=== PATIENT | male | born 1940 | race Caucasian/White ===

== ENCOUNTER 2022-11-05 07:51 | Outpatient (OUT) | payer MEDICARE, SELFPAY ==
[2022-11-05 08:14] LABS: Basophils Absolute Auto 0.1 10^3/uL (0.0-0.1); Basophils Percent Auto 0.8 % (0.2-2.0); Eosinophils Absolute Auto 0.4 10^3/uL (0.0-0.7); Eosinophils Percent Auto 5.4 % (0.9-7.0); Hemoglobin 12.1 g/dL (14.0-18.0); Immature Granulocytes Abs Auto 0.03 10^3/uL (0.00-0.03); Immature Granulocytes Pct Auto 0.4 % (0.0-0.5); Lymphocytes Percent Auto 26.7 % (20.5-60.0); Mean Corpuscular HGB Conc 33.6 g/dL (29.9-35.2); Mean Corpuscular Hemoglobin 31.4 pg (25.9-34.0); Mean Corpuscular Volume 93.5 fL (80.0-94.0); Monocytes Absolute Auto 0.6 10^3/uL (0.3-0.8); Monocytes Percent Auto 7.5 % (1.7-12.0); Neutrophils Absolute Auto 4.5 10^3/uL (1.4-6.5); Neutrophils Percent Auto 59.2 % (43.0-75.0); Platelet Count 178 10^3/uL (150-450); Red Blood Count 3.85 10^6/uL (4.70-6.10); Red Cell Distribution Width 13.2 % (11.0-15.0); White Blood Count 7.7 10^3/uL (4.0-11.0)
[2022-11-05 08:53] LABS: Creatinine Urine Random 271.12 mg/dL (20.00-300.00); Microalbum Creatinine Ratio Ur 33.9 mg/g (0.0-29.9); Microalbumin Urine Random 9.2 mg/dL (<=30.0)
[2022-11-05 09:01] LABS: Estimated Average Glucose 160 mg/dL; Glycohemoglobin A1C 7.2 % (4.5-6.2)
[2022-11-05 10:29] LABS: Alanine Aminotransferase 19 U/L (16-63); Albumin Level 3.6 g/dL (3.4-5.0); Alkaline Phosphatase 70 U/L (46-116); Aspartate Amino Transferase 19 U/L (15-37); BUN Creatinine Ratio 19.6; Bilirubin Total 0.5 mg/dL (0.2-1.0); Calcium 9.4 mg/dL (8.5-10.1); Carbon Dioxide 25.1 mmol/L (21.0-32.0); Chloride 105 mmol/L (98-107); Chol HDL Ratio 2.3; Cholesterol 154 mg/dL (<=200); Estimated GFR (African America 60 (>=60); Estimated GFR (Non-African Ame 49 (>=60); Globulin 3.7 g/dL; Glucose 183 mg/dL (74-106); HDL Cholesterol 66 mg/dL (40-60); Potassium 4.1 mmol/L (3.5-5.1); Sodium 140 mmol/L (136-145); Total Protein 7.3 g/dL (6.4-8.2); Triglycerides 126 mg/dL (<=150); VLDL CHOLESTEROL 25.2 mg/dL
== END 2022-11-05 07:52 ==
LOC: LAB 07:56
PROVIDERS: PCP Internal Medicine; Visit Provider Internal Medicine
DX: E11.69 Type 2 diabetes mellitus with other specified complication (principal); E78.5 Hyperlipidemia, unspecified; I10 Essential (primary) hypertension
CPT/HCPCS: 36415; 80053; 80061; 82043; 82570; 83036; 85025

== ENCOUNTER 2022-11-19 07:58 | Outpatient (OUT) | payer MEDICARE, SELFPAY ==
[2022-11-19 08:56] LABS: Erythrocyte Sedimentation Rate 15 mm/hr (<=20)
[2022-11-19 09:25] LABS: Thyroid Stimulating Hormone 1.196 uIU/mL (0.358-3.740)
[2022-11-19 09:27] LABS: C Reactive Protein <0.2 mg/dL (<=1.0)
[2022-11-20 05:07] LABS: HIV Ab/p24 Ag Screen Non Reactive (Non Reactive)
[2022-11-22 20:07] LABS: Calprotectin, Fecal 9 ug/g (0-120)
[2022-11-27 15:08] LABS: Ova + Parasite Exam Final report (.)
== END 2022-11-19 07:59 | disposition home or self-care (01) ==
LOC: LAB 07:59
PROVIDERS: PCP Internal Medicine
DX: R19.4 Change in bowel habit (principal)
CPT/HCPCS: 36415; 83993; 84443; 85652; 86140; 87045; 87046; 87177; 87209; 87389; 87427; 87493

== ENCOUNTER 2023-05-06 08:28 | Outpatient (OUT) | payer MEDICARE, SELFPAY ==
[2023-05-06 08:56] LABS: Basophils Absolute Auto 0.1 10^3/uL (0.0-0.1); Basophils Percent Auto 1.2 % (0.2-2.0); Eosinophils Absolute Auto 0.4 10^3/uL (0.0-0.7); Eosinophils Percent Auto 4.6 % (0.9-7.0); Hematocrit 37.3 % (42.0-54.0); Immature Granulocytes Abs Auto 0.04 10^3/uL (0.00-0.03); Immature Granulocytes Pct Auto 0.5 % (0.0-0.5); Lymphocytes Absolute Auto 2.3 10^3/uL (1.2-3.8); Mean Corpuscular HGB Conc 32.2 g/dL (29.9-35.2); Mean Corpuscular Hemoglobin 30.5 pg (25.9-34.0); Mean Corpuscular Volume 94.7 fL (80.0-94.0); Mean Platelet Volume 10.3 fL (9.5-13.5); Monocytes Absolute Auto 0.6 10^3/uL (0.3-0.8); Monocytes Percent Auto 7.3 % (1.7-12.0); Neutrophils Absolute Auto 4.5 10^3/uL (1.4-6.5); Neutrophils Percent Auto 57.4 % (43.0-75.0); Platelet Count 208 10^3/uL (150-450); Red Blood Count 3.94 10^6/uL (4.70-6.10); Red Cell Distribution Width 13.1 % (11.0-15.0); White Blood Count 7.8 10^3/uL (4.0-11.0)
[2023-05-06 09:13] LABS: Estimated Average Glucose 166 mg/dL; Glycohemoglobin A1C 7.4 % (4.5-6.2)
[2023-05-06 09:29] LABS: Alanine Aminotransferase 19 U/L (16-63); Albumin Globulin Ratio 1.1; Albumin Level 3.5 g/dL (3.4-5.0); Alkaline Phosphatase 73 U/L (46-116); Anion Gap 13.3; Aspartate Amino Transferase 16 U/L (15-37); Bilirubin Total 0.5 mg/dL (0.2-1.0); Calcium 8.5 mg/dL (8.5-10.1); Carbon Dioxide 27.9 mmol/L (21.0-32.0); Chloride 108 mmol/L (98-107); Chol HDL Ratio 2.4; Cholesterol 154 mg/dL (<=200); Estimated GFR (African America >60 (>=60); Estimated GFR (Non-African Ame 52 (>=60); Globulin 3.1 g/dL; Glucose 174 mg/dL (74-106); HDL Cholesterol 63 mg/dL (40-60); Potassium 4.2 mmol/L (3.5-5.1); Sodium 145 mmol/L (136-145); Thyroid Stimulating Hormone 1.148 uIU/mL (0.358-3.740); Total Protein 6.6 g/dL (6.4-8.2); Triglycerides 115 mg/dL (<=150)
== END 2023-05-06 08:29 | disposition home or self-care (01) ==
LOC: LAB 08:30
PROVIDERS: PCP Internal Medicine; Visit Provider Nurse Practitioner Adult Health
DX: C61 Malignant neoplasm of prostate (principal); N18.31 Chronic kidney disease, stage 3a; D50.9 Iron deficiency anemia, unspecified; I12.9 Hypertensive chronic kidney disease with stage 1 through stage 4 chronic kidney disease, or unspecified chronic kidney disease; E11.69 Type 2 diabetes mellitus with other specified complication
CPT/HCPCS: 36415; 80053; 80061; 83036; 84443; 85025; G0103

== ENCOUNTER 2023-05-06 08:31 | Outpatient (OUT) | payer MEDICARE, SELFPAY ==
[2023-05-06 10:02] LABS: Prostate Specific Antigen Scrn 0.57 ng/mL (<=4.00)
== END 2023-05-06 08:32 | disposition home or self-care (01) ==
PROVIDERS: PCP Internal Medicine
DX: C61 Malignant neoplasm of prostate (principal)
CPT/HCPCS: 36415; G0103

== ENCOUNTER 2023-06-14 14:06 | Outpatient (OUT) | payer MEDICARE, SELFPAY ==
[2023-06-14 15:06] LABS: Prostate Specific Antigen Dx 0.81 ng/mL (<=4.00)
== END 2023-06-14 14:07 | disposition home or self-care (01) ==
LOC: LAB 14:10
PROVIDERS: PCP Internal Medicine
DX: C61 Malignant neoplasm of prostate (principal)
CPT/HCPCS: 36415; 84153

== ENCOUNTER 2023-09-29 16:34 | Emergency (ER) | payer MEDICARE, SELFPAY ==
[2023-09-29] VITALS (16 sets, daily range): BP systolic 179; BP diastolic 99; PULSE 55–92; TEMP 36.7; O2SAT 92–98; BMI 23.7
--- OUTSIDE RECORDS SUMMARY | 2023-09-29 16:49 | XMS_ITS | CCD ---
Author Organization [facility] Care Team Providers Care Slasher Name Role Phone Gabriel Bello Primary Care Provider Ryan Negron Attending Provider Gabriel Bello Unavailable Unavailable Unavailable DO Gabriel Bello Primary Care Provider DO Juan Ventura Attending Provider Dr. Gabriel Bello [facility] Primary Care Unabambii ramani Camp II, Dr. Dev Black Attending Unavailable [facility], Dr. Dev Balck Referring Unavailable MISC, DR SHERIFF Attending Unavailable MISC, DR SHERIFF Consulting Unavailable MISC, DR SHERIFF Admitting Unavailable DR GABRIEL BELLO Primary Care Unavailable DR GABRIEL BELLO Primary Care Unavailable DR GABRIEL BELLO Admitting Unavailable DR GABRIEL BELLO Attending Unavailable DR GABRIEL BELLO Consulting Unavailable DR GABRIEL BELLO Primary Care Unavailable MISC, DR SHERIFF Admitting Unavailable MISC, DR SHERIFF Attending Unavailable MISC, DR SHERIFF Consulting Unavailable DR GABRIEL BELLO Primary Care Unavailable DR GABRIEL BELLO Admitting Unavailable DR GABRIEL BELLO Attending Unavailable DR GABRIEL BELLO Consulting Unavailable DR GABRIEL BELLO Admitting Unavailable DR GABRIEL BELLO Attending Unavailable DR GABRIEL BELLO Consulting Unavailable DR GABRIEL BELLO Primary Care Unavailable Jj Garcia Unavailable DO Gabriel Bello Primary Care Provider MD Jj Garcia Attending Provider CHRIS PATEL Attending Unavailable LAURA BARROW Attending Unavailable GABRIEL BELLO Attending Unavailable Gabriel Bello DO Primary Care Provider DEV CAMP Attending Unavailable GABRIEL BELLO Primary Care Unavailable DO Gabriel Bello Primary Care Provider NON STAFF Attending Provider Unavailable Asaad, Imad Attending Unavailable Gabriel Bello Primary Care Unavailable Asaad, Imad Admitting Unavailable Miller Donald Admitting Unavailable Miller Donald Attending Unavailable Gabriel Bello Primary Care Unavailable Asaad, Imad Admitting Unavailable Asaad, Imad Attending Unavailable Gabriel Bello Primary Care Unavailable Unavailable Unavailable Unavailable Allergies Allergy Classification Reported Allergen(s) Allergy Type Date of Onset Reaction(s) Facility (4 sources) Sulfonamides (Antibiotic); Translations: [Sulfa Drugs] Allergy to drug (finding) [facility] 250 DO Work Phone: (5 sources) Sulfonamides (Antibiotic); Translations: [SULFA (SULFONAMIDE ANTIBIOTICS)] Allergy to substance 2 [facility] (1 source) Sulfonamides (Antibiotic) Drug allergy (disorder) [facility] (2 sources) Substance with sulfonamide structure and antibacterial mechanism of action (substance) Drug allergy Unknown [facility] [employer] Other Medications Current Medications Medication Drug Class(es) Dates Sig (Normalized) Sig (Original) amylase 160675 unt / lipase 97003 unt / protease 95211 unt delayed release oral capsule (3 sources) Start: 11-17-2022 take 1 capsule by mouth three times daily at mealtime uuyavi-krtvqixc-vk ylase (Creon) 24,000-76,000 -120,000 unit capsule Take 1 capsule by mouth 3 times a day with meals. 0 11/17/2022 Active Start: 11-17-2022 Creon 90761-19 000 UNIT 1 with each meal Orally daily for 30 days Oct, Active ascorbic acid 500 mg oral capsule (4 sources) Vitamin C take 1 capsule by mouth once daily ascorbic acid, vitamin C, 500 mg capsule Take 1 capsule by mouth once daily. 0 Active atorvastatin 10 mg oral tablet (9 sources) HMG-CoA Reductase Inhibitor Start: 2 take 10 mg by mouth once daily at bedtime Atorvastatin Active 10 MG PO Daily at bedtime December 05, 2021 12:00am Start: 07-03-2020 take 0.5 tablet by m outh once daily atorvastatin (Lipitor) 20 mg tablet Take 0.5 tablets (10 mg) by mouth once daily. 0 07/03/2020 Active Atorvastatin Andrea cium 20 MG Oral for 90 Days Active Bacillus coagulans / Inulin (1 source) End: 07-13-2023 take 1 capsule by mouth once daily BACILLUS COAGULANS-INULIN ORAL Take 1 capsule by mouth once daily. 0 07/13/2023 Discontinued (Therapy completed) cholecalciferol 0.05 mg oral tablet (7 sources) Vitamin D Start: 12-05-2021 take 1 tablet by mouth three times weekly Cholecalciferol (Vitamin D3) (Vitamin D3) 50 mcg (2,000 unit) Tablet Active 50 MCG PO 3 Times a week December 05, 2021 12:00am take 1 capsule by mouth once aristides ly cholecalciferol (Vitamin D-3) 25 MCG (1000 UT) capsule Take 1 capsule (25 mcg) by mouth once daily. 0 Active dicyclomine hydrochloride 10 mg oral capsule (6 sources) Anticholinergic Start: 11-13-2020 take 1 capsule by mouth once daily dicyclomine (Bentyl) 10 mg capsule Take 1 capsule (10 mg) by mouth once daily. 0 11/13/2020 Active fluorouracil 50 mg/ml topical cream (2 sources) Nucleoside Metabolic Inhibitor Efudex 5 % 1 application Externally Twice a day Active lisinopril 20 mg oral tablet (9 sources) Angiotensin Converting Enzyme Inhibitor Start: 02-11-2021 take 20 mg by mouth once daily at bedtime Lisinopril Active 20 MG PO Daily at bedtime December 05, 2021 12:00am metFORMIN hydrochloride 500 mg oral tablet (6 sources) Biguanide Start: 07-05-2020 take 1 tablet by mouth once daily metFORMIN (Glucophage) 500 mg tablet Take 1 tablet (500 mg) by mouth once daily. 0 07/05/2020 Active 24 hr metoprolol succinate 50 mg extended release oral tablet (10 sources) beta-Adrenergic Allyn Start: 07-13-2023 End: 07-12-2024 take 1 tablet by mouth once daily metoprolol succinate XL (Toprol-XL) 50 mg 24 hr tablet Indications: Paroxysmal atrial fibrillation (CMS/HCC) Take 1 tablet (50 mg) by mouth once daily. Do not crush or chew. 90 tablet 3 07/13/2023 07/12/2024 Active Start: 02-24-2021 End: 07-13-2023 take 100 mg by mouth once daily in the morning Metoprolol Succinate Active 100 MG PO Every morning December 05, 2021 12:00am mirtazapine 15 mg oral tablet (9 sources) Start: 05-14-2021 take 15 mg by mouth once daily at bedtime Mirtazapine Active 15 MG PO Daily at bedtime December 05, 2021 12:00am polyethylene glycol 3350 981342 mg / potassium chloride 2970 mg / sodium bicarbonate 6740 mg / sodium chloride 5860 mg / sodium sulfate 91046 mg powder for oral solution (2 sources) Osmotic Laxative Start: 11-17-2022 take 236 g by mouth once Golytely 236 GM as directed Orally once for 1 days Oct, Active rivaroxaban 20 mg oral tablet (10 sources) Factor Xa Inhibitor Start: 03-05-2021 End: 05-27-2024 take 1 tablet by mouth once daily rivaroxaban (Xarelto) 20 mg tablet Indications: Paroxysmal atrial fibrillation (CMS/HCC) Take 1 tablet (20 mg) by mouth once daily. 90 tablet 3 05/28/2023 05/27/2024 Active vit A/vit C/vit E/zinc/copper (ICAPS AREDS ORAL) (1 source) vit A/vit C/vit E/zinc/copper (ICAPS AREDS ORAL) Take 1 tablet by mouth see administration instructions. 0 Active Vit C,Z-Td-Dlapz-Lutein -Zeaxan (Preservision Areds-2) 250-90-40-1 mg Capsule (3 sources) Start: 12-05-2021 Vit C,E-Gw-Fhclr-Lutein- Zeaxan (Preservision Areds-2) 250-90-40-1 mg Capsule Active 1 TAB PO Every morning December 05, 2021 12:47pm Start: 12-05-2021 Vit C,E-Zn-Harpoon Engagement Planning Operator am-Iwdcwb-Dlowqv (Preservision Areds-2) 250-90-40-1 mg Capsule Active 1 TAB PO Every morning December 05, 2021 12:00am vitamin b12 1 mg oral tablet (3 sources) Vitamin B12 take 1 tablet by mouth once daily cyanocobalamin (Vitamin B-12) 1,000 mcg tablet Take 1 tablet (1,000 mcg) by mouth once daily. 0 Active Completed/Discontinued Medications Medication Drug Class(es) Dates Sig (Normalized) Sig (Original) acetaminophen 325 mg / HYDROcodone bitartrate 5 mg oral tablet (2 sources) Opioid Agonist Start: 12-08-2021 End: 12-24-2022 take 1 tablet by mouth every eight hours Hydrocodone-Acetam inophen Discontinued 1 TAB PO Q8H 14 December 08, 2021 December 24, 2022 11:27am ascorbic acid 226 mg / beta carotene 86715 unt / cuprous oxide 0.8 mg / dl-alpha tocopheryl acetate 200 unt / zinc oxide 34.8 mg oral capsule (3 sources) Vitamin C PreserVision ARE DS Oral Capsule TAKE DIRECTED. Quantity: 0 Refills: 0 Ordered: 03-Jul-2021 DO Active cephalexin 500 mg oral capsule (5 sources) Cephalosporin Antibacterial Start: 12-08-2021 End: 12-24-2022 take 500 mg by mouth every eight hours Cephalexin Discontinued 500 MG PO Q8H 21 December 08, 2021 12:00am December 24, 2022 11:26am Start: 12-05-2021 End: 12-24-2022 take 500 mg by mouth twice daily Cephalexin Discontinued 500 MG PO Twice daily December 05, 2021 12:00am December 24, 2022 11:26am Probiotic CAPS (2 sources) Probiotic CAPS T DONYA 1 CAPSULE Daily Quantity: 0 Refills: 0 Ordered: 03-Jul-2021 DO Active Problems Active Problems Problem Classification Problem Date Documented Da te Episodic/Chronic Abdominal pain (1 source) Left lower quadrant abdominal tenderness; Translations: [LLQ ABDOMINAL TENDERNESS] Onset: 09-09-2022 Episodic Cancer of prostate (5 sources) Malignant neoplasm of prostate; Translations: [MALIGNANT NEOPLASM OF PROSTATE] Onset: 05-25-2022 Chronic Cardiac dysrhythmias (16 sources) Paroxysmal atrial fibrillation; Translations: [Atrial fibrillation] Onset: 05-06-2022 Chronic Chronic kidney disease (2 sources) Chronic kidney disease stage 3A ; Translations: [Stage 3a chronic kidney disease] Chronic Deficiency and other anemia (1 source) Anemia, unspecified; Translations: [ANEMIA UNSPECIFIED] Onset: 09-09-2022 Episodic Deficiency and other anemia (2 sources) Anemia; Translations: [Anemia, unspecified] Episodic Diabetes mellitus with complications (5 sources) Type 2 diabetes mellitus with other specified complication; Translations: [TYPE 2 DM W/OTHER SPEC COMPLICATION] Onset: 05-10-2022 Chronic Diabetes mellitus without complication (4 sources) Diabetes mellitus; Translations: [Diabetes mellitus without mention of complication, type II or unspecified type, not stated as uncontrolled] Onset: 05-28-2023 05-28-2023 Chronic Disorders of lipid metabolism (10 sources) Hyperlipidemia; Translations: [Other and unspecified hyperlipidemia] Onset: 05-10-2022 07-13-2023 Chronic Diverticulosis and diverticulitis (4 sources) Diverticulosis of intestine, part unspecified, without perforation or abscess without bleeding; Translations: [Diverticular disease of colon] Onset: 09-09-2022 Chronic Essential hypertension (8 sources) Benign essential hypertension; Translations: [Benign essential hypertension] Onset: 05-10-2022 07-13-2023 Chronic Miscellaneous mental health disorders (2 sources) Acute insomnia; Translations: [Adjustment insomnia] Episodic Mood disorders (2 sources) Major depressive disorder, single episode, unspecified; Translations: [Depression] Chronic Other aftercare (6 sources) Drug therapy finding; Translations: [Long-term (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 of anticoagulants] Episodic Other gastrointestinal disorders (2 sources) Irritable bowel syndrome; Translations: [Irritable bowel syndrome without diarrhea] Chronic Other gastrointestinal disorders (1 source) Irritable bowel syndrome without diarrhea Chronic Other gastrointestinal disorders (1 source) Other fecal abnormalities; Translations: [OTHER FECAL ABNORMALITIES] Onset: 09-09-2022 Episodic Other gastrointestinal disorders (2 sources) Altered bowel function; Translations: [Change in bowel habit] Episodic Other nervous system disorders (2 sources) Postoperative pain ; Translations: [Other acute postprocedural pain] 12-08-2021 Episodic Other non-epithelial cancer of skin (6 sources) 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; Translations: [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] Episodic Other nutritional; endocrine; and metabolic disorders (2 sources) Fat pad syndrome; 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 Other nutritional; endocrine; and metabolic disorders (3 sources) Overweight; Translations: [Overweight] Episodic Residual codes; unclassified (3 sources) Body mass index 20-24 - normal; Translations: [Body Mass Index between 19-24, adult] Episodic Screening and history of mental health and substance abuse codes (4 sources) Ex-smoker; Translations: [Personal history of nicotine dependence] Onset: 07-13-2023 07-13-2023 Episodic Unclassified (1 source) Diarrhea, unspecified; Translations: [Diarrhea, unspecified] Onset: 12-24-2022 Past or Other Problems Problem Classification Problem Date Documented Da te Episodic/Chronic Other aftercare (1 source) Other correction (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; Translations: [OTH CARD ROOM MANAGER CURRENT DRUG THERAPY] Onset: 11-06-2021 Episodic Other gastrointestinal disorders (3 sources) Change in bowel habit; Translations: [CHANGE IN BOWEL HABIT] Onset: 09-09-2022 Episodic Pancreatic disorders (not diabetes) (2 sources) Other specified diseases of pancreas; Translations: [Other specified diseases of pancreas] Onset: 11-26-2022 Episodic Unclassified (3 sources) Never smoked tobacco; Translations: [Never a smoker] Unclassified (1 source) Onset: 07-13-2023 07-13-2023 Results Test Name Value Interpretation Reference Range Facility PET psma initial tx sb-mton 09-13-2023 PET psma initial tx sb-mt [facility] [place] [place] [address] Nuclear Medicine Report Signed Patient: Dev Walsh MR#: [id number] 906 : 1940 Acct:[id number] Age/Sex: 83 / M ADM Date: 09/13/23 Loc: Room: Type: [facility] Attending Dr: SYLWIA STAFF Copies to: NON STAFF Jordan Story II, MD Ordering Provider: NON STAFF Date of Service: 09/13/23 PET/PET psma initial tx sb-mt: PROSTATE CA PET psma initial tx sb-mt 09/13/2023 1:11 PM SIGNS AND SYMPTOMS: PROSTATE CA PROTOCOL: PET images were obtained from skull base to mid thigh after intravenous radiotracer administration. Low-dose CT images were obtained from skull base to mid thigh. After attenuation correction of PET images, fused PET CT images were generated and reconstructed in axial, sagittal, and coronal planes. COMPARISON: None. RADIOPHARMACEUTICAL: 10.32 mCi of intravenous fluorine 18 PSMA Pylarify FINDINGS: There is a focus of increased radiotracer accumulation within the posterior aspect of the left eighth rib. There is increased radiotracer accumulation focally within the posterior elements of the L3 vertebral body on the right probably affecting the facets. There is focal increased radiotracer accumulation within the L5 vertebral body laterally on the right. There is subtle abnormal radiotracer accumulation in the posterior right iliac spine. These lesions predominantly correspond to sclerotic foci seen on the low-dose CT. There is physiologic radiotracer accumulation in the salivary glands, liver, spleen, kidneys, bladder, and bowel. 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 These correspond to sclerotic foci seen on the low-dose CT. There is subtle abnormal radiotracer accumulation in the posterior right iliac spine. This may represent subtle metastatic disease. No accompanying sclerotic focus is identified. Impression dictated by: Jordan Story M.D.09/13/2023 3:20 PM Dictation Location: [place] [address] Transcribed By: [facility] 09/13/23 1520 Dictated By: Jordan Story II, MD 09/13/23 1515 Signed By: 09/13/23 1520 Normal [facility] ECG 12 [place] 07-13-2023 Sinus rhythm with frequent PVCs Otherwise normal EKG QTc 444 ms [facility] Work Phone: Joni 12-24-2022 L Specimen: [id number] Received: 12/24/22 Status: DEONDRE Lewis Num: [id number] Spec Type: Surgical Subm Dr: Jj Garcia MD Tissues: A Colon Biopsy (RANDOM COLON) B Colon Biopsy (ASCENDING POLYP) Procedures: HE/4, Gross/Micro L4/2 Age/ Patient Sex Location Account Attending Physician Dev Walsh /[facility] [id number] Jj Garcia MD SPEC NUM: [id number] RECD: 12/24/22 STATUS: DEONDRE MAC NUM: [id number] JARRET: 12/24/22- SUBM DR: Jj Garcia MD ENTERED: 12/24/22 [facility] DR: SPEC TYPE: Surgical DEPT: S ORDERED: HE/4, Gross/Micro L4/2 ORDERED: HE4, Gross/Micro L4/2 Pathological Diagnosis A. Colon, random biopsy: - Colonic mucosa within normal limits - No evidence of microscopic colitis identified B. Colon, ascending, polyp, biopsy: - Inflamed hyperplastic polyp (inflammatory polyp) Clinical Information Change in bowel habits, rule out microscopic colitis Gross Description A. Received in formalin labeled with the patient's name, date of and random colon are two leonardo tissues averaging 0.4 x 0.2 x 0.2 cm. Entirely submitted in one cassette labeled A1. B. Received in formalin labeled with the patient's name, date of and ascending polyp is one leonardo tissue measuring 0.3 x 0.3 x 0.1 cm. Entirely submitted in one cassette labeled B1. Specimen: [id number] Received: 12/24/22 Status: DEONDRE Lewis Num: [id number] Spec Type: Surgical Subm Dr: Jj Garcia MD Tissues: A Colon Biopsy (RANDOM COLON) B Colon Biopsy (ASCENDING POLYP) Procedures: HE/4, Gross/Micro L4/2 Patient: Dev Walsh [id number] (Continued) Specimen: [id number] Received: 12/24/22 (Continued) Signed (signature on file) Natan Davidson MD 12/29/22 1658 Specimen: [id number] Received: 12/24/22 Status: DEONDRE Lewis Num: [id number] Spec Type: Surgical Subm Dr: Jj Garcia MD Tissues: A Colon Biopsy (RANDOM COLON) B Colon Biopsy (ASCENDING POLYP) Procedures: HE/Catherine, Gross/Micro L4/2 Patient: Dev Walsh [id number] (Continued) Specimen: [id number] Received: 12/24/22 (Continued) Microscopic Description A. Two H E slides reviewed. The microscopic examination confirms the diagnosis. B. Two H E slides reviewed. The microscopic examination confirms the diagnosis. CPT Codes 36732s5 Specimen: [id number] Received: 12/24/22 Status: DEONDRE Lewis Num: [id number] Spec Type: Surgical Subm Dr: Jj Garcia MD Tissues: A Colon Biopsy (RANDOM COLON) B Colon Biopsy (ASCENDING POLYP) Procedures: HEATHER/Catherine, Gross/Micro L4/2 Patient: Dev Walsh [id number] (Continued) Signed (signature on file) Natan Davidson MD 12/29/22 4046 Normal [facility] Blood Urea Nitrogenon 2022 Urea nitrogen [Mass/Vol] 31 mg/dL High 7-25 [facility] Comment on above: Order Comment: Reaso n for Exam Change in bowel habits Performed By: #### T MICHAEL CORREIA CREAT #### [facility] [address] [place], [place] [id number] [facility] C reactive protein [Mass/vol ume] in Serum or PlasmaOrdered By: Jj Garcia on 11-26-2022 CRP [Mass/Vol] < 0.5 mg/dL 0.0-0.5 [facility] C-Reactive Proteinon 023 CRP [Mass/Vol] mg/L Normal 0.0-0.5 [facility] Comment on above: Order Comment: Reaso n for Exam Change in bowel habits Result Comment: PERF ORMED BY: [place] [address] PATHOLOGIST CAT WAGON OPERATOR WILMA MANTILLA M.D. Performed By: #### C RP, ESR #### [address] #### HIV SCREEN #### [facility] , CT abdomen pelvis w conon CT abdomen pelvis w con [facility] Main [place] [address] [place] [address] CT Scan Report Signed Patient: Dev Walsh MR#: [id number] 906 : 1940 Acct:[id number] Age/Sex: 82 / M ADM Date: 11/26/22 Loc: [place] Room: Type: [facility] Attending Dr: Jj Garcia MD Copies to: Jj Garcia MD Ordering Provider: Jj Garcia MD Date of Service: 11/26/22 CT/CT abdomen pelvis w con: Pancreatic insufficiency CT ABDOMEN AND PELVIS WITH INTRAVENOUS CONTRAST: CLINICAL HISTORY: Pancreatic insufficiency. COMPARISON: None TECHNIQUE: Spiral images were obtained through the abdomen and pelvis following the administration of intravenous contrast. This CT exam was performed using one or more following dose reduction techniques: Automated exposure control, adjustment of the mA and/or kV according to patient size, or use of iterative reconstruction technique. FINDINGS: Lung Bases: [Bibasilar scarring.] Organs:Liver and splenic granulomas. Gallbladder portal vein adrenal glands appear unremarkable. Pancreas appears atrophic without focal abnormality or evidence of acute pancreatitis. Cystic changes right kidney. Left kidney appears grossly unremarkable. Abdominal aorta is normal in caliber. GI: Stomach is grossly unremarkable. Small bowel appears nondilated. Sigmoid diverticulosis.[ Pelvis:[Prostatectom y changes. Urinary bladder is grossly unremarkable.] Streak artifact from a penile appliance is seen. Peritoneum/Retroperi toneum:No free air, free fluid or lymphadenopathy.[ Abd wall/Bones:Abdominal wall[demonstrates no acute findings. Osseous structures demonstrate degenerative change. CT/CT abdomen pelvis w con IMPRESSION: No acute findings. No suspicious pancreatic lesion is seen. Impression dictated by: Jered Mandujano Jr., DCassidyOCassidy11/26/2022 7:19 PM Dictation Location: [place] [address] Transcribed By: [facility] 11/26/221918 Dictated By: Jered Mandujano Jr, DO 11/26/221906 Signed By: 11/26/221918 Normal [facility] Creatinineon 11-26-2022 Creatinine [Mass/Vol] 1.55 mg/dL High 0.70-1.30 [facility] Comment on above: Order Comment: Reaso n for Exam Change in bowel habits Performed By: #### T SH3, BUN, CREAT #### [facility] [address] GFR/1.73 sq M.predicted MDRD (S/P/Bld) [Vol rate/Area] 43.863 mL/min/{1.73_m2} Normal [facility] Comment on above: Order Comment: Reaso n for Exam Change in bowel habits Performed By: #### T SH3, BUN, CREAT #### [facility] [address] [place] [address] Creatinine [Mass/volume] in Serum or PlasmaOrdered By: Gabriel Bello on 11-26-2022 Creatinine [Mass/Vol] 1.55 mg/dL 0.70-1.30 [facility] Erythrocyte Sedimentation Ra juli 11-26-2022 ESR (Bld) [Velocity] 18 mm/h Normal 0-19 [facility] Comment on above: Order Comment: Reaso n for Exam Change in bowel habits Result Comment: PERF ORMED BY: [place] [address] PATHOLOGIST CAT WAGON OPERATOR WILMA MANTILLA M.D. Performed By: #### C RP, ESR #### [address] #### HIV SCREEN #### [facility] , Erythrocyte sedimentation ra te by Photometric methodOrdered By: Jj Garcia on 11-26-2022 ESR Photometric method (Bld) [Velocity] 18 mm/hr 0-19 [facility] HIV 1/O/2 Antigen/Antibodyon 11-26-2022 HIV Screen 4th Generation Non-Reactive Normal Non Reactive [facility] Comment on above: Order Comment: Reaso n for Exam Change in bowel habits Result Comment: HIV Negative HIV-1/HIV-2 antibodies and HIV-1 p24 antigen were NOT detected. There is no laboratory evidence of HIV infection. Performed at: [facility] [id number] Brand Director: Miguel Cullen PhD, Phone: [phone] PERFORMED BY: [place] [address] PATHOLOGIST CAT WAGON OPERATOR WILMA MANTILLA M.D. Performed By: #### C RP, ESR #### [address] #### HIV SCREEN #### [facility] , No Panel InformationOrdered By: Gabriel Bello on 11-26-2022 Estimated GFR (CKD-EPI) 43.863 mL/Min [facility] Creatinine Clearance (Chem N/A [facility] Thyroid Stimulating Hormoneo n 11-26-2022 TSH Qn 1.23 m[IU]/L Normal 0.45-5.33 [facility] Comment on above: Order Comment: Reaso n for Exam Change in bowel habits Result Comment: PERF ORMED BY: [place] [address] PATHOLOGIST CAT WAGON OPERATOR WILMA MANTILLA M.D. Performed By: #### T SH3, BUN, CREAT #### [address] Thyrotropin [Units/volume] i n Serum or PlasmaOrdered By: Jj Garcia on 11-26-2022 TSH Qn 1.23 m[IU]/L 0.45-5.33 [facility] Urea nitrogen [Mass/volume] in Serum or PlasmaOrdered By: Gabriel Bello on 11-26-2022 Urea nitrogen [Mass/Vol] 31 mg/dL 7-25 [facility] PANCREATIC ELASTASE FECALon 09-08-2022 Pancreatic Elastase, Fecal 86 ug Elast./g Critically low >200 [facility] Comment on above: Result Comment: Re sults verified by repeat testing Severe Pancreatic Insufficiency: <100 Moderate Pancreatic Insufficiency: 100 - 200 Normal: >200 Performed By: #### L IPID, TSH, CMP #### [facility] [address] [place] [address] Dr. Leesa Urbina CELIAC ANTIBODIES PROFILEon 09-04-2022 Deamidated Gliadin Abs, IgA 8 units Normal 0-19 [facility] Comment on above: Result Comment: Nega tive 0 - 19 Weak Positive 20 - 30 Moderate to Strong Positive >30 Performed By: #### C ELIACP #### [facility] [address] [address] [address] Leesa Urbina Deamidated Gliadin Abs, IgG 4 units Normal 0-19 [facility] Comment on above: Result Comment: Nega tive 0 - 19 Weak Positive 20 - 30 Moderate to Strong Positive >30 Performed By: #### C ELIACP #### [facility] [address] [address] [address] Leesa Urbina Endomysial Antibody IgA Negative Normal Negative [facility] Comment on above: Performed By: #### C ELIACP #### [facility] [address] [address] [address] Leesa Urbina Immunoglobulin A, Qn, Serum 143 mg/dL Normal 61-437 [facility] Comment on above: Performed By: #### C ELIACP #### [facility] [address] [address] [address] Leesa Urbina t-Transglutaminase (tTG) IgA <2 Normal 0-3 [facility] Comment on above: Result Comment: Nega tive 0 - 3 Weak Positive 4 - 10 Positive >10 . Tissue Transglutaminase (tTG) has been identified as the endomysial antigen. Studies have demonstr- ated that endomysial IgA antibodies have over 99% specificity for gluten sensitive enteropathy. Performed By: #### C ELIACP #### [facility] [address] [place] [address] Dr. Leesa Urbina t-Transglutaminase (tTG) IgG 6 U/mL Critically high 0-5 [facility] Comment on above: Result Comment: Nega tive 0 - 5 Weak Positive 6 - 9 Positive >9 Performed By: #### C ELIACP #### [facility] [address] [place] [address] Dr. Leesa Urbina CBC AUTO DIFFon 09-03-2022 BASO # 0.1 103/ul Normal 0.0-0.1 [facility] Comment on above: Performed By: #### L IPID, TSH, CMP #### [facility] [address] [place] [address] Dr. Leesa Urbina Basophils/100 WBC (Bld) 1.1 % Normal 0.2-2.0 [facility] Comment on above: Performed By: #### L IPID, TSH, CMP #### [facility] [address] [place] [address] Dr. Leesa Urbina EO # 0.6 103/ul Normal 0.0-0.7 [facility] Comment on above: Performed By: #### L IPID, TSH, CMP #### [facility] [address] [place] [address] Dr. Leesa Urbina Eosinophils/100 WBC (Bld) 7.9 % Critically high 0.9-7.0 [facility] Comment on above: Performed By: #### L IPID, TSH, CMP #### [facility] [address] [place] [address] Dr. Leesa Urbina Erythrocyte distribution width (RBC) [Ratio] 13.6 % Normal 11.0-15.0 [facility] Comment on above: Performed By: #### L IPID, TSH, CMP #### [facility] [address] [address] [address] Leesa Urbina Hematocrit (Bld) [Volume fraction] 34.4 % Critically low 42.0-54.0 [facility] Comment on above: Performed By: #### L IPID, TSH, CMP #### [facility] [address] [place] [address] Dr. Leesa Urbina Hemoglobin (Bld) [Mass/Vol] 11.4 g/dL Critically low 14.0-18.0 [facility] Comment on above: Performed By: #### L IPID, TSH, CMP #### [facility] [address] [place] [address] Dr. Leesa Urbina IG # 0.02 10e3/ul Normal 0.00-0.03 [facility] Comment on above: Performed By: #### L IPID, TSH, CMP #### [facility] [address] [place] [address] Dr. Leesa Urbina IG % 0.3 % Normal 0.0-0.5 [facility] Comment on above: Performed By: #### L IPID, TSH, CMP #### [facility] [address] [place] [address] Dr. Leesa Urbina LYMPH # 2.1 103/ul Normal 1.2-3.8 [facility] Comment on above: Performed By: #### L IPID, TSH, CMP #### [facility] [address] [place] [address] Dr. Leesa Urbina Lymphocytes/100 WBC (Bld) 28.1 % Normal 20.5-60.0 [facility] Comment on above: Performed By: #### L IPID, TSH, CMP #### [facility] [address] [place] [address] Dr. Leesa Urbina MANUAL DIFF REQ NO Normal [facility] Comment on above: Performed By: #### L IPID, TSH, CMP #### [facility] [address] [place] [address] Dr. Leesa Urbina MCH (RBC) [Entitic mass] 31.1 pg Normal 25.9-34.0 [facility] Comment on above: Performed By: #### L IPID, TSH, CMP #### [facility] [address] [place] [address] Dr. Leesa Urbina MCHC (RBC) [Mass/Vol] 33.1 g/dL Normal 29.9-35.2 [facility] Comment on above: Performed By: #### L IPID, TSH, CMP #### [facility] [address] [place] [address] Dr. Leesa Urbina MCV (RBC) [Entitic vol] 93.7 fL Normal 80.0-94.0 [facility] Comment on above: Performed By: #### L IPID, TSH, CMP #### [facility] [address] [place] [address] Dr. Leesa Urbina MONO # 0.4 103/ul Normal 0.3-0.8 [facility] Comment on above: Performed By: #### L IPID, TSH, CMP #### [facility] [address] [place] [address] Dr. Leesa Urbina Monocytes/100 WBC (Bld) 6.0 % Normal 1.7-12.0 [facility] Comment on above: Performed By: #### L IPID, TSH, CMP #### [facility] [address] [place] [address] Dr. Leesa Urbina NEUT # 4.2 103/ul Normal 1.4-6.5 [facility] Comment on above: Performed By: #### L IPID, TSH, CMP #### [facility] [address] [place] [address] Dr. Leesa Urbina Neutrophils/100 WBC (Bld) 56.6 % Normal 43.0-75.0 [facility] Comment on above: Performed By: #### L IPID, TSH, CMP #### [facility] [address] [place] [address] Dr. Leesa Urbina Platelet mean volume (Bld) [Entitic vol] 10.1 fL Normal 9.5-13.5 [facility] Comment on above: Performed By: #### L IPID, TSH, CMP #### [facility] [address] [address] [address] Leesa Urbina PLT 195 103/ul Normal 150-450 [facility] Comment on above: Performed By: #### L IPID, TSH, CMP #### [facility] [address] [address] [address] Leesa Urbina RBC 3.67 106/ul Critically low 4.70-6.10 [facility] Comment on above: Performed By: #### L IPID, TSH, CMP #### [facility] [address] [address] [address] Leesa Urbina WBC 7.3 103/ul Normal 4.0-11.0 [facility] Comment on above: Performed By: #### L IPID, TSH, CMP #### [facility] [address] [place] [address] Dr. Leesa Urbina FERRITINon 09-03-2022 Ferritin [Mass/Vol] 44.0 ng/mL Normal 26.0-388.0 [facility] Comment on above: Performed By: #### F ERR, FETIBC #### [facility] [address] [address] [address] Leesa Urbina IRON AND TIBCon 09-03-2022 % SATURATION 23.5 % Normal [facility] Comment on above: Performed By: #### F ERR, FETIBC #### [facility] [address] [address] [address] Leesa Urbina Iron [Mass/Vol] 69.0 ug/dL Normal 65.0-175.0 [facility] Comment on above: Performed By: #### F ERR, FETIBC #### [facility] [address] [address] [address] Leesa Urbina TIBC DIRECT 294.0 ug/dL Normal 250.0-450.0 [facility] Comment on above: Performed By: #### F ERR, FETIBC #### [facility] [address] [address] [address] Leesa Urbina Office Visit (Cardiology)on 07-14-2022 Follow-up visit Diagnoses/Problems Assessed Anticoagulated (V58.61) (Z79.01) Benign essential hypertension (401.1) (I10) Hyperlipidemia (272.4) (E78.5) Paroxysmal atrial fibrillation (427.31) (I48.0) Diabetes mellitus (250.00) (E11.9) Body mass index (BMI) of 24.0 to 24.9 in adult (V85.1) (Z68.24) Never a smoker Orders SocHx: Never a smoker Tobacco Use Screening; Status:Complete; Done: [id number] Patient Instructions Please bring all medicines, vitamins, and herbal supplements with you when you come to the office. Prescriptions will not be filled unless you are compliant with your follow up appointments or have a follow up appointment scheduled as per instruction of your physician. Refills should be requested at the time of your visit. Follow up in 1 year. Chief Complaint DEV WALSH is being seen for an annual follow-up of. History of Present Illness walks 2 to 3 miles a day Patient returns in follow-up of problems as noted. He is doing well. He tolerates his paroxysmal atrial fibrillation very well and has no complaints related to his chronic 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. Blood pressure lipids and cholesterol appear to be adequately managed. Merits of maintaining ideal body weight and is favorable impact on his diabetes as well as hypertension were discussed and reviewed with him and he understands the recommendations and will continue his diet and exercise routine which appears to be excellent. In light of all the above we believe no adjustments in therapy are necessary and we suggest follow-up next year Surgical History Problems History of Appendectomy History of Cataract surgery History of Colonoscopy [id number] Dr Jovanny Yu History of Lip surgery History of Prostatectomy Past Medical History Problems History of Overweight (278.02) (E66.3) Current Meds Medication NameInstruction Atorvastatin Calcium 20 MG Oral TabletTAKE 1/2 TABLET DAILY. Dicyclomine HCl - 10 MG Oral CapsuleTAKE 1 CAPSULE Daily prn Lisinopril 20 MG Oral TabletTAKE 1 TABLET DAILY FOR BLOOD PRESSURE. metFORMIN HCl - 500 MG Oral TabletTAKE 1 TABLET DAILY. Metoprolol Succinate ER 100 MG Oral Tablet Extended Release 24 HourTAKE 1 TABLET DAILY. Mirtazapine 15 MG Oral TabletTAKE 1 TABLET AT BEDTIME. PreserVision AREDS Oral CapsuleTAKE DIRECTED. Vitamin C 500 MG Oral CapsuleTAKE 1 CAPSULE Daily Vitamin D3 25 MCG (1000 UT) Oral CapsuleTAKE DIRECTED. Xarelto 20 MG Oral TabletTake 1 tablet daily Allergies Medication Sulfa Drugs Adverse Reaction; Hives;; Updated By: Conchita Cazares; 05/23/2021 11:25:15 PM Social History Problems Consumes alcohol occasionally (V49.89) (Z78.9) 2-3 drinks a month Daily caffeine consumption, 1 serving a day Never a smoker No illicit drug use Review of Systems Constitutional: not feeling tired. Eyes: no eyesight problems. ENT: no hearing loss and no nosebleeds. Cardiovascular: no intermittent leg claudication and as noted in HPI. Respiratory: no chronic cough and no shortness of breath. Gastrointestinal: no change in bowel habits and no blood in stools. Genitourinary: no urinary frequency and no hematuria. Skin: no skin rashes. Neurological: no seizures and no frequent falls. Psychiatric: no depression and not suicidal. All other systems have been reviewed and are negative for complaint. Vitals Vital Signs Recorded: [id number] 09:08AM Heart Rate68, L Radial Hasflhkx310, LUE, Sitting Pfaxfqtps18, LUE, Sitting Height5 ft 11 in Gyeqlo416 lb BMI Kntoqzqsix13.13 kg/m2 BSA Calculated1.98 Tobacco Useb) No PHQ-2 #1. Over the last 2 weeks have you felt down, depressed or hopeless? (If yes, answer PHQ-9 below)No PHQ-2 #2. Over the last 2 weeks have you felt little interest or pleasure in doing things? (If yes, answer PHQ-9 below)No Falls Screening (Age 18+)a) No falls within the last year Physical Exam Constitutional: alert and in no acute distress. Eyes: no erythema, swelling or discharge from the eye . Neck: neck is supple, symmetric, trachea midline, no masses and no thyromegaly . Pulmonary: no increased work of breathing or signs of respiratory distress and lungs clear to auscultation. Cardiovascular: carotid pulses 2+ bilaterally with no bruit , JVP was normal, no thrills , regular rhythm, normal S1 and S2, no murmurs , pedal pulses 2+ bilaterally and no edema . Abdomen: abdomen non-tender, no masses and no hepatomegaly . Skin: skin warm and dry, normal skin turgor . Psychiatric judgment and insight is normal and oriented to person, place and time . Signatures Electronically signed by : Dev Camp MD; Jul 14 2022 10:20AM EST (Author) Normal [employer] Tobacco Screening.on 023 Adult depression screening assessment No [facility] 250 DO Work Phone: Fall risk assessment a) No falls within the last year [facility] 250 DO Work Phone: Tobacco use status [facility] b) No [facility] 250 DO Work Phone: CBC AUTO DIFFon 05-06-2022 BASO # 0.1 103/ul Normal 0.0-0.1 [facility] Comment on above: Performed By: #### C BC #### [facility] [address] [place] [address] Dr. Leesa Urbina Basophils/100 WBC (Bld) 1.4 % Normal 0.2-2.0 [facility] Comment on above: Performed By: #### C BC #### [facility] [address] [place] [address] Dr. Leesa Urbina EO # 0.4 103/ul Normal 0.0-0.7 [facility] Comment on above: Performed By: #### C BC #### [facility] [address] [place] [address] Dr. Leesa Urbina Eosinophils/100 WBC (Bld) 5.4 % Normal 0.9-7.0 [facility] Comment on above: Performed By: #### C BC #### [facility] [address] [place] [address] Dr. Leesa Urbina Erythrocyte distribution width (RBC) [Ratio] 13.3 % Normal 11.0-15.0 [facility] Comment on above: Performed By: #### C BC #### [facility] [address] [place] [address] Dr. Leesa Urbina Hematocrit (Bld) [Volume fraction] 35.8 % Critically low 42.0-54.0 [facility] Comment on above: Performed By: #### C BC #### [facility] [address] [place] [address] Dr. Leesa Urbina Hemoglobin (Bld) [Mass/Vol] 12.0 g/dL Critically low 14.0-18.0 [facility] Comment on above: Performed By: #### C BC #### [facility] [address] [place] [address] Dr. Leesa Urbina IG # 0.01 10e3/ul Normal 0.00-0.03 [facility] Comment on above: Performed By: #### C BC #### [facility] [address] [place] [address] Dr. Leesa Urbina IG % 0.2 % Normal 0.0-0.5 [facility] Comment on above: Performed By: #### C BC #### [facility] [address] [place] [address] Dr. Leesa Urbina LYMPH # 1.7 103/ul Normal 1.2-3.8 [facility] Comment on above: Performed By: #### C BC #### [facility] [address] [place] [address] Dr. Leesa Urbina Lymphocytes/100 WBC (Bld) 26.1 % Normal 20.5-60.0 [facility] Comment on above: Performed By: #### C BC #### [facility] [address] [place] [address] Dr. Leesa Urbina MANUAL DIFF REQ NO Normal [facility] Comment on above: Performed By: #### C BC #### [facility] [address] [place] [address] Dr. Leesa Urbina MCH (RBC) [Entitic mass] 31.0 pg Normal 25.9-34.0 [facility] Comment on above: Performed By: #### C BC #### [facility] [address] [place] [address] Dr. Leesa Urbina MCHC (RBC) [Mass/Vol] 33.5 g/dL Normal 29.9-35.2 [facility] Comment on above: Performed By: #### C BC #### [facility] [address] [address] [address] Leesa Urbina MCV (RBC) [Entitic vol] 92.5 fL Normal 80.0-94.0 [facility] Comment on above: Performed By: #### C BC #### [facility] [address] [place] [address] Dr. Leesa Urbina MONO # 0.4 103/ul Normal 0.3-0.8 [facility] Comment on above: Performed By: #### C BC #### [facility] [address] [place] [address] Dr. Leesa Urbina Monocytes/100 WBC (Bld) 6.5 % Normal 1.7-12.0 [facility] Comment on above: Performed By: #### C BC #### [facility] [address] [place] [address] Dr. Leesa Urbina NEUT # 4.0 103/ul Normal 1.4-6.5 [facility] Comment on above: Performed By: #### C BC #### [facility] [address] [place] [address] Dr. Leesa Urbina Neutrophils/100 WBC (Bld) 60.4 % Normal 43.0-75.0 [facility] Comment on above: Performed By: #### C BC #### [facility] [address] [place] [address] Dr. Leesa Urbina Platelet mean volume (Bld) [Entitic vol] 10.6 fL Normal 9.5-13.5 [facility] Comment on above: Performed By: #### C BC #### [facility] [address] [place] [address] Dr. Leesa Urbina PLT 185 103/ul Normal 150-450 [facility] Comment on above: Performed By: #### C BC #### [facility] [address] [place] [address] Dr. Leesa Urbina RBC 3.87 106/ul Critically low 4.70-6.10 [facility] Comment on above: Performed By: #### C BC #### [facility] [address] [place] [address] Dr. Leesa Urbina WBC 6.6 103/ul Normal 4.0-11.0 [facility] Comment on above: Performed By: #### C BC #### [facility] [address] [address] [address] Leesa Urbina GLYCOHEMOGLOBIN A1Con 2021 ADA RECOMMENDATION SEE BELOW Normal [facility] Comment on above: Result Comment: ADA RECOMMENDED LIMIT 4.0 - 6.0 ADA THERAPEUTIC TARGET < 7.0 ACTION SUGGESTED > 7.0 Performed By: #### A 1C #### [facility] [address] [address] [address] Leesa Urbina Glucose [Mass/Vol] 151 mg/dL Normal [facility] Comment on above: Performed By: #### A 1C #### [facility] [address] [place] [address] Dr. Leesa Urbina HbA1c (Bld) [Mass fraction] 6.9 % Critically high 4.5-6.2 [facility] Comment on above: Performed By: #### A 1C #### [facility] [address] [place] [address] Dr. Leesa Urbina LIPID PROFILEon 05-06-2022 CHOL-HDL RATIO NORM SEE BELOW Normal [facility] Comment on above: Result Comment: 3.3 - 4.4 LOW RISK 4.4 - 7.1 AVERAGE RISK 7.1 - 11.0 MODERATE RISK >11.0 HIGH RISK Performed By: #### L IPID, TSH, CMP #### [facility] [address] [place] [address] Dr. Leesa Urbina Cholesterol [Mass/Vol] 136 mg/dL Normal <=200 [facility] Comment on above: Performed By: #### L IPID, TSH, CMP #### [facility] [address] [place] [address] Dr. Leesa Urbina Cholesterol in HDL [Mass/Vol] 62 mg/dL Critically high 40-60 [facility] Comment on above: Performed By: #### L IPID, TSH, CMP #### [facility] [address] [address] [address] Leesa Urbina Cholesterol in LDL [Mass/Vol] 53.0 mg/dL Normal [facility] Comment on above: Performed By: #### L IPID, TSH, CMP #### [facility] [address] [address] [address] Leesa Urbina Cholesterol.total/Chol esterol in HDL [Mass ratio] 2.2 {ratio} Normal [facility] Comment on above: Performed By: #### L IPID, TSH, CMP #### [facility] [address] [address] [address] Leesa Urbina HDL NORMAL > or = 60 mg/dl - LOW CARDIOVASCULAR RISK <40 mg/dl - HIGH CARDIOVASCULAR RISK Normal [facility] Comment on above: Performed By: #### L IPID, TSH, CMP #### [facility] [address] [place] [address] Dr. Leesa Urbina LDL CALC NORMAL SEE BELOW Normal [facility] Comment on above: Result Comment: <100 mg/dl OPTIMAL 100 - 129 mg/dl NEAR OR ABOVE OPTIMAL 130 - 159 mg/dl BORDERLINE HIGH 160 - 189 mg/dl HIGH >190 mg/dl VERY HIGH Performed By: #### L IPID, TSH, CMP #### [facility] [address] [address] [address] Leesa Urbina Triglyceride [Mass/Vol] 105 mg/dL Normal <=150 [facility] Comment on above: Performed By: #### L IPID, TSH, CMP #### [facility] [address] [address] [address] Leesa Urbina VLDL CALC 21.0 mg/dL Normal [facility] Comment on above: Performed By: #### L IPID, TSH, CMP #### [facility] [address] [address] [address] Leesa Urbina PROF 14(COMP METB)on 022 Albumin [Mass/Vol] 3.4 g/dL Normal 3.4-5.0 [facility] Comment on above: Performed By: #### L IPID, TSH, CMP #### [facility] [address] [address] [address] Leesa Urbina Albumin/Globulin [Mass ratio] 1.1 {ratio} Normal [facility] Comment on above: Performed By: #### L IPID, TSH, CMP #### [facility] [address] [place] [address] Dr. Leesa Urbina ALP [Catalytic activity/Vol] 77 U/L Normal 46-116 [facility] Comment on above: Performed By: #### L IPID, TSH, CMP #### [facility] [address] [place] [address] Dr. Leesa Urbina ALT [Catalytic activity/Vol] 12 U/L Critically low 16-63 [facility] Comment on above: Performed By: #### L IPID, TSH, CMP #### [facility] [address] [place] [address] Dr. Leesa Urbina Anion gap [Moles/Vol] 12.7 mmol/L Normal [facility] Comment on above: Performed By: #### L IPID, TSH, CMP #### [facility] [address] [place] [address] Dr. Leesa Urbina AST [Catalytic activity/Vol] 19 U/L Normal 15-37 [facility] Comment on above: Performed By: #### L IPID, TSH, CMP #### [facility] [address] [place] [address] Dr. Leesa Urbina Bilirubin [Mass/Vol] 0.4 mg/dL Normal 0.2-1.0 [facility] Comment on above: Performed By: #### L IPID, TSH, CMP #### [facility] [address] [place] [address] Dr. Leesa Urbina Calcium [Mass/Vol] 8.5 mg/dL Normal 8.5-10.1 [facility] Comment on above: Performed By: #### L IPID, TSH, CMP #### [facility] [address] [place] [address] Dr. Leesa Urbina Chloride [Moles/Vol] 107 mmol/L Normal 98-107 [facility] Comment on above: Performed By: #### L IPID, TSH, CMP #### [facility] [address] [place] [address] Dr. Leesa Urbina CO2 [Moles/Vol] 27.4 mmol/L Normal 21.0-32.0 [facility] Comment on above: Performed By: #### L IPID, TSH, CMP #### [facility] [address] [address] [address] Leesa Urbina Creatinine [Mass/Vol] 1.06 mg/dL Normal 0.70-1.30 [facility] Comment on above: Performed By: #### L IPID, TSH, CMP #### [facility] [address] [address] [address] Leesa Urbina EGFR-AF [place]ER >60 Normal >=60 [facility] Comment on above: Performed By: #### L IPID, TSH, CMP #### [facility] [address] [address] [address] Leesa Urbina EGFR-NON AF [place]ER >60 Normal >=60 [facility] Comment on above: Performed By: #### L IPID, TSH, CMP #### [facility] [address] [address] [address] Leesa Urbina Globulin (S) [Mass/Vol] 3.1 g/dL Normal [facility] Comment on above: Performed By: #### L IPID, TSH, CMP #### [facility] [address] [address] [address] Leesa Urbina Glucose [Mass/Vol] 171 mg/dL Critically high 74-106 [facility] Comment on above: Performed By: #### L IPID, TSH, CMP #### [facility] [address] [address] [address] Leesa Urbina Potassium [Moles/Vol] 4.1 mmol/L Normal 3.5-5.1 [facility] Comment on above: Performed By: #### L IPID, TSH, CMP #### [facility] [address] [address] [address] Leesa Urbina Protein [Mass/Vol] 6.5 g/dL Normal 6.4-8.2 [facility] Comment on above: Performed By: #### L IPID, TSH, CMP #### [facility] [address] [place], [place] [address] Dr. Leesa Urbina Sodium [Moles/Vol] 143 mmol/L Normal 136-145 [facility] Comment on above: Performed By: #### L IPID, TSH, CMP #### [facility] [address] [address] [address] Leesa Urbina Urea nitrogen [Mass/Vol] 24.0 mg/dL Critically high 7.0-18.0 [facility] Comment on above: Performed By: #### L IPID, TSH, CMP #### [facility] [address] [address] [address] Leesa Urbina Urea nitrogen/Creatinine [Mass ratio] 22.6 mg/mg Normal [facility] Comment on above: Performed By: #### L IPID, TSH, CMP #### [facility] [address] [address] [address] Leesa Urbina Basophils Auto (Bld) [#/Vol] Ordered By: Juan Ventura on 12-05-2021 Basophils (Bld) [#/Vol] 0.1 10*3/uL 0.0-0.2 [facility] Basophils/100 WBC Auto (Bld) Ordered By: Juan Ventura on 12-05-2021 Basophils/100 WBC (Bld) 0.9 % [facility] Blood hemoglobin measurement (mass/volume)Ordered By: Juan Ventura on 12-05-2021 Hemoglobin (Bld) [Mass/Vol] 12.4 g/dL 13.0-17.0 [facility] Blood leukocytes automated c ount (number/volume)Ordered By: Juna Ventura on 12-05-2021 WBC (Bld) [#/Vol] 7.0 10*3/uL 4.5-11.0 [facility] COVID-19 Positive/NegativeOr dered By: Juan Ventura on 12-05-2021 SARS-CoV-2 (COVID-19) N gene RENETTA+probe Ql (Resp) Negative Negative [facility] Comment on above: Testing for SARS-CoV -2 by RT-PCR This test was developed and its performance characteristics determined by [employer] ([employer]) and validated at the [facility]. This test has not been FDA cleared or approved. This test has been authorized by FDA under an Emergency Use Authorization (EUA). This test has been validated in accordance with the FDA's Guidance Document (Policy for Diagnostics Testing in Laboratories Certified to Perform High Complexity Testing under CLIA prior to Emergency Use Authorization for Coronavirus Disease-2019 during the Public Health Emergency) issued on August 24, 2019. This test is only authorized for the duration of time the declaration that circumstances exist justifying the authorization of the emergency use of in vitro diagnostic tests for detection of SARS-CoV-2 virus and/or diagnosis of COVID-19 infection under section 564(b)(1) of the Act, 21 U.S.C. 360bbb-3(b)(1), unless the authorization is terminated or revoked sooner. Creatinine and Glomerular fi ltration rate.predicted panel (S/P/Bld)Ordered By: Juan Ventura on 12-05-2021 Creatinine [Mass/Vol] 1.28 mg/dL 0.64-1.27 [facility] Eosinophils Auto (Bld) [#/Vo l]Ordered By: Juan Ventura on 12-05-2021 Eosinophils (Bld) [#/Vol] 0.1 10*3/uL 0.0-0.45 [facility] Eosinophils/100 WBC Auto (Bl d)Ordered By: Juan Ventura on 12-05-2021 Eosinophils/100 WBC (Bld) 2.1 % [facility] Erythrocyte distribution wid th Auto (RBC) [Ratio]Ordered By: Juan Ventura on 12-05-2021 Erythrocyte distribution width (RBC) [Ratio] 14.6 % 12.0-14.8 [facility] Estimated glomerular filtrat ion rate (GFR) non- AmericanOrdered By: Juan Ventura on 12-05-2021 GFR/1.73 sq M.predicted among non-blacks MDRD (S/P/Bld) [Vol rate/Area] 54 mL/Min [facility] Hematocrit Auto (Bld) [Volum e fraction]Ordered By: Juan Ventura on 12-05-2021 Hematocrit (Bld) [Volume fraction] 37.3 % 38.8-50.0 [facility] - Hematology and Cell countsOrdered By: Juan Ventura on 12-05-2021 Nucleated RBC/100 WBC (Bld) [Ratio] 0.0 % 0-0.5 [facility] Lymphocytes Auto (Bld) [#/Vo l]Ordered By: Juan Ventura on 12-05-2021 Lymphocytes (Bld) [#/Vol] 1.4 10*3/uL 1.00-4.8 [facility] Lymphocytes/100 WBC Auto (Bl d)Ordered By: Juan Ventura on 12-05-2021 Lymphocytes/100 WBC (Bld) 19.8 % [facility] MCH Auto (RBC) [Entitic mass ]Ordered By: Juan Ventura on 12-05-2021 MCH (RBC) [Entitic mass] 30.8 pg 27.5-35.2 [facility] MCHC Auto (RBC) [Mass/Vol]Or dered By: Juan Ventura on 12-05-2021 MCHC (RBC) [Mass/Vol] 33.1 g/dL 32.5-35.6 [facility] MCV Auto (RBC) [Entitic vol] Ordered By: Juan Ventura on 12-05-2021 MCV (RBC) [Entitic vol] 93.1 fL 83.5-101 [facility] Monocytes Auto (Bld) [#/Vol] Ordered By: Juan Ventura on 12-05-2021 Monocytes (Bld) [#/Vol] 0.5 10*3/uL 0.0-0.8 [facility] Monocytes/100 WBC Auto (Bld) Ordered By: Juan Ventura on 12-05-2021 Monocytes/100 WBC (Bld) 7.3 % [facility] Neutrophils Auto (Bld) [#/Vo l]Ordered By: Juan Ventura on 12-05-2021 Neutrophils (Bld) [#/Vol] 4.9 10*3/uL 1.8-7.7 [facility] Neutrophils/100 WBC Auto (Bl d)Ordered By: Juan Ventura on 12-05-2021 Neutrophils/100 WBC (Bld) 69.9 % [facility] No Panel InformationOrdered By: Juan Ventura on 12-05-2021 Estimated GFR () > 60 mL/Min [facility] Comment on above: GFR estimated refere nce range: According to KDOQI guidelines, <60 ml/min/1.73m2 is sufficient to diagnose a patient with chronic kidney disease. Pharmacy Creatinine Clearance (Chem N/A [facility] Platelet mean volume Auto (B ld) [Entitic vol]Ordered By: Juan Ventura on 12-05-2021 Platelet mean volume (Bld) [Entitic vol] 8.9 fL 6.6-10.1 [facility] Platelets Auto (Bld) [#/Vol] Ordered By: Juan Ventura on 12-05-2021 Platelets (Bld) [#/Vol] 194 10*3/uL 150-450 [facility] RBC Auto (Bld) [#/Vol]Ordere d By: Juan Ventura on 12-05-2021 RBC (Bld) [#/Vol] 4.00 10*6/uL 3.90-5.60 [facility] Serum or plasma calcium fco urement (mass/volume)Ordered By: Juan Ventura on 12-05-2021 Calcium [Mass/Vol] 9.2 mg/dL 8.2-10.2 [facility] Serum or plasma chloride daniel surement (moles/volume)Ordered By: Juan Ventura on 12-05-2021 Chloride [Moles/Vol] 107 mmol/L 95-114 [facility] Serum or plasma glucose fco urement (mass/volume)Ordered By: Juan Ventura on 12-05-2021 Glucose [Mass/Vol] 117 mg/dL 70-100 [facility] Comment on above: ADA recommended refe rence range Random Glucose Reference Range is dependent on time and content of last meal. Glucose of more than 200 mg/dL in a nonstressed, ambulatory subject supports the diagnosis of Diabetes Mellitus. Serum or plasma potassium me asurement (moles/volume)Ordered By: Juan Ventura on 12-05-2021 Potassium [Moles/Vol] 4.6 mmol/L 3.5-5.1 [facility] Serum or plasma sodium measu rement (moles/volume)Ordered By: Juan Ventura on 12-05-2021 Sodium [Moles/Vol] 141 mmol/L 136-146 [facility] Serum or plasma total carbon dioxide measurement (moles/volume)Ordered By: Juan Ventura on 12-05-2021 CO2 [Moles/Vol] 26.2 mmol/L 22.0-30.0 [facility] Serum or plasma urea nitroge n measurement (mass/volume)Ordered By: Juan Ventura on 12-05-2021 Urea nitrogen [Mass/Vol] 23 mg/dL 9- [facility] CBC AUTO DIFFon 11-05-2021 BASO # 0.1 103/ul Normal 0.0-0.1 [facility] Comment on above: Performed By: #### C BC #### [facility] [address] [place] [address] Dr. Leesa Urbina Basophils/100 WBC (Bld) 0.8 % Normal 0.2-2.0 [facility] Comment on above: Performed By: #### C BC #### [facility] [address] [place] [address] Dr. Leesa Urbina EO # 0.4 103/ul Normal 0.0-0.7 [facility] Comment on above: Performed By: #### C BC #### [facility] [address] [place] [address] Dr. Leesa Urbina Eosinophils/100 WBC (Bld) 5.6 % Normal 0.9-7.0 [facility] Comment on above: Performed By: #### C BC #### [facility] [address] [place] [address] Dr. Leesa Urbina Erythrocyte distribution width (RBC) [Ratio] 13.4 % Normal 11.0-15.0 [facility] Comment on above: Performed By: #### C BC #### [facility] [address] [place] [address] Dr. Leesa Urbina Hematocrit (Bld) [Volume fraction] 36.1 % Critically low 42.0-54.0 [facility] Comment on above: Performed By: #### C BC #### [facility] [address] [place] [address] Dr. Leesa Urbina Hemoglobin (Bld) [Mass/Vol] 11.8 g/dL Critically low 14.0-18.0 [facility] Comment on above: Performed By: #### C BC #### [facility] [address] [place] [address] Dr. Leesa Urbina IG # 0.02 10e3/ul Normal 0.00-0.03 [facility] Comment on above: Performed By: #### C BC #### [facility] [address] [place] [address] Dr. Leesa Urbina IG % 0.3 % Normal 0.0-0.5 [facility] Comment on above: Performed By: #### C BC #### [facility] [address] [place] [address] Dr. Leesa Urbina LYMPH # 1.8 103/ul Normal 1.2-3.8 [facility] Comment on above: Performed By: #### C BC #### [facility] [address] [place] [address] Dr. Leesa Urbina Lymphocytes/100 WBC (Bld) 28.4 % Normal 20.5-60.0 [facility] Comment on above: Performed By: #### C BC #### [facility] [address] [place] [address] Dr. Leesa Urbina MANUAL DIFF REQ NO Normal [facility] Comment on above: Performed By: #### C BC #### [facility] [address] [place] [address] Dr. Leesa Urbina MCH (RBC) [Entitic mass] 30.7 pg Normal 25.9-34.0 [facility] Comment on above: Performed By: #### C BC #### [facility] [address] [place] [address] Dr. Leesa Urbina MCHC (RBC) [Mass/Vol] 32.7 g/dL Normal 29.9-35.2 [facility] Comment on above: Performed By: #### C BC #### [facility] [address] [place] [address] Dr. Leesa Urbina MCV (RBC) [Entitic vol] 94.0 fL Normal 80.0-94.0 [facility] Comment on above: Performed By: #### C BC #### [facility] [address] [place] [address] Dr. Leesa Urbina MONO # 0.5 103/ul Normal 0.3-0.8 [facility] Comment on above: Performed By: #### C BC #### [facility] [address] [place] [address] Dr. Leeas Urbina Monocytes/100 WBC (Bld) 8.1 % Normal 1.7-12.0 [facility] Comment on above: Performed By: #### C BC #### [facility] [address] [place] [address] Dr. Leesa Urbina NEUT # 3.5 103/ul Normal 1.4-6.5 [facility] Comment on above: Performed By: #### C BC #### [facility] [address] [place] [address] Dr. Leesa Urbina Neutrophils/100 WBC (Bld) 56.8 % Normal 43.0-75.0 [facility] Comment on above: Performed By: #### C BC #### [facility] [address] [place] [address] Dr. Leesa Urbina Platelet mean volume (Bld) [Entitic vol] 10.3 fL Normal 9.5-13.5 [facility] Comment on above: Performed By: #### C BC #### [facility] [address] [place] [address] Dr. Leesa Urbina PLT 179 103/ul Normal 150-450 [facility] Comment on above: Performed By: #### C BC #### [facility] [address] [place] [address] Dr. Leesa Urbina RBC 3.84 106/ul Critically low 4.70-6.10 [facility] Comment on above: Performed By: #### C BC #### [facility] [address] [address] [address] Leesa Urbina WBC 6.2 103/ul Normal 4.0-11.0 [facility] Comment on above: Performed By: #### C BC #### [facility] [address] [address] [address] Leesa Urbina GLYCOHEMOGLOBIN A1Con 2021 ADA RECOMMENDATION SEE BELOW Normal [facility] Comment on above: Result Comment: ADA RECOMMENDED LIMIT 4.0 - 6.0 ADA THERAPEUTIC TARGET < 7.0 ACTION SUGGESTED > 7.0 Performed By: #### L IPID, TSH, CMP #### [facility] [address] [address] [address] Leesa Urbina Glucose [Mass/Vol] 151 mg/dL Normal [facility] Comment on above: Performed By: #### L IPID, TSH, CMP #### [facility] [address] [address] [address] Leesa Urbina HbA1c (Bld) [Mass fraction] 6.9 % Critically high 4.5-6.2 [facility] Comment on above: Performed By: #### L IPID, TSH, CMP #### [facility] [address] [address] [address] Leesa Urbina LIPID PROFILEon 11-05-2021 CHOL-HDL RATIO NORM SEE BELOW Normal [facility] Comment on above: Result Comment: 3.3 - 4.4 LOW RISK 4.4 - 7.1 AVERAGE RISK 7.1 - 11.0 MODERATE RISK >11.0 HIGH RISK Performed By: #### L IPID, TSH, CMP #### [facility] [address] [address] [address] Leesa Urbina Cholesterol [Mass/Vol] 150 mg/dL Normal <=200 [facility] Comment on above: Performed By: #### L IPID, TSH, CMP #### [facility] [address] [address] [address] Leesa Urbina Cholesterol in HDL [Mass/Vol] 60 mg/dL Normal 40-60 [facility] Comment on above: Performed By: #### L IPID, TSH, CMP #### [facility] [address] [address] [address] Leesa Urbina Cholesterol in LDL [Mass/Vol] 70.8 mg/dL Normal [facility] Comment on above: Performed By: #### L IPID, TSH, CMP #### [facility] [address] [address] [address] Leesa Urbina Cholesterol.total/Chol esterol in HDL [Mass ratio] 2.5 {ratio} Normal [facility] Comment on above: Performed By: #### L IPID, TSH, CMP #### [facility] [address] [address] [address] Leesa Urbina HDL NORMAL > or = 60 mg/dl - LOW CARDIOVASCULAR RISK <40 mg/dl - HIGH CARDIOVASCULAR RISK Normal [facility] Comment on above: Performed By: #### L IPID, TSH, CMP #### [facility] [address] [address] [address] Leesa Urbina LDL CALC NORMAL SEE BELOW Normal [facility] Comment on above: Result Comment: <100 mg/dl OPTIMAL 100 - 129 mg/dl NEAR OR ABOVE OPTIMAL 130 - 159 mg/dl BORDERLINE HIGH 160 - 189 mg/dl HIGH >190 mg/dl VERY HIGH Performed By: #### L IPID, TSH, CMP #### [facility] [address] [address] [address] Leesa Urbina Triglyceride [Mass/Vol] 96 mg/dL Normal <=150 [facility] Comment on above: Performed By: #### L IPID, TSH, CMP #### [facility] [address] [address] [address] Leesa Urbina VLDL CALC 19.2 mg/dL Normal [facility] Comment on above: Performed By: #### L IPID, TSH, CMP #### [facility] [address] [address] [address] Leesa Urbina MICROALB CREAT RATIO RANDOMo n 11-05-2021 mALB <1.3 Normal <=30.0 [facility] Comment on above: Performed By: #### L IPID, TSH, CMP #### [facility] [address] [address] [address] Leesa JOHNS CR RATIO 11.4 mg/g Normal 0.0-29.9 [facility] Comment on above: Performed By: #### L IPID, TSH, CMP #### [facility] [address] [address] [address] Leesa Urbina MALB CR RATIO RANGE SEE BELOW Normal [facility] Comment on above: Result Comment: NO M ICROALBUMINURIA 0-29 MG/G CLINICAL MICROALBUMINURIA 30-300 MG/G MACROALBUMINURIA >300 MG/G Performed By: #### L IPID, TSH, CMP #### [facility] [address] [place] [address] Dr. Leesa Urbina URINE CREAT 114.03 mg/dL Normal 20.00-300.00 [facility] Comment on above: Performed By: #### L IPID, TSH, CMP #### [facility] [address] [place] [address] Dr. Leesa Urbina PROF 14(COMP METB)on 022 Albumin [Mass/Vol] 2.3 g/dL Critically low 3.4-5.0 [facility] Comment on above: Performed By: #### L IPID, TSH, CMP #### [facility] [address] [place] [address] Dr. Leesa Urbina Albumin/Globulin [Mass ratio] 0.5 {ratio} Normal [facility] Comment on above: Performed By: #### L IPID, TSH, CMP #### [facility] [address] [place] [address] Dr. Leesa Urbina ALP [Catalytic activity/Vol] 77 U/L Normal 46-116 [facility] Comment on above: Performed By: #### L IPID, TSH, CMP #### [facility] [address] [address] [address] Leesa Urbina ALT [Catalytic activity/Vol] 16 U/L Normal 16-63 [facility] Comment on above: Performed By: #### L IPID, TSH, CMP #### [facility] [address] [address] [address] Leesa Urbina Anion gap [Moles/Vol] 13.8 mmol/L Normal [facility] Comment on above: Performed By: #### L IPID, TSH, CMP #### [facility] [address] [address] [address] Leesa Urbina AST [Catalytic activity/Vol] 15 U/L Normal 15-37 [facility] Comment on above: Performed By: #### L IPID, TSH, CMP #### [facility] [address] [address] [address] Leesa Urbina Bilirubin [Mass/Vol] 0.5 mg/dL Normal 0.2-1.0 [facility] Comment on above: Performed By: #### L IPID, TSH, CMP #### [facility] [address] [place] [address] Dr. Leesa Urbina Calcium [Mass/Vol] 8.7 mg/dL Normal 8.5-10.1 [facility] Comment on above: Performed By: #### L IPID, TSH, CMP #### [facility] [address] [place] [address] Dr. Leesa Urbina Chloride [Moles/Vol] 107 mmol/L Normal 98-107 [facility] Comment on above: Performed By: #### L IPID, TSH, CMP #### [facility] [address] [place] [address] Dr. Leesa Urbina CO2 [Moles/Vol] 26.2 mmol/L Normal 21.0-32.0 [facility] Comment on above: Performed By: #### L IPID, TSH, CMP #### [facility] [address] [place] [address] Dr. Leesa Urbina Creatinine [Mass/Vol] 1.25 mg/dL Normal 0.70-1.30 [facility] Comment on above: Performed By: #### L IPID, TSH, CMP #### [facility] [address] [place] [address] Dr. Leesa Urbina EGFR-AF [place] >60 Normal >=60 [facility] Comment on above: Performed By: #### L IPID, TSH, CMP #### [facility] [address] [place] [address] Dr. Leesa Urbina EGFR-NON AF [place] 55 mL/min/1.73m2 Critically low >=60 [facility] Comment on above: Performed By: #### L IPID, TSH, CMP #### [facility] [address] [place] [address] Dr. Leesa Urbina Globulin (S) [Mass/Vol] 4.3 g/dL Normal [facility] Comment on above: Performed By: #### L IPID, TSH, CMP #### [facility] [address] [place] [address] Dr. Leesa Urbina Glucose [Mass/Vol] 137 mg/dL Critically high 74-106 [facility] Comment on above: Performed By: #### L IPID, TSH, CMP #### [facility] [address] [place] [address] Dr. Leesa Urbina Potassium [Moles/Vol] 4.0 mmol/L Normal 3.5-5.1 [facility] Comment on above: Performed By: #### L IPID, TSH, CMP #### [facility] [address] [place] [address] Dr. Leesa Urbina Protein [Mass/Vol] 6.6 g/dL Normal 6.4-8.2 [facility] Comment on above: Performed By: #### L IPID, TSH, CMP #### [facility] [address] [place] [address] Dr. Leesa Urbina Sodium [Moles/Vol] 143 mmol/L Normal 136-145 [facility] Comment on above: Performed By: #### L IPID, TSH, CMP #### [facility] [address] [place] [address] Dr. Leesa Urbina Urea nitrogen [Mass/Vol] 24.0 mg/dL Critically high 7.0-18.0 [facility] Comment on above: Performed By: #### L IPID, TSH, CMP #### [facility] [address] [place], [place] [address] Dr. Leesa Urbina Urea nitrogen/Creatinine [Mass ratio] 19.2 mg/mg Normal [facility] Comment on above: Performed By: #### L IPID, TSH, CMP #### [facility] [address] [place], [place] [address] Dr. Leesa Urbina TSHon 11-05-2021 TSH 0.996 uIU/mL Normal 0.358-3.740 [facility] Comment on above: Performed By: #### L IPID, TSH, CMP #### [facility] [address] [place], [place] [address] Dr. Leesa Urbina Tobacco Screening.on 022 Adult depression screening assessment No [facility] 250 DO Work Phone: Fall risk assessment a) No falls within the last year [facility] 250 DO Work Phone: Tobacco use status [facility] b) No [facility] 250 DO Work Phone: Vital Signs Date Time Vital Sign Value Performing Clinician Facility 07-13-2023 08:34-0500 Body height 180.3 cm Dev Camp MD Work Phone: [facility] 07-13-2023 08:34-0500 Body mass index (BMI) [Ratio] 23.99 kg/m2 Dev Camp MD Work Phone: [facility] 07-13-2023 08:34-0500 Body weight 78.02 kg Dev Camp MD Work Phone: [facility] 07-13-2023 08:34-0500 Diastolic blood pressure 64 mm[Hg] Dev Camp MD Work Phone: [facility] 07-13-2023 08:34-0500 Heart rate 60 /min Dev Camp MD Work Phone: [facility] 07-13-2023 08:34-0500 Systolic blood pressure 108 mm[Hg] Dev Camp MD Work Phone: [facility] 11-17-2022 14:15-0400 Body height 180.34 cm Imad Asaad Other [place] Other 11-17-2022 14:15-0400 Body mass index (BMI) [Ratio] 23.71 kg/m2 Imad Asaad Other Status Overload Other 11-17-2022 14:15-0400 Body weight 77.11 kg Imad Asaad Other Status Overload Other 11-17-2022 14:15-0400 Diastolic blood pressure 78 mm[Hg] Imad Asaad Other Status Overload Other 11-17-2022 14:15-0400 Systolic blood pressure 127 mm[Hg] Imad Asaad Other Status Overload Other 07-14-2022 09:08-0500 Body height 180.34 cm Gabriel Bello Work Phone: [facility] [place] 250 DO Work Phone: 07-14-2022 09:08-0500 Body mass index (BMI) [Ratio] 24.13 kg/m2 Gabriel Bello Work Phone: [facility] [place] 250 DO Work Phone: 07-14-2022 09:08-0500 Body surface area Derived from formula 1.98 m2 Gabriel Bello Work Phone: [employer] 250 DO Work Phone: 07-14-2022 09:08-0500 Body weight 78.47 kg Gabriel Bello Work Phone: [facility] 250 DO Work Phone: 07-14-2022 09:08-0500 Diastolic blood pressure 78 mm[Hg] Gabriel Bello Work Phone: [facility] 250 DO Work Phone: 07-14-2022 09:08-0500 Heart rate 68 /min Gabriel Bello Work Phone: [facility] 250 DO Work Phone: 07-14-2022 09:08-0500 Systolic blood pressure 124 mm[Hg] Gabriel Bello Work Phone: [facility] 250 DO Work Phone: 07-03-2021 15:20-0500 Diastolic blood pressure 78 mm[Hg] Gabriel Bello Work Phone: [facility] 250 DO Work Phone: 07-03-2021 15:20-0500 Heart rate 65 /min Gabriel Bello Work Phone: [facility] 250 DO Work Phone: 07-03-2021 15:20-0500 Systolic blood pressure 136 mm[Hg] Gabriel Bello Work Phone: [facility] 250 DO Work Phone: 07-03-2021 15:17-0500 Body height 180.34 cm Gabriel Bello Work Phone: [facility] 250 DO Work Phone: 07-03-2021 15:17-0500 Body mass index (BMI) [Ratio] 24.97 kg/m2 Gabriel Bello Work Phone: [facility] 250 DO Work Phone: 07-03-2021 15:17-0500 Body surface area Derived from formula 2.01 m2 Gabriel Bello Work Phone: [facility] 250 DO Work Phone: 07-03-2021 15:17-0500 Body weight 81.19 kg Gabriel Bello Work Phone: [facility] 250 DO Work Phone: 07-03-2021 15:17-0500 Diastolic blood pressure 80 mm[Hg] Gabriel Bello Work Phone: [facility] 250 DO Work Phone: 07-03-2021 15:17-0500 Systolic blood pressure 151 mm[Hg] Gabriel Bello Work Phone: [facility] 250 DO Work Phone: Encounters Encounter Date Encounter Type Care Provider Facility Start: 09-13-2023 End: 09-13-2023 ambulatory Miller Donald Facility:[facility] Start: 09-13-2023 End: 09-13-2023 ambulatory DO Gabriel Bello Work Phone: [facility] Work Phone: Start: 09-13-2023 End: 09-13-2023 Patient encounter procedure DO Gabriel Bello Work Phone: [facility]-Pet Scan Work Phone: Start: 07-13-2023 End: 07-13-2023 ambulatory DEV CAMP [facility] Ambulatory Start: 07-13-2023 End: 07-13-2023 Office outpatient visit 25 minutes Dev Camp MD Work Phone: [facility] Comment on above: Benign essential hyp ertension (Primary Dx); Mixed hyperlipidemia; Paroxysmal atrial fibrillation (CMS/HCC); Former smoker Start: 05-26-2023 End: 05-26-2023 ambulatory CHRIS PATEL Not Available Start: 05-12-2023 End: 05-12-2023 ambulatory GABRIEL BELLO Not Available Start: 04-26-2023 End: 04-26-2023 ambulatory LAURA BARROW Not Available Start: 12-24-2022 End: 12-24-2022 ambulatory Imad Asaad Facility:[facility] Start: 11-26-2022 End: 11-26-2022 ambulatory Imad Asaad Facility:[facility] Start: 11-26-2022 End: 11-26-2022 ambulatory DO Gabriel Bello Work Phone: [facility] Work Phone: Start: 11-26-2022 End: 11-26-2022 Patient encounter procedure DO Gabriel Bello Work Phone: [facility]-CT Scan [facility] [place] Work Phone: Start: 11-17-2022 End: 11-17-2022 ambulatory Imad Asaad Other [facility] [employer] Other Start: 11-17-2022 Office outpatient ne w 45 minutes Imad Asaad [facility] Start: 11-17-2022 Telephone encounter Imad Asaad [facility] Start: 09-03-2022 End: 09-04-[address] GABRIEL BELLO Facility:[facility] Start: 07-14-2022 Office outpatient visit 25 minutes Gabriel Bello Work Phone: [facility] 250 DO Work Phone: Start: 07-14-[address] Gabriel Kulkarni Facility: Start: 05-25-2022 End: 05-26-[address] GABRIEL BELLO Facility:[facility] Start: 05-06-2022 End: 05-07-[address] GABRIEL BELLO Facility:[facility] Start: 03-27-2022 Rx Renewal Gabriel mae Work Phone: [facility] 250 DO Work Phone: Start: 12-05-2021 End: 12-05-2021 Patient encounter procedure DO Gabriel Bello Work Phone: [facility] Start: 11-20-2021 End: 11-21-[address] DOCTOR BISHOP Facility:[facility] Start: 11-05-2021 End: 11-06-[address] GABRIEL BELLO Facility:[facility] Start: 07-03-2021 Office outpatient visit 25 minutes Gabriel Blelo Work Phone: [facility] 250 DO Work Phone: Start: 03-05-2021 Rx Renewal Marina lozada MD Work Phone: [facility] 250 DO Work Phone: Start: 07-12-2020 End: 07-12-2020 Discharged Recurring Gabriel Bello [facility]-Covid Vaccine Procedures Date Procedure Procedure Detail Performing Clinician Start: 09-13-2023 Positron emission tomography DO Gabriel Bello Work Phone: Start: 07-13-2023 ECG 12-LEAD DEV JAMISON Start: 07-13-2023 Ecg routine ecg w/le ast 12 lds w/i&r Dev Camp MD Work Phone: Start: 11-26-2022 Computed tomography of abdomen and pelvis with contrast DO Gabriel Bello Work Phone: Start: 05-25-[address] DOCTOR BISHOP Comment on above: Performed By: #### L IPID, TSH, CMP #### [facility] [address] [place] [address] Dr. Leesa Urbina Start: 11-20-[address] DOCTOR BISHOP Comment on above: Performed By: #### P SAD #### [facility] [address] [place] [address] Dr. Leesa Urbina Appendectomy Gabriel daniel Work Phone: Cataract surgery Gabriel morris Work Phone: Colonoscopy Gabriel daniel Work Phone: Comment on above: [id number] Jovanny Yu; Operation on lip Gabriel Alicia morris Work Phone: Jarret mae Work Phone: Plan of Treatment Date Care Activity Detail Author Start: 07-18-2024 End: 07-18-2024 Patient encounter procedure 07/18/2024 8:50 AM EST Office Visit [facility] [address] [place] [address] Dev Camp MD [address] [place] [address] [facility] Start: 07-13-2023 FUV, Provider: Dev Camp, Status: Pen, Time: 8:50 AM FUV, Provider: Dev Camp, Status: Pen, Time: 8:50 AM [facility] 250 DO Work Phone: Start: 07-14-2022 FUV, Provider: Dev Camp, Status: Pen, Time: 9:10 AM FUV, Provider: Dev Camp, Status: Pen, Time: 9:10 AM -[facility] 250 DO Work Phone: Start: 06-24-2021 FUV, Provider: Dev Camp, Status: Pen, Time: 10:15 AM FUV, Provider: Dev Camp, Status: Pen, Time: 10:15 AM [facility] 250 DO Work Phone: Start: 1960 DTaP/Tdap/Td Vaccine s (1 - Tdap) DTaP/Tdap/Td Vaccines (1 - Tdap) [facility] Start: 1957 Urine screening for protein Diabetes: Urine Protein Screening [facility] Start: 1948 Diabetic foot examination Diabetes: Foot Exam [facility] Start: 1948 Glaucoma screening Diabetes: R etinopathy Screening [facility] Start: 1938 Hemoglobin A1c measurement Diabetes: Hemoglobin A1C [facility] Start: 1938 Lipid panel Lipid Panel [facility] Start: 1938 Medicare Annual Wellness Visit Medicare Annual Wellness Visit (AWV) [facility] HIV 1+2 Ab+HIV1 p24 Ag [Presence] in Serum or Plasma by Immunoassay [facility] Immunizations Immunization Date Immunization Notes Care Provider Fa cility 04-03-2022 Moderna COVID-19 Biv al Booster 50 MCG/0.5ML Intramuscular Suspension Gabriel Bello Work Phone: [facility] 250 DO Work Phone: 03-10-2022 Fluad Quadrivalent 0 .5 ML Intramuscular Prefilled Syringe Gabriel Bello Work Phone: [facility] 250 DO Work Phone: 12-19-2021 Moderna COVID-19 Vac cine 100 MCG/0.5ML Intramuscular Suspension Gabriel Bello Work Phone: [facility] 250 DO Work Phone: 03-20-2021 Moderna COVID-19 Vac cine 100 MCG/0.5ML Intramuscular Suspension Gabriel Bello Work Phone: [facility] 03-12-2021 influenza, high dose seasonal, preservative-free Gabriel Bello Work Phone: [facility] 250 DO Work Phone: 02-26-2021 Fluzone High-Dose Quadrivalent 0.7 ML Intramuscular Suspension Prefilled Syringe Gabriel Bello Work Phone: [facility] 250 DO Work Phone: 07-12-2020 COVID-19 mRNA-1273 (Moderna) [facility] 06-15-2020 COVID-19 mRNA-1273 (Moderna) [facility] 03-15-2020 Fluad Quadrivalent 0 .5 ML Intramuscular Prefilled Syringe Gabriel Downingman Work Phone: [facility] [employer] 250 DO Work Phone: 02-24-2020 influenza, high dose seasonal, preservative-free Gabriel Bello Work Phone: [facility] [employer] DO Work Phone: 03-11-2019 zoster vaccine recombinant [facility] [employer] [facility] Work Phone: 03-01-2019 influenza, high dose seasonal, preservative-free Gabriel Bello Work Phone: [facility] [employer] DO Work Phone: 02-21-2019 influenza, high dose seasonal, preservative-free Gabrielata Bello Work Phone: [facility] [employer] DO Work Phone: 12-22-2018 zoster vaccine recombinant Gabriel Bello Work Phone: [facility] [employer] DO Work Phone: 02-25-2018 influenza, high dose seasonal, preservative-free Gabriel Bello Work Phone: [facility] [employer] DO Work Phone: 03-16-2017 influenza, high dose seasonal, preservative-free Gabriel Bello Work Phone: [facility] [employer] 250 DO Work Phone: 05-24-2016 pneumococcal conjuga te vaccine, 13 valent Gabriel Alicia Henrique Work Phone: [facility] 03-22-2015 influenza, high dose seasonal, preservative-free Gabrielata [facility] Work Phone: 05-24-2012 pneumococcal polysaccharide vaccine, 23 valent Gabriel Vargas Henrique Work Phone: [facility] 05-31-2009 novel influenza-H1N1 -09, preservative-free, injectable Gabriel Bello Work Phone: -[facility] 250 DO Work Phone: Payers Date Payer Category Payer Medicare [id number] 2022 Self-pay [id number] 1959 Private Health Insurance Formerly [facility] [id number] 1938 Unknown [id number] 2.16. [id number] 1938 Unknown [id number] 2.16.84 [id number] 1938 Unknown [id number] 2.16.84 [id number] 1938 Unknown [id number] 2.16.84 [id number] 1938 Unknown [id number] 2.16.84 [id number] 1938 Unknown [id number] 2.16.84 [id number] 1938 Unknown [id number] 2.16.840 .[id number] 1938 Unknown [id number] 2.16.840 .[id number] 1938 Unknown [id number] 2.16.840 .[id number] 1938 Unknown [id number] 2.16.8 [id number] Medicare Medicare [id number] Private Health Insurance Self Pay [facility] [id number] Unknown [employer] Unknown [id number] 2.16.8 [id number] Unknown [id number] 2.16.8 [id number] Unknown [id number] 2.16.8 [id number] Social History Date Type Detail Facility Tobacco smoking status [facility] Unknown if ever smoked [facility] Start: 1940 Sex Assigned At Male F [facility] Start: 07-13-2023 Never a smoker Never a smoker -[facility] 250 DO Work Phone: Comment on above: 2-3 drinks a month; Start: 12-05-2021 End: 12-24-2022 Tobacco smoking status NHIS Ex-smoker (finding) [facility] Start: 07-13-2023 Sex Assigned At N [facility] [employer] Other End: 05-24-1989 History of tobacco use Current smoker [facility] Work Phone: End: 05-24-1989 History of tobacco use Cigarette Smoker [facility] Work Phone: Start: 07-13-2023 Tobacco use and exposure Smokeless tobacco non-user [facility] Work Phone: Start: 07-13-2023 Alcohol intake Lifetime non-d joe (finding) [facility] Work Phone: Start: 1940 Sex Assigned At Not on file [facility] Work Phone: Start: 07-03-2023 End: 07-13-2023 Exposure to SARS-CoV-2 (event) Not sure [facility] Goals Date Patient Goal Desired Activity /State History of Present illness Narrative 07-13-2023 Dev Camp MD - 07/13/2023 8:50 AM EST Note Date & Type Note Facility 07-13-2023 History of Present illness Narrative Subjective Dev Walsh is a 83 y.o. male Chief Complaint Annual Exam HPI Patient returns in follow-up of problems as noted. He states he is done well. He believes he has had no breakthroughs of atrial fibrillation and he feels firmly he can tell the difference between A-fib and PVCs. He states today that he is having PVCs and auscultation demonstrates an irregular pulse. An EKG is performed and it demonstrates sinus bradycardia with PVCs. Hence the patient is correct. Advised him that a lower dose of Toprol would allow a higher resting heart rate and may extinguish the PVCs and because of this metoprolol dosage will be reduced by 50%. Other cardiac signs and symptoms were discussed. He has none. He believes he can tell he has atrial fibrillation when it occurs. He is protected, though, from stroke because of rivaroxaban therapy. In light of all the above we feel an adjustment in beta-allyn therapy is appropriate but otherwise no intervention is needed Review of Systems Cardiovascular: Positive for irregular heartbeat and palpitations. All other systems reviewed and are negative. Vitals: 07/13/23 0834 BP: 108/64 BP Location: Left arm Patient Position: Sitting Pulse: 60 Weight: 78 kg (172 lb) Height: 1.803 m (5' 11 ) EKG done in office today Objective Physical Exam Constitutional: Appearance: Normal appearance. He is normal weight. HENT: Nose: Nose normal. Neck: Vascular: No carotid bruit. Cardiovascular: Rate and Rhythm: Normal rate. Pulses: Normal pulses. Heart sounds: Normal heart sounds. Pulmonary: Effort: Pulmonary effort is normal. Abdominal: General: Bowel sounds are normal. Palpations: Abdomen is soft. Genitourinary: Rectum: Normal. Musculoskeletal: General: Normal range of motion. Cervical back: Normal range of motion. Right lower leg: No edema. Left lower leg: No edema. Skin: General: Skin is warm and dry. Neurological: General: No focal deficit present. Mental Status: He is alert. Psychiatric: Mood and Affect: Mood normal. Behavior: Behavior normal. Thought Content: Thought content normal. Judgment: Judgment normal. Allergies Sulfa (sulfonamide antibiotics) Current Medications Current Outpatient Medications: ascorbic acid, vitamin C, 500 mg capsule, Take 1 capsule by mouth once daily., Disp: , Rfl: atorvastatin (Lipitor) 20 mg tablet, Take 0.5 tablets (10 mg) by mouth once daily., Disp: , Rfl: cholecalciferol (Vitamin D-3) 25 MCG (1000 UT) capsule, Take 1 capsule (25 mcg) by mouth once daily., Disp: , Rfl: cyanocobalamin (Vitamin B-12) 1,000 mcg tablet, Take 1 tablet (1,000 mcg) by mouth once daily., Disp: , Rfl: dicyclomine (Bentyl) 10 mg capsule, Take 1 capsule (10 mg) by mouth once daily., Disp: , Rfl: vncieb-dvndpndl-ruxdtnh (Creon) 24,000-76,000 -120,000 unit capsule, Take 1 capsule by mouth 3 times a day with meals., Disp: , Rfl: lisinopril 20 mg tablet, Take 1 tablet (20 mg) by mouth once daily., Disp: , Rfl: metFORMIN (Glucophage) 500 mg tablet, Take 1 tablet (500 mg) by mouth once daily., Disp: , Rfl: mirtazapine (Remeron) 15 mg tablet, Take 1 tablet (15 mg) by mouth once daily at bedtime., Disp: , Rfl: rivaroxaban (Xarelto) 20 mg tablet, Take 1 tablet (20 mg) by mouth once daily., Disp: 90 tablet, Rfl: 3 vit A/vit C/vit E/zinc/copper (ICAPS AREDS ORAL), Take 1 tablet by mouth see administration instructions., Disp: , Rfl: Assessment/Plan 1. Benign essential hypertension Good control on current therapy, no need for adjustment 2. Mixed hyperlipidemia Review of treatment strategy reveals no need for adjustment 3. Paroxysmal atrial fibrillation (CMS/HCC) No paroxysms based upon the patient's historical recount. He appears to be an accurate historian 4. Former smoker Congratulated on lifestyle modifications Scribe Attestation By signing my name below, Marisa Edwards LPN , Scribe attest that this documentation has been prepared under the direction and in the presence of Dev Camp MD. Provider Attestation - Scribe documentation All medical record entries made by the Scribe were at my direction and personally dictated by me. I have reviewed the chart and agree that the record accurately reflects my personal performance of the history, physical exam, discussion and plan. documented in this encounter [facility] Work Phone: Instructions 07-13-2023 Patient Instructions Note Date & Type Note Facility 07-13-2023 Instructions Dominick Suazo MA - 07/13/2023 8:50 AM EST Please bring all medicines, vitamins, and herbal supplements with you when you come to the office. Prescriptions will not be filled unless you are compliant with your follow up appointments or have a follow up appointment scheduled as per instruction of your physician. Refills should be requested at the time of your visit. documented in this encounter [facility] Work Phone: Evaluation note 11-17-2022 Note Date & Type Note Facility 11-17-2022 Evaluation note Encounter Date Diagnosis Assessment Notes Oct, Change in bowel habits (ICD-10 - R19.4) Oct, Diverticulosis (ICD-10 - K57.90) Oct, IBS (irritable bowel syndrome) (ICD-10 - K58.9) Oct, Pancreatic insufficiency (ICD-10 - K86.89) Status Overload Other History of Present illness Narrative 07-14-2022 Note Date & Type Note Facility 07-14-2022 History of Present illness Narrative walks 2 to 3 miles a dayPatient returns in follow-up of problems as noted. He is doing well. He tolerates his paroxysmal atrial fibrillation very well and has no complaints related to his chronic 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. Blood pressure lipids and cholesterol appear to be adequately managed. Merits of maintaining ideal body weight and is favorable impact on his diabetes as well as hypertension were discussed and reviewed with him and he understands the recommendations and will continue his diet and exercise routine which appears to be excellent. In light of all the above we believe no adjustments in therapy are necessary and we suggest follow-up next year -[facility] 250 DO Work Phone: Evaluation note Note Date & Type Note Facility Evaluation note No assessment information [facility] Work Phone: Evaluation note Note Date & Type Note Facility Evaluation note No Information [facility] [employer] Other Evaluation note Note Date & Type Note Facility Evaluation note Diagnosis Benign essential hypertension- Primary Essential hypertension, benign Mixed hyperlipidemia Paroxysmal atrial fibrillation (CMS/HCC) Atrial fibrillation Former smoker Personal history of tobacco use, presenting hazards to health documented in this encounter [facility] Work Phone: History general Narrative - Reported Note Date & Type Note Facility History general Narrative - Reported Type Medical History diabetes mallitus Medical History high blood pressure Medical History appendectomy Medical History Palpitations Medical History Malignant neoplasm of prostate Medical History Irritable bowel syndrome Medical History Diabetes mellitus [facility] mention of complication, type II or unspecified type, not stated as uncontrolled Medical History Benign essential hypertension Medical History Pre-diabetes Medical History Hyperlipidemia Medical History Essential hypertension, benign Medical History cancer, squamous cell Medical History basal cell carcinoma Medical History H/O prostatectomy Medical History Depression Medical History BCC removed from lef t upper lip, Mohs 12/04/2021 Surgical History appendectomy Surgical History prostatectomy Surgical History Procedure:prostatectomy Surgical History Procedure:Appendectomy 1952 Surgical History Procedure:Back surgery Surgical History Procedure:Knee replacement Surgical History Procedure:35 Radiati on Treatments,-;Disease:Reoccurance Prostrate Cancer 2008 Surgical History Procedure:colonoscopy 2010 Surgical History Colonoscopy per Dr. Yu. 11-28-15 Surgical History Left Cataract surgery 10-01-17 Surgical History Right cataract surge ry per in [place], [place]. 10-28-17 Surgical History Mohs repair / left upper lip Hospitalization History see above [facility] [employer] Other History of Present illness Narrative Note Date & Type Note Facility History of Present illness Narrative Returns in follow-up of problems as noted. He is doing well. He is tolerating the strategy of rate control with 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 for history of paroxysmal atrial fibrillation he denies frequent breakthroughs. Control of other risk factors including blood pressure cholesterol and diabetes is reviewed and felt to be adequate and appropriate. Because of all the above we suggest continued therapy as before without change. [facility] 250 DO Work Phone: Advance Directives No Advanced Directives Records Found Advance Directive Response Recorded Date/ Time Advance Directives No June 15, 2020 11:06am Advance Directive Response Recorded Date/ Time Advance Directives No June 15, 2020 12:06pm Chief Complaint and Reason for Visit Chief Complaint VACCINE INS Chief Complaint Lip Wound Chief Complaint K86.89 Chief Complaint c61 Assessments No Assessments Information Available Chief Complaint DEV WALSH is being seen for a 9 month follow-up of.DEV WALSH is being seen for an annual follow-up of. Family History No Family History Records FoundUnknown Family Member Name Dates Details Bradycardia: Father Status:Active Family history of cardiac pa cemaker: Father(V17.49, Z82.49) Status:Active Relationship Condition Age at Onset Recorded Date/T deidre father Coronary artery disease Unknown Unknown Family Member Name Dates Details Family history of cardiac pa cemaker: Father(V17.49, Z82.49) Status:Active Bradycardia: Father Status:Active Unknown Family Member Name Dates Details Family history of cardiac pa cemaker: Father(V17.49, Z82.49) Status:Active Bradycardia: Father Status:Active Relationship Condition Age at Onset Recorded Date/T deidre father Coronary artery disease Unknown father Unknown Not Specified Unknown Summary Purpose Reason for Referral Specialty Diagnoses / Procedures Referred By Katie bhat Referred To Contact Diagnoses Paroxysmal atrial fibrillation (CMS/HCC) Procedures ECG 12 Lead Dev Camp MD [address] [address] Referral ID Status Reason Start Date Expiration Date V isits Requested Visits Authorized [id number] Authorized 07/13/2023 07/12/2024 1 1 Specialty Diagnoses / Procedures Referred By Katie bhat Referred To Contact Cardiology Diagnoses Paroxysmal atrial fibrillation (CMS/HCC) Procedures Follow Up In Cardiology Dev Camp MD [address] [address] Dev Camp MD [address] [facility] [address], [facility] [address] [place] [address] Referral ID Status Reason Start Date Expiration Date V isits Requested Visits Authorized [id number] Authorized 07/13/2023 07/12/2024 1 1 Additional Source Comments Care Teams (unrecognized sec tion and content) Team Status: Inactive Member Role Status Dates Gabriel Bello , Primary Care Provider Active Shonna Sim , DO Family Provider Active Juan Ventura , Attending Provider Active Team Status: Active Member Role Status Dates Shonna Sim , Family Provider Active Gabriel Bello , Primary Care Provider Active Team Status: Inactive Member Role Status Dates Gabriel Bello DO Primary Care Provider Active Shonna Sim , Family Provider Active Jj Garcia MD Attending Provider Active Slasher Relationship Specialty Start Date End Date Gabriel Bello DO [address] [facility] [address] [place] [id number] PCP - General 05/24/99 Team Status: Inactive Member Role Status Dates Gabriel Bello DO Primary Care Provider Active Start: September 13, 2023 End: September 13, 2023 NON STAFF Attending Provider Active Start: 2023 End: September 13, 2023 Goals (unrecognized section and content) Goals may be documented in a n alternate sectionNo InformationNo InformationGoals may be documented in an alternate sectionGoals may be documented in an alternate section (unrecognized sect ion and content) No Status Records FoundNo Status Records FoundNo Status Records FoundNo Status Records FoundNo Status Records FoundNo Status Records Found INFORMATION SOURCE (unrecogn ized section and content) DATE CREATED AUTHOR 07/15/2022 [facility] DATE CREATED AUTHOR AUTHOR'S ORGANIZ ATION 07/15/2022 [employer] DATE CREATED AUTHOR AUTHOR'S ORGANIZ ATION 09/10/2022 [facility] DATE CREATED AUTHOR AUTHOR'S ORGANIZ ATION 05/27/2023 [facility] EPIC DATE CREATED AUTHOR AUTHOR'S ORGANIZ ATION 07/14/2023 [facility] DATE CREATED AUTHOR AUTHOR'S ORGANIZ ATION 09/18/2023 [facility] REASON FOR VISIT (unrecogniz ed section and content) Reason Comments Annual Exam Specialty Diagnoses / Procedures Referred By Contac t Referred To Contact Diagnoses Paroxysmal atrial fibrillation (CMS/HCC) Procedures ECG 12 Lead Dev Camp MD [address] [facility] 2, [facility] [address] [place] [address] Referral ID Status Reason Start Date Expiration Date V isits Requested Visits Authorized [id number] Authorized 07/13/2023 07/12/2024 1 1 FOR RECORDS PERTAINING TO PATIENTS WHO ARE OR HAVE BEEN ENROLLED IN A CHEMICAL DEPENDENCY/SUBSTANCEABUSE PROGRAM, SOME INFORMATION MAY BE OMITTED. This clinical summary was aggregated from multiple sources. Caution should be exercised in using it in the provision of clinical care. This summary normalizes information from multiple sources, and as a consequence, information in this document may materially change the coding, format and clinical context of patient data. In addition, data may be omitted in some cases. CLINICAL DECISIONS SHOULD BE BASED ON THE PRIMARY CLINICAL RECORDS. [employer] provides no warranty or guarantee of the accuracy or completeness of information in this document.
--- NOTE | 2023-09-29 16:54 | CT_ITS ---
[address] [address] Patient Name: DEV ALVAREZ MRN: [id number] date: 1940 Sex: M Assigned Patient Location: ER Current Patient Location: [facility] Accession/Order Number: [id number] Exam Date: 09/29/2023 17:12 Report Date: 09/29/2023 17:42 At the request of: MONIQUE DANIELS Procedure: CT head/brain wo con EXAM: CT head/brain wo con CLINICAL INDICATION: syncope,head trauma COMPARISON: None TECHNIQUE: Axial CT images of the brain were obtained without contrast. Coronal and sagittal reformats were obtained. Dose reduction techniques were achieved by using automated exposure control and/or adjustment of mA and/or kV according to patient size and/or use of iterative reconstruction technique. FINDINGS: No intracranial hemorrhage, extra-axial fluid collection, hydrocephalus, midline shift, or acute large vessel territory infarction. No other mass effect. Trace periventricular hypoattenuation is likely on the basis of chronic microvascular angiopathic changes. Mild symmetric global volume loss without lobar predominance. Commensurate prominence of the ventricular system. Basal cisterns are patent. No calvarial fracture. Normal soft tissues. Paranasal sinuses and mastoid air cells are well-aerated. CT/CT head/brain wo con IMPRESSION: No acute intracranial process. Electronically authenticated by: MARIEL AGUILA Date: 09/29/2023 17:42
--- NOTE | 2023-09-29 16:54 | ECG_ITS ---
[facility] Test Date: 2023-09-29 Pat Name: DEV ALVAREZ Department: Room: - Gender: Male Program Director Group Work: : 1940 Requested By: Order Number: [id number] Reading MD: JANUSZ FORD Measurements Intervals Pillager Rate: 81 P: 51 NV: 172 QRS: 4 QRSD: 80 T: 46 QT: 384 QTc: 421 Interpretive Statements 1100 Sinus rhythm 1574 with frequent ventricular premature complexes 9140 abnormal rhythm ECG Compared to ECG 10/22/2017 19:10:32 Ventricular premature complex(es) now present Electronically Signed On 09-29-2023 23:09:22 EDT by JANUSZ FORD
[2023-09-29 16:58] LABS: Glucometer 136 mg/dL (74-106)
--- NOTE | 2023-09-29 17:02 | ED_ITS ---
Documented by User: Janel FultonDO 09/29/23 17:07 HPI HPI - General Adult General Chief complaint: Head Injury Stated complaint: Head injury from Fall Time Seen by Provider: 09/29/23 16:48 Source: patient Mode of arrival: walk-in Limitations: no limitations History of Present Illness HPI narrative: Patient presents to ED after syncope with head injury. He states he did not eat since breakfast and was playing golf all day. He then left golf and went to [employer] and when he was at [employer] he got lightheaded and passed out. He hit the back of his head. He is on Xarelto so he was concerned and he came in for further evaluation. He said he is prediabetic. He denies any chest pain or shortness of breath. He did feel this coming on he was feeling shaky when he was at [employer]. He thinks is because he did not really eat and drink very much. Currently he is alert and oriented in no acute distress. He drove himself and from [employer]. 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 They said they thought it was A-fib and he wore a Holter monitor 3 years ago he had 1 small episode of A-fib but no other episodes and now he is only been having PVCs. He said that they wanted him to stay on the Xarelto however. Related Data Home Medications ?Medication ?Instructions ?Recorded ?Confirmed rivaroxaban 20 mg tablet (Xarelto) 20 mg PO DAILY 09/29/23 09/29/23 Allergies Allergy/AdvReac Type Severity Reaction Status Date / Time Sulfa (Sulfonamide Allergy Severe Hives Verified 09/29/23 16:38 Antibiotics) Opioid HPI Opioid Management Most Recent Opioid Data: No Data to Display Review of Systems ROS Status of ROS 10 or more systems reviewed and unremark able except as noted in history and below Exam Narrative Exam Narrative: Time Seen: [] Vital Signs: [Per nurse's notes.] General: [Alert] Skin: [Warm, dry, no rash.] Head: [Normocephalic,Small abrasion and hematoma in the right occipital area Neck: [Supple, trachea midline.]No C-spine tenderness Eye: [Pupils are equal, round and reactive to light, extraocular movements are intact, normal conjunctiva.] Ears, nose, mouth and throat: oral mucosa moist. Cardiovascular: [Regular rate and rhythm, no murmur.] Respiratory: [Lungs are clear to auscultation, respirations are non-labored, breath sounds are equal.] Chest wall: [No tenderness, no deformity.] Gastrointestinal: [Soft, nontender, non distended, normal bowel sounds.] MSK: 5 out of 5 muscle strength x 4 extremities no calf pain or edema Lymphatics: [No lymphadenopathy.] Psychiatric: [Cooperative, appropriate mood & affect.] Neurological: [Alert and oriented to person, place, time, and situation, no focal neurological deficit observed.] Constitutional Vital Signs, click to edit/add: Last Vital Signs Temp 98.1 F 09/29/23 16:39 Pulse 79 09/29/23 16:56 Resp 17 09/29/23 16:56 BP 179/99 H 09/29/23 16:39 Pulse Ox 96 09/29/23 16:39 O2 Del Method Room Air 09/29/23 16:39 Course Vital Signs Vital signs: Vital Signs Temperature 98.1 F 09/29/23 16:39 Pulse Rate 55 L 09/29/23 16:39 Respiratory Rate 20 09/29/23 16:39 Blood Pressure 179/99 H 09/29/23 16:39 Pulse Oximetry 96 09/29/23 16:39 Oxygen Delivery Method Room Air 09/29/23 16:39 Temperature 98.1 F 09/29/23 16:39 Pulse Rate 79 09/29/23 16:56 Respiratory Rate 17 09/29/23 16:56 Blood Pressure 179/99 H 09/29/23 16:39 Pulse Oximetry 96 09/29/23 16:39 Oxygen Delivery Method Room Air 09/29/23 16:39 Medical Decision Making Lab Data Labs: Lab Results 09/29/23 09/29/23 09/29/23 Range/Units 16:52 17:10 19:11 WBC 8.6 (4.0-11.0) 10^3/uL RBC 3.83 L (4.70-6.10) 10^6/uL Hgb 11.7 L (14.0-18.0) g/dL Hct 35.9 L (42.0-54.0) % MCV 93.7 (80.0-94.0) fL MCH 30.5 (25.9-34.0) pg MCHC 32.6 (29.9-35.2) g/dL RDW 13.3 (11.0-15.0) % Plt Count 175 (150-450) 10^3/uL MPV 10.8 (9.5-13.5) fL Neut % (Auto) 66.3 (43.0-75.0) % Lymph % (Auto) 23.4 (20.5-60.0) % Collier % (Auto) 6.5 (1.7-12.0) % Eos % (Auto) 2.1 (0.9-7.0) % Baso % (Auto) 0.7 (0.2-2.0) % Neut # (Auto) 5.7 (1.4-6.5) 10^3/uL Lymph # (Auto) 2.0 (1.2-3.8) 10^3/uL Collier # (Auto) 0.6 (0.3-0.8) 10^3/uL Eos # (Auto) 0.2 (0.0-0.7) 10^3/uL Baso # (Auto) 0.1 (0.0-0.1) 10^3/uL Abs Immat Gran (auto) 0.09 H (0.00-0.03) 10^3/uL Imm/Tot Granulo (auto) 1.0 H (0.0-0.5) % Sodium 137 (136-145) mmol/L Potassium 4.1 (3.5-5.1) mmol/L Chloride 103 (98-107) mmol/L Carbon Dioxide 21.9 (21.0-32.0) mmol/L Anion Gap 16.2 BUN 24.0 H (7.0-18.0) mg/dL Creatinine 1.66 H (0.70-1.30) mg/dL Est GFR ( Amer) 48 L (>=60) Est GFR (Non-Af Amer) 40 L (>=60) BUN/Creatinine Ratio 14.5 Glucose 156 H (74-106) mg/dL Calcium 9.0 (8.5-10.1) mg/dL Total Bilirubin 0.5 (0.2-1.0) mg/dL AST 22 (15-37) U/L ALT 20 (16-63) U/L Alkaline Phosphatase 83 (46-116) U/L Troponin I High Sens 15.7 19.7 (4.0-76.1) pg/mL Total Protein 6.8 (6.4-8.2) g/dL Albumin 3.6 (3.4-5.0) g/dL Globulin 3.2 g/dL Albumin/Globulin Ratio 1.1 POC Glucose 136 H (74-106) mg/dL ECG Data Attestation: I personally reviewed and interpreted this ECG as follows: Interpretation: EKG INTERPRETATION Time: []1654 Rate: []81 Rhythm: _ []Sinus rhythm with frequent PVCs ST segments: _ [] T waves: _ [] Ectopy: _ [] P wave/CT interval: _ [] QRS interval: _ [] QT interval: _ [] Comparison: _ [] Comparison EKG date: [] Performed by: [self]No acute ST elevation or depression Discharge Plan Discharge Stand Alone Forms: Portal Instructions Chief Complaint: Head Injury Clinical Impression: Closed head injury, Syncope Patient Disposition: Home, Self-Care Time of Disposition Decision: 20:16 Condition: Good Prescriptions / Home Meds: No Action Xarelto 20 mg tablet 20 mg PO DAILY Print Language: Chadian Instructions: Syncope (ED), Head Injury (ED) Referrals: GABRIEL BELLO [Primary Care Provider] - 1 week Documented by User: Conchita Agarwal MD 09/29/23 20:16 HPI HPI - General Adult General Chief complaint: Head Injury Stated complaint: Head injury from Fall Time Seen by Provider: 09/29/23 16:48 Related Data Home Medications ?Medication ?Instructions ?Recorded ?Confirmed rivaroxaban 20 mg tablet (Xarelto) 20 mg PO DAILY 09/29/23 09/29/23 Allergies Allergy/AdvReac Type Severity Reaction Status Date / Time Sulfa (Sulfonamide Allergy Severe Hives Verified 09/29/23 16:38 Antibiotics) Opioid HPI Opioid Management Most Recent Opioid Data: No Data to Display Exam Constitutional Vital Signs, click to edit/add: Last Vital Signs Temp 98.1 F 09/29/23 16:39 Pulse 79 09/29/23 16:56 Resp 17 09/29/23 16:56 BP 179/99 H 09/29/23 16:39 Pulse Ox 96 09/29/23 16:39 O2 Del Method Room Air 09/29/23 16:39 Course Vital Signs Vital signs: Vital Signs Temperature 98.1 F 09/29/23 16:39 Pulse Rate 55 L 09/29/23 16:39 Respiratory Rate 20 09/29/23 16:39 Blood Pressure 179/99 H 09/29/23 16:39 Pulse Oximetry 96 09/29/23 16:39 Oxygen Delivery Method Room Air 09/29/23 16:39 Temperature 98.1 F 09/29/23 16:39 Pulse Rate 79 09/29/23 16:56 Respiratory Rate 17 09/29/23 16:56 Blood Pressure 179/99 H 09/29/23 16:39 Pulse Oximetry 96 09/29/23 16:39 Oxygen Delivery Method Room Air 09/29/23 16:39 Medical Decision Making MDM Narrative Medical decision making narrative: This 83-year-old male was signed out to me at shift change pending repeat troponin. He drove himself to the emergency department after passing out at [employer]. The patient was golfing all day. It was approximately 85 degrees outside today. He drank too diet Cokes throughout the day but did not have anything to eat. Patient had a normal CT scan and normal labs. Creatinine is mildly elevated at 1.66. I ordered him a liter of normal saline. He is eating his [employer] sandwich and drinking water. He denies any complaints. His friends are with him. They did not notice anything strange or unusual about his behavior. He has not had any confusion or focal weakness numbness or tingling. Repeat troponin is 19.7. He remains hemodynamically and neurologically stable. He will be discharged home at this time. His friends are with him and will look after him this evening. Lab Data Labs: Lab Results 09/29/23 09/29/23 09/29/23 Range/Units 16:52 17:10 19:11 WBC 8.6 (4.0-11.0) 10^3/uL RBC 3.83 L (4.70-6.10) 10^6/uL Hgb 11.7 L (14.0-18.0) g/dL Hct 35.9 L (42.0-54.0) % MCV 93.7 (80.0-94.0) fL MCH 30.5 (25.9-34.0) pg MCHC 32.6 (29.9-35.2) g/dL RDW 13.3 (11.0-15.0) % Plt Count 175 (150-450) 10^3/uL MPV 10.8 (9.5-13.5) fL Neut % (Auto) 66.3 (43.0-75.0) % Lymph % (Auto) 23.4 (20.5-60.0) % Collier % (Auto) 6.5 (1.7-12.0) % Eos % (Auto) 2.1 (0.9-7.0) % Baso % (Auto) 0.7 (0.2-2.0) % Neut # (Auto) 5.7 (1.4-6.5) 10^3/uL Lymph # (Auto) 2.0 (1.2-3.8) 10^3/uL Collier # (Auto) 0.6 (0.3-0.8) 10^3/uL Eos # (Auto) 0.2 (0.0-0.7) 10^3/uL Baso # (Auto) 0.1 (0.0-0.1) 10^3/uL Abs Immat Gran (auto) 0.09 H (0.00-0.03) 10^3/uL Imm/Tot Granulo (auto) 1.0 H (0.0-0.5) % Sodium 137 (136-145) mmol/L Potassium 4.1 (3.5-5.1) mmol/L Chloride 103 (98-107) mmol/L Carbon Dioxide 21.9 (21.0-32.0) mmol/L Anion Gap 16.2 BUN 24.0 H (7.0-18.0) mg/dL Creatinine 1.66 H (0.70-1.30) mg/dL Est GFR ( Amer) 48 L (>=60) Est GFR (Non-Af Amer) 40 L (>=60) BUN/Creatinine Ratio 14.5 Glucose 156 H (74-106) mg/dL Calcium 9.0 (8.5-10.1) mg/dL Total Bilirubin 0.5 (0.2-1.0) mg/dL AST 22 (15-37) U/L ALT 20 (16-63) U/L Alkaline Phosphatase 83 (46-116) U/L Troponin I High Sens 15.7 19.7 (4.0-76.1) pg/mL Total Protein 6.8 (6.4-8.2) g/dL Albumin 3.6 (3.4-5.0) g/dL Globulin 3.2 g/dL Albumin/Globulin Ratio 1.1 POC Glucose 136 H (74-106) mg/dL Discharge Plan Discharge Stand Alone Forms: Portal Instructions Chief Complaint: Head Injury Clinical Impression: Closed head injury, Syncope Patient Disposition: Home, Self-Care Time of Disposition Decision: 20:16 Condition: Good Prescriptions / Home Meds: No Action Xarelto 20 mg tablet 20 mg PO DAILY Print Language: Chadian Instructions: Syncope (ED), Head Injury (ED) Referrals: GABRIEL BELLO [Primary Care Provider] - 1 week
[2023-09-29 17:17] LABS: Basophils Absolute Auto 0.1 10^3/uL (0.0-0.1); Basophils Percent Auto 0.7 % (0.2-2.0); Eosinophils Absolute Auto 0.2 10^3/uL (0.0-0.7); Eosinophils Percent Auto 2.1 % (0.9-7.0); Hematocrit 35.9 % (42.0-54.0); Hemoglobin 11.7 g/dL (14.0-18.0); Immature Granulocytes Abs Auto 0.09 10^3/uL (0.00-0.03); Lymphocytes Percent Auto 23.4 % (20.5-60.0); Mean Corpuscular HGB Conc 32.6 g/dL (29.9-35.2); Mean Corpuscular Hemoglobin 30.5 pg (25.9-34.0); Mean Corpuscular Volume 93.7 fL (80.0-94.0); Mean Platelet Volume 10.8 fL (9.5-13.5); Monocytes Absolute Auto 0.6 10^3/uL (0.3-0.8); Monocytes Percent Auto 6.5 % (1.7-12.0); Neutrophils Absolute Auto 5.7 10^3/uL (1.4-6.5); Neutrophils Percent Auto 66.3 % (43.0-75.0); Platelet Count 175 10^3/uL (150-450); Red Blood Count 3.83 10^6/uL (4.70-6.10); Red Cell Distribution Width 13.3 % (11.0-15.0); White Blood Count 8.6 10^3/uL (4.0-11.0)
[2023-09-29 17:35] LABS: Alanine Aminotransferase 20 U/L (16-63); Albumin Globulin Ratio 1.1; Albumin Level 3.6 g/dL (3.4-5.0); Alkaline Phosphatase 83 U/L (46-116); Anion Gap 16.2; Aspartate Amino Transferase 22 U/L (15-37); BUN Creatinine Ratio 14.5; Bilirubin Total 0.5 mg/dL (0.2-1.0); Carbon Dioxide 21.9 mmol/L (21.0-32.0); Chloride 103 mmol/L (98-107); Estimated GFR (African America 48 (>=60); Estimated GFR (Non-African Ame 40 (>=60); Globulin 3.2 g/dL; Glucose 156 mg/dL (74-106); Potassium 4.1 mmol/L (3.5-5.1); Sodium 137 mmol/L (136-145); Total Protein 6.8 g/dL (6.4-8.2); Troponin I High Sensitivity 15.7 pg/mL (4.0-76.1)
[2023-09-29] MEDS: 0.9 % SODIUM CHLORIDE 1,000 ML 1000 ML IV (19:20)
[2023-09-29 19:43] LABS: Troponin I High Sensitivity 19.7 pg/mL (4.0-76.1)
== END 2023-09-29 20:30 | disposition home or self-care (01) ==
PROVIDERS: Emergency Medicine; Emergency Provider Emergency Medicine; PCP Internal Medicine
DX: S09.8XXA Other specified injuries of head, initial encounter (principal); R55 Syncope and collapse; Z79.01 Long term (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 of anticoagulants
CPT/HCPCS: 36415; 70450; 80053; 84484; 85025; 93005; 96360; 99285

== ENCOUNTER 2023-11-01 07:48 | Outpatient (OUT) | payer MEDICARE, SELFPAY ==
--- OUTSIDE RECORDS SUMMARY | 2023-11-01 08:08 | XMS_ITS | CCD ---
Author Organization [facility] Care Team Providers Care Plush Dresser Name Role Phone Gabriel Bello Primary Care Provider [phone] Ryan Negron Attending Provider Gabriel Bello Unavailable Unavailable Unavailable DO Gabriel Bello Primary Care Provider [phone] DO Juan Ventura Attending Provider [phone] Dr. Gabriel Bello Abhilash Primary Care Unavai armani Camp II, Dr. Dev Black Attending Unavailable Ryan GARCIA, Dr. Dev Black Referring Unavailable MISC, DR SHERIFF Attending Unavailable MISC, DR SHREIFF Consulting Unavailable MISC, DR SHERIFF Admitting Unavailable DR GABRIEL BELLO Primary Care Unavailable DR GABRIEL BELLO Primary Care Unavailable ACE, DR RIOS Admitting Unavailable DR GABRIEL BELLO Attending Unavailable DR GABRIEL BELLO Consulting Unavailable DR GABRIEL BELLO Primary Care Unavailable MISC, DR SHERIFF Admitting Unavailable MISC, DR SHERIFF Attending Unavailable MISC, DR SHERIFF Consulting Unavailable DR GABRIEL BELLO Primary Care Unavailable DR GABRIEL BELLO Admitting Unavailable DR GABRIEL BELLO Attending Unavailable DR GABRIEL BELLO Consulting Unavailable ACE, DR RIOS Admitting Unavailable DR GABRIEL BELLO Attending Unavailable DR GABRIEL BELLO Consulting Unavailable DR GABRIEL BELLO Primary Care Unavailable Jj Garcia Unavailable DO Gabriel Bello Primary Care Provider MD Jj Garcia Attending Provider [phone] Gabriel Bello DO Primary Care Provider DEV [...] Attending Unavailable Gabriel Bello Primary Care Unavailable CHRIS PATEL Attending Unavailable GABRIEL BELLO Attending Unavailable GABRIEL BELLO Referring Unavailable LAURA BARROW Attending Unavailable GABRIEL BELLO Referring Unavailable GABRIEL BELLO Attending Unavailable LAURA BARROW Attending Unavailable GABRIEL BELLO Attending Unavailable Unavailable Unavailable Unavailable Allergies Allergy Classification Reported Allergen(s) Allergy Type Date of Onset Reaction(s) Facility (4 sources) Sulfonamides (Antibiotic); Translations: [Sulfa Drugs] Allergy to drug (finding) [place] [address] DO Work Phone: (5 sources) Sulfonamides (Antibiotic); Translations: [SULFA (SULFONAMIDE ANTIBIOTICS)] Allergy to substance [address] [facility] (1 source) Sulfonamides (Antibiotic) Drug allergy (disorder) [facility] (2 sources) Substance with sulfonamide structure and antibacterial mechanism of action (substance) Drug allergy Unknown [facility] Other Medications Current Medications Medication Drug Class(es) Dates Sig (Normalized) Sig (Original) amylase 600821 unt / lipase 55051 unt / protease 96129 unt delayed release oral capsule (3 sources) Start: 11-17-2022 take 1 capsule by mouth three times daily at mealtime fohvhx-ioxlvxji-ee ylase (Creon) 24,000-76,000 -120,000 unit capsule Take 1 capsule by mouth 3 times a day with meals. 0 11/17/2022 Active Start: 11-17-2022 Creon 12360-98 000 UNIT 1 with each meal Orally daily for 30 days Oct, Active ascorbic acid 500 mg oral capsule (4 sources) Vitamin C take 1 capsule by mouth once daily ascorbic acid, vitamin C, 500 mg capsule Take 1 capsule by mouth once daily. 0 Active atorvastatin 10 mg oral tablet (9 sources) HMG-CoA Reductase Inhibitor Start: take 10 mg by mouth once daily [...] December 05, 2021 12:00am polyethylene glycol 3350 287022 mg / potassium chloride 2970 mg / sodium bicarbonate 6740 mg / sodium chloride 5860 mg / sodium sulfate 94596 mg powder for oral solution (2 sources) [...] mouth see administration instructions. 0 Active Vit C,H-Oj-Shlje-Lutein -Zeaxan (Preservision Areds-2) 250-90-40-1 mg Capsule (3 sources) Start: 12-05-2021 Vit C,J-Lx-Isyni-Lutein- Zeaxan (Preservision Areds-2) 250-90-40-1 mg Capsule Active 1 TAB PO Every morning December 05, 2021 12:47pm Start: 12-05-2021 Vit C,E-Zn-Director Of Nurses Registry uv-Zbfraa-Zhdswv (Preservision Areds-2) 250-90-40-1 mg Capsule Active 1 [...] inophen Discontinued 1 TAB PO Q8H 14 7 December 08, 2021 December 24, 2022 11:27am ascorbic acid 226 mg / beta carotene 31570 unt / cuprous oxide 0.8 mg / [...] Cephalexin Discontinued 500 MG PO Q8H 21 7 December 08, 2021 12:00am December 24, 2022 [...] te Episodic/Chronic Other aftercare (1 source) Other terminologist (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; Translations: [OTH HALF-WAY CURRENT DRUG THERAPY] Onset: 11-06-2021 Episodic Other [...] sb-mton 09-13-2023 PET psma initial tx sb-mt [facility] [place] [address] Nuclear Medicine Report Signed Patient: Dev Walsh MR#: [id number] : 1940 Acct:[id number] Age/Sex: 83 / M ADM Date: 09/13/23 Loc: Room: Type: [facility] Attending Dr: NON STAFF Copies to: NON STAFF Jordan Story [...] Jordan Story M.D.09/13/2023 3:20 PM Dictation Location: [place] [address] Transcribed By: [facility] 09/13/23 1520 Dictated By: Jordan Story II, MD 09/13/23 1515 Signed By: 09/13/23 1520 Normal [facility] ECG 12 [place] 07-13-2023 Sinus rhythm with frequent PVCs Otherwise normal EKG QTc 444 ms [facility] Work Phone: [facility] 12-24-2022 L Specimen: [id number] Received: 12/24/22 Status: DEONDRE Garnerdia Num: [id number] Spec Type: Surgical Subm Dr: Jj Garcia MD Tissues: A Colon Biopsy (RANDOM COLON) B Colon Biopsy (ASCENDING POLYP) Procedures: HE/Catherine, Gross/Micro L4/2 Age/ Patient Sex Location Account Attending Physician Dev Walsh/Jed [id number] Jj Garcia MD SPEC NUM: [id number] RECD: 12/24/22 STATUS: DEONDRE GARNERDia NUM: [id number] JARRET: 12/24/22- [facility] DR: Jj Garcia MD ENTERED: 12/24/[address]: SPEC TYPE: Surgical DEPT: S ORDERED: HE/4, Gross/Micro L4/2 ORDERED: HE/4, Gross/Micro L4/2 Pathological Diagnosis A. Colon, random [...] submitted in one cassette labeled B1. Specimen: [id number] Received: 12/24/22 Status: DEONDRE Lewis Num: [id number] Spec Type: Surgical Subm Dr: Jj Garcia MD Tissues: A Colon Biopsy (RANDOM COLON) B Colon Biopsy (ASCENDING POLYP) Procedures: Liztet VASQUEZ/Micro L4/2 Patient: Dev Walsh [id number] (Continued) Specimen: [id number] Received: 12/24/22 (Continued) Signed (signature on file) Natan Davidson MD 12/29/22 1658 Specimen: [id number] Received: 12/24/22 Status: DEONDRE Lewis Num: [id number] Spec Type: Surgical Subm Dr: Jj Garcia MD Tissues: A Colon Biopsy (RANDOM COLON) B Colon Biopsy (ASCENDING POLYP) Procedures: HE/Catherine, Gross/Micro L4/2 Patient: Dev Walsh [id number] (Continued) Specimen: [id number] Received: 12/24/22 (Continued) Microscopic Description A. Two H E slides reviewed. The microscopic examination confirms the diagnosis. B. Two H E slides reviewed. The microscopic examination confirms the diagnosis. CPT Codes 40646f2 Specimen: [id number] Received: 12/24/22 Status: DEONDRE [place] Num: [id number] Spec Type: Surgical Subm Dr: Jj Garcia MD Tissues: A Colon Biopsy (RANDOM COLON) B Colon Biopsy (ASCENDING POLYP) Procedures: Lizett VASQUEZ/Saurabh L4/2 Patient: Dev Walsh [id number] (Continued) Signed (signature on file) Natan Davidson MD 12/29/22 1384 Normal [facility] Blood Urea Nitrogenon 2022 Urea nitrogen [Mass/Vol] 31 mg/dL High 7-25 [facility] Comment on above: Order Comment: Reaso n for Exam Change in bowel habits Performed By: #### T SH3, BUN, CREAT #### [address] C reactive protein [Mass/vol ume] in Serum or PlasmaOrdered By: Jj Garcia on 11-26-2022 CRP [Mass/Vol] < 0.5 mg/dL 0.0-0.5 [facility] C-Reactive Proteinon 023 CRP [Mass/Vol] mg/L Normal 0.0-0.5 [facility] Comment on above: Order Comment: Reaso n for Exam Change in bowel habits Result Comment: PERF ORMED BY: [place] [address] PATHOLOGIST RADIOLOGY SPECIALIST WILMA MANTILLA M.D. Performed By: #### C RP, ESR #### [facility] [address] [place] [address] #### HIV SCREEN #### [facility] , CT abdomen pelvis w conon CT abdomen pelvis w con [facility] Main [place] [address] [place] [address] CT Scan Report Signed Patient: Dev Walsh MR#: [id number] : 1940 Acct:[id number] Age/Sex: 82 / M ADM Date: 11/26/22 Loc: CT Room: Type: [facility] Attending Dr: Jj Garcia MD Copies to: [...] seen. Impression dictated by: Jered Mandujano Jr., Elizabeth11/26/2022 7:19 PM Dictation Location: [place] [address] Transcribed By: [facility] 11/26/221918 Dictated By: Jered Mandujano Jr, DO 11/26/221906 Signed By: 11/26/221918 Normal [facility] Creatinineon 11-26-2022 Creatinine [Mass/Vol] 1.55 mg/dL High 0.70-1.30 [facility] Comment on above: Order Comment: Reaso n for Exam Change in bowel habits Performed By: #### T SH3, BUN, CREAT #### [facility] [address] GFR/1.73 sq M.predicted MDRD (S/P/Bld) [Vol rate/Area] 43.863 mL/min/{1.73_m2} Normal [facility] Comment on above: Order Comment: Reaso n for Exam Change in bowel habits Performed By: #### T SH3, BUN, CREAT #### [facility] [address] [place] [id number] [facility] Creatinine [Mass/volume] in Serum or PlasmaOrdered By: Gabriel Bello on 11-26-2022 Creatinine [Mass/Vol] 1.55 mg/dL 0.70-1.30 [facility] Erythrocyte Sedimentation Ra juli 11-26-2022 ESR (Bld) [Velocity] 18 mm/h Normal 0-19 [facility] Comment on above: Order Comment: Reaso n for Exam Change in bowel habits Result Comment: PERF ORMED BY: [place] [address] PATHOLOGIST RADIOLOGY SPECIALIST WILMA MANTILLA M.D. Performed By: #### C RP, ESR #### [address] #### HIV SCREEN #### [facility] , Erythrocyte sedimentation ra te by Photometric methodOrdered By: Jj Garcia on 11-26-2022 ESR Photometric method (Bld) [Velocity] 18 mm/hr 0-19 [facility] HIV 1/O/2 Antigen/Antibodyon 11-26-2022 HIV Screen 4th Generation Non-Reactive Normal Non Reactive [facility] Comment on above: Order Comment: Reaso n for Exam Change in bowel habits Result Comment: HIV Negative HIV-1/HIV-2 antibodies and HIV-1 p24 antigen were NOT detected. There is no laboratory evidence of HIV infection. Performed at: [facility] [id number] [employer] C[employer]: Miguel Cullen PhD, Phone: [phone] PERFORMED BY: [place] [address] PATHOLOGIST RADIOLOGY SPECIALIST WILMA MANTILLA M.D. Performed By: #### C RP, ESR #### [address] #### HIV SCREEN #### [facility] , No Panel InformationOrdered By: Gabriel Bello on 11-26-2022 Estimated GFR (CKD-EPI) 43.863 mL/Min [facility] Creatinine Clearance (Chem N/A [facility] Thyroid Stimulating Hormoneo n 11-26-2022 TSH Qn 1.23 m[IU]/L Normal 0.45-5.33 [facility] Comment on above: Order Comment: Reaso n for Exam Change in bowel habits Result Comment: PERF ORMED BY: [place] [address] PATHOLOGIST RADIOLOGY SPECIALIST WILMA MANTILLA M.D. Performed By: #### T SH3, BUN, CREAT #### [facility] [address] Thyrotropin [Units/volume] i n Serum or PlasmaOrdered By: Jj Garcia on 11-26-2022 TSH Qn 1.23 m[IU]/L 0.45-5.33 [facility] Urea nitrogen [Mass/volume] in Serum or PlasmaOrdered By: Gabriel Bello on 11-26-2022 Urea nitrogen [Mass/Vol] 31 mg/dL 7 [facility] PANCREATIC ELASTASE FECALon 09-08-2022 Pancreatic Elastase, Fecal 86 ug Elast./g Critically low >200 [facility] Comment on above: Result Comment: Re sults verified by repeat testing Severe Pancreatic Insufficiency: <100 Moderate Pancreatic Insufficiency: 100 - 200 Normal: >200 Performed By: #### L IPID, TSH, CMP #### [facility] [address] [place] [address] Dr. Leesa Urbina CELIAC ANTIBODIES PROFILEon 09-04-2022 Deamidated Gliadin Abs, IgA 8 units Normal 0-19 [facility] Comment on above: Result Comment: Nega tive 0 - 19 Weak Positive 20 - 30 Moderate to Strong Positive >30 Performed By: #### C ELIACP #### [facility] [address] [place] [address] Dr. Leesa Urbina Deamidated Gliadin Abs, IgG 4 units Normal 0-19 [facility] Comment on above: Result Comment: Nega tive 0 - 19 Weak Positive 20 - 30 Moderate to Strong Positive >30 Performed By: #### C ELIACP #### [facility] [address] [place] [address] [address] Leesa Urbina Endomysial Antibody IgA Negative Normal Negative [facility] Comment on above: Performed By: #### C ELIACP #### [facility] [address] [place] [address] Dr. Leesa Urbina Immunoglobulin A, Qn, Serum 143 mg/dL Normal 61-437 [facility] Comment on above: Performed By: #### C ELIACP #### [facility] [address] [place] [address] Dr. Leesa Urbina t-Transglutaminase (tTG) IgA <2 Normal 0-3 [facility] Comment on above: Result Comment: Nega tive 0 - 3 Weak Positive 4 - 10 Positive >10 . Tissue Transglutaminase (tTG) has been identified as the endomysial antigen. Studies have demonstr- ated that endomysial IgA antibodies have over 99% specificity for gluten sensitive enteropathy. Performed By: #### C ELIACP #### [facility] [address] [place] [address] Dr. Leesa Urbina t-Transglutaminase (tTG) IgG 6 U/mL Critically high 0-5 [facility] Comment on above: Result Comment: Nega tive 0 - 5 Weak Positive 6 - 9 Positive >9 Performed By: #### C ELIACP #### [facility] [address] [place] [address] Dr. Leesa Urbina CBC AUTO DIFFon 09-03-2022 BASO # 0.1 103/ul Normal 0.0-0.1 [facility] Comment on above: Performed By: #### L IPID, TSH, CMP #### [facility] [address] [place] [address] Dr. Leesa Urbina Basophils/100 WBC (Bld) 1.1 % Normal 0.2-2.0 [facility] Comment on above: Performed By: #### L IPID, TSH, CMP #### [facility] [address] [place] [address] Dr. Leesa Urbina EO # 0.6 103/ul Normal 0.0-0.7 [facility] Comment on above: Performed By: #### L IPID, TSH, CMP #### [facility] [address] [place] [address] Dr. Leesa Urbina Eosinophils/100 WBC (Bld) 7.9 % Critically high 0.9-7.0 [facility] Comment on above: Performed By: #### L IPID, TSH, CMP #### [facility] [address] [place] [address] Dr. Leesa Urbina Erythrocyte distribution width (RBC) [Ratio] 13.6 % Normal 11.0-15.0 [facility] Comment on above: Performed By: #### L IPID, TSH, CMP #### [facility] [address] [place] [address] Dr. Leesa Urbina Hematocrit (Bld) [Volume fraction] 34.4 % Critically low 42.0-54.0 [facility] Comment on above: Performed By: #### L IPID, TSH, CMP #### [facility] [address] [place] [address] Dr. Leesa Urbina Hemoglobin (Bld) [Mass/Vol] 11.4 g/dL Critically low 14.0-18.0 [facility] Comment on above: Performed By: #### L IPID, TSH, CMP #### [facility] [address] [place] [address] Dr. Leesa Urbina IG # 0.02 10e3/ul Normal 0.00-0.03 [facility] Comment on above: Performed By: #### L IPID, TSH, CMP #### [facility] [address] [place] [address] Dr. Leesa Urbina IG % 0.3 % Normal 0.0-0.5 [facility] Comment on above: Performed By: #### L IPID, TSH, CMP #### [facility] [address] [place] [address] Dr. Leesa Urbina LYMPH # 2.1 103/ul Normal 1.2-3.8 [facility] Comment on above: Performed By: #### L IPID, TSH, CMP #### [facility] [address] [place] [address] Dr. Leesa Urbina Lymphocytes/100 WBC (Bld) 28.1 % Normal 20.5-60.0 [facility] Comment on above: Performed By: #### L IPID, TSH, CMP #### [facility] [address] [place] [address] Dr. Leesa Urbina MANUAL DIFF REQ NO Normal [facility] Comment on above: Performed By: #### L IPID, TSH, CMP #### [facility] [address] [place] [address] Dr. Leesa Urbina MCH (RBC) [Entitic mass] 31.1 pg Normal 25.9-34.0 [facility] Comment on above: Performed By: #### L IPID, TSH, CMP #### [facility] [address] [place] [address] Dr. Leesa Urbina MCHC (RBC) [Mass/Vol] 33.1 g/dL Normal 29.9-35.2 [facility] Comment on above: Performed By: #### L IPID, TSH, CMP #### [facility] [address] [place] [address] Dr. Leesa Urbina MCV (RBC) [Entitic vol] 93.7 fL Normal 80.0-94.0 [facility] Comment on above: Performed By: #### L IPID, TSH, CMP #### [facility] [address] [place] [address] Dr. Leesa Urbina MONO # 0.4 103/ul Normal 0.3-0.8 [facility] Comment on above: Performed By: #### L IPID, TSH, CMP #### [facility] [address] [place] [address] Dr. eLesa Urbina Monocytes/100 WBC (Bld) 6.0 % Normal 1.7-12.0 [facility] Comment on above: Performed By: #### L IPID, TSH, CMP #### [facility] [address] [place] [address] Dr. Leesa Urbina NEUT # 4.2 103/ul Normal 1.4-6.5 [facility] Comment on above: Performed By: #### L IPID, TSH, CMP #### [facility] [address] [place] [address] Dr. Leesa Urbina Neutrophils/100 WBC (Bld) 56.6 % Normal 43.0-75.0 [facility] Comment on above: Performed By: #### L IPID, TSH, CMP #### [facility] [address] [place] [address] Dr. Leesa Urbina Platelet mean volume (Bld) [Entitic vol] 10.1 fL Normal 9.5-13.5 [facility] Comment on above: Performed By: #### L IPID, TSH, CMP #### [facility] [address] [place] [address] [address] Leesa Urbina PLT 195 103/ul Normal 150-450 [facility] Comment on above: Performed By: #### L IPID, TSH, CMP #### [facility] [address] [place] [address] [address] Leesa Urbina RBC 3.67 106/ul Critically low 4.70-6.10 [facility] Comment on above: Performed By: #### L IPID, TSH, CMP #### [facility] [address] [place] [address] Dr. Leesa Urbina WBC 7.3 103/ul Normal 4.0-11.0 [facility] Comment on above: Performed By: #### L IPID, TSH, CMP #### [facility] [address] [place] [address] Dr. Leesa Urbina FERRITINon 09-03-2022 Ferritin [Mass/Vol] 44.0 ng/mL Normal 26.0-388.0 [facility] Comment on above: Performed By: #### F ERR, FETIBC #### [facility] [address] [place] [address] Dr. Leesa Urbina IRON AND TIBCon 09-03-2022 % SATURATION 23.5 % Normal [facility] Comment on above: Performed By: #### F ERR, FETIBC #### [facility] [address] [place] [address] Dr. Leesa Urbina Iron [Mass/Vol] 69.0 ug/dL Normal 65.0-175.0 [facility] Comment on above: Performed By: #### F ERR, FETIBC #### [facility] [address] [place] [address] Dr. Leesa Urbina TIBC DIRECT 294.0 ug/dL Normal 250.0-450.0 [facility] Comment on above: Performed By: #### F ERR, FETIBC #### [facility] [address] [place] [address] [address] Leesa Urbina Office Visit (Cardiology)on 07-14-2022 Follow-up visit Diagnoses/Problems Assessed Anticoagulated (V58.61) (Z79.01) Benign essential hypertension (401.1) (I10) Hyperlipidemia (272.4) (E78.5) Paroxysmal atrial fibrillation (427.31) (I48.0) Diabetes mellitus (250.00) (E11.9) Body mass index (BMI) of 24.0 to 24.9 in adult (V85.1) (Z68.24) Never a smoker Orders SocHx: Never a smoker Tobacco Use Screening; Status:Complete; Done: [id number] Patient Instructions Please bring all medicines, vitamins, [...] negative for complaint. Vitals Vital Signs Recorded: [id number] 09:08AM Heart Rate68, L Radial Qyjvbqjz621, LUE, Sitting Ymzuxqpay77, LUE, Sitting Height5 ft 11 in Bmvoli893 lb BMI Cltiehhshk12.13 kg/m2 BSA Calculated1.98 Tobacco Useb) No PHQ-2 [...] Screening.on 023 Adult depression screening assessment No [facility] 250 DO Work Phone: Fall risk assessment a) No falls within the last year [facility] 250 DO Work Phone: Tobacco use status [facility] b) No [facility] 250 DO Work Phone: CBC AUTO DIFFon 05-06-2022 BASO # 0.1 103/ul Normal 0.0-0.1 [facility] Comment on above: Performed By: #### C BC #### [facility] [address] [place] [address] Dr. Leesa Urbina Basophils/100 WBC (Bld) 1.4 % Normal 0.2-2.0 [facility] Comment on above: Performed By: #### C BC #### [facility] [address] [place] [address] Dr. Leesa Urbina EO # 0.4 103/ul Normal 0.0-0.7 [facility] Comment on above: Performed By: #### C BC #### [facility] [address] [place] [address] Dr. Leesa Urbina Eosinophils/100 WBC (Bld) 5.4 % Normal 0.9-7.0 [facility] Comment on above: Performed By: #### C BC #### [facility] [address] [place] [address] Dr. Leesa Urbina Erythrocyte distribution width (RBC) [Ratio] 13.3 % Normal 11.0-15.0 [facility] Comment on above: Performed By: #### C BC #### [facility] [address] [place] [address] Dr. Leesa Urbina Hematocrit (Bld) [Volume fraction] 35.8 % Critically low 42.0-54.0 [facility] Comment on above: Performed By: #### C BC #### [facility] [address] [place] [address] Dr. Leesa Urbina Hemoglobin (Bld) [Mass/Vol] 12.0 g/dL Critically low 14.0-18.0 [facility] Comment on above: Performed By: #### C BC #### [facility] [address] [place] [address] Dr. Leesa Urbina IG # 0.01 10e3/ul Normal 0.00-0.03 [facility] Comment on above: Performed By: #### C BC #### [facility] [address] [place] [address] Dr. Leesa Urbina IG % 0.2 % Normal 0.0-0.5 [facility] Comment on above: Performed By: #### C BC #### [facility] [address] [place] [address] Dr. Leesa Urbina LYMPH # 1.7 103/ul Normal 1.2-3.8 [facility] Comment on above: Performed By: #### C BC #### [facility] [address] [place] [address] Dr. Leesa Urbina Lymphocytes/100 WBC (Bld) 26.1 % Normal 20.5-60.0 [facility] Comment on above: Performed By: #### C BC #### [facility] [address] [place] [address] Dr. Leesa Urbina MANUAL DIFF REQ NO Normal [facility] Comment on above: Performed By: #### C BC #### [facility] [address] [place] [address] Dr. Leesa Urbina MCH (RBC) [Entitic mass] 31.0 pg Normal 25.9-34.0 [facility] Comment on above: Performed By: #### C BC #### [facility] [address] [place] [address] Dr. Leesa Urbina MCHC (RBC) [Mass/Vol] 33.5 g/dL Normal 29.9-35.2 [facility] Comment on above: Performed By: #### C BC #### [facility] [address] [place] [address] Dr. Leesa Urbina MCV (RBC) [Entitic vol] 92.5 fL Normal 80.0-94.0 [facility] Comment on above: Performed By: #### C BC #### [facility] [address] [place] [address] Dr. Leesa Urbina MONO # 0.4 103/ul Normal 0.3-0.8 [facility] Comment on above: Performed By: #### C BC #### [facility] [address] [place], [place] [address] Dr. Leesa Urbina Monocytes/100 WBC (Bld) 6.5 % Normal 1.7-12.0 [facility] Comment on above: Performed By: #### C BC #### [facility] [address] [place] [address] Dr. Leesa Urbina NEUT # 4.0 103/ul Normal 1.4-6.5 [facility] Comment on above: Performed By: #### C BC #### [facility] [address] [place] [address] Dr. Leesa Urbina Neutrophils/100 WBC (Bld) 60.4 % Normal 43.0-75.0 [facility] Comment on above: Performed By: #### C BC #### [facility] [address] [place] [address] Dr. Leesa Urbina Platelet mean volume (Bld) [Entitic vol] 10.6 fL Normal 9.5-13.5 [facility] Comment on above: Performed By: #### C BC #### [facility] [address] [place] [address] Dr. Leesa Urbina PLT 185 103/ul Normal 150-450 [facility] Comment on above: Performed By: #### C BC #### [facility] [address] [place] [address] Dr. Leesa Urbina RBC 3.87 106/ul Critically low 4.70-6.10 [facility] Comment on above: Performed By: #### C BC #### [facility] [address] [address] [address] Leesa Urbina WBC 6.6 103/ul Normal 4.0-11.0 [facility] Comment on above: Performed By: #### C BC #### [facility] [address] [address] [address] Leesa Urbina GLYCOHEMOGLOBIN A1Con 2021 ADA RECOMMENDATION SEE BELOW Normal [facility] Comment on above: Result Comment: ADA RECOMMENDED LIMIT 4.0 - 6.0 ADA THERAPEUTIC TARGET < 7.0 ACTION SUGGESTED > 7.0 Performed By: #### A 1C #### [facility] [address] [address] [address] Leesa Urbina Glucose [Mass/Vol] 151 mg/dL Normal [facility] Comment on above: Performed By: #### A 1C #### [facility] [address] [address] [address] Leesa Urbina HbA1c (Bld) [Mass fraction] 6.9 % Critically high 4.5-6.2 [facility] Comment on above: Performed By: #### A 1C #### [facility] [address] [address] [address] Leesa Urbina LIPID PROFILEon 05-06-2022 CHOL-HDL RATIO NORM SEE BELOW Normal [facility] Comment on above: Result Comment: 3.3 - 4.4 LOW RISK 4.4 - 7.1 AVERAGE RISK 7.1 - 11.0 MODERATE RISK >11.0 HIGH RISK Performed By: #### L IPID, TSH, CMP #### [facility] [address] [address] [address] Leesa Urbina Cholesterol [Mass/Vol] 136 mg/dL Normal <=200 [facility] Comment on above: Performed By: #### L IPID, TSH, CMP #### [facility] [address] [address] [address] Leesa Urbina Cholesterol in HDL [Mass/Vol] 62 mg/dL Critically high 40-60 [facility] Comment on above: Performed By: #### L IPID, TSH, CMP #### [facility] [address] [address] [address] Leesa Urbina Cholesterol in LDL [Mass/Vol] 53.0 mg/dL Normal [facility] Comment on above: Performed By: #### L IPID, TSH, CMP #### [facility] [address] [address] [address] Leesa Urbina Cholesterol.total/Chol esterol in HDL [Mass ratio] 2.2 {ratio} Normal [facility] Comment on above: Performed By: #### L IPID, TSH, CMP #### [facility] [address] [address] [address] Leesa Urbina HDL NORMAL > or = 60 mg/dl - LOW CARDIOVASCULAR RISK <40 mg/dl - HIGH CARDIOVASCULAR RISK Normal [facility] Comment on above: Performed By: #### L IPID, TSH, CMP #### [facility] [address] [address] [address] Leesa Urbina LDL CALC NORMAL SEE BELOW Normal [facility] Comment on above: Result Comment: <100 mg/dl OPTIMAL 100 - 129 mg/dl NEAR OR ABOVE OPTIMAL 130 - 159 mg/dl BORDERLINE HIGH 160 - 189 mg/dl HIGH >190 mg/dl VERY HIGH Performed By: #### L IPID, TSH, CMP #### [facility] [address] [address] [address] Leesa Urbina Triglyceride [Mass/Vol] 105 mg/dL Normal <=150 [facility] Comment on above: Performed By: #### L IPID, TSH, CMP #### [facility] [address] [address] [address] Leesa Urbina VLDL CALC 21.0 mg/dL Normal [facility] Comment on above: Performed By: #### L IPID, TSH, CMP #### [facility] [address] [address] [address] Leesa Urbina PROF 14(COMP METB)on 022 Albumin [Mass/Vol] 3.4 g/dL Normal 3.4-5.0 [facility] Comment on above: Performed By: #### L IPID, TSH, CMP #### [facility] [address] [address] [address] Leesa Urbina Albumin/Globulin [Mass ratio] 1.1 {ratio} Normal [facility] Comment on above: Performed By: #### L IPID, TSH, CMP #### [facility] [address] [address] [address] Leesa Urbina ALP [Catalytic activity/Vol] 77 U/L Normal 46-116 [facility] Comment on above: Performed By: #### L IPID, TSH, CMP #### [facility] [address] [address] [address] Leesa Urbina ALT [Catalytic activity/Vol] 12 U/L Critically low 16-63 [facility] Comment on above: Performed By: #### L IPID, TSH, CMP #### [facility] [address] [address] [address] Leesa Urbina Anion gap [Moles/Vol] 12.7 mmol/L Normal [facility] Comment on above: Performed By: #### L IPID, TSH, CMP #### [facility] [address] [address] [address] Leesa Urbina AST [Catalytic activity/Vol] 19 U/L Normal 15-37 [facility] Comment on above: Performed By: #### L IPID, TSH, CMP #### [facility] [address] [address] [address] Leesa Urbina Bilirubin [Mass/Vol] 0.4 mg/dL Normal 0.2-1.0 [facility] Comment on above: Performed By: #### L IPID, TSH, CMP #### [facility] [address] [address] [address] Leesa Urbina Calcium [Mass/Vol] 8.5 mg/dL Normal 8.5-10.1 [facility] Comment on above: Performed By: #### L IPID, TSH, CMP #### [facility] [address] [address] [address] Leesa Urbina Chloride [Moles/Vol] 107 mmol/L Normal 98-107 [facility] Comment on above: Performed By: #### L IPID, TSH, CMP #### [facility] [address] [address] [address] Leesa Urbina CO2 [Moles/Vol] 27.4 mmol/L Normal 21.0-32.0 [facility] Comment on above: Performed By: #### L IPID, TSH, CMP #### [facility] [address] [address] [address] Leesa Urbina Creatinine [Mass/Vol] 1.06 mg/dL Normal 0.70-1.30 [facility] Comment on above: Performed By: #### L IPID, TSH, CMP #### [facility] [address] [place] [address] Dr. Leesa Urbina EGFR-AF BURKINAN >60 Normal >=60 [facility] Comment on above: Performed By: #### L IPID, TSH, CMP #### [facility] [address] [place] [address] Dr. Leesa Urbina EGFR-NON AF BURKINAN >60 Normal >=60 [facility] Comment on above: Performed By: #### L IPID, TSH, CMP #### [facility] [address] [place] [address] Dr. Leesa Urbina Globulin (S) [Mass/Vol] 3.1 g/dL Normal [facility] Comment on above: Performed By: #### L IPID, TSH, CMP #### [facility] [address] [place] [address] Dr. Leesa Urbina Glucose [Mass/Vol] 171 mg/dL Critically high 74-106 [facility] Comment on above: Performed By: #### L IPID, TSH, CMP #### [facility] [address] [place] [address] Dr. Leesa Ubrina Potassium [Moles/Vol] 4.1 mmol/L Normal 3.5-5.1 [facility] Comment on above: Performed By: #### L IPID, TSH, CMP #### [facility] [address] [place] [address] Dr. Leesa Urbina Protein [Mass/Vol] 6.5 g/dL Normal 6.4-8.2 [facility] Comment on above: Performed By: #### L IPID, TSH, CMP #### [facility] [address] [address] [address] Leesa Urbina Sodium [Moles/Vol] 143 mmol/L Normal 136-145 [facility] Comment on above: Performed By: #### L IPID, TSH, CMP #### [facility] [address] [address] [address] Leesa Urbina Urea nitrogen [Mass/Vol] 24.0 mg/dL Critically high 7.0-18.0 [facility] Comment on above: Performed By: #### L IPID, TSH, CMP #### [facility] [address] [address] [address] Leesa Urbina Urea nitrogen/Creatinine [Mass ratio] 22.6 mg/mg Normal [facility] Comment on above: Performed By: #### L IPID, TSH, CMP #### [facility] [address] [address] [address] Leesa Urbina Basophils Auto (Bld) [#/Vol] Ordered By: Juan Ventura on 12-05-2021 Basophils (Bld) [#/Vol] 0.1 10*3/uL 0.0-0.2 [facility] Basophils/100 WBC Auto (Bld) Ordered By: Juan Ventura on 12-05-2021 Basophils/100 WBC (Bld) 0.9 % [facility] Blood hemoglobin measurement (mass/volume)Ordered By: Juan Ventura on 12-05-2021 Hemoglobin (Bld) [Mass/Vol] 12.4 g/dL 13.0-17.0 [facility] Blood leukocytes automated c ount (number/volume)Ordered By: Juan Ventura on 12-05-2021 WBC (Bld) [#/Vol] 7.0 10*3/uL 4.5-11.0 [facility] COVID-19 Positive/NegativeOr dered By: Juan Ventura on 12-05-2021 SARS-CoV-2 (COVID-19) N gene RENETTA+probe Ql (Resp) Negative Negative [facility] Comment on above: Testing for SARS-CoV -2 by RT-PCR This test was developed and its performance characteristics determined by [employer] ([employer] and validated at the [facility]. This test has not been FDA [...] on 12-05-2021 Creatinine [Mass/Vol] 1.28 mg/dL 0.64-1.27 [facility] Eosinophils Auto (Bld) [#/Vo l]Ordered By: Juan Ventura on 12-05-2021 Eosinophils (Bld) [#/Vol] 0.1 10*3/uL 0.0-0.45 [facility] Eosinophils/100 WBC Auto (Bl d)Ordered By: Juan Ventura on 12-05-2021 Eosinophils/100 WBC (Bld) 2.1 % [facility] Erythrocyte distribution wid th Auto (RBC) [Ratio]Ordered By: Juan Ventura on 12-05-2021 Erythrocyte distribution width (RBC) [Ratio] 14.6 % 12.0-14.8 [facility] Estimated glomerular filtrat ion rate (GFR) non- AmericanOrdered By: Juan Ventura on 12-05-2021 GFR/1.73 sq M.predicted among non-blacks MDRD (S/P/Bld) [Vol rate/Area] 54 mL/Min [facility] Hematocrit Auto (Bld) [Volum e fraction]Ordered By: Juan Ventura on 12-05-2021 Hematocrit (Bld) [Volume fraction] 37.3 % 38.8-50.0 [facility] - Hematology and Cell countsOrdered By: Juan Ventura on 12-05-2021 Nucleated RBC/100 WBC (Bld) [Ratio] 0.0 % 0-0.5 [facility] Lymphocytes Auto (Bld) [#/Vo l]Ordered By: Jaun Ventura on 12-05-2021 Lymphocytes (Bld) [#/Vol] 1.4 10*3/uL 1.00-4.8 [facility] Lymphocytes/100 WBC Auto (Bl d)Ordered By: Juan Ventura on 12-05-2021 Lymphocytes/100 WBC (Bld) 19.8 % [facility] MCH Auto (RBC) [Entitic mass ]Ordered By: Juan Ventura on 12-05-2021 MCH (RBC) [Entitic mass] 30.8 pg 27.5-35.2 [facility] MCHC Auto (RBC) [Mass/Vol]Or dered By: Juan Ventura on 12-05-2021 MCHC (RBC) [Mass/Vol] 33.1 g/dL 32.5-35.6 [facility] MCV Auto (RBC) [Entitic vol] Ordered By: Juan Ventura on 12-05-2021 MCV (RBC) [Entitic vol] 93.1 fL 83.5-101 [facility] Monocytes Auto (Bld) [#/Vol] Ordered By: Juan Ventura on 12-05-2021 Monocytes (Bld) [#/Vol] 0.5 10*3/uL 0.0-0.8 [facility] Monocytes/100 WBC Auto (Bld) Ordered By: Juan Ventura on 12-05-2021 Monocytes/100 WBC (Bld) 7.3 % [facility] Neutrophils Auto (Bld) [#/Vo l]Ordered By: Juan Ventura on 12-05-2021 Neutrophils (Bld) [#/Vol] 4.9 10*3/uL 1.8-7.7 [facility] Neutrophils/100 WBC Auto (Bl d)Ordered By: Juan Ventura on 12-05-2021 Neutrophils/100 WBC (Bld) 69.9 % [facility] No Panel InformationOrdered By: Juan Ventura on 12-05-2021 Estimated GFR () > 60 mL/Min [facility] Comment on above: GFR estimated refere nce range: According to KDOQI guidelines, <60 ml/min/1.73m2 is sufficient to diagnose a patient with chronic kidney disease. Pharmacy Creatinine Clearance (Chem N/A [facility] Platelet mean volume Auto (B ld) [Entitic vol]Ordered By: Juan Ventura on 12-05-2021 Platelet mean volume (Bld) [Entitic vol] 8.9 fL 6.6-10.1 [facility] Platelets Auto (Bld) [#/Vol] Ordered By: Juan Ventura on 12-05-2021 Platelets (Bld) [#/Vol] 194 10*3/uL 150-450 [facility] RBC Auto (Bld) [#/Vol]Ordere d By: Juan Ventura on 12-05-2021 RBC (Bld) [#/Vol] 4.00 10*6/uL 3.90-5.60 [facility] Serum or plasma calcium fco urement (mass/volume)Ordered By: Juan Venutra on 12-05-2021 Calcium [Mass/Vol] 9.2 mg/dL 8.2-10.2 [facility] Serum or plasma chloride daniel surement (moles/volume)Ordered By: Juan Ventura on 12-05-2021 Chloride [Moles/Vol] 107 mmol/L 95-114 [facility] Serum or plasma glucose fco urement (mass/volume)Ordered By: Juan Ventura on 12-05-2021 Glucose [Mass/Vol] 117 mg/dL 70-100 [facility] Comment on above: ADA recommended refe rence range Random Glucose Reference Range is dependent on time and content of last meal. Glucose of more than 200 mg/dL in a nonstressed, ambulatory subject supports the diagnosis of Diabetes Mellitus. Serum or plasma potassium me asurement (moles/volume)Ordered By: Juan Ventura on 12-05-2021 Potassium [Moles/Vol] 4.6 mmol/L 3.5-5.1 [facility] Serum or plasma sodium measu rement (moles/volume)Ordered By: Juan Ventura on 12-05-2021 Sodium [Moles/Vol] 141 mmol/L 136-146 [facility] Serum or plasma total carbon dioxide measurement (moles/volume)Ordered By: Juan Ventura on 12-05-2021 CO2 [Moles/Vol] 26.2 mmol/L 22.0-30.0 [facility] Serum or plasma urea nitroge n measurement (mass/volume)Ordered By: Juan Ventura on 12-05-2021 Urea nitrogen [Mass/Vol] 23 mg/dL 9-23 [facility] CBC AUTO DIFFon 11-05-2021 BASO # 0.1 103/ul Normal 0.0-0.1 [facility] Comment on above: Performed By: #### C BC #### [facility] [address] [address] [address] Leesa Urbina Basophils/100 WBC (Bld) 0.8 % Normal 0.2-2.0 [facility] Comment on above: Performed By: #### C BC #### [facility] [address] [address] [address] Leesa Urbina EO # 0.4 103/ul Normal 0.0-0.7 [facility] Comment on above: Performed By: #### C BC #### [facility] [address] [address] [address] Leesa Urbina Eosinophils/100 WBC (Bld) 5.6 % Normal 0.9-7.0 [facility] Comment on above: Performed By: #### C BC #### [facility] [address] [address] [address] Leesa Urbina Erythrocyte distribution width (RBC) [Ratio] 13.4 % Normal 11.0-15.0 [facility] Comment on above: Performed By: #### C BC #### [facility] [address] [place] [address] Dr. Leesa Urbina Hematocrit (Bld) [Volume fraction] 36.1 % Critically low 42.0-54.0 [facility] Comment on above: Performed By: #### C BC #### [facility] [address] [place] [address] Dr. Leesa Urbina Hemoglobin (Bld) [Mass/Vol] 11.8 g/dL Critically low 14.0-18.0 [facility] Comment on above: Performed By: #### C BC #### [facility] [address] [place] [address] Dr. Leesa Urbina IG # 0.02 10e3/ul Normal 0.00-0.03 [facility] Comment on above: Performed By: #### C BC #### [facility] [address] [place] [address] Dr. Leesa Urbina IG % 0.3 % Normal 0.0-0.5 [facility] Comment on above: Performed By: #### C BC #### [facility] [address] [place] [address] Dr. Leesa Urbina LYMPH # 1.8 103/ul Normal 1.2-3.8 [facility] Comment on above: Performed By: #### C BC #### [facility] [address] [place] [address] Dr. Leesa Urbina Lymphocytes/100 WBC (Bld) 28.4 % Normal 20.5-60.0 [facility] Comment on above: Performed By: #### C BC #### [facility] [address] [place] [address] Dr. Leesa Urbina MANUAL DIFF REQ NO Normal [facility] Comment on above: Performed By: #### C BC #### [facility] [address] [place] [address] Dr. Leesa Urbina MCH (RBC) [Entitic mass] 30.7 pg Normal 25.9-34.0 [facility] Comment on above: Performed By: #### C BC #### [facility] [address] [address] [address] Leesa Urbina MCHC (RBC) [Mass/Vol] 32.7 g/dL Normal 29.9-35.2 [facility] Comment on above: Performed By: #### C BC #### [facility] [address] [place] [address] Dr. Leesa Urbina MCV (RBC) [Entitic vol] 94.0 fL Normal 80.0-94.0 [facility] Comment on above: Performed By: #### C BC #### [facility] [address] [place] [address] Dr. Leesa Urbina MONO # 0.5 103/ul Normal 0.3-0.8 [facility] Comment on above: Performed By: #### C BC #### [facility] [address] [place] [address] Dr. Leesa Urbina Monocytes/100 WBC (Bld) 8.1 % Normal 1.7-12.0 [facility] Comment on above: Performed By: #### C BC #### [facility] [address] [place] [address] Dr. Leesa Urbina NEUT # 3.5 103/ul Normal 1.4-6.5 [facility] Comment on above: Performed By: #### C BC #### [facility] [address] [place] [address] Dr. Leesa Urbina Neutrophils/100 WBC (Bld) 56.8 % Normal 43.0-75.0 [facility] Comment on above: Performed By: #### C BC #### [facility] [address] [place] [address] Dr. Leesa Urbina Platelet mean volume (Bld) [Entitic vol] 10.3 fL Normal 9.5-13.5 [facility] Comment on above: Performed By: #### C BC #### [facility] [address] [place] [address] Dr. Leesa Urbina PLT 179 103/ul Normal 150-450 [facility] Comment on above: Performed By: #### C BC #### [facility] [address] [address] [address] Leesa Urbina RBC 3.84 106/ul Critically low 4.70-6.10 [facility] Comment on above: Performed By: #### C BC #### [facility] [address] [address] [address] Leesa Urbina WBC 6.2 103/ul Normal 4.0-11.0 [facility] Comment on above: Performed By: #### C BC #### [facility] [address] [address] [address] Leesa Urbina GLYCOHEMOGLOBIN A1Con 2021 ADA RECOMMENDATION SEE BELOW Normal [facility] Comment on above: Result Comment: ADA RECOMMENDED LIMIT 4.0 - 6.0 ADA THERAPEUTIC TARGET < 7.0 ACTION SUGGESTED > 7.0 Performed By: #### L IPID, TSH, CMP #### [facility] [address] [place] [address] Dr. Leesa Urbina Glucose [Mass/Vol] 151 mg/dL Normal [facility] Comment on above: Performed By: #### L IPID, TSH, CMP #### [facility] [address] [place] [address] Dr. Leesa Urbina HbA1c (Bld) [Mass fraction] 6.9 % Critically high 4.5-6.2 [facility] Comment on above: Performed By: #### L IPID, TSH, CMP #### [facility] [address] [place] [address] Dr. Leesa Urbina LIPID PROFILEon 11-05-2021 CHOL-HDL RATIO NORM SEE BELOW Normal [facility] Comment on above: Result Comment: 3.3 - 4.4 LOW RISK 4.4 - 7.1 AVERAGE RISK 7.1 - 11.0 MODERATE RISK >11.0 HIGH RISK Performed By: #### L IPID, TSH, CMP #### [facility] [address] [place] [address] Dr. Leesa Urbina Cholesterol [Mass/Vol] 150 mg/dL Normal <=200 [facility] Comment on above: Performed By: #### L IPID, TSH, CMP #### [facility] [address] [address] [address] Leesa Urbina Cholesterol in HDL [Mass/Vol] 60 mg/dL Normal 40-60 [facility] Comment on above: Performed By: #### L IPID, TSH, CMP #### [facility] [address] [address] [address] Leesa Urbina Cholesterol in LDL [Mass/Vol] 70.8 mg/dL Normal [facility] Comment on above: Performed By: #### L IPID, TSH, CMP #### [facility] [address] [address] [address] Leesa Urbina Cholesterol.total/Chol esterol in HDL [Mass ratio] 2.5 {ratio} Normal [facility] Comment on above: Performed By: #### L IPID, TSH, CMP #### [facility] [address] [address] [address] Leesa Urbina HDL NORMAL > or = 60 mg/dl - LOW CARDIOVASCULAR RISK <40 mg/dl - HIGH CARDIOVASCULAR RISK Normal [facility] Comment on above: Performed By: #### L IPID, TSH, CMP #### [facility] [address] [place] [address] Dr. Leesa Urbina LDL CALC NORMAL SEE BELOW Normal [facility] Comment on above: Result Comment: <100 mg/dl OPTIMAL 100 - 129 mg/dl NEAR OR ABOVE OPTIMAL 130 - 159 mg/dl BORDERLINE HIGH 160 - 189 mg/dl HIGH >190 mg/dl VERY HIGH Performed By: #### L IPID, TSH, CMP #### [facility] [address] [address] [address] Leesa Urbina Triglyceride [Mass/Vol] 96 mg/dL Normal <=150 [facility] Comment on above: Performed By: #### L IPID, TSH, CMP #### [facility] [address] [place] [address] Dr. Leesa Urbina VLDL CALC 19.2 mg/dL Normal [facility] Comment on above: Performed By: #### L IPID, TSH, CMP #### [facility] [address] [address] [address] Leesa Urbina MICROALB CREAT RATIO RANDOMo n 11-05-2021 mALB <1.3 Normal <=30.0 [facility] Comment on above: Performed By: #### L IPID, TSH, CMP #### [facility] [address] [address] [address] Leesa Urbina MALB CR RATIO 11.4 mg/g Normal 0.0-29.9 [facility] Comment on above: Performed By: #### L IPID, TSH, CMP #### [facility] [address] [place] [address] Dr. Leesa Urbina MALB CR RATIO RANGE SEE BELOW Normal [facility] Comment on above: Result Comment: NO M ICROALBUMINURIA 0-29 MG/G CLINICAL MICROALBUMINURIA 30-300 MG/G MACROALBUMINURIA >300 MG/G Performed By: #### L IPID, TSH, CMP #### [facility] [address] [place] [address] Dr. Leesa Urbina URINE CREAT 114.03 mg/dL Normal 20.00-300.00 [facility] Comment on above: Performed By: #### L IPID, TSH, CMP #### [facility] [address] [place] [address] Dr. Leesa Urbina PROF 14(COMP METB)on 022 Albumin [Mass/Vol] 2.3 g/dL Critically low 3.4-5.0 [facility] Comment on above: Performed By: #### L IPID, TSH, CMP #### [facility] [address] [place] [address] Dr. Leesa Urbina Albumin/Globulin [Mass ratio] 0.5 {ratio} Normal [facility] Comment on above: Performed By: #### L IPID, TSH, CMP #### [facility] [address] [place] [address] Dr. Leesa Urbina ALP [Catalytic activity/Vol] 77 U/L Normal 46-116 [facility] Comment on above: Performed By: #### L IPID, TSH, CMP #### [facility] [address] [address] [address] Leesa Urbina ALT [Catalytic activity/Vol] 16 U/L Normal 16-63 [facility] Comment on above: Performed By: #### L IPID, TSH, CMP #### [facility] [address] [address] [address] Leesa Urbina Anion gap [Moles/Vol] 13.8 mmol/L Normal [facility] Comment on above: Performed By: #### L IPID, TSH, CMP #### [facility] [address] [address] [address] Leesa Urbina AST [Catalytic activity/Vol] 15 U/L Normal 15-37 [facility] Comment on above: Performed By: #### L IPID, TSH, CMP #### [facility] [address] [place] [address] Dr. Leesa Urbina Bilirubin [Mass/Vol] 0.5 mg/dL Normal 0.2-1.0 [facility] Comment on above: Performed By: #### L IPID, TSH, CMP #### [facility] [address] [place] [address] Dr. Leesa Urbina Calcium [Mass/Vol] 8.7 mg/dL Normal 8.5-10.1 [facility] Comment on above: Performed By: #### L IPID, TSH, CMP #### [facility] [address] [place] [address] Dr. Leesa Urbina Chloride [Moles/Vol] 107 mmol/L Normal 98-107 [facility] Comment on above: Performed By: #### L IPID, TSH, CMP #### [facility] [address] [place] [address] Dr. Leesa Urbina CO2 [Moles/Vol] 26.2 mmol/L Normal 21.0-32.0 [facility] Comment on above: Performed By: #### L IPID, TSH, CMP #### [facility] [address] [place] [address] Dr. Leesa Urbina Creatinine [Mass/Vol] 1.25 mg/dL Normal 0.70-1.30 [facility] Comment on above: Performed By: #### L IPID, TSH, CMP #### [facility] [address] [address] [address] Leesa Urbina EGFR-AF BURKINAN >60 Normal >=60 [facility] Comment on above: Performed By: #### L IPID, TSH, CMP #### [facility] [address] [place] [address] Dr. Leesa Urbina EGFR-NON AF BURKINAN 55 mL/min/1.73m2 Critically low >=60 [facility] Comment on above: Performed By: #### L IPID, TSH, CMP #### [facility] [address] [place] [address] Dr. Leesa Urbina Globulin (S) [Mass/Vol] 4.3 g/dL Normal [facility] Comment on above: Performed By: #### L IPID, TSH, CMP #### [facility] [address] [place] [address] Dr. Leesa Urbina Glucose [Mass/Vol] 137 mg/dL Critically high 74-106 [facility] Comment on above: Performed By: #### L IPID, TSH, CMP #### [facility] [address] [place] [address] Dr. Leesa Urbina Potassium [Moles/Vol] 4.0 mmol/L Normal 3.5-5.1 [facility] Comment on above: Performed By: #### L IPID, TSH, CMP #### [facility] [address] [place] [address] Dr. Leesa Urbina Protein [Mass/Vol] 6.6 g/dL Normal 6.4-8.2 [facility] Comment on above: Performed By: #### L IPID, TSH, CMP #### [facility] [address] [place] [address] Dr. Leesa Urbina Sodium [Moles/Vol] 143 mmol/L Normal 136-145 [facility] Comment on above: Performed By: #### L IPID, TSH, CMP #### [facility] [address] [place] [address] Dr. Leesa Urbina Urea nitrogen [Mass/Vol] 24.0 mg/dL Critically high 7.0-18.0 [facility] Comment on above: Performed By: #### L IPID, TSH, CMP #### [facility] [address] [address] [address] Leesa Urbina Urea nitrogen/Creatinine [Mass ratio] 19.2 mg/mg Normal [facility] Comment on above: Performed By: #### L IPID, TSH, CMP #### [facility] [address] [address] [address] Leesa Urbina TSHon 11-05-2021 TSH 0.996 uIU/mL Normal 0.358-3.740 [facility] Comment on above: Performed By: #### L IPID, TSH, CMP #### [facility] [address] [address] [address] Leesa Urbina Tobacco Screening.on 022 Adult depression screening assessment No [facility] 250 DO Work Phone: Fall risk assessment a) No falls within the last year [facility] 250 DO Work Phone: Tobacco use status [facility] b) No [facility] 250 DO Work Phone: Vital Signs Date Time Vital Sign Value Performing Clinician Facility 07-13-2023 08:34-0500 Body height 180.3 cm Dev Camp MD Work Phone: [facility] 07-13-2023 08:34-0500 Body mass index (BMI) [Ratio] 23.99 kg/m2 Dev Camp MD Work Phone: [facility] 07-13-2023 08:34-0500 Body weight 78.02 kg Dev Camp MD Work Phone: [facility] 07-13-2023 08:34-0500 Diastolic blood pressure 64 mm[Hg] Dev Camp MD Work Phone: [facility] 07-13-2023 08:34-0500 Heart rate 60 /min Dev Camp MD Work Phone: [facility] 07-13-2023 08:34-0500 Systolic blood pressure 108 mm[Hg] Dev Camp MD Work Phone: [facility] 11-17-2022 14:15-0400 Body height 180.34 cm Imad Asaad Other RECESS. [facility] [employer] Other 11-17-2022 14:15-0400 Body mass index (BMI) [Ratio] 23.71 kg/m2 Imad Asaad Other [employer] Other 11-17-2022 14:15-0400 Body weight 77.11 kg Imad Asaad Other [employer] Other 11-17-2022 14:15-0400 Diastolic blood pressure 78 mm[Hg] Imad Asaad Other [employer] Other 11-17-2022 14:15-0400 Systolic blood pressure 127 mm[Hg] Imad Asaad Other [employer] Other 07-14-2022 09:08-0500 Body height 180.34 cm Gabriel Bello Work Phone: [facility] [employer] 250 DO Work Phone: 07-14-2022 09:08-0500 Body mass index (BMI) [Ratio] 24.13 kg/m2 Gabriel Bello Work Phone: [facility] [employer] 250 DO Work Phone: 07-14-2022 09:08-0500 Body surface area Derived from formula 1.98 m2 Gabriel Bello Work Phone: [facility] [employer] 250 DO Work Phone: 07-14-2022 09:08-0500 Body weight 78.47 kg Gabriel Bello Work Phone: [facility] 250 DO Work Phone: 07-14-2022 09:08-0500 Diastolic blood pressure 78 mm[Hg] Gabriel Bello Work Phone: [facility] 250 DO Work Phone: 07-14-2022 09:08-0500 Heart rate 68 /min Gabriel Bello Work Phone: [facility] 250 DO Work Phone: 07-14-2022 09:08-0500 Systolic blood pressure 124 mm[Hg] Gabriel Bello Work Phone: [facility] 250 DO Work Phone: 07-03-2021 15:20-0500 Diastolic blood pressure 78 mm[Hg] Gabriel Bello Work Phone: [facility] 250 DO Work Phone: 07-03-2021 15:20-0500 Heart rate 65 /min Gabriel Bello Work Phone: [facility] 250 DO Work Phone: 07-03-2021 15:20-0500 Systolic blood pressure 136 mm[Hg] Gabriel Bello Work Phone: [facility] 250 DO Work Phone: 07-03-2021 15:17-0500 Body height 180.34 cm Gabriel Bello Work Phone: [facility] 250 DO Work Phone: 07-03-2021 15:17-0500 Body mass index (BMI) [Ratio] 24.97 kg/m2 Gabriel Bello Work Phone: [facility] 250 DO Work Phone: 07-03-2021 15:17-0500 Body surface area Derived from formula 2.01 m2 Gabriel Bello Work Phone: [facility] 250 DO Work Phone: 07-03-2021 15:17-0500 Body weight 81.19 kg Gabriel Bello Work Phone: [facility] 250 DO Work Phone: 07-03-2021 15:17-0500 Diastolic blood pressure 80 mm[Hg] Gabriel Bello Work Phone: [facility] 250 DO Work Phone: 07-03-2021 15:17-0500 Systolic blood pressure 151 mm[Hg] Gabriel Bello Work Phone: [facility] 250 DO Work Phone: Encounters Encounter Date Encounter Type Care Provider Facility Start: 10-26-2023 End: 10-26-2023 ambulatory LAURA Alicia BARROW Not Available Start: 10-08-2023 End: 10-08-2023 ambulatory GABRIEL BELLO Not Available Start: 10-07-2023 End: 10-07-2023 ambulatory GABRIEL BELLO Not Available Start: 10-07-2023 End: 10-07-2023 ambulatory GABRIEL BELLO Not Available Start: 09-13-2023 End: 09-13-2023 ambulatory Miller Donald Facility:[facility] Start: 09-13-2023 End: 09-13-2023 ambulatory DO Garbiel Bello Work Phone: [facility] Work Phone: Start: 09-13-2023 End: 09-13-2023 Patient encounter procedure DO Gabriel Bello Work Phone: [facility]Pet [facility] Work Phone: Start: 07-13-2023 End: 07-13-2023 ambulatory DEV CAMP [facility] Start: 07-13-2023 End: 07-13-2023 Office outpatient visit 25 minutes Dev Camp MD Work Phone: [facility] Comment on above: Benign essential hyp ertension (Primary Dx); Mixed hyperlipidemia; Paroxysmal atrial fibrillation (CMS/HCC); Former smoker Start: 05-26-2023 End: 05-26-2023 ambulatory CHRIS PATEL Not Available Start: 05-12-2023 End: 05-12-2023 ambulatory GABRIEL BELLO Not Available Start: 04-26-2023 End: 04-26-2023 ambulatory LAURA BARROW Not Available Start: 12-24-2022 End: 12-24-2022 ambulatory Imad Asaad Facility:[facility] Start: 11-26-2022 End: 11-26-2022 ambulatory Imad Asaad Facility:[facility] Start: 11-26-2022 End: 11-26-2022 ambulatory DO Gabriel Bello Work Phone: [facility] Work Phone: Start: 11-26-2022 End: 11-26-2022 Patient encounter procedure DO Gabriel Bello Work Phone: [facility]CT [facility] [place] Work Phone: Start: 11-17-2022 End: 11-17-2022 ambulatory Imad Asaad Other [facility] [employer] Other Start: 11-17-2022 Office outpatient ne w 45 minutes Imad Asaad [facility] Start: 11-17-2022 Telephone encounter Imad Asaad [facility] Start: 09-03-2022 End: 09-04-[address] GABRIEL BELLO Facility: Start: 07-14-2022 Office outpatient visit 25 minutes Gabriel Bello Work Phone: [address] [place] [address] DO Work Phone: Start: 07-14-[address] Gabriel Kulkarni Facility:[id number] Start: 05-25-2022 End: 05-26-[address] GABRIEL BELLO Facility:[facility] Start: 05-06-2022 End: 05-07-[address] GABRIEL BELLO Facility:[facility] Start: 03-27-2022 Rx Renewal Gabriel mae Work Phone: [facility] 250 DO Work Phone: Start: 12-05-2021 End: 12-05-2021 Patient encounter procedure DO Gabriel Bello Work Phone: [facility] Start: 11-20-2021 End: 11-21-[address] DOCTOR BISHOP Facility:[facility] Start: 11-05-2021 End: 11-06-[address] GABRIEL BELLO Facility:[facility] Start: 07-03-2021 Office outpatient visit 25 minutes Gabriel Bello Work Phone: [facility] 250 DO Work Phone: Start: 03-05-2021 Rx Renewal Marina lozada MD Work Phone: [facility] 250 DO Work Phone: Start: 07-12-2020 End: 07-12-2020 Discharged Recurring Gabriel Bello [facility]Covid Vaccine Procedures Date Procedure Procedure Detail [...] By: #### L IPID, TSH, CMP #### [facility] [address] [address] [address] Leesa Urbina Start: 11-20-[address] DOCTOR BISHOP Comment on above: Performed By: #### P SAD #### [facility] [address] [address] [address] Leesa Urbina Appendectomy Gabriel daniel Work Phone: Cataract surgery Gabriel morris Work Phone: Colonoscopy Gabriel daniel Work Phone: Comment on above: [id number] Jovanny Yu; Operation on lip Gabrielata morris Work Phone: Prostatectomy Gabriel mae Work Phone: Plan of Treatment Date Care Activity Detail Author Start: 07-18-2024 End: 07-18-2024 Patient encounter procedure 07/18/2024 8:50 AM EST Office Visit [facility] [address] [place] [id number] Dev Camp MD [address] [place] [address] 2, [address] [address] [facility] Start: 07-13-2023 FUV, Provider: Dev Camp, Status: Alon, Time: 8:50 AM FUV, Provider: Dev Camp, Status: Pen, Time: 8:50 AM [facility] 250 DO Work Phone: Start: 07-14-2022 FUV, Provider: Dev Camp, Status: Alon, Time: 9:10 AM FUV, Provider: Dev Camp, Status: Alon, Time: 9:10 AM [facility] 250 DO Work Phone: Start: 06-24-2021 FUV, Provider: Dev Camp, Status: Alon, Time: 10:15 AM FUV, Provider: Dev Camp, Status: Pen, Time: 10:15 AM [facility] Work Phone: Start: 1960 DTaP/Tdap/Td Vaccine s (1 - Tdap) DTaP/Tdap/Td Vaccines (1 - Tdap) [facility] Start: 1957 Urine screening for protein Diabetes: Urine Protein Screening [facility] Start: 1948 Diabetic foot examination Diabetes: Foot Exam [facility] Start: 1948 Glaucoma screening Diabetes: R etinopathy Screening [facility] Start: 1938 Hemoglobin A1c measurement Diabetes: Hemoglobin A1C [facility] Start: 1938 Lipid panel Lipid Panel [facility] Start: 1938 Medicare Annual Wellness Visit Medicare Annual Wellness Visit (AWV) [facility] HIV 1+2 Ab+HIV1 p24 Ag [Presence] in Serum or Plasma by Immunoassay [facility] Immunizations Immunization Date Immunization Notes Care Provider Fa francisco 04-03-2022 Moderna COVID-19 Biv al Booster 50 MCG/0.5ML Intramuscular Suspension Gabriel Downingman Work Phone[facility] Work Phone: 03-10-2022 Fluad Quadrivalent 0 .5 ML Intramuscular Prefilled Syringe Gabriel Downingman Work Phone: [facility] 250 DO Work Phone: 12-19-2021 Moderna COVID-19 Vac cine 100 MCG/0.5ML Intramuscular Suspension Gabriel Downingman Work Phone: [facility] 250 DO Work Phone: 03-20-2021 Moderna COVID-19 Vac cine 100 MCG/0.5ML Intramuscular Suspension Gabriel Downingman Work Phone: [facility] 03-12-2021 influenza, high dose seasonal, preservative-free Gabriel Blelo Work Phone: [facility] 250 DO Work Phone: 02-26-2021 Fluzone High-Dose Quadrivalent 0.7 ML Intramuscular Suspension Prefilled Syringe Gabriel Bello Work Phone: [facility] 250 DO Work Phone: 07-12-2020 COVID-19 mRNA-1273 (Moderna) [facility] 06-15-2020 COVID-19 mRNA-1273 (Moderna) [facility] 03-15-2020 Fluad Quadrivalent 0 .5 ML Intramuscular Prefilled Syringe Gabriel Bello Work Phone: [facility] 250 DO Work Phone: 02-24-2020 influenza, high dose seasonal, preservative-free Gabriel Bello Work Phone: [facility] 250 DO Work Phone: 03-11-2019 zoster vaccine recombinant Gabriel Bello Work Phone: [facility] 250 DO Work Phone: 03-01-2019 influenza, high dose seasonal, preservative-free Gabriel Bello Work Phone: [facility] 250 DO Work Phone: 02-21-2019 influenza, high dose seasonal, preservative-free Gabriel Bello Work Phone: [facility] 250 DO Work Phone: 12-22-2018 zoster vaccine recombinant Gabriel Bello Work Phone: [facility] 250 DO Work Phone: 02-25-2018 influenza, high dose seasonal, preservative-free Gabriel A Ace Work Phone: [facility] 250 DO Work Phone: 03-16-2017 influenza, high dose seasonal, preservative-free Gabriel Bello Work Phone: [facility] 250 DO Work Phone: 05-24-2016 pneumococcal conjuga te vaccine, 13 valent Gabriel Bello Work Phone: [facility] 03-22-2015 influenza, high dose seasonal, preservative-free Gabriel Bello Work Phone: [facility] 250 DO Work Phone: 05-24-2012 pneumococcal polysaccharide vaccine, 23 valent Gabriel Bello Work Phone: [facility] 05-31-2009 novel influenza-H1N1 -09, preservative-free, injectable Gabriel Bello Work Phone: [place] [address] DO Work Phone: Payers Date Payer Category Payer Medicare [id number] 2022 Self-pay [id number] 1959 Private Health Insurance 101 [id number] 1938 Unknown [id number] 2.16. [id number] 1938 Unknown [id number] 2.16.84 0.1.930892.3.579.2.593 1938 Unknown [id number] 2.16.84 0.1.485968.3.579.2.593 1938 Unknown [id number] 2.16.84 0.1.829223.3.579.2.593 1938 Unknown [id number] 2.16.84 0.1.452310.3.579.2.593 1938 Unknown [id number] 2.16.84 0.1.047444.3.579.2.593 1938 Unknown [id number] 2.16.8 40.1.516099.3.579.2.1244 1938 Unknown [id number] 2.16.84 0.1.535389.3.579.2.1259 1938 Unknown [id number] 2.16.84 0.1.442131.3.579.2.1259 1938 Unknown [id number] 2.16.84 0.1.307532.3.579.2.1259 1938 Unknown [id number] 2.16.84 0.1.040632.3.579.2.1259 1938 Unknown [id number] 2.16.840 .1.545090.3.579.2.1259 1938 Unknown [id number] 2.16.840 .1.890245.3.579.2.1259 1938 Unknown [id number] 2.16.840 .1.890024.3.579.2.1259 Medicare Medicare [id number] Private Health Insurance Self Pay [facility] [id number] Unknown [employer] Unknown [id number] 2.16.8 [id number] Unknown [id number] 2.16.8 40.1.097656.3.579.2.531 Unknown [id number] 2.16.8 40.1.772453.3.579.2.531 Social History Date Type Detail Facility Tobacco smoking status MIIS Unknown if ever smoked [facility] Start: 1940 Sex Assigned At Male F [facility] Start: 07-13-2023 [facility] a [facility]oker [facility] Work Phone: Comment on above: 2-3 drinks a month; Start: 12-05-2021 End: 12-24-2022 Tobacco smoking status NHIS Ex-smoker (finding) [facility] Start: 07-13-2023 Sex Assigned At N [facility] [employer] Other End: 05-24-1989 History of tobacco use Current smoker [facility] Work Phone: End: 05-24-1989 History of tobacco use Cigarette Smoker [facility] Work Phone: Start: 07-13-2023 Tobacco use and exposure Smokeless tobacco non-user [facility] Work Phone: Start: 07-13-2023 Alcohol intake Lifetime non-d joe (finding) [facility] Work Phone: Start: 1940 Sex Assigned At Not on file [facility] Work Phone: Start: 07-03-2023 End: 07-13-2023 Exposure to SARS-CoV-2 (event) Not sure [facility] Goals Date Patient Goal Desired Activity /State [...] by mouth once daily., Disp: , Rfl: sbtsfw-hsmkuzdt-dzijbja (Creon) 24,000-76,000 -120,000 unit capsule, Take 1 [...] Scribe Attestation By signing my name below, I, Marisa Horner LPN , Scribe attest that this documentation [...] discussion and plan. documented in this encounter [facility] Work Phone: Instructions 07-13-2023 Patient Instructions Note [...] of your visit. documented in this encounter [facility] Work Phone: Evaluation note 11-17-2022 Note Date & Type Note Facility 11-17-2022 Evaluation note Encounter Date Diagnosis Assessment Notes Oct, Change in bowel habits (ICD-10 - R19.4) Oct, Diverticulosis (ICD-10 - K57.90) Oct, IBS (irritable bowel syndrome) (ICD-10 - K58.9) Oct, Pancreatic insufficiency (ICD-10 - K86.89) [employer] Other History of Present illness Narrative 07-14-2022 [...] necessary and we suggest follow-up next year [facility] 250 DO Work Phone: Evaluation note Note Date & Type Note Facility Evaluation note No assessment information [facility] Work Phone: Evaluation note Note Date & Type Note Facility Evaluation note No Information [facility] [employer] Other Evaluation note Note Date & Type Note Facility Evaluation note Diagnosis Benign essential hypertension- Primary Essential hypertension, benign Mixed hyperlipidemia Paroxysmal atrial fibrillation (CMS/HCC) Atrial fibrillation Former smoker Personal history of tobacco use, presenting hazards to health documented in this encounter [facility] Work Phone: History general Narrative - Reported Note Date & Type Note Facility History general Narrative - Reported Type Medical History diabetes mallitus Medical History high blood pressure Medical History appendectomy Medical History Palpitations Medical History Malignant neoplasm of prostate Medical History Irritable bowel syndrome Medical History Diabetes mellitus wi thout mention of complication, type II or unspecified [...] Procedure:Knee replacement Surgical History Procedure:35 Radiati on Treatments,6-7;Disease:Reoccurance Prostrate Cancer 2008 Surgical History Procedure:colonoscopy 2010 Surgical History Colonoscopy per Dr. Yu. 11-28-15 Surgical History Left Cataract surgery 10-01-17 Surgical History Right cataract surge ry per in [place], [place]. 10-28-17 Surgical History Mohs repair / left upper lip Hospitalization History see above [employer] Other History of Present illness Narrative Note [...] suggest continued therapy as before without change. -[facility] 250 DO Work Phone: Advance Directives No [...] Referral Specialty Diagnoses / Procedures Referred By Contac t Referred To Contact Diagnoses Paroxysmal atrial fibrillation ([facility]/HCC) Procedures ECG 12 Lead Dev Camp MD [address] [place] [address] 2, [address] [address] Referral ID Status Reason Start Date Expiration Date V isits Requested Visits Authorized [id number] Authorized 07/13/2023 07/12/2024 1 1 Specialty Diagnoses / Procedures Referred By Contac t Referred To Contact Cardiology Diagnoses Paroxysmal atrial fibrillation (CMS/HCC) Procedures Follow Up In Cardiology Dev Camp MD [address] [place] [address] 2, [address] [address] Dev Camp MD [address] [place] [address] 2, [address] [address] Referral ID Status Reason Start Date Expiration Date V isits Requested Visits Authorized [id number] Authorized 07/13/2023 07/12/2024 1 1 Additional Source Comments Care Teams (unrecognized sec tion and content) Team Status: Inactive Member Role Status Dates Gabriel Bello , Primary Care Provider Active Shonna Sim , Family Provider Active Juan Ventura DO Attending Provider Active Team Status: Active Member Role Status Dates Shonna Sim , DO Family Provider Active Gabriel Bello , Primary Care Provider Active Team Status: Inactive Member Role Status Dates Gabriel Bello , Primary Care Provider Active Shonna Sim , Family Provider Active Jj Garcia MD Attending Provider Active Plush Dresser Relationship Specialty Start Date End Date Gabriel Bello DO [address] [place] [address] PCP - General 05/24/99 Team Status: Inactive Member Role Status Dates Gabriel Bello DO Primary Care Provider Active Start: September 13, 2023 End: September 13, 2023 NON STAFF Attending Provider Active Start: Ap 2023 End: September 13, 2023 Goals (unrecognized [...] section and content) DATE CREATED AUTHOR 07/15/2022 [facility] DATE CREATED AUTHOR AUTHOR'S ORGANIZ ATION 07/15/2022 [employer] DATE CREATED AUTHOR AUTHOR'S ORGANIZ ATION 09/10/2022 [facility] DATE CREATED AUTHOR AUTHOR'S ORGANIZ ATION 07/14/2023 [facility] DATE CREATED AUTHOR AUTHOR'S ORGANIZ ATION 09/18/[address] [facility] DATE CREATED AUTHOR AUTHOR'S ORGANIZ ATION 10/27/2023 [facility] EPIC REASON FOR VISIT (unrecogniz ed section and content) Reason Comments Annual Exam Specialty Diagnoses / Procedures Referred By Contac t Referred To Contact Diagnoses Paroxysmal atrial fibrillation (CMS/HCC) Procedures ECG 12 Lead Dev Camp MD [address] [facility] [address] [place] [address] Referral ID Status Reason Start Date Expiration Date V isits Requested Visits Authorized [id number] Authorized 07/13/2023 07/12/2024 1 1 FOR RECORDS [...] BE BASED ON THE PRIMARY CLINICAL RECORDS. [facility]. provides no warranty or guarantee of the accuracy or completeness of information in this document.
[2023-11-01 08:38] LABS: Basophils Absolute Auto 0.1 10^3/uL (0.0-0.1); Basophils Percent Auto 1.1 % (0.2-2.0); Eosinophils Absolute Auto 0.4 10^3/uL (0.0-0.7); Eosinophils Percent Auto 4.7 % (0.9-7.0); Hemoglobin 12.4 g/dL (14.0-18.0); Immature Granulocytes Abs Auto 0.04 10^3/uL (0.00-0.03); Immature Granulocytes Pct Auto 0.5 % (0.0-0.5); Lymphocytes Percent Auto 23.9 % (20.5-60.0); Mean Corpuscular HGB Conc 31.8 g/dL (29.9-35.2); Mean Corpuscular Hemoglobin 30.3 pg (25.9-34.0); Mean Corpuscular Volume 95.4 fL (80.0-94.0); Mean Platelet Volume 10.6 fL (9.5-13.5); Monocytes Absolute Auto 0.6 10^3/uL (0.3-0.8); Monocytes Percent Auto 6.5 % (1.7-12.0); Neutrophils Absolute Auto 5.4 10^3/uL (1.4-6.5); Neutrophils Percent Auto 63.3 % (43.0-75.0); Platelet Count 192 10^3/uL (150-450); Red Blood Count 4.09 10^6/uL (4.70-6.10); Red Cell Distribution Width 13.3 % (11.0-15.0); White Blood Count 8.5 10^3/uL (4.0-11.0)
[2023-11-01 10:20] LABS: Alanine Aminotransferase 20 U/L (16-63); Albumin Globulin Ratio 0.9; Albumin Level 3.3 g/dL (3.4-5.0); Alkaline Phosphatase 98 U/L (46-116); Anion Gap 13.4; Aspartate Amino Transferase 18 U/L (15-37); BUN Creatinine Ratio 14.8; Bilirubin Total 0.6 mg/dL (0.2-1.0); Calcium 8.6 mg/dL (8.5-10.1); Carbon Dioxide 26.6 mmol/L (21.0-32.0); Chloride 107 mmol/L (98-107); Estimated GFR (African America >60 (>=60); Estimated GFR (Non-African Ame 56 (>=60); Globulin 3.5 g/dL; Glucose 148 mg/dL (74-106); Sodium 143 mmol/L (136-145); Total Protein 6.8 g/dL (6.4-8.2)
[2023-11-01 10:55] LABS: Prostate Specific Antigen Dx 0.77 ng/mL (<=4.00)
[2023-11-02 04:08] LABS: Testosterone <3 ng/dL (264-916)
== END 2023-11-01 07:49 | disposition home or self-care (01) ==
LOC: LAB 07:51
PROVIDERS: PCP Internal Medicine
DX: C61 Malignant neoplasm of prostate (principal)
CPT/HCPCS: 36415; 80053; 84153; 84403; 85025

== ENCOUNTER 2023-11-01 07:52 | Outpatient (OUT) | payer MEDICARE, SELFPAY ==
--- OUTSIDE RECORDS SUMMARY | 2023-11-01 08:14 | XMS_ITS ---
Patient Summarization (C-CDA 2.1 CCD) Created on: November 01, 2023 DEV WALSH : 1940 Sex: Male Author Organization Sample organization Care Team Providers Care Bell Spinner Name Role Phone Gabriel Bello Primary Care Provider Ryan Negron Attending Provider Gabriel Bello Unavailable Unavailable Unavailable DO Gabriel Bello Primary Care Provider [phone] DO Juan Ventura Attending Provider Dr. Gabriel Bello [facility] Unabambii armani [facility], Dr. Dev Black Attending Unavailable [facility], Dr. Dev Black Referring Unavailable MISC, DR SHERIFF Attending Unavailable MISC, DR SHERIFF Consulting Unavailable MISC, DR SHERIFF Admitting Unavailable ACE, DR RIOS Primary Care Unavailable ACE, DR RIOS Primary Care Unavailable ACE, DR RIOS Admitting Unavailable ACE, DR RIOS Attending Unavailable DR GABRIEL BELLO Consulting Unavailable DR GABRIEL BELLO Primary Care Unavailable MISC, DR SHERIFF Admitting Unavailable MISC, DR SHERIFF Attending Unavailable MISC, DR SHERIFF Consulting Unavailable DR GABRIEL BELLO Primary Care Unavailable DR GABRIEL BELLO Admitting Unavailable DR GABRIEL BELLO Attending Unavailable ACE, DR RIOS Consulting Unavailable ACE, DR RIOS Admitting Unavailable DR GABRIEL BELLO Attending Unavailable DR GABRIEL BELLO Consulting Unavailable DR GABRIEL BELLO Primary Care Unavailable Jj Garcia Unavailable DO Gabriel Bello Primary Care Provider MD Jj Garcia Attending Provider [phone] Gabriel Bello DO Primary Care Provider EDV CAMP Attending Unavailable GABRIEL BELLO Primary Care [...] BELLO Referring Unavailable GABRIEL BELLO Attending Unavailable PETWINSTON, LAURA Vargas Attending Unavailable GABRIEL BLELO Attending Unavailable Unavailable Unavailable Unavailable Allergies Allergy Classification Reported Allergen(s) Allergy Type Date of Onset Reaction(s) Facility (4 sources) Sulfonamides (Antibiotic); Translations: [Sulfa Drugs] Allergy to drug (finding) [place] [address] DO Work Phone: (5 sources) Sulfonamides (Antibiotic); Translations: [SULFA (SULFONAMIDE ANTIBIOTICS)] Allergy to substance 2 [facility] (1 source) Sulfonamides (Antibiotic) Drug allergy (disorder) [facility] (2 sources) Substance with sulfonamide structure and antibacterial mechanism of action (substance) Drug allergy Unknown [facility] Other Encounters Encounter Date Encounter Type Care Provider Facility Start: 10-26-2023 End: 10-26-2023 ambulatory LAURA A PETANDREZI Not Available Start: 10-08-2023 End: 10-08-2023 ambulatory GABRIEL BELLO Not Available Start: 10-07-2023 End: 10-07-2023 ambulatory GABRIEL BELLO Not Available Start: 10-07-2023 End: 10-07-2023 ambulatory GABRIEL BELLO Not Available Start: 09-13-2023 End: 09-13-2023 ambulatory Miller Donald Facility:[facility] Start: 09-13-2023 End: 09-13-2023 ambulatory DO Gabriel Bello Work Phone: [facility] Work Phone: Start: 09-13-2023 End: 09-13-2023 Patient encounter procedure DO Gabriel Bello Work Phone: [facility]Pet [facility] Work Phone: Start: 07-13-2023 End: 07-13-2023 ambulatory DEV CAMP [facility] Ambulatory Start: 07-13-2023 End: 07-13-2023 Office outpatient visit 25 minutes Dev Camp MD Work Phone: [facility] Comment on above: Benign essential hyp ertension (Primary Dx); Mixed hyperlipidemia; Paroxysmal atrial fibrillation (CMS/HCC); Former smoker Start: 05-26-2023 End: 05-26-2023 ambulatory CHRIS PATEL Not Available Start: 05-12-2023 End: 05-12-2023 ambulatory GABRIEL BELLO Not Available Start: 04-26-2023 End: 04-26-2023 ambulatory LAURA Alicia BARROW Not Available Start: 12-24-2022 End: 12-24-2022 ambulatory Imad Asaad Facility:[facility] Start: 11-26-2022 End: 11-26-2022 ambulatory Imad Asaad Facility:[facility] Start: 11-26-2022 End: 11-26-2022 ambulatory DO Gabrielata Bello Work Phone: [facility] Work Phone: Start: 11-26-2022 End: 11-26-2022 Patient encounter procedure DO Gabriel Bello Work Phone: [facility] [place] Work Phone: Start: 11-17-2022 End: 11-17-2022 ambulatory Imad Asaad Other [employer] Other Start: 11-17-2022 Office outpatient ne w 45 minutes Imad Asaad [facility] Start: 11-17-2022 Telephone encounter Imad Asaad [facility] Start: 09-03-2022 End: 09-04-[address] GABRIEL BELLO Facility:[facility] Start: 07-14-2022 Office outpatient visit 25 minutes Gabriel Bello Work Phone: [facility] 250 DO Work Phone: Start: 07-14-[address] Gabriel Kulkarni Facility:[id number] Start: 05-25-2022 End: 05-26-[address] GABRIEL BELLO Facility:[facility] Start: 05-06-2022 End: 05-07-[address] GABRIEL BELLO Facility:[facility] Start: 03-27-2022 Rx Renewal Gabriel mae Work Phone: [facility] 250 DO Work Phone: Start: 12-05-2021 End: 12-05-2021 Patient encounter procedure DO Gabriel Bello Work Phone: [facility] Start: 11-20-2021 End: 11-21-[address] DOCTOR BISHOP Facility:[facility] Start: 11-05-2021 End: 11-06-[address] GABRIEL BELLO Facility:[facility] Start: 07-03-2021 Office outpatient visit 25 minutes Gabriel Bello Work Phone: [facility] 250 DO Work Phone: Start: 03-05-2021 Rx Renewal Marina lozada MD Work Phone: [facility] 250 DO Work Phone: Start: 07-12-2020 End: 07-12-2020 Discharged Recurring Gabriel Bello [facility] Vaccine Goals Date Patient Goal Desired Activity /State Immunizations Immunization Date Immunization Notes Care Provider Estefanía singh 04-03-2022 Moderna COVID-19 Biv al Booster 50 MCG/0.5ML Intramuscular Suspension Gabriel Bello Work Phone: [facility] 250 DO Work Phone: 03-10-2022 Fluad Quadrivalent 0 .5 ML Intramuscular Prefilled Syringe Gabriel Bello Work Phone: [facility] 250 DO Work Phone: 12-19-2021 Moderna COVID-19 Vac cine 100 MCG/0.5ML Intramuscular Suspension Gabriel Bello Work Phone: [facility] 250 DO Work Phone: 03-20-2021 Moderna COVID-19 Vac cine 100 MCG/0.5ML Intramuscular Suspension Gabriel Bello Work Phone: [facility] 03-12-2021 influenza, high dose seasonal, preservative-free Gabriel Downingman Work Phone: [facility] 250 DO Work Phone: 02-26-2021 Fluzone High-Dose Quadrivalent 0.7 ML Intramuscular Suspension Prefilled Syringe Gabriel Alicia Ace Work Phone: [facility] 250 DO Work Phone: 07-12-2020 COVID-19 mRNA-1273 (Moderna) [facility] 06-15-2020 COVID-19 mRNA-1273 (Moderna) [facility] 03-15-2020 Fluad Quadrivalent 0 .5 ML Intramuscular Prefilled Syringe Gabriel Alicia DowningAce Work Phone: [facility] 250 DO Work Phone: 02-24-2020 influenza, high dose seasonal, preservative-free Gabriel Downingman Work Phone: [facility] 250 DO Work Phone: 03-11-2019 zoster vaccine recombinant Gabriel Alicia Ace Work Phone: [facility] 250 DO Work Phone: 03-01-2019 influenza, high dose seasonal, preservative-free Gabriel Bello Work Phone: [facility] [employer] DO Work Phone: 02-21-2019 influenza, high dose seasonal, preservative-free [facility]: 12-22-2018 zoster vaccine recombinant [facility] Work Phone: 02-25-2018 influenza, high dose seasonal, preservative-free [facility] Work Phone: 03-16-2017 influenza, high dose seasonal, preservative-free [facility] Work Phone: 05-24-2016 pneumococcal conjuga te vaccine, 13 valent Gabriel Bello Work Phone: [facility] 03-22-2015 influenza, high dose seasonal, preservative-free Gabriel [facility] Work Phone: 05-24-2012 pneumococcal polysaccharide vaccine, 23 valent Gabriel Bello Work Phone: [facility] 05-31-2009 novel influenza-H1N1 -09, preservative-free, injectable Gabriel [facility] Work [facility]: Medications Current Medications Medication Drug Class(es) Dates Sig (Normalized) Sig (Original) amylase 055953 unt / lipase 21537 unt / protease 41056 unt delayed release oral capsule (3 sources) Start: 11-17-2022 take 1 capsule by mouth three times daily at mealtime lnpobs-kxxzkfxx-vf ylase (Creon) 24,000-76,000 -120,000 unit capsule Take 1 capsule by mouth 3 times a day with meals. 0 11/17/2022 Active Start: 11-17-2022 Creon 66875-58 000 UNIT 1 with each meal Orally [...] December 05, 2021 12:00am polyethylene glycol 3350 092093 mg / potassium chloride 2970 mg / sodium bicarbonate 6740 mg / sodium chloride 5860 mg / sodium sulfate 46073 mg powder for oral solution (2 sources) [...] mouth see administration instructions. 0 Active Vit C,H-Rr-Gavum-Lutein -Zeaxan (Preservision Areds-2) 250-90-40-1 mg Capsule (3 sources) Start: 12-05-2021 Vit C,Q-Mw-Josku-Lutein- Zeaxan (Preservision Areds-2) 250-90-40-1 mg Capsule Active 1 TAB PO Every morning December 05, 2021 12:47pm Start: 12-05-2021 Vit C,E-Zn-Sales Support Coordinator bf-Csdjwj-Kdneon (Preservision Areds-2) 250-90-40-1 mg Capsule Active 1 [...] ascorbic acid 226 mg / beta carotene 18058 unt / cuprous oxide 0.8 mg / [...] 0 Refills: 0 Ordered: 03-Jul-2021 DO Active Payers Date Payer Category Payer Medicare [id number] 2022 Self-pay [id number] 1959 Private Health Insurance 101 [id number] 1940 Unknown [id number] 2.16. [id number] 1940 Unknown [id number] 2.16.84 0.1.076266.3.579.2.593 1940 Unknown [id number] 2.16.84 0.1.075025.3.579.2.593 1940 Unknown [id number] 2.16.84 0.1.298616.3.579.2.593 1940 Unknown [id number] 2.16.84 0.1.507569.3.579.2.593 1940 Unknown [id number] 2.16.84 0.1.310894.3.579.2.593 1938 Unknown [id number] 2.16.8 40.1.037147.3.579.2.1244 1938 Unknown [id number] 2.16.84 0.1.440894.3.579.2.1259 1938 Unknown [id number] 2.16.84 0.1.025547.3.579.2.1259 1938 Unknown [id number] 2.16.84 0.1.930923.3.579.2.1259 1938 Unknown [id number] 2.16.84 0.1.874945.3.579.2.1259 1938 Unknown [id number] 2.16.840 .1.786695.3.579.2.1259 1938 Unknown [id number] 2.16.840 .1.005852.3.579.2.1259 1938 Unknown [id number] 2.16.840 .1.632628.3.579.2.1259 Medicare Medicare [id number] Private Health Insurance Self Pay [facility] [id number] Unknown [employer] Unknown [id number] 2.16.8 40.1.409947.3.579.2.531 Unknown [id number] 2.16.8 40.1.318152.3.579.2.531 Unknown [id number] 2.16.8 40.1.118608.3.579.2.531 Plan of Treatment Date Care Activity Detail Author Start: 07-18-2024 End: 07-18-2024 Patient encounter procedure 07/18/2024 8:50 AM EST Office Visit [facility] [address] [phone] Dev Camp MD 703 [facility] [address] [address] [facility] Start: 07-13-2023 FUV, Provider: Dev Camp, Status: Alon, Time: 8:50 AM FUV, Provider: Dev Camp, Status: Pen, Time: 8:50 AM [facility] 250 DO Work Phone: Start: 07-14-2022 FUV, Provider: Dev Camp, Status: Alon, Time: 9:10 AM FUV, Provider: Dev Camp, Status: Pen, Time: 9:10 AM [facility] 250 DO Work Phone: Start: 06-24-2021 FUV, Provider: Dev Camp, Status: Pen, Time: 10:15 AM FUV, Provider: Dev Camp, Status: Pen, [facility]: 10:15 [facility] Start: 1960 DTaP/Tdap/Td Vaccine s (1 - Tdap) DTaP/Tdap/Td Vaccines (1 - Tdap) [facility] Start: 1957 Urine screening for protein Diabetes: Urine Protein Screening [facility] Start: 1948 Diabetic foot examination Diabetes: Foot Exam [facility] Start: 1948 Glaucoma screening Diabetes: R etinopathy Screening [facility] Start: 1940 Hemoglobin A1c measurement Diabetes: Hemoglobin A1C [facility] Start: 1940 Lipid panel Lipid Panel [facility] Start: 1940 Medicare Annual Wellness Visit Medicare Annual Wellness Visit (AWV) [facility] HIV 1+2 Ab+HIV1 p24 Ag [Presence] in Serum or Plasma by Immunoassay [facility] Problems Active Problems Problem Classification Problem Date [...] te Episodic/Chronic Other aftercare (1 source) Other 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 accountant (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; Translations: [OTH RF MICROWAVE ENGINEER CURRENT DRUG THERAPY] Onset: 11-06-2021 Episodic Other gastrointestinal disorders (3 sources) Change in bowel habit; Translations: [CHANGE IN BOWEL HABIT] Onset: 09-09-2022 Episodic Pancreatic disorders (not diabetes) (2 sources) Other specified diseases of pancreas; Translations: [Other specified diseases of pancreas] Onset: 11-26-2022 Episodic Unclassified (3 sources) Never smoked tobacco; Translations: [Never a smoker] Unclassified (1 source) Onset: 07-13-2023 07-13-2023 Procedures Date Procedure Procedure Detail Performing Clinician [...] By: #### L IPID, TSH, CMP #### [facility] [address] [place] [address] Dr. Leesa Urbina Start: 11-20-[address] DOCTOR BISHOP Comment on above: Performed By: #### P SAD #### [facility] [address] [place] [address] Dr. Leesa Urbina Appendectomy Gabriel daniel Work Phone: Cataract surgery Gabriel morris Work Phone: Colonoscopy Gabriel daniel Work Phone: Comment on above: [id number] Jovanny Yu; Operation on lip Gabriel morris Work Phone: Prostatectomy Gabriel mae Work Phone: Results Test Name Value Interpretation Reference Range Facility PET psma initial tx sb-mton 09-13-2023 PET psma initial tx sb-mt [facility] [place] [address] Nuclear Medicine Report Signed Patient: Dev Walsh MR#: [id number] : 1940 Acct:[id number] Age/Sex: 83 / M ADM Date: 09/13/23 Loc: Room: Type: [facility] Attending Dr: SYLWIA STAFF Copies to: NON STAFF Jordan Story II, MD Ordering Provider: SYLWIA STAFF Date of Service: 09/13/23 PET/PET psma [...] Jordan Story M.D.09/13/2023 3:20 PM Dictation Location: [facility]- Transcribed By: PWS 09/13/23 152 Dictated By: Jordan Story II, MD 09/13/23 151 Signed By: 09/13/231519 Normal [facility] ECG 12 Leadon 07-13-2023 Sinus rhythm with frequent PVCs Otherwise normal EKG QTc 444 ms [facility] Work Phone: Joni 12-24-2022 L Specimen: [id number] Received: 12/24/22 Status: ALEXABrendon Joshua Num: [id number] Spec Type: Surgical Subm Dr: Jj Garcia MD Tissues: A Colon Biopsy (RANDOM COLON) B Colon Biopsy (ASCENDING POLYP) Procedures: HEATHER/Lizett Alexander/Saurabh L4/2 Age/ Patient Sex Location Account Attending Physician Dev Walsh 82/M [id number] Jj Garcia MD SPEC NUM: [id number] RECD: 12/24/22 STATUS: ALEXABrendon LEWIS NUM: [id number] JARRET: 12/24/22- SUBM DR: Jj Garcia MD ENTERED: 12/24/22 [facility] DR: SPEC TYPE: Surgical DEPT: S ORDERED: [...] submitted in one cassette labeled B1. Specimen: [id number] Received: 12/24/22 Status: DEONDRE Lewis Num: [id number] Spec Type: Surgical Subm Dr: Jj Garcia MD Tissues: A Colon Biopsy (RANDOM COLON) B Colon Biopsy (ASCENDING POLYP) Procedures: HE/4, Gross/Micro L4/2 Patient: Dev Walsh [id number] (Continued) Specimen: [id number] Received: 12/24/22 (Continued) Signed (signature on file) Natan Davidson MD 12/29/221657 Specimen: [id number] Received: 12/24/22 Status: DEONDRE Lewis Num: [id number] Spec Type: Surgical Subm Dr: Jj Garcia MD Tissues: A Colon Biopsy (RANDOM COLON) B Colon Biopsy (ASCENDING POLYP) Procedures: HEATHER/Catherine, Gross/Saurabh L4/2 Patient: Dev Walsh [id number] (Continued) Specimen: [id number] Received: 12/24/22 (Continued) Microscopic Description A. Two H E slides reviewed. The microscopic examination confirms the diagnosis. B. Two H E slides reviewed. The microscopic examination confirms the diagnosis. CPT Codes 99206r4 Specimen: [id number] Received: 12/24/22 Status: DEONDRE Lewis Num: [id number] Spec Type: Surgical Subm Dr: Jj Garcia MD Tissues: A Colon Biopsy (RANDOM COLON) B Colon Biopsy (ASCENDING POLYP) Procedures: HE/4, Gross/Micro L4/2 Patient: Dev Walsh [id number] (Continued) Signed (signature on file) Natan Davidson MD 12/29/22 1658 Normal [facility] Blood Urea Nitrogenon 2022 Urea nitrogen [Mass/Vol] 31 mg/dL High 7-25 [facility] Comment on above: Order Comment: Reaso n for Exam Change in bowel habits Performed By: #### T SH3, BUN, CREAT #### [facility] [address] [place] [address] C reactive protein [Mass/vol ume] in Serum or PlasmaOrdered By: Jj Garcia on 11-26-2022 CRP [Mass/Vol] < 0.5 mg/dL 0.0-0.5 [facility] C-Reactive Proteinon 023 CRP [Mass/Vol] mg/L Normal 0.0-0.5 [facility] Comment on above: Order Comment: Reaso n for Exam Change in bowel habits Result Comment: PERF ORMED BY: [place] [address] PATHOLOGIST GARAGE WORKER WILMA MANTILLA M.D. Performed By: #### C RP, ESR #### [facility] [address] [place] [address] [place] #### HIV SCREEN #### [facility] , CT abdomen pelvis w conon CT abdomen pelvis w [facility] [place] [address] CT Scan Report Signed Patient: Dev Walsh MR#: [id number] : 1940 Acct:[id number] Age/Sex: 82 / M ADM Date: 11/26/22 Loc: CT Room: Type: [facility] Attending Dr: Jj Garcia MD Copies [...] seen. Impression dictated by: Jered Mandujano Jr., D.O.11/26/2022 7:19 PM Dictation Location: [place] [address] Transcribed By: [facility] 11/26/221918 Dictated By: Jered Mandujano Jr, DO 11/26/221906 Signed By: 11/26/221918 Normal [facility] Creatinineon 11-26-2022 Creatinine [Mass/Vol] 1.55 mg/dL High 0.70-1.30 [facility] Comment on above: Order Comment: Reaso n for Exam Change in bowel habits Performed By: #### T SH3, BUN, CREAT #### [facility] [address] [place] [address] GFR/1.73 sq M.predicted MDRD (S/P/Bld) [Vol rate/Area] 43.863 mL/min/{1.73_m2} Normal [facility] Comment on above: Order Comment: Reaso n for Exam Change in bowel habits Performed By: #### T SH3, BUN, CREAT #### [address] Creatinine [Mass/volume] in Serum or PlasmaOrdered By: Gabriel Bello on 11-26-2022 Creatinine [Mass/Vol] 1.55 mg/dL 0.70-1.30 [facility] Erythrocyte Sedimentation Ra juli 11-26-2022 ESR (Bld) [Velocity] 18 mm/h Normal 0-19 [facility] Comment on above: Order Comment: Reaso n for Exam Change in bowel habits Result Comment: PERF ORMED BY: [place] [address] PATHOLOGIST GARAGE WORKER WILMA MANTILLA M.D. Performed By: #### C RP, ESR #### [address] #### HIV SCREEN #### [facility] , Erythrocyte sedimentation ra te by Photometric methodOrdered By: Jj Garcia on 11-26-2022 ESR Photometric method (Bld) [Velocity] 18 mm/hr 0-19 [facility] HIV 1/O/2 Antigen/Antibodyon 11-26-2022 HIV Screen 4th Generation Non-Reactive Normal Non Reactive [facility] Comment on above: Order Comment: Reaso n for Exam Change in bowel habits Result Comment: HIV Negative HIV-1/HIV-2 antibodies and HIV-1 p24 antigen were NOT detected. There is no laboratory evidence of HIV infection. Performed at: [facility] [address] [id number] Transit Bus Operator: Miguel Cullen PhD, Phone: [phone] PERFORMED BY: [place] [address] PATHOLOGIST GARAGE WORKER WILMA MANTILLA M.D. Performed By: #### C RP, ESR #### [facility] [address] [place] [address] [place] #### HIV SCREEN #### [facility] , No Panel InformationOrdered By: Gabriel Bello on 11-26-2022 Estimated GFR (CKD-EPI) 43.863 mL/Min [facility] Creatinine Clearance (Chem N/A [facility] Thyroid Stimulating Hormoneo n 11-26-2022 TSH Qn 1.23 m[IU]/L Normal 0.45-5.33 [facility] Comment on above: Order Comment: Reaso n for Exam Change in bowel habits Result Comment: PERF ORMED BY: [place] [address] PATHOLOGIST GARAGE WORKER WILMA MANTILLA M.D. Performed By: #### T SH3, BUN, CREAT #### [facility] [address] [place] [address] Thyrotropin [Units/volume] i n Serum or PlasmaOrdered By: Imad Asaad on 11-26-2022 TSH Qn 1.23 m[IU]/L 0.45-5.33 [facility] Urea nitrogen [Mass/volume] in Serum or PlasmaOrdered By: Gabriel Bello on 11-26-2022 Urea nitrogen [Mass/Vol] 31 mg/dL 7- [facility] PANCREATIC ELASTASE FECALon 09-08-2022 Pancreatic Elastase, Fecal 86 ug Elast./g Critically low >200 [facility] Comment on above: Result Comment: Re sults verified by repeat testing Severe Pancreatic Insufficiency: <100 Moderate Pancreatic Insufficiency: 100 - 200 Normal: >200 Performed By: #### L IPID, TSH, CMP #### [facility] [address] [place] [address] [address] Leesa Urbina CELIAC ANTIBODIES PROFILEon 09-04-2022 Deamidated Gliadin Abs, IgA 8 units Normal 0-19 [facility] Comment on above: Result Comment: Nega tive 0 - 19 Weak Positive 20 - 30 Moderate to Strong Positive >30 Performed By: #### C ELIACP #### [facility] [address] [place] [address] [address] Leesa Urbina Deamidated Gliadin Abs, IgG 4 units Normal 0-19 [facility] Comment on above: Result Comment: Nega tive 0 - 19 Weak Positive 20 - 30 Moderate to Strong Positive >30 Performed By: #### C ELIACP #### [facility] [address] [place] [address] Dr. Leesa Urbina Endomysial Antibody IgA Negative Normal Negative [facility] Comment on above: Performed By: #### C ELIACP #### [facility] [address] [place] [address] [address] Leesa Urbina Immunoglobulin A, Qn, Serum 143 mg/dL Normal 61-437 [facility] Comment on above: Performed By: #### C ELIACP #### [facility] [address] [place] [address] Dr. Leesa Urbina t-Transglutaminase (tTG) IgA <2 Normal 0-3 [facility] Comment on above: Result Comment: Nega tive 0 - 3 Weak Positive 4 - 10 Positive >10 . Tissue Transglutaminase (tTG) has been identified as the endomysial antigen. Studies have demonstr- ated that endomysial IgA antibodies have over 99% specificity for gluten sensitive enteropathy. Performed By: #### C ELIACP #### [facility] [address] [place] [address] Dr. Leesa Urbina t-Transglutaminase (tTG) IgG 6 U/mL Critically high 0-5 [facility] Comment on above: Result Comment: Nega tive 0 - 5 Weak Positive 6 - 9 Positive >9 Performed By: #### C ELIACP #### [facility] [address] [place] [address] Dr. Leesa Urbina CBC AUTO DIFFon 09-03-2022 BASO # 0.1 103/ul Normal 0.0-0.1 [facility] Comment on above: Performed By: #### L IPID, TSH, CMP #### [facility] [address] [place] [address] [address] Leesa Urbina Basophils/100 WBC (Bld) 1.1 % Normal 0.2-2.0 [facility] Comment on above: Performed By: #### L IPID, TSH, CMP #### [facility] [address] [place] [address] Dr. Leesa Urbina EO # 0.6 103/ul Normal 0.0-0.7 [facility] Comment on above: Performed By: #### L IPID, TSH, CMP #### [facility] [address] [place] [address] Dr. Leesa Urbina Eosinophils/100 WBC (Bld) 7.9 % Critically high 0.9-7.0 [facility] Comment on above: Performed By: #### L IPID, TSH, CMP #### [facility] [address] [place] [address] Dr. Leesa Urbina Erythrocyte distribution width (RBC) [Ratio] 13.6 % Normal 11.0-15.0 [facility] Comment on above: Performed By: #### L IPID, TSH, CMP #### [facility] [address] [place] [address] Dr. Leesa Urbina Hematocrit (Bld) [Volume fraction] 34.4 % Critically low 42.0-54.0 [facility] Comment on above: Performed By: #### L IPID, TSH, CMP #### [facility] [address] [place] [address] Dr. Leesa Urbina Hemoglobin (Bld) [Mass/Vol] 11.4 g/dL Critically low 14.0-18.0 [facility] Comment on above: Performed By: #### L IPID, TSH, CMP #### [facility] [address] [place] [address] Dr. Leesa Urbina IG # 0.02 10e3/ul Normal 0.00-0.03 [facility] Comment on above: Performed By: #### L IPID, TSH, CMP #### [facility] [address] [place] [address] Dr. Leesa Urbina IG % 0.3 % Normal 0.0-0.5 [facility] Comment on above: Performed By: #### L IPID, TSH, CMP #### [facility] [address] [address] [address] Leesa Urbina LYMPH # 2.1 103/ul Normal 1.2-3.8 [facility] Comment on above: Performed By: #### L IPID, TSH, CMP #### [facility] [address] [address] [address] Leesa Urbina Lymphocytes/100 WBC (Bld) 28.1 % Normal 20.5-60.0 [facility] Comment on above: Performed By: #### L IPID, TSH, CMP #### [facility] [address] [place] [address] Dr. Leesa Uribna MANUAL DIFF REQ NO Normal [facility] Comment on above: Performed By: #### L IPID, TSH, CMP #### [facility] [address] [place] [address] Dr. Leesa Urbina MCH (RBC) [Entitic mass] 31.1 pg Normal 25.9-34.0 [facility] Comment on above: Performed By: #### L IPID, TSH, CMP #### [facility] [address] [place] [address] Dr. Leesa Urbina MCHC (RBC) [Mass/Vol] 33.1 g/dL Normal 29.9-35.2 [facility] Comment on above: Performed By: #### L IPID, TSH, CMP #### [facility] [address] [place] [address] Dr. Leesa Urbina MCV (RBC) [Entitic vol] 93.7 fL Normal 80.0-94.0 [facility] Comment on above: Performed By: #### L IPID, TSH, CMP #### [facility] [address] [place] [address] Dr. Leesa Urbina MONO # 0.4 103/ul Normal 0.3-0.8 [facility] Comment on above: Performed By: #### L IPID, TSH, CMP #### [facility] [address] [place] [address] Dr. Leesa Urbina Monocytes/100 WBC (Bld) 6.0 % Normal 1.7-12.0 [facility] Comment on above: Performed By: #### L IPID, TSH, CMP #### [facility] [address] [place] [address] Dr. Leesa Urbina NEUT # 4.2 103/ul Normal 1.4-6.5 [facility] Comment on above: Performed By: #### L IPID, TSH, CMP #### [facility] [address] [place] [address] Dr. Leesa Urbina Neutrophils/100 WBC (Bld) 56.6 % Normal 43.0-75.0 [facility] Comment on above: Performed By: #### L IPID, TSH, CMP #### [facility] [address] [place] [address] Dr. Leesa Urbina Platelet mean volume (Bld) [Entitic vol] 10.1 fL Normal 9.5-13.5 [facility] Comment on above: Performed By: #### L IPID, TSH, CMP #### [facility] [address] [place] [address] Dr. Leesa Urbina PLT 195 103/ul Normal 150-450 [facility] Comment on above: Performed By: #### L IPID, TSH, CMP #### [facility] [address] [place] [address] Dr. Leesa Urbina RBC 3.67 106/ul Critically low 4.70-6.10 [facility] Comment on above: Performed By: #### L IPID, TSH, CMP #### [facility] [address] [place] [address] Dr. Leesa Urbina WBC 7.3 103/ul Normal 4.0-11.0 [facility] Comment on above: Performed By: #### L IPID, TSH, CMP #### [facility] [address] [place] [address] Dr. Leesa Urbina FERRITINon 09-03-2022 Ferritin [Mass/Vol] 44.0 ng/mL Normal 26.0-388.0 [facility] Comment on above: Performed By: #### F ERR, FETIBC #### [facility] [address] [place], [place] [address] Dr. Leesa Urbina IRON AND TIBCon 09-03-2022 % SATURATION 23.5 % Normal [facility] Comment on above: Performed By: #### F ERR, FETIBC #### [facility] [address] [place], [place] [address] Dr. Leesa Urbina Iron [Mass/Vol] 69.0 ug/dL Normal 65.0-175.0 [facility] Comment on above: Performed By: #### F ERR, FETIBC #### [facility] [address] [place], [place] [address] Dr. Leesa Urbina TIBC DIRECT 294.0 ug/dL Normal 250.0-450.0 [facility] Comment on above: Performed By: #### F ERR, FETIBC #### [facility] [address] [place], [place] [address] Dr. Leesa Urbina Office Visit (Cardiology)on 07-14-2022 Follow-up visit Diagnoses/Problems Assessed Anticoagulated (V58.61) (Z79.01) Benign essential hypertension (401.1) (I10) Hyperlipidemia (272.4) (E78.5) Paroxysmal atrial fibrillation (427.31) (I48.0) Diabetes mellitus (250.00) (E11.9) Body mass index (BMI) of 24.0 to 24.9 in adult (V85.1) (Z68.24) Never a smoker Orders SocHx: Never a smoker Tobacco Use Screening; Status:Complete; Done: [id number] Patient Instructions Please bring all medicines, vitamins, [...] negative for complaint. Vitals Vital Signs Recorded: [id number] 09:08AM Heart Rate68, L Radial Hizkthlf593, LUE, Sitting Livtauhig56, LUE, Sitting Height5 ft 11 in Hrrpfy996 lb BMI Fitppevsmu14.13 kg/m2 BSA Calculated1.98 Tobacco Useb) No PHQ-2 [...] Jul 14 2022 10:20AM EST (Author) Normal [facility] Tobacco Screening.on 023 Adult depression screening assessment No [facility] 250 DO Work Phone: Fall risk assessment a) No falls within the last year [facility] 250 DO Work Phone: Tobacco use status CPHS b) No [facility] 250 DO Work Phone: CBC AUTO DIFFon 05-06-2022 BASO # 0.1 103/ul Normal 0.0-0.1 [facility] Comment on above: Performed By: #### C BC #### [facility] [address] [place] [address] Dr. Leesa Urbina Basophils/100 WBC (Bld) 1.4 % Normal 0.2-2.0 [facility] Comment on above: Performed By: #### C BC #### [facility] [address] [place] [address] [address] [address] Leesa Urbina EO # 0.4 103/ul Normal 0.0-0.7 [facility] Comment on above: Performed By: #### C BC #### [facility] [address] [place] [address] Dr. Leesa Urbina Eosinophils/100 WBC (Bld) 5.4 % Normal 0.9-7.0 [facility] Comment on above: Performed By: #### C BC #### [facility] [address] [place] [address] Dr. Leesa Urbina Erythrocyte distribution width (RBC) [Ratio] 13.3 % Normal 11.0-15.0 [facility] Comment on above: Performed By: #### C BC #### [facility] [address] [place] [address] Dr. Leesa Urbina Hematocrit (Bld) [Volume fraction] 35.8 % Critically low 42.0-54.0 [facility] Comment on above: Performed By: #### C BC #### [facility] [address] [place] [address] Dr. Leesa Urbina Hemoglobin (Bld) [Mass/Vol] 12.0 g/dL Critically low 14.0-18.0 [facility] Comment on above: Performed By: #### C BC #### [facility] [address] [place] [address] Dr. Leesa Urbina IG # 0.01 10e3/ul Normal 0.00-0.03 [facility] Comment on above: Performed By: #### C BC #### [facility] [address] [place] [address] Dr. Leesa Urbina IG % 0.2 % Normal 0.0-0.5 [facility] Comment on above: Performed By: #### C BC #### [facility] [address] [place] [address] Dr. Leesa Urbina LYMPH # 1.7 103/ul Normal 1.2-3.8 [facility] Comment on above: Performed By: #### C BC #### [facility] [address] [place] [address] Dr. Leesa Urbina Lymphocytes/100 WBC (Bld) 26.1 % Normal 20.5-60.0 [facility] Comment on above: Performed By: #### C BC #### [facility] [address] [place] [address] Dr. Leesa Urbina MANUAL DIFF REQ NO Normal [facility] Comment on above: Performed By: #### C BC #### [facility] [address] [place] [address] Dr. Leesa Urbina MCH (RBC) [Entitic mass] 31.0 pg Normal 25.9-34.0 [facility] Comment on above: Performed By: #### C BC #### [facility] [address] [place] [address] Dr. Leesa Urbina MCHC (RBC) [Mass/Vol] 33.5 g/dL Normal 29.9-35.2 [facility] Comment on above: Performed By: #### C BC #### [facility] [address] [place] [address] Dr. Leesa Urbina MCV (RBC) [Entitic vol] 92.5 fL Normal 80.0-94.0 [facility] Comment on above: Performed By: #### C BC #### [facility] [address] [place] [address] Dr. Leesa Urbina MONO # 0.4 103/ul Normal 0.3-0.8 [facility] Comment on above: Performed By: #### C BC #### [facility] [address] [place] [address] Dr. Leesa Urbina Monocytes/100 WBC (Bld) 6.5 % Normal 1.7-12.0 [facility] Comment on above: Performed By: #### C BC #### [facility] [address] [place] [address] Dr. Leesa Urbina NEUT # 4.0 103/ul Normal 1.4-6.5 [facility] Comment on above: Performed By: #### C BC #### [facility] [address] [place] [address] Dr. Leesa Urbina Neutrophils/100 WBC (Bld) 60.4 % Normal 43.0-75.0 [facility] Comment on above: Performed By: #### C BC #### [facility] [address] [address] [address] Leesa Urbina Platelet mean volume (Bld) [Entitic vol] 10.6 fL Normal 9.5-13.5 [facility] Comment on above: Performed By: #### C BC #### [facility] [address] [address] [address] Leesa Urbina PLT 185 103/ul Normal 150-450 [facility] Comment on above: Performed By: #### C BC #### [facility] [address] [address] [address] Leesa Urbina RBC 3.87 106/ul Critically low 4.70-6.10 [facility] Comment on above: Performed By: #### C BC #### [facility] [address] [address] [address] Leesa Urbina WBC 6.6 103/ul Normal 4.0-11.0 [facility] Comment on above: Performed By: #### C BC #### [facility] [address] [address] [address] Leesa Urbina GLYCOHEMOGLOBIN A1Con 2021 ADA RECOMMENDATION SEE BELOW Normal [facility] Comment on above: Result Comment: ADA RECOMMENDED LIMIT 4.0 - 6.0 ADA THERAPEUTIC TARGET < 7.0 ACTION SUGGESTED > 7.0 Performed By: #### A 1C #### [facility] [address] [address] [address] Leesa Urbina Glucose [Mass/Vol] 151 mg/dL Normal [facility] Comment on above: Performed By: #### A 1C #### [facility] [address] [address] [address] Leesa Urbina HbA1c (Bld) [Mass fraction] 6.9 % Critically high 4.5-6.2 [facility] Comment on above: Performed By: #### A 1C #### [facility] [address] [address] [address] Leesa Urbina LIPID PROFILEon 05-06-2022 CHOL-HDL RATIO NORM SEE BELOW Normal [facility] Comment on above: Result Comment: 3.3 - 4.4 LOW RISK 4.4 - 7.1 AVERAGE RISK 7.1 - 11.0 MODERATE RISK >11.0 HIGH RISK Performed By: #### L IPID, TSH, CMP #### [facility] [address] [address] [address] Leesa Urbina Cholesterol [Mass/Vol] 136 mg/dL Normal <=200 [facility] Comment on above: Performed By: #### L IPID, TSH, CMP #### [facility] [address] [address] [address] Leesa Urbina Cholesterol in HDL [Mass/Vol] 62 mg/dL Critically high 40-60 [facility] Comment on above: Performed By: #### L IPID, TSH, CMP #### [facility] [address] [address] [address] Leesa Urbina Cholesterol in LDL [Mass/Vol] 53.0 mg/dL Normal [facility] Comment on above: Performed By: #### L IPID, TSH, CMP #### [facility] [address] [address] [address] Leesa Urbina Cholesterol.total/Chol esterol in HDL [Mass ratio] 2.2 {ratio} Normal [facility] Comment on above: Performed By: #### L IPID, TSH, CMP #### [facility] [address] [address] [address] Leesa Urbina HDL NORMAL > or = 60 mg/dl - LOW CARDIOVASCULAR RISK <40 mg/dl - HIGH CARDIOVASCULAR RISK Normal [facility] Comment on above: Performed By: #### L IPID, TSH, CMP #### [facility] [address] [address] [address] Leesa Urbina LDL CALC NORMAL SEE BELOW Normal [facility] Comment on above: Result Comment: <100 mg/dl OPTIMAL 100 - 129 mg/dl NEAR OR ABOVE OPTIMAL 130 - 159 mg/dl BORDERLINE HIGH 160 - 189 mg/dl HIGH >190 mg/dl VERY HIGH Performed By: #### L IPID, TSH, CMP #### [facility] [address] [address] [address] Leesa Urbina Triglyceride [Mass/Vol] 105 mg/dL Normal <=150 [facility] Comment on above: Performed By: #### L IPID, TSH, CMP #### [facility] [address] [address] [address] Leesa Urbina VLDL CALC 21.0 mg/dL Normal [facility] Comment on above: Performed By: #### L IPID, TSH, CMP #### [facility] [address] [address] [address] Leesa Urbina PROF 14(COMP METB)on 022 Albumin [Mass/Vol] 3.4 g/dL Normal 3.4-5.0 [facility] Comment on above: Performed By: #### L IPID, TSH, CMP #### [facility] [address] [address] [address] Leesa Urbina Albumin/Globulin [Mass ratio] 1.1 {ratio} Normal [facility] Comment on above: Performed By: #### L IPID, TSH, CMP #### [facility] [address] [address] [address] Leesa Urbina ALP [Catalytic activity/Vol] 77 U/L Normal 46-116 [facility] Comment on above: Performed By: #### L IPID, TSH, CMP #### [facility] [address] [address] [address] Leesa Urbina ALT [Catalytic activity/Vol] 12 U/L Critically low 16-63 [facility] Comment on above: Performed By: #### L IPID, TSH, CMP #### [facility] [address] [address] [address] Leesa Urbina Anion gap [Moles/Vol] 12.7 mmol/L Normal [facility] Comment on above: Performed By: #### L IPID, TSH, CMP #### [facility] [address] [address] [address] Leesa Urbina AST [Catalytic activity/Vol] 19 U/L Normal 15-37 [facility] Comment on above: Performed By: #### L IPID, TSH, CMP #### [facility] [address] [place] [address] Dr. Leesa Urbina Bilirubin [Mass/Vol] 0.4 mg/dL Normal 0.2-1.0 [facility] Comment on above: Performed By: #### L IPID, TSH, CMP #### [facility] [address] [place] [address] Dr. Leesa Urbina Calcium [Mass/Vol] 8.5 mg/dL Normal 8.5-10.1 [facility] Comment on above: Performed By: #### L IPID, TSH, CMP #### [facility] [address] [place] [address] Dr. Leesa Urbina Chloride [Moles/Vol] 107 mmol/L Normal 98-107 [facility] Comment on above: Performed By: #### L IPID, TSH, CMP #### [facility] [address] [place] [address] Dr. Leesa Urbina CO2 [Moles/Vol] 27.4 mmol/L Normal 21.0-32.0 [facility] Comment on above: Performed By: #### L IPID, TSH, CMP #### [facility] [address] [place] [address] Dr. Leesa Urbina Creatinine [Mass/Vol] 1.06 mg/dL Normal 0.70-1.30 [facility] Comment on above: Performed By: #### L IPID, TSH, CMP #### [facility] [address] [place] [address] Dr. Leesa Urbina EGFR-AF CA[place] ISLANDER >60 Normal >=60 [facility] Comment on above: Performed By: #### L IPID, TSH, CMP #### [facility] [address] [place] [address] Dr. Leesa Urbina EGFR-NON AF [place] ISLANDER >60 Normal >=60 [facility] Comment on above: Performed By: #### L IPID, TSH, CMP #### [facility] [address] [place] [address] Dr. Leesa Urbina Globulin (S) [Mass/Vol] 3.1 g/dL Normal [facility] Comment on above: Performed By: #### L IPID, TSH, CMP #### [facility] [address] [place] [address] Dr. Leesa Urbina Glucose [Mass/Vol] 171 mg/dL Critically high 74-106 [facility] Comment on above: Performed By: #### L IPID, TSH, CMP #### [facility] [address] [place] [address] Dr. Leesa Urbina Potassium [Moles/Vol] 4.1 mmol/L Normal 3.5-5.1 [facility] Comment on above: Performed By: #### L IPID, TSH, CMP #### [facility] [address] [place] [address] Dr. Leesa Urbina Protein [Mass/Vol] 6.5 g/dL Normal 6.4-8.2 [facility] Comment on above: Performed By: #### L IPID, TSH, CMP #### [facility] [address] [place] [address] Dr. Leesa Urbina Sodium [Moles/Vol] 143 mmol/L Normal 136-145 [facility] Comment on above: Performed By: #### L IPID, TSH, CMP #### [facility] [address] [place] [address] Dr. Leesa Urbina Urea nitrogen [Mass/Vol] 24.0 mg/dL Critically high 7.0-18.0 [facility] Comment on above: Performed By: #### L IPID, TSH, CMP #### [facility] [address] [place] [address] Dr. Leesa Urbina Urea nitrogen/Creatinine [Mass ratio] 22.6 mg/mg Normal [facility] Comment on above: Performed By: #### L IPID, TSH, CMP #### [facility] [address] [place] [address] Dr. Leesa Urbina Basophils Auto (Bld) [#/Vol] Ordered By: Juan Ventura on 12-05-2021 Basophils (Bld) [#/Vol] 0.1 10*3/uL 0.0-0.2 [facility] Basophils/100 WBC Auto (Bld) Ordered By: Juna Ventura on 12-05-2021 Basophils/100 WBC (Bld) 0.9 % [facility] Blood hemoglobin measurement (mass/volume)Ordered By: Juan Ventura on 12-05-2021 Hemoglobin (Bld) [Mass/Vol] 12.4 g/dL 13.0-17.0 [facility] Blood leukocytes automated c ount (number/volume)Ordered By: Juan Ventura on 12-05-2021 WBC (Bld) [#/Vol] 7.0 10*3/uL 4.5-11.0 [facility] COVID-19 Positive/NegativeOr dered By: Juan Ventura on 12-05-2021 SARS-CoV-2 (COVID-19) N gene RENETTA+probe Ql (Resp) Negative Negative [facility] Comment on above: Testing for SARS-CoV -2 by RT-PCR This test was developed and its performance characteristics determined by [employer] and validated at the [facility]. This test has not been FDA cleared [...] on 12-05-2021 Creatinine [Mass/Vol] 1.28 mg/dL 0.64-1.27 [facility] Eosinophils Auto (Bld) [#/Vo l]Ordered By: Juan Ventura on 12-05-2021 Eosinophils (Bld) [#/Vol] 0.1 10*3/uL 0.0-0.45 [facility] Eosinophils/100 WBC Auto (Bl d)Ordered By: Juan Ventura on 12-05-2021 Eosinophils/100 WBC (Bld) 2.1 % [facility] Erythrocyte distribution wid th Auto (RBC) [Ratio]Ordered By: Juan Ventura on 12-05-2021 Erythrocyte distribution width (RBC) [Ratio] 14.6 % 12.0-14.8 [facility] Estimated glomerular filtrat ion rate (GFR) non- AmericanOrdered By: Juan Ventura on 12-05-2021 GFR/1.73 sq M.predicted among non-blacks MDRD (S/P/Bld) [Vol rate/Area] 54 mL/Min [facility] Hematocrit Auto (Bld) [Volum e fraction]Ordered By: Juan Ventura on 12-05-2021 Hematocrit (Bld) [Volume fraction] 37.3 % 38.8-50.0 [facility] - Hematology and Cell countsOrdered By: Juan Ventura on 12-05-2021 Nucleated RBC/100 WBC (Bld) [Ratio] 0.0 % 0-0.5 [facility] Lymphocytes Auto (Bld) [#/Vo l]Ordered By: Juan Ventura on 12-05-2021 Lymphocytes (Bld) [#/Vol] 1.4 10*3/uL 1.00-4.8 [facility] Lymphocytes/100 WBC Auto (Bl d)Ordered By: Juan Ventura on 12-05-2021 Lymphocytes/100 WBC (Bld) 19.8 % [facility] MCH Auto (RBC) [Entitic mass ]Ordered By: Juan Ventura on 12-05-2021 MCH (RBC) [Entitic mass] 30.8 pg 27.5-35.2 [facility] MCHC Auto (RBC) [Mass/Vol]Or dered By: Juan Ventura on 12-05-2021 MCHC (RBC) [Mass/Vol] 33.1 g/dL 32.5-35.6 [facility] MCV Auto (RBC) [Entitic vol] Ordered By: Juan Ventura on 12-05-2021 MCV (RBC) [Entitic vol] 93.1 fL 83.5-101 [facility] Monocytes Auto (Bld) [#/Vol] Ordered By: Juan Ventura on 12-05-2021 Monocytes (Bld) [#/Vol] 0.5 10*3/uL 0.0-0.8 [facility] Monocytes/100 WBC Auto (Bld) Ordered By: Juan Ventura on 12-05-2021 Monocytes/100 WBC (Bld) 7.3 % [facility] Neutrophils Auto (Bld) [#/Vo l]Ordered By: Juan Ventura on 12-05-2021 Neutrophils (Bld) [#/Vol] 4.9 10*3/uL 1.8-7.7 [facility] Neutrophils/100 WBC Auto (Bl d)Ordered By: Juan Ventura on 12-05-2021 Neutrophils/100 WBC (Bld) 69.9 % [facility] No Panel InformationOrdered By: Juan Ventura on 12-05-2021 Estimated GFR () > 60 mL/Min [facility] Comment on above: GFR estimated refere nce range: According to KDOQI guidelines, <60 ml/min/1.73m2 is sufficient to diagnose a patient with chronic kidney disease. Pharmacy Creatinine Clearance (Chem N/A [facility] Platelet mean volume Auto (B ld) [Entitic vol]Ordered By: Juan Ventura on 12-05-2021 Platelet mean volume (Bld) [Entitic vol] 8.9 fL 6.6-10.1 [facility] Platelets Auto (Bld) [#/Vol] Ordered By: Juan Ventura on 12-05-2021 Platelets (Bld) [#/Vol] 194 10*3/uL 150-450 [facility] RBC Auto (Bld) [#/Vol]Ordere d By: Juan Ventura on 12-05-2021 RBC (Bld) [#/Vol] 4.00 10*6/uL 3.90-5.60 [facility] Serum or plasma calcium fco urement (mass/volume)Ordered By: Juan Ventura on 12-05-2021 Calcium [Mass/Vol] 9.2 mg/dL 8.2-10.2 [facility] Serum or plasma chloride daniel surement (moles/volume)Ordered By: Juan Ventura on 12-05-2021 Chloride [Moles/Vol] 107 mmol/L 95-114 [facility] [facility] Serum or plasma glucose fco urement (mass/volume)Ordered By: Juan Ventura on 12-05-2021 Glucose [Mass/Vol] 117 mg/dL 70-100 [facility] Comment on above: ADA recommended refe rence range Random Glucose Reference Range is dependent on time and content of last meal. Glucose of more than 200 mg/dL in a nonstressed, ambulatory subject supports the diagnosis of Diabetes Mellitus. Serum or plasma potassium me asurement (moles/volume)Ordered By: Juan Ventura on 12-05-2021 Potassium [Moles/Vol] 4.6 mmol/L 3.5-5.1 [facility] Serum or plasma sodium measu rement (moles/volume)Ordered By: Juan Ventura on 12-05-2021 Sodium [Moles/Vol] 141 mmol/L 136-146 [facility] Serum or plasma total carbon dioxide measurement (moles/volume)Ordered By: Juan Ventura on 12-05-2021 CO2 [Moles/Vol] 26.2 mmol/L 22.0-30.0 [facility] Serum or plasma urea nitroge n measurement (mass/volume)Ordered By: Juan Ventura on 12-05-2021 Urea nitrogen [Mass/Vol] 23 mg/dL 9-23 [facility] CBC AUTO DIFFon 11-05-2021 BASO # 0.1 103/ul Normal 0.0-0.1 [facility] Comment on above: Performed By: #### C BC #### [facility] [address] [address] [address] Leesa Urbina Basophils/100 WBC (Bld) 0.8 % Normal 0.2-2.0 [facility] Comment on above: Performed By: #### C BC #### [facility] [address] [address] [address] Leesa Urbina EO # 0.4 103/ul Normal 0.0-0.7 [facility] Comment on above: Performed By: #### C BC #### [facility] [address] [place] [address] Dr. Leesa Urbina Eosinophils/100 WBC (Bld) 5.6 % Normal 0.9-7.0 [facility] Comment on above: Performed By: #### C BC #### [facility] [address] [place] [address] Dr. Leesa Urbina Erythrocyte distribution width (RBC) [Ratio] 13.4 % Normal 11.0-15.0 [facility] Comment on above: Performed By: #### C BC #### [facility] [address] [place] [address] Dr. Leesa Urbina Hematocrit (Bld) [Volume fraction] 36.1 % Critically low 42.0-54.0 [facility] Comment on above: Performed By: #### C BC #### [facility] [address] [place] [address] Dr. Leesa Urbina Hemoglobin (Bld) [Mass/Vol] 11.8 g/dL Critically low 14.0-18.0 [facility] Comment on above: Performed By: #### C BC #### [facility] [address] [place] [address] Dr. Leesa Urbina IG # 0.02 10e3/ul Normal 0.00-0.03 [facility] Comment on above: Performed By: #### C BC #### [facility] [address] [place] [address] Dr. Leesa Urbina IG % 0.3 % Normal 0.0-0.5 [facility] Comment on above: Performed By: #### C BC #### [facility] [address] [place] [address] Dr. Leesa Urbina LYMPH # 1.8 103/ul Normal 1.2-3.8 [facility] Comment on above: Performed By: #### C BC #### [facility] [address] [place] [address] Dr. Leesa Urbina Lymphocytes/100 WBC (Bld) 28.4 % Normal 20.5-60.0 [facility] Comment on above: Performed By: #### C BC #### [facility] [address] [place] [address] Dr. Leesa Urbina MANUAL DIFF REQ NO Normal [facility] Comment on above: Performed By: #### C BC #### [facility] [address] [place] [address] Dr. Leesa Urbina MCH (RBC) [Entitic mass] 30.7 pg Normal 25.9-34.0 [facility] Comment on above: Performed By: #### C BC #### [facility] [address] [place] [address] Dr. Leesa Urbina MCHC (RBC) [Mass/Vol] 32.7 g/dL Normal 29.9-35.2 [facility] Comment on above: Performed By: #### C BC #### [facility] [address] [place] [address] Dr. Leesa Urbina MCV (RBC) [Entitic vol] 94.0 fL Normal 80.0-94.0 [facility] Comment on above: Performed By: #### C BC #### [facility] [address] [place] [address] Dr. Leesa Urbina MONO # 0.5 103/ul Normal 0.3-0.8 [facility] Comment on above: Performed By: #### C BC #### [facility] [address] [place] [address] Dr. Leesa Urbina Monocytes/100 WBC (Bld) 8.1 % Normal 1.7-12.0 [facility] Comment on above: Performed By: #### C BC #### [facility] [address] [place] [address] Dr. Leesa Urbina NEUT # 3.5 103/ul Normal 1.4-6.5 [facility] Comment on above: Performed By: #### C BC #### [facility] [address] [address] [address] Leesa Urbina Neutrophils/100 WBC (Bld) 56.8 % Normal 43.0-75.0 [facility] Comment on above: Performed By: #### C BC #### [facility] [address] [address] [address] Leesa Urbina Platelet mean volume (Bld) [Entitic vol] 10.3 fL Normal 9.5-13.5 [facility] Comment on above: Performed By: #### C BC #### [facility] [address] [address] [address] Leesa Urbina PLT 179 103/ul Normal 150-450 [facility] Comment on above: Performed By: #### C BC #### [facility] [address] [address] [address] Leesa Urbina RBC 3.84 106/ul Critically low 4.70-6.10 [facility] Comment on above: Performed By: #### C BC #### [facility] [address] [address] [address] Leesa Urbina WBC 6.2 103/ul Normal 4.0-11.0 [facility] Comment on above: Performed By: #### C BC #### [facility] [address] [address] [address] Leesa Urbina GLYCOHEMOGLOBIN A1Con 2021 ADA RECOMMENDATION SEE BELOW Normal [facility] Comment on above: Result Comment: ADA RECOMMENDED LIMIT 4.0 - 6.0 ADA THERAPEUTIC TARGET < 7.0 ACTION SUGGESTED > 7.0 Performed By: #### L IPID, TSH, CMP #### [facility] [address] [address] [address] Leesa Urbina Glucose [Mass/Vol] 151 mg/dL Normal [facility] Comment on above: Performed By: #### L IPID, TSH, CMP #### [facility] [address] [address] [address] Leesa Urbina HbA1c (Bld) [Mass fraction] 6.9 % Critically high 4.5-6.2 [facility] Comment on above: Performed By: #### L IPID, TSH, CMP #### [facility] [address] [address] [address] Leesa Urbina LIPID PROFILEon 11-05-2021 CHOL-HDL RATIO NORM SEE BELOW Normal [facility] Comment on above: Result Comment: 3.3 - 4.4 LOW RISK 4.4 - 7.1 AVERAGE RISK 7.1 - 11.0 MODERATE RISK >11.0 HIGH RISK Performed By: #### L IPID, TSH, CMP #### [facility] [address] [address] [address] Leesa Urbina Cholesterol [Mass/Vol] 150 mg/dL Normal <=200 [facility] Comment on above: Performed By: #### L IPID, TSH, CMP #### [facility] [address] [address] [address] Leesa Urbina Cholesterol in HDL [Mass/Vol] 60 mg/dL Normal 40-60 [facility] Comment on above: Performed By: #### L IPID, TSH, CMP #### [facility] [address] [address] [address] Leesa Urbina Cholesterol in LDL [Mass/Vol] 70.8 mg/dL Normal [facility] Comment on above: Performed By: #### L IPID, TSH, CMP #### [facility] [address] [address] [address] Leesa Urbina Cholesterol.total/Chol esterol in HDL [Mass ratio] 2.5 {ratio} Normal [facility] Comment on above: Performed By: #### L IPID, TSH, CMP #### [facility] [address] [address] [address] Leesa Urbina HDL NORMAL > or = 60 mg/dl - LOW CARDIOVASCULAR RISK <40 mg/dl - HIGH CARDIOVASCULAR RISK Normal [facility] Comment on above: Performed By: #### L IPID, TSH, CMP #### [facility] [address] [address] [address] Leesa Urbina LDL CALC NORMAL SEE BELOW Normal [facility] Comment on above: Result Comment: <100 mg/dl OPTIMAL 100 - 129 mg/dl NEAR OR ABOVE OPTIMAL 130 - 159 mg/dl BORDERLINE HIGH 160 - 189 mg/dl HIGH >190 mg/dl VERY HIGH Performed By: #### L IPID, TSH, CMP #### [facility] [address] [address] [address] Leesa Urbina Triglyceride [Mass/Vol] 96 mg/dL Normal <=150 [facility] Comment on above: Performed By: #### L IPID, TSH, CMP #### [facility] [address] [address] [address] Leesa Urbina VLDL CALC 19.2 mg/dL Normal [facility] Comment on above: Performed By: #### L IPID, TSH, CMP #### [facility] [address] [address] [address] Leesa Urbina MICROALB CREAT RATIO RANDOMo n 11-05-2021 mALB <1.3 Normal <=30.0 [facility] Comment on above: Performed By: #### L IPID, TSH, CMP #### [facility] [address] [address] [address] Leesa Urbina MALB CR RATIO 11.4 mg/g Normal 0.0-29.9 [facility] Comment on above: Performed By: #### L IPID, TSH, CMP #### [facility] [address] [address] [address] Leesa Urbina MALB CR RATIO RANGE SEE BELOW Normal [facility] Comment on above: Result Comment: NO M ICROALBUMINURIA 0-29 MG/G CLINICAL MICROALBUMINURIA 30-300 MG/G MACROALBUMINURIA >300 MG/G Performed By: #### L IPID, TSH, CMP #### [facility] [address] [address] [address] Leesa Urbina URINE CREAT 114.03 mg/dL Normal 20.00-300.00 [facility] Comment on above: Performed By: #### L IPID, TSH, CMP #### [facility] [address] [address] [address] Leesa Urbina PROF 14(COMP METB)on 022 Albumin [Mass/Vol] 2.3 g/dL Critically low 3.4-5.0 [facility] Comment on above: Performed By: #### L IPID, TSH, CMP #### [facility] [address] [address] [address] Leesa Urbina Albumin/Globulin [Mass ratio] 0.5 {ratio} Normal [facility] Comment on above: Performed By: #### L IPID, TSH, CMP #### [facility] [address] [address] [address] Leesa Urbina ALP [Catalytic activity/Vol] 77 U/L Normal 46-116 [facility] Comment on above: Performed By: #### L IPID, TSH, CMP #### [facility] [address] [place] [address] Dr. Leesa Urbina ALT [Catalytic activity/Vol] 16 U/L Normal 16-63 [facility] Comment on above: Performed By: #### L IPID, TSH, CMP #### [facility] [address] [address] [address] Leesa Urbina Anion gap [Moles/Vol] 13.8 mmol/L Normal [facility] Comment on above: Performed By: #### L IPID, TSH, CMP #### [facility] [address] [place] [address] Dr. Leesa Urbina AST [Catalytic activity/Vol] 15 U/L Normal 15-37 [facility] Comment on above: Performed By: #### L IPID, TSH, CMP #### [facility] [address] [place] [address] Dr. Leesa Urbina Bilirubin [Mass/Vol] 0.5 mg/dL Normal 0.2-1.0 [facility] Comment on above: Performed By: #### L IPID, TSH, CMP #### [facility] [address] [address] [address] Leesa Urbina Calcium [Mass/Vol] 8.7 mg/dL Normal 8.5-10.1 [facility] Comment on above: Performed By: #### L IPID, TSH, CMP #### [facility] [address] [address] [address] Leesa Urbina Chloride [Moles/Vol] 107 mmol/L Normal 98-107 [facility] Comment on above: Performed By: #### L IPID, TSH, CMP #### [facility] [address] [address] [address] Leesa Urbina CO2 [Moles/Vol] 26.2 mmol/L Normal 21.0-32.0 [facility] Comment on above: Performed By: #### L IPID, TSH, CMP #### [facility] [address] [address] [address] Leesa Urbina Creatinine [Mass/Vol] 1.25 mg/dL Normal 0.70-1.30 [facility] Comment on above: Performed By: #### L IPID, TSH, CMP #### [facility] [address] [address] [address] Leesa Urbina EGFR-AF [place] ISLANDER >60 Normal >=60 [facility] Comment on above: Performed By: #### L IPID, TSH, CMP #### [facility] [address] [address] [address] Leesa Urbina EGFR-NON AF [place]LANDER 55 mL/min/1.73m2 Critically low >=60 [facility] Comment on above: Performed By: #### L IPID, TSH, CMP #### [facility] [address] [address] [address] Leesa Urbina Globulin (S) [Mass/Vol] 4.3 g/dL Normal [facility] Comment on above: Performed By: #### L IPID, TSH, CMP #### [facility] [address] [address] [address] Leesa Urbina Glucose [Mass/Vol] 137 mg/dL Critically high 74-106 [facility] Comment on above: Performed By: #### L IPID, TSH, CMP #### [facility] [address] [address] [address] Leesa Urbina Potassium [Moles/Vol] 4.0 mmol/L Normal 3.5-5.1 [facility] Comment on above: Performed By: #### L IPID, TSH, CMP #### [facility] [address] [address] [address] Leesa Urbina Protein [Mass/Vol] 6.6 g/dL Normal 6.4-8.2 [facility] Comment on above: Performed By: #### L IPID, TSH, CMP #### [facility] [address] [place] [address] Dr. Leesa Urbina Sodium [Moles/Vol] 143 mmol/L Normal 136-145 [facility] Comment on above: Performed By: #### L IPID, TSH, CMP #### [facility] [address] [place] [address] Dr. Leesa Urbina Urea nitrogen [Mass/Vol] 24.0 mg/dL Critically high 7.0-18.0 [facility] Comment on above: Performed By: #### L IPID, TSH, CMP #### [facility] [address] [place] [address] Dr. Leesa Urbina Urea nitrogen/Creatinine [Mass ratio] 19.2 mg/mg Normal [facility] Comment on above: Performed By: #### L IPID, TSH, CMP #### [facility] [address] [place] [address] Dr. Leesa Urbina TSHon 11-05-2021 TSH 0.996 uIU/mL Normal 0.358-3.740 [facility] Comment on above: Performed By: #### L IPID, TSH, CMP #### [facility] [address] [place] [address] Dr. Leesa Ubrina Tobacco Screening.on 022 Adult depression screening assessment No [facility] [address] DO Work Phone: Fall risk assessment a) No falls within the last year [facility] DO Work Phone: Tobacco use status CP b) No [facility] DO Work Phone: Social History Date Type Detail Facility Start: 07-13-2023 Never a smoker Never a smoker [facility] DO Work Phone: Comment on above: 2-3 drinks a month; Start: 07-13-2023 Sex Assigned At [facility] [employer] Other Start: 07-13-2023 Tobacco use and exposure Smokeless tobacco non-user [facility] Work Phone: Start: 07-13-2023 Alcohol intake Lifetime non-d joe (finding) [facility] Work Phone: Start: 07-03-2023 End: 07-13-2023 Exposure to SARS-CoV-2 (event) Not sure [facility] Start: 12-05-2021 End: 12-24-2022 Tobacco smoking status NHIS Ex-smoker (finding) [facility] Start: 1940 [facility] At [facility] Start: 1940 Sex Assigned At Not on file [facility] Work Phone: Tobacco smoking status NHIS Unknown if ever smoked [facility] [place] End: 05-24-1989 History of tobacco use Current smoker [facility] Work Phone: End: 05-24-1989 History of tobacco use Cigarette Smoker [facility] Work Phone: Vital Signs Date Time Vital Sign Value Performing Clinician Facility 07-13-2023 08:34-0500 Body height 180.3 cm Dev Camp MD Work Phone: [facility] 07-13-2023 08:34-0500 Body mass index (BMI) [Ratio] 23.99 kg/m2 Dev Camp MD Work Phone: [facility] 07-13-2023 08:34-0500 Body weight 78.02 kg Dev Camp MD Work Phone: [facility] 07-13-2023 08:34-0500 Diastolic blood pressure 64 mm[Hg] Dev Camp MD Work Phone: [facility] 07-13-2023 08:34-0500 Heart rate 60 /min Dev Camp MD Work Phone: [facility] 07-13-2023 08:34-0500 Systolic blood pressure 108 mm[Hg] Dev Camp MD Work Phone: [facility] 11-17-2022 14:15-0400 Body height 180.34 cm Imad Asaad Other [employer] [facility] [employer] Other 11-17-2022 14:15-0400 Body mass index (BMI) [Ratio] 23.71 kg/m2 Imad Asaad Other [employer] Other 11-17-2022 14:15-0400 Body weight 77.11 kg Imad Asaad Other [employer] Other 11-17-2022 14:15-0400 Diastolic blood pressure 78 mm[Hg] Imad Asaad Other [employer] Other 11-17-2022 14:15-0400 Systolic blood pressure 127 mm[Hg] Imad Asaad Other [employer] Other 07-14-2022 09:08-0500 Body height 180.34 cm Gabriel Bello Work Phone: [facility] [employer] 250 DO Work Phone: 07-14-2022 09:08-0500 Body mass index (BMI) [Ratio] 24.13 kg/m2 Gabriel Bello Work Phone: [facility] [employer] [facility] DO Work Phone: 07-14-2022 09:08-0500 Body surface area Derived from formula 1.98 m2 Gabriel Bello Work Phone: [facility] DO Work Phone: 07-14-2022 09:08-0500 Body weight 78.47 kg Gabriel Bello Work Phone: [facility] DO Work Phone: 07-14-2022 09:08-0500 Diastolic blood pressure 78 mm[Hg] Gabriel Bello Work Phone: [facility] DO Work Phone: 07-14-2022 09:08-0500 Heart rate 68 /min Gabriel Bello Work Phone: [facility] DO Work Phone: 07-14-2022 09:08-0500 Systolic blood pressure 124 mm[Hg] Gabriel Bello Work Phone: [facility] DO Work Phone: 07-03-2021 15:20-0500 Diastolic blood pressure 78 mm[Hg] Gabriel Bello Work Phone: [facility] DO Work Phone: 07-03-2021 15:20-0500 Heart rate 65 /min Gabriel Bello Work Phone: [facility] DO Work Phone: 07-03-2021 15:20-0500 Systolic blood pressure 136 mm[Hg] Gabriel Bello Work Phone: [facility] DO Work Phone: 07-03-2021 15:17-0500 Body height 180.34 cm Gabriel Bello Work Phone: [facility] DO Work Phone: 07-03-2021 15:17-0500 Body mass index (BMI) [Ratio] 24.97 kg/m2 Gabriel Bello Work Phone: [facility] [employer] DO Work Phone: 07-03-2021 15:17-0500 Body surface area Derived from formula 2.01 m2 Gabriel Bello Work Phone: [facility] [employer] 250 DO Work Phone: 07-03-2021 15:17-0500 Body weight 81.19 kg Gabriel Bello Work Phone: [facility] [employer] 250 DO Work Phone: 07-03-2021 15:17-0500 Diastolic blood pressure 80 mm[Hg] Gabriel Bello Work Phone: [facility] [employer] DO Work Phone: 07-03-2021 15:17-0500 Systolic blood pressure 151 mm[Hg] Gabriel Bello Work Phone: [facility] [employer] DO Work Phone: History of Present illness Narrative 07-13-2023 Dev [...] by mouth once daily., Disp: , Rfl: [id number] (Creon) 24,000-76,000 -120,000 unit capsule, Take 1 [...] Scribe Attestation By signing my name below, IMarisa LPN , Scribe attest that this documentation [...] discussion and plan. documented in this encounter [facility] Work Phone: Instructions 07-13-2023 Patient Instructions [...] of your visit. documented in this encounter [facility] Work Phone: Evaluation note 11-17-2022 Note Date & Type Note Facility 11-17-2022 Evaluation note Encounter Date Diagnosis Assessment Notes Oct, Change in bowel habits (ICD-10 - R19.4) Oct, Diverticulosis (ICD-10 - K57.90) Oct, IBS (irritable bowel syndrome) (ICD-10 - K58.9) Oct, Pancreatic insufficiency (ICD-10 - K86.89) [facility] Other History of Present illness Narrative 07-14-2022 [...] necessary and we suggest follow-up next year [facility] DO Work Phone: Evaluation note Note Date & Type Note Facility Evaluation note No assessment information [facility] Work Phone: Evaluation note Note Date & Type Note Facility Evaluation note No Information [facility] [employer] Other Evaluation note Note Date & Type Note Facility Evaluation note Diagnosis Benign essential hypertension- Primary Essential hypertension, benign Mixed hyperlipidemia Paroxysmal atrial fibrillation (CMS/HCC) Atrial fibrillation Former smoker Personal history of tobacco use, presenting hazards to health documented in this encounter [facility] Work Phone: History general Narrative - [...] Procedure:Knee replacement Surgical History Procedure:35 Radiati on Treatments,6-;Disease:Reoccurance Prostrate Cancer 2008 Surgical History Procedure:colonoscopy 2010 Surgical History Colonoscopy per Dr. Yu. 11-28-15 Surgical History Left Cataract surgery 10-01-17 Surgical History Right cataract surge ry per in [place], [place]. 10-28-17 Surgical History Mohs repair / left upper lip Hospitalization History see above [employer] Other History of Present illness Narrative Note [...] suggest continued therapy as before without change. -[facility] DO Work Phone: Advance Directives No [...] Referred To Contact Diagnoses Paroxysmal atrial fibrillation ([facility]/HCC) Procedures ECG 12 Lead Dev Camp MD [address] [place] [address] 2, [address] [address] Referral ID Status Reason Start Date Expiration Date V isits Requested Visits Authorized [id number] Authorized 07/13/2023 07/12/2024 1 1 Specialty Diagnoses / Procedures Referred By Contac t Referred To Contact Cardiology Diagnoses Paroxysmal atrial fibrillation ([facility]/HCC) Procedures Follow Up In Cardiology Dev Camp MD [address] [place] [address] [address], [address] [address] Dev Camp MD [address] [place] [address] 2, [address] [address] Referral ID Status Reason Start Date Expiration Date V isits Requested Visits Authorized [id number] Authorized 07/13/2023 07/12/2024 1 1 Additional Source Comments Care Teams (unrecognized sec tion and content) Team Status: Inactive Member Role Status Dates Gabriel Bello DO Primary Care Provider Active Shonna Sim DO Family Provider Active Juan Ventura DO Attending Provider Active Team Status: Active Member Role Status Dates Shonna Sim DO Family Provider Active Gabriel Bello DO Primary Care Provider Active Team Status: Inactive Member Role Status Dates Gabriel Bello DO Primary Care Provider Active Shonna Sim DO Family Provider Active Jj Garcia MD Attending Provider Active Bell Spinner Relationship Specialty Start Date End Date Gabriel Bello DO [address] [place] [address] PCP - General 05/24/99 Team Status: Inactive [...] section and content) DATE CREATED AUTHOR 07/15/2022 [facility] DATE CREATED AUTHOR AUTHOR'S ORGANIZ ATION 07/15/2022 [facility] DATE CREATED AUTHOR AUTHOR'S ORGANIZ ATION 09/10/2022 [facility] DATE CREATED AUTHOR AUTHOR'S ORGANIZ ATION 07/14/2023 [facility] DATE CREATED AUTHOR AUTHOR'S ORGANIZ ATION 09/18/2023 [facility] DATE CREATED AUTHOR AUTHOR'S ORGANIZ ATION 10/27/2023 [facility] EPIC REASON FOR VISIT (unrecogniz ed section and content) Reason Comments Annual Exam Specialty Diagnoses / Procedures Referred By Contac t Referred To Contact Diagnoses Paroxysmal atrial fibrillation (CMS/HCC) Procedures ECG 12 Lead Dev Camp MD [address] [facility] [address] [place] [address] Referral ID Status Reason Start Date Expiration Date V isits Requested Visits Authorized [id number] Authorized 07/13/2023 07/12/2024 1 1 FOR RECORDS [...] BE BASED ON THE PRIMARY CLINICAL RECORDS. [employer] [facility]. provides no warranty or guarantee of the accuracy or completeness of information in this document.
[2023-11-01 08:44] LABS: Creatinine Urine Random 278.88 mg/dL (20.00-300.00); Microalbum Creatinine Ratio Ur 23.6 mg/g (0.0-29.9); Microalbumin Urine Random 6.6 mg/dL (<=30.0)
[2023-11-01 10:22] LABS: Bilirubin Urine NEGATIVE (NEGATIVE); Blood Urine NEGATIVE (NEGATIVE); Clarity Urine CLEAR (CLEAR); Color Urine BROWN (YELLOW); Glucose Urine UA NEGATIVE (NEGATIVE); Ketones Urine NEGATIVE (NEGATIVE); Leukocyte Esterase Urine NEGATIVE (NEGATIVE); Nitrite Urine NEGATIVE (NEGATIVE); Protein Urine TRACE mg/dL (NEG/TRACE); Specific Gravity Urine >=1.030 (1.005-1.025); Urobilinogen Urine 0.2 EU/dL (0.2-1.0)
[2023-11-01 10:31] LABS: Bacteria Urine NONE SEEN #/HPF (NONE SEEN); Calcium Oxalate Crystals Urine FEW; Cast Seen? SEEN #/LPF (NONE SEEN); Crystals Seen? Seen #/HPF (None Seen); Hyaline Casts Urine FEW; Mucus Urine SMALL (NONE SEEN); RBC Urine 0-2 #/HPF (0-2); Squamous Epithelial Cell Urine FEW #/LPF (NONE/RARE); WBC Urine 0-2 #/HPF (NONE SEEN)
[2023-11-01 10:36] LABS: Chol HDL Ratio 2.2; Cholesterol 152 mg/dL (<=200); HDL Cholesterol 70 mg/dL (40-60); Triglycerides 107 mg/dL (<=150); VLDL CHOLESTEROL 21.4 mg/dL
[2023-11-01 10:49] LABS: Free T4 0.96 ng/dL (0.76-1.46)
[2023-11-01 10:59] LABS: Estimated Average Glucose 154 mg/dL
== END 2023-11-01 07:53 | disposition home or self-care (01) ==
LOC: LAB 07:53
PROVIDERS: PCP Internal Medicine; Visit Provider Internal Medicine
DX: C61 Malignant neoplasm of prostate (principal); E11.69 Type 2 diabetes mellitus with other specified complication
CPT/HCPCS: 36415; 80053; 80061; 81001; 82043; 82570; 83036; 84153; 84403; 84439; 84443; 85025

== ENCOUNTER 2023-11-09 14:45 | Outpatient (OUT) | payer MEDICARE, SELFPAY ==
--- NOTE | 2023-11-09 14:50 | XR_ITS ---
[address] [address] Patient Name: DEV ALVAREZ MRN: [id number] date: 1940 Sex: M Assigned Patient Location: [facility] Current Patient Location: Accession/Order Number: [id number] Exam Date: 11/09/2023 15:05 Report Date: 11/11/2023 13:42 At the request of: NON-STAFF PHYSICIAN Procedure: XR DEXA axial skeleton EXAMINATION: XR DEXA axial skeleton HISTORY: Osteoporosis COMPARISON: No relevant comparison available. TECHNIQUE: Dual-energy X-ray absorptiometry (DXA) was performed. FINDINGS: SPINE ANALYSIS: Average bone mineral density is 1.065 g/cm2. T-score (standard deviation relative to young adult mean): -1.3 . HIP ANALYSIS: Lowest bone mineral density is within the left femoral neck, 0.663 g/cm2. T-score (standard deviation relative to young adult mean): -3.1 . XR/XR DEXA axial skeleton IMPRESSION: World Ti Organization Classification: Osteoporosis - High Fracture Risk FRAX: Cannot be calculated Pharmacologic treatment recommendations * No uniform recommendation applies to all patients. Management plans must be individualized. * Consider initiating pharmacologic treatment in postmenopausal women and men >= 50 years of age who have the following: Primary fracture prevention: * T-score <= - 2.5 at the femoral neck, total hip, lumbar spine, 33% radius (some uncertainty with existing data) by DXA. * Low bone mass (osteopenia: T-score between - 1.0 and - 2.5) at the femoral neck or total hip by DXA with a 10-year hip fracture risk >= 3% or a 10-year major osteoporosis-related fracture risk >= 20% (i.e., clinical vertebral, hip, forearm, or proximal humerus) based on the [place]-adapted FRAXregistered model. Secondary fracture prevention: * Fracture of the hip or vertebra regardless of BMD [4, 5]. * Fracture of proximal humerus, pelvis, or distal forearm in persons with low bone mass (osteopenia: T-score between - 1.0 and - 2.5). The decision to treat should be individualized in persons with a fracture of the proximal humerus, pelvis, or distal forearm who do not have osteopenia or low BMD [12, 13]. Adriana MS, Alyssa SL, Opal KL, Andres EM, Danette KG, Meredith AJ, Jaquelin ES. The clinician's guide to prevention and treatment of osteoporosis. Osteoporos Int. 2021;33(10):3781-2313. doi: 10.1007/a87629-951-41110-c. Epub 2021Sep 18. Erratum in: Osteoporos Int. 2021Dec 18;: PMID: [id number]; PMCID: [id number]. Electronically authenticated by: NEVA MARSH Date: 11/11/2023 13:42
== END 2023-11-09 14:46 | disposition home or self-care (01) ==
LOC: RAD 14:46
PROVIDERS: PCP Internal Medicine
DX: M81.8 Other osteoporosis without current pathological fracture (principal)
CPT/HCPCS: 77080

== ENCOUNTER 2023-11-29 07:48 | Outpatient (OUT) | payer MEDICARE, SELFPAY ==
--- OUTSIDE RECORDS SUMMARY | 2023-11-29 07:52 | XMS_ITS | CCD ---
Author Organization [facility] Inform ion Partnership [facility] Care Team Providers Care Band Edger Name Role Phone Gabriel Bello Primary Care Provider Ryan Negron Attending Provider Gabriel Bello Unavailable Unavailable Unavailable DO Gabriel Bello Primary Care Provider DO Juan Ventura Attending Provider [phone] Dr. Gabriel Bello Abhilash Primary Care Unavai armani Camp II, Dr. Dev Black Attending Unavailable Ryan GARCIA, Dr. Dev Black Referring Unavailable MISC, DR SHERIFF Attending Unavailable MISC, DR SHERIFF Consulting Unavailable DARIO, DR SHERIFF Admitting Unavailable ACE, DR RIOS Primary Care Unavailable ACE, DR RIOS Primary Care Unavailable ACE, DR RIOS Admitting Unavailable ACE, DR RIOS Attending Unavailable DR GABRIEL BELLO Consulting Unavailable DR GABRIEL BELLO Primary Care Unavailable MISC, DR SHERIFF Admitting Unavailable MISJeff, DR SHERIFF Attending Unavailable MISJeff, DR SHERIFF Consulting Unavailable ACE, DR RIOS Primary Care Unavailable ACE, DR RIOS Admitting Unavailable ACE, DR RIOS Attending Unavailable DR GABRIEL BELLO Consulting Unavailable ACE, DR RIOS Admitting Unavailable DR GABRIEL BELLO Attending Unavailable ACE, DR RIOS Consulting Unavailable DR GABRIEL BELLO Primary Care Unavailable Jj Garcia Unavailable DO Gabriel eBllo Primary Care Provider MD Jj Garcia Attending Provider [phone] Gabriel Bello DO Primary Care Provider [phone] DEV CAMP Attending Unavailable GABRIEL BELLO Primary Care Unavailable DO Gabriel Bello Primary Care Provider [phone] NON STAFF Attending Provider Unavailable Asaad, Imad [...] BARROW Attending Unavailable GABRIEL BELLO Attending Unavailable GABRIEL BELLO Attending Unavailable Unavailable Unavailable Unavailable Allergies Allergy Classification Reported Allergen(s) Allergy Type Date of Onset Reaction(s) Facility (4 sources) Sulfonamides (Antibiotic); Translations: [Sulfa Drugs] Allergy to drug (finding) [place] [address] DO Work Phone: (5 sources) Sulfonamides (Antibiotic); Translations: [SULFA (SULFONAMIDE ANTIBIOTICS)] Allergy to substance [address] [facility] (1 source) Sulfonamides (Antibiotic) Drug allergy (disorder) [facility] (2 sources) Substance with sulfonamide structure and antibacterial mechanism of action (substance) Drug allergy Unknown [facility] [employer] Other Medications Current Medications Medication Drug Class(es) Dates Sig (Normalized) Sig (Original) amylase 773323 unt / lipase 24465 unt / protease 07183 unt delayed release oral capsule (3 sources) Start: 11-17-2022 take 1 capsule by mouth three times daily at mealtime nhtkkp-ukewikba-fc ylase (Creon) 24,000-76,000 -120,000 unit capsule Take 1 capsule by mouth 3 times a day with meals. 0 11/17/2022 Active Start: 11-17-2022 Creon 18133-86 000 UNIT 1 with each meal Orally [...] December 05, 2021 12:00am polyethylene glycol 3350 196686 mg / potassium chloride 2970 mg / sodium bicarbonate 6740 mg / sodium chloride 5860 mg / sodium sulfate 47968 mg powder for oral solution (2 sources) [...] mouth see administration instructions. 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] Onset: 11-06-2021 Episodic Other [...] sb-mton 09-13-2023 PET psma initial tx sb-mt [facility] [place] [address] Nuclear Medicine Report Signed Patient: Dev Walsh MR#: [id number] 906 : 1940 Acct:[id number] Age/Sex: 83 / M ADM Date: 09/13/23 Loc: Room: Type: [facility] Attending Dr: NON STAFF Copies to: NON [...] Jordan Story M.D.09/13/2023 3:20 PM Dictation Location: [place] [address] Transcribed By: [facility] 09/13/23 1520 Dictated By: Jordan Story II, MD 09/13/23 1515 Signed By: 09/13/23 1520 Normal [facility] ECG 12 [place] 07-13-2023 Sinus rhythm with frequent PVCs Otherwise normal EKG QTc 444 ms [facility] Work Phone: Joni 12-24-2022 L Specimen: [id number] Received: 12/24/22 Status: DEONDRE Lewis Num: [id number] Spec Type: Surgical Subm Dr: Jj Garcia MD Tissues: A Colon Biopsy (RANDOM COLON) B Colon Biopsy (ASCENDING POLYP) Procedures: HE/4, Gross/Micro L4/2 Age/ Patient Sex Location Account Attending Physician Dev Walsh/Jed [id number] Jj Garcia MD SPEC NUM: [id number] RECD: 12/24/22 STATUS: DEONDRE LEWIS NUM: [id number] JARRET: 12/24/22- [facility] DR: Jj Garcia MD ENTERED: 12/24/22 ANSELMO [...] submitted in one cassette labeled B1. Specimen: [id number] Received: 12/24/22 Status: DEONDRE Joshua Num: [id number] Spec Type: Surgical Subm Dr: Jj Garcia MD Tissues: A Colon Biopsy (RANDOM COLON) B Colon Biopsy (ASCENDING POLYP) Procedures: Lizett VASQUEZ/Saurabh L4/2 Patient: Dev Walsh [id number] (Continued) Specimen: [id number] Received: 12/24/22 (Continued) Signed (signature on file) Natan Davidson MD 12/29/22 1658 Specimen: [id number] Received: 12/24/22 Status: DEONDRE Lewis Num: [id number] Spec Type: Surgical Subm Dr: Jj Garcia MD Tissues: A Colon Biopsy (RANDOM COLON) B Colon Biopsy (ASCENDING POLYP) Procedures: Lizett VASQUEZ/Saurabh L4/2 Patient: NicoDev Brendon [id number] (Continued) Specimen: [id number] Received: 12/24/22 (Continued) Microscopic Description A. Two H E slides reviewed. The microscopic examination confirms the diagnosis. B. Two H E slides reviewed. The microscopic examination confirms the diagnosis. CPT Codes 22636v9 Specimen: [id number] Received: 12/24/22 Status: DEONDRE Lewis Num: [id number] Spec Type: Surgical Subm Dr: Jj Garcia MD Tissues: A Colon Biopsy (RANDOM COLON) B Colon Biopsy (ASCENDING POLYP) Procedures: Lizett VASQUEZ/Saurabh L4/2 Patient: Dev Walsh [id number] (Continued) Signed (signature on file) Natan Davidson MD 12/29/22 6646 Normal [facility] Blood Urea Nitrogenon 2022 Urea nitrogen [Mass/Vol] 31 mg/dL High 7-25 [facility] Comment on above: Order Comment: Reaso n for Exam Change in bowel habits Performed By: #### T SH3, BUN, CREAT #### [address] C reactive protein [Mass/vol ume] in Serum or PlasmaOrdered By: Jj Garcia on 11-26-2022 CRP [Mass/Vol] < 0.5 mg/dL 0.0-0.5 [facility] C-Reactive Proteinon 023 CRP [Mass/Vol] mg/L Normal 0.0-0.5 [facility] Comment on above: Order Comment: Reaso n for Exam Change in bowel habits Result Comment: PERF ORMED BY: [place] [address] PATHOLOGIST RE[employer]RA[employer] PRODUCTS SUPERVISOR WILMA MANTILLA M.D. Performed By: #### C RP, ESR #### [address] #### HIV SCREEN #### [facility] , CT abdomen pelvis w conon CT abdomen pelvis w con [facility] [place] [address] [place] [address] CT Scan Report Signed Patient: Dev Walsh MR#: [id number] 906 : 1940 Acct:[id number] Age/Sex: 82 / M ADM Date: 11/26/22 Loc: CT Room: Type: [facility] Attending Dr: Jj Garcia MD Copies [...] seen. Impression dictated by: Jered Mandujano Jr., D.OCassidy11/26/2022 7:19 PM Dictation Location: [place] [address] Transcribed By: [facility] 11/26/221918 Dictated By: Jered Mandujano Jr, DO 11/26/221906 Signed By: 11/26/221918 Normal [facility] Creatinineon 11-26-2022 Creatinine [Mass/Vol] 1.55 mg/dL High 0.70-1.30 [facility] Comment on above: Order Comment: Reaso n for Exam Change in bowel habits Performed By: #### T SH3, BUN, CREAT #### [facility] [address] GFR/1.73 sq M.predicted MDRD (S/P/Bld) [Vol rate/Area] 43.863 mL/min/{1.73_m2} Normal [facility] Comment on above: Order Comment: Reaso n for Exam Change in bowel habits Performed By: #### T SH3, BUN, CREAT #### [facility] [address] [place] [id number] [facility] Creatinine [Mass/volume] in Serum or PlasmaOrdered By: Gabriel Bello on 11-26-2022 Creatinine [Mass/Vol] 1.55 mg/dL 0.70-1.30 [facility] Erythrocyte Sedimentation Ra juli 11-26-2022 ESR (Bld) [Velocity] 18 mm/h Normal 0-19 [facility] Comment on above: Order Comment: Reaso n for Exam Change in bowel habits Result Comment: PERF ORMED BY: [place] [address] PATHOLOGIST REF[employer] SUPERVISOR WILMA MANTILAL M.D. Performed By: #### C RP, ESR #### [address] #### HIV SCREEN #### [facility] , Erythrocyte sedimentation ra te by Photometric methodOrdered By: Jj Garcia on 11-26-2022 ESR Photometric method (Bld) [Velocity] 18 mm/hr 0-19 [facility] HIV 1/O/2 Antigen/Antibodyon 11-26-2022 HIV Screen 4th Generation Non-Reactive Normal Non Reactive [facility] Comment on above: Order Comment: Reaso n for Exam Change in bowel habits Result Comment: HIV Negative HIV-1/HIV-2 antibodies and HIV-1 p24 antigen were NOT detected. There is no laboratory evidence of HIV infection. Performed at: [employer] [id number] Bilingual Medical Assistant: Miguel Cullen PhD, Phone: [phone] PERFORMED BY: [place] [address] PATHOLOGIST REFRA[employer]ORY PRODUCTS SUPERVISOR WILMA MANTILLA M.D. Performed By: #### C RP, ESR #### [address] #### HIV SCREEN #### [facility] , No Panel InformationOrdered By: Gabriel Bello on 11-26-2022 Estimated GFR (CKD-EPI) 43.863 mL/Min [facility] Creatinine Clearance (Chem N/A [facility] Thyroid Stimulating Hormoneo n 11-26-2022 TSH Qn 1.23 m[IU]/L Normal 0.45-5.33 [facility] Comment on above: Order Comment: Reaso n for Exam Change in bowel habits Result Comment: PERF ORMED BY: [place] [address] PATHOLOGIST RE[employer] SUPERVISOR WILMA MANTILLA M.D. Performed By: #### T SH3, BUN, CREAT #### [facility] [address] Thyrotropin [Units/volume] i n Serum or PlasmaOrdered By: Jj Garcia on 11-26-2022 TSH Qn 1.23 m[IU]/L 0.45-5.33 [facility] Urea nitrogen [Mass/volume] in Serum or PlasmaOrdered By: Gabriel Bello on 11-26-2022 Urea nitrogen [Mass/Vol] 31 mg/dL 7 [facility] PANCREATIC ELASTASE FECALon 09-08-2022 Pancreatic Elastase, Fecal 86 ug Elast./g Critically low >200 [facility] Comment on above: Result Comment: Re sults verified by repeat testing Severe Pancreatic Insufficiency: <100 Moderate Pancreatic Insufficiency: 100 - 200 Normal: >200 Performed By: #### L IPID, TSH, CMP #### [facility] [address] [place] [address] Dr. Leesa Urbina CELIAC ANTIBODIES PROFILEon 09-04-2022 Deamidated Gliadin Abs, IgA 8 units Normal 0-19 [facility] Comment on above: Result Comment: Nega tive 0 - 19 Weak Positive 20 - 30 Moderate to Strong Positive >30 Performed By: #### C ELIACP #### [facility] [address] [place] [address] Dr. Leesa Urbina Deamidated Gliadin Abs, IgG 4 units Normal 0-19 [facility] Comment on above: Result Comment: Nega tive 0 - 19 Weak Positive 20 - 30 Moderate to Strong Positive >30 Performed By: #### C ELIACP #### [facility] [address] [place] [address] [address] Leesa Urbina Endomysial Antibody IgA Negative Normal Negative [facility] Comment on above: Performed By: #### C ELIACP #### [facility] [address] [place] [address] [address] Leesa Urbina Immunoglobulin A, Qn, Serum 143 mg/dL Normal 61-437 [facility] Comment on above: Performed By: #### C ELIACP #### [facility] [address] [place] [address] Dr. Leesa Urbina t-Transglutaminase (tTG) IgA <2 Normal 0-3 [facility] Comment on above: Result Comment: Nega tive 0 - 3 Weak Positive 4 - 10 Positive >10 . Tissue Transglutaminase (tTG) has been identified as the endomysial antigen. Studies have demonstr- ated that endomysial IgA antibodies have over 99% specificity for gluten sensitive enteropathy. Performed By: #### C ELIACP #### [facility] [address] [place] [address] Dr. Leesa Urbina t-Transglutaminase (tTG) IgG 6 U/mL Critically high 0-5 [facility] Comment on above: Result Comment: Nega tive 0 - 5 Weak Positive 6 - 9 Positive >9 Performed By: #### C ELIACP #### [facility] [address] [place] [address] Dr. Leesa Urbina CBC AUTO DIFFon 09-03-2022 BASO # 0.1 103/ul Normal 0.0-0.1 [facility] Comment on above: Performed By: #### L IPID, TSH, CMP #### [facility] [address] [place] [address] Dr. Leesa Urbina Basophils/100 WBC (Bld) 1.1 % Normal 0.2-2.0 [facility] Comment on above: Performed By: #### L IPID, TSH, CMP #### [facility] [address] [place] [address] Dr. Leesa Urbina EO # 0.6 103/ul Normal 0.0-0.7 [facility] Comment on above: Performed By: #### L IPID, TSH, CMP #### [facility] [address] [place] [address] Dr. Leesa Urbina Eosinophils/100 WBC (Bld) 7.9 % Critically high 0.9-7.0 [facility] Comment on above: Performed By: #### L IPID, TSH, CMP #### [facility] [address] [place] [address] Dr. Leesa Urbina Erythrocyte distribution width (RBC) [Ratio] 13.6 % Normal 11.0-15.0 [facility] Comment on above: Performed By: #### L IPID, TSH, CMP #### [facility] [address] [place] [address] Dr. Leesa Urbina Hematocrit (Bld) [Volume fraction] 34.4 % Critically low 42.0-54.0 [facility] Comment on above: Performed By: #### L IPID, TSH, CMP #### [facility] [address] [place] [address] Dr. Leesa Urbina Hemoglobin (Bld) [Mass/Vol] 11.4 g/dL Critically low 14.0-18.0 [facility] Comment on above: Performed By: #### L IPID, TSH, CMP #### [facility] [address] [place] [address] Dr. Leesa Urbina IG # 0.02 10e3/ul Normal 0.00-0.03 [facility] Comment on above: Performed By: #### L IPID, TSH, CMP #### [facility] [address] [place] [address] Dr. Leesa Urbina IG % 0.3 % Normal 0.0-0.5 [facility] Comment on above: Performed By: #### L IPID, TSH, CMP #### [facility] [address] [place] [address] Dr. Leesa Urbina LYMPH # 2.1 103/ul Normal 1.2-3.8 [facility] Comment on above: Performed By: #### L IPID, TSH, CMP #### [facility] [address] [place] [address] Dr. Leesa Urbina Lymphocytes/100 WBC (Bld) 28.1 % Normal 20.5-60.0 [facility] Comment on above: Performed By: #### L IPID, TSH, CMP #### [facility] [address] [place] [address] Dr. Leesa Uribna MANUAL DIFF REQ NO Normal [facility] Comment on above: Performed By: #### L IPID, TSH, CMP #### [facility] [address] [place] [address] Dr. Leesa Urbina MCH (RBC) [Entitic mass] 31.1 pg Normal 25.9-34.0 [facility] Comment on above: Performed By: #### L IPID, TSH, CMP #### [facility] [address] [place] [address] Dr. Leesa Urbina MCHC (RBC) [Mass/Vol] 33.1 g/dL Normal 29.9-35.2 [facility] Comment on above: Performed By: #### L IPID, TSH, CMP #### [facility] [address] [place] [address] Dr. Leesa Urbina MCV (RBC) [Entitic vol] 93.7 fL Normal 80.0-94.0 [facility] Comment on above: Performed By: #### L IPID, TSH, CMP #### [facility] [address] [place] [address] Dr. Leesa Urbina MONO # 0.4 103/ul Normal 0.3-0.8 [facility] Comment on above: Performed By: #### L IPID, TSH, CMP #### [facility] [address] [place] [address] Dr. Leesa Urbina Monocytes/100 WBC (Bld) 6.0 % Normal 1.7-12.0 [facility] Comment on above: Performed By: #### L IPID, TSH, CMP #### [facility] [address] [place] [address] Dr. Leesa Urbina NEUT # 4.2 103/ul Normal 1.4-6.5 [facility] Comment on above: Performed By: #### L IPID, TSH, CMP #### [facility] [address] [place] [address] Dr. Leesa Urbina Neutrophils/100 WBC (Bld) 56.6 % Normal 43.0-75.0 [facility] Comment on above: Performed By: #### L IPID, TSH, CMP #### [facility] [address] [place] [address] Dr. Leesa Urbina Platelet mean volume (Bld) [Entitic vol] 10.1 fL Normal 9.5-13.5 [facility] Comment on above: Performed By: #### L IPID, TSH, CMP #### [facility] [address] [place] [address] [address] Leesa Urbina PLT 195 103/ul Normal 150-450 [facility] Comment on above: Performed By: #### L IPID, TSH, CMP #### [facility] [address] [place] [address] [address] Leesa Urbina RBC 3.67 106/ul Critically low 4.70-6.10 [facility] Comment on above: Performed By: #### L IPID, TSH, CMP #### [facility] [address] [place] [address] Dr. Leesa Urbina WBC 7.3 103/ul Normal 4.0-11.0 [facility] Comment on above: Performed By: #### L IPID, TSH, CMP #### [facility] [address] [place] [address] Dr. Leesa Urbina FERRITINon 09-03-2022 Ferritin [Mass/Vol] 44.0 ng/mL Normal 26.0-388.0 [facility] Comment on above: Performed By: #### F ERR, FETIBC #### [facility] [address] [place] [address] Dr. Leesa Urbina IRON AND TIBCon 09-03-2022 % SATURATION 23.5 % Normal [facility] Comment on above: Performed By: #### F ERR, FETIBC #### [facility] [address] [place] [address] Dr. Leesa Urbina Iron [Mass/Vol] 69.0 ug/dL Normal 65.0-175.0 [facility] Comment on above: Performed By: #### F ERR, FETIBC #### [facility] [address] [place] [address] Dr. Leesa Urbina TIBC DIRECT 294.0 ug/dL Normal 250.0-450.0 [facility] Comment on above: Performed By: #### F ERR, FETIBC #### [facility] [address] [place] [address] [address] Leesa Urbina Office Visit (Cardiology)on 07-14-2022 Follow-up visit Diagnoses/Problems Assessed Anticoagulated (V58.61) (Z79.01) Benign essential hypertension (401.1) (I10) Hyperlipidemia (272.4) (E78.5) Paroxysmal atrial fibrillation (427.31) (I48.0) Diabetes mellitus (250.00) (E11.9) Body mass index (BMI) of 24.0 to 24.9 in adult (V85.1) (Z68.24) Never a smoker Orders SocHx: Never a smoker Tobacco Use Screening; Status:Complete; Done: [id number] Patient Instructions Please bring all medicines, vitamins, [...] negative for complaint. Vitals Vital Signs Recorded: [id number] 09:08AM Heart Rate68, L Radial Omkbwphk828, LUE, Sitting Kworinqnd75, LUE, Sitting Height5 ft 11 in Pgxrfa804 lb BMI Yaisbtidfe18.13 kg/m2 BSA Calculated1.98 Tobacco Useb) No PHQ-2 [...] Screening.on 023 Adult depression screening assessment No [facility] [employer] [facility] 250 DO Work Phone: Fall risk assessment a) No falls within the last year [facility] 250 DO Work Phone: Tobacco use status CPHS b) No [facility] 250 DO Work Phone: CBC AUTO DIFFon 05-06-2022 BASO # 0.1 103/ul Normal 0.0-0.1 [facility] Comment on above: Performed By: #### C BC #### [facility] [address] [place] [address] Dr. Leesa Urbina Basophils/100 WBC (Bld) 1.4 % Normal 0.2-2.0 [facility] Comment on above: Performed By: #### C BC #### [facility] [address] [place] [address] Dr. Leesa Urbina EO # 0.4 103/ul Normal 0.0-0.7 [facility] Comment on above: Performed By: #### C BC #### [facility] [address] [place] [address] Dr. Leesa Urbina Eosinophils/100 WBC (Bld) 5.4 % Normal 0.9-7.0 [facility] Comment on above: Performed By: #### C BC #### [facility] [address] [place] [address] Dr. Leesa Urbina Erythrocyte distribution width (RBC) [Ratio] 13.3 % Normal 11.0-15.0 [facility] Comment on above: Performed By: #### C BC #### [facility] [address] [place] [address] Dr. Leesa Urbina Hematocrit (Bld) [Volume fraction] 35.8 % Critically low 42.0-54.0 [facility] Comment on above: Performed By: #### C BC #### [facility] [address] [place] [address] Dr. Leesa Urbina Hemoglobin (Bld) [Mass/Vol] 12.0 g/dL Critically low 14.0-18.0 [facility] Comment on above: Performed By: #### C BC #### [facility] [address] [place] [address] Dr. Leesa Urbina IG # 0.01 10e3/ul Normal 0.00-0.03 [facility] Comment on above: Performed By: #### C BC #### [facility] [address] [place] [address] Dr. Leesa Urbina IG % 0.2 % Normal 0.0-0.5 [facility] Comment on above: Performed By: #### C BC #### [facility] [address] [place] [address] Dr. Leesa Urbina LYMPH # 1.7 103/ul Normal 1.2-3.8 [facility] Comment on above: Performed By: #### C BC #### [facility] [address] [place] [address] Dr. Leesa Urbina Lymphocytes/100 WBC (Bld) 26.1 % Normal 20.5-60.0 [facility] Comment on above: Performed By: #### C BC #### [facility] [address] [place] [address] Dr. Leesa Urbina MANUAL DIFF REQ NO Normal [facility] [facility] Comment on above: Performed By: #### C BC #### [facility] [address] [place] [address] Dr. Leesa Urbina MCH (RBC) [Entitic mass] 31.0 pg Normal 25.9-34.0 [facility] Comment on above: Performed By: #### C BC #### [facility] [address] [place] [address] Dr. Leesa Urbina MCHC (RBC) [Mass/Vol] 33.5 g/dL Normal 29.9-35.2 [facility] Comment on above: Performed By: #### C BC #### [facility] [address] [address] [address] Leesa Urbina MCV (RBC) [Entitic vol] 92.5 fL Normal 80.0-94.0 [facility] Comment on above: Performed By: #### C BC #### [facility] [address] [address] [address] Leesa Urbina MONO # 0.4 103/ul Normal 0.3-0.8 [facility] Comment on above: Performed By: #### C BC #### [facility] [address] [place] [address] Dr. Leesa Urbina Monocytes/100 WBC (Bld) 6.5 % Normal 1.7-12.0 [facility] Comment on above: Performed By: #### C BC #### [facility] [address] [place] [address] Dr. Leesa Urbina NEUT # 4.0 103/ul Normal 1.4-6.5 [facility] Comment on above: Performed By: #### C BC #### [facility] [address] [place] [address] Dr. Leesa Urbina Neutrophils/100 WBC (Bld) 60.4 % Normal 43.0-75.0 [facility] Comment on above: Performed By: #### C BC #### [facility] [address] [place] [address] Dr. Leesa Urbina Platelet mean volume (Bld) [Entitic vol] 10.6 fL Normal 9.5-13.5 [facility] Comment on above: Performed By: #### C BC #### [facility] [address] [place] [address] Dr. Leesa Urbina PLT 185 103/ul Normal 150-450 [facility] Comment on above: Performed By: #### C BC #### [facility] [address] [place] [address] Dr. Leesa Urbina RBC 3.87 106/ul Critically low 4.70-6.10 [facility] Comment on above: Performed By: #### C BC #### [facility] [address] [address] [address] Leesa Urbina WBC 6.6 103/ul Normal 4.0-11.0 [facility] Comment on above: Performed By: #### C BC #### [facility] [address] [address] [address] Leesa Urbina GLYCOHEMOGLOBIN A1Con 2021 ADA RECOMMENDATION SEE BELOW Normal [facility] Comment on above: Result Comment: ADA RECOMMENDED LIMIT 4.0 - 6.0 ADA THERAPEUTIC TARGET < 7.0 ACTION SUGGESTED > 7.0 Performed By: #### A 1C #### [facility] [address] [place] [address] Dr. Leesa Urbina Glucose [Mass/Vol] 151 mg/dL Normal [facility] Comment on above: Performed By: #### A 1C #### [facility] [address] [place] [address] Dr. Leesa Urbina HbA1c (Bld) [Mass fraction] 6.9 % Critically high 4.5-6.2 [facility] Comment on above: Performed By: #### A 1C #### [facility] [address] [place] [address] Dr. Leesa Urbina LIPID PROFILEon 05-06-2022 CHOL-HDL RATIO NORM SEE BELOW Normal [facility] Comment on above: Result Comment: 3.3 - 4.4 LOW RISK 4.4 - 7.1 AVERAGE RISK 7.1 - 11.0 MODERATE RISK >11.0 HIGH RISK Performed By: #### L IPID, TSH, CMP #### [facility] [address] [place] [address] Dr. Leesa Urbina Cholesterol [Mass/Vol] 136 mg/dL Normal <=200 [facility] Comment on above: Performed By: #### L IPID, TSH, CMP #### [facility] [address] [place] [address] Dr. Leesa Urbina Cholesterol in HDL [Mass/Vol] 62 mg/dL Critically high 40-60 [facility] Comment on above: Performed By: #### L IPID, TSH, CMP #### [facility] [address] [address] [address] Leesa Urbina Cholesterol in LDL [Mass/Vol] 53.0 mg/dL Normal [facility] Comment on above: Performed By: #### L IPID, TSH, CMP #### [facility] [address] [address] [address] Leesa Urbina Cholesterol.total/Chol esterol in HDL [Mass ratio] 2.2 {ratio} Normal [facility] Comment on above: Performed By: #### L IPID, TSH, CMP #### [facility] [address] [address] [address] Leesa Urbina HDL NORMAL > or = 60 mg/dl - LOW CARDIOVASCULAR RISK <40 mg/dl - HIGH CARDIOVASCULAR RISK Normal [facility] Comment on above: Performed By: #### L IPID, TSH, CMP #### [facility] [address] [place] [address] Dr. Leesa Urbina LDL CALC NORMAL SEE BELOW Normal [facility] Comment on above: Result Comment: <100 mg/dl OPTIMAL 100 - 129 mg/dl NEAR OR ABOVE OPTIMAL 130 - 159 mg/dl BORDERLINE HIGH 160 - 189 mg/dl HIGH >190 mg/dl VERY HIGH Performed By: #### L IPID, TSH, CMP #### [facility] [address] [address] [address] Leesa Urbina Triglyceride [Mass/Vol] 105 mg/dL Normal <=150 [facility] Comment on above: Performed By: #### L IPID, TSH, CMP #### [facility] [address] [place] [address] Dr. Leesa Urbina VLDL CALC 21.0 mg/dL Normal [facility] Comment on above: Performed By: #### L IPID, TSH, CMP #### [facility] [address] [address] [address] Leesa Urbina PROF 14(COMP METB)on 022 Albumin [Mass/Vol] 3.4 g/dL Normal 3.4-5.0 [facility] Comment on above: Performed By: #### L IPID, TSH, CMP #### [facility] [address] [address] [address] Leesa Urbina Albumin/Globulin [Mass ratio] 1.1 {ratio} Normal [facility] Comment on above: Performed By: #### L IPID, TSH, CMP #### [facility] [address] [address] [address] Leesa Urbina ALP [Catalytic activity/Vol] 77 U/L Normal 46-116 [facility] Comment on above: Performed By: #### L IPID, TSH, CMP #### [facility] [address] [address] [address] Leesa Urbina ALT [Catalytic activity/Vol] 12 U/L Critically low 16-63 [facility] Comment on above: Performed By: #### L IPID, TSH, CMP #### [facility] [address] [address] [address] Leesa Urbina Anion gap [Moles/Vol] 12.7 mmol/L Normal [facility] Comment on above: Performed By: #### L IPID, TSH, CMP #### [facility] [address] [address] [address] Leesa Urbina AST [Catalytic activity/Vol] 19 U/L Normal 15-37 [facility] Comment on above: Performed By: #### L IPID, TSH, CMP #### [facility] [address] [address] [address] Leesa Urbina Bilirubin [Mass/Vol] 0.4 mg/dL Normal 0.2-1.0 [facility] Comment on above: Performed By: #### L IPID, TSH, CMP #### [facility] [address] [address] [address] Leesa Urbina Calcium [Mass/Vol] 8.5 mg/dL Normal 8.5-10.1 [facility] Comment on above: Performed By: #### L IPID, TSH, CMP #### [facility] [address] [address] [address] Leesa Urbina Chloride [Moles/Vol] 107 mmol/L Normal 98-107 [facility] Comment on above: Performed By: #### L IPID, TSH, CMP #### [facility] [address] [address] [address] Leesa Urbina CO2 [Moles/Vol] 27.4 mmol/L Normal 21.0-32.0 [facility] Comment on above: Performed By: #### L IPID, TSH, CMP #### [facility] [address] [place] [address] Dr. Leesa Urbina Creatinine [Mass/Vol] 1.06 mg/dL Normal 0.70-1.30 [facility] Comment on above: Performed By: #### L IPID, TSH, CMP #### [facility] [address] [place] [address] Dr. Lesea Urbina EGFR-AF BURKINAN >60 Normal >=60 [facility] Comment on above: Performed By: #### L IPID, TSH, CMP #### [facility] [address] [place] [address] Dr. Leesa Urbina EGFR-NON AF BURKINAN >60 Normal >=60 [facility] Comment on above: Performed By: #### L IPID, TSH, CMP #### [facility] [address] [place] [address] Dr. Leesa Urbina Globulin (S) [Mass/Vol] 3.1 g/dL Normal [facility] Comment on above: Performed By: #### L IPID, TSH, CMP #### [facility] [address] [place] [address] Dr. Leesa Urbina Glucose [Mass/Vol] 171 mg/dL Critically high 74-106 [facility] Comment on above: Performed By: #### L IPID, TSH, CMP #### [facility] [address] [place] [address] Dr. Leesa Urbina Potassium [Moles/Vol] 4.1 mmol/L Normal 3.5-5.1 [facility] Comment on above: Performed By: #### L IPID, TSH, CMP #### [facility] [address] [place] [address] Dr. eLesa Urbina Protein [Mass/Vol] 6.5 g/dL Normal 6.4-8.2 [facility] Comment on above: Performed By: #### L IPID, TSH, CMP #### [facility] [address] [address] [address] Leesa Urbina Sodium [Moles/Vol] 143 mmol/L Normal 136-145 [facility] Comment on above: Performed By: #### L IPID, TSH, CMP #### [facility] [address] [address] [address] Leesa Urbina Urea nitrogen [Mass/Vol] 24.0 mg/dL Critically high 7.0-18.0 [facility] Comment on above: Performed By: #### L IPID, TSH, CMP #### [facility] [address] [address] [address] Leesa Urbina Urea nitrogen/Creatinine [Mass ratio] 22.6 mg/mg Normal [facility] Comment on above: Performed By: #### L IPID, TSH, CMP #### [facility] [address] [address] [address] Leesa Urbina Basophils Auto (Bld) [#/Vol] Ordered By: Juan Ventura on 12-05-2021 Basophils (Bld) [#/Vol] 0.1 10*3/uL 0.0-0.2 [facility] Basophils/100 WBC Auto (Bld) Ordered By: Juan Ventura on 12-05-2021 Basophils/100 WBC (Bld) 0.9 % [facility] Blood hemoglobin measurement (mass/volume)Ordered By: Juan Ventura on 12-05-2021 Hemoglobin (Bld) [Mass/Vol] 12.4 g/dL 13.0-17.0 [facility] Blood leukocytes automated c ount (number/volume)Ordered By: Juan Ventura on 12-05-2021 WBC (Bld) [#/Vol] 7.0 10*3/uL 4.5-11.0 [facility] COVID-19 Positive/NegativeOr dered By: Juan Ventura on 07-15-2022 SARS-CoV-2 (COVID-19) N gene RENETTA+probe Ql (Resp) Negative Negative [facility] Comment on above: Testing for SARS-CoV -2 by RT-PCR This test was developed and its performance characteristics determined by [employer] and validated at the [facility]. This test has not been FDA [...] on 12-05-2021 Creatinine [Mass/Vol] 1.28 mg/dL 0.64-1.27 [facility] Eosinophils Auto (Bld) [#/Vo l]Ordered By: Juan Ventura on 12-05-2021 Eosinophils (Bld) [#/Vol] 0.1 10*3/uL 0.0-0.45 [facility] Eosinophils/100 WBC Auto (Bl d)Ordered By: Juan Ventura on 12-05-2021 Eosinophils/100 WBC (Bld) 2.1 % [facility] Erythrocyte distribution wid th Auto (RBC) [Ratio]Ordered By: Juan Ventura on 12-05-2021 Erythrocyte distribution width (RBC) [Ratio] 14.6 % 12.0-14.8 [facility] Estimated glomerular filtrat ion rate (GFR) non- AmericanOrdered By: Juan Ventura on 12-05-2021 GFR/1.73 sq M.predicted among non-blacks MDRD (S/P/Bld) [Vol rate/Area] 54 mL/Min [facility] Hematocrit Auto (Bld) [Volum e fraction]Ordered By: Juan Ventura on 12-05-2021 Hematocrit (Bld) [Volume fraction] 37.3 % 38.8-50.0 [facility] - Hematology and Cell countsOrdered By: Juan Ventura on 12-05-2021 Nucleated RBC/100 WBC (Bld) [Ratio] 0.0 % 0-0.5 [facility] Lymphocytes Auto (Bld) [#/Vo l]Ordered By: Juan Ventura on 12-05-2021 Lymphocytes (Bld) [#/Vol] 1.4 10*3/uL 1.00-4.8 [facility] Lymphocytes/100 WBC Auto (Bl d)Ordered By: Juan Ventura on 12-05-2021 Lymphocytes/100 WBC (Bld) 19.8 % [facility] MCH Auto (RBC) [Entitic mass ]Ordered By: Juan Ventura on 12-05-2021 MCH (RBC) [Entitic mass] 30.8 pg 27.5-35.2 [facility] MCHC Auto (RBC) [Mass/Vol]Or dered By: Juan Ventura on 12-05-2021 MCHC (RBC) [Mass/Vol] 33.1 g/dL 32.5-35.6 [facility] MCV Auto (RBC) [Entitic vol] Ordered By: Juan Ventura on 12-05-2021 MCV (RBC) [Entitic vol] 93.1 fL 83.5-101 [facility] Monocytes Auto (Bld) [#/Vol] Ordered By: Juan Ventura on 12-05-2021 Monocytes (Bld) [#/Vol] 0.5 10*3/uL 0.0-0.8 [facility] Monocytes/100 WBC Auto (Bld) Ordered By: Juan Ventura on 12-05-2021 Monocytes/100 WBC (Bld) 7.3 % [facility] Neutrophils Auto (Bld) [#/Vo l]Ordered By: Juan Ventura on 12-05-2021 Neutrophils (Bld) [#/Vol] 4.9 10*3/uL 1.8-7.7 [facility] Neutrophils/100 WBC Auto (Bl d)Ordered By: Juan Ventura on 12-05-2021 Neutrophils/100 WBC (Bld) 69.9 % [facility] No Panel InformationOrdered By: Juan Ventura on 12-05-2021 Estimated GFR () > 60 mL/Min [facility] Comment on above: GFR estimated refere nce range: According to KDOQI guidelines, <60 ml/min/1.73m2 is sufficient to diagnose a patient with chronic kidney disease. Pharmacy Creatinine Clearance (Chem N/A [facility] Platelet mean volume Auto (B ld) [Entitic vol]Ordered By: Juan Ventura on 12-05-2021 Platelet mean volume (Bld) [Entitic vol] 8.9 fL 6.6-10.1 [facility] Platelets Auto (Bld) [#/Vol] Ordered By: Juan Ventura on 12-05-2021 Platelets (Bld) [#/Vol] 194 10*3/uL 150-450 [facility] RBC Auto (Bld) [#/Vol]Ordere d By: Juan Ventura on 12-05-2021 RBC (Bld) [#/Vol] 4.00 10*6/uL 3.90-5.[address] [facility] Serum or plasma calcium fco urement (mass/volume)Ordered By: Juan Ventura on 12-05-2021 Calcium [Mass/Vol] 9.2 mg/dL 8.2-10.2 [facility] Serum or plasma chloride daniel surement (moles/volume)Ordered By: Juan Ventura on 12-05-2021 Chloride [Moles/Vol] 107 mmol/L 95-114 [facility] Serum or plasma glucose fco urement (mass/volume)Ordered By: Juan Ventura on 12-05-2021 Glucose [Mass/Vol] 117 mg/dL 70-100 [facility] Comment on above: ADA recommended refe rence range Random Glucose Reference Range is dependent on time and content of last meal. Glucose of more than 200 mg/dL in a nonstressed, ambulatory subject supports the diagnosis of Diabetes Mellitus. Serum or plasma potassium me asurement (moles/volume)Ordered By: Juan Ventura on 12-05-2021 Potassium [Moles/Vol] 4.6 mmol/L 3.5-5.1 [facility] Serum or plasma sodium measu rement (moles/volume)Ordered By: Juan Ventura on 12-05-2021 Sodium [Moles/Vol] 141 mmol/L 136-146 [facility] Serum or plasma total carbon dioxide measurement (moles/volume)Ordered By: Juan Ventura on 12-05-2021 CO2 [Moles/Vol] 26.2 mmol/L 22.0-30.0 [facility] Serum or plasma urea nitroge n measurement (mass/volume)Ordered By: Juan Ventura on 12-05-2021 Urea nitrogen [Mass/Vol] 23 mg/dL 9-23 [facility] CBC AUTO DIFFon 11-05-2021 BASO # 0.1 103/ul Normal 0.0-0.1 [facility] Comment on above: Performed By: #### C BC #### [facility] [address] [address] [address] Leesa Urbina Basophils/100 WBC (Bld) 0.8 % Normal 0.2-2.0 [facility] Comment on above: Performed By: #### C BC #### [facility] [address] [address] [address] Leesa Urbina EO # 0.4 103/ul Normal 0.0-0.7 [facility] Comment on above: Performed By: #### C BC #### [facility] [address] [address] [address] Leesa Urbina Eosinophils/100 WBC (Bld) 5.6 % Normal 0.9-7.0 [facility] Comment on above: Performed By: #### C BC #### [facility] [address] [address] [address] Leesa Urbina Erythrocyte distribution width (RBC) [Ratio] 13.4 % Normal 11.0-15.0 [facility] Comment on above: Performed By: #### C BC #### [facility] [address] [address] [address] Leesa Urbina Hematocrit (Bld) [Volume fraction] 36.1 % Critically low 42.0-54.0 [facility] Comment on above: Performed By: #### C BC #### [facility] [address] [place] [address] Dr. Leesa Urbina Hemoglobin (Bld) [Mass/Vol] 11.8 g/dL Critically low 14.0-18.0 [facility] Comment on above: Performed By: #### C BC #### [facility] [address] [place] [address] Dr. Leesa Urbina IG # 0.02 10e3/ul Normal 0.00-0.03 [facility] Comment on above: Performed By: #### C BC #### [facility] [address] [place] [address] Dr. Leesa Urbina IG % 0.3 % Normal 0.0-0.5 [facility] Comment on above: Performed By: #### C BC #### [facility] [address] [place] [address] Dr. Leesa Urbina LYMPH # 1.8 103/ul Normal 1.2-3.8 [facility] Comment on above: Performed By: #### C BC #### [facility] [address] [place] [address] Dr. Leesa Urbina Lymphocytes/100 WBC (Bld) 28.4 % Normal 20.5-60.0 [facility] Comment on above: Performed By: #### C BC #### [facility] [address] [place] [address] Dr. Leesa Urbina MANUAL DIFF REQ NO Normal [facility] Comment on above: Performed By: #### C BC #### [facility] [address] [place] [address] Dr. Leesa Urbina MCH (RBC) [Entitic mass] 30.7 pg Normal 25.9-34.0 [facility] Comment on above: Performed By: #### C BC #### [facility] [address] [address] [address] Leesa Urbina MCHC (RBC) [Mass/Vol] 32.7 g/dL Normal 29.9-35.2 [facility] Comment on above: Performed By: #### C BC #### [facility] [address] [address] [address] Leesa Urbina MCV (RBC) [Entitic vol] 94.0 fL Normal 80.0-94.0 [facility] Comment on above: Performed By: #### C BC #### [facility] [address] [place] [address] Dr. Leesa Urbina MONO # 0.5 103/ul Normal 0.3-0.8 [facility] Comment on above: Performed By: #### C BC #### [facility] [address] [place] [address] Dr. Leesa Urbina Monocytes/100 WBC (Bld) 8.1 % Normal 1.7-12.0 [facility] Comment on above: Performed By: #### C BC #### [facility] [address] [place] [address] Dr. Leesa Urbina NEUT # 3.5 103/ul Normal 1.4-6.5 [facility] Comment on above: Performed By: #### C BC #### [facility] [address] [place] [address] Dr. Leesa Urbina Neutrophils/100 WBC (Bld) 56.8 % Normal 43.0-75.0 [facility] Comment on above: Performed By: #### C BC #### [facility] [address] [place] [address] Dr. Leesa Urbina Platelet mean volume (Bld) [Entitic vol] 10.3 fL Normal 9.5-13.5 [facility] Comment on above: Performed By: #### C BC #### [facility] [address] [place] [address] Dr. Leesa Urbina PLT 179 103/ul Normal 150-450 [facility] Comment on above: Performed By: #### C BC #### [facility] [address] [address] [address] Leesa Urbina RBC 3.84 106/ul Critically low 4.70-6.10 [facility] Comment on above: Performed By: #### C BC #### [facility] [address] [address] [address] Leesa Urbina WBC 6.2 103/ul Normal 4.0-11.0 [facility] Comment on above: Performed By: #### C BC #### [facility] [address] [address] [address] Leesa Urbina GLYCOHEMOGLOBIN A1Con 2021 ADA RECOMMENDATION SEE BELOW Normal [facility] Comment on above: Result Comment: ADA RECOMMENDED LIMIT 4.0 - 6.0 ADA THERAPEUTIC TARGET < 7.0 ACTION SUGGESTED > 7.0 Performed By: #### L IPID, TSH, CMP #### [facility] [address] [address] [address] Leesa Urbina Glucose [Mass/Vol] 151 mg/dL Normal [facility] Comment on above: Performed By: #### L IPID, TSH, CMP #### [facility] [address] [address] [address] Leesa Urbina HbA1c (Bld) [Mass fraction] 6.9 % Critically high 4.5-6.2 [facility] Comment on above: Performed By: #### L IPID, TSH, CMP #### [facility] [address] [address] [address] Leesa Urbina LIPID PROFILEon 11-05-2021 CHOL-HDL RATIO NORM SEE BELOW Normal [facility] Comment on above: Result Comment: 3.3 - 4.4 LOW RISK 4.4 - 7.1 AVERAGE RISK 7.1 - 11.0 MODERATE RISK >11.0 HIGH RISK Performed By: #### L IPID, TSH, CMP #### [facility] [address] [address] [address] Leesa Urbina Cholesterol [Mass/Vol] 150 mg/dL Normal <=200 [facility] Comment on above: Performed By: #### L IPID, TSH, CMP #### [facility] [address] [address] [address] Leesa Urbina Cholesterol in HDL [Mass/Vol] 60 mg/dL Normal 40-60 [facility] Comment on above: Performed By: #### L IPID, TSH, CMP #### [facility] [address] [address] [address] Leesa Urbina Cholesterol in LDL [Mass/Vol] 70.8 mg/dL Normal [facility] Comment on above: Performed By: #### L IPID, TSH, CMP #### [facility] [address] [address] [address] Leesa Urbina Cholesterol.total/Chol esterol in HDL [Mass ratio] 2.5 {ratio} Normal [facility] Comment on above: Performed By: #### L IPID, TSH, CMP #### [facility] [facility] [address] [address] [address] Leesa Urbina HDL NORMAL > or = 60 mg/dl - LOW CARDIOVASCULAR RISK <40 mg/dl - HIGH CARDIOVASCULAR RISK Normal [facility] Comment on above: Performed By: #### L IPID, TSH, CMP #### [facility] [address] [address] [address] Leesa Urbina LDL CALC NORMAL SEE BELOW Normal [facility] Comment on above: Result Comment: <100 mg/dl OPTIMAL 100 - 129 mg/dl NEAR OR ABOVE OPTIMAL 130 - 159 mg/dl BORDERLINE HIGH 160 - 189 mg/dl HIGH >190 mg/dl VERY HIGH Performed By: #### L IPID, TSH, CMP #### [facility] [address] [address] [address] Leesa Urbina Triglyceride [Mass/Vol] 96 mg/dL Normal <=150 [facility] Comment on above: Performed By: #### L IPID, TSH, CMP #### [facility] [address] [address] [address] Leesa Urbina VLDL CALC 19.2 mg/dL Normal [facility] Comment on above: Performed By: #### L IPID, TSH, CMP #### [facility] [address] [address] [address] Leesa Urbina MICROALB CREAT RATIO RANDOMo n 11-05-2021 mALB <1.3 Normal <=30.0 [facility] Comment on above: Performed By: #### L IPID, TSH, CMP #### [facility] [address] [address] [address] Leesa Urbina MALB CR RATIO 11.4 mg/g Normal 0.0-29.9 [facility] Comment on above: Performed By: #### L IPID, TSH, CMP #### [facility] [address] [address] [address] Leesa Urbina MALB CR RATIO RANGE SEE BELOW Normal [facility] Comment on above: Result Comment: NO M ICROALBUMINURIA 0-29 MG/G CLINICAL MICROALBUMINURIA 30-300 MG/G MACROALBUMINURIA >300 MG/G Performed By: #### L IPID, TSH, CMP #### [facility] [address] [address] [address] Leesa Urbina URINE CREAT 114.03 mg/dL Normal 20.00-300.00 [facility] Comment on above: Performed By: #### L IPID, TSH, CMP #### [facility] [address] [address] [address] Leesa Urbina PROF 14(COMP METB)on 022 Albumin [Mass/Vol] 2.3 g/dL Critically low 3.4-5.0 [facility] Comment on above: Performed By: #### L IPID, TSH, CMP #### [facility] [address] [address] [address] Leesa Urbina Albumin/Globulin [Mass ratio] 0.5 {ratio} Normal [facility] Comment on above: Performed By: #### L IPID, TSH, CMP #### [facility] [address] [address] [address] Leesa Urbina ALP [Catalytic activity/Vol] 77 U/L Normal 46-116 [facility] Comment on above: Performed By: #### L IPID, TSH, CMP #### [facility] [address] [address] [address] Leesa Urbina ALT [Catalytic activity/Vol] 16 U/L Normal 16-63 [facility] Comment on above: Performed By: #### L IPID, TSH, CMP #### [facility] [address] [address] [address] Leesa Urbina Anion gap [Moles/Vol] 13.8 mmol/L Normal Th e [facility] Comment on above: Performed By: #### L IPID, TSH, CMP #### [facility] [address] [place] [address] Dr. Leesa Urbina AST [Catalytic activity/Vol] 15 U/L Normal 15-37 [facility] Comment on above: Performed By: #### L IPID, TSH, CMP #### [facility] [address] [place] [address] Dr. Leesa Urbina Bilirubin [Mass/Vol] 0.5 mg/dL Normal 0.2-1.0 [facility] Comment on above: Performed By: #### L IPID, TSH, CMP #### [facility] [address] [place] [address] Dr. Leesa Urbina Calcium [Mass/Vol] 8.7 mg/dL Normal 8.5-10.1 [facility] Comment on above: Performed By: #### L IPID, TSH, CMP #### [facility] [address] [place] [address] Dr. Leesa Urbina Chloride [Moles/Vol] 107 mmol/L Normal 98-107 [facility] Comment on above: Performed By: #### L IPID, TSH, CMP #### [facility] [address] [place] [address] Dr. Leesa Urbina CO2 [Moles/Vol] 26.2 mmol/L Normal 21.0-32.0 [facility] Comment on above: Performed By: #### L IPID, TSH, CMP #### [facility] [address] [place] [address] Dr. Lesea Urbina Creatinine [Mass/Vol] 1.25 mg/dL Normal 0.70-1.30 [facility] Comment on above: Performed By: #### L IPID, TSH, CMP #### [facility] [address] [address] [address] Leesa Urbina EGFR-AF BURKINAN >60 Normal >=60 [facility] Comment on above: Performed By: #### L IPID, TSH, CMP #### [facility] [address] [address] [address] Leesa Urbina EGFR-NON AF BURKINAN 55 mL/min/1.73m2 Critically low >=60 [facility] Comment on above: Performed By: #### L IPID, TSH, CMP #### [facility] [address] [address] [address] Leesa Urbina Globulin (S) [Mass/Vol] 4.3 g/dL Normal [facility] Comment on above: Performed By: #### L IPID, TSH, CMP #### [facility] [address] [place] [address] Dr. Leesa Urbina Glucose [Mass/Vol] 137 mg/dL Critically high 74-106 [facility] Comment on above: Performed By: #### L IPID, TSH, CMP #### [facility] [address] [address] [address] Leesa Urbina Potassium [Moles/Vol] 4.0 mmol/L Normal 3.5-5.1 [facility] Comment on above: Performed By: #### L IPID, TSH, CMP #### [facility] [address] [address] [address] Leesa Urbina Protein [Mass/Vol] 6.6 g/dL Normal 6.4-8.2 [facility] Comment on above: Performed By: #### L IPID, TSH, CMP #### [facility] [address] [place] [address] Dr. Leesa Urbina Sodium [Moles/Vol] 143 mmol/L Normal 136-145 [facility] Comment on above: Performed By: #### L IPID, TSH, CMP #### [facility] [address] [address] [address] Leesa Urbina Urea nitrogen [Mass/Vol] 24.0 mg/dL Critically high 7.0-18.0 [facility] Comment on above: Performed By: #### L IPID, TSH, CMP #### [facility] [address] [address] [address] Leesa Urbina Urea nitrogen/Creatinine [Mass ratio] 19.2 mg/mg Normal [facility] Comment on above: Performed By: #### L IPID, TSH, CMP #### [facility] [address] [address] [address] Leesa Urbina TSHon 11-05-2021 TSH 0.996 uIU/mL Normal 0.358-3.740 [facility] Comment on above: Performed By: #### L IPID, TSH, CMP #### [facility] [address] [address] [address] Leesa Urbina Tobacco Screening.on 022 Adult depression screening assessment No [facility] 250 DO Work Phone: Fall risk assessment a) No falls within the last year [facility] 250 DO Work Phone: Tobacco use status CPHS b) No [facility] 250 DO Work Phone: Vital Signs Date Time Vital Sign Value Performing Clinician Facility 07-13-2023 08:34-0500 Body height 180.3 cm Dev Camp MD Work Phone: [facility] 07-13-2023 08:34-0500 Body mass index (BMI) [Ratio] 23.99 kg/m2 Dev Camp MD Work Phone: [facility] 07-13-2023 08:34-0500 Body weight 78.02 kg Dev Camp MD Work Phone: [facility] 07-13-2023 08:34-0500 Diastolic blood pressure 64 mm[Hg] Dev Camp MD Work Phone: [facility] 07-13-2023 08:34-0500 Heart rate 60 /min Dev Camp MD Work Phone: [facility] 07-13-2023 08:34-0500 Systolic blood pressure 108 mm[Hg] Dev Camp MD Work Phone: [facility] 11-17-2022 14:15-0400 Body height 180.34 cm Imad Asaad Other [employer] Other 11-17-2022 14:15-0400 Body mass index (BMI) [Ratio] 23.71 kg/m2 Imad Asaad Other [employer] Other 11-17-2022 14:15-0400 Body weight 77.11 kg Imad Asaad Other [employer] Other 11-17-2022 14:15-0400 Diastolic blood pressure 78 mm[Hg] Imad Asaad Other [employer] Other 11-17-2022 14:15-0400 Systolic blood pressure 127 mm[Hg] Imad Asaad Other [employer] Other 07-14-2022 09:08-0500 Body height 180.34 cm Gabriel Bello Work Phone: [facility] [employer] 250 DO Work Phone: 07-14-2022 09:08-0500 Body mass index (BMI) [Ratio] 24.13 kg/m2 Gabriel Bello Work Phone: [facility] [employer] 250 DO Work Phone: 07-14-2022 09:08-0500 Body surface area Derived from formula 1.98 m2 Gabriel Bello Work Phone: [facility] [employer] 250 DO Work Phone: 07-14-2022 09:08-0500 Body weight 78.47 kg Gabriel Bello Work Phone: [facility] 250 DO Work Phone: 07-14-2022 09:08-0500 Diastolic blood pressure 78 mm[Hg] Gabriel Bello Work Phone: [facility] 250 DO Work Phone: 07-14-2022 09:08-0500 Heart rate 68 /min Gabriel Bello Work Phone: [facility] 250 DO Work Phone: 07-14-2022 09:08-0500 Systolic blood pressure 124 mm[Hg] Gabriel Bello Work Phone: [facility] 250 DO Work Phone: 07-03-2021 15:20-0500 Diastolic blood pressure 78 mm[Hg] Gabriel Bello Work Phone: [facility] 250 DO Work Phone: 07-03-2021 15:20-0500 Heart rate 65 /min Gabriel Bello Work Phone: [facility] 250 DO Work Phone: 07-03-2021 15:20-0500 Systolic blood pressure 136 mm[Hg] Gabriel Bello Work Phone: [facility] 250 DO Work Phone: 07-03-2021 15:17-0500 Body height 180.34 cm Gabriel Bello Work Phone: [facility] 250 DO Work Phone: 07-03-2021 15:17-0500 Body mass index (BMI) [Ratio] 24.97 kg/m2 Gabriel Bello Work Phone: [facility] 250 DO Work Phone: 07-03-2021 15:17-0500 Body surface area Derived from formula 2.01 m2 Gabriel Bello Work Phone: [facility] 250 DO Work Phone: 07-03-2021 15:17-0500 Body weight 81.19 kg Gabriel Bello Work Phone: [facility] 250 DO Work Phone: 07-03-2021 15:17-0500 Diastolic blood pressure 80 mm[Hg] Gabriel Bello Work Phone: [facility] 250 DO Work Phone: 07-03-2021 15:17-0500 Systolic blood pressure 151 mm[Hg] Gabriel Bello Work Phone: [facility] 250 DO Work Phone: Encounters Encounter Date Encounter Type Care Provider Facility Start: 11-15-2023 End: 11-15-2023 ambulatory GABRIEL BELLO Not Available Start: 10-26-2023 End: 10-26-2023 ambulatory LAURA Alicia BARROW Not Available Start: 10-08-2023 End: 10-08-2023 ambulatory GABRIEL BELLO Not Available Start: 10-07-2023 End: 10-07-2023 ambulatory GABRIEL BELLO Not Available Start: 10-07-2023 End: 10-07-2023 ambulatory GABRIEL BELLO Not Available Start: 09-13-2023 End: 09-13-2023 ambulatory Miller Donald Facility:[facility] Start: 09-13-2023 End: 09-13-2023 ambulatory DO Gabriel Bello Work Phone: [facility] Work Phone: Start: 09-13-2023 End: 09-13-2023 Patient encounter procedure DO Gabriel Bello Work Phone: [facility] Work Phone: Start: 07-13-2023 End: 07-13-2023 ambulatory DEV CAMP [facility] Ambulatory Start: 07-13-2023 End: 07-13-2023 Office outpatient visit 25 minutes Dev Camp MD Work Phone: [facility] Comment on above: Benign essential hyp ertension (Primary Dx); Mixed hyperlipidemia; Paroxysmal atrial fibrillation (CMS/HCC); Former smoker Start: 05-26-2023 End: 05-26-2023 ambulatory CHRIS PATEL Not Available Start: 05-12-2023 End: 05-12-2023 ambulatory GABRIEL BELLO Not Available Start: 04-26-2023 End: 04-26-2023 ambulatory LAURA BARROW Not Available Start: 12-24-2022 End: 12-24-2022 ambulatory Imad Asaad Facility:[facility] Start: 11-26-2022 End: 11-26-2022 ambulatory Imad Asaad Facility:[facility] Start: 11-26-2022 End: 11-26-2022 ambulatory DO Gabriel Bello Work Phone: [facility] Work Phone: Start: 11-26-2022 End: 11-26-2022 Patient encounter procedure DO Gabriel Bello Work Phone: [facility] [place] Work Phone: Start: 11-17-2022 End: 11-17-2022 ambulatory Imad Asaad Other [facility] [employer] Other Start: 11-17-2022 Office outpatient ne w 45 minutes Imad Asaad [facility] Start: 11-17-2022 Telephone encounter Imad Asaad [facility] Start: 09-03-2022 End: 09-04-[address] GABRIEL BELLO Facility: Start: 07-14-2022 Office outpatient visit 25 minutes Gbariel Bello Work Phone: [address] [address] DO Work Phone: Start: 07-14-[address] Gabriel Kulkarni Facility:[id number] Start: 05-25-2022 End: 05-26-[address] GABRIEL BELLO Facility:[facility] Start: 05-06-2022 End: 05-07-[address] GABRIEL BELLO Facility:[facility] Start: 03-27-2022 Rx Renewal Gabriel mae Work Phone: [facility] 250 DO Work Phone: Start: 12-05-2021 End: 12-05-2021 Patient encounter procedure DO Gabriel Bello Work Phone: [facility]or[facility] Testing Start: 11-20-2021 End: 11-21-[address] DOCTOR BISHOP Facility:[facility] Start: 11-05-2021 End: 11-06-[address] GABRIEL BELLO Facility:[facility] Start: 07-03-2021 Office outpatient visit 25 minutes Gabriel Bello Work Phone: [facility] 250 DO Work Phone: Start: 03-05-2021 Rx Renewal Marina lozada MD Work Phone: [facility] 250 DO Work Phone: Start: 07-12-2020 End: 07-12-2020 Discharged Recurring Gabriel Bello [facility] Vaccine Procedures Date Procedure Procedure Detail Performing Clinician Start: 09-13-2023 Positron emission tomography DO Gabriel Bello Work Phone: Start: 07-13-2023 ECG 12-LEAD DEV JAMISON Start: 07-13-2023 Ecg routine ecg w/le ast 12 lds w/i&r Dev Camp MD Work Phone: Start: 11-26-2022 Computed tomography of abdomen and pelvis with contrast DO Gabriel Bello Work Phone: Start: 05-25-[address] DOCTOR BSIHOP Comment on above: Performed By: #### L IPID, TSH, CMP #### [facility] [address] [place] [address] Dr. Leesa Urbina Start: 11-20-[address] DOCTOR BISHOP Comment on above: Performed By: #### P SAD #### [facility] [address] [address] [address] Leesa Urbina Appendectomy Gabriel daniel Work Phone: Cataract surgery Gabriel Alicia morris Work Phone: Colonoscopy Gabriel A Changma n Work Phone: Comment on above: [id number] Jovanny Yu; Operation on lip Gabriel Alicia morris Work Phone: Prostatectomy Gabriel mae Work Phone: Plan of Treatment Date Care Activity Detail Author Start: 07-18-2024 End: 07-18-2024 Patient encounter procedure 07/18/2024 8:50 AM EST Office Visit [facility] [address] [address] Dev Camp MD 703 [facility] [address] [address] [facility] Start: 07-13-2023 FUV, Provider: Dev Camp, Status: Pen, Time: 8:50 AM FUV, Provider: Dev Camp, Status: Pen, Time: 8:50 AM [facility] Work Phone: Start: 07-14-2022 FUV, Provider: Dev Camp, Status: Pen, Time: 9:10 AM FUV, Provider: Dev Camp, Status: Pen, Time: 9:10 AM [facility] DO Work Phone: Start: 06-24-2021 FUV, Provider: Dev Camp, Status: Pen, Time: 10:15 AM FUV, Provider: Dev Camp, Status: Alon, Time: 10:15 AM [facility] 250 DO Work Phone: Start: 1960 DTaP/Tdap/Td Vaccine s (1 - Tdap) DTaP/Tdap/Td Vaccines (1 - Tdap) [facility] Start: 1957 Urine screening for protein Diabetes: Urine Protein Screening [facility] Start: 1948 Diabetic foot examination Diabetes: Foot Exam [facility] Start: 1948 Glaucoma screening Diabetes: R etinopathy Screening [facility] Start: 1938 Hemoglobin A1c measurement Diabetes: Hemoglobin A1C [facility] Start: 1938 Lipid panel Lipid Panel [facility] Start: 1938 Medicare Annual Wellness Visit Medicare Annual Wellness Visit (AWV) [facility] HIV 1+2 Ab+HIV1 p24 Ag [Presence] in Serum or Plasma by Immunoassay [facility] Immunizations Immunization Date Immunization Notes Care Provider Fa cili 04-03-2022 Moderna COVID-19 Biv al Booster 50 MCG/0.5ML Intramuscular Suspension Gabriel Bello Work Phone: [facility] 250 DO Work Phone: 03-10-2022 Fluad Quadrivalent 0 .5 ML Intramuscular Prefilled Syringe Gabriel Bello Work Phone: [facility] 250 DO Work Phone: 12-19-2021 Moderna COVID-19 Vac cine 100 MCG/0.5ML Intramuscular Suspension Gabriel Bello Work Phone: [facility] 250 DO Work Phone: 03-20-2021 Moderna COVID-19 Vac cine 100 MCG/0.5ML Intramuscular Suspension Gabriel Bello Work Phone: [facility] 03-12-2021 influenza, high dose seasonal, preservative-free Gabriel Bello Work Phone: [facility] DO Work Phone: 02-26-2021 Fluzone High-Dose Quadrivalent 0.7 ML Intramuscular Suspension Prefilled Syringe Gabriel Bello Work Phone: [facility] DO Work Phone: 07-12-2020 COVID-19 mRNA-1273 (Moderna) [facility] 06-15-2020 COVID-19 mRNA-1273 (Moderna) [facility] 03-15-2020 Fluad Quadrivalent 0 .5 ML Intramuscular Prefilled Syringe [facility]l Bello [facility] DO Work Phone: 02-24-2020 influenza, high dose seasonal, preservative-free Gabriel Bello Work Phone: [facility] DO Work Phone: 03-11-2019 zoster vaccine recombinant Gabriel Bello Work Phone: [facility] 250 DO Work Phone: 03-01-2019 influenza, high dose seasonal, preservative-free Gabriel A Ace Work Phone: [facility] DO Work Phone: 02-21-2019 influenza, high dose seasonal, preservative-free Gabriel A Ace Work Phone: [facility] DO Work Phone: 12-22-2018 zoster vaccine recombinant Gabriel Bello Work Phone: [facility] DO Work Phone: 02-25-2018 influenza, high dose seasonal, preservative-free Gabriel A Ace Work Phone: [address] [address] DO Work Phone: 03-16-2017 influenza, high dose seasonal, preservative-free Gabriel Bello Work Phone: [address] [address] DO Work Phone: 05-24-2016 pneumococcal conjuga te vaccine, 13 valent Gabriel Bello Work Phone: [facility] 03-22-2015 influenza, high dose seasonal, preservative-free Gabriel Bello Work Phone: [address] [place] [address] DO Work Phone: 05-24-2012 pneumococcal polysaccharide vaccine, 23 valent Gabriel Bello Work Phone: [facility] 05-31-2009 novel influenza-H1N1 -09, preservative-free, injectable Gabriel Bello Work Phone: [address] [address] DO Work Phone: Payers Date Payer Category Payer Medicare [id number] 2022 Self-pay [id number] 1959 Private Health Insurance 101 [id number] 1938 Unknown [id number] 2.16. [id number] 1938 Unknown [id number] 2.16.84 0.1.637746.3.579.2.593 1938 Unknown [id number] 2.16.84 0.1.396051.3.579.2.593 1938 Unknown [id number] 2.16.84 0.1.018264.3.579.2.593 1938 Unknown [id number] 2.16.84 0.1.810333.3.579.2.593 1938 Unknown [id number] 2.16.84 0.1.427319.3.579.2.593 1938 Unknown [id number] 2.16.8 40.1.144082.3.579.2.1244 1938 Unknown [id number] 2.16.84 0.1.251084.3.579.2.1259 1938 Unknown [id number] 2.16.84 0.1.806896.3.579.2.1259 1938 Unknown [id number] 2.16.84 0.1.868632.3.579.2.1259 1938 Unknown [id number] 2.16.84 0.1.910992.3.579.2.1259 1938 Unknown [id number] 2.16.84 0.1.321561.3.579.2.1259 1938 Unknown [id number] 2.16.840 .1.376937.3.579.2.1259 1938 Unknown [id number] 2.16.840 .1.771509.3.579.2.1259 1938 Unknown [id number] 2.16.840 .1.175046.3.579.2.1259 Medicare Medicare [id number] Private Health Insurance Self Pay [facility] [id number] Unknown [employer] Unknown [id number] 2.16.8 40.1.014985.3.579.2.531 Unknown [id number] 2.16.8 40.1.636269.3.579.2.531 Unknown [id number] 2.16.8 40.1.115989.3.579.2.531 Social History Date Type Detail Facility Tobacco smoking status TNIS Unknown if ever smoked [facility] Start: 1940 Sex Assigned At Male F [facility] Start: 07-13-2023 Never a smoker Never a smoker -[facility] 250 DO Work Phone: Comment on above: 2-3 drinks a month; Start: 12-05-2021 End: 12-24-2022 Tobacco smoking status NHIS Ex-smoker (finding) [facility] Start: 07-13-2023 Sex Assigned At N [facility] [employer] Other End: 05-24-1989 History of tobacco use Current smoker [facility] Work Phone: End: 05-24-1989 History of tobacco use Cigarette Smoker [facility] Work Phone: Start: 07-13-2023 Tobacco use and exposure Smokeless tobacco non-user [facility] Work Phone: Start: 07-13-2023 Alcohol intake Lifetime non-d joe (finding) [facility] Work Phone: Start: 1940 Sex Assigned At Not on file U [facility] Work Phone: Start: 07-03-2023 End: 07-13-2023 Exposure to SARS-CoV-2 (event) Not sure [facility] Goals Date Patient Goal Desired Activity [...] by mouth once daily., Disp: , Rfl: [id number] (Creon) 24,000-76,000 -120,000 unit capsule, Take 1 [...] Attestation By signing my name below, I, Rk Nascimento LPN attest that this documentation has been prepared [...] discussion and plan. documented in this encounter [facility] Work Phone: Instructions 07-13-2023 Patient Instructions [...] of your visit. documented in this encounter [facility] Work Phone: Evaluation note 11-17-2022 Note Date & Type Note Facility 11-17-2022 Evaluation note Encounter Date Diagnosis Assessment Notes Oct, Change in bowel habits (ICD-10 - R19.4) Oct, Diverticulosis (ICD-10 - K57.90) Oct, IBS (irritable bowel syndrome) (ICD-10 - K58.9) Oct, Pancreatic insufficiency (ICD-10 - K86.89) [facility] [employer] Other History of Present illness Narrative 07-14-2022 [...] necessary and we suggest follow-up next year -[facility] 250 DO Work Phone: Evaluation note Note Date & Type Note Facility Evaluation note No assessment information [facility] Work Phone: Evaluation note Note Date & Type Note Facility Evaluation note No Information [facility] [employer] Other Evaluation note Note Date & Type Note Facility Evaluation note Diagnosis Benign essential hypertension- Primary Essential hypertension, benign Mixed hyperlipidemia Paroxysmal atrial fibrillation (CMS/HCC) Atrial fibrillation Former smoker Personal history of tobacco use, presenting hazards to health documented in this encounter [facility] Work Phone: History general Narrative - [...] History Right cataract surge ry per in [place], [place]. 10-28-17 Surgical History Mohs repair / left upper lip Hospitalization History see above [employer] Other History of Present illness Narrative Note [...] suggest continued therapy as before without change. -[facility] [facility] DO Work Phone: Advance Directives No [...] Procedures ECG 12 Lead Dev Camp MD [address] [place] [address], [place] [phone] Referral ID Status Reason Start Date Expiration Date V isits Requested Visits Authorized [id number] Authorized 07/13/2023 07/12/2024 1 1 Specialty Diagnoses / Procedures Referred By Contac t Referred To Contact Cardiology Diagnoses Paroxysmal atrial fibrillation (CMS/HCC) Procedures Follow Up In Cardiology Dev Camp MD [address] [place] [address], [place] [phone] Dev Camp MD [address] [place] [address], [place] [phone] Referral ID Status Reason Start Date Expiration Date V isits Requested Visits Authorized [id number] Authorized 07/13/2023 07/12/2024 1 1 Additional Source Comments Care Teams (unrecognized sec tion and content) Team Status: Inactive Member Role Status Dates Gabriel Bello , DO Primary Care Provider Active Shonna Sim , DO Family Provider Active Juan Ventura , DO Attending Provider Active Team Status: Active Member Role Status Dates Shonna Sim , DO Family Provider Active Gabriel Bello , DO Primary Care Provider Active Team Status: Inactive Member Role Status Dates Gabriel Bello DO Primary Care Provider Active Shonna Sim DO Family Provider Active Jj Garcia MD Attending Provider Active Band Edger Relationship Specialty Start Date End Date Gabriel Bello DO [address] [place] [address] PCP - General 05/24/99 Team Status: Inactive [...] section and content) DATE CREATED AUTHOR 07/15/2022 [facility] DATE CREATED AUTHOR AUTHOR'S ORGANIZ ATION 07/15/2022 [employer] DATE CREATED AUTHOR AUTHOR'S ORGANIZ ATION 09/10/2022 [facility] DATE CREATED AUTHOR AUTHOR'S ORGANIZ ATION 07/14/2023 [facility] DATE CREATED AUTHOR AUTHOR'S ORGANIZ ATION 09/18/2023 [facility] DATE CREATED AUTHOR AUTHOR'S ORGANIZ ATION 11/15/2023 [facility] EPIC REASON FOR VISIT (unrecogniz ed section and content) Reason Comments Annual Exam Specialty Diagnoses / Procedures Referred By Contac t Referred To Contact Diagnoses Paroxysmal atrial fibrillation (CMS/HCC) Procedures ECG 12 Lead Dev Camp MD [address] [facility] [address] [place] [address] Referral ID Status Reason Start Date Expiration Date V isits Requested Visits Authorized [id number] Authorized 07/13/2023 07/12/2024 1 1 FOR RECORDS [...] BE BASED ON THE PRIMARY CLINICAL RECORDS. [facility], [facility]. provides no warranty or guarantee of the accuracy or completeness of information in this document.
[2023-11-29 08:29] LABS: Basophils Absolute Auto 0.1 10^3/uL (0.0-0.1); Basophils Percent Auto 0.8 % (0.2-2.0); Eosinophils Absolute Auto 0.3 10^3/uL (0.0-0.7); Eosinophils Percent Auto 2.9 % (0.9-7.0); Hematocrit 36.8 % (42.0-54.0); Hemoglobin 11.8 g/dL (14.0-18.0); Immature Granulocytes Abs Auto 0.05 10^3/uL (0.00-0.03); Immature Granulocytes Pct Auto 0.6 % (0.0-0.5); Lymphocytes Absolute Auto 2.4 10^3/uL (1.2-3.8); Lymphocytes Percent Auto 26.2 % (20.5-60.0); Mean Corpuscular HGB Conc 32.1 g/dL (29.9-35.2); Mean Corpuscular Hemoglobin 30.2 pg (25.9-34.0); Mean Corpuscular Volume 94.1 fL (80.0-94.0); Mean Platelet Volume 10.5 fL (9.5-13.5); Monocytes Absolute Auto 0.6 10^3/uL (0.3-0.8); Monocytes Percent Auto 6.3 % (1.7-12.0); Neutrophils Absolute Auto 5.7 10^3/uL (1.4-6.5); Neutrophils Percent Auto 63.2 % (43.0-75.0); Platelet Count 175 10^3/uL (150-450); Red Blood Count 3.91 10^6/uL (4.70-6.10); Red Cell Distribution Width 13.4 % (11.0-15.0)
[2023-11-29 09:22] LABS: Alanine Aminotransferase 31 U/L (16-63); Albumin Globulin Ratio 1.1; Albumin Level 3.3 g/dL (3.4-5.0); Alkaline Phosphatase 91 U/L (46-116); Anion Gap 13.5; Aspartate Amino Transferase 25 U/L (15-37); BUN Creatinine Ratio 17.7; Bilirubin Total 0.7 mg/dL (0.2-1.0); Calcium 8.4 mg/dL (8.5-10.1); Carbon Dioxide 26.4 mmol/L (21.0-32.0); Chloride 108 mmol/L (98-107); Estimated GFR (African America >60 (>=60); Estimated GFR (Non-African Ame 55 (>=60); Glucose 143 mg/dL (74-106); Potassium 3.9 mmol/L (3.5-5.1); Sodium 144 mmol/L (136-145); Total Protein 6.3 g/dL (6.4-8.2)
[2023-11-29 10:04] LABS: Prostate Specific Antigen Dx 0.32 ng/mL (<=4.00)
[2023-11-30 04:07] LABS: Testosterone <3 ng/dL (264-916)
== END 2023-11-29 07:49 | disposition home or self-care (01) ==
LOC: LAB 07:49
PROVIDERS: PCP Internal Medicine
DX: C61 Malignant neoplasm of prostate (principal); M81.8 Other osteoporosis without current pathological fracture
CPT/HCPCS: 36415; 80053; 82306; 84153; 84403; 85025

== ENCOUNTER 2023-12-13 07:24 | Outpatient (OUT) | payer MEDICARE, SELFPAY ==
--- OUTSIDE RECORDS SUMMARY | 2023-12-13 07:27 | XMS_ITS | CCD ---
Author Organization [facility] Inform ion Partnership [facility] Care Team Providers Care 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 Name Role Phone Gabriel Bello Primary Care Provider Ryan Negron Attending Provider Gabriel Bello Unavailable Unavailable Unavailable DO Gabriel Bello Primary Care Provider DO Juan Ventura Attending Provider [phone] Dr. Gabriel Bello Abhilash Primary Care Unavai [...] Consulting Unavailable ACE, DR RIOS Admitting Unavailable ACE, DR RIOS Attending Unavailable ACE, DR RIOS Consulting Unavailable DR GABRIEL BELLO Primary Care Unavailable Jj Garcia Unavailable DO Gabriel Bello Primary Care Provider MD Jj Garcia Attending Provider [phone] Gabriel Bello DO Primary Care Provider DEV [...] Translations: [Sulfa Drugs] Allergy to drug (finding) [place] [address] DO Work Phone: (5 sources) Sulfonamides (Antibiotic); Translations: [SULFA (SULFONAMIDE ANTIBIOTICS)] Allergy to substance 2 [facility] (1 source) Sulfonamides (Antibiotic) Drug allergy (disorder) [facility] (2 sources) Substance with sulfonamide structure and antibacterial mechanism of action (substance) Drug allergy Unknown [facility] xTurion Other Medications Current Medications Medication Drug Class(es) Dates Sig (Normalized) Sig (Original) amylase 674712 unt / lipase 10201 unt / protease 97264 unt delayed release oral capsule (3 sources) Start: 11-17-2022 take 1 capsule by mouth three times daily at mealtime wdgtlv-ztzpdmyh-xm ylase (Creon) 24,000-76,000 -120,000 unit capsule Take 1 capsule by mouth 3 times a day with meals. 0 11/17/2022 Active Start: 11-17-2022 Creon 65257-97 000 UNIT 1 with each meal Orally [...] December 05, 2021 12:00am polyethylene glycol 3350 409581 mg / potassium chloride 2970 mg / sodium bicarbonate 6740 mg / sodium chloride 5860 mg / sodium sulfate 50599 mg powder for oral solution (2 sources) [...] mouth see administration instructions. 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; Translations: [OTH CORRECTION CURRENT DRUG THERAPY] Onset: 11-06-2021 Episodic Other [...] sb-mton 09-13-2023 PET psma initial tx sb-mt [place] [address] Nuclear Medicine Report Signed Patient: Dev Walsh MR#: [id number] 906 : 1940 Acct:[id number] Age/Sex: 83 / M ADM Date: 09/13/23 Loc: Room: Type: [facility] Attending Dr: NON STAFF Copies to: [...] Jordan Story M.D.09/13/2023 3:20 PM Dictation Location: [place] [address] Transcribed By: [facility] 09/13/23 1520 Dictated By: Jordan Story II, MD 09/13/23 1515 Signed By: 09/13/23 1520 Normal [facility] ECG 12 Leadon 07-13-2023 Sinus rhythm with frequent PVCs Otherwise normal EKG QTc 444 ms [facility] Work Phone: Joni 12-24-2022 L Specimen: [id number] Received: 12/24/22 Status: DEONDRE Lewis Num: [id number] Spec Type: Surgical Subm Dr: Jj Garcia MD Tissues: A Colon Biopsy (RANDOM COLON) B Colon Biopsy (ASCENDING POLYP) Procedures: HE/4, Gross/Micro L4/2 Age/ Patient Sex Location Account Attending Physician Dev Walsh/Jed [id number] Jj Garcia MD SPEC NUM: [id number] RECD: 12/24/22 STATUS: DEONDRE LEWIS NUM: [id number] JARRET: 12/24/22- [facility] DR: Jj Garcia MD ENTERED: 12/24/22 [...] submitted in one cassette labeled B1. Specimen: [id number] Received: 12/24/22 Status: DEONDRE Joshua Num: [id number] Spec Type: Surgical Subm Dr: Jj Garcia MD Tissues: A Colon Biopsy (RANDOM COLON) B Colon Biopsy (ASCENDING POLYP) Procedures: Lizett VASQUEZ/Saurabh L4/2 Patient: Dev Walsh [id number] (Continued) Specimen: [id number] Received: 12/24/22 (Continued) Signed (signature on file) Natan Davidson MD 12/29/22 1658 Specimen: [id number] Received: 12/24/22 Status: DEONDRE Lewis Num: [id number] Spec Type: Surgical Subm Dr: Jj Garcia MD Tissues: A Colon Biopsy (RANDOM COLON) B Colon Biopsy (ASCENDING POLYP) Procedures: Lizett VASQUEZ/Saurabh L4/2 Patient: NicoDev Brendon [id number] (Continued) Specimen: [id number] Received: 12/24/22 (Continued) Microscopic Description A. Two H E slides reviewed. The microscopic examination confirms the diagnosis. B. Two H E slides reviewed. The microscopic examination confirms the diagnosis. CPT Codes 27705g5 Specimen: [id number] Received: 12/24/22 Status: DEONDRE Lewis Num: [id number] Spec Type: Surgical Subm Dr: Jj Garcia MD Tissues: A Colon Biopsy (RANDOM COLON) B Colon Biopsy (ASCENDING POLYP) Procedures: Lizett VASQUEZ/Saurabh L4/2 Patient: Dev Walsh [id number] (Continued) Signed (signature on file) Natan Davidson MD 12/29/22 5370 Normal [facility] Blood Urea Nitrogenon 2022 Urea nitrogen [Mass/Vol] 31 mg/dL High 7-25 [facility] Comment on above: Order Comment: Reaso n for Exam Change in bowel habits Performed By: #### T SH3, BUN, CREAT #### [address] C reactive protein [Mass/vol ume] in Serum or PlasmaOrdered By: Jj Garcia on 11-26-2022 CRP [Mass/Vol] < 0.5 mg/dL 0.0-0.5 [facility] C-Reactive Proteinon 023 CRP [Mass/Vol] mg/L Normal 0.0-0.5 [facility] Comment on above: Order Comment: Reaso n for Exam Change in bowel habits Result Comment: PERF ORMED BY: [place] [address] PATHOLOGIST FIRST AID TEACHER WILMA MANTILLA M.D. Performed By: #### C RP, ESR #### [address] #### HIV SCREEN #### [facility] , CT abdomen pelvis w conon CT abdomen pelvis w con [facility] [place] [address] [place] [address] CT Scan Report Signed Patient: Dev Walsh MR#: [id number] 906 : 1940 Acct:[id number] Age/Sex: 82 / M ADM Date: 11/26/22 Loc: CT Room: Type: [facility] Attending Dr: Jj Garcia MD Copies [...] Mandujano Jr., D.OCassidy11/26/2022 7:19 PM Dictation Location: [place] [address] Transcribed By: [facility] 11/26/221918 Dictated By: Jered Mandujano Jr, DO 11/26/221906 Signed By: 11/26/221918 Normal [facility] Creatinineon 11-26-2022 Creatinine [Mass/Vol] 1.55 mg/dL High 0.70-1.30 [facility] Comment on above: Order Comment: Reaso n for Exam Change in bowel habits Performed By: #### T SH3, BUN, CREAT #### [facility] [address] GFR/1.73 sq M.predicted MDRD (S/P/Bld) [Vol rate/Area] 43.863 mL/min/{1.73_m2} Normal [facility] Comment on above: Order Comment: Reaso n for Exam Change in bowel habits Performed By: #### T SH3, BUN, CREAT #### [facility] [address] [place] [id number] [facility] Creatinine [Mass/volume] in Serum or PlasmaOrdered By: Gabriel Bello on 11-26-2022 Creatinine [Mass/Vol] 1.55 mg/dL 0.70-1.30 [facility] Erythrocyte Sedimentation Ra juli 11-26-2022 ESR (Bld) [Velocity] 18 mm/h Normal 0-19 [facility] Comment on above: Order Comment: Reaso n for Exam Change in bowel habits Result Comment: PERF ORMED BY: [place] [address] PATHOLOGIST [employer] TEACHER WILMA MANTILLA M.D. Performed By: #### C RP, ESR #### [address] #### HIV SCREEN #### [facility] , Erythrocyte sedimentation ra te by Photometric methodOrdered By: Jj Garcia on 11-26-2022 ESR Photometric method (Bld) [Velocity] 18 mm/hr 0-19 [facility] HIV 1/O/2 Antigen/Antibodyon 11-26-2022 HIV Screen 4th Generation Non-Reactive Normal Non Reactive [facility] Comment on above: Order Comment: Reaso n for Exam Change in bowel habits Result Comment: HIV Negative HIV-1/HIV-2 antibodies and HIV-1 p24 antigen were NOT detected. There is no laboratory evidence of HIV infection. Performed at: [facility] [id number] After School Program Assistant: Miguel Cullen PhD, Phone: [phone] PERFORMED BY: [place] [address] PATHOLOGIST [employer] A[employer] TEACHER WILMA MANTILLA M.D. Performed By: #### C RP, ESR #### [address] #### HIV SCREEN #### [facility] , No Panel InformationOrdered By: Gabriel Bello on 11-26-2022 Estimated GFR (CKD-EPI) 43.863 mL/Min [facility] Creatinine Clearance (Chem N/A [facility] Thyroid Stimulating Hormoneo n 11-26-2022 TSH Qn 1.23 m[IU]/L Normal 0.45-5.[address] [facility] Comment on above: Order Comment: Reaso n for Exam Change in bowel habits Result Comment: PERF ORMED BY: [place] [address] PATHOLOGIST [employer] A[employer] TEACHER WILMA MANTILLA M.D. Performed By: #### T SH3, BUN, CREAT #### [facility] [address] Thyrotropin [Units/volume] i n Serum or PlasmaOrdered By: Jj Garcia on 11-26-2022 TSH Qn 1.23 m[IU]/L 0.45-5.33 [facility] Urea nitrogen [Mass/volume] in Serum or PlasmaOrdered By: Gabriel Bello on 11-26-2022 Urea nitrogen [Mass/Vol] 31 mg/dL 7 [facility] PANCREATIC ELASTASE FECALon 09-08-2022 Pancreatic Elastase, Fecal 86 ug Elast./g Critically low >200 [facility] Comment on above: Result Comment: Re sults verified by repeat testing Severe Pancreatic Insufficiency: <100 Moderate Pancreatic Insufficiency: 100 - 200 Normal: >200 Performed By: #### L IPID, TSH, CMP #### [facility] [address] [place] [address] Dr. Leesa Urbina CELIAC ANTIBODIES PROFILEon 09-04-2022 Deamidated Gliadin Abs, IgA 8 units Normal 0-19 [facility] Comment on above: Result Comment: Nega tive 0 - 19 Weak Positive 20 - 30 Moderate to Strong Positive >30 Performed By: #### C ELIACP #### [facility] [address] [place] [address] Dr. Leesa Urbina Deamidated Gliadin Abs, IgG 4 units Normal 0-19 [facility] Comment on above: Result Comment: Nega tive 0 - 19 Weak Positive 20 - 30 Moderate to Strong Positive >30 Performed By: #### C ELIACP #### [facility] [address] [place] [address] [address] Leesa Urbina Endomysial Antibody IgA Negative Normal Negative [facility] Comment on above: Performed By: #### C ELIACP #### [facility] [address] [place] [address] [address] Leesa Urbina Immunoglobulin A, Qn, Serum 143 mg/dL Normal 61-437 [facility] Comment on above: Performed By: #### C ELIACP #### [facility] [address] [place] [address] Dr. Leesa Urbina t-Transglutaminase (tTG) IgA <2 Normal 0-3 [facility] Comment on above: Result Comment: Nega tive 0 - 3 Weak Positive 4 - 10 Positive >10 . Tissue Transglutaminase (tTG) has been identified as the endomysial antigen. Studies have demonstr- ated that endomysial IgA antibodies have over 99% specificity for gluten sensitive enteropathy. Performed By: #### C ELIACP #### [facility] [address] [place] [address] Dr. Leesa Urbina t-Transglutaminase (tTG) IgG 6 U/mL Critically high 0-5 [facility] Comment on above: Result Comment: Nega tive 0 - 5 Weak Positive 6 - 9 Positive >9 Performed By: #### C ELIACP #### [facility] [address] [place] [address] Dr. Leesa Urbina CBC AUTO DIFFon 09-03-2022 BASO # 0.1 103/ul Normal 0.0-0.1 [facility] Comment on above: Performed By: #### L IPID, TSH, CMP #### [facility] [address] [place] [address] Dr. Leesa Urbina Basophils/100 WBC (Bld) 1.1 % Normal 0.2-2.0 [facility] Comment on above: Performed By: #### L IPID, TSH, CMP #### [facility] [address] [place] [address] Dr. Leesa Urbina EO # 0.6 103/ul Normal 0.0-0.7 [facility] Comment on above: Performed By: #### L IPID, TSH, CMP #### [facility] [address] [place] [address] Dr. Leesa Urbina Eosinophils/100 WBC (Bld) 7.9 % Critically high 0.9-7.0 [facility] Comment on above: Performed By: #### L IPID, TSH, CMP #### [facility] [address] [place] [address] Dr. Leesa Urbina Erythrocyte distribution width (RBC) [Ratio] 13.6 % Normal 11.0-15.0 [facility] Comment on above: Performed By: #### L IPID, TSH, CMP #### [facility] [address] [place] [address] Dr. Leesa Urbina Hematocrit (Bld) [Volume fraction] 34.4 % Critically low 42.0-54.0 [facility] Comment on above: Performed By: #### L IPID, TSH, CMP #### [facility] [address] [place] [address] Dr. Leesa Urbina Hemoglobin (Bld) [Mass/Vol] 11.4 g/dL Critically low 14.0-18.0 [facility] Comment on above: Performed By: #### L IPID, TSH, CMP #### [facility] [address] [place] [address] Dr. Leesa Urbina IG # 0.02 10e3/ul Normal 0.00-0.03 [facility] Comment on above: Performed By: #### L IPID, TSH, CMP #### [facility] [address] [place] [address] Dr. Leesa Urbina IG % 0.3 % Normal 0.0-0.5 [facility] Comment on above: Performed By: #### L IPID, TSH, CMP #### [facility] [address] [place] [address] Dr. Leesa Urbina LYMPH # 2.1 103/ul Normal 1.2-3.8 [facility] Comment on above: Performed By: #### L IPID, TSH, CMP #### [facility] [address] [place] [address] Dr. Leesa Urbina Lymphocytes/100 WBC (Bld) 28.1 % Normal 20.5-60.0 [facility] Comment on above: Performed By: #### L IPID, TSH, CMP #### [facility] [address] [place] [address] Dr. Leesa Urbina MANUAL DIFF REQ NO Normal [facility] Comment on above: Performed By: #### L IPID, TSH, CMP #### [facility] [address] [place] [address] Dr. Leesa Urbina MCH (RBC) [Entitic mass] 31.1 pg Normal 25.9-34.0 [facility] Comment on above: Performed By: #### L IPID, TSH, CMP #### [facility] [address] [place] [address] Dr. Leesa Urbina MCHC (RBC) [Mass/Vol] 33.1 g/dL Normal 29.9-35.2 [facility] Comment on above: Performed By: #### L IPID, TSH, CMP #### [facility] [address] [place] [address] Dr. Leesa Urbina MCV (RBC) [Entitic vol] 93.7 fL Normal 80.0-94.0 [facility] Comment on above: Performed By: #### L IPID, TSH, CMP #### [facility] [address] [place] [address] Dr. Leesa Urbina MONO # 0.4 103/ul Normal 0.3-0.8 [facility] Comment on above: Performed By: #### L IPID, TSH, CMP #### [facility] [address] [place] [address] Dr. Leesa Urbina Monocytes/100 WBC (Bld) 6.0 % Normal 1.7-12.0 [facility] Comment on above: Performed By: #### L IPID, TSH, CMP #### [facility] [address] [place] [address] Dr. Leesa Urbina NEUT # 4.2 103/ul Normal 1.4-6.5 [facility] Comment on above: Performed By: #### L IPID, TSH, CMP #### [facility] [address] [place] [address] Dr. Leesa Urbina Neutrophils/100 WBC (Bld) 56.6 % Normal 43.0-75.0 [facility] Comment on above: Performed By: #### L IPID, TSH, CMP #### [facility] [address] [place] [address] Dr. Leesa Urbina Platelet mean volume (Bld) [Entitic vol] 10.1 fL Normal 9.5-13.5 [facility] Comment on above: Performed By: #### L IPID, TSH, CMP #### [facility] [address] [place] [address] [address] Leesa Urbina PLT 195 103/ul Normal 150-450 [facility] Comment on above: Performed By: #### L IPID, TSH, CMP #### [facility] [address] [place] [address] [address] Leesa Urbina RBC 3.67 106/ul Critically low 4.70-6.10 [facility] Comment on above: Performed By: #### L IPID, TSH, CMP #### [facility] [address] [place] [address] Dr. Leesa Urbina WBC 7.3 103/ul Normal 4.0-11.0 [facility] Comment on above: Performed By: #### L IPID, TSH, CMP #### [facility] [address] [place] [address] Dr. Leesa Urbina FERRITINon 09-03-2022 Ferritin [Mass/Vol] 44.0 ng/mL Normal 26.0-388.0 [facility] Comment on above: Performed By: #### F ERR, FETIBC #### [facility] [address] [place] [address] Dr. Leesa Urbina IRON AND TIBCon 09-03-2022 % SATURATION 23.5 % Normal [facility] Comment on above: Performed By: #### F ERR, FETIBC #### [facility] [address] [place] [address] Dr. Leesa Urbina Iron [Mass/Vol] 69.0 ug/dL Normal 65.0-175.0 [facility] Comment on above: Performed By: #### F ERR, FETIBC #### [facility] [address] [place] [address] Dr. Leesa Urbina TIBC DIRECT 294.0 ug/dL Normal 250.0-450.0 [facility] Comment on above: Performed By: #### F ERR, FETIBC #### [facility] [address] [place] [address] [address] Leesa Urbina Office Visit (Cardiology)on 07-14-2022 Follow-up visit Diagnoses/Problems Assessed Anticoagulated (V58.61) (Z79.01) Benign essential hypertension (401.1) (I10) Hyperlipidemia (272.4) (E78.5) Paroxysmal atrial fibrillation (427.31) (I48.0) Diabetes mellitus (250.00) (E11.9) Body mass index (BMI) of 24.0 to 24.9 in adult (V85.1) (Z68.24) Never a smoker Orders SocHx: Never a smoker Tobacco Use Screening; Status:Complete; Done: [id number] Patient Instructions Please bring all medicines, vitamins, [...] negative for complaint. Vitals Vital Signs Recorded: [id number] 09:08AM Heart Rate68, L Radial Sruygjin357, LUE, Sitting Jupobipny74, LUE, Sitting Height5 ft 11 in Yjzgdr725 lb BMI Zisyuswzkh88.13 kg/m2 BSA Calculated1.98 Tobacco Useb) No PHQ-2 [...] Screening.on 023 Adult depression screening assessment No [facility] 250 DO Work Phone: Fall risk assessment a) No falls within the last year [facility]ya 250 DO Work Phone: Tobacco use status [facility]PH[facility] b) No [facility] 250 DO Work Phone: CBC AUTO DIFFon 05-06-2022 BASO # 0.1 103/ul Normal 0.0-0.1 [facility] Comment on above: Performed By: #### C BC #### [facility] [address] [place] [address] Dr. Leesa Urbina Basophils/100 WBC (Bld) 1.4 % Normal 0.2-2.0 [facility] Comment on above: Performed By: #### C BC #### [facility] [address] [place] [address] Dr. Leesa Urbina EO # 0.4 103/ul Normal 0.0-0.7 [facility] Comment on above: Performed By: #### C BC #### [facility] [address] [place] [address] Dr. Leesa Urbina Eosinophils/100 WBC (Bld) 5.4 % Normal 0.9-7.0 [facility] Comment on above: Performed By: #### C BC #### [facility] [address] [place] [address] Dr. Leesa Urbina Erythrocyte distribution width (RBC) [Ratio] 13.3 % Normal 11.0-15.0 [facility] Comment on above: Performed By: #### C BC #### [facility] [address] [place] [address] Dr. Leesa Urbina Hematocrit (Bld) [Volume fraction] 35.8 % Critically low 42.0-54.0 [facility] Comment on above: Performed By: #### C BC #### [facility] [address] [place] [address] Dr. Leesa Urbina Hemoglobin (Bld) [Mass/Vol] 12.0 g/dL Critically low 14.0-18.0 [facility] Comment on above: Performed By: #### C BC #### [facility] [address] [place] [address] Dr. Leesa Urbina IG # 0.01 10e3/ul Normal 0.00-0.03 [facility] Comment on above: Performed By: #### C BC #### [facility] [address] [place] [address] Dr. Leesa Urbina IG % 0.2 % Normal 0.0-0.5 [facility] Comment on above: Performed By: #### C BC #### [facility] [address] [place] [address] Dr. Leesa Urbina LYMPH # 1.7 103/ul Normal 1.2-3.8 [facility] Comment on above: Performed By: #### C BC #### [facility] [address] [place] [address] Dr. Leesa Urbina Lymphocytes/100 WBC (Bld) 26.1 % Normal 20.5-60.0 [facility] Comment on above: Performed By: #### C BC #### [facility] [address] [place] [address] Dr. Leesa Urbina MANUAL DIFF REQ NO Normal [facility] Comment on above: Performed By: #### C BC #### [facility] [address] [place] [address] Dr. Leesa Urbina MCH (RBC) [Entitic mass] 31.0 pg Normal 25.9-34.0 [facility] Comment on above: Performed By: #### C BC #### [facility] [address] [place] [address] Dr. Leesa Urbina MCHC (RBC) [Mass/Vol] 33.5 g/dL Normal 29.9-35.2 [facility] Comment on above: Performed By: #### C BC #### [facility] [address] [place] [address] [address] Leesa Urbina MCV (RBC) [Entitic vol] 92.5 fL Normal 80.0-94.0 [facility] Comment on above: Performed By: #### C BC #### [facility] [address] [place] [address] [address] Leesa Urbina MONO # 0.4 103/ul Normal 0.3-0.8 [facility] Comment on above: Performed By: #### C BC #### [facility] [address] [place] [address] Dr. Leesa Urbina Monocytes/100 WBC (Bld) 6.5 % Normal 1.7-12.0 [facility] Comment on above: Performed By: #### C BC #### [facility] [address] [place] [address] Dr. Leesa Urbina NEUT # 4.0 103/ul Normal 1.4-6.5 [facility] Comment on above: Performed By: #### C BC #### [facility] [address] [place] [address] Dr. Leesa Urbina Neutrophils/100 WBC (Bld) 60.4 % Normal 43.0-75.0 [facility] Comment on above: Performed By: #### C BC #### [facility] [address] [place] [address] Dr. Leesa Urbina Platelet mean volume (Bld) [Entitic vol] 10.6 fL Normal 9.5-13.5 [facility] Comment on above: Performed By: #### C BC #### [facility] [address] [place] [address] Dr. Leesa Urbina PLT 185 103/ul Normal 150-450 [facility] Comment on above: Performed By: #### C BC #### [facility] [address] [place] [address] Dr. Leesa Urbina RBC 3.87 106/ul Critically low 4.70-6.10 [facility] Comment on above: Performed By: #### C BC #### [facility] [address] [place] [address] [address] Leesa Urbina WBC 6.6 103/ul Normal 4.0-11.0 [facility] Comment on above: Performed By: #### C BC #### [facility] [address] [address] [address] Leesa rUbina GLYCOHEMOGLOBIN A1Con 2021 ADA RECOMMENDATION SEE BELOW Normal [facility] Comment on above: Result Comment: ADA RECOMMENDED LIMIT 4.0 - 6.0 ADA THERAPEUTIC TARGET < 7.0 ACTION SUGGESTED > 7.0 Performed By: #### A 1C #### [facility] [address] [place] [address] Dr. Leesa Urbina Glucose [Mass/Vol] 151 mg/dL Normal [facility] Comment on above: Performed By: #### A 1C #### [facility] [address] [place] [address] Dr. Leesa Urbina HbA1c (Bld) [Mass fraction] 6.9 % Critically high 4.5-6.2 [facility] Comment on above: Performed By: #### A 1C #### [facility] [address] [place] [address] Dr. Leesa Urbina LIPID PROFILEon 05-06-2022 CHOL-HDL RATIO NORM SEE BELOW Normal [facility] Comment on above: Result Comment: 3.3 - 4.4 LOW RISK 4.4 - 7.1 AVERAGE RISK 7.1 - 11.0 MODERATE RISK >11.0 HIGH RISK Performed By: #### L IPID, TSH, CMP #### [facility] [address] [place] [address] Dr. Leesa Urbina Cholesterol [Mass/Vol] 136 mg/dL Normal <=200 [facility] Comment on above: Performed By: #### L IPID, TSH, CMP #### [facility] [address] [place] [address] Dr. Leesa Urbina Cholesterol in HDL [Mass/Vol] 62 mg/dL Critically high 40-60 [facility] Comment on above: Performed By: #### L IPID, TSH, CMP #### [facility] [address] [address] [address] Leesa Urbina Cholesterol in LDL [Mass/Vol] 53.0 mg/dL Normal [facility] Comment on above: Performed By: #### L IPID, TSH, CMP #### [facility] [address] [address] [address] Leesa Urbina Cholesterol.total/Chol esterol in HDL [Mass ratio] 2.2 {ratio} Normal [facility] Comment on above: Performed By: #### L IPID, TSH, CMP #### [facility] [address] [address] [address] Leesa Urbina HDL NORMAL > or = 60 mg/dl - LOW CARDIOVASCULAR RISK <40 mg/dl - HIGH CARDIOVASCULAR RISK Normal [facility] Comment on above: Performed By: #### L IPID, TSH, CMP #### [facility] [address] [place] [address] Dr. Leesa Urbina LDL CALC NORMAL SEE BELOW Normal [facility] Comment on above: Result Comment: <100 mg/dl OPTIMAL 100 - 129 mg/dl NEAR OR ABOVE OPTIMAL 130 - 159 mg/dl BORDERLINE HIGH 160 - 189 mg/dl HIGH >190 mg/dl VERY HIGH Performed By: #### L IPID, TSH, CMP #### [facility] [address] [address] [address] Leesa Urbina Triglyceride [Mass/Vol] 105 mg/dL Normal <=150 [facility] Comment on above: Performed By: #### L IPID, TSH, CMP #### [facility] [address] [place] [address] Dr. Leesa Ubrina VLDL CALC 21.0 mg/dL Normal [facility] Comment on above: Performed By: #### L IPID, TSH, CMP #### [facility] [address] [address] [address] Leesa Urbina PROF 14(COMP METB)on 022 Albumin [Mass/Vol] 3.4 g/dL Normal 3.4-5.0 [facility] Comment on above: Performed By: #### L IPID, TSH, CMP #### [facility] [address] [address] [address] Leesa Urbina Albumin/Globulin [Mass ratio] 1.1 {ratio} Normal [facility] Comment on above: Performed By: #### L IPID, TSH, CMP #### [facility] [address] [address] [address] Leesa Urbina ALP [Catalytic activity/Vol] 77 U/L Normal 46-116 [facility] Comment on above: Performed By: #### L IPID, TSH, CMP #### [facility] [address] [address] [address] Leesa Urbina ALT [Catalytic activity/Vol] 12 U/L Critically low 16-63 [facility] Comment on above: Performed By: #### L IPID, TSH, CMP #### [facility] [address] [address] [address] Leesa Urbina Anion gap [Moles/Vol] 12.7 mmol/L Normal [facility] Comment on above: Performed By: #### L IPID, TSH, CMP #### [facility] [address] [address] [address] Leesa Urbina AST [Catalytic activity/Vol] 19 U/L Normal 15-37 [facility] Comment on above: Performed By: #### L IPID, TSH, CMP #### [facility] [address] [address] [address] Leesa Urbina Bilirubin [Mass/Vol] 0.4 mg/dL Normal 0.2-1.0 [facility] Comment on above: Performed By: #### L IPID, TSH, CMP #### [facility] [address] [address] [address] Leesa Urbina Calcium [Mass/Vol] 8.5 mg/dL Normal 8.5-10.1 [facility] Comment on above: Performed By: #### L IPID, TSH, CMP #### [facility] [address] [address] [address] Leesa Urbina Chloride [Moles/Vol] 107 mmol/L Normal 98-107 [facility] Comment on above: Performed By: #### L IPID, TSH, CMP #### [facility] [address] [address] [address] Leesa Urbina CO2 [Moles/Vol] 27.4 mmol/L Normal 21.0-32.0 [facility] Comment on above: Performed By: #### L IPID, TSH, CMP #### [facility] [address] [place] [address] Dr. Leesa Urbina Creatinine [Mass/Vol] 1.06 mg/dL Normal 0.70-1.30 [facility] Comment on above: Performed By: #### L IPID, TSH, CMP #### [facility] [address] [place] [address] Dr. Leesa Urbina EGFR-AF [facility] LUCIAN >60 Normal >=60 [facility] Comment on above: Performed By: #### L IPID, TSH, CMP #### [facility] [address] [place] [address] Dr. Leesa Urbina EGFR-NON AF [facility] LUCI[facility] >60 Normal >=60 [facility] Comment on above: Performed By: #### L IPID, TSH, CMP #### [facility] [address] [place] [address] Dr. Leesa Urbina Globulin (S) [Mass/Vol] 3.1 g/dL Normal [facility] Comment on above: Performed By: #### L IPID, TSH, CMP #### [facility] [address] [place] [address] Dr. Leesa Urbina Glucose [Mass/Vol] 171 mg/dL Critically high 74-[address] [facility] Comment on above: Performed By: #### L IPID, TSH, CMP #### [facility] [address] [place] [address] Dr. Leesa Urbina Potassium [Moles/Vol] 4.1 mmol/L Normal 3.5-5.1 [facility] Comment on above: Performed By: #### L IPID, TSH, CMP #### [facility] [address] [place] [address] Dr. Leesa Urbina Protein [Mass/Vol] 6.5 g/dL Normal 6.4-8.2 [facility] Comment on above: Performed By: #### L IPID, TSH, CMP #### [facility] [address] [address] [address] Leesa Urbina Sodium [Moles/Vol] 143 mmol/L Normal 136-145 [facility] Comment on above: Performed By: #### L IPID, TSH, CMP #### [facility] [address] [address] [address] Leesa Urbina Urea nitrogen [Mass/Vol] 24.0 mg/dL Critically high 7.0-18.0 [facility] Comment on above: Performed By: #### L IPID, TSH, CMP #### [facility] [address] [address] [address] Leesa Urbina Urea nitrogen/Creatinine [Mass ratio] 22.6 mg/mg Normal [facility] Comment on above: Performed By: #### L IPID, TSH, CMP #### [facility] [address] [address] [address] Leesa Urbina Basophils Auto (Bld) [#/Vol] Ordered By: Juan Ventura on 12-05-2021 Basophils (Bld) [#/Vol] 0.1 10*3/uL 0.0-0.2 [facility] Basophils/100 WBC Auto (Bld) Ordered By: Juan Ventura on 12-05-2021 Basophils/100 WBC (Bld) 0.9 % [facility] Blood hemoglobin measurement (mass/volume)Ordered By: Juan Ventura on 12-05-2021 Hemoglobin (Bld) [Mass/Vol] 12.4 g/dL 13.0-17.0 [facility] Blood leukocytes automated c ount (number/volume)Ordered By: Juan Ventura on 12-05-2021 WBC (Bld) [#/Vol] 7.0 10*3/uL 4.5-11.0 [facility] COVID-19 Positive/NegativeOr dered By: Juan Ventura on 07-15-2022 SARS-CoV-2 (COVID-19) N gene RENETTA+probe Ql (Resp) Negative Negative [facility] Comment on above: Testing for SARS-CoV -2 by RT-PCR This test was developed and its performance characteristics determined by [employer] and validated at the [facility]. This test has not been FDA cleared [...] on 12-05-2021 Creatinine [Mass/Vol] 1.28 mg/dL 0.64-1.27 [facility] Eosinophils Auto (Bld) [#/Vo l]Ordered By: Juan Ventura on 12-05-2021 Eosinophils (Bld) [#/Vol] 0.1 10*3/uL 0.0-0.45 [facility] Eosinophils/100 WBC Auto (Bl d)Ordered By: Juan Ventura on 12-05-2021 Eosinophils/100 WBC (Bld) 2.1 % [facility] Erythrocyte distribution wid th Auto (RBC) [Ratio]Ordered By: Juan Ventura on 12-05-2021 Erythrocyte distribution width (RBC) [Ratio] 14.6 % 12.0-14.8 [facility] Estimated glomerular filtrat ion rate (GFR) non- AmericanOrdered By: Juan Ventura on 12-05-2021 GFR/1.73 sq M.predicted among non-blacks MDRD (S/P/Bld) [Vol rate/Area] 54 mL/Min [facility] Hematocrit Auto (Bld) [Volum e fraction]Ordered By: Juan Ventura on 12-05-2021 Hematocrit (Bld) [Volume fraction] 37.3 % 38.8-50.0 [facility] Laboratory - Hematology and Cell countsOrdered By: Juan Ventura on 12-05-2021 Nucleated RBC/100 WBC (Bld) [Ratio] 0.0 % 0-0.5 [facility] Lymphocytes Auto (Bld) [#/Vo l]Ordered By: Juan Ventura on 12-05-2021 Lymphocytes (Bld) [#/Vol] 1.4 10*3/uL 1.00-4.8 [facility] Lymphocytes/100 WBC Auto (Bl d)Ordered By: Juan Ventura on 12-05-2021 Lymphocytes/100 WBC (Bld) 19.8 % [facility] MCH Auto (RBC) [Entitic mass ]Ordered By: Juan Ventura on 12-05-2021 MCH (RBC) [Entitic mass] 30.8 pg 27.5-35.2 [facility] MCHC Auto (RBC) [Mass/Vol]Or dered By: Juan Ventura on 12-05-2021 MCHC (RBC) [Mass/Vol] 33.1 g/dL 32.5-35.6 [facility] MCV Auto (RBC) [Entitic vol] Ordered By: Juan Ventura on 12-05-2021 MCV (RBC) [Entitic vol] 93.1 fL 83.5-101 [facility] Monocytes Auto (Bld) [#/Vol] Ordered By: Juan Ventura on 12-05-2021 Monocytes (Bld) [#/Vol] 0.5 10*3/uL 0.0-0.8 [facility] Monocytes/100 WBC Auto (Bld) Ordered By: Juan Ventura on 12-05-2021 Monocytes/100 WBC (Bld) 7.3 % [facility] Neutrophils Auto (Bld) [#/Vo l]Ordered By: Juan Ventura on 12-05-2021 Neutrophils (Bld) [#/Vol] 4.9 10*3/uL 1.8-7.7 [facility] Neutrophils/100 WBC Auto (Bl d)Ordered By: Juan Ventura on 12-05-2021 Neutrophils/100 WBC (Bld) 69.9 % [facility] No Panel InformationOrdered By: Juan Ventura on 12-05-2021 Estimated GFR () > 60 mL/Min [facility] Comment on above: GFR estimated refere nce range: According to KDOQI guidelines, <60 ml/min/1.73m2 is sufficient to diagnose a patient with chronic kidney disease. Pharmacy Creatinine Clearance (Chem N/A [facility] Platelet mean volume Auto (B ld) [Entitic vol]Ordered By: Juan Ventura on 12-05-2021 Platelet mean volume (Bld) [Entitic vol] 8.9 fL 6.6-10.1 [facility] Platelets Auto (Bld) [#/Vol] Ordered By: Juan Ventura on 12-05-2021 Platelets (Bld) [#/Vol] 194 10*3/uL 150-450 [facility] RBC Auto (Bld) [#/Vol]Ordere d By: Juan Ventura on 12-05-2021 RBC (Bld) [#/Vol] 4.00 10*6/uL 3.90-5.60 [facility] Serum or plasma calcium fco urement (mass/volume)Ordered By: Juan Ventura on 12-05-2021 Calcium [Mass/Vol] 9.2 mg/dL 8.2-10.2 [facility] Serum or plasma chloride daniel surement (moles/volume)Ordered By: Juan Ventura on 12-05-2021 Chloride [Moles/Vol] 107 mmol/L 95-114 [facility] Serum or plasma glucose fco urement (mass/volume)Ordered By: Juan Ventura on 12-05-2021 Glucose [Mass/Vol] 117 mg/dL 70-100 [facility] Comment on above: ADA recommended refe rence range Random Glucose Reference Range is dependent on time and content of last meal. Glucose of more than 200 mg/dL in a nonstressed, ambulatory subject supports the diagnosis of Diabetes Mellitus. Serum or plasma potassium me asurement (moles/volume)Ordered By: Juan Ventura on 12-05-2021 Potassium [Moles/Vol] 4.6 mmol/L 3.5-5.1 [facility] Serum or plasma sodium measu rement (moles/volume)Ordered By: Juan Ventura on 12-05-2021 Sodium [Moles/Vol] 141 mmol/L 136-146 [facility] Serum or plasma total carbon dioxide measurement (moles/volume)Ordered By: Juan Ventura on 12-05-2021 CO2 [Moles/Vol] 26.2 mmol/L 22.0-30.0 [facility] Serum or plasma urea nitroge n measurement (mass/volume)Ordered By: Juan Ventura on 12-05-2021 Urea nitrogen [Mass/Vol] 23 mg/dL 9-23 [facility] CBC AUTO DIFFon 11-05-2021 BASO # 0.1 103/ul Normal 0.0-0.1 [facility] Comment on above: Performed By: #### C BC #### [facility] [address] [address] [address] Leesa Urbina Basophils/100 WBC (Bld) 0.8 % Normal 0.2-2.0 [facility] Comment on above: Performed By: #### C BC #### [facility] [address] [address] [address] Leesa Urbina EO # 0.4 103/ul Normal 0.0-0.7 [facility] Comment on above: Performed By: #### C BC #### [facility] [address] [address] [address] Leesa Urbina Eosinophils/100 WBC (Bld) 5.6 % Normal 0.9-7.0 [facility] Comment on above: Performed By: #### C BC #### [facility] [address] [address] [address] Leesa Urbina Erythrocyte distribution width (RBC) [Ratio] 13.4 % Normal 11.0-15.0 [facility] Comment on above: Performed By: #### C BC #### [facility] [address] [address] [address] Leesa Urbina Hematocrit (Bld) [Volume fraction] 36.1 % Critically low 42.0-54.0 [facility] Comment on above: Performed By: #### C BC #### [facility] [address] [place] [address] Dr. Leesa Urbina Hemoglobin (Bld) [Mass/Vol] 11.8 g/dL Critically low 14.0-18.0 [facility] Comment on above: Performed By: #### C BC #### [facility] [address] [place] [address] Dr. Leesa Urbina IG # 0.02 10e3/ul Normal 0.00-0.03 [facility] Comment on above: Performed By: #### C BC #### [facility] [address] [place] [address] Dr. Leesa Urbina IG % 0.3 % Normal 0.0-0.5 [facility] Comment on above: Performed By: #### C BC #### [facility] [address] [place] [address] Dr. Leesa Urbina LYMPH # 1.8 103/ul Normal 1.2-3.8 [facility] Comment on above: Performed By: #### C BC #### [facility] [address] [place] [address] Dr. Leesa Urbina Lymphocytes/100 WBC (Bld) 28.4 % Normal 20.5-60.0 [facility] Comment on above: Performed By: #### C BC #### [facility] [address] [place] [address] Dr. Leesa Urbina MANUAL DIFF REQ NO Normal [facility] Comment on above: Performed By: #### C BC #### [facility] [address] [place] [address] Dr. Leesa Urbina MCH (RBC) [Entitic mass] 30.7 pg Normal 25.9-34.0 [facility] Comment on above: Performed By: #### C BC #### [facility] [address] [address] [address] Leesa Urbina MCHC (RBC) [Mass/Vol] 32.7 g/dL Normal 29.9-35.2 [facility] Comment on above: Performed By: #### C BC #### [facility] [address] [address] [address] Leesa Urbina MCV (RBC) [Entitic vol] 94.0 fL Normal 80.0-94.0 [facility] Comment on above: Performed By: #### C BC #### [facility] [address] [place] [address] Dr. Leesa Urbina MONO # 0.5 103/ul Normal 0.3-0.8 [facility] Comment on above: Performed By: #### C BC #### [facility] [address] [place] [address] Dr. Leesa Urbina Monocytes/100 WBC (Bld) 8.1 % Normal 1.7-12.0 [facility] Comment on above: Performed By: #### C BC #### [facility] [address] [place] [address] Dr. Leesa Urbina NEUT # 3.5 103/ul Normal 1.4-6.5 [facility] Comment on above: Performed By: #### C BC #### [facility] [address] [place] [address] Dr. Leesa Urbina Neutrophils/100 WBC (Bld) 56.8 % Normal 43.0-75.0 [facility] Comment on above: Performed By: #### C BC #### [facility] [address] [place] [address] Dr. Leesa Urbina Platelet mean volume (Bld) [Entitic vol] 10.3 fL Normal 9.5-13.5 [facility] Comment on above: Performed By: #### C BC #### [facility] [address] [place] [address] Dr. Leesa Urbina PLT 179 103/ul Normal 150-450 [facility] Comment on above: Performed By: #### C BC #### [facility] [address] [address] [address] Leesa Urbina RBC 3.84 106/ul Critically low 4.70-6.10 [facility] Comment on above: Performed By: #### C BC #### [facility] [address] [address] [address] Leesa Urbina WBC 6.2 103/ul Normal 4.0-11.0 [facility] Comment on above: Performed By: #### C BC #### [facility] [address] [address] [address] Leesa Urbina GLYCOHEMOGLOBIN A1Con 2021 ADA RECOMMENDATION SEE BELOW Normal [facility] Comment on above: Result Comment: ADA RECOMMENDED LIMIT 4.0 - 6.0 ADA THERAPEUTIC TARGET < 7.0 ACTION SUGGESTED > 7.0 Performed By: #### L IPID, TSH, CMP #### [facility] [address] [address] [address] Leesa Urbina Glucose [Mass/Vol] 151 mg/dL Normal [facility] Comment on above: Performed By: #### L IPID, TSH, CMP #### [facility] [address] [address] [address] Leesa Urbina HbA1c (Bld) [Mass fraction] 6.9 % Critically high 4.5-6.2 [facility] Comment on above: Performed By: #### L IPID, TSH, CMP #### [facility] [address] [address] [address] Leesa Urbina LIPID PROFILEon 11-05-2021 CHOL-HDL RATIO NORM SEE BELOW Normal [facility] Comment on above: Result Comment: 3.3 - 4.4 LOW RISK 4.4 - 7.1 AVERAGE RISK 7.1 - 11.0 MODERATE RISK >11.0 HIGH RISK Performed By: #### L IPID, TSH, CMP #### [facility] [address] [address] [address] Leesa Urbina Cholesterol [Mass/Vol] 150 mg/dL Normal <=200 [facility] Comment on above: Performed By: #### L IPID, TSH, CMP #### [facility] [address] [address] [address] Leesa Urbina Cholesterol in HDL [Mass/Vol] 60 mg/dL Normal 40-60 [facility] Comment on above: Performed By: #### L IPID, TSH, CMP #### [facility] [address] [address] [address] Leesa Urbina Cholesterol in LDL [Mass/Vol] 70.8 mg/dL Normal [facility] Comment on above: Performed By: #### L IPID, TSH, CMP #### [facility] [address] [address] [address] Leesa Urbina Cholesterol.total/Chol esterol in HDL [Mass ratio] 2.5 {ratio} Normal [facility] Comment on above: Performed By: #### L IPID, TSH, CMP #### [facility] [address] [address] [address] Leesa Urbina HDL NORMAL > or = 60 mg/dl - LOW CARDIOVASCULAR RISK <40 mg/dl - HIGH CARDIOVASCULAR RISK Normal [facility] Comment on above: Performed By: #### L IPID, TSH, CMP #### [facility] [address] [address] [address] Leesa Urbina LDL CALC NORMAL SEE BELOW Normal [facility] Comment on above: Result Comment: <100 mg/dl OPTIMAL 100 - 129 mg/dl NEAR OR ABOVE OPTIMAL 130 - 159 mg/dl BORDERLINE HIGH 160 - 189 mg/dl HIGH >190 mg/dl VERY HIGH Performed By: #### L IPID, TSH, CMP #### [facility] [address] [address] [address] Leesa Urbina Triglyceride [Mass/Vol] 96 mg/dL Normal <=150 [facility] Comment on above: Performed By: #### L IPID, TSH, CMP #### [facility] [address] [address] [address] Leesa Urbina VLDL CALC 19.2 mg/dL Normal [facility] Comment on above: Performed By: #### L IPID, TSH, CMP #### [facility] [address] [address] [address] Leesa Urbina MICROALB CREAT RATIO RANDOMo n 11-05-2021 mALB <1.3 Normal <=30.0 [facility] Comment on above: Performed By: #### L IPID, TSH, CMP #### [facility] [address] [address] [address] Leesa Urbina MALB CR RATIO 11.4 mg/g Normal 0.0-29.9 [facility] Comment on above: Performed By: #### L IPID, TSH, CMP #### [facility] [address] [address] [address] Leesa Urbina MALB CR RATIO RANGE SEE BELOW Normal [facility] Comment on above: Result Comment: NO M ICROALBUMINURIA 0-29 MG/G CLINICAL MICROALBUMINURIA 30-300 MG/G MACROALBUMINURIA >300 MG/G Performed By: #### L IPID, TSH, CMP #### [facility] [address] [address] [address] Leesa Urbina URINE CREAT 114.03 mg/dL Normal 20.00-300.00 [facility] Comment on above: Performed By: #### L IPID, TSH, CMP #### [facility] [address] [address] [address] Leesa Urbina PROF 14(COMP METB)on 022 Albumin [Mass/Vol] 2.3 g/dL Critically low 3.4-5.0 [facility] Comment on above: Performed By: #### L IPID, TSH, CMP #### [facility] [address] [address] [address] Leesa Urbina Albumin/Globulin [Mass ratio] 0.5 {ratio} Normal [facility] Comment on above: Performed By: #### L IPID, TSH, CMP #### [facility] [address] [address] [address] Leesa Urbina ALP [Catalytic activity/Vol] 77 U/L Normal 46-116 [facility] Comment on above: Performed By: #### L IPID, TSH, CMP #### [facility] [address] [address] [address] Leesa Urbina ALT [Catalytic activity/Vol] 16 U/L Normal 16-63 [facility] Comment on above: Performed By: #### L IPID, TSH, CMP #### [facility] [address] [address] [address] Leesa Urbina Anion gap [Moles/Vol] 13.8 mmol/L Normal [facility] Comment on above: Performed By: #### L IPID, TSH, CMP #### [facility] [address] [place] [address] Dr. Leesa Urbina AST [Catalytic activity/Vol] 15 U/L Normal 15-37 [facility] Comment on above: Performed By: #### L IPID, TSH, CMP #### [facility] [address] [place] [address] Dr. Leesa Urbina Bilirubin [Mass/Vol] 0.5 mg/dL Normal 0.2-1.0 [facility] Comment on above: Performed By: #### L IPID, TSH, CMP #### [facility] [address] [place] [address] Dr. Leesa Urbina Calcium [Mass/Vol] 8.7 mg/dL Normal 8.5-10.1 [facility] Comment on above: Performed By: #### L IPID, TSH, CMP #### [facility] [address] [place] [address] Dr. Leesa Urbina Chloride [Moles/Vol] 107 mmol/L Normal 98-107 [facility] Comment on above: Performed By: #### L IPID, TSH, CMP #### [facility] [address] [place] [address] Dr. Leesa Urbina CO2 [Moles/Vol] 26.2 mmol/L Normal 21.0-32.0 [facility] Comment on above: Performed By: #### L IPID, TSH, CMP #### [facility] [address] [place] [address] Dr. Leesa Urbina Creatinine [Mass/Vol] 1.25 mg/dL Normal 0.70-1.30 [facility] [facility] Comment on above: Performed By: #### L IPID, TSH, CMP #### [facility] [address] [address] [address] Leesa Urbina EGFR-AF ST LUCIAN >60 Normal >=60 [facility] Comment on above: Performed By: #### L IPID, TSH, CMP #### [facility] [address] [address] [address] Leesa Urbina EGFR-NON AF [facility] LUCIAN 55 mL/min/1.73m2 Critically low >=60 [facility] Comment on above: Performed By: #### L IPID, TSH, CMP #### [facility] [address] [address] [address] Leesa Urbina Globulin (S) [Mass/Vol] 4.3 g/dL Normal [facility] Comment on above: Performed By: #### L IPID, TSH, CMP #### [facility] [address] [place] [address] Dr. Leesa Urbina Glucose [Mass/Vol] 137 mg/dL Critically high 74-[address] [facility] Comment on above: Performed By: #### L IPID, TSH, CMP #### [facility] [address] [address] [address] Leesa Urbina Potassium [Moles/Vol] 4.0 mmol/L Normal 3.5-5.1 [facility] Comment on above: Performed By: #### L IPID, TSH, CMP #### [facility] [address] [address] [address] Leesa Urbina Protein [Mass/Vol] 6.6 g/dL Normal 6.4-8.2 [facility] Comment on above: Performed By: #### L IPID, TSH, CMP #### [facility] [address] [place] [address] Dr. Leesa Urbina Sodium [Moles/Vol] 143 mmol/L Normal 136-145 [facility] Comment on above: Performed By: #### L IPID, TSH, CMP #### [facility] [address] [address] [address] Leesa Urbina Urea nitrogen [Mass/Vol] 24.0 mg/dL Critically high 7.0-18.0 [facility] Comment on above: Performed By: #### L IPID, TSH, CMP #### [facility] [address] [address] [address] Leesa Urbina Urea nitrogen/Creatinine [Mass ratio] 19.2 mg/mg Normal [facility] Comment on above: Performed By: #### L IPID, TSH, CMP #### [facility] [address] [address] [address] Leesa Urbina TSHon 11-05-2021 TSH 0.996 uIU/mL Normal 0.358-3.740 [facility] Comment on above: Performed By: #### L IPID, TSH, CMP #### [facility] [address] [address] [address] Leesa Urbina Tobacco Screening.on 022 Adult depression screening assessment No [facility] 250 DO Work Phone: Fall risk assessment a) No falls within the last year [facility] 250 DO Work Phone: Tobacco use status [facility]PH[facility] b) No [facility] 250 DO Work Phone: Vital Signs Date Time Vital Sign Value Performing Clinician Facility 07-13-2023 08:34-0500 Body height 180.3 cm Dev Camp MD Work Phone: [facility] 07-13-2023 08:34-0500 Body mass index (BMI) [Ratio] 23.99 kg/m2 Dev Camp MD Work Phone: [facility] 07-13-2023 08:34-0500 Body weight 78.02 kg Dev Camp MD Work Phone: [facility] 07-13-2023 08:34-0500 Diastolic blood pressure 64 mm[Hg] Dev Camp MD Work Phone: [facility] 07-13-2023 08:34-0500 Heart rate 60 /min Dev Camp MD Work Phone: [facility] 07-13-2023 08:34-0500 Systolic blood pressure 108 mm[Hg] Dev Camp MD Work Phone: [facility] 11-17-2022 14:15-0400 Body height 180.34 cm Imad Asaad Other [employer] Other 11-17-2022 14:15-0400 Body mass index (BMI) [Ratio] 23.71 kg/m2 Imad Asaad Other [employer] Other 11-17-2022 14:15-0400 Body weight 77.11 kg Imad Asaad Other [employer] Other 11-17-2022 14:15-0400 Diastolic blood pressure 78 mm[Hg] Imad Asaad Other [employer] Other 11-17-2022 14:15-0400 Systolic blood pressure 127 mm[Hg] Imad Asaad Other [place] [employer] Other 07-14-2022 09:08-0500 Body height 180.34 cm Gabriel Bello Work Phone: [facility] [employer] 250 DO Work Phone: 07-14-2022 09:08-0500 Body mass index (BMI) [Ratio] 24.13 kg/m2 Gabriel Bello Work Phone: [facility] [employer] 250 DO Work Phone: 07-14-2022 09:08-0500 Body surface area Derived from formula 1.98 m2 Gabriel Bello Work Phone: [facility] [employer] 250 DO Work Phone: 07-14-2022 09:08-0500 Body weight 78.47 kg Gabriel Bello Work Phone: [facility] 250 DO Work Phone: 07-14-2022 09:08-0500 Diastolic blood pressure 78 mm[Hg] Gabriel Bello Work Phone: [facility] 250 DO Work Phone: 07-14-2022 09:08-0500 Heart rate 68 /min Gabriel Bello Work Phone: [facility] 250 DO Work Phone: 07-14-2022 09:08-0500 Systolic blood pressure 124 mm[Hg] Gabriel Bello Work Phone: [facility] 250 DO Work Phone: 07-03-2021 15:20-0500 Diastolic blood pressure 78 mm[Hg] Gabriel Bello Work Phone: [facility] 250 DO Work Phone: 07-03-2021 15:20-0500 Heart rate 65 /min Gabriel Bello Work Phone: [facility] 250 DO Work Phone: 07-03-2021 15:20-0500 Systolic blood pressure 136 mm[Hg] Gabriel Bello Work Phone: [facility] 250 DO Work Phone: 07-03-2021 15:17-0500 Body height 180.34 cm Gabriel Bello Work Phone: [facility] 250 DO Work Phone: 07-03-2021 15:17-0500 Body mass index (BMI) [Ratio] 24.97 kg/m2 Gabriel Bello Work Phone: [facility] 250 DO Work Phone: 07-03-2021 15:17-0500 Body surface area Derived from formula 2.01 m2 Gabriel Bello Work Phone: [facility] 250 DO Work Phone: 07-03-2021 15:17-0500 Body weight 81.19 kg Gabriel Bello Work Phone: [facility] 250 DO Work Phone: 07-03-2021 15:17-0500 Diastolic blood pressure 80 mm[Hg] Gabriel Bello Work Phone: [facility] 250 DO Work Phone: 07-03-2021 15:17-0500 Systolic blood pressure 151 mm[Hg] Gabriel Bello Work Phone: [facility] 250 DO Work Phone: Encounters Encounter [...] Start: 09-13-2023 End: 09-13-2023 ambulatory Miller Donald Facility:[facility] Start: 09-13-2023 End: 09-13-2023 ambulatory DO Gabriel Bello Work Phone: [facility] Work Phone: Start: 09-13-2023 End: 09-13-2023 Patient encounter procedure DO Gabriel Bello Work Phone: [facility] Work Phone: Start: 07-13-2023 End: 07-13-[address] [facility] Start: 07-13-2023 End: 07-13-2023 Office outpatient visit 25 minutes Dev Camp MD Work Phone: [facility] Comment on above: Benign essential hyp ertension (Primary Dx); Mixed hyperlipidemia; Paroxysmal atrial fibrillation (CMS/HCC); Former smoker Start: 05-26-2023 End: 05-26-2023 ambulatory CHRIS PATEL Not Available Start: 05-12-2023 End: 05-12-2023 ambulatory GABRIEL BELLO Not Available Start: 04-26-2023 End: 04-26-2023 ambulatory LAURA BARROW Not Available Start: 12-24-2022 End: 12-24-2022 ambulatory Imad Asaad Facility:[facility] Start: 11-26-2022 End: 11-26-2022 ambulatory Imad Asaad Facility:[facility] Start: 11-26-2022 End: 11-26-2022 ambulatory DO Gabriel Bello Work Phone: [facility] Work Phone: Start: 11-26-2022 End: 11-26-2022 Patient encounter procedure DO Gabriel Bello Work Phone: [facility] [place] Work Phone: Start: 11-17-2022 End: 11-17-2022 ambulatory Imad Asaad Other [facility] [employer] Other Start: 11-17-2022 Office outpatient ne w 45 minutes Imad Asaad [facility] Start: 11-17-2022 Telephone encounter Imad Asaad [facility] Start: 09-03-2022 End: 09-04-[address] GABRIEL BELLO Facility: Start: 07-14-2022 Office outpatient visit 25 minutes Gabriel Bello Work Phone: [address] [place] [address] DO Work Phone: Start: 07-14-[address] Gabriel Kulkarni Facility:[id number] Start: 05-25-2022 End: 05-26-[address] GABRIEL BELLO Facility:[facility] Start: 05-06-2022 End: 05-07-[address] GABRIEL BELLO Facility:[facility] Start: 03-27-2022 Rx Renewal Gabriel mae Work Phone: [facility] 250 DO Work Phone: Start: 12-05-2021 End: 12-05-2021 Patient encounter procedure DO Gabriel Bello Work Phone: [facility] Start: 11-20-2021 End: 11-21-[address] DOCTOR BISHOP Facility:[facility] Start: 11-05-2021 End: 11-06-[address] GABRIEL BELLO Facility:[facility] Start: 07-03-2021 Office outpatient visit 25 minutes Gabriel Bello Work Phone: [facility] 250 DO Work Phone: Start: 03-05-2021 Rx Renewal Marina lozada MD Work Phone: [facility] 250 DO Work Phone: Start: 07-12-2020 End: 07-12-2020 Discharged Recurring Gabriel Bello [facility]Covid Vaccine Procedures Date Procedure Procedure Detail [...] By: #### L IPID, TSH, CMP #### [facility] [address] [place] [address] Dr. Leesa Urbina Start: 11-20-[address] DOCTOR BISHOP Comment on above: Performed By: #### P SAD #### [facility] [address] [address] [address] Leesa Urbina Appendectomy Gabriel daniel Work Phone: Cataract surgery Gabriel Alicia morris Work Phone: Colonoscopy Gabriel A Changma n Work Phone: Comment on above: [id number] Jovanny Yu; Operation on lip Gabriel Alicia morris Work Phone: Prostatectomy Gabriel mae Work Phone: Plan of Treatment Date Care Activity Detail Author Start: 07-18-2024 End: 07-18-2024 Patient encounter procedure 07/18/2024 8:50 AM EST Office Visit [facility] [address] [address] Dev Camp MD 703 [facility] [address] [address] [facility] Start: 07-13-2023 FUV, Provider: Dev Camp, Status: Pen, Time: 8:50 AM FUV, Provider: Dev Camp, Status: Pen, Time: 8:50 [facility]: Start: 07-14-2022 FUV, Provider: Dev Camp, Status: Pen, Time: 9:10 AM FUV, Provider: Dev Camp, Status: Pen, Time: 9:10 AM [facility] Work Phone: Start: 06-24-2021 FUV, Provider: Dev Camp, Status: Pen, Time: 10:15 AM FUV, Provider: Dev Camp, Status: Alon, Time: 10:15 AM [facility] 250 DO Work Phone: Start: 1960 DTaP/Tdap/Td Vaccine s (1 - Tdap) DTaP/Tdap/Td Vaccines (1 - Tdap) [facility] Start: 1957 Urine screening for protein Diabetes: Urine Protein Screening [facility] Start: 1948 Diabetic foot examination Diabetes: Foot Exam [facility] Start: 1948 Glaucoma screening Diabetes: R etinopathy Screening [facility] Start: 1940 Hemoglobin A1c measurement Diabetes: Hemoglobin A1C [facility] Start: 1940 Lipid panel Lipid Panel [facility] Start: 1940 Medicare Annual Wellness Visit Medicare Annual Wellness Visit (AWV) [facility] HIV 1+2 Ab+HIV1 p24 Ag [Presence] in Serum or Plasma by Immunoassay [facility] Immunizations Immunization Date Immunization Notes Care Provider Fa cili 04-03-2022 Moderna COVID-19 Biv al Booster 50 MCG/0.5ML Intramuscular Suspension Gabriel Bello Work Phone: [facility] 250 DO Work Phone: 03-10-2022 Fluad Quadrivalent 0 .5 ML Intramuscular Prefilled Syringe Gabriel Bello Work Phone: [facility] 250 DO Work Phone: 12-19-2021 Moderna COVID-19 Vac cine 100 MCG/0.5ML Intramuscular Suspension Gabriel Bello Work Phone: [facility] 250 DO Work Phone: 03-20-2021 Moderna COVID-19 Vac cine 100 MCG/0.5ML Intramuscular Suspension Gabriel Bello Work Phone: [facility] 03-12-2021 influenza, high dose seasonal, preservative-free [facility] Work Phone: 02-26-2021 Fluzone High-Dose Quadrivalent 0.7 ML Intramuscular Suspension Prefilled Syringe Gabriel Bello Work Phone: [facility] DO Work Phone: 07-12-2020 COVID-19 mRNA-1273 (Moderna) [facility] 06-15-2020 COVID-19 mRNA-1273 (Moderna) [facility] 03-15-2020 Fluad Quadrivalent 0 .5 ML Intramuscular Prefilled Syringe Gabriel Bello Work Phone: [facility] DO Work Phone: 02-24-2020 influenza, high dose seasonal, preservative-free Gabriel Bello Work Phone: [facility] DO Work Phone: 03-11-2019 zoster vaccine recombinant Gabriel Bello Work Phone: [facility] 250 DO Work Phone: 03-01-2019 influenza, high dose seasonal, preservative-free Gabriel A Ace Work Phone: [facility] 250 DO Work Phone: 02-21-2019 influenza, high dose seasonal, preservative-free Gabriel A Ace Work Phone: [facility] DO Work Phone: 12-22-2018 zoster vaccine recombinant Gabriel Bello Work Phone: [facility] 250 DO Work Phone: 02-25-2018 influenza, high dose seasonal, preservative-free Gabriel A Ace Work Phone: [place] [address] DO Work Phone: 03-16-2017 influenza, high dose seasonal, preservative-free Gabriel Bello Work Phone: [address] [place] [address] DO Work Phone: 05-24-2016 pneumococcal conjuga te vaccine, 13 valent Gabriel Bello Work Phone: [facility] 03-22-2015 influenza, high dose seasonal, preservative-free Gabriel Bello Work Phone: [address] [place] [address] DO Work Phone: 05-24-2012 pneumococcal polysaccharide vaccine, 23 valent Gabriel Bello Work Phone: [facility] 05-31-2009 novel influenza-H1N1 -09, preservative-free, injectable Gabriel Bello Work Phone: [address] [place] [address] DO Work Phone: Payers Date Payer Category Payer Medicare [id number] 2022 Self-pay [id number] 1959 Private Health Insurance 101 [id number] 1938 Unknown [id number] 2.16. [id number] 1938 Unknown [id number] 2.16.84 0.1.844804.3.579.2.593 1938 Unknown [id number] 2.16.84 0.1.219485.3.579.2.593 1938 Unknown [id number] 2.16.84 0.1.204154.3.579.2.593 1938 Unknown [id number] 2.16.84 0.1.704476.3.579.2.593 1938 Unknown [id number] 2.16.84 0.1.712258.3.579.2.593 1938 Unknown [id number] 2.16.8 40.1.157983.3.579.2.1244 1938 Unknown [id number] 2.16.84 0.1.271434.3.579.2.1259 1938 Unknown [id number] 2.16.84 0.1.026067.3.579.2.1259 1938 Unknown [id number] 2.16.84 0.1.328506.3.579.2.1259 1938 Unknown [id number] 2.16.84 0.1.841748.3.579.2.1259 1938 Unknown [id number] 2.16.84 0.1.463505.3.579.2.1259 1938 Unknown [id number] 2.16.840 .1.817586.3.579.2.1259 1938 Unknown [id number] 2.16.840 .1.867742.3.579.2.1259 1938 Unknown [id number] 2.16.840 .1.864835.3.579.2.1259 Medicare Medicare [id number] Private Health Insurance Self Pay [facility] [id number] Unknown [employer] Unknown [id number] 2.16.8 40.1.516068.3.579.2.531 Unknown [id number] 2.16.8 40.1.901325.3.579.2.531 Unknown [id number] 2.16.8 40.1.078066.3.579.2.531 Social History Date Type Detail Facility Tobacco smoking status NMIS Unknown if ever smoked [facility] Start: 1940 Sex Assigned At Male [facility] Start: 07-13-2023 Never a smoker Never a smoker -[facility] 250 DO Work Phone: Comment on above: 2-3 drinks a month; Start: 12-05-2021 End: 12-24-2022 Tobacco smoking status NHIS Ex-smoker (finding) [facility] Start: 07-13-2023 Sex Assigned At N [facility] [employer] Other End: 05-24-1989 History of tobacco use Current smoker [facility] Work Phone: End: 05-24-1989 History of tobacco use Cigarette Smoker [facility] Work Phone: Start: 07-13-2023 Tobacco use and exposure Smokeless tobacco non-user [facility] Work Phone: Start: 07-13-2023 Alcohol intake Lifetime non-d joe (finding) [facility] Work Phone: Start: 1940 Sex Assigned At Not on file [facility] Work Phone: Start: 07-03-2023 End: 07-13-2023 Exposure to SARS-CoV-2 (event) Not sure [facility] Goals Date Patient Goal Desired Activity [...] by mouth once daily., Disp: , Rfl: [id number] (Creon) 24,000-76,000 -120,000 unit capsule, Take 1 [...] and plan. documented in this encounter [facility] Work Phone: Instructions 07-13-2023 Patient Instructions [...] your visit. documented in this encounter [facility] Work Phone: Evaluation note 11-17-2022 Note Date & Type Note Facility 11-17-2022 Evaluation note Encounter Date Diagnosis Assessment Notes Oct, Change in bowel habits (ICD-10 - R19.4) Oct, Diverticulosis (ICD-10 - K57.90) Oct, IBS (irritable bowel syndrome) (ICD-10 - K58.9) Oct, Pancreatic insufficiency (ICD-10 - K86.89) [facility] [employer] Other History of Present illness Narrative 07-14-2022 [...] necessary and we suggest follow-up next year -[facility] 250 DO Work Phone: Evaluation note Note Date & Type Note Facility Evaluation note No assessment information [facility] Work Phone: Evaluation note Note Date & Type Note Facility Evaluation note No Information [facility] [employer] Other Evaluation note Note Date & Type Note Facility Evaluation note Diagnosis Benign essential hypertension- Primary Essential hypertension, benign Mixed hyperlipidemia Paroxysmal atrial fibrillation (CMS/HCC) Atrial fibrillation Former smoker Personal history of tobacco use, presenting hazards to health documented in this encounter [facility] Work Phone: History general Narrative - [...] History Right cataract surge ry per in [place], [place]. 10-28-17 Surgical History Mohs repair / left upper lip Hospitalization History see above [employer] Other History of Present illness Narrative Note [...] suggest continued therapy as before without change. -[facility] 250 DO Work Phone: Advance Directives No [...] Procedures ECG 12 Lead Dev Camp MD [address] [place] [address], [place] [phone] Referral ID Status Reason Start Date Expiration Date V isits Requested Visits Authorized [id number] Authorized 07/13/2023 07/12/2024 1 1 Specialty Diagnoses / Procedures Referred By Contac t Referred To Contact Cardiology Diagnoses Paroxysmal atrial fibrillation (CMS/HCC) Procedures Follow Up In Cardiology Dev Camp MD [address] [place] [address], [place] [phone] Dev Camp MD [address] [place] [address], [place] [phone] Referral ID Status Reason Start Date Expiration Date V isits Requested Visits Authorized [id number] Authorized 07/13/2023 07/12/2024 1 1 Additional Source [...] Bello DO Primary Care Provider Active Shonna iSm DO Family Provider Active Jj Garcia MD Attending Provider Active 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 Relationship Specialty Start Date End Date Gabriel Bello DO [address] [place] [address] PCP - General 05/24/99 Team Status: Inactive [...] section and content) DATE CREATED AUTHOR 07/15/2022 [facility] DATE CREATED AUTHOR AUTHOR'S ORGANIZ ATION 07/15/2022 [employer] DATE CREATED AUTHOR AUTHOR'S ORGANIZ ATION 09/10/2022 [facility] DATE CREATED AUTHOR AUTHOR'S ORGANIZ ATION 07/14/2023 [facility] DATE CREATED AUTHOR AUTHOR'S ORGANIZ ATION 09/18/2023 [facility] DATE CREATED AUTHOR AUTHOR'S ORGANIZ ATION 11/15/2023 [facility] Specialists EPIC REASON FOR VISIT (unrecogniz ed section and content) Reason Comments Annual Exam Specialty Diagnoses / Procedures Referred By Contac t Referred To Contact Diagnoses Paroxysmal atrial fibrillation (CMS/HCC) Procedures ECG 12 Lead Dev Camp MD 703 [facility] [address] [place] [address] Referral ID Status Reason Start Date Expiration Date V isits Requested Visits Authorized [id number] Authorized 07/13/2023 07/12/2024 1 1 FOR RECORDS [...] BE BASED ON THE PRIMARY CLINICAL RECORDS. [facility], [facility]. provides no warranty or guarantee of the accuracy or completeness of information in this document.
[2023-12-13 07:46] LABS: Basophils Absolute Auto 0.1 10^3/uL (0.0-0.1); Basophils Percent Auto 1.1 % (0.2-2.0); Eosinophils Absolute Auto 0.5 10^3/uL (0.0-0.7); Eosinophils Percent Auto 5.6 % (0.9-7.0); Hematocrit 38.3 % (42.0-54.0); Hemoglobin 12.3 g/dL (14.0-18.0); Immature Granulocytes Abs Auto 0.05 10^3/uL (0.00-0.03); Immature Granulocytes Pct Auto 0.6 % (0.0-0.5); Lymphocytes Absolute Auto 2.9 10^3/uL (1.2-3.8); Lymphocytes Percent Auto 33.6 % (20.5-60.0); Mean Corpuscular HGB Conc 32.1 g/dL (29.9-35.2); Mean Corpuscular Hemoglobin 30.8 pg (25.9-34.0); Mean Platelet Volume 10.7 fL (9.5-13.5); Monocytes Absolute Auto 0.6 10^3/uL (0.3-0.8); Monocytes Percent Auto 6.8 % (1.7-12.0); Neutrophils Absolute Auto 4.5 10^3/uL (1.4-6.5); Neutrophils Percent Auto 52.3 % (43.0-75.0); Platelet Count 168 10^3/uL (150-450); Red Blood Count 3.99 10^6/uL (4.70-6.10); Red Cell Distribution Width 13.8 % (11.0-15.0); White Blood Count 8.6 10^3/uL (4.0-11.0)
[2023-12-13 08:51] LABS: Alanine Aminotransferase 18 U/L (16-63); Albumin Globulin Ratio 1.1; Albumin Level 3.3 g/dL (3.4-5.0); Alkaline Phosphatase 83 U/L (46-116); Anion Gap 13.5; Aspartate Amino Transferase 16 U/L (15-37); BUN Creatinine Ratio 16.5; Bilirubin Total 0.7 mg/dL (0.2-1.0); Calcium 8.5 mg/dL (8.5-10.1); Chloride 109 mmol/L (98-107); Estimated GFR (African America >60 (>=60); Estimated GFR (Non-African Ame 57 (>=60); Globulin 3.1 g/dL; Glucose 147 mg/dL (74-106); Lactate Dehydrogenase 163 U/L (85-227); Potassium 3.5 mmol/L (3.5-5.1); Sodium 145 mmol/L (136-145); Total Protein 6.4 g/dL (6.4-8.2)
[2023-12-13 08:59] LABS: Prostate Specific Antigen Scrn 0.17 ng/mL (<=4.00)
== END 2023-12-13 07:25 | disposition home or self-care (01) ==
LOC: LAB 07:25
PROVIDERS: PCP Internal Medicine; Visit Provider Urology
DX: Z79.899 Other long term (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 (principal); C61 Malignant neoplasm of prostate
CPT/HCPCS: 36415; 80053; 83615; 85025; G0103

== ENCOUNTER 2023-12-26 18:05 | Emergency (ER) | payer MEDICARE, SELFPAY ==
[2023-12-26] VITALS (29 sets, daily range): BP systolic 134–187; BP diastolic 78–110; PULSE 68–150; TEMP 36.6; O2SAT 92–98; BMI 23.7
--- NOTE | 2023-12-26 18:16 | XR_ITS ---
The [address] [address] Patient Name: DEV ALVAREZ MRN: [id number] date: 1940 Sex: M Assigned Patient Location: ED.MAIN Current Patient Location: ED.MAIN Accession/Order Number: [id number] Exam Date: 12/26/2023 18:30 Report Date: 12/26/2023 20:29 At the request of: MONIQUE DANIELS Procedure: XR chest 1V EXAM: XR chest 1V COMPARISON: None available. CLINICAL INDICATION: Palpitations. FINDINGS: The cardiomediastinal silhouette is within normal limits. No focal consolidation. No pleural effusion. No pneumothorax. XR/XR chest 1V IMPRESSION: No evidence of acute cardiopulmonary abnormality. Electronically authenticated by: JULIANNE COREAS Date: 12/26/2023 20:29
--- NOTE | 2023-12-26 18:16 | ECG_ITS ---
The [facility] Test Date: 2023-12-26 Pat Name: DEV ALVAREZ Department: Room: - Gender: Male Mental Health Assistant: : 1940 Requested By: Order Number: [id number] Reading MD: JANUSZ FORD Measurements Intervals [place] Rate: 150 P: 4 ID: 140 QRS: 12 QRSD: 84 T: 190 QT: 332 QTc: 417 Interpretive Statements SVT, can't exclude atrial fib-flutter [address] depression 4564 Twave abnormality, possible lateral ischemia 9150 abnormal ECG Electronically Signed On 12-27-2023 6:50:43 EDT by JANUSZ FORD
--- OUTSIDE RECORDS SUMMARY | 2023-12-26 18:23 | XMS_ITS ---
Patient Summarization (C-CDA 2.1 CCD) Created on: December 26, 2023 DEV WALSH : 1940 Sex: Male Author Organization Sample organization Care Team Providers Care Contract Attorney Name Role Phone Gabriel Bello Primary Care Provider [phone] Ryan Negron Attending Provider Gabriel Bello Unavailable Unavailable Unavailable DO Gabriel Bello Primary Care Provider [phone] DO Juan Ventura Attending Provider Dr. Gabriel Bello Abhilash Primary Care Unavai armani Camp II, Dr. Dev Black Attending Unavailable Ryan GARCIA, Dr. Dev Black Referring Unavailable MISC, DR SHERIFF Attending Unavailable MISC, DR SHERIFF Consulting Unavailable MISJeff, DR SHERIFF Admitting Unavailable ACE, DR RIOS Primary Care Unavailable ACE, DR RIOS Primary Care Unavailable ACE, DR RIOS Admitting Unavailable ACE, DR RIOS Attending Unavailable DR GABRIEL BELLO Consulting Unavailable DR GABRIEL BELLO Primary Care Unavailable MISC, DR SHERIFF Admitting Unavailable MISC, DR SHERIFF Attending Unavailable MISC, DR SHERIFF Consulting Unavailable ACE, DR RIOS Primary Care Unavailable ACE, DR RIOS Admitting Unavailable ACE, DR RIOS Attending Unavailable ACE, DR RIOS Consulting Unavailable ACE, DR RIOS Admitting Unavailable ACE, DR RIOS Attending Unavailable DR GABRIEL BELLO Consulting Unavailable DR GABRIEL BELLO Primary Care Unavailable Jj Garcia Unavailable DO Gabriel Bello Primary Care Provider MD Jj Garcia Attending Provider Gabriel Bello DO Primary Care Provider DEV [...] BELLO Attending Unavailable GABRIEL BELLO Referring Unavailable PETLAURA MONTERO Attending Unavailable GABRIEL BELLO Referring Unavailable GABRIEL BELLO Attending Unavailable PETWINSTON, LAURA A Attending Unavailable GABRIEL BELLO Attending Unavailable GABRIEL BELLO Attending Unavailable Unavailable Unavailable Unavailable Allergies Allergy Classification Reported Allergen(s) Allergy Type Date of Onset Reaction(s) Facility (4 sources) Sulfonamides (Antibiotic); Translations: [Sulfa Drugs] Allergy to drug (finding) [place] [address] DO Work Phone: (5 sources) Sulfonamides (Antibiotic); Translations: [SULFA (SULFONAMIDE ANTIBIOTICS)] Allergy to substance 2 [facility] (1 source) Sulfonamides (Antibiotic) Drug allergy (disorder) [facility] (2 sources) Substance with sulfonamide structure and antibacterial mechanism of action (substance) Drug allergy Unknown [facility] [employer] Other Encounters Encounter Date Encounter Type Care Provider Facility Start: 11-15-2023 End: 11-15-2023 ambulatory GABRIEL BELLO Not Available Start: 10-26-2023 End: 10-26-2023 ambulatory LAURA A PETITTI Not Available Start: 10-08-2023 End: 10-08-2023 ambulatory GABRIEL BELLO Not Available Start: 10-07-2023 End: 10-07-2023 ambulatory GABRIEL BELLO Not Available Start: 10-07-2023 End: 10-07-2023 ambulatory GABRIEL BELLO Not Available Start: 09-13-2023 End: 09-13-2023 ambulatory Miller Donald Facility:[facility] Start: 09-13-2023 End: 09-13-2023 ambulatory DO Gabriel Bello Work Phone: [facility] Work Phone: Start: 09-13-2023 End: 09-13-2023 Patient encounter procedure DO Gabriel Bello Work Phone: [facility]Pet [facility] Work Phone: Start: 07-13-2023 End: 07-13-2023 ambulatory DEV CAMP [facility] Ambulatory Start: 07-13-2023 End: 07-13-2023 Office outpatient visit 25 minutes Dev Camp MD Work Phone: [facility] Comment on above: Benign essential hyp ertension (Primary Dx); Mixed hyperlipidemia; Paroxysmal atrial fibrillation (CMS/HCC); Former smoker Start: 05-26-2023 End: 05-26-2023 ambulatory CHRIS PATEL Not Available Start: 05-12-2023 End: 05-12-2023 ambulatory GABRIEL Alicia ACE Not Available Start: 04-26-2023 End: 04-26-2023 ambulatory LAURA Alicia BARROW Not Available Start: 12-24-2022 End: 12-24-2022 ambulatory Imad Asaad Facility:[facility] Start: 11-26-2022 End: 11-26-2022 ambulatory Imad Asaad Facility:[facility] Start: 11-26-2022 End: 11-26-2022 ambulatory DO Gabriel Bello Work Phone: [facility] Work Phone: Start: 11-26-2022 End: 11-26-2022 Patient encounter procedure DO Gabrielata Bello Work Phone: [facility] [place] Work Phone: Start: 11-17-2022 End: 11-17-2022 ambulatory Imad Asaad Other [employer] Other Start: 11-17-2022 Office outpatient ne w 45 minutes Imad Asaad [facility] Start: 11-17-2022 Telephone encounter Imad Asaaryan [facility] Start: 09-03-2022 End: 09-04-[address] GABRIEL BELLO Facility:[facility] Start: 07-14-2022 Office outpatient visit 25 minutes Gabriel Bello Work Phone: [facility] 250 DO Work Phone: Start: 07-14-[address] Gabriel Kulkarni Facility:[id number] Start: 05-25-2022 End: 05-26-[address] GABRIEL BELLO Facility:[facility] Start: 05-06-2022 End: 05-07-[address] GABRIEL BELLO Facility:[facility] Start: 03-27-2022 Rx Renewal Gabriel mae Work Phone: [facility] 250 DO Work Phone: Start: 12-05-2021 End: 12-05-2021 Patient encounter procedure DO Gabriel Bello Work Phone: [facility] Start: 11-20-2021 End: 11-21-[address] DOCTOR BISHOP Facility:[facility] Start: 11-05-2021 End: 11-06-[address] GABRIEL BELLO Facility:[facility] Start: 07-03-2021 Office outpatient visit 25 minutes Gabriel Bello Work Phone: [facility] 250 DO Work Phone: Start: 03-05-2021 Rx Renewal Marina lozada MD [facility] Phone: [facility] DO Work Phone: Start: 07-12-2020 End: 07-12-2020 Discharged Recurring Gabriel Bello [facility] Vaccine Goals Date Patient Goal Desired Activity /State Immunizations Immunization Date Immunization Notes Care Provider Fa cili 04-03-2022 Moderna COVID-19 Biv al Booster 50 MCG/0.5ML Intramuscular Suspension Gabriel Bello Work Phone: [facility] 250 DO Work Phone: 03-10-2022 Fluad Quadrivalent 0 .5 ML Intramuscular Prefilled Syringe Gabriel Alicia DowningAce Work Phone: [facility] 250 DO Work Phone: 12-19-2021 Moderna COVID-19 Vac cine 100 MCG/0.5ML Intramuscular Suspension Gabriel Downingman Work Phone: [facility] 250 DO Work Phone: 03-20-2021 Moderna COVID-19 Vac cine 100 MCG/0.5ML Intramuscular Suspension Gabriel Downingman Work Phone: [facility] 03-12-2021 influenza, high dose seasonal, preservative-free Gabriel Downingman Work Phone: [place] [address] DO Work Phone: 02-26-2021 Fluzone High-Dose Quadrivalent 0.7 ML Intramuscular Suspension Prefilled Syringe Gabriel Downingman Work Phone: [place] [address] DO Work Phone: 07-12-2020 COVID-19 mRNA-1273 (Moderna) [facility] 06-15-2020 COVID-19 mRNA-1273 (Moderna) [facility] 03-15-2020 Fluad Quadrivalent 0 .5 ML Intramuscular Prefilled Syringe Gabriel Bello Work Phone: [facility] 250 DO Work Phone: 02-24-2020 influenza, high dose seasonal, preservative-free Gabriel Bello Work Phone: [facility] 250 DO Work Phone: 03-11-2019 zoster vaccine recombinant Gabriel Bello Work Phone: [facility] DO Work Phone: 03-01-2019 influenza, high dose seasonal, preservative-free Gabriel Bello Work Phone: [facility] Work Phone: 02-21-2019 influenza, high dose seasonal, preservative-free Gabriel Bello Work Phone: [facility] [employer] DO Work Phone: 12-22-2018 zoster vaccine recombinant Gabriel Bello Work Phone: [facility] [employer] DO Work Phone: 02-25-2018 influenza, high dose seasonal, preservative-free Gabriel Bello Work Phone: [facility] [employer] DO Work Phone: 03-16-2017 influenza, high dose seasonal, preservative-free Gabriel Bello Work Phone: [facility] [employer] DO Work Phone: 05-24-2016 pneumococcal conjuga te vaccine, 13 valent Gabriel Bello Work Phone: [facility] 03-22-2015 influenza, high dose seasonal, preservative-free Gabriel Bello Work Phone: [facility] [employer] DO Work Phone: 05-24-2012 pneumococcal polysaccharide vaccine, 23 valent Gabriel Bello Work Phone: [facility] 05-31-2009 novel influenza-H1N1 -09, preservative-free, injectable Gabriel Bello Work Phone: [facility] [employer] DO Work Phone: Medications Current Medications Medication Drug Class(es) Dates Sig (Normalized) Sig (Original) amylase 375842 unt / lipase 94484 unt / protease 82004 unt delayed release oral capsule (3 sources) Start: 11-17-2022 take 1 capsule by mouth three times daily at mealtime wpdcbd-yxdfpipm-zb ylase (Creon) 24,000-76,000 -120,000 unit capsule Take 1 capsule by mouth 3 times a day with meals. 0 11/17/2022 Active Start: 11-17-2022 Creon 69951-73 000 UNIT 1 with each meal Orally [...] December 05, 2021 12:00am polyethylene glycol 3350 818990 mg / potassium chloride 2970 mg / sodium bicarbonate 6740 mg / sodium chloride 5860 mg / sodium sulfate 71238 mg powder for oral solution (2 sources) [...] mouth see administration instructions. 0 Active Vit C,W-Fd-Tglys-Lutein -Zeaxan (Preservision Areds-2) 250-90-40-1 mg Capsule (3 sources) Start: 12-05-2021 Vit C,M-Xo-Irgeh-Lutein- Zeaxan (Preservision Areds-2) 250-90-40-1 mg Capsule Active 1 TAB PO Every morning December 05, 2021 12:47pm Start: 12-05-2021 Vit C,E-Zn-Chimney Builder Helper nw-Sgktsx-Wzvrin (Preservision Areds-2) 250-90-40-1 mg Capsule Active 1 [...] ascorbic acid 226 mg / beta carotene 77346 unt / cuprous oxide 0.8 mg / [...] Active Payers Date Payer Category Payer Medicare [id number] 2022 Self-pay [id number] 1959 Private Health Insurance [id number] 1940 Unknown [id number] 2.16. 840.1.134697.3.579.2.356 1940 Unknown [id number] 2.16.84 0.1.921862.3.579.2.593 1940 Unknown [id number] 2.16.84 0.1.602177.3.579.2.593 1938 Unknown [id number] 2.16.84 0.1.863835.3.579.2.593 1938 Unknown [id number] 2.16.84 0.1.811212.3.579.2.593 1938 Unknown [id number] 2.16.84 0.1.547222.3.579.2.593 1940 Unknown [id number] 2.16.8 40.1.773469.3.579.2.1244 1938 Unknown [id number] 2.16.84 0.1.212164.3.579.2.1259 1938 Unknown [id number] 2.16.84 0.1.903479.3.579.2.1259 1938 Unknown [id number] 2.16.84 0.1.022260.3.579.2.1259 1938 Unknown [id number] 2.16.84 0.1.889027.3.579.2.1259 1938 Unknown [id number] 2.16.84 0.1.906625.3.579.2.1259 1938 Unknown [id number] 2.16.840 .1.171346.3.579.2.1259 1938 Unknown [id number] 2.16.840 .1.223694.3.579.2.1259 1938 Unknown [id number] 2.16.840 .1.275119.3.579.2.1259 Medicare Medicare [id number] Private Health Insurance Self Pay [facility] [id number] Unknown [employer] Unknown [id number] 2.16.8 40.1.625971.3.579.2.531 Unknown [id number] 2.16.8 40.1.971687.3.579.2.531 Unknown [id number] 2.16.8 40.1.935123.3.579.2.531 Plan of Treatment Date Care Activity Detail Author Start: 07-18-2024 End: 07-18-2024 Patient encounter procedure 07/18/2024 8:50 AM EST Office Visit [facility] [address] [place] [phone] Dev Camp MD [address] [place] [address] [facility] Start: 07-13-2023 FUV, Provider: Dev Camp, Status: Alon, Time: 8:50 AM FUV, Provider: Dev Camp, Status: Pen, Time: 8:50 AM [place] [address] DO Work Phone: Start: 07-14-2022 FUV, Provider: Dev Camp, Status: Alon, Time: 9:10 AM FUV, Provider: Dev Camp, Status: Pen, Time: 9:10 AM [facility] 250 DO Work Phone: Start: 06-24-2021 FUV, Provider: Dev Camp, Status: Pen, Time: 10:15 AM FUV, Provider: Dev Camp, Status: Pen, Time: 10:15 AM [facility] 250 DO Work Phone: Start: 1960 DTaP/Tdap/Td Vaccine s (1 - Tdap) DTaP/Tdap/Td Vaccines (1 - Tdap) [facility] Start: 1957 Urine screening for protein Diabetes: Urine Protein Screening [facility] Start: 1948 Diabetic foot examination Diabetes: Foot Exam [facility] Start: 1948 Glaucoma screening Diabetes: R etinopathy Screening [facility] Start: 1940 Hemoglobin A1c measurement Diabetes: Hemoglobin A1C [facility] Start: 1938 Lipid panel Lipid Panel [facility] Start: 1938 Medicare Annual Wellness Visit Medicare Annual Wellness Visit (AWV) [facility] HIV 1+2 Ab+HIV1 p24 Ag [Presence] in Serum or Plasma by Immunoassay [facility] Problems Active Problems Problem Classification [...] te Episodic/Chronic Other aftercare (1 source) Other 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 Leesa Urbina Start: 11-20-[address] DOCTOR BISHOP Comment on above: Performed By: #### P SAD #### [facility] [address] [place] [address] Dr. Leesa Urbina Appendectomy Gabriel daniel Work Phone: Cataract surgery Gabriel morris Work Phone: Colonoscopy Gabriel daniel Work Phone: Comment on above: [id number] Jovanny Yu; Operation on lip Gabriel morris Work Phone: Prostatectomy Gabriel mae Work Phone: Results Test Name Value Interpretation Reference Range Facility PET psma initial tx sb-mton 09-13-2023 PET psma initial tx sb-mt [facility] [place] [address] Nuclear Medicine Report Signed Patient: Dev Walsh MR#: [id number] 906 : 1940 Acct:[id number] Age/Sex: 83 / M ADM Date: 09/13/23 Loc: Room: Type: [facility] Attending Dr: SYLWIA STAFF Copies to: NON [...] Jordan Story M.D.09/13/2023 3:20 PM Dictation Location: [place] [address] Transcribed By: [facility] 09/13/23 1520 Dictated By: Jordan Story II, MD 09/13/23 1515 Signed By: 09/13/23 152 Normal [facility] Physician [facility] ECG 12 Leadon 07-13-2023 Sinus rhythm with frequent PVCs Otherwise normal EKG QTc 444 ms [facility] Work Phone: Joni 12-24-2022 L Specimen: [id number] Received: 12/24/22 Status: DEONDRE Lewis Num: [id number] Spec Type: Surgical Subm Dr: Jj Garcia MD Tissues: A Colon Biopsy (RANDOM COLON) B Colon Biopsy (ASCENDING POLYP) Procedures: HE/4, Gross/Micro L4/2 Age/ Patient Sex Location Account Attending Physician Dev Walsh 82/M [id number] Jj Garcia MD SPEC NUM: [id number] RECD: 12/24/22 STATUS: DEONDRE LEWIS NUM: [id number] JARRET: 12/24/22 DR: Jj Garcia MD ENTERED: 12/24/[address] [facility] [address]: SPEC TYPE: Surgical DEPT: S ORDERED: [...] submitted in one cassette labeled B1. Specimen: [id number] Received: 12/24/22 Status: DEONDRE Lewis Num: [id number] Spec Type: Surgical Subm Dr: Jj Garcia MD Tissues: A Colon Biopsy (RANDOM COLON) B Colon Biopsy (ASCENDING POLYP) Procedures: Lizett VASQUEZ/Saurabh L4/2 Patient: Dev Walsh [id number] (Continued) Specimen: [id number] Received: 12/24/22 (Continued) Signed (signature on file) Natan Davidson MD 12/29/22 1658 Specimen: [id number] Received: 12/24/22 Status: DEONDRE Lewis Num: [id number] Spec Type: Surgical Subm Dr: Jj Garcia MD Tissues: A Colon Biopsy (RANDOM COLON) B Colon Biopsy (ASCENDING POLYP) Procedures: Lizett VASQUEZ/Micro L4/2 Patient: Dev Walsh [id number] (Continued) Specimen: [id number] Received: 12/24/22 (Continued) Microscopic Description A. Two H E slides reviewed. The microscopic examination confirms the diagnosis. B. Two H E slides reviewed. The microscopic examination confirms the diagnosis. CPT Codes 31924l1 Specimen: [id number] Received: 12/24/22 Status: DEONDRE Lewis Num: [id number] Spec Type: Surgical Subm Dr: Jj Garcia MD Tissues: A Colon Biopsy (RANDOM COLON) B Colon Biopsy (ASCENDING POLYP) Procedures: HE/4, Gross/Micro L4/2 Patient: Dev Walsh [id number] (Continued) Signed (signature on file) Natan Davidson MD 12/29/22 1658 Normal [facility] Blood Urea Nitrogenon 2022 Urea nitrogen [Mass/Vol] 31 mg/dL High 7-25 [facility] Comment on above: Order Comment: Reaso n for Exam Change in bowel habits Performed By: #### T SH3, BUN, CREAT #### [facility] [address] [place] [address] C reactive protein [Mass/vol ume] in Serum or PlasmaOrdered By: Jj Garcia on 11-26-2022 CRP [Mass/Vol] < 0.5 mg/dL 0.0-0.5 [facility] C-Reactive Proteinon 023 CRP [Mass/Vol] mg/L Normal 0.0-0.5 [facility] Comment on above: Order Comment: Reaso n for Exam Change in bowel habits Result Comment: PERF ORMED BY: [facility] [address] [facility] [place] [address] PATHOLOGIST WELDER SETTER ELECTRON BEAM MACHINE WILMA MANTILLA M.D. Performed By: #### C RP, ESR #### [facility] [address] [place] [address] [place] #### HIV SCREEN #### [facility] , CT abdomen pelvis w conon CT abdomen pelvis w con [facility] [place] [address] [place] [address] CT Scan Report Signed Patient: Dev Walsh MR#: [id number] 906 : 1940 Acct:[id number] Age/Sex: 82 / M ADM Date: 11/26/22 Loc: CT Room: Type: [facility] Attending Dr: Jj Garcia MD Copies to: [...] Mandujano Jr., DCassidyOCassidy11/26/2022 7:19 PM Dictation Location: [place] [address] Transcribed By: [facility] 11/26/221918 Dictated By: Jered Mandujano Jr, DO 11/26/221906 Signed By: 11/26/221918 Normal [facility] Creatinineon 11-26-2022 Creatinine [Mass/Vol] 1.55 mg/dL High 0.70-1.30 [facility] Comment on above: Order Comment: Reaso n for Exam Change in bowel habits Performed By: #### T SH3, BUN, CREAT #### [address] GFR/1.73 sq M.predicted MDRD (S/P/Bld) [Vol rate/Area] 43.863 mL/min/{1.73_m2} Normal [facility] Comment on above: Order Comment: Reaso n for Exam Change in bowel habits Performed By: #### T SH3, BUN, CREAT #### [facility] [address] [place] [address] Creatinine [Mass/volume] in Serum or PlasmaOrdered By: Gabriel Bello on 11-26-2022 Creatinine [Mass/Vol] 1.55 mg/dL 0.70-1.30 [facility] Erythrocyte Sedimentation Ra juli 11-26-2022 ESR (Bld) [Velocity] 18 mm/h Normal 0-19 [facility] Comment on above: Order Comment: Reaso n for Exam Change in bowel habits Result Comment: PERF ORMED BY: [place] [address] PATHOLOGIST WELDER SETTER ELECTRON BEAM MACHINE WILMA MANTILLA M.D. Performed By: #### C RP, ESR #### [address] #### HIV SCREEN #### [facility] , Erythrocyte sedimentation ra te by Photometric methodOrdered By: Imad Asaad on 11-26-2022 ESR Photometric method (Bld) [Velocity] 18 mm/hr 0-19 [facility] HIV 1/O/2 Antigen/Antibodyon 11-26-2022 HIV Screen 4th Generation Non-Reactive Normal Non Reactive [facility] Comment on above: Order Comment: Reaso n for Exam Change in bowel habits Result Comment: HIV Negative HIV-1/HIV-2 antibodies and HIV-1 p24 antigen were NOT detected. There is no laboratory evidence of HIV infection. Performed at: [facility] [id number] Risk Assessment Analyst: Miguel Cullen PhD, Phone: [phone] PERFORMED BY: [place] [address] PATHOLOGIST WELDER SETTER ELECTRON BEAM MACHINE WILMA MANTILLA M.D. Performed By: #### C RP, ESR #### [facility] [address] [place] [address] #### HIV SCREEN #### [facility] , No Panel InformationOrdered By: Gabriel Bello on 11-26-2022 Estimated GFR (CKD-EPI) 43.863 mL/Min [facility] Creatinine Clearance (Chem N/A [facility] Thyroid Stimulating Hormoneo n 11-26-2022 TSH Qn 1.23 m[IU]/L Normal 0.45-5.33 [facility] Comment on above: Order Comment: Reaso n for Exam Change in bowel habits Result Comment: PERF ORMED BY: [place] [address] PATHOLOGIST WELDER SETTER ELECTRON BEAM MACHINE WILMA MANTILLA M.D. Performed By: #### T SH3, BUN, CREAT #### [facility] [address] [place] [address] Thyrotropin [Units/volume] i n Serum or PlasmaOrdered By: Jj Garcia on 11-26-2022 TSH Qn 1.23 m[IU]/L 0.45-5.33 [facility] Urea nitrogen [Mass/volume] in Serum or PlasmaOrdered By: Gabriel Bello on 11-26-2022 Urea nitrogen [Mass/Vol] 31 mg/dL 7- [facility] PANCREATIC ELASTASE FECALon 09-08-2022 Pancreatic Elastase, Fecal 86 ug Elast./g Critically low >200 [facility] Comment on above: Result Comment: Re sults verified by repeat testing Severe Pancreatic Insufficiency: <100 Moderate Pancreatic Insufficiency: 100 - 200 Normal: >200 Performed By: #### L IPID, TSH, CMP #### [facility] [address] [place] [address] [address] Leesa Urbina CELIAC ANTIBODIES PROFILEon 09-04-2022 Deamidated Gliadin Abs, IgA 8 units Normal 0-19 [facility] Comment on above: Result Comment: Nega tive 0 - 19 Weak Positive 20 - 30 Moderate to Strong Positive >30 Performed By: #### C ELIACP #### [facility] [address] [place] [address] Dr. Leesa Urbina Deamidated Gliadin Abs, IgG 4 units Normal 0-19 [facility] Comment on above: Result Comment: Nega tive 0 - 19 Weak Positive 20 - 30 Moderate to Strong Positive >30 Performed By: #### C ELIACP #### [facility] [address] [place] [address] Dr. Leesa Urbina Endomysial Antibody IgA Negative Normal Negative [facility] Comment on above: Performed By: #### C ELIACP #### [facility] [address] [place] [address] Dr. Leesa Urbina Immunoglobulin A, Qn, Serum 143 mg/dL Normal 61-437 [facility] Comment on above: Performed By: #### C ELIACP #### [facility] [address] [place] [address] Dr. Leesa Urbina t-Transglutaminase (tTG) IgA <2 Normal 0-3 [facility] Comment on above: Result Comment: Nega tive 0 - 3 Weak Positive 4 - 10 Positive >10 . Tissue Transglutaminase (tTG) has been identified as the endomysial antigen. Studies have demonstr- ated that endomysial IgA antibodies have over 99% specificity for gluten sensitive enteropathy. Performed By: #### C ELIACP #### [facility] [address] [place] [address] Dr. Leesa Urbina t-Transglutaminase (tTG) IgG 6 U/mL Critically high 0-5 [facility] Comment on above: Result Comment: Nega tive 0 - 5 Weak Positive 6 - 9 Positive >9 Performed By: #### C ELIACP #### [facility] [address] [place] [address] Dr. Leesa Urbina CBC AUTO DIFFon 09-03-2022 BASO # 0.1 103/ul Normal 0.0-0.1 [facility] Comment on above: Performed By: #### L IPID, TSH, CMP #### [facility] [address] [place] [address] Dr. Leesa Urbina Basophils/100 WBC (Bld) 1.1 % Normal 0.2-2.0 [facility] Comment on above: Performed By: #### L IPID, TSH, CMP #### [facility] [address] [place] [address] Dr. Leesa Urbina EO # 0.6 103/ul Normal 0.0-0.7 [facility] Comment on above: Performed By: #### L IPID, TSH, CMP #### [facility] [address] [place] [address] Dr. Leesa Urbina Eosinophils/100 WBC (Bld) 7.9 % Critically high 0.9-7.0 [facility] Comment on above: Performed By: #### L IPID, TSH, CMP #### [facility] [address] [place] [address] Dr. Leesa Urbina Erythrocyte distribution width (RBC) [Ratio] 13.6 % Normal 11.0-15.0 [facility] Comment on above: Performed By: #### L IPID, TSH, CMP #### [facility] [address] [place] [address] Dr. Leesa Urbina Hematocrit (Bld) [Volume fraction] 34.4 % Critically low 42.0-54.0 [facility] Comment on above: Performed By: #### L IPID, TSH, CMP #### [facility] [address] [place] [address] Dr. Leesa Urbina Hemoglobin (Bld) [Mass/Vol] 11.4 g/dL Critically low 14.0-18.0 [facility] Comment on above: Performed By: #### L IPID, TSH, CMP #### [facility] [address] [place] [address] Dr. Leesa Urbina IG # 0.02 10e3/ul Normal 0.00-0.03 [facility] Comment on above: Performed By: #### L IPID, TSH, CMP #### [facility] [address] [place], [place] [id number] Dr. Leesa Urbina IG % 0.3 % Normal 0.0-0.5 [facility] Comment on above: Performed By: #### L IPID, TSH, CMP #### [facility] [address] [place] [address] Dr. Leesa Urbina LYMPH # 2.1 103/ul Normal 1.2-3.8 [facility] Comment on above: Performed By: #### L IPID, TSH, CMP #### [facility] [address] [place] [address] Dr. Leesa Urbina Lymphocytes/100 WBC (Bld) 28.1 % Normal 20.5-60.0 [facility] Comment on above: Performed By: #### L IPID, TSH, CMP #### [facility] [address] [place] [address] Dr. Leesa Urbina MANUAL DIFF REQ NO Normal [facility] Comment on above: Performed By: #### L IPID, TSH, CMP #### [facility] [address] [place] [address] Dr. Leesa Urbina MCH (RBC) [Entitic mass] 31.1 pg Normal 25.9-34.0 [facility] Comment on above: Performed By: #### L IPID, TSH, CMP #### [facility] [address] [place] [address] Dr. Leesa Urbina MCHC (RBC) [Mass/Vol] 33.1 g/dL Normal 29.9-35.2 [facility] Comment on above: Performed By: #### L IPID, TSH, CMP #### [facility] [address] [place] [address] Dr. Leesa Urbina MCV (RBC) [Entitic vol] 93.7 fL Normal 80.0-94.0 [facility] Comment on above: Performed By: #### L IPID, TSH, CMP #### [facility] [address] [place] [address] Dr. Leesa Urbina MONO # 0.4 103/ul Normal 0.3-0.8 [facility] Comment on above: Performed By: #### L IPID, TSH, CMP #### [facility] [address] [place] [address] Dr. Leesa Urbina Monocytes/100 WBC (Bld) 6.0 % Normal 1.7-12.0 [facility] Comment on above: Performed By: #### L IPID, TSH, CMP #### [facility] [address] [place] [address] Dr. Leesa Urbina NEUT # 4.2 103/ul Normal 1.4-6.5 [facility] Comment on above: Performed By: #### L IPID, TSH, CMP #### [facility] [address] [place] [address] Dr. Leesa Urbina Neutrophils/100 WBC (Bld) 56.6 % Normal 43.0-75.0 [facility] Comment on above: Performed By: #### L IPID, TSH, CMP #### [facility] [address] [place] [address] Dr. Leesa Urbina Platelet mean volume (Bld) [Entitic vol] 10.1 fL Normal 9.5-13.5 [facility] Comment on above: Performed By: #### L IPID, TSH, CMP #### [facility] [address] [place] [address] Dr. Leesa Urbina PLT 195 103/ul Normal 150-450 [facility] Comment on above: Performed By: #### L IPID, TSH, CMP #### [facility] [address] [place] [address] Dr. Leesa Urbina RBC 3.67 106/ul Critically low 4.70-6.10 [facility] Comment on above: Performed By: #### L IPID, TSH, CMP #### [facility] [address] [place] [address] Dr. Leesa Urbina WBC 7.3 103/ul Normal 4.0-11.0 [facility] Comment on above: Performed By: #### L IPID, TSH, CMP #### [facility] [address] [place] [address] Dr. Leesa Urbina FERRITINon 09-03-2022 Ferritin [Mass/Vol] 44.0 ng/mL Normal 26.0-388.0 [facility] Comment on above: Performed By: #### F ERR, FETIBC #### [facility] [address] [address] [address] Leesa Urbina IRON AND TIBCon 09-03-2022 % SATURATION 23.5 % Normal [facility] Comment on above: Performed By: #### F ERR, FETIBC #### [facility] [address] [address] [address] Leesa Urbina Iron [Mass/Vol] 69.0 ug/dL Normal 65.0-175.0 [facility] Comment on above: Performed By: #### F ERR, FETIBC #### [facility] [address] [address] [address] Leesa Urbina TIBC DIRECT 294.0 ug/dL Normal 250.0-450.0 [facility] Comment on above: Performed By: #### F ERR, FETIBC #### [facility] [address] [address] [address] Leesa Urbina Office Visit (Cardiology)on 07-14-2022 Follow-up visit Diagnoses/Problems Assessed Anticoagulated (V58.61) (Z79.01) Benign essential hypertension (401.1) (I10) Hyperlipidemia (272.4) (E78.5) Paroxysmal atrial fibrillation (427.31) (I48.0) Diabetes mellitus (250.00) (E11.9) Body mass index (BMI) of 24.0 to 24.9 in adult (V85.1) (Z68.24) Never a smoker Orders SocHx: Never a smoker Tobacco Use Screening; Status:Complete; Done: [id number] Patient Instructions Please bring all medicines, vitamins, [...] negative for complaint. Vitals Vital Signs Recorded: [id number] 09:08AM Heart Rate68, L Radial Qnpupcez138, LUE, Sitting Ugfixyykf75, LUE, Sitting Height5 ft 11 in Vcfyyk112 lb BMI Pyhhdzvgyn28.13 kg/m2 BSA Calculated1.98 Tobacco Useb) No PHQ-2 [...] Jul 14 2022 10:20AM EST (Author) Normal [facility] Tobacco Screening.on 023 Adult depression screening assessment No [facility] 250 DO Work Phone: Fall risk assessment a) No falls within the last year [facility] 250 DO Work Phone: Tobacco use status CPHS b) No [facility] 250 DO Work Phone: CBC AUTO DIFFon 05-06-2022 BASO # 0.1 103/ul Normal 0.0-0.1 [facility] Comment on above: Performed By: #### C BC #### [facility] [address] [address] [address] Leesa Urbina Basophils/100 WBC (Bld) 1.4 % Normal 0.2-2.0 [facility] Comment on above: Performed By: #### C BC #### [facility] [address] [place] [address] Dr. Leesa Urbina EO # 0.4 103/ul Normal 0.0-0.7 [facility] Comment on above: Performed By: #### C BC #### [facility] [address] [place] [address] Dr. Leesa Urbina Eosinophils/100 WBC (Bld) 5.4 % Normal 0.9-7.0 [facility] Comment on above: Performed By: #### C BC #### [facility] [address] [place] [address] Dr. Leesa Urbina Erythrocyte distribution width (RBC) [Ratio] 13.3 % Normal 11.0-15.0 [facility] Comment on above: Performed By: #### C BC #### [facility] [address] [place] [address] Dr. Leesa Urbina Hematocrit (Bld) [Volume fraction] 35.8 % Critically low 42.0-54.0 [facility] Comment on above: Performed By: #### C BC #### [facility] [address] [place] [address] Dr. Leesa Urbina Hemoglobin (Bld) [Mass/Vol] 12.0 g/dL Critically low 14.0-18.0 [facility] Comment on above: Performed By: #### C BC #### [facility] [address] [place] [address] Dr. Leesa Urbina IG # 0.01 10e3/ul Normal 0.00-0.03 [facility] Comment on above: Performed By: #### C BC #### [facility] [address] [place] [address] Dr. Leesa Urbina IG % 0.2 % Normal 0.0-0.5 [facility] Comment on above: Performed By: #### C BC #### [facility] [address] [place] [address] Dr. Leesa Urbina LYMPH # 1.7 103/ul Normal 1.2-3.8 [facility] Comment on above: Performed By: #### C BC #### [facility] [address] [place] [address] Dr. Leesa Urbina Lymphocytes/100 WBC (Bld) 26.1 % Normal 20.5-60.0 [facility] Comment on above: Performed By: #### C BC #### [facility] [address] [place] [address] Dr. Leesa Urbina MANUAL DIFF REQ NO Normal [facility] Comment on above: Performed By: #### C BC #### [facility] [address] [place] [address] Dr. Leesa Urbina MCH (RBC) [Entitic mass] 31.0 pg Normal 25.9-34.0 [facility] Comment on above: Performed By: #### C BC #### [facility] [address] [place] [address] Dr. Leesa Urbina MCHC (RBC) [Mass/Vol] 33.5 g/dL Normal 29.9-35.2 [facility] Comment on above: Performed By: #### C BC #### [facility] [address] [place] [address] Dr. Leesa Urbina MCV (RBC) [Entitic vol] 92.5 fL Normal 80.0-94.0 [facility] Comment on above: Performed By: #### C BC #### [facility] [address] [place] [address] Dr. Leesa Urbina MONO # 0.4 103/ul Normal 0.3-0.8 [facility] Comment on above: Performed By: #### C BC #### [facility] [address] [place] [address] Dr. Leesa Urbina Monocytes/100 WBC (Bld) 6.5 % Normal 1.7-12.0 [facility] Comment on above: Performed By: #### C BC #### [facility] [address] [place] [address] Dr. Leesa Urbina NEUT # 4.0 103/ul Normal 1.4-6.5 [facility] Comment on above: Performed By: #### C BC #### [facility] [address] [address] [address] Leesa Urbina Neutrophils/100 WBC (Bld) 60.4 % Normal 43.0-75.0 [facility] Comment on above: Performed By: #### C BC #### [facility] [address] [address] [address] Leesa Urbina Platelet mean volume (Bld) [Entitic vol] 10.6 fL Normal 9.5-13.5 [facility] Comment on above: Performed By: #### C BC #### [facility] [address] [address] [address] Leesa Urbnia PLT 185 103/ul Normal 150-450 [facility] Comment on above: Performed By: #### C BC #### [facility] [address] [address] [address] Leesa Urbina RBC 3.87 106/ul Critically low 4.70-6.10 [facility] Comment on above: Performed By: #### C BC #### [facility] [address] [address] [address] Leesa Urbina WBC 6.6 103/ul Normal 4.0-11.0 [facility] Comment on above: Performed By: #### C BC #### [facility] [address] [address] [address] Leesa Urbina GLYCOHEMOGLOBIN A1Con 2021 ADA RECOMMENDATION SEE BELOW Normal [facility] Comment on above: Result Comment: ADA RECOMMENDED LIMIT 4.0 - 6.0 ADA THERAPEUTIC TARGET < 7.0 ACTION SUGGESTED > 7.0 Performed By: #### A 1C #### [facility] [address] [address] [address] Leesa Urbina Glucose [Mass/Vol] 151 mg/dL Normal [facility] Comment on above: Performed By: #### A 1C #### [facility] [address] [address] [address] Leesa Urbina HbA1c (Bld) [Mass fraction] 6.9 % Critically high 4.5-6.2 [facility] Comment on above: Performed By: #### A 1C #### [facility] [address] [address] [address] Leesa Urbina LIPID PROFILEon 05-06-2022 CHOL-HDL RATIO NORM SEE BELOW Normal [facility] Comment on above: Result Comment: 3.3 - 4.4 LOW RISK 4.4 - 7.1 AVERAGE RISK 7.1 - 11.0 MODERATE RISK >11.0 HIGH RISK Performed By: #### L IPID, TSH, CMP #### [facility] [address] [address] [address] Leesa Urbina Cholesterol [Mass/Vol] 136 mg/dL Normal <=200 [facility] Comment on above: Performed By: #### L IPID, TSH, CMP #### [facility] [address] [address] [address] Leesa Urbina Cholesterol in HDL [Mass/Vol] 62 mg/dL Critically high 40-60 [facility] Comment on above: Performed By: #### L IPID, TSH, CMP #### [facility] [address] [address] [address] Leesa Urbina Cholesterol in LDL [Mass/Vol] 53.0 mg/dL Normal [facility] Comment on above: Performed By: #### L IPID, TSH, CMP #### [facility] [address] [address] [address] Leesa Urbina Cholesterol.total/Chol esterol in HDL [Mass ratio] 2.2 {ratio} Normal [facility] Comment on above: Performed By: #### L IPID, TSH, CMP #### [facility] [address] [address] [address] Leesa Urbina HDL NORMAL > or = 60 mg/dl - LOW CARDIOVASCULAR RISK <40 mg/dl - HIGH CARDIOVASCULAR RISK Normal [facility] Comment on above: Performed By: #### L IPID, TSH, CMP #### [facility] [address] [address] [address] Leesa Urbina LDL CALC NORMAL SEE BELOW Normal [facility] Comment on above: Result Comment: <100 mg/dl OPTIMAL 100 - 129 mg/dl NEAR OR ABOVE OPTIMAL 130 - 159 mg/dl BORDERLINE HIGH 160 - 189 mg/dl HIGH >190 mg/dl VERY HIGH Performed By: #### L IPID, TSH, CMP #### [facility] [address] [address] [address] Leesa Urbina Triglyceride [Mass/Vol] 105 mg/dL Normal <=150 [facility] Comment on above: Performed By: #### L IPID, TSH, CMP #### [facility] [address] [address] [address] Leesa Urbina VLDL CALC 21.0 mg/dL Normal [facility] Comment on above: Performed By: #### L IPID, TSH, CMP #### [facility] [address] [place] [address] Dr. Leesa Urbina PROF 14(COMP METB)on 022 Albumin [Mass/Vol] 3.4 g/dL Normal 3.4-5.0 [facility] Comment on above: Performed By: #### L IPID, TSH, CMP #### [facility] [address] [place] [address] Dr. Leesa Urbina Albumin/Globulin [Mass ratio] 1.1 {ratio} Normal [facility] Comment on above: Performed By: #### L IPID, TSH, CMP #### [facility] [address] [place] [address] Dr. Leesa Urbina ALP [Catalytic activity/Vol] 77 U/L Normal 46-116 [facility] Comment on above: Performed By: #### L IPID, TSH, CMP #### [facility] [address] [place] [address] Dr. Leesa Urbina ALT [Catalytic activity/Vol] 12 U/L Critically low 16-63 [facility] Comment on above: Performed By: #### L IPID, TSH, CMP #### [facility] [address] [place] [address] Dr. Leesa Urbina Anion gap [Moles/Vol] 12.7 mmol/L Normal [facility] Comment on above: Performed By: #### L IPID, TSH, CMP #### [facility] [address] [address] [address] Leesa Urbina AST [Catalytic activity/Vol] 19 U/L Normal 15-37 [facility] Comment on above: Performed By: #### L IPID, TSH, CMP #### [facility] [address] [address] [address] Leesa Urbina Bilirubin [Mass/Vol] 0.4 mg/dL Normal 0.2-1.0 [facility] Comment on above: Performed By: #### L IPID, TSH, CMP #### [facility] [address] [address] [address] Leesa Urbina Calcium [Mass/Vol] 8.5 mg/dL Normal 8.5-10.1 [facility] Comment on above: Performed By: #### L IPID, TSH, CMP #### [facility] [address] [place] [address] Dr. Leesa Urbina Chloride [Moles/Vol] 107 mmol/L Normal 98-107 [facility] Comment on above: Performed By: #### L IPID, TSH, CMP #### [facility] [address] [address] [address] Leesa Urbina CO2 [Moles/Vol] 27.4 mmol/L Normal 21.0-32.0 [facility] Comment on above: Performed By: #### L IPID, TSH, CMP #### [facility] [address] [address] [address] Leesa Urbina Creatinine [Mass/Vol] 1.06 mg/dL Normal 0.70-1.30 [facility] Comment on above: Performed By: #### L IPID, TSH, CMP #### [facility] [address] [address] [address] Leesa Urbina EGFR-AF IRAQI >60 Normal >=60 [facility] Comment on above: Performed By: #### L IPID, TSH, CMP #### [facility] [address] [address] [address] Leesa Urbina EGFR-NON AF IRAQI >60 Normal >=60 [facility] Comment on above: Performed By: #### L IPID, TSH, CMP #### [facility] [address] [address] [address] Leesa Urbina Globulin (S) [Mass/Vol] 3.1 g/dL Normal [facility] Comment on above: Performed By: #### L IPID, TSH, CMP #### [facility] [address] [address] [address] Leesa Urbina Glucose [Mass/Vol] 171 mg/dL Critically high 74-106 [facility] Comment on above: Performed By: #### L IPID, TSH, CMP #### [facility] [address] [address] [address] Leesa Urbina Potassium [Moles/Vol] 4.1 mmol/L Normal 3.5-5.1 [facility] Comment on above: Performed By: #### L IPID, TSH, CMP #### [facility] [address] [place] [address] Dr. Leesa Urbina Protein [Mass/Vol] 6.5 g/dL Normal 6.4-8.2 [facility] Comment on above: Performed By: #### L IPID, TSH, CMP #### [facility] [address] [place] [address] Dr. Leesa Urbina Sodium [Moles/Vol] 143 mmol/L Normal 136-145 [facility] Comment on above: Performed By: #### L IPID, TSH, CMP #### [facility] [address] [address] [address] Leesa Urbina Urea nitrogen [Mass/Vol] 24.0 mg/dL Critically high 7.0-18.0 [facility] Comment on above: Performed By: #### L IPID, TSH, CMP #### [facility] [address] [place] [address] Dr. Leesa Urbina Urea nitrogen/Creatinine [Mass ratio] 22.6 mg/mg Normal [facility] Comment on above: Performed By: #### L IPID, TSH, CMP #### [facility] [address] [place] [address] Dr. Leesa Urbina Basophils Auto (Bld) [#/Vol] Ordered By: Juan Ventura on 12-05-2021 Basophils (Bld) [#/Vol] 0.1 10*3/uL 0.0-0.2 [facility] Basophils/100 WBC Auto (Bld) Ordered By: Juan Ventura on 12-05-2021 Basophils/100 WBC (Bld) 0.9 % [facility] Blood hemoglobin measurement (mass/volume)Ordered By: Juan Ventura on 12-05-2021 Hemoglobin (Bld) [Mass/Vol] 12.4 g/dL 13.0-17.0 [facility] Blood leukocytes automated c ount (number/volume)Ordered By: Juan Ventura on 12-05-2021 WBC (Bld) [#/Vol] 7.0 10*3/uL 4.5-11.0 [facility] COVID-19 Positive/NegativeOr dered By: Juan Ventura on 12-05-2021 SARS-CoV-2 (COVID-19) N gene RENETTA+probe Ql (Resp) Negative Negative [facility] Comment on above: Testing for SARS-CoV -2 by RT-PCR This test was developed and its performance characteristics determined by [employer] ([employer]) and validated at the [facility]. This test has not been [...] 12-05-2021 Eosinophils (Bld) [#/Vol] 0.1 10*3/uL 0.0-0.45 [facility] Eosinophils/100 WBC Auto (Bl d)Ordered By: Juan Ventura on 12-05-2021 Eosinophils/100 WBC (Bld) 2.1 % [facility] Erythrocyte distribution wid th Auto (RBC) [Ratio]Ordered By: Juan Ventura on 12-05-2021 Erythrocyte distribution width (RBC) [Ratio] 14.6 % 12.0-14.8 [facility] Estimated glomerular filtrat ion rate (GFR) non- AmericanOrdered By: Juan Ventura on 12-05-2021 GFR/1.73 sq M.predicted among non-blacks MDRD (S/P/Bld) [Vol rate/Area] 54 mL/Min [facility] Hematocrit Auto (Bld) [Volum e fraction]Ordered By: Juan Ventura on 12-05-2021 Hematocrit (Bld) [Volume fraction] 37.3 % 38.8-50.0 [facility] Laboratory - Hematology and Cell countsOrdered By: Juan Ventura on 12-05-2021 Nucleated RBC/100 WBC (Bld) [Ratio] 0.0 % 0-0.5 [facility] Lymphocytes Auto (Bld) [#/Vo l]Ordered By: Juan Ventura on 12-05-2021 Lymphocytes (Bld) [#/Vol] 1.4 10*3/uL 1.00-4.8 [facility] Lymphocytes/100 WBC Auto (Bl d)Ordered By: Juan Ventura on 12-05-2021 Lymphocytes/100 WBC (Bld) 19.8 % [facility] MCH Auto (RBC) [Entitic mass ]Ordered By: Juan Ventura on 12-05-2021 MCH (RBC) [Entitic mass] 30.8 pg 27.5-35.2 [facility] MCHC Auto (RBC) [Mass/Vol]Or dered By: Juan Ventura on 12-05-2021 MCHC (RBC) [Mass/Vol] 33.1 g/dL 32.5-35.6 [facility] MCV Auto (RBC) [Entitic vol] Ordered By: Juan Ventura on 12-05-2021 MCV (RBC) [Entitic vol] 93.1 fL 83.5-101 [facility] Monocytes Auto (Bld) [#/Vol] Ordered By: Juan Ventura on 12-05-2021 Monocytes (Bld) [#/Vol] 0.5 10*3/uL 0.0-0.8 [facility] Monocytes/100 WBC Auto (Bld) Ordered By: Juan Ventura on 12-05-2021 Monocytes/100 WBC (Bld) 7.3 % [facility] Neutrophils Auto (Bld) [#/Vo l]Ordered By: Juan Ventura on 12-05-2021 Neutrophils (Bld) [#/Vol] 4.9 10*3/uL 1.8-7.7 [facility] Neutrophils/100 WBC Auto (Bl d)Ordered By: Juan Ventura on 12-05-2021 Neutrophils/100 WBC (Bld) 69.9 % [facility] No Panel InformationOrdered By: Juan Ventura on 12-05-2021 Estimated GFR () > 60 mL/Min [facility] Comment on above: GFR estimated refere nce range: According to KDOQI guidelines, <60 ml/min/1.73m2 is sufficient to diagnose a patient with chronic kidney disease. Pharmacy Creatinine Clearance (Chem N/A [facility] Platelet mean volume Auto (B ld) [Entitic vol]Ordered By: Juan Ventura on 12-05-2021 Platelet mean volume (Bld) [Entitic vol] 8.9 fL 6.6-10.1 [facility] Platelets Auto (Bld) [#/Vol] Ordered By: Juan Ventura on 12-05-2021 Platelets (Bld) [#/Vol] 194 10*3/uL 150-450 [facility] RBC Auto (Bld) [#/Vol]Ordere d By: Juan Ventura on 12-05-2021 RBC (Bld) [#/Vol] 4.00 10*6/uL 3.90-5.60 [facility] Serum or plasma calcium fco urement (mass/volume)Ordered By: Juan Ventura on 12-05-2021 Calcium [Mass/Vol] 9.2 mg/dL 8.2-10.2 [facility] Serum or plasma chloride daniel surement (moles/volume)Ordered By: Juan Ventura on 12-05-2021 Chloride [Moles/Vol] 107 mmol/L 95-114 [facility] Serum or plasma glucose fco urement (mass/volume)Ordered By: Juan Ventura on 12-05-2021 Glucose [Mass/Vol] 117 mg/dL 70-100 [facility] Comment on above: ADA recommended refe rence [...] on 12-05-2021 Sodium [Moles/Vol] 141 mmol/L 136-146 [facility] Serum or plasma total carbon dioxide measurement (moles/volume)Ordered By: Juan Ventura on 12-05-2021 CO2 [Moles/Vol] 26.2 mmol/L 22.0-30.0 [facility] Serum or plasma urea nitroge n measurement (mass/volume)Ordered By: Juan Ventura on 12-05-2021 Urea nitrogen [Mass/Vol] 23 mg/dL 9-23 [facility] CBC AUTO DIFFon 11-05-2021 BASO # 0.1 103/ul Normal 0.0-0.1 [facility] Comment on above: Performed By: #### C BC #### [facility] [address] [place] [address] Dr. Leesa Urbina Basophils/100 WBC (Bld) 0.8 % Normal 0.2-2.0 [facility] Comment on above: Performed By: #### C BC #### [facility] [address] [place] [address] Dr. Leesa Urbina EO # 0.4 103/ul Normal 0.0-0.7 [facility] Comment on above: Performed By: #### C BC #### [facility] [address] [place] [address] Dr. Leesa Urbina Eosinophils/100 WBC (Bld) 5.6 % Normal 0.9-7.0 [facility] Comment on above: Performed By: #### C BC #### [facility] [address] [place] [address] Dr. Leesa Urbina Erythrocyte distribution width (RBC) [Ratio] 13.4 % Normal 11.0-15.0 [facility] Comment on above: Performed By: #### C BC #### [facility] [address] [place] [address] Dr. Leesa Urbina Hematocrit (Bld) [Volume fraction] 36.1 % Critically low 42.0-54.0 [facility] Comment on above: Performed By: #### C BC #### [facility] [address] [place] [address] Dr. Leesa Urbina Hemoglobin (Bld) [Mass/Vol] 11.8 g/dL Critically low 14.0-18.0 [facility] Comment on above: Performed By: #### C BC #### [facility] [address] [place] [address] Dr. Leesa Urbina IG # 0.02 10e3/ul Normal 0.00-0.03 [facility] Comment on above: Performed By: #### C BC #### [facility] [address] [place] [address] Dr. Leesa Urbina IG % 0.3 % Normal 0.0-0.5 [facility] Comment on above: Performed By: #### C BC #### [facility] [address] [place] [address] Dr. Leesa Urbina LYMPH # 1.8 103/ul Normal 1.2-3.8 [facility] Comment on above: Performed By: #### C BC #### [facility] [address] [place] [address] Dr. Leesa Urbina Lymphocytes/100 WBC (Bld) 28.4 % Normal 20.5-60.0 [facility] Comment on above: Performed By: #### C BC #### [facility] [address] [place] [address] Dr. Leesa Urbina MANUAL DIFF REQ NO Normal [facility] Comment on above: Performed By: #### C BC #### [facility] [address] [place] [address] Dr. Leesa Urbina MCH (RBC) [Entitic mass] 30.7 pg Normal 25.9-34.0 [facility] Comment on above: Performed By: #### C BC #### [facility] [address] [place] [address] Dr. Leesa Urbina MCHC (RBC) [Mass/Vol] 32.7 g/dL Normal 29.9-35.2 [facility] Comment on above: Performed By: #### C BC #### [facility] [address] [place] [address] Dr. Leesa Urbina MCV (RBC) [Entitic vol] 94.0 fL Normal 80.0-94.0 [facility] Comment on above: Performed By: #### C BC #### [facility] [address] [place] [address] Dr. Leesa Urbina MONO # 0.5 103/ul Normal 0.3-0.8 [facility] Comment on above: Performed By: #### C BC #### [facility] [address] [place] [address] Dr. Leesa Urbina Monocytes/100 WBC (Bld) 8.1 % Normal 1.7-12.0 [facility] Comment on above: Performed By: #### C BC #### [facility] [address] [address] [address] Leesa Urbina NEUT # 3.5 103/ul Normal 1.4-6.5 [facility] Comment on above: Performed By: #### C BC #### [facility] [address] [address] [address] Leesa Urbina Neutrophils/100 WBC (Bld) 56.8 % Normal 43.0-75.0 [facility] Comment on above: Performed By: #### C BC #### [facility] [address] [address] [address] Leesa Urbina Platelet mean volume (Bld) [Entitic vol] 10.3 fL Normal 9.5-13.5 [facility] Comment on above: Performed By: #### C BC #### [facility] [address] [place] [address] Dr. Leesa Urbina PLT 179 103/ul Normal 150-450 [facility] Comment on above: Performed By: #### C BC #### [facility] [address] [address] [address] Leesa Urbina RBC 3.84 106/ul Critically low 4.70-6.10 [facility] Comment on above: Performed By: #### C BC #### [facility] [address] [address] [address] Leesa Urbina WBC 6.2 103/ul Normal 4.0-11.0 [facility] Comment on above: Performed By: #### C BC #### [facility] [address] [address] [address] Leesa Urbina GLYCOHEMOGLOBIN A1Con 2021 ADA RECOMMENDATION SEE BELOW Normal [facility] Comment on above: Result Comment: ADA RECOMMENDED LIMIT 4.0 - 6.0 ADA THERAPEUTIC TARGET < 7.0 ACTION SUGGESTED > 7.0 Performed By: #### L IPID TSH, CMP #### [facility] [address] [address] [address] Leesa Urbina Glucose [Mass/Vol] 151 mg/dL Normal [facility] Comment on above: Performed By: #### L IPID TSH, CMP #### [facility] [address] [address] [address] Leesa Urbina HbA1c (Bld) [Mass fraction] 6.9 % Critically high 4.5-6.2 [facility] Comment on above: Performed By: #### L IPID, TSH, CMP #### [facility] [address] [address] [address] Leesa Urbina LIPID PROFILEon 11-05-2021 CHOL-HDL RATIO NORM SEE BELOW Normal [facility] Comment on above: Result Comment: 3.3 - 4.4 LOW RISK 4.4 - 7.1 AVERAGE RISK 7.1 - 11.0 MODERATE RISK >11.0 HIGH RISK Performed By: #### L IPID, TSH, CMP #### [facility] [address] [place] [address] Dr. Leesa Urbina Cholesterol [Mass/Vol] 150 mg/dL Normal <=[address] [facility] Comment on above: Performed By: #### L IPID, TSH, CMP #### [facility] [address] [address] [address] Leesa Urbina Cholesterol in HDL [Mass/Vol] 60 mg/dL Normal 40-60 [facility] Comment on above: Performed By: #### L IPID, TSH, CMP #### [facility] [address] [place] [address] Dr. Leesa Urbina Cholesterol in LDL [Mass/Vol] 70.8 mg/dL Normal [facility] Comment on above: Performed By: #### L IPID, TSH, CMP #### [facility] [address] [address] [address] Leesa Urbina Cholesterol.total/Chol esterol in HDL [Mass ratio] 2.5 {ratio} Normal [facility] Comment on above: Performed By: #### L IPID, TSH, CMP #### [facility] [address] [place] [address] Dr. Leesa Urbina HDL NORMAL > or = 60 mg/dl - LOW CARDIOVASCULAR RISK <40 mg/dl - HIGH CARDIOVASCULAR RISK Normal [facility] Comment on above: Performed By: #### L IPID, TSH, CMP #### [facility] [address] [address] [address] Leesa Urbina LDL CALC NORMAL SEE BELOW Normal [facility] Comment on above: Result Comment: <100 mg/dl OPTIMAL 100 - 129 mg/dl NEAR OR ABOVE OPTIMAL 130 - 159 mg/dl BORDERLINE HIGH 160 - 189 mg/dl HIGH >190 mg/dl VERY HIGH Performed By: #### L IPID, TSH, CMP #### [facility] [address] [address] [address] Leesa Urbina Triglyceride [Mass/Vol] 96 mg/dL Normal <=150 [facility] Comment on above: Performed By: #### L IPID, TSH, CMP #### [facility] [address] [place] [address] Dr. Leesa Urbina VLDL CALC 19.2 mg/dL Normal [facility] Comment on above: Performed By: #### L IPID, TSH, CMP #### [facility] [address] [place] [address] Dr. Leesa Urbina MICROALB CREAT RATIO RANDOMo n 11-05-2021 mALB <1.3 Normal <=30.0 [facility] Comment on above: Performed By: #### L IPID, TSH, CMP #### [facility] [address] [place] [address] Dr. Leesa Urbina MALB CR RATIO 11.4 mg/g Normal 0.0-29.9 [facility] Comment on above: Performed By: #### L IPID, TSH, CMP #### [facility] [address] [place] [address] Dr. Leesa Urbina MALB CR RATIO RANGE SEE BELOW Normal [facility] Comment on above: Result Comment: NO M ICROALBUMINURIA 0-29 MG/G CLINICAL MICROALBUMINURIA 30-300 MG/G MACROALBUMINURIA >300 MG/G Performed By: #### L IPID, TSH, CMP #### [facility] [address] [place] [address] Dr. Leesa Urbina URINE CREAT 114.03 mg/dL Normal 20.00-300.00 [facility] Comment on above: Performed By: #### L IPID, TSH, CMP #### [facility] [address] [place] [address] Dr. Leesa Urbina PROF 14(COMP METB)on 022 Albumin [Mass/Vol] 2.3 g/dL Critically low 3.4-5.[address] [facility] Comment on above: Performed By: #### L IPID, TSH, CMP #### [facility] [address] [place] [address] Dr. Leesa Urbina Albumin/Globulin [Mass ratio] 0.5 {ratio} Normal [facility] Comment on above: Performed By: #### L IPID, TSH, CMP #### [facility] [address] [place] [address] Dr. Leesa Urbina ALP [Catalytic activity/Vol] 77 U/L Normal 46-116 [facility] Comment on above: Performed By: #### L IPID, TSH, CMP #### [facility] [address] [place] [address] Dr. Leesa Urbina ALT [Catalytic activity/Vol] 16 U/L Normal 16-63 [facility] Comment on above: Performed By: #### L IPID, TSH, CMP #### [facility] [address] [place] [address] Dr. Leesa Urbina Anion gap [Moles/Vol] 13.8 mmol/L Normal [facility] Comment on above: Performed By: #### L IPID, TSH, CMP #### [facility] [address] [place] [address] Dr. Leesa Urbina AST [Catalytic activity/Vol] 15 U/L Normal 15-37 [facility] Comment on above: Performed By: #### L IPID, TSH, CMP #### [facility] [address] [place] [address] Dr. Leesa Urbina Bilirubin [Mass/Vol] 0.5 mg/dL Normal 0.2-1.0 [facility] Comment on above: Performed By: #### L IPID, TSH, CMP #### [facility] [address] [place] [address] Dr. Leesa Urbina Calcium [Mass/Vol] 8.7 mg/dL Normal 8.5-10.1 [facility] Comment on above: Performed By: #### L IPID, TSH, CMP #### [facility] [address] [address] [address] Leesa Urbina Chloride [Moles/Vol] 107 mmol/L Normal 98-107 [facility] Comment on above: Performed By: #### L IPID, TSH, CMP #### [facility] [address] [address] [address] Leesa Urbina CO2 [Moles/Vol] 26.2 mmol/L Normal 21.0-32.0 [facility] Comment on above: Performed By: #### L IPID, TSH, CMP #### [facility] [address] [place] [address] Dr. Leesa Urbina Creatinine [Mass/Vol] 1.25 mg/dL Normal 0.70-1.30 [facility] Comment on above: Performed By: #### L IPID, TSH, CMP #### [facility] [address] [place] [address] Dr. Leesa Urbina EGFR-AF IRAQI >60 Normal >=60 [facility] Comment on above: Performed By: #### L IPID, TSH, CMP #### [facility] [address] [place] [address] Dr. Leesa Urbina EGFR-NON AF IRAQI 55 mL/min/1.73m2 Critically low >=60 [facility] Comment on above: Performed By: #### L IPID, TSH, CMP #### [facility] [address] [place] [address] Dr. Leesa Urbina Globulin (S) [Mass/Vol] 4.3 g/dL Normal [facility] Comment on above: Performed By: #### L IPID, TSH, CMP #### [facility] [address] [place] [address] Dr. Leesa Urbina Glucose [Mass/Vol] 137 mg/dL Critically high 74-106 [facility] Comment on above: Performed By: #### L IPID, TSH, CMP #### [facility] [address] [address] [address] Leesa Urbina Potassium [Moles/Vol] 4.0 mmol/L Normal 3.5-5.1 [facility] Comment on above: Performed By: #### L IPID, TSH, CMP #### [facility] [address] [place] [address] Dr. Leesa Urbina Protein [Mass/Vol] 6.6 g/dL Normal 6.4-8.2 [facility] Comment on above: Performed By: #### L IPID, TSH, CMP #### [facility] [address] [place] [address] Dr. Leesa Urbina Sodium [Moles/Vol] 143 mmol/L Normal 136-145 [facility] Comment on above: Performed By: #### L IPID, TSH, CMP #### [facility] [address] [place] [address] Dr. Leesa Urbina Urea nitrogen [Mass/Vol] 24.0 mg/dL Critically high 7.0-18.0 [facility] Comment on above: Performed By: #### L IPID, TSH, CMP #### [facility] [address] [place] [address] Dr. Leesa Urbina Urea nitrogen/Creatinine [Mass ratio] 19.2 mg/mg Normal [facility] Comment on above: Performed By: #### L IPID, TSH, CMP #### [facility] [address] [place] [address] Dr. Leesa Urbina TSHon 11-05-2021 TSH 0.996 uIU/mL Normal 0.358-3.740 [facility] Comment on above: Performed By: #### L IPID, TSH, CMP #### [facility] [address] [place] [address] Dr. Leesa Urbina Tobacco Screening.on 022 Adult depression screening assessment No [facility] 250 DO Work Phone: Fall risk assessment a) No falls within the last year [facility] 250 DO Work Phone: Tobacco use status [facility] b) No [facility] 250 DO Work Phone: Social History Date Type Detail Facility Start: 07-13-2023 Never a smoker Never a smoker [facility] 250 DO Work Phone: Comment on above: 2-3 drinks a month; Start: 07-13-2023 Sex Assigned At [facility] [employer] Other Start: 07-13-2023 Tobacco use and exposure Smokeless tobacco non-user [facility] Work Phone: Start: 07-13-2023 Alcohol intake Lifetime non-d joe (finding) [facility] Work Phone: Start: 07-03-2023 End: 07-13-2023 Exposure to SARS-CoV-2 (event) Not sure [facility] Start: 12-05-2021 End: 12-24-2022 Tobacco smoking status NHIS Ex-smoker (finding) [facility] Start: 1940 Sex Assigned At Male [facility] Start: 1940 Sex Assigned At Not on file U [facility] Work Phone: Tobacco smoking status [facility] Unknown if ever smoked [facility] End: 05-24-1989 History of tobacco use Current smoker [facility] Work Phone: End: 05-24-1989 History of tobacco use Cigarette Smoker [facility] Work Phone: Vital Signs Date Time Vital Sign Value Performing Clinician Facility 07-13-2023 08:34-0500 Body height 180.3 cm Dev Camp MD Work Phone: [facility] 07-13-2023 08:34-0500 Body mass index (BMI) [Ratio] 23.99 kg/m2 Dev Camp MD Work Phone: [facility] 07-13-2023 08:34-0500 Body weight 78.02 kg Dev Camp MD Work Phone: [facility] 07-13-2023 08:34-0500 Diastolic blood pressure 64 mm[Hg] Dev Camp MD Work Phone: [facility] 07-13-2023 08:34-0500 Heart rate 60 /min Dev Camp MD Work Phone: [facility] 07-13-2023 08:34-0500 Systolic blood pressure 108 mm[Hg] Dev Camp MD Work Phone: [facility] 11-17-2022 14:15-0400 Body height 180.34 cm Imad Asaad Other [employer] Other 11-17-2022 14:15-0400 Body mass index (BMI) [Ratio] 23.71 kg/m2 Imad Asaad Other [employer] Other 11-17-2022 14:15-0400 Body weight 77.11 kg Imad Asaad Other [employer] Other 11-17-2022 14:15-0400 Diastolic blood pressure 78 mm[Hg] Imad Asaad Other [employer] Other 11-17-2022 14:15-0400 Systolic blood pressure 127 mm[Hg] Imad Asaad Other [employer] Other 07-14-2022 09:08-0500 Body height 180.34 cm Gabriel Bello Work Phone: [employer] 250 DO Work Phone: 07-14-2022 09:08-0500 Body mass index (BMI) [Ratio] 24.13 kg/m2 Gabriel Bello Work Phone: [facility] DO Work Phone: 07-14-2022 09:08-0500 Body surface area Derived from formula 1.98 m2 Gabriel Bello Work Phone: [facility] 250 DO Work Phone: 07-14-2022 09:08-0500 Body weight 78.47 kg Gabriel Bello Work Phone: [facility] 250 DO Work Phone: 07-14-2022 09:08-0500 Diastolic blood pressure 78 mm[Hg] Gabriel Bello Work Phone: [facility] 250 DO Work Phone: 07-14-2022 09:08-0500 Heart rate 68 /min Gabriel Bello Work Phone: [facility] 250 DO Work Phone: 07-14-2022 09:08-0500 Systolic blood pressure 124 mm[Hg] Gabriel Bello Work Phone: [facility] 250 DO Work Phone: 07-03-2021 15:20-0500 Diastolic blood pressure 78 mm[Hg] Gabriel Bello Work Phone: [facility] 250 DO Work Phone: 07-03-2021 15:20-0500 Heart rate 65 /min Gabriel Bello Work Phone: [facility] 250 DO Work Phone: 07-03-2021 15:20-0500 Systolic blood pressure 136 mm[Hg] Gabriel Bello Work Phone: [facility] 250 DO Work Phone: 07-03-2021 15:17-0500 Body height 180.34 cm Gabriel Bello Work Phone: [facility] 250 DO Work Phone: 07-03-2021 15:17-0500 Body mass index (BMI) [Ratio] 24.97 kg/m2 Gabriel Bello Work Phone: [facility] [employer] 250 DO Work Phone: 07-03-2021 15:17-0500 Body surface area Derived from formula 2.01 m2 Gabriel Bello Work Phone: [facility] [employer] 250 DO Work Phone: 07-03-2021 15:17-0500 Body weight 81.19 kg Gabriel Bello Work Phone: [facility] [employer] 250 DO Work Phone: 07-03-2021 15:17-0500 Diastolic blood pressure 80 mm[Hg] Gabriel Bello Work Phone: [facility] [employer] 250 DO Work Phone: 07-03-2021 15:17-0500 Systolic blood pressure 151 mm[Hg] Gabriel Bello Work Phone: [facility] [employer] 250 DO Work Phone: History of Present illness Narrative 07-13-2023 Dev Camp MD - 07/13/2023 8:50 AM EST Note Date & Type Note Facility 07-13-2023 History of Present illness Narrative Subjective Dev Nico is a 83 y.o. male Chief Complaint [...] by mouth once daily., Disp: , Rfl: [id number] (Creon) 24,000-76,000 -120,000 unit capsule, Take 1 [...] By signing my name below, Marisa Edwards LPN, Scribe attest that this documentation has been [...] discussion and plan. documented in this encounter [facility] Work Phone: Instructions 07-13-2023 Patient Instructions Note [...] of your visit. documented in this encounter [facility] Work Phone: Evaluation note 11-17-2022 Note Date & Type Note Facility 11-17-2022 Evaluation note Encounter Date Diagnosis Assessment Notes Oct, Change in bowel habits (ICD-10 - R19.4) Oct, Diverticulosis (ICD-10 - K57.90) Oct, IBS (irritable bowel syndrome) (ICD-10 - K58.9) Oct, Pancreatic insufficiency (ICD-10 - K86.89) [employer] Other History of Present illness Narrative 07-14-2022 [...] necessary and we suggest follow-up next year -[facility] 250 DO Work Phone: Evaluation note Note Date & Type Note Facility Evaluation note No assessment information [facility] Work Phone: Evaluation note Note Date & Type Note Facility Evaluation note No Information [facility] [employer] Other Evaluation note Note Date & Type Note Facility Evaluation note Diagnosis Benign essential hypertension- Primary Essential hypertension, benign Mixed hyperlipidemia Paroxysmal atrial fibrillation (CMS/HCC) Atrial fibrillation Former smoker Personal history of tobacco use, presenting hazards to health documented in this encounter [facility] Work Phone: History general Narrative - Reported [...] History Right cataract surge ry per in [place], [place]. 10-28-17 Surgical History Mohs repair / left upper lip Hospitalization History see above [employer] Other History of Present illness Narrative Note [...] suggest continued therapy as before without change. -[facility] 250 DO Work Phone: Advance Directives No [...] ECG 12 Lead Dev Camp MD [address] [place] [address], [address] [address] Referral ID Status Reason Start Date Expiration Date V isits Requested Visits Authorized [id number] Authorized 07/13/2023 07/12/2024 1 1 Specialty Diagnoses / Procedures Referred By Contac t Referred To Contact Cardiology Diagnoses Paroxysmal atrial fibrillation (CMS/HCC) Procedures Follow Up In Cardiology Dev Camp MD [address] [place] [address], [place] [phone] Dev Camp MD [address] [place] [address], [place] [phone] Referral ID Status Reason Start Date Expiration Date V isits Requested Visits Authorized [id number] Authorized 07/13/2023 07/12/2024 1 1 Additional Source [...] Active Jj Garcia MD Attending Provider Active Contract Attorney Relationship Specialty Start Date End Date Gabriel Bello DO [address] [place] [address] PCP - General 05/24/99 Team Status: Inactive [...] section and content) DATE CREATED AUTHOR 07/15/2022 [facility] DATE CREATED AUTHOR AUTHOR'S ORGANIZ ATION 07/15/2022 [employer] DATE CREATED AUTHOR AUTHOR'S ORGANIZ ATION 09/10/2022 [facility] DATE CREATED AUTHOR AUTHOR'S ORGANIZ ATION 07/14/2023 [facility] DATE CREATED AUTHOR AUTHOR'S ORGANIZ ATION 09/18/2023 [facility] DATE CREATED AUTHOR AUTHOR'S ORGANIZ ATION 11/15/2023 [facility] dical Specialists EPIC REASON FOR VISIT (unrecogniz ed section and content) Reason Comments Annual Exam Specialty Diagnoses / Procedures Referred By Contac t Referred To Contact Diagnoses Paroxysmal atrial fibrillation (CMS/HCC) Procedures ECG 12 Lead Dev Camp MD [address] [facility] [address], [facility] [address] [place] [address] Referral ID Status Reason Start Date Expiration Date V isits Requested Visits Authorized [id number] Authorized 07/13/2023 07/12/2024 1 1 FOR RECORDS [...] BE BASED ON THE PRIMARY CLINICAL RECORDS. [facility] [employer] [facility]. provides no warranty or guarantee of the accuracy or completeness of information in this document.
--- NOTE | 2023-12-26 18:31 | ED.ARRPALP1 ---
HPI - Arrhythmia/Palpitations General Chief Complaint: Arrhythmia/Palpitations Stated Complaint: Palpitations, Shortness of Breath Time Seen by Provider: 12/26/23 18:10 Source: patient Mode of arrival: walk-in History of Present Illness HPI narrative: Patient presents to ED complaining of Heart palpitations. He was here about a month or so ago after a syncopal episode. He has been doing fine ever since and his workup at that time was normal. He did follow-up with his family doctor who said everything was looking fine. He has a history of A-fib but he only had 1 episode about 5 years ago. Does have prostate cancer and he started on a new medication for that about 2 months ago which can potentiate A-fib. Patient states he did not have a syncopal episode today but did get lightheaded and he could feel that his heart was having palpitations. He said every once in a while he will have some skipped beats but this felt more consistent and frequent than normal. No chest pain no shortness of breath. He came into ED for further evaluation. Related Data Home Medications ?Medication ?Instructions ?Recorded ?Confirmed rivaroxaban 20 mg tablet (Xarelto) 20 mg PO DAILY 09/29/23 09/29/23 Allergies Allergy/AdvReac Type Severity Reaction Status Date / Time Sulfa (Sulfonamide Allergy Severe Hives Verified 09/29/23 16:38 Antibiotics) Review of Systems ROS Status of ROS 10 or more systems reviewed and unremarkable except as noted in history and below Exam Narrative Exam Narrative: Time Seen: [] Vital Signs: [Per nurse's notes.] General: [Alert] Skin: [Warm, dry, no rash.] Head: [Normocephalic, atraumatic.] Neck: [Supple, trachea midline.] Eye: [Pupils are equal, round and reactive to light, extraocular movements are intact, normal conjunctiva.] Ears, nose, mouth and throat: oral mucosa moist. Cardiovascular: Irregularly irregular, tachycardia no murmur.] Respiratory: [Lungs are clear to auscultation, respirations are non-labored, breath sounds are equal.] Chest wall: [No tenderness, no deformity.] Gastrointestinal: [Soft, nontender, non distended, normal bowel sounds.] MSK: 5 out of 5 muscle strength x 4 extremities no calf pain or edema Lymphatics: [No lymphadenopathy.] Psychiatric: [Cooperative, appropriate mood & affect.] Neurological: [Alert and oriented to person, place, time, and situation, no focal neurological deficit observed.] Constitutional Vital Signs, click to edit/add: Last Vital Signs Temp 97.9 F 12/26/23 18:09 Pulse 68 12/26/23 21:00 Resp 24 H 12/26/23 19:15 BP 158/93 H 12/26/23 21:00 Pulse Ox 96 12/26/23 20:50 O2 Del Method Room Air 12/26/23 18:26 Course Vital Signs Vital signs: Vital Signs Temperature 97.9 F 12/26/23 18:09 Pulse Rate 146 H 12/26/23 18:09 Respiratory Rate 20 12/26/23 18:09 Blood Pressure 168/96 H 12/26/23 18:09 Pulse Oximetry 96 12/26/23 18:09 Oxygen Delivery Method Room Air 12/26/23 18:09 Temperature 97.9 F 12/26/23 18:09 Pulse Rate 68 12/26/23 21:00 Respiratory Rate 24 H 12/26/23 19:15 Blood Pressure 158/93 H 12/26/23 21:00 Pulse Oximetry 96 12/26/23 20:50 Oxygen Delivery Method Room Air 12/26/23 18:26 MDM - Arrhythmia/Palpitations MDM Narrative Medical decision making narrative: care transferred at change of shift. Past history of A. fib and is on Xarelto. Treated by Dr Fulton with on dose of 5mg betablocker and he converted to NSR and remained there. 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 Lab Data Attestation: I reviewed the patient's lab results. Labs: Lab Results 12/26/23 12/26/23 Range/Units 18:19 20:10 WBC 9.7 (4.0-11.0) 10^3/uL RBC 4.29 L (4.70-6.10) 10^6/uL Hgb 13.3 L (14.0-18.0) g/dL Hct 39.8 L (42.0-54.0) % MCV 92.8 (80.0-94.0) fL MCH 31.0 (25.9-34.0) pg MCHC 33.4 (29.9-35.2) g/dL RDW 13.6 (11.0-15.0) % Plt Count 158 (150-450) 10^3/uL MPV 11.5 (9.5-13.5) fL Neut % (Auto) 68.6 (43.0-75.0) % Lymph % (Auto) 22.7 (20.5-60.0) % [place] % (Auto) 6.1 (1.7-12.0) % Eos % (Auto) 1.4 (0.9-7.0) % Baso % (Auto) 0.9 (0.2-2.0) % Neut # (Auto) 6.7 H (1.4-6.5) 10^3/uL Lymph # (Auto) 2.2 (1.2-3.8) 10^3/uL [place] # (Auto) 0.6 (0.3-0.8) 10^3/uL Eos # (Auto) 0.1 (0.0-0.7) 10^3/uL Baso # (Auto) 0.1 (0.0-0.1) 10^3/uL Abs Immat Gran (auto) 0.03 (0.00-0.03) 10^3/uL Imm/Tot Granulo (auto) 0.3 (0.0-0.5) % Sodium 137 (136-145) mmol/L Potassium 3.6 (3.5-5.1) mmol/L Chloride 102 (98-107) mmol/L Carbon Dioxide 23.0 (21.0-32.0) mmol/L Anion Gap 15.6 BUN 28.0 H (7.0-18.0) mg/dL Creatinine 1.25 (0.70-1.30) mg/dL Est GFR ( Amer) >60 (>=60) Est GFR (Non-Af Amer) 55 L (>=60) BUN/Creatinine Ratio 22.4 Glucose 239 H (74-106) mg/dL Calcium 8.9 (8.5-10.1) mg/dL Total Bilirubin 0.5 (0.2-1.0) mg/dL AST 48 H (15-37) U/L ALT 87 H (16-63) U/L Alkaline Phosphatase 112 (46-116) U/L Troponin I High Sens 23.3 26.8 (4.0-76.1) pg/mL Total Protein 7.0 (6.4-8.2) g/dL Albumin 3.6 (3.4-5.0) g/dL Globulin 3.4 g/dL Albumin/Globulin Ratio 1.1 ECG Data Attestation: I personally reviewed and interpreted this ECG as follows: Interpretation: EKG INTERPRETATION Time: []1812 Rate: []150 Rhythm: _ []A-fib RVR ST segments: _ []No acute ST elevation or depression T waves: _ [] Ectopy: _ [] P wave/[place] interval: _ [] QRS interval: _ [] QT interval: _ [] Comparison: _ [] Comparison EKG date: [] Performed by: [self] Discharge Plan Discharge Stand Alone Forms: Portal Instructions Chief Complaint: Arrhythmia/Palpitations Clinical Impression: Atrial fibrillation Patient Disposition: Home, Self-Care Prescriptions / Home Meds: No Action Xarelto 20 mg tablet 20 mg PO DAILY Print Language: Estonian Instructions: A-fib (Atrial Fibrillation) (ED) Additional Instructions: follow up with your floriculture professor next week Referrals: GABRIEL BELLO [Primary Care Provider] - 1 week
[2023-12-26] MEDS: METOPROLOL TARTRATE 5 MG/5 ML VIAL IVP (18:34)
[2023-12-26] MEDS: 0.9 % SODIUM CHLORIDE 1,000 ML 1000 ML IV (18:35)
[2023-12-26 18:41] LABS: Basophils Absolute Auto 0.1 10^3/uL (0.0-0.1); Basophils Percent Auto 0.9 % (0.2-2.0); Eosinophils Absolute Auto 0.1 10^3/uL (0.0-0.7); Eosinophils Percent Auto 1.4 % (0.9-7.0); Hematocrit 39.8 % (42.0-54.0); Hemoglobin 13.3 g/dL (14.0-18.0); Immature Granulocytes Abs Auto 0.03 10^3/uL (0.00-0.03); Immature Granulocytes Pct Auto 0.3 % (0.0-0.5); Lymphocytes Absolute Auto 2.2 10^3/uL (1.2-3.8); Lymphocytes Percent Auto 22.7 % (20.5-60.0); Mean Corpuscular HGB Conc 33.4 g/dL (29.9-35.2); Mean Corpuscular Volume 92.8 fL (80.0-94.0); Mean Platelet Volume 11.5 fL (9.5-13.5); Monocytes Absolute Auto 0.6 10^3/uL (0.3-0.8); Monocytes Percent Auto 6.1 % (1.7-12.0); Neutrophils Absolute Auto 6.7 10^3/uL (1.4-6.5); Neutrophils Percent Auto 68.6 % (43.0-75.0); Platelet Count 158 10^3/uL (150-450); Red Blood Count 4.29 10^6/uL (4.70-6.10); Red Cell Distribution Width 13.6 % (11.0-15.0); White Blood Count 9.7 10^3/uL (4.0-11.0)
[2023-12-26 19:07] LABS: Alanine Aminotransferase 87 U/L (16-63); Albumin Globulin Ratio 1.1; Albumin Level 3.6 g/dL (3.4-5.0); Alkaline Phosphatase 112 U/L (46-116); Anion Gap 15.6; Aspartate Amino Transferase 48 U/L (15-37); BUN Creatinine Ratio 22.4; Bilirubin Total 0.5 mg/dL (0.2-1.0); Calcium 8.9 mg/dL (8.5-10.1); Chloride 102 mmol/L (98-107); Estimated GFR (African America >60 (>=60); Estimated GFR (Non-African Ame 55 (>=60); Globulin 3.4 g/dL; Glucose 239 mg/dL (74-106); Potassium 3.6 mmol/L (3.5-5.1); Sodium 137 mmol/L (136-145); Troponin I High Sensitivity 23.3 pg/mL (4.0-76.1)
[2023-12-26 20:32] LABS: Troponin I High Sensitivity 26.8 pg/mL (4.0-76.1)
== END 2023-12-26 21:14 | disposition home or self-care (01) ==
PROVIDERS: Emergency Medicine; Emergency Provider Internal Medicine; PCP Internal Medicine
DX: I48.91 Unspecified atrial fibrillation (principal); C61 Malignant neoplasm of prostate; Z79.01 Long term (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 of anticoagulants
CPT/HCPCS: 36415; 71045; 80053; 84484; 85025; 93005; 96374; 99285

== ENCOUNTER 2024-01-03 07:15 | Outpatient (OUT) | payer MEDICARE, SELFPAY ==
--- OUTSIDE RECORDS SUMMARY | 2024-01-03 07:18 | XMS_ITS | CCD ---
Author Organization [facility] Inform ion Partnership [facility] Care Team Providers Care Nurse Rn Bsn Name Role Phone Gabriel Bello Primary Care Provider Ryan Negron Attending Provider Gabriel Bello Unavailable Unavailable Unavailable DO Gabriel Bello Primary Care Provider DO Juan Ventura Attending Provider Dr. Gabriel Bello Primary Care Unavai armani [place], Dr. [...] Provider Gabriel Bello DO Primary Care Provider DO Gabriel Bello Primary Care Provider NON [...] BELLO Attending Unavailable GABRIEL BELLO Attending Unavailable DEV CAMP Attending Unavailable GABRIEL BELLO Primary Care Unavailable Unavailable Unavailable Unavailable Allergies Allergy Classification Reported Allergen(s) Allergy Type Date of Onset Reaction(s) Facility (4 sources) Sulfonamides (Antibiotic); Translations: [Sulfa Drugs] Allergy to drug (finding) [place] [address] DO Work Phone: (5 sources) Sulfonamides (Antibiotic); Translations: [Sulfa (Sulfonamide Antibiotics)] Allergy to substance 2 [facility] (1 source) Sulfonamides (Antibiotic) Drug allergy (disorder) [facility] (2 sources) Substance with sulfonamide structure and antibacterial mechanism of action (substance) Drug allergy Unknown [facility] [employer] Other Medications Current Medications Medication Drug Class(es) Dates Sig (Normalized) Sig (Original) amylase 707379 unt / lipase 32033 unt / protease 42998 unt delayed release oral capsule (3 sources) Start: 11-17-2022 take 1 capsule by mouth three times daily at mealtime dcmebh-mhteacqx-lu ylase (Creon) 24,000-76,000 -120,000 unit capsule Take 1 capsule by mouth 3 times a day with meals. 0 11/17/2022 Active Start: 11-17-2022 Creon 41686-48 000 UNIT 1 with each meal Orally [...] December 05, 2021 12:00am polyethylene glycol 3350 880511 mg / potassium chloride 2970 mg / sodium bicarbonate 6740 mg / sodium chloride 5860 mg / sodium sulfate 23277 mg powder for oral solution (2 sources) [...] mouth see administration instructions. 0 Active Vit C,R-Kt-Fzrte-Lutein -Zeaxan (Preservision Areds-2) 250-90-40-1 mg Capsule (3 sources) Start: 12-05-2021 Vit C,R-Yw-Fqour-Lutein- Zeaxan (Preservision Areds-2) 250-90-40-1 mg Capsule Active 1 TAB PO Every morning December 05, 2021 12:47pm Start: 12-05-2021 Vit C,E-Zn-Underwriting Assistant iy-Oigsem-Pzynrn (Preservision Areds-2) 250-90-40-1 mg Capsule Active 1 [...] ascorbic acid 226 mg / beta carotene 63280 unt / cuprous oxide 0.8 mg / [...] [Body Mass Index between 19-24, adult] Episodic Unclassified (1 source) Diarrhea, unspecified; Translations: [Diarrhea, unspecified] Onset: 12-24-2022 Past or Other Problems Problem Classification Problem Date Documented Da te Episodic/Chronic Other aftercare (1 source) Other chcf (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; Translations: [[facility] CURRENT DRUG THERAPY] Onset: 11-06-2021 Episodic Other gastrointestinal disorders (3 sources) Change in bowel habit; Translations: [CHANGE IN BOWEL HABIT] Onset: 09-09-2022 Episodic Pancreatic disorders (not diabetes) (2 sources) Other specified diseases of pancreas; Translations: [Other specified diseases of pancreas] Onset: 11-26-2022 Episodic Screening and history of mental health and substance abuse codes (4 sources) Ex-smoker; Translations: [Personal history of nicotine dependence] Onset: 07-13-2023 07-13-2023 Episodic Unclassified (3 sources) Never smoked tobacco; Translations: [Never a smoker] Unclassified (1 source) Onset: 07-13-2023 07-13-2023 Results Test Name Value Interpretation Reference Range Facility PET psma initial tx sb-mton 09-13-2023 PET psma initial tx sb-mt [facility] [place] [address] Nuclear Medicine Report Signed Patient: Dev Walsh MR#: [id number] : 1940 Acct:[id number] Age/Sex: 83 / M ADM Date: 09/13/23 Loc: Room: Type: [facility] Attending Dr: NON STAFF Copies to: NON [...] Jordan Story M.D.09/13/2023 3:20 PM Dictation Location: [place] [address] Transcribed By: [facility] 09/13/23 1520 Dictated By: Jordan Story II, MD 09/13/23 1515 Signed By: 09/13/23 1520 Normal The Counts Include [address] [facility] At [facility] ECG 12 Leadon 07-13-2023 Sinus rhythm with frequent PVCs Otherwise normal EKG QTc 444 ms [facility] Work Phone: Joni 12-24-2022 L Specimen: [id number] Received: 12/24/22 Status: DEONDRE Lewis Num: [id number] Spec Type: Surgical Subm Dr: Jj Garcia MD Tissues: A Colon Biopsy (RANDOM COLON) B Colon Biopsy (ASCENDING POLYP) Procedures: HE/4, Gross/Micro L4/2 Age/ Patient Sex Location Account Attending Physician Dev Walsh/Jed [id number] Jj Garcia MD SPEC NUM: [id number] RECD: 12/24/22 STATUS: DEONDRE LEWIS NUM: [id number] JARRET: 12/24/22- [facility] DR: Jj Garcia MD ENTERED: 12/24/22 [...] submitted in one cassette labeled B1. Specimen: [id number] Received: 12/24/22 Status: DEONDRE Joshua Num: [id number] Spec Type: Surgical Subm Dr: Jj Garcia MD Tissues: A Colon Biopsy (RANDOM COLON) B Colon Biopsy (ASCENDING POLYP) Procedures: Lizett VASQUEZ/Saurabh L4/2 Patient: Dev Walsh [id number] (Continued) Specimen: [id number] Received: 12/24/22 (Continued) Signed (signature on file) Natan Davidson MD 12/29/22 1658 Specimen: [id number] Received: 12/24/22 Status: DEONDRE Lewis Num: [id number] Spec Type: Surgical Subm Dr: Jj Garcia MD Tissues: A Colon Biopsy (RANDOM COLON) B Colon Biopsy (ASCENDING POLYP) Procedures: Lizett VASQUEZ/Saurabh L4/2 Patient: NicoDev Brendon [id number] (Continued) Specimen: [id number] Received: 12/24/22 (Continued) Microscopic Description A. Two H E slides reviewed. The microscopic examination confirms the diagnosis. B. Two H E slides reviewed. The microscopic examination confirms the diagnosis. CPT Codes 66727u8 Specimen: [id number] Received: 12/24/22 Status: DEONDRE Lewis Num: [id number] Spec Type: Surgical Subm Dr: Jj Garcia MD Tissues: A Colon Biopsy (RANDOM COLON) B Colon Biopsy (ASCENDING POLYP) Procedures: Lizett VASQUEZ/Saurabh L4/2 Patient: Dev Walsh [id number] (Continued) Signed (signature on file) Natan Davidson MD 12/29/22 9278 Normal The Counts Include [address] [facility] At [facility] Blood Urea Nitrogenon 2022 Urea nitrogen [Mass/Vol] 31 mg/dL High 7-25 The Counts Include [address] [facility] At [facility] Comment on above: Order Comment: Reaso n for Exam Change in bowel habits Performed By: #### T SH3, BUN, CREAT #### [address] C reactive protein [Mass/vol ume] in Serum or PlasmaOrdered By: Jj Garcia on 11-26-2022 CRP [Mass/Vol] < 0.5 mg/dL 0.0-0.5 [facility] C-Reactive Proteinon 023 CRP [Mass/Vol] mg/L Normal 0.0-0.5 [facility] Comment on above: Order Comment: Reaso n for Exam Change in bowel habits Result Comment: PERF ORMED BY: [place] [address] PATHOLOGIST [employer]ADER WILMA MANTILLA M.D. Performed By: #### C RP, ESR #### [address] #### HIV SCREEN #### [facility] , CT abdomen pelvis w conon CT abdomen pelvis w con [facility] [place] [address] [place] [address] CT Scan Report Signed Patient: Dev Walsh MR#: [id number] 906 : 1940 Acct:[id number] Age/Sex: 82 / M ADM Date: 11/26/22 Loc: CT Room: Type: [facility] Attending Dr: Jj Garcia MD Copies to: [...] Mandujano Jr., D.OCassidy11/26/2022 7:19 PM Dictation Location: [place] [address] Transcribed By: [facility] 11/26/221918 Dictated By: Jered Mandujano Jr, DO 11/26/221906 Signed By: 11/26/221918 Normal The Counts Include [address] [facility] At [facility] Creatinineon 11-26-2022 Creatinine [Mass/Vol] 1.55 mg/dL High 0.70-1.30 The Counts Include [address] [facility] Comment on above: Order Comment: Reaso n for Exam Change in bowel habits Performed By: #### T SH3, BUN, CREAT #### [facility] [address] GFR/1.73 sq M.predicted MDRD (S/P/Bld) [Vol rate/Area] 43.863 mL/min/{1.73_m2} Normal The Counts Include [address] [facility] Comment on above: Order Comment: Reaso n for Exam Change in bowel habits Performed By: #### T SH3, BUN, CREAT #### [facility] [address] [place] [id number] [facility] Creatinine [Mass/volume] in Serum or PlasmaOrdered By: Gabriel Bello on 11-26-2022 Creatinine [Mass/Vol] 1.55 mg/dL 0.70-1.30 [facility] Erythrocyte Sedimentation Ra juli 11-26-2022 ESR (Bld) [Velocity] 18 mm/h Normal 0-19 The Counts Include [address] [facility] At [facility] Comment on above: Order Comment: Reaso n for Exam Change in bowel habits Result Comment: PERF ORMED BY: [place] [address] PATHOLOGIST [employer]ADER WILMA MANTILLA M.D. Performed By: #### C RP, ESR #### [address] #### HIV SCREEN #### [facility] , Erythrocyte sedimentation ra te by Photometric methodOrdered By: Jj Garcia on 11-26-2022 ESR Photometric method (Bld) [Velocity] 18 mm/hr 0-19 [facility] HIV 1/O/2 Antigen/Antibodyon 11-26-2022 HIV Screen 4th Generation Non-Reactive Normal Non Reactive The Counts Include [address] [facility] Comment on above: Order Comment: Reaso n for Exam Change in bowel habits Result Comment: HIV Negative HIV-1/HIV-2 antibodies and HIV-1 p24 antigen were NOT detected. There is no laboratory evidence of HIV infection. Performed at: [employer] [id number] Platform Inspector: Miguel Cullen PhD, Phone: [phone] PERFORMED BY: [place] [address] PATHOLOGIST [employer]ADER WILMA MANTILLA M.D. Performed By: #### C RP, ESR #### [address] #### HIV SCREEN #### [facility] , No Panel InformationOrdered By: Gabriel Bello on 11-26-2022 Estimated GFR (CKD-EPI) 43.863 mL/Min [facility] Creatinine Clearance (Chem N/A [facility] Thyroid Stimulating Hormoneo n 11-26-2022 TSH Qn 1.23 m[IU]/L Normal 0.45-5.33 [facility] Comment on above: Order Comment: Reaso n for Exam Change in bowel habits Result Comment: PERF ORMED BY: [place] [address] PATHOLOGIST [employer]ADER WILMA MANTILLA M.D. Performed By: #### T SH3, BUN, CREAT #### [facility] [address] Thyrotropin [Units/volume] i n Serum or PlasmaOrdered By: Jj Garcia on 11-26-2022 TSH Qn 1.23 m[IU]/L 0.45-5.33 [facility] Urea nitrogen [Mass/volume] in Serum or PlasmaOrdered By: Gabriel Bello on 11-26-2022 Urea nitrogen [Mass/Vol] 31 mg/dL 7 [facility] PANCREATIC ELASTASE FECALon 09-08-2022 Pancreatic Elastase, Fecal 86 ug Elast./g Critically low >200 [facility] Comment on above: Result Comment: Re sults verified by repeat testing Severe Pancreatic Insufficiency: <100 Moderate Pancreatic Insufficiency: 100 - 200 Normal: >200 Performed By: #### L IPID, TSH, CMP #### [facility] [address] [place] [address] Dr. Leesa Urbina CELIAC ANTIBODIES PROFILEon 09-04-2022 Deamidated Gliadin Abs, IgA 8 units Normal 0-19 [facility] Comment on above: Result Comment: Nega tive 0 - 19 Weak Positive 20 - 30 Moderate to Strong Positive >30 Performed By: #### C ELIACP #### [facility] [address] [place] [address] Dr. Leesa Urbina Deamidated Gliadin Abs, IgG 4 units Normal 0-19 [facility] Comment on above: Result Comment: Nega tive 0 - 19 Weak Positive 20 - 30 Moderate to Strong Positive >30 Performed By: #### C ELIACP #### [facility] [address] [place] [address] [address] Leesa Urbina Endomysial Antibody IgA Negative Normal Negative [facility] Comment on above: Performed By: #### C ELIACP #### [facility] [address] [place] [address] [address] Leesa Urbina Immunoglobulin A, Qn, Serum 143 mg/dL Normal 61-437 [facility] Comment on above: Performed By: #### C ELIACP #### [facility] [address] [place] [address] Dr. Leesa Urbina t-Transglutaminase (tTG) IgA <2 Normal 0-3 [facility] Comment on above: Result Comment: Nega tive 0 - 3 Weak Positive 4 - 10 Positive >10 . Tissue Transglutaminase (tTG) has been identified as the endomysial antigen. Studies have demonstr- ated that endomysial IgA antibodies have over 99% specificity for gluten sensitive enteropathy. Performed By: #### C ELIACP #### [facility] [address] [place] [address] Dr. Leesa Urbina t-Transglutaminase (tTG) IgG 6 U/mL Critically high 0-5 [facility] Comment on above: Result Comment: Nega tive 0 - 5 Weak Positive 6 - 9 Positive >9 Performed By: #### C ELIACP #### [facility] [address] [place] [address] Dr. Leesa Urbina CBC AUTO DIFFon 09-03-2022 BASO # 0.1 103/ul Normal 0.0-0.1 [facility] Comment on above: Performed By: #### L IPID, TSH, CMP #### [facility] [address] [place] [address] Dr. Leesa Urbina Basophils/100 WBC (Bld) 1.1 % Normal 0.2-2.0 [facility] Comment on above: Performed By: #### L IPID, TSH, CMP #### [facility] [address] [place] [address] Dr. Leesa Urbina EO # 0.6 103/ul Normal 0.0-0.7 [facility] Comment on above: Performed By: #### L IPID, TSH, CMP #### [facility] [address] [place] [address] Dr. Leesa Urbina Eosinophils/100 WBC (Bld) 7.9 % Critically high 0.9-7.0 [facility] Comment on above: Performed By: #### L IPID, TSH, CMP #### [facility] [address] [place] [address] Dr. Leesa Urbina Erythrocyte distribution width (RBC) [Ratio] 13.6 % Normal 11.0-15.0 [facility] Comment on above: Performed By: #### L IPID, TSH, CMP #### [facility] [address] [place] [address] Dr. Leesa Urbina Hematocrit (Bld) [Volume fraction] 34.4 % Critically low 42.0-54.0 [facility] Comment on above: Performed By: #### L IPID, TSH, CMP #### [facility] [address] [place] [address] Dr. Leesa Urbina Hemoglobin (Bld) [Mass/Vol] 11.4 g/dL Critically low 14.0-18.0 [facility] Comment on above: Performed By: #### L IPID, TSH, CMP #### [facility] [address] [place] [address] Dr. Leesa Urbina IG # 0.02 10e3/ul Normal 0.00-0.03 [facility] Comment on above: Performed By: #### L IPID, TSH, CMP #### [facility] [address] [place] [address] Dr. Leesa Urbina IG % 0.3 % Normal 0.0-0.5 [facility] Comment on above: Performed By: #### L IPID, TSH, CMP #### [facility] [address] [place] [address] Dr. Leesa Urbina LYMPH # 2.1 103/ul Normal 1.2-3.8 [facility] Comment on above: Performed By: #### L IPID, TSH, CMP #### [facility] [address] [place] [address] Dr. Leesa Urbina Lymphocytes/100 WBC (Bld) 28.1 % Normal 20.5-60.0 [facility] Comment on above: Performed By: #### L IPID, TSH, CMP #### [facility] [address] [place] [address] Dr. Leesa Urbina MANUAL DIFF REQ NO Normal [facility] Comment on above: Performed By: #### L IPID, TSH, CMP #### [facility] [address] [place] [address] Dr. Leesa Urbina MCH (RBC) [Entitic mass] 31.1 pg Normal 25.9-34.0 [facility] Comment on above: Performed By: #### L IPID, TSH, CMP #### [facility] [address] [place] [address] Dr. Leesa Urbina MCHC (RBC) [Mass/Vol] 33.1 g/dL Normal 29.9-35.2 [facility] Comment on above: Performed By: #### L IPID, TSH, CMP #### [facility] [address] [place] [address] Dr. Leesa Urbina MCV (RBC) [Entitic vol] 93.7 fL Normal 80.0-94.0 [facility] Comment on above: Performed By: #### L IPID, TSH, CMP #### [facility] [address] [place] [address] Dr. Leesa Urbina MONO # 0.4 103/ul Normal 0.3-0.8 [facility] Comment on above: Performed By: #### L IPID, TSH, CMP #### [facility] [address] [place] [address] Dr. Leesa Urbina Monocytes/100 WBC (Bld) 6.0 % Normal 1.7-12.0 [facility] Comment on above: Performed By: #### L IPID, TSH, CMP #### [facility] [address] [place] [address] Dr. Leesa Urbina NEUT # 4.2 103/ul Normal 1.4-6.5 [facility] Comment on above: Performed By: #### L IPID, TSH, CMP #### [facility] [address] [place] [address] Dr. Leesa Urbina Neutrophils/100 WBC (Bld) 56.6 % Normal 43.0-75.0 [facility] Comment on above: Performed By: #### L IPID, TSH, CMP #### [facility] [address] [place] [address] Dr. Leesa Urbina Platelet mean volume (Bld) [Entitic vol] 10.1 fL Normal 9.5-13.5 [facility] Comment on above: Performed By: #### L IPID, TSH, CMP #### [facility] [address] [address] [address] Leesa Urbina PLT 195 103/ul Normal 150-450 [facility] Comment on above: Performed By: #### L IPID, TSH, CMP #### [facility] [address] [place] [address] [address] Leesa Urbina RBC 3.67 106/ul Critically low 4.70-6.10 [facility] Comment on above: Performed By: #### L IPID, TSH, CMP #### [facility] [address] [place] [address] Dr. Leesa Urbina WBC 7.3 103/ul Normal 4.0-11.0 [facility] Comment on above: Performed By: #### L IPID, TSH, CMP #### [facility] [address] [place] [address] Dr. Leesa Urbina FERRITINon 09-03-2022 Ferritin [Mass/Vol] 44.0 ng/mL Normal 26.0-388.0 [facility] Comment on above: Performed By: #### F ERR, FETIBC #### [facility] [address] [place] [address] Dr. Leesa Urbina IRON AND TIBCon 09-03-2022 % SATURATION 23.5 % Normal [facility] Comment on above: Performed By: #### F ERR, FETIBC #### [facility] [address] [place] [address] Dr. Leesa Urbina Iron [Mass/Vol] 69.0 ug/dL Normal 65.0-175.0 [facility] Comment on above: Performed By: #### F ERR, FETIBC #### [facility] [address] [place] [address] Dr. Leesa Urbina TIBC DIRECT 294.0 ug/dL Normal 250.0-450.0 [facility] Comment on above: Performed By: #### F ERR, FETIBC #### [facility] [address] [place] [address] [address] Leesa Urbina Office Visit (Cardiology)on 07-14-2022 Follow-up visit Diagnoses/Problems Assessed Anticoagulated (V58.61) (Z79.01) Benign essential hypertension (401.1) (I10) Hyperlipidemia (272.4) (E78.5) Paroxysmal atrial fibrillation (427.31) (I48.0) Diabetes mellitus (250.00) (E11.9) Body mass index (BMI) of 24.0 to 24.9 in adult (V85.1) (Z68.24) Never a smoker Orders SocHx: Never a smoker Tobacco Use Screening; Status:Complete; Done: [id number] Patient Instructions Please bring all medicines, vitamins, [...] negative for complaint. Vitals Vital Signs Recorded: [id number] 09:08AM Heart Rate68, L Radial Uwuvnrfs278, LUE, Sitting Facieypwn65, LUE, Sitting Height5 ft 11 in Nztcky729 lb BMI Tkbptewcvv60.13 kg/m2 BSA Calculated1.98 Tobacco Useb) No PHQ-2 [...] Screening.on 023 Adult depression screening assessment No [facility] [employer] [facility] 250 DO Work Phone: Fall risk assessment a) No falls within the last year [facility] 250 DO Work Phone: Tobacco use status [facility]PH[facility] b) No [facility] 250 DO Work Phone: CBC AUTO DIFFon 05-06-2022 BASO # 0.1 103/ul Normal 0.0-0.1 [facility] Comment on above: Performed By: #### C BC #### [facility] [address] [place] [address] Dr. Leesa Urbina Basophils/100 WBC (Bld) 1.4 % Normal 0.2-2.0 [facility] Comment on above: Performed By: #### C BC #### [facility] [address] [place] [address] Dr. Leesa Urbina EO # 0.4 103/ul Normal 0.0-0.7 [facility] Comment on above: Performed By: #### C BC #### [facility] [address] [place] [address] Dr. Leesa Urbina Eosinophils/100 WBC (Bld) 5.4 % Normal 0.9-7.0 [facility] Comment on above: Performed By: #### C BC #### [facility] [address] [place] [address] Dr. Leesa Urbina Erythrocyte distribution width (RBC) [Ratio] 13.3 % Normal 11.0-15.0 [facility] Comment on above: Performed By: #### C BC #### [facility] [address] [place] [address] Dr. Leesa Urbina Hematocrit (Bld) [Volume fraction] 35.8 % Critically low 42.0-54.0 [facility] Comment on above: Performed By: #### C BC #### [facility] [address] [place] [address] Dr. Leesa Urbina Hemoglobin (Bld) [Mass/Vol] 12.0 g/dL Critically low 14.0-18.0 [facility] Comment on above: Performed By: #### C BC #### [facility] [address] [place] [address] Dr. Leesa Urbina IG # 0.01 10e3/ul Normal 0.00-0.03 [facility] Comment on above: Performed By: #### C BC #### [facility] [address] [place] [address] Dr. Leesa Urbina IG % 0.2 % Normal 0.0-0.5 [facility] Comment on above: Performed By: #### C BC #### [facility] [address] [place] [address] Dr. Leesa Urbina LYMPH # 1.7 103/ul Normal 1.2-3.8 [facility] Comment on above: Performed By: #### C BC #### [facility] [address] [place] [address] Dr. Leesa Urbina Lymphocytes/100 WBC (Bld) 26.1 % Normal 20.5-60.0 [facility] Comment on above: Performed By: #### C BC #### [facility] [address] [place] [address] Dr. Leesa Urbina MANUAL DIFF REQ NO Normal [facility] Comment on above: Performed By: #### C BC #### [facility] [address] [place] [address] Dr. Leesa Urbina MCH (RBC) [Entitic mass] 31.0 pg Normal 25.9-34.0 [facility] Comment on above: Performed By: #### C BC #### [facility] [address] [place] [address] Dr. Leesa Urbina MCHC (RBC) [Mass/Vol] 33.5 g/dL Normal 29.9-35.2 [facility] Comment on above: Performed By: #### C BC #### [facility] [address] [place] [address] [address] Leesa Urbina MCV (RBC) [Entitic vol] 92.5 fL Normal 80.0-94.0 [facility] Comment on above: Performed By: #### C BC #### [facility] [address] [place] [address] [address] Leesa Urbina MONO # 0.4 103/ul Normal 0.3-0.8 [facility] Comment on above: Performed By: #### C BC #### [facility] [address] [place] [address] Dr. Leesa Urbina Monocytes/100 WBC (Bld) 6.5 % Normal 1.7-12.0 [facility] Comment on above: Performed By: #### C BC #### [facility] [address] [place] [address] Dr. Leesa Urbina NEUT # 4.0 103/ul Normal 1.4-6.5 [facility] Comment on above: Performed By: #### C BC #### [facility] [address] [place] [address] Dr. Leesa Urbina Neutrophils/100 WBC (Bld) 60.4 % Normal 43.0-75.0 [facility] Comment on above: Performed By: #### C BC #### [facility] [address] [place] [address] Dr. Leesa Urbina Platelet mean volume (Bld) [Entitic vol] 10.6 fL Normal 9.5-13.5 [facility] Comment on above: Performed By: #### C BC #### [facility] [address] [place] [address] Dr. Leesa Urbina PLT 185 103/ul Normal 150-450 [facility] Comment on above: Performed By: #### C BC #### [facility] [address] [place] [address] Dr. Leesa Urbina RBC 3.87 106/ul Critically low 4.70-6.10 [facility] Comment on above: Performed By: #### C BC #### [facility] [address] [address] [address] Leesa Urbina WBC 6.6 103/ul Normal 4.0-11.0 [facility] Comment on above: Performed By: #### C BC #### [facility] [address] [address] [address] Leesa Urbina GLYCOHEMOGLOBIN A1Con 2021 ADA RECOMMENDATION SEE BELOW Normal [facility] Comment on above: Result Comment: ADA RECOMMENDED LIMIT 4.0 - 6.0 ADA THERAPEUTIC TARGET < 7.0 ACTION SUGGESTED > 7.0 Performed By: #### A 1C #### [facility] [address] [place] [address] Dr. Leesa Urbina Glucose [Mass/Vol] 151 mg/dL Normal [facility] Comment on above: Performed By: #### A 1C #### [facility] [address] [place] [address] Dr. Leesa Urbina HbA1c (Bld) [Mass fraction] 6.9 % Critically high 4.5-6.2 [facility] Comment on above: Performed By: #### A 1C #### [facility] [address] [place] [address] Dr. Leesa Urbina LIPID PROFILEon 05-06-2022 CHOL-HDL RATIO NORM SEE BELOW Normal [facility] Comment on above: Result Comment: 3.3 - 4.4 LOW RISK 4.4 - 7.1 AVERAGE RISK 7.1 - 11.0 MODERATE RISK >11.0 HIGH RISK Performed By: #### L IPID, TSH, CMP #### [facility] [address] [place] [address] Dr. Leesa Urbina Cholesterol [Mass/Vol] 136 mg/dL Normal <=200 [facility] [place] Comment on above: Performed By: #### L IPID, TSH, CMP #### [facility] [address] [place] [address] Dr. Leesa Urbina Cholesterol in HDL [Mass/Vol] 62 mg/dL Critically high 40-60 [facility] Comment on above: Performed By: #### L IPID, TSH, CMP #### [facility] [address] [address] [address] Leesa Urbina Cholesterol in LDL [Mass/Vol] 53.0 mg/dL Normal [facility] Comment on above: Performed By: #### L IPID, TSH, CMP #### [facility] [address] [address] [address] Leesa Urbina Cholesterol.total/Chol esterol in HDL [Mass ratio] 2.2 {ratio} Normal [facility] Comment on above: Performed By: #### L IPID, TSH, CMP #### [facility] [address] [address] [address] Leesa Urbina HDL NORMAL > or = 60 mg/dl - LOW CARDIOVASCULAR RISK <40 mg/dl - HIGH CARDIOVASCULAR RISK Normal [facility] Comment on above: Performed By: #### L IPID, TSH, CMP #### [facility] [address] [place] [address] Dr. Leesa Urbina LDL CALC NORMAL SEE BELOW Normal [facility] Comment on above: Result Comment: <100 mg/dl OPTIMAL 100 - 129 mg/dl NEAR OR ABOVE OPTIMAL 130 - 159 mg/dl BORDERLINE HIGH 160 - 189 mg/dl HIGH >190 mg/dl VERY HIGH Performed By: #### L IPID, TSH, CMP #### [facility] [address] [address] [address] Leesa Urbina Triglyceride [Mass/Vol] 105 mg/dL Normal <=150 [facility] Comment on above: Performed By: #### L IPID, TSH, CMP #### [facility] [address] [place] [address] Dr. Leesa Urbina VLDL CALC 21.0 mg/dL Normal [facility] Comment on above: Performed By: #### L IPID, TSH, CMP #### [facility] [address] [address] [address] Leesa Urbina PROF 14(COMP METB)on 022 Albumin [Mass/Vol] 3.4 g/dL Normal 3.4-5.0 [facility] Comment on above: Performed By: #### L IPID, TSH, CMP #### [facility] [address] [address] [address] Leesa Urbina Albumin/Globulin [Mass ratio] 1.1 {ratio} Normal [facility] Comment on above: Performed By: #### L IPID, TSH, CMP #### [facility] [address] [address] [address] Leesa Urbina ALP [Catalytic activity/Vol] 77 U/L Normal 46-116 [facility] Comment on above: Performed By: #### L IPID, TSH, CMP #### [facility] [address] [address] [address] Leesa Urbina ALT [Catalytic activity/Vol] 12 U/L Critically low 16-63 [facility] Comment on above: Performed By: #### L IPID, TSH, CMP #### [facility] [address] [address] [address] Leesa Urbina Anion gap [Moles/Vol] 12.7 mmol/L Normal [facility] Comment on above: Performed By: #### L IPID, TSH, CMP #### [facility] [address] [address] [address] Leesa Urbina AST [Catalytic activity/Vol] 19 U/L Normal 15-37 [facility] Comment on above: Performed By: #### L IPID, TSH, CMP #### [facility] [address] [address] [address] Leesa Urbina Bilirubin [Mass/Vol] 0.4 mg/dL Normal 0.2-1.0 [facility] Comment on above: Performed By: #### L IPID, TSH, CMP #### [facility] [address] [address] [address] Leesa Urbina Calcium [Mass/Vol] 8.5 mg/dL Normal 8.5-10.1 [facility] Comment on above: Performed By: #### L IPID, TSH, CMP #### [facility] [address] [address] [address] Leesa Urbina Chloride [Moles/Vol] 107 mmol/L Normal 98-107 [facility] Comment on above: Performed By: #### L IPID, TSH, CMP #### [facility] [address] [address] [address] Leesa Urbina CO2 [Moles/Vol] 27.4 mmol/L Normal 21.0-32.0 [facility] Comment on above: Performed By: #### L IPID, TSH, CMP #### [facility] [address] [place] [address] Dr. Leesa Urbina Creatinine [Mass/Vol] 1.06 mg/dL Normal 0.70-1.30 [facility] Comment on above: Performed By: #### L IPID, TSH, CMP #### [facility] [address] [place] [address] Dr. Leesa Urbina EGFR-AF SAMOAN >60 Normal >=60 [facility] Comment on above: Performed By: #### L IPID, TSH, CMP #### [facility] [address] [place] [address] Dr. Leesa Urbina EGFR-NON AF SAMOAN >60 Normal >=60 [facility] Comment on above: Performed By: #### L IPID, TSH, CMP #### [facility] [address] [place] [address] Dr. Leesa Urbina Globulin (S) [Mass/Vol] 3.1 g/dL Normal [facility] Comment on above: Performed By: #### L IPID, TSH, CMP #### [facility] [address] [place] [address] Dr. Leesa Urbina Glucose [Mass/Vol] 171 mg/dL Critically high 74-106 [facility] Comment on above: Performed By: #### L IPID, TSH, CMP #### [facility] [address] [place] [address] Dr. Leesa Urbina Potassium [Moles/Vol] 4.1 mmol/L Normal 3.5-5.1 [facility] Comment on above: Performed By: #### L IPID, TSH, CMP #### [facility] [address] [place] [address] Dr. Leesa Urbina Protein [Mass/Vol] 6.5 g/dL Normal 6.4-8.2 [facility] Comment on above: Performed By: #### L IPID, TSH, CMP #### [facility] [address] [address] [address] Leesa Urbina Sodium [Moles/Vol] 143 mmol/L Normal 136-145 [facility] Comment on above: Performed By: #### L IPID, TSH, CMP #### [facility] [address] [address] [address] Leesa Urbina Urea nitrogen [Mass/Vol] 24.0 mg/dL Critically high 7.0-18.0 [facility] Comment on above: Performed By: #### L IPID, TSH, CMP #### [facility] [address] [address] [address] Leesa Urbina Urea nitrogen/Creatinine [Mass ratio] 22.6 mg/mg Normal [facility] Comment on above: Performed By: #### L IPID, TSH, CMP #### [facility] [address] [address] [address] Leesa Urbina Basophils Auto (Bld) [#/Vol] Ordered By: Juan Ventura on 12-05-2021 Basophils (Bld) [#/Vol] 0.1 10*3/uL 0.0-0.2 [facility] Basophils/100 WBC Auto (Bld) Ordered By: Juan Ventura on 12-05-2021 Basophils/100 WBC (Bld) 0.9 % [facility] Blood hemoglobin measurement (mass/volume)Ordered By: Juan Ventura on 12-05-2021 Hemoglobin (Bld) [Mass/Vol] 12.4 g/dL 13.0-17.0 [facility] Blood leukocytes automated c ount (number/volume)Ordered By: Juan Ventura on 12-05-2021 WBC (Bld) [#/Vol] 7.0 10*3/uL 4.5-11.0 [facility] COVID-19 Positive/NegativeOr dered By: Juan Ventura on 07-15-2022 SARS-CoV-2 (COVID-19) N gene RENETTA+probe Ql (Resp) Negative Negative [facility] Comment on above: Testing for SARS-CoV -2 by RT-PCR This test was developed and its performance characteristics determined by [employer] ([employer]) and validated at the [facility]. This test has not been [...] on 12-05-2021 Creatinine [Mass/Vol] 1.28 mg/dL 0.64-1.27 [facility] Eosinophils Auto (Bld) [#/Vo l]Ordered By: Juan Ventura on 12-05-2021 Eosinophils (Bld) [#/Vol] 0.1 10*3/uL 0.0-0.45 [facility] Eosinophils/100 WBC Auto (Bl d)Ordered By: Juan Ventura on 12-05-2021 Eosinophils/100 WBC (Bld) 2.1 % [facility] Erythrocyte distribution wid th Auto (RBC) [Ratio]Ordered By: Juan Ventura on 12-05-2021 Erythrocyte distribution width (RBC) [Ratio] 14.6 % 12.0-14.8 [facility] Estimated glomerular filtrat ion rate (GFR) non- AmericanOrdered By: Juan Ventura on 12-05-2021 GFR/1.73 sq M.predicted among non-blacks MDRD (S/P/Bld) [Vol rate/Area] 54 mL/Min [facility] Hematocrit Auto (Bld) [Volum e fraction]Ordered By: Juan Ventura on 12-05-2021 Hematocrit (Bld) [Volume fraction] 37.3 % 38.8-50.0 [facility] Laboratory - Hematology and Cell countsOrdered By: Juan Ventura on 12-05-2021 Nucleated RBC/100 WBC (Bld) [Ratio] 0.0 % 0-0.5 [facility] Lymphocytes Auto (Bld) [#/Vo l]Ordered By: Juan Ventura on 12-05-2021 Lymphocytes (Bld) [#/Vol] 1.4 10*3/uL 1.00-4.8 [facility] Lymphocytes/100 WBC Auto (Bl d)Ordered By: Juan Ventura on 12-05-2021 Lymphocytes/100 WBC (Bld) 19.8 % [facility] MCH Auto (RBC) [Entitic mass ]Ordered By: Juan Ventura on 12-05-2021 MCH (RBC) [Entitic mass] 30.8 pg 27.5-35.2 [facility] MCHC Auto (RBC) [Mass/Vol]Or dered By: Juan Ventura on 12-05-2021 MCHC (RBC) [Mass/Vol] 33.1 g/dL 32.5-35.6 [facility] MCV Auto (RBC) [Entitic vol] Ordered By: Juan Ventura on 12-05-2021 MCV (RBC) [Entitic vol] 93.1 fL 83.5-101 [facility] Monocytes Auto (Bld) [#/Vol] Ordered By: Juan Ventura on 12-05-2021 Monocytes (Bld) [#/Vol] 0.5 10*3/uL 0.0-0.8 [facility] Monocytes/100 WBC Auto (Bld) Ordered By: Juan Ventura on 12-05-2021 Monocytes/100 WBC (Bld) 7.3 % [facility] Neutrophils Auto (Bld) [#/Vo l]Ordered By: Juan Ventura on 12-05-2021 Neutrophils (Bld) [#/Vol] 4.9 10*3/uL 1.8-7.7 [facility] Neutrophils/100 WBC Auto (Bl d)Ordered By: Juan Ventura on 12-05-2021 Neutrophils/100 WBC (Bld) 69.9 % [facility] No Panel InformationOrdered By: Juan Ventura on 12-05-2021 Estimated GFR () > 60 mL/Min [facility] Comment on above: GFR estimated refere nce range: According to KDOQI guidelines, <60 ml/min/1.73m2 is sufficient to diagnose a patient with chronic kidney disease. Pharmacy Creatinine Clearance (Chem N/A [facility] Platelet mean volume Auto (B ld) [Entitic vol]Ordered By: Juan Ventura on 12-05-2021 Platelet mean volume (Bld) [Entitic vol] 8.9 fL 6.6-10.1 [facility] Platelets Auto (Bld) [#/Vol] Ordered By: Juan Ventura on 12-05-2021 Platelets (Bld) [#/Vol] 194 10*3/uL 150-450 [facility] RBC Auto (Bld) [#/Vol]Ordere d By: Juan Ventura on 12-05-2021 RBC (Bld) [#/Vol] 4.00 10*6/uL 3.90-5.60 [facility] Serum or plasma calcium fco urement (mass/volume)Ordered By: Juan Ventura on 12-05-2021 Calcium [Mass/Vol] 9.2 mg/dL 8.2-10.2 [facility] Serum or plasma chloride daniel surement (moles/volume)Ordered By: Juan Ventura on 12-05-2021 Chloride [Moles/Vol] 107 mmol/L 95-114 [facility] Serum or plasma glucose fco urement (mass/volume)Ordered By: Juan Ventura on 12-05-2021 Glucose [Mass/Vol] 117 mg/dL 70-100 [facility] Comment on above: ADA recommended refe rence range Random Glucose Reference Range is dependent on time and content of last meal. Glucose of more than 200 mg/dL in a nonstressed, ambulatory subject supports the diagnosis of Diabetes Mellitus. Serum or plasma potassium me asurement (moles/volume)Ordered By: Juan Ventura on 12-05-2021 Potassium [Moles/Vol] 4.6 mmol/L 3.5-5.1 [facility] Serum or plasma sodium measu rement (moles/volume)Ordered By: Juan Ventura on 12-05-2021 Sodium [Moles/Vol] 141 mmol/L 136-146 [facility] Serum or plasma total carbon dioxide measurement (moles/volume)Ordered By: Juan Ventura on 12-05-2021 CO2 [Moles/Vol] 26.2 mmol/L 22.0-30.0 [facility] Serum or plasma urea nitroge n measurement (mass/volume)Ordered By: Juan Ventura on 12-05-2021 Urea nitrogen [Mass/Vol] 23 mg/dL 9-23 [facility] CBC AUTO DIFFon 11-05-2021 BASO # 0.1 103/ul Normal 0.0-0.1 [facility] Comment on above: Performed By: #### C BC #### [facility] [address] [address] [address] Leesa Urbina Basophils/100 WBC (Bld) 0.8 % Normal 0.2-2.0 [facility] Comment on above: Performed By: #### C BC #### [facility] [address] [address] [address] Leesa Urbina EO # 0.4 103/ul Normal 0.0-0.7 [facility] Comment on above: Performed By: #### C BC #### [facility] [address] [address] [address] Leesa Urbina Eosinophils/100 WBC (Bld) 5.6 % Normal 0.9-7.0 [facility] Comment on above: Performed By: #### C BC #### [facility] [address] [address] [address] Leesa Urbina Erythrocyte distribution width (RBC) [Ratio] 13.4 % Normal 11.0-15.0 [facility] Comment on above: Performed By: #### C BC #### [facility] [address] [address] [address] Leesa Urbina Hematocrit (Bld) [Volume fraction] 36.1 % Critically low 42.0-54.0 [facility] Comment on above: Performed By: #### C BC #### [facility] [address] [place] [address] Dr. Leesa Urbina Hemoglobin (Bld) [Mass/Vol] 11.8 g/dL Critically low 14.0-18.0 [facility] Comment on above: Performed By: #### C BC #### [facility] [address] [place] [address] Dr. Leesa Urbina IG # 0.02 10e3/ul Normal 0.00-0.03 [facility] Comment on above: Performed By: #### C BC #### [facility] [address] [place] [address] Dr. Leesa Urbina IG % 0.3 % Normal 0.0-0.5 [facility] Comment on above: Performed By: #### C BC #### [facility] [address] [place] [address] Dr. Leesa Urbina LYMPH # 1.8 103/ul Normal 1.2-3.8 [facility] Comment on above: Performed By: #### C BC #### [facility] [address] [place] [address] Dr. Leesa Urbina Lymphocytes/100 WBC (Bld) 28.4 % Normal 20.5-60.0 [facility] Comment on above: Performed By: #### C BC #### [facility] [address] [place] [address] Dr. Leesa Urbina MANUAL DIFF REQ NO Normal [facility] Comment on above: Performed By: #### C BC #### [facility] [address] [place] [address] Dr. Leesa Urbina MCH (RBC) [Entitic mass] 30.7 pg Normal 25.9-34.0 [facility] Comment on above: Performed By: #### C BC #### [facility] [address] [address] [address] Leesa Urbina MCHC (RBC) [Mass/Vol] 32.7 g/dL Normal 29.9-35.2 [facility] Comment on above: Performed By: #### C BC #### [facility] [address] [address] [address] Leesa Urbina MCV (RBC) [Entitic vol] 94.0 fL Normal 80.0-94.0 [facility] Comment on above: Performed By: #### C BC #### [facility] [address] [place] [address] Dr. Leesa Urbina MONO # 0.5 103/ul Normal 0.3-0.8 [facility] Comment on above: Performed By: #### C BC #### [facility] [address] [place] [address] Dr. Leesa Urbina Monocytes/100 WBC (Bld) 8.1 % Normal 1.7-12.0 [facility] Comment on above: Performed By: #### C BC #### [facility] [address] [place] [address] Dr. Leesa Urbina NEUT # 3.5 103/ul Normal 1.4-6.5 [facility] Comment on above: Performed By: #### C BC #### [facility] [address] [place] [address] Dr. Leesa Urbina Neutrophils/100 WBC (Bld) 56.8 % Normal 43.0-75.0 [facility] Comment on above: Performed By: #### C BC #### [facility] [address] [place] [address] Dr. Leesa Urbina Platelet mean volume (Bld) [Entitic vol] 10.3 fL Normal 9.5-13.5 [facility] Comment on above: Performed By: #### C BC #### [facility] [address] [place] [address] Dr. Leesa Urbina PLT 179 103/ul Normal 150-450 [facility] Comment on above: Performed By: #### C BC #### [facility] [address] [address] [address] Leesa Urbina RBC 3.84 106/ul Critically low 4.70-6.10 [facility] Comment on above: Performed By: #### C BC #### [facility] [address] [address] [address] Leesa Urbina WBC 6.2 103/ul Normal 4.0-11.0 [facility] Comment on above: Performed By: #### C BC #### [facility] [address] [address] [address] Leesa Urbina GLYCOHEMOGLOBIN A1Con 2021 ADA RECOMMENDATION SEE BELOW Normal [facility] Comment on above: Result Comment: ADA RECOMMENDED LIMIT 4.0 - 6.0 ADA THERAPEUTIC TARGET < 7.0 ACTION SUGGESTED > 7.0 Performed By: #### L IPID, TSH, CMP #### [facility] [address] [address] [address] Leesa Urbina Glucose [Mass/Vol] 151 mg/dL Normal [facility] Comment on above: Performed By: #### L IPID, TSH, CMP #### [facility] [address] [address] [address] Leesa Urbina HbA1c (Bld) [Mass fraction] 6.9 % Critically high 4.5-6.2 [facility] Comment on above: Performed By: #### L IPID, TSH, CMP #### [facility] [address] [address] [address] Leesa Urbina LIPID PROFILEon 11-05-2021 CHOL-HDL RATIO NORM SEE BELOW Normal [facility] Comment on above: Result Comment: 3.3 - 4.4 LOW RISK 4.4 - 7.1 AVERAGE RISK 7.1 - 11.0 MODERATE RISK >11.0 HIGH RISK Performed By: #### L IPID, TSH, CMP #### [facility] [address] [address] [address] Leesa Urbina Cholesterol [Mass/Vol] 150 mg/dL Normal <=200 [facility] Comment on above: Performed By: #### L IPID, TSH, CMP #### [facility] [address] [address] [address] Leesa Urbina Cholesterol in HDL [Mass/Vol] 60 mg/dL Normal 40-60 [facility] Comment on above: Performed By: #### L IPID, TSH, CMP #### [facility] [address] [address] [address] Leesa Urbina Cholesterol in LDL [Mass/Vol] 70.8 mg/dL Normal [facility] Comment on above: Performed By: #### L IPID, TSH, CMP #### [facility] [address] [address] [address] Leesa Urbina Cholesterol.total/Chol esterol in HDL [Mass ratio] 2.5 {ratio} Normal [facility] Comment on above: Performed By: #### L IPID, TSH, CMP #### [facility] [address] [address] [address] Leesa Urbina HDL NORMAL > or = 60 mg/dl - LOW CARDIOVASCULAR RISK <40 mg/dl - HIGH CARDIOVASCULAR RISK Normal [facility] Comment on above: Performed By: #### L IPID, TSH, CMP #### [facility] [address] [address] [address] Leesa Urbina LDL CALC NORMAL SEE BELOW Normal [facility] Comment on above: Result Comment: <100 mg/dl OPTIMAL 100 - 129 mg/dl NEAR OR ABOVE OPTIMAL 130 - 159 mg/dl BORDERLINE HIGH 160 - 189 mg/dl HIGH >190 mg/dl VERY HIGH Performed By: #### L IPID, TSH, CMP #### [facility] [address] [address] [address] Leesa Urbina Triglyceride [Mass/Vol] 96 mg/dL Normal <=150 [facility] Comment on above: Performed By: #### L IPID, TSH, CMP #### [facility] [address] [address] [address] Leesa Urbina VLDL CALC 19.2 mg/dL Normal [facility] Comment on above: Performed By: #### L IPID, TSH, CMP #### [facility] [address] [address] [address] Leesa Urbina MICROALB CREAT RATIO RANDOMo n 11-05-2021 mALB <1.3 Normal <=30.0 [facility] Comment on above: Performed By: #### L IPID, TSH, CMP #### [facility] [address] [address] [address] Leesa Urbina MALB CR RATIO 11.4 mg/g Normal 0.0-29.9 [facility] Comment on above: Performed By: #### L IPID, TSH, CMP #### [facility] [address] [address] [address] Leesa Urbina MALB CR RATIO RANGE SEE BELOW Normal [facility] Comment on above: Result Comment: NO M ICROALBUMINURIA 0-29 MG/G CLINICAL MICROALBUMINURIA 30-300 MG/G MACROALBUMINURIA >300 MG/G Performed By: #### L IPID, TSH, CMP #### [facility] [address] [address] [address] Leesa Urbina URINE CREAT 114.03 mg/dL Normal 20.00-300.00 [facility] Comment on above: Performed By: #### L IPID, TSH, CMP #### [facility] [address] [address] [address] Leesa Urbina PROF 14(COMP METB)on 022 Albumin [Mass/Vol] 2.3 g/dL Critically low 3.4-5.0 [facility] Comment on above: Performed By: #### L IPID, TSH, CMP #### [facility] [address] [address] [address] Leesa Urbina Albumin/Globulin [Mass ratio] 0.5 {ratio} Normal [facility] Comment on above: Performed By: #### L IPID, TSH, CMP #### [facility] [address] [address] [address] Leesa Urbina ALP [Catalytic activity/Vol] 77 U/L Normal 46-116 [facility] Comment on above: Performed By: #### L IPID, TSH, CMP #### [facility] [address] [address] [address] Leesa Urbina ALT [Catalytic activity/Vol] 16 U/L Normal 16-63 [facility] Comment on above: Performed By: #### L IPID, TSH, CMP #### [facility] [address] [address] [address] Leesa Urbina Anion gap [Moles/Vol] 13.8 mmol/L Normal Th e [facility] Comment on above: Performed By: #### L IPID, TSH, CMP #### [facility] [address] [place] [address] Dr. Leesa Urbina AST [Catalytic activity/Vol] 15 U/L Normal 15-37 [facility] Comment on above: Performed By: #### L IPID, TSH, CMP #### [facility] [address] [place] [address] Dr. Leesa Urbina Bilirubin [Mass/Vol] 0.5 mg/dL Normal 0.2-1.0 [facility] Comment on above: Performed By: #### L IPID, TSH, CMP #### [facility] [address] [place] [address] Dr. Leesa Urbina Calcium [Mass/Vol] 8.7 mg/dL Normal 8.5-10.1 [facility] Comment on above: Performed By: #### L IPID, TSH, CMP #### [facility] [address] [place] [address] Dr. Leesa Urbina Chloride [Moles/Vol] 107 mmol/L Normal 98-107 [facility] Comment on above: Performed By: #### L IPID, TSH, CMP #### [facility] [address] [place] [address] Dr. Leesa Urbina CO2 [Moles/Vol] 26.2 mmol/L Normal 21.0-32.0 [facility] Comment on above: Performed By: #### L IPID, TSH, CMP #### [facility] [address] [place] [address] Dr. Leesa Urbina Creatinine [Mass/Vol] 1.25 mg/dL Normal 0.70-1.30 [facility] Comment on above: Performed By: #### L IPID, TSH, CMP #### [facility] [address] [address] [address] Leesa Urbina EGFR-AF SAMOAN >60 Normal >=60 [facility] Comment on above: Performed By: #### L IPID, TSH, CMP #### [facility] [address] [address] [address] Leesa Urbina EGFR-NON AF SAMOAN 55 mL/min/1.73m2 Critically low >=60 [facility] Comment on above: Performed By: #### L IPID, TSH, CMP #### [facility] [address] [address] [address] Leesa Urbina Globulin (S) [Mass/Vol] 4.3 g/dL Normal [facility] Comment on above: Performed By: #### L IPID, TSH, CMP #### [facility] [address] [place] [address] Dr. Leesa Urbina Glucose [Mass/Vol] 137 mg/dL Critically high 74-106 [facility] Comment on above: Performed By: #### L IPID, TSH, CMP #### [facility] [address] [address] [address] Leesa Urbina Potassium [Moles/Vol] 4.0 mmol/L Normal 3.5-5.1 [facility] Comment on above: Performed By: #### L IPID, TSH, CMP #### [facility] [address] [address] [address] Leesa Urbina Protein [Mass/Vol] 6.6 g/dL Normal 6.4-8.2 [facility] Comment on above: Performed By: #### L IPID, TSH, CMP #### [facility] [address] [place] [address] Dr. Leesa Urbina Sodium [Moles/Vol] 143 mmol/L Normal 136-145 [facility] Comment on above: Performed By: #### L IPID, TSH, CMP #### [facility] [address] [address] [address] Leesa Urbina Urea nitrogen [Mass/Vol] 24.0 mg/dL Critically high 7.0-18.0 [facility] Comment on above: Performed By: #### L IPID, TSH, CMP #### [facility] [address] [address] [address] Leesa Urbina Urea nitrogen/Creatinine [Mass ratio] 19.2 mg/mg Normal [facility] Comment on above: Performed By: #### L IPID, TSH, CMP #### [facility] [address] [address] [address] Leesa Urbina TSHon 11-05-2021 TSH 0.996 uIU/mL Normal 0.358-3.740 [facility] Comment on above: Performed By: #### L IPID, TSH, CMP #### [facility] [address] [address] [address] Leesa Urbina Tobacco Screening.on 022 Adult depression screening assessment No [facility] 250 DO Work Phone: Fall risk assessment a) No falls within the last year [facility] 250 DO Work Phone: Tobacco use status CPHS b) No [facility] 250 DO Work Phone: Vital Signs Date Time Vital Sign Value Performing Clinician Facility 07-13-2023 08:34-0500 Body height 180.3 cm Dev Camp MD Work Phone: [facility] 07-13-2023 08:34-0500 Body mass index (BMI) [Ratio] 23.99 kg/m2 Dev Camp MD Work Phone: [facility] 07-13-2023 08:34-0500 Body weight 78.02 kg Dev Camp MD Work Phone: [facility] 07-13-2023 08:34-0500 Diastolic blood pressure 64 mm[Hg] Dev Camp MD Work Phone: [facility] 07-13-2023 08:34-0500 Heart rate 60 /min Dev Camp MD Work Phone: [facility] 07-13-2023 08:34-0500 Systolic blood pressure 108 mm[Hg] Dev Camp MD Work Phone: [facility] 11-17-2022 14:15-0400 Body height 180.34 cm Imad Asaad Other [employer] Other 11-17-2022 14:15-0400 Body mass index (BMI) [Ratio] 23.71 kg/m2 Imad Asaad Other [employer] Other 11-17-2022 14:15-0400 Body weight 77.11 kg Imad Asaad Other [employer] Other 11-17-2022 14:15-0400 Diastolic blood pressure 78 mm[Hg] Imad Asaad Other [employer] Other 11-17-2022 14:15-0400 Systolic blood pressure 127 mm[Hg] Imad Asaad Other [employer] [place] [employer] Other 07-14-2022 09:08-0500 Body height 180.34 cm Gabriel Bello Work Phone: [facility] [employer] 250 DO Work Phone: 07-14-2022 09:08-0500 Body mass index (BMI) [Ratio] 24.13 kg/m2 Gabrile Bello Work Phone: [facility] [employer] 250 DO Work Phone: 07-14-2022 09:08-0500 Body surface area Derived from formula 1.98 m2 Gabriel Bello Work Phone: [facility] [employer] 250 DO Work Phone: 07-14-2022 09:08-0500 Body weight 78.47 kg Gabriel Bello Work Phone: [facility] 250 DO Work Phone: 07-14-2022 09:08-0500 Diastolic blood pressure 78 mm[Hg] Gabriel Bello Work Phone: [facility] 250 DO Work Phone: 07-14-2022 09:08-0500 Heart rate 68 /min Gabriel Bello Work Phone: [facility] 250 DO Work Phone: 07-14-2022 09:08-0500 Systolic blood pressure 124 mm[Hg] Gabriel Bello Work Phone: [facility] 250 DO Work Phone: 07-03-2021 15:20-0500 Diastolic blood pressure 78 mm[Hg] Gabriel Bello Work Phone: [facility] 250 DO Work Phone: 07-03-2021 15:20-0500 Heart rate 65 /min Gabriel Bello Work Phone: [facility] 250 DO Work Phone: 07-03-2021 15:20-0500 Systolic blood pressure 136 mm[Hg] Gabriel Bello Work Phone: [facility] 250 DO Work Phone: 07-03-2021 15:17-0500 Body height 180.34 cm Gabriel Bello Work Phone: [facility] 250 DO Work Phone: 07-03-2021 15:17-0500 Body mass index (BMI) [Ratio] 24.97 kg/m2 Gabriel Bello Work Phone: [facility] 250 DO Work Phone: 07-03-2021 15:17-0500 Body surface area Derived from formula 2.01 m2 Gabriel Bello Work Phone: [facility] 250 DO Work Phone: 07-03-2021 15:17-0500 Body weight 81.19 kg Gabriel Bello Work Phone: [facility] 250 DO Work Phone: 07-03-2021 15:17-0500 Diastolic blood pressure 80 mm[Hg] Gabriel Bello Work Phone: [facility] 250 DO Work Phone: 07-03-2021 15:17-0500 Systolic blood pressure 151 mm[Hg] Gabriel Bello Work Phone: [facility] 250 DO Work Phone: Encounters Encounter Date Encounter Type Care Provider Facility Start: 11-15-2023 End: 11-15-2023 ambulatory GABRIEL BELLO Not Available Start: 10-26-2023 End: 10-26-2023 ambulatory LAURA Alicia BARROW Not Available Start: 10-08-2023 End: 10-08-2023 ambulatory AGBRIEL BELLO Not Available Start: 10-07-2023 End: 10-07-2023 ambulatory GABRIEL BELLO Not Available Start: 10-07-2023 End: 10-07-2023 ambulatory GABRIEL BELLO Not Available Start: 09-13-2023 End: 09-13-2023 ambulatory Miller Donald Facility:[facility] Start: 09-13-2023 End: 09-13-2023 ambulatory DO Gabriel Bello Work Phone: [facility] Work Phone: Start: 09-13-2023 End: 09-13-2023 Patient encounter procedure DO Gabriel Bello Work Phone: [facility] Work Phone: Start: 07-13-2023 End: 07-13-2023 Office outpatient visit 25 minutes Dev Camp MD Work Phone: [facility] Comment on above: Benign essential hyp ertension (Primary Dx); Mixed hyperlipidemia; Paroxysmal atrial fibrillation (CMS/HCC); Former smoker Start: 07-13-2023 End: 07-13-2023 ambulatory DEV CAMP [facility] Start: 05-26-2023 End: 05-26-2023 ambulatory CHRIS PATEL Not Available Start: 05-12-2023 End: 05-12-2023 ambulatory GABRIEL BELLO Not Available Start: 04-26-2023 End: 04-26-2023 ambulatory LAURA BARROW Not Available Start: 12-24-2022 End: 12-24-2022 ambulatory Imad Asaad Facility:[facility] Start: 11-26-2022 End: 11-26-2022 ambulatory Imad Asaad Facility:[facility] Start: 11-26-2022 End: 11-26-2022 ambulatory DO Gabriel Bello Work Phone: [facility] Work Phone: Start: 11-26-2022 End: 11-26-2022 Patient encounter procedure DO Gabriel Bello Work Phone: [facility] Work Phone: Start: 11-17-2022 End: 11-17-2022 ambulatory Imad Asaad Other [facility] [employer] Other Start: 11-17-2022 Office outpatient ne w 45 minutes Imad Asaad [facility] Start: 11-17-2022 Telephone encounter Imad Asaad [facility] Start: 09-03-2022 End: 09-04-[address] GABRIEL BELLO Facility: Start: 07-14-2022 Office outpatient visit 25 minutes Gabriel Bello Work Phone: [place] [address] DO Work Phone: Start: 07-14-[address] Gabriel Kulkarni Facility:[id number] Start: 05-25-2022 End: 05-26-[address] GABRIEL BELLO Facility:[facility] Start: 05-06-2022 End: 05-07-[address] GABRIEL BELLO Facility:[facility] Start: 03-27-2022 Rx Renewal Gabriel mae Work Phone: [facility] 250 DO Work Phone: Start: 12-05-2021 End: 12-05-2021 Patient encounter procedure DO Gabriel Bello Work Phone: [facility] Start: 11-20-2021 End: 11-21-[address] DOCTOR BISHOP Facility:[facility] Start: 11-05-2021 End: 11-06-[address] GABRIEL BELLO Facility:[facility] Start: 07-03-2021 Office outpatient visit 25 minutes Gabriel Bello Work Phone: [facility] 250 DO Work Phone: Start: 03-05-2021 Rx Renewal Marina lozada MD Work Phone: [facility] 250 DO Work Phone: Start: 07-12-2020 End: 07-12-2020 Discharged Recurring Gabriel Bello [facility]Covid Vaccine Procedures Date Procedure Procedure [...] By: #### L IPID, TSH, CMP #### [facility] [address] [place] [address] Dr. Leesa Urbina Start: 11-20-[address] DOCTOR BISHOP Comment on above: Performed By: #### P SAD #### [facility] [address] [address] [address] Leesa Urbina Appendectomy Gabriel daniel Work Phone: Cataract surgery Gabriel Alicia morris Work Phone: Colonoscopy Gabriel A Changma n Work Phone: Comment on above: [id number] Jovanny Yu; Operation on lip Gabriel Alicia morris Work Phone: Prostatectomy Gabriel mae Work Phone: Plan of Treatment Date Care Activity Detail Author Start: 07-18-2024 End: 07-18-2024 Patient encounter procedure 07/18/2024 8:50 AM EST Office Visit [facility] [address] [address] Dev Camp MD 703 [facility] [address] [address] [facility] Start: 07-13-2023 FUV, Provider: Dev Camp, Status: Pen, Time: 8:50 AM FUV, Provider: Dev Camp, Status: Pen, Time: 8:50 AM [facility] Work Phone: Start: 07-14-2022 FUV, Provider: Dev Camp, Status: Pen, Time: 9:10 AM FUV, Provider: Dev Camp, Status: Pen, Time: 9:10 AM [facility] Work Phone: Start: 06-24-2021 FUV, Provider: Dev Camp, Status: Pen, Time: 10:15 AM FUV, Provider: Dev Camp, Status: Alon, Time: 10:15 AM [facility] 250 DO Work Phone: Start: 1960 DTaP/Tdap/Td Vaccine s (1 - Tdap) DTaP/Tdap/Td Vaccines (1 - Tdap) [facility] Start: 1957 Urine screening for protein Diabetes: Urine Protein Screening [facility] Start: 1948 Diabetic foot examination Diabetes: Foot Exam [facility] Start: 1948 Glaucoma screening Diabetes: R etinopathy Screening [facility] Start: 1938 Hemoglobin A1c measurement Diabetes: Hemoglobin A1C [facility] Start: 1938 Lipid panel Lipid Panel [facility] Start: 1938 Medicare Annual Wellness Visit Medicare Annual Wellness Visit (AWV) [facility] HIV 1+2 Ab+HIV1 p24 Ag [Presence] in Serum or Plasma by Immunoassay [facility] Immunizations Immunization Date Immunization Notes Care Provider Fa cili 04-03-2022 Moderna COVID-19 Biv al Booster 50 MCG/0.5ML Intramuscular Suspension Gabriel Bello Work Phone: [facility] 250 DO Work Phone: 03-10-2022 Fluad Quadrivalent 0 .5 ML Intramuscular Prefilled Syringe Gabriel Bello Work Phone: [facility] 250 DO Work Phone: 12-19-2021 Moderna COVID-19 Vac cine 100 MCG/0.5ML Intramuscular Suspension Gabriel Bello Work Phone: [facility] 250 DO Work Phone: 03-20-2021 Moderna COVID-19 Vac cine 100 MCG/0.5ML Intramuscular Suspension Gabriel Bello Work Phone: [facility] 03-12-2021 influenza, high dose seasonal, preservative-free Gabriel Bello Work Phone: [facility] 250 DO Work Phone: 02-26-2021 Fluzone High-Dose Quadrivalent 0.7 ML Intramuscular Suspension Prefilled Syringe Gabriel Bello Work Phone: [facility] 250 DO Work Phone: 07-12-2020 COVID-19 mRNA-1273 (Moderna) [facility] 06-15-2020 COVID-19 mRNA-1273 (Moderna) [facility] 03-15-2020 Fluad Quadrivalent 0 .5 ML Intramuscular Prefilled Syringe Gabriel Bello Work Phone: [facility] DO Work Phone: 02-24-2020 influenza, high dose seasonal, preservative-free Gabriel Bello Work Phone: [facility] DO Work Phone: 03-11-2019 zoster vaccine recombinant Gabriel Bello Work Phone: [facility] 250 DO Work Phone: 03-01-2019 influenza, high dose seasonal, preservative-free Gabriel A Ace Work Phone: [facility] 250 DO Work Phone: 02-21-2019 influenza, high dose seasonal, preservative-free Gabriel A Ace Work Phone: [facility] 250 DO Work Phone: 12-22-2018 zoster vaccine recombinant Gabriel Bello Work Phone: [facility] DO Work Phone: 02-25-2018 influenza, high dose seasonal, preservative-free Gabriel A Ace Work Phone: [place] [address] DO Work Phone: 03-16-2017 influenza, high dose seasonal, preservative-free Gabriel Bello Work Phone: [place] [address] DO Work Phone: 05-24-2016 pneumococcal conjuga te vaccine, 13 valent Gabriel Bello Work Phone: [facility] 03-22-2015 influenza, high dose seasonal, preservative-free Gabriel Bello Work Phone: [place] [address] DO Work Phone: 05-24-2012 pneumococcal polysaccharide vaccine, 23 valent Gabriel Bello Work Phone: [facility] 05-31-2009 novel influenza-H1N1 -09, preservative-free, injectable Gabriel Bello Work Phone: [place] [address] DO Work Phone: Payers Date Payer Category Payer Medicare [id number] 2022 Self-pay [id number] 1959 Private Health Insurance 101 [id number] 1938 Unknown [id number] 2.16. [id number] 1938 Unknown [id number] 2.16.84 0.1.389951.3.579.2.593 1938 Unknown [id number] 2.16.84 0.1.442422.3.579.2.593 1938 Unknown [id number] 2.16.84 0.1.223527.3.579.2.593 1938 Unknown [id number] 2.16.84 0.1.119281.3.579.2.593 1938 Unknown [id number] 2.16.84 0.1.563626.3.579.2.593 1938 Unknown [id number] 2.16.84 0.1.322139.3.579.2.1259 1938 Unknown [id number] 2.16.84 0.1.825254.3.579.2.1259 1938 Unknown [id number] 2.16.84 0.1.243383.3.579.2.1259 1938 Unknown [id number] 2.16.84 0.1.712755.3.579.2.1259 1938 Unknown [id number] 2.16.84 0.1.234200.3.579.2.1259 1938 Unknown [id number] 2.16.840 .1.621975.3.579.2.1259 1938 Unknown [id number] 2.16.840 .1.211988.3.579.2.1259 1938 Unknown [id number] 2.16.840 .1.948125.3.579.2.1259 1938 Unknown [id number] 2.16.8 40.1.886504.3.579.2.1244 Medicare Medicare [id number] Private Health Insurance Self Pay [facility] [id number] Unknown [employer] Unknown [id number] 2.16.8 40.1.775775.3.579.2.531 Unknown [id number] 2.16.8 40.1.124194.3.579.2.531 Unknown [id number] 2.16.8 40.1.300690.3.579.2.531 Social History Date Type Detail Facility Tobacco smoking status KSIS Unknown if ever smoked [facility] Start: 1940 Sex Assigned At Male F [facility] Start: 07-13-2023 Never a smoker Never a smoker -[facility] 250 DO Work Phone: Comment on above: 2-3 drinks a month; Start: 12-05-2021 End: 12-24-2022 Tobacco smoking status NHIS Ex-smoker (finding) [facility] Start: 07-13-2023 Sex Assigned At N [facility] [employer] Other End: 05-24-1989 History of tobacco use Current smoker [facility] Work Phone: End: 05-24-1989 History of tobacco use Cigarette Smoker [facility] Work Phone: Start: 07-13-2023 Tobacco use and exposure Smokeless tobacco non-user [facility] Work Phone: Start: 07-13-2023 Alcohol intake Lifetime non-d joe (finding) [facility] Work Phone: Start: 1940 Sex Assigned At Not on file [facility] Work Phone: Start: 07-03-2023 End: 07-13-2023 Exposure to SARS-CoV-2 (event) Not sure [facility] Goals Date Patient Goal Desired Activity [...] by mouth once daily., Disp: , Rfl: xutvsu-fylyzhba-mnppeno (Creon) 24,000-76,000 -120,000 unit capsule, Take 1 [...] discussion and plan. documented in this encounter [facility] Work Phone: Instructions 07-13-2023 Patient Instructions [...] of your visit. documented in this encounter [facility] Work Phone: Evaluation note 11-17-2022 Note Date & Type Note Facility 11-17-2022 Evaluation note Encounter Date Diagnosis Assessment Notes Oct, Change in bowel habits (ICD-10 - R19.4) Oct, Diverticulosis (ICD-10 - K57.90) Oct, IBS (irritable bowel syndrome) (ICD-10 - K58.9) Oct, Pancreatic insufficiency (ICD-10 - K86.89) [facility] [employer] Other History of Present illness Narrative 07-14-2022 [...] necessary and we suggest follow-up next year -[facility] 250 DO Work Phone: Evaluation note Note Date & Type Note Facility Evaluation note No assessment information [facility] Work Phone: Evaluation note Note Date & Type Note Facility Evaluation note No Information [facility] [employer] Other Evaluation note Note Date & Type Note Facility Evaluation note Diagnosis Benign essential hypertension- Primary Essential hypertension, benign Mixed hyperlipidemia Paroxysmal atrial fibrillation (CMS/HCC) Atrial fibrillation Former smoker Personal history of tobacco use, presenting hazards to health documented in this encounter [facility] Work Phone: History general Narrative - [...] History Right cataract surge ry per in [place], [place]. 10-28-17 Surgical History Mohs repair / left upper lip Hospitalization History see above [employer] Other History of Present illness Narrative Note [...] suggest continued therapy as before without change. -[facility] 250 DO Work Phone: Advance Directives No [...] Procedures ECG 12 Lead Dev Camp MD [address] [place] [address], [place] [phone] Referral ID Status Reason Start Date Expiration Date V isits Requested Visits Authorized [id number] Authorized 07/13/2023 07/12/2024 1 1 Specialty Diagnoses / Procedures Referred By Contac t Referred To Contact Cardiology Diagnoses Paroxysmal atrial fibrillation (CMS/HCC) Procedures Follow Up In Cardiology Dev Camp MD [address] [place] [address], [place] [phone] Dev Camp MD [address] [place] [address], [place] [phone] Referral ID Status Reason Start Date Expiration Date V isits Requested Visits Authorized [id number] Authorized 07/13/2023 07/12/2024 1 1 Additional Source [...] Active Jj Garcia MD Attending Provider Active Nurse Rn Bsn Relationship Specialty Start Date End Date Gabriel Bello DO [address] [place] [address] PCP - General 05/24/99 Team Status: Inactive [...] section and content) DATE CREATED AUTHOR 07/15/2022 [facility] DATE CREATED AUTHOR AUTHOR'S ORGANIZ ATION 07/15/2022 [employer] DATE CREATED AUTHOR AUTHOR'S ORGANIZ ATION 09/10/2022 [facility] DATE CREATED AUTHOR AUTHOR'S ORGANIZ ATION 09/18/2023 [facility] DATE CREATED AUTHOR AUTHOR'S ORGANIZ ATION 11/15/2023 [facility] EPIC DATE CREATED AUTHOR AUTHOR'S ORGANIZ ATION 12/29/[address] [facility] REASON FOR VISIT (unrecogniz ed section and content) Reason Comments Annual Exam Specialty Diagnoses / Procedures Referred By Contac t Referred To Contact Diagnoses Paroxysmal atrial fibrillation (CMS/HCC) Procedures ECG 12 Lead Dev Camp MD 703 [facility] [place] [address] Referral ID Status Reason Start Date Expiration Date V isits Requested Visits Authorized [id number] Authorized 07/13/2023 07/12/2024 1 1 FOR RECORDS [...] BE BASED ON THE PRIMARY CLINICAL RECORDS. [facility]. provides no warranty or guarantee of the accuracy or completeness of information in this document.
[2024-01-03 07:29] LABS: Basophils Absolute Auto 0.1 10^3/uL (0.0-0.1); Eosinophils Absolute Auto 0.4 10^3/uL (0.0-0.7); Eosinophils Percent Auto 4.7 % (0.9-7.0); Hematocrit 37.9 % (42.0-54.0); Hemoglobin 12.4 g/dL (14.0-18.0); Immature Granulocytes Abs Auto 0.09 10^3/uL (0.00-0.03); Lymphocytes Absolute Auto 3.1 10^3/uL (1.2-3.8); Lymphocytes Percent Auto 33.5 % (20.5-60.0); Mean Corpuscular HGB Conc 32.7 g/dL (29.9-35.2); Mean Corpuscular Hemoglobin 31.1 pg (25.9-34.0); Mean Platelet Volume 10.1 fL (9.5-13.5); Monocytes Absolute Auto 0.6 10^3/uL (0.3-0.8); Neutrophils Percent Auto 53.8 % (43.0-75.0); Platelet Count 183 10^3/uL (150-450); Red Blood Count 3.99 10^6/uL (4.70-6.10); Red Cell Distribution Width 13.4 % (11.0-15.0); White Blood Count 9.3 10^3/uL (4.0-11.0)
[2024-01-03 08:10] LABS: Alanine Aminotransferase 43 U/L (16-63); Albumin Globulin Ratio 1.1; Albumin Level 3.3 g/dL (3.4-5.0); Alkaline Phosphatase 88 U/L (46-116); Anion Gap 13.2; Aspartate Amino Transferase 24 U/L (15-37); BUN Creatinine Ratio 15.6; Bilirubin Total 0.7 mg/dL (0.2-1.0); Calcium 8.8 mg/dL (8.5-10.1); Carbon Dioxide 26.3 mmol/L (21.0-32.0); Chloride 107 mmol/L (98-107); Estimated GFR (African America >60 (>=60); Estimated GFR (Non-African Ame 53 (>=60); Glucose 146 mg/dL (74-106); Lactate Dehydrogenase 181 U/L (85-227); Potassium 3.5 mmol/L (3.5-5.1); Sodium 143 mmol/L (136-145); Total Protein 6.3 g/dL (6.4-8.2)
[2024-01-03 09:59] LABS: Prostate Specific Antigen Dx 0.17 ng/mL (<=4.00)
[2024-01-04 04:07] LABS: Testosterone <3 ng/dL (264-916)
== END 2024-01-03 07:16 | disposition home or self-care (01) ==
LOC: LAB 07:16
PROVIDERS: PCP Internal Medicine; Visit Provider Urology
DX: C61 Malignant neoplasm of prostate (principal); M81.0 Age-related osteoporosis without current pathological fracture
CPT/HCPCS: 36415; 80053; 82306; 83615; 84153; 84403; 85025

== ENCOUNTER 2024-01-03 07:53 | Outpatient (RCR) | payer MEDICARE, SELFPAY ==
[2024-01-03] MEDS: DENOSUMAB 120 MG/1.7 ML VIAL SQ (13:57)
[2024-01-03 14:15] VITALS: BP 148/73; PULSE 76; TEMP 36.4; O2SAT 97
== END 2024-01-22 23:59 | disposition home or self-care (01) ==
LOC: INF 07:53
PROVIDERS: PCP Internal Medicine
DX: C61 Malignant neoplasm of prostate (principal); M81.0 Age-related osteoporosis without current pathological fracture
CPT/HCPCS: 36415; 80053; 82306; 83615; 84153; 84403; 85025; 96372; J0897

== ENCOUNTER 2024-01-10 22:34 | Emergency (ER) | payer MEDICARE, SELFPAY ==
[2024-01-10 22:39] VITALS: BP 228/120; PULSE 74; TEMP 36.4; O2SAT 98; BMI 23.7
--- OUTSIDE RECORDS SUMMARY | 2024-01-10 22:39 | XMS_ITS | CCD ---
Author Organization [facility] Inform ion Partnership [facility] Care Team Providers Care Ad Taker Name Role Phone Gabriel Bello Primary Care Provider [phone] Ryan Negron Attending Provider Gabriel Bello Unavailable Unavailable Unavailable DO Gabriel Bello Primary Care Provider DO Juan Ventura Attending Provider [phone] Dr. Gabriel Bello Primary Care Unavai armani [...] Unavailable DO Gabriel Bello Primary Care Provider [phone] MD Jj Garcia Attending Provider [phone] Gabriel Bello DO Primary Care Provider DO Gabriel Bello Primary Care Provider [phone] NON STAFF Attending Provider Unavailable Asaad, Imad [...] Drugs] Allergy to drug (finding) [place] [address] DO Work Phone: (5 sources) Sulfonamides (Antibiotic); Translations: [Sulfa (Sulfonamide Antibiotics)] Allergy to substance 2 [facility] (1 source) Sulfonamides (Antibiotic) Drug allergy (disorder) [facility] Repository (2 sources) Substance with sulfonamide structure and antibacterial mechanism of action (substance) Drug allergy Unknown [facility] Other Medications Current Medications Medication Drug Class(es) Dates Sig (Normalized) Sig (Original) amylase 334269 unt / lipase 41176 unt / protease 33737 unt delayed release oral capsule (3 sources) Start: 11-17-2022 take 1 capsule by mouth three times daily at mealtime wkvfql-zwzicuje-en ylase (Creon) 24,000-76,000 -120,000 unit capsule Take 1 capsule by mouth 3 times a day with meals. 0 11/17/2022 Active Start: 11-17-2022 Creon 83826-30 000 UNIT 1 with each meal Orally [...] December 05, 2021 12:00am polyethylene glycol 3350 760739 mg / potassium chloride 2970 mg / sodium bicarbonate 6740 mg / sodium chloride 5860 mg / sodium sulfate 00560 mg powder for oral solution (2 sources) [...] mouth see administration instructions. 0 Active Vit C,Q-Cq-Zbmue-Lutein -Zeaxan (Preservision Areds-2) 250-90-40-1 mg Capsule (3 sources) Start: 12-05-2021 Vit C,A-Ms-Wvrtv-Lutein- Zeaxan (Preservision Areds-2) 250-90-40-1 mg Capsule Active 1 TAB PO Every morning December 05, 2021 12:47pm Start: 12-05-2021 Vit C,E-Zn-Mushroom Picker kz-Svgqel-Bgquoo (Preservision Areds-2) 250-90-40-1 mg Capsule Active 1 [...] ascorbic acid 226 mg / beta carotene 40367 unt / cuprous oxide 0.8 mg / [...] te Episodic/Chronic Other aftercare (1 source) Other assisted (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; Translations: [OTH USP CURRENT DRUG THERAPY] Onset: 11-06-2021 Episodic Other [...] sb-mton 09-13-2023 PET psma initial tx sb-mt [facility] [place] [place] [address] Nuclear Medicine Report Signed Patient: Dev Walsh MR#: [id number] : 1940 Acct:[id number] Age/Sex: 83 / M ADM Date: 09/13/23 Loc: Room: Type: [facility] Attending Dr: NON STAFF Copies to: NON [...] Jordan Story M.D.09/13/2023 3:20 PM Dictation Location: [place] [address] Transcribed By: [facility] 09/13/23 1520 Dictated By: Jordan Story II, MD 09/13/23 1515 Signed By: 09/13/23 1520 Normal [facility] ECG 12 Leadon 07-13-2023 Sinus rhythm with frequent PVCs Otherwise normal EKG QTc 444 ms [facility] Work Phone: Joni 12-24-2022 L Specimen: [id number] Received: 12/24/22 Status: DEONDRE Lewis Num: [id number] Spec Type: Surgical Subm Dr: Jj Garcia MD Tissues: A Colon Biopsy (RANDOM COLON) B Colon Biopsy (ASCENDING POLYP) Procedures: HE/4, Gross/Micro L4/2 Age/ Patient Sex Location Account Attending Physician Dev Walsh/Jed [id number] Jj Garcia MD SPEC NUM: [id number] RECD: 12/24/22 STATUS: DEONDRE LEWIS NUM: [id number] JARRET: 12/24/22- [facility] DR: Jj Garcia MD ENTERED: 12/24/22 ANSELMO [...] submitted in one cassette labeled B1. Specimen: [id number] Received: 12/24/22 Status: DEONDRE Joshua Num: [id number] Spec Type: Surgical Subm Dr: Jj Garcia MD Tissues: A Colon Biopsy (RANDOM COLON) B Colon Biopsy (ASCENDING POLYP) Procedures: Lizett VASQUEZ/Saurabh L4/2 Patient: Dev Walsh [id number] (Continued) Specimen: [id number] Received: 12/24/22 (Continued) Signed (signature on file) Natan Davidson MD 12/29/22 1658 Specimen: [id number] Received: 12/24/22 Status: DEONDRE Lewis Num: [id number] Spec Type: Surgical Subm Dr: Jj Garcia MD Tissues: A Colon Biopsy (RANDOM COLON) B Colon Biopsy (ASCENDING POLYP) Procedures: Lizett VASQUEZ/Saurabh L4/2 Patient: NicoDev Brendon [id number] (Continued) Specimen: [id number] Received: 12/24/22 (Continued) Microscopic Description A. Two H E slides reviewed. The microscopic examination confirms the diagnosis. B. Two H E slides reviewed. The microscopic examination confirms the diagnosis. CPT Codes 16327w7 Specimen: [id number] Received: 12/24/22 Status: DEONDRE Lewis Num: [id number] Spec Type: Surgical Subm Dr: Jj Garcia MD Tissues: A Colon Biopsy (RANDOM COLON) B Colon Biopsy (ASCENDING POLYP) Procedures: Lizett VASQUEZ/Saurabh L4/2 Patient: Dev Walsh [id number] (Continued) Signed (signature on file) Natan Davidson MD 12/29/22 0165 Normal [facility] Blood Urea Nitrogenon 2022 Urea nitrogen [Mass/Vol] 31 mg/dL High 7-25 [facility] Comment on above: Order Comment: Reaso n for Exam Change in bowel habits Performed By: #### T SH3, BUN, CREAT #### [address] C reactive protein [Mass/vol ume] in Serum or PlasmaOrdered By: Jj Garcia on 11-26-2022 CRP [Mass/Vol] < 0.5 mg/dL 0.0-0.5 [facility] C-Reactive Proteinon 023 CRP [Mass/Vol] mg/L Normal 0.0-0.5 [facility] Comment on above: Order Comment: Reaso n for Exam Change in bowel habits Result Comment: PERF ORMED BY: [place] [address] PATHOLOGIST [employer] OPERATOR WILMA MANTILLA M.D. Performed By: #### C RP, ESR #### [address] #### HIV SCREEN #### [facility] , CT abdomen pelvis w conon CT abdomen pelvis w con [facility] [place] [address] [place] [address] CT Scan Report Signed Patient: Dev Walsh MR#: [id number] : 1940 Acct:[id number] Age/Sex: 82 / M ADM Date: 11/26/22 Loc: CT Room: Type: [facility] Attending Dr: Jj Garcia MD Copies to: [...] Mandujano Jr., D.OCassidy11/26/2022 7:19 PM Dictation Location: [place] [address] Transcribed By: [facility] 11/26/221918 Dictated By: Jered Mandujano Jr, DO 11/26/221906 Signed By: 11/26/221918 Normal [facility] Creatinineon 11-26-2022 Creatinine [Mass/Vol] 1.55 mg/dL High 0.70-1.30 [facility] Comment on above: Order Comment: Reaso n for Exam Change in bowel habits Performed By: #### T SH3, BUN, CREAT #### [facility] [address] GFR/1.73 sq M.predicted MDRD (S/P/Bld) [Vol rate/Area] 43.863 mL/min/{1.73_m2} Normal [facility] Comment on above: Order Comment: Reaso n for Exam Change in bowel habits Performed By: #### T SH3, BUN, CREAT #### [facility] [address] [place] [id number] [facility] Creatinine [Mass/volume] in Serum or PlasmaOrdered By: Gabriel Bello on 11-26-2022 Creatinine [Mass/Vol] 1.55 mg/dL 0.70-1.30 [facility] Erythrocyte Sedimentation Ra juli 11-26-2022 ESR (Bld) [Velocity] 18 mm/h Normal 0-19 [facility] Comment on above: Order Comment: Reaso n for Exam Change in bowel habits Result Comment: PERF ORMED BY: [place] [address] PATHOLOGIST [employer] OPER[employer] WILMA MANTILLA M.D. Performed By: #### C RP, ESR #### [address] #### HIV SCREEN #### [facility] , Erythrocyte sedimentation ra te by Photometric methodOrdered By: Jj Garcia on 11-26-2022 ESR Photometric method (Bld) [Velocity] 18 mm/hr 0-19 [facility] HIV 1/O/2 Antigen/Antibodyon 11-26-2022 HIV Screen 4th Generation Non-Reactive Normal Non Reactive [facility] Comment on above: Order Comment: Reaso n for Exam Change in bowel habits Result Comment: HIV Negative HIV-1/HIV-2 antibodies and HIV-1 p24 antigen were NOT detected. There is no laboratory evidence of HIV infection. Performed at: [facility] [id number] Wholesale Manager: Miguel Cullen PhD, Phone: [phone] PERFORMED BY: [place] [address] PATHOLOGIST [employer] OPERATOR WILMA MANTILLA M.D. Performed By: #### C RP, ESR #### [address] #### HIV SCREEN #### [facility] , No Panel InformationOrdered By: Gabriel Bello on 11-26-2022 Estimated GFR (CKD-EPI) 43.863 mL/Min [facility] Creatinine Clearance (Chem N/A [facility] Thyroid Stimulating Hormoneo n 11-26-2022 TSH Qn 1.23 m[IU]/L Normal 0.45-5.33 [facility] Comment on above: Order Comment: Reaso n for Exam Change in bowel habits Result Comment: PERF ORMED BY: [place] [address] PATHOLOGIST [employer] OPERATOR WILMA MANTILLA M.D. Performed By: #### T SH3, BUN, CREAT #### [facility] [address] Thyrotropin [Units/volume] i n Serum or PlasmaOrdered By: Jj Garcia on 11-26-2022 TSH Qn 1.23 m[IU]/L 0.45-5.33 [facility] Urea nitrogen [Mass/volume] in Serum or PlasmaOrdered By: Gabriel Bello on 11-26-2022 Urea nitrogen [Mass/Vol] 31 mg/dL 7 [facility] PANCREATIC ELASTASE FECALon 09-08-2022 Pancreatic Elastase, Fecal 86 ug Elast./g Critically low >200 [facility] Comment on above: Result Comment: Re sults verified by repeat testing Severe Pancreatic Insufficiency: <100 Moderate Pancreatic Insufficiency: 100 - 200 Normal: >200 Performed By: #### L IPID, TSH, CMP #### [facility] [address] [place] [address] Dr. Leesa Urbina CELIAC ANTIBODIES PROFILEon 09-04-2022 Deamidated Gliadin Abs, IgA 8 units Normal 0-19 [facility] Comment on above: Result Comment: Nega tive 0 - 19 Weak Positive 20 - 30 Moderate to Strong Positive >30 Performed By: #### C ELIACP #### [facility] [address] [place] [address] Dr. Leesa Urbina Deamidated Gliadin Abs, IgG 4 units Normal 0-19 [facility] Comment on above: Result Comment: Nega tive 0 - 19 Weak Positive 20 - 30 Moderate to Strong Positive >30 Performed By: #### C ELIACP #### [facility] [address] [place] [address] [address] Leesa Urbina Endomysial Antibody IgA Negative Normal Negative [facility] Comment on above: Performed By: #### C ELIACP #### [facility] [address] [place] [address] [address] Leesa Urbina Immunoglobulin A, Qn, Serum 143 mg/dL Normal 61-437 [facility] Comment on above: Performed By: #### C ELIACP #### [facility] [address] [place] [address] Dr. Leesa Urbina t-Transglutaminase (tTG) IgA <2 [...] ELIACP #### [facility] [address] [place] [address] Dr. Leesa Urbina t-Transglutaminase (tTG) IgG 6 U/mL Critically high 0-5 [facility] Comment on above: Result Comment: Nega tive 0 - 5 Weak Positive 6 - 9 Positive >9 Performed By: #### C ELIACP #### [facility] [address] [place] [address] Dr. Leesa Urbina CBC AUTO DIFFon 09-03-2022 BASO # 0.1 103/ul Normal 0.0-0.1 [facility] Comment on above: Performed By: #### L IPID, TSH, CMP #### [facility] [address] [place] [address] Dr. Leesa Urbina Basophils/100 WBC (Bld) 1.1 % Normal 0.2-2.0 [facility] Comment on above: Performed By: #### L IPID, TSH, CMP #### [facility] [address] [place] [address] Dr. Leesa Urbina EO # 0.6 103/ul Normal 0.0-0.7 [facility] Comment on above: Performed By: #### L IPID, TSH, CMP #### [facility] [address] [place] [address] Dr. Leesa Urbina Eosinophils/100 WBC (Bld) 7.9 % Critically high 0.9-7.0 [facility] Comment on above: Performed By: #### L IPID, TSH, CMP #### [facility] [address] [place] [address] Dr. Leesa Urbina Erythrocyte distribution width (RBC) [Ratio] 13.6 % Normal 11.0-15.0 [facility] Comment on above: Performed By: #### L IPID, TSH, CMP #### [facility] [address] [place] [address] Dr. Leesa Urbina Hematocrit (Bld) [Volume fraction] 34.4 % Critically low 42.0-54.0 [facility] Comment on above: Performed By: #### L IPID, TSH, CMP #### [facility] [address] [place] [address] Dr. Leesa Urbina Hemoglobin (Bld) [Mass/Vol] 11.4 g/dL Critically low 14.0-18.0 [facility] Comment on above: Performed By: #### L IPID, TSH, CMP #### [facility] [address] [place] [address] Dr. Leesa Urbina IG # 0.02 10e3/ul Normal 0.00-0.03 [facility] Comment on above: Performed By: #### L IPID, TSH, CMP #### [facility] [address] [place] [address] Dr. Leesa Urbina IG % 0.3 % Normal 0.0-0.5 [facility] Comment on above: Performed By: #### L IPID, TSH, CMP #### [facility] [address] [place] [address] Dr. Leesa Urbina LYMPH # 2.1 103/ul Normal 1.2-3.8 [facility] Comment on above: Performed By: #### L IPID, TSH, CMP #### [facility] [address] [place] [address] Dr. Leesa Urbina Lymphocytes/100 WBC (Bld) 28.1 % Normal 20.5-60.0 [facility] Comment on above: Performed By: #### L IPID, TSH, CMP #### [facility] [address] [place] [address] Dr. Leesa Urbina MANUAL DIFF REQ NO Normal [facility] Comment on above: Performed By: #### L IPID, TSH, CMP #### [facility] [address] [place] [address] Dr. Leesa Urbina MCH (RBC) [Entitic mass] 31.1 pg Normal 25.9-34.0 [facility] Comment on above: Performed By: #### L IPID, TSH, CMP #### [facility] [address] [place] [address] Dr. Leesa Urbina MCHC (RBC) [Mass/Vol] 33.1 g/dL Normal 29.9-35.2 [facility] Comment on above: Performed By: #### L IPID, TSH, CMP #### [facility] [address] [place] [address] Dr. Leesa Urbina MCV (RBC) [Entitic vol] 93.7 fL Normal 80.0-94.0 [facility] Comment on above: Performed By: #### L IPID, TSH, CMP #### [facility] [address] [place] [address] Dr. Leesa Urbina MONO # 0.4 103/ul Normal 0.3-0.8 [facility] Comment on above: Performed By: #### L IPID, TSH, CMP #### [facility] [address] [place] [address] Dr. Leesa Urbina Monocytes/100 WBC (Bld) 6.0 % Normal 1.7-12.0 [facility] Comment on above: Performed By: #### L IPID, TSH, CMP #### [facility] [address] [place] [address] Dr. Leesa Urbina NEUT # 4.2 103/ul Normal 1.4-6.5 [facility] Comment on above: Performed By: #### L IPID, TSH, CMP #### [facility] [address] [place] [address] Dr. Leesa Urbina Neutrophils/100 WBC (Bld) 56.6 % Normal 43.0-75.0 [facility] Comment on above: Performed By: #### L IPID, TSH, CMP #### [facility] [address] [place] [address] Dr. Leesa Urbina Platelet mean volume (Bld) [Entitic vol] 10.1 fL Normal 9.5-13.5 [facility] Comment on above: Performed By: #### L IPID, TSH, CMP #### [facility] [address] [place] [address] [address] Leesa Urbina PLT 195 103/ul Normal 150-450 [facility] Comment on above: Performed By: #### L IPID, TSH, CMP #### [facility] [address] [place] [address] [address] Leesa Urbina RBC 3.67 106/ul Critically low 4.70-6.10 [facility] Comment on above: Performed By: #### L IPID, TSH, CMP #### [facility] [address] [place] [address] Dr. Leesa Urbina WBC 7.3 103/ul Normal 4.0-11.0 [facility] Comment on above: Performed By: #### L IPID, TSH, CMP #### [facility] [address] [place] [address] Dr. Leesa Urbina FERRITINon 09-03-2022 Ferritin [Mass/Vol] 44.0 ng/mL Normal 26.0-388.0 [facility] Comment on above: Performed By: #### F ERR, FETIBC #### [facility] [address] [place] [address] Dr. Leesa Urbina IRON AND TIBCon 09-03-2022 % SATURATION 23.5 % Normal [facility] Comment on above: Performed By: #### F ERR, FETIBC #### [facility] [address] [place] [address] Dr. Leesa Urbina Iron [Mass/Vol] 69.0 ug/dL Normal 65.0-175.0 [facility] Comment on above: Performed By: #### F ERR, FETIBC #### [facility] [address] [place] [address] Dr. Leesa Urbina TIBC DIRECT 294.0 ug/dL Normal 250.0-450.0 [facility] Comment on above: Performed By: #### F ERR, FETIBC #### [facility] [address] [place] [address] [address] Leesa Urbina Office Visit (Cardiology)on 07-14-2022 Follow-up visit Diagnoses/Problems Assessed Anticoagulated (V58.61) (Z79.01) Benign essential hypertension (401.1) (I10) Hyperlipidemia (272.4) (E78.5) Paroxysmal atrial fibrillation (427.31) (I48.0) Diabetes mellitus (250.00) (E11.9) Body mass index (BMI) of 24.0 to 24.9 in adult (V85.1) (Z68.24) Never a smoker Orders SocHx: Never a smoker Tobacco Use Screening; Status:Complete; Done: [id number] Patient Instructions Please bring all medicines, vitamins, [...] negative for complaint. Vitals Vital Signs Recorded: [id number] 09:08AM Heart Rate68, L Radial Hyxzexdi857, LUE, Sitting Wdxbkixxx49, LUE, Sitting Height5 ft 11 in Vbfzzs286 lb BMI Phmiaahvqv76.13 kg/m2 BSA Calculated1.98 Tobacco Useb) No PHQ-2 [...] Screening.on 023 Adult depression screening assessment No [facility] [email or web address] Heart-[facility]ya 250 DO Work Phone: Fall risk assessment a) No falls within the last year [facility] 250 DO Work Phone: Tobacco use status CPHS b) No [facility] 250 DO Work Phone: CBC AUTO DIFFon 05-06-2022 BASO # 0.1 103/ul Normal 0.0-0.1 [facility] Comment on above: Performed By: #### C BC #### [facility] [address] [place] [address] Dr. Leesa Urbina Basophils/100 WBC (Bld) 1.4 % Normal 0.2-2.0 [facility] Comment on above: Performed By: #### C BC #### [facility] [address] [place] [address] Dr. Leesa Urbina EO # 0.4 103/ul Normal 0.0-0.7 [facility] Comment on above: Performed By: #### C BC #### [facility] [address] [place] [address] Dr. Leesa Urbina Eosinophils/100 WBC (Bld) 5.4 % Normal 0.9-7.0 [facility] Comment on above: Performed By: #### C BC #### [facility] [address] [place] [address] Dr. Leesa Urbina Erythrocyte distribution width (RBC) [Ratio] 13.3 % Normal 11.0-15.0 [facility] Comment on above: Performed By: #### C BC #### [facility] [address] [place] [address] Dr. Leesa Urbina Hematocrit (Bld) [Volume fraction] 35.8 % Critically low 42.0-54.0 [facility] Comment on above: Performed By: #### C BC #### [facility] [address] [place] [address] Dr. Leesa Urbina Hemoglobin (Bld) [Mass/Vol] 12.0 g/dL Critically low 14.0-18.0 [facility] Comment on above: Performed By: #### C BC #### [facility] [address] [place] [address] Dr. Leesa Urbina IG # 0.01 10e3/ul Normal 0.00-0.03 [facility] Comment on above: Performed By: #### C BC #### [facility] [address] [place] [address] Dr. Leesa Urbina IG % 0.2 % Normal 0.0-0.5 [facility] Comment on above: Performed By: #### C BC #### [facility] [address] [place] [address] Dr. Leesa Urbina LYMPH # 1.7 103/ul Normal 1.2-3.8 [facility] Comment on above: Performed By: #### C BC #### [facility] [address] [place] [address] Dr. Leesa Urbina Lymphocytes/100 WBC (Bld) 26.1 % Normal 20.5-60.0 [facility] Comment on above: Performed By: #### C BC #### [facility] [address] [place] [address] Dr. Leesa Urbina MANUAL DIFF REQ NO Normal [facility] Comment on above: Performed By: #### C BC #### [facility] [address] [place] [address] Dr. Leesa Urbina MCH (RBC) [Entitic mass] 31.0 pg Normal 25.9-34.0 [facility] Comment on above: Performed By: #### C BC #### [facility] [address] [place] [address] Dr. Leesa Urbina MCHC (RBC) [Mass/Vol] 33.5 g/dL Normal 29.9-35.2 [facility] Comment on above: Performed By: #### C BC #### [facility] [address] [place] [address] [address] Leesa Urbina MCV (RBC) [Entitic vol] 92.5 fL Normal 80.0-94.0 [facility] Comment on above: Performed By: #### C BC #### [facility] [address] [place] [address] [address] Leesa Urbina MONO # 0.4 103/ul Normal 0.3-0.8 [facility] Comment on above: Performed By: #### C BC #### [facility] [address] [place] [address] Dr. Leesa Urbina Monocytes/100 WBC (Bld) 6.5 % Normal 1.7-12.0 [facility] Comment on above: Performed By: #### C BC #### [facility] [address] [place] [address] Dr. Leesa Urbina NEUT # 4.0 103/ul Normal 1.4-6.5 [facility] Comment on above: Performed By: #### C BC #### [facility] [address] [place] [address] Dr. Leesa Urbina Neutrophils/100 WBC (Bld) 60.4 % Normal 43.0-75.0 [facility] Comment on above: Performed By: #### C BC #### [facility] [address] [place] [address] Dr. Leesa Urbina Platelet mean volume (Bld) [Entitic vol] 10.6 fL Normal 9.5-13.5 [facility] Comment on above: Performed By: #### C BC #### [facility] [address] [place] [address] Dr. Leesa Urbina PLT 185 103/ul Normal 150-450 [facility] Comment on above: Performed By: #### C BC #### [facility] [address] [place] [address] Dr. Leesa Urbina RBC 3.87 106/ul Critically low 4.70-6.10 [facility] Comment on above: Performed By: #### C BC #### [facility] [address] [place] [address] [address] Leesa Urbina WBC 6.6 103/ul Normal 4.0-11.0 [facility] Comment on above: Performed By: #### C BC #### [facility] [address] [address] [address] Leesa Urbina GLYCOHEMOGLOBIN A1Con 2021 ADA RECOMMENDATION SEE BELOW Normal [facility] Comment on above: Result Comment: ADA RECOMMENDED LIMIT 4.0 - 6.0 ADA THERAPEUTIC TARGET < 7.0 ACTION SUGGESTED > 7.0 Performed By: #### A 1C #### [facility] [address] [place] [address] Dr. Leesa Urbina Glucose [Mass/Vol] 151 mg/dL Normal [facility] Comment on above: Performed By: #### A 1C #### [facility] [address] [place] [address] Dr. Leesa Urbina HbA1c (Bld) [Mass fraction] 6.9 % Critically high 4.5-6.2 [facility] Comment on above: Performed By: #### A 1C #### [facility] [address] [place] [address] Dr. Leesa Urbina LIPID PROFILEon 05-06-2022 CHOL-HDL RATIO NORM SEE BELOW Normal [facility] Comment on above: Result Comment: 3.3 - 4.4 LOW RISK 4.4 - 7.1 AVERAGE RISK 7.1 - 11.0 MODERATE RISK >11.0 HIGH RISK Performed By: #### L IPID, TSH, CMP #### [facility] [address] [place] [address] Dr. Leesa Urbina Cholesterol [Mass/Vol] 136 mg/dL Normal <=200 [facility] Comment on above: Performed By: #### L IPID, TSH, CMP #### [facility] [address] [place] [address] Dr. Leesa Urbina Cholesterol in HDL [Mass/Vol] 62 mg/dL Critically high 40-60 [facility] Comment on above: Performed By: #### L IPID, TSH, CMP #### [facility] [address] [address] [address] Leesa Urbina Cholesterol in LDL [Mass/Vol] 53.0 mg/dL Normal [facility] Comment on above: Performed By: #### L IPID, TSH, CMP #### [facility] [address] [address] [address] Leesa Urbina Cholesterol.total/Chol esterol in HDL [Mass ratio] 2.2 {ratio} Normal [facility] Comment on above: Performed By: #### L IPID, TSH, CMP #### [facility] [address] [address] [address] Leesa Urbina HDL NORMAL > or = 60 mg/dl - LOW CARDIOVASCULAR RISK <40 mg/dl - HIGH CARDIOVASCULAR RISK Normal [facility] Comment on above: Performed By: #### L IPID, TSH, CMP #### [facility] [address] [place] [address] Dr. Leesa Urbina LDL CALC NORMAL SEE BELOW Normal [facility] Comment on above: Result Comment: <100 mg/dl OPTIMAL 100 - 129 mg/dl NEAR OR ABOVE OPTIMAL 130 - 159 mg/dl BORDERLINE HIGH 160 - 189 mg/dl HIGH >190 mg/dl VERY HIGH Performed By: #### L IPID, TSH, CMP #### [facility] [address] [address] [address] Leesa Urbina Triglyceride [Mass/Vol] 105 mg/dL Normal <=150 [facility] Comment on above: Performed By: #### L IPID, TSH, CMP #### [facility] [address] [place] [address] Dr. Leesa Urbina VLDL CALC 21.0 mg/dL Normal [facility] Comment on above: Performed By: #### L IPID, TSH, CMP #### [facility] [address] [address] [address] Leesa Urbina PROF 14(COMP METB)on 022 Albumin [Mass/Vol] 3.4 g/dL Normal 3.4-5.0 [facility] Comment on above: Performed By: #### L IPID, TSH, CMP #### [facility] [address] [address] [address] Leesa Urbina Albumin/Globulin [Mass ratio] 1.1 {ratio} Normal [facility] Comment on above: Performed By: #### L IPID, TSH, CMP #### [facility] [address] [address] [address] Leesa Urbina ALP [Catalytic activity/Vol] 77 U/L Normal 46-116 [facility] Comment on above: Performed By: #### L IPID, TSH, CMP #### [facility] [address] [address] [address] Leesa Urbina ALT [Catalytic activity/Vol] 12 U/L Critically low 16-63 [facility] Comment on above: Performed By: #### L IPID, TSH, CMP #### [facility] [address] [address] [address] Leesa Urbina Anion gap [Moles/Vol] 12.7 mmol/L Normal [facility] Comment on above: Performed By: #### L IPID, TSH, CMP #### [facility] [address] [address] [address] Leesa Urbina AST [Catalytic activity/Vol] 19 U/L Normal 15-37 [facility] Comment on above: Performed By: #### L IPID, TSH, CMP #### [facility] [address] [address] [address] Leesa Urbina Bilirubin [Mass/Vol] 0.4 mg/dL Normal 0.2-1.0 [facility] Comment on above: Performed By: #### L IPID, TSH, CMP #### [facility] [address] [address] [address] Leesa Urbina Calcium [Mass/Vol] 8.5 mg/dL Normal 8.5-10.1 [facility] Comment on above: Performed By: #### L IPID, TSH, CMP #### [facility] [address] [address] [address] Leesa Urbina Chloride [Moles/Vol] 107 mmol/L Normal 98-107 [facility] Comment on above: Performed By: #### L IPID, TSH, CMP #### [facility] [address] [address] [address] Leesa Urbina CO2 [Moles/Vol] 27.4 mmol/L Normal 21.0-32.0 [facility] Comment on above: Performed By: #### L IPID, TSH, CMP #### [facility] [address] [place] [address] Dr. Leesa Urbina Creatinine [Mass/Vol] 1.06 mg/dL Normal 0.70-1.30 [facility] Comment on above: Performed By: #### L IPID, TSH, CMP #### [facility] [address] [place] [address] Dr. Leesa Urbina EGFR-AF HUNGARIAN >60 Normal >=60 [facility] Comment on above: Performed By: #### L IPID, TSH, CMP #### [facility] [address] [place] [address] Dr. Leesa Urbina EGFR-NON AF HUNGARIAN >60 Normal >=60 [facility] Comment on above: Performed By: #### L IPID, TSH, CMP #### [facility] [address] [place] [address] Dr. Leesa Urbina Globulin (S) [Mass/Vol] 3.1 g/dL Normal [facility] Comment on above: Performed By: #### L IPID, TSH, CMP #### [facility] [address] [place] [address] Dr. Leesa Urbina Glucose [Mass/Vol] 171 mg/dL Critically high 74-106 [facility] Comment on above: Performed By: #### L IPID, TSH, CMP #### [facility] [address] [place] [address] Dr. Leesa Urbina Potassium [Moles/Vol] 4.1 mmol/L Normal 3.5-5.1 [facility] Comment on above: Performed By: #### L IPID, TSH, CMP #### [facility] [address] [place] [address] Dr. eLesa Urbina Protein [Mass/Vol] 6.5 g/dL Normal 6.4-8.2 [facility] Comment on above: Performed By: #### L IPID, TSH, CMP #### [facility] [address] [address] [address] Leesa Urbina Sodium [Moles/Vol] 143 mmol/L Normal 136-145 [facility] Comment on above: Performed By: #### L IPID, TSH, CMP #### [facility] [address] [address] [address] Leesa Urbina Urea nitrogen [Mass/Vol] 24.0 mg/dL Critically high 7.0-18.0 [facility] Comment on above: Performed By: #### L IPID, TSH, CMP #### [facility] [address] [address] [address] Leesa Urbina Urea nitrogen/Creatinine [Mass ratio] 22.6 mg/mg Normal [facility] Comment on above: Performed By: #### L IPID, TSH, CMP #### [facility] [address] [address] [address] Leesa Urbina Basophils Auto (Bld) [#/Vol] Ordered By: Juan Ventura on 12-05-2021 Basophils (Bld) [#/Vol] 0.1 10*3/uL 0.0-0.2 [facility] Basophils/100 WBC Auto (Bld) Ordered By: Juan Ventura on 12-05-2021 Basophils/100 WBC (Bld) 0.9 % [facility] Blood hemoglobin measurement (mass/volume)Ordered By: Juan Ventura on 12-05-2021 Hemoglobin (Bld) [Mass/Vol] 12.4 g/dL 13.0-17.0 [facility] Blood leukocytes automated c ount (number/volume)Ordered By: Juan Ventura on 12-05-2021 WBC (Bld) [#/Vol] 7.0 10*3/uL 4.5-11.0 [facility] COVID-19 Positive/NegativeOr dered By: Juan Ventura on 07-15-2022 SARS-CoV-2 (COVID-19) N gene RENETTA+probe Ql (Resp) Negative Negative [facility] Comment on above: Testing for SARS-CoV -2 by RT-PCR This test was developed and its performance characteristics determined by [employer] ([place] and validated at the [facility]. This test has not been FDA [...] on 12-05-2021 Creatinine [Mass/Vol] 1.28 mg/dL 0.64-1.27 [facility] Eosinophils Auto (Bld) [#/Vo l]Ordered By: Juan Ventura on 12-05-2021 Eosinophils (Bld) [#/Vol] 0.1 10*3/uL 0.0-0.45 [facility] Eosinophils/100 WBC Auto (Bl d)Ordered By: Juan Ventura on 12-05-2021 Eosinophils/100 WBC (Bld) 2.1 % [facility] Erythrocyte distribution wid th Auto (RBC) [Ratio]Ordered By: Juan Ventura on 12-05-2021 Erythrocyte distribution width (RBC) [Ratio] 14.6 % 12.0-14.8 [facility] Estimated glomerular filtrat ion rate (GFR) non- AmericanOrdered By: Juan Ventura on 12-05-2021 GFR/1.73 sq M.predicted among non-blacks MDRD (S/P/Bld) [Vol rate/Area] 54 mL/Min [facility] Hematocrit Auto (Bld) [Volum e fraction]Ordered By: Juan Ventura on 12-05-2021 Hematocrit (Bld) [Volume fraction] 37.3 % 38.8-50.0 [facility] - Hematology and Cell countsOrdered By: Juan Ventura on 12-05-2021 Nucleated RBC/100 WBC (Bld) [Ratio] 0.0 % 0-0.5 [facility] Lymphocytes Auto (Bld) [#/Vo l]Ordered By: Juan Ventura on 12-05-2021 Lymphocytes (Bld) [#/Vol] 1.4 10*3/uL 1.00-4.8 [facility] Lymphocytes/100 WBC Auto (Bl d)Ordered By: Juan Ventura on 12-05-2021 Lymphocytes/100 WBC (Bld) 19.8 % [facility] MCH Auto (RBC) [Entitic mass ]Ordered By: Juan Ventura on 12-05-2021 MCH (RBC) [Entitic mass] 30.8 pg 27.5-35.2 [facility] MCHC Auto (RBC) [Mass/Vol]Or dered By: Juan Ventura on 12-05-2021 MCHC (RBC) [Mass/Vol] 33.1 g/dL 32.5-35.6 [facility] MCV Auto (RBC) [Entitic vol] Ordered By: Juan Ventura on 12-05-2021 MCV (RBC) [Entitic vol] 93.1 fL 83.5-101 [facility] Monocytes Auto (Bld) [#/Vol] Ordered By: Juan Ventura on 12-05-2021 Monocytes (Bld) [#/Vol] 0.5 10*3/uL 0.0-0.8 [facility] Monocytes/100 WBC Auto (Bld) Ordered By: Juan Ventura on 12-05-2021 Monocytes/100 WBC (Bld) 7.3 % [facility] Neutrophils Auto (Bld) [#/Vo l]Ordered By: Juan Ventura on 12-05-2021 Neutrophils (Bld) [#/Vol] 4.9 10*3/uL 1.8-7.7 [facility] Neutrophils/100 WBC Auto (Bl d)Ordered By: Juan Ventura on 12-05-2021 Neutrophils/100 WBC (Bld) 69.9 % [facility] No Panel InformationOrdered By: Juan Ventura on 12-05-2021 Estimated GFR () > 60 mL/Min [facility] Comment on above: GFR estimated refere nce range: According to KDOQI guidelines, <60 ml/min/1.73m2 is sufficient to diagnose a patient with chronic kidney disease. Pharmacy Creatinine Clearance (Chem N/A [facility] Platelet mean volume Auto (B ld) [Entitic vol]Ordered By: Juan Ventura on 12-05-2021 Platelet mean volume (Bld) [Entitic vol] 8.9 fL 6.6-10.1 [facility] Platelets Auto (Bld) [#/Vol] Ordered By: Juan Ventura on 12-05-2021 Platelets (Bld) [#/Vol] 194 10*3/uL 150-450 [facility] RBC Auto (Bld) [#/Vol]Ordere d By: Juan Ventura on 12-05-2021 RBC (Bld) [#/Vol] 4.00 10*6/uL 3.90-5.60 [facility] Serum or plasma calcium fco urement (mass/volume)Ordered By: Juan Ventura on 12-05-2021 Calcium [Mass/Vol] 9.2 mg/dL 8.2-10.2 [facility] Serum or plasma chloride daniel surement (moles/volume)Ordered By: Juan Ventura on 12-05-2021 Chloride [Moles/Vol] 107 mmol/L 95-114 [facility] Serum or plasma glucose fco urement (mass/volume)Ordered By: Juan Ventura on 12-05-2021 Glucose [Mass/Vol] 117 mg/dL 70-100 [facility] Comment on above: ADA recommended refe rence range Random Glucose Reference Range is dependent on time and content of last meal. Glucose of more than 200 mg/dL in a nonstressed, ambulatory subject supports the diagnosis of Diabetes Mellitus. Serum or plasma potassium me asurement (moles/volume)Ordered By: Juan Ventura on 12-05-2021 Potassium [Moles/Vol] 4.6 mmol/L 3.5-5.1 [facility] Serum or plasma sodium measu rement (moles/volume)Ordered By: Juan Ventura on 12-05-2021 Sodium [Moles/Vol] 141 mmol/L 136-146 [facility] Serum or plasma total carbon dioxide measurement (moles/volume)Ordered By: Juan Ventura on 12-05-2021 CO2 [Moles/Vol] 26.2 mmol/L 22.0-30.0 [facility] Serum or plasma urea nitroge n measurement (mass/volume)Ordered By: Juan Ventura on 12-05-2021 Urea nitrogen [Mass/Vol] 23 mg/dL 9-23 [facility] CBC AUTO DIFFon 11-05-2021 BASO # 0.1 103/ul Normal 0.0-0.1 [facility] Comment on above: Performed By: #### C BC #### [facility] [address] [address] [address] Leesa Urbina Basophils/100 WBC (Bld) 0.8 % Normal 0.2-2.0 [facility] Comment on above: Performed By: #### C BC #### [facility] [address] [address] [address] Leesa Urbina EO # 0.4 103/ul Normal 0.0-0.7 [facility] Comment on above: Performed By: #### C BC #### [facility] [address] [address] [address] Leesa Urbina Eosinophils/100 WBC (Bld) 5.6 % Normal 0.9-7.0 [facility] Comment on above: Performed By: #### C BC #### [facility] [address] [address] [address] Leesa Urbina Erythrocyte distribution width (RBC) [Ratio] 13.4 % Normal 11.0-15.0 [facility] Comment on above: Performed By: #### C BC #### [facility] [address] [address] [address] Leesa Urbina Hematocrit (Bld) [Volume fraction] 36.1 % Critically low 42.0-54.0 [facility] Comment on above: Performed By: #### C BC #### [facility] [address] [place] [address] Dr. Leesa Urbina Hemoglobin (Bld) [Mass/Vol] 11.8 g/dL Critically low 14.0-18.0 [facility] Comment on above: Performed By: #### C BC #### [facility] [address] [place] [address] Dr. Leesa Urbina IG # 0.02 10e3/ul Normal 0.00-0.03 [facility] Comment on above: Performed By: #### C BC #### [facility] [address] [place] [address] Dr. Leesa Urbina IG % 0.3 % Normal 0.0-0.5 [facility] Comment on above: Performed By: #### C BC #### [facility] [address] [place] [address] Dr. Leesa Urbina LYMPH # 1.8 103/ul Normal 1.2-3.8 [facility] Comment on above: Performed By: #### C BC #### [facility] [address] [place] [address] Dr. Leesa Urbina Lymphocytes/100 WBC (Bld) 28.4 % Normal 20.5-60.0 [facility] Comment on above: Performed By: #### C BC #### [facility] [address] [place] [address] Dr. Leesa Urbina MANUAL DIFF REQ NO Normal [facility] Comment on above: Performed By: #### C BC #### [facility] [address] [place] [address] Dr. Leesa Urbina MCH (RBC) [Entitic mass] 30.7 pg Normal 25.9-34.0 [facility] Comment on above: Performed By: #### C BC #### [facility] [address] [address] [address] Leesa Urbina MCHC (RBC) [Mass/Vol] 32.7 g/dL Normal 29.9-35.2 [facility] Comment on above: Performed By: #### C BC #### [facility] [address] [address] [address] Leesa Urbina MCV (RBC) [Entitic vol] 94.0 fL Normal 80.0-94.0 [facility] Comment on above: Performed By: #### C BC #### [facility] [address] [place] [address] Dr. Leesa Urbina MONO # 0.5 103/ul Normal 0.3-0.8 [facility] Comment on above: Performed By: #### C BC #### [facility] [address] [place] [address] Dr. Leesa Urbina Monocytes/100 WBC (Bld) 8.1 % Normal 1.7-12.0 [facility] Comment on above: Performed By: #### C BC #### [facility] [address] [place] [address] Dr. Leesa Urbina NEUT # 3.5 103/ul Normal 1.4-6.5 [facility] Comment on above: Performed By: #### C BC #### [facility] [address] [place] [address] Dr. Leesa Urbina Neutrophils/100 WBC (Bld) 56.8 % Normal 43.0-75.0 [facility] Comment on above: Performed By: #### C BC #### [facility] [address] [place] [address] Dr. Leesa Urbina Platelet mean volume (Bld) [Entitic vol] 10.3 fL Normal 9.5-13.5 [facility] Comment on above: Performed By: #### C BC #### [facility] [address] [place] [address] Dr. Leesa Urbina PLT 179 103/ul Normal 150-450 [facility] Comment on above: Performed By: #### C BC #### [facility] [address] [address] [address] Leesa Urbina RBC 3.84 106/ul Critically low 4.70-6.10 [facility] Comment on above: Performed By: #### C BC #### [facility] [address] [address] [address] Leesa Urbina WBC 6.2 103/ul Normal 4.0-11.0 [facility] Comment on above: Performed By: #### C BC #### [facility] [address] [address] [address] Leesa Urbina GLYCOHEMOGLOBIN A1Con 2021 ADA RECOMMENDATION SEE BELOW Normal [facility] Comment on above: Result Comment: ADA RECOMMENDED LIMIT 4.0 - 6.0 ADA THERAPEUTIC TARGET < 7.0 ACTION SUGGESTED > 7.0 Performed By: #### L IPID, TSH, CMP #### [facility] [address] [address] [address] Leesa Urbina Glucose [Mass/Vol] 151 mg/dL Normal [facility] Comment on above: Performed By: #### L IPID, TSH, CMP #### [facility] [address] [address] [address] Leesa Urbina HbA1c (Bld) [Mass fraction] 6.9 % Critically high 4.5-6.2 [facility] Comment on above: Performed By: #### L IPID, TSH, CMP #### [facility] [address] [address] [address] Leesa Urbina LIPID PROFILEon 11-05-2021 CHOL-HDL RATIO NORM SEE BELOW Normal [facility] Comment on above: Result Comment: 3.3 - 4.4 LOW RISK 4.4 - 7.1 AVERAGE RISK 7.1 - 11.0 MODERATE RISK >11.0 HIGH RISK Performed By: #### L IPID, TSH, CMP #### [facility] [address] [address] [address] Leesa Urbina Cholesterol [Mass/Vol] 150 mg/dL Normal <=200 [facility] Comment on above: Performed By: #### L IPID, TSH, CMP #### [facility] [address] [address] [address] Leesa Urbina Cholesterol in HDL [Mass/Vol] 60 mg/dL Normal 40-60 [facility] Comment on above: Performed By: #### L IPID, TSH, CMP #### [facility] [address] [address] [address] Leesa Urbina Cholesterol in LDL [Mass/Vol] 70.8 mg/dL Normal [facility] Comment on above: Performed By: #### L IPID, TSH, CMP #### [facility] [address] [address] [address] Leesa Urbina Cholesterol.total/Chol esterol in HDL [Mass ratio] 2.5 {ratio} Normal [facility] Comment on above: Performed By: #### L IPID, TSH, CMP #### [facility] [address] [address] [address] Leesa Urbina HDL NORMAL > or = 60 mg/dl - LOW CARDIOVASCULAR RISK <40 mg/dl - HIGH CARDIOVASCULAR RISK Normal [facility] Comment on above: Performed By: #### L IPID, TSH, CMP #### [facility] [address] [address] [address] Leesa Urbina LDL CALC NORMAL SEE BELOW Normal [facility] Comment on above: Result Comment: <100 mg/dl OPTIMAL 100 - 129 mg/dl NEAR OR ABOVE OPTIMAL 130 - 159 mg/dl BORDERLINE HIGH 160 - 189 mg/dl HIGH >190 mg/dl VERY HIGH Performed By: #### L IPID, TSH, CMP #### [facility] [address] [address] [address] Leesa Urbina Triglyceride [Mass/Vol] 96 mg/dL Normal <=150 [facility] Comment on above: Performed By: #### L IPID, TSH, CMP #### [facility] [address] [address] [address] Leesa Urbina VLDL CALC 19.2 mg/dL Normal [facility] Comment on above: Performed By: #### L IPID, TSH, CMP #### [facility] [address] [address] [address] Leesa Urbina MICROALB CREAT RATIO RANDOMo n 11-05-2021 mALB <1.3 Normal <=30.0 [facility] Comment on above: Performed By: #### L IPID, TSH, CMP #### [facility] [address] [address] [address] Leesa Urbina MALB CR RATIO 11.4 mg/g Normal 0.0-29.9 [facility] Comment on above: Performed By: #### L IPID, TSH, CMP #### [facility] [address] [address] [address] Leesa Urbina MALB CR RATIO RANGE SEE BELOW Normal [facility] Comment on above: Result Comment: NO M ICROALBUMINURIA 0-29 MG/G CLINICAL MICROALBUMINURIA 30-300 MG/G MACROALBUMINURIA >300 MG/G Performed By: #### L IPID, TSH, CMP #### [facility] [address] [address] [address] Leesa Urbina URINE CREAT 114.03 mg/dL Normal 20.00-300.00 [facility] Comment on above: Performed By: #### L IPID, TSH, CMP #### [facility] [address] [address] [address] Leesa Urbina PROF 14(COMP METB)on 022 Albumin [Mass/Vol] 2.3 g/dL Critically low 3.4-5.0 [facility] Comment on above: Performed By: #### L IPID, TSH, CMP #### [facility] [address] [address] [address] Leesa Urbina Albumin/Globulin [Mass ratio] 0.5 {ratio} Normal [facility] Comment on above: Performed By: #### L IPID, TSH, CMP #### [facility] [address] [address] [address] Leesa Urbina ALP [Catalytic activity/Vol] 77 U/L Normal 46-116 [facility] Comment on above: Performed By: #### L IPID, TSH, CMP #### [facility] [address] [address] [address] Leesa Urbina ALT [Catalytic activity/Vol] 16 U/L Normal 16-63 [facility] Comment on above: Performed By: #### L IPID, TSH, CMP #### [facility] [address] [address] [address] Leesa Urbina Anion gap [Moles/Vol] 13.8 mmol/L Normal [facility] Comment on above: Performed By: #### L IPID, TSH, CMP #### [facility] [address] [place] [address] Dr. Leesa Urbina AST [Catalytic activity/Vol] 15 U/L Normal 15-37 [facility] Comment on above: Performed By: #### L IPID, TSH, CMP #### [facility] [address] [place] [address] Dr. Leesa Urbina Bilirubin [Mass/Vol] 0.5 mg/dL Normal 0.2-1.0 [facility] Comment on above: Performed By: #### L IPID, TSH, CMP #### [facility] [address] [place] [address] Dr. Leesa Urbina Calcium [Mass/Vol] 8.7 mg/dL Normal 8.5-10.1 [facility] Comment on above: Performed By: #### L IPID, TSH, CMP #### [facility] [address] [place] [address] Dr. Leesa Urbina Chloride [Moles/Vol] 107 mmol/L Normal 98-107 [facility] Comment on above: Performed By: #### L IPID, TSH, CMP #### [facility] [address] [place] [address] Dr. Leesa Urbina CO2 [Moles/Vol] 26.2 mmol/L Normal 21.0-32.0 [facility] Comment on above: Performed By: #### L IPID, TSH, CMP #### [facility] [address] [place] [address] Dr. Leesa Urbina Creatinine [Mass/Vol] 1.25 mg/dL Normal 0.70-1.30 [facility] Comment on above: Performed By: #### L IPID, TSH, CMP #### [facility] [address] [address] [address] Leesa Urbina EGFR-AF HUNGARIAN >60 Normal >=60 [facility] Comment on above: Performed By: #### L IPID, TSH, CMP #### [facility] [address] [address] [address] Leesa Urbina EGFR-NON AF HUNGARIAN 55 mL/min/1.73m2 Critically low >=60 [facility] Comment on above: Performed By: #### L IPID, TSH, CMP #### [facility] [address] [address] [address] Leesa Urbina Globulin (S) [Mass/Vol] 4.3 g/dL Normal [facility] Comment on above: Performed By: #### L IPID, TSH, CMP #### [facility] [address] [place] [address] Dr. Leesa Urbina Glucose [Mass/Vol] 137 mg/dL Critically high 74-106 [facility] Comment on above: Performed By: #### L IPID, TSH, CMP #### [facility] [address] [address] [address] Leesa Urbina Potassium [Moles/Vol] 4.0 mmol/L Normal 3.5-5.1 [facility] Comment on above: Performed By: #### L IPID, TSH, CMP #### [facility] [address] [address] [address] Leesa Urbina Protein [Mass/Vol] 6.6 g/dL Normal 6.4-8.2 [facility] Comment on above: Performed By: #### L IPID, TSH, CMP #### [facility] [address] [place] [address] Dr. Leesa Urbina Sodium [Moles/Vol] 143 mmol/L Normal 136-145 [facility] Comment on above: Performed By: #### L IPID, TSH, CMP #### [facility] [address] [address] [address] Leesa Urbina Urea nitrogen [Mass/Vol] 24.0 mg/dL Critically high 7.0-18.0 [facility] Comment on above: Performed By: #### L IPID, TSH, CMP #### [facility] [address] [address] [address] Leesa Urbina Urea nitrogen/Creatinine [Mass ratio] 19.2 mg/mg Normal [facility] Comment on above: Performed By: #### L IPID, TSH, CMP #### [facility] [address] [address] [address] Leesa Urbina TSHon 11-05-2021 TSH 0.996 uIU/mL Normal 0.358-3.740 [facility] Comment on above: Performed By: #### L IPID, TSH, CMP #### [facility] [address] [address] [address] Leesa Urbina Tobacco Screening.on 022 Adult depression screening assessment No [facility] 250 DO Work Phone: Fall risk assessment a) No falls within the last year [facility] 250 DO Work Phone: Tobacco use status [facility] b) No [facility] 250 DO Work Phone: Vital Signs Date Time Vital Sign Value Performing Clinician Facility 07-13-2023 08:34-0500 Body height 180.3 cm Dev Camp MD Work Phone: [facility] 07-13-2023 08:34-0500 Body mass index (BMI) [Ratio] 23.99 kg/m2 Dev Camp MD Work Phone: [facility] 07-13-2023 08:34-0500 Body weight 78.02 kg Dev Camp MD Work Phone: [facility] 07-13-2023 08:34-0500 Diastolic blood pressure 64 mm[Hg] Dev Camp MD Work Phone: [facility] 07-13-2023 08:34-0500 Heart rate 60 /min Dev Camp MD Work Phone: [facility] 07-13-2023 08:34-0500 Systolic blood pressure 108 mm[Hg] Dev Camp MD Work Phone: [facility] 11-17-2022 14:15-0400 Body height 180.34 cm Imad Asaad Other [employer] Other 11-17-2022 14:15-0400 Body mass index (BMI) [Ratio] 23.71 kg/m2 Imad Asaad Other [employer] Other 11-17-2022 14:15-0400 Body weight 77.11 kg Imad Asaad Other [employer] Other 11-17-2022 14:15-0400 Diastolic blood pressure 78 mm[Hg] Imad Asaad Other [employer] Other 11-17-2022 14:15-0400 Systolic blood pressure 127 mm[Hg] Imad Asaad Other [place] [employer] Other 07-14-2022 09:08-0500 Body height 180.34 cm Gabriel Bello Work Phone: [facility] [employer] 250 DO Work Phone: 07-14-2022 09:08-0500 Body mass index (BMI) [Ratio] 24.13 kg/m2 Gabriel Bello Work Phone: [facility] [employer] 250 DO Work Phone: 07-14-2022 09:08-0500 Body surface area Derived from formula 1.98 m2 Gabriel Bello Work Phone: [facility] [employer] 250 DO Work Phone: 07-14-2022 09:08-0500 Body weight 78.47 kg Gabriel Bello Work Phone: [facility] 250 DO Work Phone: 07-14-2022 09:08-0500 Diastolic blood pressure 78 mm[Hg] Gabriel Bello Work Phone: [facility] 250 DO Work Phone: 07-14-2022 09:08-0500 Heart rate 68 /min Gabriel Bello Work Phone: [facility] 250 DO Work Phone: 07-14-2022 09:08-0500 Systolic blood pressure 124 mm[Hg] Gabriel Bello Work Phone: [facility] 250 DO Work Phone: 07-03-2021 15:20-0500 Diastolic blood pressure 78 mm[Hg] Gabriel Bello Work Phone: [facility] 250 DO Work Phone: 07-03-2021 15:20-0500 Heart rate 65 /min Gabriel Bello Work Phone: [facility] 250 DO Work Phone: 07-03-2021 15:20-0500 Systolic blood pressure 136 mm[Hg] Gabriel Bello Work Phone: [facility] 250 DO Work Phone: 07-03-2021 15:17-0500 Body height 180.34 cm Gabriel Bello Work Phone: [facility] 250 DO Work Phone: 07-03-2021 15:17-0500 Body mass index (BMI) [Ratio] 24.97 kg/m2 Gabriel Bello Work Phone: [facility] 250 DO Work Phone: 07-03-2021 15:17-0500 Body surface area Derived from formula 2.01 m2 Gabriel Bello Work Phone: [facility] 250 DO Work Phone: 07-03-2021 15:17-0500 Body weight 81.19 kg Gabriel Bello Work Phone: [facility] 250 DO Work Phone: 07-03-2021 15:17-0500 Diastolic blood pressure 80 mm[Hg] Gabriel Bello Work Phone: [facility] 250 DO Work Phone: 07-03-2021 15:17-0500 Systolic blood pressure 151 mm[Hg] Gabriel Bello Work Phone: [facility] 250 DO Work Phone: Encounters Encounter Date [...] Start: 09-13-2023 End: 09-13-2023 ambulatory Miller Donald Facility:[facility] Start: 09-13-2023 End: 09-13-2023 ambulatory DO Gabriel Bello Work Phone: [facility] Work Phone: Start: 09-13-2023 End: 09-13-2023 Patient encounter procedure DO Gabriel Bello Work Phone: [facility] Work Phone: Start: 07-13-2023 End: 07-13-2023 Office outpatient visit 25 minutes Dev Camp MD Work Phone: [facility] Comment on above: Benign essential hyp ertension (Primary Dx); Mixed hyperlipidemia; Paroxysmal atrial fibrillation (CMS/HCC); Former smoker Start: 07-13-2023 End: 07-13-2023 ambulatory DEV CAMP [facility] Ambulatory Start: 05-26-2023 End: 05-26-2023 ambulatory CHRIS PATEL Not Available Start: 05-12-2023 End: 05-12-2023 ambulatory GABRIEL BELLO Not Available Start: 04-26-2023 End: 04-26-2023 ambulatory LAURA BARROW Not Available Start: 12-24-2022 End: 12-24-2022 ambulatory Imad Asaad Facility:[facility] Start: 11-26-2022 End: 11-26-2022 ambulatory Imad Asaad Facility:[facility] Start: 11-26-2022 End: 11-26-2022 ambulatory DO Gabriel Bello Work Phone: [facility] Work Phone: Start: 11-26-2022 End: 11-26-2022 Patient encounter procedure DO Gabriel Bello Work Phone: [facility] [place] Work Phone: Start: 11-17-2022 End: 11-17-2022 ambulatory Imad Asaad Other [facility] Other Start: 11-17-2022 Office outpatient ne w 45 minutes Imad Asaad [facility] Start: 11-17-2022 Telephone encounter Imad Asaad [facility] Start: 09-03-2022 End: 09-04-[address] GABRIEL BELLO Facility: Start: 07-14-2022 Office outpatient visit 25 minutes Gabriel Bello Work Phone: [place] [address] DO Work Phone: Start: 07-14-[address] Gabriel Kulkarni Facility:[id number] Start: 05-25-2022 End: 05-26-[address] GABRIEL BELLO Facility:[facility] Start: 05-06-2022 End: 05-07-[address] GABRIEL BELLO Facility:[facility] Start: 03-27-2022 Rx Renewal Gabriel mae Work Phone: [facility] 250 DO Work Phone: Start: 12-05-2021 End: 12-05-2021 Patient encounter procedure DO Gabriel Bello Work Phone: [facility] Start: 11-20-2021 End: 11-21-[address] DOCTOR BISHOP Facility:[facility] Start: 11-05-2021 End: 11-06-[address] GABRIEL BELLO Facility:[facility] Start: 07-03-2021 Office outpatient visit 25 minutes Gabriel Bello Work Phone: [facility] 250 DO Work Phone: Start: 03-05-2021 Rx Renewal Marina lozada MD Work Phone: [facility] 250 DO Work Phone: Start: 07-12-2020 End: 07-12-2020 Discharged Recurring Gabriel Bello [facility] Vaccine Procedures Date Procedure Procedure [...] CMP #### [facility] [address] [place] [address] Dr. Leesa Urbina Start: 11-20-[address] DOCTOR BISHOP Comment on above: Performed By: #### P SAD #### [facility] [address] [address] [address] Leesa Urbina Appendectomy Gabriel daniel Work Phone: Cataract surgery Gabriel Alicia morris Work Phone: Colonoscopy Gabriel A Changma n Work Phone: Comment on above: [id number] Jovanny Yu; Operation on lip Gabriel Alicia morris Work Phone: Prostatectomy Gabriel mae Work Phone: Plan of Treatment Date Care Activity Detail Author Start: 07-18-2024 End: 07-18-2024 Patient encounter procedure 07/18/2024 8:50 AM EST Office Visit [facility] [address] [id number] Dev Camp MD 703 [facility] [address] [address] [facility] Start: 07-13-2023 FUV, Provider: Dev Camp, Status: Pen, Time: 8:50 AM FUV, Provider: Dev Camp, Status: Pen, [facility]: 8:50 [facility] Start: 07-14-2022 FUV, Provider: Dev Camp, Status: Pen, Time: 9:10 AM FUV, Provider: Dev Camp, Status: Pen, Time: 9:10 AM [facility]: Start: 06-24-2021 FUV, Provider: Dev Camp, Status: Pen, Time: 10:15 AM FUV, Provider: Dev Camp, Status: Alon, Time: 10:15 AM [facility] 250 DO Work Phone: Start: 1960 DTaP/Tdap/Td Vaccine s (1 - Tdap) DTaP/Tdap/Td Vaccines (1 - Tdap) [facility] Start: 1957 Urine screening for protein Diabetes: Urine Protein Screening [facility] Start: 1948 Diabetic foot examination Diabetes: Foot Exam [facility] Start: 1948 Glaucoma screening Diabetes: R etinopathy Screening [facility] Start: 1940 Hemoglobin A1c measurement Diabetes: Hemoglobin A1C [facility] Start: 1940 Lipid panel Lipid Panel [facility] Start: 1940 Medicare Annual Wellness Visit Medicare Annual Wellness Visit (AWV) [facility] HIV 1+2 Ab+HIV1 p24 Ag [Presence] in Serum or Plasma by Immunoassay [facility] Immunizations Immunization Date Immunization Notes Care Provider Fa cili 04-03-2022 Moderna COVID-19 Biv al Booster 50 MCG/0.5ML Intramuscular Suspension Gabriel Bello Work Phone: [facility] 250 DO Work Phone: 03-10-2022 Fluad Quadrivalent 0 .5 ML Intramuscular Prefilled Syringe Gabriel Bello Work Phone: [facility] 250 DO Work Phone: 12-19-2021 Moderna COVID-19 Vac cine 100 MCG/0.5ML Intramuscular Suspension Gabriel Bello Work Phone: [facility] 250 DO Work Phone: 03-20-2021 Moderna COVID-19 Vac cine 100 MCG/0.5ML Intramuscular Suspension Gabriel Bello Work Phone: [facility] 03-12-2021 influenza, high dose seasonal, preservative-free Gabriel Bello Work Phone: [facility] DO Work Phone: 02-26-2021 Fluzone High-Dose Quadrivalent 0.7 ML Intramuscular Suspension Prefilled Syringe Gabriel Bello Work Phone: [facility] DO Work Phone: 07-12-2020 COVID-19 mRNA-1273 (Moderna) [facility] 06-15-2020 COVID-19 mRNA-1273 (Moderna) [facility] 03-15-2020 Fluad Quadrivalent 0 .5 ML Intramuscular Prefilled Syringe Garbiel Bello [facility] DO Work Phone: 02-24-2020 influenza, high dose seasonal, preservative-free Gabriel Bello [facility] Phone: [facility] DO Work Phone: 03-11-2019 zoster vaccine recombinant [facility] DO Work Phone: 03-01-2019 influenza, high dose seasonal, preservative-free Gabriel A Ace Work Phone: [facility] DO Work Phone: 02-21-2019 influenza, high dose seasonal, preservative-free Gabriel A Ace Work Phone: [facility] DO Work Phone: 12-22-2018 zoster vaccine recombinant [facility] DO Work Phone: 02-25-2018 influenza, high dose seasonal, preservative-free Gabriel A Ace Work Phone: [place] [address] DO Work Phone: 03-16-2017 influenza, high dose seasonal, preservative-free Gabriel Bello Work Phone: [place] [address] DO Work Phone: 05-24-2016 pneumococcal conjuga te vaccine, 13 valent Gabriel Bello Work Phone: [facility] 03-22-2015 influenza, high dose seasonal, preservative-free Gabriel Bello Work Phone: [place] [address] DO Work Phone: 05-24-2012 pneumococcal polysaccharide vaccine, 23 valent Gabriel Bello Work Phone: [facility] 05-31-2009 novel influenza-H1N1 -09, preservative-free, injectable Gabriel Bello Work Phone: [place] [address] DO Work Phone: Payers Date Payer Category Payer Medicare [id number] 2022 Self-pay [id number] 1959 Private Health Insurance 101 [id number] 1940 Unknown [id number] 2.16. [id number] 1938 Unknown [id number] 2.16.84 0.1.729038.3.579.2.593 1938 Unknown [id number] 2.16.84 0.1.862703.3.579.2.593 1938 Unknown [id number] 2.16.84 0.1.923704.3.579.2.593 1938 Unknown [id number] 2.16.84 0.1.162296.3.579.2.593 1938 Unknown [id number] 2.16.84 0.1.690552.3.579.2.593 1938 Unknown [id number] 2.16.84 0.1.816934.3.579.2.1259 1938 Unknown [id number] 2.16.84 0.1.496956.3.579.2.1259 1938 Unknown [id number] 2.16.84 0.1.470869.3.579.2.1259 1938 Unknown [id number] 2.16.84 0.1.659236.3.579.2.1259 1938 Unknown [id number] 2.16.84 0.1.097027.3.579.2.1259 1938 Unknown [id number] 2.16.840 .1.917825.3.579.2.1259 1938 Unknown [id number] 2.16.840 .1.691761.3.579.2.1259 1938 Unknown [id number] 2.16.840 .1.994858.3.579.2.1259 1938 Unknown [id number] 2.16.8 40.1.021417.3.579.2.1244 Medicare Medicare [id number] Private Health Insurance Self Pay [facility] [id number] Unknown [employer] Unknown [id number] 2.16.8 40.1.885632.3.579.2.531 Unknown [id number] 2.16.8 40.1.333731.3.579.2.531 Unknown [id number] 2.16.8 40.1.917836.3.579.2.531 Social History Date Type Detail Facility Tobacco smoking status NMIS Unknown if ever smoked [facility] Start: 1940 Sex Assigned At Male F [facility] Start: 07-13-2023 Never a smoker Never a smoker -Nor [facility] 250 DO Work Phone: Comment on above: 2-3 drinks a month; Start: 12-05-2021 End: 12-24-2022 Tobacco smoking status NHIS Ex-smoker (finding) [facility] Start: 07-13-2023 Sex Assigned At N [facility] [employer] Other End: 05-24-1989 History of tobacco use Current smoker [facility] Work Phone: End: 05-24-1989 History of tobacco use Cigarette Smoker [facility] Work Phone: Start: 07-13-2023 Tobacco use and exposure Smokeless tobacco non-user [facility] Work Phone: Start: 07-13-2023 Alcohol intake Lifetime non-d joe (finding) [facility] Work Phone: Start: 1940 Sex Assigned At Not on file U [facility] Work Phone: Start: 07-03-2023 End: 07-13-2023 Exposure to SARS-CoV-2 (event) Not sure [facility] Goals Date Patient Goal Desired [...] by mouth once daily., Disp: , Rfl: [id number] (Creon) 24,000-76,000 -120,000 unit capsule, Take 1 [...] discussion and plan. documented in this encounter [facility] Work Phone: Instructions 07-13-2023 Patient [...] of your visit. documented in this encounter [facility] Work Phone: Evaluation note 11-17-2022 Note Date & Type Note Facility 11-17-2022 Evaluation note Encounter Date Diagnosis Assessment Notes Oct, Change in bowel habits (ICD-10 - R19.4) Oct, Diverticulosis (ICD-10 - K57.90) Oct, IBS (irritable bowel syndrome) (ICD-10 - K58.9) Oct, Pancreatic insufficiency (ICD-10 - K86.89) [facility] Other History of Present illness Narrative 07-14-2022 [...] necessary and we suggest follow-up next year -[facility] 250 DO Work Phone: Evaluation note Note Date & Type Note Facility Evaluation note No assessment information [facility] Work Phone: Evaluation note Note Date & Type Note Facility Evaluation note No Information [facility] [employer] Other Evaluation note Note Date & Type Note Facility Evaluation note Diagnosis Benign essential hypertension- Primary Essential hypertension, benign Mixed hyperlipidemia Paroxysmal atrial fibrillation (CMS/HCC) Atrial fibrillation Former smoker Personal history of tobacco use, presenting hazards to health documented in this encounter [facility] Work Phone: History general Narrative [...] History Right cataract surge ry per in [place], [place]. 10-28-17 Surgical History Mohs repair / left upper lip Hospitalization History see above [employer] Other History of Present illness Narrative Note [...] suggest continued therapy as before without change. -[facility] 250 DO Work Phone: Advance Directives [...] Procedures ECG 12 Lead Dev Camp MD [address] [place] [address], [place] [phone] Referral ID Status Reason Start Date Expiration Date V isits Requested Visits Authorized [id number] Authorized 07/13/2023 07/12/2024 1 1 Specialty Diagnoses / Procedures Referred By Contac t Referred To Contact Cardiology Diagnoses Paroxysmal atrial fibrillation (CMS/HCC) Procedures Follow Up In Cardiology Dev Camp MD [address] [place] [address], [place] [phone] Dev Camp MD [address] [place] [address], [place] [phone] Referral ID Status Reason Start Date Expiration Date V isits Requested Visits Authorized [id number] Authorized 07/13/2023 07/12/2024 1 1 Additional Source [...] Active Jj Garcia MD Attending Provider Active Ad Taker Relationship Specialty Start Date End Date Gabriel Bello DO [address] [place] [address] PCP - General 05/24/99 Team Status: Inactive [...] section and content) DATE CREATED AUTHOR 07/15/2022 [facility] DATE CREATED AUTHOR AUTHOR'S ORGANIZ ATION 07/15/2022 [employer] DATE CREATED AUTHOR AUTHOR'S ORGANIZ ATION 09/10/2022 [facility] DATE CREATED AUTHOR AUTHOR'S ORGANIZ ATION 09/18/2023 [facility] DATE CREATED AUTHOR AUTHOR'S ORGANIZ ATION 11/15/2023 [facility] EPIC DATE CREATED AUTHOR AUTHOR'S ORGANIZ ATION 12/29/2023 [facility] Ambulatory REASON FOR VISIT (unrecogniz ed section and content) Reason Comments Annual Exam Specialty Diagnoses / Procedures Referred By Contac t Referred To Contact Diagnoses Paroxysmal atrial fibrillation (CMS/HCC) Procedures ECG 12 Lead Dev Camp MD 703 [facility] [address] [place] [address] Referral ID Status Reason Start Date Expiration Date V isits Requested Visits Authorized [id number] Authorized 07/13/2023 07/12/2024 1 1 FOR RECORDS [...] BE BASED ON THE PRIMARY CLINICAL RECORDS. [facility], [facility]. provides no warranty or guarantee of the accuracy or completeness of information in this document.
[2024-01-10 22:46] VITALS: PULSE 63
--- NOTE | 2024-01-10 22:56 | ECG_ITS ---
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
--- NOTE | 2024-01-10 22:57 | ED_ITS ---
HPI HPI - General Adult General Chief complaint: Headache Stated complaint: Hypertension Time Seen by Provider: 01/10/24 22:38 Source: patient Mode of arrival: walk-in Limitations: no limitations History of Present Illness HPI narrative: 83-year-old male presents to the emergency department for elevated blood pressure. He has a headache in the posterior portion of his head, no trauma but he is on Xarelto. He has history of prostate cancer and is on a medicine for that issue that causes his blood pressure to go up. His blood pressure was running a bit high and the dose was cut in half but his blood pressure continued to go up so he came in here tonight. He did not miss any doses of his lisinopril. Related Data Home Medications ?Medication ?Instructions ?Recorded ?Confirmed rivaroxaban 20 mg tablet (Xarelto) 20 mg PO DAILY 09/29/23 01/10/24 abiraterone 250 mg tablet 500 mg PO DAILY 01/10/24 01/10/24 atorvastatin 20 mg tablet 20 mg PO .once nightly 01/10/24 01/10/24 lisinopril 20 mg tablet 20 mg PO .once nightly 01/10/24 01/10/24 metformin 500 mg tablet 500 mg PO .once nightly 01/10/24 01/10/24 metoprolol succinate 50 mg 50 mg PO DAILY 01/10/24 01/10/24 tablet,extended release 24 hr mirtazapine 15 mg tablet mg 01/10/24 prednisone 5 mg tablet 5 mg PO DAILY 01/10/24 01/10/24 Allergies Allergy/AdvReac Type Severity Reaction Status Date / Time Sulfa (Sulfonamide Allergy Severe Hives Verified 01/10/24 22:44 Antibiotics) Opioid HPI Opioid Management Most Recent Opioid Data: Last Pain Scale 0 01/10/24 23:55 Last ED Pain Assessment 01/10/24 23:55 Review of Systems ROS Narrative A ten point review of systems is negative except as noted above. Exam Narrative Exam Narrative: Nurses note and vital signs reviewed and patient is not hypoxic. General: The patient appears well and in no apparent distress. Patient is resting comfortably on cart. Skin: Warm, dry, no pallor noted. There is no rash noted. Head: Normocephalic, atraumatic Eye: Normal conjunctiva, no drainage, EOMI. PERRL Ears, Nose, Mouth, and Throat: oral mucosa is moist. Nares patent. Cardiovascular: Regular Rate and Rhythm Respiratory: Patient is in no distress, no accessory muscle use, lungs are clear to auscultation, no wheezing, rales or rhonchi Back: non-tender GI: Soft and nontender Musculoskeletal: The patient has no evidence of calf tenderness, no pitting edema, symmetrical pulses noted bilaterally Neurological: A&O, normal speech Psychiatric: Cooperative Constitutional Vital Signs, click to edit/add: Last Vital Signs Temp 97.6 F 01/10/24 22:39 Pulse 68 01/11/24 00:15 Resp 16 01/11/24 00:15 BP 166/76 H 01/11/24 00:15 Pulse Ox 97 01/11/24 00:15 O2 Del Method Room Air 01/11/24 00:15 Course Vital Signs Vital signs: Vital Signs Temperature 97.6 F 01/10/24 22:39 Pulse Rate 74 01/10/24 22:39 Respiratory Rate 16 01/10/24 22:39 Blood Pressure 228/120 H 01/10/24 22:39 Pulse Oximetry 98 01/10/24 22:39 Oxygen Delivery Method Room Air 01/10/24 22:39 Temperature 97.6 F 01/10/24 22:39 Pulse Rate 68 01/11/24 00:15 Respiratory Rate 16 01/11/24 00:15 Blood Pressure 166/76 H 01/11/24 00:15 Pulse Oximetry 97 01/11/24 00:15 Oxygen Delivery Method Room Air 01/11/24 00:15 Medical Decision Making MDM Narrative Medical decision making narrative: Workup including CT brain was found to be negative. He was given IV hydralazine and his blood pressure has improved. He will be discharged home but will call his physicians in the morning to discuss his medications. It is likely that his prostate cancer treatment medications are causing his hypertension. Treatment diagnosis and follow-up were discussed thoroughly. Differential Diagnosis Differential Diagnosis: Hypertension, drug-induced hypertension, intracranial hemorrhage Lab Data Lab results reviewed: Yes I reviewed the patient's lab results Labs: Lab Results 01/10/24 Range/Units 22:45 WBC 12.3 H (4.0-11.0) 10^3/uL RBC 4.21 L (4.70-6.10) 10^6/uL Hgb 12.9 L (14.0-18.0) g/dL Hct 39.7 L (42.0-54.0) % MCV 94.3 H (80.0-94.0) fL MCH 30.6 (25.9-34.0) pg MCHC 32.5 (29.9-35.2) g/dL RDW 13.5 (11.0-15.0) % Plt Count 205 (150-450) 10^3/uL MPV 10.1 (9.5-13.5) fL Neut % (Auto) 57.6 (43.0-75.0) % Lymph % (Auto) 32.1 (20.5-60.0) % Independence % (Auto) 6.4 (1.7-12.0) % Eos % (Auto) 2.3 (0.9-7.0) % Baso % (Auto) 1.1 (0.2-2.0) % Neut # (Auto) 7.1 H (1.4-6.5) 10^3/uL Lymph # (Auto) 4.0 H (1.2-3.8) 10^3/uL Independence # (Auto) 0.8 (0.3-0.8) 10^3/uL Eos # (Auto) 0.3 (0.0-0.7) 10^3/uL Baso # (Auto) 0.1 (0.0-0.1) 10^3/uL Abs Immat Gran (auto) 0.06 H (0.00-0.03) 10^3/uL Imm/Tot Granulo (auto) 0.5 (0.0-0.5) % Sodium 141 (136-145) mmol/L Potassium 3.6 (3.5-5.1) mmol/L Chloride 106 (98-107) mmol/L Carbon Dioxide 27.1 (21.0-32.0) mmol/L Anion Gap 11.5 BUN 14.0 (7.0-18.0) mg/dL Creatinine 1.15 (0.70-1.30) mg/dL Est GFR ( Amer) >60 (>=60) Est GFR (Non-Af Amer) >60 (>=60) BUN/Creatinine Ratio 12.2 Glucose 126 H (74-106) mg/dL Calcium 8.5 (8.5-10.1) mg/dL Imaging Data CT scan - head: Radiologist's impression: ITS Impressions Head CT 01/10/24 22:57 IMPRESSION: No acute or significant intracranial pathology. Electronically authenticated by: DIEGO GONZALES Date: 01/10/2024 23:48 ECG Data Attestation: I personally reviewed and interpreted this ECG as follows: (EKG on my interpretation shows normal sinus rhythm with a rate of 63 and no acute c hange.) Critical Care Time Critical Care Time Critical Care Time: Yes Total Critical Care Time: 35 Attestation: Due to the high probability of sudden and clinically significant deterioration in the patient's condition he/she required the highest level of my preparedness to intervene urgently I provided critical care time including documentation time, medication orders and management, reevaluation, vital sign assessment, ordering and reviewing of lab tests, ordering and reviewing of x-ray studies, and admission orders. Aggregate critical care time is 35 minutes including only time during which I was engaged in work directly related to his/her care and did not include time spent treating other patients simultaneously. Discharge Plan Discharge Stand Alone Forms: Portal Instructions Chief Complaint: Headache Clinical Impression: Hypertension Patient Disposition: Home, Self-Care Time of Disposition Decision: 00:17 Condition: Good Mode of Transportation: Private Vehicle Prescriptions / Home Meds: No Action Xarelto 20 mg tablet 20 mg PO DAILY metformin 500 mg tablet 500 mg PO .once nightly atorvastatin 20 mg tablet 20 mg PO .once nightly metoprolol succinate 50 mg tablet extended release 24 hr 50 mg PO DAILY lisinopril 20 mg tablet 20 mg PO .once nightly prednisone 5 mg tablet 5 mg PO DAILY mirtazapine 15 mg tablet abiraterone 250 mg tablet 500 mg PO DAILY Rx Instructions: must be taken on empty stomach, at least 1 hr before or 2 hrs after a meal/food Print Language: Iranian Instructions: Hypertension (ED) Additional Instructions: Call your physicians in the morning for follow-up and to discuss your medications. Referrals: GABRIEL BELLO [Primary Care Provider] - 1 week
--- NOTE | 2024-01-10 22:57 | CT_ITS ---
The [address] [address] Patient Name: DEV ALVAREZ MRN: [id number] date: 1940 Sex: M Assigned Patient Location: ER Current Patient Location: ER Accession/Order Number: [id number] Exam Date: 01/10/2024 23:15 Report Date: 01/10/2024 23:48 At the request of: OSIEL PALACIOS Procedure: CT head/brain wo con CT OF THE BRAIN WITHOUT CONTRAST: 01/10/2024 11:15 PM EDT HISTORY: Headache. Hypertension. On blood thinning medication. TECHNIQUE: Contiguous axially collimated images were obtained through the intracranial compartment, from the vertex through the foramen magnum. Coronal and Sagittal reformatted images were prepared on a separate workstation and reviewed on the PACS for anatomic correlation. No contrast was administered. This CT exam was performed using one or more of the following dose reduction techniques: Automated exposure control, adjustment of the mA and/or kV according to patient size, or use of iterative reconstruction technique. Thin section coronal and sagittal images were reconstructed from the axial data set. All images were reviewed and interpreted. COMPARISON: CT brain without 09/29/2023. FINDINGS: There is no intracranial hemorrhage or abnormal extra-axial fluid collection. To the extent of evaluated with noncontrast technique, there is no mass lesion appreciated. There is no mass-effect or shift of midline structures. The ventricles and CSF spaces are age appropriate. There is no evidence of hydrocephalus. There is no effacement of the basal cisterns. Mild to moderate bilateral simple cortical atrophy, mostly age-related. Stevenson white matter differentiation is well preserved throughout, without evidence of acute ischemia. No significant periventricular leukomalacia for age. The basal ganglia and thalami are unremarkable. The posterior fossa, brain stem, and fourth ventricle are normal. There is no tonsillar ectopy. The calvarium is intact, without destructive lesion or depressed fracture. The mastoid air cells are well-aerated. The paranasal sinuses are normally aerated. CT/CT head/brain wo con IMPRESSION: No acute or significant intracranial pathology. Electronically authenticated by: DIEGO GONZALES Date: 01/10/2024 23:48
[2024-01-10 23:00] LABS: Basophils Absolute Auto 0.1 10^3/uL (0.0-0.1); Basophils Percent Auto 1.1 % (0.2-2.0); Eosinophils Absolute Auto 0.3 10^3/uL (0.0-0.7); Eosinophils Percent Auto 2.3 % (0.9-7.0); Hematocrit 39.7 % (42.0-54.0); Hemoglobin 12.9 g/dL (14.0-18.0); Immature Granulocytes Abs Auto 0.06 10^3/uL (0.00-0.03); Immature Granulocytes Pct Auto 0.5 % (0.0-0.5); Lymphocytes Percent Auto 32.1 % (20.5-60.0); Mean Corpuscular HGB Conc 32.5 g/dL (29.9-35.2); Mean Corpuscular Hemoglobin 30.6 pg (25.9-34.0); Mean Corpuscular Volume 94.3 fL (80.0-94.0); Mean Platelet Volume 10.1 fL (9.5-13.5); Monocytes Absolute Auto 0.8 10^3/uL (0.3-0.8); Monocytes Percent Auto 6.4 % (1.7-12.0); Neutrophils Absolute Auto 7.1 10^3/uL (1.4-6.5); Neutrophils Percent Auto 57.6 % (43.0-75.0); Platelet Count 205 10^3/uL (150-450); Red Blood Count 4.21 10^6/uL (4.70-6.10); Red Cell Distribution Width 13.5 % (11.0-15.0); White Blood Count 12.3 10^3/uL (4.0-11.0)
[2024-01-10 23:08] VITALS: BP 180/64; BP 192/90; PULSE 68; O2SAT 96
[2024-01-10 23:09] LABS: Anion Gap 11.5; BUN Creatinine Ratio 12.2; Calcium 8.5 mg/dL (8.5-10.1); Carbon Dioxide 27.1 mmol/L (21.0-32.0); Chloride 106 mmol/L (98-107); Estimated GFR (African America >60 (>=60); Estimated GFR (Non-African Ame >60 (>=60); Glucose 126 mg/dL (74-106); Potassium 3.6 mmol/L (3.5-5.1); Sodium 141 mmol/L (136-145)
[2024-01-10 23:25] VITALS: BP 158/133
[2024-01-10] MEDS: HYDRALAZINE HCL 20 MG/ML VIAL 10 MG IVP (23:25)
[2024-01-10 23:55] VITALS: BP 174/72
[2024-01-11 00:15] VITALS: BP 166/76; PULSE 68; O2SAT 97
== END 2024-01-11 00:25 | disposition home or self-care (01) ==
PROVIDERS: Emergency Provider Emergency Medicine; PCP Internal Medicine
DX: I10 Essential (primary) hypertension (principal); Z79.01 Long term (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 of anticoagulants; Z85.46 Personal history of malignant neoplasm of prostate; Z79.899 Other long term (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
CPT/HCPCS: 36415; 70450; 80048; 85025; 93005; 96374; 99285; J0360

== ENCOUNTER 2024-01-31 07:41 | Outpatient (RCR) | payer MEDICARE, SELFPAY ==
[2024-01-31] MEDS: DENOSUMAB 120 MG/1.7 ML VIAL SQ (14:56)
[2024-01-31 14:57] VITALS: BP 182/81; PULSE 69; TEMP 36.4; O2SAT 96
--- NOTE | 2024-01-31 14:58 | PC.NURSE ---
1445: Pt. to [facility] amb. for scheduled injection. Seated in recliner. VSS. Denies adverse reaction from past Xgeva administrations. Declines snack or beverage. 1456: Medicated as directed, see documentation. Pt. tolerated with no c/o. No bleeding at injection site. 1457: D/c'd amb. to home.
== END 2024-02-21 23:59 | disposition home or self-care (01) ==
LOC: INF 07:41
PROVIDERS: PCP Internal Medicine
DX: C61 Malignant neoplasm of prostate (principal)
CPT/HCPCS: 96372; J0897

== ENCOUNTER 2024-02-03 07:22 | Outpatient (OUT) | payer MEDICARE, SELFPAY ==
--- OUTSIDE RECORDS SUMMARY | 2024-02-03 07:26 | XMS_ITS | CCD ---
Author Organization [facility] CliniSyri Care Team Providers Care Refurbish Technician Name Role Phone Gabriel Bello Primary Care Provider Ryan Negron Attending Provider Gabriel Bello Unavailable Unavailable Unavailable DO Gabriel Bello Primary Care Provider [phone] DO Juan Ventura Attending Provider Dr. Gabriel Bello Primary Care Unavai armani Camp II, Dr. Dev Black Attending Unavailable Ryan GARCIA, Dr. Dev Black Referring Unavailable MISC, DR SHERIFF Attending Unavailable MISC, DR SHERIFF Consulting Unavailable MISC, DR SHERIFF Admitting Unavailable ACE, DR RIOS Primary Care Unavailable ACE, DR RIOS Primary Care Unavailable ACE, DR RIOS Admitting Unavailable ACE, DR RIOS Attending Unavailable CAE, DR RIOS Consulting Unavailable DR GABRIEL BELLO [...] Unavailable DO Gabriel Bello Primary Care Provider [phone] MD Jj Garcia Attending Provider [phone] Gabriel Bello DO Primary Care Provider [...] BELLO Attending Unavailable GABRIEL BELLO Referring Unavailable GABRIEL BELLO Referring Unavailable GABRIEL BELLO Attending Unavailable LAURA BARROW Attending Unavailable LAURA BARROW Attending Unavailable GABRIEL BELLO Attending Unavailable GABRIEL BELLO Attending Unavailable GABRIEL BELLO Referring Unavailable GABRIEL BELLO Attending Unavailable DEV CAMP Attending Unavailable GABRIEL BELLO Primary Care Unavailable ASHLEY CARVALHO Attending Unavailable GABRIEL BELLO Primary Care Unavailable Unavailable Unavailable Unavailable Allergies Allergy Classification Reported Allergen(s) Allergy Type Date of Onset Reaction(s) Facility (4 sources) Sulfonamides (Antibiotic); Translations: [Sulfa Drugs] Allergy to drug (finding) [place] [address] DO Work Phone: (5 sources) Sulfonamides (Antibiotic); Translations: [Sulfa (Sulfonamide Antibiotics)] Allergy to substance 2 [facility] (1 source) Sulfonamides (Antibiotic) Drug allergy (disorder) [facility] Repository (2 sources) Substance with sulfonamide structure and antibacterial mechanism of action (substance) Drug allergy Unknown [facility] [employer] Other (1 source) abiraterone; Translations: [ABIRATERONE] Drug Allergy 4 [facility] 3 Repository Medications Current Medications Medication Drug Class(es) Dates Sig (Normalized) Sig (Original) amylase 549728 unt / lipase 71031 unt / protease 28540 unt delayed release oral capsule (3 sources) Start: 11-17-2022 take 1 capsule by mouth three times daily at mealtime cffbfu-lqubxyht-oh ylase (Creon) 24,000-76,000 -120,000 unit capsule Take 1 capsule by mouth 3 times a day with meals. 0 11/17/2022 Active Start: 11-17-2022 Creon 96240-01 000 UNIT 1 with each meal Orally [...] December 05, 2021 12:00am polyethylene glycol 3350 891091 mg / potassium chloride 2970 mg / sodium bicarbonate 6740 mg / sodium chloride 5860 mg / sodium sulfate 81449 mg powder for oral solution (2 sources) [...] mouth see administration instructions. 0 Active Vit C,Q-Cd-Zasmi-Lutein -Zeaxan (Preservision Areds-2) 250-90-40-1 mg Capsule (3 sources) Start: 12-05-2021 Vit C,P-Qw-Gkugy-Lutein- Zeaxan (Preservision Areds-2) 250-90-40-1 mg Capsule Active 1 TAB PO Every morning December 05, 2021 12:47pm Start: 12-05-2021 Vit C,E-Zn-Injection Maintenance Technician ta-Wpjyeh-Gpryar (Preservision Areds-2) 250-90-40-1 mg Capsule Active 1 [...] ascorbic acid 226 mg / beta carotene 25862 unt / cuprous oxide 0.8 mg / [...] abdominal tenderness; Translations: [LLQ ABDOMINAL TENDERNESS] Onset: 3 Episodic Cancer of prostate (7 sources) Malignant neoplasm of prostate; Translations: [MALIGNANT NEOPLASM OF PROSTATE] Onset: 3 Chronic Cardiac dysrhythmias (20 sources) Paroxysmal atrial fibrillation; Translations: [Atrial fibrillation] Onset: 2 Chronic Chronic kidney disease (2 sources) Chronic kidney disease stage 3A ; Translations: [Stage 3a chronic kidney disease] Chronic Chronic kidney disease (2 sources) Chronic kidney disease; Translations: [Chronic kidney disease, stage 3a (Multi)] Onset: 4 Deficiency and other anemia (1 source) Anemia, unspecified; Translations: [ANEMIA UNSPECIFIED] Onset: 3 Episodic Deficiency and other anemia (2 sources) Anemia; Translations: [Anemia, unspecified] Episodic Diabetes mellitus with complications (5 sources) Type 2 diabetes mellitus with other specified complication; Translations: [TYPE 2 DM W/OTHER SPEC COMPLICATION] Onset: 2 Chronic Diabetes mellitus without complication (6 sources) Diabetes mellitus; Translations: [Diabetes mellitus without mention of complication, type II or unspecified type, not stated as uncontrolled] Onset: 4 05-28-2023 Chronic Disorders of lipid metabolism (10 sources) Hyperlipidemia; Translations: [Other and unspecified hyperlipidemia] Onset: 2 07-13-2023 Chronic Diverticulosis and diverticulitis (4 sources) Diverticulosis of intestine, part unspecified, without perforation or abscess without bleeding; Translations: [Diverticular disease of colon] Onset: 3 Chronic Essential hypertension (8 sources) Benign essential hypertension; Translations: [Benign essential hypertension] Onset: 2 07-13-2023 Chronic Heart valve disorders (2 sources) Nonrheumatic mitral (valve) insufficiency; Translations: [Nonrheumatic mitral (valve) insufficiency] Onset: 4 Chronic Miscellaneous mental health disorders (2 sources) Acute insomnia; Translations: [Adjustment insomnia] Episodic Mood disorders (2 sources) Major depressive disorder, single episode, unspecified; Translations: [Depression] Chronic Other aftercare (6 sources) Drug therapy finding; Translations: [Long-term (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 of anticoagulants] Episodic Other aftercare (3 sources) Other jail (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; Translations: [OTH HEALTH CARE LAW SPECIALIST CURRENT DRUG THERAPY] Onset: 2 Episodic Other aftercare (2 sources) [facility] (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 of anticoagulants; Translations: [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 of anticoagulants] Onset: 4 Episodic Other gastrointestinal disorders (2 sources) Irritable bowel syndrome; Translations: [Irritable bowel syndrome without diarrhea] Chronic Other gastrointestinal disorders (1 source) Irritable bowel syndrome without diarrhea Chronic Other gastrointestinal disorders (1 source) Other fecal abnormalities; Translations: [OTHER FECAL ABNORMALITIES] Onset: 3 Episodic Other gastrointestinal disorders (2 sources) Altered [...] disorders (3 sources) Overweight; Translations: [Overweight] Episodic Other screening for suspected conditions (not mental disorders or infectious disease) (2 sources) Abnormal electrocardiogram [ECG] [EKG]; Translations: [Abnormal electrocardiogram (ECG) (EKG)] Onset: 4 Episodic Residual codes; unclassified (3 sources) Body mass index 20-24 - normal; Translations: [Body Mass Index between 19-24, adult] Episodic Unclassified (1 source) Diarrhea, unspecified; Translations: [Diarrhea, unspecified] Onset: 3 Past or Other Problems Problem Classification Problem Date Documented Da te Episodic/Chronic Other gastrointestinal disorders (3 sources) Change in [...] sb-mton 09-13-2023 PET psma initial tx sb-mt [facility] [place] [address] [place], [place] [id number] Nuclear Medicine Report Signed Patient: Dev Walsh MR#: [id number] 906 : 1940 Acct:[id number] Age/Sex: 83 / M ADM Date: 09/13/23 Loc: PE Room: Type: [facility] Attending Dr: SYLWIA STAFF Copies to: NON [...] Jordan Story M.D.09/13/2023 3:20 PM Dictation Location: [facility]--07 Transcribed By: PWS 09/13/23 152 Dictated By: Jordan Story II, MD 09/13/23 151 Signed By: 09/13/231519 Normal [facility] ECG 12 [place] 07-13-2023 Sinus rhythm with frequent PVCs Otherwise normal EKG QTc 444 ms [facility] Work Phone: Joni 12-24-2022 L Specimen: [id number] Received: 12/24/22 Status: DEONDRE Joshua Num: [id number] Spec Type: Surgical Subm Dr: Jj Garcia MD Tissues: A Colon Biopsy (RANDOM COLON) B Colon Biopsy (ASCENDING POLYP) Procedures: Lizett VASQUEZ/Saurabh L4/2 Age/ Patient Sex Location Account Attending Physician Dev Walsh 82/M [id number] Jj Garcia MD SPEC NUM: [id number] RECD: 12/24/22 STATUS: DEONDRE LEWIS NUM: [id number] JARRET: 12/24/22- DR: Jj Garcia MD ENTERED: 12/24/[address] [facility] [address]: SPEC TYPE: Surgical DEPT: S ORDERED: [...] submitted in one cassette labeled B1. Specimen: [id number] Received: 12/24/22 Status: DEONDRE Lewis Num: [id number] Spec Type: Surgical Subm Dr: Jj Garcia MD Tissues: A Colon Biopsy (RANDOM COLON) B Colon Biopsy (ASCENDING POLYP) Procedures: HE/4, Gross/Micro L4/2 Patient: Dev Walsh [id number] (Continued) Specimen: [id number] Received: 12/24/22 (Continued) Signed (signature on file) Natan Davidson MD 12/29/22 1658 Specimen: [id number] Received: 12/24/22 Status: DEONDRE Lewis Num: [id number] Spec Type: Surgical Subm Dr: Jj Garcia MD Tissues: A Colon Biopsy (RANDOM COLON) B Colon Biopsy (ASCENDING POLYP) Procedures: Lizett VASQUEZ/Saurabh L4/2 Patient: Dev Walsh [id number] (Continued) Specimen: [id number] Received: 12/24/22 (Continued) Microscopic Description A. Two H E slides reviewed. The microscopic examination confirms the diagnosis. B. Two H E slides reviewed. The microscopic examination confirms the diagnosis. CPT Codes 78148f2 Specimen: [id number] Received: 12/24/22 Status: DEONDRE Lewis Num: [id number] Spec Type: Surgical Subm Dr: Jj Garcia MD Tissues: A Colon Biopsy (RANDOM COLON) B Colon Biopsy (ASCENDING POLYP) Procedures: HE/Catherine, Gross/Micro L4/2 Patient: Dev Walsh [id number] (Continued) Signed (signature on file) Natan Davidson MD 12/29/22 1658 Normal [facility] Blood Urea Nitrogenon 2022 Urea nitrogen [Mass/Vol] 31 mg/dL High 7-25 [facility] Comment on above: Order Comment: Reaso n for Exam Change in bowel habits Performed By: #### T SH3, BUN, CREAT #### [facility] [address] [place] [address] C reactive protein [Mass/vol ume] in Serum or PlasmaOrdered By: Jj Garcia on 11-26-2022 CRP [Mass/Vol] < 0.5 mg/dL 0.0-0.5 [facility] C-Reactive Proteinon 023 CRP [Mass/Vol] mg/L Normal 0.0-0.5 [facility] Comment on above: Order Comment: Reaso n for Exam Change in bowel habits Result Comment: PERF ORMED BY: [place] [address] PATHOLOGIST PSYCHIATRIC SECURITY NURSE WILMA MANTILLA M.D. Performed By: #### C RP, ESR #### [facility] [address] [place] [address] [place] #### HIV SCREEN #### [facility] , CT abdomen pelvis w conon CT abdomen pelvis w [facility] [place] [address] [place] [address] CT Scan Report Signed Patient: Dev Walsh MR#: [id number] 906 : 1940 Acct:[id number] Age/Sex: 82 / M ADM Date: 11/26/22 Loc: CT Room: Type: [facility] Attending Dr: Jj Garcia MD Copies to: [...] Mandujano Jr., D.O.11/26/2022 7:19 PM Dictation Location: [place] [address] Transcribed By: [facility] 11/26/221918 Dictated By: Jered Mandujano Jr, DO 11/26/221906 Signed By: 11/26/221918 Normal [facility] Creatinineon 11-26-2022 Creatinine [Mass/Vol] 1.55 mg/dL High 0.70-1.30 [facility] Comment on above: Order Comment: Reaso n for Exam Change in bowel habits Performed By: #### T SH3, BUN, CREAT #### [facility] [address] [place] [address] GFR/1.73 sq M.predicted MDRD (S/P/Bld) [Vol rate/Area] 43.863 mL/min/{1.73_m2} Normal [facility] Comment on above: Order Comment: Reaso n for Exam Change in bowel habits Performed By: #### T SH3, BUN, CREAT #### [facility] [address] [place] [address] Creatinine [Mass/volume] in Serum or PlasmaOrdered By: Gabriel Bello on 11-26-2022 Creatinine [Mass/Vol] 1.55 mg/dL 0.70-1.30 [facility] Erythrocyte Sedimentation Ra juli 11-26-2022 ESR (Bld) [Velocity] 18 mm/h Normal 0-19 [facility] Comment on above: Order Comment: Reaso n for Exam Change in bowel habits Result Comment: PERF ORMED BY: [place] [address] PATHOLOGIST PSYCHIATRIC SECURITY NURSE WILMA MANTILLA M.D. Performed By: #### C RP, ESR #### [address] #### HIV SCREEN #### [facility] , Erythrocyte sedimentation ra te by Photometric methodOrdered By: Jj Garcia on 11-26-2022 ESR Photometric method (Bld) [Velocity] 18 mm/hr 0-19 [facility] HIV 1/O/2 Antigen/Antibodyon 11-26-2022 HIV Screen 4th Generation Non-Reactive Normal Non Reactive [facility] Comment on above: Order Comment: Reaso n for Exam Change in bowel habits Result Comment: HIV Negative HIV-1/HIV-2 antibodies and HIV-1 p24 antigen were NOT detected. There is no laboratory evidence of HIV infection. Performed at: [facility] [address] [id number] Drift Miner: Miguel Cullen PhD, Phone: [phone] PERFORMED BY: [place] [address] PATHOLOGIST PSYCHIATRIC SECURITY NURSE WILMA MANTILLA M.D. Performed By: #### C RP, ESR #### [facility] [address] [place] [address] [place] #### HIV SCREEN #### [facility] , No Panel InformationOrdered By: Gabriel Bello on 11-26-2022 Estimated GFR (CKD-EPI) 43.863 mL/Min [facility] Creatinine Clearance (Chem N/A [facility] Thyroid Stimulating Hormoneo n 11-26-2022 TSH Qn 1.23 m[IU]/L Normal 0.45-5.33 [facility] Comment on above: Order Comment: Reaso n for Exam Change in bowel habits Result Comment: PERF ORMED BY: [place] [address] PATHOLOGIST PSYCHIATRIC SECURITY NURSE WILMA MANTILLA M.D. Performed By: #### T SH3, BUN, CREAT #### [facility] [address] [place] [address] Thyrotropin [Units/volume] i n Serum or PlasmaOrdered By: Imaryan Asaad on 11-26-2022 TSH Qn 1.23 m[IU]/L 0.45-5.33 [facility] Urea nitrogen [Mass/volume] in Serum or PlasmaOrdered By: Gabriel Bello on 11-26-2022 Urea nitrogen [Mass/Vol] 31 mg/dL 7-25 [facility] PANCREATIC ELASTASE FECALon 09-08-2022 Pancreatic Elastase, Fecal 86 ug Elast./g Critically low >[address] [facility] Comment on above: Result Comment: Re sults verified by repeat testing Severe Pancreatic Insufficiency: <100 Moderate Pancreatic Insufficiency: 100 - 200 Normal: >200 Performed By: #### L IPID, TSH, CMP #### [facility] [address] [place] [address] [address] Leesa Urbina CELIAC ANTIBODIES PROFILEon 09-04-2022 Deamidated Gliadin Abs, IgA 8 units Normal 0-19 [facility] Comment on above: Result Comment: Nega tive 0 - 19 Weak Positive 20 - 30 Moderate to Strong Positive >30 Performed By: #### C ELIACP #### [facility] [address] [place] [address] [address] Leesa Urbina Deamidated Gliadin Abs, IgG 4 units Normal 0-[address] [facility] Comment on above: Result Comment: Nega tive 0 - 19 Weak Positive 20 - 30 Moderate to Strong Positive >30 Performed By: #### C ELIACP #### [facility] [address] [place] [address] [address] Leesa Urbina Endomysial Antibody IgA Negative Normal Negative [facility] Comment on above: Performed By: #### C ELIACP #### [facility] [address] [place] [address] [address] Leesa Urbina Immunoglobulin A, Qn, Serum 143 mg/dL Normal 61-[address] [facility] Comment on above: Performed By: #### C ELIACP #### [facility] [address] [place] [address] Dr. Leesa Urbina t-Transglutaminase (tTG) IgA <2 [...] #### [facility] [address] [place] [address] Dr. Leesa Urbina t-Transglutaminase (tTG) IgG 6 U/mL Critically high 0-5 [facility] Comment on above: Result Comment: Nega tive 0 - 5 Weak Positive 6 - 9 Positive >9 Performed By: #### C ELIACP #### [facility] [address] [place] [address] Dr. Leesa Urbina CBC AUTO DIFFon 09-03-2022 BASO # 0.1 103/ul Normal 0.0-0.[address] [facility] Comment on above: Performed By: #### L IPID, TSH, CMP #### [facility] [address] [place] [address] Dr. Leesa Urbina Basophils/100 WBC (Bld) 1.1 % Normal 0.2-2.0 [facility] Comment on above: Performed By: #### L IPID, TSH, CMP #### [facility] [address] [place] [address] Dr. Leesa Urbina EO # 0.6 103/ul Normal 0.0-0.7 [facility] Comment on above: Performed By: #### L IPID, TSH, CMP #### [facility] [address] [place] [address] Dr. Leesa Urbina Eosinophils/100 WBC (Bld) 7.9 % Critically high 0.9-7.0 [facility] Comment on above: Performed By: #### L IPID, TSH, CMP #### [facility] [address] [place] [address] Dr. Leesa Urbina Erythrocyte distribution width (RBC) [Ratio] 13.6 % Normal 11.0-15.[address] [facility] Comment on above: Performed By: #### L IPID, TSH, CMP #### [facility] [address] [place] [address] Dr. Leesa Urbina Hematocrit (Bld) [Volume fraction] 34.4 % Critically low 42.0-54.[address] [facility] Comment on above: Performed By: #### L IPID, TSH, CMP #### [facility] [address] [place] [address] Dr. Leesa Urbina Hemoglobin (Bld) [Mass/Vol] 11.4 g/dL Critically low 14.0-18.0 [facility] Comment on above: Performed By: #### L IPID, TSH, CMP #### [facility] [address] [place] [address] Dr. Leesa Urbina IG # 0.02 10e3/ul Normal 0.00-0.03 [facility] Comment on above: Performed By: #### L IPID, TSH, CMP #### [facility] [address] [place] [address] Dr. Leesa Urbina IG % 0.3 % Normal 0.0-0.5 [facility] Comment on above: Performed By: #### L IPID, TSH, CMP #### [facility] [address] [place] [address] [address] Leesa Urbina LYMPH # 2.1 103/ul Normal 1.2-3.8 [facility] Comment on above: Performed By: #### L IPID, TSH, CMP #### [facility] [address] [place] [address] Dr. Leesa Urbina Lymphocytes/100 WBC (Bld) 28.1 % Normal 20.5-60.[address] [facility] Comment on above: Performed By: #### L IPID, TSH, CMP #### [facility] [address] [place] [address] Dr. Leesa Urbina MANUAL DIFF REQ NO Normal [facility] Comment on above: Performed By: #### L IPID, TSH, CMP #### [facility] [address] [place] [address] Dr. Leesa Urbina MCH (RBC) [Entitic mass] 31.1 pg Normal 25.9-34.[address] [facility] Comment on above: Performed By: #### L IPID, TSH, CMP #### [facility] [address] [place] [address] Dr. Leesa Urbina MCHC (RBC) [Mass/Vol] 33.1 g/dL Normal 29.9-35.[address] [facility] Comment on above: Performed By: #### L IPID, TSH, CMP #### [facility] [address] [place] [address] Dr. Leesa Urbina MCV (RBC) [Entitic vol] 93.7 fL Normal 80.0-94.[address] [facility] Comment on above: Performed By: #### L IPID, TSH, CMP #### [facility] [address] [place] [address] Dr. Leesa Urbina MONO # 0.4 103/ul Normal 0.3-0.[address] [facility] Comment on above: Performed By: #### L IPID, TSH, CMP #### [facility] [address] [place] [address] Dr. Leesa Urbina Monocytes/100 WBC (Bld) 6.0 % Normal 1.7-12.[address] [facility] Comment on above: Performed By: #### L IPID, TSH, CMP #### [facility] [address] [place] [address] [address] Leesa Urbina NEUT # 4.2 103/ul Normal 1.4-6.[address] [facility] Comment on above: Performed By: #### L IPID, TSH, CMP #### [facility] [address] [place] [address] Dr. Leesa Urbina Neutrophils/100 WBC (Bld) 56.6 % Normal 43.0-75.[address] [facility] Comment on above: Performed By: #### L IPID, TSH, CMP #### [facility] [address] [place] [address] Dr. Leesa Urbina Platelet mean volume (Bld) [Entitic vol] 10.1 fL Normal 9.5-13.5 [facility] Comment on above: Performed By: #### L IPID, TSH, CMP #### [facility] [address] [place] [address] Dr. Leesa Urbina PLT 195 103/ul Normal 150-[address] [facility] Comment on above: Performed By: #### L IPID, TSH, CMP #### [facility] [address] [place] [address] Dr. Leesa Urbina RBC 3.67 106/ul Critically low 4.70-6.10 [facility] Comment on above: Performed By: #### L IPID, TSH, CMP #### [facility] [address] [place] [address] Dr. Leesa Urbina WBC 7.3 103/ul Normal 4.0-11.0 [facility] Comment on above: Performed By: #### L IPID, TSH, CMP #### [facility] [address] [place] [address] Dr. Leesa Urbina FERRITINon 09-03-2022 Ferritin [Mass/Vol] 44.0 ng/mL Normal 26.0-388.0 [facility] Comment on above: Performed By: #### F ERR, FETIBC #### [facility] [address] [place], [place] [address] Dr. Leesa Urbina IRON AND TIBCon 09-03-2022 % SATURATION 23.5 % Normal [facility] Comment on above: Performed By: #### F ERR, FETIBC #### [facility] [address] [place], [place] [address] Dr. Leesa Urbina Iron [Mass/Vol] 69.0 ug/dL Normal 65.0-175.0 [facility] Comment on above: Performed By: #### F ERR, FETIBC #### [facility] [address] [place], [place] [address] Dr. Leesa Urbina TIBC DIRECT 294.0 ug/dL Normal 250.0-450.0 [facility] Comment on above: Performed By: #### F ERR, FETIBC #### [facility] [address] [place], [place] [address] Dr. Leesa Urbina Office Visit (Cardiology)on 07-14-2022 Follow-up visit Diagnoses/Problems Assessed Anticoagulated (V58.61) (Z79.01) Benign essential hypertension (401.1) (I10) Hyperlipidemia (272.4) (E78.5) Paroxysmal atrial fibrillation (427.31) (I48.0) Diabetes mellitus (250.00) (E11.9) Body mass index (BMI) of 24.0 to 24.9 in adult (V85.1) (Z68.24) Never a smoker Orders SocHx: Never a smoker Tobacco Use Screening; Status:Complete; Done: [id number] Patient Instructions Please bring all medicines, vitamins, [...] negative for complaint. Vitals Vital Signs Recorded: [id number] 09:08AM Heart Rate68, L Radial Xtzhtgpz513, LUE, Sitting Faxispwcy30, LUE, Sitting Height5 ft 11 in Lcxnvl196 lb BMI Ersyxrxsbk65.13 kg/m2 BSA Calculated1.98 Tobacco Useb) No PHQ-2 [...] Jul 14 2022 10:20AM EST (Author) Normal [employer] Tobacco Screening.on 023 Adult depression screening assessment No [facility] 250 DO Work Phone: Fall risk assessment a) No falls within the last year [facility] 250 DO Work Phone: Tobacco use status [facility] b) No [facility] 250 DO Work Phone: CBC AUTO DIFFon 05-06-2022 BASO # 0.1 103/ul Normal 0.0-0.1 [facility] Comment on above: Performed By: #### C BC #### [facility] [facility] [address] [place], [place] [address] Dr. Leesa Urbina Basophils/100 WBC (Bld) 1.4 % Normal 0.2-2.0 [facility] Comment on above: Performed By: #### C BC #### [facility] [address] [place] [address] Dr. Leesa Urbina EO # 0.4 103/ul Normal 0.0-0.7 [facility] Comment on above: Performed By: #### C BC #### [facility] [address] [place] [address] Dr. Leesa Urbina Eosinophils/100 WBC (Bld) 5.4 % Normal 0.9-7.0 [facility] Comment on above: Performed By: #### C BC #### [facility] [address] [place] [address] Dr. Leesa Urbina Erythrocyte distribution width (RBC) [Ratio] 13.3 % Normal 11.0-15.0 [facility] Comment on above: Performed By: #### C BC #### [facility] [address] [place] [address] Dr. Leesa Urbina Hematocrit (Bld) [Volume fraction] 35.8 % Critically low 42.0-54.[address] [facility] Comment on above: Performed By: #### C BC #### [facility] [address] [place] [address] Dr. Leesa Urbina Hemoglobin (Bld) [Mass/Vol] 12.0 g/dL Critically low 14.0-18.0 [facility] Comment on above: Performed By: #### C BC #### [facility] [address] [place] [address] Dr. Leesa Urbina IG # 0.01 10e3/ul Normal 0.00-0.03 [facility] Comment on above: Performed By: #### C BC #### [facility] [address] [place] [address] Dr. Leesa Urbina IG % 0.2 % Normal 0.0-0.5 [facility] Comment on above: Performed By: #### C BC #### [facility] [address] [place] [address] Dr. Leesa Urbina LYMPH # 1.7 103/ul Normal 1.2-3.8 [facility] Comment on above: Performed By: #### C BC #### [facility] [address] [place] [address] Dr. Leesa Urbina Lymphocytes/100 WBC (Bld) 26.1 % Normal 20.5-60.0 [facility] Comment on above: Performed By: #### C BC #### [facility] [address] [place] [address] Dr. Leesa Urbina MANUAL DIFF REQ NO Normal [facility] Comment on above: Performed By: #### C BC #### [facility] [address] [place] [address] Dr. Leesa Urbina MCH (RBC) [Entitic mass] 31.0 pg Normal 25.9-34.0 [facility] Comment on above: Performed By: #### C BC #### [facility] [address] [place] [address] Dr. Leesa Urbina MCHC (RBC) [Mass/Vol] 33.5 g/dL Normal 29.9-35.2 [facility] Comment on above: Performed By: #### C BC #### [facility] [address] [place] [address] Dr. Leesa Urbina MCV (RBC) [Entitic vol] 92.5 fL Normal 80.0-94.0 [facility] Comment on above: Performed By: #### C BC #### [facility] [address] [place] [address] Dr. Leesa Urbina MONO # 0.4 103/ul Normal 0.3-0.8 [facility] Comment on above: Performed By: #### C BC #### [facility] [address] [place] [address] Dr. Leesa Urbina Monocytes/100 WBC (Bld) 6.5 % Normal 1.7-12.0 [facility] Comment on above: Performed By: #### C BC #### [facility] [address] [place] [address] Dr. Leesa Urbina NEUT # 4.0 103/ul Normal 1.4-6.5 [facility] Comment on above: Performed By: #### C BC #### [facility] [address] [place] [address] Dr. Leesa Urbina Neutrophils/100 WBC (Bld) 60.4 % Normal 43.0-75.[address] [facility] Comment on above: Performed By: #### C BC #### [facility] [address] [place] [address] [address] Leesa Urbina Platelet mean volume (Bld) [Entitic vol] 10.6 fL Normal 9.5-13.[address] [facility] Comment on above: Performed By: #### C BC #### [facility] [address] [address] [address] Leesa Urbina PLT 185 103/ul Normal 150-450 [facility] Comment on above: Performed By: #### C BC #### [facility] [address] [place] [address] Dr. Leesa Urbina RBC 3.87 106/ul Critically low 4.70-6.10 [facility] Comment on above: Performed By: #### C BC #### [facility] [address] [place] [address] Dr. Leesa Urbina WBC 6.6 103/ul Normal 4.0-11.[address] [facility] Comment on above: Performed By: #### C BC #### [facility] [address] [place] [address] Dr. Leesa Urbina GLYCOHEMOGLOBIN A1Con 2021 ADA RECOMMENDATION SEE BELOW Normal [facility] Comment on above: Result Comment: ADA RECOMMENDED LIMIT 4.0 - 6.0 ADA THERAPEUTIC TARGET < 7.0 ACTION SUGGESTED > 7.0 Performed By: #### A 1C #### [facility] [address] [place] [address] Dr. Leesa Urbina Glucose [Mass/Vol] 151 mg/dL Normal [facility] Comment on above: Performed By: #### A 1C #### [facility] [address] [place] [address] Dr. Leesa Urbina HbA1c (Bld) [Mass fraction] 6.9 % Critically high 4.5-6.[address] [facility] Comment on above: Performed By: #### A 1C #### [facility] [address] [place] [address] Dr. Leesa Urbina LIPID PROFILEon 05-06-2022 CHOL-HDL RATIO NORM SEE BELOW Normal [facility] Comment on above: Result Comment: 3.3 - 4.4 LOW RISK 4.4 - 7.1 AVERAGE RISK 7.1 - 11.0 MODERATE RISK >11.0 HIGH RISK Performed By: #### L IPID, TSH, CMP #### [facility] [address] [address] [address] Leesa Urbina Cholesterol [Mass/Vol] 136 mg/dL Normal <=[address] [facility] Comment on above: Performed By: #### L IPID, TSH, CMP #### [facility] [address] [address] [address] Leesa Urbina Cholesterol in HDL [Mass/Vol] 62 mg/dL Critically high 40-[address] [facility] Comment on above: Performed By: #### L IPID, TSH, CMP #### [facility] [address] [place] [address] Dr. Leesa Urbina Cholesterol in LDL [Mass/Vol] 53.0 mg/dL Normal [facility] Comment on above: Performed By: #### L IPID, TSH, CMP #### [facility] [address] [place] [address] Dr. Leesa Urbina Cholesterol.total/Chol esterol in HDL [Mass ratio] 2.2 {ratio} Normal [facility] Comment on above: Performed By: #### L IPID, TSH, CMP #### [facility] [address] [place] [address] Dr. Leesa Urbina HDL NORMAL > or = 60 mg/dl - LOW CARDIOVASCULAR RISK <40 mg/dl - HIGH CARDIOVASCULAR RISK Normal [facility] Comment on above: Performed By: #### L IPID, TSH, CMP #### [facility] [address] [place] [address] Dr. Leesa Urbina LDL CALC NORMAL SEE BELOW Normal [facility] Comment on above: Result Comment: <100 mg/dl OPTIMAL 100 - 129 mg/dl NEAR OR ABOVE OPTIMAL 130 - 159 mg/dl BORDERLINE HIGH 160 - 189 mg/dl HIGH >190 mg/dl VERY HIGH Performed By: #### L IPID, TSH, CMP #### [facility] [address] [address] [address] Leesa Urbina Triglyceride [Mass/Vol] 105 mg/dL Normal <=[address] [facility] Comment on above: Performed By: #### L IPID, TSH, CMP #### [facility] [address] [place] [address] Dr. Leesa Urbina VLDL CALC 21.0 mg/dL Normal [facility] Comment on above: Performed By: #### L IPID, TSH, CMP #### [facility] [address] [place] [address] [address] Leesa Urbina PROF 14(COMP METB)on 022 Albumin [Mass/Vol] 3.4 g/dL Normal 3.4-5.0 [facility] Comment on above: Performed By: #### L IPID, TSH, CMP #### [facility] [address] [place] [address] Dr. Leesa Urbina Albumin/Globulin [Mass ratio] 1.1 {ratio} Normal [facility] Comment on above: Performed By: #### L IPID, TSH, CMP #### [facility] [address] [place] [address] Dr. Leesa Urbina ALP [Catalytic activity/Vol] 77 U/L Normal 46-[address] [facility] Comment on above: Performed By: #### L IPID, TSH, CMP #### [facility] [address] [place] [address] Dr. Leesa Urbina ALT [Catalytic activity/Vol] 12 U/L Critically low 16-[address] [facility] Comment on above: Performed By: #### L IPID, TSH, CMP #### [facility] [address] [place] [address] Dr. Leesa Urbina Anion gap [Moles/Vol] 12.7 mmol/L Normal [facility] Comment on above: Performed By: #### L IPID, TSH, CMP #### [facility] [address] [place] [address] Dr. Leesa Urbina AST [Catalytic activity/Vol] 19 U/L Normal 15-[address] [facility] Comment on above: Performed By: #### L IPID, TSH, CMP #### [facility] [address] [place] [address] Dr. Leesa Urbina Bilirubin [Mass/Vol] 0.4 mg/dL Normal 0.2-1.[address] [facility] Comment on above: Performed By: #### L IPID, TSH, CMP #### [facility] [address] [place] [address] Dr. Leesa Urbina Calcium [Mass/Vol] 8.5 mg/dL Normal 8.5-10.1 [facility] Comment on above: Performed By: #### L IPID, TSH, CMP #### [facility] [address] [place] [address] Dr. Leesa Urbina Chloride [Moles/Vol] 107 mmol/L Normal 98-[address] [facility] Comment on above: Performed By: #### L IPID, TSH, CMP #### [facility] [address] [place] [address] Dr. Leesa Urbina CO2 [Moles/Vol] 27.4 mmol/L Normal 21.0-32.0 [facility] Comment on above: Performed By: #### L IPID, TSH, CMP #### [facility] [address] [place] [address] Dr. Leesa Urbina Creatinine [Mass/Vol] 1.06 mg/dL Normal 0.70-1.[address] [facility] Comment on above: Performed By: #### L IPID, TSH, CMP #### [facility] [address] [place] [address] Dr. Leesa Urbina EGFR-AF DJIBOUTIAN >60 Normal >=60 [facility] Comment on above: Performed By: #### L IPID, TSH, CMP #### [facility] [address] [place] [address] Dr. Leesa Urbina EGFR-NON AF DJIBOUTIAN >60 Normal >=[address] [facility] Comment on above: Performed By: #### L IPID, TSH, CMP #### [facility] [address] [place] [address] Dr. Leesa Urbina Globulin (S) [Mass/Vol] 3.1 g/dL Normal [facility] Comment on above: Performed By: #### L IPID, TSH, CMP #### [facility] [address] [address] [address] Leesa Urbina Glucose [Mass/Vol] 171 mg/dL Critically high 74-106 [facility] Comment on above: Performed By: #### L IPID, TSH, CMP #### [facility] [address] [address] [address] Leesa Urbina Potassium [Moles/Vol] 4.1 mmol/L Normal 3.5-5.[address] [facility] Comment on above: Performed By: #### L IPID, TSH, CMP #### [facility] [address] [place] [address] Dr. Leesa Urbina Protein [Mass/Vol] 6.5 g/dL Normal 6.4-8.2 [facility] Comment on above: Performed By: #### L IPID, TSH, CMP #### [facility] [address] [place] [address] Dr. Leesa Urbina Sodium [Moles/Vol] 143 mmol/L Normal 136-145 [facility] Comment on above: Performed By: #### L IPID, TSH, CMP #### [facility] [address] [place] [address] Dr. Leesa Urbina Urea nitrogen [Mass/Vol] 24.0 mg/dL Critically high 7.0-18.[address] [facility] Comment on above: Performed By: #### L IPID, TSH, CMP #### [facility] [address] [place] [address] Dr. Leesa Urbina Urea nitrogen/Creatinine [Mass ratio] 22.6 mg/mg Normal [facility] Comment on above: Performed By: #### L IPID, TSH, CMP #### [facility] [address] [place] [address] Dr. Leesa Urbina Basophils Auto (Bld) [#/Vol] Ordered By: Juan Ventura on 12-05-2021 Basophils (Bld) [#/Vol] 0.1 10*3/uL 0.0-0.2 [facility] Basophils/100 WBC Auto (Bld) Ordered By: Juan Ventura on 12-05-2021 Basophils/100 WBC (Bld) 0.9 % [facility] Blood hemoglobin measurement (mass/volume)Ordered By: Juan Ventura on 12-05-2021 Hemoglobin (Bld) [Mass/Vol] 12.4 g/dL 13.0-17.0 [facility] Blood leukocytes automated c ount (number/volume)Ordered By: Juan Ventura on 12-05-2021 WBC (Bld) [#/Vol] 7.0 10*3/uL 4.5-11.0 [facility] COVID-19 Positive/NegativeOr dered By: Juan Ventura on 12-05-2021 SARS-CoV-2 (COVID-19) N gene RENETTA+probe Ql (Resp) Negative Negative [facility] Comment on above: Testing for SARS-CoV -2 by RT-PCR This test was developed and its performance characteristics determined by [employer] and validated at the [facility]. This test has not been FDA [...] on 12-05-2021 Creatinine [Mass/Vol] 1.28 mg/dL 0.64-1.27 [facility] Eosinophils Auto (Bld) [#/Vo l]Ordered By: Juan Ventura on 12-05-2021 Eosinophils (Bld) [#/Vol] 0.1 10*3/uL 0.0-0.45 [facility] Eosinophils/100 WBC Auto (Bl d)Ordered By: Juan Ventura on 12-05-2021 Eosinophils/100 WBC (Bld) 2.1 % [facility] Erythrocyte distribution wid th Auto (RBC) [Ratio]Ordered By: Juan Ventura on 12-05-2021 Erythrocyte distribution width (RBC) [Ratio] 14.6 % 12.0-14.8 [facility] Estimated glomerular filtrat ion rate (GFR) non- AmericanOrdered By: Juan Ventura on 12-05-2021 GFR/1.73 sq M.predicted among non-blacks MDRD (S/P/Bld) [Vol rate/Area] 54 mL/Min [facility] Hematocrit Auto (Bld) [Volum e fraction]Ordered By: Juan Ventura on 12-05-2021 Hematocrit (Bld) [Volume fraction] 37.3 % 38.8-50.0 [facility] - Hematology and Cell countsOrdered By: Juan Ventura on 12-05-2021 Nucleated RBC/100 WBC (Bld) [Ratio] 0.0 % 0-0.5 [facility] Lymphocytes Auto (Bld) [#/Vo l]Ordered By: Juan Ventura on 12-05-2021 Lymphocytes (Bld) [#/Vol] 1.4 10*3/uL 1.00-4.8 [facility] Lymphocytes/100 WBC Auto (Bl d)Ordered By: Juan Ventura on 12-05-2021 Lymphocytes/100 WBC (Bld) 19.8 % [facility] MCH Auto (RBC) [Entitic mass ]Ordered By: Juan Ventura on 12-05-2021 MCH (RBC) [Entitic mass] 30.8 pg 27.5-35.2 [facility] MCHC Auto (RBC) [Mass/Vol]Or dered By: Juan Ventura on 12-05-2021 MCHC (RBC) [Mass/Vol] 33.1 g/dL 32.5-35.6 [facility] MCV Auto (RBC) [Entitic vol] Ordered By: Juan Ventura on 12-05-2021 MCV (RBC) [Entitic vol] 93.1 fL 83.5-101 [facility] Monocytes Auto (Bld) [#/Vol] Ordered By: Juan Ventura on 12-05-2021 Monocytes (Bld) [#/Vol] 0.5 10*3/uL 0.0-0.8 [facility] Monocytes/100 WBC Auto (Bld) Ordered By: Juna Ventura on 12-05-2021 Monocytes/100 WBC (Bld) 7.3 % [facility] Neutrophils Auto (Bld) [#/Vo l]Ordered By: Juan Ventura on 12-05-2021 Neutrophils (Bld) [#/Vol] 4.9 10*3/uL 1.8-7.7 [facility] Neutrophils/100 WBC Auto (Bl d)Ordered By: Juan Ventura on 12-05-2021 Neutrophils/100 WBC (Bld) 69.9 % [facility] No Panel InformationOrdered By: Juan Ventura on 12-05-2021 Estimated GFR () > 60 mL/Min [facility] Comment on above: GFR estimated refere nce range: According to KDOQI guidelines, <60 ml/min/1.73m2 is sufficient to diagnose a patient with chronic kidney disease. Pharmacy Creatinine Clearance (Chem N/A [facility] Platelet mean volume Auto (B ld) [Entitic vol]Ordered By: Juan Ventura on 12-05-2021 Platelet mean volume (Bld) [Entitic vol] 8.9 fL 6.6-10.1 [facility] Platelets Auto (Bld) [#/Vol] Ordered By: Juan Ventura on 12-05-2021 Platelets (Bld) [#/Vol] 194 10*3/uL 150-450 [facility] RBC Auto (Bld) [#/Vol]Ordere d By: Juan Ventura on 12-05-2021 RBC (Bld) [#/Vol] 4.00 10*6/uL 3.90-5.60 [facility] Serum or plasma calcium fco urement (mass/volume)Ordered By: Juan Ventura on 12-05-2021 Calcium [Mass/Vol] 9.2 mg/dL 8.2-10.2 [facility] Serum or plasma chloride daniel surement (moles/volume)Ordered By: Juan Ventura on 12-05-2021 Chloride [Moles/Vol] 107 mmol/L 95-114 [facility] Serum or plasma glucose fco urement (mass/volume)Ordered By: Juan Ventura on 12-05-2021 Glucose [Mass/Vol] 117 mg/dL 70-100 [facility] Comment on above: ADA recommended refe rence range Random Glucose Reference Range is dependent on time and content of last meal. Glucose of more than 200 mg/dL in a nonstressed, ambulatory subject supports the diagnosis of Diabetes Mellitus. Serum or plasma potassium me asurement (moles/volume)Ordered By: Juan Ventura on 12-05-2021 Potassium [Moles/Vol] 4.6 mmol/L 3.5-5.1 [facility] Serum or plasma sodium measu rement (moles/volume)Ordered By: Juan Ventura on 12-05-2021 Sodium [Moles/Vol] 141 mmol/L 136-146 [facility] Serum or plasma total carbon dioxide measurement (moles/volume)Ordered By: Juan Ventura on 12-05-2021 CO2 [Moles/Vol] 26.2 mmol/L 22.0-30.0 [facility] Serum or plasma urea nitroge n measurement (mass/volume)Ordered By: Juan Ventura on 12-05-2021 Urea nitrogen [Mass/Vol] 23 mg/dL 9-23 [facility] CBC AUTO DIFFon 11-05-2021 BASO # 0.1 103/ul Normal 0.0-0.[address] [facility] Comment on above: Performed By: #### C BC #### [facility] [address] [address] [address] Leesa Urbina Basophils/100 WBC (Bld) 0.8 % Normal 0.2-2.[address] [facility] Comment on above: Performed By: #### C BC #### [facility] [address] [place] [address] Dr. Leesa Urbina EO # 0.4 103/ul Normal 0.0-0.[address] [facility] Comment on above: Performed By: #### C BC #### [facility] [address] [place] [address] Dr. Leesa Urbina Eosinophils/100 WBC (Bld) 5.6 % Normal 0.9-7.[address] [facility] Comment on above: Performed By: #### C BC #### [facility] [address] [place] [address] Dr. Leesa Urbina Erythrocyte distribution width (RBC) [Ratio] 13.4 % Normal 11.0-15.[address] [facility] Comment on above: Performed By: #### C BC #### [facility] [address] [place] [address] Dr. Leesa Urbina Hematocrit (Bld) [Volume fraction] 36.1 % Critically low 42.0-54.[address] [facility] Comment on above: Performed By: #### C BC #### [facility] [address] [place] [address] Dr. Leesa Urbina Hemoglobin (Bld) [Mass/Vol] 11.8 g/dL Critically low 14.0-18.[address] [facility] Comment on above: Performed By: #### C BC #### [facility] [address] [place] [address] Dr. Leesa Urbina IG # 0.02 10e3/ul Normal 0.00-0.[address] [facility] Comment on above: Performed By: #### C BC #### [facility] [address] [place] [address] Dr. Leesa Urbina IG % 0.3 % Normal 0.0-0.[address] [facility] Comment on above: Performed By: #### C BC #### [facility] [address] [place] [address] Dr. Leesa Urbina LYMPH # 1.8 103/ul Normal 1.2-3.[address] [facility] Comment on above: Performed By: #### C BC #### [facility] [address] [place] [address] Dr. Leesa Urbina Lymphocytes/100 WBC (Bld) 28.4 % Normal 20.5-60.[address] [facility] Comment on above: Performed By: #### C BC #### [facility] [address] [place] [address] Dr. Leesa Urbina MANUAL DIFF REQ NO Normal [facility] Comment on above: Performed By: #### C BC #### [facility] [address] [place] [address] Dr. Leesa Urbina MCH (RBC) [Entitic mass] 30.7 pg Normal 25.9-34.[address] [facility] Comment on above: Performed By: #### C BC #### [facility] [address] [place] [address] Dr. Leesa Urbina MCHC (RBC) [Mass/Vol] 32.7 g/dL Normal 29.9-35.[address] [facility] Comment on above: Performed By: #### C BC #### [facility] [address] [place] [address] Dr. Leesa Urbina MCV (RBC) [Entitic vol] 94.0 fL Normal 80.0-94.[address] [facility] Comment on above: Performed By: #### C BC #### [facility] [address] [place] [address] Dr. Leesa Urbina MONO # 0.5 103/ul Normal 0.3-0.[address] [facility] Comment on above: Performed By: #### C BC #### [facility] [address] [place] [address] Dr. Leesa Urbina Monocytes/100 WBC (Bld) 8.1 % Normal 1.7-12.[address] [facility] Comment on above: Performed By: #### C BC #### [facility] [address] [place] [address] Dr. Leesa Urbina NEUT # 3.5 103/ul Normal 1.4-6.5 [facility] Comment on above: Performed By: #### C BC #### [facility] [address] [address] [address] Leesa Urbina Neutrophils/100 WBC (Bld) 56.8 % Normal 43.0-75.[address] [facility] Comment on above: Performed By: #### C BC #### [facility] [address] [address] [address] Leesa Urbina Platelet mean volume (Bld) [Entitic vol] 10.3 fL Normal 9.5-13.[address] [facility] Comment on above: Performed By: #### C BC #### [facility] [address] [address] [address] Leesa Urbina PLT 179 103/ul Normal 150-[address] [facility] Comment on above: Performed By: #### C BC #### [facility] [address] [place] [address] Dr. Leesa Urbina RBC 3.84 106/ul Critically low 4.70-6.10 [facility] Comment on above: Performed By: #### C BC #### [facility] [address] [address] [address] Leesa Urbina WBC 6.2 103/ul Normal 4.0-11.[address] [facility] Comment on above: Performed By: #### C BC #### [facility] [address] [place] [address] Dr. Leesa Urbina GLYCOHEMOGLOBIN A1Con 2021 ADA RECOMMENDATION SEE BELOW Normal [place] [facility] Comment on above: Result Comment: ADA RECOMMENDED LIMIT 4.0 - 6.0 ADA THERAPEUTIC TARGET < 7.0 ACTION SUGGESTED > 7.0 Performed By: #### L IPID, TSH, CMP #### [facility] [address] [place] [address] Dr. Leesa Urbina Glucose [Mass/Vol] 151 mg/dL Normal [facility] Comment on above: Performed By: #### L IPID, TSH, CMP #### [facility] [address] [address] [address] Leesa Urbina HbA1c (Bld) [Mass fraction] 6.9 % Critically high 4.5-6.[address] [facility] Comment on above: Performed By: #### L IPID, TSH, CMP #### [facility] [address] [address] [address] Leesa Urbina LIPID PROFILEon 11-05-2021 CHOL-HDL RATIO NORM SEE BELOW Normal [facility] Comment on above: Result Comment: 3.3 - 4.4 LOW RISK 4.4 - 7.1 AVERAGE RISK 7.1 - 11.0 MODERATE RISK >11.0 HIGH RISK Performed By: #### L IPID, TSH, CMP #### [facility] [address] [address] [address] Leesa Urbina Cholesterol [Mass/Vol] 150 mg/dL Normal <=200 [facility] Comment on above: Performed By: #### L IPID, TSH, CMP #### [facility] [address] [address] [address] Leesa Urbina Cholesterol in HDL [Mass/Vol] 60 mg/dL Normal 40-[address] [facility] Comment on above: Performed By: #### L IPID, TSH, CMP #### [facility] [address] [address] [address] Leesa Urbina Cholesterol in LDL [Mass/Vol] 70.8 mg/dL Normal [facility] Comment on above: Performed By: #### L IPID, TSH, CMP #### [facility] [address] [address] [address] Leesa Urbina Cholesterol.total/Chol esterol in HDL [Mass ratio] 2.5 {ratio} Normal [facility] Comment on above: Performed By: #### L IPID, TSH, CMP #### [facility] [address] [address] [address] Leesa Urbina HDL NORMAL > or = 60 mg/dl - LOW CARDIOVASCULAR RISK <40 mg/dl - HIGH CARDIOVASCULAR RISK Normal [facility] Comment on above: Performed By: #### L IPID, TSH, CMP #### [facility] [address] [address] [address] Leesa Urbina LDL CALC NORMAL SEE BELOW Normal [facility] Comment on above: Result Comment: <100 mg/dl OPTIMAL 100 - 129 mg/dl NEAR OR ABOVE OPTIMAL 130 - 159 mg/dl BORDERLINE HIGH 160 - 189 mg/dl HIGH >190 mg/dl VERY HIGH Performed By: #### L IPID, TSH, CMP #### [facility] [address] [address] [address] Leesa Urbina Triglyceride [Mass/Vol] 96 mg/dL Normal <=[address] [facility] Comment on above: Performed By: #### L IPID, TSH, CMP #### [facility] [address] [address] [address] Leesa Urbina VLDL CALC 19.2 mg/dL Normal [facility] Comment on above: Performed By: #### L IPID, TSH, CMP #### [facility] [address] [address] [address] Leesa Urbina MICROALB CREAT RATIO RANDOMo n 11-05-2021 mALB <1.3 Normal <=30.[address] [facility] Comment on above: Performed By: #### L IPID, TSH, CMP #### [facility] [address] [address] [address] Leesa Urbina MALB CR RATIO 11.4 mg/g Normal 0.0-29.9 [facility] Comment on above: Performed By: #### L IPID, TSH, CMP #### [facility] [address] [address] [address] Leesa Urbina MALB CR RATIO RANGE SEE BELOW Normal [facility] Comment on above: Result Comment: NO M ICROALBUMINURIA 0-29 MG/G CLINICAL MICROALBUMINURIA 30-300 MG/G MACROALBUMINURIA >300 MG/G Performed By: #### L IPID, TSH, CMP #### [facility] [address] [address] [address] Leesa Urbina URINE CREAT 114.03 mg/dL Normal 20.00-300.00 [facility] Comment on above: Performed By: #### L IPID, TSH, CMP #### [facility] [address] [address] [address] Leesa Urbina PROF 14(COMP METB)on 022 Albumin [Mass/Vol] 2.3 g/dL Critically low 3.4-5.0 [facility] Comment on above: Performed By: #### L IPID, TSH, CMP #### [facility] [address] [address] [address] Leesa Urbina Albumin/Globulin [Mass ratio] 0.5 {ratio} Normal [facility] Comment on above: Performed By: #### L IPID, TSH, CMP #### [facility] [address] [address] [address] Leesa Urbina ALP [Catalytic activity/Vol] 77 U/L Normal 46-[address] [facility] Comment on above: Performed By: #### L IPID, TSH, CMP #### [facility] [address] [address] [address] Leesa Urbina ALT [Catalytic activity/Vol] 16 U/L Normal 16-[address] [facility] Comment on above: Performed By: #### L IPID, TSH, CMP #### [facility] [address] [address] [address] Leesa Urbina Anion gap [Moles/Vol] 13.8 mmol/L Normal [facility] Comment on above: Performed By: #### L IPID, TSH, CMP #### [facility] [address] [address] [address] Leesa Urbina AST [Catalytic activity/Vol] 15 U/L Normal 15-[address] [facility] Comment on above: Performed By: #### L IPID, TSH, CMP #### [facility] [address] [address] [address] Leesa Urbina Bilirubin [Mass/Vol] 0.5 mg/dL Normal 0.2-1.[address] [facility] Comment on above: Performed By: #### L IPID, TSH, CMP #### [facility] [address] [address] [address] Leesa Urbina Calcium [Mass/Vol] 8.7 mg/dL Normal 8.5-10.1 [facility] Comment on above: Performed By: #### L IPID, TSH, CMP #### [facility] [address] [address] [address] Leesa Urbina Chloride [Moles/Vol] 107 mmol/L Normal 98-[address] [facility] Comment on above: Performed By: #### L IPID, TSH, CMP #### [facility] [address] [address] [address] Leesa Urbina CO2 [Moles/Vol] 26.2 mmol/L Normal 21.0-32.0 [facility] Comment on above: Performed By: #### L IPID, TSH, CMP #### [facility] [address] [place] [address] Dr. Leesa Urbina Creatinine [Mass/Vol] 1.25 mg/dL Normal 0.70-1.[address] [facility] Comment on above: Performed By: #### L IPID, TSH, CMP #### [facility] [address] [place] [address] Dr. Leesa Urbina EGFR-AF DJIBOUTIAN >60 Normal >=60 [facility] Comment on above: Performed By: #### L IPID, TSH, CMP #### [facility] [address] [place] [address] Dr. Leesa Urbina EGFR-NON AF DJIBOUTIAN 55 mL/min/1.73m2 Critically low >=[address] [facility] Comment on above: Performed By: #### L IPID, TSH, CMP #### [facility] [address] [place] [address] Dr. Leesa Urbina Globulin (S) [Mass/Vol] 4.3 g/dL Normal [facility] Comment on above: Performed By: #### L IPID, TSH, CMP #### [facility] [address] [place] [address] Dr. Leesa Urbina Glucose [Mass/Vol] 137 mg/dL Critically high 74-106 [facility] Comment on above: Performed By: #### L IPID, TSH, CMP #### [facility] [address] [place] [address] Dr. Leesa Urbina Potassium [Moles/Vol] 4.0 mmol/L Normal 3.5-5.[address] [facility] Comment on above: Performed By: #### L IPID, TSH, CMP #### [facility] [address] [address] [address] Leesa Urbina Protein [Mass/Vol] 6.6 g/dL Normal 6.4-8.2 [facility] Comment on above: Performed By: #### L IPID, TSH, CMP #### [facility] [address] [address] [address] Leesa Urbina Sodium [Moles/Vol] 143 mmol/L Normal 136-145 [facility] Comment on above: Performed By: #### L IPID, TSH, CMP #### [facility] [address] [place] [address] Dr. Leesa Urbina Urea nitrogen [Mass/Vol] 24.0 mg/dL Critically high 7.0-18.[address] [facility] Comment on above: Performed By: #### L IPID, TSH, CMP #### [facility] [address] [place] [address] Dr. Leesa Urbina Urea nitrogen/Creatinine [Mass ratio] 19.2 mg/mg Normal [facility] Comment on above: Performed By: #### L IPID, TSH, CMP #### [facility] [address] [place] [address] Dr. Leesa Urbina TSHon 11-05-2021 TSH 0.996 uIU/mL Normal 0.358-3.740 [facility] Comment on above: Performed By: #### L IPID, TSH, CMP #### [facility] [address] [place] [address] Dr. Leesa Urbina Tobacco Screening.on 022 Adult depression screening assessment No [facility] [facility] DO Work Phone: Fall risk assessment a) No falls within the last year [facility] DO Work Phone: Tobacco use status CP b) No [facility] 250 DO Work Phone: Vital Signs Date Time Vital Sign Value Performing Clinician Facility 07-13-2023 08:34-0500 Body height 180.3 cm Dev Camp MD Work Phone: [facility] 07-13-2023 08:34-0500 Body mass index (BMI) [Ratio] 23.99 kg/m2 Dev Camp MD Work Phone: [facility] 07-13-2023 08:34-0500 Body weight 78.02 kg Dev Camp MD Work Phone: [facility] 07-13-2023 08:34-0500 Diastolic blood pressure 64 mm[Hg] Dev Camp MD Work Phone: [facility] 07-13-2023 08:34-0500 Heart rate 60 /min Dev Camp MD Work Phone: [facility] 07-13-2023 08:34-0500 Systolic blood pressure 108 mm[Hg] Dev Camp MD Work Phone: [facility] 11-17-2022 14:15-0400 Body height 180.34 cm Imad Asaad Other [employer] Other 11-17-2022 14:15-0400 Body mass index (BMI) [Ratio] 23.71 kg/m2 Imad Asaad Other [employer] Other 11-17-2022 14:15-0400 Body weight 77.11 kg Imad Asaad Other [employer] Other 11-17-2022 14:15-0400 Diastolic blood pressure 78 mm[Hg] Imad Asaad Other [employer] Other 11-17-2022 14:15-0400 Systolic blood pressure 127 mm[Hg] Imad Asaad Other [employer] Other 07-14-2022 09:08-0500 Body height 180.34 cm Gabriel Bello Work Phone: [facility] 250 DO Work Phone: 07-14-2022 09:08-0500 Body mass index (BMI) [Ratio] 24.13 kg/m2 Gabriel Bello Work Phone: [facility] 250 DO Work Phone: 07-14-2022 09:08-0500 Body surface area Derived from formula 1.98 m2 Gabriel Bello Work Phone: [facility] 250 DO Work Phone: 07-14-2022 09:08-0500 Body weight 78.47 kg Gabriel Bello Work Phone: [facility] 250 DO Work Phone: 07-14-2022 09:08-0500 Diastolic blood pressure 78 mm[Hg] Gabriel Bello Work Phone: [facility] DO Work Phone: 07-14-2022 09:08-0500 Heart rate 68 /min Gabriel Bello Work Phone: [facility] 250 DO Work Phone: 07-14-2022 09:08-0500 Systolic blood pressure 124 mm[Hg] Gabriel Bello Work Phone: [facility] 250 DO Work Phone: 07-03-2021 15:20-0500 Diastolic blood pressure 78 mm[Hg] Gabriel Bello Work Phone: [facility] 250 DO Work Phone: 07-03-2021 15:20-0500 Heart rate 65 /min Gabriel Downingman Work Phone: [facility] 250 DO Work Phone: 07-03-2021 15:20-0500 Systolic blood pressure 136 mm[Hg] Gabriel Bello Work Phone: [facility] DO Work Phone: 07-03-2021 15:17-0500 Body height 180.34 cm Gabriel Downingman Work Phone: [facility] 250 DO Work Phone: 07-03-2021 15:17-0500 Body mass index (BMI) [Ratio] 24.97 kg/m2 Gabriel Bello Work Phone: [facility] 250 DO Work Phone: 07-03-2021 15:17-0500 Body surface area Derived from formula 2.01 m2 Gabriel Bello Work Phone: [facility] 250 DO Work Phone: 07-03-2021 15:17-0500 Body weight 81.19 kg Gabriel Downingman Work Phone: [facility] 250 DO Work Phone: 07-03-2021 15:17-0500 Diastolic blood pressure 80 mm[Hg] Gabriel Downingman Work Phone: [facility] 250 DO Work Phone: 07-03-2021 15:17-0500 Systolic blood pressure 151 mm[Hg] Gabriel Bello Work Phone: [facility] DO Work Phone: Encounters Encounter Date Encounter Type Care Provider Facility Start: 01-13-2024 End: 01-13-2024 ambulatory [facility] Start: 01-11-2024 End: 01-11-2024 ambulatory GABRIEL Vargas ACE Not Available Start: 11-15-2023 End: 11-15-2023 ambulatory GABRIEL Vargas ACE Not Available Start: 10-26-2023 End: 10-26-2023 ambulatory LAURA A PUSHPA Not Available Start: 10-08-2023 End: 10-08-2023 ambulatory GABRIEL A ACE Not Available Start: 10-07-2023 End: 10-07-2023 ambulatory GABRIEL Vargas ACE Not Available Start: 10-07-2023 End: 10-07-2023 ambulatory GABRIEL Vargas ACE Not Available Start: 09-13-2023 End: 09-13-2023 ambulatory Miller Donald Facility:[facility] Start: 09-13-2023 End: 09-13-2023 ambulatory DO Gabrielclaire Bello Work Phone: [facility] Work Phone: Start: 09-13-2023 End: 09-13-2023 Patient encounter procedure DO Gabriel Bello Work Phone: [facility]-Pet Scan Work Phone: Start: 07-13-2023 End: 07-13-2023 Office outpatient visit 25 minutes Dev Camp MD Work Phone: [facility] Comment on above: Benign essential hyp ertension (Primary Dx); Mixed hyperlipidemia; Paroxysmal atrial fibrillation (CMS/HCC); Former smoker Start: 07-13-2023 End: 07-13-2023 ambulatory DEV CAMP [facility] Start: 05-26-2023 End: 05-26-2023 ambulatory CHRIS PATEL Not Available Start: 05-12-2023 End: 05-12-2023 ambulatory GABRIEL A ACE Not Available Start: 04-26-2023 End: 04-26-2023 ambulatory LAURA Vargas PUSHPA Not Available Start: 12-24-2022 End: 12-24-2022 ambulatory Imad Asaad Facility:[facility] Start: 11-26-2022 End: 11-26-2022 ambulatory Imad Asaad Facility:[facility] Start: 11-26-2022 End: 11-26-2022 ambulatory DO Gabriel Bello Work Phone: [facility] Work Phone: Start: 11-26-2022 End: 11-26-2022 Patient encounter procedure DO Gabriel Bello Work Phone: [facility]-CT [facility] [place] Work Phone: Start: 11-17-2022 End: 11-17-2022 ambulatory Imad Asaad Other [facility] [employer] Other Start: 11-17-2022 Office outpatient ne w 45 minutes Imad Asaad [facility] Start: 11-17-2022 Telephone encounter Imad Asaad [facility] Start: 09-03-2022 End: 09-04-[address] GABRIEL BELLO Facility:[facility] Start: 07-14-2022 Office outpatient visit 25 minutes Gabriel Bello Work Phone: [facility] 250 DO Work Phone: Start: 07-14-[address] Gabriel Kulkarni Facility:[id number] Start: 05-25-2022 End: 05-26-[address] GABRIEL BELLO Facility:[facility] Start: 05-06-2022 End: 05-07-[address] GABRIEL BELLO Facility:[facility] Start: 03-27-2022 Rx Renewal Gabriel mae Work Phone: [facility] 250 DO Work Phone: Start: 12-05-2021 End: 12-05-2021 Patient encounter procedure DO Gabriel Bello Work Phone: [facility]-Pre-Surgical Testing Start: 11-20-2021 End: 11-21-[address] DOCTOR BISHOP Facility:[facility] Start: 11-05-2021 End: 11-06-[address] GABRIEL BELLO Facility:[facility] Start: 02-10-2022 Office outpatient visit 25 minutes Gabriel Bello Work Phone: [facility] 250 DO Work Phone: Start: 03-05-2021 Rx Renewal Marina lozada MD Work Phone: [facility] 250 DO Work Phone: Start: 07-12-2020 End: 07-12-2020 Discharged Recurring Gabriel Ace [facility]-Covid Vaccine Procedures Date Procedure Procedure Detail Performing [...] #### [facility] [address] [place] [address] Dr. Leesa Urbina Start: 11-20-[address] DOCTOR BIHSOP Comment on above: Performed By: #### P SAD #### [facility] [address] [address] [address] Leesa Urbina Appendectomy Gabriel daniel Work Phone: Cataract surgery Gabriel morris Work Phone: Colonoscopy Gabriel Huynh n Work Phone: Comment on above: [id number] Jovanny Yu; Operation on lip Gabriel morris Work Phone: Prostatectomy Gabriel mae Work Phone: Plan of Treatment Date Care Activity Detail Author Start: 07-18-2024 End: 07-18-2024 Patient encounter procedure 07/18/2024 8:50 AM EST Office Visit [facility] [address] [place] [address] Dev aCmp MD [address] [place] [address] [facility] Start: 07-13-2023 FUV, Provider: Dev Camp, Status: Pen, Time: 8:50 AM FUV, Provider: Dev Camp, Status: Pen, Time: 8:50 AM [facility] 250 DO Work Phone: Start: 07-14-2022 FUV, Provider: Dev Camp, Status: Pen, Time: 9:10 AM FUV, Provider: Dev Camp, Status: Pen, Time: 9:10 AM [facility] 250 DO Work Phone: Start: 06-24-2021 FUV, Provider: Dev Camp, Status: Pen, Time: 10:15 AM FUV, Provider: Dev Camp, Status: Pen, Time: 10:15 AM [facility] DO Work Phone: Start: 1960 DTaP/Tdap/Td Vaccine s (1 - Tdap) DTaP/Tdap/Td Vaccines (1 - Tdap) [facility] Start: 1957 Urine screening for protein Diabetes: Urine Protein Screening [facility] Start: 1948 Diabetic foot examination Diabetes: Foot Exam [facility] Start: 1948 Glaucoma screening Diabetes: R etinopathy Screening [facility] Start: 1938 Hemoglobin A1c measurement Diabetes: Hemoglobin A1C [facility] Start: 1938 Lipid panel Lipid Panel [facility] Start: 1938 Medicare Annual Wellness Visit Medicare Annual Wellness Visit (AWV) [facility] HIV 1+2 Ab+HIV1 p24 Ag [Presence] in Serum or Plasma by Immunoassay [facility] Immunizations Immunization Date Immunization Notes Care Provider Fa cility 04-03-2022 Moderna COVID-19 Biv al Booster 50 MCG/0.5ML Intramuscular Suspension Gabriel Alicia Ace Work Phone: [facility] 250 DO Work Phone: 03-10-2022 Fluad Quadrivalent 0 .5 ML Intramuscular Prefilled Syringe Gabriel Alicia Ace Work Phone: [facility] 250 DO Work Phone: 12-19-2021 Moderna COVID-19 Vac cine 100 MCG/0.5ML Intramuscular Suspension Gabriel Alicia Ace Work Phone: [facility] 250 DO Work Phone: 03-20-2021 Moderna COVID-19 Vac cine 100 MCG/0.5ML Intramuscular Suspension Gabriel Alicia Ace Work Phone: [facility] 03-12-2021 influenza, high dose seasonal, preservative-free Gabriel A Ace Work Phone: [facility] 250 DO Work Phone: 02-26-2021 Fluzone High-Dose Quadrivalent 0.7 ML Intramuscular Suspension Prefilled Syringe Gabriel Alicia Ace Work Phone: [place] [address] DO Work Phone: 07-12-2020 COVID-19 mRNA-1273 (Moderna) [facility] 06-15-2020 COVID-19 mRNA-1273 (Moderna) [facility] 03-15-2020 Fluad Quadrivalent 0 .5 ML Intramuscular Prefilled Syringe Gabriel Alicia Ace Work Phone: [facility] 250 DO Work Phone: 02-24-2020 influenza, high dose seasonal, preservative-free Gabriel Downingman Work Phone: [place] [address] DO Work Phone: 03-11-2019 zoster vaccine recombinant Gabriel Bello Work Phone: [facility] DO Work Phone: 03-01-2019 influenza, high dose seasonal, preservative-free Gabriel A Ace Work Phone: [facility] DO Work Phone: 02-21-2019 influenza, high dose seasonal, preservative-free Gabriel A Ace Work Phone: [facility] 250 DO Work Phone: 12-22-2018 zoster vaccine recombinant Gabriel A Ace Work Phone: [facility] [employer] DO Work Phone: 02-25-2018 influenza, high dose seasonal, preservative-free Gabriel A Ace Work Phone: [facility] DO Work Phone: 03-16-2017 influenza, high dose seasonal, preservative-free Gabriel A Ace Work Phone: [facility] [employer] DO Work Phone: 05-24-2016 pneumococcal conjuga te vaccine, 13 valent Gabriel Bello Work Phone: [facility] 03-22-2015 influenza, high dose seasonal, preservative-free Gabriel A Ace Work Phone: [facility] 250 DO Work Phone: 05-24-2012 pneumococcal polysaccharide vaccine, 23 valent Gabriel Alicia Ace Work Phone: [facility] 05-31-2009 novel influenza-H1N1 -09, preservative-free, injectable Gabriel A Ace Work Phone: [facility] 250 DO Work Phone: Payers Date Payer Category Payer Medicare [id number] 2022 Self-pay [id number] 1959 Private Health Insurance [facility] [id number] 1938 Unknown [id number] 2.16. [id number] 1938 Unknown [id number] 2.16.84 0.1.080819.3.579.2.593 1938 Unknown [id number] 2.16.84 0.1.347403.3.579.2.593 1938 Unknown [id number] 2.16.84 0.1.043638.3.579.2.593 1938 Unknown [id number] 2.16.84 0.1.774216.3.579.2.593 1938 Unknown [id number] 2.16.84 0.1.474741.3.579.2.593 1938 Unknown [id number] 2.16.84 0.1.472172.3.579.2.1259 1938 Unknown [id number] 2.16.84 0.1.376180.3.579.2.1259 1938 Unknown [id number] 2.16.84 0.1.408686.3.579.2.1259 1938 Unknown [id number] 2.16.84 0.1.427658.3.579.2.1259 1938 Unknown [id number] 2.16.84 0.1.092333.3.579.2.1259 1938 Unknown [id number] 2.16.84 0.1.815383.3.579.2.1259 1938 Unknown [id number] 2.16.840 .1.089906.3.579.2.1259 1938 Unknown [id number] 2.16.840 .1.121669.3.579.2.1259 1938 Unknown [id number] 2.16.840 .1.838522.3.579.2.1259 1938 Unknown [id number] 2.16.8 40.1.920021.3.579.2.1244 1938 Unknown [id number] 2.16.8 40.1.089643.3.579.2.1244 Medicare Medicare [id number] Private Health Insurance Self Pay [facility] [id number] Unknown [employer] Unknown [id number] 2.16.8 40.1.744011.3.579.2.531 Unknown [id number] 2.16.8 40.1.403895.3.579.2.531 Unknown [id number] 2.16.8 40.1.819683.3.579.2.531 Social History Date Type Detail Facility Tobacco smoking status [facility] Unknown if ever smoked [facility] Start: 1940 Sex Assigned At Male F [facility] Start: 07-13-2023 Never a smoker Never a smoker -Nor [facility] DO Work Phone: Comment on above: 2-3 drinks a month; Start: 12-05-2021 End: 12-24-2022 Tobacco smoking status WVIS Ex-smoker (finding) [facility] Start: 07-13-2023 Sex Assigned At N [facility] [employer] Other End: 05-24-1989 History of tobacco use Current smoker [facility] Work Phone: End: 05-24-1989 History of tobacco use Cigarette Smoker [facility] Work Phone: Start: 07-13-2023 Tobacco use and exposure Smokeless tobacco non-user [facility] Work Phone: Start: 07-13-2023 Alcohol intake Lifetime non-d joe (finding) [facility] Work Phone: Start: 1940 [facility] Start: 07-03-2023 End: 07-13-2023 Exposure to SARS-CoV-2 (event) Not sure [facility] Goals Date Patient Goal Desired [...] by mouth once daily., Disp: , Rfl: [id number] ([employer]) 24,000-76,000 -120,000 unit capsule, Take 1 [...] discussion and plan. documented in this encounter [facility] Work Phone: Instructions 07-13-2023 Patient Instructions Note Date & Type Note Facility 07-13-2023 Instructions Domiinck Suazo MA - 07/13/2023 8:50 AM EST [...] of your visit. documented in this encounter [facility] Work Phone: Evaluation note 11-17-2022 Note Date & Type Note Facility 11-17-2022 Evaluation note Encounter Date Diagnosis Assessment Notes Oct, Change in bowel habits (ICD-10 - R19.4) Oct, Diverticulosis (ICD-10 - K57.90) Oct, IBS (irritable bowel syndrome) (ICD-10 - K58.9) Oct, Pancreatic insufficiency (ICD-10 - K86.89) [facility] [employer] Other History of Present illness Narrative 07-14-2022 [...] and we suggest follow-up next year -[facility] DO Work Phone: Evaluation note Note Date & Type Note Facility Evaluation note No assessment information [facility] Work Phone: Evaluation note Note Date & Type Note Facility Evaluation note No Information [facility] [employer] Other Evaluation note Note Date & Type Note Facility Evaluation note Diagnosis Benign essential hypertension- Primary Essential hypertension, benign Mixed hyperlipidemia Paroxysmal atrial fibrillation (CMS/HCC) Atrial fibrillation Former smoker Personal history of tobacco use, presenting hazards to health documented in this encounter [facility] Work Phone: History general Narrative - Reported Note Date & Type Note Facility History general Narrative - Reported Type Medical History diabetes mallitus Medical History high blood pressure Medical History appendectomy Medical History Palpitations Medical History Malignant neoplasm of prostate Medical History Irritable bowel syndrome Medical History Diabetes mellitus [facility] mention of complication, type II or unspecified [...] History Right cataract surge ry per in [place], [place]. 10-28-17 Surgical History Mohs repair / left upper lip Hospitalization History see above [facility] Other History of Present illness Narrative Note [...] continued therapy as before without change. -[facility] DO Work Phone: Advance Directives No Advanced [...] Specialty Diagnoses / Procedures Referred By Katie t Referred To Contact Diagnoses Paroxysmal atrial fibrillation (CMS/HCC) Procedures ECG 12 Lead Dev Camp MD [address] [place] [address] [address] [place] [address] Referral ID Status Reason Start Date Expiration Date V isits Requested Visits Authorized [id number] Authorized 07/13/2023 07/12/2024 1 1 Specialty Diagnoses / Procedures Referred By Contac t Referred To Contact Cardiology Diagnoses Paroxysmal atrial fibrillation (CMS/HCC) Procedures Follow Up In Cardiology Dev Camp MD [address] [place] [address] [address] [place] [address] Dev Camp MD [address] [place] [address] [address], [address] [place] [address] Referral ID Status Reason Start Date Expiration Date V isits Requested Visits Authorized [id number] Authorized 07/13/2023 07/12/2024 1 1 Additional Source [...] Active Jj Garcia MD Attending Provider Active Refurbish Technician Relationship Specialty Start Date End Date Gabriel Bello DO [address] [place] [address] PCP - General 05/24/99 Team Status: Inactive [...] section and content) DATE CREATED AUTHOR 07/15/2022 [facility] DATE CREATED AUTHOR AUTHOR'S ORGANIZ ATION 07/15/2022 [employer] DATE CREATED AUTHOR AUTHOR'S ORGANIZ ATION 09/10/2022 [facility] DATE CREATED AUTHOR AUTHOR'S ORGANIZ ATION 09/18/2023 [facility] DATE CREATED AUTHOR AUTHOR'S ORGANIZ ATION 01/12/2024 [facility] EPIC DATE CREATED AUTHOR AUTHOR'S ORGANIZ ATION 01/15/2024 [facility] REASON FOR VISIT (unrecogniz ed section and content) Reason Comments Annual Exam Specialty Diagnoses / Procedures Referred By Contac t Referred To Contact Diagnoses Paroxysmal atrial fibrillation ([facility] Procedures ECG 12 Lead Dev Camp MD [address] [facility] [address], [place] [address] Referral ID Status Reason Start Date Expiration Date V isits Requested Visits Authorized [id number] Authorized 07/13/2023 07/12/2024 1 1 FOR RECORDS [...] BE BASED ON THE PRIMARY CLINICAL RECORDS. [employer] provides no warranty or guarantee of the accuracy or completeness of information in this document.
[2024-02-03 08:15] LABS: BUN Creatinine Ratio 14.4; Calcium 8.3 mg/dL (8.5-10.1); Chloride 107 mmol/L (98-107); Estimated GFR (African America >60 (>=60); Estimated GFR (Non-African Ame >60 (>=60); Glucose 164 mg/dL (74-106); Sodium 143 mmol/L (136-145)
[2024-02-03 08:28] LABS: Anion Gap 11.7; Carbon Dioxide 28.3 mmol/L (21.0-32.0)
== END 2024-02-03 07:23 | disposition home or self-care (01) ==
LOC: LAB 07:23
PROVIDERS: PCP Internal Medicine; Visit Provider Internal Medicine Interventional Cardiology
DX: I10 Essential (primary) hypertension (principal)
CPT/HCPCS: 36415; 80048

== ENCOUNTER 2024-02-28 07:43 | Outpatient (RCR) | payer MEDICARE, SELFPAY ==
[2024-02-28 13:58] VITALS: BP 174/80; PULSE 90; TEMP 36.4; O2SAT 98
[2024-02-28] MEDS: DENOSUMAB 120 MG/1.7 ML VIAL SQ (14:15)
== END 2024-03-23 23:59 | disposition home or self-care (01) ==
LOC: INF 07:43
PROVIDERS: PCP Internal Medicine
DX: C61 Malignant neoplasm of prostate (principal); C79.51 Secondary malignant neoplasm of bone
CPT/HCPCS: 96372; J0897

== ENCOUNTER 2024-03-08 22:52 | Emergency (ER) | payer MEDICARE, SELFPAY ==
--- OUTSIDE RECORDS SUMMARY | 2024-03-08 22:58 | XMS_ITS | CCD ---
Author Organization [facility]ini[facility] Care Team Providers Care Car Unloader Name Role Phone Gabriel Bello Primary Care Provider [phone] Ryan Negron Attending Provider Gabriel Bello Unavailable [...] Attending Unavailable ACE, DR RIOS Consulting Unavailable AEC, DR RIOS Admitting Unavailable ACE, DR RIOS Attending Unavailable ACE, DR RIOS Consulting Unavailable DR GABRIEL BELLO Primary Care Unavailable Jj Garcia Unavailable DO Gabriel Bello Primary Care Provider [phone] MD Jj Garcia Attending Provider Gabriel Bello [...] Unavailable GABRIEL BELLO Primary Care Unavailable ASHLEY KHOURY Attending Unavailable GABRIEL BELLO Primary Care Unavailable KHOURYAALIYAH JENNINGSTHA Referring Unavailable GABRIEL BELLO A Primary Care Unavailable RADHA KHOURYA Referring Unavailable GABRIEL BELLO A Primary Care Unavailable KHOURYAALIYAH JENNINGSTHA Referring Unavailable GABRIEL BELLO A Primary Care Unavailable Unavailable Unavailable Unavailable Allergies Allergy Classification Reported Allergen(s) Allergy Type Date of Onset Reaction(s) Facility (4 sources) Sulfonamides (Antibiotic); Translations: [Sulfa Drugs] Allergy to drug (finding) [place] [address] DO Work Phone: (6 sources) Sulfonamides (Antibiotic); Translations: [Sulfa (Sulfonamide Antibiotics)] Allergy to substance 2 [facility] [place] (1 source) Sulfonamides (Antibiotic) Drug allergy (disorder) [facility] Repository (2 sources) Substance with sulfonamide structure and antibacterial mechanism of action (substance) Drug allergy Unknown [facility] Fiber Options Other (2 sources) abiraterone; Translations: [ABIRATERONE] Drug Allergy 4 [facility] 3 Repository Medications Current Medications Medication Drug Class(es) Dates Sig (Normalized) Sig (Original) amylase 783836 unt / lipase 54353 unt / protease 94369 unt delayed release oral capsule (3 sources) Start: 11-17-2022 take 1 capsule by mouth three times daily at mealtime ewcpzk-abhpuvzh-ga ylase (Creon) 24,000-76,000 -120,000 unit capsule Take 1 capsule by mouth 3 times a day with meals. 0 11/17/2022 Active Start: 11-17-2022 Creon 12917-47 000 UNIT 1 with each meal Orally [...] December 05, 2021 12:00am polyethylene glycol 3350 377319 mg / potassium chloride 2970 mg / sodium bicarbonate 6740 mg / sodium chloride 5860 mg / sodium sulfate 60382 mg powder for oral solution (2 sources) [...] mouth see administration instructions. 0 Active Vit C,D-Kl-Sxngv-Lutein -Zeaxan (Preservision Areds-2) 250-90-40-1 mg Capsule (3 sources) Start: 12-05-2021 Vit C,N-Ze-Pkwoi-Lutein- Zeaxan (Preservision Areds-2) 250-90-40-1 mg Capsule Active 1 TAB PO Every morning December 05, 2021 12:47pm Start: 12-05-2021 Vit C,E-Zn-Bridge Instructor vy-Kbdgmr-Ntwbel (Preservision Areds-2) 250-90-40-1 mg Capsule Active 1 [...] ascorbic acid 226 mg / beta carotene 60950 unt / cuprous oxide 0.8 mg / [...] Onset: 2 07-13-2023 Chronic Heart valve disorders (4 sources) Nonrheumatic mitral (valve) insufficiency; Translations: [Nonrheumatic mitral (valve) insufficiency] Onset: 4 Chronic Miscellaneous mental health disorders (2 sources) Acute insomnia; Translations: [Adjustment insomnia] Episodic Mood disorders (2 sources) Major depressive disorder, single episode, unspecified; Translations: [Depression] Chronic Other aftercare (6 sources) Drug therapy finding; Translations: [Long-term (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 of anticoagulants] Episodic Other aftercare (3 sources) Other 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; Translations: [OTH DROP WIRE ALINER CURRENT DRUG THERAPY] Onset: 2 Episodic Other aftercare (2 sources) 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 continuous churn (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 of anticoagulants; Translations: [shelter (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 of anticoagulants] Onset: 4 Episodic [...] conditions (not mental disorders or infectious disease) (4 sources) Abnormal electrocardiogram [ECG] [EKG]; Translations: [Abnormal [...] Test Name Value Interpretation Reference Range Facility TRANSTHORACIC ECHO (TTE) COM PLETEon 02-21-2024 TRANSTHORACIC ECHO (TTE) COMPLETE [address], [address] [address] TRANSTHORACIC ECHOCARDIOGRAM REPORT Patient Name: DEV Kim Physician: [id number] Marina Goldsmith MD Study Date: 02/21/2024 Ordering Provider: [id number] ASHLEY KHOURY MRN/PID: [id number] Fellow: Nurse: Date of /Age: 1 1940 / 83 years Vp Clinical: Jyoti Gutiérrez RD, T Gender: M Additional Staff: Height: 180.34 cm Admit Date: Weight: 77.11 kg Admission Status: BSA / BMI: 1.97 m2 / 23.71 kg/m2 Department Location: [facility] Blood Pressure: 142 /84 mmHg Study Type: TRANSTHORACIC ECHO (TTE) COMPLETE Diagnosis/ICD: 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; Paroxysmal atrial fibrillation-I48.0 Indication: Diabetes, HTN, Hyperlipidemia, Murmur, Former Smoker, Prostate Cancer with Metastases, CKD-Stage III CPT Codes: Echo Complete w Full Doppler-[id number] Study Detail: The following Echo studies were performed: 2D, M-Mode, Doppler and color flow. PHYSICIAN INTERPRETATION: Left Ventricle: The left ventricular systolic function is normal, with a visually estimated ejection fraction of 60%. There are no regional wall motion abnormalities. The left ventricular cavity size is normal. Spectral Doppler shows an impaired relaxation pattern of left ventricular diastolic filling. Left Atrium: The left atrium is normal in size. Right Ventricle: The right ventricle is normal in size. There is normal right ventricular global systolic function. Right Atrium: The right atrium is normal in size. Aortic Valve: The aortic valve is trileaflet. There is mild aortic valve cusp calcification. The aortic valve dimensionless index is 0.68. There is mild aortic valve regurgitation. The peak instantaneous gradient of the aortic valve is 4.8 mmHg. The mean gradient of the aortic valve is 2.0 mmHg. Mitral Valve: The mitral valve is normal in structure. There is mild to moderate mitral annular calcification. There is mild to moderate mitral valve regurgitation. Tricuspid Valve: The tricuspid valve is structurally normal. There is trace tricuspid regurgitation. The Doppler estimated RVSP is within normal limits at 29.4 mmHg. Pulmonic Valve: The pulmonic valve is structurally normal. There is no indication of pulmonic valve regurgitation. Pericardium: No pericardial effusion noted. Aorta: The aortic root is normal. Pulmonary Artery: The Doppler estimated pulmonary artery diastolic pressure is 20.3 mmHg. CONCLUSIONS: 1. The left ventricular systolic function is normal, with a visually estimated ejection fraction of 60%. 2. Spectral Doppler shows an impaired relaxation pattern of left ventricular diastolic filling. 3. There is normal right ventricular global systolic function. 4. Mild to moderate mitral valve regurgitation. 5. Right ventricular within normal limits. 6. Mild aortic valve regurgitation. 7. No previous study available for comparison. QUANTITATIVE DATA SUMMARY: 2D MEASUREMENTS: Normal Ranges: Ao Root d: 3.10 cm (2.0-3.7cm) LAs: 3.70 cm (2.7-4.0cm) RVIDd: 2.97 cm (0.9-3.6cm) IVSd: 1.14 cm (0.6-1.1cm) LVPWd: 0.93 cm (0.6-1.1cm) LVIDd: 4.95 cm (3.9-5.9cm) LVIDs: 3.63 cm LV Mass Index: 95.2 g/m2 LV % FS 26.7 % LV SYSTOLIC FUNCTION BY 2D PLANIMETRY (MOD): Normal Ranges: EF-A4C View: 68 % (>=55%) EF-Visual: 60 % LV EF Reported: 60 % LV DIASTOLIC FUNCTION: Normal Ranges: MV Peak E: 0.53 m/s (0.7-1.2 m/s) MV Peak A: 0.91 m/s (0.42-0.7 m/s) E/A Ratio: 0.58 (1.0-2.2) MV e' 0.067 m/s (>8.0) MV lateral e' 0.08 m/s MV medial e' 0.06 m/s E/e' Ratio: 7.91 (<8.0) MITRAL VALVE: Normal Ranges: MV Vmax: 0.96 m/s (<=1.3m/s) MV peak P.7 mmHg (<5mmHg) MV mean P.0 mmHg (<48mmHg) MITRAL INSUFFICIENCY: Normal Ranges: MR Vmax: 573.00 cm/s AORTIC VALVE: Normal Ranges: AoV Vmax: 1.10 m/s (<=1.7m/s) AoV Peak P.8 mmHg (<20mmHg) AoV Mean P.0 mmHg (1.7-11.5mmHg) LVOT Max Patricio: 0.90 m/s (<=1.1m/s) AoV VTI: 25.00 cm (18-25cm) LVOT VTI: 17.00 cm LVOT Diameter: 2.60 cm (1.8-2.4cm) AoV Area, VTI: 3.61 cm2 (2.5-5.5cm2) AoV Area,Vmax: 4.33 cm2 (2.5-4.5cm2) AoV Dimensionless Index: 0.68 AORTIC INSUFFICIENCY: AI Vmax: 2.10 m/s AI Half-time: 349 msec AI Decel Rate: 177.00 cm/s2 TRICUSPID VALVE/RVSP: Normal Ranges: Peak TR Velocity: 2.57 m/s RV Syst Pressure: 29 mmHg (< 30mmHg) PULMONIC VALVE: Normal Ranges: PV Max Patricio: 0.6 m/s (0.6-0.9m/s) PV Max P.5 mmHg PIEDV: 2.08 m/s PADP: 20.3 mmHg [id number] Marina Goldsmith MD Electronically signed on 02/21/2024 at 2:06:09 PM Final [facility] NUCLEAR STRESS TESTon 2023 NUCLEAR STRESS TEST Interpreted By: Clarissa Sanchez and Giannuzzi Michael STUDY: MYOCARDIAL PERFUSION STRESS TEST WITH EXERCISE Performing facility: [facility], [address] [place] [address], [address], [place] [address] [facility] Provider: Ashley Khoury MD, FACC PCP: Dr. Trang Bello Supervising provider: Marina Goldsmith MD INDICATION: Abnormal EKG; PVC Murmur HISTORY: Gender: M; Age: 83 y/o ; Height: HT 180.3 cm cm; Weight: WT 77.111 kg kg. Abnormal EKG; High Cholesterol; Diabetes; HTN; Arrhythmias; A-fib Quit smoking 34 years ago. COMPARISON: Previous nuclear testing completed [id number] [facility]. ACCESSION NUMBER(S): [id number] ORDERING CLINICIAN: ASHLEY KHOURY TECHNIQUE: ONE DAY protocol. Stress injection: Date:02-07-24, 33.5 mCi of Myoview IV at peak exercise. Rest injection: Date: 02-07-24, 11.2 mCi of Myoview IV at rest. Imaging was performed by gated tomographic technique. STRESS TEST DATA: Resting heart rate was 66 BPM. Resting blood pressure was 138/86 mmHg. The patient exercised using a Caden exercise protocol. 5:32 minutes exercised. 100 % of MPHR achieved for age. 7.00 METS achieved. Maximum heart rate was 136 BPM. Maximum blood pressure was 166/78 mmHg. DTS N/A. TEST TERMINATED DUE TO: Protocol completed. FINDINGS: STRESS TEST RESULTS: Resting electrocardiogram revealed normal sinus rhythm. The patient had no significant ECG changes with maximal stress. The patient did not have chest pains/symptoms during the procedure. There was a normal recovery phase. There were frequent PVCs and ventricular couplets during exercise IMAGING RESULTS: Image quality was good. Rest and stress tomographic images were reviewed and revealed normal perfusion without evidence of ischemia, myocardial infarction, or left ventricular dilatation with stress. Overall left ventricular systolic function appeared to be normal without regional wall motion abnormalities. LV ejection fraction was 67 %. TID is 0.88 and is normal. There was no evidence of attenuation artifact. IMPRESSION: Normal exercise Myoview cardiac perfusion stress test. No evidence of ischemia or myocardial infarction by perfusion imaging. Normal left ventricular systolic function, ejection fraction 67%. No exercise provoked significant ischemic ECG changes or chest pain symptoms. When compared to a study from 2009, no significant interval changes are seen. Signed by: Clarissa Sanchez 02/07/2024 4:47 PM Dictation workstation: [id number] [facility] Comment on above: Order Comment: Start with exercise, may switch to alfonso PET psma initial tx sb-mton 09-13-2023 PET psma initial tx sb-mt [facility] Main [place] [address] [place] [address] Nuclear Medicine Report Signed Patient: Dev Walsh MR#: [id number] 906 : 1940 Acct:[id number] Age/Sex: 83 / M ADM Date: 09/13/23 Loc: Room: Type: [facility] Attending Dr: SYLWIA STAFF Copies to: NON STAFF Jordan Stoyr II, MD Ordering Provider: SYLWIA STAFF Date [...] Jordan Story M.D.09/13/2023 3:20 PM Dictation Location: RADIO-PC- Transcribed By: PWS 09/13/23 152 Dictated By: Jordan Story II, MD 09/13/23 1515 Signed By: 09/13/23 152 Normal [facility] ECG 12 Leadon 07-13-2023 Sinus rhythm with frequent PVCs Otherwise normal EKG QTc 444 ms [facility] Work Phone: Joni 12-24-2022 L - -------- Specimen: [id number] Received: 12/24/22 Status: DEONDRE Cunninghamdia Num: [id number] Spec Type: Surgical Subm Dr: Jj Garcia MD Tissues: A Colon Biopsy (RANDOM COLON) B Colon Biopsy (ASCENDING POLYP) Procedures: HEATHER/Lizett Alexander/Saurabh L4/2 -------- Age/ Patient Sex Location Account Attending Physician -------- Dev Walsh 82/M [id number] Jj Garcia MD -------- SPEC NUM: [id number] RECD: 12/24/22 STATUS: DEONDRE MAC NUM: [id number] JARRET: 12/24/22- [facility] DR: Jj Garcia MD ENTERED: 12/24/[address] [facility] [address]: SPEC TYPE: Surgical DEPT: S ORDERED: [...] Entirely submitted in one cassette labeled B1. -------- Specimen: [id number] Received: 12/24/22 Status: ALEXABrendon Lewis Num: [id number] Spec Type: Surgical Subm Dr: Jj Garcia MD Tissues: A Colon Biopsy (RANDOM COLON) B Colon Biopsy (ASCENDING POLYP) Procedures: HE/4, Gross/Micro L4/2 -------- Patient: Dev Walsh [id number] (Continued) -------- Specimen: [id number] Received: 12/24/22 (Continued) Signed (signature on file) Natan Davidson MD 12/29/22 1658 -------- Specimen: [id number] Received: 12/24/22 Status: DEONDRE Lewis Num: [id number] Spec Type: Surgical Subm Dr: Jj Garcia MD Tissues: A Colon Biopsy (RANDOM COLON) B Colon Biopsy (ASCENDING POLYP) Procedures: HEATHER/Catherine, Lizett/Saurabh L4/2 -------- Patient: Dev Walsh [id number] (Continued) -------- Specimen: [id number] Received: 12/24/22 (Continued) Microscopic Description A. Two H E slides reviewed. The microscopic examination confirms the diagnosis. B. Two H E slides reviewed. The microscopic examination confirms the diagnosis. CPT Codes 38344n4 -------- -------- Specimen: [id number] Received: 12/24/22 Status: DEONDRE Lewis Num: [id number] Spec Type: Surgical Subm Dr: Jj Garcia MD Tissues: A Colon Biopsy (RANDOM COLON) B Colon Biopsy (ASCENDING POLYP) Procedures: HE/4, Gross/Micro L4/2 -------- Patient: Dev Walsh [id number] (Continued) -------- Signed (signature on file) Natan Davidson MD 12/29/22 1658 Normal [facility] Blood Urea Nitrogenon 2022 Urea nitrogen [Mass/Vol] 31 mg/dL High 7-25 [facility] Comment on above: Order Comment: Reaso n for Exam Change in bowel habits Performed By: #### T SH3, BUN, CREAT #### [address] C reactive protein [Mass/vol ume] in Serum or PlasmaOrdered By: Jj Garcia on 11-26-2022 CRP [Mass/Vol] < 0.5 mg/dL 0.0-0.5 [facility] C-Reactive Proteinon 023 CRP [Mass/Vol] mg/L Normal 0.0-0.5 [facility] Comment on above: Order Comment: Reaso n for Exam Change in bowel habits Result Comment: PERF ORMED BY: [place] [address] PATHOLOGIST [employer]BER WILMA MANTILLA M.D. Performed By: #### C RP, ESR #### [facility] [address] [place] [address] [place] #### HIV SCREEN #### [facility] , CT abdomen pelvis w conon CT abdomen pelvis w con [facility] Main [place] [address] [place] [address] CT Scan Report Signed Patient: Dev Walsh MR#: [id number] 906 : 1940 Acct:[id number] Age/Sex: 82 / M ADM Date: 11/26/22 Loc: CT Room: Type: [facility] Attending Dr: Jj Garcia MD Copies [...] unremarkable. Small bowel appears nondilated. Sigmoid diverticulosis.[ Pelvis:[Prostatectomy changes. Urinary bladder is grossly unremarkable.] Streak artifact from a penile appliance is seen. Peritoneum/Retroperit oneum:No free air, free fluid or lymphadenopathy.[ Abd wall/Bones:Abdominal wall[demonstrates no acute findings. Osseous structures demonstrate degenerative change. CT/CT abdomen pelvis w con IMPRESSION: No acute findings. No suspicious pancreatic lesion is seen. Impression dictated by: Jered Mandujano Jr., D.O.11/26/2022 7:19 PM Dictation Location: [place] [address] Transcribed By: [facility] 11/26/221918 Dictated By: Jered Mandujano Jr, DO 11/26/221906 Signed By: 11/26/221918 Normal [facility] Creatinineon 11-26-2022 Creatinine [Mass/Vol] 1.55 mg/dL High 0.70-1.30 [facility] Comment on above: Order Comment: Reaso n for Exam Change in bowel habits Performed By: #### T SH3, BUN, CREAT #### [facility] [address] [place] [address] GFR/1.73 sq M.predicted MDRD (S/P/Bld) [Vol rate/Area] 43.863 mL/min/{1.73_m2} Normal [facility] Comment on above: Order Comment: Reaso n for Exam Change in bowel habits Performed By: #### T SH3, BUN, CREAT #### [address] Creatinine [Mass/volume] in Serum or PlasmaOrdered By: Gabriel Bello on 11-26-2022 Creatinine [Mass/Vol] 1.55 mg/dL 0.70-1.30 [facility] Erythrocyte Sedimentation Ra juli 11-26-2022 ESR (Bld) [Velocity] 18 mm/h Normal 0-19 [facility] Comment on above: Order Comment: Reaso n for Exam Change in bowel habits Result Comment: PERF ORMED BY: [place] [address] PATHOLOGIST [employer]BER WILMA MANTILLA M.D. Performed By: #### C RP, ESR #### [address] #### HIV SCREEN #### [facility] , Erythrocyte sedimentation ra te by Photometric methodOrdered By: Jj Garcia on 11-26-2022 ESR Photometric method (Bld) [Velocity] 18 mm/hr 0-19 [facility] HIV 1/O/2 Antigen/Antibodyon 11-26-2022 HIV Screen 4th Generation Non-Reactive Normal Non Reactive [facility] Comment on above: Order Comment: Reaso n for Exam Change in bowel habits Result Comment: HIV Negative HIV-1/HIV-2 antibodies and HIV-1 p24 antigen were NOT detected. There is no laboratory evidence of HIV infection. Performed at: - [facility] [id number] [facility] Chemist: Miguel Cullen PhD, Phone: [phone] PERFORMED BY: [place] [address] PATHOLOGIST [employer] MEMBER WILMA MANTILLA M.D. Performed By: #### C RP, ESR #### [address] [place] [address] [place] #### HIV SCREEN #### [facility] , No Panel InformationOrdered By: Gabriel Bello on 11-26-2022 Estimated GFR (CKD-EPI) 43.863 mL/Min [facility] Creatinine Clearance (Chem N/A [facility] Thyroid Stimulating Hormoneo n 11-26-2022 TSH Qn 1.23 m[IU]/L Normal 0.45-5.33 [facility] Comment on above: Order Comment: Reaso n for Exam Change in bowel habits Result Comment: PERF ORMED BY: [place] [address] PATHOLOGIST [employer]BER WILMA MANTILLA M.D. Performed By: #### T SH3, BUN, CREAT #### [facility] [address] [place] [address] Thyrotropin [Units/volume] i n Serum or PlasmaOrdered By: Jj Garcia on 11-26-2022 TSH Qn 1.23 m[IU]/L 0.45-5.33 [facility] Urea nitrogen [Mass/volume] in Serum or PlasmaOrdered By: Gabriel Bello on 11-26-2022 Urea nitrogen [Mass/Vol] 31 mg/dL 12-15 [facility] PANCREATIC ELASTASE FECALon 09-08-2022 Pancreatic Elastase, Fecal 86 ug Elast./g Critically low >200 [facility] Comment on above: Result Comment: Re sults verified by repeat testing Severe Pancreatic Insufficiency: <100 Moderate Pancreatic Insufficiency: 100 - 200 Normal: >200 Performed By: #### L IPID, TSH, CMP #### [facility] [address] [place] [address] [address] Leesa Urbina CELIAC ANTIBODIES PROFILEon 09-04-2022 Deamidated Gliadin Abs, IgA 8 units Normal 0-19 [facility] Comment on above: Result Comment: Nega tive 0 - 19 Weak Positive 20 - 30 Moderate to Strong Positive >30 Performed By: #### C ELIACP #### [facility] [address] [place] [address] [address] Leesa Urbina Deamidated Gliadin Abs, IgG 4 units Normal 0-19 [facility] Comment on above: Result Comment: Nega tive 0 - 19 Weak Positive 20 - 30 Moderate to Strong Positive >30 Performed By: #### C ELIACP #### [facility] [address] [place] [address] Dr. Leesa Urbina Endomysial Antibody IgA Negative Normal Negative [facility] Comment on above: Performed By: #### C ELIACP #### [facility] [address] [place] [address] [address] Leesa Urbina Immunoglobulin A, Qn, Serum 143 mg/dL Normal 61-437 [facility] Comment on above: Performed By: #### C ELIACP #### [facility] [address] [place] [address] Dr. Leesa Urbina t-Transglutaminase (tTG) IgA <2 Normal 0-3 [facility] Comment on above: Result Comment: Nega tive 0 - 3 Weak Positive 4 - 10 Positive >10 . Tissue Transglutaminase (tTG) has been identified as the endomysial antigen. Studies have demonstr- ated that endomysial IgA antibodies have over 99% specificity for gluten sensitive enteropathy. Performed By: #### C ELIACP #### [facility] [address] [place] [address] Dr. Leesa Urbina t-Transglutaminase (tTG) IgG 6 U/mL Critically high 0-5 [facility] Comment on above: Result Comment: Nega tive 0 - 5 Weak Positive 6 - 9 Positive >9 Performed By: #### C ELIACP #### [facility] [address] [place] [address] Dr. Lesea Urbina CBC AUTO DIFFon 09-03-2022 BASO # 0.1 103/ul Normal 0.0-0.1 [facility] Comment on above: Performed By: #### L IPID, TSH, CMP #### [facility] [address] [place] [address] [address] Leesa Urbina Basophils/100 WBC (Bld) 1.1 % Normal 0.2-2.0 [facility] Comment on above: Performed By: #### L IPID, TSH, CMP #### [facility] [address] [place] [address] Dr. Leesa Urbina EO # 0.6 103/ul Normal 0.0-0.7 [facility] Comment on above: Performed By: #### L IPID, TSH, CMP #### [facility] [address] [place] [address] Dr. Leesa Urbina Eosinophils/100 WBC (Bld) 7.9 % Critically high 0.9-7.0 [facility] Comment on above: Performed By: #### L IPID, TSH, CMP #### [facility] [address] [place] [address] Dr. Leesa Urbina Erythrocyte distribution width (RBC) [Ratio] 13.6 % Normal 11.0-15.0 [facility] Comment on above: Performed By: #### L IPID, TSH, CMP #### [facility] [address] [place] [address] Dr. Leesa Urbina Hematocrit (Bld) [Volume fraction] 34.4 % Critically low 42.0-54.0 [facility] Comment on above: Performed By: #### L IPID, TSH, CMP #### [facility] [address] [place] [address] Dr. Leesa Urbina Hemoglobin (Bld) [Mass/Vol] 11.4 g/dL Critically low 14.0-18.0 [facility] Comment on above: Performed By: #### L IPID, TSH, CMP #### [facility] [address] [place] [address] Dr. Leesa Urbina IG # 0.02 10e3/ul Normal 0.00-0.03 [facility] Comment on above: Performed By: #### L IPID, TSH, CMP #### [facility] [address] [place] [address] Dr. Leesa Urbina IG % 0.3 % Normal 0.0-0.5 [facility] Comment on above: Performed By: #### L IPID, TSH, CMP #### [facility] [address] [place] [address] [address] Leesa Urbina LYMPH # 2.1 103/ul Normal 1.2-3.8 [facility] Comment on above: Performed By: #### L IPID, TSH, CMP #### [facility] [address] [place] [place] [address] [address] Leesa Urbina Lymphocytes/100 WBC (Bld) 28.1 % Normal 20.5-60.0 [facility] Comment on above: Performed By: #### L IPID, TSH, CMP #### [facility] [address] [place] [address] [address] Leesa Urbina MANUAL DIFF REQ NO Normal [facility] Comment on above: Performed By: #### L IPID, TSH, CMP #### [facility] [address] [place] [address] Dr. Leesa Urbina MCH (RBC) [Entitic mass] 31.1 pg Normal 25.9-34.0 [facility] [facility] Comment on above: Performed By: #### L IPID, TSH, CMP #### [facility] [address] [place] [address] Dr. Leesa Urbina MCHC (RBC) [Mass/Vol] 33.1 g/dL Normal 29.9-35.2 [facility] Comment on above: Performed By: #### L IPID, TSH, CMP #### [facility] [address] [place] [address] Dr. Leesa Urbina MCV (RBC) [Entitic vol] 93.7 fL Normal 80.0-94.0 [facility] Comment on above: Performed By: #### L IPID, TSH, CMP #### [facility] [address] [place] [address] Dr. Leesa Urbina MONO # 0.4 103/ul Normal 0.3-0.8 [facility] Comment on above: Performed By: #### L IPID, TSH, CMP #### [facility] [address] [place] [address] Dr. Leesa Urbina Monocytes/100 WBC (Bld) 6.0 % Normal 1.7-12.0 [facility] Comment on above: Performed By: #### L IPID, TSH, CMP #### [facility] [address] [address] [address] Leesa Urbina NEUT # 4.2 103/ul Normal 1.4-6.5 [facility] Comment on above: Performed By: #### L IPID, TSH, CMP #### [facility] [address] [place] [address] Dr. Leesa Urbina Neutrophils/100 WBC (Bld) 56.6 % Normal 43.0-75.0 [facility] Comment on above: Performed By: #### L IPID, TSH, CMP #### [facility] [address] [place] [address] Dr. Leesa Urbina Platelet mean volume (Bld) [Entitic vol] 10.1 fL Normal 9.5-13.5 [facility] Comment on above: Performed By: #### L IPID, TSH, CMP #### [facility] [address] [place] [address] Dr. Leesa Urbina PLT 195 103/ul Normal 150-450 [facility] Comment on above: Performed By: #### L IPID, TSH, CMP #### [facility] [address] [place] [address] Dr. Leesa Urbina RBC 3.67 106/ul Critically low 4.70-6.10 [facility] Comment on above: Performed By: #### L IPID, TSH, CMP #### [facility] [address] [place] [address] Dr. Leesa Urbina WBC 7.3 103/ul Normal 4.0-11.0 [facility] Comment on above: Performed By: #### L IPID, TSH, CMP #### [facility] [address] [place] [address] Dr. Leesa Urbina FERRITINon 09-03-2022 Ferritin [Mass/Vol] 44.0 ng/mL Normal 26.0-388.0 [facility] Comment on above: Performed By: #### F ERR, FETIBC #### [facility] [address] [place], [place] [id number] Dr. Leesa Urbina IRON AND TIBCon 09-03-2022 % SATURATION 23.5 % Normal [facility] Comment on above: Performed By: #### F ERR, FETIBC #### [facility] [address] [address] [address] Leesa Urbina Iron [Mass/Vol] 69.0 ug/dL Normal 65.0-175.0 [facility] Comment on above: Performed By: #### F ERR, FETIBC #### [facility] [address] [address] [address] Leesa Urbina TIBC DIRECT 294.0 ug/dL Normal 250.0-450.0 [facility] Comment on above: Performed By: #### F ERR, FETIBC #### [facility] [address] [address] [address] Leesa Urbina Office Visit (Cardiology)on 07-14-2022 Follow-up visit Diagnoses/Problems Assessed Anticoagulated (V58.61) (Z79.01) Benign essential hypertension (401.1) (I10) Hyperlipidemia (272.4) (E78.5) Paroxysmal atrial fibrillation (427.31) (I48.0) Diabetes mellitus (250.00) (E11.9) Body mass index (BMI) of 24.0 to 24.9 in adult (V85.1) (Z68.24) Never a smoker Orders SocHx: Never a smoker Tobacco Use Screening; Status:Complete; Done: [id number] Patient Instructions Please bring all medicines, vitamins, [...] negative for complaint. Vitals Vital Signs Recorded: [id number] 09:08AM Heart Rate68, L Radial Rfnhdptk610, LUE, Sitting Zbvjgcxds48, LUE, Sitting Height5 ft 11 in Olepsi226 lb BMI Bxdpyluxih76.13 kg/m2 BSA Calculated1.98 Tobacco Useb) No PHQ-2 [...] Jul 14 2022 10:20AM EST (Author) Normal [facility] Tobacco Screening.on 023 Adult depression screening assessment No [facility] y 250 DO Work Phone: Fall risk assessment a) No falls within the last year [facility] y 250 DO Work Phone: Tobacco use status CP b) No [facility] 250 DO Work Phone: CBC AUTO DIFFon 05-06-2022 BASO # 0.1 103/ul Normal 0.0-0.1 [facility] Comment on above: Performed By: #### C BC #### [facility] [address] [place] [address] Dr. Leesa Urbina Basophils/100 WBC (Bld) 1.4 % Normal 0.2-2.0 [facility] Comment on above: Performed By: #### C BC #### [facility] [address] [place] [address] [address] [address] Leesa Urbina EO # 0.4 103/ul Normal 0.0-0.7 [facility] Comment on above: Performed By: #### C BC #### [facility] [address] [place] [address] Dr. Leesa Urbina Eosinophils/100 WBC (Bld) 5.4 % Normal 0.9-7.0 [facility] Comment on above: Performed By: #### C BC #### [facility] [address] [place] [address] Dr. Leesa Urbina Erythrocyte distribution width (RBC) [Ratio] 13.3 % Normal 11.0-15.0 [facility] Comment on above: Performed By: #### C BC #### [facility] [address] [place] [address] Dr. Leesa Urbina Hematocrit (Bld) [Volume fraction] 35.8 % Critically low 42.0-54.0 [facility] Comment on above: Performed By: #### C BC #### [facility] [address] [place] [address] Dr. Leesa Urbina Hemoglobin (Bld) [Mass/Vol] 12.0 g/dL Critically low 14.0-18.0 [facility] Comment on above: Performed By: #### C BC #### [facility] [address] [place] [address] Dr. Leesa Urbina IG # 0.01 10e3/ul Normal 0.00-0.03 [facility] Comment on above: Performed By: #### C BC #### [facility] [address] [place] [address] Dr. Leesa Urbina IG % 0.2 % Normal 0.0-0.5 [facility] Comment on above: Performed By: #### C BC #### [facility] [address] [place] [address] Dr. Leesa Urbina LYMPH # 1.7 103/ul Normal 1.2-3.8 [facility] Comment on above: Performed By: #### C BC #### [facility] [address] [place] [address] Dr. Leesa Urbina Lymphocytes/100 WBC (Bld) 26.1 % Normal 20.5-60.0 [facility] Comment on above: Performed By: #### C BC #### [facility] [address] [place] [address] Dr. Leesa Urbina MANUAL DIFF REQ NO Normal [facility] Comment on above: Performed By: #### C BC #### [facility] [address] [place] [address] Dr. Leesa Urbina MCH (RBC) [Entitic mass] 31.0 pg Normal 25.9-34.0 [facility] Comment on above: Performed By: #### C BC #### [facility] [address] [place] [address] Dr. Leesa Urbina MCHC (RBC) [Mass/Vol] 33.5 g/dL Normal 29.9-35.2 [facility] Comment on above: Performed By: #### C BC #### [facility] [address] [place] [address] Dr. Leesa Urbina MCV (RBC) [Entitic vol] 92.5 fL Normal 80.0-94.0 [facility] Comment on above: Performed By: #### C BC #### [facility] [address] [place] [address] Dr. Leesa Urbina MONO # 0.4 103/ul Normal 0.3-0.8 [facility] Comment on above: Performed By: #### C BC #### [facility] [address] [place] [address] Dr. Leesa Urbina Monocytes/100 WBC (Bld) 6.5 % Normal 1.7-12.0 [facility] Comment on above: Performed By: #### C BC #### [facility] [address] [place] [address] Dr. Leesa Urbina NEUT # 4.0 103/ul Normal 1.4-6.5 [facility] Comment on above: Performed By: #### C BC #### [facility] [address] [place] [address] Dr. Leesa Urbina Neutrophils/100 WBC (Bld) 60.4 % Normal 43.0-75.0 [facility] Comment on above: Performed By: #### C BC #### [facility] [address] [address] [address] Leesa Urbina Platelet mean volume (Bld) [Entitic vol] 10.6 fL Normal 9.5-13.5 [facility] Comment on above: Performed By: #### C BC #### [facility] [address] [address] [address] Leesa Urbina PLT 185 103/ul Normal 150-450 [facility] Comment on above: Performed By: #### C BC #### [facility] [address] [address] [address] Leesa Urbina RBC 3.87 106/ul Critically low 4.70-6.10 [facility] Comment on above: Performed By: #### C BC #### [facility] [address] [address] [address] Leesa Urbina WBC 6.6 103/ul Normal 4.0-11.0 [facility] Comment on above: Performed By: #### C BC #### [facility] [address] [address] [address] Leesa Urbina GLYCOHEMOGLOBIN A1Con 2021 ADA RECOMMENDATION SEE BELOW Normal [facility] Comment on above: Result Comment: ADA RECOMMENDED LIMIT 4.0 - 6.0 ADA THERAPEUTIC TARGET < 7.0 ACTION SUGGESTED > 7.0 Performed By: #### A 1C #### [facility] [address] [address] [address] Leesa Urbina Glucose [Mass/Vol] 151 mg/dL Normal [facility] Comment on above: Performed By: #### A 1C #### [facility] [address] [address] [address] Leesa Urbina HbA1c (Bld) [Mass fraction] 6.9 % Critically high 4.5-6.2 [facility] Comment on above: Performed By: #### A 1C #### [facility] [address] [address] [address] Leesa Urbina LIPID PROFILEon 12-14-2022 CHOL-HDL RATIO NORM SEE BELOW Normal [facility] Comment on above: Result Comment: 3.3 - 4.4 LOW RISK 4.4 - 7.1 AVERAGE RISK 7.1 - 11.0 MODERATE RISK >11.0 HIGH RISK Performed By: #### L IPID, TSH, CMP #### [facility] [address] [address] [address] Leesa Urbina Cholesterol [Mass/Vol] 136 mg/dL Normal <=200 [facility] Comment on above: Performed By: #### L IPID, TSH, CMP #### [facility] [address] [address] [address] Leesa Urbina Cholesterol in HDL [Mass/Vol] 62 mg/dL Critically high 40-60 [facility] Comment on above: Performed By: #### L IPID, TSH, CMP #### [facility] [address] [address] [address] Leesa Urbina Cholesterol in LDL [Mass/Vol] 53.0 mg/dL Normal [facility] Comment on above: Performed By: #### L IPID, TSH, CMP #### [facility] [address] [address] [address] Leesa Urbina Cholesterol.total/Chol esterol in HDL [Mass ratio] 2.2 {ratio} Normal [facility] Comment on above: Performed By: #### L IPID, TSH, CMP #### [facility] [address] [address] [address] Leesa Urbina HDL NORMAL > or = 60 mg/dl - LO W CARDIOVASCULAR RISK <40 mg/dl - HIGH CARDIOVASCULAR RISK Normal [facility] Comment on above: Performed By: #### L IPID, TSH, CMP #### [facility] [address] [address] [address] Leesa Urbina LDL CALC NORMAL SEE BELOW Normal [facility] Comment on above: Result Comment: <100 mg/dl OPTIMAL 100 - 129 mg/dl NEAR OR ABOVE OPTIMAL 130 - 159 mg/dl BORDERLINE HIGH 160 - 189 mg/dl HIGH >190 mg/dl VERY HIGH Performed By: #### L IPID, TSH, CMP #### [facility] [address] [address] [address] Leesa Urbina Triglyceride [Mass/Vol] 105 mg/dL Normal <=150 [facility] Comment on above: Performed By: #### L IPID, TSH, CMP #### [facility] [address] [address] [address] Leesa Urbina VLDL CALC 21.0 mg/dL Normal [facility] Comment on above: Performed By: #### L IPID, TSH, CMP #### [facility] [address] [address] [address] Leesa Urbina PROF 14(COMP METB)on 022 Albumin [Mass/Vol] 3.4 g/dL Normal 3.4-5.0 [facility] Comment on above: Performed By: #### L IPID, TSH, CMP #### [facility] [address] [place] [address] Dr. Leesa Urbina Albumin/Globulin [Mass ratio] 1.1 {ratio} Normal [facility] Comment on above: Performed By: #### L IPID, TSH, CMP #### [facility] [address] [place] [address] Dr. Leesa Urbina ALP [Catalytic activity/Vol] 77 U/L Normal 46-116 [facility] Comment on above: Performed By: #### L IPID, TSH, CMP #### [facility] [address] [place] [address] Dr. Leesa Urbina ALT [Catalytic activity/Vol] 12 U/L Critically low 16-63 [facility] Comment on above: Performed By: #### L IPID, TSH, CMP #### [facility] [address] [address] [address] Leesa Urbina Anion gap [Moles/Vol] 12.7 mmol/L Normal [facility] Comment on above: Performed By: #### L IPID, TSH, CMP #### [facility] [address] [address] [address] Leesa Urbina AST [Catalytic activity/Vol] 19 U/L Normal 15-37 [facility] Comment on above: Performed By: #### L IPID, TSH, CMP #### [facility] [address] [place] [address] Dr. Leesa Urbina Bilirubin [Mass/Vol] 0.4 mg/dL Normal 0.2-1.0 [facility] Comment on above: Performed By: #### L IPID, TSH, CMP #### [facility] [address] [place] [address] Dr. Leesa Urbina Calcium [Mass/Vol] 8.5 mg/dL Normal 8.5-10.1 [facility] Comment on above: Performed By: #### L IPID, TSH, CMP #### [facility] [address] [place] [address] Dr. Leesa Urbina Chloride [Moles/Vol] 107 mmol/L Normal 98-107 [facility] Comment on above: Performed By: #### L IPID, TSH, CMP #### [facility] [address] [place] [address] Dr. Leesa Urbina CO2 [Moles/Vol] 27.4 mmol/L Normal 21.0-32.0 [facility] Comment on above: Performed By: #### L IPID, TSH, CMP #### [facility] [address] [place] [address] Dr. Leesa Urbina Creatinine [Mass/Vol] 1.06 mg/dL Normal 0.70-1.30 [facility] Comment on above: Performed By: #### L IPID, TSH, CMP #### [facility] [address] [place] [address] Dr. Leesa Urbina EGFR-AF CHINESE >60 Normal >=60 [facility] Comment on above: Performed By: #### L IPID, TSH, CMP #### [facility] [address] [place] [address] Dr. Leesa Urbina EGFR-NON AF CHINESE >60 Normal >=60 [facility] Comment on above: Performed By: #### L IPID, TSH, CMP #### [facility] [address] [place] [address] Dr. Leesa Urbina Globulin (S) [Mass/Vol] 3.1 g/dL Normal [facility] Comment on above: Performed By: #### L IPID, TSH, CMP #### [facility] [address] [address] [address] Leesa Urbina Glucose [Mass/Vol] 171 mg/dL Critically high 74-106 [facility] Comment on above: Performed By: #### L IPID, TSH, CMP #### [facility] [address] [place] [address] Dr. Leesa Urbina Potassium [Moles/Vol] 4.1 mmol/L Normal 3.5-5.1 [facility] Comment on above: Performed By: #### L IPID, TSH, CMP #### [facility] [address] [place] [address] Dr. Leesa Urbina Protein [Mass/Vol] 6.5 g/dL Normal 6.4-8.2 [facility] Comment on above: Performed By: #### L IPID, TSH, CMP #### [facility] [address] [place] [address] Dr. Leesa Urbina Sodium [Moles/Vol] 143 mmol/L Normal 136-145 [facility] Comment on above: Performed By: #### L IPID, TSH, CMP #### [facility] [address] [place] [address] Dr. Leesa Urbina Urea nitrogen [Mass/Vol] 24.0 mg/dL Critically high 7.0-18.0 [facility] Comment on above: Performed By: #### L IPID, TSH, CMP #### [facility] [address] [place] [address] Dr. Leesa Urbina Urea nitrogen/Creatinine [Mass ratio] 22.6 mg/mg Normal [facility] Comment on above: Performed By: #### L IPID, TSH, CMP #### [facility] [address] [place] [address] Dr. Leesa Urbina Basophils Auto (Bld) [#/Vol] Ordered By: Juan Ventura on 12-05-2021 Basophils (Bld) [#/Vol] 0.1 10*3/uL 0.0-0.2 [facility] Basophils/100 WBC Auto (Bld) Ordered By: Juan Ventura on 12-05-2021 Basophils/100 WBC (Bld) 0.9 % [facility] Blood hemoglobin measurement (mass/volume)Ordered By: Juan Ventura on 12-05-2021 Hemoglobin (Bld) [Mass/Vol] 12.4 g/dL 13.0-17.0 [facility] Blood leukocytes automated c ount (number/volume)Ordered By: Juan Ventura on 12-05-2021 WBC (Bld) [#/Vol] 7.0 10*3/uL 4.5-11.0 [facility] COVID-19 Positive/NegativeOr dered By: Juan Ventura on 12-05-2021 SARS-CoV-2 (COVID-19) N gene RENETTA+probe Ql (Resp) Negative Negative [facility] Comment on above: Testing for SARS-CoV -2 by RT-PCR This test was developed and its performance characteristics determined by [employer] and validated at the [facility]. This test has not been FDA cleared [...] on 12-05-2021 Creatinine [Mass/Vol] 1.28 mg/dL 0.64-1.27 [facility] Eosinophils Auto (Bld) [#/Vo l]Ordered By: Juan Ventura on 12-05-2021 Eosinophils (Bld) [#/Vol] 0.1 10*3/uL 0.0-0.45 [facility] Eosinophils/100 WBC Auto (Bl d)Ordered By: Juan Ventura on 12-05-2021 Eosinophils/100 WBC (Bld) 2.1 % [facility] Erythrocyte distribution wid th Auto (RBC) [Ratio]Ordered By: Juan Ventura on 12-05-2021 Erythrocyte distribution width (RBC) [Ratio] 14.6 % 12.0-14.8 [facility] Estimated glomerular filtrat ion rate (GFR) non- AmericanOrdered By: Juan Ventuar on 12-05-2021 GFR/1.73 sq M.predicted among non-blacks MDRD (S/P/Bld) [Vol rate/Area] 54 mL/Min [facility] Hematocrit Auto (Bld) [Volum e fraction]Ordered By: Juan Ventura on 12-05-2021 Hematocrit (Bld) [Volume fraction] 37.3 % 38.8-50.0 [facility] Laboratory - Hematology and Cell countsOrdered By: Juan Ventura on 12-05-2021 Nucleated RBC/100 WBC (Bld) [Ratio] 0.0 % 0-0.5 [facility] Lymphocytes Auto (Bld) [#/Vo l]Ordered By: Juan Ventura on 12-05-2021 Lymphocytes (Bld) [#/Vol] 1.4 10*3/uL 1.00-4.8 [facility] Lymphocytes/100 WBC Auto (Bl d)Ordered By: Juan Ventura on 12-05-2021 Lymphocytes/100 WBC (Bld) 19.8 % [facility] MCH Auto (RBC) [Entitic mass ]Ordered By: Juan Ventura on 12-05-2021 MCH (RBC) [Entitic mass] 30.8 pg 27.5-35.2 [facility] MCHC Auto (RBC) [Mass/Vol]Or dered By: Juan Ventura on 12-05-2021 MCHC (RBC) [Mass/Vol] 33.1 g/dL 32.5-35.6 [facility] MCV Auto (RBC) [Entitic vol] Ordered By: Juan Ventura on 12-05-2021 MCV (RBC) [Entitic vol] 93.1 fL 83.5-101 [facility] Monocytes Auto (Bld) [#/Vol] Ordered By: Juan Ventura on 12-05-2021 Monocytes (Bld) [#/Vol] 0.5 10*3/uL 0.0-0.8 [facility] Monocytes/100 WBC Auto (Bld) Ordered By: Juan Ventura on 12-05-2021 Monocytes/100 WBC (Bld) 7.3 % [facility] Neutrophils Auto (Bld) [#/Vo l]Ordered By: Juan Ventura on 12-05-2021 Neutrophils (Bld) [#/Vol] 4.9 10*3/uL 1.8-7.7 [facility] Neutrophils/100 WBC Auto (Bl d)Ordered By: Juan Ventura on 12-05-2021 Neutrophils/100 WBC (Bld) 69.9 % [facility] No Panel InformationOrdered By: Juan Ventura on 12-05-2021 Estimated GFR () > 60 mL/Min [facility] Comment on above: GFR estimated refere nce range: According to KDOQI guidelines, <60 ml/min/1.73m2 is sufficient to diagnose a patient with chronic kidney disease. Pharmacy Creatinine Clearance (Chem N/A [facility] Platelet mean volume Auto (B ld) [Entitic vol]Ordered By: Juan Ventura on 12-05-2021 Platelet mean volume (Bld) [Entitic vol] 8.9 fL 6.6-10.1 [facility] Platelets Auto (Bld) [#/Vol] Ordered By: Juan Ventura on 12-05-2021 Platelets (Bld) [#/Vol] 194 10*3/uL 150-450 [facility] RBC Auto (Bld) [#/Vol]Ordere d By: Juan Ventura on 12-05-2021 RBC (Bld) [#/Vol] 4.00 10*6/uL 3.90-5.60 [facility] Serum or plasma calcium fco urement (mass/volume)Ordered By: Juan Ventura on 12-05-2021 Calcium [Mass/Vol] 9.2 mg/dL 8.2-10.2 [facility] Serum or plasma chloride daniel surement (moles/volume)Ordered By: Juan Ventura on 12-05-2021 Chloride [Moles/Vol] 107 mmol/L 95-114 [facility] Serum or plasma glucose fco urement (mass/volume)Ordered By: Juan Ventura on 12-05-2021 Glucose [Mass/Vol] 117 mg/dL 70-100 [facility] Comment on above: ADA recommended refe rence range Random Glucose Reference Range is dependent on time and content of last meal. Glucose of more than 200 mg/dL in a nonstressed, ambulatory subject supports the diagnosis of Diabetes Mellitus. Serum or plasma potassium me asurement (moles/volume)Ordered By: Juan Ventura on 12-05-2021 Potassium [Moles/Vol] 4.6 mmol/L 3.5-5.1 [facility] Serum or plasma sodium measu rement (moles/volume)Ordered By: Juan Ventura on 12-05-2021 Sodium [Moles/Vol] 141 mmol/L 136-146 [facility] Serum or plasma total carbon dioxide measurement (moles/volume)Ordered By: Juan Ventura on 12-05-2021 CO2 [Moles/Vol] 26.2 mmol/L 22.0-30.0 [facility] Serum or plasma urea nitroge n measurement (mass/volume)Ordered By: Juan Ventura on 12-05-2021 Urea nitrogen [Mass/Vol] 23 mg/dL 9-23 [facility] CBC AUTO DIFFon 11-05-2021 BASO # 0.1 103/ul Normal 0.0-0.1 [facility] Comment on above: Performed By: #### C BC #### [facility] [address] [address] [address] Leesa Urbina Basophils/100 WBC (Bld) 0.8 % Normal 0.2-2.0 [facility] Comment on above: Performed By: #### C BC #### [facility] [address] [place] [address] Dr. Leesa Urbina EO # 0.4 103/ul Normal 0.0-0.7 [facility] Comment on above: Performed By: #### C BC #### [facility] [address] [place] [address] Dr. Leesa Urbina Eosinophils/100 WBC (Bld) 5.6 % Normal 0.9-7.0 [facility] Comment on above: Performed By: #### C BC #### [facility] [address] [place] [address] Dr. Leesa Urbina Erythrocyte distribution width (RBC) [Ratio] 13.4 % Normal 11.0-15.0 [facility] Comment on above: Performed By: #### C BC #### [facility] [address] [place] [address] Dr. Leesa Urbina Hematocrit (Bld) [Volume fraction] 36.1 % Critically low 42.0-54.0 [facility] Comment on above: Performed By: #### C BC #### [facility] [address] [place] [address] Dr. Leesa Urbina Hemoglobin (Bld) [Mass/Vol] 11.8 g/dL Critically low 14.0-18.0 [facility] [facility] Comment on above: Performed By: #### C BC #### [facility] [address] [place] [address] Dr. Leesa Urbina IG # 0.02 10e3/ul Normal 0.00-0.03 [facility] Comment on above: Performed By: #### C BC #### [facility] [address] [place] [address] Dr. Leesa Urbina IG % 0.3 % Normal 0.0-0.5 [facility] Comment on above: Performed By: #### C BC #### [facility] [address] [place] [address] Dr. Leesa Urbina LYMPH # 1.8 103/ul Normal 1.2-3.8 [facility] Comment on above: Performed By: #### C BC #### [facility] [address] [place] [address] Dr. Leesa Urbina Lymphocytes/100 WBC (Bld) 28.4 % Normal 20.5-60.0 [facility] Comment on above: Performed By: #### C BC #### [facility] [address] [place] [address] Dr. Leesa Urbina MANUAL DIFF REQ NO Normal [facility] Comment on above: Performed By: #### C BC #### [facility] [address] [place] [address] Dr. Leesa Urbina MCH (RBC) [Entitic mass] 30.7 pg Normal 25.9-34.0 [facility] Comment on above: Performed By: #### C BC #### [facility] [address] [place] [address] Dr. Leesa Urbina MCHC (RBC) [Mass/Vol] 32.7 g/dL Normal 29.9-35.2 [facility] Comment on above: Performed By: #### C BC #### [facility] [address] [place] [address] Dr. Leesa Urbina MCV (RBC) [Entitic vol] 94.0 fL Normal 80.0-94.0 [facility] Comment on above: Performed By: #### C BC #### [facility] [address] [place] [address] Dr. Leesa Urbina MONO # 0.5 103/ul Normal 0.3-0.8 [facility] Comment on above: Performed By: #### C BC #### [facility] [address] [place] [address] Dr. Leesa Urbina Monocytes/100 WBC (Bld) 8.1 % Normal 1.7-12.0 [facility] Comment on above: Performed By: #### C BC #### [facility] [address] [place] [address] Dr. Leesa Urbina NEUT # 3.5 103/ul Normal 1.4-6.5 [facility] Comment on above: Performed By: #### C BC #### [facility] [address] [address] [address] Leesa Urbina Neutrophils/100 WBC (Bld) 56.8 % Normal 43.0-75.0 [facility] Comment on above: Performed By: #### C BC #### [facility] [address] [address] [address] Leesa Urbina Platelet mean volume (Bld) [Entitic vol] 10.3 fL Normal 9.5-13.5 [facility] Comment on above: Performed By: #### C BC #### [facility] [address] [address] [address] Leesa Urbina PLT 179 103/ul Normal 150-450 [facility] Comment on above: Performed By: #### C BC #### [facility] [address] [address] [address] Leesa Urbina RBC 3.84 106/ul Critically low 4.70-6.10 [facility] Comment on above: Performed By: #### C BC #### [facility] [address] [address] [address] Leesa Urbina WBC 6.2 103/ul Normal 4.0-11.0 [facility] Comment on above: Performed By: #### C BC #### [facility] [address] [address] [address] Leesa Urbina GLYCOHEMOGLOBIN A1Con 2021 ADA RECOMMENDATION SEE BELOW Normal [facility] Comment on above: Result Comment: ADA RECOMMENDED LIMIT 4.0 - 6.0 ADA THERAPEUTIC TARGET < 7.0 ACTION SUGGESTED > 7.0 Performed By: #### L IPID, TSH, CMP #### [facility] [address] [address] [address] Leesa Urbina Glucose [Mass/Vol] 151 mg/dL Normal [facility] Comment on above: Performed By: #### L IPID, TSH, CMP #### [facility] [address] [address] [address] Leesa Urbina HbA1c (Bld) [Mass fraction] 6.9 % Critically high 4.5-6.2 [facility] Comment on above: Performed By: #### L IPID, TSH, CMP #### [facility] [address] [address] [address] Leesa Urbina LIPID PROFILEon 11-05-2021 CHOL-HDL RATIO NORM SEE BELOW Normal [facility] Comment on above: Result Comment: 3.3 - 4.4 LOW RISK 4.4 - 7.1 AVERAGE RISK 7.1 - 11.0 MODERATE RISK >11.0 HIGH RISK Performed By: #### L IPID, TSH, CMP #### [facility] [address] [address] [address] Leesa Urbina Cholesterol [Mass/Vol] 150 mg/dL Normal <=200 [facility] Comment on above: Performed By: #### L IPID, TSH, CMP #### [facility] [address] [address] [address] Leesa Urbina Cholesterol in HDL [Mass/Vol] 60 mg/dL Normal 40-60 [facility] Comment on above: Performed By: #### L IPID, TSH, CMP #### [facility] [address] [address] [address] Leesa Urbina Cholesterol in LDL [Mass/Vol] 70.8 mg/dL Normal [facility] Comment on above: Performed By: #### L IPID, TSH, CMP #### [facility] [address] [address] [address] Leesa Urbina Cholesterol.total/Chol esterol in HDL [Mass ratio] 2.5 {ratio} Normal [facility] Comment on above: Performed By: #### L IPID, TSH, CMP #### [facility] [address] [address] [address] Leesa Urbina HDL NORMAL > or = 60 mg/dl - LO W CARDIOVASCULAR RISK <40 mg/dl - HIGH CARDIOVASCULAR RISK Normal [facility] Comment on above: Performed By: #### L IPID, TSH, CMP #### [facility] [address] [address] [address] Leesa Urbina LDL CALC NORMAL SEE BELOW Normal [facility] Comment on above: Result Comment: <100 mg/dl OPTIMAL 100 - 129 mg/dl NEAR OR ABOVE OPTIMAL 130 - 159 mg/dl BORDERLINE HIGH 160 - 189 mg/dl HIGH >190 mg/dl VERY HIGH Performed By: #### L IPID, TSH, CMP #### [facility] [address] [address] [address] Leesa Urbina Triglyceride [Mass/Vol] 96 mg/dL Normal <=150 [facility] Comment on above: Performed By: #### L IPID, TSH, CMP #### [facility] [address] [address] [address] Leesa Urbina VLDL CALC 19.2 mg/dL Normal [facility] Comment on above: Performed By: #### L IPID, TSH, CMP #### [facility] [address] [address] [address] Leesa Urbina MICROALB CREAT RATIO RANDOMo n 11-05-2021 mALB <1.3 Normal <=30.0 [facility] Comment on above: Performed By: #### L IPID, TSH, CMP #### [facility] [address] [address] [address] Leesa Urbina MALB CR RATIO 11.4 mg/g Normal 0.0-29.9 [facility] Comment on above: Performed By: #### L IPID, TSH, CMP #### [facility] [address] [address] [address] Leesa Urbina MALB CR RATIO RANGE SEE BELOW Normal [facility] Comment on above: Result Comment: NO M ICROALBUMINURIA 0-29 MG/G CLINICAL MICROALBUMINURIA 30-300 MG/G MACROALBUMINURIA >300 MG/G Performed By: #### L IPID, TSH, CMP #### [facility] [address] [address] [address] Leesa Urbina URINE CREAT 114.03 mg/dL Normal 20.00-300.00 [facility] Comment on above: Performed By: #### L IPID, TSH, CMP #### [facility] [address] [address] [address] Leesa Urbina PROF 14(COMP METB)on 06-15-2 022 Albumin [Mass/Vol] 2.3 g/dL Critically low 3.4-5.0 [facility] Comment on above: Performed By: #### L IPID, TSH, CMP #### [facility] [address] [address] [address] Leesa Urbina Albumin/Globulin [Mass ratio] 0.5 {ratio} Normal [facility] Comment on above: Performed By: #### L IPID, TSH, CMP #### [facility] [address] [address] [address] Leesa Urbina ALP [Catalytic activity/Vol] 77 U/L Normal 46-116 [facility] Comment on above: Performed By: #### L IPID, TSH, CMP #### [facility] [address] [place] [address] Dr. Leesa Urbina ALT [Catalytic activity/Vol] 16 U/L Normal 16-63 [facility] Comment on above: Performed By: #### L IPID, TSH, CMP #### [facility] [address] [place] [address] Dr. Leesa Urbina Anion gap [Moles/Vol] 13.8 mmol/L Normal [facility] Comment on above: Performed By: #### L IPID, TSH, CMP #### [facility] [address] [place] [address] Dr. Leesa Urbina AST [Catalytic activity/Vol] 15 U/L Normal 15-37 [facility] Comment on above: Performed By: #### L IPID, TSH, CMP #### [facility] [address] [place] [address] Dr. Leesa Urbina Bilirubin [Mass/Vol] 0.5 mg/dL Normal 0.2-1.0 [facility] Comment on above: Performed By: #### L IPID, TSH, CMP #### [facility] [address] [place] [address] Dr. Leesa Urbina Calcium [Mass/Vol] 8.7 mg/dL Normal 8.5-10.1 [facility] Comment on above: Performed By: #### L IPID, TSH, CMP #### [facility] [address] [address] [address] Leesa Urbina Chloride [Moles/Vol] 107 mmol/L Normal 98-107 [facility] Comment on above: Performed By: #### L IPID, TSH, CMP #### [facility] [address] [address] [address] Leesa Urbina CO2 [Moles/Vol] 26.2 mmol/L Normal 21.0-32.0 [facility] Comment on above: Performed By: #### L IPID, TSH, CMP #### [facility] [address] [address] [address] Leesa Urbina Creatinine [Mass/Vol] 1.25 mg/dL Normal 0.70-1.30 [facility] Comment on above: Performed By: #### L IPID, TSH, CMP #### [facility] [address] [place] [address] Dr. Leesa Urbina EGFR-AF CHINESE >60 Normal >=60 [facility] Comment on above: Performed By: #### L IPID, TSH, CMP #### [facility] [address] [place] [address] Dr. Leesa Urbina EGFR-NON AF CHINESE 55 mL/min/1.73m2 Critically low >=60 [facility] Comment on above: Performed By: #### L IPID, TSH, CMP #### [facility] [address] [place] [address] Dr. Leesa Urbina Globulin (S) [Mass/Vol] 4.3 g/dL Normal [facility] Comment on above: Performed By: #### L IPID, TSH, CMP #### [facility] [address] [place] [address] Dr. Leesa Urbina Glucose [Mass/Vol] 137 mg/dL Critically high 74-106 [facility] Comment on above: Performed By: #### L IPID, TSH, CMP #### [facility] [address] [place] [address] Dr. Leesa Urbina Potassium [Moles/Vol] 4.0 mmol/L Normal 3.5-5.1 [facility] Comment on above: Performed By: #### L IPID, TSH, CMP #### [facility] [address] [address] [address] Leesa Urbina Protein [Mass/Vol] 6.6 g/dL Normal 6.4-8.2 [facility] Comment on above: Performed By: #### L IPID, TSH, CMP #### [facility] [address] [address] [address] Leesa Urbina Sodium [Moles/Vol] 143 mmol/L Normal 136-145 [facility] Comment on above: Performed By: #### L IPID, TSH, CMP #### [facility] [address] [place] [address] Dr. Leesa Urbina Urea nitrogen [Mass/Vol] 24.0 mg/dL Critically high 7.0-18.0 [facility] Comment on above: Performed By: #### L IPID, TSH, CMP #### [facility] [address] [place] [address] Dr. Leesa Urbina Urea nitrogen/Creatinine [Mass ratio] 19.2 mg/mg Normal [facility] Comment on above: Performed By: #### L IPID, TSH, CMP #### [facility] [address] [place] [address] Dr. Leesa Urbina TSHon 11-05-2021 TSH 0.996 uIU/mL Normal 0.358-3.740 [facility] Comment on above: Performed By: #### L IPID, TSH, CMP #### [facility] [address] [place] [address] Dr. Leesa Urbina Tobacco Screening.on 022 Adult depression screening assessment No [facility] [facility] DO Work Phone: Fall risk assessment a) No falls within the last year [facility] [facility] 250 DO Work Phone: Tobacco use status CPHS b) No [facility] [facility] 250 DO Work Phone: Vital Signs Date Time Vital Sign Value Performing Clinician Facility 07-13-2023 08:34-0500 Body height 180.3 cm Dev Camp MD Work Phone: [facility] 07-13-2023 08:34-0500 Body mass index (BMI) [Ratio] 23.99 kg/m2 Dev Camp MD Work Phone: [facility] 07-13-2023 08:34-0500 Body weight 78.02 kg Dev Camp MD Work Phone: [facility] 07-13-2023 08:34-0500 Diastolic blood pressure 64 mm[Hg] Dev Camp MD Work Phone: [facility] 07-13-2023 08:34-0500 Heart rate 60 /min Dev Camp MD Work Phone: [facility] 07-13-2023 08:34-0500 Systolic blood pressure 108 mm[Hg] Dev Camp MD Work Phone: [facility] 11-17-2022 14:15-0400 Body height 180.34 cm Imad Asaad Other [employer] [facility] [employer] Other 11-17-2022 14:15-0400 Body mass index (BMI) [Ratio] 23.71 kg/m2 Imad Asaad Other [employer] Other 11-17-2022 14:15-0400 Body weight 77.11 kg Imad Asaad Other [employer] Other 11-17-2022 14:15-0400 Diastolic blood pressure 78 mm[Hg] Imad Asaad Other [employer] Other 11-17-2022 14:15-0400 Systolic blood pressure 127 mm[Hg] Imad Asaad Other [employer] Other 07-14-2022 09:08-0500 Body height 180.34 cm Gabriel Bello Work Phone: [facility] 250 DO Work Phone: 07-14-2022 09:08-0500 Body mass index (BMI) [Ratio] 24.13 kg/m2 Gabriel Bello Work Phone: [facility] 250 DO Work Phone: 07-14-2022 09:08-0500 Body surface area Derived from formula 1.98 m2 Gabriel Bello Work Phone: [facility] 250 DO Work Phone: 07-14-2022 09:08-0500 Body weight 78.47 kg Gabriel Bello Work Phone: [facility] 250 DO Work Phone: 07-14-2022 09:08-0500 Diastolic blood pressure 78 mm[Hg] Gabriel Bello Work Phone: [facility] 250 DO Work Phone: 07-14-2022 09:08-0500 Heart rate 68 /min Gabriel Bello Work Phone: [facility] 250 DO Work Phone: 07-14-2022 09:08-0500 Systolic blood pressure 124 mm[Hg] Gabriel Bello Work Phone: [facility] 250 DO Work Phone: 07-03-2021 15:20-0500 Diastolic blood pressure 78 mm[Hg] Gabriel Bello Work Phone: [facility] 250 DO Work Phone: 07-03-2021 15:20-0500 Heart rate 65 /min Gabriel Bello Work Phone: [facility] 250 DO Work Phone: 07-03-2021 15:20-0500 Systolic blood pressure 136 mm[Hg] Gabriel Bello Work Phone: [facility] 250 DO Work Phone: 07-03-2021 15:17-0500 Body height 180.34 cm Gabriel Belol Work Phone: [facility] 250 DO Work Phone: 07-03-2021 15:17-0500 Body mass index (BMI) [Ratio] 24.97 kg/m2 Gabriel Bello Work Phone: [facility] 250 DO Work Phone: 07-03-2021 15:17-0500 Body surface area Derived from formula 2.01 m2 Gabriel Bello Work Phone: [facility] 250 DO Work Phone: 07-03-2021 15:17-0500 Body weight 81.19 kg Gabriel Bello Work Phone: [facility] 250 DO Work Phone: 07-03-2021 15:17-0500 Diastolic blood pressure 80 mm[Hg] Gabriel Bello Work Phone: [facility] 250 DO Work Phone: 07-03-2021 15:17-0500 Systolic blood pressure 151 mm[Hg] Gabriel Bello Work Phone: [facility] 250 DO Work Phone: Encounters Encounter Date Encounter Type Care Provider Facility Start: 02-21-2024 End: 02-21-2024 ambulatory [facility] Start: 02-07-2024 End: 02-07-2024 ambulatory [facility] Start: 01-13-2024 End: 01-13-2024 ambulatory [facility] Start: 01-11-2024 End: 01-11-2024 ambulatory GABRIEL BELLO Not Available Start: 11-15-2023 End: 11-15-2023 ambulatory GABRIEL Alicia ACE Not Available Start: 10-26-2023 End: 10-26-2023 ambulatory LAURA A PETITTI Not Available Start: 10-08-2023 End: 10-08-2023 ambulatory GABRIEL BELLO Not Available Start: 10-07-2023 End: 10-07-2023 ambulatory GABRIEL BELLO Not Available Start: 10-07-2023 End: 10-07-2023 ambulatory GABRIEL BELLO Not Available Start: 09-13-2023 End: 09-13-2023 ambulatory Miller Donald Facility:[facility] Start: 09-13-2023 End: 09-13-2023 ambulatory DO Gabriel Bello Work Phone: [facility] Work Phone: Start: 09-13-2023 End: 09-13-2023 Patient encounter procedure DO Gabriel Bello Work Phone: [facility] Work Phone: Start: 07-13-2023 End: 07-13-2023 Office outpatient visit 25 minutes Dev Camp MD Work Phone: [facility] Comment on above: Benign essential hyp ertension (Primary Dx); Mixed hyperlipidemia; Paroxysmal atrial fibrillation (CMS/HCC); Former smoker Start: 07-13-2023 End: 07-13-[address] [facility] Start: 05-26-2023 End: 05-26-2023 ambulatory CHRIS PATEL Not Available Start: 05-12-2023 End: 05-12-2023 ambulatory GABRIEL BELLO Not Available Start: 04-26-2023 End: 04-26-2023 ambulatory LAURA A PETITTI Not Available Start: 12-24-2022 End: 12-24-2022 ambulatory Imad Asaad Facility:[facility] Start: 11-26-2022 End: 11-26-2022 ambulatory Imad Asaad Facility:[facility] Start: 11-26-2022 End: 11-26-2022 ambulatory DO Gabriel Bello Work Phone: [facility] Work Phone: Start: 11-26-2022 End: 11-26-2022 Patient encounter procedure DO Gabriel Bello Work Phone: [facility] [place] Work Phone: Start: 11-17-2022 End: 11-17-2022 ambulatory Imad Asaad Other [facility] [employer] Other Start: 11-17-2022 Office outpatient ne w 45 minutes Imad Asaad [facility] Start: 11-17-2022 Telephone encounter Imad Asaad [facility] Start: 09-03-2022 End: 09-04-[address] GABRIEL BELLO Facility:[facility] Start: 07-14-2022 Office outpatient visit 25 minutes Gabriel Bello Work Phone: [facility] 250 DO Work Phone: Start: 07-14-[address] Gabriel Kulkarni Facility: Start: 05-25-2022 End: 05-26-[address] GABRIEL BELLO Facility:[facility] Start: 05-06-2022 End: 05-07-[address] GABRIEL BELLO Facility:[facility] Start: 03-27-2022 Rx Renewal Gabriel jennings Work Phone: [facility] 250 DO Work Phone: Start: 12-05-2021 End: 12-05-2021 Patient encounter procedure DO Gabriel Bello Work Phone: [facility] Start: 11-20-2021 End: 11-21-[address] DOCTOR BISHOP Facility:[facility] Start: 11-05-2021 End: 11-06-[address] GABRIEL BELLO Facility:[facility] Start: 07-03-2021 Office outpatient visit 25 minutes Gabriel Bello Work Phone: [facility] 250 DO Work Phone: Start: 03-05-2021 Rx Renewal Marina lozada MD Work Phone: [facility] 250 DO Work Phone: Start: 07-12-2020 End: 07-12-[address] [facility]-Covid Vaccine Procedures Date Procedure Procedure [...] By: #### L IPID, TSH, CMP #### [facility] [address] [place] [address] Dr. Leesa Urbina Start: 11-20-[address] DOCTOR BISHOP Comment on above: Performed By: #### P SAD #### [facility] [address] [place] [address] Dr. Leesa Urbina Appendectomy Gabriel daniel Work Phone: Cataract surgery Gabriel morris Work Phone: Colonoscopy Gabriel Huynh n Work Phone: Comment on above: [id number] Jovanny Yu; Operation on lip Gabriel morris Work Phone: Prostatectomy Gabriel jennings Work Phone: Plan of Treatment Date Care Activity Detail Author Start: 07-18-2024 End: 07-18-2024 Patient encounter procedure 07/18/2024 8:50 AM EST Office Visit [facility] [address] [facility] [address] [place] [id number] Dev Camp MD [address] [facility] [address] [place], [place] [id number] [facility] Start: 07-13-2023 FUV, Provider: Dev Camp, Status: Pen, Time: 8:50 AM FUV, Provider: Dev Camp, Status: Pen, Time: 8:50 AM -[facility] 250 DO Work Phone: Start: 07-14-2022 FUV, Provider: Dev Camp, Status: Pen, Time: 9:10 AM FUV, Provider: Dev Camp, Status: Pen, Time: 9:10 AM -[facility] 250 DO Work Phone: Start: 06-24-2021 FUV, Provider: Dev Camp, Status: Pen, Time: 10:15 AM FUV, Provider: Dev Camp, Status: Pen, Time: 10:15 AM -[facility] 250 DO Work Phone: Start: 1960 DTaP/Tdap/Td Vaccine s (1 - Tdap) DTaP/Tdap/Td Vaccines (1 - Tdap) [facility] Start: 1957 Urine screening for protein Diabetes: Urine Protein Screening [facility] Start: 1948 Diabetic foot examination Diabetes: Foot Exam [facility] Start: 1948 Glaucoma screening Diabetes: R etinopathy Screening [facility] Start: 1938 Hemoglobin A1c measurement Diabetes: Hemoglobin A1C [facility] Start: 1938 Lipid panel Lipid Panel [facility] Start: 1938 Medicare Annual Wellness Visit Medicare Annual Wellness Visit (AWV) [facility] HIV 1+2 Ab+HIV1 p24 Ag [Presence] in Serum or Plasma by Immunoassay [facility] Immunizations Immunization Date Immunization Notes Care Provider Estefanía singh 04-03-2022 Moderna COVID-19 Biv al Booster 50 MCG/0.5ML Intramuscular Suspension Gabriel Bello Work Phone: [facility] 250 DO Work Phone: 03-10-2022 Fluad Quadrivalent 0 .5 ML Intramuscular Prefilled Syringe Gabriel Downingman Work Phone: [facility] 250 DO Work Phone: 12-19-2021 Moderna COVID-19 Vac cine 100 MCG/0.5ML Intramuscular Suspension Gabriel Downingman Work Phone: [facility] 250 DO Work Phone: 03-20-2021 Moderna COVID-19 Vac cine 100 MCG/0.5ML Intramuscular Suspension Gabriel Vargas Ace Work Phone: [facility] 03-12-2021 influenza, high dose seasonal, preservative-free Gabriel Downingman Work Phone: [facility] 250 DO Work Phone: 02-26-2021 Fluzone High-Dose Quadrivalent 0.7 ML Intramuscular Suspension Prefilled Syringe Gabriel Bello Work Phone: [facility] 250 DO Work Phone: 07-12-2020 COVID-19 mRNA-1273 (Moderna) [facility] 06-15-2020 COVID-19 mRNA-1273 (Moderna) [facility] 03-15-2020 Fluad Quadrivalent 0 .5 ML Intramuscular Prefilled Syringe Gabriel Bello Work Phone: [facility] 250 DO Work Phone: 02-24-2020 influenza, high dose seasonal, preservative-free Gabriel A [facility] Work Phone: 03-11-2019 zoster vaccine recombinant Gabriel A Ace Work Phone: [facility] 250 DO Work Phone: 03-01-2019 influenza, high dose seasonal, preservative-free Gabriel A [facility] Work Phone: 02-21-2019 influenza, high dose seasonal, preservative-free Gabriel A Ace Work Phone: [facility] DO Work Phone: 12-22-2018 zoster vaccine recombinant Gabriel Bello Work Phone: [facility] DO Work Phone: 02-25-2018 influenza, high dose seasonal, preservative-free Gabriel A Ace Work Phone: [facility] DO Work Phone: 03-16-2017 influenza, high dose seasonal, preservative-free Gabriel A Ace Work Phone: [facility] DO Work Phone: 05-24-2016 pneumococcal conjuga te vaccine, 13 valent Gabriel Bello Work Phone: [facility] 03-22-2015 influenza, high dose seasonal, preservative-free Gabriel A Ace Work Phone: [facility] 250 DO Work Phone: 05-24-2012 pneumococcal polysaccharide vaccine, 23 valent Gabriel A Ace Work Phone: [facility] 05-31-2009 novel influenza-H1N1 -09, preservative-free, injectable Gabriel Bello Work Phone: -[facility] Mcd[facility] DO Work Phone: Payers Date Payer Category Payer Medicare [id number] 2022 Self-pay [id number] 1959 Private Health Insurance [id number] 1938 Unknown [id number] 2.16. 840.1.917213.3.579.2.356 1938 Unknown [id number] 2.16.84 0.1.326641.3.579.2.593 1938 Unknown [id number] 2.16.84 0.1.691767.3.579.2.593 1938 Unknown [id number] 2.16.84 0.1.900247.3.579.2.593 1938 Unknown [id number] 2.16.84 0.1.535461.3.579.2.593 1938 Unknown [id number] 2.16.84 0.1.381302.3.579.2.593 1938 Unknown [id number] 2.16.84 0.1.816165.3.579.2.1259 1938 Unknown [id number] 2.16.84 0.1.575285.3.579.2.1259 1938 Unknown [id number] 2.16.84 0.1.362094.3.579.2.1259 1938 Unknown [id number] 2.16.84 0.1.898814.3.579.2.1259 1938 Unknown [id number] 2.16.84 0.1.414170.3.579.2.1259 1938 Unknown [id number] 2.16.84 0.1.977230.3.579.2.1259 1938 Unknown [id number] 2.16.840 .1.672079.3.579.2.1259 1938 Unknown [id number] 2.16.840 .1.700549.3.579.2.1259 1938 Unknown [id number] 2.16.840 .1.042628.3.579.2.1259 1938 Unknown [id number] 2.16.8 40.1.040364.3.579.2.1244 1938 Unknown [id number] 2.16.8 40.1.320427.3.579.2.1244 1938 Unknown [id number] 2.16.8 40.1.755114.3.579.2.1244 1938 Unknown [id number] 2.16.8 40.1.522398.3.579.2.1246 1938 Unknown [id number] 2.16.8 40.1.972879.3.579.2.1246 1938 Unknown [id number] 2.16.8 40.1.668147.3.579.2.1246 1938 Unknown [id number] 2.16.8 40.1.824930.3.579.2.1246 1938 Unknown [id number] 2.16.8 40.1.488045.3.579.2.1246 1938 Unknown [id number] 2.16.8 40.1.540095.3.579.2.1246 Medicare Medicare [id number] Private Health Insurance Self Pay [facility] [id number] [employer] Unknown [id number] 2.16.8 40.1.816094.3.579.2.531 Unknown [id number] 2.16.8 40.1.555567.3.579.2.531 Unknown [id number] 2.16.8 40.1.256993.3.579.2.531 Social History Date Type Detail Facility Tobacco smoking status MIIS Unknown if ever smoked [facility] Start: 1940 Sex Assigned At Male F [facility] Start: 07-13-2023 Never a smoker Never a smoker [facility] 250 DO Work Phone: Comment on above: 2-3 drinks a month; Start: 12-05-2021 End: 12-24-2022 Tobacco smoking status NHIS Ex-smoker (finding) [facility] Start: 07-13-2023 Sex Assigned At N [facility] [employer] [facility] Other End: 05-24-1989 History of tobacco use Current smoker [facility] Work Phone: End: 05-24-1989 History of tobacco use Cigarette Smoker [facility] Work Phone: Start: 07-13-2023 Tobacco use and exposure Smokeless tobacco non-user [facility] Work Phone: Start: 07-13-2023 Alcohol intake Lifetime non-d joe (finding) [facility] Work Phone: Start: 1940 [facility] Start: 07-03-2023 End: 07-13-2023 Exposure to SARS-CoV-2 (event) Not sure [facility] Goals Date Patient Goal Desired Activity [...] by mouth once daily., Disp: , Rfl: [id number]-[id number]-drgmceb (Creon) 24,000-76,000 -120,000 unit capsule, Take 1 [...] discussion and plan. documented in this encounter [facility] Work Phone: Instructions 07-13-2023 Patient Instructions [...] of your visit. documented in this encounter [facility] Work Phone: Evaluation note 11-17-2022 Note Date & Type Note Facility 11-17-2022 Evaluation note Encounter Date Diagnosis Assessment Notes Oct, Change in bowel habits (ICD-10 - R19.4) Oct, Diverticulosis (ICD-10 - K57.90) Oct, IBS (irritable bowel syndrome) (ICD-10 - K58.9) Oct, Pancreatic insufficiency (ICD-10 - K86.89) [facility] Other History of Present illness Narrative 07-14-2022 [...] necessary and we suggest follow-up next year [facility] 250 DO Work Phone: Evaluation note Note Date & Type Note Facility Evaluation note [facility]: Evaluation note Note Date & Type Note Facility Evaluation note No Information [facility] [employer] Other Evaluation note Note Date & Type Note Facility Evaluation note Diagnosis Benign essential hypertension- Primary Essential hypertension, benign Mixed hyperlipidemia Paroxysmal atrial fibrillation (CMS/HCC) Atrial fibrillation Former smoker Personal history of tobacco use, presenting hazards to health documented in this encounter [facility] Work Phone: History general Narrative - [...] History Right cataract surge ry per in [place], [place]. 10-28-17 Surgical History Mohs repair / left upper lip Hospitalization History see above [place] [facility] Other History of Present illness Narrative Note [...] suggest continued therapy as before without change. -[facility] 250 DO Work Phone: Advance Directives No [...] Procedures ECG 12 Lead Dev Camp MD [address] [place] [id number] Referral ID Status Reason Start Date Expiration Date V isits Requested Visits Authorized [id number] Authorized 07/13/2023 07/12/2024 1 1 Specialty Diagnoses / Procedures Referred By Contac t Referred To Contact Cardiology Diagnoses Paroxysmal atrial fibrillation (CMS/HCC) Procedures Follow Up In Cardiology Dev Camp MD [address] [place] [id number] Dev Camp MD [address] [place] [id number] Referral ID Status Reason Start Date Expiration Date V isits Requested Visits Authorized [id number] Authorized 07/13/2023 07/12/2024 1 1 Additional Source [...] Active Jj Garcia MD Attending Provider Active Car Unloader Relationship Specialty Start Date End Date Gabriel Bello DO [address] [place] [address] PCP - General 05/24/99 Team Status: Inactive [...] section and content) DATE CREATED AUTHOR 07/15/2022 [facility] DATE CREATED AUTHOR AUTHOR'S ORGANIZ ATION 07/15/2022 [facility] DATE CREATED AUTHOR AUTHOR'S ORGANIZ ATION 09/10/2022 [facility] DATE CREATED AUTHOR AUTHOR'S ORGANIZ ATION 09/18/2023 [facility] DATE CREATED AUTHOR AUTHOR'S ORGANIZ ATION 01/12/2024 [facility] EPIC DATE CREATED AUTHOR AUTHOR'S ORGANIZ ATION 02/08/2024 [facility] DATE CREATED AUTHOR AUTHOR'S ORGANIZ ATION 02/25/2024 [facility] REASON FOR VISIT (unrecogniz ed section and content) Reason Comments Annual Exam Specialty Diagnoses / Procedures Referred By Contac t Referred To Contact Diagnoses Paroxysmal atrial fibrillation ([facility]) Procedures ECG 12 Lead Dev Camp MD [address] [facility] 2, [address] [address] Referral ID Status Reason Start Date Expiration Date V isits Requested Visits Authorized [id number] Authorized 07/13/2023 07/12/2024 1 1 FOR RECORDS [...] BE BASED ON THE PRIMARY CLINICAL RECORDS. [facility] [employer] provides no warranty or guarantee of the accuracy or completeness of information in this document.
[2024-03-08 23:03] VITALS: BP 221/90; PULSE 69; TEMP 36.6; O2SAT 96; BMI 23.7
--- NOTE | 2024-03-08 23:19 | ED_ITS ---
HPI HPI - General Adult General Chief complaint: Dizziness Stated complaint: Blood Pressure 220 over 109 High Time Seen by Provider: 03/08/24 23:16 Source: patient Mode of arrival: walk-in Limitations: no limitations History of Present Illness HPI narrative: patient presents complaining of HTN. States he can tell when his BP because of a sensation at the back of his neck. No chest pain, abdominal pain or dyspnea. No headache. Came in because of the BP Related Data Home Medications ?Medication ?Instructions ?Recorded ?Confirmed rivaroxaban 20 mg tablet (Xarelto) 20 mg PO DAILY 09/29/23 01/10/24 abiraterone 250 mg tablet 500 mg PO DAILY 01/10/24 01/10/24 atorvastatin 20 mg tablet 20 mg PO .once nightly 01/10/24 01/10/24 lisinopril 20 mg tablet 20 mg PO .once nightly 01/10/24 01/10/24 metformin 500 mg tablet 500 mg PO .once nightly 01/10/24 01/10/24 metoprolol succinate 50 mg 50 mg PO DAILY 01/10/24 01/10/24 tablet,extended release 24 hr mirtazapine 15 mg tablet mg 01/10/24 prednisone 5 mg tablet 5 mg PO DAILY 01/10/24 01/10/24 Allergies Allergy/AdvReac Type Severity Reaction Status Date / Time Sulfa (Sulfonamide Allergy Severe Hives Verified 03/08/24 23:09 Antibiotics) Opioid HPI Opioid Management Most Recent Opioid Data: Last Pain Scale 0 01/10/24 23:55 01/10/24 Review of Systems ROS Status of ROS 10 or more systems reviewed and unremark able except as noted in history and below PFSH PFSH Social History Little interest or pleasure in doing things: not at all Feeling down, depressed, or hopeless: not at all Exam Constitutional Vital Signs, click to edit/add: Last Vital Signs Temp 97.9 F 03/08/24 23:03 Pulse 69 03/08/24 23:03 Resp 16 03/08/24 23:03 BP 173/83 H 03/09/24 01:37 Pulse Ox 96 03/08/24 23:03 O2 Del Method Room Air 03/08/24 23:03 Common normals: no apparent distress, average body habitus, oriented x3, no limitations, healthy appearing, alert and well nourished [facility] Common normals: normocephalic and head/scalp atraumatic Respiratory Common normals: normal respiratory effort, no retractions, no use of accessory muscles and clear to auscultation bilaterally Cardio Common normals: regular rate, regular rhythm, S1 normal heart sound and S2 normal heart sound GI Common normals: Normal to inspection, nondistended, normoactive bowel sounds present, soft to palpation and non-tender Extremity Common normals: normal to inspection and full ROM Neuro Common normals: oriented x3, CN's II-XII intact bilaterally, moves all extremities and no focal motor deficits Psych Appearance: grossly normal Course Vital Signs Vital signs: Vital Signs Temperature 97.9 F 03/08/24 23:03 Pulse Rate 69 03/08/24 23:03 Respiratory Rate 16 03/08/24 23:03 Blood Pressure 221/90 H 03/08/24 23:03 Pulse Oximetry 96 03/08/24 23:03 Oxygen Delivery Method Room Air 03/08/24 23:03 Temperature 97.9 F 03/08/24 23:03 Pulse Rate 69 03/08/24 23:03 Respiratory Rate 16 03/08/24 23:03 Blood Pressure 173/83 H 03/09/24 01:37 Pulse Oximetry 96 03/08/24 23:03 Oxygen Delivery Method Room Air 03/08/24 23:03 Medical Decision Making MDM Narrative Medical decision making narrative: patient presents with Hypertension. states at home BP220 systolic. No chest pain, headache, dizziness or visual changes. Treated in the department and BP now 173/83. Patient is feeling better about his BP and is comfortable going home to follow up with his doctor. EKG without acute changes and troponin neg Lab Data Labs: Lab Results 03/08/24 Range/Units 23:15 WBC 8.8 (4.0-11.0) 10^3/uL RBC 4.19 L (4.70-6.10) 10^6/uL Hgb 12.7 L (14.0-18.0) g/dL Hct 38.9 L (42.0-54.0) % MCV 92.8 (80.0-94.0) fL MCH 30.3 (25.9-34.0) pg MCHC 32.6 (29.9-35.2) g/dL RDW 13.2 (11.0-15.0) % Plt Count 188 (150-450) 10^3/uL MPV 10.5 (9.5-13.5) fL Neut % (Auto) 53.7 (43.0-75.0) % Lymph % (Auto) 30.3 (20.5-60.0) % [place] % (Auto) 8.1 (1.7-12.0) % Eos % (Auto) 6.1 (0.9-7.0) % Baso % (Auto) 1.3 (0.2-2.0) % Neut # (Auto) 4.7 (1.4-6.5) 10^3/uL Lymph # (Auto) 2.7 (1.2-3.8) 10^3/uL [place] # (Auto) 0.7 (0.3-0.8) 10^3/uL Eos # (Auto) 0.5 (0.0-0.7) 10^3/uL Baso # (Auto) 0.1 (0.0-0.1) 10^3/uL Abs Immat Gran (auto) 0.04 H (0.00-0.03) 10^3/uL Imm/Tot Granulo (auto) 0.5 (0.0-0.5) % Sodium 141 (136-145) mmol/L Potassium 3.7 (3.5-5.1) mmol/L Chloride 107 (98-107) mmol/L Carbon Dioxide 26.0 (21.0-32.0) mmol/L Anion Gap 11.7 BUN 14.0 (7.0-18.0) mg/dL Creatinine 1.31 H (0.70-1.30) mg/dL Est GFR ( Amer) >60 (>=60 mL/min/1.73m^2) Est GFR (Non-Af Amer) 52 L (>=60 mL/min/1.73m^2) BUN/Creatinine Ratio 10.7 Glucose 191 H (74-106) mg/dL Calcium 9.0 (8.5-10.1) mg/dL Troponin I High Sens 36.4 (4.0-76.1) pg/mL Discharge Plan Discharge Chief Complaint: Dizziness Clinical Impression: Hypertension Patient Disposition: Home, Self-Care Prescriptions / Home Meds: No Action Xarelto 20 mg tablet 20 mg PO DAILY metformin 500 mg tablet 500 mg PO .once nightly atorvastatin 20 mg tablet 20 mg PO .once nightly metoprolol succinate 50 mg tablet extended release 24 hr 50 mg PO DAILY lisinopril 20 mg tablet 20 mg PO .once nightly prednisone 5 mg tablet 5 mg PO DAILY mirtazapine 15 mg tablet abiraterone 250 mg tablet 500 mg PO DAILY Rx Instructions: must be taken on empty stomach, at least 1 hr before or 2 hrs after a meal/food Print Language: Citizen Of [place] Instructions: Hypertension (ED) Referrals: GABRIEL BELLO [Primary Care Provider] - 1 week
--- NOTE | 2024-03-08 23:26 | PC.NURSE ---
Pt c/o lightheadedness with episodes of hypertension. He has been having increasingly frequent episodes of htn after being started on a new medication for prostate cancer. He states that this happened before with a medication for prostate cancer and the medication was switched to the one he is taking now. His BP was evened out for a short time, but it is starting to increase again. Tonight is the first time it has gone over 200 systolically on this second new medication, and the first time he was symptomatic. He denies any other complaints or symptoms.
[2024-03-08 23:29] LABS: Basophils Absolute Auto 0.1 10^3/uL (0.0-0.1); Basophils Percent Auto 1.3 % (0.2-2.0); Eosinophils Absolute Auto 0.5 10^3/uL (0.0-0.7); Eosinophils Percent Auto 6.1 % (0.9-7.0); Hematocrit 38.9 % (42.0-54.0); Hemoglobin 12.7 g/dL (14.0-18.0); Immature Granulocytes Abs Auto 0.04 10^3/uL (0.00-0.03); Immature Granulocytes Pct Auto 0.5 % (0.0-0.5); Lymphocytes Absolute Auto 2.7 10^3/uL (1.2-3.8); Lymphocytes Percent Auto 30.3 % (20.5-60.0); Mean Corpuscular HGB Conc 32.6 g/dL (29.9-35.2); Mean Corpuscular Hemoglobin 30.3 pg (25.9-34.0); Mean Corpuscular Volume 92.8 fL (80.0-94.0); Mean Platelet Volume 10.5 fL (9.5-13.5); Monocytes Absolute Auto 0.7 10^3/uL (0.3-0.8); Monocytes Percent Auto 8.1 % (1.7-12.0); Neutrophils Absolute Auto 4.7 10^3/uL (1.4-6.5); Neutrophils Percent Auto 53.7 % (43.0-75.0); Platelet Count 188 10^3/uL (150-450); Red Blood Count 4.19 10^6/uL (4.70-6.10); Red Cell Distribution Width 13.2 % (11.0-15.0); White Blood Count 8.8 10^3/uL (4.0-11.0)
[2024-03-08] MEDS: LABETALOL HCL 20 MG/4 ML SYRINGE IVP (23:30)
[2024-03-08 23:45] LABS: Anion Gap 11.7; BUN Creatinine Ratio 10.7; Chloride 107 mmol/L (98-107); Estimated GFR (African America >60 (>=60 mL/min/1.73m^2); Estimated GFR (Non-African Ame 52 (>=60 mL/min/1.73m^2); Glucose 191 mg/dL (74-106); Potassium 3.7 mmol/L (3.5-5.1); Sodium 141 mmol/L (136-145); Troponin I High Sensitivity 36.4 pg/mL (4.0-76.1)
[2024-03-09 00:03] VITALS: BP 178/82
[2024-03-09 00:32] VITALS: BP 184/85
[2024-03-09 00:45] VITALS: BP 168/85
[2024-03-09] MEDS: LABETALOL HCL 20 MG/4 ML SYRINGE 10 MG IVP (01:08)
[2024-03-09 01:37] VITALS: BP 173/83
== END 2024-03-09 01:45 | disposition home or self-care (01) ==
PROVIDERS: Emergency Provider Internal Medicine; PCP Internal Medicine
DX: I10 Essential (primary) hypertension (principal)
CPT/HCPCS: 36415; 80048; 84484; 85025; 93005; 96374; 96376; 99284; J1920

== ENCOUNTER 2024-03-13 07:16 | Outpatient (OUT) | payer MEDICARE, SELFPAY ==
--- OUTSIDE RECORDS SUMMARY | 2024-03-13 07:20 | XMS_ITS | CCD ---
Author Organization [facility] [employer]ini[employer]ne Care Team Providers Care 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 Name Role Phone Gabriel Bello Primary Care [...] Care Provider MD Jj Garcia Attending Provider [phone] Gabriel Bello DO Primary Care Provider [phone] DO Gabriel Bello Primary Care Provider NON [...] Translations: [Sulfa Drugs] Allergy to drug (finding) [place] [address] DO Work Phone: (6 sources) Sulfonamides (Antibiotic); Translations: [Sulfa (Sulfonamide Antibiotics)] Allergy to substance 2 [facility] (1 source) Sulfonamides (Antibiotic) Drug allergy (disorder) [facility] Repository (2 sources) Substance with sulfonamide structure and antibacterial mechanism of action (substance) Drug allergy Unknown [employer] [facility] [employer] Other (2 sources) abiraterone; Translations: [ABIRATERONE] Drug Allergy 4 [facility] 3 Repository Medications Current Medications Medication Drug Class(es) Dates Sig (Normalized) Sig (Original) amylase 452649 unt / lipase 42108 unt / protease 33453 unt delayed release oral capsule (3 sources) Start: 11-17-2022 take 1 capsule by mouth three times daily at mealtime noktny-snxluyls-lr ylase (Creon) 24,000-76,000 -120,000 unit capsule Take 1 capsule by mouth 3 times a day with meals. 0 11/17/2022 Active Start: 11-17-2022 Creon 67511-30 000 UNIT 1 with each meal Orally [...] December 05, 2021 12:00am polyethylene glycol 3350 563969 mg / potassium chloride 2970 mg / sodium bicarbonate 6740 mg / sodium chloride 5860 mg / sodium sulfate 15066 mg powder for oral solution (2 sources) [...] mouth see administration instructions. 0 Active Vit C,Z-Ft-Wnrbp-Lutein -Zeaxan (Preservision Areds-2) 250-90-40-1 mg Capsule (3 sources) Start: 12-05-2021 Vit C,I-Nv-Jpmqd-Lutein- Zeaxan (Preservision Areds-2) 250-90-40-1 mg Capsule Active 1 TAB PO Every morning December 05, 2021 12:47pm Start: 12-05-2021 Vit C,E-Zn-Comparison Shopper uh-Tgboff-Vcnhys (Preservision Areds-2) 250-90-40-1 mg Capsule Active 1 [...] ascorbic acid 226 mg / beta carotene 45689 unt / cuprous oxide 0.8 mg / [...] anticoagulants] Episodic Other aftercare (3 sources) Other rn long term care (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; Translations: [OTH RN LABOR DELIVERY CURRENT DRUG THERAPY] Onset: 2 Episodic Other aftercare (2 sources) medical terminologist (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 of anticoagulants; Translations: [correction (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 of anticoagulants] Onset: 4 Episodic [...] COM PLETEon 02-21-2024 TRANSTHORACIC ECHO (TTE) COMPLETE [address], [address] [address] TRANSTHORACIC ECHOCARDIOGRAM REPORT Patient Name: DEV Kim Physician: [id number] Marina Goldsmith MD Study Date: 02/21/2024 Ordering Provider: [id number] ASHLEY KHOURY MRN/PID: [id number] Fellow: Nurse: Date of /Age: 1 1940 / 83 years Mason Tender: Jyoti Gutiérrez RD, T Gender: M Additional Staff: Height: 180.34 cm Admit Date: Weight: 77.11 kg Admission Status: BSA / BMI: 1.97 m2 / 23.71 kg/m2 Department Location: [facility] Blood Pressure: 142 /84 mmHg Study Type: TRANSTHORACIC ECHO (TTE) COMPLETE Diagnosis/ICD: 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; Paroxysmal atrial fibrillation-I48.0 Indication: Diabetes, HTN, Hyperlipidemia, Murmur, Former Smoker, Prostate Cancer with Metastases, CKD-Stage III CPT Codes: Echo Complete w Full Doppler-73706 Study Detail: The following Echo studies were [...] mmHg PIEDV: 2.08 m/s PADP: 20.3 mmHg [id number] Marina Goldsmith MD Electronically signed on 02/21/2024 at 2:06:09 PM Final [facility] NUCLEAR STRESS TESTon 2023 NUCLEAR STRESS TEST Interpreted By: Clarissa Sanchez and Giannuzzi Michael STUDY: MYOCARDIAL PERFUSION STRESS TEST WITH EXERCISE Performing facility: [facility], [address] [place] [address], [address], [place] [address] [facility] Provider: Ashley Khoury MD, FACC PCP: Dr. Trang Bello Supervising provider: Marina Goldsmith MD INDICATION: Abnormal EKG; PVC Murmur HISTORY: Gender: M; Age: 83 y/o ; Height: HT 180.3 cm cm; Weight: WT 77.111 kg kg. Abnormal EKG; High Cholesterol; Diabetes; HTN; Arrhythmias; A-fib Quit smoking 34 years ago. COMPARISON: Previous nuclear testing completed [id number] at [facility]. ACCESSION NUMBER(S): [id number] ORDERING CLINICIAN: ASHLEY KHOURY TECHNIQUE: ONE DAY [...] Clarissa Sanchez 02/07/2024 4:47 PM Dictation workstation: [id number] [facility] Comment on above: Order Comment: Start with exercise, may switch to alfonso PET psma initial tx sb-mton 09-13-2023 PET psma initial tx sb-mt [facility] [place] [address] [place] [address] Nuclear Medicine Report Signed Patient: Dev Walsh MR#: [id number] 906 : 1940 Acct:[id number] Age/Sex: 83 / M ADM Date: 09/13/23 Loc: Room: Type: [facility] Attending Dr: SYLWIA STAFF Copies to: [...] 1515 Signed By: 09/13/23 152 Normal [facility] ECG 12 Leadon 07-13-2023 Sinus rhythm with frequent PVCs Otherwise normal EKG QTc 444 ms [facility] Work Phone: Joni 12-24-2022 L - -------- Specimen: [id number] Received: 12/24/22 Status: DEONDRE Cunninghamdia Num: [id number] Spec Type: Surgical Subm Dr: Jj Garcia MD Tissues: A Colon Biopsy (RANDOM COLON) B Colon Biopsy (ASCENDING POLYP) Procedures: HEATHER/Lizett Alexander/Saurabh L4/2 -------- Age/ Patient Sex Location Account Attending Physician -------- Dev Walsh 82/M [id number] Jj Garcia MD -------- SPEC NUM: [id number] RECD: 12/24/22 STATUS: DEONDRE MAC NUM: [id number] JARRET: 12/24/22- [facility] DR: Jj Garcia MD ENTERED: 12/24/[address] [facility] DR: SPEC TYPE: Surgical DEPT: S [...] in one cassette labeled B1. -------- Specimen: [id number] Received: 12/24/22 Status: ALEXABrendon Lewis Num: [id number] Spec Type: Surgical Subm Dr: Jj Garcia MD Tissues: A Colon Biopsy (RANDOM COLON) B Colon Biopsy (ASCENDING POLYP) Procedures: HE/4, Gross/Micro L4/2 -------- Patient: Dev Walsh [id number] (Continued) -------- Specimen: [id number] Received: 12/24/22 (Continued) Signed (signature on file) Natan Davidson MD 12/29/22 1658 -------- Specimen: [id number] Received: 12/24/22 Status: DEONDRE Lewis Num: [id number] Spec Type: Surgical Subm Dr: Jj Garcia MD Tissues: A Colon Biopsy (RANDOM COLON) B Colon Biopsy (ASCENDING POLYP) Procedures: HEATHER/Catherine, Lizett/Saurabh L4/2 -------- Patient: Dev Walsh [id number] (Continued) -------- Specimen: [id number] Received: 12/24/22 (Continued) Microscopic Description A. Two H E slides reviewed. The microscopic examination confirms the diagnosis. B. Two H E slides reviewed. The microscopic examination confirms the diagnosis. CPT Codes 39484g8 -------- -------- Specimen: [id number] Received: 12/24/22 Status: DEONDRE Lewis Num: [id number] Spec Type: Surgical Subm Dr: Jj Garcia MD Tissues: A Colon Biopsy (RANDOM COLON) B Colon Biopsy (ASCENDING POLYP) Procedures: HE/4, Gross/Micro L4/2 -------- Patient: Dev Walsh [id number] (Continued) -------- Signed (signature on file) Natan Davidson MD 12/29/22 1658 Normal [facility] Blood Urea Nitrogenon 2022 Urea nitrogen [Mass/Vol] 31 mg/dL High 7-25 [facility] Comment on above: Order Comment: Reaso n for Exam Change in bowel habits Performed By: #### T SH3, BUN, CREAT #### [address] C reactive protein [Mass/vol ume] in Serum or PlasmaOrdered By: Jj Garcia on 11-26-2022 CRP [Mass/Vol] < 0.5 mg/dL 0.0-0.5 [facility] C-Reactive Proteinon 023 CRP [Mass/Vol] mg/L Normal 0.0-0.5 [facility] Comment on above: Order Comment: Reaso n for Exam Change in bowel habits Result Comment: PERF ORMED BY: [place] [address] PATHOLOGIST TIMBER MANAGEMENT SPECIALIST WILMA MANTILLA M.D. Performed By: #### C RP, ESR #### [facility] [address] [place] [address] [place] #### HIV SCREEN #### [facility] , CT abdomen pelvis w conon CT abdomen pelvis w con [facility] [place] [address] [place] [address] CT Scan Report Signed Patient: Dev Walsh MR#: [id number] 906 : 1940 Acct:[id number] Age/Sex: 82 / M ADM Date: 11/26/22 Loc: CT Room: Type: [facility] Attending Dr: Jj Garcia MD Copies [...] Mandujano Jr., D.O.11/26/2022 7:19 PM Dictation Location: [place] [address] Transcribed By: [facility] 11/26/221918 Dictated By: Jered Mandujano Jr, DO 11/26/221906 Signed By: 11/26/221918 Normal [facility] Creatinineon 11-26-2022 Creatinine [Mass/Vol] 1.55 mg/dL High 0.70-1.30 [facility] Comment on above: Order Comment: Reaso n for Exam Change in bowel habits Performed By: #### T SH3, BUN, CREAT #### [facility] [address] [place] [address] GFR/1.73 sq M.predicted MDRD (S/P/Bld) [Vol rate/Area] 43.863 mL/min/{1.73_m2} Normal [facility] Comment on above: Order Comment: Reaso n for Exam Change in bowel habits Performed By: #### T SH3, BUN, CREAT #### [address] Creatinine [Mass/volume] in Serum or PlasmaOrdered By: Gabriel Bello on 11-26-2022 Creatinine [Mass/Vol] 1.55 mg/dL 0.70-1.30 [facility] Erythrocyte Sedimentation Ra juli 11-26-2022 ESR (Bld) [Velocity] 18 mm/h Normal 0-19 [facility] Comment on above: Order Comment: Reaso n for Exam Change in bowel habits Result Comment: PERF ORMED BY: [place] [address] PATHOLOGIST TIMBER MANAGEMENT SPECIALIST WILMA MANTILLA M.D. Performed By: #### C RP, ESR #### [address] #### HIV SCREEN #### [facility] , Erythrocyte sedimentation ra te by Photometric methodOrdered By: Jj Garcia on 11-26-2022 ESR Photometric method (Bld) [Velocity] 18 mm/hr 0-19 [facility] HIV 1/O/2 Antigen/Antibodyon 11-26-2022 HIV Screen 4th Generation Non-Reactive Normal Non Reactive [facility] Comment on above: Order Comment: Reaso n for Exam Change in bowel habits Result Comment: HIV Negative HIV-1/HIV-2 antibodies and HIV-1 p24 antigen were NOT detected. There is no laboratory evidence of HIV infection. Performed at: - [facility] [id number] Tracer Clerk: Miguel Cullen PhD, Phone: [phone] PERFORMED BY: [place] [address] PATHOLOGIST TIMBER MANAGEMENT SPECIALIST WILMA MANTILLA M.D. Performed By: #### C RP, ESR #### [address] [place] [address] [place] #### HIV SCREEN #### [facility] , No Panel InformationOrdered By: Gabriel Bello on 11-26-2022 Estimated GFR (CKD-EPI) 43.863 mL/Min [facility] Creatinine Clearance (Chem N/A [facility] Thyroid Stimulating Hormoneo n 11-26-2022 TSH Qn 1.23 m[IU]/L Normal 0.45-5.33 [facility] Comment on above: Order Comment: Reaso n for Exam Change in bowel habits Result Comment: PERF ORMED BY: [place] [address] PATHOLOGIST TIMBER MANAGEMENT SPECIALIST WILMA MANTILLA M.D. Performed By: #### T SH3, BUN, CREAT #### [facility] [address] [place] [address] Thyrotropin [Units/volume] i n Serum or PlasmaOrdered By: Jj Garcia on 11-26-2022 TSH Qn 1.23 m[IU]/L 0.45-5.33 [facility] Urea nitrogen [Mass/volume] in Serum or PlasmaOrdered By: Gabriel Bello on 11-26-2022 Urea nitrogen [Mass/Vol] 31 mg/dL 12-15 [facility] PANCREATIC ELASTASE FECALon 09-08-2022 Pancreatic Elastase, Fecal 86 ug Elast./g Critically low >200 [facility] Comment on above: Result Comment: Re sults verified by repeat testing Severe Pancreatic Insufficiency: <100 Moderate Pancreatic Insufficiency: 100 - 200 Normal: >200 Performed By: #### L IPID, TSH, CMP #### [facility] [address] [place] [address] [address] Leesa Urbina CELIAC ANTIBODIES PROFILEon 09-04-2022 Deamidated Gliadin Abs, IgA 8 units Normal 0-19 [facility] Comment on above: Result Comment: Nega tive 0 - 19 Weak Positive 20 - 30 Moderate to Strong Positive >30 Performed By: #### C ELIACP #### [facility] [address] [place] [address] [address] Leesa Urbina Deamidated Gliadin Abs, IgG 4 units Normal 0-19 [facility] Comment on above: Result Comment: Nega tive 0 - 19 Weak Positive 20 - 30 Moderate to Strong Positive >30 Performed By: #### C ELIACP #### [facility] [address] [place] [address] Dr. Leesa Urbina Endomysial Antibody IgA Negative Normal Negative [facility] Comment on above: Performed By: #### C ELIACP #### [facility] [address] [place] [address] [address] Leesa Urbina Immunoglobulin A, Qn, Serum 143 mg/dL Normal 61-437 [facility] Comment on above: Performed By: #### C ELIACP #### [facility] [address] [place] [address] Dr. Leesa Urbina t-Transglutaminase (tTG) IgA <2 Normal 0-3 [facility] Comment on above: Result Comment: Nega tive 0 - 3 Weak Positive 4 - 10 Positive >10 . Tissue Transglutaminase (tTG) has been identified as the endomysial antigen. Studies have demonstr- ated that endomysial IgA antibodies have over 99% specificity for gluten sensitive enteropathy. Performed By: #### C ELIACP #### [facility] [address] [place] [address] Dr. Leesa Urbina t-Transglutaminase (tTG) IgG 6 U/mL Critically high 0-5 [facility] Comment on above: Result Comment: Nega tive 0 - 5 Weak Positive 6 - 9 Positive >9 Performed By: #### C ELIACP #### [facility] [address] [place] [address] Dr. Leesa Urbina CBC AUTO DIFFon 09-03-2022 BASO # 0.1 103/ul Normal 0.0-0.1 [facility] Comment on above: Performed By: #### L IPID, TSH, CMP #### [facility] [address] [address] [address] Leesa Urbina Basophils/100 WBC (Bld) 1.1 % Normal 0.2-2.0 [facility] Comment on above: Performed By: #### L IPID, TSH, CMP #### [facility] [address] [place] [address] Dr. Leesa Urbina EO # 0.6 103/ul Normal 0.0-0.7 [facility] Comment on above: Performed By: #### L IPID, TSH, CMP #### [facility] [address] [place] [address] Dr. Leesa Urbina Eosinophils/100 WBC (Bld) 7.9 % Critically high 0.9-7.0 [facility] Comment on above: Performed By: #### L IPID, TSH, CMP #### [facility] [address] [place] [address] Dr. Leesa Urbina Erythrocyte distribution width (RBC) [Ratio] 13.6 % Normal 11.0-15.0 [facility] Comment on above: Performed By: #### L IPID, TSH, CMP #### [facility] [address] [place] [address] Dr. Leesa Urbina Hematocrit (Bld) [Volume fraction] 34.4 % Critically low 42.0-54.0 [facility] Comment on above: Performed By: #### L IPID, TSH, CMP #### [facility] [address] [place] [address] Dr. Leesa Urbina Hemoglobin (Bld) [Mass/Vol] 11.4 g/dL Critically low 14.0-18.0 [facility] Comment on above: Performed By: #### L IPID, TSH, CMP #### [facility] [address] [place] [address] Dr. Leesa Urbina IG # 0.02 10e3/ul Normal 0.00-0.03 [facility] Comment on above: Performed By: #### L IPID, TSH, CMP #### [facility] [address] [place] [address] Dr. Leesa Urbina IG % 0.3 % Normal 0.0-0.5 [facility] Comment on above: Performed By: #### L IPID, TSH, CMP #### [facility] [address] [place] [address] [address] Leesa Urbina LYMPH # 2.1 103/ul Normal 1.2-3.8 [facility] Comment on above: Performed By: #### L IPID, TSH, CMP #### [facility] [address] [address] [address] Leesa Urbina Lymphocytes/100 WBC (Bld) 28.1 % Normal 20.5-60.0 [facility] Comment on above: Performed By: #### L IPID, TSH, CMP #### [facility] [address] [place] [address] [address] Leesa Urbina MANUAL DIFF REQ NO Normal [facility] Comment on above: Performed By: #### L IPID, TSH, CMP #### [facility] [address] [place] [address] Dr. Leesa Urbina MCH (RBC) [Entitic mass] 31.1 pg Normal 25.9-34.0 [facility] Comment on above: Performed By: #### L IPID, TSH, CMP #### [facility] [address] [place] [address] Dr. Leesa Urbina MCHC (RBC) [Mass/Vol] 33.1 g/dL Normal 29.9-35.2 [facility] Comment on above: Performed By: #### L IPID, TSH, CMP #### [facility] [address] [place] [address] Dr. Leesa Urbina MCV (RBC) [Entitic vol] 93.7 fL Normal 80.0-94.0 [facility] Comment on above: Performed By: #### L IPID, TSH, CMP #### [facility] [address] [place] [address] Dr. Leesa Urbina MONO # 0.4 103/ul Normal 0.3-0.8 [facility] Comment on above: Performed By: #### L IPID, TSH, CMP #### [facility] [address] [place] [address] Dr. Leesa Urbina Monocytes/100 WBC (Bld) 6.0 % Normal 1.7-12.0 [facility] Comment on above: Performed By: #### L IPID, TSH, CMP #### [facility] [address] [place] [address] [address] Leesa Urbina NEUT # 4.2 103/ul Normal 1.4-6.5 [facility] Comment on above: Performed By: #### L IPID, TSH, CMP #### [facility] [address] [place] [address] Dr. Leesa Urbina Neutrophils/100 WBC (Bld) 56.6 % Normal 43.0-75.0 [facility] Comment on above: Performed By: #### L IPID, TSH, CMP #### [facility] [address] [place] [address] Dr. Leesa Urbina Platelet mean volume (Bld) [Entitic vol] 10.1 fL Normal 9.5-13.5 [facility] Comment on above: Performed By: #### L IPID, TSH, CMP #### [facility] [address] [place] [address] Dr. Leesa Urbina PLT 195 103/ul Normal 150-450 [facility] Comment on above: Performed By: #### L IPID, TSH, CMP #### [facility] [address] [place] [address] Dr. Leesa Urbina RBC 3.67 106/ul Critically low 4.70-6.10 [facility] Comment on above: Performed By: #### L IPID, TSH, CMP #### [facility] [address] [place] [address] Dr. Leesa Urbina WBC 7.3 103/ul Normal 4.0-11.0 [facility] Comment on above: Performed By: #### L IPID, TSH, CMP #### [facility] [address] [place] [address] Dr. Leesa Urbina FERRITINon 09-03-2022 Ferritin [Mass/Vol] 44.0 ng/mL Normal 26.0-388.0 [facility] Comment on above: Performed By: #### F ERR, FETIBC #### [facility] [address] [place], [place] [address] Dr. Leesa Urbina IRON AND TIBCon 09-03-2022 % SATURATION 23.5 % Normal [facility] Comment on above: Performed By: #### F ERR, FETIBC #### [facility] [address] [address] [address] Leesa Urbina Iron [Mass/Vol] 69.0 ug/dL Normal 65.0-175.0 [facility] Comment on above: Performed By: #### F ERR, FETIBC #### [facility] [address] [place] [address] [address] Leesa Urbina TIBC DIRECT 294.0 ug/dL Normal 250.0-450.0 [facility] Comment on above: Performed By: #### F ERR, FETIBC #### [facility] [address] [place] [address] [address] Leesa Urbina Office Visit (Cardiology)on 07-14-2022 Follow-up visit Diagnoses/Problems Assessed Anticoagulated (V58.61) (Z79.01) Benign essential hypertension (401.1) (I10) Hyperlipidemia (272.4) (E78.5) Paroxysmal atrial fibrillation (427.31) (I48.0) Diabetes mellitus (250.00) (E11.9) Body mass index (BMI) of 24.0 to 24.9 in adult (V85.1) (Z68.24) Never a smoker Orders SocHx: Never a smoker Tobacco Use Screening; Status:Complete; Done: [id number] Patient Instructions Please bring all medicines, vitamins, [...] negative for complaint. Vitals Vital Signs Recorded: [id number] 09:08AM Heart Rate68, L Radial Jfwvibrr466, LUE, Sitting Pxkzhgdhh51, LUE, Sitting Height5 ft 11 in Uhfpip550 lb BMI Mfbgcnojbz82.13 kg/m2 BSA Calculated1.98 Tobacco Useb) No PHQ-2 [...] Jul 14 2022 10:20AM EST (Author) Normal [employer] Tobacco Screening.on 023 Adult depression screening assessment No [facility] y 250 DO Work Phone: Fall risk assessment a) No falls within the last year [facility] [facility] 250 DO Work Phone: Tobacco use status CP b) No [facility] [address] 250 DO Work Phone: CBC AUTO DIFFon 05-06-2022 BASO # 0.1 103/ul Normal 0.0-0.1 [facility] Comment on above: Performed By: #### C BC #### [facility] [address] [place] [address] Dr. Leesa Urbina Basophils/100 WBC (Bld) 1.4 % Normal 0.2-2.0 [facility] Comment on above: Performed By: #### C BC #### [facility] [address] [place] [address] [address] [address] Leesa Urbina EO # 0.4 103/ul Normal 0.0-0.7 [facility] Comment on above: Performed By: #### C BC #### [facility] [address] [place] [address] Dr. Leesa Urbina Eosinophils/100 WBC (Bld) 5.4 % Normal 0.9-7.0 [facility] Comment on above: Performed By: #### C BC #### [facility] [address] [place] [address] Dr. Leesa Urbina Erythrocyte distribution width (RBC) [Ratio] 13.3 % Normal 11.0-15.0 [facility] Comment on above: Performed By: #### C BC #### [facility] [address] [place] [address] Dr. Leesa Urbina Hematocrit (Bld) [Volume fraction] 35.8 % Critically low 42.0-54.0 [facility] Comment on above: Performed By: #### C BC #### [facility] [address] [place] [address] Dr. Leesa Urbina Hemoglobin (Bld) [Mass/Vol] 12.0 g/dL Critically low 14.0-18.0 [facility] Comment on above: Performed By: #### C BC #### [facility] [address] [place] [address] Dr. Leesa Urbina IG # 0.01 10e3/ul Normal 0.00-0.03 [facility] Comment on above: Performed By: #### C BC #### [facility] [address] [place] [address] Dr. Leesa Urbina IG % 0.2 % Normal 0.0-0.5 [facility] Comment on above: Performed By: #### C BC #### [facility] [address] [place] [address] Dr. Leesa Urbina LYMPH # 1.7 103/ul Normal 1.2-3.8 [facility] Comment on above: Performed By: #### C BC #### [facility] [address] [place] [address] Dr. Leesa Urbina Lymphocytes/100 WBC (Bld) 26.1 % Normal 20.5-60.0 [facility] Comment on above: Performed By: #### C BC #### [facility] [address] [place] [address] Dr. Leesa Urbina MANUAL DIFF REQ NO Normal [facility] Comment on above: Performed By: #### C BC #### [facility] [address] [place] [address] Dr. Leesa Urbina MCH (RBC) [Entitic mass] 31.0 pg Normal 25.9-34.0 [facility] Comment on above: Performed By: #### C BC #### [facility] [address] [place] [address] Dr. Leesa Urbina MCHC (RBC) [Mass/Vol] 33.5 g/dL Normal 29.9-35.2 [facility] Comment on above: Performed By: #### C BC #### [facility] [address] [place] [address] Dr. Leesa Urbina MCV (RBC) [Entitic vol] 92.5 fL Normal 80.0-94.0 [facility] Comment on above: Performed By: #### C BC #### [facility] [address] [place] [address] Dr. Leesa Urbina MONO # 0.4 103/ul Normal 0.3-0.8 [facility] Comment on above: Performed By: #### C BC #### [facility] [address] [place] [address] Dr. Leesa Urbina Monocytes/100 WBC (Bld) 6.5 % Normal 1.7-12.0 [facility] Comment on above: Performed By: #### C BC #### [facility] [address] [place] [address] Dr. Leesa Urbina NEUT # 4.0 103/ul Normal 1.4-6.5 [facility] Comment on above: Performed By: #### C BC #### [facility] [address] [place] [address] Dr. Leesa Urbina Neutrophils/100 WBC (Bld) 60.4 % Normal 43.0-75.0 [facility] Comment on above: Performed By: #### C BC #### [facility] [address] [address] [address] Leesa Urbina Platelet mean volume (Bld) [Entitic vol] 10.6 fL Normal 9.5-13.5 [facility] Comment on above: Performed By: #### C BC #### [facility] [address] [address] [address] Leesa Urbina PLT 185 103/ul Normal 150-450 [facility] Comment on above: Performed By: #### C BC #### [facility] [address] [address] [address] Leesa Urbina RBC 3.87 106/ul Critically low 4.70-6.10 [facility] Comment on above: Performed By: #### C BC #### [facility] [address] [address] [address] Leesa Urbina WBC 6.6 103/ul Normal 4.0-11.0 [facility] Comment on above: Performed By: #### C BC #### [facility] [address] [address] [address] Leesa Urbina GLYCOHEMOGLOBIN A1Con 2021 ADA RECOMMENDATION SEE BELOW Normal [facility] Comment on above: Result Comment: ADA RECOMMENDED LIMIT 4.0 - 6.0 ADA THERAPEUTIC TARGET < 7.0 ACTION SUGGESTED > 7.0 Performed By: #### A 1C #### [facility] [address] [address] [address] Leesa Urbina Glucose [Mass/Vol] 151 mg/dL Normal [facility] Comment on above: Performed By: #### A 1C #### [facility] [address] [address] [address] Leesa Urbina HbA1c (Bld) [Mass fraction] 6.9 % Critically high 4.5-6.2 [facility] Comment on above: Performed By: #### A 1C #### [facility] [address] [address] [address] Leesa Urbina LIPID PROFILEon 12-14-2022 CHOL-HDL RATIO NORM SEE BELOW Normal [facility] Comment on above: Result Comment: 3.3 - 4.4 LOW RISK 4.4 - 7.1 AVERAGE RISK 7.1 - 11.0 MODERATE RISK >11.0 HIGH RISK Performed By: #### L IPID, TSH, CMP #### [facility] [address] [address] [address] Leesa Urbina Cholesterol [Mass/Vol] 136 mg/dL Normal <=200 [facility] Comment on above: Performed By: #### L IPID, TSH, CMP #### [facility] [address] [address] [address] Leesa Urbina Cholesterol in HDL [Mass/Vol] 62 mg/dL Critically high 40-60 [facility] Comment on above: Performed By: #### L IPID, TSH, CMP #### [facility] [address] [address] [address] Leesa Urbina Cholesterol in LDL [Mass/Vol] 53.0 mg/dL Normal [facility] Comment on above: Performed By: #### L IPID, TSH, CMP #### [facility] [address] [address] [address] Leesa Urbina Cholesterol.total/Chol esterol in HDL [Mass ratio] 2.2 {ratio} Normal [facility] Comment on above: Performed By: #### L IPID, TSH, CMP #### [facility] [address] [address] [address] Leesa Urbina HDL NORMAL > or = 60 mg/dl - LO W CARDIOVASCULAR RISK <40 mg/dl - HIGH CARDIOVASCULAR RISK Normal [facility] Comment on above: Performed By: #### L IPID, TSH, CMP #### [facility] [address] [address] [address] Leesa Urbina LDL CALC NORMAL SEE BELOW Normal [facility] Comment on above: Result Comment: <100 mg/dl OPTIMAL 100 - 129 mg/dl NEAR OR ABOVE OPTIMAL 130 - 159 mg/dl BORDERLINE HIGH 160 - 189 mg/dl HIGH >190 mg/dl VERY HIGH Performed By: #### L IPID, TSH, CMP #### [facility] [address] [address] [address] Leesa Urbina Triglyceride [Mass/Vol] 105 mg/dL Normal <=150 [facility] Comment on above: Performed By: #### L IPID, TSH, CMP #### [facility] [address] [address] [address] Leesa Urbina VLDL CALC 21.0 mg/dL Normal [facility] Comment on above: Performed By: #### L IPID, TSH, CMP #### [facility] [address] [address] [address] Leesa Urbina PROF 14(COMP METB)on 022 Albumin [Mass/Vol] 3.4 g/dL Normal 3.4-5.0 [facility] Comment on above: Performed By: #### L IPID, TSH, CMP #### [facility] [address] [place] [address] Dr. Leesa Urbina Albumin/Globulin [Mass ratio] 1.1 {ratio} Normal [facility] Comment on above: Performed By: #### L IPID, TSH, CMP #### [facility] [address] [place] [address] Dr. Leesa Urbina ALP [Catalytic activity/Vol] 77 U/L Normal 46-116 [facility] Comment on above: Performed By: #### L IPID, TSH, CMP #### [facility] [address] [place] [address] Dr. Leesa Urbina ALT [Catalytic activity/Vol] 12 U/L Critically low 16-63 [facility] Comment on above: Performed By: #### L IPID, TSH, CMP #### [facility] [address] [address] [address] Leesa Urbina Anion gap [Moles/Vol] 12.7 mmol/L Normal [facility] Comment on above: Performed By: #### L IPID, TSH, CMP #### [facility] [address] [address] [address] Leesa Urbina AST [Catalytic activity/Vol] 19 U/L Normal 15-37 [facility] Comment on above: Performed By: #### L IPID, TSH, CMP #### [facility] [address] [place] [address] Dr. Leesa Urbina Bilirubin [Mass/Vol] 0.4 mg/dL Normal 0.2-1.0 [facility] Comment on above: Performed By: #### L IPID, TSH, CMP #### [facility] [address] [place] [address] Dr. Leesa Urbina Calcium [Mass/Vol] 8.5 mg/dL Normal 8.5-10.1 [facility] Comment on above: Performed By: #### L IPID, TSH, CMP #### [facility] [address] [place] [address] Dr. Leesa Urbina Chloride [Moles/Vol] 107 mmol/L Normal 98-107 [facility] Comment on above: Performed By: #### L IPID, TSH, CMP #### [facility] [address] [place] [address] Dr. Leesa Urbina CO2 [Moles/Vol] 27.4 mmol/L Normal 21.0-32.0 [facility] Comment on above: Performed By: #### L IPID, TSH, CMP #### [facility] [address] [place] [address] Dr. Leesa Urbina Creatinine [Mass/Vol] 1.06 mg/dL Normal 0.70-1.30 [facility] Comment on above: Performed By: #### L IPID, TSH, CMP #### [facility] [address] [place] [address] Dr. Leesa Urbina EGFR-AF BURUNDIAN >60 Normal >=60 [facility] Comment on above: Performed By: #### L IPID, TSH, CMP #### [facility] [address] [place] [address] Dr. Leesa Urbina EGFR-NON AF BURUNDIAN >60 Normal >=60 [facility] Comment on above: Performed By: #### L IPID, TSH, CMP #### [facility] [address] [place] [address] Dr. Leesa Urbina Globulin (S) [Mass/Vol] 3.1 g/dL Normal [facility] Comment on above: Performed By: #### L IPID, TSH, CMP #### [facility] [address] [address] [address] Leesa Urbina Glucose [Mass/Vol] 171 mg/dL Critically high 74-106 T [facility] Comment on above: Performed By: #### L IPID, TSH, CMP #### [facility] [address] [place] [address] Dr. Leesa Urbina Potassium [Moles/Vol] 4.1 mmol/L Normal 3.5-5.1 [facility] Comment on above: Performed By: #### L IPID, TSH, CMP #### [facility] [address] [place] [address] Dr. Leesa Ubrina Protein [Mass/Vol] 6.5 g/dL Normal 6.4-8.2 [facility] Comment on above: Performed By: #### L IPID, TSH, CMP #### [facility] [address] [place] [address] Dr. Leesa Urbina Sodium [Moles/Vol] 143 mmol/L Normal 136-145 [facility] Comment on above: Performed By: #### L IPID, TSH, CMP #### [facility] [address] [place] [address] Dr. Leesa Urbina Urea nitrogen [Mass/Vol] 24.0 mg/dL Critically high 7.0-18.0 [facility] Comment on above: Performed By: #### L IPID, TSH, CMP #### [facility] [address] [place] [address] Dr. Leesa Urbina Urea nitrogen/Creatinine [Mass ratio] 22.6 mg/mg Normal [facility] Comment on above: Performed By: #### L IPID, TSH, CMP #### [facility] [address] [place] [address] Dr. Leesa Urbina Basophils Auto (Bld) [#/Vol] Ordered By: Juan Ventura on 12-05-2021 Basophils (Bld) [#/Vol] 0.1 10*3/uL 0.0-0.2 [facility] Basophils/100 WBC Auto (Bld) Ordered By: Juan Ventura on 12-05-2021 Basophils/100 WBC (Bld) 0.9 % [facility] Blood hemoglobin measurement (mass/volume)Ordered By: Juan Ventura on 12-05-2021 Hemoglobin (Bld) [Mass/Vol] 12.4 g/dL 13.0-17.0 [facility] Blood leukocytes automated c ount (number/volume)Ordered By: Juan Ventura on 12-05-2021 WBC (Bld) [#/Vol] 7.0 10*3/uL 4.5-11.0 [facility] COVID-19 Positive/NegativeOr dered By: Juan Ventura on 12-05-2021 SARS-CoV-2 (COVID-19) N gene RENETTA+probe Ql (Resp) Negative Negative [facility] Comment on above: Testing for SARS-CoV -2 by RT-PCR This test was developed and its performance characteristics determined by [employer] [facility]) and validated at the [facility]. This test has not been FDA [...] on 12-05-2021 Creatinine [Mass/Vol] 1.28 mg/dL 0.64-1.27 [facility] Eosinophils Auto (Bld) [#/Vo l]Ordered By: Juan Ventura on 12-05-2021 Eosinophils (Bld) [#/Vol] 0.1 10*3/uL 0.0-0.45 [facility] Eosinophils/100 WBC Auto (Bl d)Ordered By: Juan Ventura on 12-05-2021 Eosinophils/100 WBC (Bld) 2.1 % [facility] Erythrocyte distribution wid th Auto (RBC) [Ratio]Ordered By: Juan Ventura on 12-05-2021 Erythrocyte distribution width (RBC) [Ratio] 14.6 % 12.0-14.8 [facility] Estimated glomerular filtrat ion rate (GFR) non- AmericanOrdered By: Juan Ventura on 12-05-2021 GFR/1.73 sq M.predicted among non-blacks MDRD (S/P/Bld) [Vol rate/Area] 54 mL/Min [facility] Hematocrit Auto (Bld) [Volum e fraction]Ordered By: Juan Ventura on 12-05-2021 Hematocrit (Bld) [Volume fraction] 37.3 % 38.8-50.0 [facility] Laboratory - Hematology and Cell countsOrdered By: Juan Ventura on 12-05-2021 Nucleated RBC/100 WBC (Bld) [Ratio] 0.0 % 0-0.5 [facility] Lymphocytes Auto (Bld) [#/Vo l]Ordered By: Juan Ventura on 12-05-2021 Lymphocytes (Bld) [#/Vol] 1.4 10*3/uL 1.00-4.8 [facility] Lymphocytes/100 WBC Auto (Bl d)Ordered By: Juan Ventura on 12-05-2021 Lymphocytes/100 WBC (Bld) 19.8 % [facility] MCH Auto (RBC) [Entitic mass ]Ordered By: Juan Ventura on 12-05-2021 MCH (RBC) [Entitic mass] 30.8 pg 27.5-35.2 [facility] MCHC Auto (RBC) [Mass/Vol]Or dered By: Juan Ventura on 12-05-2021 MCHC (RBC) [Mass/Vol] 33.1 g/dL 32.5-35.6 [facility] MCV Auto (RBC) [Entitic vol] Ordered By: Juan Ventura on 12-05-2021 MCV (RBC) [Entitic vol] 93.1 fL 83.5-101 [facility] Monocytes Auto (Bld) [#/Vol] Ordered By: Juan Ventura on 12-05-2021 Monocytes (Bld) [#/Vol] 0.5 10*3/uL 0.0-0.8 [facility] Monocytes/100 WBC Auto (Bld) Ordered By: Juan Ventura on 12-05-2021 Monocytes/100 WBC (Bld) 7.3 % [facility] Neutrophils Auto (Bld) [#/Vo l]Ordered By: Juan Ventura on 12-05-2021 Neutrophils (Bld) [#/Vol] 4.9 10*3/uL 1.8-7.7 [facility] Neutrophils/100 WBC Auto (Bl d)Ordered By: Juan Ventura on 12-05-2021 Neutrophils/100 WBC (Bld) 69.9 % [facility] No Panel InformationOrdered By: Juan Ventura on 12-05-2021 Estimated GFR () > 60 mL/Min [facility] Comment on above: GFR estimated refere nce range: According to KDOQI guidelines, <60 ml/min/1.73m2 is sufficient to diagnose a patient with chronic kidney disease. Pharmacy Creatinine Clearance (Chem N/A [facility] Platelet mean volume Auto (B ld) [Entitic vol]Ordered By: Juan Ventura on 12-05-2021 Platelet mean volume (Bld) [Entitic vol] 8.9 fL 6.6-10.1 [facility] Platelets Auto (Bld) [#/Vol] Ordered By: Juan Ventura on 12-05-2021 Platelets (Bld) [#/Vol] 194 10*3/uL 150-450 [facility] RBC Auto (Bld) [#/Vol]Ordere d By: Juan Ventura on 12-05-2021 RBC (Bld) [#/Vol] 4.00 10*6/uL 3.90-5.60 [facility] Serum or plasma calcium fco urement (mass/volume)Ordered By: Juan Ventura on 12-05-2021 Calcium [Mass/Vol] 9.2 mg/dL 8.2-10.2 [facility] Serum or plasma chloride daniel surement (moles/volume)Ordered By: Juan Ventura on 12-05-2021 Chloride [Moles/Vol] 107 mmol/L 95-114 [facility] Serum or plasma glucose fco urement (mass/volume)Ordered By: Juan Ventura on 12-05-2021 Glucose [Mass/Vol] 117 mg/dL 70-100 [facility] Comment on above: ADA recommended refe rence range Random Glucose Reference Range is dependent on time and content of last meal. Glucose of more than 200 mg/dL in a nonstressed, ambulatory subject supports the diagnosis of Diabetes Mellitus. Serum or plasma potassium me asurement (moles/volume)Ordered By: Juan Ventura on 12-05-2021 Potassium [Moles/Vol] 4.6 mmol/L 3.5-5.1 [facility] Serum or plasma sodium measu rement (moles/volume)Ordered By: Juan Ventura on 12-05-2021 Sodium [Moles/Vol] 141 mmol/L 136-146 [facility] Serum or plasma total carbon dioxide measurement (moles/volume)Ordered By: Juan Ventura on 12-05-2021 CO2 [Moles/Vol] 26.2 mmol/L 22.0-30.0 [facility] Serum or plasma urea nitroge n measurement (mass/volume)Ordered By: Juan Ventura on 12-05-2021 Urea nitrogen [Mass/Vol] 23 mg/dL 9-23 [facility] CBC AUTO DIFFon 11-05-2021 BASO # 0.1 103/ul Normal 0.0-0.1 [facility] Comment on above: Performed By: #### C BC #### [facility] [address] [address] [address] Leesa Urbina Basophils/100 WBC (Bld) 0.8 % Normal 0.2-2.0 [facility] Comment on above: Performed By: #### C BC #### [facility] [address] [place] [address] Dr. Leesa Urbina EO # 0.4 103/ul Normal 0.0-0.7 [facility] Comment on above: Performed By: #### C BC #### [facility] [address] [place] [address] Dr. Leesa Urbina Eosinophils/100 WBC (Bld) 5.6 % Normal 0.9-7.0 [facility] Comment on above: Performed By: #### C BC #### [facility] [address] [place] [address] Dr. Leesa Urbina Erythrocyte distribution width (RBC) [Ratio] 13.4 % Normal 11.0-15.0 [facility] Comment on above: Performed By: #### C BC #### [facility] [address] [place] [address] Dr. Leesa Urbina Hematocrit (Bld) [Volume fraction] 36.1 % Critically low 42.0-54.0 [facility] Comment on above: Performed By: #### C BC #### [facility] [address] [place] [address] Dr. Leesa Urbina Hemoglobin (Bld) [Mass/Vol] 11.8 g/dL Critically low 14.0-18.0 [facility] Comment on above: Performed By: #### C BC #### [facility] [address] [place] [address] Dr. Leesa Urbina IG # 0.02 10e3/ul Normal 0.00-0.03 [facility] Comment on above: Performed By: #### C BC #### [facility] [address] [place] [address] Dr. Leesa Urbina IG % 0.3 % Normal 0.0-0.5 [facility] Comment on above: Performed By: #### C BC #### [facility] [address] [place] [address] Dr. Leesa Urbina LYMPH # 1.8 103/ul Normal 1.2-3.8 [facility] Comment on above: Performed By: #### C BC #### [facility] [address] [place] [address] Dr. Leesa Urbina Lymphocytes/100 WBC (Bld) 28.4 % Normal 20.5-60.0 [facility] Comment on above: Performed By: #### C BC #### [facility] [address] [place] [address] Dr. Leesa Urbina MANUAL DIFF REQ NO Normal [facility] Comment on above: Performed By: #### C BC #### [facility] [address] [place] [address] Dr. Leesa Urbina MCH (RBC) [Entitic mass] 30.7 pg Normal 25.9-34.0 [facility] Comment on above: Performed By: #### C BC #### [facility] [address] [place] [address] Dr. Leesa Urbina MCHC (RBC) [Mass/Vol] 32.7 g/dL Normal 29.9-35.2 [facility] Comment on above: Performed By: #### C BC #### [facility] [address] [place] [address] Dr. Leesa Urbina MCV (RBC) [Entitic vol] 94.0 fL Normal 80.0-94.0 [facility] Comment on above: Performed By: #### C BC #### [facility] [address] [place] [address] Dr. Leesa Urbina MONO # 0.5 103/ul Normal 0.3-0.8 [facility] Comment on above: Performed By: #### C BC #### [facility] [address] [place] [address] Dr. Leesa Urbina Monocytes/100 WBC (Bld) 8.1 % Normal 1.7-12.0 [facility] Comment on above: Performed By: #### C BC #### [facility] [address] [place] [address] Dr. Leesa Urbina NEUT # 3.5 103/ul Normal 1.4-6.5 [facility] Comment on above: Performed By: #### C BC #### [facility] [address] [address] [address] Leesa Urbina Neutrophils/100 WBC (Bld) 56.8 % Normal 43.0-75.0 [facility] Comment on above: Performed By: #### C BC #### [facility] [address] [address] [address] Leesa Urbina Platelet mean volume (Bld) [Entitic vol] 10.3 fL Normal 9.5-13.5 [facility] Comment on above: Performed By: #### C BC #### [facility] [address] [address] [address] Leesa Urbina PLT 179 103/ul Normal 150-450 [facility] Comment on above: Performed By: #### C BC #### [facility] [address] [address] [address] Leesa Urbina RBC 3.84 106/ul Critically low 4.70-6.10 [facility] Comment on above: Performed By: #### C BC #### [facility] [address] [address] [address] Leesa Urbina WBC 6.2 103/ul Normal 4.0-11.0 [facility] Comment on above: Performed By: #### C BC #### [facility] [address] [address] [address] Leesa Urbina GLYCOHEMOGLOBIN A1Con 2021 ADA RECOMMENDATION SEE BELOW Normal [facility] Comment on above: Result Comment: ADA RECOMMENDED LIMIT 4.0 - 6.0 ADA THERAPEUTIC TARGET < 7.0 ACTION SUGGESTED > 7.0 Performed By: #### L IPID, TSH, CMP #### [facility] [address] [address] [address] Leesa Uribna Glucose [Mass/Vol] 151 mg/dL Normal [facility] Comment on above: Performed By: #### L IPID, TSH, CMP #### [facility] [address] [address] [address] Leesa Urbina HbA1c (Bld) [Mass fraction] 6.9 % Critically high 4.5-6.2 [facility] Comment on above: Performed By: #### L IPID, TSH, CMP #### [facility] [address] [address] [address] Leesa Urbina LIPID PROFILEon 11-05-2021 CHOL-HDL RATIO NORM SEE BELOW Normal [facility] Comment on above: Result Comment: 3.3 - 4.4 LOW RISK 4.4 - 7.1 AVERAGE RISK 7.1 - 11.0 MODERATE RISK >11.0 HIGH RISK Performed By: #### L IPID, TSH, CMP #### [facility] [address] [address] [address] Leesa Urbina Cholesterol [Mass/Vol] 150 mg/dL Normal <=200 [facility] Comment on above: Performed By: #### L IPID, TSH, CMP #### [facility] [address] [address] [address] Leesa Urbina Cholesterol in HDL [Mass/Vol] 60 mg/dL Normal 40-60 [facility] Comment on above: Performed By: #### L IPID, TSH, CMP #### [facility] [address] [address] [address] Leesa Urbina Cholesterol in LDL [Mass/Vol] 70.8 mg/dL Normal [facility] Comment on above: Performed By: #### L IPID, TSH, CMP #### [facility] [address] [address] [address] Leesa Urbina Cholesterol.total/Chol esterol in HDL [Mass ratio] 2.5 {ratio} Normal [facility] Comment on above: Performed By: #### L IPID, TSH, CMP #### [facility] [address] [address] [address] Leesa Urbina HDL NORMAL > or = 60 mg/dl - LO W CARDIOVASCULAR RISK <40 mg/dl - HIGH CARDIOVASCULAR RISK Normal [facility] Comment on above: Performed By: #### L IPID, TSH, CMP #### [facility] [address] [address] [address] Leesa Urbina LDL CALC NORMAL SEE BELOW Normal [facility] Comment on above: Result Comment: <100 mg/dl OPTIMAL 100 - 129 mg/dl NEAR OR ABOVE OPTIMAL 130 - 159 mg/dl BORDERLINE HIGH 160 - 189 mg/dl HIGH >190 mg/dl VERY HIGH Performed By: #### L IPID, TSH, CMP #### [facility] [address] [address] [address] Leesa Urbina Triglyceride [Mass/Vol] 96 mg/dL Normal <=150 [facility] Comment on above: Performed By: #### L IPID, TSH, CMP #### [facility] [address] [address] [address] Leesa Urbina VLDL CALC 19.2 mg/dL Normal [facility] Comment on above: Performed By: #### L IPID, TSH, CMP #### [facility] [address] [address] [address] Leesa Urbina MICROALB CREAT RATIO RANDOMo n 11-05-2021 mALB <1.3 Normal <=30.0 [facility] Comment on above: Performed By: #### L IPID, TSH, CMP #### [facility] [address] [address] [address] Leesa Urbina MALB CR RATIO 11.4 mg/g Normal 0.0-29.9 [facility] Comment on above: Performed By: #### L IPID, TSH, CMP #### [facility] [address] [address] [address] Leesa Urbina MALB CR RATIO RANGE SEE BELOW Normal [facility] Comment on above: Result Comment: NO M ICROALBUMINURIA 0-29 MG/G CLINICAL MICROALBUMINURIA 30-300 MG/G MACROALBUMINURIA >300 MG/G Performed By: #### L IPID, TSH, CMP #### [facility] [address] [address] [address] Leesa Urbina URINE CREAT 114.03 mg/dL Normal 20.00-300.00 [facility] Comment on above: Performed By: #### L IPID, TSH, CMP #### [facility] [address] [address] [address] Leesa Urbina PROF 14(COMP METB)on 06-15-2 022 Albumin [Mass/Vol] 2.3 g/dL Critically low 3.4-5.0 [facility] Comment on above: Performed By: #### L IPID, TSH, CMP #### [facility] [address] [address] [address] Leesa Urbina Albumin/Globulin [Mass ratio] 0.5 {ratio} Normal [facility] Comment on above: Performed By: #### L IPID, TSH, CMP #### [facility] [address] [address] [address] Leesa Urbina ALP [Catalytic activity/Vol] 77 U/L Normal 46-116 [facility] Comment on above: Performed By: #### L IPID, TSH, CMP #### [facility] [address] [place] [address] Dr. Leesa Urbina ALT [Catalytic activity/Vol] 16 U/L Normal 16-63 [facility] Comment on above: Performed By: #### L IPID, TSH, CMP #### [facility] [address] [place] [address] Dr. Leesa Urbina Anion gap [Moles/Vol] 13.8 mmol/L Normal [facility] Comment on above: Performed By: #### L IPID, TSH, CMP #### [facility] [address] [place] [address] Dr. Leesa Urbina AST [Catalytic activity/Vol] 15 U/L Normal 15-37 [facility] Comment on above: Performed By: #### L IPID, TSH, CMP #### [facility] [address] [place] [address] Dr. Leesa Urbina Bilirubin [Mass/Vol] 0.5 mg/dL Normal 0.2-1.0 [facility] Comment on above: Performed By: #### L IPID, TSH, CMP #### [facility] [address] [place] [address] Dr. Leesa Urbina Calcium [Mass/Vol] 8.7 mg/dL Normal 8.5-10.1 [facility] Comment on above: Performed By: #### L IPID, TSH, CMP #### [facility] [address] [address] [address] Leesa Urbina Chloride [Moles/Vol] 107 mmol/L Normal 98-107 [facility] Comment on above: Performed By: #### L IPID, TSH, CMP #### [facility] [address] [address] [address] Leesa Urbina CO2 [Moles/Vol] 26.2 mmol/L Normal 21.0-32.0 [facility] Comment on above: Performed By: #### L IPID, TSH, CMP #### [facility] [address] [address] [address] Leesa Urbina Creatinine [Mass/Vol] 1.25 mg/dL Normal 0.70-1.30 [facility] Comment on above: Performed By: #### L IPID, TSH, CMP #### [facility] [address] [place] [address] Dr. Leesa Urbina EGFR-AF BURUNDIAN >60 Normal >=60 [facility] Comment on above: Performed By: #### L IPID, TSH, CMP #### [facility] [address] [place] [address] Dr. Leesa Urbina EGFR-NON AF BURUNDIAN 55 mL/min/1.73m2 Critically low >=60 [facility] Comment on above: Performed By: #### L IPID, TSH, CMP #### [facility] [address] [place] [address] Dr. Leesa Urbina Globulin (S) [Mass/Vol] 4.3 g/dL Normal [facility] Comment on above: Performed By: #### L IPID, TSH, CMP #### [facility] [address] [place] [address] Dr. Leesa Urbina Glucose [Mass/Vol] 137 mg/dL Critically high 74-106 T [facility] Comment on above: Performed By: #### L IPID, TSH, CMP #### [facility] [address] [place] [address] Dr. Leesa Urbina Potassium [Moles/Vol] 4.0 mmol/L Normal 3.5-5.1 [facility] Comment on above: Performed By: #### L IPID, TSH, CMP #### [facility] [address] [address] [address] Leesa Urbina Protein [Mass/Vol] 6.6 g/dL Normal 6.4-8.2 [facility] Comment on above: Performed By: #### L IPID, TSH, CMP #### [facility] [address] [address] [address] Leesa Urbina Sodium [Moles/Vol] 143 mmol/L Normal 136-145 [facility] Comment on above: Performed By: #### L IPID, TSH, CMP #### [facility] [address] [place] [address] Dr. Leesa Urbina Urea nitrogen [Mass/Vol] 24.0 mg/dL Critically high 7.0-18.0 [facility] Comment on above: Performed By: #### L IPID, TSH, CMP #### [facility] [address] [place] [address] Dr. Leesa Urbina Urea nitrogen/Creatinine [Mass ratio] 19.2 mg/mg Normal [facility] Comment on above: Performed By: #### L IPID, TSH, CMP #### [facility] [address] [place] [address] Dr. Leesa Urbina TSHon 11-05-2021 TSH 0.996 uIU/mL Normal 0.358-3.740 [facility] Comment on above: Performed By: #### L IPID, TSH, CMP #### [facility] [address] [place] [address] Dr. Leesa Urbina Tobacco Screening.on 022 Adult depression screening assessment No [facility] 250 DO Work Phone: Fall risk assessment a) No falls within the last year [facility] 250 DO Work Phone: Tobacco use status CPHS b) No [facility] 250 DO Work Phone: Vital Signs Date Time Vital Sign Value Performing Clinician Facility 07-13-2023 08:34-0500 Body height 180.3 cm Dev Camp MD Work Phone: [facility] 07-13-2023 08:34-0500 Body mass index (BMI) [Ratio] 23.99 kg/m2 Dev Camp MD Work Phone: [facility] 07-13-2023 08:34-0500 Body weight 78.02 kg Dev Camp MD Work Phone: [facility] 07-13-2023 08:34-0500 Diastolic blood pressure 64 mm[Hg] Dev Camp MD Work Phone: [facility] 07-13-2023 08:34-0500 Heart rate 60 /min Dev Camp MD Work Phone: [facility] 07-13-2023 08:34-0500 Systolic blood pressure 108 mm[Hg] Dev Camp MD Work Phone: [facility] 11-17-2022 14:15-0400 Body height 180.34 cm Imad Asaad Other [employer] [facility] [employer] Other 11-17-2022 14:15-0400 Body mass index (BMI) [Ratio] 23.71 kg/m2 Imad Asaad Other [employer] Other 11-17-2022 14:15-0400 Body weight 77.11 kg Imad Asaad Other [employer] Other 11-17-2022 14:15-0400 Diastolic blood pressure 78 mm[Hg] Imad Asaad Other [employer] Other 11-17-2022 14:15-0400 Systolic blood pressure 127 mm[Hg] Imad Asaad Other [employer] Other 07-14-2022 09:08-0500 Body height 180.34 cm Gabriel Bello Work Phone: [facility] 250 DO Work Phone: 07-14-2022 09:08-0500 Body mass index (BMI) [Ratio] 24.13 kg/m2 Gabriel Bello Work Phone: [facility] 250 DO Work Phone: 07-14-2022 09:08-0500 Body surface area Derived from formula 1.98 m2 Gabriel Bello Work Phone: [facility] 250 DO Work Phone: 07-14-2022 09:08-0500 Body weight 78.47 kg Gabriel Bello Work Phone: [facility] 250 DO Work Phone: 07-14-2022 09:08-0500 Diastolic blood pressure 78 mm[Hg] Gabriel Bello Work Phone: [facility] 250 DO Work Phone: 07-14-2022 09:08-0500 Heart rate 68 /min Gabriel Bello Work Phone: [facility] 250 DO Work Phone: 07-14-2022 09:08-0500 Systolic blood pressure 124 mm[Hg] Gabriel Bello Work Phone: [facility] 250 DO Work Phone: 07-03-2021 15:20-0500 Diastolic blood pressure 78 mm[Hg] Gabriel Bello Work Phone: [facility] 250 DO Work Phone: 07-03-2021 15:20-0500 Heart rate 65 /min Gabriel Bello Work Phone: [facility] 250 DO Work Phone: 07-03-2021 15:20-0500 Systolic blood pressure 136 mm[Hg] Gabriel Bello Work Phone: [facility] 250 DO Work Phone: 07-03-2021 15:17-0500 Body height 180.34 cm Gabriel Bello Work Phone: [facility] 250 DO Work Phone: 07-03-2021 15:17-0500 Body mass index (BMI) [Ratio] 24.97 kg/m2 Gabriel Belol Work Phone: [facility] 250 DO Work Phone: 07-03-2021 15:17-0500 Body surface area Derived from formula 2.01 m2 Gabriel Bello Work Phone: [facility] 250 DO Work Phone: 07-03-2021 15:17-0500 Body weight 81.19 kg Gabriel Bello Work Phone: [facility] 250 DO Work Phone: 07-03-2021 15:17-0500 Diastolic blood pressure 80 mm[Hg] Gabriel Bello Work Phone: [facility] 250 DO Work Phone: 07-03-2021 15:17-0500 Systolic blood pressure 151 mm[Hg] Gabriel Bello Work Phone: [facility] 250 DO Work Phone: Encounters Encounter Date Encounter Type Care Provider Facility Start: 02-21-2024 End: 02-21-2024 ambulatory [facility] Start: 02-07-2024 End: 02-07-2024 ambulatory [facility] Start: 01-13-2024 End: 01-13-2024 ambulatory [facility] Start: 01-11-2024 End: 01-11-2024 ambulatory [...] Start: 09-13-2023 End: 09-13-2023 ambulatory Miller Donald Facility:[facility] Start: 09-13-2023 End: 09-13-2023 ambulatory DO Gabriel Bello Work Phone: [facility] Work Phone: Start: 09-13-2023 End: 09-13-2023 Patient encounter procedure DO Gabriel Bello Work Phone: [facility]Pet [facility] Work Phone: Start: 07-13-2023 End: 07-13-2023 Office outpatient visit 25 minutes Dev Camp MD Work Phone: [facility] Comment on above: Benign essential hyp ertension (Primary Dx); Mixed hyperlipidemia; Paroxysmal atrial fibrillation (CMS/HCC); Former smoker Start: 07-13-2023 End: 07-13-2023 ambulatory DEV CAMP [facility] Ambulatory Start: 05-26-2023 End: 05-26-2023 ambulatory CHRIS PATEL Not Available Start: 05-12-2023 End: 05-12-2023 ambulatory GABRIEL BELLO Not Available Start: 04-26-2023 End: 04-26-2023 ambulatory LAURA A PETITTI Not Available Start: 12-24-2022 End: 12-24-2022 ambulatory Imad Asaad Facility:[facility] Start: 11-26-2022 End: 11-26-2022 ambulatory Imad Asaad Facility:[facility] Start: 11-26-2022 End: 11-26-2022 ambulatory DO Gabriel Bello Work Phone: [facility] Work Phone: Start: 11-26-2022 End: 11-26-2022 Patient encounter procedure DO Gabriel Bello Work Phone: [facility]CT [facility] [place] Work Phone: Start: 11-17-2022 End: 11-17-2022 ambulatory Imad Asaad Other [facility] [employer] Other Start: 11-17-2022 Office outpatient ne w 45 minutes Imad Asaad [facility] Start: 11-17-2022 Telephone encounter Imad Asaad [facility] Start: 09-03-2022 End: 09-04-[address] GABRIEL BELLO Facility:[facility] Start: 07-14-2022 Office outpatient visit 25 minutes Gabriel Bello Work Phone: [facility] 250 DO Work Phone: Start: 07-14-[address] Gabriel Kulkarni Facility: Start: 05-25-2022 End: 05-26-[address] GABRIEL BELLO Facility:[facility] Start: 05-06-2022 End: 05-07-[address] GABRIEL BELLO Facility:[facility] Start: 03-27-2022 Rx Renewal Gabriel jennings Work Phone: [facility] 250 DO Work Phone: Start: 12-05-2021 End: 12-05-2021 Patient encounter procedure DO Gabriel Bello Work Phone: [facility] Start: 11-20-2021 End: 11-21-[address] DOCTOR BISHOP Facility:[facility] Start: 11-05-2021 End: 11-06-[address] GABRIEL BELLO Facility:[facility] Start: 07-03-2021 Office outpatient visit 25 minutes Gabriel Bello Work Phone: [facility] 250 DO Work Phone: Start: 03-05-2021 Rx Renewal Marina lozada MD Work Phone: [facility] 250 DO Work Phone: Start: 07-12-2020 End: 07-12-2020 Discharged Recurring Gabriel Bello [facility]-Covid Vaccine Procedures Date Procedure Procedure [...] By: #### L IPID, TSH, CMP #### [facility] [address] [place] [address] Dr. Leesa Urbina Start: 11-20-[address] DOCTOR BISHOP Comment on above: Performed By: #### P SAD #### [facility] [address] [place] [address] Dr. Leesa Urbina Appendectomy Gabriel daniel Work Phone: Cataract surgery Gabriel morris Work Phone: Colonoscopy Gabriel Huynh n Work Phone: Comment on above: [id number] Jovanny Yu; Operation on lip Gabriel morris Work Phone: Prostatectomy Gabriel jennings Work Phone: Plan of Treatment Date Care Activity Detail Author Start: 07-18-2024 End: 07-18-2024 Patient encounter procedure 07/18/2024 8:50 AM EST Office Visit [facility] [address] [place] [id number] Dev Camp MD [address] [place], [place] [id number] [facility] Start: 07-13-2023 FUV, Provider: Dev Camp, Status: Pen, Time: 8:50 AM FUV, Provider: Dev Camp, Status: Pen, Time: 8:50 AM -[facility] 250 DO Work Phone: Start: 07-14-2022 FUV, Provider: Dev Camp, Status: Pen, Time: 9:10 AM FUV, Provider: Dev Camp, Status: Pen, Time: 9:10 AM -[facility] 250 DO Work Phone: Start: 06-24-2021 FUV, Provider: Dev Camp, Status: Pen, Time: 10:15 AM FUV, Provider: Dev Camp, Status: Pen, Time: 10:15 AM -[facility] 250 DO Work Phone: Start: 1960 DTaP/Tdap/Td Vaccine s (1 - Tdap) DTaP/Tdap/Td Vaccines (1 - Tdap) [facility] Start: 1957 Urine screening for protein Diabetes: Urine Protein Screening [facility] Start: 1948 Diabetic foot examination Diabetes: Foot Exam [facility] Start: 1948 Glaucoma screening Diabetes: R etinopathy Screening [facility] Start: 1938 Hemoglobin A1c measurement Diabetes: Hemoglobin A1C [facility] Start: 1938 Lipid panel Lipid Panel [facility] Start: 1938 Medicare Annual Wellness Visit Medicare Annual Wellness Visit (AWV) [facility] HIV 1+2 Ab+HIV1 p24 Ag [Presence] in Serum or Plasma by Immunoassay [facility] Immunizations Immunization Date Immunization Notes Care Provider Estefanía singh 04-03-2022 Moderna COVID-19 Biv al Booster 50 MCG/0.5ML Intramuscular Suspension Gabriel Bello Work Phone: [facility] 250 DO Work Phone: 03-10-2022 Fluad Quadrivalent 0 .5 ML Intramuscular Prefilled Syringe Gabriel Downingman Work Phone: [facility] 250 DO Work Phone: 12-19-2021 Moderna COVID-19 Vac cine 100 MCG/0.5ML Intramuscular Suspension Gabriel Downingman Work Phone: [facility] 250 DO Work Phone: 03-20-2021 Moderna COVID-19 Vac cine 100 MCG/0.5ML Intramuscular Suspension Gabriel Vargas Ace Work Phone: [facility] 03-12-2021 influenza, high dose seasonal, preservative-free Gabriel Downingman Work Phone: [facility] 250 DO Work Phone: 02-26-2021 Fluzone High-Dose Quadrivalent 0.7 ML Intramuscular Suspension Prefilled Syringe Gabriel Bello Work Phone: [facility] 250 DO Work Phone: 07-12-2020 COVID-19 mRNA-1273 (Moderna) [facility] 06-15-2020 COVID-19 mRNA-1273 (Moderna) [facility] 03-15-2020 Fluad Quadrivalent 0 .5 ML Intramuscular Prefilled Syringe Gabriel Bello Work Phone: [facility] 250 DO Work Phone: 02-24-2020 influenza, high dose seasonal, preservative-free Gabriel A [facility] Work Phone: 03-11-2019 zoster vaccine recombinant Gabriel A Ace Work Phone: [facility] 250 DO Work Phone: 03-01-2019 influenza, high dose seasonal, preservative-free [facility] Phone: 02-21-2019 influenza, high dose seasonal, preservative-free Gabriel A Ace Work Phone: [facility] [employer] DO Work Phone: 12-22-2018 zoster vaccine recombinant Gabriel Bello Work Phone: [facility] [employer] DO Work Phone: 02-25-2018 influenza, high dose seasonal, preservative-free Gabriel A Ace Work Phone: [facility] [employer] DO Work Phone: 03-16-2017 influenza, high dose seasonal, preservative-free Gabriel A Ace Work Phone: [facility] [employer] DO Work Phone: 05-24-2016 pneumococcal conjuga te vaccine, 13 valent Gabriel Bello Work Phone: [facility] 03-22-2015 influenza, high dose seasonal, preservative-free Gabriel A Ace Work Phone: [facility] 250 DO Work Phone: 05-24-2012 pneumococcal polysaccharide vaccine, 23 valent Gabriel A Ace Work Phone: [facility] 05-31-2009 novel influenza-H1N1 -09, preservative-free, injectable Gabriel Bello Work Phone: -[facility] Mcdonald DO Work Phone: Payers Date Payer Category Payer Medicare [id number] 2022 Self-pay [id number] 1959 Private Health Insurance 101 [id number] 1938 Unknown [id number] 2.16. 840.1.807313.3.579.2.356 1938 Unknown [id number] 2.16.84 0.1.332582.3.579.2.593 1938 Unknown [id number] 2.16.84 0.1.581753.3.579.2.593 1938 Unknown [id number] 2.16.84 0.1.624801.3.579.2.593 1938 Unknown [id number] 2.16.84 0.1.941592.3.579.2.593 1938 Unknown [id number] 2.16.84 0.1.342048.3.579.2.593 1938 Unknown [id number] 2.16.84 0.1.406209.3.579.2.1259 1938 Unknown [id number] 2.16.84 0.1.992438.3.579.2.1259 1938 Unknown [id number] 2.16.84 0.1.091608.3.579.2.1259 1938 Unknown [id number] 2.16.84 0.1.671292.3.579.2.1259 1938 Unknown [id number] 2.16.84 0.1.995156.3.579.2.1259 1938 Unknown [id number] 2.16.84 0.1.455477.3.579.2.1259 1938 Unknown [id number] 2.16.840 .1.980148.3.579.2.1259 1938 Unknown [id number] 2.16.840 .1.983131.3.579.2.1259 1938 Unknown [id number] 2.16.840 .1.159675.3.579.2.1259 1938 Unknown [id number] 2.16.8 40.1.680934.3.579.2.1244 1938 Unknown [id number] 2.16.8 40.1.829648.3.579.2.1244 1938 Unknown [id number] 2.16.8 40.1.497080.3.579.2.1244 1938 Unknown [id number] 2.16.8 40.1.687022.3.579.2.1246 1938 Unknown [id number] 2.16.8 40.1.538281.3.579.2.1246 1938 Unknown [id number] 2.16.8 40.1.338451.3.579.2.1246 1938 Unknown [id number] 2.16.8 40.1.924596.3.579.2.1246 1938 Unknown [id number] 2.16.8 40.1.669896.3.579.2.1246 1938 Unknown [id number] 2.16.8 40.1.456022.3.579.2.1246 Medicare Medicare [id number] Private Health Insurance Self Pay [facility] [id number] Unknown [employer] Unknown [id number] 2.16.8 40.1.033441.3.579.2.531 Unknown [id number] 2.16.8 40.1.834491.3.579.2.531 Unknown [id number] 2.16.8 40.1.164584.3.579.2.531 Social History Date Type Detail Facility Tobacco smoking status ORIS Unknown if ever smoked [facility] Start: 1940 Sex Assigned At Male F [facility] Start: 07-13-2023 Never a smoker Never a smoker [facility] 250 DO Work Phone: Comment on above: 2-3 drinks a month; Start: 12-05-2021 End: 12-24-2022 Tobacco smoking status NHIS Ex-smoker (finding) [facility] Start: 07-13-2023 Sex Assigned At N [facility] [employer] Other End: 05-24-1989 History of tobacco use Current smoker [facility] Work Phone: End: 05-24-1989 History of tobacco use Cigarette Smoker [facility] Work Phone: Start: 07-13-2023 Tobacco use and exposure Smokeless tobacco non-user [facility] Work Phone: Start: 07-13-2023 Alcohol intake Lifetime non-d joe (finding) [facility] Work Phone: Start: 1940 [facility] Start: 07-03-2023 End: 07-13-2023 Exposure to SARS-CoV-2 (event) Not sure [facility] Goals Date Patient Goal Desired Activity [...] by mouth once daily., Disp: , Rfl: [id number] (Creon) 24,000-76,000 -120,000 unit capsule, Take 1 [...] discussion and plan. documented in this encounter [facility] Work Phone: Instructions 07-13-2023 Patient Instructions [...] of your visit. documented in this encounter [facility] Work Phone: Evaluation note 11-17-2022 Note Date & Type Note Facility 11-17-2022 Evaluation note Encounter Date Diagnosis Assessment Notes Oct, Change in bowel habits (ICD-10 - R19.4) Oct, Diverticulosis (ICD-10 - K57.90) Oct, IBS (irritable bowel syndrome) (ICD-10 - K58.9) Oct, Pancreatic insufficiency (ICD-10 - K86.89) [employer] Other History of Present illness Narrative 07-14-2022 [...] necessary and we suggest follow-up next year [facility] 250 DO Work Phone: Evaluation note Note Date & Type Note Facility Evaluation note [facility] Work Phone: Evaluation note Note Date & Type Note Facility Evaluation note No Information [facility] [employer] Other Evaluation note Note Date & Type Note Facility Evaluation note Diagnosis Benign essential hypertension- Primary Essential hypertension, benign Mixed hyperlipidemia Paroxysmal atrial fibrillation (CMS/HCC) Atrial fibrillation Former smoker Personal history of tobacco use, presenting hazards to health documented in this encounter [facility] Work Phone: History general Narrative - [...] History Right cataract surge ry per in [place], [place]. 10-28-17 Surgical History Mohs repair / left upper lip Hospitalization History see above [place] [employer] Other History of Present illness Narrative Note [...] suggest continued therapy as before without change. -[facility] 250 DO Work Phone: Advance Directives No [...] Procedures ECG 12 Lead Dev Camp MD [address] [place] [address] Referral ID Status Reason Start Date Expiration Date V isits Requested Visits Authorized [id number] Authorized 07/13/2023 07/12/2024 1 1 Specialty Diagnoses / Procedures Referred By Contac t Referred To Contact Cardiology Diagnoses Paroxysmal atrial fibrillation (CMS/HCC) Procedures Follow Up In Cardiology Dev Camp MD [address] [place] [address] Dev Camp MD [address] [place] [phone] Referral ID Status Reason Start Date Expiration Date V isits Requested Visits Authorized [id number] Authorized 07/13/2023 07/12/2024 1 1 Additional Source [...] Jj Garcia MD Attending Provider Active 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 Relationship Specialty Start Date End Date Gabriel Bello DO [address] [place] [address] PCP - General 05/24/99 Team Status: Inactive [...] section and content) DATE CREATED AUTHOR 07/15/2022 [facility] DATE CREATED AUTHOR AUTHOR'S ORGANIZ ATION 07/15/2022 [employer] DATE CREATED AUTHOR AUTHOR'S ORGANIZ ATION 09/10/2022 [facility] DATE CREATED AUTHOR AUTHOR'S ORGANIZ ATION 09/18/2023 [facility] DATE CREATED AUTHOR AUTHOR'S ORGANIZ ATION 01/12/2024 [facility] EPIC DATE CREATED AUTHOR AUTHOR'S ORGANIZ ATION 02/08/2024 [facility] DATE CREATED AUTHOR AUTHOR'S ORGANIZ ATION 02/25/2024 [facility] REASON FOR VISIT (unrecogniz ed section and content) Reason Comments Annual Exam Specialty Diagnoses / Procedures Referred By Contac t Referred To Contact Diagnoses Paroxysmal atrial fibrillation ([facility]) Procedures ECG 12 Lead Dev Camp MD [address] [facility] [address], [address] [address] Referral ID Status Reason Start Date Expiration Date V isits Requested Visits Authorized [id number] Authorized 07/13/2023 07/12/2024 1 1 FOR RECORDS [...] BE BASED ON THE PRIMARY CLINICAL RECORDS. [facility] [employer] provides no warranty or guarantee of the accuracy or completeness of information in this document.
[2024-03-13 07:51] LABS: Basophils Absolute Auto 0.1 10^3/uL (0.0-0.1); Basophils Percent Auto 1.2 % (0.2-2.0); Eosinophils Absolute Auto 0.4 10^3/uL (0.0-0.7); Eosinophils Percent Auto 5.3 % (0.9-7.0); Hematocrit 38.3 % (42.0-54.0); Hemoglobin 12.6 g/dL (14.0-18.0); Immature Granulocytes Abs Auto 0.04 10^3/uL (0.00-0.03); Immature Granulocytes Pct Auto 0.5 % (0.0-0.5); Lymphocytes Absolute Auto 2.2 10^3/uL (1.2-3.8); Lymphocytes Percent Auto 27.3 % (20.5-60.0); Mean Corpuscular HGB Conc 32.9 g/dL (29.9-35.2); Mean Corpuscular Hemoglobin 30.7 pg (25.9-34.0); Mean Corpuscular Volume 93.2 fL (80.0-94.0); Mean Platelet Volume 10.6 fL (9.5-13.5); Monocytes Absolute Auto 0.6 10^3/uL (0.3-0.8); Monocytes Percent Auto 7.3 % (1.7-12.0); Neutrophils Absolute Auto 4.8 10^3/uL (1.4-6.5); Neutrophils Percent Auto 58.4 % (43.0-75.0); Platelet Count 193 10^3/uL (150-450); Red Blood Count 4.11 10^6/uL (4.70-6.10); Red Cell Distribution Width 13.1 % (11.0-15.0); White Blood Count 8.1 10^3/uL (4.0-11.0)
[2024-03-13 08:55] LABS: Alanine Aminotransferase 16 U/L (16-63); Albumin Level 3.3 g/dL (3.4-5.0); Alkaline Phosphatase 55 U/L (46-116); Aspartate Amino Transferase 25 U/L (15-37); BUN Creatinine Ratio 13.4; Bilirubin Total 0.5 mg/dL (0.2-1.0); Calcium 8.5 mg/dL (8.5-10.1); Chloride 107 mmol/L (98-107); Estimated GFR (African America >60 (>=60 mL/min/1.73m^2); Estimated GFR (Non-African Ame 54 (>=60 mL/min/1.73m^2); Globulin 3.2 g/dL; Glucose 196 mg/dL (74-106); Sodium 144 mmol/L (136-145); Total Protein 6.5 g/dL (6.4-8.2)
[2024-03-13 09:13] LABS: Prostate Specific Antigen Scrn <0.13 ng/mL (<=4.00)
[2024-03-14 04:08] LABS: Testosterone <3 ng/dL (264-916)
== END 2024-03-13 07:17 | disposition home or self-care (01) ==
LOC: LAB 07:18
PROVIDERS: PCP Internal Medicine; Visit Provider Urology
DX: C61 Malignant neoplasm of prostate (principal); Z12.5 Encounter for screening for malignant neoplasm of prostate
CPT/HCPCS: 36415; 80053; 84403; 85025; G0103

== ENCOUNTER 2024-03-27 07:34 | Outpatient (RCR) | payer MEDICARE, SELFPAY ==
[2024-03-27 13:40] VITALS: BP 154/71; PULSE 82; TEMP 36.8; O2SAT 94
--- NOTE | 2024-03-27 13:49 | PC.NURSE ---
1340: Pt. to [facility] amb. for scheduled injection. Seated in recliner. VSS. Denies c/o. Declines snack or beverage.
[2024-03-27] MEDS: DENOSUMAB 120 MG/1.7 ML VIAL SQ (13:56)
--- NOTE | 2024-03-27 13:57 | PC.NURSE ---
1356: Medicated with Xgeva 120mg SQ to left arm. No bleeding to site. Tolerated without c/o. D/c'd amb. to home.
== END 2024-04-13 08:41 | disposition home or self-care (01) ==
LOC: INF 07:34
PROVIDERS: PCP Internal Medicine
DX: C61 Malignant neoplasm of prostate (principal)
CPT/HCPCS: 96372; J0897

== ENCOUNTER 2024-04-03 07:20 | Outpatient (OUT) | payer MEDICARE, SELFPAY ==
--- OUTSIDE RECORDS SUMMARY | 2024-04-03 07:25 | XMS_ITS | CCD ---
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 Name Role Phone Gabriel Bello Primary Care Provider Ryan Negron Attending Provider [phone] Gabriel Bello Unavailable Unavailable Unavailable DO Gabriel [...] DR RIOS Consulting Unavailable ACE, DR RIOS Primary Care Unavailable MISC, DR SHERIFF Admitting [...] Care Provider NON STAFF Attending Provider Unavailable CHRIS PATEL Attending Unavailable GABRIEL BELLO Attending Unavailable GABRIEL BELLO Referring Unavailable GABRIEL BELLO Referring Unavailable GABRIEL BELLO Attending Unavailable CHARLEEN BARROW Attending Unavailable PETCHARLEEN MONTERO Attending Unavailable GABRIEL BELLO A Attending Unavailable GABRIEL BELLO A Attending Unavailable GABRIEL BELLO A Referring Unavailable GABRIEL BELLO Attending Unavailable DEV CAMP Attending Unavailable GABRIEL BELLO Primary Care Unavailable ASHLEY KHOURY Attending Unavailable GABRIEL BELLO A Primary Care Unavailable KHOURYRADHAA Referring Unavailable KELTON BELLOREY A Primary Care Unavailable KHOURY, ASHLEY Referring Unavailable GABRIEL BELLO A Primary Care Unavailable RADHA KHOURYA Referring Unavailable GABRIEL BELLO A Primary Care Unavailable Gabriel Bello DO A Unavailable [phone] Gabriel Bello DO Primary Care Provider Marianne Camp MD Unavailable [phone] Gabriel Bello Primary Care Unavailable Miller Donald Attending Unavailable Miller Donald Admitting Unavailable Unavailable Unavailable Unavailable Allergies Allergy Classification Reported Allergen(s) Allergy Type Date of Onset Reaction(s) Facility (4 sources) Sulfonamides (Antibiotic); Translations: [Sulfa Drugs] Allergy to drug (finding) [facility] 250 DO Work Phone: (6 sources) Sulfonamides (Antibiotic); Translations: [SULFA (SULFONAMIDE ANTIBIOTICS)] Allergy to substance 2 [facility] (1 source) Sulfonamides (Antibiotic) Drug allergy (disorder) [facility] Repository (3 sources) Substance with sulfonamide structure and antibacterial mechanism of action (substance) Drug allergy 4 [facility] (2 sources) abiraterone; Translations: [ABIRATERONE] Drug Allergy 4 [facility] 3 Repository (1 source) Sulfanilamide Allergy to substance 3 Unknown [facility] Healthcare Medications Current Medications Medication Drug Class(es) Dates Sig (Normalized) Sig (Original) amylase 022213 unt / lipase 00461 unt / protease 12380 unt delayed release oral capsule (4 sources) Start: 01-17-2024 Creon 22212-48630 units capsule Indications: Malignant neoplasm of prostate (CMS/HCC) , Exocrine pancreatic insufficiency (CMS/HCC) TAKE 1 CAPSULE IN THE MORNING, 1 CAPSULE AT NOON AND 1 CAPSULE IN THE EVENING WITH MEALS 300 capsule 1 01/17/2024 Active Start: 11-17-2022 take 1 capsule by mo uth three times daily at mealtime uqrzus-fooayqos-arrxhkt (Creon) 24,000-76,000 -120,000 unit capsule Take 1 capsule by mouth 3 times a day with meals. 0 11/17/2022 Active Start: 11-17-2022 Creon 23770-03 000 UNIT 1 with each meal Orally daily for 30 days Oct, Active ascorbic acid 500 mg oral capsule (4 sources) Vitamin C take 1 capsule by mouth once daily ascorbic acid, vitamin C, 500 mg capsule Take 1 capsule by mouth once daily. 0 Active atorvastatin 20 mg oral tablet (10 sources) HMG-CoA Reductase Inhibitor Start: atorvastatin (Lipitor) 20 MG tablet Indications: Mixed hyperlipidemia (CMS/HCC) TAKE 1 TABLET AT NIGHT 90 tablet 3 01/06/2024 Active Start: 12-05-2021 take 10 mg by mouth once daily [...] once daily. 0 07/13/2023 Discontinued (Therapy completed) calcitriol 0.0005 mg oral capsule (1 source) Vitamin D3 Analog take 1 capsule by mouth in the morning calcitriol (Rocaltrol) 0.5 MCG capsule Take 0.5 mcg by mouth in the morning. Active cholecalciferol 0.05 mg oral tablet (7 sources) [...] 11/13/2020 Active fluorouracil 50 mg/ml topical cream (3 sources) Nucleoside Metabolic Inhibitor Start: 04-26-2023 fluorouracil (Efudex) 5 % cream Indications: Actinic keratosis Apply to affected areas bid x 14 days 40 g 1 04/26/2023 Active Efudex 5 % 1 vlad lication Externally Twice a day Active lisinopril 20 mg oral tablet (10 sources) Angiotensin Converting Enzyme Inhibitor Start: 02-11-2021 lisinopril 20 MG tablet Indications: Primary hypertension (CMS/HCC) TAKE 1 TABLET DAILY 90 tablet 3 09/03/2023 Active metFORMIN hydrochloride 500 mg oral tablet (7 sources) Biguanide Start: 09-01-2023 metFORMIN (Glucophage) 500 MG tablet Indications: Type 2 diabetes mellitus with other specified complication, without long-term current use of insulin (CMS/HCC) TAKE 1 TABLET IN THE EVENING WITH A MEAL 90 tablet 3 09/01/2023 Active Start: 07-05-2020 take 1 tablet by yifna once daily metFORMIN (Glucophage) 500 mg tablet Take 1 tablet (500 mg) by mouth once daily. 0 07/05/2020 Active 24 hr metoprolol succinate 50 mg extended release oral tablet (11 sources) beta-Adrenergic Allyn Start: 07-13-2023 End: 07-12-2024 take 1 tablet by mouth once daily metoprolol succinate XL (Toprol-XL) 50 MG 24 hr tablet Take 50 mg by mouth Daily 07/13/2023 Active Start: 02-24-2021 End: 07-13-2023 take 100 mg by mouth once daily in the morning Metoprolol Succinate Active 100 MG PO Every morning December 05, 2021 12:00am mirtazapine 15 mg oral table t (10 sources) Start: 02-15-2024 mirtazapine (R emeron) 15 MG tablet Indications: Current mild episode of major depressive disorder without prior episode (HCC) (CMS/HCC) TAKE 1 TABLET AT BEDTIME 90 tablet 3 02/15/2024 Active Start: 05-14-2021 take 15 mg by mouth once daily at bedtime Mirtazapine Active 15 MG PO Daily at bedtime December 05, 2021 12:00am polyethylene glycol 3350 087970 mg / potassium chloride 2970 mg / sodium bicarbonate 6740 mg / sodium chloride 5860 mg / sodium sulfate 12895 mg powder for oral solution (2 sources) Osmotic Laxative Start: 11-17-2022 take 236 g by mouth once Golytely 236 GM as directed Orally once for 1 days Oct, Active predniSONE 5 mg oral tablet (1 source) Start: 11-05-2023 take 1 tablet by mouth once daily predniSONE (Deltasone) 5 MG tablet Take 5 mg by mouth Daily 11/05/2023 Active rivaroxaban 20 mg oral tablet (11 sources) Factor Xa Inhibitor Start: 03-05-2021 End: [...] mouth see administration instructions. 0 Active Vit C,E-Ql-Cgawt-Lutein -Zeaxan (Preservision Areds-2) 250-90-40-1 mg Capsule (3 sources) Start: 12-05-2021 Vit C,L-Rz-Jssso-Lutein- Zeaxan (Preservision Areds-2) 250-90-40-1 mg Capsule Active 1 TAB PO Every morning December 05, 2021 12:47pm Start: 12-05-2021 Vit C,E-Zn-Packing House Laborer yh-Lzyczr-Ovymur (Preservision Areds-2) 250-90-40-1 mg Capsule Active 1 [...] ascorbic acid 226 mg / beta carotene 23102 unt / cuprous oxide 0.8 mg / [...] TENDERNESS] Onset: 3 Episodic Cancer of prostate (8 sources) Malignant neoplasm of prostate; Translations: [Secondary malignant neoplasm of bone] Onset: 5 Chronic Cardiac dysrhythmias (20 sources) Paroxysmal atrial fibrillation; Translations: [Atrial fibrillation] Onset: 0 Chronic Chronic kidney disease (3 sources) Chronic kidney disease stage 3A ; Translations: [Stage 3a chronic kidney disease] Onset: 1 11-03-2022 Chronic Chronic kidney disease (2 sources) Chronic kidney disease; Translations: [Chronic kidney disease, stage 3a (Multi)] Onset: 4 Deficiency and other anemia (1 source) Anemia, unspecified; Translations: [ANEMIA UNSPECIFIED] Onset: 3 Episodic Diabetes mellitus with complications (6 sources) Type 2 diabetes mellitus with other specified complication; Translations: [Type 2 diabetes mellitus] Onset: 2 Chronic Diabetes mellitus without complication (6 sources) Diabetes mellitus; Translations: [Diabetes mellitus without mention of complication, type II or unspecified type, not stated as uncontrolled] Onset: 4 05-28-2023 Chronic Disorders of lipid metabolism (11 sources) Hyperlipidemia; Translations: [Other and unspecified hyperlipidemia] Onset: 8 07-13-2023 Chronic Diverticulosis and diverticulitis (5 sources) Diverticulosis of intestine, part unspecified, without perforation or abscess without bleeding; Translations: [Diverticular disease of colon] Onset: 3 Chronic Essential hypertension (9 sources) Benign essential hypertension; Translations: [Benign essential hypertension] Onset: 5 07-13-2023 Chronic Heart valve disorders (4 sources) Nonrheumatic mitral (valve) insufficiency; Translations: [Nonrheumatic mitral (valve) insufficiency] Onset: 4 Chronic Miscellaneous mental health disorders (2 sources) Acute insomnia; Translations: [Adjustment insomnia] Episodic Mood disorders (3 sources) Major depressive disorder, single episode, unspecified; Translations: [Depression] Onset: 6 11-03-2022 Chronic Other aftercare (6 sources) Drug therapy finding; Translations: [Long-term (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 of anticoagulants] Episodic Other aftercare (3 sources) Other skilled nursing (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; Translations: [OTH GROUP HOME CURRENT DRUG THERAPY] Onset: 2 Episodic Other aftercare (2 sources) detention (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 of anticoagulants; Translations: [superintendent container terminal (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 of anticoagulants] Onset: 4 Episodic Other gastrointestinal disorders (3 sources) Irritable bowel syndrome; Translations: [Irritable bowel syndrome without diarrhea] Onset: 5 11-03-2022 Chronic Other gastrointestinal disorders (1 source) Irritable bowel syndrome without diarrhea Chronic Other gastrointestinal disorders (2 sources) Change in bowel habit; Translations: [CHANGE IN BOWEL HABIT] Onset: 3 Episodic Other gastrointestinal disorders (1 source) Other fecal abnormalities; Translations: [OTHER FECAL ABNORMALITIES] Onset: 3 Episodic Other gastrointestinal disorders (2 sources) Altered bowel function; Translations: [Change in bowel habit] Episodic Other nervous system disorders (2 sources) Postoperative pain ; Translations: [Other acute postprocedural pain] 12-08-2021 Episodic Other nutritional; endocrine; and metabolic disorders [...] [Body Mass Index between 19-24, adult] Episodic Past or Other Problems Problem Classification Problem Date Documented Da te Episodic/Chronic Deficiency and other anemia (3 sources) Anemia; Translations: [Anemia, unspecified] Onset: 11-04-2016 11-03-2022 Episodic Other non-epithelial cancer of skin (12 sources) 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; Translations: [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] Onset: 10-11-2022 10-11-2022 Episodic Pancreatic disorders (not diabetes) (2 sources) Other specified diseases of pancreas; Translations: [Exocrine pancreatic insufficiency] Onset: 05-12-2023 Episodic Screening and history of mental health and substance abuse codes (4 sources) Ex-smoker; Translations: [Personal history of nicotine dependence] Onset: 07-13-2023 07-13-2023 Episodic Unclassified (3 sources) Never smoked tobacco; Translations: [Never a smoker] Unclassified (1 source) Onset: 07-13-2023 07-13-2023 Results Test Name Value Interpretation Reference Range Facility ALL CBC WITH AUTO DIFFon BASOPHILS ABSOLUTE AUTO 0.1 [facility] Basophils/100 WBC (Bld) 1.2 % 0.2 - 2.0 % [facility] Eosinophils/100 WBC (Bld) 5.3 % 0.9 - 7.0 % [facility] Erythrocyte distribution width (RBC) [Ratio] 13.1 % 11.0 - 15.0 % [facility] Hematocrit (Bld) [Volume fraction] 38.3 % Low 42.0 - 54.0 % [facility] Hemoglobin (Bld) [Mass/Vol] 12.6 g/dL Low 14.0 - 18.0 g/dL [facility] IMMATURE GRANULOCYTES ABS AUTO 0.04 High [facility] Immature granulocytes/100 WBC (Bld) 0.5 % 0.0 - 0.5 % [facility] Interpretation and review of laboratory results Abnormal [facility] LYMPHOCYTES ABSOLUTE AUTO 2.2 [facility] Lymphocytes/100 WBC (Bld) 27.3 % 20.5 - 60.0 % [facility] MCH (RBC) [Entitic mass] 30.7 pg 25.9 - 34.0 pg [facility] MCHC (RBC) [Mass/Vol] 32.9 g/dL 29.9 - 35.2 g/dL [facility] MCV (RBC) [Entitic vol] 93.2 fL 80.0 - 94.0 fL [facility] MONOCYTES ABSOLUTE AUTO 0.6 [facility] Monocytes/100 WBC (Bld) 7.3 % 1.7 - 12.0 % [facility] NEUTROPHILS ABSOLUTE AUTO 4.8 [facility] Neutrophils/100 WBC (Bld) 58.4 % 43.0 - 75.0 % [facility] Platelet mean volume (Bld) [Entitic vol] 10.6 fL 9.5 - 13.5 fL [facility] TBH EO # 0.4 [facility]H PLT [address] [facility] RBC 4.11 Low [facility] TB WBC 8.1 [facility] TRANSTHORACIC ECHO (TTE) COM PLETEon 02-21-2024 TRANSTHORACIC ECHO (TTE) COMPLETE [address], [address], [place] [address] TRANSTHORACIC ECHOCARDIOGRAM REPORT Patient Name: DEV Kim Physician: [id number] Marina Goldsmith MD Study Date: 02/21/2024 Ordering Provider: [id number] ASHLEY KHOURY MRN/PID: [id number] Fellow: Nurse: Date of /Age: 1 1940 / 83 years Anatomical Embalmer: Jyoti Gutiérrez RDCS, RVT Gender: M Additional Staff: Height: 180.34 cm Admit Date: Weight: 77.11 kg Admission Status: BSA / BMI: 1.97 m2 / 23.71 kg/m2 Department Location: [facility] Blood Pressure: 142 /84 mmHg Study Type: TRANSTHORACIC ECHO (TTE) COMPLETE Diagnosis/ICD: 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; Paroxysmal atrial fibrillation-I48.0 Indication: Diabetes, HTN, Hyperlipidemia, Murmur, Former Smoker, Prostate Cancer with Metastases, CKD-Stage III CPT Codes: Echo Complete w Full Doppler-[id number] Study Detail: The following Echo studies were [...] mmHg PIEDV: 2.08 m/s PADP: 20.3 mmHg [id number] Marina Goldsmith MD Electronically signed on 02/21/2024 at 2:06:09 PM Final [facility] NUCLEAR STRESS TESTon 2023 NUCLEAR STRESS TEST Interpreted By: Clarissa Sanchez and Giannuzzi Michael STUDY: MYOCARDIAL PERFUSION STRESS TEST WITH EXERCISE Performing facility: [facility], [address] [place] [address], [address] Provider: Ashley Khoury MD, [facility] PCP: Dr. Trang Bello Supervising provider: Marina Goldsmith MD INDICATION: Abnormal EKG; PVC Murmur HISTORY: Gender: M; Age: 83 y/o ; Height: HT 180.3 cm cm; Weight: WT 77.111 kg kg. Abnormal EKG; High Cholesterol; Diabetes; HTN; Arrhythmias; A-fib Quit smoking 34 years ago. COMPARISON: Previous nuclear testing completed [id number] at [facility]. ACCESSION NUMBER(S): [id number] ORDERING CLINICIAN: ASHLEY KHOURY TECHNIQUE: ONE DAY [...] Clarissa Sanchez 02/07/2024 4:47 PM Dictation workstation: [id number] [facility] Comment on above: Order Comment: Start with exercise, may switch to alfonso PET psma initial tx sb-mton 09-13-2023 PET psma initial tx sb-mt [facility] [place] [address] Nuclear Medicine Report Signed Patient: Dev Walsh MR#: [id number] : 1940 Acct:[id number] Age/Sex: 83 / M ADM Date: 09/13/23 Loc: Room: Type: [facility] Attending Dr: NON STAFF Copies to: [...] Jordan Story M.D.09/13/2023 3:20 PM Dictation Location: [place] [address] Transcribed By: [facility] 09/13/23 1520 Dictated By: Jordan Story II, MD 09/13/23 1515 Signed By: 09/13/23 1520 Normal [facility] ECG 12 Leadon 07-13-2023 Sinus rhythm with frequent PVCs Otherwise normal EKG QTc 444 ms [facility] Work Phone: C reactive protein [Mass/vol ume] in Serum or PlasmaOrdered By: Jj Garcia on 11-26-2022 CRP [Mass/Vol] < 0.5 mg/dL 0.0-0.5 [facility] Creatinine [Mass/volume] in Serum or PlasmaOrdered By: Gabriel Bello on 11-26-2022 Creatinine [Mass/Vol] 1.55 mg/dL 0.70-1.30 [facility] Erythrocyte sedimentation ra te by Photometric methodOrdered By: Jj Garcia on 11-26-2022 ESR Photometric method (Bld) [Velocity] 18 mm/hr 0- [facility] No Panel InformationOrdered By: Gabriel Bello on 11-26-2022 Estimated GFR (CKD-EPI) 43.863 mL/Min [facility] Creatinine Clearance (Chem N/A [facility] Thyrotropin [Units/volume] i n Serum or PlasmaOrdered By: Jj Garcia on 11-26-2022 TSH Qn 1.23 m[IU]/L 0.45-5.33 [facility] Urea nitrogen [Mass/volume] in Serum or PlasmaOrdered By: Gabriel Bello on 11-26-2022 Urea nitrogen [Mass/Vol] 31 mg/dL 7 [facility] PANCREATIC ELASTASE FECALon 09-08-2022 Pancreatic Elastase, Fecal 86 ug Elast./g Critically low >200 [facility] Comment on above: Result Comment: Re sults verified by repeat testing Severe Pancreatic Insufficiency: <100 Moderate Pancreatic Insufficiency: 100 - 200 Normal: >200 Performed By: #### L IPID, TSH, CMP #### [facility] [address] [place] [address] [address] Leesa Urbina CELIAC ANTIBODIES PROFILEon 09-04-2022 Deamidated Gliadin Abs, IgA 8 units Normal 0- [facility] Comment on above: Result Comment: Nega tive 0 - 19 Weak Positive 20 - 30 Moderate to Strong Positive >30 Performed By: #### C ELIACP #### [facility] [address] [place] [address] [address] Leesa Urbina Deamidated Gliadin Abs, IgG 4 units Normal 0-19 [facility] Comment on above: Result Comment: Nega tive 0 - 19 Weak Positive 20 - 30 Moderate to Strong Positive >30 Performed By: #### C ELIACP #### [facility] [address] [place] [address] [address] Leesa Urbina Endomysial Antibody IgA Negative Normal Negative [facility] Comment on above: Performed By: #### C ELIACP #### [facility] [address] [place] [address] Dr. Leesa Urbina Immunoglobulin A, Qn, Serum 143 mg/dL Normal 61-437 [facility] Comment on above: Performed By: #### C ELIACP #### [facility] [address] [place] [address] [address] Leesa Urbina t-Transglutaminase (tTG) IgA <2 Normal 0-3 [facility] Comment on above: Result Comment: Nega tive 0 - 3 Weak Positive 4 - 10 Positive >10 . Tissue Transglutaminase (tTG) has been identified as the endomysial antigen. Studies have demonstr- ated that endomysial IgA antibodies have over 99% specificity for gluten sensitive enteropathy. Performed By: #### C ELIACP #### [facility] [address] [place] [address] Dr. Leesa Urbina t-Transglutaminase (tTG) IgG 6 U/mL Critically high 0-5 [facility] Comment on above: Result Comment: Nega tive 0 - 5 Weak Positive 6 - 9 Positive >9 Performed By: #### C ELIACP #### [facility] [address] [place] [address] Dr. Leesa Urbina CBC AUTO DIFFon 09-03-2022 BASO # 0.1 103/ul Normal 0.0-0.1 [facility] Comment on above: Performed By: #### L IPID, TSH, CMP #### [facility] [address] [place] [address] Dr. Leesa Urbina Basophils/100 WBC (Bld) 1.1 % Normal 0.2-2.0 [facility] Comment on above: Performed By: #### L IPID, TSH, CMP #### [facility] [address] [place] [address] Dr. Leesa Urbina EO # 0.6 103/ul Normal 0.0-0.7 [facility] Comment on above: Performed By: #### L IPID, TSH, CMP #### [facility] [address] [place] [address] Dr. Leesa Urbina Eosinophils/100 WBC (Bld) 7.9 % Critically high 0.9-7.0 [facility] Comment on above: Performed By: #### L IPID, TSH, CMP #### [facility] [address] [place] [address] Dr. Leesa Urbina Erythrocyte distribution width (RBC) [Ratio] 13.6 % Normal 11.0-15.0 [facility] Comment on above: Performed By: #### L IPID, TSH, CMP #### [facility] [address] [place] [address] Dr. Leesa Urbina Hematocrit (Bld) [Volume fraction] 34.4 % Critically low 42.0-54.0 [facility] Comment on above: Performed By: #### L IPID, TSH, CMP #### [facility] [address] [place] [address] Dr. Leesa Urbina Hemoglobin (Bld) [Mass/Vol] 11.4 g/dL Critically low 14.0-18.0 [facility] Comment on above: Performed By: #### L IPID, TSH, CMP #### [facility] [address] [place] [address] Dr. Leesa Urbina IG # 0.02 10e3/ul Normal 0.00-0.03 [facility] Comment on above: Performed By: #### L IPID, TSH, CMP #### [facility] [address] [place] [address] Dr. Leesa Urbina IG % 0.3 % Normal 0.0-0.5 [facility] Comment on above: Performed By: #### L IPID, TSH, CMP #### [facility] [address] [place] [address] Dr. Lesea Urbina LYMPH # 2.1 103/ul Normal 1.2-3.8 [facility] Comment on above: Performed By: #### L IPID, TSH, CMP #### [facility] [address] [place] [address] Dr. Leesa Urbina Lymphocytes/100 WBC (Bld) 28.1 % Normal 20.5-60.0 [facility] Comment on above: Performed By: #### L IPID, TSH, CMP #### [facility] [address] [place] [address] Dr. Leesa Urbina MANUAL DIFF REQ NO Normal [facility] Comment on above: Performed By: #### L IPID, TSH, CMP #### [facility] [address] [place] [address] Dr. Leesa Urbina MCH (RBC) [Entitic mass] 31.1 pg Normal 25.9-34.0 [facility] Comment on above: Performed By: #### L IPID, TSH, CMP #### [facility] [address] [place] [address] Dr. Leesa Urbina MCHC (RBC) [Mass/Vol] 33.1 g/dL Normal 29.9-35.2 [facility] Comment on above: Performed By: #### L IPID, TSH, CMP #### [facility] [address] [place] [address] Dr. Leesa Urbina MCV (RBC) [Entitic vol] 93.7 fL Normal 80.0-94.0 [facility] Comment on above: Performed By: #### L IPID, TSH, CMP #### [facility] [address] [place] [address] Dr. Leesa Urbina MONO # 0.4 103/ul Normal 0.3-0.8 [facility] Comment on above: Performed By: #### L IPID, TSH, CMP #### [facility] [address] [place] [address] Dr. Leesa Urbina Monocytes/100 WBC (Bld) 6.0 % Normal 1.7-12.0 [facility] Comment on above: Performed By: #### L IPID, TSH, CMP #### [facility] [address] [place] [address] Dr. Leesa Urbina NEUT # 4.2 103/ul Normal 1.4-6.5 [facility] Comment on above: Performed By: #### L IPID, TSH, CMP #### [facility] [address] [place] [address] [address] Leesa Urbina Neutrophils/100 WBC (Bld) 56.6 % Normal 43.0-75.0 [facility] Comment on above: Performed By: #### L IPID, TSH, CMP #### [facility] [address] [place] [address] [address] Leesa Urbina Platelet mean volume (Bld) [Entitic vol] 10.1 fL Normal 9.5-13.5 [facility] Comment on above: Performed By: #### L IPID, TSH, CMP #### [facility] [address] [place] [address] [address] Leesa Urbina PLT 195 103/ul Normal 150-450 [facility] Comment on above: Performed By: #### L IPID, TSH, CMP #### [facility] [address] [place] [address] Dr. Leesa Urbina RBC 3.67 106/ul Critically low 4.70-6.10 [facility] Comment on above: Performed By: #### L IPID, TSH, CMP #### [facility] [address] [place] [address] Dr. Leesa Urbina WBC 7.3 103/ul Normal 4.0-11.0 [facility] Comment on above: Performed By: #### L IPID, TSH, CMP #### [facility] [address] [place] [address] Dr. Leesa Urbina FERRITINon 09-03-2022 Ferritin [Mass/Vol] 44.0 ng/mL Normal 26.0-388.[address] [facility] Comment on above: Performed By: #### F ERR, FETIBC #### [facility] [address] [place] [address] Dr. Leesa Urbina IRON AND TIBCon 09-03-2022 % SATURATION 23.5 % Normal [facility] Comment on above: Performed By: #### F ERR, FETIBC #### [facility] [address] [address] [address] Leesa Urbina Iron [Mass/Vol] 69.0 ug/dL Normal 65.0-175.0 [facility] Comment on above: Performed By: #### F ERR, FETIBC #### [facility] [address] [place], [place] [address] Dr. Leesa Urbina TIBC DIRECT 294.0 ug/dL Normal 250.0-450.0 [facility] [place] Comment on above: Performed By: #### F ERR, FETIBC #### [facility] [address] [place], [place] [address] Dr. Leesa Urbina Office Visit (Cardiology)on 07-14-2022 Follow-up visit Diagnoses/Problems Assessed Anticoagulated (V58.61) (Z79.01) Benign essential hypertension (401.1) (I10) Hyperlipidemia (272.4) (E78.5) Paroxysmal atrial fibrillation (427.31) (I48.0) Diabetes mellitus (250.00) (E11.9) Body mass index (BMI) of 24.0 to 24.9 in adult (V85.1) (Z68.24) Never a smoker Orders SocHx: Never a smoker Tobacco Use Screening; Status:Complete; Done: [id number] Patient Instructions Please bring all medicines, vitamins, [...] negative for complaint. Vitals Vital Signs Recorded: [id number] 09:08AM Heart Rate68, L Radial Hmywkwif764, LUE, Sitting Kkycyackq83, LUE, Sitting Height5 ft 11 in Rnomvd203 lb BMI Woatduuvau94.13 kg/m2 BSA Calculated1.98 Tobacco Useb) No PHQ-2 [...] Jul 14 2022 10:20AM EST (Author) Normal [facility] Tobacco Screening.on 023 Adult depression screening assessment No [facility] 250 DO Work Phone: Fall risk assessment a) No falls within the last year [facility] 250 DO Work Phone: Tobacco use status [facility]PH[facility] b) No [facility] 250 DO Work Phone: CBC AUTO DIFFon 05-06-2022 BASO # 0.1 103/ul Normal 0.0-0.1 [facility] Comment on above: Performed By: #### C BC #### [facility] [address] [place] [address] Dr. Leesa Urbina Basophils/100 WBC (Bld) 1.4 % Normal 0.2-2.0 [facility] Comment on above: Performed By: #### C BC #### [facility] [address] [place] [address] Dr. Leesa Urbina EO # 0.4 103/ul Normal 0.0-0.7 [facility] Comment on above: Performed By: #### C BC #### [facility] [address] [place] [address] Dr. Leesa Urbina Eosinophils/100 WBC (Bld) 5.4 % Normal 0.9-7.0 [facility] Comment on above: Performed By: #### C BC #### [facility] [address] [place] [address] Dr. Leesa Urbina Erythrocyte distribution width (RBC) [Ratio] 13.3 % Normal 11.0-15.0 [facility] Comment on above: Performed By: #### C BC #### [facility] [address] [place] [address] Dr. Leesa Urbina Hematocrit (Bld) [Volume fraction] 35.8 % Critically low 42.0-54.0 [facility] Comment on above: Performed By: #### C BC #### [facility] [address] [place] [address] Dr. Leesa Urbina Hemoglobin (Bld) [Mass/Vol] 12.0 g/dL Critically low 14.0-18.0 [facility] Comment on above: Performed By: #### C BC #### [facility] [address] [place] [address] Dr. Leesa Urbina IG # 0.01 10e3/ul Normal 0.00-0.03 [facility] Comment on above: Performed By: #### C BC #### [facility] [address] [place] [address] Dr. Leesa Urbina IG % 0.2 % Normal 0.0-0.5 [facility] Comment on above: Performed By: #### C BC #### [facility] [address] [place] [address] Dr. Leesa Urbina LYMPH # 1.7 103/ul Normal 1.2-3.8 [facility] Comment on above: Performed By: #### C BC #### [facility] [address] [place] [address] Dr. Leesa Urbina Lymphocytes/100 WBC (Bld) 26.1 % Normal 20.5-60.0 [facility] Comment on above: Performed By: #### C BC #### [facility] [address] [place] [address] Dr. Leesa Urbina MANUAL DIFF REQ NO Normal [facility] Comment on above: Performed By: #### C BC #### [facility] [address] [place] [address] Dr. Leesa Urbina MCH (RBC) [Entitic mass] 31.0 pg Normal 25.9-34.0 [facility] Comment on above: Performed By: #### C BC #### [facility] [address] [place] [address] Dr. Leesa Urbina MCHC (RBC) [Mass/Vol] 33.5 g/dL Normal 29.9-35.2 [facility] Comment on above: Performed By: #### C BC #### [facility] [address] [place] [address] Dr. Leesa Urbina MCV (RBC) [Entitic vol] 92.5 fL Normal 80.0-94.0 [facility] Comment on above: Performed By: #### C BC #### [facility] [address] [place] [address] Dr. Leesa Urbina MONO # 0.4 103/ul Normal 0.3-0.8 [facility] Comment on above: Performed By: #### C BC #### [facility] [address] [place] [address] Dr. Leesa Urbina Monocytes/100 WBC (Bld) 6.5 % Normal 1.7-12.0 [facility] Comment on above: Performed By: #### C BC #### [facility] [address] [place] [address] Dr. Leesa Urbina NEUT # 4.0 103/ul Normal 1.4-6.5 [facility] Comment on above: Performed By: #### C BC #### [facility] [address] [place] [address] Dr. Leesa Urbina Neutrophils/100 WBC (Bld) 60.4 % Normal 43.0-75.0 [facility] Comment on above: Performed By: #### C BC #### [facility] [address] [place] [address] Dr. Leesa Urbina Platelet mean volume (Bld) [Entitic vol] 10.6 fL Normal 9.5-13.5 [facility] Comment on above: Performed By: #### C BC #### [facility] [address] [address] [address] Leesa Urbina PLT 185 103/ul Normal 150-450 [facility] Comment on above: Performed By: #### C BC #### [facility] [address] [address] [address] Leesa Urbina RBC 3.87 106/ul Critically low 4.70-6.10 [facility] Comment on above: Performed By: #### C BC #### [facility] [address] [address] [address] Leesa Urbina WBC 6.6 103/ul Normal 4.0-11.0 [facility] Comment on above: Performed By: #### C BC #### [facility] [address] [place] [address] Dr. Leesa Urbina GLYCOHEMOGLOBIN A1Con 2021 ADA RECOMMENDATION SEE BELOW Normal [facility] Comment on above: Result Comment: ADA RECOMMENDED LIMIT 4.0 - 6.0 ADA THERAPEUTIC TARGET < 7.0 ACTION SUGGESTED > 7.0 Performed By: #### A 1C #### [facility] [address] [place] [address] Dr. Leesa Urbina Glucose [Mass/Vol] 151 mg/dL Normal [facility] Comment on above: Performed By: #### A 1C #### [facility] [address] [place] [address] Dr. Leesa Urbina HbA1c (Bld) [Mass fraction] 6.9 % Critically high 4.5-6.2 [facility] Comment on above: Performed By: #### A 1C #### [facility] [address] [place] [address] Dr. Leesa Urbina LIPID PROFILEon 05-06-2022 CHOL-HDL RATIO NORM SEE BELOW Normal [facility] Comment on above: Result Comment: 3.3 - 4.4 LOW RISK 4.4 - 7.1 AVERAGE RISK 7.1 - 11.0 MODERATE RISK >11.0 HIGH RISK Performed By: #### L IPID, TSH, CMP #### [facility] [address] [place] [address] Dr. Leesa Urbina Cholesterol [Mass/Vol] 136 mg/dL Normal <=200 [facility] Comment on above: Performed By: #### L IPID, TSH, CMP #### [facility] [address] [address] [address] Leesa Urbina Cholesterol in HDL [Mass/Vol] 62 mg/dL Critically high 40-60 [facility] Comment on above: Performed By: #### L IPID, TSH, CMP #### [facility] [address] [address] [address] Leesa Urbina Cholesterol in LDL [Mass/Vol] 53.0 mg/dL Normal [facility] Comment on above: Performed By: #### L IPID, TSH, CMP #### [facility] [address] [address] [address] Leesa Urbina Cholesterol.total/Chol esterol in HDL [Mass ratio] 2.2 {ratio} Normal [facility] Comment on above: Performed By: #### L IPID, TSH, CMP #### [facility] [address] [address] [address] Leesa Urbina HDL NORMAL > or = 60 mg/dl - LO W CARDIOVASCULAR RISK <40 mg/dl - HIGH CARDIOVASCULAR RISK Normal [facility] Comment on above: Performed By: #### L IPID, TSH, CMP #### [facility] [address] [address] [address] Leesa Urbina LDL CALC NORMAL SEE BELOW Normal [facility] Comment on above: Result Comment: <100 mg/dl OPTIMAL 100 - 129 mg/dl NEAR OR ABOVE OPTIMAL 130 - 159 mg/dl BORDERLINE HIGH 160 - 189 mg/dl HIGH >190 mg/dl VERY HIGH Performed By: #### L IPID, TSH, CMP #### [facility] [address] [address] [address] Leesa Urbina Triglyceride [Mass/Vol] 105 mg/dL Normal <=150 [facility] Comment on above: Performed By: #### L IPID, TSH, CMP #### [facility] [address] [address] [address] Leesa Urbina VLDL CALC 21.0 mg/dL Normal [facility] Comment on above: Performed By: #### L IPID, TSH, CMP #### [facility] [address] [address] [address] Leesa Urbina PROF 14(COMP METB)on 022 Albumin [Mass/Vol] 3.4 g/dL Normal 3.4-5.0 [facility] Comment on above: Performed By: #### L IPID, TSH, CMP #### [facility] [address] [address] [address] Leesa Urbina Albumin/Globulin [Mass ratio] 1.1 {ratio} Normal [facility] Comment on above: Performed By: #### L IPID, TSH, CMP #### [facility] [address] [place] [address] Dr. Leesa Urbina ALP [Catalytic activity/Vol] 77 U/L Normal 46-116 [facility] Comment on above: Performed By: #### L IPID, TSH, CMP #### [facility] [address] [address] [address] Leesa Urbina ALT [Catalytic activity/Vol] 12 U/L Critically low 16-63 [facility] Comment on above: Performed By: #### L IPID, TSH, CMP #### [facility] [address] [place] [address] Dr. Leesa Urbina Anion gap [Moles/Vol] 12.7 mmol/L Normal [facility] Comment on above: Performed By: #### L IPID, TSH, CMP #### [facility] [address] [place] [address] Dr. Leesa Urbina AST [Catalytic activity/Vol] 19 U/L Normal 15-37 [facility] Comment on above: Performed By: #### L IPID, TSH, CMP #### [facility] [address] [place] [address] Dr. Leesa Urbina Bilirubin [Mass/Vol] 0.4 mg/dL Normal 0.2-1.0 [facility] Comment on above: Performed By: #### L IPID, TSH, CMP #### [facility] [address] [address] [address] Leesa Urbina Calcium [Mass/Vol] 8.5 mg/dL Normal 8.5-10.1 [facility] Comment on above: Performed By: #### L IPID, TSH, CMP #### [facility] [address] [place] [address] Dr. Leesa Urbina Chloride [Moles/Vol] 107 mmol/L Normal 98-107 [facility] Comment on above: Performed By: #### L IPID, TSH, CMP #### [facility] [address] [place] [address] Dr. Leesa Urbina CO2 [Moles/Vol] 27.4 mmol/L Normal 21.0-32.0 [facility] Comment on above: Performed By: #### L IPID, TSH, CMP #### [facility] [address] [place] [address] Dr. Leesa Urbina Creatinine [Mass/Vol] 1.06 mg/dL Normal 0.70-1.30 [facility] Comment on above: Performed By: #### L IPID, TSH, CMP #### [facility] [address] [place] [address] Dr. Leesa Urbina EGFR-AF PANAMANIAN >60 Normal >=60 [facility] Comment on above: Performed By: #### L IPID, TSH, CMP #### [facility] [address] [place] [address] Dr. Leesa Urbina EGFR-NON AF PANAMANIAN >60 Normal >=60 [facility] Comment on above: Performed By: #### L IPID, TSH, CMP #### [facility] [address] [place] [address] Dr. Leesa Urbina Globulin (S) [Mass/Vol] 3.1 g/dL Normal [facility] Comment on above: Performed By: #### L IPID, TSH, CMP #### [facility] [address] [place] [address] Dr. Leesa Urbina Glucose [Mass/Vol] 171 mg/dL Critically high 74-106 T [facility] Comment on above: Performed By: #### L IPID, TSH, CMP #### [facility] [address] [address] [address] Leesa Urbina Potassium [Moles/Vol] 4.1 mmol/L Normal 3.5-5.1 [facility] Comment on above: Performed By: #### L IPID, TSH, CMP #### [facility] [address] [place] [address] Dr. Leesa Urbina Protein [Mass/Vol] 6.5 g/dL Normal 6.4-8.2 [facility] Comment on above: Performed By: #### L IPID, TSH, CMP #### [facility] [address] [place] [address] Dr. Leesa Urbina Sodium [Moles/Vol] 143 mmol/L Normal 136-145 [facility] Comment on above: Performed By: #### L IPID, TSH, CMP #### [facility] [address] [place] [address] Dr. Leesa Urbina Urea nitrogen [Mass/Vol] 24.0 mg/dL Critically high 7.0-18.0 [facility] Comment on above: Performed By: #### L IPID, TSH, CMP #### [facility] [address] [place] [address] Dr. Leesa Urbina Urea nitrogen/Creatinine [Mass ratio] 22.6 mg/mg Normal [facility] Comment on above: Performed By: #### L IPID, TSH, CMP #### [facility] [address] [place] [address] Dr. Leesa Urbina Basophils Auto (Bld) [#/Vol] Ordered By: Juan Ventura on 12-05-2021 Basophils (Bld) [#/Vol] 0.1 10*3/uL 0.0-0.2 [facility] Basophils/100 WBC Auto (Bld) Ordered By: Juan Ventura on 12-05-2021 Basophils/100 WBC (Bld) 0.9 % [facility] Blood hemoglobin measurement (mass/volume)Ordered By: Juan Ventura on 12-05-2021 Hemoglobin (Bld) [Mass/Vol] 12.4 g/dL 13.0-17.0 [facility] Blood leukocytes automated c ount (number/volume)Ordered By: Juan Ventura on 12-05-2021 WBC (Bld) [#/Vol] 7.0 10*3/uL 4.5-11.0 [facility] COVID-19 Positive/NegativeOr dered By: Juan Ventura on 12-05-2021 SARS-CoV-2 (COVID-19) N gene RENETTA+probe Ql (Resp) Negative Negative [facility] Comment on above: Testing for SARS-CoV -2 by RT-PCR This test was developed and its performance characteristics determined by [employer] ([facility]) and validated at the [facility]. This test has not been FDA [...] on 12-05-2021 Creatinine [Mass/Vol] 1.28 mg/dL 0.64-1.27 [facility] Eosinophils Auto (Bld) [#/Vo l]Ordered By: Juan Ventura on 12-05-2021 Eosinophils (Bld) [#/Vol] 0.1 10*3/uL 0.0-0.45 [facility] Eosinophils/100 WBC Auto (Bl d)Ordered By: Juan Ventura on 12-05-2021 Eosinophils/100 WBC (Bld) 2.1 % [facility] Erythrocyte distribution wid th Auto (RBC) [Ratio]Ordered By: Juan Ventura on 12-05-2021 Erythrocyte distribution width (RBC) [Ratio] 14.6 % 12.0-14.8 [facility] Estimated glomerular filtrat ion rate (GFR) non- AmericanOrdered By: Juan Ventura on 12-05-2021 GFR/1.73 sq M.predicted among non-blacks MDRD (S/P/Bld) [Vol rate/Area] 54 mL/Min [facility] Hematocrit Auto (Bld) [Volum e fraction]Ordered By: Juan Ventura on 12-05-2021 Hematocrit (Bld) [Volume fraction] 37.3 % 38.8-50.0 [facility] - Hematology and Cell countsOrdered By: Juan Ventura on 12-05-2021 Nucleated RBC/100 WBC (Bld) [Ratio] 0.0 % 0-0.5 [facility] Lymphocytes Auto (Bld) [#/Vo l]Ordered By: Juan Ventura on 12-05-2021 Lymphocytes (Bld) [#/Vol] 1.4 10*3/uL 1.00-4.8 [facility] Lymphocytes/100 WBC Auto (Bl d)Ordered By: Juan Ventura on 12-05-2021 Lymphocytes/100 WBC (Bld) 19.8 % [facility] MCH Auto (RBC) [Entitic mass ]Ordered By: Juan Ventura on 12-05-2021 MCH (RBC) [Entitic mass] 30.8 pg 27.5-35.2 [facility] MCHC Auto (RBC) [Mass/Vol]Or dered By: Juan Ventura on 12-05-2021 MCHC (RBC) [Mass/Vol] 33.1 g/dL 32.5-35.6 [facility] MCV Auto (RBC) [Entitic vol] Ordered By: Juan Ventura on 12-05-2021 MCV (RBC) [Entitic vol] 93.1 fL 83.5-101 [facility] Monocytes Auto (Bld) [#/Vol] Ordered By: Juan Ventura on 12-05-2021 Monocytes (Bld) [#/Vol] 0.5 10*3/uL 0.0-0.8 [facility] Monocytes/100 WBC Auto (Bld) Ordered By: Juan Ventura on 12-05-2021 Monocytes/100 WBC (Bld) 7.3 % [facility] Neutrophils Auto (Bld) [#/Vo l]Ordered By: Juan Ventura on 12-05-2021 Neutrophils (Bld) [#/Vol] 4.9 10*3/uL 1.8-7.7 [facility] Neutrophils/100 WBC Auto (Bl d)Ordered By: Juan Ventura on 12-05-2021 Neutrophils/100 WBC (Bld) 69.9 % [facility] No Panel InformationOrdered By: Juan Ventura on 12-05-2021 Estimated GFR () > 60 mL/Min [facility] Comment on above: GFR estimated refere nce range: According to KDOQI guidelines, <60 ml/min/1.73m2 is sufficient to diagnose a patient with chronic kidney disease. Pharmacy Creatinine Clearance (Chem N/A [facility] Platelet mean volume Auto (B ld) [Entitic vol]Ordered By: Juan Ventura on 12-05-2021 Platelet mean volume (Bld) [Entitic vol] 8.9 fL 6.6-10.1 [facility] Platelets Auto (Bld) [#/Vol] Ordered By: Juan Ventura on 12-05-2021 Platelets (Bld) [#/Vol] 194 10*3/uL 150-450 [facility] RBC Auto (Bld) [#/Vol]Ordere d By: Juan Ventura on 12-05-2021 RBC (Bld) [#/Vol] 4.00 10*6/uL 3.90-5.60 [facility] Serum or plasma calcium fco urement (mass/volume)Ordered By: Juan Ventura on 12-05-2021 Calcium [Mass/Vol] 9.2 mg/dL 8.2-10.2 [facility] Serum or plasma chloride daniel surement (moles/volume)Ordered By: Juan Ventura on 07-15-2022 Chloride [Moles/Vol] 107 mmol/L 95-114 [facility] Serum or plasma glucose fco urement (mass/volume)Ordered By: Juan Ventura on 12-05-2021 Glucose [Mass/Vol] 117 mg/dL 70-100 [facility] Comment on above: ADA recommended refe rence range Random Glucose Reference Range is dependent on time and content of last meal. Glucose of more than 200 mg/dL in a nonstressed, ambulatory subject supports the diagnosis of Diabetes Mellitus. Serum or plasma potassium me asurement (moles/volume)Ordered By: Juan Ventura on 12-05-2021 Potassium [Moles/Vol] 4.6 mmol/L 3.5-5.1 [facility] Serum or plasma sodium measu rement (moles/volume)Ordered By: Juan Ventura on 12-05-2021 Sodium [Moles/Vol] 141 mmol/L 136-146 [facility] Serum or plasma total carbon dioxide measurement (moles/volume)Ordered By: Juan Ventura on 12-05-2021 CO2 [Moles/Vol] 26.2 mmol/L 22.0-30.0 [facility] Serum or plasma urea nitroge n measurement (mass/volume)Ordered By: Juan Ventura on 12-05-2021 Urea nitrogen [Mass/Vol] 23 mg/dL 9-23 [facility] CBC AUTO DIFFon 11-05-2021 BASO # 0.1 103/ul Normal 0.0-0.1 [facility] Comment on above: Performed By: #### C BC #### [facility] [address] [address] [address] Leesa Urbina Basophils/100 WBC (Bld) 0.8 % Normal 0.2-2.0 [facility] Comment on above: Performed By: #### C BC #### [facility] [address] [address] [address] Leesa Urbina EO # 0.4 103/ul Normal 0.0-0.7 [facility] Comment on above: Performed By: #### C BC #### [facility] [address] [address] [address] Leesa Urbina Eosinophils/100 WBC (Bld) 5.6 % Normal 0.9-7.0 [facility] Comment on above: Performed By: #### C BC #### [facility] [address] [place] [address] Dr. Leesa Urbina Erythrocyte distribution width (RBC) [Ratio] 13.4 % Normal 11.0-15.0 [facility] Comment on above: Performed By: #### C BC #### [facility] [address] [place] [address] Dr. Leesa Urbina Hematocrit (Bld) [Volume fraction] 36.1 % Critically low 42.0-54.0 [facility] Comment on above: Performed By: #### C BC #### [facility] [address] [place] [address] Dr. Leesa Urbina Hemoglobin (Bld) [Mass/Vol] 11.8 g/dL Critically low 14.0-18.0 [facility] Comment on above: Performed By: #### C BC #### [facility] [address] [place] [address] Dr. Leesa Urbina IG # 0.02 10e3/ul Normal 0.00-0.03 [facility] Comment on above: Performed By: #### C BC #### [facility] [address] [place] [address] Dr. Leesa Urbina IG % 0.3 % Normal 0.0-0.5 [facility] Comment on above: Performed By: #### C BC #### [facility] [address] [place] [address] Dr. Leesa Urbina LYMPH # 1.8 103/ul Normal 1.2-3.8 [facility] Comment on above: Performed By: #### C BC #### [facility] [address] [place] [address] Dr. Leesa Urbina Lymphocytes/100 WBC (Bld) 28.4 % Normal 20.5-60.0 [facility] Comment on above: Performed By: #### C BC #### [facility] [address] [place] [address] Dr. Leesa Urbina MANUAL DIFF REQ NO Normal [facility] Comment on above: Performed By: #### C BC #### [facility] [address] [place] [address] Dr. Leesa Urbina MCH (RBC) [Entitic mass] 30.7 pg Normal 25.9-34.0 [facility] Comment on above: Performed By: #### C BC #### [facility] [address] [place] [address] Dr. Leesa Urbina MCHC (RBC) [Mass/Vol] 32.7 g/dL Normal 29.9-35.2 [facility] Comment on above: Performed By: #### C BC #### [facility] [address] [place] [address] Dr. Leesa Urbina MCV (RBC) [Entitic vol] 94.0 fL Normal 80.0-94.0 [facility] Comment on above: Performed By: #### C BC #### [facility] [address] [place] [address] Dr. Leesa Urbina MONO # 0.5 103/ul Normal 0.3-0.8 [facility] Comment on above: Performed By: #### C BC #### [facility] [address] [place] [address] Dr. Leesa Urbina Monocytes/100 WBC (Bld) 8.1 % Normal 1.7-12.0 [facility] Comment on above: Performed By: #### C BC #### [facility] [address] [place] [address] Dr. Leesa Urbina NEUT # 3.5 103/ul Normal 1.4-6.5 [facility] Comment on above: Performed By: #### C BC #### [facility] [address] [place] [address] Dr. Leesa Urbina Neutrophils/100 WBC (Bld) 56.8 % Normal 43.0-75.0 [facility] Comment on above: Performed By: #### C BC #### [facility] [address] [place] [address] Dr. Leesa Urbina Platelet mean volume (Bld) [Entitic vol] 10.3 fL Normal 9.5-13.5 [facility] Comment on above: Performed By: #### C BC #### [facility] [address] [address] [address] Leesa Urbina PLT 179 103/ul Normal 150-450 [facility] Comment on above: Performed By: #### C BC #### [facility] [address] [address] [address] Leesa Urbina RBC 3.84 106/ul Critically low 4.70-6.10 [facility] Comment on above: Performed By: #### C BC #### [facility] [address] [address] [address] Leesa Urbina WBC 6.2 103/ul Normal 4.0-11.0 [facility] Comment on above: Performed By: #### C BC #### [facility] [address] [place] [address] Dr. Leesa Urbina GLYCOHEMOGLOBIN A1Con 2021 ADA RECOMMENDATION SEE BELOW Normal [facility] Comment on above: Result Comment: ADA RECOMMENDED LIMIT 4.0 - 6.0 ADA THERAPEUTIC TARGET < 7.0 ACTION SUGGESTED > 7.0 Performed By: #### L IPID, TSH, CMP #### [facility] [address] [place] [address] Dr. Leesa Urbina Glucose [Mass/Vol] 151 mg/dL Normal [facility] Comment on above: Performed By: #### L IPID, TSH, CMP #### [facility] [address] [place] [address] Dr. Leesa Urbina HbA1c (Bld) [Mass fraction] 6.9 % Critically high 4.5-6.2 [facility] Comment on above: Performed By: #### L IPID, TSH, CMP #### [facility] [address] [place] [address] Dr. Leesa Urbina LIPID PROFILEon 11-05-2021 CHOL-HDL RATIO NORM SEE BELOW Normal [facility] Comment on above: Result Comment: 3.3 - 4.4 LOW RISK 4.4 - 7.1 AVERAGE RISK 7.1 - 11.0 MODERATE RISK >11.0 HIGH RISK Performed By: #### L IPID, TSH, CMP #### [facility] [address] [address] [address] Leesa Urbina Cholesterol [Mass/Vol] 150 mg/dL Normal <=200 [facility] Comment on above: Performed By: #### L IPID, TSH, CMP #### [facility] [address] [address] [address] Leesa Urbina Cholesterol in HDL [Mass/Vol] 60 mg/dL Normal 40-60 [facility] Comment on above: Performed By: #### L IPID, TSH, CMP #### [facility] [address] [place] [address] Dr. Leesa Urbina Cholesterol in LDL [Mass/Vol] 70.8 mg/dL Normal [facility] Comment on above: Performed By: #### L IPID, TSH, CMP #### [facility] [address] [place] [address] Dr. Leesa Urbina Cholesterol.total/Chol esterol in HDL [Mass ratio] 2.5 {ratio} Normal [facility] Comment on above: Performed By: #### L IPID, TSH, CMP #### [facility] [address] [place] [address] Dr. Leesa Urbina HDL NORMAL > or = 60 mg/dl - LO W CARDIOVASCULAR RISK <40 mg/dl - HIGH CARDIOVASCULAR RISK Normal [facility] Comment on above: Performed By: #### L IPID, TSH, CMP #### [facility] [address] [place] [address] Dr. Leesa Urbina LDL CALC NORMAL SEE BELOW Normal [facility] Comment on above: Result Comment: <100 mg/dl OPTIMAL 100 - 129 mg/dl NEAR OR ABOVE OPTIMAL 130 - 159 mg/dl BORDERLINE HIGH 160 - 189 mg/dl HIGH >190 mg/dl VERY HIGH Performed By: #### L IPID, TSH, CMP #### [facility] [address] [address] [address] Leesa Urbina Triglyceride [Mass/Vol] 96 mg/dL Normal <=150 [facility] Comment on above: Performed By: #### L IPID, TSH, CMP #### [facility] [address] [address] [address] Leesa Urbina VLDL CALC 19.2 mg/dL Normal [facility] Comment on above: Performed By: #### L IPID, TSH, CMP #### [facility] [address] [address] [address] Leesa Urbina MICROALB CREAT RATIO RANDOMo n 11-05-2021 mALB <1.3 Normal <=30.0 [facility] Comment on above: Performed By: #### L IPID, TSH, CMP #### [facility] [address] [address] [address] Leesa JOHNS CR RATIO 11.4 mg/g Normal 0.0-29.9 [facility] Comment on above: Performed By: #### L IPID, TSH, CMP #### [facility] [address] [address] [address] Leesa Urbina MALB CR RATIO RANGE SEE BELOW Normal [facility] Comment on above: Result Comment: NO M ICROALBUMINURIA 0-29 MG/G CLINICAL MICROALBUMINURIA 30-300 MG/G MACROALBUMINURIA >300 MG/G Performed By: #### L IPID, TSH, CMP #### [facility] [address] [address] [address] Leesa Urbina URINE CREAT 114.03 mg/dL Normal 20.00-300.00 [facility] Comment on above: Performed By: #### L IPID, TSH, CMP #### [facility] [address] [address] [address] Leesa Urbina PROF 14(COMP METB)on 022 Albumin [Mass/Vol] 2.3 g/dL Critically low 3.4-5.0 [facility] Comment on above: Performed By: #### L IPID, TSH, CMP #### [facility] [address] [place] [address] Dr. Leesa Urbina Albumin/Globulin [Mass ratio] 0.5 {ratio} Normal [facility] Comment on above: Performed By: #### L IPID, TSH, CMP #### [facility] [address] [address] [address] Leesa Urbina ALP [Catalytic activity/Vol] 77 U/L Normal 46-116 [facility] Comment on above: Performed By: #### L IPID, TSH, CMP #### [facility] [address] [place] [address] Dr. Leesa Urbina ALT [Catalytic activity/Vol] 16 U/L Normal 16-63 [facility] Comment on above: Performed By: #### L IPID, TSH, CMP #### [facility] [address] [place] [address] Dr. Leesa Urbina Anion gap [Moles/Vol] 13.8 mmol/L Normal [facility] Comment on above: Performed By: #### L IPID, TSH, CMP #### [facility] [address] [place] [address] Dr. Leesa Urbina AST [Catalytic activity/Vol] 15 U/L Normal 15-37 [facility] Comment on above: Performed By: #### L IPID, TSH, CMP #### [facility] [address] [place] [address] Dr. Leesa Urbina Bilirubin [Mass/Vol] 0.5 mg/dL Normal 0.2-1.0 [facility] Comment on above: Performed By: #### L IPID, TSH, CMP #### [facility] [address] [place] [address] Dr. Leesa Urbina Calcium [Mass/Vol] 8.7 mg/dL Normal 8.5-10.1 [facility] Comment on above: Performed By: #### L IPID, TSH, CMP #### [facility] [address] [place] [address] Dr. Leesa Urbina Chloride [Moles/Vol] 107 mmol/L Normal 98-107 [facility] Comment on above: Performed By: #### L IPID, TSH, CMP #### [facility] [address] [place] [address] Dr. Leesa Urbina CO2 [Moles/Vol] 26.2 mmol/L Normal 21.0-32.0 [facility] Comment on above: Performed By: #### L IPID, TSH, CMP #### [facility] [address] [address] [address] Leesa Urbina Creatinine [Mass/Vol] 1.25 mg/dL Normal 0.70-1.30 [facility] Comment on above: Performed By: #### L IPID, TSH, CMP #### [facility] [address] [address] [address] Leesa Urbina EGFR-AF PANAMANIAN >60 Normal >=60 [facility] Comment on above: Performed By: #### L IPID, TSH, CMP #### [facility] [address] [place] [address] Dr. Leesa Urbina EGFR-NON AF PANAMANIAN 55 mL/min/1.73m2 Critically low >=60 [facility] Comment on above: Performed By: #### L IPID, TSH, CMP #### [facility] [address] [place] [address] Dr. Leesa Urbina Globulin (S) [Mass/Vol] 4.3 g/dL Normal [facility] Comment on above: Performed By: #### L IPID, TSH, CMP #### [facility] [address] [place] [address] Dr. Leesa Urbina Glucose [Mass/Vol] 137 mg/dL Critically high 74-106 [facility] Comment on above: Performed By: #### L IPID, TSH, CMP #### [facility] [address] [place] [address] Dr. Leesa Urbina Potassium [Moles/Vol] 4.0 mmol/L Normal 3.5-5.1 [facility] Comment on above: Performed By: #### L IPID, TSH, CMP #### [facility] [address] [place] [address] Dr. Leesa Urbina Protein [Mass/Vol] 6.6 g/dL Normal 6.4-8.2 [facility] Comment on above: Performed By: #### L IPID, TSH, CMP #### [facility] [address] [address] [address] Leesa Urbina Sodium [Moles/Vol] 143 mmol/L Normal 136-145 [facility] Comment on above: Performed By: #### L IPID, TSH, CMP #### [facility] [address] [address] [address] Leesa Urbina Urea nitrogen [Mass/Vol] 24.0 mg/dL Critically high 7.0-18.0 [facility] Comment on above: Performed By: #### L IPID, TSH, CMP #### [facility] [address] [address] [address] Leesa Urbina Urea nitrogen/Creatinine [Mass ratio] 19.2 mg/mg Normal [facility] Comment on above: Performed By: #### L IPID, TSH, CMP #### [facility] [address] [address] [address] Leesa Urbina TSHon 11-05-2021 TSH 0.996 uIU/mL Normal 0.358-3.740 [facility] Comment on above: Performed By: #### L IPID, TSH, CMP #### [facility] [address] [address] [address] Leesa Urbina Tobacco Screening.on 022 Adult depression screening assessment No [facility] [facility] 250 DO Work Phone: Fall risk assessment a) No falls within the last year [facility] [facility] 250 DO Work Phone: Tobacco use status [facility] b) No [facility] [facility] 250 DO Work Phone: Vital Signs Date Time Vital Sign Value Performing Clinician Facility 07-13-2023 08:34-0500 Body height 180.3 cm Dev Camp MD Work Phone: [facility] 07-13-2023 08:34-0500 Body mass index (BMI) [Ratio] 23.99 kg/m2 Dev Camp MD Work Phone: [facility] 07-13-2023 08:34-0500 Body weight 78.02 kg Dev Camp MD Work Phone: [facility] 07-13-2023 08:34-0500 Diastolic blood pressure 64 mm[Hg] Dev Camp MD Work Phone: [facility] 07-13-2023 08:34-0500 Heart rate 60 /min Dev Camp MD Work Phone: [facility] 07-13-2023 08:34-0500 Systolic blood pressure 108 mm[Hg] Dev Camp MD Work Phone: [facility] 11-17-2022 14:15-0400 Body height 180.34 cm Imad Asaad Other [facility] [employer] Other 11-17-2022 14:15-0400 Body mass index (BMI) [Ratio] 23.71 kg/m2 Imad Asaad Other [facility] [employer] Other 11-17-2022 14:15-0400 Body weight 77.11 kg Imad Asaad Other [place] Other 11-17-2022 14:15-0400 Diastolic blood pressure 78 mm[Hg] Imad Asaad Other [place] [employer] Other 11-17-2022 14:15-0400 Systolic blood pressure 127 mm[Hg] Imad Asaad Other [employer] Other 07-14-2022 09:08-0500 Body height 180.34 cm Gabriel Bello Work Phone: [facility] 250 DO Work Phone: 07-14-2022 09:08-0500 Body mass index (BMI) [Ratio] 24.13 kg/m2 Gabriel Bello Work Phone: [facility] 250 DO Work Phone: 07-14-2022 09:08-0500 Body surface area Derived from formula 1.98 m2 Gabriel Bello Work Phone: [facility] 250 DO Work Phone: 07-14-2022 09:08-0500 Body weight 78.47 kg Gabriel Bello Work Phone: [facility] 250 DO Work Phone: 07-14-2022 09:08-0500 Diastolic blood pressure 78 mm[Hg] Gabriel Bello Work Phone: [facility] 250 DO Work Phone: 07-14-2022 09:08-0500 Heart rate 68 /min Gabriel eBllo Work Phone: [facility] 250 DO Work Phone: 07-14-2022 09:08-0500 Systolic blood pressure 124 mm[Hg] Gabriel Bello Work Phone: [facility] 250 DO Work Phone: 07-03-2021 15:20-0500 Diastolic blood pressure 78 mm[Hg] Gabriel Bello Work Phone: [facility] 250 DO Work Phone: 07-03-2021 15:20-0500 Heart rate 65 /min Gabriel Bello Work Phone: [facility] 250 DO Work Phone: 07-03-2021 15:20-0500 Systolic blood pressure 136 mm[Hg] Gabriel Bello Work Phone: [facility] 250 DO Work Phone: 07-03-2021 15:17-0500 Body height 180.34 cm Gabriel Bello Work Phone: [facility] 250 DO Work Phone: 07-03-2021 15:17-0500 Body mass index (BMI) [Ratio] 24.97 kg/m2 Gabriel Bello Work Phone: [facility] 250 DO Work Phone: 07-03-2021 15:17-0500 Body surface area Derived from formula 2.01 m2 Gabriel Bello Work Phone: [facility] 250 DO Work Phone: 07-03-2021 15:17-0500 Body weight 81.19 kg Gabriel Bello Work Phone: [facility] 250 DO Work Phone: 07-03-2021 15:17-0500 Diastolic blood pressure 80 mm[Hg] Gabriel Bello Work Phone: [facility] 250 DO Work Phone: 07-03-2021 15:17-0500 Systolic blood pressure 151 mm[Hg] Gabriel Bello Work Phone: [facility] 250 DO Work Phone: Encounters Encounter Date Encounter Type Care Provider Facility Start: 03-13-2024 End: 03-13-2024 Clinisync Result Encounter Generic External Data Provider [facility] External Department Unsolicited Start: 03-13-2024 End: 03-13-2024 Clinisync Result Encounter Generic External Data Provider [facility] External Department Unsolicited Start: 02-21-2024 End: 02-21-2024 ambulatory [facility] Start: 02-07-2024 End: 02-07-2024 ambulatory [facility] Start: 01-13-2024 End: 01-13-2024 ambulatory [facility] Start: 01-11-2024 End: 01-11-2024 ambulatory GABRIEL Alicia ACE Not Available Start: 11-15-2023 End: 11-15-2023 ambulatory GABRIEL Alicia ACE Not Available Start: 10-26-2023 End: 10-26-2023 ambulatory CHARLEEN A PETITTI Not Available Start: 10-08-2023 End: 10-08-2023 ambulatory GABRIEL Alicia ACE Not Available Start: 10-07-2023 End: 10-07-2023 ambulatory GABRIEL Alicia ACE Not Available Start: 10-07-2023 End: 10-07-2023 ambulatory GABRIEL Alicia ACE Not Available Start: 09-13-2023 End: 09-13-2023 Patient encounter procedure DO Gabriel Bello Work Phone: [facility] Work Phone: Start: 09-13-2023 End: 09-13-2023 ambulatory DO Gabriel Bello Work Phone: [facility] Work Phone: Start: 07-13-2023 End: 07-13-2023 Office outpatient visit 25 minutes Dev Camp MD Work Phone: [facility] Comment on above: Benign essential hyp ertension (Primary Dx); Mixed hyperlipidemia; Paroxysmal atrial fibrillation (CMS/HCC); Former smoker Start: 07-13-2023 End: 07-13-2023 ambulatory DEV CAMP [facility] Start: 05-26-2023 End: 05-26-2023 ambulatory CHRIS PATEL Not Available Start: 05-12-2023 End: 05-12-2023 ambulatory GABRIEL BELLO Not Available Start: 04-26-2023 End: 04-26-2023 ambulatory CHARLEEN A PETITTI Not Available Start: 11-26-2022 End: 11-26-2022 ambulatory DO Gabriel Bello Work Phone: [facility] Work Phone: Start: 11-26-2022 End: 11-26-2022 Patient encounter procedure DO Gabriel Bello Work Phone: [facility] [place] Work Phone: Start: 11-17-2022 End: 11-17-2022 ambulatory Imad Asaad Other [facility] [employer] Other Start: 11-17-2022 Office outpatient ne w 45 minutes Imad Asaad [facility] Start: 11-17-2022 Telephone encounter Imad Asaad [facility] Start: 09-03-2022 End: 09-04-[address] GABRIEL BELLO Facility:[facility] Start: 07-14-2022 Office outpatient visit 25 minutes Gabriel Bello Work Phone: [facility] 250 DO Work Phone: Start: 07-14-[address] Gabriel Kulkarni Facility:[id number] Start: 05-25-2022 End: 05-26-[address] GABRIEL BELLO Facility:[facility] Start: 05-06-2022 End: 05-07-[address] GABRIEL BELLO Facility:[facility] Start: 03-27-2022 Rx Renewal Gabriel mae Work Phone: [facility] 250 DO Work Phone: Start: 12-05-2021 End: 12-05-2021 Patient encounter procedure DO Gabriel Bello Work Phone: [facility] Start: 11-20-2021 End: 11-21-[address] DOCTOR BISHOP Facility:[facility] Start: 11-05-2021 End: 11-06-[address] GABRIEL BELLO Facility:[facility] Start: 07-03-2021 Office outpatient visit 25 minutes Gabriel Bello Work Phone: [facility] 250 DO Work Phone: Start: 03-05-2021 Rx Renewal Marina lozada MD Work Phone: [facility] 250 DO Work Phone: Start: 07-12-2020 End: 07-12-[address] [facility] Vaccine Procedures Date Procedure Procedure Detail Performing Clinician Start: 03-13-2024 ALL CBC WITH AUTO DIFF Generic External Data Provider Start: 09-13-2023 Positron emission tomography DO Gabriel Ace Work Phone: Start: 07-13-2023 ECG 12-LEAD DEV JAMISON Start: 07-13-2023 Ecg routine ecg w/le ast 12 lds w/i&r Dev Camp MD Work Phone: Start: 12-24-2022 Colonoscopy Generic Pr ovider Start: 11-26-2022 Computed tomography of abdomen and pelvis with contrast DO Gabriel Bello Work Phone: Start: 05-25-[address] DOCTOR BISHOP Comment on above: Performed By: #### L IPID, TSH, CMP #### [facility] [address] [address] [address] Leesa Urbina Start: 11-20-[address] DOCTOR BISHOP Comment on above: Performed By: #### P SAD #### [facility] [address] [address] [address] Leesa Urbina Appendectomy Gabriel daniel Work Phone: Cataract surgery Gabriel morris Work Phone: Colonoscopy Gabriel daniel Work Phone: Comment on above: [id number] Jovanny Yu; Operation on lip Gabriel morris Work Phone: Prostatectomy Gabriel mae Work Phone: Plan of Treatment Date Care Activity Detail Author Start: 12-24-2032 Screening for malign ant neoplasm of colon [facility] Start: 10-31-2024 Urine screening for protein Diabetes: Urine Protein Screening [facility] Start: 07-18-2024 End: 07-18-2024 Patient encounter procedure 07/18/2024 8:50 AM EST Office Visit [facility] [address] [place] [phone] Dev Camp MD [address] [place] [address] [facility] Start: 05-22-2024 End: 05-22-2024 Patient encounter procedure 05/22/2024 8:30 AM EST Office Visit [facility] [address] [place] [phone] Gabriel Bello DO [address] [place] [address] [facility] Start: 05-12-2024 Medicare Annual Wellness (AWV) Medicare Annual Wellness (AWV) [facility] Start: 04-27-2024 End: 04-27-2024 Patient encounter procedure 04/27/2024 9:05 AM EST Office Visit [facility] [address] [place] [id number] Charleen Barrow MD [address] [place] [address] [facility] Start: 01-23-2024 Influenza vaccination Influenza Vacc ine (#1) [facility] Start: 12-12-2023 Glaucoma screening Diabetes: R etinopathy Screening [facility] Start: 07-13-2023 FUV, Provider: Dev Camp, Status: Pen, Time: 8:50 AM FUV, Provider: Dev Camp, Status: Pen, Time: 8:50 AM [facility] 250 DO Work Phone: Start: 02-05-2023 Hemoglobin A1c measurement Diabetes: Hemoglobin A1C [facility] Start: 07-14-2022 FUV, Provider: Dev Camp, Status: Pen, Time: 9:10 AM FUV, Provider: Dev Capm, Status: Pen, Time: 9:10 AM [facility] 250 DO Work Phone: Start: 06-24-2021 FUV, Provider: Dev Camp, Status: Pen, Time: 10:15 AM FUV, Provider: Dev Camp, Status: Pen, Time: 10:15 AM [facility] 250 DO Work Phone: Start: 1960 DTaP/Tdap/Td Vaccine s (1 - Tdap) DTaP/Tdap/Td Vaccines (1 - Tdap) [facility] Start: 1957 Urine screening for protein Diabetes: Urine Protein Screening [facility] Start: 1948 Diabetic foot examination Diabetes: Foot Exam [facility] Start: 1948 Glaucoma screening Diabetes: R etinopathy Screening [facility] Start: 1938 Hemoglobin A1c measurement Diabetes: Hemoglobin A1C [facility] Start: 1938 Lipid panel Lipid Panel [facility] Start: 1938 Medicare Annual Wellness Visit Medicare Annual Wellness Visit (AWV) [facility] Start: 1938 Screening for malign ant neoplasm of colon [facility] HIV 1+2 Ab+HIV1 p24 Ag [Presence] in Serum or Plasma by Immunoassay [facility] Immunizations Immunization Date Immunization Notes Care Provider Estefanía eckert 03-20-2023 Influenza, Seasonal, Quadrivalent, Adjuvanted Generic Provider [facility] 03-20-2023 influenza virus vacc ine, unspecified formulation Generic Provider [facility] 04-03-2022 Moderna COVID-19 Biv al Booster 50 MCG/0.5ML Intramuscular Suspension Gabriel Vargas [employer] Work Phone: [facility] 250 DO Work Phone: 03-10-2022 Fluad Quadrivalent 0 .5 ML Intramuscular Prefilled Syringe Gabriel Downingman Work Phone: [facility] 250 DO Work Phone: 12-19-2021 Moderna COVID-19 Vac cine 100 MCG/0.5ML Intramuscular Suspension Gabriel Bello Work Phone: [facility] DO Work Phone: 03-20-2021 Moderna COVID-19 Vac cine 100 MCG/0.5ML Intramuscular Suspension Gabriel Alicia [employer] Work Phone: [facility] 03-19-2021 Moderna SARS-CoV-2 Booster Vaccination Generic Provider [facility] 03-12-2021 influenza, high dose seasonal, preservative-free Gabriel Vargas [employer] Work Phone: [facility] 02-26-2021 Fluzone High-Dose Quadrivalent 0.7 ML Intramuscular Suspension Prefilled Syringe Gabriel Alicia [employer] Work Phone: [place] [address] DO Work Phone: 07-12-2020 COVID-19 mRNA-1273 (Moderna) [facility] 06-15-2020 COVID-19 mRNA-1273 (Moderna) [facility] 03-15-2020 Fluad Quadrivalent 0 .5 ML Intramuscular Prefilled Syringe Gabriel Alicia [employer] Work Phone: [facility] 02-24-2020 influenza, high dose seasonal, preservative-free Gabriel Bello Work Phone: [facility] 250 DO Work Phone: 03-11-2019 zoster vaccine recombinant Gabriel Alicia [employer] Work Phone: [facility] 250 DO Work Phone: 03-01-2019 influenza, high dose seasonal, preservative-free Gabriel Downingman Work Phone: [facility] 250 DO Work Phone: 02-21-2019 influenza, high dose seasonal, preservative-free Gabriel Alicia [employer]ce Work Phone: [facility] 250 DO Work Phone: 12-22-2018 zoster vaccine recombinant Gabriel Bello Work Phone: [facility] 250 DO Work Phone: 02-25-2018 influenza, high dose seasonal, preservative-free Gabriel Bello Work Phone: [facility] [facility] DO Work Phone: 03-16-2017 influenza, high dose seasonal, preservative-free Gabriel Alicia Bello Work Phone: [facility] 250 DO Work Phone: 05-24-2016 pneumococcal conjuga te vaccine, 13 valent Gabriel Downingman Work Phone: [facility] 03-30-2016 influenza, high dose seasonal, preservative-free Generic Provider [facility] 05-02-2015 seasonal influenza, intradermal, preservative free Generic Provider [facility] 03-22-2015 influenza, high dose seasonal, preservative-free Gabriel Bello Work Phone: [place] [address] DO Work Phone: 12-14-2013 pneumococcal conjuga te vaccine, 13 valent Generic Provider [facility] 10-10-2012 zoster vaccine, live Generic Provide r [facility] 05-24-2012 pneumococcal polysaccharide vaccine, 23 valent Gabriel Downingman Work Phone: [facility] 05-31-2009 novel influenza-H1N1 -09, preservative-free, injectable Gabriel Downingman Work Phone: [facility] 250 DO Work Phone: 07-23-2003 pneumococcal polysaccharide vaccine, 23 valent Generic Provider [facility] Payers Date Payer Category Payer Self-pay [id number] 2023 Medicare [id number] 2022 Medicaid [employer] MEDICARE A DVANTAGE [id number] 1959 Private Health Insurance [id number] 1938 Unknown [id number] 2.16.840.1.391152.3.579.2. 356 1938 Unknown [id number] 2.16.840.1.405971.3.579.2. 593 1938 Unknown [id number] 2.16.840.1.895018.3.579.2. 593 1938 Unknown [id number] 2.16.840.1.082325.3.579.2. 593 1938 Unknown [id number] 2.16.840.1.313315.3.579.2. 593 1938 Unknown [id number] 2.16.840.1.650675.3.579.2. 593 1938 Unknown [id number] 2.16.840.1.938091.3.579.2. 1259 1938 Unknown [id number] 2.16.840.1.468778.3.579.2. 1259 1938 Unknown [id number] 2.16.840.1.280144.3.579.2. 1259 1938 Unknown [id number] 2.16.840.1.156356.3.579.2. 1259 1938 Unknown [id number] 2.16.840.1.514658.3.579.2. 1259 1938 Unknown [id number] 2.16.840.1.796861.3.579.2. 1259 1938 Unknown [id number] 2.16.840.1.157643.3.579.2. 1259 1938 Unknown [id number] 2.16.840.1.757117.3.579.2. 1259 1938 Unknown [id number] 2.16.840.1.800325.3.579.2. 1259 1938 Unknown [id number] 2.16.840.1.274338.3.579.2. 1244 1938 Unknown [id number] 2.16.840.1.557294.3.579.2. 1244 1938 Unknown [id number] 2.16.840.1.601017.3.579.2. 1244 1938 Unknown [id number] 2.16.840.1.135486.3.579.2. 1246 1938 Unknown [id number] 2.16.840.1.370973.3.579.2. 1246 1938 Unknown [id number] 2.16.840.1.047106.3.579.2. 1246 1938 Unknown [id number] 2.16.840.1.881395.3.579.2. 1246 1938 Unknown [id number] 2.16.840.1.365022.3.579.2. 1246 1938 Unknown [id number] 2.16.840.1.172585.3.579.2. 1246 Medicare Medicare [id number] Private Health Insurance Self Pay [facility] [id number] Unknown [employer] Unknown [id number] 2.16.840.1.230922.3.579.2. 531 Social History Date Type Detail Facility Tobacco smoking stat us [facility] Unknown if ever smoked [facility] Start: 1940 Sex Assigned At Male F [facility] Start: 05-12-2023 End: 07-13-2023 Never a smoker Never a smoker -[facility] 250 DO Work Phone: Comment on above: 2-3 drinks a month; Start: 12-05-2021 End: 11-15-2023 Tobacco smoking status NHIS Ex-smoker (finding) [facility] Start: 05-12-2023 End: 07-13-[address] [facility] [employer] Other Start: 06-12-1956 End: 05-24-1989 History of tobacco use Current smoker [facility] Work Phone: Start: 06-12-1956 End: 05-24-1989 History of tobacco use Cigarette Smoker [facility] Work Phone: Start: 07-13-2023 End: 11-15-2023 Tobacco use and exposure Smokeless tobacco non-user [facility] Work Phone: Start: 07-13-2023 Alcohol intake Lifetime non-d joe (finding) [facility] Work Phone: Start: 1940 Sex Assigned At Not on file [facility] Work Phone: Start: 07-03-2023 End: 07-13-2023 Exposure to SARS-CoV-2 (event) Not sure [facility] History of tobacco use Pipe Smoker [facility] History of tobacco use Passive smoker [facility] Start: 01-11-2024 Alcoholic beverage intake Current drinker of alcohol (finding) [facility] How often to you hav e a drink containing alcohol? 2-4 times a month [facility] How many standard drinks containing alcohol do you have on a typical day? 1 or 2 [facility] How often do you hav e 6 or more drinks on 1 occasion? Never [facility] Start: 05-12-2023 Alcohol Comment on occasion [facility] Goals Date Patient Goal Desired Activity /State [...] by mouth once daily., Disp: , Rfl: [id number] (Creon) 24,000-76,000 -120,000 unit capsule, Take 1 [...] discussion and plan. documented in this encounter [facility] Work Phone: Instructions 07-13-2023 Patient [...] of your visit. documented in this encounter [facility] Work Phone: Evaluation note 11-17-2022 Note Date & Type Note Facility 11-17-2022 Evaluation note Encounter Date Diagnosis Assessment Notes Oct, Change in bowel habits (ICD-10 - R19.4) Oct, Diverticulosis (ICD-10 - K57.90) Oct, IBS (irritable bowel syndrome) (ICD-10 - K58.9) Oct, Pancreatic insufficiency (ICD-10 - K86.89) [employer] Other History of Present illness Narrative 07-14-2022 [...] necessary and we suggest follow-up next year -[facility] 250 DO Work Phone: Evaluation note Note Date & Type Note Facility Evaluation note No [facility] Work Phone: Evaluation note Note Date & Type Note Facility Evaluation note No Information [facility] [employer] Other Evaluation note Note Date & Type Note Facility Evaluation note Diagnosis Benign essential hypertension- Primary Essential hypertension, benign Mixed hyperlipidemia Paroxysmal atrial fibrillation (CMS/HCC) Atrial fibrillation Former smoker Personal history of tobacco use, presenting hazards to health documented in this encounter [facility] Work Phone: History general Narrative - Reported Note Date & Type Note Facility History general Narrative - Reported Type Medical History diabetes mallitus Medical History high blood pressure Medical History appendectomy Medical History Palpitations Medical History Malignant neoplasm of prostate Medical History Irritable bowel syndrome Medical History Diabetes mellitus [facility] mention of complication, type II [...] History Right cataract surge ry per in [place], [place]. 10-28-17 Surgical History Mohs repair / left upper lip Hospitalization History see above [facility] Other History of Present illness Narrative Note [...] continued therapy as before without change. -[facility] 250 DO Work Phone: Advance Directives No [...] Referred To Contact Diagnoses Paroxysmal atrial fibrillation (CMS/FORMERLY [facility]) Procedures ECG 12 Lead Dev Camp MD [address] [facility] [address], [address] [address] Referral ID Status Reason Start Date Expiration Date V isits Requested Visits Authorized [id number] Authorized 07/13/2023 07/12/2024 1 1 Specialty Diagnoses / Procedures Referred By Contac t Referred To Contact Cardiology Diagnoses Paroxysmal atrial fibrillation (CMS/HCC) Procedures Follow Up In Cardiology Dev Camp MD [address] [facility] [address], [address] [address] Dev Camp MD [address] [facility], [facility] [address] [place] [address] Referral ID Status Reason Start Date Expiration Date V isits Requested Visits Authorized [id number] Authorized 07/13/2023 07/12/2024 1 1 Additional Source Comments Care Teams (unrecognized sec tion and content) Team Status: Inactive Member Role Status Dates Gabriel Bello DO Primary Care Provider Active Shonna Sim , DO Family Provider Active Juan Ventura DO Attending Provider Active Team Status: Active Member Role Status Dates Shonna Sim , Family Provider Active Gabriel Bello , Primary Care Provider Active Team Status: Inactive Member Role Status Dates Gabriel Bello DO Primary Care Provider Active Shonna Sim , Family Provider Active Jj Garcia MD Attending Provider Active [employer]er Relationship Specialty Start Date End Date Gabriel Bello DO [address] [facility] [address] [place] [address] PCP - General 05/24/99 Team Status: Inactive Member Role Status Dates Gabriel Bello DO Primary Care Provider Active Start: September 13, 2023 End: September 13, 2023 NON STAFF Attending Provider Active Start: [facility] 2023 End: September 13, 2023 [employer]er Relationship Specialty Start Date End Date Gabriel Bello DO [address] [facility] [address] [place] [address] PCP - [employer] 05/24/20 Gabriel Bello DO [address] [place] [address] PCP - General Internal Medicine 11/10/22 Marianne Camp MD [address] [facility] [address] [place] [address] Referring Physician Cardiology 05/12/23 Goals (unrecognized section and content) Goals may [...] content) DATE CREATED AUTHOR 07/15/2022 [facility] DATE CREATED AUTHOR AUTHOR'S ORGANIZ ATION 07/15/2022 [employer] DATE CREATED AUTHOR AUTHOR'S ORGANIZ ATION 09/10/2022 [facility] pital DATE CREATED AUTHOR AUTHOR'S ORGANIZ ATION 01/12/2024 [facility] EPIC DATE CREATED AUTHOR AUTHOR'S ORGANIZ ATION 02/08/2024 [facility] DATE CREATED AUTHOR AUTHOR'S ORGANIZ ATION 02/25/2024 [facility] DATE CREATED AUTHOR AUTHOR'S ORGANIZ ATION 03/16/2024 [facility] REASON FOR VISIT (unrecogniz ed section and content) Reason Comments Annual Exam Specialty Diagnoses / Procedures Referred By Contac t Referred To Contact Diagnoses Paroxysmal atrial fibrillation (CMS/HCC) Procedures ECG 12 Lead Dev Camp MD [address] [facility] [address] [place] [address] Referral ID Status Reason Start Date Expiration Date V isits Requested Visits Authorized [id number] Authorized 07/13/2023 07/12/2024 1 1 FOR RECORDS [...] BE BASED ON THE PRIMARY CLINICAL RECORDS. [facility]. provides no warranty or guarantee of the accuracy or completeness of information in this document.
[2024-04-03 07:45] LABS: Basophils Absolute Auto 0.1 10^3/uL (0.0-0.1); Basophils Percent Auto 1.2 % (0.2-2.0); Eosinophils Absolute Auto 0.3 10^3/uL (0.0-0.7); Eosinophils Percent Auto 4.3 % (0.9-7.0); Hematocrit 38.4 % (42.0-54.0); Hemoglobin 12.4 g/dL (14.0-18.0); Immature Granulocytes Abs Auto 0.03 10^3/uL (0.00-0.03); Immature Granulocytes Pct Auto 0.5 % (0.0-0.5); Lymphocytes Absolute Auto 2.1 10^3/uL (1.2-3.8); Lymphocytes Percent Auto 32.7 % (20.5-60.0); Mean Corpuscular HGB Conc 32.3 g/dL (29.9-35.2); Mean Corpuscular Hemoglobin 30.1 pg (25.9-34.0); Mean Corpuscular Volume 93.2 fL (80.0-94.0); Mean Platelet Volume 10.4 fL (9.5-13.5); Monocytes Absolute Auto 0.5 10^3/uL (0.3-0.8); Neutrophils Absolute Auto 3.5 10^3/uL (1.4-6.5); Neutrophils Percent Auto 54.3 % (43.0-75.0); Platelet Count 172 10^3/uL (150-450); Red Blood Count 4.12 10^6/uL (4.70-6.10); White Blood Count 6.5 10^3/uL (4.0-11.0)
[2024-04-03 09:03] LABS: Alanine Aminotransferase 10 U/L (16-63); Albumin Level 3.3 g/dL (3.4-5.0); Alkaline Phosphatase 55 U/L (46-116); Anion Gap 14.2; Aspartate Amino Transferase 19 U/L (15-37); BUN Creatinine Ratio 10.9; Bilirubin Total 0.5 mg/dL (0.2-1.0); Calcium 8.2 mg/dL (8.5-10.1); Carbon Dioxide 25.8 mmol/L (21.0-32.0); Chloride 109 mmol/L (98-107); Estimated GFR (African America >60 (>=60 mL/min/1.73m^2); Estimated GFR (Non-African Ame 53 (>=60 mL/min/1.73m^2); Globulin 3.2 g/dL; Glucose 188 mg/dL (74-106); Sodium 145 mmol/L (136-145); Total Protein 6.5 g/dL (6.4-8.2)
[2024-04-03 11:30] LABS: Prostate Specific Antigen Scrn <0.13 ng/mL (<=4.00)
[2024-04-04 04:08] LABS: Testosterone <3 ng/dL (264-916)
== END 2024-04-03 07:21 | disposition home or self-care (01) ==
LOC: LAB 07:23
PROVIDERS: PCP Internal Medicine
DX: C61 Malignant neoplasm of prostate (principal); C79.51 Secondary malignant neoplasm of bone
CPT/HCPCS: 36415; 80053; 84403; 85025; G0103

== ENCOUNTER 2024-04-24 07:34 | Outpatient (RCR) | payer MEDICARE, SELFPAY ==
[2024-04-24 13:45] VITALS: BP 99/66; PULSE 72; TEMP 36; O2SAT 95
--- NOTE | 2024-04-24 13:49 | PC.NURSE ---
1345: Pt.to [facility] amb. for injection. VSS. Denies c/o or needs. Denies changes in medication. Awaiting med from pharmacy.
[2024-04-24] MEDS: DENOSUMAB 120 MG/1.7 ML VIAL SQ (14:01)
--- NOTE | 2024-04-24 14:07 | PC.NURSE ---
1401: Medicated with Xgeva SQ as ordered to [facility]. No bleeding to site. Tolerated without c/o. D/c'd amb. to home.
== END 2024-04-24 14:02 | disposition home or self-care (01) ==
LOC: INF 07:34
PROVIDERS: PCP Internal Medicine
DX: C61 Malignant neoplasm of prostate (principal); C79.51 Secondary malignant neoplasm of bone
CPT/HCPCS: 96372; J0897

== ENCOUNTER 2024-05-03 19:34 | Emergency (ER) | payer MEDICARE, SELFPAY ==
[2024-05-03 19:43] VITALS: BP 200/105; PULSE 73; TEMP 36.9; O2SAT 97; BMI 24.7
--- OUTSIDE RECORDS SUMMARY | 2024-05-03 19:45 | XMS_ITS | CCD ---
Author Organization [facility] Care Team Providers Care Disability Program Navigator Name Role Phone Gabriel Bello Primary Care Provider [phone] Ryan Negron Attending Provider [phone] Gabriel Bello Unavailable Unavailable Unavailable DO Gabriel [...] Unavailable DO Gabriel Bello Primary Care Provider [phone] MD Jj Garcia Attending Provider Gabriel Belol DO Primary Care Provider [phone] DO Gabriel Bello Primary Care Provider NON [...] Care Unavailable Gabriel Bello DO A Unavailable Gabriel Bello DO Primary Care Provider [phone] Marianne Camp MD Unavailable Gabriel Bello Primary Care Unavailable Miller Donald Attending Unavailable Miller Donald Admitting Unavailable Unavailable Unavailable Unavailable Allergies Allergy Classification Reported Allergen(s) Allergy Type Date of Onset Reaction(s) Facility (4 sources) Sulfonamides (Antibiotic); Translations: [Sulfa Drugs] Allergy to drug (finding) [facility] 250 DO Work Phone: (6 sources) Sulfonamides (Antibiotic); Translations: [SULFA (SULFONAMIDE ANTIBIOTICS)] Allergy to substance 2 [facility] (1 source) Sulfonamides (Antibiotic) Drug allergy (disorder) [facility] Repository (6 sources) Substance with sulfonamide structure and antibacterial mechanism of action (substance) Drug allergy 4 [facility] (2 sources) abiraterone; Translations: [ABIRATERONE] Drug Allergy 4 [facility] 3 Repository (4 sources) Sulfanilamide Allergy to substance 3 Unknown [facility] Healthcare Medications Current Medications Medication Drug Class(es) Dates Sig (Normalized) Sig (Original) amylase 024647 unt / lipase 55853 unt / protease 78406 unt delayed release oral capsule (7 sources) Start: 01-17-2024 Creon 22677-66316 units capsule Indications: Malignant neoplasm of prostate (CMS/HCC) , Exocrine pancreatic insufficiency (CMS/HCC) TAKE 1 CAPSULE IN THE MORNING, 1 CAPSULE AT NOON AND 1 CAPSULE IN THE EVENING WITH MEALS 300 capsule 1 01/17/2024 Active Start: 11-17-2022 take 1 capsule by mo uth three times daily at mealtime udobrp-atxcocpa-oijrnfx (Creon) 24,000-76,000 -120,000 unit capsule Take 1 capsule by mouth 3 times a day with meals. 0 11/17/2022 Active Start: 11-17-2022 Creon 01928-91 000 UNIT 1 with each meal Orally daily for 30 days Oct, Active ascorbic acid 500 mg oral capsule (4 sources) Vitamin C take 1 capsule by mouth once daily ascorbic acid, vitamin C, 500 mg capsule Take 1 capsule by mouth once daily. 0 Active atorvastatin 20 mg oral tablet (13 sources) HMG-CoA Reductase Inhibitor Start: atorvastatin (Lipitor) [...] (Therapy completed) calcitriol 0.0005 mg oral capsule (4 sources) Vitamin D3 Analog take 1 capsule by [...] 11/13/2020 Active fluorouracil 50 mg/ml topical cream (6 sources) Nucleoside Metabolic Inhibitor Start: 04-26-2023 fluorouracil (Efudex) 5 % cream Indications: Actinic keratosis Apply to affected areas bid x 14 days 40 g 1 04/26/2023 Active Efudex 5 % 1 vlad lication Externally Twice a day Active lisinopril 20 mg oral tablet (14 sources) Angiotensin Converting Enzyme Inhibitor Start: 04-06-2024 take 1 tablet by mouth in the morning lisinopril 20 MG tablet Indications: Primary hypertension (CMS/HCC) Take 1 tablet (20 mg) by mouth in the morning and 1 tablet (20 mg) before bedtime. 180 tablet 3 04/06/2024 Active Start: 03-23-2024 take 1 tablet by yifan th once daily lisinopril 20 MG tablet Indications: Primary hypertension (CMS/HCC) Take 1 tablet (20 mg) by mouth Daily 14 tablet 03/23/2024 Active Start: 02-11-2021 lisinopril 20 MG tablet Indications: Primary hypertension (CMS/HCC) TAKE 1 TABLET DAILY 90 tablet 3 09/03/2023 Active metFORMIN hydrochloride 500 mg oral tablet (10 sources) Biguanide Start: 09-01-2023 metFORMIN (Glu cophage) 500 MG tablet Indications: Type 2 diabetes mellitus with other specified complication, without long-term current use of insulin (CMS/HCC) TAKE 1 TABLET IN THE EVENING WITH A MEAL 90 tablet 3 09/01/2023 Active Start: 07-05-2020 take 1 tablet by yifan th once daily metFORMIN (Glucophage) 500 mg tablet Take 1 tablet (500 mg) by mouth once daily. 0 07/05/2020 Active 24 hr metoprolol succinate 50 mg extended release oral tablet (14 sources) beta-Adrenergic Allyn Start: 07-13-2023 End: 07-12-2024 take 1 tablet by mouth once daily metoprolol succinate XL (Toprol-XL) 50 MG 24 hr tablet Take 50 mg by mouth Daily 07/13/2023 Active Start: 02-24-2021 End: 07-13-2023 take 100 mg by mouth once daily in the morning Metoprolol Succinate Active 100 MG PO Every morning December 05, 2021 12:00am mirtazapine 15 mg oral table t (13 sources) Start: 02-15-2024 mirtazapine (R emeron) 15 MG tablet Indications: Current mild episode of major depressive disorder without prior episode (HCC) (CMS/HCC) TAKE 1 TABLET AT BEDTIME 90 tablet 3 02/15/2024 Active Start: 05-14-2021 mirtazapine (R emeron) 15 MG tablet Indications: Current mild episode of major depressive disorder without prior episode (HCC) (CMS/HCC) TAKE 1 TABLET AT BEDTIME 90 tablet 3 04/02/2023 Active polyethylene glycol 3350 400195 mg / potassium chloride 2970 mg / sodium bicarbonate 6740 mg / sodium chloride 5860 mg / sodium sulfate 59027 mg powder for oral solution (2 sources) Osmotic Laxative Start: 11-17-2022 take 236 g by mouth once Golytely 236 GM as directed Orally once for 1 days Oct, Active predniSONE 5 mg oral tablet (4 sources) Start: 11-05-2023 take 1 tablet by mouth once daily predniSONE (Deltasone) 5 MG tablet Take 5 mg by mouth Daily 11/05/2023 Active rivaroxaban 20 mg oral tablet (14 sources) Factor Xa Inhibitor Start: 03-05-2021 End: [...] mouth see administration instructions. 0 Active Vit C,O-Bz-Qxjvh-Lutein -Zeaxan (Preservision Areds-2) 250-90-40-1 mg Capsule (3 sources) Start: 12-05-2021 Vit C,Q-Eg-Zvibg-Lutein- Zeaxan (Preservision Areds-2) 250-90-40-1 mg Capsule Active 1 TAB PO Every morning December 05, 2021 12:47pm Start: 12-05-2021 Vit C,E-Zn-Street Light Servicer Helper hl-Cgkria-Kwnckg (Preservision Areds-2) 250-90-40-1 mg Capsule Active 1 [...] ascorbic acid 226 mg / beta carotene 34375 unt / cuprous oxide 0.8 mg / [...] TENDERNESS] Onset: 3 Episodic Cancer of prostate (11 sources) Malignant neoplasm of prostate; Translations: [Secondary malignant neoplasm of bone] Onset: 5 Chronic Cardiac dysrhythmias (20 sources) Paroxysmal atrial fibrillation; Translations: [Atrial fibrillation] Onset: 0 Chronic Chronic kidney disease (6 sources) Chronic kidney disease stage 3A ; Translations: [Stage 3a chronic kidney disease] Onset: 1 11-03-2022 Chronic Chronic kidney disease (2 sources) Chronic kidney disease; Translations: [Chronic kidney disease, stage 3a (Multi)] Onset: 4 Deficiency and other anemia (1 source) Anemia, unspecified; Translations: [ANEMIA UNSPECIFIED] Onset: 3 Episodic Diabetes mellitus with complications (9 sources) Type 2 diabetes mellitus with other specified complication; Translations: [Type 2 diabetes mellitus] Onset: 2 Chronic Diabetes mellitus without complication (6 sources) Diabetes mellitus; Translations: [Diabetes mellitus without mention of complication, type II or unspecified type, not stated as uncontrolled] Onset: 4 05-28-2023 Chronic Disorders of lipid metabolism (14 sources) Hyperlipidemia; Translations: [Other and unspecified hyperlipidemia] Onset: 8 07-13-2023 Chronic Diverticulosis and diverticulitis (8 sources) Diverticulosis of intestine, part unspecified, without perforation or abscess without bleeding; Translations: [Diverticular disease of colon] Onset: 3 Chronic Essential hypertension (12 sources) Benign essential hypertension; Translations: [Benign essential hypertension] Onset: 5 07-13-2023 Chronic Heart valve disorders (4 sources) Nonrheumatic mitral (valve) insufficiency; Translations: [Nonrheumatic mitral (valve) insufficiency] Onset: 4 Chronic Miscellaneous mental health disorders (2 sources) Acute insomnia; Translations: [Adjustment insomnia] Episodic Mood disorders (6 sources) Major depressive disorder, single episode, unspecified; Translations: [Depression] Onset: 6 11-03-2022 Chronic Other aftercare (6 sources) Drug therapy finding; Translations: [Long-term (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 of anticoagulants] Episodic Other aftercare (3 sources) Other buttermaker continuous churn (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; Translations: [OTH MANUSCRIPTS ARCHIVIST CURRENT DRUG THERAPY] Onset: 2 Episodic Other aftercare (2 sources) senior living (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 of anticoagulants; Translations: [senior living (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 of anticoagulants] Onset: 4 Episodic Other gastrointestinal disorders (6 sources) Irritable bowel syndrome; Translations: [Irritable bowel [...] Da te Episodic/Chronic Deficiency and other anemia (6 sources) Anemia; Translations: [Anemia, unspecified] Onset: 11-04-2016 11-03-2022 Episodic Other non-epithelial cancer of skin (20 sources) 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; Translations: [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] Onset: 10-11-2022 10-11-2022 Episodic Pancreatic disorders (not diabetes) (5 sources) Other specified diseases of pancreas; Translations: [...] WITH AUTO DIFFon BASOPHILS ABSOLUTE AUTO 0.1 [facility] Basophils/100 WBC (Bld) 1.2 % 0.2 - 2.0 % [facility] Eosinophils/100 WBC (Bld) 4.3 % 0.9 - 7.0 % [facility] Erythrocyte distribution width (RBC) [Ratio] 13 % 11.0 - 15.0 % [facility] Hematocrit (Bld) [Volume fraction] 38.4 % Low 42.0 - 54.0 % [facility] Hemoglobin (Bld) [Mass/Vol] 12.4 g/dL Low 14.0 - 18.0 g/dL [facility] IMMATURE GRANULOCYTES ABS AUTO 0.03 [facility] Immature granulocytes/100 WBC (Bld) 0.5 % 0.0 - 0.5 % [facility] Interpretation and review of laboratory results Abnormal [facility] LYMPHOCYTES ABSOLUTE AUTO 2.1 [facility] Lymphocytes/100 WBC (Bld) 32.7 % 20.5 - 60.0 % [facility] MCH (RBC) [Entitic mass] 30.1 pg 25.9 - 34.0 pg [facility] MCHC (RBC) [Mass/Vol] 32.3 g/dL 29.9 - 35.2 g/dL [facility] MCV (RBC) [Entitic vol] 93.2 fL 80.0 - 94.0 fL [facility] MONOCYTES ABSOLUTE AUTO 0.5 [facility] Monocytes/100 WBC (Bld) 7 % 1.7 - 12.0 % [facility] NEUTROPHILS ABSOLUTE AUTO 3.5 [facility] Neutrophils/100 WBC (Bld) 54.3 % 43.0 - 75.0 % [facility] Platelet mean volume (Bld) [Entitic vol] 10.4 fL 9.5 - 13.5 fL [facility] EO # 0.3 [facility].12 Low [facility] TB WBC 6.5 [facility] ALL CBC WITH AUTO DIFFon BASOPHILS ABSOLUTE AUTO 0.1 [facility] Basophils/100 WBC (Bld) 1.2 % 0.2 - 2.0 % [facility] Eosinophils/100 WBC (Bld) 5.3 % 0.9 - 7.0 % [facility] Erythrocyte distribution width (RBC) [Ratio] 13.1 % 11.0 - 15.0 % [facility] Hematocrit (Bld) [Volume fraction] 38.3 % Low 42.0 - 54.0 % [facility] Hemoglobin (Bld) [Mass/Vol] 12.6 g/dL Low 14.0 - 18.0 g/dL [facility] IMMATURE GRANULOCYTES ABS AUTO 0.04 High [facility] Immature granulocytes/100 WBC (Bld) 0.5 % 0.0 - 0.5 % [facility] Interpretation and review of laboratory results Abnormal [facility] LYMPHOCYTES ABSOLUTE AUTO 2.2 [facility] Lymphocytes/100 WBC (Bld) 27.3 % 20.5 - 60.0 % [facility] MCH (RBC) [Entitic mass] 30.7 pg 25.9 - 34.0 pg [facility] MCHC (RBC) [Mass/Vol] 32.9 g/dL 29.9 - 35.2 g/dL [facility] MCV (RBC) [Entitic vol] 93.2 fL 80.0 - 94.0 fL [facility] MONOCYTES ABSOLUTE AUTO 0.6 [facility] Monocytes/100 WBC (Bld) 7.3 % 1.7 - 12.0 % [facility] NEUTROPHILS ABSOLUTE AUTO 4.8 [facility] Neutrophils/100 WBC (Bld) 58.4 % 43.0 - 75.0 % [facility] Platelet mean volume (Bld) [Entitic vol] 10.6 fL 9.5 - 13.5 fL [facility] TBH EO # 0.4 [facility] TB PLT 193 [facility] TB RBC 4.11 Low [facility] TB WBC 8.1 [facility] TRANSTHORACIC ECHO (TTE) COM PLETEon 02-21-2024 TRANSTHORACIC ECHO (TTE) COMPLETE [facility] [address], [address], [place] [address] TRANSTHORACIC ECHOCARDIOGRAM REPORT Patient Name: DEV WALSH Judy Physician: [id number] Marina Goldsmith MD Study Date: 02/21/2024 Ordering Provider: [id number] ASHLEY JOHNSONAN MRN/PID: [id number] Fellow: Nurse: Date of /Age: 1 1940 / 83 years Systems Lead: Jyoti Gutiérrez RDCS, RVT Gender: M Additional Staff: Height: 180.34 cm Admit Date: Weight: 77.11 kg Admission Status: BSA / BMI: 1.97 m2 / 23.71 kg/m2 Department Location: [facility] Blood Pressure: 142 /84 mmHg Study Type: TRANSTHORACIC ECHO (TTE) COMPLETE Diagnosis/ICD: 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; Paroxysmal atrial fibrillation-I48.0 Indication: Diabetes, HTN, Hyperlipidemia, Murmur, Former Smoker, Prostate Cancer with Metastases, CKD-Stage III CPT Codes: Echo Complete w Full Doppler-24210 Study Detail: The following Echo studies were [...] mmHg PIEDV: 2.08 m/s PADP: 20.3 mmHg [id number] Marina Goldsmith MD Electronically signed on 02/21/2024 at 2:06:09 PM Final [facility] NUCLEAR STRESS TESTon 2023 NUCLEAR STRESS TEST Interpreted By: Clarissa Sanchez and Miller Elaine STUDY: MYOCARDIAL PERFUSION STRESS TEST WITH EXERCISE Performing facility: [facility], [address] [place] [address], [address], [place] [address] [facility] Provider: Ashley Khoury MD, FACC PCP: Dr. Trang Bello Supervising provider: Marina Goldsmith MD INDICATION: Abnormal EKG; PVC Murmur HISTORY: Gender: M; Age: 83 y/o ; Height: HT 180.3 cm cm; Weight: WT 77.111 kg kg. Abnormal EKG; High Cholesterol; Diabetes; HTN; Arrhythmias; A-fib Quit smoking 34 years ago. COMPARISON: Previous nuclear testing completed [id number] at [facility]. ACCESSION NUMBER(S): [id number] ORDERING CLINICIAN: ASHLEY KHOURY TECHNIQUE: ONE DAY [...] Clarissa Sanchez 02/07/2024 4:47 PM Dictation workstation: [id number] [facility] Comment on above: Order Comment: Start with exercise, may switch to alfonso ALL BASIC METABOLIC PANELon 02-03-2024 Anion gap [Moles/Vol] 11.7 mmol/L NO [facility] Calcium [Mass/Vol] 8.3 mg/dL Low 8.5 - 10. 1 mg/dL [facility] Chloride [Moles/Vol] 107 mmol/L 98 - 10 7 mmol/L [facility] CO2 [Moles/Vol] 28.3 mmol/L 21.0 - 32.0 mmol/L [facility] Creatinine [Mass/Vol] 1.11 mg/dL 0.70 - 1.30 mg/dL [facility] GFR/1.73 sq M.predicted CKD-EPI (S/P/Bld) [Vol rate/Area] >60 60 - PINF [facility] Glucose [Mass/Vol] 164 mg/dL High 74 - 106 mg/dL [facility] Interpretation and review of laboratory results Abnormal [facility] Potassium [Moles/Vol] 4.0 mmol/L 3.5 - 5.1 mmol/L [facility] Sodium [Moles/Vol] 143 mmol/L 136 - 145 mmol/L [facility] TBH EGFR-NON AF GHANAIAN >60 60 - PINF [facility] Urea nitrogen [Mass/Vol] 16.0 mg/dL 7.0 - 18.0 mg/dL [facility] Urea nitrogen/Creatinine [Mass ratio] 14.4 mg/mg [facility] PET psma initial tx sb-mton 09-13-2023 PET psma initial tx sb-mt [facility] [place] [address] Nuclear Medicine Report Signed Patient: Dev Walsh MR#: [id number] : 1940 Acct:[id number] Age/Sex: 83 / M ADM Date: 09/13/23 Loc: Room: Type: [facility] Attending Dr: SYLWIA STAFF Copies to: NON [...] Jordan Story M.D.09/13/2023 3:20 PM Dictation Location: [place] [address] Transcribed By: [facility] 09/13/23 1520 Dictated By: Jordan Story II, MD 09/13/23 1515 Signed By: 09/13/[address] [facility] ECG 12 Leadon 07-13-2023 Sinus rhythm with frequent PVCs Otherwise normal EKG QTc 444 ms [facility] Work Phone: C reactive protein [Mass/vol ume] in Serum or PlasmaOrdered By: Jj Garcia on 11-26-2022 CRP [Mass/Vol] < 0.5 mg/dL 0.0-0.5 [facility] Creatinine [Mass/volume] in Serum or PlasmaOrdered By: Gabriel Bello on 11-26-2022 Creatinine [Mass/Vol] 1.55 mg/dL 0.70-1.30 [facility] Erythrocyte sedimentation ra te by Photometric methodOrdered By: Jj Garcia on 11-26-2022 ESR Photometric method (Bld) [Velocity] 18 mm/hr 0-19 [facility] No Panel InformationOrdered By: Gabriel Bello on 11-26-2022 Estimated GFR (CKD-EPI) 43.863 mL/Min [facility] Creatinine Clearance (Chem N/A [facility] Thyrotropin [Units/volume] i n Serum or PlasmaOrdered By: Jj Garcia on 11-26-2022 TSH Qn 1.23 m[IU]/L 0.45-5.33 [facility] Urea nitrogen [Mass/volume] in Serum or PlasmaOrdered By: Gabriel Bello on 11-26-2022 Urea nitrogen [Mass/Vol] 31 mg/dL 7-25 [facility] PANCREATIC ELASTASE FECALon 09-08-2022 Pancreatic Elastase, Fecal 86 ug Elast./g Critically low >200 [facility] Comment on above: Result Comment: Re sults verified by repeat testing Severe Pancreatic Insufficiency: <100 Moderate Pancreatic Insufficiency: 100 - 200 Normal: >200 Performed By: #### L IPID, TSH, CMP #### [facility] [address] [place] [address] [address] Leesa Urbina CELIAC ANTIBODIES PROFILEon 09-04-2022 Deamidated Gliadin Abs, IgA 8 units Normal 0-19 [facility] Comment on above: Result Comment: Nega tive 0 - 19 Weak Positive 20 - 30 Moderate to Strong Positive >30 Performed By: #### C ELIACP #### [facility] [address] [place] [address] [address] Leesa Urbina Deamidated Gliadin Abs, IgG 4 units Normal 0-19 [facility] Comment on above: Result Comment: Nega tive 0 - 19 Weak Positive 20 - 30 Moderate to Strong Positive >30 Performed By: #### C ELIACP #### [facility] [address] [place] [address] [address] Leesa Urbina Endomysial Antibody IgA Negative Normal Negative [facility] Comment on above: Performed By: #### C ELIACP #### [facility] [address] [place] [address] [address] Leesa Urbina Immunoglobulin A, Qn, Serum 143 mg/dL Normal 61-[address] [facility] Comment on above: Performed By: #### C ELIACP #### [facility] [address] [place] [address] [address] Leesa Urbina t-Transglutaminase (tTG) IgA <2 Normal 0-[address] [facility] Comment on above: Result Comment: Nega tive 0 - 3 Weak Positive 4 - 10 Positive >10 . Tissue Transglutaminase (tTG) has been identified as the endomysial antigen. Studies have demonstr- ated that endomysial IgA antibodies have over 99% specificity for gluten sensitive enteropathy. Performed By: #### C ELIACP #### [facility] [address] [place] [address] Dr. Leesa Urbina t-Transglutaminase (tTG) IgG 6 U/mL Critically high 0-[address] [facility] Comment on above: Result Comment: Nega tive 0 - 5 Weak Positive 6 - 9 Positive >9 Performed By: #### C ELIACP #### [facility] [address] [place] [address] Dr. Leesa Urbina CBC AUTO DIFFon 09-03-2022 BASO # 0.1 103/ul Normal 0.0-0.1 [facility] Comment on above: Performed By: #### L IPID, TSH, CMP #### [facility] [address] [place] [address] Dr. Leesa Urbina Basophils/100 WBC (Bld) 1.1 % Normal 0.2-2.0 [facility] Comment on above: Performed By: #### L IPID, TSH, CMP #### [facility] [address] [place] [address] Dr. Leesa Urbina EO # 0.6 103/ul Normal 0.0-0.7 [facility] Comment on above: Performed By: #### L IPID, TSH, CMP #### [facility] [address] [place] [address] Dr. Leesa Urbina Eosinophils/100 WBC (Bld) 7.9 % Critically high 0.9-7.[address] [facility] Comment on above: Performed By: #### L IPID, TSH, CMP #### [facility] [address] [place] [address] Dr. Leesa Urbina Erythrocyte distribution width (RBC) [Ratio] 13.6 % Normal 11.0-15.[address] [facility] Comment on above: Performed By: #### L IPID, TSH, CMP #### [facility] [address] [place] [address] [address] Leesa Urbina Hematocrit (Bld) [Volume fraction] 34.4 % Critically low 42.0-54.0 [facility] Comment on above: Performed By: #### L IPID, TSH, CMP #### [facility] [address] [place] [address] Dr. Leesa Urbina Hemoglobin (Bld) [Mass/Vol] 11.4 g/dL Critically low 14.0-18.0 [facility] Comment on above: Performed By: #### L IPID, TSH, CMP #### [facility] [address] [place] [address] Dr. Leesa Urbina IG # 0.02 10e3/ul Normal 0.00-0.03 [facility] Comment on above: Performed By: #### L IPID, TSH, CMP #### [facility] [address] [place] [address] Dr. Leesa Urbina IG % 0.3 % Normal 0.0-0.5 [facility] Comment on above: Performed By: #### L IPID, TSH, CMP #### [facility] [address] [place] [address] Dr. Leesa Urbina LYMPH # 2.1 103/ul Normal 1.2-3.8 [facility] Comment on above: Performed By: #### L IPID, TSH, CMP #### [facility] [address] [place] [address] Dr. Leesa Urbina Lymphocytes/100 WBC (Bld) 28.1 % Normal 20.5-60.0 [facility] Comment on above: Performed By: #### L IPID, TSH, CMP #### [facility] [address] [place] [address] Dr. Leesa Urbina MANUAL DIFF REQ NO Normal [facility] Comment on above: Performed By: #### L IPID, TSH, CMP #### [facility] [address] [place] [address] Dr. Leesa Urbina MCH (RBC) [Entitic mass] 31.1 pg Normal 25.9-34.[address] [facility] Comment on above: Performed By: #### L IPID, TSH, CMP #### [facility] [address] [place] [address] Dr. Leesa Urbina MCHC (RBC) [Mass/Vol] 33.1 g/dL Normal 29.9-35.[address] [facility] Comment on above: Performed By: #### L IPID, TSH, CMP #### [facility] [address] [place] [address] Dr. Leesa Urbina MCV (RBC) [Entitic vol] 93.7 fL Normal 80.0-94.[address] [facility] Comment on above: Performed By: #### L IPID, TSH, CMP #### [facility] [address] [place] [address] Dr. Leesa Urbina MONO # 0.4 103/ul Normal 0.3-0.[address] [facility] Comment on above: Performed By: #### L IPID, TSH, CMP #### [facility] [address] [place] [address] Dr. Leesa Urbina Monocytes/100 WBC (Bld) 6.0 % Normal 1.7-12.[address] [facility] Comment on above: Performed By: #### L IPID, TSH, CMP #### [facility] [address] [place] [address] Dr. Leesa Urbina NEUT # 4.2 103/ul Normal 1.4-6.[address] [facility] Comment on above: Performed By: #### L IPID, TSH, CMP #### [facility] [address] [place] [address] Dr. Leesa Urbina Neutrophils/100 WBC (Bld) 56.6 % Normal 43.0-75.[address] [facility] Comment on above: Performed By: #### L IPID, TSH, CMP #### [facility] [address] [place] [address] Dr. Leesa Urbina Platelet mean volume (Bld) [Entitic vol] 10.1 fL Normal 9.5-13.[address] [facility] Comment on above: Performed By: #### L IPID, TSH, CMP #### [facility] [address] [place] [address] [address] Leesa Urbina PLT 195 103/ul Normal 150-450 [facility] Comment on above: Performed By: #### L IPID, TSH, CMP #### [facility] [address] [address] [address] Leesa Urbina RBC 3.67 106/ul Critically low 4.70-6.10 [facility] Comment on above: Performed By: #### L IPID, TSH, CMP #### [facility] [address] [address] [address] Leesa Urbina WBC 7.3 103/ul Normal 4.0-11.0 [facility] Comment on above: Performed By: #### L IPID, TSH, CMP #### [facility] [address] [address] [address] Leesa Urbina FERRITINon 09-03-2022 Ferritin [Mass/Vol] 44.0 ng/mL Normal 26.0-388.0 [facility] Comment on above: Performed By: #### F ERR, FETIBC #### [facility] [address] [address] [address] Leesa Urbina IRON AND TIBCon 09-03-2022 % SATURATION 23.5 % Normal [facility] Comment on above: Performed By: #### F ERR, FETIBC #### [facility] [address] [address] [address] Leesa Urbina Iron [Mass/Vol] 69.0 ug/dL Normal 65.0-175.0 [facility] Comment on above: Performed By: #### F ERR, FETIBC #### [facility] [address] [address] [address] Leesa Urbina TIBC DIRECT 294.0 ug/dL Normal 250.0-450.0 [facility] Comment on above: Performed By: #### F ERR, FETIBC #### [facility] [address] [address] [address] Leesa Urbina Office Visit (Cardiology)on 07-14-2022 Follow-up visit Diagnoses/Problems Assessed Anticoagulated (V58.61) (Z79.01) Benign essential hypertension (401.1) (I10) Hyperlipidemia (272.4) (E78.5) Paroxysmal atrial fibrillation (427.31) (I48.0) Diabetes mellitus (250.00) (E11.9) Body mass index (BMI) of 24.0 to 24.9 in adult (V85.1) (Z68.24) Never a smoker Orders SocHx: Never a smoker Tobacco Use Screening; Status:Complete; Done: [id number] Patient Instructions Please bring all medicines, vitamins, [...] negative for complaint. Vitals Vital Signs Recorded: [id number] 09:08AM Heart Rate68, L Radial Uteblueu235, LUE, Sitting Hkfmiygsd79, LUE, Sitting Height5 ft 11 in Vpsawr982 lb BMI Cnrxqdldkw31.13 kg/m2 BSA Calculated1.98 Tobacco Useb) No PHQ-2 [...] Screening.on 023 Adult depression screening assessment No [facility] y 250 DO Work Phone: Fall risk assessment a) No falls within the last year [facility] y 250 DO Work Phone: Tobacco use status CPHS b) No [facility] y 250 DO Work Phone: CBC AUTO DIFFon 05-06-2022 BASO # 0.1 103/ul Normal 0.0-0.1 [facility] Comment on above: Performed By: #### C BC #### [facility] [address] [place] [address] Dr. Leesa Urbina Basophils/100 WBC (Bld) 1.4 % Normal 0.2-2.0 [facility] Comment on above: Performed By: #### C BC #### [facility] [address] [place] [address] Dr. Leesa Urbina EO # 0.4 103/ul Normal 0.0-0.7 [facility] Comment on above: Performed By: #### C BC #### [facility] [address] [place] [address] Dr. Leesa Urbina Eosinophils/100 WBC (Bld) 5.4 % Normal 0.9-7.[address] [facility] Comment on above: Performed By: #### C BC #### [facility] [address] [place] [address] Dr. Leesa Urbina Erythrocyte distribution width (RBC) [Ratio] 13.3 % Normal 11.0-15.0 [facility] Comment on above: Performed By: #### C BC #### [facility] [address] [place] [address] Dr. Leesa Urbina Hematocrit (Bld) [Volume fraction] 35.8 % Critically low 42.0-54.0 [facility] Comment on above: Performed By: #### C BC #### [facility] [address] [place] [address] Dr. Leesa Urbina Hemoglobin (Bld) [Mass/Vol] 12.0 g/dL Critically low 14.0-18.0 [facility] Comment on above: Performed By: #### C BC #### [facility] [address] [place] [address] Dr. Leesa Urbina IG # 0.01 10e3/ul Normal 0.00-0.03 [facility] Comment on above: Performed By: #### C BC #### [facility] [address] [place] [address] Dr. Leesa Urbina IG % 0.2 % Normal 0.0-0.[address] [facility] Comment on above: Performed By: #### C BC #### [facility] [address] [place] [address] Dr. Leesa Urbina LYMPH # 1.7 103/ul Normal 1.2-3.[address] [facility] Comment on above: Performed By: #### C BC #### [facility] [address] [place] [address] Dr. Leesa Urbina Lymphocytes/100 WBC (Bld) 26.1 % Normal 20.5-60.0 [facility] Comment on above: Performed By: #### C BC #### [facility] [address] [place] [address] Dr. Leesa Urbina MANUAL DIFF REQ NO Normal [facility] Comment on above: Performed By: #### C BC #### [facility] [address] [place] [address] Dr. Leesa Urbina MCH (RBC) [Entitic mass] 31.0 pg Normal 25.9-34.0 [facility] Comment on above: Performed By: #### C BC #### [facility] [address] [place] [address] Dr. Leesa Urbina MCHC (RBC) [Mass/Vol] 33.5 g/dL Normal 29.9-35.[address] [facility] Comment on above: Performed By: #### C BC #### [facility] [address] [address] [address] Leesa Urbina MCV (RBC) [Entitic vol] 92.5 fL Normal 80.0-94.[address] [facility] Comment on above: Performed By: #### C BC #### [facility] [address] [place] [address] Dr. Leesa Urbina MONO # 0.4 103/ul Normal 0.3-0.[address] [facility] Comment on above: Performed By: #### C BC #### [facility] [address] [place] [address] Dr. Leesa Urbina Monocytes/100 WBC (Bld) 6.5 % Normal 1.7-12.[address] [facility] Comment on above: Performed By: #### C BC #### [facility] [address] [place] [address] Dr. Leesa Urbina NEUT # 4.0 103/ul Normal 1.4-6.[address] [facility] Comment on above: Performed By: #### C BC #### [facility] [address] [place] [address] Dr. Leesa Urbina Neutrophils/100 WBC (Bld) 60.4 % Normal 43.0-75.[address] [facility] Comment on above: Performed By: #### C BC #### [facility] [address] [place] [address] Dr. Leesa Urbina Platelet mean volume (Bld) [Entitic vol] 10.6 fL Normal 9.5-13.[address] [facility] Comment on above: Performed By: #### C BC #### [facility] [address] [place] [address] Dr. Leesa Urbina PLT 185 103/ul Normal 150-[address] [facility] Comment on above: Performed By: #### C BC #### [facility] [address] [place] [address] Dr. Leesa Urbina RBC 3.87 106/ul Critically low 4.70-6.10 [facility] Comment on above: Performed By: #### C BC #### [facility] [address] [place] [address] Dr. Leesa Urbina WBC 6.6 103/ul Normal 4.0-11.0 [facility] Comment on above: Performed By: #### C BC #### [facility] [address] [address] [address] Leesa Urbina GLYCOHEMOGLOBIN A1Con 2021 ADA RECOMMENDATION SEE BELOW Normal [facility] Comment on above: Result Comment: ADA RECOMMENDED LIMIT 4.0 - 6.0 ADA THERAPEUTIC TARGET < 7.0 ACTION SUGGESTED > 7.0 Performed By: #### A 1C #### [facility] [address] [address] [address] Leesa Urbina Glucose [Mass/Vol] 151 mg/dL Normal [facility] Comment on above: Performed By: #### A 1C #### [facility] [address] [place] [address] Dr. Leesa Urbina HbA1c (Bld) [Mass fraction] 6.9 % Critically high 4.5-6.2 [facility] Comment on above: Performed By: #### A 1C #### [facility] [address] [place] [address] Dr. Leesa Urbina LIPID PROFILEon 05-06-2022 CHOL-HDL RATIO NORM SEE BELOW Normal [facility] Comment on above: Result Comment: 3.3 - 4.4 LOW RISK 4.4 - 7.1 AVERAGE RISK 7.1 - 11.0 MODERATE RISK >11.0 HIGH RISK Performed By: #### L IPID, TSH, CMP #### [facility] [address] [place] [address] Dr. Leesa Urbina Cholesterol [Mass/Vol] 136 mg/dL Normal <=200 [facility] Comment on above: Performed By: #### L IPID, TSH, CMP #### [facility] [address] [place] [address] Dr. Leesa Urbina Cholesterol in HDL [Mass/Vol] 62 mg/dL Critically high 40-60 [facility] Comment on above: Performed By: #### L IPID, TSH, CMP #### [facility] [address] [address] [address] Leesa Urbina Cholesterol in LDL [Mass/Vol] 53.0 mg/dL Normal [facility] Comment on above: Performed By: #### L IPID, TSH, CMP #### [facility] [address] [address] [address] Leesa Urbina Cholesterol.total/Chol esterol in HDL [Mass ratio] 2.2 {ratio} Normal [facility] Comment on above: Performed By: #### L IPID, TSH, CMP #### [facility] [address] [address] [address] Leesa Urbina HDL NORMAL > or = 60 mg/dl - LO W CARDIOVASCULAR RISK <40 mg/dl - HIGH CARDIOVASCULAR RISK Normal [facility] Comment on above: Performed By: #### L IPID, TSH, CMP #### [facility] [address] [place] [address] Dr. Leesa Urbina LDL CALC NORMAL SEE BELOW Normal [facility] Comment on above: Result Comment: <100 mg/dl OPTIMAL 100 - 129 mg/dl NEAR OR ABOVE OPTIMAL 130 - 159 mg/dl BORDERLINE HIGH 160 - 189 mg/dl HIGH >190 mg/dl VERY HIGH Performed By: #### L IPID, TSH, CMP #### [facility] [address] [address] [address] Leesa Urbina Triglyceride [Mass/Vol] 105 mg/dL Normal <=150 [facility] Comment on above: Performed By: #### L IPID, TSH, CMP #### [facility] [address] [address] [address] Leesa Urbina VLDL CALC 21.0 mg/dL Normal [facility] Comment on above: Performed By: #### L IPID, TSH, CMP #### [facility] [address] [address] [address] Leesa Urbina PROF 14(COMP METB)on 022 Albumin [Mass/Vol] 3.4 g/dL Normal 3.4-5.0 [facility] Comment on above: Performed By: #### L IPID, TSH, CMP #### [facility] [address] [address] [address] Leesa Urbina Albumin/Globulin [Mass ratio] 1.1 {ratio} Normal [facility] Comment on above: Performed By: #### L IPID, TSH, CMP #### [facility] [address] [place] [address] Dr. Leesa Urbina ALP [Catalytic activity/Vol] 77 U/L Normal 46-116 [facility] Comment on above: Performed By: #### L IPID, TSH, CMP #### [facility] [address] [place] [address] Dr. Leesa Urbina ALT [Catalytic activity/Vol] 12 U/L Critically low 16-63 [facility] Comment on above: Performed By: #### L IPID, TSH, CMP #### [facility] [address] [place] [address] Dr. Leesa Urbina Anion gap [Moles/Vol] 12.7 mmol/L Normal [facility] Comment on above: Performed By: #### L IPID, TSH, CMP #### [facility] [address] [place] [address] Dr. Leesa Urbina AST [Catalytic activity/Vol] 19 U/L Normal 15-37 [facility] Comment on above: Performed By: #### L IPID, TSH, CMP #### [facility] [address] [place] [address] Dr. Leesa Urbina Bilirubin [Mass/Vol] 0.4 mg/dL Normal 0.2-1.0 [facility] Comment on above: Performed By: #### L IPID, TSH, CMP #### [facility] [address] [place] [address] Dr. Leesa Urbina Calcium [Mass/Vol] 8.5 mg/dL Normal 8.5-10.1 [facility] Comment on above: Performed By: #### L IPID, TSH, CMP #### [facility] [address] [place] [address] Dr. Leesa Urbina Chloride [Moles/Vol] 107 mmol/L Normal 98-107 [facility] Comment on above: Performed By: #### L IPID, TSH, CMP #### [facility] [address] [place], [place] [id number] Dr. Leesa Urbina CO2 [Moles/Vol] 27.4 mmol/L Normal 21.0-32.0 [facility] Comment on above: Performed By: #### L IPID, TSH, CMP #### [facility] [address] [address] [address] Leesa Urbina Creatinine [Mass/Vol] 1.06 mg/dL Normal 0.70-1.30 [facility] Comment on above: Performed By: #### L IPID, TSH, CMP #### [facility] [address] [address] [address] Leesa Urbina EGFR-AF GHANAIAN >60 Normal >=60 [facility] Comment on above: Performed By: #### L IPID, TSH, CMP #### [facility] [address] [address] [address] Leesa Urbina EGFR-NON AF GHANAIAN >60 Normal >=60 [facility] Comment on above: Performed By: #### L IPID, TSH, CMP #### [facility] [address] [address] [address] Leesa Urbina Globulin (S) [Mass/Vol] 3.1 g/dL Normal [facility] Comment on above: Performed By: #### L IPID, TSH, CMP #### [facility] [address] [address] [address] Leesa Urbina Glucose [Mass/Vol] 171 mg/dL Critically high 74-106 T [facility] Comment on above: Performed By: #### L IPID, TSH, CMP #### [facility] [address] [address] [address] Leesa Urbian Potassium [Moles/Vol] 4.1 mmol/L Normal 3.5-5.1 [facility] Comment on above: Performed By: #### L IPID, TSH, CMP #### [facility] [address] [address] [address] Leesa Urbina Protein [Mass/Vol] 6.5 g/dL Normal 6.4-8.2 [facility] Comment on above: Performed By: #### L IPID, TSH, CMP #### [facility] [address] [place], [place] [address] Dr. Leesa Urbina Sodium [Moles/Vol] 143 mmol/L Normal 136-145 [facility] Comment on above: Performed By: #### L IPID, TSH, CMP #### [facility] [address] [address] [address] Leesa Urbina Urea nitrogen [Mass/Vol] 24.0 mg/dL Critically high 7.0-18.0 [facility] Comment on above: Performed By: #### L IPID, TSH, CMP #### [facility] [address] [address] [address] Leesa Urbina Urea nitrogen/Creatinine [Mass ratio] 22.6 mg/mg Normal [facility] Comment on above: Performed By: #### L IPID, TSH, CMP #### [facility] [address] [address] [address] Leesa Urbina Basophils Auto (Bld) [#/Vol] [...] 12-05-2021 WBC (Bld) [#/Vol] 7.0 10*3/uL 4.5-11.0 [facility] COVID-19 Positive/NegativeOr dered By: Juan Ventura on 12-05-2021 SARS-CoV-2 (COVID-19) N gene RENETTA+probe Ql (Resp) Negative Negative [facility] Comment on above: Testing for SARS-CoV -2 by RT-PCR This test was developed and its performance characteristics determined by [employer] ([employer]) and validated at the [facility] [...] on 12-05-2021 Creatinine [Mass/Vol] 1.28 mg/dL 0.64-1.27 [facility] Eosinophils Auto (Bld) [#/Vo l]Ordered [...] 12-05-2021 MCHC (RBC) [Mass/Vol] 33.1 g/dL 32.5-35.6 [facility] MCV Auto (RBC) [Entitic vol] [...] 12-05-2021 RBC (Bld) [#/Vol] 4.00 10*6/uL 3.90-5.60 [facility] Serum or plasma calcium fco urement (mass/volume)Ordered By: Juan Ventura on 12-05-2021 Calcium [Mass/Vol] 9.2 mg/dL 8.2-10.2 [facility] Serum or plasma chloride daniel surement (moles/volume)Ordered By: Juan Ventura on 12-05-2021 Chloride [Moles/Vol] 107 mmol/L 95-114 [facility] Serum or plasma glucose fco urement (mass/volume)Ordered By: Juan Ventura on 12-05-2021 Glucose [Mass/Vol] 117 mg/dL 70-100 [facility] Comment on above: ADA recommended refe rence range Random Glucose Reference Range is dependent on time and content of last meal. Glucose of more than 200 mg/dL in a nonstressed, ambulatory subject supports the diagnosis of Diabetes Mellitus. Serum or plasma potassium me asurement (moles/volume)Ordered By: Juan Ventura on 12-05-2021 Potassium [Moles/Vol] 4.6 mmol/L 3.5-5.1 [facility] Serum or plasma sodium measu rement (moles/volume)Ordered By: Juan Ventura on 12-05-2021 Sodium [Moles/Vol] 141 mmol/L 136-146 [facility] Serum or plasma total carbon dioxide measurement (moles/volume)Ordered By: Juan Ventura on 12-05-2021 CO2 [Moles/Vol] 26.2 mmol/L 22.0-30.0 [facility] Serum or plasma urea nitroge n measurement (mass/volume)Ordered By: Juan Ventura on 12-05-2021 Urea nitrogen [Mass/Vol] 23 mg/dL 9- [facility] CBC AUTO DIFFon 11-05-2021 BASO # 0.1 103/ul Normal 0.0-0.1 [facility] Comment on above: Performed By: #### C BC #### [facility] [address] [place] [address] Dr. Leesa Urbina Basophils/100 WBC (Bld) 0.8 % Normal 0.2-2.0 [facility] Comment on above: Performed By: #### C BC #### [facility] [address] [place] [address] Dr. Leesa Urbina EO # 0.4 103/ul Normal 0.0-0.7 [facility] Comment on above: Performed By: #### C BC #### [facility] [address] [place] [address] Dr. Leesa Urbina Eosinophils/100 WBC (Bld) 5.6 % Normal 0.9-7.0 [facility] Comment on above: Performed By: #### C BC #### [facility] [address] [place] [address] Dr. Leesa Urbina Erythrocyte distribution width (RBC) [Ratio] 13.4 % Normal 11.0-15.0 [facility] Comment on above: Performed By: #### C BC #### [facility] [address] [place] [address] Dr. Leesa Urbina Hematocrit (Bld) [Volume fraction] 36.1 % Critically low 42.0-54.0 [facility] Comment on above: Performed By: #### C BC #### [facility] [address] [place] [address] Dr. Leesa Urbina Hemoglobin (Bld) [Mass/Vol] 11.8 g/dL Critically low 14.0-18.0 [facility] Comment on above: Performed By: #### C BC #### [facility] [address] [place] [address] Dr. Leesa Urbina IG # 0.02 10e3/ul Normal 0.00-0.03 [facility] Comment on above: Performed By: #### C BC #### [facility] [address] [place] [address] Dr. Leesa Urbina IG % 0.3 % Normal 0.0-0.5 [facility] Comment on above: Performed By: #### C BC #### [facility] [address] [place] [address] Dr. Leesa Urbina LYMPH # 1.8 103/ul Normal 1.2-3.8 [facility] Comment on above: Performed By: #### C BC #### [facility] [address] [place] [address] Dr. Leesa Urbina Lymphocytes/100 WBC (Bld) 28.4 % Normal 20.5-60.0 [facility] Comment on above: Performed By: #### C BC #### [facility] [address] [place] [address] Dr. Leesa Urbina MANUAL DIFF REQ NO Normal [facility] Comment on above: Performed By: #### C BC #### [facility] [address] [place] [address] Dr. Leesa Urbina MCH (RBC) [Entitic mass] 30.7 pg Normal 25.9-34.0 [facility] Comment on above: Performed By: #### C BC #### [facility] [address] [place] [address] Dr. Leesa Urbina MCHC (RBC) [Mass/Vol] 32.7 g/dL Normal 29.9-35.2 [facility] Comment on above: Performed By: #### C BC #### [facility] [address] [place] [address] Dr. Leesa Urbina MCV (RBC) [Entitic vol] 94.0 fL Normal 80.0-94.0 [facility] Comment on above: Performed By: #### C BC #### [facility] [address] [place] [address] Dr. Leesa Urbina MONO # 0.5 103/ul Normal 0.3-0.8 [facility] Comment on above: Performed By: #### C BC #### [facility] [address] [place] [address] Dr. Leesa Urbina Monocytes/100 WBC (Bld) 8.1 % Normal 1.7-12.0 [facility] Comment on above: Performed By: #### C BC #### [facility] [address] [place] [address] Dr. Leesa Urbina NEUT # 3.5 103/ul Normal 1.4-6.5 [facility] Comment on above: Performed By: #### C BC #### [facility] [address] [place] [address] Dr. Leesa Urbina Neutrophils/100 WBC (Bld) 56.8 % Normal 43.0-75.0 [facility] Comment on above: Performed By: #### C BC #### [facility] [address] [place] [address] Dr. Leesa Urbina Platelet mean volume (Bld) [Entitic vol] 10.3 fL Normal 9.5-13.[address] [facility] Comment on above: Performed By: #### C BC #### [facility] [address] [place] [address] Dr. Leesa Urbina PLT 179 103/ul Normal 150-[address] [facility] Comment on above: Performed By: #### C BC #### [facility] [address] [place] [address] Dr. Leesa Urbina RBC 3.84 106/ul Critically low 4.70-6.10 [facility] Comment on above: Performed By: #### C BC #### [facility] [address] [address] [address] Leesa Urbina WBC 6.2 103/ul Normal 4.0-11.0 [facility] Comment on above: Performed By: #### C BC #### [facility] [address] [address] [address] Leesa Urbina GLYCOHEMOGLOBIN A1Con 2021 ADA RECOMMENDATION SEE BELOW Normal [facility] Comment on above: Result Comment: ADA RECOMMENDED LIMIT 4.0 - 6.0 ADA THERAPEUTIC TARGET < 7.0 ACTION SUGGESTED > 7.0 Performed By: #### L IPID, TSH, CMP #### [facility] [address] [address] [address] Leesa Urbina Glucose [Mass/Vol] 151 mg/dL Normal [facility] Comment on above: Performed By: #### L IPID, TSH, CMP #### [facility] [address] [address] [address] Leesa Urbina HbA1c (Bld) [Mass fraction] 6.9 % Critically high 4.5-6.2 [facility] Comment on above: Performed By: #### L IPID, TSH, CMP #### [facility] [address] [address] [address] Leesa Urbina LIPID PROFILEon 11-05-2021 CHOL-HDL RATIO NORM SEE BELOW Normal [facility] Comment on above: Result Comment: 3.3 - 4.4 LOW RISK 4.4 - 7.1 AVERAGE RISK 7.1 - 11.0 MODERATE RISK >11.0 HIGH RISK Performed By: #### L IPID, TSH, CMP #### [facility] [address] [address] [address] Leesa Uribna Cholesterol [Mass/Vol] 150 mg/dL Normal <=200 [facility] Comment on above: Performed By: #### L IPID, TSH, CMP #### [facility] [address] [address] [address] Leesa Urbina Cholesterol in HDL [Mass/Vol] 60 mg/dL Normal 40-60 [facility] Comment on above: Performed By: #### L IPID, TSH, CMP #### [facility] [address] [address] [address] Leesa Urbina Cholesterol in LDL [Mass/Vol] 70.8 mg/dL Normal [facility] Comment on above: Performed By: #### L IPID, TSH, CMP #### [facility] [address] [address] [address] Leesa Urbina Cholesterol.total/Chol esterol in HDL [Mass ratio] 2.5 {ratio} Normal [facility] Comment on above: Performed By: #### L IPID, TSH, CMP #### [facility] [address] [address] [address] Leesa Urbina HDL NORMAL > or = 60 mg/dl - LO W CARDIOVASCULAR RISK <40 mg/dl - HIGH CARDIOVASCULAR RISK Normal [facility] Comment on above: Performed By: #### L IPID, TSH, CMP #### [facility] [address] [address] [address] Leesa Urbina LDL CALC NORMAL SEE BELOW Normal [facility] Comment on above: Result Comment: <100 mg/dl OPTIMAL 100 - 129 mg/dl NEAR OR ABOVE OPTIMAL 130 - 159 mg/dl BORDERLINE HIGH 160 - 189 mg/dl HIGH >190 mg/dl VERY HIGH Performed By: #### L IPID, TSH, CMP #### [facility] [address] [address] [address] Leesa Urbina Triglyceride [Mass/Vol] 96 mg/dL Normal <=[address] [facility] Comment on above: Performed By: #### L IPID, TSH, CMP #### [facility] [address] [address] [address] Leesa Urbina VLDL CALC 19.2 mg/dL Normal [facility] Comment on above: Performed By: #### L IPID, TSH, CMP #### [facility] [address] [address] [address] Leesa Urbina MICROALB CREAT RATIO RANDOMo n 11-05-2021 mALB <1.3 Normal <=30.0 [facility] Comment on above: Performed By: #### L IPID, TSH, CMP #### [facility] [address] [address] [address] Leesa GAGEB CR RATIO 11.4 mg/g Normal 0.0-29.9 [facility] Comment on above: Performed By: #### L IPID, TSH, CMP #### [facility] [address] [address] [address] Leesa Urbina MALB CR RATIO RANGE SEE BELOW Normal [facility] Comment on above: Result Comment: NO M ICROALBUMINURIA 0-29 MG/G CLINICAL MICROALBUMINURIA 30-300 MG/G MACROALBUMINURIA >300 MG/G Performed By: #### L IPID, TSH, CMP #### [facility] [address] [place] [address] Dr. Leesa Urbina URINE CREAT 114.03 mg/dL Normal 20.00-300.00 [facility] Comment on above: Performed By: #### L IPID, TSH, CMP #### [facility] [address] [place] [address] Dr. Leesa Urbina PROF 14(COMP METB)on 11-05- 022 Albumin [Mass/Vol] 2.3 g/dL Critically low 3.4-5.0 [facility] Comment on above: Performed By: #### L IPID, TSH, CMP #### [facility] [address] [place] [address] Dr. Leesa Urbina Albumin/Globulin [Mass ratio] 0.5 {ratio} Normal [facility] Comment on above: Performed By: #### L IPID, TSH, CMP #### [facility] [address] [place] [address] Dr. Leesa Urbina ALP [Catalytic activity/Vol] 77 U/L Normal 46-116 [facility] Comment on above: Performed By: #### L IPID, TSH, CMP #### [facility] [address] [address] [address] Leesa Urbina ALT [Catalytic activity/Vol] 16 U/L Normal 16-63 [facility] Comment on above: Performed By: #### L IPID, TSH, CMP #### [facility] [address] [address] [address] Leesa Urbina Anion gap [Moles/Vol] 13.8 mmol/L Normal [facility] Comment on above: Performed By: #### L IPID, TSH, CMP #### [facility] [address] [place] [address] Dr. Leesa Urbina AST [Catalytic activity/Vol] 15 U/L Normal 15-37 [facility] Comment on above: Performed By: #### L IPID, TSH, CMP #### [facility] [address] [place] [address] Dr. Leesa Urbina Bilirubin [Mass/Vol] 0.5 mg/dL Normal 0.2-1.0 [facility] Comment on above: Performed By: #### L IPID, TSH, CMP #### [facility] [address] [place] [address] Dr. Leesa Urbina Calcium [Mass/Vol] 8.7 mg/dL Normal 8.5-10.1 [facility] Comment on above: Performed By: #### L IPID, TSH, CMP #### [facility] [address] [place] [address] Dr. Leesa Urbina Chloride [Moles/Vol] 107 mmol/L Normal 98-107 [facility] Comment on above: Performed By: #### L IPID, TSH, CMP #### [facility] [address] [place] [address] Dr. Leesa Urbina CO2 [Moles/Vol] 26.2 mmol/L Normal 21.0-32.0 [facility] Comment on above: Performed By: #### L IPID, TSH, CMP #### [facility] [address] [place] [address] Dr. Leesa Urbina Creatinine [Mass/Vol] 1.25 mg/dL Normal 0.70-1.30 [facility] Comment on above: Performed By: #### L IPID, TSH, CMP #### [facility] [address] [place] [address] Dr. Leesa Urbina EGFR-AF GHANAIAN >60 Normal >=60 [facility] Comment on above: Performed By: #### L IPID, TSH, CMP #### [facility] [address] [place] [address] Dr. Leesa Urbina EGFR-NON AF GHANAIAN 55 mL/min/1.73m2 Critically low >=[address] [facility] Comment on above: Performed By: #### L IPID, TSH, CMP #### [facility] [address] [place] [address] Dr. Leesa Urbina Globulin (S) [Mass/Vol] 4.3 g/dL Normal [facility] Comment on above: Performed By: #### L IPID, TSH, CMP #### [facility] [address] [place] [address] Dr. Leesa Urbina Glucose [Mass/Vol] 137 mg/dL Critically high 74-106 T [facility] Comment on above: Performed By: #### L IPID, TSH, CMP #### [facility] [address] [place] [address] Dr. Leesa Urbina Potassium [Moles/Vol] 4.0 mmol/L Normal 3.5-5.[address] [facility] Comment on above: Performed By: #### L IPID, TSH, CMP #### [facility] [address] [place] [address] Dr. Leesa Urbina Protein [Mass/Vol] 6.6 g/dL Normal 6.4-8.2 [facility] Comment on above: Performed By: #### L IPID, TSH, CMP #### [facility] [address] [place] [address] Dr. Leesa Urbina Sodium [Moles/Vol] 143 mmol/L Normal 136-145 [facility] Comment on above: Performed By: #### L IPID, TSH, CMP #### [facility] [address] [place] [address] Dr. Leesa Urbina Urea nitrogen [Mass/Vol] 24.0 mg/dL Critically high 7.0-18.0 [facility] Comment on above: Performed By: #### L IPID, TSH, CMP #### [facility] [address] [place], [place] [address] Dr. Leesa Urbina Urea nitrogen/Creatinine [Mass ratio] 19.2 mg/mg Normal [facility] Comment on above: Performed By: #### L IPID, TSH, CMP #### [facility] [address] [place], [place] [address] Dr. Leesa Urbina TSHon 11-05-2021 TSH 0.996 uIU/mL Normal 0.358-3.740 [facility] Comment on above: Performed By: #### L IPID, TSH, CMP #### [facility] [address] [place], [place] [address] Dr. Leesa Urbina Tobacco Screening.on 022 Adult depression screening assessment No [facility] [facility] 250 DO Work Phone: Fall risk assessment a) No falls within the last year [facility] [facility] 250 DO Work Phone: Tobacco use status [facility]PH[facility] b) No [facility] [facility] 250 DO Work Phone: Vital Signs Date Time Vital Sign Value Performing Clinician Facility 07-13-2023 08:34-0500 Body height 180.3 cm Dev Camp MD Work Phone: [facility] 07-13-2023 08:34-0500 Body mass index (BMI) [Ratio] 23.99 kg/m2 Dev Camp MD Work Phone: [facility] 07-13-2023 08:34-0500 Body weight 78.02 kg Dev Camp MD Work Phone: [facility] 07-13-2023 08:34-0500 Diastolic blood pressure 64 mm[Hg] Dev Camp MD Work Phone: [facility] 07-13-2023 08:34-0500 Heart rate 60 /min Dev Camp MD Work Phone: [facility] 07-13-2023 08:34-0500 Systolic blood pressure 108 mm[Hg] Dve Camp MD Work Phone: [facility] 11-17-2022 14:15-0400 Body height 180.34 cm Imad Asaad Other [employer] Other 11-17-2022 14:15-0400 Body mass index (BMI) [Ratio] 23.71 kg/m2 Imad Asaad Other [employer] Other 11-17-2022 14:15-0400 Body weight 77.11 kg Imad Asaad Other [employer] Other 11-17-2022 14:15-0400 Diastolic blood pressure 78 mm[Hg] Imad Asaad Other [employer] Other 11-17-2022 14:15-0400 Systolic blood pressure 127 mm[Hg] Imad Asaad Other [employer] Other 07-14-2022 09:08-0500 Body height 180.34 cm Gabriel Bello Work Phone: [facility] [employer] 250 DO Work Phone: 07-14-2022 09:08-0500 Body mass index (BMI) [Ratio] 24.13 kg/m2 Gabriel Bello Work Phone: [facility] [employer] 250 DO Work Phone: 07-14-2022 09:08-0500 Body surface area Derived from formula 1.98 m2 Gabriel Bello Work Phone: [facility] [employer] 250 DO Work Phone: 07-14-2022 09:08-0500 Body weight 78.47 kg Gabriel Bello Work Phone: [facility] 250 DO Work Phone: 07-14-2022 09:08-0500 Diastolic blood pressure 78 mm[Hg] Gabriel Bello Work Phone: [facility] 250 DO Work Phone: 07-14-2022 09:08-0500 Heart rate 68 /min Gabriel eBllo Work Phone: [facility] 250 DO Work Phone: 07-14-2022 09:08-0500 Systolic blood pressure 124 mm[Hg] Gabriel Bello Work Phone: [facility] 250 DO Work Phone: 07-03-2021 15:20-0500 Diastolic blood pressure 78 mm[Hg] Gabriel Bello Work Phone: [facility] 250 DO Work Phone: 07-03-2021 15:20-0500 Heart rate 65 /min Gabriel Bello Work Phone: [facility] 250 DO Work Phone: 07-03-2021 15:20-0500 Systolic blood pressure 136 mm[Hg] Gabriel Bello Work Phone: [facility] 250 DO Work Phone: 07-03-2021 15:17-0500 Body height 180.34 cm Gabriel Bello Work Phone: [facility] 250 DO Work Phone: 07-03-2021 15:17-0500 Body mass index (BMI) [Ratio] 24.97 kg/m2 Gabriel Bello Work Phone: [facility] 250 DO Work Phone: 07-03-2021 15:17-0500 Body surface area Derived from formula 2.01 m2 Gabriel Downingman Work Phone: [facility] 250 DO Work Phone: 07-03-2021 15:17-0500 Body weight 81.19 kg Gabriel Bello Work Phone: [facility] 250 DO Work Phone: 07-03-2021 15:17-0500 Diastolic blood pressure 80 mm[Hg] Gabriel Bello Work Phone: [facility] 250 DO Work Phone: 07-03-2021 15:17-0500 Systolic blood pressure 151 mm[Hg] Gabriel Bello Work Phone: [facility] 250 DO Work Phone: Encounters Encounter Date Encounter Type Care Provider Facility Start: 04-27-2024 End: 04-27-2024 Bamboo linda aBrrow MD Work Phone: [facility] Start: 04-27-2024 End: 04-27-2024 Nanette Barrow MD Work Phone: [facility] Start: 04-03-2024 End: 04-03-2024 Clinisync Result Encounter Generic External Data Provider [facility] Unsolicited Start: 04-03-2024 End: 04-03-2024 Clinisync Result Encounter Generic External Data Provider [facility] Unsolicited Start: 03-13-2024 End: 03-13-2024 Clinisync Result Encounter Generic External Data Provider [facility] External [facility] Unsolicited Start: 03-13-2024 End: 03-13-2024 Clinisync Result Encounter Generic External Data Provider [facility] External [facility] Unsolicited Start: 02-21-2024 End: 02-21-2024 ambulatory [facility] Start: 02-07-2024 End: 02-07-2024 ambulatory [facility] Ambulatory Start: 02-03-2024 End: 02-03-2024 Clinisync Result Encounter Generic External Data Provider [facility] External [facility] Unsolicited Start: 02-03-2024 End: 02-03-2024 Clinisync Result Encounter Generic External Data Provider [facility] External [facility] Unsolicited Start: 01-13-2024 End: 01-13-2024 ambulatory [facility] Ambulatory Start: 01-11-2024 End: 01-11-2024 ambulatory GABRIEL BELLO Not Available Start: 11-15-2023 End: 11-15-2023 ambulatory GABRIEL BELLO Not Available Start: 10-26-2023 End: 10-26-2023 ambulatory CHARLEEN A PETITTI Not Available Start: 10-08-2023 End: 10-08-2023 ambulatory GABRIEL BELLO Not Available Start: 10-07-2023 End: 10-07-2023 ambulatory GABRIEL BELLO Not Available Start: 10-07-2023 End: 10-07-2023 ambulatory GABRIEL BELLO Not Available Start: 09-13-2023 End: 09-13-2023 Patient encounter procedure DO Gabriel Bello Work Phone: [facility] Work Phone: Start: 09-13-2023 End: 09-13-2023 ambulatory DO Gabriel Ace Work Phone: [facility] Work Phone: Start: 07-13-2023 End: 07-13-2023 Office outpatient visit 25 minutes Dev Camp MD Work Phone: [facility] Comment on above: Benign essential hyp ertension (Primary Dx); Mixed hyperlipidemia; Paroxysmal atrial fibrillation (CMS/HCC); Former smoker Start: 07-13-2023 End: 07-13-2023 ambulatory DEV CAMP [facility] Ambulatory Start: 05-26-2023 End: 05-26-2023 ambulatory CHRIS PATEL Not Available Start: 05-12-2023 End: 05-12-2023 ambulatory GABRIEL BLELO Not Available Start: 04-26-2023 End: 04-26-2023 ambulatory CHARLEEN BARROW Not Available Start: 11-26-2022 End: 11-26-2022 ambulatory DO Gabriel Bello Work Phone: [facility] Work Phone: Start: 11-26-2022 End: 11-26-2022 Patient encounter procedure DO Gabriel Bello Work Phone: [facility] [place] Work Phone: Start: 11-17-2022 End: 11-17-2022 ambulatory Imad Asaad Other [facility] [employer] Other Start: 11-17-2022 Office outpatient ne w 45 minutes Imad Asaad [facility] Start: 11-17-2022 Telephone encounter Imad Asaad [facility] Start: 09-03-2022 End: 09-04-[address] GABRIEL BELLO Facility:[facility] Start: 07-14-2022 Office outpatient visit 25 minutes Gabriel Bello Work Phone: [facility] 250 DO Work Phone: Start: 07-14-[address] Gabriel Kulkarni Facility:[id number] Start: 05-25-2022 End: 05-26-[address] GABRIEL BELLO Facility:[facility] Start: 05-06-2022 End: 05-07-[address] GABRIEL BELLO Facility:[facility] Start: 03-27-2022 Rx Renewal Gabriel mae Work Phone: [facility] 250 DO Work Phone: Start: 12-05-2021 End: 12-05-2021 Patient encounter procedure DO Gabriel Bello Work Phone: [facility] Start: 11-20-2021 End: 11-21-[address] DOCTOR BISHOP Facility:[facility] Start: 11-05-2021 End: 11-06-[address] GABRIEL BELLO Facility:[facility] Start: 07-03-2021 Office outpatient visit 25 minutes Gabriel Bello Work Phone: [facility] 250 DO Work Phone: Start: 03-05-2021 Rx Renewal Marina lozada MD Work Phone: [facility] 250 DO Work Phone: Start: 07-12-2020 End: 07-12-2020 Discharged Recurring Gabriel Bello [facility] Vaccine Procedures Date Procedure Procedure Detail Performing Clinician Start: 04-03-2024 ALL CBC WITH AUTO DIFF Generic External Data Provider Start: 03-13-2024 ALL CBC WITH AUTO DIFF Generic External Data Provider Start: 02-03-2024 ALL BASIC METABOLIC PANEL Generic External Data Provider Start: 09-13-2023 Positron [...] By: #### L IPID, TSH, CMP #### [facility] [address] [address] [address] Leesa Urbina Start: 11-20-[address] DOCTOR BISHOP Comment on above: Performed By: #### P SAD #### [facility] [address] [address] [address] Leesa Urbina Appendectomy Gabriel daniel Work Phone: Cataract surgery Gabriel morris Work Phone: Colonoscopy Gabriel daniel Work Phone: Comment on above: [id number] Jovanny Yu; Operation on lip Gabriel morris Work Phone: Prostatectomy Gabriel mae Work Phone: Plan of Treatment Date Care Activity Detail Author Start: 12-24-2032 Screening for malign ant neoplasm of colon [facility] Start: 03-16-2026 Glaucoma screening Diabetes: R etinopathy Screening [facility] Start: 10-31-2024 Urine screening for protein Diabetes: Urine Protein Screening [facility] Start: 07-18-2024 End: 07-18-2024 Patient encounter procedure 07/18/2024 8:50 AM EST Office Visit [facility] [address] [facility] [address] [place] [address] Dev Camp MD [address] [facility] [address] [place] [address] [facility] Start: 05-22-2024 End: 05-22-2024 Patient encounter procedure 05/22/2024 8:30 AM EST Office Visit [facility] [address] [place] [id number] Gabriel Bello DO [address] [place] [address] [facility] Start: 05-12-2024 Medicare Annual Wellness (AWV) Medicare Annual Wellness (AWV) [facility] Start: 04-27-2024 End: 04-27-2024 Patient encounter procedure [facility] Comment on above: Arrived Start: 01-23-2024 Influenza vaccination Influenza Vacc ine (#1) [facility] Start: 12-12-2023 Glaucoma screening Diabetes: R etinopathy Screening [facility] Start: 07-13-2023 FUV, Provider: Dev Camp, Status: Pen, Time: 8:50 AM FUV, Provider: Dev Camp, Status: Pen, Time: 8:50 AM [facility] Work Phone: Start: 02-05-2023 Hemoglobin A1c measurement Diabetes: Hemoglobin A1C [facility] Start: 07-14-2022 FUV, Provider: Dev Camp, Status: Pen, Time: 9:10 AM FUV, Provider: Dev Camp, Status: Pen, Time: 9:10 AM [facility] 250 DO Work Phone: Start: 06-24-2021 FUV, Provider: Dev Camp, Status: Pen, Time: 10:15 AM FUV, Provider: Dev Camp, Status: Pen, Time: 10:15 AM [facility] 250 DO Work Phone: Start: 1960 DTaP/Tdap/Td Vaccine s (1 - Tdap) DTaP/Tdap/Td Vaccines (1 - Tdap) [facility] Start: 1957 Urine screening for protein Diabetes: Urine Protein Screening [facility] Start: 1948 Diabetic foot examination Diabetes: Foot Exam [facility] Start: 1948 Glaucoma screening Diabetes: R etinopathy Screening [facility] Start: 1938 Hemoglobin A1c measurement Diabetes: Hemoglobin A1C [facility] Start: 1938 Lipid panel Lipid Panel [facility] Start: 1938 Medicare Annual Wellness Visit Medicare Annual Wellness Visit (AWV) [facility] Start: 1938 Screening for malign ant neoplasm of colon [facility] HIV 1+2 Ab+HIV1 p24 Ag [Presence] in Serum or Plasma by Immunoassay [facility] Immunizations Immunization Date Immunization Notes Care Provider Estefanía [facility] 03-25-2024 influenza virus vacc ine, unspecified formulation Charleen Barrow MD Work Phone: [facility] 03-20-2023 Influenza, Seasonal, Quadrivalent, Adjuvanted Generic Provider [facility] 03-20-2023 influenza virus vacc ine, unspecified formulation Generic Provider [facility] 04-03-2022 Moderna COVID-19 Biv al Booster 50 [...] MCG/0.5ML Intramuscular Suspension Gabriel Bello Work Phone: [facility] 03-19-2021 Moderna SARS-CoV-2 Booster Vaccination Generic Provider [facility] 03-12-2021 influenza, high dose seasonal, preservative-free Gabriel Bello Work Phone: [facility] 02-26-2021 Fluzone High-Dose Quadrivalent 0.7 ML Intramuscular Suspension Prefilled Syringe Gabriel Bello Work Phone: [facility] 250 DO Work Phone: 07-12-2020 COVID-19 mRNA-1273 (Moderna) [facility] 06-15-2020 COVID-19 mRNA-1273 (Moderna) [facility] 03-15-2020 Fluad Quadrivalent 0 .5 ML Intramuscular Prefilled Syringe Gabriel Bello Work Phone: [facility] 02-24-2020 influenza, high dose seasonal, preservative-free Gabriel Bello Work Phone: [facility] 250 DO Work Phone: 03-11-2019 zoster vaccine recombinant Gabriel Bello Work Phone: [facility] 250 DO Work Phone: 03-01-2019 influenza, high dose seasonal, preservative-free Gabriel Bello Work Phone: [place] [address] DO Work Phone: 02-21-2019 influenza, high dose seasonal, preservative-free Gabriel Bello Work Phone: [facility] 250 DO Work Phone: 12-22-2018 zoster vaccine recombinant Gabriel Bello Work Phone: [place] [address] DO Work Phone: 02-25-2018 influenza, high dose seasonal, preservative-free Gabriel Bello Work Phone: [place] [address] DO Work Phone: 03-16-2017 influenza, high dose seasonal, preservative-free Gabriel Bello Work Phone: [place] [address] DO Work Phone: 05-24-2016 pneumococcal conjuga te vaccine, 13 valent Gabrielata Bello Work Phone: [facility] 03-30-2016 influenza, high dose seasonal, preservative-free Generic Provider [facility] 05-02-2015 seasonal influenza, intradermal, preservative free Generic Provider [facility] 03-22-2015 influenza, high dose seasonal, preservative-free Gabriel Bello Work Phone: [place] [address] DO Work Phone: 12-14-2013 pneumococcal conjuga te vaccine, 13 valent Generic Provider [facility] 10-10-2012 zoster vaccine, live Generic Provide r [facility] 05-24-2012 pneumococcal polysaccharide vaccine, 23 valent Gabriel Alicia Ace Work Phone: [facility] 05-31-2009 novel influenza-H1N1 -09, preservative-free, injectable Gabriel Alicia Ace Work Phone: [place] [address] DO Work Phone: 07-23-2003 pneumococcal polysaccharide vaccine, 23 valent Generic Provider [facility] Payers Date Payer Category Payer Self-pay [id number] 2022 Medicaid [employer] MEDICARE A DVANTAGE [id number] 2022 Medicare [id number] 1959 Private Health Insurance [facility] [id number] 1938 Unknown [id number] 2.16.840.1.677974.3.579.2. 356 1938 Unknown [id number] 2.16.840.1.750345.3.579.2. 593 1938 Unknown [id number] 2.16.840.1.904618.3.579.2. 593 1938 Unknown [id number] 2.16.840.1.881651.3.579.2. 593 1938 Unknown [id number] 2.16.840.1.074510.3.579.2. 593 1938 Unknown [id number] 2.16.840.1.942259.3.579.2. 593 1938 Unknown [id number] 2.16.840.1.882129.3.579.2. 1259 1938 Unknown [id number] 2.16.840.1.294473.3.579.2. 1259 1938 Unknown [id number] 2.16.840.1.941883.3.579.2. 9 1938 Unknown [id number] 2.16.840.1.211155.3.579.2. 125 1938 Unknown [id number] 2.16.840.1.629777.3.579.2. 125 1938 Unknown [id number] 2.16.840.1.373121.3.579.2. 1258 1938 Unknown [id number] 2.16.840.1.044341.3.579.2. 1258 1938 Unknown [id number] 2.16.840.1.235354.3.579.2. 1258 1938 Unknown [id number] 2.16.840.1.110942.3.579.2. 125 1938 Unknown [id number] 2.16.840.1.843567.3.579.2. 1243 1938 Unknown [id number] 2.16.840.1.876129.3.579.2. 1244 1938 Unknown [id number] 2.16.840.1.191835.3.579.2. 1244 1938 Unknown [id number] 2.16.840.1.433530.3.579.2. 124 1938 Unknown [id number] 2.16.840.1.358840.3.579.2. 1245 1938 Unknown [id number] 2.16.840.1.514729.3.579.2. 124 1938 Unknown [id number] 2.16.840.1.364323.3.579.2. 124 1938 Unknown [id number] 2.16.840.1.770936.3.579.2. 1246 1938 Unknown [id number] 2.16.840.1.689191.3.579.2. 1246 Medicare Medicare [id number] Private Health Insurance Self Pay [id number] [id number] Unknown [employer] Unknown [id number] 2.16.840.1.094010.3.579.2. 531 Social History Date Type Detail Facility Tobacco smoking stat [facility] Unknown if ever smoked [facility] Start: 1940 Sex Assigned At Male [facility] Start: 05-12-2023 End: 07-13-2023 Never a smoker Never a smoker -[facility] 250 DO Work Phone: Comment on above: 2-3 drinks a month; Start: 12-05-2021 End: 11-15-2023 Tobacco smoking status NHIS Ex-smoker (finding) [facility] Start: 05-12-2023 End: 07-13-2023 Sex Assigned At [facility] [employer] Other Start: 06-12-1956 End: 05-24-1989 History of tobacco use Current smoker [facility] Work Phone: Start: 06-12-1956 End: 05-24-1989 History of tobacco use Cigarette Smoker [facility] Work Phone: Start: 07-13-2023 End: 11-15-2023 Tobacco use and exposure Smokeless tobacco non-user [facility] Work Phone: Start: 07-13-2023 Alcohol intake Lifetime non-d joe (finding) [facility] Work Phone: Start: 1940 Sex Assigned At Not on file [facility] Work Phone: Start: 07-03-2023 End: 07-13-2023 Exposure to SARS-CoV-2 (event) Not sure [facility] History of tobacco use Pipe Smoker NOMS [...] by mouth once daily., Disp: , Rfl: [id number]-[id number]-mtkjmxu (Creon) 24,000-76,000 -120,000 unit capsule, Take 1 [...] my name below, I, Marisa Horner LPN [employer] attest that this documentation has been prepared [...] discussion and plan. documented in this encounter [facility] Work Phone: Instructions 07-13-2023 Patient Instructions [...] of your visit. documented in this encounter [facility] Work Phone: Evaluation note 11-17-2022 Note Date & Type Note Facility 11-17-2022 Evaluation note Encounter Date Diagnosis Assessment Notes Oct, Change in bowel habits (ICD-10 - R19.4) Oct, Diverticulosis (ICD-10 - K57.90) Oct, IBS (irritable bowel syndrome) (ICD-10 - K58.9) Oct, Pancreatic insufficiency (ICD-10 - K86.89) [facility] [employer] Other History of Present illness Narrative [...] necessary and we suggest follow-up next year -[facility] [address] DO Work Phone: Evaluation note Note Date & Type Note Facility Evaluation note No assessment information [facility] Work Phone: Evaluation note Note Date & Type Note Facility Evaluation note No Information [facility] [employer] Other Evaluation note Note Date & Type Note Facility Evaluation note Diagnosis Benign essential hypertension- Primary Essential hypertension, benign Mixed hyperlipidemia Paroxysmal atrial fibrillation (CMS/HCC) Atrial fibrillation Former smoker Personal history of tobacco use, presenting hazards to health documented in this encounter [facility] Work Phone: History general Narrative - Reported Note Date & Type Note Facility History general Narrative - Reported Type Medical History diabetes mallitus Medical History high blood pressure Medical History appendectomy Medical History Palpitations Medical History Malignant neoplasm of prostate Medical History Irritable bowel syndrome Medical History Diabetes mellitus [facility] mention of complication, type II or [...] History Right cataract surge ry per in [place], [place]. 10-28-17 Surgical History Mohs repair / left upper lip Hospitalization History see above [employer] Other History of Present illness Narrative Note [...] as before without change. -[facility] [address] DO Work Phone: Advance Directives Advance Directive Response Recorded Date/ Time Advance [...] for an annual follow-up of. Family History Unknown Family Member Name Dates Details Bradycardia: Father [...] Procedures ECG 12 Lead Dev Camp MD [address] [facility] [address] [place] [address] Referral ID Status Reason Start Date Expiration Date V isits Requested Visits Authorized [id number] Authorized 07/13/2023 07/12/2024 1 1 Specialty Diagnoses / Procedures Referred By Contac t Referred To Contact Cardiology Diagnoses Paroxysmal atrial fibrillation (CMS/HCC) Procedures Follow Up In Cardiology Dev Camp MD [address] [place] [address] [address] [place] [address] Dev Camp MD [address] [place] [address] [address] [place] [address] Referral ID Status Reason Start Date Expiration Date V isits Requested Visits Authorized [id number] Authorized 07/13/2023 07/12/2024 1 1 Additional Source [...] Shonna Sim , DO Family Provider Active Jj Garcia MD Attending Provider Active Disability Program Navigator Relationship Specialty Start Date End Date Gabriel Bello DO [address] [place] [address] PCP - General 05/24/99 Team Status: Inactive Member Role Status Dates Gabriel Bello DO Primary Care Provider Active Start: September 13, 2023 End: September 13, 2023 NON STAFF Attending Provider Active Start: [facility] 2023 End: September 13, 2023 Disability Program Navigator Relationship Specialty Start Date End Date Gabriel Bello DO [address] [place] [address] PCP - [employer] 05/24/20 Gabriel Bello DO [address] [place] [address] PCP - General Internal Medicine 11/10/22 Marianne Camp MD [address] [place] [address] [address] [place] [address] Referring Physician Cardiology 05/12/23 Disability Program Navigator Relationship Specialty Start Date End Date Gabriel Bello DO [address] [place] [address] PCP - [employer] 05/24/20 Gabriel Bello DO [address] [place] [address] PCP - General Internal Medicine 11/10/22 Marianne Camp MD [address] [place] [id number] Referring Physician Cardiology 05/12/23 Goals (unrecognized section [...] content) DATE CREATED AUTHOR 07/15/2022 [facility] DATE CREATED AUTHOR AUTHOR'S ORGANIZ ATION 07/15/2022 [employer] DATE CREATED AUTHOR AUTHOR'S ORGANIZ ATION 09/10/2022 [facility] DATE CREATED AUTHOR AUTHOR'S ORGANIZ ATION 01/12/2024 [facility] EPIC DATE CREATED AUTHOR AUTHOR'S ORGANIZ ATION 02/08/2024 [facility] DATE CREATED AUTHOR AUTHOR'S ORGANIZ ATION 02/25/2024 [facility] DATE CREATED AUTHOR AUTHOR'S ORGANIZ ATION 03/16/2024 [facility] REASON FOR VISIT (unrecogniz ed section and content) Reason Comments Annual Exam Specialty Diagnoses / Procedures Referred By Contac t Referred To Contact Diagnoses Paroxysmal atrial fibrillation (CMS/HCC) Procedures ECG 12 Lead Dev Camp MD [address] [facility] [address] [place] [address] Referral ID Status Reason Start Date Expiration Date V isits Requested Visits Authorized [id number] Authorized 07/13/2023 07/12/2024 1 1 FOR RECORDS [...] BE BASED ON THE PRIMARY CLINICAL RECORDS. [employer] provides no warranty or guarantee of the accuracy or completeness of information in this document.
--- NOTE | 2024-05-03 20:00 | ECG_ITS ---
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
--- NOTE | 2024-05-03 20:16 | ECG_ITS ---
The [facility] Test Date: 2024-05-03 Pat Name: DEV ALVAREZ Department: Room: - Gender: Male Access Representative: : 1940 Requested By: DIANE BARLOW Order Number: [id number] Reading MD: DIANE BARLOW Measurements Intervals [place] Rate: 71 P: 52 [place]: 158 QRS: 3 QRSD: 78 T: 36 QT: 412 QTc: 435 Interpretive Statements 1100 Sinus rhythm 1575 with frequent ventricular premature complexes in a pattern of bigeminy [address] depression [address] & Twave abnormality 9150 abnormal ECG Compared to ECG 01/10/2024 22:46:47 Ventricular premature complex(es) now present ST (T wave) deviation now present Electronically Signed On 05-04-2024 8:06:15 EST by DIANE BARLOW
--- NOTE | 2024-05-03 20:17 | ED_ITS ---
HPI - Dizziness General Chief Complaint: Dizziness Stated Complaint: high blood pressure Time Seen by Provider: 05/03/24 19:59 Source: patient Mode of arrival: walk-in Limitations: no limitations History of Present Illness HPI Narrative: This 83-year-old male presents for evaluation of elevated blood pressure. The patient has a history of hypertension and PVCs. He was recently seen by his innovation manager Dr. Khoury at [facility] with [facility] heart cardiology. Approximately 4 months ago he had his lisinopril and metoprolol increased. They doubled his metoprolol to 50 mg twice a day and double his lisinopril to 20 mg twice a day. He states he has been doing well for the most part with this change but does have episodes where his blood pressure still spikes and sometimes where it goes low. He states it typically spikes at night. He did take his blood pressure medications earlier this evening after feeling kind of dizzy. He did not pass out. He has no chest pain or shortness of breath. He has no abdominal pain or back pain. He does get injections for history of prostate cancer. He is not currently on any chemotherapy. The patient works out 3 times a week and is very active. He states nobody has ever talked to him about having a pacemaker. Related Data Home Medications ?Medication ?Instructions ?Recorded ?Confirmed rivaroxaban 20 mg tablet (Xarelto) 20 mg PO DAILY 09/29/23 05/03/24 atorvastatin 20 mg tablet 20 mg PO .once nightly 01/10/24 05/03/24 lisinopril 20 mg tablet 20 mg PO BID 01/10/24 05/03/24 metformin 500 mg tablet 500 mg PO .once nightly 01/10/24 05/03/24 metoprolol succinate 50 mg 50 mg PO Q12H 01/10/24 05/03/24 tablet,extended release 24 hr mirtazapine 15 mg tablet 15 mg PO .qhs 01/10/24 05/03/24 zsgezn-xuvkdrnq-wybkaiy 1 cap PO TIDWMEAL 05/03/24 05/03/24 24,000-76,000-120,000 unit capsule,delayed rel (Creon) Allergies Allergy/AdvReac Type Severity Reaction Status Date / Time Sulfa (Sulfonamide Allergy Severe Hives Verified 05/03/24 19:40 Antibiotics) Review of Systems ROS Status of ROS 10 or more systems reviewed and unremark able except as noted in history and below PFSH PFSH Social History Little interest or pleasure in doing things: not at all Feeling down, depressed, or hopeless: not at all Exam Narrative Exam Narrative: Vital signs and Nursing Notes reviewed: Patient is afebrile with a normal pulse, blood pressure is elevated greater than 200/100. At triage his blood pressure was 200/105, repeat blood pressure 210/116 General: Well-appearing elderly male, he is awake, alert, oriented, no acute distress, lying comfortably on the stretcher HEENT: Normocephalic atraumatic, mucous membranes are moist and pink, eyes are clear, normal conjunctiva, vision is grossly intact Neck: Supple, no meningeal signs, no JVD Chest: Lungs are clear to auscultation with good air entry, there is no wheezing rhonchi or rales appreciated no accessory muscle use, patient is speaking in complete sentences-no chest wall tenderness to palpation CVS: Regular rate and rhythm S1-S2, no murmurs rubs or gallops, pulses are brisk and equal bilaterally, occasional PVCs noted on the monitor. Palpable pulse is 60 bpm ABD: Soft, nondistended, nontender, no rebound guarding or rigidity, bowel sounds are normal, no pulsatile masses appreciated Extremities: Moving all extremities, no lower extremity tenderness or swelling noted, negative Homans' sign, pulses are brisk and equal bilaterally Skin: Normal in appearance without rash,pallor, petechiae or purpura Neuro: No focal deficits, speech is clear, there is no facial droop, he is ambulatory with a steady gait Constitutional Vital Signs, click to edit/add: Last Vital Signs Temp 98.5 F 05/03/24 19:43 Pulse 67 05/03/24 21:47 Resp 16 05/03/24 21:47 BP 170/74 H 05/03/24 21:47 Pulse Ox 97 05/03/24 21:47 O2 Del Method Room Air 05/03/24 21:47 Course Vital Signs Vital signs: Vital Signs Temperature 98.5 F 05/03/24 19:43 Pulse Rate 73 05/03/24 19:43 Respiratory Rate 14 05/03/24 19:43 Blood Pressure 200/105 H 05/03/24 19:43 Pulse Oximetry 97 05/03/24 19:43 Oxygen Delivery Method Room Air 05/03/24 19:43 Temperature 98.5 F 05/03/24 19:43 Pulse Rate 67 05/03/24 21:47 Respiratory Rate 16 05/03/24 21:47 Blood Pressure 170/74 H 05/03/24 21:47 Pulse Oximetry 97 05/03/24 21:47 Oxygen Delivery Method Room Air 05/03/24 21:47 MDM - Dizziness MDM Narrative Medical decision making narrative: This 83-year-old male with a history of hypertension and cardiac ectopy presents for evaluation of elevated blood pressure. He states he felt mildly dizzy at home and took his blood pressure and it was in the 200s over 100s. He did not have any chest pain shortness of breath, focal neurologic deficits, abdominal pain or back pain. His neuroexam was completely normal. He has recently had blood pressure adjustments in which his metoprolol was doubled and his lisinopril was doubled. He also recently had a stress test with Dr. Khoury at [facility]. He said he did well on his stress test. He has never been told that he needed a pacemaker. Upon arrival an EKG was performed that was a pattern of bigeminy. He was taken to room 6 and placed on the monitor. At that time the bigeminy appeared to have resolved. His blood pressure was markedly elevated in the 200s over 100s. An IV was placed and he was medicated with 10 mg of IV hydralazine which decreased his blood pressure minimally and then he was given 0.1 mg of clonidine. After the clonidine his blood pressure came down into the 170s over 70s. Repeat EKG after he was brought to room 6 showed a sinus rhythm without the ectopy. The patient states that this is not unusual for him. He states that he exercises 3 times a week and often has multiple PVCs during that time but once he relaxes and stops working out the PVCs resolved. He was given copies of his EKGs to share with his innovation manager as she may have not seen the bigeminy pattern in the past. A cardiac workup was ordered due to the elevated blood pressure and symptoms of dizziness. He has a normal white count and hemoglobin. Electrolytes are normal. Troponin is normal. The patient was feeling much better after the blood pressure medications. We discussed blood pressure management and I offered him a prescription of clonidine to use as needed if his blood pressure should, elevated greater than 170s or 80s again in the near future. I did however request that he discuss this medication with his family physician and innovation manager. He is in agreement with this plan. Medical Records Attestation: I reviewed the patient's medical records. Lab Data Attestation: I reviewed the patient's lab results. Labs: Lab Results 05/03/24 Range/Units 20:10 WBC 7.4 (4.0-11.0) 10^3/uL RBC 4.16 L (4.70-6.10) 10^6/uL Hgb 12.9 L (14.0-18.0) g/dL Hct 38.2 L (42.0-54.0) % MCV 91.8 (80.0-94.0) fL MCH 31.0 (25.9-34.0) pg MCHC 33.8 (29.9-35.2) g/dL RDW 13.2 (11.0-15.0) % Plt Count 192 (150-450) 10^3/uL MPV 10.5 (9.5-13.5) fL Neut % (Auto) 60.0 (43.0-75.0) % Lymph % (Auto) 26.5 (20.5-60.0) % [place] % (Auto) 8.2 (1.7-12.0) % Eos % (Auto) 3.8 (0.9-7.0) % Baso % (Auto) 1.1 (0.2-2.0) % Neut # (Auto) 4.5 (1.4-6.5) 10^3/uL Lymph # (Auto) 2.0 (1.2-3.8) 10^3/uL [place] # (Auto) 0.6 (0.3-0.8) 10^3/uL Eos # (Auto) 0.3 (0.0-0.7) 10^3/uL Baso # (Auto) 0.1 (0.0-0.1) 10^3/uL Abs Immat Gran (auto) 0.03 (0.00-0.03) 10^3/uL Imm/Tot Granulo (auto) 0.4 (0.0-0.5) % Sodium 143 (136-145) mmol/L Potassium 4.0 (3.5-5.1) mmol/L Chloride 108 H (98-107) mmol/L Carbon Dioxide 28.8 (21.0-32.0) mmol/L Anion Gap 10.2 BUN 15.0 (7.0-18.0) mg/dL Creatinine 1.18 (0.70-1.30) mg/dL Est GFR ( Amer) >60 (>=60 mL/min/1.73m^2) Est GFR (Non-Af Amer) 59 L (>=60 mL/min/1.73m^2) BUN/Creatinine Ratio 12.7 Glucose 181 H (74-106) mg/dL Calcium 8.5 (8.5-10.1) mg/dL Total Bilirubin 0.3 (0.2-1.0) mg/dL AST 13 L (15-37) U/L ALT 15 L (16-63) U/L Alkaline Phosphatase 61 (46-116) U/L Troponin I High Sens 30.1 (4.0-76.1) pg/mL Total Protein 6.5 (6.4-8.2) g/dL Albumin 3.4 (3.4-5.0) g/dL Globulin 3.1 g/dL Albumin/Globulin Ratio 1.1 ECG Data Attestation: I personally reviewed and interpreted this ECG as follows: (EKG #1 sinus rhythm with frequent PVCs at 70 bpm, normal axis, EKG #2 sinus rhythm at 63 bpm, normal axis, no PVCs noted) Discharge Plan Discharge Chief Complaint: Dizziness Clinical Impression: Hypertension, Bigeminy Patient Disposition: Home, Self-Care Time of Disposition Decision: 22:00 Condition: Good Prescriptions / Home Meds: No Action Xarelto 20 mg tablet 20 mg PO DAILY metformin 500 mg tablet 500 mg PO .once nightly atorvastatin 20 mg tablet 20 mg PO .once nightly metoprolol succinate 50 mg tablet extended release 24 hr 50 mg PO Q12H lisinopril 20 mg tablet 20 mg PO BID mirtazapine 15 mg tablet 15 mg PO .qhs Creon 24,000-76,000 -120,000 unit capsule,delayed release(DR/EC) 1 cap PO TIDWMEAL Print Language: Iranian Instructions: Hypertension (ED) Referrals: GABRIEL BELLO [Primary Care Provider] - 1 week
[2024-05-03 20:24] LABS: Basophils Absolute Auto 0.1 10^3/uL (0.0-0.1); Basophils Percent Auto 1.1 % (0.2-2.0); Eosinophils Absolute Auto 0.3 10^3/uL (0.0-0.7); Eosinophils Percent Auto 3.8 % (0.9-7.0); Hematocrit 38.2 % (42.0-54.0); Hemoglobin 12.9 g/dL (14.0-18.0); Immature Granulocytes Abs Auto 0.03 10^3/uL (0.00-0.03); Immature Granulocytes Pct Auto 0.4 % (0.0-0.5); Lymphocytes Percent Auto 26.5 % (20.5-60.0); Mean Corpuscular HGB Conc 33.8 g/dL (29.9-35.2); Mean Corpuscular Volume 91.8 fL (80.0-94.0); Mean Platelet Volume 10.5 fL (9.5-13.5); Monocytes Absolute Auto 0.6 10^3/uL (0.3-0.8); Monocytes Percent Auto 8.2 % (1.7-12.0); Neutrophils Absolute Auto 4.5 10^3/uL (1.4-6.5); Platelet Count 192 10^3/uL (150-450); Red Blood Count 4.16 10^6/uL (4.70-6.10); Red Cell Distribution Width 13.2 % (11.0-15.0); White Blood Count 7.4 10^3/uL (4.0-11.0)
[2024-05-03 20:29] VITALS: BP 210/116
[2024-05-03] MEDS: HYDRALAZINE HCL 20 MG/ML VIAL 10 MG IVP (20:29)
[2024-05-03 20:39] LABS: Alanine Aminotransferase 15 U/L (16-63); Albumin Globulin Ratio 1.1; Albumin Level 3.4 g/dL (3.4-5.0); Alkaline Phosphatase 61 U/L (46-116); Anion Gap 10.2; Aspartate Amino Transferase 13 U/L (15-37); BUN Creatinine Ratio 12.7; Bilirubin Total 0.3 mg/dL (0.2-1.0); Calcium 8.5 mg/dL (8.5-10.1); Carbon Dioxide 28.8 mmol/L (21.0-32.0); Chloride 108 mmol/L (98-107); Estimated GFR (African America >60 (>=60 mL/min/1.73m^2); Estimated GFR (Non-African Ame 59 (>=60 mL/min/1.73m^2); Globulin 3.1 g/dL; Glucose 181 mg/dL (74-106); Sodium 143 mmol/L (136-145); Total Protein 6.5 g/dL (6.4-8.2)
[2024-05-03 20:42] LABS: Troponin I High Sensitivity 30.1 pg/mL (4.0-76.1)
[2024-05-03 20:51] VITALS: BP 182/72
[2024-05-03] MEDS: CLONIDINE HCL 0.1 MG TABLET PO (20:51)
[2024-05-03 21:47] VITALS: BP 170/74; PULSE 67; O2SAT 97
== END 2024-05-03 22:18 | disposition home or self-care (01) ==
PROVIDERS: Emergency Provider Emergency Medicine; PCP Internal Medicine
DX: I10 Essential (primary) hypertension (principal); R00.8 Other abnormalities of heart beat; I49.3 Ventricular premature depolarization; C61 Malignant neoplasm of prostate; R42 Dizziness and giddiness
CPT/HCPCS: 36415; 80053; 84484; 85025; 93005; 96374; 99285; J0360

== ENCOUNTER 2024-05-31 07:41 | Outpatient (RCR) | payer MEDICARE, SELFPAY ==
[2024-05-31] MEDS: DENOSUMAB 120 MG/1.7 ML VIAL SQ (14:14)
== END 2024-06-02 08:00 | disposition home or self-care (01) ==
LOC: INF 07:41
PROVIDERS: PCP Internal Medicine
DX: C61 Malignant neoplasm of prostate (principal); C79.51 Secondary malignant neoplasm of bone
CPT/HCPCS: 96372; J0897

== ENCOUNTER 2024-06-26 07:44 | Outpatient (RCR) | payer MEDICARE, SELFPAY ==
[2024-06-26 14:14] VITALS: BP 155/93; PULSE 68; TEMP 36.4; O2SAT 96
[2024-06-26] MEDS: DENOSUMAB 120 MG/1.7 ML VIAL SQ (14:18)
== END 2024-06-26 14:47 | disposition home or self-care (01) ==
LOC: INF 07:44
PROVIDERS: PCP Internal Medicine
DX: C61 Malignant neoplasm of prostate (principal); C79.51 Secondary malignant neoplasm of bone
CPT/HCPCS: 96372; J0897

== ENCOUNTER 2024-07-06 07:21 | Outpatient (OUT) | payer MEDICARE, SELFPAY ==
--- OUTSIDE RECORDS SUMMARY | 2024-07-06 07:25 | XMS_ITS | CCD ---
Author Organization [facility] Care Team Providers Care Property Specialist Name Role Phone Nirav Bello Primary Care Provider [phone] Ryan Negron Attending Provider [phone] Nirav Bello Unavailable Unavailable Unavailable DO Nirav Bello Primary Care Provider DO Juan Ventura Attending Provider [phone] Dr. Nirav Bello Abhilash Primary Care Unavai armani Camp II, Dr. Epifanio Black Attending Unavailable Ryan GARCIA, Dr. Epifanio Black Referring Unavailable MISC, DR SHERIFF Attending [...] Unavailable ACE, DR RIOS Consulting Unavailable DR NIRAV BELLO Primary Care Unavailable Jj Garcia Unavailable DO Nirav Bello Primary Care Provider MD Jj Garcia Attending Provider [phone] Nirav Bello DO Primary Care Provider DO Nirav Bello Primary Care Provider NON STAFF Attending Provider Unavailable MAIA, MISSY Referring Unavailable KELTON BELLOREY A Primary Care Unavailable KHOURY, MISSY Referring Unavailable KELTON BELLOREY A Primary Care Unavailable Nirav Bello DO Unavailable Nirav Bello DO Primary Care Provider Marianne Camp MD Unavailable Nirav Bello Primary Care Unavailable Miller Donald Attending Unavailable Miller Donald Admitting Unavailable EPIFANIO CAMP Attending Unavailable NIRAV BELLO A Primary Care Unavailable RADHA KHOURYA Attending Unavailable NIRAV BELLO A Primary Care Unavailable KHOURY, MISSY Referring Unavailable ACEKELTON PEREZREY A Primary Care Unavailable KHOURY, MISSY Attending Unavailable KHOURY, MISSY Referring Unavailable KELTON BELLOREY A Primary Care Unavailable PUSHPA, LAURA A Attending Unavailable NIRAV BELLO A Attending Unavailable KELTON BELLOREY A Referring Unavailable KELTON BELLOREY A Referring Unavailable NIRAV BELLO A Attending Unavailable PETITTI, LAURA A Attending Unavailable NIRAV BELLO A Attending Unavailable KELTON BELLOREY A Attending Unavailable ACE NIRAV A Referring Unavailable PETANDREZI, LAURA A Attending Unavailable KELTON BELLOREY A Attending Unavailable KELTON BLELOREY A Referring Unavailable Unavailable Unavailable Unavailable Allergies Allergy Classification Reported Allergen(s) Allergy Type Date of Onset Reaction(s) Facility (4 sources) Sulfonamides (Antibiotic); Translations: [Sulfa Drugs] Allergy to drug (finding) [place] [id number] DO Work Phone: (14 sources) Sulfonamides (Antibiotic); Translations: [SULFA (SULFONAMIDE ANTIBIOTICS)] Allergy to substance 2 [facility] (1 source) Sulfonamides (Antibiotic) Drug allergy (disorder) [facility] Rep[facility] (14 sources) Substance with sulfonamide structure and antibacterial mechanism of action (substance) Drug allergy 4 [facility] (10 sources) abiraterone; Translations: [ABIRATERONE] Drug Allergy 4 Other [facility] Repository (12 sources) Sulfanilamide Allergy to substance 3 Unknown [facility] Medications Current Medications Medication Drug Class(es) Dates Sig (Normalized) Sig (Original) abiraterone acetate 250 mg oral tablet (2 sources) Cytochrome P450 17A1 Inhibitor take 4 tablets by mouth once daily abiraterone (Zytiga) 250 MG chemo tablet Take 4 tablets by mouth Daily. Swallow whole. Do not eat 2 hrs before or 1 hr after. Active amylase 926818 unt / lipase 59941 unt / protease 11555 unt delayed release oral capsule (20 sources) Start: 01-17-2024 Creon 47075-07276 units capsule Indications: Malignant neoplasm of prostate (CMS/HCC) , Exocrine pancreatic insufficiency (CMS/HCC) TAKE 1 CAPSULE IN THE MORNING, 1 CAPSULE AT NOON AND 1 CAPSULE IN THE EVENING WITH MEALS 300 capsule 1 01/17/2024 Active Start: 05-12-2023 pancrelipase, Axv-Dhgv-Jwmm, (Creon) 55753-55780 units capsule Indications: Malignant neoplasm of prostate (CMS/HCC) , Exocrine pancreatic insufficiency (CMS/HCC) Take 1 capsule by mouth in the morning and 1 capsule at noon and 1 capsule in the evening. Take with meals. 270 capsule 1 05/12/2023 Active Start: 11-17-2022 take 1 capsule by mo ut three times daily jqjgjh-rgndmfry-gvkozzx (Creon) 24,000-76,000 -120,000 unit capsule Take 1 capsule by mouth 3 times daily (morning, midday, late afternoon). 11/17/2022 Active Start: 11-17-2022 Creon 35674-94 [id number] UNIT 1 with each meal Orally daily for 30 days Oct, Active ascorbic acid 500 mg oral capsule (12 sources) Vitamin C take 1 capsule by mouth once daily ascorbic acid, vitamin C, 500 mg capsule Take 1 capsule by mouth once daily. Active atorvastatin 20 mg oral tablet (20 sources) HMG-CoA Reductase Inhibitor Start: atorvastatin (Lipitor) 20 MG tablet Indications: Mixed hyperlipidemia (CMS/HCC) TAKE 1 TABLET AT NIGHT 90 tablet 3 01/06/2024 Active Start: 12-05-2021 take 10 mg by mouth once daily at bedtime Atorvastatin Active 10 MG PO Daily at bedtime December 05, 2021 12:00am Start: 07-03-2020 End: 05-01-2025 take 0.5 tablet by mouth once daily atorvastatin (Lipitor) 20 mg tablet Indications: Mixed hyperlipidemia Take 0.5 tablets (10 mg) by mouth once daily. 45 tablet 1 05/01/2024 05/01/2025 Active Atorvastatin Andrea cium 20 MG Oral for 90 Days Active Bacillus coagulans / Inulin (1 source) End: 07-13-2023 take 1 capsule by mouth once daily BACILLUS COAGULANS-INULIN ORAL Take 1 capsule by mouth once daily. 0 07/13/2023 Discontinued (Therapy completed) calcitriol 0.0005 mg oral capsule (12 sources) Vitamin D3 Analog take 1 capsule by mouth in the morning calcitriol (Rocaltrol) 0.5 MCG capsule Take 0.5 mcg by mouth in the morning. Active cholecalciferol 0.05 mg oral tablet (15 sources) Vitamin D Start: 12-05-2021 take 1 tablet by mouth three times weekly Cholecalciferol (Vitamin D3) (Vitamin D3) 50 mcg (2,000 unit) Tablet Active 50 MCG PO 3 Times a week December 05, 2021 12:00am take 1 capsule by mouth once aristides ly cholecalciferol (Vitamin D-3) 25 MCG (1000 UT) capsule Take 1 capsule (25 mcg) by mouth once daily. Active cloNIDine hydrochloride 0.1 mg oral tablet (7 sources) Central alpha-2 Adrenergic Agonist Start: 05-22-2024 take 1 tablet by mouth twice daily as needed for hypertension cloNIDine (Catapres) 0.1 MG tablet Indications: Primary hypertension (CMS/HCC) , PAF (paroxysmal atrial fibrillation) (CMS/HCC) , Chest pain, unspecified type Take 1 tablet (0.1 mg) by mouth 2 (two) times a day as needed for high blood pressure 180 tablet 1 05/22/2024 Active Start: 05-10-2024 take 1 tablet by yifan th in the morning cloNIDine (Catapres) 0.1 MG tablet Indications: Primary hypertension (CMS/HCC) , PAF (paroxysmal atrial fibrillation) (CMS/HCC) , Chest pain, unspecified type Take 1 tablet (0.1 mg) by mouth in the morning and 1 tablet (0.1 mg) before bedtime. 180 tablet 1 05/10/2024 Active Start: 05-10-2024 take 1 tablet by yifan th in the morning cloNIDine (Catapres) 0.1 MG tablet Indications: Primary hypertension (CMS/HCC) , PAF (paroxysmal atrial fibrillation) (CMS/HCC) , Chest pain, unspecified type Take 1 tablet (0.1 mg) by mouth in the morning and 1 tablet (0.1 mg) before bedtime. 180 tablet 1 05/10/2024 Active Start: 05-04-2024 End: 05-10-2024 cloNIDine (Catapres) 0.1 MG tablet Take 0.1 mg by mouth if needed 05/04/2024 05/10/2024 Discontinued (Reorder) 1.7 ml denosumab 70 mg/ml injection (5 sources) RANK Ligand Inhibitor inject 120 mg by subcutaneous injection every 30 days denosumab (Xgeva) 120 MG/1.7ML injection Inject 120 mg under the skin every 30 (thirty) days Active fluorouracil 50 mg/ml topical cream (14 sources) Nucleoside Metabolic Inhibitor Start: 04-26-20 23 fluorouracil (Efudex) 5 % cream Indications: Actinic keratosis Apply to affected areas bid x 14 days 40 g 1 04/26/2023 Active Efudex 5 % 1 vlad lication Externally Twice a day Active fluticasone propionate 0.05 mg/actuat metered dose nasal spray (5 sources) Corticosteroid Start: 05-10-2024 End: 05-10-2025 take 2 spray(s) nasal route once daily fluticasone (Flonase) 50 MCG/ACT nasal spray Indications: Allergic sinusitis Administer 2 sprays into each nostril Daily Shake gently. Before first use, prime pump. After use, clean tip and replace cap. 16 g 5 05/10/2024 05/10/2025 Active lisinopril 20 mg oral tablet (20 sources) Angiotensin Converting Enzyme Inhibitor Start: 04-06-2024 [...] Daily 14 tablet 03/23/2024 Active Start: 02-11-2021 End: 05-01-2025 take 2 tablets by mouth once daily lisinopril 20 mg tablet Indications: Essential hypertension Take 2 tablets (40 mg) by mouth once daily. 180 tablet 1 05/01/2024 05/01/2025 Active Start: 02-11-2021 lisinopril 20 MG tablet Indications: Primary hypertension (CMS/HCC) TAKE 1 TABLET DAILY 90 tablet 3 09/03/2023 Active magnesium oxide 400 mg oral tablet (14 sources) Start: 01-13-2024 End: 01-12-2025 take 1 tablet by mouth in the morning magnesium oxide (Mag-Ox) 400 MG tablet Take 400 mg by mouth in the morning and 400 mg in the evening. 01/13/2024 01/12/2025 Active Start: 01-11-2024 End: 01-13-2024 take 1 tablet by mouth once daily magnesium oxide (Mag-Ox) 400 mg (241.3 mg magnesium) tablet Indications: Paroxysmal atrial fibrillation (Multi) Take 1 tablet (400 mg) by mouth once daily. 90 tablet 01/11/2024 01/13/2024 Discontinued metFORMIN hydrochloride 500 mg oral tablet (20 sources) Biguanide Start: 07-05-2020 metFORMIN (Glucophage) 500 MG tablet Indications: Type 2 diabetes mellitus with other specified complication, without long-term current use of insulin (CMS/HCC) TAKE 1 TABLET IN THE EVENING WITH A MEAL 90 tablet 3 09/01/2023 Active 24 hr metoprolol succinate 50 mg extended release oral tablet (20 sources) beta-Adrenergic Neeru Start: 01-13-2024 End: 05-01-2025 take 2 tablets by mouth once daily metoprolol succinate XL (Toprol-XL) 50 mg 24 hr tablet Indications: Paroxysmal atrial fibrillation (Multi) Take 2 tablets (100 mg) by mouth once daily. Do not crush or chew. 180 tablet 1 05/01/2024 05/01/2025 Active Start: 07-13-2023 take 1 tablet by yifan th every twenty-four hours in the morning metoprolol succinate XL (Toprol-XL) 50 MG 24 hr tablet Take 50 mg by mouth in the morning and 50 mg before bedtime. 07/13/2023 Active Start: 07-13-2023 End: 07-12-2024 take 1 tablet by mouth once daily metoprolol succinate XL (Toprol-XL) 50 MG 24 hr tablet Take 50 mg by mouth Daily 07/13/2023 Active Start: 02-24-2021 End: 07-13-2023 take 100 mg by mouth once daily in the morning Metoprolol Succinate Active 100 MG PO Every morning December 05, 2021 12:00am mirtazapine 15 mg oral tablet (20 sources) Start: 05-14-2021 mirtazapine (Remeron) 15 MG tablet Indications: Current mild episode of major depressive disorder without prior episode (HCC) (CMS/HCC) TAKE 1 TABLET AT BEDTIME 90 tablet 3 02/15/2024 Active polyethylene glycol 3350 810012 mg / potassium chloride 2970 mg / sodium bicarbonate 6740 mg / sodium chloride 5860 mg / sodium sulfate 54853 mg powder for oral solution (2 sources) Osmotic Laxative Start: 11-17-2022 take 236 g by mouth once Golytely 236 GM as directed Orally once for 1 days Oct, Active predniSONE 5 mg oral tablet (20 sources) Start: 11-05-2023 take 1 tablet by mouth once daily predniSONE (Deltasone) 5 MG tablet Take 5 mg by mouth Daily 11/05/2023 Active Start: 11-05-2023 End: 05-01-2024 take 0.5 tablet by mouth once daily predniSONE (Deltasone) 5 mg tablet Take 0.5 tablets (2.5 mg) by mouth once daily. 11/05/2023 05/01/2024 Discontinued (Therapy completed) rivaroxaban 20 mg oral tablet (20 sources) Factor Xa Inhibitor Start: 03-05-2021 End: 05-01-2025 take 1 tablet by mouth once daily rivaroxaban (Xarelto) 20 mg tablet Indications: Paroxysmal atrial fibrillation (Multi) Take 1 tablet (20 mg) by mouth once daily. 90 tablet 3 05/28/2023 05/27/2024 Active vit A/vit C/vit E/zinc/copper (ICAPS AREDS ORAL) (9 sources) vit A/vit C/vit E/zinc/copper (ICAPS AREDS ORAL) Take 1 tablet by mouth see administration instructions. Active vit A/vit C/vit E/zinc/copper (ICAPS AREDS ORAL) Take 1 tablet by mouth see administration instructions. 0 Active Vit C,W-Mt-Xlgos-Lutein-Zeax an (Preservision Areds-2) 250-90-40-1 mg Capsule (3 sources) Start: 12-05-2021 Vit C,Q-Qt-Xvngy-Lutein-Zeax an (Preservision Areds-2) 250-90-40-1 mg Capsule Active 1 TAB PO Every morning December 05, 2021 12:47pm Start: 12-05-2021 Vit C,E-Zn-Client Director rd-Yuesgu-Evnqky (Preservision Areds-2) 250-90-40-1 mg Capsule Active 1 TAB PO Every morning December 05, 2021 12:00am vitamin b12 1 mg oral tablet (11 sources) Vitamin B12 take 1 tablet by mouth once daily cyanocobalamin (Vitamin B-12) 1,000 mcg tablet Take 1 tablet (1,000 mcg) by mouth once daily. Active Completed/Discontinued Medications Medication Drug Class(es) Dates Sig (Normalized) Sig (Original) acetaminophen 325 mg / HYDROcodone bitartrate 5 mg oral tablet (2 sources) Opioid Agonist Start: 12-08-2021 End: 12-24-2022 take 1 tablet by mouth every eight hours Hydrocodone-Acetam inophen Discontinued 1 TAB PO Q8H 14 December 08, 2021 December 24, 2022 11:27am ascorbic acid 226 mg / beta carotene 57721 unt / cuprous oxide 0.8 mg / [...] 05, 2021 12:00am December 24, 2022 11:26am dicyclomine hydrochloride 10 mg oral capsule (7 sources) Anticholinergic Start: 11-13-2020 End: 01-13-2024 take 1 capsule by mouth once daily dicyclomine (Bentyl) 10 mg capsule Take 1 capsule (10 mg) by mouth once daily. 11/13/2020 01/13/2024 Discontinued (Therapy completed) Probiotic CAPS (2 sources) Probiotic CAPS TAKE 1 CAPSULE Daily Quantity: 0 Refills: 0 Ordered: 03-Jul-2021 DO Active Tc-99m tetrofosmin (Myoview) injection 10 millicurie (1 source) Start: 02-07-2024 End: 02-07-2024 10 millicurie, intravenous, Once in imaging, Starting on Wed02/07/24 at 0835, For 1 dose, Administer 45 to 90 minutes prior to imaging unless otherwise indicated. Tc-99m tetrofosmin (Myoview) injection 30 millicurie (1 source) Start: 02-07-2024 End: 02-07-2024 30 millicurie, intravenous, Once in imaging, Starting on Wed02/07/24 at 1009, For 1 dose, Administer 45 to 90 minutes prior to imaging unless otherwise indicated. Problems Active Problems Problem Classification Problem Date Documented Da te Episodic/Chronic Abdominal pain (1 source) Left lower quadrant abdominal tenderness; Translations: [LLQ ABDOMINAL TENDERNESS] Onset: 09-09-2022 Episodic Administrative/social admission (4 sources) Patient encounter status; Translations: [Person consulting for explanation of examination or test findings] Onset: 05-01-2024 05-01-2024 Episodic Cancer of prostate (20 sources) Malignant neoplasm of prostate; Translations: [Secondary malignant neoplasm of bone] Onset: 05-02-2015 Chronic Cardiac dysrhythmias (20 sources) Paroxysmal atrial fibrillation; Translations: [Atrial fibrillation] Onset: 09-29-2019 Chronic Chronic kidney disease (20 sources) Chronic kidney disease stage 3A ; Translations: [Stage 3a chronic kidney disease] Onset: 05-14-2021 11-03-2022 Chronic Chronic kidney disease (2 sources) Chronic kidney disease; Translations: [Chronic kidney disease, stage 3a (Multi)] Onset: 01-13-2024 Deficiency and other anemia (1 source) Anemia, unspecified; Translations: [ANEMIA UNSPECIFIED] Onset: 09-09-2022 Episodic Diabetes mellitus with complications (20 sources) Type 2 diabetes mellitus with other specified complication; Translations: [Type 2 diabetes mellitus] Onset: 05-10-2022 Chronic Diabetes mellitus without complication (16 sources) Diabetes mellitus; Translations: [Diabetes mellitus without mention of complication, type II or unspecified type, not stated as uncontrolled] Onset: 05-28-2023 05-28-2023 Chronic Disorders of lipid metabolism (20 sources) Hyperlipidemia; Translations: [Other and unspecified hyperlipidemia] Onset: 11-05-2017 07-13-2023 Chronic Diverticulosis and diverticulitis (16 sources) Diverticulosis of intestine, part unspecified, without perforation or abscess without bleeding; Translations: [Diverticular disease of colon] Onset: 09-09-2022 Chronic Essential hypertension (20 sources) Benign essential hypertension; Translations: [Benign essential hypertension] Onset: 05-02-2015 07-13-2023 Chronic Heart valve disorders (15 sources) Nonrheumatic mitral (valve) insufficiency; Translations: [Non-rheumatic mitral regurgitation ] Onset: 01-13-2024 Chronic Hypertension with complications and secondary hypertension (2 sources) Benign hypertensive renal disease; Translations: [Hypertensive chronic kidney disease with stage 5 chronic kidney disease or end stage renal disease] Onset: 05-01-2024 05-01-2024 Chronic Miscellaneous mental health disorders (2 sources) Acute insomnia; Translations: [Adjustment insomnia] Episodic Mood disorders (14 sources) Major depressive disorder, single episode, unspecified; Translations: [Depression] Onset: 05-06-2016 11-03-2022 Chronic Neoplasms of unspecified nature or uncertain behavior (2 sources) Neoplasm of skin; Translations: [Neoplasm of unspecified behavior of bone, soft tissue, and skin] 06-30-2024 Episodic Nonspecific chest pain (2 sources) Chest pain; Translations: [Chest pain, unspecified] 05-10-2024 Episodic Other aftercare (6 sources) Drug therapy finding; Translations: [Long-term (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 of anticoagulants] Episodic Other aftercare (10 sources) Long-term current use of anticoagulant; Translations: [assisted (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 of anticoagulants] Onset: 01-13-2024 05-01-2024 Episodic Other gastrointestinal disorders (14 sources) Irritable bowel syndrome; Translations: [Irritable bowel syndrome without diarrhea] Onset: 12-10-2015 2023 Chronic Other gastrointestinal disorders (1 source) Irritable bowel syndrome without diarrhea Chronic Other gastrointestinal disorders (2 sources) Change in bowel habit; Translations: [CHANGE IN BOWEL HABIT] Onset: 09-09-2022 Episodic Other gastrointestinal disorders (1 source) Other fecal abnormalities; Translations: [OTHER FECAL ABNORMALITIES] Onset: 09-09-2022 Episodic Other gastrointestinal disorders (2 sources) Altered bowel function; Translations: [Change in bowel habit] Episodic Other nervous system disorders (2 sources) Postoperative pain ; Translations: [Other acute postprocedural pain] 12-08-2021 Episodic Other non-epithelial cancer of skin (20 sources) 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; Translations: [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] Onset: 10-11-2022 10-11-2022 Episodic Other nutritional; endocrine; and metabolic disorders (2 sources) Fat pad syndrome; 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 Other nutritional; endocrine; and metabolic disorders (3 sources) Overweight; Translations: [Overweight] Episodic Other upper respiratory disease (7 sources) Sinusitis; Translations: [Allergic rhinitis, unspecified] Onset: 05-10-2024 05-10-2024 Chronic Residual codes; unclassified (5 sources) Body mass index 20-24 - normal; Translations: [Body Mass Index between 19-24, adult] Onset: 05-01-2024 05-01-2024 Episodic Residual codes; unclassified (2 sources) Body mass index (BMI) 23.0-23.9, adult; Translations: [Body mass index (BMI) 23.0-23.9, adult] Onset: 05-01-2024 Episodic Past or Other Problems Problem Classification Problem Date Documented Date Episodic/Chronic Deficiency and other anemia (14 sources) Anemia; Translations: [Anemia, unspecified] Onset: 11-04-2016 11-03-2022 Episodic Other aftercare (3 sources) 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; Translations: [OTH USP CURRENT DRUG THERAPY] Onset: 11-06-2021 Episodic Other aftercare (9 sources) Taking high risk medication; Translations: [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] Onset: 01-13-2024 01-13-2024 Episodic Other aftercare (2 sources) 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; Translations: [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] Onset: 01-13-2024 Episodic Other screening for suspected conditions (not mental disorders or infectious disease) (6 sources) Abnormal electrocardiogram [ECG] [EKG]; Translations: [Electrocardiogram abnormal] Onset: 01-13-2024 Episodic Pancreatic disorders (not diabetes) (15 sources) Other specified diseases of pancreas; Translations: [Exocrine pancreatic insufficiency] Onset: 05-12-2023 Episodic Screening and history of mental health and substance abuse codes (14 sources) Ex-smoker; Translations: [Personal history of nicotine dependence] Onset: 07-13-2023 07-13-2023 Episodic Unclassified (3 sources) Never smoked tobacco; Translations: [Never a smoker] Unclassified (9 sources) Onset: 07-13-2023 Resolved: 01-13-2024 07-13-2023 Results Test Name Value Interpretation Reference Range Facility No Panel Informationon 06-30 Complexity: Intermediate Final length (cm): 4 Reason for type of repair: allow closure of the large defect Undermining: edges undermined Undermining comment: The surrounding tissue was undermined until the skin edges could be approximated without undue tension. Any tissue redundancies were removed. Subcutaneous layers (deep stitches): Suture size: 4-0 and 3-0 Suture type comment: Biosyn Stitches: Buried horizontal mattress (Closure was performed in a layered fashion with subcutaneous tissue closed first using tension-bearing absorbable sutures to the level of the superficial fascia.) Fine/surface layer approximation (top stitches): Suture size: 4-0 Suture type comment: Surgipro Stitches: simple running Stitches comment: Epicuticular skin sutures were then placed with minimal tension. Suture removal (days): 14 Outcome: patient tolerated procedure well with no complications Post-procedure details: sterile dressing applied and wound care instructions given Post-procedure details comment: It was emphasized to the patient to contact the office for any signs of infection, uncontrollable bleeding, or complications. Dressing type: bandage [facility] Lesion length (cm): 1.2 Lesion width (cm): 1 Margin per side (cm): 0.4 Total excision diameter (cm): 2 Informed consent: discussed and consent obtained Informed consent comment: Risks and possible complications were discussed as noted on the consent form. The consent form was signed prior to the procedure. Timeout: patient name, date of , surgical site, and procedure verified Timeout comment: Patient and provider identified site. Site was marked and excision was drawn out. Photo was taken and shown to patient, patient verified this is the correct site. Procedure prep: Patient was prepped and draped in usual sterile fashion (The planned incision lines were drawn along relaxed skin tension lines, if possible, to minimize scarring and deformity of surrounding structures.) Prep type: Chlorhexidine Anesthesia: the lesion was anesthetized in a standard fashion Anesthesia comment: The local anesthetic was injected to create a field block at the site of the procedure. Anesthetic: 1% lidocaine w/ epinephrine 1-100,000 buffered w/ 8.4% NaHCO3 Instrument used: #15 blade Instrument used comment: Incisions were made as drawn, and the surrounding tissue was undermined until the skin edges could be approximated without undue tension. Any tissue redundancies were removed. Hemostasis achieved with: electrodesiccation Additional details: Amount of lidocaine used: 9.0 ml Estimated blood loss: <1.0 ml [facility] HbA1c (Bld) [Mass fraction]o n 05-10-2024 [facility] Laboratory - Hematology and Cell countson 05-10-2024 HbA1c (Bld) [Mass fraction] 7.6 % [facility] ALL CBC WITH AUTO DIFFon BASOPHILS ABSOLUTE AUTO 0.1 N [facility] Basophils/100 WBC (Bld) 1.2 % 0.2 - 2.0 % [facility] Eosinophils/100 WBC (Bld) 4.3 % 0.9 - 7.0 % [facility] Erythrocyte distribution width (RBC) [Ratio] 13 % 11.0 - 15.0 % [facility] Hematocrit (Bld) [Volume fraction] 38.4 % Low 42.0 - 54.0 % [facility] Hemoglobin (Bld) [Mass/Vol] 12.4 g/dL Low 14.0 - 18.0 g/dL [facility] IMMATURE GRANULOCYTES ABS AUTO 0.03 [facility] Immature granulocytes/100 WBC (Bld) 0.5 % 0.0 - 0.5 % [facility] Interpretation and review of laboratory results Abnormal [facility] LYMPHOCYTES ABSOLUTE AUTO 2.1 [facility] Lymphocytes/100 WBC (Bld) 32.7 % 20.5 - 60.0 % [facility] MCH (RBC) [Entitic mass] 30.1 pg 25.9 - 34.0 pg [facility] MCHC (RBC) [Mass/Vol] 32.3 g/dL 29.9 - 35.2 g/dL [facility] MCV (RBC) [Entitic vol] 93.2 fL 80.0 - 94.0 fL [facility] MONOCYTES ABSOLUTE AUTO 0.5 N [facility] Monocytes/100 WBC (Bld) 7 % 1.7 - 12.0 % [facility] NEUTROPHILS ABSOLUTE AUTO 3.5 [facility] Neutrophils/100 WBC (Bld) 54.3 % 43.0 - 75.0 % [facility] Platelet mean volume (Bld) [Entitic vol] 10.4 fL 9.5 - 13.5 fL [facility] TBH EO # 0.3 [facility] PLT 172 [facility] RBC 4.12 Low [facility] WBC 6.5 [facility] ALL CBC WITH AUTO DIFFon BASOPHILS ABSOLUTE AUTO 0.1 N [facility] Basophils/100 WBC (Bld) 1.2 % 0.2 - 2.0 % [facility] Eosinophils/100 WBC (Bld) 5.3 % 0.9 - 7.0 % [facility] Erythrocyte distribution width (RBC) [Ratio] 13.1 % 11.0 - 15.0 % [facility] Hematocrit (Bld) [Volume fraction] 38.3 % Low 42.0 - 54.0 % [facility] Hemoglobin (Bld) [Mass/Vol] 12.6 g/dL Low 14.0 - 18.0 g/dL [facility] IMMATURE GRANULOCYTES ABS AUTO 0.04 High [facility] Immature granulocytes/100 WBC (Bld) 0.5 % 0.0 - 0.5 % [facility] Interpretation and review of laboratory results Abnormal [facility] LYMPHOCYTES ABSOLUTE AUTO 2.2 [facility] Lymphocytes/100 WBC (Bld) 27.3 % 20.5 - 60.0 % [facility] MCH (RBC) [Entitic mass] 30.7 pg 25.9 - 34.0 pg [facility] MCHC (RBC) [Mass/Vol] 32.9 g/dL 29.9 - 35.2 g/dL [facility] MCV (RBC) [Entitic vol] 93.2 fL 80.0 - 94.0 fL [facility] MONOCYTES ABSOLUTE AUTO 0.6 N [facility] Monocytes/100 WBC (Bld) 7.3 % 1.7 - 12.0 % [facility] Healthcare NEUTROPHILS ABSOLUTE AUTO 4.8 [facility] Neutrophils/100 WBC (Bld) 58.4 % 43.0 - 75.0 % [facility] Platelet mean volume (Bld) [Entitic vol] 10.6 fL 9.5 - 13.5 fL [facility] TBH EO # 0.4 [facility] PLT 193 [facility] RBC 4.11 Low [facility] TB WBC 8.1 [facility] TRANSTHORACIC ECHO (TTE) COM PLETEon 02-21-2024 TRANSTHORACIC ECHO (TTE) COMPLETE [address], [address] [place] [address] TRANSTHORACIC ECHOCARDIOGRAM REPORT Patient Name: EPIFANIO Kim Physician: [id number] Marina Goldsmith MD Study Date: 02/21/2024 Ordering Provider: [id number] MISSY KHOURY MRN/PID: [id number] Fellow: Nurse: Date of /Age: 1 1940 / 83 years Connie Cleaner: Jyoti Gutiérrez RDCS, RVT Gender: M Additional Staff: Height: 180.34 cm Admit Date: Weight: 77.11 kg Admission Status: BSA / BMI: 1.97 m2 / 23.71 kg/m2 Department Location: [facility] Blood Pressure: 142 /84 mmHg Study Type: TRANSTHORACIC ECHO (TTE) COMPLETE Diagnosis/ICD: 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; Paroxysmal atrial fibrillation-I48.0 Indication: Diabetes, HTN, Hyperlipidemia, Murmur, Former Smoker, Prostate Cancer with Metastases, CKD-Stage III CPT Codes: Echo Complete w Full Doppler-[id number] Study Detail: The following Echo studies were [...] AoV Mean P.0 mmHg (1.7-11.5mmHg) LVOT Max Farheen: 0.90 m/s (<=1.1m/s) AoV VTI: 25.00 cm [...] 30mmHg) PULMONIC VALVE: Normal Ranges: PV Max Farheen: 0.6 m/s (0.6-0.9m/s) PV Max P.5 mmHg PIEDV: 2.08 m/s PADP: 20.3 mmHg [id number] Marina Goldsmith MD Electronically signed on 02/21/2024 at 2:06:09 PM Final [facility] US Heart TransthoracicOrdere d By: Marina Goldsmith on 02-21-2024 Aortic Valve Area by Continuity of Peak Velocity 4.33 cm2 [facility] Work Phone: Aortic Valve Area by Continuity of VTI 3.61 cm2 [facility] Work Phone: AV mn grad 2.0 mmHg [facility] Work Phone: AV pk grad 4.8 mmHg [facility] Work Phone: AV pk farheen 1.10 m/s [facility] Work Phone: LV A4C EF 68.1 [facility] Work Phone: LV EF 60 % [facility] Work Phone: LVIDd 4.95 cm [facility] Work Phone: LVOT diam 2.60 cm [facility] Work Phone: MV avg E/e' ratio 6.90 [facility] Work Phone: MV E/A ratio 0.58 [facility] Work Phone: RVSP 29.4 mmHg [facility] Work Phone: [facility] Work Phone: Heart Transthoracicon [address], [address] [place] [address] TRANSTHORACIC ECHOCARDIOGRAM REPORT Patient Name: EPIFANIO Kim Physician: [id number] Marina Goldsmith MD Study Date: 02/21/2024 Ordering Provider: [id number] MISSY KHOURY MRN/PID: [id number] Fellow: Nurse: Date of /Age: 1 1940 / 83 years Connie Cleaner: Jyoti Gutiérrez RDCS, RVT Gender: M Additional Staff: Height: 180.34 cm Admit Date: Weight: 77.11 kg Admission Status: BSA / BMI: 1.97 m2 / 23.71 kg/m2 Department Location: [facility] Blood Pressure: 142 /84 mmHg Study Type: TRANSTHORACIC ECHO (TTE) COMPLETE Diagnosis/ICD: 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; Paroxysmal atrial fibrillation-I48.0 Indication: Diabetes, HTN, Hyperlipidemia, Murmur, Former Smoker, Prostate Cancer with Metastases, CKD-Stage III CPT Codes: Echo Complete w Full Doppler-[id number] Study Detail: The following Echo studies were [...] AoV Mean P.0 mmHg (1.7-11.5mmHg) LVOT Max Farheen: 0.90 m/s (<=1.1m/s) AoV VTI: 25.00 cm (18-25cm) LVOT VTI: 17.00 c (more content not included)... Marina Shaffer MD - 02/21/[address], [address], [place] [address] TRANSTHORACIC ECHOCARDIOGRAM REPORT Patient Name: EPIFANIO WALSH Reading Physician: [id number] Marina Goldsmith MD Study Date: 02/21/2024 Ordering Provider: [id number] MISSY KHOURY MRN/PID: [id number] Fellow: Nurse: Date of /Age: 1 1940 / 83 years Connie Cleaner: Jyoti Gutiérrez RDCS, RVT Gender: M Additional Staff: Height: 180.34 cm Admit Date: Weight: 77.11 kg Admission Status: BSA / BMI: 1.97 m2 / 23.71 kg/m2 Department Location: [facility] Blood Pressure: 142 /84 mmHg Study Type: TRANSTHORACIC ECHO (TTE) COMPLETE Diagnosis/ICD: 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; Paroxysmal atrial fibrillation-I48.0 Indication: Diabetes, HTN, Hyperlipidemia, Murmur, Former Smoker, Prostate Cancer with Metastases, CKD-Stage III CPT Codes: Echo Complete w Full Doppler-[id number] Study Detail: The following Echo studies were [...] AoV Mean P.0 mmHg (1.7-11.5mmHg) LVOT Max Farheen: 0.90 m/s (<=1.1m/s) AoV VTI: 25.00 cm [...] 30mmHg) PULMONIC VALVE: Normal Ranges: PV Max Farheen: 0.6 m/s (0.6-0.9m/s) PV Max P.5 mmHg PIEDV: 2.08 m/s PADP: 20.3 mmHg [id number] Marina Goldsmith MD Electronically signed on 02/21/2024 at 2:06:09 PM Final [facility] Work Phone: KL Heart Perfusion W stress and W radionuclide Aaron 02-07-2024 Normal exercise Myoview cardiac perfusion stress test. No evidence of ischemia or myocardial infarction by perfusion imaging. Normal left ventricular systolic function, ejection fraction 67%. No exercise provoked significant ischemic ECG changes or chest pain symptoms. When compared to a study from 2009, no significant interval changes are seen. Signed by: Clarissa Sanchez 02/07/2024 4:47 PM Dictation workstation: [id number] Interpreted By: Clarissa Sanchez, Lora Elaine STUDY: MYOCARDIAL PERFUSION STRESS TEST WITH EXERCISE Performing facility: [facility], [address] [place] [address], [address], [place] [address] [facility] Provider: Missy Khoury MD, FACC PCP: Dr. Trang Bello Supervising provider: Marina Goldsmith MD INDICATION: Abnormal EKG; PVC Murmur HISTORY: Gender: M; Age: 83 y/o ; Height: HT 180.3 cm cm; Weight: WT 77.111 kg kg. Abnormal EKG; High Cholesterol; Diabetes; HTN; Arrhythmias; A-fib Quit smoking 34 years ago. COMPARISON: Previous nuclear testing completed at [facility]. ACCESSION NUMBER(S): [id number] ORDERING CLINICIAN: MISSY KHOURY TECHNIQUE: ONE DAY protocol. Stress injection: [...] There was no evidence of attenuation artifact. [facility] MM[facility] Clarissa Sanchez M D - 02/07/2024 Interpreted By: Clarissa Sanchez and Giannuzzi Michael STUDY: MYOCARDIAL PERFUSION STRESS TEST WITH EXERCISE Performing facility: [facility], [address] [place] [address], [address], [place] [address] [facility] Provider: Missy Khoury MD, FACC PCP: Dr. Trang Bello Supervising provider: Marina Goldsmith MD INDICATION: Abnormal EKG; PVC Murmur HISTORY: Gender: M; Age: 83 y/o ; Height: HT 180.3 cm cm; Weight: WT 77.111 kg kg. Abnormal EKG; High Cholesterol; Diabetes; HTN; Arrhythmias; A-fib Quit smoking 34 years ago. COMPARISON: Previous nuclear testing completed [id number] at [facility]. ACCESSION NUMBER(S): [id number] ORDERING CLINICIAN: MISSY KHOURY TECHNIQUE: ONE DAY protocol. Stress injection: [...] Clarissa Sanchez 02/07/2024 4:47 PM Dictation workstation: [id number] [facility] Work Phone: Radiology Study observation (narrative) [facility] Work Phone: NM Heart Perfusion W stress and W radionuclide IVOrdered By: Clarissa Sanchez on 02-07-2024 [facility] Work Phone: NUCLEAR STRESS TESTon 2023 NUCLEAR STRESS TEST Interpreted By: Clarissa Sanchez and Giannuzzi Michael STUDY: MYOCARDIAL PERFUSION STRESS TEST WITH EXERCISE Performing facility: [facility], [address] [place] [address], [address], [address] Provider: Missy Khoury MD, FACC PCP: Dr. Trang Bello Supervising provider: Marina Goldsmith MD INDICATION: Abnormal EKG; PVC Murmur HISTORY: Gender: M; Age: 83 y/o ; Height: HT 180.3 cm cm; Weight: WT 77.111 kg kg. Abnormal EKG; High Cholesterol; Diabetes; HTN; Arrhythmias; A-fib Quit smoking 34 years ago. COMPARISON: Previous nuclear testing completed [id number] at [facility]. ACCESSION NUMBER(S): [id number] ORDERING CLINICIAN: MISSY KHOURY TECHNIQUE: ONE DAY protocol. Stress injection: [...] Clarissa Sanchez 02/07/2024 4:47 PM Dictation workstation: [id number] [facility] Comment on above: Order Comment: Start with exercise, may switch to alfonso ALL BASIC METABOLIC PANELon 02-03-2024 Anion gap [Moles/Vol] 11.7 mmol/L [facility] Calcium [Mass/Vol] 8.3 mg/dL Low 8.5 - 10. 1 mg/dL [facility] Chloride [Moles/Vol] 107 mmol/L 98 - 10 7 mmol/L [facility] CO2 [Moles/Vol] 28.3 mmol/L 21.0 - 32.0 mmol/L [facility] Creatinine [Mass/Vol] 1.11 mg/dL 0.70 - 1.30 mg/dL [facility] GFR/1.73 sq M.predicted CKD-EPI (S/P/Bld) [Vol rate/Area] >60 60 - PINF [facility] Glucose [Mass/Vol] 164 mg/dL High 74 - 106 mg/dL [facility] Interpretation and review of laboratory results Abnormal [facility] Potassium [Moles/Vol] 4.0 mmol/L 3.5 - 5.1 mmol/L [facility] Sodium [Moles/Vol] 143 mmol/L 136 - 145 mmol/L [facility] TBH EGFR-NON AF TAIWANESE >60 60 - PINF [facility] Urea nitrogen [Mass/Vol] 16.0 mg/dL 7.0 - 18.0 mg/dL [facility] Urea nitrogen/Creatinine [Mass ratio] 14.4 mg/mg [facility] PET psma initial tx sb-[facility] 09-13-2023 PET psma initial tx sb-[facility] [place] [address] Nuclear Medicine Report Signed Patient: Epifanio Walsh MR#: [id number] : 1940 Acct:[id number] Age/Sex: 83 / M ADM Date: 09/13/23 Loc: PE Room: Type: [facility] Attending Dr: SYLWIA STAFF Copies to: NON [...] Jordan Story M.D.09/13/2023 3:20 PM Dictation Location: [place] [address] Transcribed By: [facility] 09/13/23 1520 Dictated By: Jordan Story II, MD 09/13/23 1515 Signed By: 09/13/23 1520 Normal [facility] ECG 12 Leadon 07-13-2023 Sinus rhythm with frequent PVCs Otherwise normal EKG QTc 444 ms [facility] Work Phone: C reactive protein [Mass/vol ume] in Serum or PlasmaOrdered By: Jj Garcia on 11-26-2022 CRP [Mass/Vol] < 0.5 mg/dL 0.0-0.5 [facility] Creatinine [Mass/volume] in Serum or PlasmaOrdered By: Nirav Bello on 11-26-2022 Creatinine [Mass/Vol] 1.55 mg/dL 0.70-1.30 [facility] Erythrocyte sedimentation ra te by Photometric methodOrdered By: Jj Garcia on 11-26-2022 ESR Photometric method (Bld) [Velocity] 18 mm/hr 0-19 [facility] No Panel InformationOrdered By: Nirav Bello on 11-26-2022 Estimated GFR (CKD-EPI) 43.863 mL/Min [facility] Creatinine Clearance (Chem N/A [facility] Thyrotropin [Units/volume] i n Serum or PlasmaOrdered By: Jj Garcia on 11-26-2022 TSH Qn 1.23 m[IU]/L 0.45-5.33 [facility] Urea nitrogen [Mass/volume] in Serum or PlasmaOrdered By: Nirav Bello on 11-26-2022 Urea nitrogen [Mass/Vol] 31 mg/dL 7-25 [facility] PANCREATIC ELASTASE FECALon 09-08-2022 Pancreatic Elastase, Fecal 86 ug Elast./g Critically low >200 [facility] Comment on above: Result Comment: Re sults verified by repeat testing Severe Pancreatic Insufficiency: <100 Moderate Pancreatic Insufficiency: 100 - 200 Normal: >200 Performed By: #### L IPID, TSH, CMP #### [facility] [address] [place] [address] [address] Leesa Urbina CELIAC ANTIBODIES PROFILEon 09-04-2022 Deamidated Gliadin Abs, IgA 8 units Normal 0-19 [facility] Comment on above: Result Comment: Nega tive 0 - 19 Weak Positive 20 - 30 Moderate to Strong Positive >30 Performed By: #### C ELIACP #### [facility] [address] [place] [address] [address] Leesa Urbina Deamidated Gliadin Abs, IgG 4 units Normal 0-19 [facility] Comment on above: Result Comment: Nega tive 0 - 19 Weak Positive 20 - 30 Moderate to Strong Positive >30 Performed By: #### C ELIACP #### [facility] [address] [place] [address] Dr. Leesa Urbina Endomysial Antibody IgA Negative Normal Negative [facility] Comment on above: Performed By: #### C ELIACP #### [facility] [address] [place] [address] Dr. Leesa Urbina Immunoglobulin A, Qn, Serum 143 mg/dL Normal 61-437 [facility] Comment on above: Performed By: #### C ELIACP #### [facility] [address] [place] [address] Dr. Leesa Urbina t-Transglutaminase (tTG) IgA <2 Normal 0-3 [facility] Comment on above: Result Comment: Nega tive 0 - 3 Weak Positive 4 - 10 Positive >10 . Tissue Transglutaminase (tTG) has been identified as the endomysial antigen. Studies have demonstr- ated that endomysial IgA antibodies have over 99% specificity for gluten sensitive enteropathy. Performed By: #### C ELIACP #### [facility] [address] [place] [address] Dr. Leesa Urbina t-Transglutaminase (tTG) IgG 6 U/mL Critically high 0-5 [facility] Comment on above: Result Comment: Nega tive 0 - 5 Weak Positive 6 - 9 Positive >9 Performed By: #### C ELIACP #### [facility] [address] [place] [address] Dr. Leesa Urbina CBC AUTO DIFFon 09-03-2022 BASO # 0.1 103/ul Normal 0.0-0.1 [facility] Comment on above: Performed By: #### L IPID, TSH, CMP #### [facility] [address] [place] [address] Dr. Leesa Urbina Basophils/100 WBC (Bld) 1.1 % Normal 0.2-2.0 [facility] Comment on above: Performed By: #### L IPID, TSH, CMP #### [facility] [address] [place] [address] Dr. Leesa Urbina EO # 0.6 103/ul Normal 0.0-0.7 [facility] Comment on above: Performed By: #### L IPID, TSH, CMP #### [facility] [address] [place] [address] Dr. Leesa Urbina Eosinophils/100 WBC (Bld) 7.9 % Critically high 0.9-7.0 [facility] Comment on above: Performed By: #### L IPID, TSH, CMP #### [facility] [address] [place] [address] Dr. Leesa Urbina Erythrocyte distribution width (RBC) [Ratio] 13.6 % Normal 11.0-15.0 [facility] Comment on above: Performed By: #### L IPID, TSH, CMP #### [facility] [address] [place] [address] Dr. Leesa Urbina Hematocrit (Bld) [Volume fraction] 34.4 % Critically low 42.0-54.0 [facility] Comment on above: Performed By: #### L IPID, TSH, CMP #### [facility] [address] [place] [address] Dr. Leesa Urbina Hemoglobin (Bld) [Mass/Vol] 11.4 g/dL Critically low 14.0-18.0 [facility] Comment on above: Performed By: #### L IPID, TSH, CMP #### [facility] [address] [place] [address] Dr. Leesa Urbina IG # 0.02 10e3/ul Normal 0.00-0.03 [facility] Comment on above: Performed By: #### L IPID, TSH, CMP #### [facility] [address] [place] [address] Dr. Leesa Urbina IG % 0.3 % Normal 0.0-0.5 [facility] Comment on above: Performed By: #### L IPID, TSH, CMP #### [facility] [address] [place] [address] Dr. Leesa Urbina LYMPH # 2.1 103/ul Normal 1.2-3.8 [facility] Comment on above: Performed By: #### L IPID, TSH, CMP #### [facility] [address] [place] [address] Dr. Leesa Urbina Lymphocytes/100 WBC (Bld) 28.1 % Normal 20.5-60.0 [facility] Comment on above: Performed By: #### L IPID, TSH, CMP #### [facility] [address] [place] [address] Dr. Leesa Urbina MANUAL DIFF REQ NO Normal [facility] Comment on above: Performed By: #### L IPID, TSH, CMP #### [facility] [address] [place] [address] Dr. Leesa Urbina MCH (RBC) [Entitic mass] 31.1 pg Normal 25.9-34.0 [facility] Comment on above: Performed By: #### L IPID, TSH, CMP #### [facility] [address] [place] [address] Dr. Leesa Urbina MCHC (RBC) [Mass/Vol] 33.1 g/dL Normal 29.9-35.2 [facility] Comment on above: Performed By: #### L IPID, TSH, CMP #### [facility] [address] [place] [address] Dr. Leesa Urbina MCV (RBC) [Entitic vol] 93.7 fL Normal 80.0-94.0 [facility] Comment on above: Performed By: #### L IPID, TSH, CMP #### [facility] [address] [place] [address] Dr. Leesa Urbina MONO # 0.4 103/ul Normal 0.3-0.8 [facility] Comment on above: Performed By: #### L IPID, TSH, CMP #### [facility] [address] [place] [address] Dr. Leesa Urbina Monocytes/100 WBC (Bld) 6.0 % Normal 1.7-12.0 [facility] Comment on above: Performed By: #### L IPID, TSH, CMP #### [facility] [address] [place] [address] [address] Leesa Urbina NEUT # 4.2 103/ul Normal 1.4-6.5 [facility] Comment on above: Performed By: #### L IPID, TSH, CMP #### [facility] [address] [place] [address] [address] Leesa Urbina Neutrophils/100 WBC (Bld) 56.6 % Normal 43.0-75.0 [facility] Comment on above: Performed By: #### L IPID, TSH, CMP #### [facility] [address] [place] [address] [address] Leesa Urbina Platelet mean volume (Bld) [Entitic vol] 10.1 fL Normal 9.5-13.5 [facility] Comment on above: Performed By: #### L IPID, TSH, CMP #### [facility] [address] [place] [address] [address] Leesa Urbina PLT 195 103/ul Normal 150-450 [facility] Comment on above: Performed By: #### L IPID, TSH, CMP #### [facility] [address] [place] [address] [address] eLesa Urbina RBC 3.67 106/ul Critically low 4.70-6.10 [facility] Comment on above: Performed By: #### L IPID, TSH, CMP #### [facility] [address] [place] [address] [address] Leesa Urbina WBC 7.3 103/ul Normal 4.0-11.0 [facility] Comment on above: Performed By: #### L IPID, TSH, CMP #### [facility] [address] [place] [address] [address] Leesa Urbina FERRITINon 09-03-2022 Ferritin [Mass/Vol] 44.0 ng/mL Normal 26.0-388.0 [facility] Comment on above: Performed By: #### F ERR, FETIBC #### [facility] [address] [place] [address] [address] Leesa Urbina IRON AND TIBCon 09-03-2022 % SATURATION 23.5 % Normal [facility] Comment on above: Performed By: #### F ERR, FETIBC #### [facility] [address] [place], [place] [address] Dr. Leesa Urbina Iron [Mass/Vol] 69.0 ug/dL Normal 65.0-175.0 [facility] Comment on above: Performed By: #### F ERR, FETIBC #### [facility] [address] [place], [place] [address] Dr. Leesa Urbina TIBC DIRECT 294.0 ug/dL Normal 250.0-450.0 [facility] Comment on above: Performed By: #### F ERR, FETIBC #### [facility] [address] [place], [place] [address] Dr. Leesa Urbina Office Visit (Cardiology)on 07-14-2022 Follow-up visit Diagnoses/Problems Assessed Anticoagulated (V58.61) (Z79.01) Benign essential hypertension (401.1) (I10) Hyperlipidemia (272.4) (E78.5) Paroxysmal atrial fibrillation (427.31) (I48.0) Diabetes mellitus (250.00) (E11.9) Body mass index (BMI) of 24.0 to 24.9 in adult (V85.1) (Z68.24) Never a smoker Orders SocHx: Never a smoker Tobacco Use Screening; Status:Complete; Done: [id number] Patient Instructions Please bring all medicines, vitamins, and herbal supplements with you when you come to the office. Prescriptions will not be filled unless you are compliant with your follow up appointments or have a follow up appointment scheduled as per instruction of your physician. Refills should be requested at the time of your visit. Follow up in 1 year. Chief Complaint EPIFANIO WALSH is being seen for an annual [...] negative for complaint. Vitals Vital Signs Recorded: [id number] 09:08AM Heart Rate68, L Radial [id number], LUE, Sitting Whwcleriu64, LUE, Sitting Height5 ft 11 in Uykfvh242 lb BMI Jviuhskibx99.13 kg/m2 BSA Calculated1.98 Tobacco Useb) No PHQ-2 [...] time . Signatures Electronically signed by : Epifanio Camp MD; Jul 14 2022 10:20AM EST (Author) Normal [facility] Tobacco Screening.on 023 Adult depression screening assessment No [facility] y 250 DO Work Phone: Fall risk assessment a) No falls within the last year formerly [facility] y 250 DO Work Phone: Tobacco use status CP b) No [facility] y [facility] DO Work Phone: CBC AUTO DIFFon 05-06-2022 BASO # 0.1 103/ul Normal 0.0-0.1 [facility] Comment on above: Performed By: #### C BC #### [facility] [address] [place] [address] [address] Leesa Urbina Basophils/100 WBC (Bld) 1.4 % Normal 0.2-2.0 [facility] Comment on above: Performed By: #### C BC #### [facility] [address] [place], [place] [address] Dr. Leesa Urbina EO # 0.4 103/ul Normal 0.0-0.7 [facility] Comment on above: Performed By: #### C BC #### [facility] [address] [place] [address] Dr. Leesa Urbina Eosinophils/100 WBC (Bld) 5.4 % Normal 0.9-7.0 [facility] Comment on above: Performed By: #### C BC #### [facility] [address] [place] [address] Dr. Leesa Urbina Erythrocyte distribution width (RBC) [Ratio] 13.3 % Normal 11.0-15.0 [facility] Comment on above: Performed By: #### C BC #### [facility] [address] [place] [address] Dr. Leesa Urbina Hematocrit (Bld) [Volume fraction] 35.8 % Critically low 42.0-54.0 [facility] Comment on above: Performed By: #### C BC #### [facility] [address] [place] [address] Dr. Leesa Urbina Hemoglobin (Bld) [Mass/Vol] 12.0 g/dL Critically low 14.0-18.0 [facility] Comment on above: Performed By: #### C BC #### [facility] [address] [place] [address] Dr. Leesa Urbina IG # 0.01 10e3/ul Normal 0.00-0.03 [facility] Comment on above: Performed By: #### C BC #### [facility] [address] [place] [address] Dr. Leesa Urbina IG % 0.2 % Normal 0.0-0.5 [facility] Comment on above: Performed By: #### C BC #### [facility] [address] [place] [address] Dr. Leesa Urbina LYMPH # 1.7 103/ul Normal 1.2-3.8 [facility] Comment on above: Performed By: #### C BC #### [facility] [address] [place] [address] Dr. Leesa Urbina Lymphocytes/100 WBC (Bld) 26.1 % Normal 20.5-60.0 [facility] Comment on above: Performed By: #### C BC #### [facility] [address] [place] [address] Dr. Leesa Urbina MANUAL DIFF REQ NO Normal [facility] Comment on above: Performed By: #### C BC #### [facility] [address] [place] [address] Dr. Leesa Urbina MCH (RBC) [Entitic mass] 31.0 pg Normal 25.9-34.0 [facility] Comment on above: Performed By: #### C BC #### [facility] [address] [place] [address] Dr. Leesa Urbina MCHC (RBC) [Mass/Vol] 33.5 g/dL Normal 29.9-35.2 [facility] Comment on above: Performed By: #### C BC #### [facility] [address] [place] [address] Dr. Leesa Urbina MCV (RBC) [Entitic vol] 92.5 fL Normal 80.0-94.0 [facility] Comment on above: Performed By: #### C BC #### [facility] [address] [place] [address] Dr. Leesa Urbina MONO # 0.4 103/ul Normal 0.3-0.8 [facility] Comment on above: Performed By: #### C BC #### [facility] [address] [place] [address] Dr. Leesa Urbina Monocytes/100 WBC (Bld) 6.5 % Normal 1.7-12.0 [facility] Comment on above: Performed By: #### C BC #### [facility] [address] [place] [address] Dr. Leesa Urbina NEUT # 4.0 103/ul Normal 1.4-6.5 [facility] Comment on above: Performed By: #### C BC #### [facility] [address] [place] [address] Dr. Leesa Urbina Neutrophils/100 WBC (Bld) 60.4 % Normal 43.0-75.0 [facility] Comment on above: Performed By: #### C BC #### [facility] [address] [address] [address] Leesa Urbina Platelet mean volume (Bld) [Entitic vol] 10.6 fL Normal 9.5-13.5 [facility] Comment on above: Performed By: #### C BC #### [facility] [address] [address] [address] Leesa Urbina PLT 185 103/ul Normal 150-450 [facility] Comment on above: Performed By: #### C BC #### [facility] [address] [address] [address] Leesa Urbina RBC 3.87 106/ul Critically low 4.70-6.10 [facility] Comment on above: Performed By: #### C BC #### [facility] [address] [address] [address] Leesa Urbina WBC 6.6 103/ul Normal 4.0-11.0 [facility] Comment on above: Performed By: #### C BC #### [facility] [address] [address] [address] Leesa Urbina GLYCOHEMOGLOBIN A1Con 2021 ADA RECOMMENDATION SEE BELOW Normal [facility] Comment on above: Result Comment: ADA RECOMMENDED LIMIT 4.0 - 6.0 ADA THERAPEUTIC TARGET < 7.0 ACTION SUGGESTED > 7.0 Performed By: #### A 1C #### [facility] [address] [address] [address] Leesa Urbina Glucose [Mass/Vol] 151 mg/dL Normal [facility] Comment on above: Performed By: #### A 1C #### [facility] [address] [address] [address] Leesa Urbina HbA1c (Bld) [Mass fraction] 6.9 % Critically high 4.5-6.2 [facility] Comment on above: Performed By: #### A 1C #### [facility] [address] [place] [address] Dr. Leesa Urbina LIPID PROFILEon 05-06-2022 CHOL-HDL RATIO NORM SEE BELOW Normal [facility] Comment on above: Result Comment: 3.3 - 4.4 LOW RISK 4.4 - 7.1 AVERAGE RISK 7.1 - 11.0 MODERATE RISK >11.0 HIGH RISK Performed By: #### L IPID, TSH, CMP #### [facility] [address] [address] [address] Leesa Urbina Cholesterol [Mass/Vol] 136 mg/dL Normal <=200 [facility] Comment on above: Performed By: #### L IPID, TSH, CMP #### [facility] [address] [place] [address] Dr. Leesa Urbina Cholesterol in HDL [Mass/Vol] 62 mg/dL Critically high 40-60 [facility] Comment on above: Performed By: #### L IPID, TSH, CMP #### [facility] [address] [place] [address] Dr. Leesa Urbina Cholesterol in LDL [Mass/Vol] 53.0 mg/dL Normal [facility] Comment on above: Performed By: #### L IPID, TSH, CMP #### [facility] [address] [place] [address] Dr. Leesa Urbina Cholesterol.total/Kandy sterol in HDL [Mass ratio] 2.2 {ratio} Normal [facility] Comment on above: Performed By: #### L IPID, TSH, CMP #### [facility] [address] [place] [address] Dr. Leesa Urbina HDL NORMAL > or = 60 mg/dl - LO W CARDIOVASCULAR RISK <40 mg/dl - HIGH CARDIOVASCULAR RISK Normal [facility] Comment on above: Performed By: #### L IPID, TSH, CMP #### [facility] [address] [place] [address] Dr. Leesa Urbina LDL CALC NORMAL SEE BELOW Normal [facility] Comment on above: Result Comment: <100 mg/dl OPTIMAL 100 - 129 mg/dl NEAR OR ABOVE OPTIMAL 130 - 159 mg/dl BORDERLINE HIGH 160 - 189 mg/dl HIGH >190 mg/dl VERY HIGH Performed By: #### L IPID, TSH, CMP #### [facility] [address] [address] [address] Leesa Urbina Triglyceride [Mass/Vol] 105 mg/dL Normal <=[address] [facility] Comment on above: Performed By: #### L IPID, TSH, CMP #### [facility] [address] [address] [address] Leesa Urbina VLDL CALC 21.0 mg/dL Normal [facility] Comment on above: Performed By: #### L IPID, TSH, CMP #### [facility] [address] [address] [address] Leesa Urbina PROF 14(COMP METB)on 022 Albumin [Mass/Vol] 3.4 g/dL Normal 3.4-5.0 [facility] Comment on above: Performed By: #### L IPID, TSH, CMP #### [facility] [address] [place] [address] Dr. Leesa Urbina Albumin/Globulin [Mass ratio] 1.1 {ratio} Normal [facility] Comment on above: Performed By: #### L IPID, TSH, CMP #### [facility] [address] [address] [address] Leesa Urbina ALP [Catalytic activity/Vol] 77 U/L Normal 46-116 [facility] Comment on above: Performed By: #### L IPID, TSH, CMP #### [facility] [address] [place] [address] Dr. Leesa Urbina ALT [Catalytic activity/Vol] 12 U/L Critically low 16-63 [facility] Comment on above: Performed By: #### L IPID, TSH, CMP #### [facility] [address] [address] [address] Leesa Urbina Anion gap [Moles/Vol] 12.7 mmol/L Normal [facility] Comment on above: Performed By: #### L IPID, TSH, CMP #### [facility] [address] [place] [address] Dr. Leesa Urbina AST [Catalytic activity/Vol] 19 U/L Normal 15-37 [facility] Comment on above: Performed By: #### L IPID, TSH, CMP #### [facility] [address] [address] [address] Leesa Urbina Bilirubin [Mass/Vol] 0.4 mg/dL Normal 0.2-1.0 [facility] Comment on above: Performed By: #### L IPID, TSH, CMP #### [facility] [address] [address] [address] Leesa Urbina Calcium [Mass/Vol] 8.5 mg/dL Normal 8.5-10.1 [facility] Comment on above: Performed By: #### L IPID, TSH, CMP #### [facility] [address] [place] [address] Dr. Leesa Urbina Chloride [Moles/Vol] 107 mmol/L Normal 98-107 [facility] Comment on above: Performed By: #### L IPID, TSH, CMP #### [facility] [address] [place] [address] Dr. Leesa Urbina CO2 [Moles/Vol] 27.4 mmol/L Normal 21.0-32.0 [facility] Comment on above: Performed By: #### L IPID, TSH, CMP #### [facility] [address] [place] [address] Dr. Leesa Urbina Creatinine [Mass/Vol] 1.06 mg/dL Normal 0.70-1.30 [facility] Comment on above: Performed By: #### L IPID, TSH, CMP #### [facility] [address] [place] [address] Dr. Leesa Urbina EGFR-AF TAIWANESE >60 Normal >=60 [facility] Comment on above: Performed By: #### L IPID, TSH, CMP #### [facility] [address] [place] [address] Dr. Leesa Urbina EGFR-NON AF TAIWANESE >60 Normal >=60 [facility] Comment on above: Performed By: #### L IPID, TSH, CMP #### [facility] [address] [place] [address] Dr. Leesa Urbina Globulin (S) [Mass/Vol] 3.1 g/dL Normal [facility] Comment on above: Performed By: #### L IPID, TSH, CMP #### [facility] [address] [address] [address] Leesa Urbina Glucose [Mass/Vol] 171 mg/dL Critically high 74-[address] [facility] Comment on above: Performed By: #### L IPID, TSH, CMP #### [facility] [address] [address] [address] Leesa Urbina Potassium [Moles/Vol] 4.1 mmol/L Normal 3.5-5.1 [facility] Comment on above: Performed By: #### L IPID, TSH, CMP #### [facility] [address] [address] [address] Leesa Urbina Protein [Mass/Vol] 6.5 g/dL Normal 6.4-8.2 [facility] Comment on above: Performed By: #### L IPID, TSH, CMP #### [facility] [address] [place] [address] Dr. Leesa Urbina Sodium [Moles/Vol] 143 mmol/L Normal 136-145 [facility] Comment on above: Performed By: #### L IPID, TSH, CMP #### [facility] [address] [place] [address] Dr. Leesa Urbina Urea nitrogen [Mass/Vol] 24.0 mg/dL Critically high 7.0-18.0 [facility] Comment on above: Performed By: #### L IPID, TSH, CMP #### [facility] [address] [place] [address] Dr. Leesa Urbina Urea nitrogen/Creatinine [Mass ratio] 22.6 mg/mg Normal [facility] Comment on above: Performed By: #### L IPID, TSH, CMP #### [facility] [address] [place] [address] Dr. Leesa Urbina Basophils Auto (Bld) [#/Vol] Ordered By: Juan Ventura on 12-05-2021 Basophils (Bld) [#/Vol] 0.1 10*3/uL 0.0-0.2 [facility] Basophils/100 WBC Auto (Bld) Ordered By: Juan Ventura on 12-05-2021 Basophils/100 WBC (Bld) 0.9 % F [facility] Blood hemoglobin measurement (mass/volume)Ordered By: Juan Ventura on 12-05-2021 Hemoglobin (Bld) [Mass/Vol] 12.4 g/dL 13.0-17.0 [facility] Blood leukocytes automated c ount (number/volume)Ordered By: Juan Ventura on 12-05-2021 WBC (Bld) [#/Vol] 7.0 10*3/uL 4.5-11.0 [facility] COVID-19 Positive/NegativeOr dered By: Juan Ventura on 12-05-2021 SARS-CoV-2 (COVID-19) N gene RENETTA+probe Ql (Resp) Negative Negative [facility] Comment on above: Testing for SARS-CoV -2 by RT-PCR This test was developed and its performance characteristics determined by [employer]) and validated at the [facility]. This test has not been FDA cleared [...] on 12-05-2021 Creatinine [Mass/Vol] 1.28 mg/dL 0.64-1.27 [facility] Eosinophils Auto (Bld) [#/Vo l]Ordered By: Juan Ventura on 12-05-2021 Eosinophils (Bld) [#/Vol] 0.1 10*3/uL 0.0-0.45 [facility] Eosinophils/100 WBC Auto (Bl d)Ordered By: Juan Ventura on 12-05-2021 Eosinophils/100 WBC (Bld) 2.1 % [facility] Erythrocyte distribution wid th Auto (RBC) [Ratio]Ordered By: Juan Ventura on 12-05-2021 Erythrocyte distribution width (RBC) [Ratio] 14.6 % 12.0-14.8 [facility] Estimated glomerular filtrat ion rate (GFR) non- AmericanOrdered By: Juan Ventura on 12-05-2021 GFR/1.73 sq M.predicted among non-blacks MDRD (S/P/Bld) [Vol rate/Area] 54 mL/Min [facility] Hematocrit Auto (Bld) [Volum e fraction]Ordered By: Juan Ventura on 12-05-2021 Hematocrit (Bld) [Volume fraction] 37.3 % 38.8-50.0 [facility] Laboratory - Hematology and Cell countsOrdered By: Juan Ventura on 12-05-2021 Nucleated RBC/100 WBC (Bld) [Ratio] 0.0 % 0-0.5 [facility] Lymphocytes Auto (Bld) [#/Vo l]Ordered By: Juan Ventura on 12-05-2021 Lymphocytes (Bld) [#/Vol] 1.4 10*3/uL 1.00-4.8 [facility] Lymphocytes/100 WBC Auto (Bl d)Ordered By: Juan Ventura on 12-05-2021 Lymphocytes/100 WBC (Bld) 19.8 % [facility] MCH Auto (RBC) [Entitic mass ]Ordered By: Juan Ventura on 12-05-2021 MCH (RBC) [Entitic mass] 30.8 pg 27.5-35.2 [facility] MCHC Auto (RBC) [Mass/Vol]Or dered By: Juan Ventura on 12-05-2021 MCHC (RBC) [Mass/Vol] 33.1 g/dL 32.5-35.6 [facility] MCV Auto (RBC) [Entitic vol] Ordered By: Juan Ventura on 12-05-2021 MCV (RBC) [Entitic vol] 93.1 fL 83.5-101 F [facility] Monocytes Auto (Bld) [#/Vol] Ordered By: Juan Ventura on 12-05-2021 Monocytes (Bld) [#/Vol] 0.5 10*3/uL 0.0-0.8 [facility] Monocytes/100 WBC Auto (Bld) Ordered By: Juan Ventura on 12-05-2021 Monocytes/100 WBC (Bld) 7.3 % F [facility] Neutrophils Auto (Bld) [#/Vo l]Ordered By: Juan Ventura on 12-05-2021 Neutrophils (Bld) [#/Vol] 4.9 10*3/uL 1.8-7.7 [facility] Neutrophils/100 WBC Auto (Bl d)Ordered By: Juan Ventura on 12-05-2021 Neutrophils/100 WBC (Bld) 69.9 % [facility] No Panel InformationOrdered By: Juan Ventura on 12-05-2021 Estimated GFR () > 60 mL/Min [facility] Comment on above: GFR estimated refere nce range: According to KDOQI guidelines, <60 ml/min/1.73m2 is sufficient to diagnose a patient with chronic kidney disease. Pharmacy Creatinine Clearance (Chem N/A [facility] Platelet mean volume Auto (B ld) [Entitic vol]Ordered By: Juan Ventura on 12-05-2021 Platelet mean volume (Bld) [Entitic vol] 8.9 fL 6.6-10.1 [facility] Platelets Auto (Bld) [#/Vol] Ordered By: Juan Ventura on 12-05-2021 Platelets (Bld) [#/Vol] 194 10*3/uL 150-450 [facility] RBC Auto (Bld) [#/Vol]Ordere d By: Juan Ventura on 12-05-2021 RBC (Bld) [#/Vol] 4.00 10*6/uL 3.90-5.60 [facility] Serum or plasma calcium fco urement (mass/volume)Ordered By: Juan Ventura on 12-05-2021 Calcium [Mass/Vol] 9.2 mg/dL 8.2-10.2 [facility] Serum or plasma chloride daniel surement (moles/volume)Ordered By: Juan Ventura on 12-05-2021 Chloride [Moles/Vol] 107 mmol/L 95-114 [facility] Serum or plasma glucose fco urement (mass/volume)Ordered By: Juan Ventura on 12-05-2021 Glucose [Mass/Vol] 117 mg/dL 70-100 [facility] Comment on above: ADA recommended refe rence range Random Glucose Reference Range is dependent on time and content of last meal. Glucose of more than 200 mg/dL in a nonstressed, ambulatory subject supports the diagnosis of Diabetes Mellitus. Serum or plasma potassium me asurement (moles/volume)Ordered By: Juan Ventura on 12-05-2021 Potassium [Moles/Vol] 4.6 mmol/L 3.5-5.1 [facility] Serum or plasma sodium measu rement (moles/volume)Ordered By: Juan Ventura on 12-05-2021 Sodium [Moles/Vol] 141 mmol/L 136-146 [facility] Serum or plasma total carbon dioxide measurement (moles/volume)Ordered By: Juan Ventura on 12-05-2021 CO2 [Moles/Vol] 26.2 mmol/L 22.0-30.0 [facility] Serum or plasma urea nitroge n measurement (mass/volume)Ordered By: Juan Ventura on 12-05-2021 Urea nitrogen [Mass/Vol] 23 mg/dL 9-23 [facility] CBC AUTO DIFFon 11-05-2021 BASO # 0.1 103/ul Normal 0.0-0.1 [facility] Comment on above: Performed By: #### C BC #### [facility] [address] [address] [address] Leesa Urbina Basophils/100 WBC (Bld) 0.8 % Normal 0.2-2.0 [facility] Comment on above: Performed By: #### C BC #### [facility] [address] [place] [address] Dr. Leesa Urbina EO # 0.4 103/ul Normal 0.0-0.7 [facility] Comment on above: Performed By: #### C BC #### [facility] [address] [place] [address] Dr. Leesa Urbina Eosinophils/100 WBC (Bld) 5.6 % Normal 0.9-7.0 [facility] Comment on above: Performed By: #### C BC #### [facility] [address] [place] [address] Dr. Leesa Urbina Erythrocyte distribution width (RBC) [Ratio] 13.4 % Normal 11.0-15.0 [facility] Comment on above: Performed By: #### C BC #### [facility] [address] [place] [address] Dr. Leesa Urbina Hematocrit (Bld) [Volume fraction] 36.1 % Critically low 42.0-54.0 [facility] Comment on above: Performed By: #### C BC #### [facility] [address] [place] [address] Dr. Leesa Urbina Hemoglobin (Bld) [Mass/Vol] 11.8 g/dL Critically low 14.0-18.0 [facility] Comment on above: Performed By: #### C BC #### [facility] [address] [place] [address] Dr. Leesa Urbina IG # 0.02 10e3/ul Normal 0.00-0.03 [facility] Comment on above: Performed By: #### C BC #### [facility] [address] [place] [address] Dr. Leesa Urbina IG % 0.3 % Normal 0.0-0.5 [facility] Comment on above: Performed By: #### C BC #### [facility] [address] [place] [address] Dr. Leesa Urbina LYMPH # 1.8 103/ul Normal 1.2-3.8 [facility] Comment on above: Performed By: #### C BC #### [facility] [address] [place] [address] Dr. Leesa Urbina Lymphocytes/100 WBC (Bld) 28.4 % Normal 20.5-60.0 [facility] Comment on above: Performed By: #### C BC #### [facility] [address] [address] [address] Leesa Urbina MANUAL DIFF REQ NO Normal [facility] Comment on above: Performed By: #### C BC #### [facility] [address] [place] [address] Dr. Leesa Urbina MCH (RBC) [Entitic mass] 30.7 pg Normal 25.9-34.0 [facility] Comment on above: Performed By: #### C BC #### [facility] [address] [place] [address] Dr. Leesa Urbina MCHC (RBC) [Mass/Vol] 32.7 g/dL Normal 29.9-35.2 [facility] Comment on above: Performed By: #### C BC #### [facility] [address] [place] [address] Dr. Leesa Urbina MCV (RBC) [Entitic vol] 94.0 fL Normal 80.0-94.0 [facility] Comment on above: Performed By: #### C BC #### [facility] [address] [place] [address] Dr. Leesa Urbina MONO # 0.5 103/ul Normal 0.3-0.8 [facility] Comment on above: Performed By: #### C BC #### [facility] [address] [place] [address] Dr. Leesa Urbina Monocytes/100 WBC (Bld) 8.1 % Normal 1.7-12.0 [facility] Comment on above: Performed By: #### C BC #### [facility] [address] [place] [address] Dr. Leesa Urbina NEUT # 3.5 103/ul Normal 1.4-6.5 [facility] Comment on above: Performed By: #### C BC #### [facility] [address] [address] [address] Leesa Urbina Neutrophils/100 WBC (Bld) 56.8 % Normal 43.0-75.0 [facility] Comment on above: Performed By: #### C BC #### [facility] [address] [address] [address] Leesa Urbina Platelet mean volume (Bld) [Entitic vol] 10.3 fL Normal 9.5-13.5 [facility] Comment on above: Performed By: #### C BC #### [facility] [address] [address] [address] Leesa Urbina PLT 179 103/ul Normal 150-450 [facility] Comment on above: Performed By: #### C BC #### [facility] [address] [place] [address] Dr. Leesa Urbina RBC 3.84 106/ul Critically low 4.70-6.10 [facility] Comment on above: Performed By: #### C BC #### [facility] [address] [place] [address] Dr. Leesa Urbina WBC 6.2 103/ul Normal 4.0-11.0 [facility] Comment on above: Performed By: #### C BC #### [facility] [address] [place] [address] Dr. Leesa Urbina GLYCOHEMOGLOBIN A1Con 2021 ADA RECOMMENDATION SEE BELOW Normal [facility] Comment on above: Result Comment: ADA RECOMMENDED LIMIT 4.0 - 6.0 ADA THERAPEUTIC TARGET < 7.0 ACTION SUGGESTED > 7.0 Performed By: #### L IPID, TSH, CMP #### [facility] [address] [address] [address] Leesa Urbina Glucose [Mass/Vol] 151 mg/dL Normal [facility] Comment on above: Performed By: #### L IPID, TSH, CMP #### [facility] [address] [address] [address] Leesa Urbina HbA1c (Bld) [Mass fraction] 6.9 % Critically high 4.5-6.2 [facility] Comment on above: Performed By: #### L IPID, TSH, CMP #### [facility] [address] [address] [address] Leesa Urbina LIPID PROFILEon 11-05-2021 CHOL-HDL RATIO NORM SEE BELOW Normal [facility] Comment on above: Result Comment: 3.3 - 4.4 LOW RISK 4.4 - 7.1 AVERAGE RISK 7.1 - 11.0 MODERATE RISK >11.0 HIGH RISK Performed By: #### L IPID, TSH, CMP #### [facility] [address] [address] [address] Leesa Urbina Cholesterol [Mass/Vol] 150 mg/dL Normal <=200 Th [facility] Comment on above: Performed By: #### L IPID, TSH, CMP #### [facility] [address] [address] [address] Leesa Urbina Cholesterol in HDL [Mass/Vol] 60 mg/dL Normal 40-60 [facility] Comment on above: Performed By: #### L IPID, TSH, CMP #### [facility] [address] [address] [address] Leesa Urbina Cholesterol in LDL [Mass/Vol] 70.8 mg/dL Normal [facility] Comment on above: Performed By: #### L IPID, TSH, CMP #### [facility] [address] [address] [address] Leesa Urbina Cholesterol.total/Kandy sterol in HDL [Mass ratio] 2.5 {ratio} Normal [facility] Comment on above: Performed By: #### L IPID, TSH, CMP #### [facility] [address] [address] [address] Leesa Urbina HDL NORMAL > or = 60 mg/dl - LO W CARDIOVASCULAR RISK <40 mg/dl - HIGH CARDIOVASCULAR RISK Normal [facility] Comment on above: Performed By: #### L IPID, TSH, CMP #### [facility] [address] [address] [address] Leesa Urbina LDL CALC NORMAL SEE BELOW Normal [facility] Comment on above: Result Comment: <100 mg/dl OPTIMAL 100 - 129 mg/dl NEAR OR ABOVE OPTIMAL 130 - 159 mg/dl BORDERLINE HIGH 160 - 189 mg/dl HIGH >190 mg/dl VERY HIGH Performed By: #### L IPID, TSH, CMP #### [facility] [address] [address] [address] Leesa Ubrina Triglyceride [Mass/Vol] 96 mg/dL Normal <=[address] [facility] Comment on above: Performed By: #### L IPID, TSH, CMP #### [facility] [address] [address] [address] Leesa Urbina VLDL CALC 19.2 mg/dL Normal [facility] Comment on above: Performed By: #### L IPID, TSH, CMP #### [facility] [address] [address] [address] Leesa Urbina MICROALB CREAT RATIO RANDOMo n 11-05-2021 mALB <1.3 Normal <=30.0 [facility] Comment on above: Performed By: #### L IPID, TSH, CMP #### [facility] [address] [address] [address] Leesa Urbina MALB CR RATIO 11.4 mg/g Normal 0.0-29.9 [facility] Comment on above: Performed By: #### L IPID, TSH, CMP #### [facility] [address] [address] [address] Leesa Urbina MALB CR RATIO RANGE SEE BELOW Normal [facility] Comment on above: Result Comment: NO M ICROALBUMINURIA 0-29 MG/G CLINICAL MICROALBUMINURIA 30-300 MG/G MACROALBUMINURIA >300 MG/G Performed By: #### L IPID, TSH, CMP #### [facility] [address] [address] [address] Leesa Urbina URINE CREAT 114.03 mg/dL Normal 20.00-300.00 [facility] Comment on above: Performed By: #### L IPID, TSH, CMP #### [facility] [address] [address] [address] Leesa Urbina PROF 14(COMP METB)on 022 Albumin [Mass/Vol] 2.3 g/dL Critically low 3.4-5.0 [facility] Comment on above: Performed By: #### L IPID, TSH, CMP #### [facility] [address] [address] [address] Leesa Urbina Albumin/Globulin [Mass ratio] 0.5 {ratio} Normal [facility] Comment on above: Performed By: #### L IPID, TSH, CMP #### [facility] [address] [address] [address] Leesa Urbina ALP [Catalytic activity/Vol] 77 U/L Normal 46-116 [facility] Comment on above: Performed By: #### L IPID, TSH, CMP #### [facility] [address] [place] [address] Dr. Leesa Urbina ALT [Catalytic activity/Vol] 16 U/L Normal 16-63 [facility] Comment on above: Performed By: #### L IPID, TSH, CMP #### [facility] [address] [address] [address] Leesa Urbina Anion gap [Moles/Vol] 13.8 mmol/L Normal [facility] Comment on above: Performed By: #### L IPID, TSH, CMP #### [facility] [address] [place] [address] Dr. Leesa Urbina AST [Catalytic activity/Vol] 15 U/L Normal 15-37 [facility] Comment on above: Performed By: #### L IPID, TSH, CMP #### [facility] [address] [address] [address] Leesa Urbina Bilirubin [Mass/Vol] 0.5 mg/dL Normal 0.2-1.0 [facility] Comment on above: Performed By: #### L IPID, TSH, CMP #### [facility] [address] [place] [address] Dr. Leesa Urbina Calcium [Mass/Vol] 8.7 mg/dL Normal 8.5-10.1 [facility] Comment on above: Performed By: #### L IPID, TSH, CMP #### [facility] [address] [address] [address] Leesa Urbina Chloride [Moles/Vol] 107 mmol/L Normal 98-107 [facility] Comment on above: Performed By: #### L IPID, TSH, CMP #### [facility] [address] [address] [address] Leesa Urbina CO2 [Moles/Vol] 26.2 mmol/L Normal 21.0-32.0 [facility] Comment on above: Performed By: #### L IPID, TSH, CMP #### [facility] [address] [address] [address] Leesa Urbina Creatinine [Mass/Vol] 1.25 mg/dL Normal 0.70-1.30 [facility] Comment on above: Performed By: #### L IPID, TSH, CMP #### [facility] [address] [place] [address] Dr. Leesa Urbina EGFR-AF TAIWANESE >60 Normal >=60 [facility] Comment on above: Performed By: #### L IPID, TSH, CMP #### [facility] [address] [address] [address] Leesa Urbina EGFR-NON AF TAIWANESE 55 mL/min/1.73m2 Critically low >=60 [facility] Comment on above: Performed By: #### L IPID, TSH, CMP #### [facility] [address] [place] [address] Dr. Leesa Urbina Globulin (S) [Mass/Vol] 4.3 g/dL Normal [facility] Comment on above: Performed By: #### L IPID, TSH, CMP #### [facility] [address] [address] [address] Leesa Urbina Glucose [Mass/Vol] 137 mg/dL Critically high 74-106 [facility] Comment on above: Performed By: #### L IPID, TSH, CMP #### [facility] [address] [address] [address] Leesa Urbina Potassium [Moles/Vol] 4.0 mmol/L Normal 3.5-5.1 [facility] Comment on above: Performed By: #### L IPID, TSH, CMP #### [facility] [address] [address] [address] Leesa Urbina Protein [Mass/Vol] 6.6 g/dL Normal 6.4-8.2 [facility] Comment on above: Performed By: #### L IPID, TSH, CMP #### [facility] [address] [address] [address] Leesa Urbina Sodium [Moles/Vol] 143 mmol/L Normal 136-145 [facility] Comment on above: Performed By: #### L IPID, TSH, CMP #### [facility] [address] [address] [address] Leesa Urbina Urea nitrogen [Mass/Vol] 24.0 mg/dL Critically high 7.0-18.0 [facility] Comment on above: Performed By: #### L IPID, TSH, CMP #### [facility] [address] [address] [address] Leesa Urbina Urea nitrogen/Creatinine [Mass ratio] 19.2 mg/mg Normal [facility] Comment on above: Performed By: #### L IPID, TSH, CMP #### [facility] [address] [place] [address] Dr. Leesa Urbina TSHon 11-05-2021 TSH 0.996 uIU/mL Normal 0.358-3.740 [facility] Comment on above: Performed By: #### L IPID, TSH, CMP #### [facility] [address] [place] [address] Dr. Leesa Urbina Tobacco Screening.on 022 Adult depression screening assessment No [facility] DO Work Phone: Fall risk assessment a) No falls within the last year formerly [facility] DO Work Phone: Tobacco use status [facility] b) No [facility] DO Work Phone: Vital Signs Date Time Vital Sign Value Performing Clinician Facility 05-10-2024 09:57-0500 Body height 175.3 cm Niravclaire Bello DO Work Phone: [facility] 05-10-2024 09:57-0500 Body mass index (BMI) [Ratio] 24.81 kg/m2 Niravclaire Bello DO Work Phone: [facility] 05-10-2024 09:57-0500 Body weight 76.2 kg Nirav Ace Work Phone: [facility] 05-10-2024 09:57-0500 Diastolic blood pressure 66 mm[Hg] Nirav Bello Work Phone: [facility] 05-10-2024 09:57-0500 Heart rate 72 /min Nirav Bello Work Phone: [facility] 05-10-2024 09:57-0500 SaO2% (BldA) [Mass fraction] 97 % Nirav Ace DO Work Phone: [facility] 05-10-2024 09:57-0500 Systolic blood pressure 136 mm[Hg] Nirav Bello DO Work Phone: [facility] 05-01-2024 14:07-0500 Diastolic blood pressure 94 mm[Hg] Missy Khoury MD Work Phone: [facility] 05-01-2024 14:07-0500 Systolic blood pressure 174 mm[Hg] Missy Khoury MD Work Phone: [facility] 05-01-2024 13:39-0500 Body height 180.3 cm Missy Khoury MD Work Phone: [facility] 05-01-2024 13:39-0500 Body mass index (BMI) [Ratio] 23.99 kg/m2 Missy Khoury MD Work Phone: [facility] 05-01-2024 13:39-0500 Body weight 78.02 kg Missy Khoury MD Work Phone: [facility] 05-01-2024 13:39-0500 Heart rate 48 /min Missy Khoury MD Work Phone: [facility] 02-21-2024 07:52-0400 Body height 180.[address] 02-21-2024 07:52-0400 Body mass index (BMI) [Ratio] 23.71 kg/m2 [place] 2 [facility] 02-21-2024 07:52-0400 Body weight 77.11 kg [place] 2 [facility] 02-21-2024 07:52-0400 Diastolic blood pressure 84 mm[Hg] [address] 02-21-2024 07:52-0400 Systolic blood pressure 142 mm[Hg] [address] 02-07-2024 09:44-0400 Diastolic blood pressure 86 mm[Hg] [address] 02-07-2024 09:44-0400 Heart rate 66 /min [address] 02-07-2024 09:44-0400 Systolic blood pressure 138 mm[Hg] [address] 01-13-2024 16:15-0400 Diastolic blood pressure 100 mm[Hg] Missy Khoury MD Work Phone: [facility] 01-13-2024 16:15-0400 Systolic blood pressure 162 mm[Hg] Missy Khoury MD Work Phone: [facility] 01-13-2024 15:24-0400 Body height 180.3 cm Missy Khoury MD Work Phone: [facility] 01-13-2024 15:24-0400 Body mass index (BMI) [Ratio] 23.71 kg/m2 Missy Khoury MD Work Phone: [facility] 01-13-2024 15:24-0400 Body weight 77.11 kg Missy Khoury MD Work Phone: [facility] 01-13-2024 15:24-0400 Heart rate 72 /min Missy Khoury MD Work Phone: [facility] 01-11-2024 09:54-0400 Body height 175.3 cm Nirav Bello DO Work Phone: [facility] 01-11-2024 09:54-0400 Body mass index (BMI) [Ratio] 24.22 kg/m2 Niravclaire Bello DO Work Phone: [facility] 01-11-2024 09:54-0400 Body weight 74.39 kg Nirav Ace Work Phone: [facility] 01-11-2024 09:54-0400 Heart rate 75 /min Nirav Bello Work Phone: [facility] 01-11-2024 09:54-0400 SaO2% (BldA) [Mass fraction] 97 % Nirav Ace DO Work Phone: [facility] 07-13-2023 08:34-0500 Body height 180.3 cm Epifanio Camp MD Work Phone: [facility] 07-13-2023 08:34-0500 Body mass index (BMI) [Ratio] 23.99 kg/m2 Epifanio Camp MD Work Phone: [facility] 07-13-2023 08:34-0500 Body weight 78.02 kg Epifanio Camp MD Work Phone: [facility] 07-13-2023 08:34-0500 Diastolic blood pressure 64 mm[Hg] Epifanio Camp MD Work Phone: [facility] 07-13-2023 08:34-0500 Heart rate 60 /min Epifanio Camp MD Work Phone: [facility] 07-13-2023 08:34-0500 Systolic blood pressure 108 mm[Hg] Epifanio Camp MD Work Phone: [facility] 11-17-2022 14:15-0400 Body height 180.34 cm Imad Jose Other [facility] [employer] Other 11-17-2022 14:15-0400 Body mass index (BMI) [Ratio] 23.71 kg/m2 Imad Asaad Other [employer] Other 11-17-2022 14:15-0400 Body weight 77.11 kg Imad Asaad Other [employer] Other 11-17-2022 14:15-0400 Diastolic blood pressure 78 mm[Hg] Imad Asaad Other [employer] Other 11-17-2022 14:15-0400 Systolic blood pressure 127 mm[Hg] Imad Asaad Other [employer] Other 07-14-2022 09:08-0500 Body height 180.34 cm Nirav Bello Work Phone: formerly [facility] [employer] 250 DO Work Phone: 07-14-2022 09:08-0500 Body mass index (BMI) [Ratio] 24.13 kg/m2 Nirav Bello Work Phone: formerly [facility] [employer] 250 DO Work Phone: 07-14-2022 09:08-0500 Body surface area Derived from formula 1.98 m2 Nirav Bello Work Phone: formerly [facility] [employer] 250 DO Work Phone: 07-14-2022 09:08-0500 Body weight 78.47 kg Nirav Bello Work Phone: formerly [facility] [employer] 250 DO Work Phone: 07-14-2022 09:08-0500 Diastolic blood pressure 78 mm[Hg] Nirav Bello Work Phone: formerly [facility] 250 DO Work Phone: 07-14-2022 09:08-0500 Heart rate 68 /min Nirav Bello Work Phone: formerly [facility] 250 DO Work Phone: 07-14-2022 09:08-0500 Systolic blood pressure 124 mm[Hg] Nirav Bello Work Phone: formerly [facility] 250 DO Work Phone: 07-03-2021 15:20-0500 Diastolic blood pressure 78 mm[Hg] Nirav Bello Work Phone: formerly [facility] 250 DO Work Phone: 07-03-2021 15:20-0500 Heart rate 65 /min Nirav Bello Work Phone: formerly [facility] 250 DO Work Phone: 07-03-2021 15:20-0500 Systolic blood pressure 136 mm[Hg] Nirav Bello Work Phone: formerly [facility] 250 DO Work Phone: 07-03-2021 15:17-0500 Body height 180.34 cm Nirav Bello Work Phone: formerly [facility] 250 DO Work Phone: 07-03-2021 15:17-0500 Body mass index (BMI) [Ratio] 24.97 kg/m2 Nirav Bello Work Phone: formerly [facility] 250 DO Work Phone: 07-03-2021 15:17-0500 Body surface area Derived from formula 2.01 m2 Nirav Bello Work Phone: formerly [facility] 250 DO Work Phone: 07-03-2021 15:17-0500 Body weight 81.19 kg Nirav Downingman Work Phone: formerly [facility] 250 DO Work Phone: 07-03-2021 15:17-0500 Diastolic blood pressure 80 mm[Hg] Nirav Bello Work Phone: formerly [facility] 250 DO Work Phone: 07-03-2021 15:17-0500 Systolic blood pressure 151 mm[Hg] Nirav Bello Work Phone: formerly [facility] DO Work Phone: Encounters Encounter Date Encounter Type Care Provider Facility Start: 06-30-2024 End: 06-30-2024 Bamboo Viewpointgeno Barrow MD Work Phone: [facility] Start: 06-30-2024 End: 06-30-2024 [employer] View[employer]o Barrow MD Work Phone: [facility] Start: 06-30-2024 End: 06-30-2024 Patient encounter procedure Laura Barrow MD Work Phone: [facility] Comment on above: Basal cell carcinoma (BCC) of skin of left upper extremity including shoulder (Primary Dx); Skin neoplasm Start: 06-30-2024 End: 06-30-2024 ambulatory LAURA BARROW Not Available Start: 05-10-2024 End: 05-10-2024 Bamboo Viewpointheet Nirav Bello DO Work Phone: [facility] Start: 05-10-2024 End: 05-10-2024 [employer] Nirav Bello DO Work Phone: [facility] Start: 05-10-2024 End: 05-10-2024 Office outpatient visit 40 minutes Nirav Bello DO Work Phone: [facility] Comment on above: Allergic sinusitis ( Primary Dx); Type 2 diabetes mellitus with other specified complication, without long-term current use of insulin (CMS/HCC); Primary hypertension (CMS/HCC); PAF (paroxysmal atrial fibrillation) (CMS/HCC); Exocrine pancreatic insufficiency (CMS/HCC); Stage 3a chronic kidney disease (HCC) (CMS/HCC); Mixed hyperlipidemia (CMS/HCC); Chest pain, unspecified type Start: 05-10-2024 End: 05-10-2024 ambulatory NIRAV BELLO Not Available Start: 05-01-2024 End: 05-01-2024 Office outpatient visit 25 minutes Missy Khoury MD Work Phone: [facility] Comment on above: Encounter to discuss test results (Primary Dx); Paroxysmal atrial fibrillation (Multi); Nonrheumatic mitral valve regurgitation; 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); Essential hypertension; Prostate cancer (Multi); PVC (premature ventricular contraction); Mixed hyperlipidemia; Type 2 diabetes mellitus without complication, without long-term current use of insulin (Multi); 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; Former smoker; Body mass index (BMI) of 23.0 to 23.9 in adult Start: 05-01-2024 End: 05-01-2024 ambulatory [facility] Start: 04-27-2024 End: 04-27-2024 Nanette Barrow MD Work Phone: [facility] Start: 04-27-2024 End: 04-27-2024 Nanette Barrow MD Work Phone: [facility] Start: 04-27-2024 End: 04-27-2024 ambulatory LAURA BARROW Not Available Start: 04-03-2024 End: 04-03-2024 Clinisync Result Encounter [...] External Department Unsolicited Start: 02-21-2024 End: 02-21-2024 [facility] Start: 02-21-2024 End: 02-21-2024 Subsequent hospital visit by physician Sindi Hernadez Echo/Vasc Room 2 [facility] Comment on above: PVC (premature ventr icular contraction); Paroxysmal atrial fibrillation (Multi) Start: 02-07-2024 End: 02-07-2024 Subsequent hospital visit by physician Sindi Farr Nm 1 [facility] Comment on above: PVC (premature ventr icular contraction); 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; Ventricular arrhythmia; Abnormal electrocardiogram (ECG) (EKG) Start: 02-07-2024 End: 02-07-2024 [facility] Start: 02-03-2024 End: 02-03-2024 Clinisync Result Encounter Generic External Data Provider [facility] External Department Unsolicited Start: 02-03-2024 End: 02-03-2024 Clinisync Result Encounter Generic External Data Provider [facility] External Department Unsolicited Start: 01-13-2024 End: 01-13-2024 Office outpatient visit 25 minutes Missy Khoury MD Work Phone: [facility] Comment on above: Ventricular arrhythm ia (Primary Dx); PVC (premature ventricular contraction); Paroxysmal atrial fibrillation (Multi); 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; 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; High risk medication use; Mixed hyperlipidemia; Uncontrolled hypertension; Former smoker; Type 2 diabetes mellitus without complication, without long-term current use of insulin (Multi); Stage 3a chronic kidney disease (Multi); Prostate cancer (Multi); Abnormal electrocardiogram (ECG) (EKG) Start: 01-13-2024 End: 01-13-2024 [facility] Start: 01-11-2024 End: 01-11-2024 Office outpatient visit 25 minutes Nirav Bello DO Work Phone: [facility] Comment on above: Primary hypertension (CMS/HCC) (Primary Dx); PAF (paroxysmal atrial fibrillation) (CMS/HCC); Stage 3a chronic kidney disease (HCC) (CMS/HCC); Type 2 diabetes mellitus with other specified complication, without long-term current use of insulin (CMS/HCC) Start: 01-11-2024 End: 01-11-2024 ambulatory NIRAV Vargas [facility] Not Available Start: 11-15-2023 End: 11-15-2023 ambulatory NIRAV A ACE Not Available Start: 10-26-2023 End: 10-26-2023 ambulatory LAURA BARROW Not Available Start: 10-08-2023 End: 10-08-2023 ambulatory NIRAV A ACE Not Available Start: 10-07-2023 End: 10-07-2023 ambulatory NIRAV Alicia ACE Not Available Start: 10-07-2023 End: 10-07-2023 ambulatory NIRAV Alicia ACE Not Available Start: 09-13-2023 End: 09-13-2023 Patient encounter procedure DO Nirav Bello Work Phone: [facility] Work Phone: Start: 09-13-2023 End: 09-13-2023 ambulatory DO Nirav Bello Work Phone: [facility] Work Phone: Start: 07-13-2023 End: 07-13-2023 Office outpatient visit 25 minutes Epifanio Camp MD Work Phone: [facility] Comment on above: Benign essential hyp ertension (Primary Dx); Mixed hyperlipidemia; Paroxysmal atrial fibrillation (CMS/HCC); Former smoker Start: 07-13-2023 End: 07-13-2023 ambulatory EPIFANIO CAMP [facility] Start: 11-26-2022 End: 11-26-2022 ambulatory DO Nirav Bello Work Phone: [facility] Work Phone: Start: 11-26-2022 End: 11-26-2022 Patient encounter procedure DO Nirav Bello Work Phone: [facility] [place] Work Phone: Start: 11-17-2022 End: 11-17-2022 ambulatory Imad Asaad Other [facility] [employer] Other Start: 11-17-2022 Office outpatient ne w 45 minutes Imad Asaad [facility] Start: 11-17-2022 Telephone encounter Imad Asaad [facility] Start: 09-03-2022 End: 09-04-[address] NIRAV BELLO Facility:[facility] Start: 07-14-2022 Office outpatient vi sit 25 minutes Nirav Bello Work Phone: formerly [facility] 250 DO Work Phone: Start: 07-14-[address] 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 Facility:[facility] Start: 11-05-2021 End: 11-06-[address] NIRAV BELLO Facility:[facility] Start: 07-03-2021 Office outpatient vi sit 25 minutes Nirav Bello Work Phone: formerly [facility] 250 DO Work Phone: Start: 03-05-2021 Rx Renewal Marina lozada MD Work Phone: formerly [facility] 250 DO Work Phone: Start: 07-12-2020 End: 07-12-2020 Discharged Recurring Nirav Bello [facility] Vacc[facility] Procedures Date Procedure Procedure Detail Performing Clinician Start: 06-30-2024 SKIN REPAIR Laura monahan MD Work Phone: Start: 06-30-2024 SKIN EXCISION Laura morris MD Work Phone: Start: 05-10-2024 Hemoglobin glycosylated a1c Nirav Bello DO Work Phone: Start: 04-03-2024 ALL CBC WITH AUTO DIFF Generic External Data Provider Start: 03-13-2024 ALL CBC WITH AUTO DIFF Generic External Data Provider Start: 02-21-2024 Echo tthrc r-t 2d w/wom-mode compl spec&colr d Missy Khoury MD Work Phone: Start: 02-07-2024 Cv strs tst xers&/or rx cont ecg trcg only Missy Khoury MD Work Phone: Start: 02-03-2024 ALL BASIC METABOLIC PANEL Generic External Data Provider Start: 09-13-2023 Positron emission tomography DO Nirav Ace Work Phone: Start: 07-13-2023 ECG 12-LEAD EPIFANIO JAMISON Start: 07-13-2023 Ecg routine ecg w/le ast 12 lds w/i&r Epifanio Camp MD Work Phone: Start: 12-24-2022 Colonoscopy Nirav orellana DO Work Phone: Start: 11-26-2022 Computed tomography of abdomen and pelvis with contrast DO Nirav Bello Work Phone: Start: 05-25-[address] DOCTOR BISHOP Comment on above: Performed By: #### L IPID, TSH, CMP #### [facility] [address] [place] [id number] Leesa Urbina Start: 11-20-[address] DOCTOR BISHOP Comment on above: Performed By: #### P SAD #### [facility] [facility] [address] [place] [id number] Leesa Urbina Appendectomy Nirav daniel Work Phone: Cataract surgery Niravclaire Diaz armtu Work Phone: Colonoscopy Nirav daniel Work Phone: Comment on above: [id number] Jovanny Yu; Operation on lip Niravclaire morris Work Phone: Prostatectomy Nirav mae Work Phone: Plan of Treatment Date Care Activity Detail Author Start: 12-24-2032 Screening for malignant neoplasm of colon [facility] Start: 03-16-2026 Glaucoma screening Diabetes: Retinopathy Screening [facility] Start: 11-08-2025 Screening for osteoporosis Bone Density Scan [facility] Start: 11-09-2024 End: 11-09-2024 Patient encounter procedure 11/09/2024 9:30 AM EDT Office Visit [facility] [address] [place] [address] Nirav Bello DO [address] [place] [address] [facility] Start: 10-31-2024 Urine screening for protein Diabetes: Urine Protein Screening [facility] Start: 10-26-2024 End: 10-26-2024 Patient encounter procedure 10/26/2024 9:35 AM EDT Office Visit [facility] [address] [place] [address] Laura Barrow MD [address] [place] [address] [facility] Start: 10-02-2024 End: 10-02-2024 Patient encounter procedure 10/02/2024 11:45 AM EDT Office Visit [facility] [address] [place] [address] Missy Khoury MD [address] [facility] [address] [place] [address] [facility] Start: 08-08-2024 Hemoglobin A1c measurement Diabetes: Hemoglobin A1C [facility] Start: 07-18-2024 End: 07-18-2024 Patient encounter procedure [facility] Start: 07-14-2024 End: 07-14-2024 Patient encounter procedure 07/14/2024 8:30 AM EST Office Visit [facility] [address] [place] [phone] Laura Barrow MD [address] [place] [address] [facility] Start: 06-30-2024 End: 06-30-2024 Patient encounter procedure [facility] Comment on above: Arrived Start: 05-22-2024 End: 05-22-2024 Patient encounter procedure 05/22/2024 8:30 AM EST Office Visit [facility] [address] [place] [phone] Nirav Bello DO [address] [place] [address] [facility] Start: 05-12-2024 Medicare Annual Wellness (AWV) Medicare Annual Wellness (AWV) [facility] Start: 05-10-2024 End: 05-10-2024 Patient encounter procedure 05/10/2024 9:30 AM EST Office Visit [facility] [address] [place] [phone] Nirav Bello DO [address] [place] [address] Other thrombophilia (CMS/HCC) [facility] Comment on above: Other thrombophilia (CMS/HCC) Start: 05-01-2024 End: 05-01-2024 Patient encounter procedure 05/01/2024 1:45 PM EST Office Visit [facility] [address] [place] [phone] Missy Khoury MD [address] [facility] [address] [place] [address] [facility] Start: 04-27-2024 End: 04-27-2024 Patient encounter procedure [facility] Comment on above: Arrived Start: 02-28-2024 End: 02-28-2024 Patient encounter procedure 02/28/2024 3:30 PM EDT Office Visit [address] [phone] Missy Khoury MD [address] [address] [facility] Start: 02-21-2024 End: 02-21-2024 Patient encounter procedure 02/21/2024 7:45 AM EDT Appointment [address] [phone] [facility] Start: 02-07-2024 End: 02-07-2024 Professional / ancillary services management 02/07/2024 11:00 AM EDT Ancillary Procedure [address] [phone] [facility] Start: 02-07-2024 End: 02-07-2024 Patient encounter procedure 02/07/2024 10:15 AM EDT Appointment [address] [phone] [facility] Start: 02-07-2024 End: 02-07-2024 [facility] encounter [facility] Start: 01-27-2024 End: 01-12-2025 Basic metabolic 2000 panel - Serum or Plasma Basic Metabolic Panel Lab Routine Uncontrolled hypertension Expected: 01/27/2024 (Approximate), Expires: 01/12/2025 [facility] Work Phone: Comment on above: Expected: 01/27/2024 (Approximate), Expi res: 01/12/2025 Start: 01-23-2024 COVID-19 Vaccine ( season) COVID-19 Vaccine () [facility] Start: 01-23-2024 Influenza vaccination Influenza Vaccine (#1) [facility] Start: 01-13-2024 End: 01-12-2025 Holter monitor study Holter Or Event [employer] Cardiac Services Routine PVC (premature ventricular contraction) Paroxysmal atrial fibrillation (Multi) Expected: 01/13/2024 (Approximate), Expires: 01/12/2025 [facility] Work Phone: Comment on above: Expected: 01/13/2024 (Approximate), Expi res: 01/12/2025 Start: 01-13-2024 End: 01-12-2026 NM Heart Perfusion W stress and W radionuclide IV Nuclear Stress Test Cardiac Nuclear Medicine Routine PVC (premature ventricular contraction) 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 Ventricular arrhythmia Abnormal electrocardiogram (ECG) (EKG) Expected: 01/13/2024 (Approximate), Expires: 01/12/2026 [facility] Work Phone: Comment on above: Expected: 01/13/2024 (Approximate), Expi res: 01/12/2026 Start: 01-13-2024 End: 01-12-2026 [facility] Transthoracic Transthoracic Echo Complete Echocardiography Routine PVC (premature ventricular contraction) Paroxysmal atrial fibrillation (Multi) Expected: 01/13/2024 (Approximate), Expires: 01/12/2026 [facility] Service Area Work Phone: Comment on above: Expected: 01/13/2024 (Approximate), Expi res: 01/12/2026 Start: 12-12-2023 Glaucoma screening Diabetes: Retinopathy Screening [facility] Start: 08-28-2023 COVID-19 Vaccine ( season) COVID-19 Vaccine () [facility] Start: 07-13-2023 FUV, Provider: Epifanio Camp, Status: Pen, Time: 8:50 AM FUV, Provider: Epifanio Camp, Status: Pen, Time: 8:50 AM [facility] [address] DO Work Phone: Start: 02-05-2023 Hemoglobin A1c measurement Diabetes: Hemoglobin A1C [facility] Start: 07-14-2022 FUV, Provider: Epifanio Camp, Status: Pen, Time: 9:10 AM FUV, Provider: Epifanio Camp, Status: Pen, Time: 9:10 AM -[facility] 250 DO Work Phone: Start: 06-24-2021 FUV, Provider: Epifanio Camp, Status: Pen, Time: 10:15 AM FUV, Provider: Epifaino Camp, Status: Pen, Time: 10:15 AM formerly [facility] [address] DO Work Phone: Start: 2013 RSV High Risk: (Elderly (60+) or Population) (1 - 1-dose 75+ series) RSV High Risk: (Elderly (60+) or Population) (1 - 1-dose 75+ series) [facility] Start: 1998 RSV patients and/or patients aged 60+ years (1 - 1-dose 60+ series) RSV patients and/or patients aged 60+ years (1 - 1-dose 60+ series) [facility] Start: 1960 DTaP/Tdap/Td Vaccines (1 - Tdap) DTaP/Tdap/Td Vaccines (1 - Tdap) [facility] Start: 1957 Urine screening for protein Diabetes: Urine Protein Screening [facility] Start: 1948 Diabetic foot examination Diabetes: Foot Exam [facility] Start: 1948 Glaucoma screening Diabetes: Retinopathy Screening [facility] Start: 1938 Annual wellness visit Welcome to Medicare Visit [facility] Start: 1938 Hemoglobin A1c measurement Diabetes: Hemoglobin A1C [facility] Start: 1938 Lipid panel Lipid Panel [facility] Start: 1938 Medicare Annual Wellness (AWV) Medicare Annual Wellness (AWV) [facility] Start: 1938 Medicare Annual Wellness Visit Medicare Annual Wellness Visit (AWV) [facility] Start: 1938 Screening for malignant neoplasm of colon [facility] Dermatopathology exam Dermatopat hology exam Pathology and Cytology Timed Basal cell carcinoma (BCC) of skin of left upper extremity including shoulder Release Upon Ordering for 1 Occurrences starting 06/30/2024 [facility] Work Phone: Comment on above: Release Upon Ordering for 1 Occurrences starting 06/30/2024 HIV 1+2 Ab+HIV1 p24 Ag [Presence] in Serum or Plasma by Immunoassay [facility] Immunizations Immunization Date Immunization Notes Care Provider Fa tomeka 03-25-2024 influenza virus vacc ine, unspecified formulation Laura Barrow MD Work Phone: [facility] 03-20-2023 Influenza, Seasonal, Quadrivalent, Adjuvanted Nirav Bello DO Work Phone: [facility] 03-20-2023 influenza virus vacc ine, unspecified formulation Nirav Bello DO Work Phone: [facility] 04-03-2022 Moderna COVID-19 Biv al Booster 50 MCG/0.5ML Intramuscular Suspension Nirav Bello Work Phone: [facility] 250 DO Work Phone: 03-10-2022 Fluad Quadrivalent 0 .5 ML Intramuscular Prefilled Syringe Nirav Bello Work Phone: [facility] 250 DO Work Phone: 12-19-2021 Moderna COVID-19 Vac cine 100 MCG/0.5ML Intramuscular Suspension Nirav Bello Work Phone: [facility] 250 DO Work Phone: 03-20-2021 Moderna COVID-19 Vac cine 100 MCG/0.5ML Intramuscular Suspension Nirav Bello Work Phone: [facility] 03-19-2021 Moderna SARS-CoV-2 Booster Vaccination Nirav Bello DO Work Phone: [facility] 03-12-2021 influenza, high dose seasonal, preservative-free Nirav Bello Work Phone: [facility] 02-26-2021 Fluzone High-Dose Quadrivalent 0.7 ML Intramuscular Suspension Prefilled Syringe [facility]av [facility]ello [facility] Work Phone: 07-12-2020 COVID-19 mRNA-1273 (Moderna) [facility] 06-15-2020 COVID-19 mRNA-1273 (Moderna) [facility] 03-15-2020 Fluad Quadrivalent 0 .5 ML Intramuscular Prefilled Syringe Nirav Bello Work Phone: [facility] 02-24-2020 influenza, high dose seasonal, preservative-free [facility] Work Phone: 03-11-2019 zoster vaccine recombinant [facility]ello Work Phone: [facility] DO Work Phone: 03-01-2019 influenza, high dose seasonal, preservative-free Nirav A Ace Work Phone: [facility] Work Phone: 02-21-2019 influenza, high dose seasonal, preservative-free [facility]av Bello Work Phone: [facility] Work Phone: 12-22-2018 zoster vaccine recombinant Nirav A Ace Work Phone: [facility] DO Work Phone: 02-25-2018 influenza, high dose seasonal, preservative-free [facility]irav A Ace [facility] Work Phone: 03-16-2017 influenza, high dose seasonal, preservative-free Nirav Bello Work Phone: [facility] 250 DO Work Phone: 05-24-2016 pneumococcal conjuga te vaccine, 13 valent Nirav Bello Work Phone: [facility] 03-30-2016 influenza, high dose seasonal, preservative-free Nirav Bello DO Work Phone: [facility] 05-02-2015 seasonal influenza, intradermal, preservative free Nirav Bello DO Work Phone: [facility] 03-22-2015 influenza, high dose seasonal, preservative-free Nirav A Ace Work Phone: [facility] 250 DO Work Phone: 12-14-2013 pneumococcal conjuga te vaccine, 13 valent Nirav Bello DO Work Phone: [facility] 10-10-2012 zoster vaccine, live Nirav Bello DO Work Phone: [facility] 05-24-2012 pneumococcal polysaccharide vaccine, 23 valent Nirav Bello Work Phone: [facility] 05-31-2009 novel influenza-H1N1 -09, preservative-free, injectable Nirav Bello Work Phone: [facility] 250 DO Work Phone: 07-23-2003 pneumococcal polysaccharide vaccine, 23 valent Nirav Bello DO Work Phone: [facility] Payers Date Payer Category Payer Self-pay [id number] 2023 Medicare (Managed Care) [employer]ICARE [id number] 2022 Medicaid [employer] MEDICARE A DVANTAGE [id number] 2022 Medicare [id number] 1959 Private Health Insurance [facility] [id number] 1938 Unknown [id number] 2.16840.1.690008.3.579.2. 356 1938 Unknown [id number] 2.16840.1.703977.3.579.2. 593 1938 Unknown [id number] 2.16840.1.596460.3.579.2. 593 1938 Unknown [id number] 2.16840.1.267604.3.579.2. 593 1938 Unknown [id number] 2.16.840.1.783210.3.579.2. 593 1938 Unknown [id number] 2.16840.1.636315.3.579.2. 593 1938 Unknown [id number] 2.16.840.1.010555.3.579.2. 1246 1938 Unknown [id number] 2.16.840.1.082163.3.579.2. 1246 1938 Unknown [id number] 2.16.840.1.934921.3.579.2. 1246 1938 Unknown [id number] 2.16.840.1.386937.3.579.2. 1246 1938 Unknown [id number] 2.16.840.1.861750.3.579.2. 124 1938 Unknown [id number] 2.16.840.1.387820.3.579.2. 124 1938 Unknown [id number] 2.16.840.1.147066.3.579.2. 1244 1938 Unknown [id number] 2.16.840.1.004861.3.579.2. 1244 1938 Unknown [id number] 2.16.840.1.540963.3.579.2. 1244 1938 Unknown [id number] 2.16.840.1.005418.3.579.2. 1244 1938 Unknown [id number] 2.16.840.1.429167.3.579.2. 1259 1938 Unknown [id number] 2.16.840.1.176293.3.579.2. 1259 1938 Unknown [id number] 2.16.840.1.574053.3.579.2. 125 1938 Unknown [id number] 2.16.840.1.316652.3.579.2. 1259 1938 Unknown [id number] 2.16.840.1.015569.3.579.2. 1259 1938 Unknown [id number] 2.16.840.1.037498.3.579.2. 1259 1938 Unknown [id number] 2.16.840.1.020565.3.579.2. 1259 1938 Unknown [id number] 2.16.840.1.941543.3.579.2. 1259 1938 Unknown [id number] 2.16.840.1.888591.3.579.2. 1259 Medicare Medicare [id number] Private Health Insurance Self Pay [id number] [id number] Unknown [employer] Unknown [id number] 2.16.840.1.863820.3.579.2. 531 Social History Date Type Detail Facility Tobacco smoking stat us [email or web address] Unknown if ever smoked [facility] Start: 1940 Sex Assigned At Male F [facility] Start: 11-10-2022 End: 07-13-2023 Never a smoker Never a smoker -[facility] 250 DO Work Phone: Comment on above: 2-3 drinks a month; Start: 12-05-2021 End: 11-15-2023 Tobacco smoking status NHIS Ex-smoker (finding) [facility] Start: 11-10-2022 End: 07-13-2023 Sex Assigned At [facility] Other Start: 06-12-1956 End: 05-24-1989 History of tobacco use Current smoker [facility] Work Phone: Start: 06-12-1956 End: 05-24-1989 History of tobacco use Cigarette Smoker [facility] Work Phone: Start: 07-13-2023 End: 11-15-2023 Tobacco use and exposure Smokeless tobacco non-user [facility] Work Phone: Start: 07-13-2023 End: 01-13-2024 Alcohol intake Lifetime non-drinker (finding) [facility] Work Phone: Start: 1940 Sex Assigned At Not on file [facility] Work Phone: Start: 07-03-2023 End: 05-01-2024 Exposure to SARS-CoV-2 (event) Not sure [facility] History of tobacco use Pipe Smoker [facility] History of tobacco use Passive smoker [facility] Start: 01-11-2024 End: 06-30-2024 Alcoholic beverage intake Current drinker of alcohol [...] Goals Date Patient Goal Desired Activity /State Clinical Notes 07-14-2022 to 06-30-2024 Laura Barrow MD - 06/30/2024 8:30 AM Isi Bello DO - 05/10/2024 9:30 AM Skinny Khoury MD - 05/01/2024 1:45 PM ESTPatient Elmer Khoury MD - 01/13/2024 2:30 PM EDT Note Date & Type Note Facility 06-30-2024 History of Present illness Narrative Images from the original note were not included. Subjective Epifanio Walsh is a 84 y.o. male who presents for the following: Excision. Location: Left upper arm Date of biopsy: 04/27/24 Diagnosis: Nodular basal cell carcinoma Lesions: Location: right lower leg, left shoulder Duration: months Quality: denies pain Associated symptoms: rough, scaly Treatments: Efudex- ineffective Pre-Op Checklist: History of pacemaker/defibrillator: No History of joint replacement in the past 2 years: No History of HIV/Hepatitis B/Hepatitis C: No Latex allergy: No Is the patient currently on a blood thinner? Yes. . Xarelto (rivaroxaban)The patient was recommended to continue taking their blood thinner as usual before, during, and after the procedure. All pertinent medical history, medications, and allergies were reviewed. Surgical assistants: Pierre Green CMA and Valerie Batista LPN Objective Well appearing patient in no apparent distress; mood and affect are within normal limits. 1. Basal cell carcinoma (BCC) of skin of left upper extremity including shoulder Left Upper Arm [place] macule at biopsy site. Skin excision Lesion length (cm): 1.2 Lesion width (cm): 1 Margin per side (cm): 0.4 Total excision diameter (cm): 2 Informed consent: discussed and consent obtained Informed consent comment: Risks and possible complications were discussed as noted on the consent form. The consent form was signed prior to the procedure. Timeout: patient name, date of , surgical site, and procedure verified Timeout comment: Patient and provider identified site. Site was marked and excision was drawn out. Photo was taken and shown to patient, patient verified this is the correct site. Procedure prep: Patient was prepped and draped in usual sterile fashion (The planned incision lines were drawn along relaxed skin tension lines, if possible, to minimize scarring and deformity of surrounding structures.) Prep type: Chlorhexidine Anesthesia: the lesion was anesthetized in a standard fashion Anesthesia comment: The local anesthetic was injected to create a field block at the site of the procedure. Anesthetic: 1% lidocaine w/ epinephrine 1-100,000 buffered w/ 8.4% NaHCO3 Instrument used: #15 blade Instrument used comment: Incisions were made as drawn, and the surrounding tissue was undermined until the skin edges could be approximated without undue tension. Any tissue redundancies were removed. Hemostasis achieved with: electrodesiccation Additional details: Amount of lidocaine used: 9.0 ml Estimated blood loss: <1.0 ml Skin repair Complexity: Intermediate Final length (cm): 4 Reason for type of repair: allow closure of the large defect Undermining: edges undermined Undermining comment: The surrounding tissue was undermined until the skin edges could be approximated without undue tension. Any tissue redundancies were removed. Subcutaneous layers (deep stitches): Suture size: 4-0 and 3-0 Suture type comment: Biosyn Stitches: Buried horizontal mattress (Closure was performed in a layered fashion with subcutaneous tissue closed first using tension-bearing absorbable sutures to the level of the superficial fascia.) Fine/surface layer approximation (top stitches): Suture size: 4-0 Suture type comment: Surgipro Stitches: simple running Stitches comment: Epicuticular skin sutures were then placed with minimal tension. Suture removal (days): 14 Outcome: patient tolerated procedure well with no complications Post-procedure details: sterile dressing applied and wound care instructions given Post-procedure details comment: It was emphasized to the patient to contact the office for any signs of infection, uncontrollable bleeding, or complications. Dressing type: bandage Specimen A - Dermatopathology exam Diagnosis: BCC Check Margins: Yes Previous accession number: [id number] 2. Skin neoplasm (2) Left shoulder Erythematous, crusted papule. Right lower leg Erythematous, crusted papule. Biopsies deferred until suture removal due to insurance restrictions. Follow up: 14 days for s/r documented in this encounter [facility] 05-10-2024 History of Present illness Narrative Images from the original note were not included. Epifanio Walsh is a 83 y.o. male presents with chief complaint of Hospital Follow-up (Pt presents hospital follow up at [facility] on 05/03 for hypertension. Pt states he BP still feels elevated, although he hasn't been checking he BP at home. Pt denies chest pain, SOB or blurry vision) HPI: I have reviewed and reconciled the history and medication list with the patient today. PAST MEDICAL HISTORY: Past Medical History: Diagnosis Date Actinic keratosis Basal cell carcinoma Basal cell carcinoma (BCC) of skin of left upper lip Mohs 12/04/2021 Benign essential hypertension (CMS/HCC) Cancer of skin, squamous cell Depression (CMS/HCC) Diabetes mellitus (CMS/HCC) without mention of complication, type II or unspecified type, not stated as uncontrolled Essential hypertension, benign (CMS/HCC) H/O prostatectomy History of appendectomy Hyperlipidemia (CMS/HCC) Irritable bowel syndrome Malignant neoplasm of prostate (CMS/HCC) Palpitations Pre-diabetes SURGICAL HISTORY: Past Surgical History: Procedure Laterality Date APPENDECTOMY 1952 BACK SURGERY CATARACT EXTRACTION Left 10/01/2017 CATARACT EXTRACTION Right 10/28/2017 per in [place], [place]. COLONOSCOPY 2010 COLONOSCOPY 11/28/[address] Yu. JOINT REPLACEMENT Knee replacement MOHS SURGERY REPAIR 12/08/2021 left upper lip PROSTATECTOMY RADIATION ONCOLOGY SS 2009 35 Radiation Treatments,6-7 Disease :Reoccurance Prostrate Cancer 6 SOCIAL HISTORY: Social History Tobacco Use Smoking status: Former Current packs/day: 0.00 Average packs/day: 0.3 packs/day for 3.0 years (0.8 ttl pk-yrs) Types: Cigarettes, Pipe Start date: 06/12/1956 Quit date: 05/24/1959 Years since quittin.0 Passive exposure: Past Smokeless tobacco: Never Vaping Use Vaping status: Never Used Substance Use Topics Alcohol use: Yes Comment: on occasion Drug use: Never Depression: Not at risk (05/12/2023) PHQ-2 PHQ-2 Score: 0 FAMILY HISTORY: Family History Problem Relation Name Age of Onset Heart disease Mother Silver Heart disease Father Epifanio Melanoma Neg Hx MEDICATIONS: Current Outpatient Medications Medication Instructions atorvastatin (Lipitor) 20 MG tablet TAKE 1 TABLET AT NIGHT calcitriol (ROCALTROL) 0.5 mcg, Daily cloNIDine (CATAPRES) 0.1 mg, As needed Creon 69185-23578 units capsule TAKE 1 CAPSULE IN THE MORNING, 1 CAPSULE AT NOON AND 1 CAPSULE IN THE EVENING WITH MEALS denosumab (XGEVA) 120 mg, Every 30 days fluorouracil (Efudex) 5 % cream Apply to affected areas bid x 14 days lisinopril 20 mg, Oral, 2 times daily lisinopril 20 mg, Oral, 2 times daily magnesium oxide (MAG-OX) 400 mg, 2 times daily metFORMIN (Glucophage) 500 MG tablet TAKE 1 TABLET IN THE EVENING WITH A MEAL metoprolol succinate XL (TOPROL-XL) 50 mg, 2 times daily mirtazapine (REMERON) 15 mg, Oral, Nightly predniSONE (DELTASONE) 5 mg, Daily rivaroxaban (Xarelto) 20 MG tablet Every 24 hours ALLERGIES: Allergies Allergen Reactions Sulfa Antibiotics Hives Sulfanilamide Unknown REVIEW OF SYMPTOMS: The ROS was neg. No chest pain or dyspnea. Denies any GI issues. Weight stable. No swellng. Denies any issues with meds. PHYSICAL EXAM: Visit Vitals BP (!) 182/100 Pulse 72 Ht 5' 9 Wt 168 lb SpO2 97% BMI 24.81 kg/m Smoking Status Former BSA 1.93 m BP Readings from Last 3 Encounters: 05/10/24 (!) 182/100 01/11/24 138/80 11/15/23 110/62 Wt Readings from Last 3 Encounters: 05/10/24 168 lb 01/11/24 164 lb 11/15/23 167 lb Physical exam- No focal neuro signs. No enlarged Lymph Nodes, no thyromegaly/ nodules, HRRR, LCTA, benign ABD exam w/ no bruits. Carotid pulse wnl, no bruits. Pulses intact and palp in all extremities, no edema ASSESSMENT AND PLAN: Assessment/Plan Problem List Items Addressed This Visit HTN (hypertension) (CMS/HCC) Hyperlipidemia, unspecified (CMS/HCC) Stage 3a chronic kidney disease (HCC) (CMS/HCC) Type 2 diabetes mellitus with other specified complication (CMS/HCC) Relevant Orders POCT glycosylated hemoglobin (Hb A1C) docked device PAF (paroxysmal atrial fibrillation) (CMS/HCC) Exocrine pancreatic insufficiency ([facility]) Other Visit Diagnoses Allergic sinusitis - Primary He has seen today for a routine check up and a post to our visit. Follow up. He s had some issues where his blood pressure has been fluctuating quite a bit. It was an ER with a 220/100. They gave us some PRN cat press. Today is blood pressure is 130 over 66. He s anxious about his blood pressure and so I m going to renew the cat press at 0.1 mg every 8 to 12 hours taken PRN for a systolic greater than 160 or a diastolic greater than 90. Now we did have an appointment with the direct marketing manager at [facility], blood pressure was stable at that time. His heart rhythm has been regular and he s not had any chest pain or heart failure. His cardio pulmonary and G.I. review systems are negative. He seems to be doing quite stable at this moment. I reviewed his lab which is satisfactory. At this point the only other issue is his chronic allergic sinusitis and he s going to go back on the Flonase nasal spray. He s had no fever and denies any bloody discharge. 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 As long as you are clear at this point. There s no demon on exam no JVD. No thyroid enlargement. Don t live adenopathy and the head or neck. I ll see him in six months for routine check up. This note was Dictated and not read. documented in this encounter [facility] 05-01-2024 History of Present illness Narrative Most recent office visit December 2023. At that time we ordered additional testing to include echocardiogram perfusion imaging Holter monitor and blood work. Subjective : Reports feeling better overall. He says he works out 3 times a week, he does 20 minutes of bicycle 20 minutes of treadmill and 20 minutes of weight training. No symptoms. Palpitations are very infrequent, they have improved with up titration of Toprol-XL. Remains on long-term anticoagulation with Xarelto without any bleeding diathesis. Blood pressure is elevated today, and recheck blood pressure was even higher, patient says is not usual for him. History so Far : 1. Primary hypertension 2. Recent acceleration of blood pressure related to Zytiga for prostate cancer 3. Tendency for sinus bradycardia 4. Symptomatic PVCs. 5. Allergy to sulfa 6. Mixed hyperlipidemia 7. Paroxysmal atrial fibrillation 8. Pgt-lfgdniv-tunylsxky diabetes 9. [id number] score of 4. 10. Long-term anticoagulation with rivaroxaban 11. EKG June 2023-Loup formed PVCs in a pattern of ventricular trigeminy and bigeminy normal intervals 12. Prior EKG shows atrial fibrillation with rapid ventricular rate. I believe this was from December 27, 2023 13. Systolic murmur of mitral regurgitation, most consistent with mitral valve prolapse. 14. Echocardiogram January 2024-LVEF 60% impaired LV relaxation normal left atrial size normal RV size and systolic function mitral valve normal in structure mild to moderate mitral annular calcification mild to moderate mitral regurgitation trace tricuspid regurgitation RVSP 29 mmHg no pericardial effusion normal-sized aortic root LV end-systolic diameter 3.6 cm 15. Stress test February 10 24-7 METS 100% age-predicted maximum heart rate Caden protocol normal perfusion LVEF 67% transient ischemic dilatation 0.88 no significant change compared to stress test of 2009 study did not comment on ventricular ectopy 16. 48-hour Holter monitor January 2024-no symptoms sinus rhythm 49 bpm 201 bpm 2 short runs of ventricular tachycardia up to 4 beats maximum rate 95 bpm varying morphologies of ventricular ectopic beats, PVC burden less than 2% 8 bursts of supraventricular tachycardia longest being 6 beats fastest 130 bpm atrial fibrillation was not identified Objective Wt Readings from Last 3 Encounters: 05/01/24 78 kg (172 lb) 02/21/24 77.1 kg (170 lb) 01/13/24 77.1 kg (170 lb) Vitals: 05/01/24 1339 05/01/24 1407 BP: 148/82 (!) 174/94 BP Location: Left arm Left arm Patient Position: Sitting Sitting Pulse: (!) 48 Weight: 78 kg (172 lb) Height: 1.803 m (5' 11 ) Physical Exam: GENERAL APPEARANCE: in no acute distress. CHEST: Symmetric and non-tender. INTEGUMENT: Skin warm and dry HEENT: No gross abnormalities identified.No pallor or scleral icterus. NECK: Supple, no JVD, no bruit. NEURO/PSHCY: Alert and oriented x3; appropriate behavior and responses and responses LUNGS: Clear to auscultation bilaterally; normal respiratory effort. HEART: Rate and rhythm regular, grade 2/6 late systolic murmur over area of PMI no gallop appreciated. ABDOMEN: Soft, non tender. MUSCULOSKELETAL: No gross deformities. EXTREMITIES: Warm There is no edema noted. Meds: Current Outpatient Medications Medication Instructions ascorbic acid, vitamin C, 500 mg capsule 1 capsule, Daily atorvastatin (LIPITOR) 10 mg, oral, Daily cholecalciferol (VITAMIN D-3) 25 mcg, Daily cyanocobalamin (Vitamin B-12) 1,000 mcg tablet 1 tablet, Daily tezzhl-udjkswcq-pelxwez (Creon) 24,000-76,000 -120,000 unit capsule 1 capsule, 3 times daily (morning, midday, late afternoon) lisinopril 40 mg, oral, Daily magnesium oxide (MAG-OX) 400 mg, oral, 2 times daily metFORMIN (Glucophage) 500 mg tablet 1 tablet, Daily metoprolol succinate XL (TOPROL-XL) 100 mg, oral, Daily, Do not crush or chew. mirtazapine (Remeron) 15 mg tablet 1 tablet, Nightly rivaroxaban (XARELTO) 20 mg, oral, Daily vit A/vit C/vit E/zinc/copper (ICAPS AREDS ORAL) 1 tablet, See admin instructions Allergies Allergen Reactions Sulfa (Sulfonamide Antibiotics) Hives Sandraa [Abiraterone] Other hypertension LABS: March 2024-hemoglobin 12.4 hematocrit 38.4 platelets 1 72,000 sodium 145 potassium 4.0 BUN 14 creatinine 1.28 GFR 53 liver enzymes normal GFR was in the mid 50s to high 50s dating back to November 2023 Patient Active Problem List Diagnosis Date Noted Body mass index (BMI) of 23.0 to 23.9 in adult 05/01/2024 Encounter to discuss test results 05/01/2024 Benign hypertensive kidney disease with chronic kidney disease 05/01/2024 PVC (premature ventricular contraction) 01/13/2024 assisted current use of 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 01/13/2024 High risk medication use 01/13/2024 Stage 3a chronic kidney disease (Multi) 01/13/2024 Prostate cancer (Multi) 01/13/2024 Nonrheumatic mitral valve regurgitation 01/13/2024 Former smoker 07/13/2023 Essential hypertension 05/28/2023 Diabetes mellitus (Multi) 05/28/2023 Hyperlipidemia 05/28/2023 Paroxysmal atrial fibrillation (Multi) 05/28/2023 Assessment: 1. Encounter to discuss test results 2. Paroxysmal atrial fibrillation (Multi) Follow Up In Cardiology Follow Up In Cardiology metoprolol succinate XL (Toprol-XL) 50 mg 24 hr tablet rivaroxaban (Xarelto) 20 mg tablet 3. Nonrheumatic mitral valve regurgitation 4. 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 Essential hypertension lisinopril 20 mg tablet 6. Prostate cancer (Multi) 7. PVC (premature ventricular contraction) 8. Mixed hyperlipidemia atorvastatin (Lipitor) 20 mg tablet 9. 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 Former smoker 12. Body mass index (BMI) of 23.0 to 23.9 in adult Clinical decision making: Patient reports that today's blood pressure is unusual for him and his usual blood pressures run lower. He has upcoming appointment with primary care end of this month. I asked him to monitor his blood pressure at home, and showed a log to Dr. Bello for changes in antihypertensive regimen. As far as the PVCs go, he does not have evidence of ischemic heart disease, and his LV systolic function is normal.'s are not an issue at this time, will continue current medical strategy Mitral regurgitation-murmur is clearly suggestive of mitral valve prolapse. Mitral valve prolapse or eccentric mitral regurgitation was not commented on the echo report. Left atrial size is normal PA pressure was normal LV function and LV cavity size are normal. Patient is doing well clinically. We will continue to observe. Follow up : 6 months Provider Attestation - Britney Lopesibmeryl documentation All medical record entries made by the Scribe were at my direction and personally dictated by me. I have reviewed the chart and agree that the record accurately reflects my personal performance of the history, physical exam, discussion and plan. documented in this encounter [facility] Work Phone: 05-01-2024 Instructions Britney Salgado LPN - 05/01/2024 1:45 PM EST Please bring all medicines, vitamins, and herbal supplements with you when you come to the office. Prescriptions will not be filled unless you are compliant with your follow up appointments or have a follow up appointment scheduled as per instruction of your physician. Refills should be requested at the time of your visit. documented in this encounter [facility] Work Phone: 01-13-2024 History of Present illness Narrative Patient is new to this provider. Most recently seen by Dr. Camp in June 2023. Has history of atrial fibrillation and PVCs. Also has primary hypertension. Subjective : Reviewed most recent office note by Dr. Camp. At that time there was a concern that patient's symptomatic PVCs were increase in frequency as a result of beta-blockade. Metoprolol succinate dose was therefore reduced from 100 mg daily to 50 mg daily. Patient reports that the PVCs have actually increased in frequency. He is able to identify between the PVCs and his atrial fibrillation. Has noticed in the past that he has to exert himself to raise his heart rate to get relief from the PVCs. He says the PVCs are affecting his quality of life. Lately they have been increasing in frequency. They do not make him lightheaded or dizzy, but they are very uncomfortable. He sometimes gets short of breath with them. 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 Dr. Bello his primary MD recently suggested that he increase his lisinopril from 20 mg daily to 40 mg daily when patient called in requesting a sooner appointment, I suggested magnesium oxide 400 mg daily which she is taking. His appointment was moved up. Denies chest pressure tightness or heaviness. In December 2023 patient presented to the emergency department with palpitations and shortness of breath and a month prior to that he presented with syncope. EKG done showed atrial fibrillation with rapid ventricular rate. History so Far : Very limited information available in the current chart. Additional chart review needs to be done. 1. Primary hypertension 2. Recent acceleration of blood pressure related to Zytiga for prostate cancer 3. Tendency for sinus bradycardia 4. Symptomatic PVCs. 5. Allergy to sulfa 6. Mixed hyperlipidemia 7. Paroxysmal atrial fibrillation 8. Bos-czvijjy-vqcsudghg diabetes 9. [id number] score of 4. 10. Long-term anticoagulation with rivaroxaban 11. EKG June 2023-Loup formed PVCs in a pattern of ventricular trigeminy and bigeminy normal intervals 12. Prior EKG shows atrial fibrillation with rapid ventricular rate. I believe this was from December 27, 2023 Objective Wt Readings from Last 3 Encounters: 01/13/24 77.1 kg (170 lb) 07/13/23 78 kg (172 lb) 07/14/22 78.5 kg (173 lb) Vitals: 01/13/24 1524 01/13/24 1614 01/13/24 1615 BP: 162/88 (!) 166/104 (!) 162/100 BP Location: Left arm Left arm Left arm Patient Position: Sitting Sitting Standing Pulse: 72 Weight: 77.1 kg (170 lb) Height: 1.803 m (5' 11 ) Physical Exam: GENERAL APPEARANCE: in no acute distress. CHEST: Symmetric and non-tender. INTEGUMENT: Skin warm and dry HEENT: No gross abnormalities identified.No pallor or scleral icterus. NECK: Supple, no JVD, no bruit. NEURO/PSHCY: Alert and oriented x3; appropriate behavior and responses and responses LUNGS: Clear to auscultation bilaterally; normal respiratory effort. HEART: Rate and rhythm regular with frequent ectopic beats. S1 is accentuated. There is a high-pitched late systolic murmur over area of PMI, which raises suspicion for mitral valve prolapse. No diastolic murmur. No gallop ABDOMEN: Soft, non tender. MUSCULOSKELETAL: No gross deformities. EXTREMITIES: Warm There is no edema noted. Meds: Current Outpatient Medications Medication Instructions ascorbic acid, vitamin C, 500 mg capsule 1 capsule, oral, Daily atorvastatin (Lipitor) 20 mg tablet 0.5 tablets, oral, Daily cholecalciferol (VITAMIN D-3) 25 mcg, oral, Daily cyanocobalamin (Vitamin B-12) 1,000 mcg tablet 1 tablet, oral, Daily iwzmfd-ywhjdozm-oohneyp (Creon) 24,000-76,000 -120,000 unit capsule 1 capsule, oral, 3 times daily (morning, midday, late afternoon) lisinopril 40 mg, oral, Daily magnesium oxide (MAG-OX) 400 mg, oral, 2 times daily metFORMIN (Glucophage) 500 mg tablet 1 tablet, oral, Daily metoprolol succinate XL (TOPROL-XL) 100 mg, oral, Daily, Do not crush or chew. mirtazapine (Remeron) 15 mg tablet 1 tablet, oral, Nightly predniSONE (DELTASONE) 2.5 mg, oral, Daily RT rivaroxaban (XARELTO) 20 mg, oral, Daily vit A/vit C/vit E/zinc/copper (ICAPS AREDS ORAL) 1 tablet, oral, See admin instructions Allergies Allergen Reactions Sulfa (Sulfonamide Antibiotics) Hives Zytiga [Abiraterone] Other hypertension LABS: October 2023-triglycerides 107 total cholesterol 150 HDL 70 LDL 61 Free T40.96 TSH 1.28 hemoglobin 11.8 hematocrit 37 platelets 1 75,000 sodium 144 potassium 3.9 GFR 55 liver enzymes normal PSA 0.22 Patient Active Problem List Diagnosis Date Noted PVC (premature ventricular contraction) 01/13/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 Ventricular arrhythmia Nuclear Stress Test 2. 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 assisted current use of 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 6. High risk medication use 7. Mixed hyperlipidemia 8. Uncontrolled hypertension Basic Metabolic Panel Basic Metabolic Panel 9. Former smoker 10. Type 2 diabetes mellitus without complication, without long-term current use of insulin (Multi) 11. Stage 3a chronic kidney disease (Multi) 12. Prostate cancer (Multi) 13. Abnormal electrocardiogram (ECG) (EKG) Nuclear Stress Test Clinical decision making: Issues addressed today include paroxysmal atrial fibrillation which is highly symptomatic and different from the PVCs with respect to symptoms, increasing frequency of ventricular premature beats, EKG shows more of form ventricular premature beats, accelerated hypertension, and murmur of? Mitral valve prolapse/mitral regurgitation over the area of PMI. Patient felt better on the higher dose of metoprolol succinate, I will increase the metoprolol succinate back to 100 mg daily, increase the magnesium oxide to 400 mg p.o. twice daily. Needs echocardiogram, and perfusion imaging study. Follow-up after testing sooner if interval problems arise 48-hour Holter monitor May need EP input,? Ablation of PVCs and atrial fibrillation, but I would like to define his structural heart disease better, and rule out flow-limiting CAD. Discussed atrial fibrillation, possibility of antiarrhythmic therapy, antiarrhythmic therapy may also suppress his PVCs. Very low threshold for EP consult once initial data is obtained Follow up : after testing Provider Attestation - Scribe documentation All medical record entries made by the Scribe were at my direction and personally dictated by me. I have reviewed the chart and agree that the record accurately reflects my personal performance of the history, physical exam, discussion and plan. documented in this encounter [facility] Work Phone: 01-13-2024 Instructions Fay Edge CMA - 01/13/2024 2:30 PM EDT Please bring all medicines, vitamins, and herbal supplements with you when you come to the office. Prescriptions will not be filled unless you are compliant with your follow up appointments or have a follow up appointment scheduled as per instruction of your physician. Refills should be requested at the time of your visit. documented in this encounter [facility] Work Phone: 07-13-2023 History of Present illness Narrative Subjective Epifanio Walsh is a 83 y.o. male Chief [...] the above we feel an adjustment in beta-neeru therapy is appropriate but otherwise no intervention [...] by mouth once daily., Disp: , Rfl: emcpfs-dywbcafk-jbabwhk (Creon) 24,000-76,000 -120,000 unit capsule, Take 1 [...] the direction and in the presence of Epifanio Camp MD. Provider Attestation - Scribe documentation All medical record entries made by the Scribe were at my direction and personally dictated by me. I have reviewed the chart and agree that the record accurately reflects my personal performance of the history, physical exam, discussion and plan. documented in this encounter [facility] Work Phone: 07-13-2023 Instructions Dominick Suazo MA - 07/13/2023 [...] of your visit. documented in this encounter [facility] Work Phone: 11-17-2022 Evaluation note Encounter Date Diagnosis Assessment Notes Oct, Change in bowel habits (ICD-10 - R19.4) Oct, Diverticulosis (ICD-10 - K57.90) Oct, IBS (irritable bowel syndrome) (ICD-10 - K58.9) Oct, Pancreatic insufficiency (ICD-10 - K86.89) [facility] [employer] Other 02-21-2023 History of Present illness Narrative* walks 2 to 3 miles a day * Patient returns in follow-up of problems as [...] will continue his diet and exercise routine whichappears to be excellent. In light of all the above we believe no adjustments in therapy are necessary and we suggest follow-up next year formerly [facility] [address] DO Work Phone: Evaluation noteNo assessment information available [facility] Work Phone: Evaluation noteNo [employer] Other Evaluation note* Diagnosis Benign essential hypertension- Primary Essential hypertension, benign Mixed hyperlipidemia Paroxysmal atrial fibrillation (CMS/HCC) Atrial fibrillation Former smoker Personal history of tobacco use, presenting hazards to health documented in this encounter [facility] Work Phone: Evaluation note* Diagnosis Encounter to discuss test results- Primary Other specified counseling Paroxysmal atrial fibrillation (Multi) Atrial fibrillation Nonrheumatic mitral valve regurgitation 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 Essential hypertension Unspecified essential hypertension Prostate cancer (Multi) Malignant neoplasm of prostate PVC (premature ventricular contraction) Other premature beats Mixed hyperlipidemia Type 2 diabetes mellitus without complication, without long-term current use of insulin (Multi) assisted current use of 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 Former smoker Personal history of tobacco use, presenting hazards to health Body mass index (BMI) of 23.0 to 23.9 in adult documented in this encounter [facility] Work Phone: Evaluation note* Diagnosis Ventricular arrhythmia- Primary Unspecified cardiac dysrhythmia PVC (premature ventricular contraction) Other premature beats Paroxysmal atrial fibrillation (Multi) Atrial fibrillation 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 assisted current use of 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 High risk medication use Mixed hyperlipidemia Uncontrolled hypertension Former smoker Personal history of tobacco use, presenting hazards to health Type 2 diabetes mellitus without complication, without long-term current use of insulin (Multi) Stage 3a chronic kidney disease (Multi) Prostate cancer (Multi) Malignant neoplasm of prostate Abnormal electrocardiogram (ECG) (EKG) documented in this encounter [facility] Work Phone: Evaluation note* Diagnosis PVC (premature ventricular contraction) Other premature beats 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 Ventricular arrhythmia Unspecified cardiac dysrhythmia Abnormal electrocardiogram (ECG) (EKG) documented in this encounter [facility] Work Phone: Evaluation note* Diagnosis PVC (premature ventricular contraction) Other premature beats Paroxysmal atrial fibrillation (Multi) Atrial fibrillation documented in this encounter [facility] Work Phone: Evaluation note* Diagnosis Primary hypertension (CMS/HCC)- Primary Unspecified essential hypertension PAF (paroxysmal atrial fibrillation) ([facility]/HCC) Atrial fibrillation Stage 3a chronic kidney disease (HCC) ([facility]) Type 2 diabetes mellitus with other specified complication, without long-term current use of insulin ([facility]/HCC) documented in this encounter [facility] HealthcareEvaluation note* Diagnosis Allergic sinusitis- Primary Type 2 diabetes mellitus with other specified complication, without long-term current use of insulin (CMS/HCC) Primary hypertension (CMS/HCC) Unspecified essential hypertension PAF (paroxysmal atrial fibrillation) ([facility]/HCC) Atrial fibrillation Exocrine pancreatic insufficiency (CMS/HCC) Other specified disease of pancreas Stage 3a chronic kidney disease (HCC) ([facility]/HCC) Mixed hyperlipidemia ([facility]/HCC) Mixed hyperlipidemia Chest pain, unspecified type documented in this encounter [facility]* Diagnosis Basal cell carcinoma (BCC) of skin of left upper extremity including shoulder- Primary Skin neoplasm Neoplasm of unspecified nature of bone, soft tissue, and skin documented in this encounter [facility] Healthcare[facility] general Narrative - Reported* Type Description Date Medical History diabetes mallitus Medical History high blood pressure Medical History appendectomy Medical History Palpitations Medical History Malignant neoplasm of prostate Medical History Irritable bowel syndrome Medical History Diabetes mellitus [facility] mention of complication, type II or unspecified type, not stated as uncontrolled Medical History Benign essential hypertension Medical History Pre-diabetes Medical History Hyperlipidemia Medical History Essential hypertension, benign Medical History cancer, squamous cell Medical History basal cell carcinoma Medical History H/O prostatectomy Medical History Depression Medical History BCC removed from left upper lip, Mohs 12/04/2021 Surgical History appendectomy Surgical History prostatectomy Surgical History Procedure:prostatectomy Surgical History Procedure:Appendectomy 1952 Surgical History Procedure:Back surgery Surgical History Procedure:Knee replacement Surgical History Procedure:35 Radiati on Treatments,-;Disease:Reoccurance Prostrate Cancer 2008 Surgical History Procedure:colonoscopy 2010 Surgical History Colonoscopy per Dr. Yu. 11-28-15 Surgical History Left Cataract surgery 10-01-17 Surgical History Right cataract surgery per Dr.Z santamaria in [place], [place]. 10-28-17 Surgical History Mohs repair / left upper lip Hospitalization History see above [employer] Other History of Present illness NarrativeReturns in follow- up of problems as noted. He is doing well. He is tolerating the strategy of rate control with 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 for history of paroxysmal atrial fibrillation he denies frequent breakthroughs. Control of other risk factors including blood pressure cholesterol and diabetes is reviewed and felt to be adequate and appropriate. Because of all the above we suggest continued therapy as before without change.-[facility] [address] DO Work Phone: Advance Directives No [...] Assessments No Assessments Information Available Chief Complaint EPIFANIO WALSH is being seen for a 9 month follow-up of.EPIFANIO WALSH is being seen for an annual [...] Referred By Contac t Referred To Contact Radiology Diagnoses PVC (premature ventricular contraction) 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 Ventricular arrhythmia Abnormal electrocardiogram (ECG) (EKG) Procedures Nuclear Stress Test Nuclear Stress Test CHG MYOCARDIAL SPECT MULTIPLE STUDIES Missy Khoury MD [address] [place] [address] Referral ID Status Reason Start Date Expiration Date Visits Requested Visits Authorized [id number] Authorized Perform Procedure 01/13/2024 01/12/2025 5 5 Specialty Diagnoses / Procedures Referred By Contac t Referred To Contact Cardiology Diagnoses PVC (premature ventricular contraction) Paroxysmal atrial fibrillation (Multi) Procedures Holter Or Event [employer] Missy Khoury MD [address] [place] [address] Referral ID Status Reason Start Date Expiration Date V isits Requested Visits Authorized [id number] Pending Review 01/13/2024 01/12/2025 1 1 Specialty Diagnoses / Procedures Referred By Contac t Referred To Contact Cardiology Diagnoses PVC (premature ventricular contraction) Paroxysmal atrial fibrillation (Multi) Procedures Transthoracic Echo Complete IN ECHO TTHRC R-T 2D W/WOM-MODE COMPL SPEC&COLR D Missy Khoury MD [address] [place] [address] Referral ID Status Reason Start Date Expiration Date Visits Requested Visits Authorized [id number] Authorized Perform Procedure 01/13/2024 01/12/2025 1 1 Specialty Diagnoses / Procedures Referred By Contac t Referred To Contact Cardiology Diagnoses Paroxysmal atrial fibrillation (Multi) Procedures Follow Up In Cardiology Missy Khoury MD [address] [place] [address] Missy Khoury MD [address] [facility] [address] [place] [address] Referral ID Status Reason Start Date Expiration Date V isits Requested Visits Authorized [id number] Authorized 01/13/2024 01/12/2025 1 1 Specialty Diagnoses / Procedures Referred By Contac t Referred To Contact Diagnoses Paroxysmal atrial fibrillation (CMS/HCC) Procedures ECG 12 Lead Epifanio Camp MD [address] [place] [address] 2, [facility] [address] [place] [address] Referral ID Status Reason Start Date Expiration Date V isits Requested Visits Authorized [id number] Authorized 07/13/2023 07/12/2024 1 1 Specialty Diagnoses / Procedures Referred By Contac t Referred To Contact Cardiology Diagnoses Paroxysmal atrial fibrillation (CMS/HCC) Procedures Follow Up In Cardiology Epifanio Camp MD [address] [place] [address] 2, [facility] [address] [place] [address] Epifanio Camp MD [address] [place] [address] 2, [facility] [address] [place] [address] Referral ID Status Reason Start Date Expiration Date V isits Requested Visits Authorized [id number] Authorized 07/13/2023 07/12/2024 1 1 Additional Source Comments Care Teams (unrecognized sec tion and content) Team Status: Inactive Member Role Status Dates Nirav Bello , Primary Care Provider Active Shonna Sim , DO Family Provider Active Juan Ventura DO Attending Provider Active Team Status: Active Member Role Status Dates Shonna Sim , Family Provider Active Nirav Bello , Primary Care Provider Active Team Status: Inactive Member Role Status Dates Nirav Bello DO Primary Care Provider Active Shonna Sim , DO Family Provider Active Jj Garcia MD Attending Provider Active Property Specialist Relationship Specialty Start Date End Date Nirav Bello DO [address] [place] [address] PCP - General 05/24/99 Team Status: Inactive Member Role Status Dates Nirav Bello DO Primary Care Provider Active Start: September 13, 2023 End: September 13, 2023 NON STAFF Attending Provider Active Start: [facility] 2023 End: September 13, 2023 Property Specialist Relationship Specialty Start Date End Date Nirav Bello DO [address] [place] [id number] PCP - [employer] 05/24/20 Nirav Bello DO [address] [place] [id number] PCP - General Internal Medicine 11/10/22 Marianne Camp MD [address] [place] [address] Referring Physician Cardiology 05/12/23 Property Specialist Relationship Specialty Start Date End Date Nirav Bello DO [address] [place] [id number] PCP - [employer] 05/24/20 Nirav Bello DO [address] [place] [id number] PCP - General Internal Medicine 11/10/22 Marianne Camp MD [address] [place] [address] Referring Physician Cardiology 05/12/23 Property Specialist Relationship Specialty Start Date End Date Nirav Bello DO [address] [place] [id number] PCP - General 05/24/99 Property Specialist Relationship Specialty Start Date End Date Nirav Bello DO [address] [place] [address] PCP - General 05/24/99 Property Specialist Relationship Specialty Start Date End Date Nirav Bello DO [address] [place] [address] PCP - General 05/24/99 Property Specialist Relationship Specialty Start Date End Date Nirav Bello DO [address] [place] [address] PCP - General 05/24/99 Property Specialist Relationship Specialty Start Date End Date Nirav Bello DO [address] [place] [address] PCP - General 05/24/99 Property Specialist Relationship Specialty Start Date End Date Nirav Bello DO [address] [place] [address] PCP - General 05/24/99 Property Specialist Relationship Specialty Start Date End Date Nirav Bello DO [address] [place] [address] PCP - General 05/24/99 Property Specialist Relationship Specialty Start Date End Date Nirav Bello DO [address] [place] [address] PCP - [employer] 05/24/20 Nirav Bello DO [address] [place] [address] PCP - General Internal Medicine 11/10/22 Marianne Camp MD [address] [place] [address] Referring Physician Cardiology 05/12/23 Property Specialist Relationship Specialty Start Date End Date Nirav Bello DO [address] [place] [address] PCP - [employer] 05/24/20 Nirav Bello DO [address] [place] [address] PCP - General Internal Medicine 11/10/22 Marianne Camp MD [address] [place] [address] Referring Physician Cardiology 05/12/23 Property Specialist Relationship Specialty Start Date End Date Nirav Bello DO [address] [place] [address] PCP - [employer] 05/24/20 Nirav Bello DO [address] [place] [address] PCP - General Internal Medicine 11/10/22 Marianne Camp MD [address] [address] Referring Physician Cardiology 05/12/23 Property Specialist Relationship Specialty Start Date End Date Nirav Bello DO [address] [place] [address] PCP - [employer] 05/24/20 Nirav Bello DO [address] [place] [address] PCP - General Internal Medicine 11/10/22 Marianne Camp MD [address] [facility] [address] [place] [address] Referring Physician Cardiology 05/12/23 Goals (unrecognized section [...] section and content) DATE CREATED AUTHOR 07/15/2022 [facility] DATE CREATED AUTHOR AUTHOR'S ORGANIZ ATION 07/15/2022 [employer] DATE CREATED AUTHOR AUTHOR'S ORGANIZ ATION 09/10/2022 [facility] DATE CREATED AUTHOR AUTHOR'S ORGANIZ ATION 02/25/2024 [facility] DATE CREATED AUTHOR AUTHOR'S ORGANIZ ATION 03/16/2024 [facility] DATE CREATED AUTHOR AUTHOR'S ORGANIZ ATION 05/04/2024 [facility] DATE CREATED AUTHOR AUTHOR'S ORGANIZ ATION 07/02/2024 [facility] EPIC REASON FOR VISIT (unrecogniz ed section and content) Reason Comments Annual Exam Specialty Diagnoses / Procedures Referred By Katie t Referred To Contact Diagnoses Paroxysmal atrial fibrillation (CMS/HCC) Procedures ECG 12 Lead Epifanio Camp MD [address] [facility] [address] [place] [address] Referral ID Status Reason Start Date Expiration Date V isits Requested Visits Authorized [id number] Authorized 07/13/2023 07/12/2024 1 1 Reason Comments Follow-up Follow up after test ing Specialty Diagnoses / Procedures Referred By Katie t Referred To Contact Cardiology Diagnoses Paroxysmal atrial fibrillation (Multi) Procedures Follow Up In Cardiology Missy Khoury MD [address] [place] [address] Phone: tel: fax: Missy Khoury MD [address] [place] [address] Phone: tel: fax: Referral ID Status Reason Start Date Expiration Date V isits Requested Visits Authorized [id number] Authorized 01/13/2024 01/12/2025 1 1 Reason Comments Follow-up Add on Specialty Diagnoses / Procedures Referred By Katie bhat Referred To Contact Radiology Diagnoses PVC (premature ventricular contraction) 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 Ventricular arrhythmia Abnormal electrocardiogram (ECG) (EKG) Procedures Nuclear Stress Test Nuclear Stress Test CHG MYOCARDIAL SPECT MULTIPLE STUDIES Missy Khoury MD [address] [place] [address] Referral ID Status Reason Start Date Expiration Date Visits Requested Visits Authorized [id number] Authorized Perform Procedure 01/13/2024 01/12/2025 5 5 Specialty Diagnoses / Procedures Referred By Katie bhat Referred To Contact Cardiology Diagnoses PVC (premature ventricular contraction) Paroxysmal atrial fibrillation (Multi) Procedures Transthoracic Echo Complete IN ECHO TTHRC R-T 2D W/WOM-MODE COMPL SPEC&COLR D Missy Khoury MD [address] [place] [address] Referral ID Status Reason Start Date Expiration Date Visits Requested Visits Authorized [id number] Authorized Perform Procedure 01/13/2024 01/12/2025 1 1 Reason Comments Hospital Follow-up [facility] follow up 01/10/24 for hypertension. He was in the ER the previous week for a-fib. He was started on Abiraterone recently and his BP went up consistently in the 160s. He sees cardiology Thurs for the a-fib. Reason Comments Hospital Follow-up Pt presents hospital follow up at [facility] on 05/03 for hypertension. Pt states he BP still feels elevated, although he hasn't been checking he BP at home. Pt denies chest pain, SOB or blurry vision Reason Comments Excision FOR RECORDS PERTAINING TO PATIENTS WHO ARE [...] BE BASED ON THE PRIMARY CLINICAL RECORDS. [facility]. provides no warranty or guarantee of the accuracy or completeness of information in this document.
[2024-07-06 08:09] LABS: Alanine Aminotransferase 16 U/L (16-63); Albumin Globulin Ratio 1.2; Albumin Level 3.6 g/dL (3.4-5.0); Alkaline Phosphatase 48 U/L (46-116); Aspartate Amino Transferase 19 U/L (15-37); BUN Creatinine Ratio 18.9; Bilirubin Total 0.6 mg/dL (0.2-1.0); Calcium 8.8 mg/dL (8.5-10.1); Chloride 106 mmol/L (98-107); Estimated GFR (African America >60 (>=60 mL/min/1.73m^2); Estimated GFR (Non-African Ame 54 (>=60 mL/min/1.73m^2); Globulin 3.1 g/dL; Glucose 167 mg/dL (74-106); Sodium 143 mmol/L (136-145); Total Protein 6.7 g/dL (6.4-8.2)
[2024-07-06 08:19] LABS: Basophils Absolute Auto 0.1 10^3/uL (0.0-0.1); Basophils Percent Auto 1.2 % (0.2-2.0); Eosinophils Absolute Auto 0.4 10^3/uL (0.0-0.7); Eosinophils Percent Auto 4.6 % (0.9-7.0); Hematocrit 38.1 % (42.0-54.0); Hemoglobin 12.6 g/dL (14.0-18.0); Immature Granulocytes Abs Auto 0.04 10^3/uL (0.00-0.03); Immature Granulocytes Pct Auto 0.5 % (0.0-0.5); Lymphocytes Absolute Auto 2.3 10^3/uL (1.2-3.8); Lymphocytes Percent Auto 29.5 % (20.5-60.0); Mean Corpuscular HGB Conc 33.1 g/dL (29.9-35.2); Mean Corpuscular Volume 93.6 fL (80.0-94.0); Mean Platelet Volume 10.5 fL (9.5-13.5); Monocytes Absolute Auto 0.6 10^3/uL (0.3-0.8); Neutrophils Absolute Auto 4.5 10^3/uL (1.4-6.5); Neutrophils Percent Auto 57.2 % (43.0-75.0); Platelet Count 187 10^3/uL (150-450); Red Blood Count 4.07 10^6/uL (4.70-6.10); Red Cell Distribution Width 13.5 % (11.0-15.0); White Blood Count 7.8 10^3/uL (4.0-11.0)
[2024-07-06 08:48] LABS: Prostate Specific Antigen Dx 0.14 ng/mL (<=4.00)
[2024-07-07 04:07] LABS: Testosterone <3 ng/dL (264-916)
== END 2024-07-06 07:22 | disposition home or self-care (01) ==
LOC: LAB 07:22
PROVIDERS: PCP Internal Medicine; Visit Provider Urology
DX: C61 Malignant neoplasm of prostate (principal); Z19.1 Hormone sensitive malignancy status; C79.51 Secondary malignant neoplasm of bone
CPT/HCPCS: 36415; 80053; 84153; 84403; 85025

== ENCOUNTER 2024-07-25 14:00 | Outpatient (RCR) | payer MEDICARE, SELFPAY ==
[2024-07-25 14:00] VITALS: BP 182/83; PULSE 64; TEMP 36.9; O2SAT 93
[2024-07-25] MEDS: DENOSUMAB 120 MG/1.7 ML VIAL SQ (14:16)
== END 2024-07-26 08:19 | disposition home or self-care (01) ==
LOC: INF 14:00
PROVIDERS: PCP Internal Medicine
DX: C61 Malignant neoplasm of prostate (principal); C79.51 Secondary malignant neoplasm of bone
CPT/HCPCS: 96372; J0897

== ENCOUNTER 2024-08-01 20:49 | Emergency (ER) | payer MEDICARE, SELFPAY ==
[2024-08-01] VITALS (17 sets, daily range): BP systolic 142–177; BP diastolic 73–89; PULSE 57–68; TEMP 36.7; O2SAT 96–99; BMI 23.7
--- OUTSIDE RECORDS SUMMARY | 2024-08-01 20:55 | XMS_ITS | CCD ---
Author Organization [facility] Inform ion [facility] Care Team Providers Care Fisher Weir Name Role Phone Nirav Bello Primary Care Provider [phone] Ryan Negron Attending Provider Nirav Bello Unavailable Unavailable Unavailable DO Nirav Bello Primary Care Provider DO Juan Ventura Attending Provider [phone] Dr. Nirav Bello Primary Care Unav[place], [...] Attending Unavailable MISC, DR SHERIFF Consulting Unavailable AEC, DR RIOS Primary Care Unavailable ACE, DR RIOS Admitting Unavailable ACE, DR RIOS Attending Unavailable ACE, DR RIOS Consulting Unavailable ACE, DR RIOS Admitting Unavailable ACE, DR RIOS Attending Unavailable ACE, DR RIOS Consulting Unavailable DR NIRAV BELLO Primary Care Unavailable Jj Garcia Unavailable DO Nirav Bello Primary Care Provider MD Jj Garcia Attending Provider Nirav Bello DO Primary Care Provider [phone] DO Nirav Bello Primary Care Provider NON STAFF Attending Provider Unavailable MAIA, MISSY Referring Unavailable ACE, NIRAV A Primary Care Unavailable KHOURY, MISSY Referring Unavailable KELTON BELLOREY A Primary Care Unavailable Nirav Bello DO A Unavailable Nirav Bello DO Primary Care Provider [phone] Marianne Camp MD Unavailable Nirav Bello Primary Care Unavailable Miller Donald Attending Unavailable Miller Donald Admitting Unavailable EPIFANIO CAMP Attending Unavailable ACE, NIRAV A Primary Care Unavailable KHOURY, MISSY Attending Unavailable KELTON BELLOREY A Primary Care Unavailable KHOURY, MISSY Referring Unavailable ACE, NIRAV A Primary Care Unavailable KHOURY, MISSY Attending Unavailable KHOURY, MISSY Referring Unavailable ACE, NIRAV A Primary Care Unavailable PETLAURA MONTERO Attending Unavailable PETITTGrace, LAURA A Attending Unavailable PETITTI, LAURA A Attending Unavailable ACE, NIRAV A Attending Unavailable ACE, NIRAV A Referring Unavailable ACE, NIRAV A Referring Unavailable ACENIRAV PEREZ A Attending Unavailable PETITTI, LAURA A Attending Unavailable ACE, NIRAV A Attending Unavailable ACE, NIRAV A Attending Unavailable ACE, NIRAV A Referring Unavailable PETITTI, LAURA A Attending Unavailable ACE, NIRAV A Attending Unavailable ACE, NIRAV A Referring Unavailable Unavailable Unavailable Unavailable Allergies Allergy Classification Reported Allergen(s) Allergy Type Date of Onset Reaction(s) Facility (4 sources) Sulfonamides (Antibiotic); Translations: [Sulfa Drugs] Allergy to drug (finding) [facility] 250 DO Work Phone: (14 sources) Sulfonamides (Antibiotic); Translations: [SULFA (SULFONAMIDE ANTIBIOTICS)] Allergy to substance 2 [facility] (1 source) Sulfonamides (Antibiotic) Drug allergy (disorder) [facility] (20 sources) Substance with sulfonamide structure and antibacterial mechanism of action (substance) Drug allergy 4 [facility] (10 sources) abiraterone; Translations: [ABIRATERONE] Drug Allergy 4 Other [facility] (19 sources) Sulfanilamide Allergy to substance 3 Unknown [...] before or 1 hr after. Active amylase 006810 unt / lipase 52830 unt / protease 14998 unt delayed release oral capsule (20 sources) Start: 07-03-2024 pancrelipase, Iup-Gcly-Tbci, (Creon) 95136-13724 units capsule Indications: Malignant neoplasm of prostate (CMS/HCC) , Exocrine pancreatic insufficiency (CMS/HCC) TAKE 1 CAPSULE IN THE MORNING, 1 CAPSULE AT NOON AND 1 CAPSULE IN THE EVENING WITH MEALS 360 capsule 2 07/03/2024 Active Start: 01-17-2024 Creon 55298-37 000 units capsule Indications: Malignant neoplasm of prostate (CMS/HCC) , Exocrine pancreatic insufficiency (CMS/HCC) TAKE 1 CAPSULE IN THE MORNING, 1 CAPSULE AT NOON AND 1 CAPSULE IN THE EVENING WITH MEALS 300 capsule 1 01/17/2024 Active Start: 05-12-2023 pancrelipase, Bjb-Qbuq-Xpyt, (Creon) 28649-49946 units capsule Indications: Malignant neoplasm of prostate (CMS/HCC) , Exocrine pancreatic insufficiency (CMS/HCC) Take 1 capsule by mouth in the morning and 1 capsule at noon and 1 capsule in the evening. Take with meals. 270 capsule 1 05/12/2023 Active Start: 11-17-2022 take [address] [facility] three times daily lyovgq-fdfpmsvf-maljudt (Creon) 24,000-76,000 -120,000 unit capsule Take 1 capsule by mouth 3 times daily (morning, midday, late afternoon). 11/17/2022 Active Start: 11-17-2022 Creon 08749-76 000 UNIT 1 with each meal Orally [...] (Therapy completed) calcitriol 0.0005 mg oral capsule (19 sources) Vitamin D3 Analog take 1 capsule [...] Active cloNIDine hydrochloride 0.1 mg oral tablet (14 sources) Central alpha-2 Adrenergic Agonist Start: 05-22-2024 [...] (Reorder) 1.7 ml denosumab 70 mg/ml injection (12 sources) RANK Ligand Inhibitor inject 120 mg by subcutaneous injection every 30 days denosumab (Xgeva) 120 MG/1.7ML injection Inject 120 mg under the skin every 30 (thirty) days Active fluorouracil 50 mg/ml topical cream (20 sources) Nucleoside Metabolic Inhibitor Start: 04-26-20 fluorouracil (Efudex) 5 % cream Indications: Actinic keratosis Apply to affected areas bid x 14 days 40 g 1 04/26/2023 Active Efudex 5 % 1 vlad lication Externally Twice a day Active fluticasone propionate 0.05 mg/actuat metered dose nasal spray (12 sources) Corticosteroid Start: 05-10-2024 End: 05-10-2025 take [...] Active magnesium oxide 400 mg oral tablet (20 sources) Start: 01-13-2024 End: 01-12-2025 take 1 [...] tablet 3 02/15/2024 Active polyethylene glycol 3350 236766 mg / potassium chloride 2970 mg / sodium bicarbonate 6740 mg / sodium chloride 5860 mg / sodium sulfate 98208 mg powder for oral solution (2 sources) [...] mouth see administration instructions. 0 Active Vit C,Y-Ej-Frsai-Lutein-Zeax an (Preservision Areds-2) 250-90-40-1 mg Capsule (3 sources) Start: 12-05-2021 Vit C,L-La-Ogluz-Lutein-Zeax an (Preservision Areds-2) 250-90-40-1 mg Capsule Active 1 TAB PO Every morning December 05, 2021 12:47pm Start: 12-05-2021 Vit C,E-Zn-Utility Helicopter Repairer xx-Hkepmb-Ytrbpm (Preservision Areds-2) 250-90-40-1 mg Capsule Active 1 [...] ascorbic acid 226 mg / beta carotene 14406 unt / cuprous oxide 0.8 mg / [...] Onset: 11-05-2017 07-13-2023 Chronic Diverticulosis and diverticulitis (20 sources) Diverticulosis of intestine, part unspecified, without [...] insomnia; Translations: [Adjustment insomnia] Episodic Mood disorders (20 sources) Major depressive disorder, single episode, unspecified; Translations: [Depression] Onset: 05-06-2016 11-03-2022 Chronic Neoplasms of unspecified nature or uncertain behavior (4 sources) Neoplasm of skin; Translations: [Neoplasm of unspecified behavior of bone, soft tissue, and skin] 06-30-2024 Episodic Nonspecific chest pain (2 sources) Chest pain; Translations: [Chest pain, unspecified] 05-10-2024 Episodic Other aftercare (6 sources) Drug therapy finding; Translations: [Long-term (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 of anticoagulants] Episodic Other aftercare (10 sources) Long-term current use of anticoagulant; Translations: [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 of anticoagulants] Onset: 01-13-2024 05-01-2024 Episodic Other aftercare (2 sources) Removal of sutures done; Translations: [Encounter for removal of sutures] 07-14-2024 Episodic Other gastrointestinal disorders (20 sources) Irritable bowel syndrome; Translations: [Irritable bowel syndrome without diarrhea] Onset: 05-02-2015 11-03-2022 Chronic Other gastrointestinal disorders (1 source) [...] Translations: [Overweight] Episodic Other upper respiratory disease (14 sources) Sinusitis; Translations: [Allergic rhinitis, unspecified] Onset: [...] Documented Date Episodic/Chronic Deficiency and other anemia (20 sources) Anemia; Translations: [Anemia, unspecified] Onset: 11-04-2016 11-03-2022 Episodic Other aftercare (3 sources) Other 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 accountant (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; Translations: [OTH [facility] CURRENT DRUG THERAPY] Onset: 11-06-2021 Episodic Other aftercare (9 sources) Taking high risk medication; Translations: [Other 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 accountant (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] Onset: 01-13-2024 01-13-2024 Episodic Other aftercare (2 sources) 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 of anticoagulants; Translations: [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 of anticoagulants] Onset: 01-13-2024 Episodic Other screening for suspected conditions (not mental disorders or infectious disease) (6 sources) Abnormal electrocardiogram [ECG] [EKG]; Translations: [Electrocardiogram abnormal] Onset: 01-13-2024 Episodic Pancreatic disorders (not diabetes) (20 sources) Other specified diseases of pancreas; Translations: [...] Interpretation Reference Range Facility No Panel Informationon 07-26 Lesion length (cm): 1.1 Lesion width (cm): 1.1 Margin per side (cm): 0.2 Total excision diameter (cm): 1.5 Informed consent: discussed and consent obtained Informed consent comment: Risks and possible complications were discussed as noted on the consent form. The consent form was signed prior to the procedure. Timeout: patient name, date of , surgical site, and procedure verified Timeout comment: Patient and provider identified site. Site was marked. Photo was taken and shown to patient, patient verified this is the correct site. Procedure prep: Patient was prepped and draped in usual sterile fashion Prep type: Chlorhexidine Anesthesia: the lesion was anesthetized in a standard fashion Anesthesia comment: The local anesthetic was injected to create a field block at the site of the procedure. Anesthetic: 1% lidocaine w/ epinephrine 1-100,000 buffered w/ 8.4% NaHCO3 Instrument used comment: Dermablade Hemostasis achieved with: electrodesiccation Outcome: patient tolerated procedure well with no complications Post-procedure details: sterile dressing applied Dressing type: bandage Additional details: Amount of lidocaine used: 2.0 ml [facility] [employer] [facility] [employer] No Panel Informationon 07-14 Type of biopsy: tangential Informed consent: discussed and consent obtained Informed consent comment: The risks and benefits of the biopsy were discussed. Risks include but are not limited to bleeding, infection, scarring, pain, and nerve damage. An opportunity to ask questions prior to the procedure was permitted and all questions were answered. Patient was prepped and draped in usual sterile fashion: area cleansed with alcohol. Anesthesia: the lesion was anesthetized in a standard fashion Anesthetic: 1% lidocaine w/ epinephrine 1-100,000 buffered w/ 8.4% NaHCO3 Instrument used: DermaBlade Hemostasis achieved with: electrodesiccation Outcome: patient tolerated procedure well Outcome comment: The specimen was placed in a prelabeled formalin container to be sent for pathology Post-procedure details: sterile dressing applied and wound care instructions given Post-procedure details comment: Emphasized need to contact clinic for any signs of infection, uncontrollable bleeding, or complications. Dressing type: bandage Additional details: Photo taken Amount of lidocaine used: [facility].0 [facility] Type of biopsy: tangential Informed consent: discussed and consent obtained Informed consent comment: The risks and benefits of the biopsy were discussed. Risks include but are not limited to bleeding, infection, scarring, pain, and nerve damage. An opportunity to ask questions prior to the procedure was permitted and all questions were answered. Patient was prepped and draped in usual sterile fashion: area cleansed with alcohol. Anesthesia: the lesion was anesthetized in a standard fashion Anesthetic: 1% lidocaine w/ epinephrine 1-100,000 buffered w/ 8.4% NaHCO3 Instrument used: DermaBlade Hemostasis achieved with: electrodesiccation Outcome: patient tolerated procedure well Outcome comment: The specimen was placed in a prelabeled formalin container to be sent for pathology Post-procedure details: sterile dressing applied and wound care instructions given Post-procedure details comment: Emphasized need to contact clinic for any signs of infection, uncontrollable bleeding, or complications. Dressing type: bandage Additional details: Photo taken Amount of lidocaine used: 2.0 cc [facility] Type of biopsy: tangential Informed consent: discussed and consent obtained Informed consent comment: The risks and benefits of the biopsy were discussed. Risks include but are not limited to bleeding, infection, scarring, pain, and nerve damage. An opportunity to ask questions prior to the procedure was permitted and all questions were answered. Patient was prepped and draped in usual sterile fashion: area cleansed with alcohol. Anesthesia: the lesion was anesthetized in a standard fashion Anesthetic: 1% lidocaine w/ epinephrine 1-100,000 buffered w/ 8.4% NaHCO3 Instrument used: DermaBlade Hemostasis achieved with: electrodesiccation Outcome: patient tolerated procedure well Outcome comment: The specimen was placed in a prelabeled formalin container to be sent for pathology Post-procedure details: sterile dressing applied and wound care instructions given Post-procedure details comment: Emphasized need to contact clinic for any signs of infection, uncontrollable bleeding, or complications. Dressing type: bandage Additional details: Photo taken Amount of lidocaine used: 1.0 cc [facility] CMP (CMP) (FOR REMOTE C USE)on 07-06-2024 Albumin [Mass/Vol] 3.6 g/dL 3.4 - 5.0 g/dL [facility] ALBUMIN GLOBULIN RATIO 1.2 [facility] ALP [Catalytic activity/Vol] 48 U/L 46 - 116 U/L [facility] ALT [Catalytic activity/Vol] 16 U/L 16 - 63 U/L [facility] Anion gap [Moles/Vol] 11 mmol/L [facility] AST [Catalytic activity/Vol] 19 U/L 15 - 37 U/L [facility] Bilirubin [Mass/Vol] 0.6 mg/dL 0.2 - 1 .0 mg/dL [facility] Calcium [Mass/Vol] 8.8 mg/dL 8.5 - 10. 1 mg/dL [facility] Chloride [Moles/Vol] 106 mmol/L 98 - 10 7 mmol/L [facility] CO2 [Moles/Vol] 30 mmol/L 21.0 - 32.0 mmol/L [facility] Creatinine [Mass/Vol] 1.27 mg/dL 0.70 - 1.30 mg/dL [facility] GFR/1.73 sq M.predicted CKD-EPI (S/P/Bld) [Vol rate/Area] >60 >=60 mL/min/1.73m 2 [facility] Globulin (S) [Mass/Vol] 3.1 g/dL [facility] Glucose [Mass/Vol] 167 mg/dL High 74 - 106 mg/dL [facility] Interpretation and review of laboratory results Abnormal [facility] Potassium [Moles/Vol] 4 mmol/L 3.5 - 5.1 mmol/L [facility] Protein [Mass/Vol] 6.7 g/dL 6.4 - 8.2 g/dL [facility] Sodium [Moles/Vol] 143 mmol/L 136 - 145 mmol/L [facility] TBH EGFR-NON AF BAHAMIAN 54 Low >=60 mL/min/1.73m 2 [facility] Urea nitrogen [Mass/Vol] 24 mg/dL High 7.0 - 18.0 mg/dL [facility] Urea nitrogen/Creatinine [Mass ratio] 18.9 mg/mg [facility] No Panel Informationon 06-30 Complexity: Intermediate Final [...] uncontrollable bleeding, or complications. Dressing type: bandage [facility] Lesion length (cm): 1.2 Lesion width [...] 9.0 ml Estimated blood loss: <1.0 ml [facility] HbA1c (Bld) [Mass fraction]o n 05-10-2024 [facility] Laboratory - Hematology and Cell countson 05-10-2024 HbA1c (Bld) [Mass fraction] 7.6 % [facility] ALL CBC WITH AUTO DIFFon BASOPHILS ABSOLUTE AUTO 0.1 [facility] Basophils/100 WBC (Bld) 1.2 % 0.2 - 2.0 % [facility] Eosinophils/100 WBC (Bld) 4.3 % 0.9 - 7.0 % [facility] Erythrocyte distribution width (RBC) [Ratio] 13 % 11.0 - 15.0 % [facility] Hematocrit (Bld) [Volume fraction] 38.4 % Low 42.0 - 54.0 % [facility] Hemoglobin (Bld) [Mass/Vol] 12.4 g/dL Low 14.0 - 18.0 g/dL [facility] IMMATURE GRANULOCYTES ABS AUTO 0.03 [facility] Immature granulocytes/100 WBC (Bld) 0.5 % 0.0 - 0.5 % [facility] Interpretation and review of laboratory results Abnormal [facility] LYMPHOCYTES ABSOLUTE AUTO 2.1 [facility] Lymphocytes/100 WBC (Bld) 32.7 % 20.5 - 60.0 % [facility] MCH (RBC) [Entitic mass] 30.1 pg 25.9 - 34.0 pg [facility] MCHC (RBC) [Mass/Vol] 32.3 g/dL 29.9 - 35.2 g/dL [facility] MCV (RBC) [Entitic vol] 93.2 fL 80.0 - 94.0 fL [facility] MONOCYTES ABSOLUTE AUTO 0.5 [facility] Monocytes/100 WBC (Bld) 7 % 1.7 - 12.0 % [facility] NEUTROPHILS ABSOLUTE AUTO 3.5 [facility] Neutrophils/100 WBC (Bld) 54.3 % 43.0 - 75.0 % [facility] Platelet mean volume (Bld) [Entitic vol] 10.4 fL 9.5 - 13.5 fL [facility] EO # 0.3 [facility] PLT [address] [facility] RBC 4.12 Low [facility] WBC 6.5 [facility] ALL CBC WITH AUTO DIFFon BASOPHILS ABSOLUTE AUTO 0.1 [facility] Basophils/100 WBC (Bld) 1.2 % 0.2 - 2.0 % [facility] Eosinophils/100 WBC (Bld) 5.3 % 0.9 - 7.0 % [facility] Erythrocyte distribution width (RBC) [Ratio] 13.1 % 11.0 - 15.0 % [facility] Hematocrit (Bld) [Volume fraction] 38.3 % Low 42.0 - 54.0 % [facility] Hemoglobin (Bld) [Mass/Vol] 12.6 g/dL Low 14.0 - 18.0 g/dL [facility] IMMATURE GRANULOCYTES ABS AUTO 0.04 High [facility] Immature granulocytes/100 WBC (Bld) 0.5 % 0.0 - 0.5 % [facility] Interpretation and review of laboratory results Abnormal [facility] LYMPHOCYTES ABSOLUTE AUTO 2.2 [facility] Lymphocytes/100 WBC (Bld) 27.3 % 20.5 - 60.0 % [facility] MCH (RBC) [Entitic mass] 30.7 pg 25.9 - 34.0 pg [facility] MCHC (RBC) [Mass/Vol] 32.9 g/dL 29.9 - 35.2 g/dL [facility] MCV (RBC) [Entitic vol] 93.2 fL 80.0 - 94.0 fL [facility] MONOCYTES ABSOLUTE AUTO 0.6 N [facility] Monocytes/100 WBC (Bld) 7.3 % 1.7 - 12.0 % [facility] NEUTROPHILS ABSOLUTE AUTO 4.8 [facility] Neutrophils/100 WBC (Bld) 58.4 % 43.0 - 75.0 % [facility] Platelet mean volume (Bld) [Entitic vol] 10.6 fL 9.5 - 13.5 fL [facility] TBH EO # 0.4 [facility] PLT [address] [facility] RBC 4.11 Low [facility] WBC 8.1 [facility] TRANSTHORACIC ECHO (TTE) COM PLETEon 02-21-2024 TRANSTHORACIC ECHO (TTE) COMPLETE [address], [place] [address] TRANSTHORACIC ECHOCARDIOGRAM REPORT Patient Name: EPIFANIO Kim Physician: [id number] Marina Goldsmith MD Study Date: 02/21/2024 Ordering Provider: [id number] MISSY KHOURY MRN/PID: [id number] Fellow: Nurse: Date of /Age: 1 1940 / 83 years Inspector Screen Printing: Jyoti Gutiérrez RDCS, RVT Gender: M Additional Staff: Height: 180.34 cm Admit Date: Weight: 77.11 kg Admission Status: BSA / BMI: 1.97 m2 / 23.71 kg/m2 Department Location: [facility] Blood Pressure: 142 /84 mmHg Study Type: TRANSTHORACIC ECHO (TTE) COMPLETE Diagnosis/ICD: 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; Paroxysmal atrial fibrillation-I48.0 Indication: Diabetes, HTN, Hyperlipidemia, Murmur, Former Smoker, Prostate Cancer with Metastases, CKD-Stage III CPT Codes: Echo Complete w Full Doppler-87581 Study Detail: The following Echo studies were [...] mmHg PIEDV: 2.08 m/s PADP: 20.3 mmHg [id number] Marina Goldsmith MD Electronically signed on 02/21/2024 at 2:06:09 PM Final [facility] US Heart TransthoracicOrdere d By: Marina Goldsmith on 02-21-2024 Aortic Valve Area by Continuity of Peak Velocity 4.33 cm2 [facility] Work Phone: Aortic Valve Area by Continuity of VTI 3.61 cm2 [facility] Work Phone: AV mn grad 2.0 mmHg [facility] Work Phone: [phone] AV pk grad 4.8 mmHg [facility] Work Phone: [phone] AV pk farheen 1.10 m/s [facility] Work Phone: LV A4C EF 68.1 [facility] Work Phone: LV EF 60 % [facility] Work Phone: LVIDd 4.95 cm [facility] Work Phone: LVOT diam 2.60 cm [facility] Work Phone: MV avg E/e' ratio 6.90 [facility] Work Phone: MV E/A ratio 0.58 [facility] Work Phone: RVSP 29.4 mmHg [facility] Work Phone: [facility] Work Phone: Heart Transthoracicon [address], [address] [place] [address] TRANSTHORACIC ECHOCARDIOGRAM REPORT Patient Name: EPIFANIO Kim Physician: [id number] Marina Goldsmith MD Study Date: 02/21/2024 Ordering Provider: [id number] MISSY KHOURY MRN/PID: [id number] Fellow: Nurse: Date of /Age: 1 1940 / 83 years Inspector Screen Printing: Jyoti Gutiérrez RDCS, RVT Gender: M Additional Staff: Height: 180.34 cm Admit Date: Weight: 77.11 kg Admission Status: BSA / BMI: 1.97 m2 / 23.71 kg/m2 Department Location: [facility] Blood Pressure: 142 /84 mmHg Study Type: TRANSTHORACIC ECHO (TTE) COMPLETE Diagnosis/ICD: 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; Paroxysmal atrial fibrillation-I48.0 Indication: Diabetes, HTN, Hyperlipidemia, Murmur, Former Smoker, Prostate Cancer with Metastases, CKD-Stage III CPT Codes: Echo Complete w Full Doppler-[id number] Study Detail: The following Echo studies were [...] included)... Marina Shaffer MD - 02/21/[address], [address], [place] [address] TRANSTHORACIC ECHOCARDIOGRAM REPORT Patient Name: EPIFANIO WALSH Judy Physician: [id number] Marina Goldsmith MD Study Date: 02/21/2024 Ordering Provider: [id number] MISSY KHOURY MRN/PID: [id number] Fellow: Nurse: Date of /Age: 1 1940 / 83 years Inspector Screen Printing: Jyoti Gutiérrez RDCS, RVT Gender: M Additional Staff: Height: 180.34 cm Admit Date: Weight: 77.11 kg Admission Status: BSA / BMI: 1.97 m2 / 23.71 kg/m2 Department Location: [facility] Blood Pressure: 142 /84 mmHg Study Type: TRANSTHORACIC ECHO (TTE) COMPLETE Diagnosis/ICD: 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; Paroxysmal atrial fibrillation-I48.0 Indication: Diabetes, HTN, Hyperlipidemia, Murmur, Former Smoker, Prostate Cancer with Metastases, CKD-Stage III CPT Codes: Echo Complete w Full Doppler-[id number] Study Detail: The following Echo studies were [...] mmHg PIEDV: 2.08 m/s PADP: 20.3 mmHg [id number] Marina Goldsmith MD Electronically signed on 02/21/2024 at 2:06:09 PM Final [facility] Work Phone: QY Heart Perfusion W stress and W radionuclide [...] Clarissa Sanchez 02/07/2024 4:47 PM Dictation workstation: [id number] Interpreted By: Clarissa Sanchez, Lora Elaine STUDY: MYOCARDIAL PERFUSION STRESS TEST WITH EXERCISE Performing facility: [facility], [address] [place] [address], [address], [address] Provider: Missy Khoury MD, FACC PCP: Dr. Trang Bello Supervising provider: Marina Goldsmith MD INDICATION: Abnormal EKG; PVC Murmur HISTORY: Gender: M; Age: 83 y/o ; Height: HT 180.3 cm cm; Weight: WT 77.111 kg kg. Abnormal EKG; High Cholesterol; Diabetes; HTN; Arrhythmias; A-fib Quit smoking 34 years ago. COMPARISON: Previous nuclear testing completed at [facility]. ACCESSION NUMBER(S): [id number] ORDERING CLINICIAN: MISSY KHOURY TECHNIQUE: ONE DAY [...] PERFUSION STRESS TEST WITH EXERCISE Performing facility: [facility], [address] [place] [address], [address], [address] Provider: Missy Khoury MD, [facility] PCP: Dr. Trang Bello Supervising provider: Marina Goldsmith MD INDICATION: Abnormal EKG; PVC Murmur HISTORY: Gender: M; Age: 83 y/o ; Height: HT 180.3 cm cm; Weight: WT 77.111 kg kg. Abnormal EKG; High Cholesterol; Diabetes; HTN; Arrhythmias; A-fib Quit smoking 34 years ago. COMPARISON: Previous nuclear testing completed [id number] at [facility]. ACCESSION NUMBER(S): [id number] ORDERING CLINICIAN: MISSY KHOURY TECHNIQUE: ONE DAY [...] Clarissa Sanchez 02/07/2024 4:47 PM Dictation workstation: [id number] [facility] Work Phone: Radiology Study observation (narrative) [facility] Work Phone: NM Heart Perfusion W stress and W radionuclide IVOrdered By: Clarissa Sanchez on 02-07-2024 [facility] Work Phone: NUCLEAR STRESS TESTon 2023 NUCLEAR STRESS TEST Interpreted By: Clarissa Sanchez and Giannuzzi Michael STUDY: MYOCARDIAL PERFUSION STRESS TEST WITH EXERCISE Performing facility: [facility], [address], [address], [place], [place] [address] Provider: Missy Khoury MD, FACC PCP: Dr. Trang Bello Supervising provider: Marina Goldsmith MD INDICATION: Abnormal EKG; PVC Murmur HISTORY: Gender: M; Age: 83 y/o ; Height: HT 180.3 cm cm; Weight: WT 77.111 kg kg. Abnormal EKG; High Cholesterol; Diabetes; HTN; Arrhythmias; A-fib Quit smoking 34 years ago. COMPARISON: Previous nuclear testing completed [id number] at [facility]. ACCESSION NUMBER(S): [id number] ORDERING CLINICIAN: MISSY KHOURY TECHNIQUE: ONE DAY [...] Clarissa Sanchez 02/07/2024 4:47 PM Dictation workstation: [id number] [facility] Comment on above: Order Comment: Start with exercise, may switch to alfonso ALL BASIC METABOLIC PANELon 02-03-2024 Anion gap [Moles/Vol] 11.7 mmol/L [facility] Calcium [Mass/Vol] 8.3 mg/dL Low 8.5 - 10. 1 mg/dL [facility] Chloride [Moles/Vol] 107 mmol/L 98 - 10 7 mmol/L [facility] CO2 [Moles/Vol] 28.3 mmol/L 21.0 - 32.0 mmol/L [facility] Creatinine [Mass/Vol] 1.11 mg/dL 0.70 - 1.30 mg/dL [facility] GFR/1.73 sq M.predicted CKD-EPI (S/P/Bld) [Vol rate/Area] >60 60 - PINF [facility] Glucose [Mass/Vol] 164 mg/dL High 74 - 106 mg/dL [facility] Interpretation and review of laboratory results Abnormal [facility] Potassium [Moles/Vol] 4.0 mmol/L 3.5 - 5.1 mmol/L [facility] Sodium [Moles/Vol] 143 mmol/L 136 - 145 mmol/L [facility] TBH EGFR-NON AF BAHAMIAN >60 60 - PINF [facility] Urea nitrogen [Mass/Vol] 16.0 mg/dL 7.0 - 18.0 mg/dL [facility] Urea nitrogen/Creatinine [Mass ratio] 14.4 mg/mg [facility] PET psma initial tx sb-mton 09-13-2023 PET psma initial tx sb-mt [facility] [place] [address] Nuclear Medicine Report Signed Patient: Epifanio Walsh MR#: [id number] : 1940 Acct:[id number] Age/Sex: 83 / M ADM Date: 09/13/23 Loc: Room: Type: [facility] Attending Dr: NON STAFF Copies to: [...] Jordan Story M.D.09/13/2023 3:20 PM Dictation Location: [place] [address] Transcribed By: [facility] 09/13/23 1520 Dictated By: Jordan Story II, MD 09/13/23 1515 Signed By: 09/13/23 1520 Normal [facility] ECG 12 Leadon 07-13-2023 Sinus rhythm with frequent PVCs Otherwise normal EKG QTc 444 ms [facility] Work Phone: C reactive protein [Mass/vol ume] in Serum or PlasmaOrdered By: Jj Garcia on 11-26-2022 CRP [Mass/Vol] < 0.5 mg/dL 0.0-0.5 [facility] Creatinine [Mass/volume] in Serum or PlasmaOrdered By: Nirav Bello on 11-26-2022 Creatinine [Mass/Vol] 1.55 mg/dL 0.70-1.30 [facility] Erythrocyte sedimentation ra te by Photometric methodOrdered By: Jj Garcia on 11-26-2022 ESR Photometric method (Bld) [Velocity] 18 mm/hr 0-19 [facility] No Panel InformationOrdered By: Nirav Bello on 11-26-2022 Estimated GFR (CKD-EPI) 43.863 mL/Min [facility] Creatinine Clearance (Chem N/A [facility] Thyrotropin [Units/volume] i n Serum or PlasmaOrdered By: Jj Garcia on 11-26-2022 TSH Qn 1.23 m[IU]/L 0.45-5.33 [facility] Urea nitrogen [Mass/volume] in Serum or PlasmaOrdered By: Nirav Bello on 11-26-2022 Urea nitrogen [Mass/Vol] 31 mg/dL 7-25 [facility] PANCREATIC ELASTASE FECALon 09-08-2022 Pancreatic Elastase, Fecal 86 ug Elast./g Critically low >200 [facility] Comment on above: Result Comment: Re sults verified by repeat testing Severe Pancreatic Insufficiency: <100 Moderate Pancreatic Insufficiency: 100 - 200 Normal: >200 Performed By: #### L IPID, TSH, CMP #### [facility] [address] [place] [address] [address] Leesa Urbina CELIAC ANTIBODIES PROFILEon 09-04-2022 Deamidated Gliadin Abs, IgA 8 units Normal 0-19 [facility] Comment on above: Result Comment: Nega tive 0 - 19 Weak Positive 20 - 30 Moderate to Strong Positive >30 Performed By: #### C ELIACP #### [facility] [address] [address] [address] Leesa Urbina Deamidated Gliadin Abs, IgG 4 units Normal 0-19 [facility] Comment on above: Result Comment: Nega tive 0 - 19 Weak Positive 20 - 30 Moderate to Strong Positive >30 Performed By: #### C ELIACP #### [facility] [address] [place] [address] Dr. Leesa Urbina Endomysial Antibody IgA Negative Normal Negative [facility] Comment on above: Performed By: #### C ELIACP #### [facility] [address] [place] [address] Dr. Leesa Urbina Immunoglobulin A, Qn, Serum 143 mg/dL Normal 61-437 [facility] Comment on above: Performed By: #### C ELIACP #### [facility] [address] [place] [address] Dr. Leesa Urbina t-Transglutaminase (tTG) IgA <2 Normal 0-3 [facility] Comment on above: Result Comment: Nega tive 0 - 3 Weak Positive 4 - 10 Positive >10 . Tissue Transglutaminase (tTG) has been identified as the endomysial antigen. Studies have demonstr- ated that endomysial IgA antibodies have over 99% specificity for gluten sensitive enteropathy. Performed By: #### C ELIACP #### [facility] [address] [place] [address] Dr. Leesa Urbina t-Transglutaminase (tTG) IgG 6 U/mL Critically high 0-5 [facility] Comment on above: Result Comment: Nega tive 0 - 5 Weak Positive 6 - 9 Positive >9 Performed By: #### C ELIACP #### [facility] [address] [place] [address] Dr. Leesa Urbina CBC AUTO DIFFon 09-03-2022 BASO # 0.1 103/ul Normal 0.0-0.1 [facility] Comment on above: Performed By: #### L IPID, TSH, CMP #### [facility] [address] [place] [address] Dr. Leesa Urbina Basophils/100 WBC (Bld) 1.1 % Normal 0.2-2.0 [facility] Comment on above: Performed By: #### L IPID, TSH, CMP #### [facility] [address] [place] [address] Dr. Leesa Urbina EO # 0.6 103/ul Normal 0.0-0.7 [facility] Comment on above: Performed By: #### L IPID, TSH, CMP #### [facility] [address] [place] [address] Dr. Leesa Urbina Eosinophils/100 WBC (Bld) 7.9 % Critically high 0.9-7.0 [facility] Comment on above: Performed By: #### L IPID, TSH, CMP #### [facility] [address] [place] [address] Dr. Leesa Urbina Erythrocyte distribution width (RBC) [Ratio] 13.6 % Normal 11.0-15.0 [facility] Comment on above: Performed By: #### L IPID, TSH, CMP #### [facility] [address] [place] [address] Dr. Leesa Urbina Hematocrit (Bld) [Volume fraction] 34.4 % Critically low 42.0-54.0 [facility] Comment on above: Performed By: #### L IPID, TSH, CMP #### [facility] [address] [place] [address] Dr. Leesa Urbina Hemoglobin (Bld) [Mass/Vol] 11.4 g/dL Critically low 14.0-18.0 [facility] Comment on above: Performed By: #### L IPID, TSH, CMP #### [facility] [address] [place] [address] Dr. Leesa Urbina IG # 0.02 10e3/ul Normal 0.00-0.03 [facility] Comment on above: Performed By: #### L IPID, TSH, CMP #### [facility] [address] [place] [address] Dr. Leesa Urbina IG % 0.3 % Normal 0.0-0.5 [facility] Comment on above: Performed By: #### L IPID, TSH, CMP #### [facility] [address] [address] [address] Leesa Urbina LYMPH # 2.1 103/ul Normal 1.2-3.8 [facility] Comment on above: Performed By: #### L IPID, TSH, CMP #### [facility] [address] [place] [address] Dr. Leesa Urbina Lymphocytes/100 WBC (Bld) 28.1 % Normal 20.5-60.0 [facility] Comment on above: Performed By: #### L IPID, TSH, CMP #### [facility] [address] [address] [address] Leesa Urbina MANUAL DIFF REQ NO Normal [facility] Comment on above: Performed By: #### L IPID, TSH, CMP #### [facility] [address] [place] [address] Dr. Leesa Urbina MCH (RBC) [Entitic mass] 31.1 pg Normal 25.9-34.0 [facility] Comment on above: Performed By: #### L IPID, TSH, CMP #### [facility] [address] [place] [address] Dr. Leesa Urbina MCHC (RBC) [Mass/Vol] 33.1 g/dL Normal 29.9-35.2 [facility] Comment on above: Performed By: #### L IPID, TSH, CMP #### [facility] [address] [place] [address] Dr. Leesa Urbina MCV (RBC) [Entitic vol] 93.7 fL Normal 80.0-94.0 [facility] Comment on above: Performed By: #### L IPID, TSH, CMP #### [facility] [address] [place] [address] Dr. Leesa Urbina MONO # 0.4 103/ul Normal 0.3-0.8 [facility] Comment on above: Performed By: #### L IPID, TSH, CMP #### [facility] [address] [place] [address] Dr. Leesa Urbina Monocytes/100 WBC (Bld) 6.0 % Normal 1.7-12.0 [facility] Comment on above: Performed By: #### L IPID, TSH, CMP #### [facility] [address] [address] [address] Leesa Urbina NEUT # 4.2 103/ul Normal 1.4-6.5 [facility] Comment on above: Performed By: #### L IPID, TSH, CMP #### [facility] [address] [address] [address] Leesa Urbina Neutrophils/100 WBC (Bld) 56.6 % Normal 43.0-75.0 [facility] Comment on above: Performed By: #### L IPID, TSH, CMP #### [facility] [address] [place] [address] Dr. Leesa Urbina Platelet mean volume (Bld) [Entitic vol] 10.1 fL Normal 9.5-13.5 [facility] Comment on above: Performed By: #### L IPID, TSH, CMP #### [facility] [address] [address] [address] Leesa Urbina PLT 195 103/ul Normal 150-450 [facility] Comment on above: Performed By: #### L IPID, TSH, CMP #### [facility] [address] [place] [address] Dr. Leesa Urbina RBC 3.67 106/ul Critically low 4.70-6.10 [facility] Comment on above: Performed By: #### L IPID, TSH, CMP #### [facility] [address] [place] [address] Dr. Leesa Urbina WBC 7.3 103/ul Normal 4.0-11.0 [facility] Comment on above: Performed By: #### L IPID, TSH, CMP #### [facility] [address] [place] [address] Dr. Leesa Urbina FERRITINon 09-03-2022 Ferritin [Mass/Vol] 44.0 ng/mL Normal 26.0-388.0 [facility] Comment on above: Performed By: #### F ERR, FETIBC #### [facility] [address] [address] [address] Leesa Urbina IRON AND TIBCon 09-03-2022 % SATURATION 23.5 % Normal [facility] Comment on above: Performed By: #### F ERR, FETIBC #### [facility] [address] [place], [place] [address] Dr. Leesa Urbina Iron [Mass/Vol] 69.0 ug/dL Normal 65.0-175.0 [facility] Comment on above: Performed By: #### F ERR, FETIBC #### [facility] [address] [place], [place] [address] Dr. Leesa Urbina TIBC DIRECT 294.0 ug/dL Normal 250.0-450.0 [facility] Comment on above: Performed By: #### F ERR, FETIBC #### [facility] [address] [place], [place] [address] Dr. Leesa Urbina Office Visit (Cardiology)on 07-14-2022 Follow-up visit Diagnoses/Problems Assessed Anticoagulated (V58.61) (Z79.01) Benign essential hypertension (401.1) (I10) Hyperlipidemia (272.4) (E78.5) Paroxysmal atrial fibrillation (427.31) (I48.0) Diabetes mellitus (250.00) (E11.9) Body mass index (BMI) of 24.0 to 24.9 in adult (V85.1) (Z68.24) Never a smoker Orders SocHx: Never a smoker Tobacco Use Screening; Status:Complete; Done: [id number] Patient Instructions Please bring all medicines, vitamins, [...] negative for complaint. Vitals Vital Signs Recorded: [id number] 09:08AM Heart Rate68, L Radial Fykjcxkj886, LUE, Sitting Oesehkdfv12, LUE, Sitting Height5 ft 11 in Tswmai832 lb BMI Owucmjwsjd55.13 kg/m2 BSA Calculated1.98 Tobacco Useb) No PHQ-2 [...] Jul 14 2022 10:20AM EST (Author) Normal [facility] Tobacco Screening.on 023 Adult depression screening assessment No [facility] [address] DO Work Phone: Fall risk assessment a) No falls within the last year [facility] [address] DO Work Phone: Tobacco use status CP b) No [facility] DO Work Phone: CBC AUTO DIFFon 05-06-2022 BASO # 0.1 103/ul Normal 0.0-0.1 [facility] Comment on above: Performed By: #### C BC #### [facility] [address] [place] [address] Dr. Leesa Urbina Basophils/100 WBC (Bld) 1.4 % Normal 0.2-2.0 [facility] Comment on above: Performed By: #### C BC #### [facility] [address] [place] [address] Dr. Leesa Urbina EO # 0.4 103/ul Normal 0.0-0.7 [facility] Comment on above: Performed By: #### C BC #### [facility] [address] [place] [address] Dr. Leesa Urbina Eosinophils/100 WBC (Bld) 5.4 % Normal 0.9-7.0 [facility] Comment on above: Performed By: #### C BC #### [facility] [address] [place] [address] Dr. Leesa Urbina Erythrocyte distribution width (RBC) [Ratio] 13.3 % Normal 11.0-15.0 [facility] Comment on above: Performed By: #### C BC #### [facility] [address] [place] [address] Dr. Leesa Urbina Hematocrit (Bld) [Volume fraction] 35.8 % Critically low 42.0-54.0 [facility] Comment on above: Performed By: #### C BC #### [facility] [address] [place] [address] Dr. Leesa Urbina Hemoglobin (Bld) [Mass/Vol] 12.0 g/dL Critically low 14.0-18.0 [facility] Comment on above: Performed By: #### C BC #### [facility] [address] [place] [address] Dr. Leesa Urbina IG # 0.01 10e3/ul Normal 0.00-0.03 [facility] Comment on above: Performed By: #### C BC #### [facility] [address] [place] [address] Dr. Leesa Urbina IG % 0.2 % Normal 0.0-0.5 [facility] Comment on above: Performed By: #### C BC #### [facility] [address] [place] [address] Dr. Leesa Urbina LYMPH # 1.7 103/ul Normal 1.2-3.8 [facility] Comment on above: Performed By: #### C BC #### [facility] [address] [place] [address] Dr. Leesa Urbina Lymphocytes/100 WBC (Bld) 26.1 % Normal 20.5-60.0 [facility] Comment on above: Performed By: #### C BC #### [facility] [address] [place] [address] Dr. Leesa Urbina MANUAL DIFF REQ NO Normal [facility] Comment on above: Performed By: #### C BC #### [facility] [address] [place] [address] Dr. Leesa Urbina MCH (RBC) [Entitic mass] 31.0 pg Normal 25.9-34.0 [facility] Comment on above: Performed By: #### C BC #### [facility] [address] [place] [address] Dr. Leesa Urbina MCHC (RBC) [Mass/Vol] 33.5 g/dL Normal 29.9-35.2 [facility] Comment on above: Performed By: #### C BC #### [facility] [address] [place] [address] Dr. Leesa Urbina MCV (RBC) [Entitic vol] 92.5 fL Normal 80.0-94.0 [facility] Comment on above: Performed By: #### C BC #### [facility] [address] [place] [address] Dr. Leesa Urbina MONO # 0.4 103/ul Normal 0.3-0.8 [facility] Comment on above: Performed By: #### C BC #### [facility] [address] [place] [address] Dr. Leesa Urbina Monocytes/100 WBC (Bld) 6.5 % Normal 1.7-12.0 [facility] Comment on above: Performed By: #### C BC #### [facility] [address] [place] [address] Dr. Leesa Urbina NEUT # 4.0 103/ul Normal 1.4-6.5 [facility] Comment on above: Performed By: #### C BC #### [facility] [address] [place] [address] Dr. Leesa Urbina Neutrophils/100 WBC (Bld) 60.4 % Normal 43.0-75.0 [facility] Comment on above: Performed By: #### C BC #### [facility] [address] [address] [address] Leesa Urbina Platelet mean volume (Bld) [Entitic vol] 10.6 fL Normal 9.5-13.5 [facility] Comment on above: Performed By: #### C BC #### [facility] [address] [address] [address] Leesa Urbina PLT 185 103/ul Normal 150-450 [facility] Comment on above: Performed By: #### C BC #### [facility] [address] [address] [address] Leesa Urbina RBC 3.87 106/ul Critically low 4.70-6.10 [facility] Comment on above: Performed By: #### C BC #### [facility] [address] [address] [address] Leesa Urbina WBC 6.6 103/ul Normal 4.0-11.0 [facility] Comment on above: Performed By: #### C BC #### [facility] [address] [address] [address] Leesa Urbina GLYCOHEMOGLOBIN A1Con 2021 ADA RECOMMENDATION SEE BELOW Normal [facility] Comment on above: Result Comment: ADA RECOMMENDED LIMIT 4.0 - 6.0 ADA THERAPEUTIC TARGET < 7.0 ACTION SUGGESTED > 7.0 Performed By: #### A 1C #### [facility] [address] [address] [address] Leesa Urbina Glucose [Mass/Vol] 151 mg/dL Normal [facility] Comment on above: Performed By: #### A 1C #### [facility] [address] [address] [address] Leesa Urbina HbA1c (Bld) [Mass fraction] 6.9 % Critically high 4.5-6.2 [facility] Comment on above: Performed By: #### A 1C #### [facility] [address] [address] [address] Leesa Urbina LIPID PROFILEon 05-06-2022 CHOL-HDL RATIO NORM SEE BELOW Normal [facility] Comment on above: Result Comment: 3.3 - 4.4 LOW RISK 4.4 - 7.1 AVERAGE RISK 7.1 - 11.0 MODERATE RISK >11.0 HIGH RISK Performed By: #### L IPID, TSH, CMP #### [facility] [address] [address] [address] Leesa Urbina Cholesterol [Mass/Vol] 136 mg/dL Normal <=200 [facility] Comment on above: Performed By: #### L IPID, TSH, CMP #### [facility] [address] [address] [address] Leesa Urbina Cholesterol in HDL [Mass/Vol] 62 mg/dL Critically high 40-60 [facility] Comment on above: Performed By: #### L IPID, TSH, CMP #### [facility] [address] [address] [address] Leesa Urbina Cholesterol in LDL [Mass/Vol] 53.0 mg/dL Normal [facility] Comment on above: Performed By: #### L IPID, TSH, CMP #### [facility] [address] [address] [address] Leesa Urbina Cholesterol.total/Kandy sterol in HDL [Mass ratio] 2.2 {ratio} Normal [facility] Comment on above: Performed By: #### L IPID, TSH, CMP #### [facility] [address] [address] [address] Leesa Urbina HDL NORMAL > or = 60 mg/dl - LO W CARDIOVASCULAR RISK <40 mg/dl - HIGH CARDIOVASCULAR RISK Normal [facility] Comment on above: Performed By: #### L IPID, TSH, CMP #### [facility] [address] [address] [address] Leesa Urbina LDL CALC NORMAL SEE BELOW Normal [facility] Comment on above: Result Comment: <100 mg/dl OPTIMAL 100 - 129 mg/dl NEAR OR ABOVE OPTIMAL 130 - 159 mg/dl BORDERLINE HIGH 160 - 189 mg/dl HIGH >190 mg/dl VERY HIGH Performed By: #### L IPID, TSH, CMP #### [facility] [address] [address] [address] Leesa Urbina Triglyceride [Mass/Vol] 105 mg/dL Normal <=150 T [facility] Comment on above: Performed By: #### L IPID, TSH, CMP #### [facility] [address] [address] [address] Leesa Urbina VLDL CALC 21.0 mg/dL Normal [facility] Comment on above: Performed By: #### L IPID, TSH, CMP #### [facility] [address] [address] [address] Leesa Urbina PROF 14(COMP METB)on 022 Albumin [Mass/Vol] 3.4 g/dL Normal 3.4-5.0 [facility] Comment on above: Performed By: #### L IPID, TSH, CMP #### [facility] [address] [address] [address] Leesa Urbina Albumin/Globulin [Mass ratio] 1.1 {ratio} Normal [facility] Comment on above: Performed By: #### L IPID, TSH, CMP #### [facility] [address] [address] [address] Leesa Urbina ALP [Catalytic activity/Vol] 77 U/L Normal 46-116 [facility] Comment on above: Performed By: #### L IPID, TSH, CMP #### [facility] [address] [address] [address] Leesa Urbina ALT [Catalytic activity/Vol] 12 U/L Critically low 16-63 [facility] Comment on above: Performed By: #### L IPID, TSH, CMP #### [facility] [address] [address] [address] Leesa Urbina Anion gap [Moles/Vol] 12.7 mmol/L Normal [facility] Comment on above: Performed By: #### L IPID, TSH, CMP #### [facility] [address] [address] [address] Leesa Urbina AST [Catalytic activity/Vol] 19 U/L Normal 15-37 [facility] Comment on above: Performed By: #### L IPID, TSH, CMP #### [facility] [address] [address] [address] Leesa Urbina Bilirubin [Mass/Vol] 0.4 mg/dL Normal 0.2-1.0 [facility] Comment on above: Performed By: #### L IPID, TSH, CMP #### [facility] [address] [place] [address] Dr. Leesa Urbina Calcium [Mass/Vol] 8.5 mg/dL Normal 8.5-10.1 [facility] Comment on above: Performed By: #### L IPID, TSH, CMP #### [facility] [address] [place] [address] Dr. Leesa Urbina Chloride [Moles/Vol] 107 mmol/L Normal 98-107 [facility] Comment on above: Performed By: #### L IPID, TSH, CMP #### [facility] [address] [place] [address] Dr. Leesa Urbina CO2 [Moles/Vol] 27.4 mmol/L Normal 21.0-32.0 [facility] Comment on above: Performed By: #### L IPID, TSH, CMP #### [facility] [address] [place] [address] Dr. Leesa Urbina Creatinine [Mass/Vol] 1.06 mg/dL Normal 0.70-1.30 [facility] Comment on above: Performed By: #### L IPID, TSH, CMP #### [facility] [address] [place] [address] Dr. Leesa Urbina EGFR-AF BAHAMIAN >60 Normal >=60 [facility] Comment on above: Performed By: #### L IPID, TSH, CMP #### [facility] [address] [place] [address] Dr. Leesa Urbina EGFR-NON AF BAHAMIAN >60 Normal >=60 [facility] [facility] Comment on above: Performed By: #### L IPID, TSH, CMP #### [facility] [address] [place] [address] Dr. Leesa Urbina Globulin (S) [Mass/Vol] 3.1 g/dL Normal [facility] Comment on above: Performed By: #### L IPID, TSH, CMP #### [facility] [address] [place] [address] Dr. Leesa Urbina Glucose [Mass/Vol] 171 mg/dL Critically high 74-106 [facility] Comment on above: Performed By: #### L IPID, TSH, CMP #### [facility] [address] [place] [address] Dr. Leesa Urbina Potassium [Moles/Vol] 4.1 mmol/L Normal 3.5-5.1 [facility] Comment on above: Performed By: #### L IPID, TSH, CMP #### [facility] [address] [place] [address] Dr. Leesa Urbina Protein [Mass/Vol] 6.5 g/dL Normal 6.4-8.2 [facility] Comment on above: Performed By: #### L IPID, TSH, CMP #### [facility] [address] [place] [address] Dr. Leesa Urbina Sodium [Moles/Vol] 143 mmol/L Normal 136-145 [facility] Comment on above: Performed By: #### L IPID, TSH, CMP #### [facility] [address] [place] [address] Dr. Leesa Urbina Urea nitrogen [Mass/Vol] 24.0 mg/dL Critically high 7.0-18.0 [facility] Comment on above: Performed By: #### L IPID, TSH, CMP #### [facility] [address] [place] [address] Dr. Leesa Urbina Urea nitrogen/Creatinine [Mass ratio] 22.6 mg/mg Normal [facility] Comment on above: Performed By: #### L IPID, TSH, CMP #### [facility] [address] [place] [address] Dr. Leesa Urbina Basophils Auto (Bld) [#/Vol] Ordered By: Juan Ventura on 12-05-2021 Basophils (Bld) [#/Vol] 0.1 10*3/uL 0.0-0.2 [facility] Basophils/100 WBC Auto (Bld) Ordered By: Juan Ventura on 12-05-2021 Basophils/100 WBC (Bld) 0.9 % F [facility] Blood hemoglobin measurement (mass/volume)Ordered By: Juan Ventura on 12-05-2021 Hemoglobin (Bld) [Mass/Vol] 12.4 g/dL 13.0-17.0 [facility] Blood leukocytes automated c ount (number/volume)Ordered By: Juan Ventura on 12-05-2021 WBC (Bld) [#/Vol] 7.0 10*3/uL 4.5-11.0 [facility] COVID-19 Positive/NegativeOr dered By: Juan Ventura on 12-05-2021 SARS-CoV-2 (COVID-19) N gene RENETTA+probe Ql (Resp) Negative Negative [facility] Comment on above: Testing for SARS-CoV -2 by RT-PCR This test was developed and its performance characteristics determined by [employer] and validated at the [facility] [...] on 12-05-2021 Creatinine [Mass/Vol] 1.28 mg/dL 0.64-1.27 [facility] Eosinophils Auto (Bld) [#/Vo l]Ordered By: Juan [...] 12-05-2021 MCHC (RBC) [Mass/Vol] 33.1 g/dL 32.5-35.6 [facility] MCV Auto (RBC) [Entitic vol] Ordered By: Juan Ventura on 12-05-2021 MCV (RBC) [Entitic vol] 93.1 fL 83.5-101 F [facility] Monocytes Auto (Bld) [#/Vol] Ordered By: Juan Ventura on 12-05-2021 Monocytes (Bld) [#/Vol] 0.5 10*3/uL 0.0-0.8 [facility] Monocytes/100 WBC Auto (Bld) Ordered By: Juan Ventura on 12-05-2021 Monocytes/100 WBC (Bld) 7.3 % F [facility] Neutrophils Auto (Bld) [#/Vo l]Ordered By: Juan [...] 12-05-2021 RBC (Bld) [#/Vol] 4.00 10*6/uL 3.90-5.60 [facility] Serum or plasma calcium fco urement (mass/volume)Ordered By: Juan Ventura on 12-05-2021 Calcium [Mass/Vol] 9.2 mg/dL 8.2-10.2 [facility] Serum or plasma chloride daniel surement (moles/volume)Ordered By: Juan Ventura on 12-05-2021 Chloride [Moles/Vol] 107 mmol/L 95-114 [facility] Serum or plasma glucose fco urement (mass/volume)Ordered By: Juan Ventura on 12-05-2021 Glucose [Mass/Vol] 117 mg/dL 70-100 [facility] Comment on above: ADA recommended refe rence range Random Glucose Reference Range is dependent on time and content of last meal. Glucose of more than 200 mg/dL in a nonstressed, ambulatory subject supports the diagnosis of Diabetes Mellitus. Serum or plasma potassium me asurement (moles/volume)Ordered By: Juan Ventura on 12-05-2021 Potassium [Moles/Vol] 4.6 mmol/L 3.5-5.1 [facility] Serum or plasma sodium measu rement (moles/volume)Ordered By: Juan Ventura on 12-05-2021 Sodium [Moles/Vol] 141 mmol/L 136-146 [facility] Serum or plasma total carbon dioxide measurement (moles/volume)Ordered By: Juan Ventura on 12-05-2021 CO2 [Moles/Vol] 26.2 mmol/L 22.0-30.0 [facility] Serum or plasma urea nitroge n measurement (mass/volume)Ordered By: Juan Ventura on 12-05-2021 Urea nitrogen [Mass/Vol] 23 mg/dL 9-23 [facility] CBC AUTO DIFFon 11-05-2021 BASO # 0.1 103/ul Normal 0.0-0.1 [facility] Comment on above: Performed By: #### C BC #### [facility] [address] [address] [address] Leesa Urbina Basophils/100 WBC (Bld) 0.8 % Normal 0.2-2.0 [facility] Comment on above: Performed By: #### C BC #### [facility] [address] [place] [address] Dr. Leesa Urbina EO # 0.4 103/ul Normal 0.0-0.7 [facility] Comment on above: Performed By: #### C BC #### [facility] [address] [place] [address] Dr. Leesa Urbina Eosinophils/100 WBC (Bld) 5.6 % Normal 0.9-7.0 [facility] Comment on above: Performed By: #### C BC #### [facility] [address] [place] [address] Dr. Leesa Urbina Erythrocyte distribution width (RBC) [Ratio] 13.4 % Normal 11.0-15.0 [facility] Comment on above: Performed By: #### C BC #### [facility] [address] [place] [address] Dr. Leesa Urbina Hematocrit (Bld) [Volume fraction] 36.1 % Critically low 42.0-54.0 [facility] Comment on above: Performed By: #### C BC #### [facility] [address] [place] [address] Dr. Leesa Urbina Hemoglobin (Bld) [Mass/Vol] 11.8 g/dL Critically low 14.0-18.0 [facility] Comment on above: Performed By: #### C BC #### [facility] [address] [place] [address] Dr. Leesa Urbina IG # 0.02 10e3/ul Normal 0.00-0.03 [facility] Comment on above: Performed By: #### C BC #### [facility] [address] [place] [address] Dr. Leesa Urbina IG % 0.3 % Normal 0.0-0.5 [facility] Comment on above: Performed By: #### C BC #### [facility] [address] [place] [address] Dr. Leesa Urbina LYMPH # 1.8 103/ul Normal 1.2-3.8 [facility] Comment on above: Performed By: #### C BC #### [facility] [address] [place] [address] Dr. Leesa Urbina Lymphocytes/100 WBC (Bld) 28.4 % Normal 20.5-60.0 [facility] Comment on above: Performed By: #### C BC #### [facility] [address] [place] [address] Dr. Leesa Urbina MANUAL DIFF REQ NO Normal [facility] Comment on above: Performed By: #### C BC #### [facility] [address] [place] [address] Dr. Leesa Urbina MCH (RBC) [Entitic mass] 30.7 pg Normal 25.9-34.0 [facility] Comment on above: Performed By: #### C BC #### [facility] [address] [place] [address] Dr. Leesa Urbina MCHC (RBC) [Mass/Vol] 32.7 g/dL Normal 29.9-35.2 [facility] Comment on above: Performed By: #### C BC #### [facility] [address] [place] [address] Dr. Leesa Urbina MCV (RBC) [Entitic vol] 94.0 fL Normal 80.0-94.0 [facility] Comment on above: Performed By: #### C BC #### [facility] [address] [place] [address] Dr. Leesa Urbina MONO # 0.5 103/ul Normal 0.3-0.8 [facility] Comment on above: Performed By: #### C BC #### [facility] [address] [place] [address] Dr. Leesa Urbina Monocytes/100 WBC (Bld) 8.1 % Normal 1.7-12.0 [facility] Comment on above: Performed By: #### C BC #### [facility] [address] [place] [address] Dr. Leesa Urbina NEUT # 3.5 103/ul Normal 1.4-6.5 [facility] Comment on above: Performed By: #### C BC #### [facility] [address] [address] [address] Leesa Urbina Neutrophils/100 WBC (Bld) 56.8 % Normal 43.0-75.0 [facility] Comment on above: Performed By: #### C BC #### [facility] [address] [address] [address] Leesa Urbina Platelet mean volume (Bld) [Entitic vol] 10.3 fL Normal 9.5-13.5 [facility] Comment on above: Performed By: #### C BC #### [facility] [address] [address] [address] Leesa Urbina PLT 179 103/ul Normal 150-450 [facility] Comment on above: Performed By: #### C BC #### [facility] [address] [place] [address] Dr. Leesa Urbina RBC 3.84 106/ul Critically low 4.70-6.10 [facility] Comment on above: Performed By: #### C BC #### [facility] [address] [address] [address] Leesa Urbina WBC 6.2 103/ul Normal 4.0-11.0 [facility] Comment on above: Performed By: #### C BC #### [facility] [address] [address] [address] Leesa Urbina GLYCOHEMOGLOBIN A1Con 2021 ADA RECOMMENDATION SEE BELOW Normal [facility] Comment on above: Result Comment: ADA RECOMMENDED LIMIT 4.0 - 6.0 ADA THERAPEUTIC TARGET < 7.0 ACTION SUGGESTED > 7.0 Performed By: #### L IPID, TSH, CMP #### [facility] [address] [address] [address] Leesa Urbina Glucose [Mass/Vol] 151 mg/dL Normal [facility] Comment on above: Performed By: #### L IPID, TSH, CMP #### [facility] [address] [address] [address] Leesa Urbina HbA1c (Bld) [Mass fraction] 6.9 % Critically high 4.5-6.2 [facility] Comment on above: Performed By: #### L IPID, TSH, CMP #### [facility] [address] [address] [address] Leesa Urbina LIPID PROFILEon 11-05-2021 CHOL-HDL RATIO NORM SEE BELOW Normal [facility] Comment on above: Result Comment: 3.3 - 4.4 LOW RISK 4.4 - 7.1 AVERAGE RISK 7.1 - 11.0 MODERATE RISK >11.0 HIGH RISK Performed By: #### L IPID, TSH, CMP #### [facility] [address] [address] [address] Leesa Urbina Cholesterol [Mass/Vol] 150 mg/dL Normal <=200 [facility] Comment on above: Performed By: #### L IPID, TSH, CMP #### [facility] [address] [address] [address] Leesa Urbina Cholesterol in HDL [Mass/Vol] 60 mg/dL Normal 40-60 [facility] Comment on above: Performed By: #### L IPID, TSH, CMP #### [facility] [address] [address] [address] Leesa Urbina Cholesterol in LDL [Mass/Vol] 70.8 mg/dL Normal [facility] Comment on above: Performed By: #### L IPID, TSH, CMP #### [facility] [address] [address] [address] Leesa Urbina Cholesterol.total/Kandy sterol in HDL [Mass ratio] 2.5 {ratio} Normal [facility] Comment on above: Performed By: #### L IPID, TSH, CMP #### [facility] [address] [address] [address] Leesa Urbina HDL NORMAL > or = 60 mg/dl - LO W CARDIOVASCULAR RISK <40 mg/dl - HIGH CARDIOVASCULAR RISK Normal [facility] Comment on above: Performed By: #### L IPID, TSH, CMP #### [facility] [address] [address] [address] Leesa Urbina LDL CALC NORMAL SEE BELOW Normal [facility] Comment on above: Result Comment: <100 mg/dl OPTIMAL 100 - 129 mg/dl NEAR OR ABOVE OPTIMAL 130 - 159 mg/dl BORDERLINE HIGH 160 - 189 mg/dl HIGH >190 mg/dl VERY HIGH Performed By: #### L IPID, TSH, CMP #### [facility] [address] [address] [address] Leesa Urbina Triglyceride [Mass/Vol] 96 mg/dL Normal <=150 [facility] Comment on above: Performed By: #### L IPID, TSH, CMP #### [facility] [address] [address] [address] Leesa Urbina VLDL CALC 19.2 mg/dL Normal [facility] Comment on above: Performed By: #### L IPID, TSH, CMP #### [facility] [address] [place] [address] Dr. Leesa Urbina MICROALB CREAT RATIO RANDOMo n 11-05-2021 mALB <1.3 Normal <=30.0 [facility] Comment on above: Performed By: #### L IPID, TSH, CMP #### [facility] [address] [address] [address] Leesa GAGEB CR RATIO 11.4 mg/g Normal 0.0-29.9 [facility] Comment on above: Performed By: #### L IPID, TSH, CMP #### [facility] [address] [place] [address] Dr. Leesa Urbina MALB CR RATIO RANGE SEE BELOW Normal [facility] Comment on above: Result Comment: NO M ICROALBUMINURIA 0-29 MG/G CLINICAL MICROALBUMINURIA 30-300 MG/G MACROALBUMINURIA >300 MG/G Performed By: #### L IPID, TSH, CMP #### [facility] [address] [address] [address] Leesa Urbina URINE CREAT 114.03 mg/dL Normal 20.00-300.00 [facility] Comment on above: Performed By: #### L IPID, TSH, CMP #### [facility] [address] [address] [address] Leesa Urbina PROF 14(COMP METB)on 022 Albumin [Mass/Vol] 2.3 g/dL Critically low 3.4-5.0 [facility] Comment on above: Performed By: #### L IPID, TSH, CMP #### [facility] [address] [address] [address] Leesa Urbina Albumin/Globulin [Mass ratio] 0.5 {ratio} Normal [facility] Comment on above: Performed By: #### L IPID, TSH, CMP #### [facility] [address] [address] [address] Leesa Urbina ALP [Catalytic activity/Vol] 77 U/L Normal 46-116 [facility] Comment on above: Performed By: #### L IPID, TSH, CMP #### [facility] [address] [address] [address] Leesa Urbina ALT [Catalytic activity/Vol] 16 U/L Normal 16-63 [facility] Comment on above: Performed By: #### L IPID, TSH, CMP #### [facility] [address] [address] [address] Leesa Urbina Anion gap [Moles/Vol] 13.8 mmol/L Normal [facility] Comment on above: Performed By: #### L IPID, TSH, CMP #### [facility] [address] [address] [address] Leesa Urbina AST [Catalytic activity/Vol] 15 U/L Normal 15-37 [facility] Comment on above: Performed By: #### L IPID, TSH, CMP #### [facility] [address] [address] [address] Leesa Urbina Bilirubin [Mass/Vol] 0.5 mg/dL Normal 0.2-1.0 [facility] Comment on above: Performed By: #### L IPID, TSH, CMP #### [facility] [address] [address] [address] Leesa Urbina Calcium [Mass/Vol] 8.7 mg/dL Normal 8.5-10.1 [facility] Comment on above: Performed By: #### L IPID, TSH, CMP #### [facility] [address] [address] [address] Leesa Urbina Chloride [Moles/Vol] 107 mmol/L Normal 98-107 [facility] Comment on above: Performed By: #### L IPID, TSH, CMP #### [facility] [address] [place] [address] Dr. Leesa Urbina CO2 [Moles/Vol] 26.2 mmol/L Normal 21.0-32.0 [facility] Comment on above: Performed By: #### L IPID, TSH, CMP #### [facility] [address] [address] [address] Leesa Urbina Creatinine [Mass/Vol] 1.25 mg/dL Normal 0.70-1.30 [facility] Comment on above: Performed By: #### L IPID, TSH, CMP #### [facility] [address] [place] [address] Dr. Leesa Urbina EGFR-AF BAHAMIAN >60 Normal >=60 [facility] Comment on above: Performed By: #### L IPID, TSH, CMP #### [facility] [address] [place] [address] Dr. Leesa Urbina EGFR-NON AF BAHAMIAN 55 mL/min/1.73m2 Critically low >=60 [facility] Comment on above: Performed By: #### L IPID, TSH, CMP #### [facility] [address] [place] [address] Dr. Leesa Urbina Globulin (S) [Mass/Vol] 4.3 g/dL Normal [facility] Comment on above: Performed By: #### L IPID, TSH, CMP #### [facility] [address] [place] [address] Dr. Leesa Urbina Glucose [Mass/Vol] 137 mg/dL Critically high 74-106 [facility] Comment on above: Performed By: #### L IPID, TSH, CMP #### [facility] [address] [place] [address] Dr. Leesa Urbina Potassium [Moles/Vol] 4.0 mmol/L Normal 3.5-5.1 [facility] Comment on above: Performed By: #### L IPID, TSH, CMP #### [facility] [address] [address] [address] Leesa Urbina Protein [Mass/Vol] 6.6 g/dL Normal 6.4-8.2 [facility] Comment on above: Performed By: #### L IPID, TSH, CMP #### [facility] [address] [address] [address] Leesa Urbina Sodium [Moles/Vol] 143 mmol/L Normal 136-145 [facility] Comment on above: Performed By: #### L IPID, TSH, CMP #### [facility] [address] [place] [address] Dr. Leesa Urbina Urea nitrogen [Mass/Vol] 24.0 mg/dL Critically high 7.0-18.0 [facility] Comment on above: Performed By: #### L IPID, TSH, CMP #### [facility] [address] [place] [address] Dr. Leesa Urbina Urea nitrogen/Creatinine [Mass ratio] 19.2 mg/mg Normal [facility] Comment on above: Performed By: #### L IPID, TSH, CMP #### [facility] [address] [place] [address] Dr. Leesa Urbina TSHon 11-05-2021 TSH 0.996 uIU/mL Normal 0.358-3.740 [facility] Comment on above: Performed By: #### L IPID, TSH, CMP #### [facility] [address] [place] [address] Dr. Leesa Urbina Tobacco Screening.on 022 Adult depression screening assessment No [facility] DO Work Phone: Fall risk assessment a) No falls within the last year [facility] DO Work Phone: Tobacco use status CP b) No [facility] 250 DO Work Phone: Vital Signs Date Time Vital Sign Value Performing Clinician Facility 05-10-2024 09:57-0500 Body height 175.3 cm Nirav Bello DO Work Phone: [facility] 05-10-2024 09:57-0500 Body mass index (BMI) [Ratio] 24.81 kg/m2 Niravata Bello DO Work Phone: [facility] 05-10-2024 09:57-0500 Body weight 76.2 kg Nirav Bello DO Work Phone: [facility] 05-10-2024 09:57-0500 Diastolic blood pressure 66 mm[Hg] Nirav Bello DO Work Phone: [facility] 05-10-2024 09:57-0500 Heart rate 72 /min Niravata Bello DO Work Phone: [facility] 05-10-2024 09:57-0500 SaO2% (BldA) [Mass fraction] 97 % Nirav Bello DO Work Phone: [facility] 05-10-2024 09:57-0500 Systolic blood pressure 136 mm[Hg] Nirav Bello DO Work Phone: [facility] 05-01-2024 14:07-0500 Diastolic blood pressure 94 mm[Hg] Missy Khoury MD Work Phone: [facility] 05-01-2024 14:07-0500 Systolic blood pressure 174 mm[Hg] Missy Khoury MD Work Phone: [facility] 05-01-2024 13:39-0500 Body height 180.3 cm Missy Khoury MD Work Phone: [facility] 05-01-2024 13:39-0500 Body mass index (BMI) [Ratio] 23.99 kg/m2 Missy Khoury MD Work Phone: [facility] 05-01-2024 13:39-0500 Body weight 78.02 kg Missy Khoury MD Work Phone: [facility] 05-01-2024 13:39-0500 Heart rate 48 /min Missy Khoury MD Work Phone: [facility] 02-21-2024 07:52-0400 Body height 180.[address] 02-21-2024 07:52-0400 Body mass index (BMI) [Ratio] 23.71 kg/m2 [place] [facility] 02-21-2024 07:52-0400 Body weight 77.[address] 02-21-2024 07:52-0400 Diastolic blood pressure 84 mm[Hg] [address] 02-21-2024 07:52-0400 Systolic blood pressure 142 mm[Hg] [address] 02-07-2024 09:44-0400 Diastolic blood pressure 86 mm[Hg] [address] 02-07-2024 09:44-0400 Heart rate 66 /min [address] 02-07-2024 09:44-0400 Systolic blood pressure 138 mm[Hg] [address] 01-13-2024 16:15-0400 Diastolic blood pressure 100 mm[Hg] Missy Khoury MD Work Phone: [facility] 01-13-2024 16:15-0400 Systolic blood pressure 162 mm[Hg] Missy Khoury MD Work Phone: [facility] 01-13-2024 15:24-0400 Body height 180.3 cm Missy Khoury MD Work Phone: [facility] 01-13-2024 15:24-0400 Body mass index (BMI) [Ratio] 23.71 kg/m2 Missy Khoury MD Work Phone: [facility] 01-13-2024 15:24-0400 Body weight 77.11 kg Missy Khoury MD Work Phone: [facility] 01-13-2024 15:24-0400 Heart rate 72 /min Missy Khoury MD Work Phone: [facility] 01-11-2024 09:54-0400 Body height 175.3 cm Nirav Bello Work Phone: [facility] 01-11-2024 09:54-0400 Body mass index (BMI) [Ratio] 24.22 kg/m2 Nirav Bello Work Phone: [facility] 01-11-2024 09:54-0400 Body weight 74.39 kg Nirav Bello Work Phone: [facility] 01-11-2024 09:54-0400 Heart rate 75 /min Nirav Bello Work Phone: [facility] 01-11-2024 09:54-0400 SaO2% (BldA) [Mass fraction] 97 % Nirav Bello DO Work Phone: [facility] 07-13-2023 08:34-0500 Body height 180.3 cm Epifanio Camp MD Work Phone: [facility] 07-13-2023 08:34-0500 Body mass index (BMI) [Ratio] 23.99 kg/m2 Epifanio Camp MD Work Phone: [facility] 07-13-2023 08:34-0500 Body weight 78.02 kg Epifanio Camp MD Work Phone: [facility] 07-13-2023 08:34-0500 Diastolic blood pressure 64 mm[Hg] Epifanio Camp MD Work Phone: [facility] 07-13-2023 08:34-0500 Heart rate 60 /min Epifanio Camp MD Work Phone: [facility] 07-13-2023 08:34-0500 Systolic blood pressure 108 mm[Hg] Epifanio Camp MD Work Phone: [facility] 11-17-2022 14:15-0400 Body height 180.34 cm Imad Asaad Other [place] [employer] Other 11-17-2022 14:15-0400 Body mass index (BMI) [Ratio] 23.71 kg/m2 Imad Asaad Other [place] [employer] Other 11-17-2022 14:15-0400 Body weight 77.11 kg Imad Asaad Other [facility] [employer] Other 11-17-2022 14:15-0400 Diastolic blood pressure 78 mm[Hg] Imad Asaad Other [facility] [employer] Other 11-17-2022 14:15-0400 Systolic blood pressure 127 mm[Hg] Imad Asaad Other [place] [employer] Other 07-14-2022 09:08-0500 Body height 180.34 cm Nirav Bello Work Phone: [facility] [employer] 250 DO Work Phone: 07-14-2022 09:08-0500 Body mass index (BMI) [Ratio] 24.13 kg/m2 Nirav Bello Work Phone: [facility] [employer] 250 DO Work Phone: 07-14-2022 09:08-0500 Body surface area Derived from formula 1.98 m2 Nirav Bello Work Phone: [facility] [employer] 250 DO Work Phone: 07-14-2022 09:08-0500 Body weight 78.47 kg Nirav eBllo Work Phone: [facility] [employer] 250 DO Work Phone: 07-14-2022 09:08-0500 Diastolic blood pressure 78 mm[Hg] Nirav Bello Work Phone: [facility] 250 DO Work Phone: 07-14-2022 09:08-0500 Heart rate 68 /min Nirav Bello Work Phone: [facility] 250 DO Work Phone: 07-14-2022 09:08-0500 Systolic blood pressure 124 mm[Hg] Nirav Bello Work Phone: [facility] 250 DO Work Phone: 07-03-2021 15:20-0500 Diastolic blood pressure 78 mm[Hg] Nirav Bello Work Phone: [facility] 250 DO Work Phone: 07-03-2021 15:20-0500 Heart rate 65 /min Nirav Bello Work Phone: [facility] 250 DO Work Phone: 07-03-2021 15:20-0500 Systolic blood pressure 136 mm[Hg] Nirav Bello Work Phone: [facility] 250 DO Work Phone: 07-03-2021 15:17-0500 Body height 180.34 cm Nirav Bello Work Phone: [facility] 250 DO Work Phone: 07-03-2021 15:17-0500 Body mass index (BMI) [Ratio] 24.97 kg/m2 Nirav Bello Work Phone: [facility] 250 DO Work Phone: 07-03-2021 15:17-0500 Body surface area Derived from formula 2.01 m2 Nirav Bello Work Phone: [facility] 250 DO Work Phone: 07-03-2021 15:17-0500 Body weight 81.19 kg Nirav Alicia Ace Work Phone: [facility] 250 DO Work Phone: 07-03-2021 15:17-0500 Diastolic blood pressure 80 mm[Hg] Nirav Alicia Ace Work Phone: [facility] 250 DO Work Phone: 07-03-2021 15:17-0500 Systolic blood pressure 151 mm[Hg] Nirav Alicia DowningAce Work Phone: [facility] 250 DO Work Phone: Encounters Encounter Date Encounter Type Care Provider Facility Start: 07-26-2024 End: 07-26-2024 Patient encounter procedure Luara Barrow MD Work Phone: [facility] Comment on above: 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, including hip (Primary Dx) Start: 07-26-2024 End: 07-26-2024 ambulatory LAURA BARROW Not Available Start: 07-26-2024 End: 07-26-2024 Bamboo flowsgeno Barrow MD Work Phone: [facility] Start: 07-26-2024 End: 07-26-2024 Bamboo flowsgeno Barrow MD Work Phone: [facility] Start: 07-14-2024 End: 07-14-2024 Bamboo flowsheet Laura Barrow MD Work Phone: [facility] Start: 07-14-2024 End: 07-14-2024 Bamboo flowsgeno Barrow MD Work Phone: [facility] Start: 07-14-2024 End: 07-14-2024 Patient encounter procedure Laura Barrow MD Work Phone: [facility] Comment on above: Neoplasm of unspecif ied behavior of bone, soft tissue, and skin (Primary Dx); Encounter for removal of sutures Start: 07-14-2024 End: 07-14-2024 ambulatory LAURA BARROW Not Available Start: 07-06-2024 End: 07-06-2024 Clinisync Result Encounter Generic External Data Provider [facility] External Department Unsolicited Start: 07-06-2024 End: 07-06-2024 Clinisync Result Encounter Generic External Data Provider [facility] External Department Unsolicited Start: 06-30-2024 End: 06-30-2024 Bamboo flowsgeno Barrow MD Work Phone: [facility] Start: 06-30-2024 End: 06-30-2024 Bamboo linda Barrow MD Work Phone: [facility] Start: 06-30-2024 End: 06-30-2024 Patient encounter procedure Laura Barrow MD Work Phone: [facility] Comment on above: Basal cell carcinoma (BCC) of skin of left upper extremity including shoulder (Primary Dx); Skin neoplasm Start: 06-30-2024 End: 06-30-2024 ambulatory LAURA BARROW Not Available Start: 05-10-2024 End: 05-10-2024 Bamboo flowsheet Nirav Bello DO Work Phone: [facility] Start: 05-10-2024 End: 05-10-2024 Bamboo flowsgeno Bello DO Work Phone: [facility] Start: 05-10-2024 End: 05-10-2024 Office outpatient visit 40 minutes Nirav Bello DO Work Phone: [facility] Comment on above: Allergic sinusitis ( [...] 25 minutes Missy Khoury MD Work Phone: [facility] Comment on above: Encounter to discuss test results (Primary Dx); Paroxysmal atrial fibrillation (Multi); Nonrheumatic mitral valve regurgitation; 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 Start: 04-27-2024 End: 04-27-2024 Nanette Barrow MD Work Phone: [facility] Start: 04-27-2024 End: 04-27-2024 Nanette Barrow MD Work Phone: [facility] Start: 04-27-2024 End: 04-27-2024 ambulatory LAURA [...] Department Unsolicited Start: 02-21-2024 End: 02-21-2024 ambulatory [facility] Start: 02-21-2024 End: 02-21-2024 Subsequent hospital visit by physician Sindi Hernadez Echo/Vasc Room 2 [facility] Comment on above: PVC (premature ventr icular contraction); Paroxysmal atrial fibrillation (Multi) Start: 02-07-2024 End: 02-07-2024 Subsequent hospital visit by physician Sindi Farr Nm 1 [facility] Comment on above: PVC (premature ventr icular contraction); 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; Ventricular arrhythmia; Abnormal electrocardiogram (ECG) (EKG) Start: 02-07-2024 End: 02-07-2024 ambulatory [facility] Start: 02-03-2024 End: 02-03-2024 Clinisync Result Encounter Generic External Data Provider [facility] Unsolicited Start: 02-03-2024 End: 02-03-2024 Clinisync Result Encounter Generic External Data Provider [facility] External Department Unsolicited Start: 01-13-2024 End: 01-13-2024 Office outpatient visit 25 minutes Missy Khoury MD Work Phone: [facility] Comment on above: Ventricular arrhythm ia (Primary Dx); PVC (premature ventricular contraction); Paroxysmal atrial fibrillation (Multi); 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; 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 Start: 01-11-2024 End: 01-11-2024 Office outpatient visit 25 minutes Nirav Bello DO Work Phone: [facility] Comment on above: Primary hypertension (CMS/HCC) (Primary Dx); PAF (paroxysmal atrial fibrillation) (CMS/HCC); Stage 3a chronic kidney disease (HCC) (CMS/HCC); Type 2 diabetes mellitus with other specified complication, without long-term current use of insulin (CMS/HCC) Start: 01-11-2024 End: 01-11-2024 ambulatory NIRAV BELLO Not Available Start: 11-15-2023 End: 11-15-2023 ambulatory NIRAV BELLO Not Available Start: 10-26-2023 End: 10-26-2023 ambulatory LAURA BARROW Not Available Start: 10-08-2023 End: 10-08-2023 ambulatory NIRAV BELLO Not Available Start: 10-07-2023 End: 10-07-2023 ambulatory NIRAV BELLO Not Available Start: 10-07-2023 End: 10-07-2023 ambulatory NIRAV BELLO Not Available Start: 09-13-2023 End: 09-13-2023 Patient encounter procedure DO Nirav Bello Work Phone: [facility]Pet Scan Work Phone: Start: 09-13-2023 End: 09-13-2023 ambulatory DO Nirav Bello Work Phone: [facility] Work Phone: Start: 07-13-2023 End: 07-13-2023 Office outpatient visit 25 minutes Epifanio Camp MD Work Phone: [facility] Comment on above: Benign essential hyp ertension (Primary Dx); Mixed hyperlipidemia; Paroxysmal atrial fibrillation (CMS/HCC); Former smoker Start: 07-13-2023 End: 07-13-2023 ambulatory EPIFANIO CAMP [facility] Ambulatory Start: 11-26-2022 End: 11-26-2022 ambulatory DO Nirav Bello Work Phone: [facility] Work Phone: Start: 11-26-2022 End: 11-26-2022 Patient encounter procedure DO Nirav Bello Work Phone: [facility]-CT Scan [place] Work Phone: Start: 11-17-2022 End: 11-17-2022 ambulatory Imad Asaad Other [employer] Other Start: 11-17-2022 Office outpatient ne w 45 minutes Imad Asaad [facility] Start: 11-17-2022 Telephone encounter Imad Asaaryan [facility] Start: 09-03-2022 End: 09-04-[address] NIRAV BELLO Facility:[facility]1 Start: 07-14-2022 Office outpatient vi sit 25 minutes Nirav Bello Work Phone: [facility] 250 DO Work Phone: Start: 07-14-[address] 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 Facility:[facility]1 Start: 11-05-2021 End: 11-06-[address] NIRAV BELLO Facility:[facility] Start: 07-03-2021 Office outpatient vi sit 25 minutes Nirav Bello Work Phone: [facility] 250 DO Work Phone: Start: 03-05-2021 Rx Renewal Marina lozada MD Work Phone: [facility] 250 DO Work Phone: Start: 07-12-2020 End: 07-12-2020 Discharged Recurring Nirav Bello [facility]-Covid Vaccine Procedures Date Procedure Procedure Detail Performing Clinician Start: 07-26-2024 SKIN EXCISION Laura morris MD Work Phone: Start: 07-14-2024 End: 07-14-2024 SKIN / NAIL BIOPSY Laura Barrow MD Work Phone: Start: 07-06-2024 [facility] CMP (CMP) (FOR [facility] USE) Generic External Data Provider Start: 06-30-2024 SKIN REPAIR Laura monahan MD [...] Start: 09-13-2023 Positron emission tomography DO Nirav Bello Work Phone: Start: 07-13-2023 ECG 12-LEAD EPIFANIO [...] By: #### L IPID, TSH, CMP #### [facility] [address] [address] [address] Leesa Urbina Start: 11-20-[address] DOCTOR BISHOP Comment on above: Performed By: #### P SAD #### [facility] [address] [address] [address] Leesa Urbina Appendectomy Nirav daniel Work Phone: Cataract surgery Nirav morris Work Phone: Colonoscopy Nirav daniel Work Phone: Comment on above: [id number] Jovanny Gigi; Operation on lip Nirav morris Work Phone: Prostatectomy Nirav mae Work Phone: Plan of Treatment Date Care Activity Detail Author Start: 12-24-2032 Screening for malignant neoplasm of colon [facility] Start: 03-16-2026 Glaucoma screening Diabetes: Retinopathy Screening [facility] Start: 11-08-2025 Screening for osteoporosis Bone Density Scan [facility] Start: 11-09-2024 End: 11-09-2024 Patient encounter procedure 11/09/2024 9:30 AM EDT Office Visit [facility] [address] [place] [address] Nirav Bello DO [address] [place] [address] [facility] Start: 10-31-2024 Urine screening for protein Diabetes: Urine Protein Screening [facility] Start: 10-26-2024 End: 10-26-2024 Patient encounter procedure 10/26/2024 9:35 AM EDT Office Visit [facility] [address] [place] [address] Laura Barrow MD [address] [place] [address] [facility] Start: 10-02-2024 End: 10-02-2024 Patient encounter procedure 10/02/2024 11:45 AM EDT Office Visit [address] [place] [address] Missy Khoury MD [address] [facility] [address] [place] [address] [facility] Start: 08-30-2024 End: 08-30-2024 Patient encounter procedure 08/30/2024 10:30 AM EDT Office Visit [facility] [address] [place] [phone] Laura Barrow MD [address] [place] [address] [facility] Start: 08-08-2024 Hemoglobin A1c measurement Diabetes: Hemoglobin A1C [facility] Start: 07-26-2024 End: 07-26-2024 Patient encounter procedure 07/26/2024 2:50 PM EST Office Visit [facility] [address] [place] [address] Laura Barrow MD [address] [facility] [address] [place] [address] Arrived [facility] Comment on above: Arrived Start: 07-18-2024 End: 07-18-2024 Patient encounter procedure [facility] Start: 07-14-2024 End: 07-14-2024 Patient encounter procedure [facility] Comment on above: Arrived Start: 06-30-2024 End: 06-30-2024 Patient encounter procedure [facility] Comment on above: Arrived Start: 05-22-2024 End: 05-22-2024 Patient encounter procedure 05/22/2024 8:30 AM EST Office Visit [facility] [address] [place] [phone] Nirav Bello DO [address] [place] [address] [facility] Start: 05-12-2024 Medicare Annual Wellness (AWV) Medicare Annual Wellness (AWV) [facility] Start: 05-10-2024 End: 05-10-2024 Patient encounter procedure 05/10/2024 9:30 AM EST Office Visit [facility] [address] [place] [phone] Nirav Bello DO [address] [place] [address] Other thrombophilia (CMS/HCC) [facility] Comment on above: Other thrombophilia (CMS/HCC) Start: 05-01-2024 End: 05-01-2024 Patient encounter procedure 05/01/2024 1:45 PM EST Office Visit [place] [id number] [place] [address] Missy Khoury MD [address] [place] [address] [address] [place] [address] [facility] Start: 04-27-2024 End: 04-27-2024 Patient encounter procedure [facility] Comment on above: Arrived Start: 02-28-2024 End: 02-28-2024 Patient encounter procedure 02/28/2024 3:30 PM EDT Office Visit [address] [place] [address] Missy Khoury MD [address] [place] [address] [address] [place] [address] [facility] Start: 02-21-2024 End: 02-21-2024 Patient encounter procedure 02/21/2024 7:45 AM EDT Appointment [facility] [address] [place] [address] [place] [address] [facility] Start: 02-07-2024 End: 02-07-2024 Professional / ancillary services management 02/07/2024 11:00 AM EDT Ancillary Procedure [facility] [address] [place] [address] [facility] Start: 02-07-2024 End: 02-07-2024 Patient encounter procedure 02/07/2024 10:15 AM EDT Appointment [facility] [address] [facility] [place] [address] Josh De La Cruz Start: 02-07-2024 End: 02-07-2024 Patient encounter procedure Josh De La Cruz Start: 01-27-2024 End: 01-12-2025 Basic metabolic 2000 panel - Serum or Plasma Basic Metabolic Panel Lab Routine Uncontrolled hypertension Expected: 01/27/2024 (Approximate), Expires: 01/12/2025 [facility] Work Phone: Comment on above: Expected: 01/27/2024 (Approximate), Expi res: 01/12/2025 Start: 01-23-2024 COVID-19 Vaccine () COVID-19 Vaccine () [facility] Start: 01-23-2024 Influenza vaccination Influenza Vaccine (#1) [facility] Start: 01-13-2024 End: 01-12-2025 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 PVC (premature ventricular contraction) Paroxysmal atrial fibrillation (Multi) Expected: 01/13/2024 (Approximate), Expires: 01/12/2025 [facility] Work Phone: Comment on above: Expected: 01/13/2024 (Approximate), Expi res: 01/12/2025 Start: 01-13-2024 End: 01-12-2026 NM Heart Perfusion W stress and W radionuclide IV Nuclear Stress Test Cardiac Nuclear Medicine Routine PVC (premature ventricular contraction) 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 Ventricular arrhythmia Abnormal electrocardiogram (ECG) (EKG) Expected: 01/13/2024 (Approximate), Expires: 01/12/2026 [facility] Work Phone: Comment on above: Expected: 01/13/2024 (Approximate), Expi res: 01/12/2026 Start: 01-13-2024 End: 01-12-2026 US Heart Transthoracic Transthoracic Echo Complete Echocardiography Routine PVC (premature ventricular contraction) Paroxysmal atrial fibrillation (Multi) Expected: 01/13/2024 (Approximate), Expires: 01/12/2026 [facility] Service Area Work Phone: Comment on above: Expected: 01/13/2024 (Approximate), Expi res: 01/12/2026 Start: 12-12-2023 Glaucoma screening Diabetes: Retinopathy Screening [facility] Start: 08-28-2023 COVID-19 Vaccine () COVID-19 Vaccine () [facility] Start: 07-13-2023 FUV, Provider: Epifanio Camp, Status: Pen, Time: 8:50 AM FUV, Provider: Epifanio Camp, Status: Pen, Time: 8:50 AM [facility] 250 DO Work Phone: Start: 02-05-2023 Hemoglobin A1c measurement Diabetes: Hemoglobin A1C [facility] Start: 07-14-2022 FUV, Provider: Epifanio Camp, Status: Pen, Time: 9:10 AM FUV, Provider: Epifanio Camp, Status: Pen, Time: 9:10 AM [facility] 250 DO Work Phone: Start: 06-24-2021 FUV, Provider: Epifanio Camp, Status: Pen, Time: 10:15 AM FUV, Provider: Epifanio Camp, Status: Pen, Time: 10:15 AM [facility] 250 DO Work Phone: Start: 2013 RSV High Risk: (Elderly (60+) or Population) (1 - 1-dose 75+ series) RSV High Risk: (Elderly (60+) or Population) (1 - 1-dose 75+ series) [facility] Start: 1998 RSV patients and/or patients aged 60+ years (1 - 1-dose 60+ series) RSV patients and/or patients aged 60+ years (1 - 1-dose 60+ series) [facility] Start: 1960 DTaP/Tdap/Td Vaccines (1 - Tdap) DTaP/Tdap/Td Vaccines (1 - Tdap) [facility] Start: 1957 Urine screening for protein Diabetes: Urine Protein Screening [facility] Start: 1948 Diabetic foot examination Diabetes: Foot Exam [facility] Start: 1948 Glaucoma screening Diabetes: Retinopathy Screening [facility] Start: 1938 Annual wellness visit Welcome to Medicare Visit [facility] Start: 1938 Hemoglobin A1c measurement Diabetes: Hemoglobin A1C [facility] Start: 1938 Lipid panel Lipid Panel [facility] Start: 1938 Medicare Annual Wellness (AWV) Medicare Annual Wellness (AWV) [facility] Start: 1938 Medicare Annual Wellness Visit Medicare Annual Wellness Visit (AWV) [facility] Start: 1938 Screening for malignant neoplasm of colon [facility] Dermatopathology exam Dermatopat hology exam Pathology and Cytology Timed Basal cell carcinoma (BCC) of skin of left upper extremity including shoulder Release Upon Ordering for 1 Occurrences starting 06/30/2024 [facility] [employer] Work Phone: Comment on above: Release Upon Ordering for 1 Occurrences starting 06/30/2024 Dermatopathology exam Dermatopat hology exam Pathology and Cytology Timed Neoplasm of unspecified behavior of bone, soft tissue, and skin Release Upon Ordering for 1 Occurrences starting 07/14/2024 [facility] [employer] Work Phone: Comment on above: Release Upon Ordering for 1 Occurrences starting 07/14/2024 Dermatopathology exam Dermatopat hology exam Pathology and Cytology Timed 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, including hip Release Upon Ordering for 1 Occurrences starting 07/26/2024 [facility] [employer] Work Phone: Comment on above: Release Upon Ordering for 1 Occurrences starting 07/26/2024 HIV 1+2 Ab+HIV1 p24 Ag [Presence] in Serum or Plasma by Immunoassay [facility] Immunizations Immunization Date Immunization Notes Care Provider Estefanía singh 03-25-2024 influenza virus vacc ine, unspecified formulation Laura Barrow MD Work Phone: [facility] 03-20-2023 Influenza, Seasonal, Quadrivalent, Adjuvanted Nirav Bello DO Work Phone: [facility] 03-20-2023 influenza virus vacc ine, unspecified formulation Nirav Bello DO Work Phone: [facility] 04-03-2022 Moderna COVID-19 Biv al Booster 50 MCG/0.5ML Intramuscular Suspension Nirav Bello Work Phone: [facility] 250 DO Work Phone: 03-10-2022 Fluad Quadrivalent 0 .5 ML Intramuscular Prefilled Syringe Nirav Bello Work Phone: [facility] 250 DO Work Phone: 12-19-2021 Moderna COVID-19 Vac cine 100 MCG/0.5ML Intramuscular Suspension Nirav Bello Work Phone: [place] [address] DO Work Phone: 03-20-2021 Moderna COVID-19 Vac cine 100 MCG/0.5ML Intramuscular Suspension Nirav Bello Work Phone: [facility] 03-19-2021 Moderna SARS-CoV-2 Booster Vaccination Nirav Bello DO Work Phone: [facility] 03-12-2021 influenza, high dose seasonal, preservative-free Nirav Bello Work Phone: [facility] 02-26-2021 Fluzone High-Dose Quadrivalent 0.7 ML Intramuscular Suspension Prefilled Syringe Nirav Bello Work Phone: [facility] 250 DO Work Phone: 07-12-2020 COVID-19 mRNA-1273 (Moderna) [facility] 06-15-2020 COVID-19 mRNA-1273 (Moderna) [facility] 03-15-2020 Fluad Quadrivalent 0 .5 ML Intramuscular Prefilled Syringe Nirav Blelo Work Phone: [facility] 02-24-2020 influenza, high dose seasonal, preservative-free Nirav Bello Work Phone: [facility] 250 DO Work Phone: 03-11-2019 zoster vaccine recombinant Nirav Bello Work Phone: [facility] 250 DO Work Phone: 03-01-2019 influenza, high dose seasonal, preservative-free Nirav Bello Work Phone: [facility] 250 DO Work Phone: 02-21-2019 influenza, high dose seasonal, preservative-free Nirav Bello Work Phone: [facility] 250 DO Work Phone: 12-22-2018 zoster vaccine recombinant Nirav Bello Work Phone: [facility] 250 DO Work Phone: 02-25-2018 influenza, high dose seasonal, preservative-free Nirav Bello Work Phone: [place] [address] DO Work Phone: 03-16-2017 influenza, high dose seasonal, preservative-free Nirav Bello Work Phone: [facility] Tamara DO Work Phone: 05-24-2016 pneumococcal conjuga te vaccine, 13 valent Nirav Bello Work Phone: [facility] 03-30-2016 influenza, high dose seasonal, preservative-free Nirav Bello DO Work Phone: [facility] 05-02-2015 seasonal influenza, intradermal, preservative free Nirav Bello DO Work Phone: [facility] 03-22-2015 influenza, high dose seasonal, preservative-free Nirav Bello Work Phone: [facility] 250 DO Work Phone: 12-14-2013 pneumococcal conjuga te vaccine, 13 valent Nirav Bello DO Work Phone: [facility] 10-10-2012 zoster vaccine, live Nirav Bello DO Work Phone: [facility] 05-24-2012 pneumococcal polysaccharide vaccine, 23 valent Nirav Vargas Ace Work Phone: [facility] 05-31-2009 novel influenza-H1N1 -09, preservative-free, injectable Nirva Bello Work Phone: [facility] 250 DO Work Phone: 07-23-2003 pneumococcal polysaccharide vaccine, 23 valent Nirav Bello DO Work Phone: [facility] Payers Date Payer Category Payer Self-pay [id number] 2023 Medicare (Managed Care) [employer] [facility] MEDIC[facility] [id number] 2022 Medicaid [employer] MEDICARE A DVANTAGE [id number] 2022 Medicare [id number] 1959 Private Health Insurance [facility] [id number] 1938 Unknown [id number] [id number]. 356 1938 Unknown [id number] 2.16.840.1.557047.3.579.2. 593 1938 Unknown [id number] 2.16.840.1.305104.3.579.2. 593 1938 Unknown [id number] 2.16.840.1.938181.3.579.2. 593 1938 Unknown [id number] 2.16.840.1.996988.3.579.2. 593 1938 Unknown [id number] 2.16.840.1.575365.3.579.2. 593 1938 Unknown [id number] 2.16.840.1.488178.3.579.2. 1246 1938 Unknown [id number] 2.16.840.1.265649.3.579.2. 1246 1938 Unknown [id number] 2.16.840.1.243333.3.579.2. 1246 1938 Unknown [id number] 2.16.840.1.144251.3.579.2. 1246 1938 Unknown [id number] 2.16.840.1.031556.3.579.2. 1246 1938 Unknown [id number] 2.16.840.1.205942.3.579.2. 1246 1938 Unknown [id number] 2.16.840.1.371280.3.579.2. 1244 1938 Unknown [id number] 2.16.840.1.059326.3.579.2. 1244 1938 Unknown [id number] 2.16.840.1.646954.3.579.2. 1244 1938 Unknown [id number]. 1244 1940 Unknown [id number] 2.16.840.1.766038.3.579.2. 1259 1940 Unknown [id number] 2.16.840.1.090830.3.579.2. 1259 1938 Unknown [id number] 2.16.840.1.344343.3.579.2. 125 1938 Unknown [id number] 2.16.840.1.768394.3.579.2. 1259 1938 Unknown [id number] 2.16.840.1.586666.3.579.2. 1259 1938 Unknown [id number] 2.16.840.1.444975.3.579.2. 1259 1938 Unknown [id number] 2.16.840.1.360172.3.579.2. 1259 1938 Unknown [id number] 2.16.840.1.602976.3.579.2. 1259 1938 Unknown [id number] 2.16.840.1.954678.3.579.2. 125 1938 Unknown [id number] 2.16.840.1.365078.3.579.2. 1259 1940 Unknown [id number] 2.16.840.1.888190.3.579.2. 1259 Medicare Medicare [id number] Private Health Insurance Self Pay [id number] [id number] Unknown [employer] Unknown [id number] [id number]. 531 Social History Date Type Detail Facility Tobacco smoking stat us [facility] Unknown if ever smoked [facility] Start: 1940 Sex Assigned At Male F [facility] Start: 11-10-2022 End: 07-13-2023 Never a smoker Never a smoker -[facility] [facility] DO Work Phone: Comment on above: 2-3 drinks a month; Start: 12-05-2021 End: 11-15-2023 Tobacco smoking status NHIS Ex-smoker (finding) [facility] Start: 11-10-2022 End: 07-13-2023 Sex Assigned At [facility] Other Start: 06-12-1956 End: 05-24-1989 History of tobacco use Current smoker [facility] Work Phone: Start: 06-12-1956 End: 05-24-1989 History of tobacco use Cigarette Smoker [facility] Work Phone: Start: 07-13-2023 End: 11-15-2023 Tobacco use and exposure Smokeless tobacco non-user [facility] Work Phone: Start: 07-13-2023 End: 01-13-2024 Alcohol intake Lifetime non-drinker (finding) [facility] Work Phone: Start: 1940 Sex Assigned At Not on file U [facility] Work Phone: Start: 07-03-2023 End: 05-01-2024 Exposure to SARS-CoV-2 (event) Not sure [facility] History of tobacco use Pipe Smoker [facility] History of tobacco use Passive smoker [facility] Start: 01-11-2024 End: 07-26-2024 Alcoholic beverage intake Current drinker of alcohol [...] Desired Activity /State Clinical Notes 07-14-2022 to 07-26-2024 Laura Barrow MD - 07/26/2024 2:50 PM Juan Francisco Barrow MD - 07/14/2024 8:30 AM Juan Francisco Barrow MD - 06/30/2024 8:30 AM Isi Bello DO - 05/10/2024 9:30 AM ESTPatient Instructions Note Date & Type Note Facility 07-26-2024 History of Present illness Narrative Images from the original note were not included. Subjective Epifanio Walsh is a 84 y.o. male who presents for the following: Follow-up. Location: right lower leg-lateral Date of biopsy: 07/14/2024 Diagnosis: Invasive squamous cell carcinoma All pertinent medical history, medications, and allergies were reviewed. General Exam: alert, oriented to person, place, and time, normal affect, well appearing Unaccompanied A focused exam completed based on patient reported problems, see below: 1. 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 Skin excision Lesion length (cm): 1.1 Lesion width (cm): 1.1 Margin per side (cm): 0.2 Total excision diameter (cm): 1.5 Informed consent: discussed and consent obtained Informed consent comment: Risks and possible complications were discussed as noted on the consent form. The consent form was signed prior to the procedure. Timeout: patient name, date of , surgical site, and procedure verified Timeout comment: Patient and provider identified site. Site was marked. Photo was taken and shown to patient, patient verified this is the correct site. Procedure prep: Patient was prepped and draped in usual sterile fashion Prep type: Chlorhexidine Anesthesia: the lesion was anesthetized in a standard fashion Anesthesia comment: The local anesthetic was injected to create a field block at the site of the procedure. Anesthetic: 1% lidocaine w/ epinephrine 1-100,000 buffered w/ 8.4% NaHCO3 Instrument used comment: Dermablade Hemostasis achieved with: electrodesiccation Outcome: patient tolerated procedure well with no complications Post-procedure details: sterile dressing applied Dressing type: bandage Additional details: Amount of lidocaine used: 2.0 ml Specimen A - Dermatopathology exam Differential Diagnosis: SCC Check Margins: yes Previous accession number: [id number] Shave excision completed today, see procedure note. Return to clinic prior to next scheduled visit for any signs or symptoms of recurrence, reviewed the signs and symptoms. Patient will be notified of results. Next Visit: as scheduled documented in this encounter [facility] 07-14-2024 History of Present illness Narrative Suture Removal Patient here for suture removal: No complaints of redness, drainage or swelling at site, compliant with wound care. Location: Left upper arm Procedure Performed: Excision Date of Procedure: 06/30/2024 Medications: none Lesions: Location: Left shoulder Duration: months Quality: denies pain, denies itch, denies bleeding Modifying factors: rubs on clothing, aggravated by picking Associated symptoms: non-healing, rough, scaly Treatments: none Lesion # 2: Location: right lower leg medial Duration: months Quality: denies pain, denies itch, denies bleeding Modifying factors: rubs on clothing, aggravated by picking Associated symptoms: enlarged, rough, scaly Treatments: none Lesion # 3: Location: right lower leg lateral Duration: months Quality: denies pain, denies itch, denies bleeding Modifying factors: rubs on clothing Associated symptoms: enlarged, rough, scaly Treatments: none All pertinent medical history, medications, and allergies were reviewed. General Exam: alert, oriented to person, place, and time, normal affect, well appearing Unaccompanied A focused exam completed based on patient reported problems, see below: 1. Encounter for removal of sutures Left Upper Arm Sutures are intact, Skin edges are well-approximated, Mild erythema along incision line, Suture Removal: Procedure: Sutures were removed without difficulty. Tincture of Benzoin was applied around site in preparation of steri-strips. Steri-strips were applied Post-Procedure instructions: Instructed to discontinue wound care., Instructed to keep steri strips on for at least 5-7 days., Pathology results discussed. Discussed with patient pathology report shows BCC has been transected at 1 edge. Discussed treatment options including re-excision, patient elected to observe for now. Patient instructed to notify office of any signs of recurrence prior to next scheduled visit. 2. Neoplasm of unspecified behavior of bone, soft tissue, and skin (3) Left Shoulder Hyperkeratotic papule Lesion biopsy Type of biopsy: tangential Informed consent: discussed and consent obtained Informed consent comment: The risks and benefits of the biopsy were discussed. Risks include but are not limited to bleeding, infection, scarring, pain, and nerve damage. An opportunity to ask questions prior to the procedure was permitted and all questions were answered. Patient was prepped and draped in usual sterile fashion: area cleansed with alcohol. Anesthesia: the lesion was anesthetized in a standard fashion Anesthetic: 1% lidocaine w/ epinephrine 1-100,000 buffered w/ 8.4% NaHCO3 Instrument used: DermaBlade Hemostasis achieved with: electrodesiccation Outcome: patient tolerated procedure well Outcome comment: The specimen was placed in a prelabeled formalin container to be sent for pathology Post-procedure details: sterile dressing applied and wound care instructions given Post-procedure details comment: Emphasized need to contact clinic for any signs of infection, uncontrollable bleeding, or complications. Dressing type: bandage Additional details: Photo taken Amount of lidocaine used: 1.0 cc Specimen A - Dermatopathology exam Differential Diagnosis: SCC Check Margins: yes Size of lesion: 1.2 x1.1 cm Right Lower Leg - medial Hyperkeratotic papule Lesion biopsy Type of biopsy: tangential Informed consent: discussed and consent obtained Informed consent comment: The risks and benefits of the biopsy were discussed. Risks include but are not limited to bleeding, infection, scarring, pain, and nerve damage. An opportunity to ask questions prior to the procedure was permitted and all questions were answered. Patient was prepped and draped in usual sterile fashion: area cleansed with alcohol. Anesthesia: the lesion was anesthetized in a standard fashion Anesthetic: 1% lidocaine w/ epinephrine 1-100,000 buffered w/ 8.4% NaHCO3 Instrument used: DermaBlade Hemostasis achieved with: electrodesiccation Outcome: patient tolerated procedure well Outcome comment: The specimen was placed in a prelabeled formalin container to be sent for pathology Post-procedure details: sterile dressing applied and wound care instructions given Post-procedure details comment: Emphasized need to contact clinic for any signs of infection, uncontrollable bleeding, or complications. Dressing type: bandage Additional details: Photo taken Amount of lidocaine used: 2.0 cc Specimen B - Dermatopathology exam Differential Diagnosis: SCC Check Margins: yes Size of lesion: 1.5 1.5 cm Right Lower Leg - lateral Hyperkeratotic papule Lesion biopsy Type of biopsy: tangential Informed consent: discussed and consent obtained Informed consent comment: The risks and benefits of the biopsy were discussed. Risks include but are not limited to bleeding, infection, scarring, pain, and nerve damage. An opportunity to ask questions prior to the procedure was permitted and all questions were answered. Patient was prepped and draped in usual sterile fashion: area cleansed with alcohol. Anesthesia: the lesion was anesthetized in a standard fashion Anesthetic: 1% lidocaine w/ epinephrine 1-100,000 buffered w/ 8.4% NaHCO3 Instrument used: DermaBlade Hemostasis achieved with: electrodesiccation Outcome: patient tolerated procedure well Outcome comment: The specimen was placed in a prelabeled formalin container to be sent for pathology Post-procedure details: sterile dressing applied and wound care instructions given Post-procedure details comment: Emphasized need to contact clinic for any signs of infection, uncontrollable bleeding, or complications. Dressing type: bandage Additional details: Photo taken Amount of lidocaine used: 1.0 cc Specimen C - Dermatopathology exam Differential Diagnosis: SCC Check Margins: yes Size of lesion: 1.1 x 1.1 cm Next Visit: pending biopsy results documented in this encounter [facility] 06-30-2024 History of Present illness Narrative Images [...] upper extremity including shoulder Left Upper Arm [place] macule at biopsy site. Skin excision Lesion [...] BCC Check Margins: Yes Previous accession number: [id number] 2. Skin neoplasm (2) Left shoulder Erythematous, crusted papule. Right lower leg Erythematous, crusted papule. Biopsies deferred until suture removal due to insurance restrictions. Follow up: 14 days for s/r documented in this encounter [facility] 05-10-2024 History of Present illness Narrative Images from the original note were not included. Epifanio Walsh is a 83 y.o. male presents with chief complaint of Hospital Follow-up (Pt presents hospital [facility] for hypertension. Pt states he [...] 10/01/2017 CATARACT EXTRACTION Right 10/28/2017 per in [place], [place]. COLONOSCOPY 2010 COLONOSCOPY 11/28/[address] [...] cloNIDine (CATAPRES) 0.1 mg, As needed Creon 31954-64809 units capsule TAKE 1 CAPSULE IN THE [...] (paroxysmal atrial fibrillation) (CMS/HCC) Exocrine pancreatic insufficiency ([facility]/HCC) Other Visit Diagnoses Allergic sinusitis - Primary [...] we did have an appointment with the oncology navigator at [facility] recently, blood pressure was stable at that time. [...] I told him if he continues with [place]coll pressure in the next two or three [...] and not read. documented in this encounter [facility] 05-01-2024 History of Present illness Narrative Most [...] Mixed hyperlipidemia 7. Paroxysmal atrial fibrillation 8. Ovp-jsgjhpp-olmaasucw diabetes 9. [id number] score of 4. 10. Long-term anticoagulation with rivaroxaban 11. 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 Former [...] : 6 months Provider Attestation - Britney Valerio LPN Scribe documentation All medical record entries made by the Scribe were at my direction and personally dictated by me. I have reviewed the chart and agree that the record accurately reflects my personal performance of the history, physical exam, discussion and plan. documented in this encounter [facility] Work Phone: 05-01-2024 Instructions Britney Salgado LPN [...] of your visit. documented in this encounter [facility] Work Phone: 01-13-2024 History of Present illness [...] Mixed hyperlipidemia 7. Paroxysmal atrial fibrillation 8. Wza-rhbfpax-aeyiztekj diabetes 9. [id number] score of 4. 10. Long-term anticoagulation with rivaroxaban 11. 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 High [...] discussion and plan. documented in this encounter [facility] Work Phone: 01-13-2024 Instructions Fay Edge CMA [...] of your visit. documented in this encounter [facility] Work Phone: 07-13-2023 History of Present illness [...] by mouth once daily., Disp: , Rfl: iojjda-mrmkzjef-srizwch (Creon) 24,000-76,000 -120,000 unit capsule, Take 1 [...] discussion and plan. documented in this encounter [facility] Work Phone: 07-13-2023 Instructions Dominick Suazo MA [...] of your visit. documented in this encounter [facility] Work Phone: 11-17-2022 Evaluation note Encounter Date Diagnosis Assessment Notes Oct, Change in bowel habits (ICD-10 - R19.4) Oct, Diverticulosis (ICD-10 - K57.90) Oct, IBS (irritable bowel syndrome) (ICD-10 - K58.9) Oct, Pancreatic insufficiency (ICD-10 - K86.89) [place] [facility] [employer] Other 02-21-2023 History of Present illness Narrative* [...] follow-up next year [facility] [address] DO Work Phone: Evaluation noteNo assessment information available [facility] Work Phone: Evaluation noteNo [facility] Other Evaluation note* Diagnosis Benign essential hypertension- Primary Essential hypertension, benign Mixed hyperlipidemia Paroxysmal atrial fibrillation (CMS/HCC) Atrial fibrillation Former smoker Personal history of tobacco use, presenting hazards to health documented in this encounter [facility] Work Phone: Evaluation note* Diagnosis Encounter to [...] without long-term current use of insulin (Multi) 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 Former smoker Personal history of tobacco use, presenting hazards to health Body mass index (BMI) of 23.0 to 23.9 in adult documented in this encounter [facility] Work Phone: Evaluation note* Diagnosis Ventricular arrhythmia- Primary Unspecified cardiac dysrhythmia PVC (premature ventricular contraction) Other premature beats Paroxysmal atrial fibrillation (Multi) Atrial fibrillation 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 High risk medication use Mixed hyperlipidemia Uncontrolled hypertension Former smoker Personal history of tobacco use, presenting hazards to health Type 2 diabetes mellitus without complication, without long-term current use of insulin (Multi) Stage 3a chronic kidney disease (Multi) Prostate cancer (Multi) Malignant neoplasm of prostate Abnormal electrocardiogram (ECG) (EKG) documented in this encounter [facility] Work Phone: Evaluation note* Diagnosis PVC (premature ventricular contraction) Other premature beats 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 Ventricular arrhythmia Unspecified cardiac dysrhythmia Abnormal electrocardiogram (ECG) (EKG) documented in this encounter [facility] Work Phone: Evaluation note* Diagnosis PVC (premature ventricular contraction) Other premature beats Paroxysmal atrial fibrillation (Multi) Atrial fibrillation documented in this encounter [facility] Work Phone: Evaluation note* Diagnosis Primary hypertension (CMS/HCC)- Primary Unspecified essential hypertension PAF (paroxysmal atrial fibrillation) (CMS/HCC) Atrial fibrillation Stage 3a chronic kidney disease (HCC) ([facility]/HCC) Type 2 diabetes mellitus with other specified complication, without long-term current use of insulin ([facility]/HCC) documented in this encounter [facility]* Diagnosis Allergic sinusitis- Primary Type 2 diabetes mellitus with other specified complication, without long-term current use of insulin (CMS/HCC) Primary hypertension (CMS/HCC) Unspecified essential hypertension PAF (paroxysmal atrial fibrillation) (CMS/HCC) Atrial fibrillation Exocrine pancreatic insufficiency (CMS/HCC) Other specified disease of pancreas Stage 3a chronic kidney disease (HCC) (CMS/HCC) Mixed hyperlipidemia (CMS/HCC) Mixed hyperlipidemia Chest pain, unspecified type documented in this encounter [facility] Healthcare[facility]* Diagnosis Basal cell carcinoma (BCC) of skin of left upper extremity including shoulder- Primary Skin neoplasm Neoplasm of unspecified nature of bone, soft tissue, and skin [facility] Diagnosis Neoplasm of unspecified behavior of bone, soft tissue, and skin- Primary Encounter for removal of sutures [facility] Diagnosis 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 10-28-17 Surgical History Mohs repair / left upper lip Hospitalization History see above [employer] Other History of Present illness NarrativeReturns in [...] we suggest continued therapy as before without change.-[facility] [address] DO Work Phone: Advance Directives No [...] MYOCARDIAL SPECT MULTIPLE STUDIES Missy Khoury MD [address] [address] Referral ID Status Reason Start Date Expiration Date Visits Requested Visits Authorized [id number] Authorized Perform Procedure 01/13/2024 01/12/2025 5 5 Specialty Diagnoses / Procedures Referred By Contac t Referred To Contact Cardiology Diagnoses PVC (premature ventricular contraction) Paroxysmal atrial fibrillation (Multi) Procedures 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 Missy Khoury MD [address] [address] Referral ID Status Reason Start Date Expiration Date V isits Requested Visits Authorized [id number] Pending Review 01/13/2024 01/12/2025 1 1 Specialty Diagnoses / Procedures Referred By Contac t Referred To Contact Cardiology Diagnoses PVC (premature ventricular contraction) Paroxysmal atrial fibrillation (Multi) Procedures Transthoracic Echo Complete LA ECHO TTHRC R-T 2D W/WOM-MODE COMPL SPEC&COLR D Missy Khoury MD [address] [address] Referral ID Status Reason Start Date Expiration Date Visits Requested Visits Authorized [id number] Authorized Perform Procedure 01/13/2024 01/12/2025 1 1 Specialty Diagnoses / Procedures Referred By Contac t Referred To Contact Cardiology Diagnoses Paroxysmal atrial fibrillation (Multi) Procedures Follow Up In Cardiology Missy Khoury MD [address] [address] Missy Khoury MD [address] [address] Referral ID Status Reason Start Date Expiration Date V isits Requested Visits Authorized [id number] Authorized 01/13/2024 01/12/2025 1 1 Specialty Diagnoses / Procedures Referred By Contac t Referred To Contact Diagnoses Paroxysmal atrial fibrillation (CMS/HCC) Procedures ECG 12 Lead Epifanio Camp MD [address] [place] [address], [address] [address] Referral ID Status Reason Start Date Expiration Date V isits Requested Visits Authorized [id number] Authorized 07/13/2023 07/12/2024 1 1 Specialty Diagnoses / Procedures Referred By Contac t Referred To Contact Cardiology Diagnoses Paroxysmal atrial fibrillation (CMS/HCC) Procedures Follow Up In Cardiology Epifanio Camp MD [address] [place] [address] 2, [address] [address] Epifanio Camp MD [address] [place] [address] 2, [address] [address] Referral ID Status Reason Start Date Expiration Date V isits Requested Visits Authorized [id number] Authorized 07/13/2023 07/12/2024 1 1 Additional Source Comments Care Teams (unrecognized sec tion and content) Team Status: Inactive Member Role Status Dates Nirav Bello , DO Primary Care Provider Active [...] Active Jj Garcia MD Attending Provider Active Fisher Weir Relationship Specialty Start Date End Date Nirav Bello DO [address] [facility] [address] [place] [address] PCP - General 05/24/99 Team Status: Inactive Member Role Status Dates Nirav Bello DO Primary Care Provider Active Start: September 13, 2023 End: September 13, 2023 NON STAFF Attending Provider Active Start: [facility] 2023 End: September 13, 2023 Fisher Weir Relationship Specialty Start Date End Date Nirav Bello DO [address] [facility] [address] [place] [address] PCP - [employer] 05/24/20 Nirav Bello DO [address] [facility] [address] [place] [address] PCP - General Internal Medicine 11/10/22 Marianne Camp MD [address] [place] [id number] Referring Physician Cardiology 05/12/23 Fisher Weir Relationship Specialty Start Date End Date Nirav Bello DO [address] [facility] [address] [place] [address] PCP - [employer] 05/24/20 Nirav Bello DO [address] [facility] [address] [place] [address] PCP - General Internal Medicine 11/10/22 Marianne Camp MD [address] [facility] [address] [place] [address] Referring Physician Cardiology 05/12/23 Fisher Weir Relationship Specialty Start Date End Date Nirav Bello DO [address] [place] [address] [place] [address] PCP - General 05/24/99 Fisher Weir Relationship Specialty Start Date End Date Nirav Bello DO [address] [place] [address] [place], [place] [address] PCP - General 05/24/99 Fisher Weir Relationship Specialty Start Date End Date Nirav Bello DO [address] [place] [address] PCP - General 05/24/99 Fisher Weir Relationship Specialty Start Date End Date Nirav Bello DO [address] [place] [address] PCP - General 05/24/99 Fisher Weir Relationship Specialty Start Date End Date Nirav Bello DO [address] [place] [address] PCP - General 05/24/99 Fisher Weir Relationship Specialty Start Date End Date Nirav Bello DO [address] [place] [address] PCP - General 05/24/99 Fisher Weir Relationship Specialty Start Date End Date Nirav Bello DO [address] [place] [address] PCP - General 05/24/99 Fisher Weir Relationship Specialty Start Date End Date Nirav Bello DO [address] [place] [address] PCP - [employer] 05/24/20 Nirav Bello DO [address] [place] [address] PCP - General Internal Medicine 11/10/22 Marianne Camp MD [address] [address] Referring Physician Cardiology 05/12/23 Fisher Weir Relationship Specialty Start Date End Date Nirav Bello DO [address] [place] [address] PCP - [employer] 05/24/20 Nirav Bello DO [address] [place] [address] PCP - General Internal Medicine 11/10/22 Marianne Camp MD [address] [address] Referring Physician Cardiology 05/12/23 Fisher Weir Relationship Specialty Start Date End Date Nirav Bello DO [address] [place] [address] PCP - [employer] 05/24/20 Nirav Bello DO [address] [place] [address] PCP - General Internal Medicine 11/10/22 Marianne Camp MD [address] [place] [address] Referring Physician Cardiology 05/12/23 Fisher Weir Relationship Specialty Start Date End Date Nirav Bello DO [address] [place] [address] PCP - [employer] 05/24/20 Nirav Bello DO [address] [place] [address] PCP - General Internal Medicine 11/10/22 Marianne Camp MD [address] [place] [address] Referring Physician Cardiology 05/12/23 Fisher Weir Relationship Specialty Start Date End Date Nirav Bello DO [address] [place] [address] PCP - [employer] 05/24/20 Nirav Bello DO [address] [place] [address] PCP - General Internal Medicine 11/10/22 Marianne Camp MD [address] [place] [address] Referring Physician Cardiology 05/12/23 Fisher Weir Relationship Specialty Start Date End Date Nirav Bello DO [address] [place] [address] PCP - [employer] 05/24/20 Nirav Bello DO [address] [place] [address] PCP - General Internal Medicine 11/10/22 Marianne Camp MD [address] [facility] [address] [place] [address] Referring Physician Cardiology 05/12/23 Goals (unrecognized section [...] and content) DATE CREATED AUTHOR 07/15/2022 [facility] DATE CREATED AUTHOR AUTHOR'S ORGANIZ ATION 07/15/2022 [employer] DATE CREATED AUTHOR AUTHOR'S ORGANIZ ATION 09/10/2022 [facility] DATE CREATED AUTHOR AUTHOR'S ORGANIZ ATION 02/25/2024 [facility] DATE CREATED AUTHOR AUTHOR'S ORGANIZ ATION 03/16/2024 [facility] DATE CREATED AUTHOR AUTHOR'S ORGANIZ ATION 05/04/2024 [facility] DATE CREATED AUTHOR AUTHOR'S ORGANIZ ATION 07/28/2024 [facility] EPIC REASON FOR VISIT (unrecogniz ed section and content) Reason Comments Annual Exam Specialty Diagnoses / Procedures Referred By Ktaie t Referred To Contact Diagnoses Paroxysmal atrial fibrillation (CMS/HCC) Procedures ECG 12 Lead Epifanio Camp MD [address] [facility] [address] [place] [address] Referral ID Status Reason Start Date Expiration Date V isits Requested Visits Authorized [id number] Authorized 07/13/2023 07/12/2024 1 1 Reason Comments Follow-up Follow up after test ing Specialty Diagnoses / Procedures Referred By Contac t Referred To Contact Cardiology Diagnoses Paroxysmal atrial fibrillation (Multi) Procedures Follow Up In Cardiology Missy Khoury MD [address] [place] [phone] Phone: tel: fax: Missy Khoury MD [address] [place] [phone] Phone: tel: fax: Referral ID Status Reason Start Date Expiration Date V isits Requested Visits Authorized [id number] Authorized 01/13/2024 01/12/2025 1 1 Reason Comments Follow-up Add on Specialty Diagnoses / Procedures Referred By Katie t Referred To Contact Radiology Diagnoses PVC (premature ventricular contraction) 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 Ventricular arrhythmia Abnormal electrocardiogram (ECG) (EKG) Procedures Nuclear Stress Test Nuclear Stress Test CHG MYOCARDIAL SPECT MULTIPLE STUDIES Missy Khoury MD [address] [place] [phone] Referral ID Status Reason Start Date Expiration Date Visits Requested Visits Authorized [id number] Authorized Perform Procedure 01/13/2024 01/12/2025 5 5 Specialty Diagnoses / Procedures Referred By Katie t Referred To Contact Cardiology Diagnoses PVC (premature ventricular contraction) Paroxysmal atrial fibrillation (Multi) Procedures Transthoracic Echo Complete LA ECHO TTHRC R-T 2D W/WOM-MODE COMPL SPEC&COLR D Missy Khoury MD [address] [place] [id number] Referral ID Status Reason Start Date Expiration Date Visits Requested Visits Authorized [id number] Authorized Perform Procedure 01/13/2024 01/12/2025 1 1 Reason Comments Hospital Follow-up Patient presents to[facility] a [place] [facility] follow up 01/10/24 for hypertension. He was in the ER the previous week for a-fib. He was started on Abiraterone recently and his BP went up consistently in the 160s. He sees cardiology Thurs for the a-fib. Reason Comments Hospital Follow-up Pt presents hospital follow up at [facility] on 05/03 for hypertension. Pt states he BP still feels elevated, although he hasn't been checking he BP at home. Pt denies chest pain, SOB or blurry vision Reason Comments Excision Reason Comments Follow-up FOR RECORDS PERTAINING TO PATIENTS WHO ARE [...] BE BASED ON THE PRIMARY CLINICAL RECORDS. [facility]. provides no warranty or guarantee of the accuracy or completeness of information in this document.
--- NOTE | 2024-08-01 21:41 | ECG_ITS ---
[facility] Test Date: 2024-08-01 Pat Name: DEV ALVAREZ Department: Room: - Gender: Male Medical Writer: : 1940 Requested By: [id number] Order Number: [id number] Reading MD: MARLENY HOUSTON M.D. Measurements Intervals [place] Rate: 61 P: 58 SC: 194 QRS: -3 QRSD: 86 T: 24 QT: 426 QTc: 429 Interpretive Statements 1100 Sinus rhythm 9110 normal ECG Compared to ECG 05/03/2024 20:16:07 Left ventricular hypertrophy no longer present T-wave abnormality no longer present Electronically Signed On 08-02-2024 9:28:13 EDT by MARLENY HOUSTON M.D.
[2024-08-01] MEDS: AMLODIPINE BESYLATE 5 MG TABLET PO (21:52)
[2024-08-01 22:16] LABS: Basophils Absolute Auto 0.1 10^3/uL (0.0-0.1); Eosinophils Absolute Auto 0.3 10^3/uL (0.0-0.7); Eosinophils Percent Auto 4.2 % (0.9-7.0); Hematocrit 33.3 % (42.0-54.0); Hemoglobin 10.8 g/dL (14.0-18.0); Immature Granulocytes Abs Auto 0.03 10^3/uL (0.00-0.03); Immature Granulocytes Pct Auto 0.5 % (0.0-0.5); Lymphocytes Absolute Auto 1.6 10^3/uL (1.2-3.8); Lymphocytes Percent Auto 26.1 % (20.5-60.0); Mean Corpuscular HGB Conc 32.4 g/dL (29.9-35.2); Mean Corpuscular Hemoglobin 30.5 pg (25.9-34.0); Mean Corpuscular Volume 94.1 fL (80.0-94.0); Mean Platelet Volume 10.2 fL (9.5-13.5); Monocytes Absolute Auto 0.4 10^3/uL (0.3-0.8); Monocytes Percent Auto 7.1 % (1.7-12.0); Neutrophils Absolute Auto 3.8 10^3/uL (1.4-6.5); Neutrophils Percent Auto 61.1 % (43.0-75.0); Platelet Count 160 10^3/uL (150-450); Red Blood Count 3.54 10^6/uL (4.70-6.10); Red Cell Distribution Width 13.3 % (11.0-15.0); White Blood Count 6.2 10^3/uL (4.0-11.0)
[2024-08-01 22:26] LABS: Alanine Aminotransferase 18 U/L (16-63); Albumin Globulin Ratio 1.1; Alkaline Phosphatase 46 U/L (46-116); Anion Gap 9.5; Aspartate Amino Transferase 17 U/L (15-37); Bilirubin Total 0.3 mg/dL (0.2-1.0); Calcium 8.7 mg/dL (8.5-10.1); Carbon Dioxide 29.1 mmol/L (21.0-32.0); Chloride 108 mmol/L (98-107); Estimated GFR (African America >60 (>=60 mL/min/1.73m^2); Estimated GFR (Non-African Ame >60 (>=60 mL/min/1.73m^2); Globulin 2.8 g/dL; Glucose 175 mg/dL (74-106); Potassium 4.6 mmol/L (3.5-5.1); Sodium 142 mmol/L (136-145); Total Protein 5.8 g/dL (6.4-8.2)
[2024-08-01 22:29] LABS: Troponin I High Sensitivity 22.3 pg/mL (4.0-76.1)
--- NOTE | 2024-08-01 22:37 | ED_ITS ---
HPI HPI - General Adult General Chief complaint: Recheck/Abnormal Lab/Rx Stated complaint: elevated blood pressure Time Seen by Provider: 08/01/24 20:52 Source: patient Mode of arrival: walk-in Limitations: no limitations History of Present Illness HPI narrative: Patient is an extremely pleasant 84-year-old male with a history of hypertension, bigeminy, atrial fibrillation, syncope, and a previous closed head injury who presents to the emergency department today for hypertension. The gentleman states that he has a history of hypertension and takes lisinopril 20 mg twice a day. He takes his meds every day and has been very compliant. Of recent however he has had intermittent spikes in his blood pressure. It was recommended today in the ED was clonidine 0.1 mg each time his blood pressure is higher than 160/90. The patient has talked with his sheet metal installer and his primary care physician about it but it has not been high consistently enough for them to address starting another medication so he is just been managing with intermittent clonidine boluses. He states that he is aware that he has an elevated blood pressure when he developed ringing in his ears, and occipital he adache and top of the neck tension. He also feels lightheaded. This is exactly what happened this evening. He started feeling the same symptoms. He checked his blood pressure at 17:30. At that time his pressure was 174/87. He took 1 clonidine. Then he checked it again at 20:30. His blood pressure elevated to 189/109. As he was very concerned, he presented to the emergency department for further evaluation and care. The gentleman does not have any chest pain or shortness of breath. 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 Related Data Home Medications ?Medication ?Instructions ?Recorded ?Confirmed rivaroxaban 20 mg tablet (Xarelto) 20 mg PO DAILY 09/29/23 08/01/24 atorvastatin 20 mg tablet 20 mg PO .once nightly 01/10/24 08/01/24 lisinopril 20 mg tablet 20 mg PO BID 01/10/24 08/01/24 metformin 500 mg tablet 500 mg PO .once nightly 01/10/24 08/01/24 metoprolol succinate 50 mg 50 mg PO Q12H 01/10/24 08/01/24 tablet,extended release 24 hr mirtazapine 15 mg tablet 15 mg PO .qhs 01/10/24 08/01/24 ggqbto-curuvcyw-iobjuzf 1 cap PO TIDWMEAL 05/03/24 08/01/24 24,000-76,000-120,000 unit capsule,delayed rel (Creon) clonidine HCl 0.1 mg tablet 0.1 mg PO Q12H PRN hypertensive 08/01/24 08/01/24 emergency Previous Rx's ?Medication ?Instructions ?Recorded amlodipine 5 mg tablet (Norvasc) 5 mg PO DAILY #7 tabs 08/01/24 Allergies Allergy/AdvReac Type Severity Reaction Status Date / Time Sulfa (Sulfonamide Allergy Severe Hives Verified 08/01/24 20:57 Antibiotics) Opioid HPI Opioid Management Most Recent Opioid Data: Last Pain Scale 1 08/01/24 21:15 08/01/24 Last ED Pain Assessment 08/01/24 21:15 Review of Systems ROS Narrative 10 Systems were reviewed, and unless not ed in the HPI, all other systems are reviewed, unremarkable, or noncontributory. [facility] Medical History Exocrine pancreatic insufficiency ?K86.81 - Exocrine pancreatic insufficiency (ICD-10) Social History Little interest or pleasure in doing things: not at all Feeling down, depressed, or hopeless: not at all Exam Narrative Exam Narrative: Prior to examining the patient, I have washed with hospital approved and provided Antiseptic Hand Oracle Programmer Analyst and have also applied gloves.? Prior to touching the patient, I asked for consent to examine the patient.? General: Alert and oriented, well nourished, mild distress. Eye: PERRL, EOMI, normal conjunctiva. HENT: Normocephalic, normal hearing, moist oral mucosa, no scleral icterus. Neck: Supple, non-tender, no carotid bruits, no JVD, no lymphadenopathy. Lungs: Clear to auscultation and percussion, non-labored respiration. No rhonchi, rales, wheezing Heart: Normal rate, regular rhythm, no murmur, gallop or edema. Abdomen: Soft, non-tender, non-distended, normal bowel sounds, no masses. Musculoskeletal: Normal range of motion and strength, no tenderness or swelling. Skin: Skin is warm, dry and pink, no rashes or lesions. Neurologic: Awake, alert, and oriented X3, CN II-XII intact. Psychiatric: Cooperative, appropriate mood and affect.? Following the conclusion of the examination, I have washed my hands thoroughly after removing examination gloves. Constitutional Vital Signs, click to edit/add: Last Vital Signs Temp 98.1 F 08/01/24 20:57 Pulse 64 08/01/24 22:46 Resp 18 08/01/24 22:46 BP 142/89 H 08/01/24 22:46 Pulse Ox 98 08/01/24 22:46 O2 Del Method Room Air 08/01/24 20:57 Course Course Hospital Course: The patient is a very pleasant 84-year-old gentleman who presented to the emergency room with hypertension. The plan was to do a CBC, CMP, and troponin as well as a EKG to make certain that the patient did not have any evidence of subendocardial ischemia. Patient does have evidence of anemia on his complete blood count. However, the anemia is noted the patient and his doctor. He is not having symptoms of lightheadedness, dizziness, chest pain or shortness of breath. The patient is not going to need a transfusion and this is something they are just observing. Reevaluation(s) Reevaluation #1: The patient. He is asymptomatic at this time. Patient would like to continue taking that blood pressure medication. He does have an appointment with his doctor on Wednesday at 10 AM. He will be able to take a diary of his blood pressures of we talked about. Time: 22:43 Vital Signs Vital signs: Vital Signs Temperature 98.1 F 08/01/24 20:57 Pulse Rate 68 08/01/24 20:57 Respiratory Rate 15 08/01/24 20:57 Blood Pressure 168/86 H 08/01/24 20:57 Pulse Oximetry 97 08/01/24 20:57 Oxygen Delivery Method Room Air 08/01/24 20:57 Temperature 98.1 F 08/01/24 20:57 Pulse Rate 64 08/01/24 22:46 Respiratory Rate 18 08/01/24 22:46 Blood Pressure 142/89 H 08/01/24 22:46 Pulse Oximetry 98 08/01/24 22:46 Oxygen Delivery Method Room Air 08/01/24 20:57 Medical Decision Making MDM Narrative Medical decision making narrative: In summary the patient is an extremely pleasant 84-year-old gentleman who prepares remarkable for his stated age. The patient has evidence of hypertension. He has been intermittently trying to manage it with clonidine when it spikes. Patient is interested in initiating treatment with Norvasc in addition to his present medication regimen. He will follow-up with his physician to see if this is a good medication for him and if he tolerates it well. Medical Records Medical records reviewed: Yes I reviewed the patient's medical records Lab Data Lab results reviewed: Yes I reviewed the patient's lab results Lab results narrative: CBC reveals mild anemia with a hemoglobin of 10.8. This is slightly lower than the patient's normal baseline level. He denies any bruising or active bleeding at this time. Comforts of metabolic panel reveals no kidney liver dysfunction. Troponin is normal. Labs: Lab Results 08/01/24 Range/Units 21:58 WBC 6.2 (4.0-11.0) 10^3/uL RBC 3.54 L (4.70-6.10) 10^6/uL Hgb 10.8 L (14.0-18.0) g/dL Hct 33.3 L (42.0-54.0) % MCV 94.1 H (80.0-94.0) fL MCH 30.5 (25.9-34.0) pg MCHC 32.4 (29.9-35.2) g/dL RDW 13.3 (11.0-15.0) % Plt Count 160 (150-450) 10^3/uL MPV 10.2 (9.5-13.5) fL Neut % (Auto) 61.1 (43.0-75.0) % Lymph % (Auto) 26.1 (20.5-60.0) % [place] % (Auto) 7.1 (1.7-12.0) % Eos % (Auto) 4.2 (0.9-7.0) % Baso % (Auto) 1.0 (0.2-2.0) % Neut # (Auto) 3.8 (1.4-6.5) 10^3/uL Lymph # (Auto) 1.6 (1.2-3.8) 10^3/uL [place] # (Auto) 0.4 (0.3-0.8) 10^3/uL Eos # (Auto) 0.3 (0.0-0.7) 10^3/uL Baso # (Auto) 0.1 (0.0-0.1) 10^3/uL Abs Immat Gran (auto) 0.03 (0.00-0.03) 10^3/uL Imm/Tot Granulo (auto) 0.5 (0.0-0.5) % Sodium 142 (136-145) mmol/L Potassium 4.6 (3.5-5.1) mmol/L Chloride 108 H (98-107) mmol/L Carbon Dioxide 29.1 (21.0-32.0) mmol/L Anion Gap 9.5 BUN 17.0 (7.0-18.0) mg/dL Creatinine 1.13 (0.70-1.30) mg/dL Est GFR ( Amer) >60 (>=60 mL/min/1.73m^2) Est GFR (Non-Af Amer) >60 (>=60 mL/min/1.73m^2) BUN/Creatinine Ratio 15.0 Glucose 175 H (74-106) mg/dL Calcium 8.7 (8.5-10.1) mg/dL Total Bilirubin 0.3 (0.2-1.0) mg/dL AST 17 (15-37) U/L ALT 18 (16-63) U/L Alkaline Phosphatase 46 (46-116) U/L Troponin I High Sens 22.3 (4.0-76.1) pg/mL Total Protein 5.8 L (6.4-8.2) g/dL Albumin 3.0 L (3.4-5.0) g/dL Globulin 2.8 g/dL Albumin/Globulin Ratio 1.1 ECG Data Attestation: I personally reviewed and interpreted this ECG as follows: Interpretation: Twelve-lead EKG: Twelve-lead EKG revealed a sinus rhythm with a ventricular rate of 61 bpm. The MA interval and QRS duration are within normal limits. QTc is not prolonged. [place] is normal. No evidence of ST segment elevation or depression she does have of infarction or ischemia. Discharge Plan Discharge Chief Complaint: Recheck/Abnormal Lab/Rx Clinical Impression: Hypertension Patient Disposition: Home, Self-Care Time of Disposition Decision: 22:40 Condition: Good Mode of Transportation: Private Vehicle Prescriptions / Home Meds: New amlodipine [Norvasc] 5 mg tablet 5 mg PO DAILY Qty: 7 0RF No Action Xarelto 20 mg tablet 20 mg PO DAILY metformin 500 mg tablet 500 mg PO .once nightly atorvastatin 20 mg tablet 20 mg PO .once nightly metoprolol succinate 50 mg tablet extended release 24 hr 50 mg PO Q12H lisinopril 20 mg tablet 20 mg PO BID mirtazapine 15 mg tablet 15 mg PO .qhs Creon 24,000-76,000 -120,000 unit capsule,delayed release(DR/EC) 1 cap PO TIDWMEAL clonidine HCl 0.1 mg tablet 0.1 mg PO Q12H PRN (Reason: hypertensive emergency) Print Language: Macedonian Instructions: Hypertension (ED) Additional Instructions: Thank you for trusting me with your care today. It was a pleasure to meet you. Please let your doctor know that we started you on Norvasc 5 mg once daily. Please take that in the morning. It can be taken with your lisinopril. Please check your blood pressure twice daily. Checking it about the same time every day. That way, when you follow-up with your doctor they will be able to get a good picture about what your blood pressures are doing. If you have any symptoms of course take your blood pressure then as well. Referrals: GABRIEL BELLO [Primary Care Provider] - 1 week Discharge Date/Time: 08/01/24 23:05
== END 2024-08-01 23:05 | disposition home or self-care (01) ==
PROVIDERS: Emergency Provider Emergency Medicine; PCP Internal Medicine
DX: I10 Essential (primary) hypertension (principal); I48.91 Unspecified atrial fibrillation; Z79.899 Other long term (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; D64.9 Anemia, unspecified
CPT/HCPCS: 36415; 80053; 84484; 85025; 93005; 99285

== ENCOUNTER 2024-08-22 13:59 | Outpatient (RCR) | payer MEDICARE, SELFPAY ==
[2024-08-22 14:18] VITALS: BP 120/67; PULSE 72; TEMP 36.2; O2SAT 95
[2024-08-22] MEDS: DENOSUMAB 120 MG/1.7 ML VIAL SQ (14:25)
== END 2024-08-23 08:03 | disposition home or self-care (01) ==
LOC: INF 13:59
PROVIDERS: PCP Internal Medicine
DX: C61 Malignant neoplasm of prostate (principal)
CPT/HCPCS: 96372; J0897

== ENCOUNTER 2024-08-25 07:44 | Outpatient (OUT) | payer MEDICARE, SELFPAY ==
[2024-08-25 08:18] LABS: Basophils Absolute Auto 0.1 10^3/uL (0.0-0.1); Basophils Percent Auto 1.1 % (0.2-2.0); Eosinophils Absolute Auto 0.4 10^3/uL (0.0-0.7); Hematocrit 37.9 % (42.0-54.0); Hemoglobin 12.4 g/dL (14.0-18.0); Immature Granulocytes Abs Auto 0.04 10^3/uL (0.00-0.03); Immature Granulocytes Pct Auto 0.5 % (0.0-0.5); Lymphocytes Absolute Auto 2.3 10^3/uL (1.2-3.8); Lymphocytes Percent Auto 30.7 % (20.5-60.0); Mean Corpuscular HGB Conc 32.7 g/dL (29.9-35.2); Mean Corpuscular Hemoglobin 30.5 pg (25.9-34.0); Mean Corpuscular Volume 93.3 fL (80.0-94.0); Mean Platelet Volume 9.8 fL (9.5-13.5); Monocytes Absolute Auto 0.5 10^3/uL (0.3-0.8); Monocytes Percent Auto 5.9 % (1.7-12.0); Neutrophils Absolute Auto 4.3 10^3/uL (1.4-6.5); Neutrophils Percent Auto 56.8 % (43.0-75.0); Platelet Count 227 10^3/uL (150-450); Red Blood Count 4.06 10^6/uL (4.70-6.10); Red Cell Distribution Width 13.2 % (11.0-15.0); White Blood Count 7.6 10^3/uL (4.0-11.0)
[2024-08-25 12:58] LABS: Alanine Aminotransferase 14 U/L (16-63); Albumin Level 3.2 g/dL (3.4-5.0); Alkaline Phosphatase 58 U/L (46-116); Aspartate Amino Transferase 19 U/L (15-37); BUN Creatinine Ratio 14.2; Bilirubin Total 0.5 mg/dL (0.2-1.0); Calcium 8.6 mg/dL (8.5-10.1); Carbon Dioxide 29.4 mmol/L (21.0-32.0); Chloride 109 mmol/L (98-107); Estimated GFR (African America >60 (>=60 mL/min/1.73m^2); Estimated GFR (Non-African Ame 54 (>=60 mL/min/1.73m^2); Globulin 3.1 g/dL; Glucose 162 mg/dL (74-106); Potassium 4.4 mmol/L (3.5-5.1); Sodium 146 mmol/L (136-145); Total Protein 6.3 g/dL (6.4-8.2)
[2024-08-25 13:14] LABS: Prostate Specific Antigen Dx 0.33 ng/mL (<=4.00)
[2024-08-26 04:09] LABS: Testosterone <3 ng/dL (264-916)
== END 2024-08-25 07:45 | disposition home or self-care (01) ==
PROVIDERS: PCP Internal Medicine; Visit Provider Urology
DX: C61 Malignant neoplasm of prostate (principal)
CPT/HCPCS: 36415; 80053; 84153; 84403; 85025

== ENCOUNTER 2024-10-04 20:59 | Emergency (ER) | payer MEDICARE, SELFPAY ==
[2024-10-04] VITALS (16 sets, daily range): BP systolic 122–148; BP diastolic 77–98; PULSE 62–118; TEMP 36.6; O2SAT 96–97; BMI 23.2
--- OUTSIDE RECORDS SUMMARY | 2024-10-04 21:05 | XMS_ITS | CCD ---
Author Organization [facility] CliniSyms Care Team Providers Care Filteration Operator Name Role Phone Nirav Bello Primary Care Provider Ryan Negron Attending Provider Nirav Bello Unavailable Unavailable Unavailable DO Nirav Bello Primary Care Provider [phone] DO Juan Ventura Attending Provider [phone] Dr. Nirav Bello Abhilash Primary Care Unavai armani Davis II, Dr. Epifanio Black Attending Unavailable Ryan GACRIA, Dr. Epifanio Black Referring Unavailable MISC, DR SHERIFF Attending Unavailable MISC, DR SHERIFF Consulting Unavailable MISC, DR SHERIFF Admitting Unavailable ACE, DR RIOS Primary Care Unavailable ACE, DR RIOS Primary Care Unavailable ACE, DR RIOS Admitting Unavailable ACE, DR RIOS Attending Unavailable ACE, DR RIOS Consulting Unavailable DR NIRAV BELLO Primary Care Unavailable MISJeff, DR SHERIFF Admitting Unavailable MISC, DR SHERIFF [...] Provider Nirav Bello DO Primary Care Provider DO Nirav Bello Primary Care Provider NON STAFF Attending Provider Unavailable KHOURY, MISSY Referring Unavailable ACE, NIRAV A Primary Care Unavailable KHOURY, MISSY Referring Unavailable ACE, NIRAV A Primary Care Unavailable Tulio Bello DOrey A Unavailable Nirav Bello DO A Primary Care Provider Ryan ZAMORA, [facility] Unavailable [phone] Nirav Bello DO Primary Care Provider [phone] Colin Thompson MD Attending Provider [phone] Miller Donald Admitting Unavailable Miller Donald Attending Unavailable Tulio Bellorey Primary Care Unavailable Colin Thompson Admitting Unavailable Colin Thompson Attending Unavailable Tulio Bellorey Primary Care Unavailable PETITTI, LAURA A Attending Unavailable PETITTI, LAURA Vargas Attending Unavailable PETITTI, LAURA Vargas Attending Unavailable OLGA DALEY Attending Unavailable PETITTI, LAURA Vargas Attending Unavailable ACE, NIRAV A Attending Unavailable ACE, NIRAV A Referring Unavailable ACE, NIRAV A Attending Unavailable ACE, NIRAV A Referring Unavailable ACE, NIRAV A Referring Unavailable ACE, NIRAV A Attending Unavailable PETITTI, LAURA A Attending Unavailable ACE, NIRAV A Attending Unavailable ACE, NIRAV A Attending Unavailable ACE, NIRAV A Referring Unavailable PETITTI, LAURA A Attending Unavailable AAMIR TALBERT Attending Unavailable ACE, NIRAV A Attending Unavailable ACE, NIRAV A Referring Unavailable KHOURY, MISSY Attending Unavailable ACE, NIRAV A Primary Care Unavailable KHOURY, MISSY Referring Unavailable ACE, NIRAV A Primary Care Unavailable KHOURY, MISSY Attending Unavailable KHOURY, MISSY Referring Unavailable ACE, NIRAV A Primary Care Unavailable KHOURY, MISSY Attending Unavailable KHOURY, MISSY Referring Unavailable ACE, NIRAV A Primary Care Unavailable Unavailable Unavailable Unavailable Allergies Allergy Classification Reported Allergen(s) Allergy Type Date of Onset Reaction(s) Facility (4 sources) Sulfonamides (Antibiotic); Translations: [Sulfa Drugs] Allergy to drug (finding) Hives [facility] 250 DO Work Phone: (15 sources) Sulfonamides (Antibiotic); Translations: [SULFA (SULFONAMIDE ANTIBIOTICS)] Allergy to substance 2 [facility] (1 source) Sulfonamides (Antibiotic) Drug allergy (disorder) [facility] Repository (20 sources) Substance with sulfonamide structure and antibacterial mechanism of action (substance) Drug allergy 4 [facility] (11 sources) abiraterone; Translations: [ABIRATERONE] Drug Allergy 4 Other [facility] Repository (20 sources) Sulfanilamide Allergy to substance 3 Unknown [facility] Healthcare Medications Current Medications Medication Drug Class(es) Dates Sig (Normalized) Sig (Original) abiraterone acetate 250 mg oral tablet (2 sources) Cytochrome P450 17A1 Inhibitor take 4 tablets by mouth once daily abiraterone (Zytiga) 250 MG chemo tablet Take 4 tablets by mouth Daily. Swallow whole. Do not eat 2 hrs before or 1 hr after. Active amLODIPine 5 mg oral tablet (10 sources) Dihydropyridine Calcium Channel Neeru Start: 08-01-2024 End: 10-02-2025 take 1 tablet by mouth once daily amLODIPine (Norvasc) 5 mg tablet Indications: Primary hypertension Take 1 tablet (5 mg) by mouth once daily. 90 tablet 1 10/02/2024 10/02/2025 Active amylase 082463 unt / lipase 71024 unt / protease 22033 unt delayed release oral capsule (20 sources) Start: 07-03-2024 pancrelipase, Ssl-Ifzi-Drms, (Creon) 76846-77241 units capsule Indications: Malignant neoplasm of prostate (CMS/HCC) , Exocrine pancreatic insufficiency (CMS/HCC) TAKE 1 CAPSULE IN THE MORNING, 1 CAPSULE AT NOON AND 1 CAPSULE IN THE EVENING WITH MEALS 360 capsule 2 07/03/2024 Active Start: 01-17-2024 Creon 69810-90 000 units capsule Indications: Malignant neoplasm of prostate (CMS/HCC) , Exocrine pancreatic insufficiency (CMS/HCC) TAKE 1 CAPSULE IN THE MORNING, 1 CAPSULE AT NOON AND 1 CAPSULE IN THE EVENING WITH MEALS 300 capsule 1 01/17/2024 Active Start: 05-12-2023 pancrelipase, Vck-Knlm-Gcko, (Creon) 58359-45673 units capsule Indications: Malignant neoplasm of prostate (CMS/HCC) , Exocrine pancreatic insufficiency (CMS/HCC) Take 1 capsule by mouth in the morning and 1 capsule at noon and 1 capsule in the evening. Take with meals. 270 capsule 1 05/12/2023 Active Start: 11-17-2022 take 1 capsule by mo uth three times daily haqgvx-ycbxuqjd-sryqtrs (Creon) 24,000-76,000 -120,000 unit capsule Take 1 capsule by mouth 3 times daily (morning, midday, late afternoon). 11/17/2022 Active Start: 11-17-2022 Creon 70811-23 000 UNIT 1 with each meal Orally daily for 30 days Oct, Active apalutamide 60 mg oral tablet (2 sources) Start: 01-18-2024 End: 09-04-2024 Erleada 60 MG tablet 01/18/2024 09/04/2024 Discontinued (Therapy completed) ascorbic acid 500 mg oral capsule (13 sources) Vitamin C take 1 capsule by mouth once daily ascorbic acid, vitamin C, 500 mg capsule Take 1 capsule by mouth once daily. Active atorvastatin 20 mg oral tablet (20 sources) HMG-CoA Reductase Inhibitor Start: 01-06-2024 atorvastatin (Lipitor) 20 MG tablet Indications: Mixed hyperlipidemia (CMS/HCC) TAKE 1 TABLET AT NIGHT 90 tablet 3 01/06/2024 Active Start: 12-05-2021 take 1 tablet by yifan once daily at bedtime Atorvastatin 10 mg Tablet Active 10 MG PO Daily at bedtime December 05, 2021 12:00am Start: 07-03-2020 End: 10-02-2025 take 0.5 tablet by mouth once daily atorvastatin (Lipitor) 20 mg tablet Indications: Mixed hyperlipidemia Take 0.5 tablets (10 mg) by mouth once daily. 45 tablet 1 10/02/2024 10/02/2025 Active Atorvastatin Andrea cium 20 MG Oral for 90 Days Active Bacillus coagulans / Inulin (1 source) End: 07-13-2023 take 1 capsule by mouth once daily BACILLUS COAGULANS-INULIN ORAL Take 1 capsule by mouth once daily. 0 07/13/2023 Discontinued (Therapy completed) calcitriol 0.0005 mg oral capsule (20 sources) Vitamin D3 Analog take 1 capsule by mouth once daily calcitriol (Rocaltrol) 0.5 MCG capsule Take 0.5 mcg by mouth Daily Active cholecalciferol 0.05 mg oral tablet (17 sources) Vitamin D Start: 12-05-2021 take 1 [...] Active cloNIDine hydrochloride 0.1 mg oral tablet (20 sources) Central alpha-2 Adrenergic Agonist Start: 10-02-2024 End: 10-02-2025 take 1 tablet by mouth once daily cloNIDine (Catapres) 0.1 mg tablet Indications: Primary hypertension Take 1 tablet (0.1 mg) by mouth once daily. 90 tablet 1 10/02/2024 10/02/2025 Active Start: 08-09-2024 take 1 tablet by yifan th once daily as needed for hypertension Clonidine Hcl 0.1 mg tablet Active 0.1 MG PO Daily as needed for hypertension August 09, 2024 12:00am Start: 05-22-2024 take 1 tablet by yifan th twice daily as needed for hypertension cloNIDine [...] tablet 1 05/10/2024 Active Start: 05-04-2024 End: 10-02-2024 cloNIDine (Catapres) 0.1 MG tablet Take 0.1 mg by mouth if needed 05/04/2024 05/10/2024 Discontinued (Reorder) 1.7 ml denosumab 70 mg/ml injection (20 sources) RANK Ligand Inhibitor inject 120 mg [...] propionate 0.05 mg/actuat metered dose nasal spray (18 sources) Corticosteroid Start: 08-09-2024 Fluticasone Pr opionate 50 mcg/actuation spray,suspension Active 2 SPRAY INTRANASAL Daily as needed for allergy symptoms August 09, 2024 12:00am Start: 05-10-2024 End: 05-10-2025 take 2 spray(s) nasal route once daily fluticasone (Flonase) 50 MCG/ACT nasal spray Indications: Allergic sinusitis Administer 2 sprays into each nostril Daily Shake gently. Before first use, prime pump. After use, clean tip and replace cap. 16 g 5 05/10/2024 09/04/2024 Discontinued (Therapy completed) lisinopril 20 mg oral tablet (20 sources) Angiotensin Converting Enzyme Inhibitor Start: 10-02-2024 End: 10-02-2025 take 1 tablet by mouth twice daily lisinopril 20 mg tablet Indications: Primary hypertension Take 1 tablet (20 mg) by mouth 2 times a day. 180 tablet 1 10/02/2024 10/02/2025 Active Start: 02-11-2021 End: 05-01-2025 take 2 tablets by mouth once daily lisinopril 20 mg tablet Indications: Essential hypertension Take 2 tablets (40 mg) by mouth once daily. 180 tablet 1 05/01/2024 10/02/2024 Discontinued (Med List Cleanup) Start: 02-11-2021 take 1 tablet by yifan th in the morning lisinopril 20 MG tablet Indications: Primary hypertension (CMS/HCC) Take 1 tablet (20 mg) by mouth in the morning and 1 tablet (20 mg) before bedtime. 180 tablet 3 04/06/2024 Active magnesium oxide 400 mg oral tablet (20 sources) Start: 01-13-2024 End: 01-12-2025 take 1 tablet by mouth twice daily magnesium oxide (Mag-Ox) 400 mg (241.3 mg magnesium) tablet Indications: Paroxysmal atrial fibrillation (Multi) Take 1 tablet (400 mg) by mouth 2 times a day. 180 tablet 3 01/13/2024 01/12/2025 Active Start: 01-11-2024 End: 01-13-2024 take 1 tablet by mouth once daily magnesium oxide (Mag-Ox) 400 mg (241.3 mg magnesium) tablet Indications: Paroxysmal atrial fibrillation (Multi) Take 1 tablet (400 mg) by mouth once daily. 90 tablet 01/11/2024 01/13/2024 Discontinued metFORMIN hydrochloride 500 mg oral tablet (20 sources) Biguanide Start: 07-05-2020 take 1 tablet by mouth once daily metFORMIN (Glucophage) 500 mg tablet Take 1 tablet (500 mg) by mouth once daily. 07/05/2020 Active 24 hr metoprolol succinate 50 mg extended release oral tablet (20 sources) beta-Adrenergic Neeru Start: 10-02-2024 End: 10-02-2025 take 1 tablet by mouth twice daily metoprolol succinate XL (Toprol-XL) 50 mg 24 hr tablet Indications: Primary hypertension Take 1 tablet (50 mg) by mouth 2 times a day. Do not crush or chew. 180 tablet 1 10/02/2024 10/02/2025 Active Start: 01-13-2024 End: 05-01-2025 take 2 tablets by mouth once daily metoprolol succinate XL (Toprol-XL) 50 mg 24 hr tablet Indications: Paroxysmal atrial fibrillation (Multi) Take 2 tablets (100 mg) by mouth once daily. Do not crush or chew. 180 tablet 1 05/01/2024 10/02/2024 Discontinued (Dose adjustment) Start: 07-13-2023 take 1 tablet by yifan [...] 07/13/2023 Active Start: 02-24-2021 End: 07-13-2023 take 1 tablet by mouth once daily in the morning Metoprolol Succinate 100 mg tablet extended release 24 hr Active 100 MG PO Every morning December 05, 2021 12:00am mirtazapine 15 mg oral tablet (20 sources) Start: 05-14-2021 take 1 tablet by mouth once daily at bedtime mirtazapine (Remeron) 15 mg tablet Take 1 tablet (15 mg) by mouth once daily at bedtime. 05/14/2021 Active polyethylene glycol 3350 734031 mg / potassium chloride 2970 mg / sodium bicarbonate 6740 mg / sodium chloride 5860 mg / sodium sulfate 01034 mg powder for oral solution (2 sources) [...] sources) Factor Xa Inhibitor Start: 03-05-2021 End: 10-02-2025 take 1 tablet by mouth once daily rivaroxaban (Xarelto) 20 mg tablet Indications: Paroxysmal atrial fibrillation (Multi) Take 1 tablet (20 mg) by mouth once daily. 90 tablet 1 10/02/2024 10/02/2025 Active vit A/vit C/vit E/zinc/copper (ICAPS AREDS ORAL) (10 sources) vit A/vit C/vit E/zinc/copper (ICAPS AREDS ORAL) Take 1 tablet by mouth see administration instructions. Active vit A/vit C/vit E/zinc/copper (ICAPS AREDS ORAL) Take 1 tablet by mouth see administration instructions. 0 Active Vit C,O-Vb-Jufpf-Lutein-Zeax an (Preservision Areds-2) 250-90-40-1 mg Capsule (4 sources) Start: 12-05-2021 Vit C,G-Il-Rpwst-Lutein-Zeax an (Preservision Areds-2) 250-90-40-1 mg Capsule Active 1 TAB PO Every morning December 05, 2021 12:47pm Start: 12-05-2021 Vit C,E-Zn-Snack Foods Mixer Operator bg-Xhycbj-Nnflyi (Preservision Areds-2) 250-90-40-1 mg Capsule Active 1 TAB PO Every morning December 05, 2021 12:00am vitamin b12 1 mg oral tablet (12 sources) Vitamin B12 take 1 tablet by mouth once daily cyanocobalamin (Vitamin B-12) 1,000 mcg tablet Take 1 tablet (1,000 mcg) by mouth once daily. Active Completed/Discontinued Medications Medication Drug Class(es) Dates Sig (Normalized) Sig (Original) acetaminophen 325 mg / HYDROcodone bitartrate 5 mg oral tablet (3 sources) Opioid Agonist Start: 12-08-2021 End: 12-24-2022 take 1 tablet by mouth every eight hours as needed for pain Hydrocodone-Acetam inophen 5-325 mg tablet Discontinued 1 TAB PO Q8H as needed for pain 14 December 08, 2021 December 24, 2022 11:27am ascorbic acid 226 mg / beta carotene 77630 unt / cuprous oxide 0.8 mg / dl-alpha tocopheryl acetate 200 unt / zinc oxide 34.8 mg oral capsule (3 sources) Vitamin C PreserVision ARE DS Oral Capsule TAKE DIRECTED. Quantity: 0 Refills: 0 Ordered: 03-Jul-2021 DO Active cephalexin 500 mg oral capsule (7 sources) Cephalosporin Antibacterial Start: 12-08-2021 End: 12-24-2022 take 1 capsule by mouth every eight hours Cephalexin 500 mg capsule Discontinued 500 MG PO Q8H 21 December 08, 2021 12:00am December 24, 2022 11:26am Start: 12-05-2021 End: 12-24-2022 take 1 capsule by mouth twice daily Cephalexin 500 mg Capsule Discontinued 500 MG PO Twice daily December [...] TENDERNESS] Onset: 09-09-2022 Episodic Cancer of prostate (20 sources) Malignant [...] [Chronic kidney disease, stage 3a (Multi)] Onset: 08-22-2024 Deficiency and other anemia (1 source) Anemia, unspecified; Translations: [ANEMIA UNSPECIFIED] Onset: 09-09-2022 Episodic Diabetes mellitus with complications (20 sources) Type 2 diabetes mellitus with other specified complication; Translations: [Type 2 diabetes mellitus] Onset: 05-10-2022 Chronic Diabetes mellitus without complication (20 sources) Diabetes mellitus; Translations: [Diabetes mellitus without [...] Onset: 05-02-2015 07-13-2023 Chronic Heart valve disorders (17 sources) Nonrheumatic mitral (valve) insufficiency; Translations: [Non-rheumatic mitral regurgitation ] Onset: 01-13-2024 Chronic Hypertension with complications and secondary hypertension (6 sources) Benign hypertensive renal disease; Translations: [Hypertensive [...] anticoagulants] Episodic Other aftercare (3 sources) Other tank terminal 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 (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; Translations: [OTH PAPERHANGER ASSISTANT CURRENT DRUG THERAPY] Onset: 11-06-2021 Episodic Other aftercare (4 sources) Removal of sutures done; Translations: [Encounter for removal of sutures] 07-14-2024 Episodic Other aftercare (2 sources) Treatment changed; Translations: [Other tank terminal gauger (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] Onset: 10-02-2024 10-02-2024 Episodic Other gastrointestinal disorders (20 sources) Irritable [...] bowel habit] Episodic Other nervous system disorders (3 sources) Postoperative pain ; Translations: [Other acute postprocedural pain] 12-08-2021 Episodic Other nutritional; endocrine; and metabolic disorders (2 sources) Fat pad syndrome; 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 Other nutritional; endocrine; and metabolic disorders (3 sources) Overweight; Translations: [Overweight] Episodic Other upper respiratory disease (20 sources) Sinusitis; Translations: [Allergic rhinitis, unspecified] Onset: 05-10-2024 05-10-2024 Chronic Residual codes; unclassified (7 sources) Body mass index 20-24 - normal; Translations: [Body Mass Index between 19-24, adult] Onset: 05-01-2024 05-01-2024 Episodic Past or Other Problems Problem Classification Problem Date Documented Date Episodic/Chronic Administrative/socia l admission (5 sources) Patient encounter status; Translations: [Person consulting for explanation of examination or test findings] Onset: 05-01-2024 05-01-2024 Episodic Deficiency and other anemia (20 sources) Anemia; Translations: [Anemia, unspecified] Onset: 11-04-2016 11-03-2022 Episodic Other aftercare (11 sources) Long-term current use of anticoagulant; Translations: [ferry terminal supervisor (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 of anticoagulants] Onset: 01-13-2024 05-01-2024 Episodic Other aftercare (10 sources) Taking high risk medication; Translations: [Other correction (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] Onset: 01-13-2024 01-13-2024 Episodic Other aftercare (2 sources) ferry terminal supervisor (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 of anticoagulants; Translations: [ferry terminal supervisor (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 of anticoagulants] Onset: 01-13-2024 Episodic Other non-epithelial cancer of skin (20 sources) 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; Translations: [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] Onset: 10-11-2022 10-11-2022 Episodic Other screening for suspected conditions (not mental disorders or infectious disease) (6 sources) Abnormal electrocardiogram [ECG] [EKG]; Translations: [Electrocardiogram abnormal] Onset: 01-13-2024 Episodic Pancreatic disorders (not diabetes) (20 sources) Other specified diseases of pancreas; Translations: [Exocrine pancreatic insufficiency] Onset: 05-12-2023 Episodic Residual codes; unclassified (2 sources) Body mass index (BMI) 23.0-23.9, adult; Translations: [Body mass index (BMI) 23.0-23.9, adult] Onset: 05-01-2024 Episodic Screening and history of mental health and substance abuse codes (16 sources) Ex-smoker; Translations: [Personal history of nicotine dependence] Onset: 07-13-2023 07-13-2023 Episodic Unclassified (3 sources) Never smoked tobacco; Translations: [Never a smoker] Unclassified (10 sources) Onset: 07-13-2023 Resolved: 10-02-2024 07-13-2023 Results Test Name Value Interpretation Reference Range Facility No Panel Informationon 08-30 Lesion length (cm): 1.2 Lesion width (cm): 1.1 Margin per side (cm): 0.4 Total excision [...] lidocaine used: 9.0 ml Estimated blood loss: 1.0 ml [facility] Complexity: Intermediate Final length (cm): 5.3 Reason for type of repair: allow closure of the large defect Undermining: edges undermined Undermining comment: The surrounding tissue was undermined until the skin edges could be approximated without undue tension. Any tissue redundancies were removed. Subcutaneous layers (deep stitches): Suture size: 3-0 Suture type comment: Biosyn Stitches: Buried horizontal mattress (Closure was performed in a layered fashion with subcutaneous tissue closed first using tension-bearing absorbable sutures to the level of the superficial fascia.) Fine/surface layer approximation (top stitches): Suture size: 4-0 Suture type: Prolene (polypropylene) Stitches: simple running Stitches comment: Epicuticular skin sutures were then placed with minimal tension. Outcome: patient tolerated procedure well with no complications Post-procedure details: sterile dressing applied and wound care instructions given Post-procedure details comment: It was emphasized to the patient to contact the office for any signs of infection, uncontrollable bleeding, or complications. Dressing type: bandage [facility] No Panel InformationOrdered By: Danielle Leblanc on 08-30-2024 [facility] Work Phone: ALL CBC WITH AUTO DIFFon BASOPHILS ABSOLUTE AUTO 0.1 N [facility] Basophils/100 WBC (Bld) 1.1 % 0.2 - 2.0 % [facility] Eosinophils/100 WBC (Bld) 5 % 0.9 - 7.0 % [facility] Erythrocyte distribution width (RBC) [Ratio] 13.2 % 11.0 - 15.0 % [facility] Hematocrit (Bld) [Volume fraction] 37.9 % Low 42.0 - 54.0 % [facility] Hemoglobin (Bld) [Mass/Vol] 12.4 g/dL Low 14.0 - 18.0 g/dL [facility] IMMATURE GRANULOCYTES ABS AUTO 0.04 High [facility] Immature granulocytes/100 WBC (Bld) 0.5 % 0.0 - 0.5 % [facility] Interpretation and review of laboratory results Abnormal [facility] LYMPHOCYTES ABSOLUTE AUTO 2.3 [facility] Lymphocytes/100 WBC (Bld) 30.7 % 20.5 - 60.0 % [facility] MCH (RBC) [Entitic mass] 30.5 pg 25.9 - 34.0 pg [facility] MCHC (RBC) [Mass/Vol] 32.7 g/dL 29.9 - 35.2 g/dL [facility] MCV (RBC) [Entitic vol] 93.3 fL 80.0 - 94.0 fL [facility] MONOCYTES ABSOLUTE AUTO 0.5 N [facility] Monocytes/100 WBC (Bld) 5.9 % 1.7 - 12.0 % [facility] NEUTROPHILS ABSOLUTE AUTO 4.3 [facility] Neutrophils/100 WBC (Bld) 56.8 % 43.0 - 75.0 % [facility] Platelet mean volume (Bld) [Entitic vol] 9.8 fL 9.5 - 13.5 fL [facility] TBH EO # 0.4 [facility]H PLT [address] [facility] RBC 4.06 Low [facility] WBC 7.6 [facility] Glucose Glucometer (BldC) [M ass/Vol]Ordered By: Colin Thompson on 08-09-2024 Glucose [Mass/Vol] Capillary blood glucose measurement by glucometer (mass/volume) [facility] Comment on above: Random Glucose Refer ence Range is dependent on time and content of last meal. Glucose of more than 200 mg/dL in a nonstressed, ambulatory subject supports the diagnosis of Diabetes Mellitus. Glucose Poct Glucometerson 0 08-09-2024 Commemt1 Glu2: Cleaned Meter Normal [facility] Comment on above: Result Comment: PERF ORMED BY: [facility] [address] [place] [address] PATHOLOGIST NATIONAL SALES REPRESENTATIVE JOSE DOWNEY M.D. Performed By: #### G PRAMOD #### Point of Care testing , Glucose [Mass/Vol] 216 mg/dL Normal [facility] Comment on above: Result Comment: [facility] Glucose Reference Range is dependent on time and content of last meal. Glucose of more than 200 mg/dL in a nonstressed, ambulatory subject supports the diagnosis of Diabetes Mellitus. Performed By: #### G PRAMOD #### Point of Care testing , Joni 08-09-2024 L - -------- Specimen: [id number] Received: 08/09/24 Status: DEONDRE Joshua Num: [id number] Spec Type: Surgical Subm Dr: Colin Thompson MD Tissues: A Skin-Other than Cyst, tag, debridement or plastic repair (R LOWER LEG) Procedures: Lizett HERNANDEZ/Saurabh L4 -------- Age/ Patient Sex Location Account Attending Physician -------- Epifanio Walsh 84/M [place] [id number] Colin Thompson MD -------- SPEC NUM: [id number] RECD: 08/09/24 STATUS: DEONDRE LEWIS NUM: [id number] JARRET: 08/09/24- SUBM DR: Colin Thompson MD ENTERED: 08/09/[address]: RYAN TYPE: Surgical DEPT: S ENTERED BY: [id number] RECV BY: [id number] ORDERED: HE/8, Gross/Micro L4 ORDERED: HE8, Gross/Micro L4 Pathological Diagnosis Skin, right lower [...] and 0.6 cm from the 6?9?12:00 margin. -------- Specimen: [id number] Received: 08/09/24 Status: DEONDRE Lewis Num: [id number] Spec Type: Surgical Subm Dr: Colin Thompson MD Tissues: A Skin-Other than Cyst, tag, debridement or plastic repair (R LOWER LEG) Procedures: Angel, Lizett/Saurabh L4 -------- Patient: Epifanio Walsh [id number] (Continued) -------- Specimen: [id number] Received: 08/09/24 (Continued) Gross Description (Continued) Signed (signature on file) Sohail Urbina MD 08/10/24 1527 -------- Specimen: [id number] Received: 08/09/24 Status: DEONDRE Lewis Num: [id number] Spec Type: Surgical Subm Dr: Colin Thompson MD Tissues: A Skin-Other than Cyst, tag, debridement or plastic repair (R LOWER LEG) Procedures: HE/Angel, Gross/Micro L4 -------- Patient: Epifanio Walsh [id number] (Continued) -------- Specimen: [id number] Received: 08/09/24 (Continued) Gross Description (Continued) The specimen is inked as follows: 12?3:00-Yellow 3?6:00-Green 6?9:00-[place] 9?12:00-Blue Deep-Black Serial sections reveal yellow-[place], glistening and uniform cut surfaces with a [...] serially sectioned 6:00 polar end (8, ns, [id number]) Microscopic Description Microscopic examination is performed CPT Codes 67396 -------- -------- Specimen: [id number] Re (more content not included)... Normal [facility] No Panel InformationOrdered By: Colin Thompson on 08-09-2024 Bedside Glucose Comment Glu2: cleaned meter [facility] No Panel Informationon 07-26 Lesion length (cm): [...] details: Amount of lidocaine used: 2.0 ml [facility] [employer] [facility] [employer] No Panel Informationon 07-14 Type of biopsy: [...] taken Amount of lidocaine used: 1.0 cc [facility] [employer] Type of biopsy: tangential Informed consent: discussed [...] taken Amount of lidocaine used: 2.0 cc [facility] Type of biopsy: tangential Informed consent: discussed [...] taken Amount of lidocaine used: 1.0 cc [facility] CMP (CMP) (FOR REMOTE C USE)on 07-06-2024 Albumin [Mass/Vol] 3.6 g/dL 3.4 - 5.0 g/dL [facility] ALBUMIN GLOBULIN RATIO 1.2 [facility] ALP [Catalytic activity/Vol] 48 U/L 46 - 116 U/L [facility] ALT [Catalytic activity/Vol] 16 U/L 16 - 63 U/L [facility] Anion gap [Moles/Vol] 11 mmol/L [facility] AST [Catalytic activity/Vol] 19 U/L 15 - 37 U/L [facility] Bilirubin [Mass/Vol] 0.6 mg/dL 0.2 - 1 .0 mg/dL [facility] Calcium [Mass/Vol] 8.8 mg/dL 8.5 - 10. 1 mg/dL [facility] Chloride [Moles/Vol] 106 mmol/L 98 - 10 7 mmol/L [facility] CO2 [Moles/Vol] 30 mmol/L 21.0 - 32.0 mmol/L [facility] Creatinine [Mass/Vol] 1.27 mg/dL 0.70 - 1.30 mg/dL [facility] GFR/1.73 sq M.predicted CKD-EPI (S/P/Bld) [Vol rate/Area] >60 >=60 mL/min/1.73m 2 [facility] Globulin (S) [Mass/Vol] 3.1 g/dL [facility] Glucose [Mass/Vol] 167 mg/dL High 74 - 106 mg/dL [facility] Interpretation and review of laboratory results Abnormal [facility] Potassium [Moles/Vol] 4 mmol/L 3.5 - 5.1 mmol/L [facility] Protein [Mass/Vol] 6.7 g/dL 6.4 - 8.2 g/dL [facility] Sodium [Moles/Vol] 143 mmol/L 136 - 145 mmol/L [facility] TBH EGFR-NON AF [place]IZ[place] 54 Low >=60 mL/min/1.73m 2 [facility] Urea nitrogen [Mass/Vol] 24 mg/dL High 7.0 - 18.0 mg/dL [facility] Urea nitrogen/Creatinine [Mass ratio] 18.9 mg/mg [facility] No Panel Informationon 06-30 Complexity: Intermediate [...] uncontrollable bleeding, or complications. Dressing type: bandage [facility] Lesion length (cm): 1.2 Lesion width (cm): [...] 9.0 ml Estimated blood loss: <1.0 ml [facility] HbA1c (Bld) [Mass fraction]o n 05-10-2024 [facility] Laboratory - Hematology and Cell countson 05-10-2024 HbA1c (Bld) [Mass fraction] 7.6 % [facility] ALL CBC WITH AUTO DIFFon BASOPHILS ABSOLUTE AUTO 0.1 N [facility] Basophils/100 WBC (Bld) 1.2 % 0.2 - 2.0 % [facility] Eosinophils/100 WBC (Bld) 4.3 % 0.9 - 7.0 % [facility] Erythrocyte distribution width (RBC) [Ratio] 13 % 11.0 - 15.0 % [facility] Hematocrit (Bld) [Volume fraction] 38.4 % Low 42.0 - 54.0 % [facility] Hemoglobin (Bld) [Mass/Vol] 12.4 g/dL Low 14.0 - 18.0 g/dL [facility] IMMATURE GRANULOCYTES ABS AUTO 0.03 [facility] Immature granulocytes/100 WBC (Bld) 0.5 % 0.0 - 0.5 % [facility] Interpretation and review of laboratory results Abnormal [facility] LYMPHOCYTES ABSOLUTE AUTO 2.1 [facility] Lymphocytes/100 WBC (Bld) 32.7 % 20.5 - 60.0 % [facility] MCH (RBC) [Entitic mass] 30.1 pg 25.9 - 34.0 pg [facility] MCHC (RBC) [Mass/Vol] 32.3 g/dL 29.9 - 35.2 g/dL [facility] MCV (RBC) [Entitic vol] 93.2 fL 80.0 - 94.0 fL [facility] MONOCYTES ABSOLUTE AUTO 0.5 N [facility] Monocytes/100 WBC (Bld) 7 % 1.7 - 12.0 % [facility] NEUTROPHILS ABSOLUTE AUTO 3.5 [facility] Neutrophils/100 WBC (Bld) 54.3 % 43.0 - 75.0 % [facility] Platelet mean volume (Bld) [Entitic vol] 10.4 fL 9.5 - 13.5 fL [facility] RBC 4.12 Low [facility] WBC 6.5 [facility] ALL CBC WITH AUTO DIFFon BASOPHILS ABSOLUTE AUTO 0.1 N [facility] Basophils/100 WBC (Bld) 1.2 % 0.2 - 2.0 % [facility] Eosinophils/100 WBC (Bld) 5.3 % 0.9 - 7.0 % [facility] Erythrocyte distribution width (RBC) [Ratio] 13.1 % 11.0 - 15.0 % [facility] Hematocrit (Bld) [Volume fraction] 38.3 % Low 42.0 - 54.0 % [facility] Hemoglobin (Bld) [Mass/Vol] 12.6 g/dL Low 14.0 - 18.0 g/dL [facility] IMMATURE GRANULOCYTES ABS AUTO 0.04 High [facility] Immature granulocytes/100 WBC (Bld) 0.5 % 0.0 - 0.5 % [facility] Interpretation and review of laboratory results Abnormal [facility] LYMPHOCYTES ABSOLUTE AUTO 2.2 [facility] Lymphocytes/100 WBC (Bld) 27.3 % 20.5 - 60.0 % [facility] MCH (RBC) [Entitic mass] 30.7 pg 25.9 - 34.0 pg [facility] MCHC (RBC) [Mass/Vol] 32.9 g/dL 29.9 - 35.2 g/dL [facility] MCV (RBC) [Entitic vol] 93.2 fL 80.0 - 94.0 fL [facility] MONOCYTES ABSOLUTE AUTO 0.6 N [facility] Monocytes/100 WBC (Bld) 7.3 % 1.7 - 12.0 % [facility] NEUTROPHILS ABSOLUTE AUTO 4.8 [facility] Neutrophils/100 WBC (Bld) 58.4 % 43.0 - 75.0 % [facility] Platelet mean volume (Bld) [Entitic vol] 10.6 fL 9.5 - 13.5 fL [facility] TBH EO # 0.4 [facility]H PLT 193 [facility] TBH RBC 4.11 Low [facility] WBC 8.1 [facility] TRANSTHORACIC ECHO (TTE) COM PLETEon 02-21-2024 TRANSTHORACIC ECHO (TTE) COMPLETE [address], [address], [place] [address] TRANSTHORACIC ECHOCARDIOGRAM REPORT Patient Name: EPIFANIO Kim Physician: [id number] Marina Goldsmith MD Study Date: 02/21/2024 Ordering Provider: [id number] MISSY KHOURY MRN/PID: [id number] Fellow: Nurse: Date of /Age: 1 1940 / 83 years Small Engine Technician: Jyoti Gutiérrez RDCS, RVT Gender: M Additional Staff: Height: 180.34 cm Admit Date: Weight: 77.11 kg Admission Status: BSA / BMI: 1.97 m2 / 23.71 kg/m2 Department Location: [facility] Blood Pressure: 142 /84 mmHg Study Type: TRANSTHORACIC ECHO (TTE) COMPLETE Diagnosis/ICD: 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; Paroxysmal atrial fibrillation-I48.0 Indication: Diabetes, HTN, Hyperlipidemia, Murmur, Former Smoker, Prostate Cancer with Metastases, CKD-Stage III CPT Codes: Echo Complete w Full Doppler-97855 Study Detail: The following Echo studies were [...] mmHg PIEDV: 2.08 m/s PADP: 20.3 mmHg [id number] Marina Goldsmith MD Electronically signed on 02/21/2024 at 2:06:09 PM Final Normal [facility] US Heart TransthoracicOrdere d By: Marina Goldsmith on 02-21-2024 Aortic Valve Area by Continuity of Peak Velocity 4.33 cm2 [facility] Work Phone: Aortic Valve Area by Continuity of VTI 3.61 cm2 [facility] Work Phone: AV mn grad 2.0 mmHg [facility] Work Phone: AV pk grad 4.8 mmHg [facility] Work Phone: AV pk farheen 1.10 m/s [facility] Work Phone: LV A4C EF 68.1 [facility] Work Phone: LV EF 60 % [facility] Work Phone: LVIDd 4.95 cm [facility] Work Phone: LVOT diam 2.60 cm [facility] Work Phone: MV avg E/e' ratio 6.90 [facility] Work Phone: MV E/A ratio 0.58 [facility] Work Phone: RVSP 29.4 mmHg [facility] Work Phone: [facility] Work Phone: Heart Transthoracicon [address], [place] [address] TRANSTHORACIC ECHOCARDIOGRAM REPORT Patient Name: EPIFANIO Kim Physician: [id number] Marina Goldsmith MD Study Date: 02/21/2024 Ordering Provider: [id number] MISSY KHOURY MRN/PID: [id number] Fellow: Nurse: Date of /Age: 1 1940 / 83 years Small Engine Technician: Jyoti Gutiérrez RDCS, RVT Gender: M Additional Staff: Height: 180.34 cm Admit Date: Weight: 77.11 kg Admission Status: BSA / BMI: 1.97 m2 / 23.71 kg/m2 Department Location: [facility] Blood Pressure: 142 /84 mmHg Study Type: TRANSTHORACIC ECHO (TTE) COMPLETE Diagnosis/ICD: 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; Paroxysmal atrial fibrillation-I48.0 Indication: Diabetes, HTN, Hyperlipidemia, Murmur, Former Smoker, Prostate Cancer with Metastases, CKD-Stage III CPT Codes: Echo Complete w Full Doppler-[id number] Study Detail: The following Echo studies were [...] not included)... Marina Shaffer MD - 02/21/[address], [address] [facility], [place] [address] TRANSTHORACIC ECHOCARDIOGRAM REPORT Patient Name: EPIFANIO Kim Physician: [id number] Marina Goldsmith MD Study Date: 02/21/2024 Ordering Provider: [id number] MISSY KHOURY MRN/PID: [id number] Fellow: Nurse: Date of /Age: 1 1940 / 83 years Small Engine Technician: Jyoti Gutiérrez RDCS, RVT Gender: M Additional Staff: Height: 180.34 cm Admit Date: Weight: 77.11 kg Admission Status: BSA / BMI: 1.97 m2 / 23.71 kg/m2 Department Location: [facility] Blood Pressure: 142 /84 mmHg Study Type: TRANSTHORACIC ECHO (TTE) COMPLETE Diagnosis/ICD: 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; Paroxysmal atrial fibrillation-I48.0 Indication: Diabetes, HTN, Hyperlipidemia, Murmur, Former Smoker, Prostate Cancer with Metastases, CKD-Stage III CPT Codes: Echo Complete w Full Doppler-[id number] Study Detail: The following Echo studies were [...] mmHg PIEDV: 2.08 m/s PADP: 20.3 mmHg [id number] Marina Goldsmith MD Electronically signed on 02/21/2024 at 2:06:09 PM Final [facility] Work Phone: KW Heart Perfusion W stress and W radionuclide [...] Clarissa Sanchez 02/07/2024 4:47 PM Dictation workstation: [id number] Interpreted By: Clarissa Sanchez, and Miller Elaine STUDY: MYOCARDIAL PERFUSION STRESS TEST WITH EXERCISE Performing facility: [facility], [address] [place] [address], [address], [place] [address] [facility] Provider: Missy Khoury MD, FACC PCP: Dr. Trang Bello Supervising provider: Marina Goldsmith MD INDICATION: Abnormal EKG; PVC Murmur HISTORY: Gender: M; Age: 83 y/o ; Height: HT 180.3 cm cm; Weight: WT 77.111 kg kg. Abnormal EKG; High Cholesterol; Diabetes; HTN; Arrhythmias; A-fib Quit smoking 34 years ago. COMPARISON: Previous nuclear testing completed at [facility]. ACCESSION NUMBER(S): [id number] ORDERING CLINICIAN: MISSY KHOURY TECHNIQUE: ONE DAY [...] WITH EXERCISE Performing facility: [facility], [address] [place] [address], [address], [place] [address] [facility] Provider: Missy Khoury MD, [facility] PCP: Dr. Trang Bello Supervising provider: Marina Goldsmith MD INDICATION: Abnormal EKG; PVC Murmur HISTORY: Gender: M; Age: 83 y/o ; Height: HT 180.3 cm cm; Weight: WT 77.111 kg kg. Abnormal EKG; High Cholesterol; Diabetes; HTN; Arrhythmias; A-fib Quit smoking 34 years ago. COMPARISON: Previous nuclear testing completed [id number] at [facility]. ACCESSION NUMBER(S): [id number] ORDERING CLINICIAN: MISSY KHOURY TECHNIQUE: ONE DAY [...] Clarissa Sanchez 02/07/2024 4:47 PM Dictation workstation: [id number] [facility] Work Phone: Radiology Study observation (narrative) [facility] Work Phone: NM Heart Perfusion W stress and W radionuclide IVOrdered By: Clarissa Sanchez on 02-07-2024 [facility] Work Phone: NUCLEAR STRESS TESTon 2023 NUCLEAR STRESS TEST Interpreted By: Clarissa Sanchez and Giannuzzi Michael STUDY: MYOCARDIAL PERFUSION STRESS TEST WITH EXERCISE Performing facility: [facility], [address] [place] [address], [address], [place] [address] [facility] Provider: Missy Khoury MD, FACC PCP: Dr. Trang Bello Supervising provider: Marina Goldsmith MD INDICATION: Abnormal EKG; PVC Murmur HISTORY: Gender: M; Age: 83 y/o ; Height: HT 180.3 cm cm; Weight: WT 77.111 kg kg. Abnormal EKG; High Cholesterol; Diabetes; HTN; Arrhythmias; A-fib Quit smoking 34 years ago. COMPARISON: Previous nuclear testing completed at [facility]. ACCESSION NUMBER(S): [id number] ORDERING CLINICIAN: MISSY KHOURY TECHNIQUE: ONE DAY [...] Clarissa Sanchez 02/07/2024 4:47 PM Dictation workstation: [id number] [facility] Comment on above: Order Comment: Start with exercise, may switch to alfonso ALL BASIC METABOLIC PANELon 02-03-2024 Anion gap [Moles/Vol] 11.7 mmol/L [facility] Calcium [Mass/Vol] 8.3 mg/dL Low 8.5 - 10. 1 mg/dL [facility] Chloride [Moles/Vol] 107 mmol/L 98 - 10 7 mmol/L [facility] CO2 [Moles/Vol] 28.3 mmol/L 21.0 - 32.0 mmol/L [facility] Creatinine [Mass/Vol] 1.11 mg/dL 0.70 - 1.30 mg/dL [facility] GFR/1.73 sq M.predicted CKD-EPI (S/P/Bld) [Vol rate/Area] >60 60 - PINF [facility] Glucose [Mass/Vol] 164 mg/dL High 74 - 106 mg/dL [facility] Interpretation and review of laboratory results Abnormal [facility] Potassium [Moles/Vol] 4.0 mmol/L 3.5 - 5.1 mmol/L [facility] Sodium [Moles/Vol] 143 mmol/L 136 - 145 mmol/L [facility] TBH EGFR-NON AF [place] >60 60 - PINF [facility] Urea nitrogen [Mass/Vol] 16.0 mg/dL 7.0 - 18.0 mg/dL [facility] Urea nitrogen/Creatinine [Mass ratio] 14.4 mg/mg [facility] PET psma initial tx sb-[facility]ton 09-13-2023 PET psma initial tx sb-[facility] [address] Nuclear Medicine Report Signed Patient: Epifanio Walsh MR#: [id number] : 1940 Acct:[id number] Age/Sex: 83 / M ADM Date: 09/13/23 Loc: Room: Type: [facility] CLI Attending Dr: SYLWIA STAFF Copies to: NON [...] Jordan Story M.D.09/13/2023 3:20 PM Dictation Location: [place] [address] Transcribed By: [facility] 09/13/23 1520 Dictated By: Jordan Story II, MD 09/13/23 1515 Signed By: 09/13/23 1520 Normal [facility] ECG 12 Leadon 07-13-2023 Sinus rhythm with frequent PVCs Otherwise normal EKG QTc 444 ms [facility] Work Phone: C reactive protein [Mass/vol ume] in Serum or PlasmaOrdered By: Jj Garcia on 07-06-2023 CRP [Mass/Vol] < 0.5 mg/dL 0.0-0.[address] [facility] Creatinine [Mass/volume] in Serum or PlasmaOrdered By: Nirav Bello on 11-26-2022 Creatinine [Mass/Vol] 1.55 mg/dL 0.70-1.30 [facility] Erythrocyte sedimentation ra te by Photometric methodOrdered By: Jj Garcia on 11-26-2022 ESR Photometric method (Bld) [Velocity] 18 mm/hr 0- [facility] No Panel InformationOrdered By: Nirav Bello on 11-26-2022 Estimated GFR (CKD-EPI) 43.863 mL/Min [facility] Creatinine Clearance (Chem N/A [facility] Thyrotropin [Units/volume] i n Serum or PlasmaOrdered By: Jj Garcia on 11-26-2022 TSH Qn 1.23 m[IU]/L 0.45-5.[address] [facility] Urea nitrogen [Mass/volume] in Serum or PlasmaOrdered By: Nirav Bello on 11-26-2022 Urea nitrogen [Mass/Vol] 31 mg/dL 7-[address] [facility] PANCREATIC ELASTASE FECALon 09-08-2022 Pancreatic Elastase, Fecal 86 ug Elast./g Critically low >200 [facility] Comment on above: Result Comment: Re sults verified by repeat testing Severe Pancreatic Insufficiency: <100 Moderate Pancreatic Insufficiency: 100 - 200 Normal: >200 Performed By: #### L IPID, TSH, CMP #### [facility] [address] [place] [address] Dr. Leesa Urbina CELIAC ANTIBODIES PROFILEon 09-04-2022 Deamidated Gliadin Abs, IgA 8 units Normal 0-19 [facility] Comment on above: Result Comment: Nega tive 0 - 19 Weak Positive 20 - 30 Moderate to Strong Positive >30 Performed By: #### C ELIACP #### [facility] [address] [place] [address] Dr. Leesa Urbina Deamidated Gliadin Abs, IgG 4 units Normal 0-19 [facility] Comment on above: Result Comment: Nega tive 0 - 19 Weak Positive 20 - 30 Moderate to Strong Positive >30 Performed By: #### C ELIACP #### [facility] [address] [place] [address] Dr. Leesa Urbina Endomysial Antibody IgA Negative Normal Negative [facility] Comment on above: Performed By: #### C ELIACP #### [facility] [address] [place] [address] [address] Leesa Urbina Immunoglobulin A, Qn, Serum 143 mg/dL Normal 61-437 [facility] Comment on above: Performed By: #### C ELIACP #### [facility] [address] [place] [address] [address] Leesa Urbina t-Transglutaminase (tTG) IgA <2 Normal 0-3 [facility] Comment on above: Result Comment: Nega tive 0 - 3 Weak Positive 4 - 10 Positive >10 . Tissue Transglutaminase (tTG) has been identified as the endomysial antigen. Studies have demonstr- ated that endomysial IgA antibodies have over 99% specificity for gluten sensitive enteropathy. Performed By: #### C ELIACP #### [facility] [address] [place] [address] Dr. Leesa Urbina t-Transglutaminase (tTG) IgG 6 U/mL Critically high 0-5 [facility] Comment on above: Result Comment: Nega tive 0 - 5 Weak Positive 6 - 9 Positive >9 Performed By: #### C ELIACP #### [facility] [address] [place] [address] Dr. Leesa Urbina CBC AUTO DIFFon 09-03-2022 BASO # 0.1 103/ul Normal 0.0-0.1 [facility] Comment on above: Performed By: #### L IPID, TSH, CMP #### [facility] [address] [place] [address] Dr. Leesa Urbina Basophils/100 WBC (Bld) 1.1 % Normal 0.2-2.0 [facility] Comment on above: Performed By: #### L IPID, TSH, CMP #### [facility] [address] [place] [address] Dr. Leesa Urbina EO # 0.6 103/ul Normal 0.0-0.7 [facility] Comment on above: Performed By: #### L IPID, TSH, CMP #### [facility] [address] [place] [address] Dr. Leesa Urbina Eosinophils/100 WBC (Bld) 7.9 % Critically high 0.9-7.0 [facility] Comment on above: Performed By: #### L IPID, TSH, CMP #### [facility] [address] [place] [address] Dr. Leesa Urbina Erythrocyte distribution width (RBC) [Ratio] 13.6 % Normal 11.0-15.0 [facility] Comment on above: Performed By: #### L IPID, TSH, CMP #### [facility] [address] [place] [address] Dr. Leesa Urbina Hematocrit (Bld) [Volume fraction] 34.4 % Critically low 42.0-54.0 [facility] Comment on above: Performed By: #### L IPID, TSH, CMP #### [facility] [address] [place] [address] Dr. Leesa Urbina Hemoglobin (Bld) [Mass/Vol] 11.4 g/dL Critically low 14.0-18.0 [facility] Comment on above: Performed By: #### L IPID, TSH, CMP #### [facility] [address] [place] [address] Dr. Leesa Urbina IG # 0.02 10e3/ul Normal 0.00-0.03 [facility] Comment on above: Performed By: #### L IPID, TSH, CMP #### [facility] [address] [place] [address] Dr. Leesa Urbina IG % 0.3 % Normal 0.0-0.5 [facility] Comment on above: Performed By: #### L IPID, TSH, CMP #### [facility] [address] [place] [address] Dr. Leesa Urbina LYMPH # 2.1 103/ul Normal 1.2-3.8 [facility] Comment on above: Performed By: #### L IPID, TSH, CMP #### [facility] [address] [place] [address] Dr. Leesa Urbina Lymphocytes/100 WBC (Bld) 28.1 % Normal 20.5-60.0 [facility] Comment on above: Performed By: #### L IPID, TSH, CMP #### [facility] [address] [place] [address] Dr. Leesa Urbina MANUAL DIFF REQ NO Normal [facility] Comment on above: Performed By: #### L IPID, TSH, CMP #### [facility] [address] [place] [address] Dr. Leesa Urbina MCH (RBC) [Entitic mass] 31.1 pg Normal 25.9-34.0 [facility] Comment on above: Performed By: #### L IPID, TSH, CMP #### [facility] [address] [place] [address] Dr. Leesa Urbina MCHC (RBC) [Mass/Vol] 33.1 g/dL Normal 29.9-35.2 [facility] Comment on above: Performed By: #### L IPID, TSH, CMP #### [facility] [address] [place] [address] Dr. Leesa Urbina MCV (RBC) [Entitic vol] 93.7 fL Normal 80.0-94.0 [facility] Comment on above: Performed By: #### L IPID, TSH, CMP #### [facility] [address] [place] [address] Dr. Leesa Urbina MONO # 0.4 103/ul Normal 0.3-0.8 [facility] Comment on above: Performed By: #### L IPID, TSH, CMP #### [facility] [address] [place] [address] Dr. Leesa Urbina Monocytes/100 WBC (Bld) 6.0 % Normal 1.7-12.0 [facility] Comment on above: Performed By: #### L IPID, TSH, CMP #### [facility] [address] [place] [address] Dr. Leesa Urbina NEUT # 4.2 103/ul Normal 1.4-6.5 [facility] Comment on above: Performed By: #### L IPID, TSH, CMP #### [facility] [address] [place] [address] [address] Leesa Urbina Neutrophils/100 WBC (Bld) 56.6 % Normal 43.0-75.0 [facility] Comment on above: Performed By: #### L IPID, TSH, CMP #### [facility] [address] [place] [address] [address] Leesa Urbina Platelet mean volume (Bld) [Entitic vol] 10.1 fL Normal 9.5-13.5 [facility] Comment on above: Performed By: #### L IPID, TSH, CMP #### [facility] [address] [place] [address] Dr. Leesa Urbina PLT 195 103/ul Normal 150-450 [facility] Comment on above: Performed By: #### L IPID, TSH, CMP #### [facility] [address] [place] [address] Dr. Leesa Urbina RBC 3.67 106/ul Critically low 4.70-6.10 [facility] Comment on above: Performed By: #### L IPID, TSH, CMP #### [facility] [address] [place] [address] Dr. Leesa Urbina WBC 7.3 103/ul Normal 4.0-11.0 [facility] Comment on above: Performed By: #### L IPID, TSH, CMP #### [facility] [address] [place] [address] Dr. Leesa Urbina FERRITINon 09-03-2022 Ferritin [Mass/Vol] 44.0 ng/mL Normal 26.0-388.0 [facility] Comment on above: Performed By: #### F ERR, FETIBC #### [facility] [address] [place] [address] Dr. Leesa Urbina IRON AND TIBCon 09-03-2022 % SATURATION 23.5 % Normal [facility] Comment on above: Performed By: #### F ERR, FETIBC #### [facility] [address] [place], [place] [address] Dr. Leesa Urbina Iron [Mass/Vol] 69.0 ug/dL Normal 65.0-175.0 [facility] Comment on above: Performed By: #### F ERR, FETIBC #### [facility] [address] [place], [place] [address] Dr. Leesa Urbina TIBC DIRECT 294.0 ug/dL Normal 250.0-450.0 [facility] Comment on above: Performed By: #### F ERR, FETIBC #### [facility] [address] [place], [place] [address] Dr. Leesa Urbina Office Visit (Cardiology)on 07-14-2022 Follow-up visit Diagnoses/Problems Assessed Anticoagulated (V58.61) (Z79.01) Benign essential hypertension (401.1) (I10) Hyperlipidemia (272.4) (E78.5) Paroxysmal atrial fibrillation (427.31) (I48.0) Diabetes mellitus (250.00) (E11.9) Body mass index (BMI) of 24.0 to 24.9 in adult (V85.1) (Z68.24) Never a smoker Orders SocHx: Never a smoker Tobacco Use Screening; Status:Complete; Done: [id number] Patient Instructions Please bring all medicines, vitamins, [...] negative for complaint. Vitals Vital Signs Recorded: [id number] 09:08AM Heart Rate68, L Radial Hubolpcm435, LUE, Sitting Umbyncskz76, LUE, Sitting Height5 ft 11 in Rpkfdr466 lb BMI Dxhagazkho74.13 kg/m2 BSA Calculated1.98 Tobacco Useb) No PHQ-2 [...] . Signatures Electronically signed by : Epifanio Davis MD; Jul 14 2022 10:20AM EST (Author) Normal [employer] Tobacco Screening.on 023 Adult depression screening assessment No [facility] 250 DO Work Phone: Fall risk assessment a) No falls within the last year [facility] 250 DO Work Phone: Tobacco use status [facility] b) No M [facility] 250 DO Work Phone: CBC AUTO DIFFon 05-06-2022 BASO # 0.1 103/ul Normal 0.0-0.1 [facility] Comment on above: Performed By: #### C BC #### [facility] [address] [place] [address] Dr. Leesa Urbina Basophils/100 WBC (Bld) 1.4 % Normal 0.2-2.0 [facility] Comment on above: Performed By: #### C BC #### [facility] [address] [place] [address] Dr. Leesa Urbina EO # 0.4 103/ul Normal 0.0-0.7 [facility] Comment on above: Performed By: #### C BC #### [facility] [address] [place] [address] Dr. Leesa Urbina Eosinophils/100 WBC (Bld) 5.4 % Normal 0.9-7.0 [facility] Comment on above: Performed By: #### C BC #### [facility] [address] [place] [address] Dr. Leesa Urbina Erythrocyte distribution width (RBC) [Ratio] 13.3 % Normal 11.0-15.0 [facility] Comment on above: Performed By: #### C BC #### [facility] [address] [place] [address] Dr. Leesa Urbina Hematocrit (Bld) [Volume fraction] 35.8 % Critically low 42.0-54.0 [facility] Comment on above: Performed By: #### C BC #### [facility] [address] [place] [address] Dr. Leesa Urbina Hemoglobin (Bld) [Mass/Vol] 12.0 g/dL Critically low 14.0-18.0 [facility] Comment on above: Performed By: #### C BC #### [facility] [address] [place] [address] Dr. Leesa Urbina IG # 0.01 10e3/ul Normal 0.00-0.03 [facility] Comment on above: Performed By: #### C BC #### [facility] [address] [place] [address] Dr. Leesa Urbina IG % 0.2 % Normal 0.0-0.5 [facility] Comment on above: Performed By: #### C BC #### [facility] [address] [place] [address] Dr. Leesa Urbina LYMPH # 1.7 103/ul Normal 1.2-3.8 [facility] Comment on above: Performed By: #### C BC #### [facility] [address] [place] [address] Dr. Leesa Urbina Lymphocytes/100 WBC (Bld) 26.1 % Normal 20.5-60.0 [facility] Comment on above: Performed By: #### C BC #### [facility] [address] [place] [address] Dr. Leesa Urbina MANUAL DIFF REQ NO Normal [facility] Comment on above: Performed By: #### C BC #### [facility] [address] [place] [address] Dr. Leesa Urbina MCH (RBC) [Entitic mass] 31.0 pg Normal 25.9-34.0 [facility] Comment on above: Performed By: #### C BC #### [facility] [address] [place] [address] Dr. Leesa Urbina MCHC (RBC) [Mass/Vol] 33.5 g/dL Normal 29.9-35.2 [facility] Comment on above: Performed By: #### C BC #### [facility] [address] [place] [address] Dr. Leesa Urbina MCV (RBC) [Entitic vol] 92.5 fL Normal 80.0-94.0 [facility] Comment on above: Performed By: #### C BC #### [facility] [address] [place] [address] Dr. Leesa Urbina MONO # 0.4 103/ul Normal 0.3-0.8 [facility] Comment on above: Performed By: #### C BC #### [facility] [address] [place] [address] Dr. Leesa Urbina Monocytes/100 WBC (Bld) 6.5 % Normal 1.7-12.0 [facility] Comment on above: Performed By: #### C BC #### [facility] [address] [place] [address] Dr. Leesa Urbina NEUT # 4.0 103/ul Normal 1.4-6.5 [facility] Comment on above: Performed By: #### C BC #### [facility] [address] [place] [address] Dr. Leesa Urbina Neutrophils/100 WBC (Bld) 60.4 % Normal 43.0-75.0 [facility] Comment on above: Performed By: #### C BC #### [facility] [address] [place] [address] Dr. Leesa Urbina Platelet mean volume (Bld) [Entitic vol] 10.6 fL Normal 9.5-13.5 [facility] Comment on above: Performed By: #### C BC #### [facility] [address] [place] [address] Dr. Leesa Urbina PLT 185 103/ul Normal 150-450 [facility] Comment on above: Performed By: #### C BC #### [facility] [address] [place] [address] Dr. Leesa Urbina RBC 3.87 106/ul Critically low 4.70-6.10 [facility] Comment on above: Performed By: #### C BC #### [facility] [address] [place] [address] Dr. Leesa Urbina WBC 6.6 103/ul Normal 4.0-11.0 [facility] Comment on above: Performed By: #### C BC #### [facility] [address] [place] [address] Dr. Leesa Urbina GLYCOHEMOGLOBIN A1Con 2021 ADA RECOMMENDATION SEE BELOW Normal [facility] Comment on above: Result Comment: ADA RECOMMENDED LIMIT 4.0 - 6.0 ADA THERAPEUTIC TARGET < 7.0 ACTION SUGGESTED > 7.0 Performed By: #### A 1C #### [facility] [address] [place] [address] Dr. Leesa Urbina Glucose [Mass/Vol] 151 mg/dL Normal [facility] Comment on above: Performed By: #### A 1C #### [facility] [address] [place] [address] Dr. Leesa Urbina HbA1c (Bld) [Mass fraction] 6.9 % Critically high 4.5-6.2 [facility] Comment on above: Performed By: #### A 1C #### [facility] [address] [place] [address] Dr. Leesa Urbina LIPID PROFILEon 05-06-2022 CHOL-HDL RATIO NORM SEE BELOW Normal [facility] Comment on above: Result Comment: 3.3 - 4.4 LOW RISK 4.4 - 7.1 AVERAGE RISK 7.1 - 11.0 MODERATE RISK >11.0 HIGH RISK Performed By: #### L IPID, TSH, CMP #### [facility] [address] [place] [address] [address] Leesa Urbina Cholesterol [Mass/Vol] 136 mg/dL Normal <=200 [facility] Comment on above: Performed By: #### L IPID, TSH, CMP #### [facility] [address] [place] [address] [address] Leesa Urbina Cholesterol in HDL [Mass/Vol] 62 mg/dL Critically high 40-60 [facility] Comment on above: Performed By: #### L IPID, TSH, CMP #### [facility] [address] [place] [address] Dr. Leesa Urbina Cholesterol in LDL [Mass/Vol] 53.0 mg/dL Normal [facility] Comment on above: Performed By: #### L IPID, TSH, CMP #### [facility] [address] [place] [address] Dr. Leesa Urbina Cholesterol.total/Kandy sterol in HDL [Mass ratio] 2.2 {ratio} Normal [facility] Comment on above: Performed By: #### L IPID, TSH, CMP #### [facility] [address] [place] [address] Dr. Leesa Urbina HDL NORMAL > or = 60 mg/dl - LO W CARDIOVASCULAR RISK <40 mg/dl - HIGH CARDIOVASCULAR RISK Normal [facility] Comment on above: Performed By: #### L IPID, TSH, CMP #### [facility] [address] [place] [address] Dr. Leesa Urbina LDL CALC NORMAL SEE BELOW Normal [facility] Comment on above: Result Comment: <100 mg/dl OPTIMAL 100 - 129 mg/dl NEAR OR ABOVE OPTIMAL 130 - 159 mg/dl BORDERLINE HIGH 160 - 189 mg/dl HIGH >190 mg/dl VERY HIGH Performed By: #### L IPID, TSH, CMP #### [facility] [address] [place] [address] Dr. Leesa Urbina Triglyceride [Mass/Vol] 105 mg/dL Normal <=150 [facility] Comment on above: Performed By: #### L IPID, TSH, CMP #### [facility] [address] [place] [address] [address] Leesa Urbina VLDL CALC 21.0 mg/dL Normal [facility] Comment on above: Performed By: #### L IPID, TSH, CMP #### [facility] [address] [place] [address] [address] Leesa Urbina PROF 14(COMP METB)on 022 Albumin [Mass/Vol] 3.4 g/dL Normal 3.4-5.0 [facility] Comment on above: Performed By: #### L IPID, TSH, CMP #### [facility] [address] [place] [address] Dr. Leesa Urbina Albumin/Globulin [Mass ratio] 1.1 {ratio} Normal [facility] Comment on above: Performed By: #### L IPID, TSH, CMP #### [facility] [address] [place] [address] Dr. Leesa Urbina ALP [Catalytic activity/Vol] 77 U/L Normal 46-116 [facility] Comment on above: Performed By: #### L IPID, TSH, CMP #### [facility] [address] [place] [address] Dr. Leesa Urbina ALT [Catalytic activity/Vol] 12 U/L Critically low 16-63 [facility] Comment on above: Performed By: #### L IPID, TSH, CMP #### [facility] [address] [place] [address] [address] Leesa Urbina Anion gap [Moles/Vol] 12.7 mmol/L Normal [facility] Comment on above: Performed By: #### L IPID, TSH, CMP #### [facility] [address] [place] [address] Dr. Leesa Urbina AST [Catalytic activity/Vol] 19 U/L Normal 15-37 [facility] Comment on above: Performed By: #### L IPID, TSH, CMP #### [facility] [address] [place] [address] Dr. Leesa Urbina Bilirubin [Mass/Vol] 0.4 mg/dL Normal 0.2-1.0 [facility] Comment on above: Performed By: #### L IPID, TSH, CMP #### [facility] [address] [place] [address] Dr. Leesa Urbina Calcium [Mass/Vol] 8.5 mg/dL Normal 8.5-10.1 [facility] Comment on above: Performed By: #### L IPID, TSH, CMP #### [facility] [address] [place] [address] Dr. Leesa Urbina Chloride [Moles/Vol] 107 mmol/L Normal 98-107 [facility] Comment on above: Performed By: #### L IPID, TSH, CMP #### [facility] [address] [place] [address] Dr. Leesa Urbina CO2 [Moles/Vol] 27.4 mmol/L Normal 21.0-32.0 [facility] Comment on above: Performed By: #### L IPID, TSH, CMP #### [facility] [address] [place] [address] Dr. Leesa Urbina Creatinine [Mass/Vol] 1.06 mg/dL Normal 0.70-1.30 [facility] Comment on above: Performed By: #### L IPID, TSH, CMP #### [facility] [address] [place] [address] Dr. Leesa Urbina EGFR-AF [place]IZ[place] >60 Normal >=60 [facility] Comment on above: Performed By: #### L IPID, TSH, CMP #### [facility] [address] [place] [address] Dr. Leesa Urbina EGFR-NON AF [place]IZ[place] >60 Normal >=60 [facility] Comment on above: Performed By: #### L IPID, TSH, CMP #### [facility] [address] [place] [address] Dr. Leesa Urbina Globulin (S) [Mass/Vol] 3.1 g/dL Normal [facility] Comment on above: Performed By: #### L IPID, TSH, CMP #### [facility] [address] [place] [address] [address] Leesa Urbina Glucose [Mass/Vol] 171 mg/dL Critically high 74-106 [facility] Comment on above: Performed By: #### L IPID, TSH, CMP #### [facility] [address] [place] [address] Dr. Leesa Urbina Potassium [Moles/Vol] 4.1 mmol/L Normal 3.5-5.1 [facility] Comment on above: Performed By: #### L IPID, TSH, CMP #### [facility] [address] [place] [address] Dr. Leesa Urbina Protein [Mass/Vol] 6.5 g/dL Normal 6.4-8.2 [facility] Comment on above: Performed By: #### L IPID, TSH, CMP #### [facility] [address] [place] [address] Dr. Leesa Urbina Sodium [Moles/Vol] 143 mmol/L Normal 136-145 [facility] Comment on above: Performed By: #### L IPID, TSH, CMP #### [facility] [address] [place] [address] Dr. Leesa Urbina Urea nitrogen [Mass/Vol] 24.0 mg/dL Critically high 7.0-18.0 [facility] Comment on above: Performed By: #### L IPID, TSH, CMP #### [facility] [address] [place] [address] Dr. Leesa Urbina Urea nitrogen/Creatinine [Mass ratio] 22.6 mg/mg Normal [facility] Comment on above: Performed By: #### L IPID, TSH, CMP #### [facility] [address] [place] [address] Dr. Leesa Urbina Basophils Auto (Bld) [#/Vol] Ordered By: Juan Ventura on 12-05-2021 Basophils (Bld) [#/Vol] 0.1 10*3/uL 0.0-0.[address] [facility] Basophils/100 WBC Auto (Bld) Ordered By: Juan Ventura on 12-05-2021 Basophils/100 WBC (Bld) 0.9 % [facility] Blood hemoglobin measurement (mass/volume)Ordered By: Juan Ventura on 12-05-2021 Hemoglobin (Bld) [Mass/Vol] 12.4 g/dL 13.0-17.[address] [facility] Blood leukocytes automated c ount (number/volume)Ordered By: Juan Ventura on 12-05-2021 WBC (Bld) [#/Vol] 7.0 10*3/uL 4.5-11.0 [facility] COVID-19 Positive/NegativeOr dered By: Juan Ventura on 12-05-2021 SARS-CoV-2 (COVID-19) N gene RENETTA+probe Ql (Resp) Negative Negative [facility] Comment on above: Testing for SARS-CoV -2 by RT-PCR This test was developed and its performance characteristics determined by [employer] and validated at the [facility]. This test has not been [...] on 12-05-2021 Creatinine [Mass/Vol] 1.28 mg/dL 0.64-1.27 [facility] Eosinophils Auto (Bld) [#/Vo l]Ordered By: Juan Ventura on 12-05-2021 Eosinophils (Bld) [#/Vol] 0.1 10*3/uL 0.0-0.[address] [facility] Eosinophils/100 WBC Auto (Bl d)Ordered By: Juan Ventura on 12-05-2021 Eosinophils/100 WBC (Bld) 2.1 % [facility] Erythrocyte distribution wid th Auto (RBC) [Ratio]Ordered By: Juan Ventura on 12-05-2021 Erythrocyte distribution width (RBC) [Ratio] 14.6 % 12.0-14.[address] [facility] Estimated glomerular filtrat ion rate (GFR) non- AmericanOrdered By: Juan Ventura on 12-05-2021 GFR/1.73 sq M.predicted among non-blacks MDRD (S/P/Bld) [Vol rate/Area] 54 mL/Min [facility] Hematocrit Auto (Bld) [Volum e fraction]Ordered By: Juan Ventura on 12-05-2021 Hematocrit (Bld) [Volume fraction] 37.3 % 38.8-50.[address] [facility] - Hematology and Cell countsOrdered By: Juan Ventura on 12-05-2021 Nucleated RBC/100 WBC (Bld) [Ratio] 0.0 % 0-0.[address] [facility] Lymphocytes Auto (Bld) [#/Vo l]Ordered By: Juan Ventura on 12-05-2021 Lymphocytes (Bld) [#/Vol] 1.4 10*3/uL 1.00-4.[address] [facility] Lymphocytes/100 WBC Auto (Bl d)Ordered By: Juan Ventura on 12-05-2021 Lymphocytes/100 WBC (Bld) 19.8 % [facility] MCH Auto (RBC) [Entitic mass ]Ordered By: Juan Ventura on 12-05-2021 MCH (RBC) [Entitic mass] 30.8 pg 27.5-35.[address] [facility] MCHC Auto (RBC) [Mass/Vol]Or dered By: Juan Ventura on 12-05-2021 MCHC (RBC) [Mass/Vol] 33.1 g/dL 32.5-35.6 [facility] MCV Auto (RBC) [Entitic vol] Ordered By: Juan Ventura on 12-05-2021 MCV (RBC) [Entitic vol] 93.1 fL 83.5-101 [facility] Monocytes Auto (Bld) [#/Vol] Ordered By: Juan Ventura on 12-05-2021 Monocytes (Bld) [#/Vol] 0.5 10*3/uL 0.0-0.[address] [facility] Monocytes/100 WBC Auto (Bld) Ordered By: Juan Ventura on 12-05-2021 Monocytes/100 WBC (Bld) 7.3 % [facility] Neutrophils Auto (Bld) [#/Vo l]Ordered By: Juan Ventura on 12-05-2021 Neutrophils (Bld) [#/Vol] 4.9 10*3/uL 1.8-7.[address] [facility] Neutrophils/100 WBC Auto (Bl d)Ordered By: Juan Ventura on 12-05-2021 Neutrophils/100 WBC (Bld) 69.9 % [facility] No Panel InformationOrdered By: Juan Ventura on 12-05-2021 Estimated GFR () > 60 mL/Min [facility] Comment on above: GFR estimated refere nce range: According to KDOQI guidelines, <60 ml/min/1.73m2 is sufficient to diagnose a patient with chronic kidney disease. Pharmacy Creatinine Clearance (Chem N/A [facility] Platelet mean volume Auto (B ld) [Entitic vol]Ordered By: Juan Ventura on 12-05-2021 Platelet mean volume (Bld) [Entitic vol] 8.9 fL 6.6-10.[address] [facility] Platelets Auto (Bld) [#/Vol] Ordered By: Juan Ventura on 12-05-2021 Platelets (Bld) [#/Vol] 194 10*3/uL 150-[address] [facility] RBC Auto (Bld) [#/Vol]Ordere d By: Juan Ventura on 12-05-2021 RBC (Bld) [#/Vol] 4.00 10*6/uL 3.90-5.60 [facility] Serum or plasma calcium fco urement (mass/volume)Ordered By: Juan Ventura on 12-05-2021 Calcium [Mass/Vol] 9.2 mg/dL 8.2-10.2 [facility] Serum or plasma chloride daniel surement (moles/volume)Ordered By: Juan Ventura on 12-05-2021 Chloride [Moles/Vol] 107 mmol/L 95-114 [facility] Serum or plasma glucose fco urement (mass/volume)Ordered By: Juan Ventura on 12-05-2021 Glucose [Mass/Vol] 117 mg/dL 70-100 [facility] Comment on above: ADA recommended refe rence range Random Glucose Reference Range is dependent on time and content of last meal. Glucose of more than 200 mg/dL in a nonstressed, ambulatory subject supports the diagnosis of Diabetes Mellitus. Serum or plasma potassium me asurement (moles/volume)Ordered By: Juan Ventura on 12-05-2021 Potassium [Moles/Vol] 4.6 mmol/L 3.5-5.1 [facility] Serum or plasma sodium measu rement (moles/volume)Ordered By: Juan Ventura on 12-05-2021 Sodium [Moles/Vol] 141 mmol/L 136-146 [facility] Serum or plasma total carbon dioxide measurement (moles/volume)Ordered By: Juan Ventura on 12-05-2021 CO2 [Moles/Vol] 26.2 mmol/L 22.0-30.0 [facility] Serum or plasma urea nitroge n measurement (mass/volume)Ordered By: Juan Ventura on 12-05-2021 Urea nitrogen [Mass/Vol] 23 mg/dL 9-[address] [facility] CBC AUTO DIFFon 11-05-2021 BASO # 0.1 103/ul Normal 0.0-0.1 [facility] Comment on above: Performed By: #### C BC #### [facility] [address] [address] [address] Leesa Urbina Basophils/100 WBC (Bld) 0.8 % Normal 0.2-2.0 [facility] Comment on above: Performed By: #### C BC #### [facility] [address] [address] [address] Leesa Urbina EO # 0.4 103/ul Normal 0.0-0.7 [facility] Comment on above: Performed By: #### C BC #### [facility] [address] [place] [address] Dr. Leesa Urbina Eosinophils/100 WBC (Bld) 5.6 % Normal 0.9-7.0 [facility] Comment on above: Performed By: #### C BC #### [facility] [address] [place] [address] Dr. Leesa Urbina Erythrocyte distribution width (RBC) [Ratio] 13.4 % Normal 11.0-15.0 [facility] Comment on above: Performed By: #### C BC #### [facility] [address] [place] [address] Dr. Leesa Urbina Hematocrit (Bld) [Volume fraction] 36.1 % Critically low 42.0-54.0 [facility] Comment on above: Performed By: #### C BC #### [facility] [address] [place] [address] Dr. Leesa Urbina Hemoglobin (Bld) [Mass/Vol] 11.8 g/dL Critically low 14.0-18.0 [facility] Comment on above: Performed By: #### C BC #### [facility] [address] [place] [address] Dr. Leesa Urbina IG # 0.02 10e3/ul Normal 0.00-0.03 [facility] Comment on above: Performed By: #### C BC #### [facility] [address] [place] [address] Dr. Leesa Urbina IG % 0.3 % Normal 0.0-0.5 [facility] Comment on above: Performed By: #### C BC #### [facility] [address] [place] [address] Dr. Leesa Urbina LYMPH # 1.8 103/ul Normal 1.2-3.8 [facility] Comment on above: Performed By: #### C BC #### [facility] [address] [place] [address] Dr. Leesa Urbina Lymphocytes/100 WBC (Bld) 28.4 % Normal 20.5-60.0 [facility] Comment on above: Performed By: #### C BC #### [facility] [address] [place] [address] Dr. Leesa Urbina MANUAL DIFF REQ NO Normal [facility] Comment on above: Performed By: #### C BC #### [facility] [address] [place] [address] Dr. Leesa Urbina MCH (RBC) [Entitic mass] 30.7 pg Normal 25.9-34.0 [facility] Comment on above: Performed By: #### C BC #### [facility] [address] [place] [address] Dr. Leesa Urbina MCHC (RBC) [Mass/Vol] 32.7 g/dL Normal 29.9-35.2 [facility] Comment on above: Performed By: #### C BC #### [facility] [address] [place] [address] Dr. Leesa Urbina MCV (RBC) [Entitic vol] 94.0 fL Normal 80.0-94.0 [facility] Comment on above: Performed By: #### C BC #### [facility] [address] [place] [address] Dr. Leesa Urbina MONO # 0.5 103/ul Normal 0.3-0.8 [facility] Comment on above: Performed By: #### C BC #### [facility] [address] [place] [address] Dr. Leesa Urbina Monocytes/100 WBC (Bld) 8.1 % Normal 1.7-12.0 [facility] Comment on above: Performed By: #### C BC #### [facility] [address] [place] [address] Dr. Leesa Urbina NEUT # 3.5 103/ul Normal 1.4-6.5 [facility] Comment on above: Performed By: #### C BC #### [facility] [address] [place] [address] Dr. Leesa Urbina Neutrophils/100 WBC (Bld) 56.8 % Normal 43.0-75.0 [facility] Comment on above: Performed By: #### C BC #### [facility] [address] [address] [address] Leesa Urbina Platelet mean volume (Bld) [Entitic vol] 10.3 fL Normal 9.5-13.5 [facility] Comment on above: Performed By: #### C BC #### [facility] [address] [address] [address] Leesa Urbina PLT 179 103/ul Normal 150-450 [facility] Comment on above: Performed By: #### C BC #### [facility] [address] [place] [address] Dr. Leesa Urbina RBC 3.84 106/ul Critically low 4.70-6.10 [facility] Comment on above: Performed By: #### C BC #### [facility] [address] [place] [address] Dr. Leesa Urbina WBC 6.2 103/ul Normal 4.0-11.0 [facility] Comment on above: Performed By: #### C BC #### [facility] [address] [place] [address] Dr. Leesa Urbina GLYCOHEMOGLOBIN A1Con 2021 ADA RECOMMENDATION SEE BELOW Normal [facility] Comment on above: Result Comment: ADA RECOMMENDED LIMIT 4.0 - 6.0 ADA THERAPEUTIC TARGET < 7.0 ACTION SUGGESTED > 7.0 Performed By: #### L IPID, TSH, CMP #### [facility] [address] [place] [address] Dr. Leesa Urbina Glucose [Mass/Vol] 151 mg/dL Normal [facility] Comment on above: Performed By: #### L IPID, TSH, CMP #### [facility] [address] [place] [address] Dr. Leesa Urbina HbA1c (Bld) [Mass fraction] 6.9 % Critically high 4.5-6.2 [facility] Comment on above: Performed By: #### L IPID, TSH, CMP #### [facility] [address] [place], [place] [id number] Dr. Leesa Urbina LIPID PROFILEon 11-05-2021 CHOL-HDL RATIO NORM SEE BELOW Normal [facility] Comment on above: Result Comment: 3.3 - 4.4 LOW RISK 4.4 - 7.1 AVERAGE RISK 7.1 - 11.0 MODERATE RISK >11.0 HIGH RISK Performed By: #### L IPID, TSH, CMP #### [facility] [address] [place] [address] Dr. Leesa Urbina Cholesterol [Mass/Vol] 150 mg/dL Normal <=200 [facility] Comment on above: Performed By: #### L IPID, TSH, CMP #### [facility] [address] [place] [address] Dr. Leesa Urbina Cholesterol in HDL [Mass/Vol] 60 mg/dL Normal 40-60 [facility] Comment on above: Performed By: #### L IPID, TSH, CMP #### [facility] [address] [place] [address] Dr. Leesa Uribna Cholesterol in LDL [Mass/Vol] 70.8 mg/dL Normal [facility] Comment on above: Performed By: #### L IPID, TSH, CMP #### [facility] [address] [place] [address] Dr. Leesa Urbina Cholesterol.total/Kandy sterol in HDL [Mass ratio] 2.5 {ratio} Normal [facility] Comment on above: Performed By: #### L IPID, TSH, CMP #### [facility] [address] [place] [address] Dr. Leesa Urbina HDL NORMAL > or = 60 mg/dl - LO W CARDIOVASCULAR RISK <40 mg/dl - HIGH CARDIOVASCULAR RISK Normal [facility] Comment on above: Performed By: #### L IPID, TSH, CMP #### [facility] [address] [place] [address] Dr. Leesa Urbina LDL CALC NORMAL SEE BELOW Normal [facility] Comment on above: Result Comment: <100 mg/dl OPTIMAL 100 - 129 mg/dl NEAR OR ABOVE OPTIMAL 130 - 159 mg/dl BORDERLINE HIGH 160 - 189 mg/dl HIGH >190 mg/dl VERY HIGH Performed By: #### L IPID, TSH, CMP #### [facility] [address] [address] [address] Leesa Urbina Triglyceride [Mass/Vol] 96 mg/dL Normal <=150 [facility] Comment on above: Performed By: #### L IPID, TSH, CMP #### [facility] [address] [address] [address] Leesa Urbina VLDL CALC 19.2 mg/dL Normal [facility] Comment on above: Performed By: #### L IPID, TSH, CMP #### [facility] [address] [address] [address] Leesa Urbina MICROALB CREAT RATIO RANDOMo n 11-05-2021 mALB <1.3 Normal <=30.0 [facility] Comment on above: Performed By: #### L IPID, TSH, CMP #### [facility] [address] [place] [address] Dr. Leesa JOHNS CR RATIO 11.4 mg/g Normal 0.0-29.9 [facility] Comment on above: Performed By: #### L IPID, TSH, CMP #### [facility] [address] [place] [address] Dr. Leesa Urbina MALB CR RATIO RANGE SEE BELOW Normal [facility] Comment on above: Result Comment: NO M ICROALBUMINURIA 0-29 MG/G CLINICAL MICROALBUMINURIA 30-300 MG/G MACROALBUMINURIA >300 MG/G Performed By: #### L IPID, TSH, CMP #### [facility] [address] [place] [address] Dr. Leesa Urbina URINE CREAT 114.03 mg/dL Normal 20.00-300.00 [facility] Comment on above: Performed By: #### L IPID, TSH, CMP #### [facility] [address] [place] [address] Dr. Leesa Urbina PROF 14(COMP METB)on 022 Albumin [Mass/Vol] 2.3 g/dL Critically low 3.4-5.0 [facility] Comment on above: Performed By: #### L IPID, TSH, CMP #### [facility] [address] [address] [address] Leesa Urbina Albumin/Globulin [Mass ratio] 0.5 {ratio} Normal [facility] Comment on above: Performed By: #### L IPID, TSH, CMP #### [facility] [address] [address] [address] Leesa Urbina ALP [Catalytic activity/Vol] 77 U/L Normal 46-116 [facility] Comment on above: Performed By: #### L IPID, TSH, CMP #### [facility] [address] [address] [address] Leesa Urbina ALT [Catalytic activity/Vol] 16 U/L Normal 16-63 [facility] Comment on above: Performed By: #### L IPID, TSH, CMP #### [facility] [address] [address] [address] Leesa Urbina Anion gap [Moles/Vol] 13.8 mmol/L Normal [facility] Comment on above: Performed By: #### L IPID, TSH, CMP #### [facility] [address] [address] [address] Leesa Urbina AST [Catalytic activity/Vol] 15 U/L Normal 15-37 [facility] Comment on above: Performed By: #### L IPID, TSH, CMP #### [facility] [address] [address] [address] Leesa Urbina Bilirubin [Mass/Vol] 0.5 mg/dL Normal 0.2-1.0 [facility] Comment on above: Performed By: #### L IPID, TSH, CMP #### [facility] [address] [address] [address] Leesa Urbina Calcium [Mass/Vol] 8.7 mg/dL Normal 8.5-10.1 [facility] Comment on above: Performed By: #### L IPID, TSH, CMP #### [facility] [address] [address] [address] Leesa Urbina Chloride [Moles/Vol] 107 mmol/L Normal 98-107 [facility] Comment on above: Performed By: #### L IPID, TSH, CMP #### [facility] [address] [place] [address] Dr. Leesa Urbina CO2 [Moles/Vol] 26.2 mmol/L Normal 21.0-32.0 [facility] Comment on above: Performed By: #### L IPID, TSH, CMP #### [facility] [address] [place] [address] Dr. Leesa Urbina Creatinine [Mass/Vol] 1.25 mg/dL Normal 0.70-1.30 [facility] Comment on above: Performed By: #### L IPID, TSH, CMP #### [facility] [address] [place] [address] Dr. Leesa Urbina EGFR-AF [place]IZ[place] >60 Normal >=60 [facility] Comment on above: Performed By: #### L IPID, TSH, CMP #### [facility] [address] [place] [address] Dr. Leesa Urbina EGFR-NON AF [place] 55 mL/min/1.73m2 Critically low >=60 [facility] Comment on above: Performed By: #### L IPID, TSH, CMP #### [facility] [address] [place] [address] Dr. Leesa Urbina Globulin (S) [Mass/Vol] 4.3 g/dL Normal [facility] Comment on above: Performed By: #### L IPID, TSH, CMP #### [facility] [address] [place] [address] Dr. Leesa Urbina Glucose [Mass/Vol] 137 mg/dL Critically high 74-106 [facility] Comment on above: Performed By: #### L IPID, TSH, CMP #### [facility] [address] [place] [address] Dr. Leesa Urbina Potassium [Moles/Vol] 4.0 mmol/L Normal 3.5-5.1 [facility] Comment on above: Performed By: #### L IPID, TSH, CMP #### [facility] [address] [address] [address] Leesa Urbina Protein [Mass/Vol] 6.6 g/dL Normal 6.4-8.2 [facility] Comment on above: Performed By: #### L IPID, TSH, CMP #### [facility] [address] [address] [address] Leesa Urbina Sodium [Moles/Vol] 143 mmol/L Normal 136-145 [facility] Comment on above: Performed By: #### L IPID, TSH, CMP #### [facility] [address] [address] [address] Leesa Urbina Urea nitrogen [Mass/Vol] 24.0 mg/dL Critically high 7.0-18.0 [facility] Comment on above: Performed By: #### L IPID, TSH, CMP #### [facility] [address] [place] [address] Dr. Leesa Urbina Urea nitrogen/Creatinine [Mass ratio] 19.2 mg/mg Normal [facility] Comment on above: Performed By: #### L IPID, TSH, CMP #### [facility] [address] [place] [address] Dr. Leesa Urbina TSHon 11-05-2021 TSH 0.996 uIU/mL Normal 0.358-3.740 [facility] Comment on above: Performed By: #### L IPID, TSH, CMP #### [facility] [address] [place] [address] Dr. Leesa Urbina Tobacco Screening.on 022 Adult depression screening assessment No [facility] DO Work Phone: Fall risk assessment a) No falls within the last year [facility] DO Work Phone: Tobacco use status [facility] b) No [facility] DO Work Phone: Vital Signs Date Time Vital Sign Value Performing Clinician Facility 10-02-2024 11:54-0400 Body height 180.3 cm Missy Khoury MD Work Phone: [facility] 10-02-2024 11:54-0400 Body mass index (BMI) [Ratio] 23.15 kg/m2 Missy Khoury MD Work Phone: [facility] 10-02-2024 11:54-0400 Body weight 75.3 kg Missy Khoury MD Work Phone: [facility] 10-02-2024 11:54-0400 Diastolic blood pressure 64 mm[Hg] Missy Khoury MD Work Phone: [facility] 10-02-2024 11:54-0400 Heart rate 64 /min Missy Khoury MD Work Phone: [facility] 10-02-2024 11:54-0400 Systolic blood pressure 142 mm[Hg] Missy Khoury MD Work Phone: [facility] 09-04-2024 08:03-0400 Body height 175.3 cm Nirav Bello DO Work Phone: [facility] 09-04-2024 08:03-0400 Body mass index (BMI) [Ratio] 24.96 kg/m2 Nirav Bello DO Work Phone: [facility] 09-04-2024 08:03-0400 Body weight 76.66 kg Nirav Bello DO Work Phone: [facility] 09-04-2024 08:03-0400 Diastolic blood pressure 72 mm[Hg] Nirav Bello DO Work Phone: [facility] 09-04-2024 08:03-0400 Heart rate 62 /min Nirav Bello DO Work Phone: [facility] 09-04-2024 08:03-0400 SaO2% (BldA) [Mass fraction] 96 % Nirav Bello DO Work Phone: [facility] 09-04-2024 08:03-0400 Systolic blood pressure 138 mm[Hg] Nirav Bello DO Work Phone: [facility] 08-09-2024 11:25-0400 Diastolic blood pressure 87 mm[Hg] Nirav Bello DO Work Phone: [facility] 08-09-2024 11:25-0400 Heart rate 74 /min Nirav Bello DO Work Phone: [facility] 08-09-2024 11:25-0400 Respiratory rate 16 /min Nirav Bello DO Work Phone: [facility] 08-09-2024 11:25-0400 SaO2% (BldA) [Mass fraction] 96 % Nirav Bello DO Work Phone: [facility] 08-09-2024 11:25-0400 Systolic blood pressure 171 mm[Hg] Nirav Bello DO Work Phone: [facility] 08-09-2024 10:05-0400 Body height 180.34 cm Nirav Bello DO Work Phone: [facility] 08-09-2024 10:05-0400 Body temperature 97.5 [degF] Nirav Bello DO Work Phone: [facility] 08-09-2024 10:05-0400 Body weight 75.29 kg Nirav Bello DO Work Phone: [facility] 05-10-2024 09:57-0500 Body height 175.3 cm Nirav Bello DO Work Phone: [facility] 05-10-2024 09:57-0500 Body mass index (BMI) [Ratio] 24.81 kg/m2 Nirav Bello DO Work Phone: [facility] 05-10-2024 09:57-0500 Body weight 76.2 kg Nirav Bello DO Work Phone: [facility] 05-10-2024 09:57-0500 Diastolic blood pressure 66 mm[Hg] Nirav Bello DO Work Phone: [facility] 05-10-2024 09:57-0500 Heart rate 72 /min Nirav Bello DO Work Phone: [facility] 05-10-2024 09:57-0500 SaO2% (BldA) [Mass fraction] 97 % Nirav Bello DO Work Phone: [facility] 05-10-2024 09:57-0500 Systolic blood pressure 136 mm[Hg] Niravata Bello DO Work Phone: [facility] 05-01-2024 14:07-0500 Diastolic blood pressure 94 mm[Hg] Missy Khoury MD Work Phone: [facility] 05-01-2024 14:07-0500 Systolic blood pressure 174 mm[Hg] Missy Khoury MD Work Phone: [facility] 05-01-2024 13:39-0500 Body height 180.3 cm Missy Khoury MD Work Phone: [facility] 05-01-2024 13:39-0500 Body mass index (BMI) [Ratio] 23.99 kg/m2 Missy Khoury MD Work Phone: [facility] 05-01-2024 13:39-0500 Body weight 78.02 kg Missy Khoury MD Work Phone: [facility] 05-01-2024 13:39-0500 Heart rate 48 /min Missy Khoury MD Work Phone: [facility] 02-21-2024 07:52-0400 Body height 180.[address] 02-21-2024 07:52-0400 Body mass index (BMI) [Ratio] 23.71 kg/m2 [address] 02-21-2024 07:52-0400 Body weight 77.[address] 02-21-2024 07:52-0400 Diastolic blood pressure 84 mm[Hg] [address] 02-21-2024 07:52-0400 Systolic blood pressure 142 mm[Hg] Sindi 2 [facility] 02-07-2024 09:44-0400 Diastolic blood pressure 86 mm[Hg] Sindi 1 [facility] 02-07-2024 09:44-0400 Heart rate 66 /min Sindi 1 [facility] 02-07-2024 09:44-0400 Systolic blood pressure 138 mm[Hg] Sindi 1 [facility] 01-13-2024 16:15-0400 Diastolic blood pressure 100 mm[Hg] Missy Khoury MD Work Phone: [facility] 01-13-2024 16:15-0400 Systolic blood pressure 162 mm[Hg] Missy Khoury MD Work Phone: [facility] 01-13-2024 15:24-0400 Body height 180.3 cm Missy Khoury MD Work Phone: [facility] 01-13-2024 15:24-0400 Body mass index (BMI) [Ratio] 23.71 kg/m2 Missy Khoury MD Work Phone: [facility] 01-13-2024 15:24-0400 Body weight 77.11 kg Missy Khoury MD Work Phone: [facility] 01-13-2024 15:24-0400 Heart rate 72 /min Missy Khoury MD Work Phone: [facility] 01-11-2024 09:54-0400 Body height 175.3 cm Nirav Bello DO Work Phone: [facility] 01-11-2024 09:54-0400 Body mass index (BMI) [Ratio] 24.22 kg/m2 Nirav Bello DO Work Phone: [facility] 01-11-2024 09:54-0400 Body weight 74.39 kg Nirav Bello DO Work Phone: [facility] 01-11-2024 09:54-0400 Heart rate 75 /min Nirav Bello DO Work Phone: [facility] 01-11-2024 09:54-0400 SaO2% (BldA) [Mass fraction] 97 % Nirav Bello DO Work Phone: [facility] 07-13-2023 08:34-0500 Body height 180.3 cm Epifanio Davis MD Work Phone: [facility] 07-13-2023 08:34-0500 Body mass index (BMI) [Ratio] 23.99 kg/m2 Epifanio Davis MD Work Phone: [facility] 07-13-2023 08:34-0500 Body weight 78.02 kg Epifanio Davis MD Work Phone: [facility] 07-13-2023 08:34-0500 Diastolic blood pressure 64 mm[Hg] Epifanio Davis MD Work Phone: [facility] 07-13-2023 08:34-0500 Heart rate 60 /min Epifanio Davis MD Work Phone: [facility] 07-13-2023 08:34-0500 Systolic blood pressure 108 mm[Hg] Epifanio Davis MD Work Phone: [facility] 11-17-2022 14:15-0400 Body height 180.34 cm Imad Asaad Other [employer] Other 11-17-2022 14:15-0400 Body mass index (BMI) [Ratio] 23.71 kg/m2 Imad Asaad Other [employer] Other 11-17-2022 14:15-0400 Body weight 77.11 kg Imad Asaad Other [employer] Other 11-17-2022 14:15-0400 Diastolic blood pressure 78 mm[Hg] Imad Asaad Other [employer] Other 11-17-2022 14:15-0400 Systolic blood pressure 127 mm[Hg] Imad Asaad Other [facility] [employer] Other 07-14-2022 09:08-0500 Body height 180.34 cm Nirav Bello Work Phone: [facility] DO Work Phone: 07-14-2022 09:08-0500 Body mass index (BMI) [Ratio] 24.13 kg/m2 Nirav Bello Work Phone: [facility] DO Work Phone: 07-14-2022 09:08-0500 Body surface area Derived from formula 1.98 m2 Nirav Bello Work Phone: [facility] DO Work Phone: 07-14-2022 09:08-0500 Body weight 78.47 kg Nirav Bello Work Phone: [facility] DO Work Phone: 07-14-2022 09:08-0500 Diastolic blood pressure 78 mm[Hg] Nirav Bello Work Phone: [facility] DO Work Phone: 07-14-2022 09:08-0500 Heart rate 68 /min Nirav Bello Work Phone: [facility] DO Work Phone: 07-14-2022 09:08-0500 Systolic blood pressure 124 mm[Hg] Nirav Bello Work Phone: [facility] DO Work Phone: 07-03-2021 15:20-0500 Diastolic blood pressure 78 mm[Hg] Nirav Bello Work Phone: [facility] DO Work Phone: 07-03-2021 15:20-0500 Heart rate 65 /min Nirav Bello Work Phone: [facility] DO Work Phone: 07-03-2021 15:20-0500 Systolic blood pressure 136 mm[Hg] Nirav Bello Work Phone: [facility] DO Work Phone: 07-03-2021 15:17-0500 Body height 180.34 cm Nirav Bello Work Phone: [facility] DO Work Phone: 07-03-2021 15:17-0500 Body mass index (BMI) [Ratio] 24.97 kg/m2 Nirav Bello Work Phone: [facility] DO Work Phone: 07-03-2021 15:17-0500 Body surface area Derived from formula 2.01 m2 Nirav Bello Work Phone: [facility] DO Work Phone: 07-03-2021 15:17-0500 Body weight 81.19 kg Nirav Bello Work Phone: [facility] DO Work Phone: 07-03-2021 15:17-0500 Diastolic blood pressure 80 mm[Hg] Nirav Bello Work Phone: [facility] DO Work Phone: 07-03-2021 15:17-0500 Systolic blood pressure 151 mm[Hg] Nirav Bello Work Phone: [facility] DO Work Phone: Encounters Encounter Date Encounter Type Care Provider Facility Start: 10-02-2024 End: 10-02-2024 Office outpatient visit 25 minutes Missy Khoury MD Work Phone: [facility] Comment on above: Paroxysmal atrial fi brillation (Multi); Primary hypertension; Stage 3a chronic kidney disease (Multi); 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 I through stage IV, or unspecified; Nonrheumatic mitral valve regurgitation; Mixed hyperlipidemia; Type 2 diabetes mellitus without complication, without long-term current use of insulin; Medication course changed; Body mass index (BMI) of 23.0 to 23.9 in adult; Former smoker Start: 10-02-2024 End: 10-02-2024 ambulatory [facility] Start: 09-13-2024 End: 09-13-2024 Bamboo flowsheet Aamir Talbert MD Work Phone: [facility] Start: 09-13-2024 End: 09-13-2024 Bamboo flowsheet Aamir Talbert MD Work Phone: [facility] Start: 09-13-2024 End: 09-13-2024 Postop follow up visit related to original px Aamir Talbert MD Work Phone: [facility] Comment on above: Encounter for remova l of sutures Start: 09-13-2024 End: 09-13-2024 ambulatory AAMIR TALBERT Not Available Start: 09-04-2024 End: 09-04-2024 Office outpatient visit 40 minutes Nirav Bello DO Work Phone: [facility] Comment on above: PAF (paroxysmal atri al fibrillation) (CMS/HCC) (Primary Dx); Stage 3a chronic kidney disease (HCC) (CMS/HCC); Type 2 diabetes mellitus with other specified complication, without long-term current use of insulin; Mixed hyperlipidemia (CMS/HCC); Exocrine pancreatic insufficiency (CMS/HCC); Primary hypertension (CMS/HCC) Start: 09-04-2024 End: 09-04-2024 ambulatory NIRAV BELLO Not Available Start: 08-30-2024 End: 08-30-2024 Patient encounter procedure Laura Barrow MD Work Phone: [facility] Comment on above: 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, including shoulder (Primary Dx) Start: 08-30-2024 End: 08-30-2024 ambulatory LAURA SCHROEDERI Not Available Start: 08-25-2024 End: 08-25-2024 Clinisync Result Encounter Generic External Data Provider [facility] External Department Unsolicited Start: 08-25-2024 End: 08-25-2024 Clinisync Result Encounter Generic External Data Provider [facility] External Department Unsolicited Start: 08-09-2024 End: 08-09-2024 Admission to same day surgery center Nirav Bello DO Work Phone: [facility] [place] Start: 08-09-2024 End: 08-09-2024 ambulatory Nirav Bello DO Work Phone: [facility] Work Phone: Start: 08-04-2024 End: 08-04-2024 ambulatory OLGA DALEY Not Available Start: 07-26-2024 End: 07-26-2024 Patient encounter procedure Laura Barrow MD Work Phone: [facility] Comment on above: 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, including hip (Primary Dx) Start: 07-26-2024 End: 07-26-2024 ambulatory LAURA SCHROEDERI Not Available Start: 07-26-2024 End: 07-26-2024 Bamboo flowsheet Laura Barrow MD Work Phone: [facility] Start: 07-26-2024 End: 07-26-2024 Bamboo flowsheet Laura Barrow MD Work Phone: [facility] Start: 07-14-2024 End: 07-14-2024 Bamboo flowsheet Laura aBrrow MD Work Phone: [facility] Start: 07-14-2024 End: 02-21-2025 Bamboo flowsgeno Barrow MD Work Phone: [facility] Start: 07-14-2024 End: 07-14-2024 Patient encounter procedure Laura Barrow MD Work Phone: [facility] Comment on above: Neoplasm of unspecif [...] External Department Unsolicited Start: 06-30-2024 End: 06-30-2024 Nanette Barrow MD Work Phone: [facility] Start: 06-30-2024 End: 06-30-2024 Bamboo linda Barrow MD Work Phone: [facility] Start: 06-30-2024 End: 06-30-2024 Patient encounter procedure Laura Barrow MD Work Phone: [facility] Comment on above: Basal cell carcinoma (BCC) of skin of left upper extremity including shoulder (Primary Dx); Skin neoplasm Start: 06-30-2024 End: 06-30-2024 ambulatory LAURA BARROW Not Available Start: 05-10-2024 End: 05-10-2024 Bamboo flowsgeno Bello DO Work Phone: [facility] Start: 05-10-2024 End: 05-10-2024 Bamboo 3[employer] Roboticsgeno Bello DO Work Phone: [facility] Start: 05-10-2024 End: 05-10-2024 Office outpatient visit 40 minutes Nirav Bello DO Work Phone: [facility] Comment on above: Allergic [...] 25 minutes Missy Khoury MD Work Phone: [facility] Comment on above: Encounter to discuss test results (Primary Dx); Paroxysmal atrial fibrillation (Multi); Nonrheumatic mitral valve regurgitation; 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); Essential hypertension; Prostate cancer (Multi); PVC (premature ventricular contraction); Mixed hyperlipidemia; Type 2 diabetes mellitus without complication, without long-term current use of insulin (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); 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; Former smoker; Body mass index (BMI) of 23.0 to 23.9 in adult Start: 05-01-2024 End: 05-01-2024 ambulatory [facility] Ambulatory Start: 04-27-2024 End: 04-27-2024 Nanette Barrow MD Work Phone: [facility] Start: 04-27-2024 End: 04-27-2024 Nanette Barrow MD Work Phone: [facility] Start: 04-27-2024 End: 04-27-2024 [...] External Department Unsolicited Start: 02-21-2024 End: 02-21-2024 [facility] Start: 02-21-2024 End: 02-21-2024 Subsequent hospital visit by physician Sindi Hernadez Echo/Vasc Room 2 [facility] Comment on above: PVC (premature ventr icular contraction); Paroxysmal atrial fibrillation (Multi) Start: 02-07-2024 End: 02-07-2024 Subsequent hospital visit by physician Sindi Farr Nm 1 [facility] Comment on above: PVC (premature ventr icular contraction); 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; Ventricular arrhythmia; Abnormal electrocardiogram (ECG) (EKG) Start: 02-07-2024 End: 02-07-2024 [facility] Start: 02-03-2024 End: 02-03-2024 Clinisync Result Encounter Generic External Data Provider [facility] External Department Unsolicited Start: 02-03-2024 End: 02-03-2024 Clinisync Result Encounter Generic External Data Provider [facility] External Department Unsolicited Start: 01-13-2024 End: 01-13-2024 Office outpatient visit 25 minutes Missy Khoury MD Work Phone: [facility] Comment on above: Ventricular arrhythm ia (Primary Dx); PVC (premature ventricular contraction); Paroxysmal atrial fibrillation (Multi); 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; 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; High risk medication use; Mixed hyperlipidemia; Uncontrolled hypertension; Former smoker; Type 2 diabetes mellitus without complication, without long-term current use of insulin (Multi); Stage 3a chronic kidney disease (Multi); Prostate cancer (Multi); Abnormal electrocardiogram (ECG) (EKG) Start: 01-13-2024 End: 01-13-2024 [facility] Start: 01-11-2024 End: 01-11-2024 Office outpatient visit 25 minutes Nirav Bello DO Work Phone: [facility] Comment on above: Primary hypertension (CMS/HCC) [...] End: 09-13-2023 Patient encounter procedure DO Nirav Ace Work Phone: [facility] Work Phone: Start: 09-13-2023 End: 09-13-2023 ambulatory DO Nirav Bello Work Phone: [facility] Work Phone: Start: 07-13-2023 End: 07-13-2023 Office outpatient visit 25 minutes Epifanio Davis MD Work Phone: [facility] Comment on above: Benign essential hyp ertension (Primary Dx); Mixed hyperlipidemia; Paroxysmal atrial fibrillation ([facility]/HCC); Former smoker Start: 11-26-2022 End: 11-26-2022 ambulatory DO Niravata Bello Work Phone: [facility] Work Phone: Start: 11-26-2022 End: 11-26-2022 Patient encounter procedure DO Niravata Bello Work Phone: [facility] [place] Work Phone: Start: 11-17-2022 End: 11-17-2022 ambulatory Imad Asaad Other [facility] [employer] Other Start: 11-17-2022 Office outpatient ne w 45 minutes Imad Asaad [facility] Start: 11-17-2022 Telephone encounter Imad Asaad [facility] Start: 09-03-2022 End: 09-04-[address] NIRAV BELLO Facility:[facility]1 Start: 07-14-2022 Office outpatient vi sit 25 minutes Nirav Bello Work Phone: [facility] [address] DO Work Phone: Start: 07-14-[address] Nirav Kulkarni Facility:[id number] Start: 05-25-2022 End: 05-26-[address] NIRAV BELLO Facility:[facility]1 Start: 05-06-2022 End: 05-07-[address] NIRAV BELLO Facility:[facility]1 Start: 03-27-2022 Rx Renewal Nirav mae Work Phone: [facility] 250 DO Work Phone: Start: 12-05-2021 End: 12-05-2021 Patient encounter procedure DO Nirav Bello Work Phone: [facility]Pre-Surgical Testing Start: 11-20-2021 End: 11-21-[address] DOCTOR BISHOP Facility:[facility]1 Start: 11-05-2021 End: 11-06-[address] NIRAV BELLO Facility:[facility]1 Start: 07-03-2021 Office outpatient vi sit 25 minutes Nirav Bello Work Phone: [facility] 250 DO Work Phone: Start: 03-05-2021 Rx Renewal Marina lozada MD Work Phone: [facility] [address] DO Work Phone: Start: 07-12-2020 End: 07-12-2020 Discharged Recurring Nirav Bello [facility]Cov[facility] Vaccine Procedures Date Procedure Procedure Detail Performing Clinician Start: 08-30-2024 SKIN EXCISION Laura morris MD Work Phone: Start: 08-30-2024 SKIN REPAIR Laura monahan MD Work Phone: Start: 08-25-2024 ALL CBC WITH AUTO DIFF Generic External Data Provider Start: 08-09-2024 Graft of skin to skin J bryn Bello DO Work Phone: Start: 08-09-2024 Local excision Nirav Bello DO Work Phone: Start: 07-26-2024 SKIN EXCISION Laura morris MD Work Phone: Start: 07-14-2024 End: 07-14-2024 SKIN / NAIL BIOPSY Laura Barrow MD Work Phone: Start: 07-06-2024 [facility] CMP (CMP) (FOR [facility] [place] USE) Generic External Data Provider Start: 06-30-2024 [...] DO Nirav Bello Work Phone: Start: 07-13-2023 Ecg routine ecg w/le ast 12 lds w/i&r Epifanio Davis MD Work Phone: Start: 12-24-2022 Colonoscopy Nirav orellana DO Work Phone: Start: 11-26-2022 Computed tomography of abdomen and pelvis with contrast DO Nirav Bello Work Phone: Start: 05-25-[address] DOCTOR BISHOP Comment on above: Performed By: #### L IPID, TSH, CMP #### [facility] [address] [place], [place] [address] Dr. Leesa Urbina Start: 11-20-[address] DOCTOR BISHOP Comment on above: Performed By: #### P SAD #### [facility] [address] [place] [address] [address] Leesa Urbina Appendectomy Nirav daniel Work Phone: Cataract surgery Nirav morris Work Phone: Colonoscopy Nirav daniel Work Phone: Comment on above: [id number] Jovanny Yu; Operation on lip Nirav morris Work Phone: Prostatectomy Nirav mae Work Phone: Plan of Treatment Date Care Activity Detail Author Start: 12-24-2032 Screening for malignant neoplasm of colon [facility] Start: 03-16-2026 Glaucoma screening Diabetes: Retinopathy Screening [facility] Start: 11-08-2025 Screening for osteoporosis Bone Density Scan [facility] Start: 12-14-2024 End: 12-14-2024 Patient encounter procedure 12/14/2024 10:30 AM EDT Office Visit [facility] [address] [facility] [address] [place] [address] Missy Khoury MD [address] [facility] [address] [place] [address] [facility] Start: 11-09-2024 End: 11-09-2024 Patient encounter procedure 11/09/2024 9:30 AM EDT Office Visit [facility] [address] [place] [id number] Nirav Bello DO [address] [place] [address] [facility] Start: 10-31-2024 Urine screening for protein Diabetes: [facility]rine [facility] Start: 10-26-2024 End: 10-26-2024 Patient encounter procedure 10/26/2024 9:35 AM EDT Office Visit [facility] [address] [place] [address] Laura Barrow MD [address] [place] [address] [facility] Start: 10-02-2024 End: 10-02-2024 Patient encounter procedure 10/02/2024 11:45 AM EDT Office Visit [facility] [address] [facility] [address] [place] [address] Missy Khoury MD [address] [facility] [address] [place] [address] [facility] Start: 09-22-2024 COVID-19 Vaccine ( season) COVID-19 Vaccine ( season) [facility] Start: 09-13-2024 End: 09-13-2024 Patient encounter procedure [facility] Comment on above: Arrived Start: 08-30-2024 End: 08-30-2024 Patient encounter procedure 08/30/2024 10:30 AM EDT Office Visit [facility] [address] [place] [address] Laura Barrow MD [address] [place] [address] [facility] Start: 08-09-[address] [facility] Start: 03-18-2025 Hemoglobin A1c measurement Diabetes: Hemoglobin A1C [facility] Start: 07-26-2024 End: 07-26-2024 Patient encounter procedure 07/26/2024 2:50 PM EST Office Visit [facility] [address] [place] [phone] Laura Barrow MD [address] [place] [address] Arrived [facility] Comment on above: Arrived Start: 07-18-2024 End: 07-18-2024 Patient encounter procedure [facility] Start: 07-14-2024 End: 07-14-2024 Patient encounter procedure [facility] Comment on above: Arrived Start: 06-30-2024 End: 06-30-2024 Patient encounter procedure [facility] Comment on above: Arrived Start: 05-22-2024 End: 05-22-2024 Patient encounter procedure 05/22/2024 8:30 AM EST Office Visit [facility] [address] [place] [address] Nirav Bello DO [address] [place] [address] [facility] Start: 05-12-2024 Medicare Annual Wellness (AWV) Medicare Annual Wellness (AWV) [facility] Start: 05-10-2024 End: 05-10-2024 Patient encounter procedure 05/10/2024 9:30 AM EST Office Visit [facility] [address] [place] [address] Nirav Bello, [address] [place] [address] Other thrombophilia (CMS/HCC) [facility] Comment on above: Other thrombophilia (CMS/HCC) Start: 05-01-2024 End: 05-01-2024 Patient encounter procedure 05/01/2024 1:45 PM EST Office Visit [facility] [address] [place] [address] Missy Khoury MD [address] [address] [facility] Start: 04-27-2024 End: 04-27-2024 Patient encounter procedure [facility] Comment on above: Arrived Start: 02-28-2024 End: 02-28-2024 Patient encounter procedure 02/28/2024 3:30 PM EDT Office Visit [address] [address] Missy Khoury MD [address] [address] [facility] Start: 02-21-2024 End: 02-21-2024 Patient encounter procedure 02/21/2024 7:45 AM EDT Appointment Josh [address] [address] [facility] Start: 02-07-2024 End: 02-07-2024 Professional / ancillary services management 02/07/2024 11:00 AM EDT Ancillary Procedure [address] [address] [facility] Start: 02-07-2024 End: 02-07-2024 Patient encounter procedure 02/07/2024 10:15 AM EDT Appointment Josh [address] [address] Josh [facility] Start: 02-07-2024 End: 02-07-2024 [facility] Start: 01-27-2024 End: 01-12-2025 Basic metabolic 2000 panel - Serum or Plasma Basic Metabolic Panel Lab Routine Uncontrolled hypertension Expected: 01/27/2024 (Approximate), Expires: 01/12/2025 [facility] Work Phone: Comment on above: Expected: 01/27/2024 (Approximate), Expi res: 01/12/2025 Start: 01-23-2024 COVID-19 Vaccine ( season) COVID-19 Vaccine () [facility] Start: 01-23-2024 Influenza vaccination Influenza Vaccine (#1) [facility] Start: 01-13-2024 End: 01-12-2025 Holter monitor study 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 Routine PVC (premature ventricular contraction) Paroxysmal atrial fibrillation (Multi) Expected: 01/13/2024 (Approximate), Expires: 01/12/2025 [facility] Work Phone: Comment on above: Expected: 01/13/2024 (Approximate), Expi res: 01/12/2025 Start: 01-13-2024 End: 01-12-2026 NM Heart Perfusion W stress and W radionuclide IV Nuclear Stress Test Cardiac Nuclear Medicine Routine PVC (premature ventricular contraction) 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 Ventricular arrhythmia Abnormal electrocardiogram (ECG) (EKG) Expected: 01/13/2024 (Approximate), Expires: 01/12/2026 [facility] Work Phone: Comment on above: Expected: 01/13/2024 (Approximate), Expi res: 01/12/2026 Start: 01-13-2024 End: 01-12-2026 US Heart Transthoracic Transthoracic Echo Complete Echocardiography Routine PVC (premature ventricular contraction) Paroxysmal atrial fibrillation (Multi) Expected: 01/13/2024 (Approximate), Expires: 01/12/2026 [facility] Service Area Work Phone: Comment on above: Expected: 01/13/2024 (Approximate), Expi res: 01/12/2026 Start: 12-12-2023 Glaucoma screening Diabetes: Retinopathy Screening [facility] Start: 08-28-2023 COVID-19 Vaccine ( season) COVID-19 Vaccine () [facility] Start: 07-13-2023 FUV, Provider: Epifanio Davis, Status: Pen, Time: 8:50 AM FUV, Provider: Epifanio Davis, Status: Pen, Time: 8:50 AM -[facility] [address] DO Work Phone: Start: 02-05-2023 Hemoglobin A1c measurement Diabetes: Hemoglobin A1C [facility] Start: 07-14-2022 FUV, Provider: Epifanio Davis, Status: Pen, Time: 9:10 AM FUV, Provider: Epifanio Davis, Status: Pen, Time: 9:10 AM -[facility] 250 DO Work Phone: Start: 06-24-2021 FUV, Provider: Epifanio Davis, Status: Pen, Time: 10:15 AM FUV, Provider: Epifanio Davis, Status: Pen, Time: 10:15 AM -[facility] [address] DO Work Phone: Start: 2013 RSV High Risk: (Elderly (60+) or Population) (1 - 1-dose 75+ series) RSV High Risk: (Elderly (60+) or Population) (1 - 1-dose 75+ series) [facility] Start: 1998 RSV patients and/or patients aged 60+ years (1 - 1-dose 60+ series) RSV patients and/or patients aged 60+ years (1 - 1-dose 60+ series) [facility] Start: 1960 DTaP/Tdap/Td Vaccines (1 - Tdap) DTaP/Tdap/Td Vaccines (1 - Tdap) [facility] Start: 1957 Urine screening for protein Diabetes: Urine Protein Screening [facility] Start: 1948 Diabetic foot examination Diabetes: Foot Exam [facility] Start: 1948 Glaucoma screening Diabetes: Retinopathy Screening [facility] Start: 1938 Annual wellness visit Welcome to Medicare Visit [facility] Start: 1938 Hemoglobin A1c measurement Diabetes: Hemoglobin A1C [facility] Start: 1938 Lipid panel Lipid Panel [facility] Start: 1938 Medicare Annual Wellness (AWV) Medicare Annual Wellness (AWV) [facility] Start: 01-21-1939 Medicare Annual Wellness Visit Medicare Annual Wellness Visit (AWV) [facility] Start: 1938 Screening for malignant neoplasm of colon [facility] Start: 1938 Urine screening for protein Diabetes: Urine Protein Screening [facility] Dermatopathology exam Dermatopat hology exam Pathology and Cytology Timed Basal cell carcinoma (BCC) of skin of left upper extremity including shoulder Release Upon Ordering for 1 Occurrences starting 06/30/2024 [facility] [employer] Work Phone: Comment on above: Release Upon Ordering for 1 Occurrences starting 06/30/2024 Dermatopathology exam Dermatopat hology exam Pathology and Cytology Timed Neoplasm of unspecified behavior of bone, soft tissue, and skin Release Upon Ordering for 1 Occurrences starting 07/14/2024 [facility] [employer] Work Phone: Comment on above: Release Upon Ordering for 1 Occurrences starting 07/14/2024 Dermatopathology exam Dermatopat hology exam Pathology and Cytology Timed 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, including hip Release Upon Ordering for 1 Occurrences starting 07/26/2024 [facility] [employer] Work Phone: Comment on above: Release Upon Ordering for 1 Occurrences starting 07/26/2024 Dermatopathology exam Dermatopat hology exam Pathology and Cytology Timed Squamous cell carcinoma of skin of left upper limb, including shoulder Release Upon Ordering for 1 Occurrences starting 08/30/2024 [facility] [employer] Work Phone: Comment on above: Release Upon Ordering for 1 Occurrences starting 08/30/2024 HIV 1+2 Ab+HIV1 p24 Ag [Presence] in Serum or Plasma by Immunoassay [facility] Patient Education Know your Meds [facility] Work Phone: Patient referral [facility] Work Phone: Immunizations Immunization Date Immunization Notes Care Provider Fa cili 03-25-2024 Seasonal trivalent influenza vaccine, adjuvanted, preservative free Missy Khoury MD Work Phone: [facility] Work Phone: 03-25-2024 influenza virus vacc ine, unspecified formulation Laura Barrow MD Work Phone: [facility] 03-20-2023 Influenza, Seasonal, Quadrivalent, Adjuvanted Nirav Bello DO Work Phone: [facility] 03-20-2023 influenza virus vacc ine, unspecified formulation Nirav Ace DO Work Phone: [facility] 04-03-2022 Moderna COVID-19 Biv al Booster 50 MCG/0.5ML Intramuscular Suspension Nirav Vargas Ace Work Phone: [facility] 250 DO Work Phone: 03-10-2022 Fluad Quadrivalent 0 .5 ML Intramuscular Prefilled Syringe Nirav Vargas Ace Work Phone: [facility] 250 DO Work Phone: 12-19-2021 Moderna COVID-19 Vac cine 100 MCG/0.5ML Intramuscular Suspension Niravata Bello Work Phone: [facility] 250 DO Work Phone: 03-20-2021 Moderna COVID-19 Vac cine 100 MCG/0.5ML Intramuscular Suspension Nirav Bello Work Phone: [facility] 03-19-2021 Moderna SARS-CoV-2 Booster Vaccination Nirav Ace DO Work Phone: [facility] 03-12-2021 influenza, high dose seasonal, preservative-free Nirav Vargas Ace Work Phone: [facility] 02-26-2021 Fluzone High-Dose Quadrivalent 0.7 ML Intramuscular Suspension Prefilled Syringe Nirav Downingman Work Phone: [facility] 250 DO Work Phone: 07-12-2020 COVID-19 mRNA-1273 (Moderna) [facility] 06-15-2020 COVID-19 mRNA-1273 (Moderna) [facility] 03-15-2020 Fluad Quadrivalent 0 .5 ML Intramuscular Prefilled Syringe Nirav Bello Work Phone: [facility] 02-24-2020 influenza, high dose seasonal, preservative-free Nirav Bello Work Phone: [facility] [employer] 250 DO Work Phone: 03-11-2019 zoster vaccine recombinant [facility]: [facility] Work Phone: 03-01-2019 influenza, high dose seasonal, preservative-free [facility] Work Phone: 02-21-2019 influenza, high dose seasonal, preservative-free Nirav Bello [facility] Phone[facility] Work Phone: 12-22-2018 zoster vaccine recombinant [facility]av [facility]ello Work Phone: [facility] Work Phone: 02-25-2018 influenza, high dose seasonal, preservative-free Nirav Bello [facility] Work Phone: 03-16-2017 influenza, high dose seasonal, preservative-free [facility]irav Bello Work [facility]: [facility] Work Phone: 05-24-2016 pneumococcal conjuga te vaccine, 13 valent Nirav Alicia DowningAce Work Phone: [facility] 03-30-2016 influenza, high dose seasonal, preservative-free Nirav Downingman DO Work Phone: [facility] 05-02-2015 seasonal influenza, intradermal, preservative free Nirav Downingman DO Work Phone: [facility] 03-22-2015 influenza, high dose seasonal, preservative-free Nirav Bello Work Phone: [facility] 250 DO Work Phone: 12-14-2013 pneumococcal conjuga te vaccine, 13 valent Nirav Bello DO Work Phone: [facility] 10-10-2012 zoster vaccine, live Nirav Bello DO Work Phone: [facility] 05-24-2012 pneumococcal polysaccharide vaccine, 23 valent Nirav Bello Work Phone: [facility] 05-31-2009 novel influenza-H1N1 -09, preservative-free, injectable Nirav Bello Work Phone: [facility] [employer] 250 DO Work Phone: 07-23-2003 pneumococcal polysaccharide vaccine, 23 valent Nirav Bello DO Work Phone: [facility] Healthcare Payers Date Payer Category Payer Self-pay [id number] 2023 Medicare (Managed Care) [employer] [facility] MEDICARE [id number] 2022 Medicaid [employer] MEDICARE A DVANTAGE [id number] 2022 Medicare [id number] 1959 Private Health Insurance [facility] [id number] 1938 Unknown [id number] 2.16.840.1.713616.3.579.2. 356 1938 Unknown [id number] 2.16.840.1.819503.3.579.2. 593 1938 Unknown [id number] 2.16.840.1.560909.3.579.2. 593 1938 Unknown [id number] 2.16.840.1.591994.3.579.2. 593 1938 Unknown [id number] 2.16.840.1.526039.3.579.2. 593 1938 Unknown [id number] 2.16.840.1.672680.3.579.2. 593 1938 Unknown [id number] 2.16.840.1.310611.3.579.2. 1246 1938 Unknown [id number] 2.16.840.1.646012.3.579.2. 1246 1938 Unknown [id number] 2.16.840.1.345695.3.579.2. 1246 1938 Unknown [id number] 2.16.840.1.899622.3.579.2. 1246 1938 Unknown [id number] 2.16.840.1.661825.3.579.2. 1246 1938 Unknown [id number] 2.16.840.1.463836.3.579.2. 1246 1938 Unknown [id number] 2.16.840.1.907801.3.579.2. 125 1938 Unknown [id number] 2.16.840.1.023153.3.579.2. 1258 1938 Unknown [id number] 2.16.840.1.269397.3.579.2. 125 1938 Unknown [id number] 2.16.840.1.692473.3.579.2. 125 1938 Unknown [id number] 2.16.840.1.464433.3.579.2. 1258 1938 Unknown [id number] 2.16.840.1.710801.3.579.2. 1258 1938 Unknown [id number] 2.16.840.1.063508.3.579.2. 1258 1938 Unknown [id number] 2.16.840.1.194118.3.579.2. 1258 1938 Unknown [id number] 2.16.840.1.393000.3.579.2. 1258 1938 Unknown [id number] 2.16.840.1.966528.3.579.2. 1258 1938 Unknown [id number] 2.16.840.1.794542.3.579.2. 1258 1938 Unknown [id number] 2.16.840.1.729456.3.579.2. 125 1938 Unknown [id number] 2.16.840.1.484123.3.579.2. 1258 1938 Unknown [id number] 2.16.840.1.317789.3.579.2. 125 1938 Unknown [id number] 2.16.840.1.468139.3.579.2. 1259 1938 Unknown [id number] 2.16.840.1.030205.3.579.2. 1244 1938 Unknown [id number] 2.16.840.1.828745.3.579.2. 1244 1938 Unknown [id number] 2.16.840.1.108600.3.579.2. 1244 1938 Unknown [id number] 2.16840.1.604120.3.579.2. 1244 Medicare Medicare [id number] Private Health Insurance Self Pay [facility] [id number] Unknown [employer] Unknown [id number] 2.840.1.679540.3.579.2. 531 Unknown [id number] 2.0.1.086705.3.579.2. 531 Social History Date Type Detail Facility Tobacco smoking stat [facility] Unknown if ever smoked [facility] Start: 1940 Sex Assigned At Male [facility] Start: 07-13-2023 End: 10-02-2024 Never a smoker Never a smoker -[facility] 250 DO Work Phone: Comment on above: 2-3 drinks a month; Start: 12-05-2021 End: 01-13-2024 Tobacco smoking status NEIS Ex-smoker (finding) [facility] Start: 07-13-2023 End: 10-02-2024 Sex Assigned At [facility] [employer] Other Start: 06-12-1956 End: 05-24-1989 History of tobacco use Current smoker [facility] Work Phone: Start: 06-12-1956 End: 05-24-1989 History of tobacco use Cigarette Smoker [facility] Work Phone: Start: 07-13-2023 End: 01-13-2024 Tobacco use and exposure Smokeless tobacco non-user [facility] Work Phone: Start: 07-13-2023 End: 10-02-2024 Alcohol intake Lifetime non-drinker (finding) [facility] Work Phone: Start: 1940 Sex Assigned [facility] Start: 07-03-2023 End: 10-02-2024 Exposure to SARS-CoV-2 (event) Not sure [facility] History of tobacco use Pipe Smoker [facility] History of tobacco use Passive smoker [facility] Start: 01-11-2024 End: 09-13-2024 Alcoholic beverage intake Current drinker of alcohol [...] Alcohol Comment on occasion [facility] Start: 08-09-2024 Sex Male (finding) [facility] Goals Date Patient Goal Desired Activity /State Clinical Notes 07-14-2022 to 10-02-2024 Missy Khoury MD - 10/02/2024 11:45 AM EDTPatient Marika Talbert MD - 09/13/2024 10:45 AM EDT Note Date & Type Note Facility 10-02-2024 History of Present illness Narrative Images from [...] dyspnea dependent edema or claudication TIA or CVA type symptoms or bleeding diathesis Gastrointestinal: Negative for [...] Mixed hyperlipidemia 7. Paroxysmal atrial fibrillation 8. Uxc-wrkqzmq-utolqejra diabetes 9. [id number]-QKPr score of 4. 10. Long-term anticoagulation with rivaroxaban 11. EKG June 2023-[place] formed PVCs in a pattern of ventricular [...] B-12) 1,000 mcg tablet 1 tablet, Daily olqvjp-tkzumjqv-psklcxc (Creon) 24,000-76,000 -120,000 unit capsule 1 capsule, [...] data and diagnostic testing results that occurred after the last office visit with me Assessment: 1. [...] uncontrolled, we may have to consider continuing Toprol-XL and the amlodipine and switching to labetalol for alpha blocking properties. No symptoms of hypoglycemia. Follow up : 6-8 weeks IApril LPN am scribing for, and in the presence of Dr. Missy Khoury MD, FACC. I, Dr. Missy Khoury MD, FACC, personally performed the services described in the documentation as scribed by April Cheng LPN in my presence, and confirm it is both accurate and complete. documented in this encounter [facility] Work Phone: 10-02-2024 Instructions April Love LPN - 10/02/2024 11:45 AM [...] visit. BMI normal documented in this encounter [facility] Work Phone: 09-13-2024 History of Present illness Narrative Images from the original note were not included. Suture Removal Patient here for suture removal: No complaints of redness, drainage or swelling at site, compliant with wound care. Location: Left shoulder Procedure Performed: Excision Date of Procedure: 08/30/2024 Margins clear All pertinent medical history, medications, and allergies were reviewed. General Exam: alert, oriented to person, place, and time, normal affect, well appearing Unaccompanied A focused exam completed based on patient reported problems, see below: Skin Exam 1. ENCOUNTER FOR REMOVAL OF SUTURES Left Shoulder - Posterior Sutures are intact, Skin edges are well-approximated, Mild erythema along incision line, No drainage or edema noted Suture Removal: Procedure: Sutures were removed without difficulty. Tincture of Benzoin was applied around site in preparation of steri-strips. Steri-strips were applied Post-Procedure instructions: Instructed to discontinue wound care., Instructed to keep steri strips on for at least 5-7 days., Pathology results discussed. Next Visit: Has skin check scheduled documented in this encounter [facility] 09-04-2024 Evaluation note Diagnosis PAF (paroxysmal atrial fibrillation) (CMS/HCC)- Primary Atrial fibrillation Stage 3a chronic kidney disease (HCC) (CMS/HCC) Type 2 diabetes mellitus with other specified complication, without long-term current use of insulin Mixed hyperlipidemia (CMS/HCC) Mixed hyperlipidemia Exocrine pancreatic insufficiency (CMS/HCC) Other specified disease of pancreas Primary hypertension ([facility]/HCC) Unspecified essential hypertension documented [facility] this encounter [id number] History of Present illness Narrative* Laura Barrow MD - 08/30/2024 10:30 AM EDT Images from the original note were not included. Subjective Epifanio Walsh is a 84 y.o. male who presents for the following: Excision. Location: left shoulder Date of biopsy: 07/14/2024 Diagnosis: Invasive squamous cell carcinoma Pre-Op Checklist: History of pacemaker/defibrillator: No History of joint replacement in the past 2 years: No History of HIV/Hepatitis B/Hepatitis C: No Latex allergy: No Is the patient currently on a blood thinner? Yes. Xarelto (rivaroxaban). The patient was recommended to continue taking their blood thinner as usual before, during, and after the procedure. All pertinent medical history, medications, and allergies were reviewed. Surgical assistants: Siri Leblanc CMA and Re Cooper CMA Objective Well appearing patient in no apparent distress; mood and affect are within normal limits. 1. Squamous cell carcinoma of skin of left upper limb, including shoulder Left Shoulder Morning Glory macule at biopsy site Skin excision Lesion length (cm): 1.2 Lesion width (cm): 1.1 Margin per side (cm): 0.4 Total excision [...] in usual sterile fashion (The planned incision lineswere drawn along relaxed skin tension lines, if [...] lidocaine used: 9.0 ml Estimated blood loss: 1.0 ml Skin repair Complexity: Intermediate Final length (cm): 5.3 Reason for type of repair: allow closure of the large defect Undermining: edges undermined Undermining comment: The surrounding tissue was undermined until the skin edges could be approximated without undue tension. Any tissue redundancies were removed. Subcutaneous layers (deep stitches): Suture size: 3-0 Suture type comment: Biosyn Stitches: Buried horizontal mattress (Closure was performed in a layered fashion with subcutaneous tissue closed first using tension-bearing absorbable sutures to the level of the superficial fascia.) Fine/surface layer approximation (top stitches): Suture size: 4-0 Suture type: Prolene (polypropylene) Stitches: simple running Stitches comment: Epicuticular skin sutures were then placed with minimal tension. Outcome: patient tolerated procedure well with no complications Post-procedure details: sterile dressing applied and wound care instructions given Post-procedure details comment: It was emphasized to the patient to contact the office for any signs of infection, uncontrollable bleeding, or complications. Dressing type: bandage Specimen A - Dermatopathology exam Differential Diagnosis: SCC Check Margins: Yes Size of lesion: 1.2 x 1.1 cm Previous accession number: [id number] Follow up: 14 days for s/r documented in this encounterGold[facility] [id number] History of Present illness Narrative* Laura Barrow MD - 07/26/2024 2:50 PM EST Images from the original note were not [...] SCC Check Margins: yes Previous accession number: [id number] Shave excision completed today, see procedure note. Return to clinic prior to next scheduled visit for any signs or symptoms of recurrence, reviewed the signs and symptoms. Patient will be notified of results. Next Visit: as scheduled documented in this encounterGold[facility] [id number] History of Present illness Narrative* Laura Barrow MD - 07/14/2024 8:30 AM EST Suture Removal Patient here for suture removal: [...] discontinue wound care., Instructed to keep steri stripson for at least 5-7 days., Pathology results [...] Visit: pending biopsy results documented in this encounterGolden [facility] [id number] History of Present illness Narrative* Laura Barrow MD - 06/30/2024 8:30 AM EST Images from the original note were not [...] upper extremity including shoulder Left Upper Arm Morning Glory macule at biopsy site. Skin excision Lesion [...] in usual sterile fashion (The planned incision lineswere drawn along relaxed skin tension lines, if [...] BCC Check Margins: Yes Previous accession number: [id number] 2. Skin neoplasm (2) Left shoulder Erythematous, crusted papule. Right lower leg Erythematous, crusted papule. Biopsies deferred until suture removal due to insurance restrictions. Follow up: 14 days for s/r documented in this encounterGolden [facility] [id number] History of Present illness Narrative* Nirav Bello, - 05/10/2024 9:30 AM EST Images from the original note were not included. Epifanio Walsh is a 83 y.o. male presents with chief complaint of Hospital Follow-up (Pt presents hospital follow up at [facility] on 05/03 for hypertension. Pt [...] 10/01/2017 CATARACT EXTRACTION Right 10/28/2017 per in [place], [place]. COLONOSCOPY 2010 COLONOSCOPY 11/28/[address] Yu. JOINT REPLACEMENT Knee replacement MOHS SURGERY REPAIR 12/08/2021 left upper lip PROSTATECTOMY RADIATION ONCOLOGY SS 2008 35 Radiation Treatments,6-7 Disease :Reoccurance Prostrate Cancer [...] Name Age of Onset Heart disease Mother Novelda Heart disease Father Epifanio Melanoma Neg Hx MEDICATIONS: Current Outpatient Medications Medication Instructions atorvastatin (Lipitor) 20 MG tablet TAKE 1 TABLET AT NIGHT calcitriol (ROCALTROL) 0.5 mcg, Daily cloNIDine (CATAPRES) 0.1 mg, As needed Creon [id number] units capsule TAKE 1 CAPSULE IN THE [...] (paroxysmal atrial fibrillation) (CMS/HCC) Exocrine pancreatic insufficiency (CMS/HCC) Other Visit Diagnoses Allergic sinusitis - Primary [...] 12 hours taken PRN for a systolic greaterthan 160 or a diastolic greater than 90. 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 His heart rhythm has been regular and he s not had any chest pain or heart failure. His cardio pulmonary and G.I. review systems arenegative. He seems to be doing quite stable at this moment. I reviewed his lab which is satisfactory. At this point the only other issue is his chronic allergic sinusitis and he s going to go back onthe Flonase nasal spray. He s had no fever and denies any bloody discharge. I told him if he continues with [place] pressure in the next two or three weeks despite the steroid that we would consideraCT of his sinuses. As long as you are clear at this point. There s no demon on exam no JVD. No thyroid enlargement. Don t live adenopathy and the head or neck. I ll see him in six months for routine check up. This note was Dictated and not read. documented in this encounterGolden Valley [facility] [id number] History of Present illness Narrative* Missy Khoury MD - 05/01/2024 1:45 PM EST Most recent office visit December 2023. At [...] Mixed hyperlipidemia 7. Paroxysmal atrial fibrillation 8. Dqq-bwvyupg-vqsyosjdh diabetes 9. MDA7BZ7-OFVk score of 4. 10. Long-term anticoagulation with rivaroxaban 11. EKG June 2023-[place] formed PVCs in a pattern of ventricular [...] B-12) 1,000 mcg tablet 1 tablet, Daily nelajm-jugbfrdr-ktmuzrx (Creon) 24,000-76,000 -120,000 unit capsule 1 capsule, [...] disease 05/01/2024 PVC (premature ventricular contraction) 01/13/2024 residential current use of 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 01/13/2024 High [...] long-term current use of insulin (Multi) 10. residential current use of 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 11. Former [...] echo report. Left atrial size is normal PApressure was normal LV function and LV cavity size are normal. Patient is doing well clinically. Wewill continue to observe. Follow up : 6 months Provider Attestation - Britney Beckman documentation All medical record entries made by the Scribe were at my direction and personally dictated by me. Kamala reviewed the chart and agree that the record accurately reflects my personal performance of the history, physical exam, discussion and plan. [facility] Work Phone: 1(924) 730-266612-09-2024 Instructions* Patient Instructions* Britney Salgado LPN - 05/01/2024 1:45 PM [...] time of your visit. documented in this [facility] Work Phone: 1(366) 787-928708-22-2024 History of Present illness Narrative* Missy Khoury MD - 01/13/2024 2:30 PM EDT Patient is new to this provider. Most recently seen by Dr. Davis in June 2023. Has history ofatrial fibrillation and PVCs. Also has primary hypertension. Subjective : Reviewed most recent office note by Dr. Davis. At that time there was a concern [...] Lately they have been increasing in frequency. Theydo not make him lightheaded or dizzy, but [...] Mixed hyperlipidemia 7. Paroxysmal atrial fibrillation 8. Oig-hemqjbv-lhjpksuax diabetes 9. ASH2AV7-ODAz score of 4. 10. Long-term anticoagulation with rivaroxaban 11. EKG June 2023-[place] formed PVCs in a pattern of ventricular trigeminy and bigeminy normal intervals 12. Prior EKG shows atrial fibrillation with rapid ventricular rate. 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 Ventricular arrhythmia Nuclear Stress Test 2. 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 residential current use of 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 6. High [...] my direction and personally dictated by me. Ihave reviewed the chart and agree that the record accurately reflects my personal performance of the history, physical exam, discussion and plan. documented in this [facility] Work Phone: 1(492) 811-100808-22-2024 Instructions* Patient Instructions* Fay Edge CMA - 01/13/2024 2:30 PM [...] time of your visit. documented in this [facility] Work Phone: 1(123) 803-126602-20-2024 History of Present illness Narrative* Epifanio Davis MD - 07/13/2023 8:50 AM EST Subjective Epifanio Walsh is a 83 y.o. [...] He believes he can tell he has atrialfibrillation when it occurs. He is protected, though, [...] by mouth once daily., Disp: , Rfl: bmialp-ksfvfltl-vpkdxku (Creon) 24,000-76,000 -120,000 unit capsule, Take 1 [...] the direction and in the presence of Benjie Davis MD. Provider Attestation - Scribe documentation All medical record entries made by the Scribe were at my direction and personally dictated by me. Kamala reviewed the chart and agree that the record accurately reflects my personal performance of the history, physical exam, discussion and plan. [facility] Work Phone: 1(921) 294-304902-20-2024 Instructions* Patient Instructions* Dominick Suazo MA - 07/13/2023 8:50 AM [...] time of your visit. [facility] Work Phone: 1(576) 398-830006-27-2023 Evaluation note* Encounter Date Diagnosis Assessment Notes Treatment Notes Treatment Clinical Notes Oct, Change in bowel habits (ICD-10 - R19.4) Oct, Diverticulosis (ICD-10 - K57.90) Oct, IBS (irritable bowel syndrome) (ICD-10 - K58.9) Oct, Pancreatic insufficiency (ICD-10 - K86.89) orderTalk Other 02-21-2023 History of Present illness Narrative* [...] necessary and we suggest follow-up next year -[facility] [address] DO Work Phone: Evaluation noteNo assessment information available [facility] Work Phone: Evaluation noteNo InformationNortGeisinger [facility] e[employer] Other Evaluation note* Diagnosis Benign essential hypertension- Primary Essential hypertension, benign Mixed hyperlipidemia Paroxysmal atrial fibrillation (CMS/HCC) Atrial fibrillation Former smoker Personal history of tobacco use, presenting hazards to health documented in this encounter [facility] Work Phone: Evaluation note* Diagnosis Encounter [...] without long-term current use of insulin (Multi) 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 Former smoker Personal history of tobacco use, presenting hazards to health Body mass index (BMI) of 23.0 to 23.9 in adult documented in this encounter [facility] Work Phone: Evaluation note* Diagnosis Ventricular arrhythmia- Primary Unspecified cardiac dysrhythmia PVC (premature ventricular contraction) Other premature beats Paroxysmal atrial fibrillation (Multi) Atrial fibrillation 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 residential current use of 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 High risk medication use Mixed hyperlipidemia Uncontrolled hypertension Former smoker Personal history of tobacco use, presenting hazards to health Type 2 diabetes mellitus without complication, without long-term current use of insulin (Multi) Stage 3a chronic kidney disease (Multi) Prostate cancer (Multi) Malignant neoplasm of prostate Abnormal electrocardiogram (ECG) (EKG) documented in this encounter [facility] Work Phone: Evaluation note* Diagnosis PVC (premature ventricular contraction) Other premature beats 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 Ventricular arrhythmia Unspecified cardiac dysrhythmia Abnormal electrocardiogram (ECG) (EKG) documented in this encounter [facility] Work Phone: Evaluation note* Diagnosis PVC (premature ventricular contraction) Other premature beats Paroxysmal atrial fibrillation (Multi) Atrial fibrillation documented in this encounter [facility] Work Phone: Evaluation note* Diagnosis Primary hypertension (CMS/HCC)- Primary Unspecified essential hypertension PAF (paroxysmal atrial fibrillation) (CMS/HCC) Atrial fibrillation Stage 3a chronic kidney disease (HCC) (CMS/HCC) Type 2 diabetes mellitus with other specified complication, without long-term current use of insulin ([facility]/HCC) documented in this encounter [facility] HealthcareEvaluation note* Diagnosis Allergic sinusitis- Primary Type 2 diabetes mellitus with other specified complication, without long-term current use of insulin (CMS/HCC) Primary hypertension (CMS/HCC) Unspecified essential hypertension PAF (paroxysmal atrial fibrillation) ([facility]/HCC) Atrial fibrillation Exocrine pancreatic insufficiency (CMS/HCC) Other specified disease of pancreas Stage 3a chronic kidney disease (HCC) (CMS/HCC) Mixed hyperlipidemia ([facility]/HCC) Mixed hyperlipidemia Chest pain, unspecified type documented in this encounter [facility] HealthcareEvaluation note* Diagnosis Basal cell carcinoma (BCC) of skin of left upper extremity including shoulder- Primary Skin neoplasm Neoplasm of unspecified nature of bone, soft tissue, and skin documented in this encounter [facility] HealthcareEvaluation note* Diagnosis Neoplasm of unspecified behavior of bone, soft tissue, and skin- Primary Encounter for removal of sutures documented in this encounter [facility] HealthcareEvaluation note* Diagnosis 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, including hip- Primary documented in this encounter [facility] HealthcareEvaluation note* Diagnosis Squamous cell carcinoma of skin of left upper limb, including shoulder- Primary documented in this encounter [facility] HealthcareEvaluation note* Diagnosis Encounter for removal of sutures documented in this encounter [facility] HealthcareEvaluation note* Diagnosis Paroxysmal atrial fibrillation (Multi) Atrial fibrillation [...] hazards to health documented in this encounter [facility] Work Phone: History general Narrative - Reported* Type Description Date [...] Procedure:Knee replacement Surgical History Procedure:35 Radiati on Treatments,-7;Disease:Reoccurance Prostrate Cancer 2008 Surgical History Procedure:colonoscopy 2010 Surgical History Colonoscopy per Dr. Yu. 11-28-15 Surgical History Left Cataract surgery 10-01-17 Surgical History Right cataract surgery per Dr.Z santamaria in [place], [place]. 10-28-17 Surgical History Mohs repair / left upper lip Hospitalization History see above orderTalk Other History of Present illness NarrativeReturns in [...] we suggest continued therapy as before without change.-[facility]-Erick Mcdonald DO Work Phone: Hospital Discharge instructions Additional Instructions DISCHARGE INSTRUCTIONS FOR PLASTIC/RECONSTRUCTIVE SURGERY YOUR ACTIVITY MAY INCLUDE -Going up and down stairs slowly. -Walking around the house or outside if the weather is satisfactory. -No driving until you are seen in our office and cleared for driving. -No lifting more than 10 pounds for 2 weeks from the date of surgery. WOUND CARE -NO smoking as it may compromise your wound healing. -Change thigh dressing daily and as needed. -Leave lower leg dressing intact. -Keep boot in place. - - - -It is common to feel pulling or sharp sticking sensations in the area of the incision. PLEASE NOTIFY OUR OFFICE at [phone] if you: -Develop a fever of 101 degrees Fahrenheit, or higher. -Have increasing pain. -See redness or swelling around the incision. MEDICATION -Medications per Medication Reconciliation List. -Over the counter medications such as Acetaminophen and others may be used as directed for pain unless prescription was provided. Do NOT exceed 4 grams of Acetaminophen in a 24 hour period. -DO NOT use ibuprofen or NSAIDs unless directed by physician, as they may increase risk of bleeding. OTHER INSTRUCTIONS -No smoking as this increases post-operative complication rate. FOLLOW UP -Call the office at [phone] for a follow up appointment 1 week. * AFTER HOURS PHONE NUMBER [phone] *[facility] Work Phone: Advance Directives No Advanced Directives Records Found Advance Directive Response Recorded Date/ Time Advance Directives No June 15, 2020 11:06am Advance Directive Response Recorded Date/ Time Advance Directives No June 15, 2020 12:06pm Chief Complaint and Reason for Visit Chief Complaint VACCINE INS Chief Complaint Lip Wound Chief Complaint K86.89 Chief Complaint c61 Chief Complaint Admit Date squamous cell carcinoma right lower leg August 09, 2024 9:43am Assessments No Assessments Information Available Chief Complaint [...] disease Unknown father Unknown Not Specified Unknown Relationship Condition Age at Onset Recorded Date/T deidre father Coronary artery disease Unknown Unknown mother Unknown Summary Purpose Reason for Referral Specialty Diagnoses / Procedures Referred By Katie t Referred To Contact Radiology Diagnoses PVC (premature ventricular contraction) 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 Ventricular arrhythmia Abnormal electrocardiogram (ECG) (EKG) Procedures Nuclear Stress Test Nuclear Stress Test CHG MYOCARDIAL SPECT MULTIPLE STUDIES Missy Khoury MD [address] [place] [id number] Referral ID Status Reason Start Date Expiration Date Visits Requested Visits Authorized [id number] Authorized Perform Procedure 01/13/2024 01/12/2025 5 5 Specialty Diagnoses / Procedures Referred By Contac t Referred To Contact Cardiology Diagnoses PVC (premature ventricular contraction) Paroxysmal atrial fibrillation (Multi) Procedures 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 Missy Khoury MD [address] [place] [id number] Referral ID Status Reason Start Date Expiration Date V isits Requested Visits Authorized [id number] Pending Review 01/13/2024 01/12/2025 1 1 Specialty Diagnoses / Procedures Referred By Contac t Referred To Contact Cardiology Diagnoses PVC (premature ventricular contraction) Paroxysmal atrial fibrillation (Multi) Procedures Transthoracic Echo Complete NM ECHO TTHRC R-T 2D W/WOM-MODE COMPL SPEC&COLR D Missy Khoury MD [address] [place] [address] Referral ID Status Reason Start Date Expiration Date Visits Requested Visits Authorized [id number] Authorized Perform Procedure 01/13/2024 01/12/2025 1 1 Specialty Diagnoses / Procedures Referred By Contac t Referred To Contact Cardiology Diagnoses Paroxysmal atrial fibrillation (Multi) Procedures Follow Up In Cardiology Missy Khoury MD [address] [place] [address] Missy Khoury MD [address] [place] [address] Referral ID Status Reason Start Date Expiration Date V isits Requested Visits Authorized [id number] Authorized 01/13/2024 01/12/2025 1 1 Specialty Diagnoses / Procedures Referred By Contac t Referred To Contact Diagnoses Paroxysmal atrial fibrillation (CMS/HCC) Procedures ECG 12 Lead Epifanio Davis MD [address] [place] [address] 2, [address] [place] [address] Referral ID Status Reason Start Date Expiration Date V isits Requested Visits Authorized [id number] Authorized 07/13/2023 07/12/2024 1 1 Specialty Diagnoses / Procedures Referred By Contac t Referred To Contact Cardiology Diagnoses Paroxysmal atrial fibrillation (CMS/HCC) Procedures Follow Up In Cardiology Epifanio Davis MD [address] [place] [address] 2, [address] [place] [address] Epifanio Davis MD [address] [place] [address] 2, [address] [address] Referral ID Status Reason Start Date Expiration Date V isits Requested Visits Authorized [id number] Authorized 07/13/2023 07/12/2024 1 1 Additional Source Comments Care Teams (unrecognized sec tion and content) Team Status: Inactive Member Role Status Dates Nirav Bello DO Primary Care Provider Active Shonna Sim , DO Family Provider Active Juan Ventura , Attending Provider Active Team Status: Active Member Role Status Dates Shonna Sim DO Family Provider Active Nirav Bello DO Primary Care Provider Active Team Status: Inactive Member Role Status Dates Nirav Bello DO Primary Care Provider Active Shonna Sim , DO Family Provider Active Jj Garcia MD Attending Provider Active Filteration Operator Relationship Specialty Start Date End Date Nirav Bello DO [address] [place] [address] PCP - General 05/24/99 Team Status: Inactive Member Role Status Dates Nirav Bello DO Primary Care Provider Active Start: September 13, 2023 End: September 13, 2023 NON STAFF Attending Provider Active Start: [facility] 2023 End: September 13, 2023 Filteration Operator Relationship Specialty Start Date End Date Nirav Bello DO [address] [place] [address] PCP - [employer] 05/24/20 Nirav Bello DO [address] [place] [address] PCP - General Internal Medicine 11/10/22 Marianne Davis MD [address] [place] [address] Referring Physician Cardiology 05/12/23 Filteration Operator Relationship Specialty Start Date End Date Nirav Bello DO [address] [place] [address] PCP - [employer] 05/24/20 Nirav Bello DO [address] [place] [address] PCP - General Internal Medicine 11/10/22 Marianne Davis MD [address] [place] [address] Referring Physician Cardiology 05/12/23 Filteration Operator Relationship Specialty Start Date End Date Nirav Bello DO [address] [place] [address] PCP - General 05/24/99 Filteration Operator Relationship Specialty Start Date End Date Nirav Bello DO [address] [place] [address] PCP - General 05/24/99 Filteration Operator Relationship Specialty Start Date End Date Nirav Bello DO [address] [place] [address] PCP - General 05/24/99 Filteration Operator Relationship Specialty Start Date End Date Nirav Bello DO [address] [place] [address] PCP - General 05/24/99 Filteration Operator Relationship Specialty Start Date End Date Nirav Bello DO [address] [place] [address] PCP - General 05/24/99 Filteration Operator Relationship Specialty Start Date End Date Nirav Bello DO [address] [place] [address] PCP - General 05/24/99 Filteration Operator Relationship Specialty Start Date End Date Nirav Bello DO [address] [place] [address] PCP - General 05/24/99 Filteration Operator Relationship Specialty Start Date End Date Nirav Bello DO [address] [place] [address] PCP - [employer]et[employer] 05/24/20 Nirav Bello DO [address] [place] [address] PCP - General Internal Medicine 11/10/22 Marianne Davis MD [address] [address] [place] [address] Referring Physician Cardiology 05/12/23 Filteration Operator Relationship Specialty Start Date End Date Nirav Bello DO [address] [place] [address] PCP - [employer] 05/24/20 Nirav Bello DO [address] [place] [address] PCP - General Internal Medicine 11/10/22 Marianne Davis MD [address] [address] Referring Physician Cardiology 05/12/23 Filteration Operator Relationship Specialty Start Date End Date Nirav Bello DO [address] [place] [address] PCP - [employer] 05/24/20 Nirav Bello DO [address] [place] [address] PCP - General Internal Medicine 11/10/22 Marianne Davis MD [address] [place] [address] Referring Physician Cardiology 05/12/23 Filteration Operator Relationship Specialty Start Date End Date Nirav Bello DO [address] [place] [address] PCP - [employer] 05/24/20 Nirav Bello DO [address] [place] [address] PCP - General Internal Medicine 11/10/22 Marianne Davis MD [address] [address] Referring Physician Cardiology 05/12/23 Filteration Operator Relationship Specialty Start Date End Date Nirav Bello DO [address] [place] [address] PCP - [employer] 05/24/20 Nirav Bello DO [address] [place] [address] PCP - General Internal Medicine 11/10/22 Marianne Davis MD [address] [place] [address] Referring Physician Cardiology 05/12/23 Filteration Operator Relationship Specialty Start Date End Date Nirav Bello DO [address] [place] [address] PCP - [employer] 05/24/20 Nirav Bello DO [address] [place] [address] PCP - General Internal Medicine 11/10/22 Marianne Davis MD [address] [address] Referring Physician Cardiology 05/12/23 Team Status: Inactive Member Role Status Dates Niarv Bello DO Primary Care Provider Active Start: August 09, 2024 End: August 09, 2024 Colin Thompson MD Attending Provider Active Start: August 09, 2024 End: August 09, 2024 Filteration Operator Relationship Specialty Start Date End Date Nirav Bello DO [address] [place] [address] PCP - [employer] 05/24/20 Nirav Bello DO [address] [place] [address] PCP - General Internal Medicine 11/10/22 Marianne Davis MD [address] [address] Referring Physician Cardiology 05/12/23 Filteration Operator Relationship Specialty Start Date End Date Nirav Bello DO [address] [facility] [address] [place] [address] PCP - [employer]et[employer] 05/24/20 Nirav Bello DO [address] [facility] [address] [place] [address] PCP - General Internal Medicine 11/10/22 Marianne Davis MD [address] [place] [address] Referring Physician Cardiology 05/12/23 Filteration Operator Relationship Specialty Start Date End Date Nirav Bello DO [address] [place] [address] PCP - [employer] 05/24/20 Nirav Bello DO [address] [place] [address] PCP - General Internal Medicine 11/10/22 Marianne Davis MD [address] [place] [address] Referring Physician Cardiology 05/12/23 Filteration Operator Relationship Specialty Start Date End Date Ace Niravata Vargas DO [address] [place] [address] PCP - General 05/24/99 Goals (unrecognized section and content) Goals may [...] content) DATE CREATED AUTHOR 07/15/2022 [facility] DATE CREATED AUTHOR AUTHOR'S ORGANIZ ATION 07/15/2022 [employer] DATE CREATED AUTHOR AUTHOR'S ORGANIZ ATION 09/10/2022 [facility] DATE CREATED AUTHOR AUTHOR'S ORGANIZ ATION 02/25/2024 [facility] DATE CREATED AUTHOR AUTHOR'S ORGANIZ ATION 08/21/2024 [facility] DATE CREATED AUTHOR AUTHOR'S ORGANIZ ATION 09/14/2024 [facility] EPIC DATE CREATED AUTHOR AUTHOR'S ORGANIZ ATION 10/03/2024 [facility] REASON FOR VISIT (unrecogniz ed section and content) Reason Comments Follow-up 5 month Follow up fo r Hypertension Specialty Diagnoses / Procedures Referred By Contac t Referred To Contact Cardiology Diagnoses Paroxysmal atrial fibrillation (Multi) Procedures Follow Up In Cardiology Missy Khoury MD [address] [facility] [address] [place] [address] Phone: tel: fax: Missy Khoury MD [address] [facility] [address] [place] [address] Phone: tel: fax: Referral ID Status Reason Start Date Expiration Date V isits Requested Visits Authorized [id number] Authorized 05/01/2024 05/01/2025 1 1 Reason Comments Annual Exam Specialty Diagnoses / Procedures Referred By Contac t Referred To Contact Diagnoses Paroxysmal atrial fibrillation (CMS/HCC) Procedures ECG 12 Lead Epifanio Davis MD 703 [facility] 2, [address] [address] Referral ID Status Reason Start Date Expiration Date V isits Requested Visits Authorized [id number] Authorized 07/13/2023 07/12/2024 1 1 Reason Comments Follow-up Follow up after test ing Referral ID Status Reason Start Date Expiration Date V isits Requested Visits Authorized [id number] Authorized 01/13/2024 01/12/2025 1 1 Reason Comments Follow-up Add on Specialty Diagnoses / Procedures Referred By Contac t Referred To Contact Radiology Diagnoses PVC (premature ventricular contraction) 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 Ventricular arrhythmia Abnormal electrocardiogram (ECG) (EKG) Procedures Nuclear Stress Test Nuclear Stress Test CHG MYOCARDIAL SPECT MULTIPLE STUDIES Missy Khoury MD [address] [place] [address] Referral ID Status Reason Start Date Expiration Date Visits Requested Visits Authorized [id number] Authorized Perform Procedure 01/13/2024 01/12/2025 5 5 Specialty Diagnoses / Procedures Referred By Contac t Referred To Contact Cardiology Diagnoses PVC (premature ventricular contraction) Paroxysmal atrial fibrillation (Multi) Procedures Transthoracic Echo Complete NM ECHO TTHRC R-T 2D W/WOM-MODE COMPL SPEC&COLR D Missy Khoury MD [address] [place] [address] Referral ID Status Reason Start Date Expiration Date Visits Requested Visits Authorized [id number] Authorized Perform Procedure 01/13/2024 01/12/2025 1 1 Reason Comments Hospital Follow-up Patient presents to[facility] a [place] [facility] follow up 01/10/24 for hypertension. He was in the ER the previous week for a-fib. He was started on Abiraterone recently and his BP went up consistently in the 160s. He sees cardiology Thurs for the a-fib. Reason Comments Hospital Follow-up Pt presents hospital follow up at [facility] on 05/03 for hypertension. Pt states he BP still feels elevated, although he hasn't been checking he BP at home. Pt denies chest pain, SOB or blurry vision Reason Comments Excision Reason Comments Follow-up Reason Comments Hypertension Patient's BP reading s 190/90 in the evenings. Patient was seen at [place] [facility] 08/01/24 for hypertension and Norvasc 5mg one tab every AM was started. Had follow up ER visit with [facility] 08/04/24 Reason Comments Suture / Staple Removal FOR RECORDS PERTAINING TO PATIENTS WHO ARE [...] BE BASED ON THE PRIMARY CLINICAL RECORDS. [employer] provides no warranty or guarantee of the accuracy or completeness of information in this document.
--- NOTE | 2024-10-04 21:17 | ECG_ITS ---
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 Measurements Intervals [place] Rate: 94 P: -[address] IN: -[address] QRS: 13 QRSD: 76 T: 20 QT: 324 QTc: 375 Interpretive Statements 31029 Atrial fibrillation with aberrant conduction, or ventricular premature complexes 50513 Nonspecific Twave abnormality, probably digitalis effect 9140 abnormal rhythm ECG Compared to ECG 08/01/2024 21:06:47 Ventricular premature complex(es) now present Aberrant conduction of supraventricular beat(s) now present Sinus rhythm no longer present Electronically Signed On 10-04-2024 23:20:13 EDT by MARLENY HOUSTON M.D.
--- NOTE | 2024-10-04 21:24 | ED.GENADUL1 ---
HPI HPI - General Adult General Chief complaint: Recheck/Abnormal Lab/Rx Stated complaint: HIGH SYSTOLIC HIGH PULSE Time Seen by Provider: 10/04/24 21:20 Source: patient Mode of arrival: walk-in Limitations: no limitations History of Present Illness HPI narrative: states he was seen here one year ago for a. fib. Describes conversion back to normal rhythm. Was seen by cardiology and placed on Xarelto which he remains on. States they have been working to improve his BP control and he monitors his BP. Tonight when he checked his BP he noticed his heart rate was in the 100s. No chest pain, dyspnea or light headiness. Now presents to be seen Related Data Home Medications ?Medication ?Instructions ?Recorded ?Confirmed rivaroxaban 20 mg tablet (Xarelto) 20 mg PO DAILY 09/29/23 08/01/24 atorvastatin 20 mg tablet 20 mg PO .once nightly 01/10/24 08/01/24 lisinopril 20 mg tablet 20 mg PO BID 01/10/24 08/01/24 metformin 500 mg tablet 500 mg PO .once nightly 01/10/24 08/01/24 metoprolol succinate 50 mg 50 mg PO Q12H 01/10/24 08/01/24 tablet,extended release 24 hr mirtazapine 15 mg tablet 15 mg PO .qhs 01/10/24 08/01/24 nlebwl-bsowcyeu-byrqhvl 1 cap PO TIDWMEAL 05/03/24 08/01/24 24,000-76,000-120,000 unit capsule,delayed rel (Creon) clonidine HCl 0.1 mg tablet 0.1 mg PO Q12H PRN hypertensive 08/01/24 08/01/24 emergency Previous Rx's ?Medication ?Instructions ?Recorded amlodipine 5 mg tablet (Norvasc) 5 mg PO DAILY #7 tabs 08/01/24 Allergies Allergy/AdvReac Type Severity Reaction Status Date / Time Sulfa (Sulfonamide Allergy Severe Hives Verified 10/04/24 21:18 Antibiotics) Opioid HPI Opioid Management Most Recent Opioid Data: Last Pain Scale 1 08/01/24, 21:15 Review of Systems ROS Status of ROS 10 or more systems reviewed and unremarkable except as noted in history and below [facility] Medical History Exocrine pancreatic insufficiency ?K86.81 - Exocrine pancreatic insufficiency (ICD-10) Social History Little interest or pleasure in doing things: not at all Feeling down, depressed, or hopeless: not at all Exam Constitutional Vital Signs, click to edit/add: Last Vital Signs Temp 97.9 F 10/04/24 21:06 Pulse 62 10/04/24 22:40 Resp 17 10/04/24 22:40 BP 122/77 10/04/24 22:31 Pulse Ox 97 10/04/24 21:25 O2 Del Method Room Air 10/04/24 21:25 Common normals: no apparent distress, average body habitus, oriented x3, no limitations, healthy appearing, alert and well nourished HENMT Common normals: normocephalic and head/scalp atraumatic Eye Common normals: EOMs intact bilaterally Respiratory Common normals: normal respiratory effort, no retractions, no use of accessory muscles and clear to auscultation bilaterally Cardio Common normals: S1 normal heart sound and S2 normal heart sound Rhythm: abnormal rhythm GI Common normals: Normal to inspection, nondistended, normoactive bowel sounds present, soft to palpation and non-tender Extremity Common normals: normal to inspection and full ROM Neuro Common normals: oriented x3, CN's II-XII intact bilaterally, moves all extremities and no focal motor deficits Psych Appearance: grossly normal Course Vital Signs Vital signs: Vital Signs Temperature 97.9 F 10/04/24 21:06 Pulse Rate 98 H 10/04/24 21:06 Respiratory Rate 18 10/04/24 21:06 Blood Pressure 148/98 H 10/04/24 21:06 Pulse Oximetry 96 10/04/24 21:06 Oxygen Delivery Method Room Air 10/04/24 21:06 Temperature 97.9 F 10/04/24 21:06 Pulse Rate 62 10/04/24 22:40 Respiratory Rate 17 10/04/24 22:40 Blood Pressure 122/77 10/04/24 22:31 Pulse Oximetry 97 10/04/24 21:25 Oxygen Delivery Method Room Air 10/04/24 21:25 Medical Decision Making MDM Narrative Medical decision making narrative: patient past history of A. fib one year ago. Has been on Xarelto ever since and is normally in sinus rhythm . Tonight BP and heart rate elevated and patient presented in A. Fib. No other symptoms. Given extra dose of metoprolol in the ER and he converted back to NSR. 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 Lab Data Labs: Lab Results 10/04/24 10/04/24 Range/Units 21:25 23:00 WBC 8.2 (4.0-11.0) 10^3/uL RBC 4.07 L (4.70-6.10) 10^6/uL Hgb 12.5 L (14.0-18.0) g/dL Hct 37.5 L (42.0-54.0) % MCV 92.1 (80.0-94.0) fL MCH 30.7 (25.9-34.0) pg MCHC 33.3 (29.9-35.2) g/dL RDW 13.6 (11.0-15.0) % Plt Count 169 (150-450) 10^3/uL MPV 10.1 (9.5-13.5) fL Neut % (Auto) 62.2 (43.0-75.0) % Lymph % (Auto) 25.9 (20.5-60.0) % Bollinger % (Auto) 6.8 (1.7-12.0) % Eos % (Auto) 3.7 (0.9-7.0) % Baso % (Auto) 1.0 (0.2-2.0) % Neut # (Auto) 5.1 (1.4-6.5) 10^3/uL Lymph # (Auto) 2.1 (1.2-3.8) 10^3/uL Bollinger # (Auto) 0.6 (0.3-0.8) 10^3/uL Eos # (Auto) 0.3 (0.0-0.7) 10^3/uL Baso # (Auto) 0.1 (0.0-0.1) 10^3/uL Abs Immat Gran (auto) 0.03 (0.00-0.03) 10^3/uL Imm/Tot Granulo (auto) 0.4 (0.0-0.5) % D-Dimer 0.23 (<=0.59) mg/L FEU Sodium 141 (136-145) mmol/L Potassium 4.0 (3.5-5.1) mmol/L Chloride 106 (98-107) mmol/L Carbon Dioxide 29.9 (21.0-32.0) mmol/L Anion Gap 9.1 BUN 20.0 H (7.0-18.0) mg/dL Creatinine 1.34 H (0.70-1.30) mg/dL Est GFR ( Amer) >60 (>=60 mL/min/1.73m^2) Est GFR (Non-Af Amer) 51 L (>=60 mL/min/1.73m^2) BUN/Creatinine Ratio 14.9 Glucose 147 H (74-106) mg/dL Calcium 9.2 (8.5-10.1) mg/dL Troponin I High Sens 23.7 22.3 (4.0-76.1) pg/mL Discharge Plan Discharge Chief Complaint: Recheck/Abnormal Lab/Rx Clinical Impression: Atrial fibrillation Patient Disposition: Home, Self-Care Prescriptions / Home Meds: No Action Xarelto 20 mg tablet 20 mg PO DAILY metformin 500 mg tablet 500 mg PO .once nightly atorvastatin 20 mg tablet 20 mg PO .once nightly metoprolol succinate 50 mg tablet extended release 24 hr 50 mg PO Q12H lisinopril 20 mg tablet 20 mg PO BID mirtazapine 15 mg tablet 15 mg PO .qhs Creon 24,000-76,000 -120,000 unit capsule,delayed release(DR/EC) 1 cap PO TIDWMEAL clonidine HCl 0.1 mg tablet 0.1 mg PO Q12H PRN (Reason: hypertensive emergency) amlodipine [Norvasc] 5 mg tablet 5 mg PO DAILY Qty: 7 0RF Print Language: Kazakh Instructions: A-fib (Atrial Fibrillation) (ED) Additional Instructions: follow up with your dental equipment repairer Referrals: GABRIEL BELLO [Primary Care Provider, Family Practice] - 1 week
[2024-10-04] MEDS: METOPROLOL TARTRATE 50 MG TABLET PO (21:49)
[2024-10-04 21:51] LABS: Basophils Absolute Auto 0.1 10^3/uL (0.0-0.1); Eosinophils Absolute Auto 0.3 10^3/uL (0.0-0.7); Eosinophils Percent Auto 3.7 % (0.9-7.0); Hematocrit 37.5 % (42.0-54.0); Hemoglobin 12.5 g/dL (14.0-18.0); Immature Granulocytes Abs Auto 0.03 10^3/uL (0.00-0.03); Immature Granulocytes Pct Auto 0.4 % (0.0-0.5); Lymphocytes Absolute Auto 2.1 10^3/uL (1.2-3.8); Lymphocytes Percent Auto 25.9 % (20.5-60.0); Mean Corpuscular HGB Conc 33.3 g/dL (29.9-35.2); Mean Corpuscular Hemoglobin 30.7 pg (25.9-34.0); Mean Corpuscular Volume 92.1 fL (80.0-94.0); Mean Platelet Volume 10.1 fL (9.5-13.5); Monocytes Absolute Auto 0.6 10^3/uL (0.3-0.8); Monocytes Percent Auto 6.8 % (1.7-12.0); Neutrophils Absolute Auto 5.1 10^3/uL (1.4-6.5); Neutrophils Percent Auto 62.2 % (43.0-75.0); Platelet Count 169 10^3/uL (150-450); Red Blood Count 4.07 10^6/uL (4.70-6.10); Red Cell Distribution Width 13.6 % (11.0-15.0); White Blood Count 8.2 10^3/uL (4.0-11.0)
--- NOTE | 2024-10-04 21:53 | ECG_ITS ---
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 Measurements Intervals [place] Rate: 72 P: 60 WI: 184 QRS: -3 QRSD: 82 T: 19 QT: 388 QTc: 412 Interpretive Statements Sinus rhythm with occasional ventricular premature complexes Otherwise normal ECG Compared to ECG 10/04/2024 21:17:53 Atrial fibrillation no longer present Electronically Signed On 10-04-2024 23:22:33 EDT by MARLENY HOUSTON M.D.
[2024-10-04 22:05] LABS: D Dimer 0.23 mg/L FEU (<=0.59)
[2024-10-04 22:08] LABS: Anion Gap 9.1; BUN Creatinine Ratio 14.9; Calcium 9.2 mg/dL (8.5-10.1); Carbon Dioxide 29.9 mmol/L (21.0-32.0); Chloride 106 mmol/L (98-107); Estimated GFR (African America >60 (>=60 mL/min/1.73m^2); Estimated GFR (Non-African Ame 51 (>=60 mL/min/1.73m^2); Glucose 147 mg/dL (74-106); Sodium 141 mmol/L (136-145); Troponin I High Sensitivity 23.7 pg/mL (4.0-76.1)
[2024-10-04 23:29] LABS: Troponin I High Sensitivity 22.3 pg/mL (4.0-76.1)
== END 2024-10-04 23:50 | disposition home or self-care (01) ==
PROVIDERS: Emergency Provider Internal Medicine; PCP Internal Medicine
DX: I48.91 Unspecified atrial fibrillation (principal); Z79.01 Long term (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 of anticoagulants
CPT/HCPCS: 36415; 80048; 84484; 85025; 85378; 93005; 99284

== ENCOUNTER 2024-10-13 07:12 | Outpatient (OUT) | payer MEDICARE, SELFPAY ==
--- OUTSIDE RECORDS SUMMARY | 2011-03-03 20:00 | XMS_ITS | Continuity of Care Document ---
Author Organization [facility] Address [address] [place] [address] Phone Care Team Providers Care Digital Marketing Analyst Name Role Phone Hilario Bolanos Unavailable Unavailable Procedures Procedure Date Admin influenza virus vac FLU VACC PRSV FREE INC ANTIG Admin influenza virus vac Advance Directives Directive Yes / No Effective Date File Name No Information Encounters Encounter Description Practice Location Reason(s) For Visit Diagnoses Date Provider Providers Copied on Encounter [facility], [address] [place] [address], [id number], tel:[phone] [facility] No Information Aramis WALKER Hilario. [address] [place] [address], [id number], [place]. tel:[phone] [facility], [address] [place] [address], [id number], tel:[phone] Flu No Information Aramis WALKER Hilario. [address] [place] [address], [id number], . tel:[phone] Family History Family Member Type Diagnosis Age At Onset No Information Payers Payer name Insurance type Covered constitution party ID Authoriza tion(s) Aetna Medicare PPS MB [id number] Social History Type Description Quantity Date Captured [...]
--- OUTSIDE RECORDS SUMMARY | 2024-10-02 11:33 | XMS_ITS ---
Author Name Auto Generated Organization OHIP Support Name Relationship Address Phone NONE Next of Kin Unknown Unavailable REILLY, MESERET Next of Kin Unknown [phone] REILLY, MESERET Next of Kin Unknown [phone] REILLY, MESERET Next of Kin Unknown [phone] REILLY, MESERET Next of Kin Unknown [phone] Reilly, Meseret Next of Kin Unknown [phone] REILLY, MESERET Next of Kin Unknown [phone] REILLY, MESERET Next of Kin Unknown [phone] REILLY, MESERET Next of Kin Unknown [phone] REILLY, MESERET Next of Kin Unknown [phone] REILLY, MESERET Next of Kin Unknown [phone] NONE Next of Kin Unknown Unavailable REILLY, MESERET Next of Kin Unknown [phone] REILLY, MESERET Next of Kin Unknown [phone] NONE Next of Kin Unknown Unavailable REILLY, MESERET Next of Kin Unknown [phone] NONE Next of Kin Unknown Unavailable REILLY, MESERET Next of Kin Unknown [phone] NONE Next of Kin Unknown Unavailable REILLY, MESERET Next of Kin Unknown [phone] NONE Next of Kin Unknown Unavailable REILLY, MESERET Next of Kin Unknown [phone] NONE Next of Kin Unknown Unavailable REILLY, MESERET Next of Kin Unknown [phone] NONE Next of Kin Unknown Unavailable REILLY, MESERET Next of Kin Unknown [phone] NONE Next of Kin Unknown Unavailable REILLY, MESERET Next of Kin Unknown [phone] NONE Next of Kin Unknown Unavailable REILLY, MESERET Next of Kin Unknown [phone] REILLY, MESERET Next of Kin Unknown [phone] REILLY, MESERET Next of Kin Unknown [phone] REILLY, MESERET Next of Kin Unknown [phone] Care Team Providers Care Arnp Name Role Phone PETITTI, LAURA A Attending Unavailable PETITTI, LAURA A Attending Unavailable PETITTI, LAURA A Attending Unavailable PETITTI, LAURA A Attending Unavailable FREDY DALEY Attending Unavailable PETITTI, LAURA A Attending Unavailable ACE, GABRIEL A Attending Unavailable ACE, GABRIEL A Referring Unavailable AAMIR NANCE Attending Unavailable ACE, GABRIEL A Attending Unavailable ACE, GABRIEL A Attending Unavailable ACE, GABRIEL A Referring Unavailable PETITTI, LAURA A Attending Unavailable ACE, GABRIEL A Attending Unavailable ACE, GABRIEL A Referring Unavailable KHOURY, ASHLEY Referring Unavailable ACE, GABRIEL A Primary Care Unavailable KHOURY, ASHLEY Referring Unavailable ACE, GABRIEL A Primary Care Unavailable KHOURY, ASHLEY Referring Unavailable ACE, GABRIEL A Primary Care Unavailable KHOURY, ASHLEY Referring Unavailable ACE, GABRIEL A Primary Care Unavailable KHOURY, ASHLEY Referring Unavailable ACE, GABRIEL A Primary Care Unavailable KHOURY, ASHLEY Referring Unavailable ACE, GABRIEL A Primary Care Unavailable Colin Thompson Attending Unavailable Colin Thompson Admitting Unavailable Ace, Gabriel Primary Care Unavailable KHOURY, ASHLEY Attending Unavailable ACE, GABRIEL A Primary Care Unavailable KHOURY, ASHLEY Referring Unavailable ACE, GABRIEL A Primary Care Unavailable KHOURY, ASHLEY Attending Unavailable KHOURY, ASHLEY Referring Unavailable ACE, GABRIEL A Primary Care Unavailable KHOURY, ASHLEY Attending Unavailable KHOURY, ASHLEY Referring Unavailable ACE, GABRIEL A Primary Care Unavailable PROBLEMS DATE TYPE CONDITION / CODE ATTENDING STATUS [facility] 10/02/2024 Admitting Diagnosis 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 05/01/2024 Admitting Diagnosis Hypertensive chronic kidney disease with stage 1 through stage 4 chronic kidney disease, or unspecified chronic kidney disease / I12.9(ICD-10) [facility] 05/01/2024 Admitting Diagnosis Nonrheumatic mitral (valve) insufficiency / I34.0(ICD-10) [facility] 05/28/2023 Admitting Diagnosis Type 2 diabetes mellitus without complications / E11.9(ICD-10) [facility] 08/09/2024 Unknown Squamous cell ca rcinoma of skin of right lower limb, including hip / C44.722(ICD-10) [facility] Ad[facility] Diagnosis Person consulting for explanation of examination or test findings / Z71.2(ICD-10) [facility] 05/01/2024 Admitting Diagnosis Body mass index (BMI) 23.0-23.9, adult / Z68.23(ICD-10) [facility] 05/28/2023 Admitting Diagnosis Paroxysmal atrial fibrillation (Multi) / I48.0(ICD-10) [facility] 01/13/2024 Admitting Diagnosis Ventricular premature depolarization / I49.3(ICD-10) [facility] 02/07/2024 Admitting Diagnosis Cardiac arrhythmia, unspecified / I49.9(ICD-10) [facility] 02/07/2024 Admitting Diagnosis Abnormal electrocardiogram (ECG) (EKG) / R94.31(ICD-10) [facility] 01/13/2024 Admitting Diagnosis Malignant neoplasm of prostate (Multi) / C61(ICD-10) [facility] 01/13/2024 Admitting Diagnosis Chronic kidney disease, stage 3a (Multi) / N18.31(ICD-10) 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 / Z79.01(ICD-10) [facility] 07/13/2023 Admitting Diagnosis Personal history of nicotine dependence / Z87.891(ICD-10) [facility] 05/28/2023 Admitting Diagnosis Mixed hyperlipidemia / E78.2(ICD-10) [facility] 05/28/2023 Admitting Diagnosis Type 2 diabetes mellitus without complications (Multi) / E11.9(ICD-10) [facility] PROCEDURES No Procedure Records Found RESULTS GLUCOSE POCT GLUCOMETERS Collected: 08/09/2024 9:59 A M Status: F Source: [facility] TYPE CODE TESTS RESULT OUT OF RANGE REFERENCE UNITS LAB GLUPOC Glucose Poc Glucometers 216 mg/dL Result Comment: Random Gluco se Reference Range is dependent on time and content of last meal. Glucose of more than 200 mg/dL in a nonstressed, ambulatory subject supports the diagnosis of Diabetes Mellitus. LAB COMM1 Commemt1 Glu2: Cleaned Meter Result Comment: PERFORMED BY : [facility] [address] [place] [address] PATHOLOGIST FINANCIAL RESERVE CLERK JOSE DOWNEY M.D. Performed By: #### GLULS ### # Point of Care testing , L Observed: 08/09/2024 12:00 AM Status: F Source: [facility] ----- ------- Specimen: [id number] Received: 08/09/24 Status: DEONDRE Lewis Num: [id number] Spec Type: Surgical Subm Dr: Colin Thompson MD Tissues: A Skin-Other than Cyst, tag, debridement or plastic repair (R LOWER LEG) Procedures: HE/8, Gross/Micro L4 ----- ------- Age/ Patient Sex Location Account Attending Physician ----- ------- Dev Walsh 84/M [place] [id number] Colin Thompson MD ----- ------- SPEC NUM: [id number] RECD: 08/09/24 STATUS: DEONDRE LEWIS NUM: [id number] JARRET: 08/09/24- SUBM DR: Colin Thompson MD ENTERED: 08/09/24 [facility] DR: RYAN TYPE: Surgical DEPT: S ENTERED BY: [id number] RECV BY: [id number] ORDERED: HE/8, Gross/Micro L4 ORDERED: , Gross/Micro L4 Pathological Diagnosis Skin, right lower leg, reexcision: -Marked postbiopsy change including persistent superficial ulceration, and the marked surrounding atypical squamous acanthosis of the psoriasiform type, including 1 isolated keratin daylin in the superficial dermis, consistent with tiny residual squamous cell carcinoma -Patchy mild actinic effect of the further surrounding epidermis, including patchy foci of solar lentigos and mild actinic keratosis -All margins are otherwise all negative for malignancy or any high-grade atypia Clinical Information 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 The specimen is 3.7 cm along the 12?6:00 aspect, 3.3 cm along the 9?12:00 aspect, and excised to a depth of 0.7 cm. Eccentrically located on the skin is a leonardo-pink, nodular crusted raised lesion, 2.2 x 2.1 cm that is outlined by a circumferential rim of blue dye. The lesion is situated 0.5 cm from the 12:00 polar end, 0.6 cm in the 12?3?6:00 margin, 1.2 cm from the 6:00 polar end, and 0.6 cm from the 6?9?12:00 margin. ----- ------- Specimen: [id number] Received: 08/09/24 Status: ALEXABrendon Lewis Num: [id number] Spec Type: Surgical Subm Dr: Colin Thompson MD Tissues: A Skin-Other than Cyst, tag, debridement or plastic repair (R LOWER LEG) Procedures: Lizett HERNANDEZ/Saurabh L4 ----- ------- Patient: Dev Walsh [id number] (Continued) ----- ------- Specimen: [id number] Received: 08/09/24 (Continued) Gross Description (Continued) Signed (signature on file) Sohail Urbina MD 08/10/24 1527 ----- ------- Specimen: Received: 08/09/24 Status: DEONDRE Lewis Num: [id number] Spec Type: Surgical Subm Dr: Colin Thompson MD Tissues: A Skin-Other than Cyst, tag, debridement or plastic repair (R LOWER LEG) Procedures: Lizett HERNANDEZ/Saurabh Hedrick ----- ------- Patient: Dev Walsh [id number] (Continued) ----- ------- Specimen: Received: 08/09/24 (Continued) Gross Description (Continued) The specimen is inked as follows: 12?3:00-Yellow 3?6:00-Green 6?9:00-[place] 9?12:00-Blue Deep-Black Serial sections reveal yellow-leonardo, glistening and uniform cut surfaces with a deep margin situated 0.6 cm from the scar. The specimen is entirely submitted progressing from the 12:00 to the 6:00 polar end in A1?A8, respectively. See attached diagram Cassettes: A1 Serially sectioned 12:00 polar end A2 2 full-thickness cross-sections from 9?12?3:00 half of specimen A3 1 full-thickness cross-section from 9?12?3:00 half of specimen A4 1 full-thickness cross-section from central aspect of specimen A5 1 full-thickness cross-section from 3?6?9:00 half of specimen A6 2 full-thickness cross-sections from 3?6?9:00 Of specimen A7?A8 serially sectioned 6:00 polar end (8, ns, D81-1435 A) Microscopic Description Microscopic examination is performed [facility] Codes 77753 ----- ------- ----- ------- Specimen: [id number] Received: 08/09/24 Status: ALEXABrendon Lewis Num: [id number] Spec Type: Surgical Subm Dr: Colin Thompson MD Tissues: A Skin-Other than Cyst, tag, debridement or plastic repair (R LOWER LEG) Procedures: HEATHER/Angel, Gross/Micro L4 ----- ------- Patient: Dev Walsh [id number] (Continued) ----- ------- Signed (signature on file) Daniel-Irineo Urbina MD 08/10/24 1527 TRANSTHORACIC ECHO (TTE) COMPLETE Observed: 02/21/2024 8:03 AM Status: F Source: [address], [place] [address] TRANSTHORACIC ECHOCARDIOGRAM REPORT Patient Name: DEV WALSH Judy Physician: [id number] Marina Goldsmith MD Study Date: 02/21/2024 Ordering Provider: [id number] ASHLEY KHOURY MRN/PID: [id number] Fellow: Nurse: Date of /Age: 1 1940 / 83 years Blueprinter: Jyoti Gutiérrez RDCS, RVT Gender: M Additional Staff: Height: 180.34 cm Admit Date: Weight: 77.11 kg Admission Status: BSA / BMI: 1.97 m2 / 23.71 kg/m2 Department Location: [facility] Blood Pressure: 142 /84 mmHg Study Type: TRANSTHORACIC ECHO (TTE) COMPLETE Diagnosis/ICD: 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; Paroxysmal atrial fibrillation-I48.0 Indication: Diabetes, HTN, Hyperlipidemia, Murmur, Former Smoker, Prostate Cancer with Metastases, CKD-Stage III CPT Codes: Echo Complete w Full Doppler-37161 Study Detail: The following Echo studies were [...] mmHg PIEDV: 2.08 m/s PADP: 20.3 mmHg [id number] Marina Goldsmith MD Electronically signed on 02/21/2024 at 2:06:09 PM Final NUCLEAR STRESS TEST Observed: 02/07/2024 8:23 AM Status: F Source: [facility] Order Comment: Start with ex ercise, may switch to alfonso Interpreted By: Christina Sanchez and Miller Elaine STUDY: MYOCARDIAL PERFUSION STRESS TEST WITH EXERCISE Performing facility: [facility], [address] [place] [address], [address], [place] [id number] [facility] Provider: Ashley Khoury MD, FACC PCP: Dr. Trang Duenas Supervising provider: Marina Goldsmith MD INDICATION: Abnormal EKG; PVC Murmur HISTORY: Gender: M; Age: 83 y/o ; Height: HT 180.3 cm cm; Weight: WT 77.111 kg kg. Abnormal EKG; High Cholesterol; Diabetes; HTN; Arrhythmias; A-fib Quit smoking 34 years ago. COMPARISON: Previous nuclear testing completed [id number] at [facility]. ACCESSION NUMBER(S): [id number] ORDERING CLINICIAN: ASHLEY KHOURY TECHNIQUE: ONE DAY [...] Clarissa Sanchez 02/07/2024 4:47 PM Dictation workstation: [id number] ALLERGIES DATE TYPE / CODE NAME / CODE REACTION SEVERITY SOURCE 01/13/2024 DRUG INGREDI/3173230 03(SNOMED CT) ABIRATERONE [facility] 05/28/2023 Drug Class/842558360 (SNOMED CT) SULFA (SULFONAMIDE ANTIBIOTICS) [facility] ENCOUNTERS ADMIT/DISCHARGE ACCOUNT NUMBER ADMITTING ENCOUNTER CLASS LOCATION SOURCE 10/02/2024/10/03/19 [id number] Ambulatory Building:[facility] [id number] Ambulatory 09/13/2024/09/14/19 [id number] Ambulatory Building:[facility] 09/04/2024/09/05/19 25 [id number] Ambulatory Building:[facility] 08/30/2024/08/31/19 25 [id number] Ambulatory Building:[facility] 08/09/2024/08/10/19 25 [id number] [facility] 08/04/2024/08/05/19 [id number] Ambulatory Building:[facility] 07/26/2024/07/27/19 [id number] Ambulatory Building:[facility] 07/14/2024/07/14/19 [id number] Ambulatory Building:[facility] 06/30/2024/06/30/19 25 [id number] Ambulatory Building:[facility] 05/10/2024/05/10/20 24 [id number] [facility] 05/01/2024/05/01/20 24 [id number] Ambulatory Building:[address] Ambulatory 04/27/2024/04/27/20 24 [id number] Ambulatory Building:[facility] 02/21/2024/02/21/20 24 [id number] Ambulatory Building:[address] 02/07/2024/02/07/20 24 [id number] Ambulatory Building:[address] 02/07/2024/02/07/20 24 [id number] Ambulatory Building:[address] 02/07/2024/02/07/20 24 [id number] Ambulatory Building:[address] 02/07/2024/02/07/20 24 [id number] Ambulatory Building:[address] 02/07/2024/02/07/20 24 [id number] Ambulatory Building:[address] 02/07/2024/02/07/20 24 [id number] Ambulatory Building:[address] 01/13/2024/01/13/20 24 [id number] Ambulatory Building:[address] Ambulatory 01/11/2024/01/11/20 24 [id number] Ambulatory Building:NOM [facility] 11/15/2023/11/15/19 24 [id number] Ambulatory Building:NOM [facility] 10/26/2023/10/26/19 24 [id number] Ambulatory Building:[facility] PAYERS ENCOUNTER GUARANTOR PAYER SUBSCRIBER SOURCE 10/02/2024 DEV VALADEZ: [id number] [address] [place], [place] [address]Mmk: (HP) Primary Insurance:AETNA MEDICAREPolicy Number: [id number] Date:2023-05-24 DEV WALSHB: [id number] [address] [place], [place] [address]Rho: (HP) [facility] 09/13/2024 DEV WALSHB: [address] [place], [place] [address]Tel: (HP) Primary Insurance:AETNA MEDICARE ADVANTAGEPolicy Number: [id number] Date:2022-09-21 DEV WALSHB: [id number] [address] [place] [address] [facility] 09/04/2024 DEV WALSHB: [address] [place], [place] [address]: (HP) Primary Insurance:AETNA MEDICARE ADVANTAGEPolicy Number: [id number] Date:2022-09-21 DEV WALSHB: [id number] [address] [address] [facility] 08/30/2024 DEV WALSHB: [id number] [address] [address]Odm: (HP) Primary Insurance:AETNA MEDICARE ADVANTAGEPolicy Number: [id number] Date:2022-09-21 DEV WALSHB: [id number] [address] [place] [address] [facility] 08/09/2024 Dev Walsh[address] [address]Xkg: (HP) Primary Insurance:[employer] [facility] PFFSPolicy Number: [id number] Date:[id number] [address] MARY ELLEN Gerardo [address]EC: Dev WalshB: [id number] [address] [place], [place] [address]Tel: (HP) [facility] 08/09/2024 Secondary Insurance:Self PayPolicy Number: Effective Date:2024-08-07 NOT GIVENUNK [facility] 08/04/2024 DEV WALSHB: [address] [place] [address]Tel: (HP) Primary Insurance:AETNA MEDICARE ADVANTAGEPolicy Number: [id number] Date:2022-09-21 DEV WALSHB: [id number] [address] [place], [place] [address] [facility] 07/26/2024 DEV Olivas LYNNETTEB: [address] [place], [place] [address]Tel: (HP) Primary Insurance:AETNA MEDICARE ADVANTAGEPolicy Number: [id number] Date:2022-09-21 DEV Olivas LYNNETTEB: [id number] [address] [place], [place] [address] [facility] 07/14/2024 DEV WALSHB: [id number] STATE [place] [address]Tel: (HP) Primary Insurance:AETNA MEDICARE ADVANTAGEPolicy Number: [id number] Date:2022-09-21 DEV WALSHB: [id number] [address] [place] [address] [facility] 06/30/2024 DEV Olivas LYNNETTEB: [address] [place], [place] [address]: (HP) Primary Insurance:AETNA MEDICARE ADVANTAGEPolicy Number: [id number] Date:2022-09-21 DEV Olivas LYNNETTEB: [id number] [address] [place] [address], [place] [address] [facility] 05/10/2024 DEV Olivas LYNNETTEB: [address] [place] [address]Wsg: (HP) Primary Insurance:AETNA MEDICARE ADVANTAGEPolicy Number: [id number] Date:2022-09-21 DEV Olivas LYNNETTEB: [id number] [address] [place] [address], [place] [address] [facility] 05/01/2024 DEV LYNNETTEB: [address] [place], [place] [address]Pcq: (HP) Primary Insurance:AETNA MEDICAREPolicy Number: [id number] Date:2023-05-24 DEV LYNNETTEB: [id number] [address] [facility] [place] [address]Cit: (HP) [facility] 04/27/2024 DEV Olivas LYNNETTEB: [address] [place] [address], [place] [address]Bye: (HP) Primary Insurance:AETNA MEDICARE ADVANTAGEPolicy Number: [id number] Date:2022-09-21 DEV Olivas LYNNETTEB: [id number] [address] [place] [address] [facility] 02/21/2024 DEV LYNNETTEB: [address], [place] [address]Wzb: (HP) Primary Insurance:AETNA MEDICAREPolicy Number: [id number] Date:2023-05-24 DEV ALLYSON: [id number] 6 [address] [place], [place] [address]Jey: (HP) [facility] 02/07/2024 DEV CHURCHB: [address], [place] [address]Ofd: (HP) Primary Insurance:AETNA MEDICAREPolicy Number: [id number] Date:2023-05-24 DEV CHURCHB: [id number] [address], [place] [address]Elr: (HP) [facility] 02/07/2024 DEV CHURCHB: [address] [address]Akd: (HP) Primary Insurance:AETNA MEDICAREPolicy Number: [id number] Date:2023-05-24 DEV WALSHB: [id number] [address], [place] [address]Unk: (HP) [facility] 02/07/2024 DEV WALSHB: [address] [address]Sux: (HP) Primary Insurance:AETNA MEDICAREPolicy Number: [id number] Date:2023-05-24 DEV CHURCHB: [id number] [address], [place] [address]Csv: (HP) [facility] 02/07/2024 DEV CHURCHB: [address], [place] [address]Fys: (HP) Primary Insurance:AETNA MEDICAREPolicy Number: [id number] Date:2023-05-24 DEV WALSHB: [id number] [address], [place] [address]Zwu: (HP) [facility] 02/07/2024 DEV WALSHDOB: [address] [address]Hbz: (HP) Primary Insurance:AETNA MEDICAREPolicy Number: [id number] Date:2023-05-24 DEV WALSHB: [id number] [address] [place], [place] [address]Zeg: (HP) [facility] 02/07/2024 DEV WALSHB: [place], [place] [address]Cpi: (HP) Primary Insurance:AETNA MEDICAREPolicy Number: [id number] Date:2023-05-24 DEV WALSHB: [id number] [address] [place], [place] [address]Uwz: (HP) [facility] 01/13/2024 DEV WALSHB: [place], [place] [address]Ztb: (HP) Primary Insurance:AETNA MEDICAREPolicy Number: [id number] Date:2023-05-24 DEV LYNNETTEB: [id number] 6 [place], [place] [address]Zru: (HP) [facility] 01/11/2024 DEV Olivas LYNNETTEB: [address] [place] [address]Qay: () Primary Insurance:AETNA MEDICARE ADVANTAGEPolicy Number: [id number] Date:2022-09-21 DEV CHURCHB: [id number] [address] [place] [address] [facility] 11/15/2023 DEV CHURCHB: [id number] [address] [place] [address], [place] [address]Gmn: (HP) () Primary Insurance:AETNA MEDICARE ADVANTAGEPolicy Number: [id number] Date:2022-09-21 DEV CHURCHB: [id number] [address] [place] [address], [place] [address] [facility] 10/26/2023 DEV VALADEZ: [id number] [address] [place] [address]Okk: (HP) (WP) Primary Insurance:AETNA MEDICARE ADVANTAGEPolicy Number: [id number] Date:2022-09-21 DEV VALADEZ: [id number] [address] [place] [address] [facility]
--- OUTSIDE RECORDS SUMMARY | 2024-10-02 11:45 | XMS_ITS | Encounter Summary ---
Author Organization [facility] Address [address] [place] [address] Phone Care Team Providers Care Jewelry Consultant Name Role Phone Nirav Duenas DO Primary Care Provider + [phone] Reason for Referral * Consultation (Routine) - Authorized Specialty Diagnoses / Procedures Referred By Contac t Referred To Contact Cardiology Diagnoses Primary hypertension Procedures Follow Up In Cardiology Missy Khoury MD [address] [place] [address] Phone: tel: fax: Missy Khoury MD [address] [place] [address] Phone: tel: fax: Referral ID Status Reason Start Date Expiration Date V isits Requested Visits Authorized [id number] Authorized 10/02/2024 10/02/2025 1 1 Reason for Visit * Reason Comments Follow-up 5 month Follow up fo r Hypertension * Consultation (Routine) - Authorized Specialty Diagnoses / Procedures Referred By Contac t Referred To Contact Cardiology Diagnoses Paroxysmal atrial fibrillation (Multi) Procedures Follow Up In Cardiology Missy Khoury MD [address] [place] [address] Phone: tel: fax: Missy Khoury MD [address] [place] [address] Phone: tel: fax: Referral ID Status Reason Start Date Expiration Date V isits Requested Visits Authorized [id number] Authorized 05/01/2024 05/01/2025 1 1 Encounter Details Date Type Department Care Team (Late st Contact Info) Description 10/02/2024 11:45 AM EDT Office Visit [facility] [address] [facility] [address] [place] [address] Missy Khoury MD [address] [facility] [address] [place] [address] Paroxysmal atrial fibrillation (Multi); Primary hypertension; Stage 3a chronic kidney disease (Multi); 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 I through stage IV, or unspecified; Nonrheumatic mitral valve regurgitation; Mixed hyperlipidemia; Type 2 diabetes mellitus without complication, without long-term current use of insulin; Medication course changed; Body mass index (BMI) of 23.0 to 23.9 in adult; Former smoker Social History Tobacco Use Types Packs/Day Years Used Date Smoking Tobacco: Former Cigarettes Q uit: 1989 Smokeless Tobacco: Never Alcohol Use Standard Drinks/Week Comments Never 0 (1 standard drink = 0.6 oz pur e alcohol) Sex and Gender Information Value Date Recorded Sex Assigned at Not on file Legal Sex Male 9:56 PM EST Gender Identity Not on file Sexual Orientation Not on file COVID-19 Exposure Response Date Recorded In the last 10 days, have yo u been in contact with someone who was confirmed or suspected to have Coronavirus/COVID-19? No / Unsure 10/02/2024 11:32 AM EDT documented as of this encounter Last Filed Vital Signs Vital Sign Reading Time Taken Comments Blood Pressure 142/64 10/02/2024 11:54 AM EDT Pulse 64 10/02/2024 11:54 AM EDT Temperature - - Respiratory Rate - - Oxygen Saturation - - Inhaled Oxygen Concentration - - Weight 75.3 kg (166 lb) 10/02/2024 11:54 AM EDT Height 180.3 cm (5' 11 ) 10/02/2024 11:54 AM EDT Body Mass Index 23.15 10/02/2024 11:54 AM EDT documented in this encounter Patient Instructions * Patient Instructions* April Love LPN - 10/02/2024 11:45 AM EDT Please bring all medicines, vitamins, and herbal supplements with you when you come to the office. Prescriptions will not be filled unless you are compliant with your follow up appointments or have a follow up appointment scheduled as per instruction of your physician. Refills should be requested at the time of your visit. BMI normal documented in this encounter Progress Notes * Missy Khoury MD - 10/02/2024 11:45 AM EDT Images from the original note were not included. Chief Complaint: Chief Complaint Patient presents with Follow-up 5 month Follow up for Hypertension Subjective : Patient had 2 visits to the emergency department with accelerated hypertension. Primary MD added amlodipine 5 mg daily Blood pressures are better, but he reports that in the evenings it goes into the 160s and 170s. He has not been taking clonidine on a regular basis. Other than that he is doing well Review of Systems Constitutional: Negative for chills, diaphoresis and fever. HENT: Negative. Negative for drooling, ear discharge, mouth sores and trouble swallowing. Eyes: Negative. Negative for discharge. Respiratory: Negative for choking and stridor. Cardiovascular: Interval review of systems is negative for chest discomfort pressure tightness heaviness palpitations lightheadedness orthopnea paroxysmal nocturnal dyspnea dependent edema or claudication TIA or CVAtype symptoms or bleeding diathesis Gastrointestinal: Negative for abdominal pain and vomiting. Endocrine: Negative. Negative for cold intolerance and heat intolerance. Genitourinary: Negative. Negative for hematuria. Musculoskeletal: Negative for joint swelling. Skin: Negative for pallor. Allergic/Immunologic: Negative. Negative for immunocompromised state. Neurological: Negative for syncope and speech difficulty. Hematological: Negative. Psychiatric/Behavioral: Negative for suicidal ideas. exercises regularly, aerobic and strengthening exercises without any cardiac symptoms History so Far : 1. Primary hypertension 2. Recent acceleration of blood pressure related to Zytiga for prostate cancer 3. Tendency for sinus bradycardia 4. Symptomatic PVCs. 5. Allergy to sulfa 6. Mixed hyperlipidemia 7. Paroxysmal atrial fibrillation 8. Xnz-qsxyemj-vdjxchpon diabetes 9. [id number] score of 4. 10. Long-term anticoagulation with rivaroxaban 11. EKG June 2023-Leslie formed PVCs in a pattern of ventricular trigeminy and bigeminy normal intervals 12. Prior EKG shows atrial fibrillation with rapid ventricular rate. I believe this was from 2023 13. Systolic murmur of mitral regurgitation, most consistent with mitral valve prolapse. 14. Echocardiogram January 2024-LVEF 60% impaired LV relaxation normal left atrial size normal RVsize and systolic function mitral valve normal in structure mild to moderate mitral annular calcification mild to moderate mitral regurgitation trace tricuspid regurgitation RVSP 29 mmHg no pericardial effusion normal-sized aortic root LV end-systolic diameter 3.6 cm 15. Stress test February 10-7 METS 100% age-predicted maximum heart rate Caden protocol normal perfusion LVEF 67% transient ischemic dilatation 0.88 no significant change compared to stress test of 2009 study did not comment on ventricular ectopy 16. 48-hour Holter monitor January 2024-no symptoms sinus rhythm 49 bpm 201 bpm 2 short runs of ventricular tachycardia up to 4 beats maximum rate 95 bpm varying morphologies of ventricular ectopicbeats, PVC burden less than 2% 8 bursts of supraventricular tachycardia longest being 6 beats fastest 130 bpm atrial fibrillation was not identified Objective Wt Readings from Last 3 Encounters: 10/02/24 75.3 kg (166 lb) 05/01/24 78 kg (172 lb) 02/21/24 77.1 kg (170 lb) Vitals: 10/02/24 1154 BP: 142/64 BP Location: Left arm Patient Position: Sitting Pulse: 64 Weight: 75.3 kg (166 lb) Height: 1.803 m (5' 11 ) [...] effort. HEART: Rate and rhythm regular with no evident murmur; no gallop appreciated. ABDOMEN: Soft, non tender. MUSCULOSKELETAL: No gross deformities. EXTREMITIES: Warm There is no edema noted. Meds: Current Outpatient Medications Medication Instructions amLODIPine (NORVASC) 5 mg, Daily ascorbic acid, vitamin C, 500 mg capsule 1 capsule, Daily atorvastatin (LIPITOR) 10 mg, oral, Daily cholecalciferol (VITAMIN D-3) 25 mcg, Daily cloNIDine (CATAPRES) 0.1 mg, As needed cyanocobalamin (Vitamin B-12) 1,000 mcg tablet 1 tablet, Daily bvtyjc-mzunkbzr-awjaujy (Creon) 24,000-76,000 -120,000 unit capsule 1 capsule, 3 times daily (morning, midday, late afternoon) lisinopril 40 mg, oral, Daily lisinopril 20 mg, 2 times daily magnesium oxide (MAG-OX) 400 mg, oral, 2 times daily metFORMIN (Glucophage) 500 mg tablet 1 tablet, Daily metoprolol succinate XL (TOPROL-XL) 50 mg, 2 times daily mirtazapine (Remeron) 15 mg tablet 1 tablet, Nightly rivaroxaban (XARELTO) 20 mg, oral, Daily vit A/vit C/vit E/zinc/copper (ICAPS AREDS ORAL) 1 tablet, See admin instructions Allergies: Sulfa (sulfonamide antibiotics) and Zytiga [abiraterone] August 2024-hemoglobin 12.4 hematocrit 37.9 platelets 227 sodium 146 potassium 4.4 glucose 162 BUN 18 creatinine 1.27 GFR greater than 60 liver enzymes normal except albumin slightly low at 3.2 EKGs from April 2024 do show sinus rhythm with ventricular premature beats Reviewed all available pertinent laboratory data and diagnostic testing results that occurred afterthe last office visit with me Assessment: 1. Paroxysmal atrial fibrillation (Multi) Follow Up In Cardiology 2. Primary hypertension 3. Stage 3a chronic kidney disease (Multi) 4. 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 I through stage IV, or unspecified 5. Nonrheumatic mitral valve regurgitation 6. Mixed hyperlipidemia 7. Type 2 diabetes mellitus without complication, without long-term current use of insulin 8. Body mass index (BMI) of 23.0 to 23.9 in adult 9. Former smoker Clinical Decision Making: Patient has resistant hypertension. He has hypertensive kidney disease stage IIIa. Reviewed laboratory data. We will plan to add clonidine 0.1 mg at dinnertime on a regular basis. Patient can also take clonidine 0.1 mg as needed if systolic blood pressure goes above 180 mmHg. Follow-up in 6 to 8 weeks. Maintain blood pressure log. If blood pressure still uncontrolled, we may have to consider continuing Toprol- XL and the amlodipine and switching to labetalol for alpha blocking properties. No symptoms of hypoglycemia. Follow up : 6-8 weeks April Edwards LPN am scribing for, and in the presence of Dr. Missy Khoury MD, FACC. I, Dr. Missy Khoury MD, FACC, personally performed the services described in the documentation as scribed by April Cheng LPN in my presence, and confirm it is both accurate and complete. documented in this encounter Plan of Treatment Upcoming Encounters Date Type Department Care Team (Late st Contact Info) Description 12/14/2024 10:30 AM EDT Office Visit [facility] [address] [facility] [address] [place] [address] Missy Khoury MD [address] [facility] [address] [place] [address] documented as of this encounter Visit Diagnoses Diagnosis Paroxysmal atrial fibrillation (Multi) Atrial fibrillation Primary hypertension Unspecified essential hypertension Stage 3a chronic kidney disease (Multi) 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 I through stage IV, or unspecified Nonrheumatic mitral valve regurgitation Mixed hyperlipidemia Type 2 diabetes mellitus without complication, without long-term current use of insulin Medication course changed Body mass index (BMI) of 23.0 to 23.9 in adult Former smoker Personal history of tobacco use, presenting hazards to health documented in this encounter Additional Health Concerns Assessment Noted Time A fall risk assessment has been complete d for the patient 10/02/2024 11:55 AM EDT documented as of this encounter Care Teams Jewelry Consultant Relationship Specialty Start Date End Date Nirav Duenas DO [address] [place] [address] PCP - General 05/24/99 documented as of this encounter
--- OUTSIDE RECORDS SUMMARY | 2024-10-13 07:16 | XMS_ITS | Encounter Summary ---
Author Organization [facility] Address [address] [facility] [place] [address] Care Team Providers Care Venture Capitalist Name Role Phone Nirav Duenas DO Unavailable [phone] Nirav Duenas DO Primary Care Provider [phone] Marianne Davis MD Unavailable [phone] Encounter Details Date Type Department Care Team (Late Contact Info) Description 12/24/2022 Orders Only [facility] IM [address] [facility] [address] [place] [address] A, Unknown Practice [address] [place], [place] [id number] Social History Tobacco Use Types Packs/Day Years Used Date Smoking Tobacco: Former Cigarettes Q uit: 05/24/1959 Passive Smoke Exposure: Past Smokeless Tobacco: Never Alcohol Use Standard Drinks/Week Comments Yes 0 (1 standard drink = 0.6 oz pure alcohol) Alcohol: 1 or 2 drinks, 2 to 4 times a month; Caffeine: 1-2 cups/day iced tea, diet coke occasionally PHQ-2 Answer Date Recorded Patient Health Questionnaire-2 Score 0 11/10/2022 Sex and Gender Information Value Date Recorded Sex Assigned at Not on file Legal Sex Male 7:06 PM EDT Gender Identity Not on file Sexual Orientation Not on file documented as of this encounter Plan of Treatment Upcoming Encounters Date Type Department Care Team (Late st Contact Info) Description 10/26/2024 9:35 AM EDT Office Visit [facility] [address] [facility] [address] [place] [address] Charleen Hensley MD [address] [place] [address] 11/14/2024 9:30 AM EDT Office Visit [facility] [address] [place] [address] Nirav Duenas DO [address] [place] [address] documented as of this encounter Procedures Procedure Name Priority Date/Time Associated Diagnosis Comments COLONOSCOPY Routine 12/24/2022 1:49 PM EDT documented in this encounter Results * Colonoscopy (12/24/2022 1:49 PM EDT) Anatomical Region Laterality Modality Endoscopy us Unknown Practice A ENDOSCOPY PROCEDURE ORDERABLE S Final Result documented in this encounter Visit Diagnoses Not on filedocumented in this encounter Care Teams Venture Capitalist Relationship Specialty Start Date End Date Nirav Duenas DO [address] [place] [address] PCP - [employer]et[employer] 05/24/20 Nirav Duenas DO [address] [place] [address] PCP - General Internal Medicine 11/10/22 Marianne Davis MD [address] [facility] [address] [place] [address] Referring Physician Cardiology 05/12/23 documented as of this encounter
--- OUTSIDE RECORDS SUMMARY | 2024-10-13 07:16 | XMS_ITS | Encounter Summary ---
Author Organization [facility] Address [address] [facility] [place] [address] Care Team Providers Care Curriculum Writer Name Role Phone Nirav Duenas DO Unavailable [phone] Nirav Duenas DO Primary Care Provider [phone] Marianne Davis MD Unavailable [phone] Encounter Details Date Type Department Care Team (Late Contact Info) Description 03/16/2023 Orders Only [facility] IM [address] [facility] [address] [place] [address] A, Unknown Practice [address] [place], [place] [phone] Social History Tobacco Use Types Packs/Day Years [...] 10/26/2024 9:35 AM EDT Office Visit [facility] [address] [facility] [address] [place] [address] Charleen Hensley MD [address] [place] [address] 11/14/2024 9:30 AM EDT Office Visit [facility] [address] [place] [address] Nirav Duenas DO [address] [place] [address] documented as of this encounter Procedures Procedure Name Priority Date/Time Associated Diagnosis Comments DIABETES EYE EXAM Routine 03/16/2023 4:12 PM EDT documented in this encounter Results * Diabetes Eye Exam (03/16/2023 4:12 PM EDT) us Unknown Practice [facility] [employer]TE[employer]NCE Final Resu lt documented in this encounter Visit Diagnoses Not on filedocumented in this encounter Care Teams Curriculum Writer Relationship Specialty Start Date End Date Nirav Duenas DO [address] [place] [address] PCP - [employer] 05/24/20 Nirav Duenas DO [address] [place] [address] PCP - General Internal Medicine 11/10/22 Marianne Davis MD [address] [facility] [address] [place] [address] Referring Physician Cardiology 05/12/23 documented as of this encounter
--- OUTSIDE RECORDS SUMMARY | 2024-10-13 07:16 | XMS_ITS | Encounter Summary ---
Author Organization [facility] Address [address] [facility] [place] [address] Care Team Providers Care Pumper Gauger Apprentice Name Role Phone Nirav Duenas DO Unavailable [phone] Nirav Duenas DO Primary Care Provider [phone] Marianne Davis MD Unavailable [phone] Encounter Details Date Type Department Care Team (Late st Contact Info) Description 11/11/2023 Orders Only [facility] [address] [facility] [address] [place] [address] A, Unknown Practice [address] [place], [place] [address] Social History Tobacco Use Types Packs/Day Years Used Date Smoking Tobacco: Former Cigarettes 0.3 3 0 06/12/1956 - 05/24/1959 Pipe Passive Smoke Exposure: Past Smokeless Tobacco: Never Alcohol Use Standard Drinks/Week Comments Yes 0 (1 standard drink = 0.6 oz pur e alcohol) on occasion AUDIT-C Answer Date Recorded Q1: How often do you have a drink containing alc ohol? 2-4 times a month 11/15/2023 Q2: How many drinks containi ng alcohol do you have on a typical day when you are drinking? 1 or 2 11/15/2023 Q3: How often do you have si x or more drinks on one occasion? Never 11/15/2023 PHQ-2 Answer Date Recorded Patient Health Questionnaire-2 [...] [address] [place] [address] Charleen Hensley MD [address] [place] [address] 11/14/2024 9:30 AM EDT Office Visit [facility] [address] [place] [address] Nirav Duenas DO [address] [place] [address] documented as of this encounter Procedures Procedure Name Priority Date/Time Associated Diagnosis Comments DEXA BONE DENSITY Routine 11/09/2023 2:51 PM EDT documented in this encounter Results * DEXA bone density (11/09/2023 2:51 PM EDT) Anatomical Region Laterality Modality Body Radiographic Katey ging us Unknown Practice A IMG DXA PROCEDURES Final Resu lt documented in this encounter Visit Diagnoses Not on filedocumented in this encounter Care Teams Pumper Gauger Apprentice Relationship Specialty Start Date End Date Nirav Duenas DO [address] [place] [address] PCP - [employer] 05/24/20 Nirav Duenas DO [address] [place] [address] PCP - General Internal Medicine 11/10/22 Marianne Davis MD [address] [facility] [address] [place] [address] Referring Physician Cardiology 05/12/23 documented as of this encounter
--- OUTSIDE RECORDS SUMMARY | 2024-10-13 07:16 | XMS_ITS | Encounter Summary ---
Author Organization [facility] Address [address] [facility] [address] Care Team Providers Care Superintendent Production Name Role Phone Nirav Duenas DO Unavailable [phone] Nirav Duenas DO Primary Care Provider + [phone] Marianne Davis MD Unavailable [phone] Encounter Details Date Type Department Care Team (Late st Contact Info) Description 11/10/2022 Orders Only [facility] [address] [address] [place] [address] Provider, MD Wing [address] [place], [place] [id number] Social History Tobacco Use Types Packs/Day Years Used Date Smoking Tobacco: Never Passive Smoke Exposure: Past Smokeless Tobacco: Never Alcohol Use Standard Drinks/Week Comments Yes 0 (1 standard drink = 0.6 oz pur e alcohol) PHQ-2 Answer Date Recorded Patient Health Questionnaire-2 Score 0 11/10/2022 Sex and Gender Information Value Date Recorded Sex Assigned at Not on file Legal Sex Male 7:06 PM EDT Gender Identity Not on file Sexual Orientation Not on file documented as of this encounter Functional Status * Over the past 2 weeks, how often have you been bothered by any of the following problems? Question Answer Date of Assessment Author Little interest or pleasure in doing things Not at all 11/10/2022 8:00 AM EDT Herlinda Manning LPN Feeling down, depressed, or hopeless Not at all 11/10/2022 8:00 AM EDT Herlinda Manning LPN Patient Health Questionnaire -2 Score 0 11/10/2022 8:00 AM EDT Herlinda Manning LPN documented as of this encounter Plan of Treatment Upcoming Encounters Date Type Department Care Team (Late st Contact Info) Description 10/26/2024 9:35 AM EDT Office Visit [facility] [address] [place] [address] Charleen Hensley MD [address] [place] [address] 11/14/2024 9:30 AM EDT Office Visit [facility] [address] [place] [address] Nirva Duenas DO [address] [place] [address] documented as of this encounter Procedures Procedure Name Priority Date/Time Associated Diagnosis Comments HM COLONOSCOPY Routine 12/16/2015 3:00 PM EDT documented in this encounter Results * Hm Colonoscopy (12/16/2015 3:00 PM EDT) Anatomical Region Laterality Modality Other us Historical Provider HEALTH MAINTENANCE Final Result documented in this encounter Visit Diagnoses Not on filedocumented in this encounter Care Teams Superintendent Production Relationship Specialty Start Date End Date Nirav Duenas DO [address] [place] [address] PCP - [employer] 05/24/20 Nirav Duenas DO [address] [place] [address] PCP - General Internal Medicine 11/10/22 Marianne Davis MD [address] [facility] [address] [place] [address] Referring Physician Cardiology 05/12/23 documented as of this encounter
--- OUTSIDE RECORDS SUMMARY | 2024-10-13 07:16 | XMS_ITS | Encounter Summary ---
Author Organization [facility] Address [address] [facility] [place] [address] Care Team Providers Care Cash Applications Coordinator Name Role Phone Nirav Duenas DO Unavailable [phone] Nirav Duenas DO Primary Care Provider [phone] Marianne Davis MD Unavailable [phone] Encounter Details Date Type Department Care Team (Late st Contact Info) Description 05/12/2023 Orders Only [facility] IM [address] [place] [address] A, Unknown Practice [address] [place], [place] [phone] Social History Tobacco Use Types Packs/Day Years Used Date Smoking Tobacco: Former Cigarettes 0.3 3 0 06/12/1956 - 05/24/1959 Pipe Passive Smoke Exposure: Past Smokeless Tobacco: Never Alcohol Use Standard Drinks/Week Comments Yes 0 (1 standard drink = 0.6 oz pur e alcohol) on occasion PHQ-2 Answer Date Recorded Patient Health Questionnaire-2 [...] pleasure in doing things Not at all 05/12/2023 8:00 AM Margaret Butler LPN Feeling down, depressed, or hopeless Not at all 05/12/2023 8:00 AM Margaret Butler LPN Patient Health Questionnaire -2 Score 0 05/12/2023 8:00 AM Margaret Butler LPN documented as of this encounter Plan of Treatment Upcoming Encounters Date Type Department Care Team (Late st Contact Info) Description 10/26/2024 9:35 AM EDT Office Visit [facility] [address] [place] [address] Charleen Hensley MD [address] [place] [address] 11/14/2024 9:30 AM EDT Office Visit [facility] [address] [place] [address] Nirav Duenas DO [address] [place] [address] documented as of this encounter Procedures Procedure Name Priority Date/Time Associated Diagnosis Comments CT ABDOMEN & PELVIS W Routine 11/26/2022 9:54 AM EDT documented in this encounter Results * CT ABDOMEN & PELVIS W (11/26/2022 9:54 AM EDT) Anatomical Region Laterality Modality Radiographic Katey ging us Unknown Practice A IMG XR PROCEDURES Final Resul t documented in this encounter Visit Diagnoses Not on filedocumented in this encounter Care Teams Cash Applications Coordinator Relationship Specialty Start Date End Date Nirav Duenas DO [address] [place] [address] PCP - [employer] 05/24/20 Nirav Duenas DO [address] [place] [address] PCP - General Internal Medicine 11/10/22 Marianne Davis MD [address] [facility] [address] [place] [address] Referring Physician Cardiology 05/12/23 documented as of this encounter
--- OUTSIDE RECORDS SUMMARY | 2024-10-13 07:16 | XMS_ITS | Encounter Summary ---
Author Organization [facility] Address [address] [place] [address] Care Team Providers Care Calender Let Off Operator Name Role Phone Nirav Duenas DO Unavailable [phone] Nirav Duenas DO Primary Care Provider + [phone] Marianne Davis MD Unavailable [phone] Encounter Details Date Type Department Care Team (Late Contact Info) Description 02/21/2024 Clinisync Result Encounter [facility] External Department Unsolicited Provider, Generic External Data Social History Tobacco Use Types Packs/Day Years [...] containing alc ohol? 2-4 times a month 01/11/2024 Q2: How many drinks containi ng alcohol do you have on a typical day when you are drinking? 1 or 2 01/11/2024 Q3: How often do you have si x or more drinks on one occasion? Never 01/11/2024 PHQ-2 Answer Date Recorded Patient Health Questionnaire-2 [...] Visit [facility] [address] [place] [phone] Charleen Hensley MD [address] [place] [address] 11/14/2024 9:30 AM EDT Office Visit [facility] [address] [place] [address] Nirav Duenas DO [address] [place] [address] documented as of this encounter Procedures Procedure Name Priority Date/Time Associated Diagnosis Comments TRANSTHORACIC ECHO (TTE) COMPLETE 02/21/2024 8:03 AM EDT documented in this encounter Results * Transthoracic echo (TTE) complete (02/21/2024 8:03 AM EDT) Anatomical Region Laterality Modality Ultrasound 02/21/2024 8:03 AM EDT Narrative 02/21/2024 2:06 PM EDT [address], [address] [place] [address] TRANSTHORACIC ECHOCARDIOGRAM REPORT Patient Name: EPIFANIO Kim Physician: [id number] Marina Goldsmith MD Study Date: 02/21/2024 Ordering Provider: [id number] ASHLEY CARVALHO MRN/PID: [id number] Fellow: Nurse: Date of /Age: 1 1940 / 83 years Environmental Department Manager: Jyoti Gutiérrez RDCS, RVT Gender: M Additional Staff: Height: 180.34 cm Admit Date: Weight: 77.11 kg Admission Status: BSA / BMI: 1.97 m2 / 23.71 kg/m2 Department Location: [facility] Blood Pressure: 142 /84 mmHg Study Type: TRANSTHORACIC ECHO (TTE) COMPLETE Diagnosis/ICD: 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; Paroxysmal atrial fibrillation-I48.0 Indication: Diabetes, HTN, Hyperlipidemia, Murmur, Former Smoker, Prostate Cancer with Metastases, CKD-Stage III CPT Codes: Echo Complete w Full [id number] Study Detail: The following Echo studies were [...] mmHg PIEDV: 2.08 m/s PADP: 20.3 mmHg [id number] Marina Goldsmith MD Electronically signed on 02/21/2024 at 2:06:09 PM Final Procedure Note Radiology, Radiologist, - 02/21/[address], [address] [place] [address] TRANSTHORACIC ECHOCARDIOGRAM REPORT Patient Name: EPIFANIO Kim Physician: [id number] Sylvester Study Date: 02/21/2024 Ordering Provider: CHARLETTE CARVALHO MRN/PID: [id number] Fellow: Nurse: Date of /Age: 1 1940 / 83 years Environmental Department Manager: Sherine ZARAGOZA RVT Gender: M Additional Staff: Height: 180.34 cm Admit Date: Weight: 77.11 kg Admission Status: BSA / BMI: 1.97 m2 / 23.71 kg/m2 Department Location: [facility] Blood Pressure: 142 /84 mmHg Study Type: TRANSTHORACIC ECHO (TTE) COMPLETE Diagnosis/ICD: 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; Paroxysmalatrial fibrillation-I48.0 Indication: Diabetes, HTN, Hyperlipidemia, Murmur, Former Smoker,Prostate Cancer with Metastases, CKD-Stage III CPT Codes: Echo Complete w Full Doppler-[id number] Study Detail: The following Echo studies were performed: 2D, M-Mode,Doppler and color flow. PHYSICIAN INTERPRETATION: Left Ventricle: The left ventricular systolic function is normal, with avisually estimated ejection fraction of 60%. There are no regional wallmotion abnormalities. The left ventricular cavity size is normal. SpectralDoppler shows an impaired relaxation pattern of left ventricular diastolicfilling. Left Atrium: The left atrium is normal in size. Right Ventricle: The right ventricle is normal in size. There is normalright ventricular global systolic function. Right Atrium: The right atrium is normal in size. Aortic Valve: The aortic valve is trileaflet. There is mild aortic valvecusp calcification. The aortic valve dimensionless index is 0.68. There ismild aortic valve regurgitation. The peak instantaneous gradient of theaortic valve is 4.8 mmHg. The mean gradient of the aortic valve is 2.0mmHg. Mitral Valve: The mitral valve is normal in structure. There is mild tomoderate mitral annular calcification. There is mild to moderate mitralvalve regurgitation. Tricuspid Valve: The tricuspid valve is structurally normal. There istrace tricuspid regurgitation. The Doppler estimated RVSP is within normallimits at 29.4 mmHg. Pulmonic Valve: The pulmonic valve is structurally normal. There is noindication of pulmonic valve regurgitation. Pericardium: No pericardial effusion noted. Aorta: The aortic root is normal. Pulmonary Artery: The Doppler estimated pulmonary artery diastolicpressure is 20.3 mmHg. CONCLUSIONS: 1. The left ventricular systolic function is normal, with a visuallyestimated ejection fraction of 60%. 2. Spectral Doppler shows an impaired relaxation pattern of leftventricular diastolic filling. 3. There is normal right [...] mmHg PIEDV: 2.08 m/s PADP: 20.3 mmHg [id number] Marina Goldsmith MD Electronically signed on 02/21/2024 at 2:06:09 PM Final us Generic External Data Provider CV ECHO PROCEDURE S Final Result documented in this encounter Visit Diagnoses Not on filedocumented in this encounter Care Teams Calender Let Off Operator Relationship Specialty Start Date End Date Nirav Duenas DO [address] [place] [address] PCP - [employer] 05/24/20 Nirav Duenas DO [address] [place] [address] PCP - General Internal Medicine 11/10/22 Marianne Davis MD [address] [address] Referring Physician Cardiology 05/12/23 documented as of this encounter
--- OUTSIDE RECORDS SUMMARY | 2024-10-13 07:16 | XMS_ITS | Encounter Summary ---
Author Organization [facility] Address [address] [facility] [place] [address] Care Team Providers Care Security Expert Name Role Phone Nirav Duenas DO Unavailable [phone] Nirav Deunas DO Primary Care Provider [phone] Marianne Davis MD Unavailable [phone] Encounter Details Date Type Department Care Team (Late st Contact Info) Description 12/27/2023 Orders Only [facility] IM [address] [facility] [address] [place] [address] A, Unknown Practice [address] [place], [place] [address] Social History Tobacco Use Types Packs/Day Years [...] [address] [place] [address] Charleen Hensley MD [address] [place] [address] 11/14/2024 9:30 AM EDT Office Visit [facility] [address] [place] [address] Nirav Duenas DO [address] [place] [address] documented as of this encounter Procedures Procedure Name Priority Date/Time Associated Diagnosis Comments XR CHEST 1 VIEW Routine 12/27/2023 9:56 AM EDT documented in this encounter Results * XR chest 1 view (12/27/2023 9:56 AM EDT) Anatomical Region Laterality Modality Chest Radiographic Katey ging us Unknown Practice A IMG XR PROCEDURES Final Resul t documented in this encounter Visit Diagnoses Not on filedocumented in this encounter Care Teams Security Expert Relationship Specialty Start Date End Date Nirav Duenas DO [address] [place] [address] PCP - [employer] 05/24/20 Nirav Duenas DO [address] [place] [address] PCP - General Internal Medicine 11/10/22 Marianne Davis MD [address] [facility] [address] [place] [address] Referring Physician Cardiology 05/12/23 documented as of this encounter
--- OUTSIDE RECORDS SUMMARY | 2024-10-13 07:16 | XMS_ITS | Encounter Summary ---
Author Organization [facility] Address [address] [place] [address] Care Team Providers Care Mortgage Clerk Name Role Phone Nirav Duenas DO Unavailable [phone] Nirav Duenas DO Primary Care Provider [phone] Marianne Davis MD Unavailable [phone] Encounter Details Date Type Department Care Team (Late Contact Info) Description 09/30/2023 Orders Only [facility] [address] [place] [address] A, Unknown Practice [address] [place], [place] [phone] Social History Tobacco Use Types Packs/Day Years [...] Encounters Date Type Department Care Team (Late Contact Info) Description 10/26/2024 9:35 AM EDT Office Visit [facility] [address] [place] [address] Charleen Hensley MD [address] [place] [address] 11/14/2024 9:30 AM EDT Office Visit [facility] [address] [place] [address] Nirav Duenas DO [address] [place] [address] documented as of this encounter Procedures Procedure Name Priority Date/Time Associated Diagnosis Comments CT HEAD FOR BRAINLAB W/O CONTRAST Routine 09/29/2023 8:30 AM EDT documented in this encounter Results * CT HEAD FOR BRAINLAB W/O CONTRAST (09/29/2023 8:30 AM EDT) Anatomical Region Laterality Modality Radiographic Katey ging us Unknown Practice A IMG XR PROCEDURES Final Resul t documented in this encounter Visit Diagnoses Not on filedocumented in this encounter Care Teams Mortgage Clerk Relationship Specialty Start Date End Date Nirav Duenas DO [address] [place] [address] PCP - [employer] 05/24/20 Nirav Duenas DO [address] [place] [address] PCP - General Internal Medicine 11/10/22 Marianne Davis MD [address] [facility] [address] [place] [address] Referring Physician Cardiology 05/12/23 documented as of this encounter
--- OUTSIDE RECORDS SUMMARY | 2024-10-13 07:16 | XMS_ITS | Encounter Summary ---
Author Organization [facility] Address [address] [place] [address] Care Team Providers Care As400 Programmer Analyst Name Role Phone Gabriel Duenas DO Unavailable [phone] Gabriel Duenas DO Primary Care Provider + [phone] Marianne Davis MD Unavailable [phone] Encounter Details Date Type Department Care Team (Late Contact Info) Description 11/11/2023 Clinisync Result Encounter [facility] External Department Unsolicited [...] [address] [place] [phone] Charleen Hensley MD [address] [place] [address] 11/14/2024 9:30 AM EDT Office Visit [facility] [address] [place] [phone] Gabriel Duenas DO [address] [place] [address] documented as of this encounter Procedures Procedure Name Priority Date/Time Associated Diagnosis Comments XR DEXA AXIAL SKELETON 11/11/2023 1:42 PM EDT documented in this encounter Results * XR DEXA AXIAL SKELETON (11/11/2023 1:42 PM EDT) Anatomical Region Laterality Modality Other 11/11/2023 1:42 PM EDT Narrative 11/11/2023 1:45 PM EDT The [address] [address] XRay Report Signed Patient: DEV WALSH MR#: [id number] : 1940 Acct:[id number] Age/Sex: 83 / M ADM Date: 11/09/23 Loc: RAD Attending Dr: Non-Staff Physician M.Siri Ordering Physician: PhysicianNon-Staff MJayme Date of Service: 11/09/23 Procedure(s): XR DEXA axial skeleton Accession Number(s): [id number] cc: GABRIEL DUENAS ; Physician,Non-Staff MJayme The [address] [address] Patient Name: DEV WALSH MRN: [id number] date: 1940 Sex: M Assigned Patient Location: RAD Current Patient Location: Accession/Order Number: [id number] Exam Date: 11/09/2023 15:05 Report Date: 11/11/2023 13:42 At the request of: NON-STAFF PHYSICIAN Procedure: XR DEXA axial skeleton EXAMINATION: XR DEXA axial skeleton HISTORY: Osteoporosis COMPARISON: No relevant comparison available. TECHNIQUE: Dual-energy X-ray absorptiometry (DXA) was performed. FINDINGS: SPINE ANALYSIS: Average bone mineral density is 1.065 g/cm2. T-score (standard deviation relative to young adult mean): -1.3 . HIP ANALYSIS: Lowest bone mineral density is within the left femoral neck, 0.663 g/cm2. T-score (standard deviation relative to young adult mean): -3.1 . XR/XR DEXA axial skeleton IMPRESSION: World Ti Organization Classification: Osteoporosis - High Fracture Risk FRAX: Cannot be calculated Pharmacologic treatment recommendations * No uniform recommendation applies to all patients. Management plans must be individualized. * Consider initiating pharmacologic treatment in postmenopausal women and men >= 50 years of age who have the following: Primary fracture prevention: * T-score <= - 2.5 at the femoral neck, total hip, lumbar spine, 33% radius (some uncertainty with existing data) by DXA. * Low bone mass (osteopenia: T-score between - 1.0 and - 2.5) at the femoral neck or total hip by DXA with a 10-year hip fracture risk >= 3% or a 10-year major osteoporosis-related fracture risk >= 20% (i.e., clinical vertebral, hip, forearm, or proximal humerus) based on the US-adapted FRAXregistered model. Secondary fracture prevention: * Fracture of the hip or vertebra regardless of BMD [4, 5]. * Fracture of proximal humerus, pelvis, or distal forearm in persons with low bone mass (osteopenia: T-score between - 1.0 and - 2.5). The decision to treat should be individualized in persons with a fracture of the proximal humerus, pelvis, or distal forearm who do not have osteopenia or low BMD [12, 13]. Adriana MS, Alyssa SL, Opal KL, Andres EM, Danette KG, AJ, Jaquelin ES. The clinician's guide to prevention and treatment of osteoporosis. Osteoporos Int. 2021;33(10):6680-6097. doi: 10.1007/y38198-345-83040-x. Epub 2021Sep 18. Erratum in: Osteoporos Int. 2021Dec 18;: PMID: 30441530; PMCID: MQV1980587. Electronically authenticated by: KISHORE KIDD Date: 11/11/2023 13:42 Dictated By: Kishore Kidd M.D. Signed By: 11/11/23 1345 DD/ 1342 TD/TT: General Assistant: Procedure Note Radiology, Radiologist, MD - 11/11/2023 [place] [address] XRay Report Signed Patient: DEV WALSH TMR#: [id number] : 1940cct:[id number] Age/Sex: 83 / MADM Date: 11/09/23 Loc: M[facility] Attending Dr: Non-Staff Physician MJayme Ordering Physician: Physician,Non-Staff Cande Date of Service: 11/09/23 Procedure(s): XR DEXA axial skeleton Accession Number(s): [id number] cc: GABRIEL DUENAS ; Physician,Non-Staff Cande The [place] [id number] Patient Name: DEV WALSH MRN: [id number] date: 1940 Sex: M Assigned Patient [facility]: [facility] Current Patient Location: Accession/Order Number: [id number] Exam Date: 11/09/2023 15:05 Report Date: 11/11/2023 13:42 At the request of: NON-STAFF PHYSICIAN Procedure: XR DEXA axial skeleton EXAMINATION: XR DEXA axial skeleton HISTORY: Osteoporosis COMPARISON: No relevant comparison available. TECHNIQUE: Dual-energy X-ray absorptiometry (DXA) was performed. FINDINGS: SPINE ANALYSIS: Average bone mineral density is 1.065 g/cm2. T-score (standard deviation relative to young adult mean): -1.3 . HIP ANALYSIS: Lowest bone mineral density is within the left femoral neck, 0.663 g/cm2. T-score (standard deviation relative to young adult mean): -3.1 . XR/XR DEXA axial skeleton IMPRESSION: World Ti Organization Classification: Osteoporosis - High Fracture Risk FRAX: Cannot be calculated Pharmacologic treatment recommendations * No uniform recommendation applies to all patients. Management plans mustbe individualized. * Consider initiating pharmacologic treatment in postmenopausal women andmen >= 50 years of age who have the following: Primary fracture prevention: * T-score <= - 2.5 at the femoral neck, total hip, lumbar spine, 33%radius (some uncertainty with existing data) by DXA. * Low bone mass (osteopenia: T-score between - 1.0 and - 2.5) at thefemoral neck or total hip by DXA with a 10-year hip fracture risk >= 3% or [id number] major osteoporosis-related fracture risk >= 20% (i.e., clinical vertebral, hip, forearm, or proximal humerus) based on the US-adapted FRAXregisteredmodel. Secondary fracture prevention: * Fracture of the hip or vertebra regardless of BMD [4, 5]. * Fracture of proximal humerus, pelvis, or distal forearm in persons withlow bone mass (osteopenia: T-score between - 1.0 and - 2.5). The decision totreat should be individualized in persons with a fracture of the proximalhumerus, pelvis, or distal forearm who do not have osteopenia or low BMD [12, 13]. Adriana MS, Alyssa SL, Opal KL, Andres EM, Danette KG, AJ,Jaquelin ES. The clinician's guide to prevention and treatment of osteoporosis.Osteoporos Int. 2021;33(10):7103-7224. doi: 10.1007/g42883-675-22673-h. Ep. Erratum in: Osteoporos Int. 2021Dec 18;: PMID: 97418748; PMCID: [id number]. Electronically authenticated by: KISHORE KIDD Date: 11/11/2023 13:42 Dictated By: Kishore Kidd M.D. Signed By:11/11/23 1346 DD/ 1349 TD/TT: General Assistant: us Generic External Data Provider [facility] Final Result documented in this encounter Visit Diagnoses Not on filedocumented in this encounter Care Teams As400 Programmer Analyst Relationship Specialty Start Date End Date Gabriel Duenas DO [address] [place] [address] PCP - [employer] 05/24/20 Gabriel Duenas DO [address] [place] [address] PCP - General Internal Medicine 11/10/22 Marianne Davis MD [address] [address] Referring Physician Cardiology 05/12/23 documented as of this encounter
--- OUTSIDE RECORDS SUMMARY | 2024-10-13 07:16 | XMS_ITS | Clinical Summary ---
Author Organization [facility] Address [address] [place] [address] Phone Care Team Providers Care Director Of Rooms Name Role Phone Nirav Duenas DO Primary Care Provider [phone] Allergies Active Allergy Reactions Criticality Noted Date Comments Sulfa (Sulfonamide Antibiotics) Hives 09/2023 Abiraterone Other 01/13/2024 hypertension Medications vit A/vit C/vit E/zinc/copper (ICAPS AREDS ORAL) Take 1 tablet by mouth see administration instructions. Active ascorbic acid, vitamin C, 500 mg capsule Take 1 capsule by mouth once daily. Active cholecalciferol (Vitamin D-3) 25 MCG (1000 UT) capsule Take 1 capsule (25 mcg) by mouth once daily. Active cyanocobalamin (Vitamin B-12) 1,000 mcg tablet Take 1 tablet (1,000 mcg) by mouth once daily. Active metFORMIN (Glucophage) 500 mg tablet Take 1 tablet (500 mg) by mouth once daily. 07/05/19 Active mirtazapine (Remeron) 15 mg tablet Take 1 tablet (15 mg) by mouth once daily at bedtime. 05/14/20 21 Active yukqtp-ihbdtusk-b mylase (Creon) 24,000-76,000 -120,000 unit capsule Take 1 capsule by mouth 3 times daily (morning, midday, late afternoon). 11/18/19 23 Active magnesium oxide (Mag-Ox) 400 mg (241.3 mg magnesium) tabletIndications :Paroxysmal atrial fibrillation (Multi) Take 1 tablet (400 mg) by mouth 2 times a day. 180 tablet 3 01/13/20 24 025 Active cloNIDine (Catapres) 0.1 mg tabletIndications :Primary hypertension Take 1 tablet (0.1 mg) by mouth once daily. 90 tablet 1 10/03/19 25 026 Active rivaroxaban (Xarelto) 20 mg tabletIndications :Paroxysmal atrial fibrillation (Multi) Take 1 tablet (20 mg) by mouth once daily. 90 tablet 1 10/03/19 25 026 Active metoprolol succinate XL (Toprol-XL) 50 mg 24 hr tabletIndications :Primary hypertension Take 1 tablet (50 mg) by mouth 2 times a day. Do not crush or chew. 180 tablet 1 10/03/19 25 026 Active lisinopril 20 mg tabletIndications :Primary hypertension Take 1 tablet (20 mg) by mouth 2 times a day. 180 tablet 1 10/03/19 25 026 Active atorvastatin (Lipitor) 20 mg tabletIndications :Mixed hyperlipidemia Take 0.5 tablets (10 mg) by mouth once daily. 45 tablet 1 10/03/19 25 026 Active amLODIPine (Norvasc) 5 mg tabletIndications :Primary hypertension Take 1 tablet (5 mg) by mouth once daily. 90 tablet 1 10/03/19 026 Active atorvastatin (Lipitor) 20 mg tabletIndications :Mixed hyperlipidemia Take 0.5 tablets (10 mg) by mouth once daily. 45 tablet 1 05/01/20 025 Disconti nued(Reo rder) lisinopril 20 mg tabletIndications :Essential hypertension Take 2 tablets (40 mg) by mouth once daily. 180 tablet 1 05/01/20 24 025 Disconti nued(Med List Cleanup) metoprolol succinate XL (Toprol-XL) 50 mg 24 hr tabletIndications :Paroxysmal atrial fibrillation (Multi) Take 2 tablets (100 mg) by mouth once daily. Do not crush or chew. 180 tablet 1 05/01/20 24 025 Disconti nued(Dos e adjustme nt) rivaroxaban (Xarelto) 20 mg tabletIndications :Paroxysmal atrial fibrillation (Multi) Take 1 tablet (20 mg) by mouth once daily. 90 tablet 1 05/01/20 24 025 Disconti nued(Reo rder) amLODIPine (Norvasc) 5 mg tablet Take 1 tablet (5 mg) by mouth once daily. 08/02/19 25 025 Disconti nued(Reo rder) cloNIDine (Catapres) 0.1 mg tablet Take 1 tablet (0.1 mg) by mouth if needed for high blood pressure. 025 Disconti nued(Dos e adjustme nt) metoprolol succinate XL (Toprol-XL) 50 mg 24 hr tablet Take 1 tablet (50 mg) by mouth 2 times a day. Do not crush or chew. 025 Disconti nued(Reo rder) lisinopril 20 mg tablet Take 1 tablet (20 mg) by mouth 2 times a day. 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 05/01/2024 PVC (premature ventricular contraction) 01/13/20 24 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 current use of 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 0 01/13/2024 High risk medication use 01/13/2024 Stage 3a chronic kidney disease (Multi) 01/13/20 24 Prostate cancer (Multi) 01/13/2024 Nonrheumatic mitral valve regurgitation 01/13/20 24 Former smoker 07/13/2023 Primary hypertension 05/28/2023 Diabetes mellitus (Multi) 05/28/2023 Hyperlipidemia 05/28/2023 Paroxysmal atrial fibrillation (Multi) 4 Encounters Date Type Department Care Team Description 10/02/2024 11:45 AM EDT Office Visit [address] [address] Missy Khoury MD Paroxysmal atrial fibrillation (Multi); Primary hypertension; Stage 3a chronic kidney disease (Multi); 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 I through stage IV, or unspecified; Nonrheumatic mitral valve regurgitation; Mixed hyperlipidemia; Type 2 diabetes mellitus without complication, without long-term current use of insulin; Medication course changed; Body mass index (BMI) of 23.0 to 23.9 in adult; Former smoker 10/02/2024 Travel 08/07/[address] [address] Britney Salgado LPN medication hold from Last 3 Months Immunizations Immunization Administration Dates Next Due Influenza, trivalent, adjuvanted 03/25/2024 Pneumococcal conjugate vaccine, 13-valent (PREVN AR 13) 05/24/2016 Pneumococcal polysaccharide vaccine, 23-valent, age 2 years and older (PNEUMOVAX 23) 05/24/2012 Zoster vaccine, recombinant, adult (SHINGRIX) ,12/22/2018 Family History Medical History Relation Name Comments Heart disease Father Relation Name Status Comments Father Social History Tobacco Use Types Packs/Day Years [...] No / Unsure 10/02/2024 11:32 AM EDT Last Filed Vital Signs Vital Sign Reading [...] Mass Index 23.15 10/02/2024 11:54 AM EDT Plan of Treatment Upcoming Encounters Date Type Department Care Team (Late st Contact Info) Description 12/14/2024 10:30 AM EDT Office Visit [address] [address] Missy Khoury MD [address] [facility] [address] [place] [address] Health Maintenance Due Date Last Done Comments Diabetes: Hemoglobin A1C 1940 Diabetes: Urine Protein Screening 1940 Lipid Panel 1940 Medicare Annual Wellness Visit (AWV) 1940 Diabetes: Retinopathy Screening 1948 DTaP/Tdap/Td Vaccines (1 - Tdap) 1960 RSV High Risk: (Elderly (60+) or Population) (1 - 1-dose 75+ series) 2013 COVID-19 Vaccine ( season) 2024 03/25/2024, 04/28/2023, 04/03/2022, Additional history exists Bone Density Scan 11/08/2025 11/09/2023 Pneumococcal Vaccine Completed 05/24/2016, 12/14/2013, 05/24/2012, Additional history exists Zoster Vaccines Completed 03/11/2019, 080 05/2018, 10/10/2012 Influenza Vaccine Completed 03/25/2024, , 03/10/2022, Additional history exists HIB Vaccines Aged Out No longer eligi ble based on patient's age to complete this topic HPV Vaccines Aged Out No longer eligi ble based on patient's age to complete this topic Hepatitis A Vaccines Aged Out No long er eligible based on patient's age to complete this topic Hepatitis B Vaccines Aged Out No long er eligible based on patient's age to complete this topic IPV Vaccines Aged Out No longer eligi ble based on patient's age to complete this topic Meningococcal Vaccine Aged Out No maritza natty eligible based on patient's age to complete this topic Rotavirus Vaccines Aged Out No longer eligible based on patient's age to complete this topic Insurance AETNA [place] MEDICARE A[employer] [place] MEDIC[place] Care Teams Director Of Rooms Relationship Specialty Start Date End Date Nirav Duenas DO [address] [place] [address] PCP - General 05/24/99
--- OUTSIDE RECORDS SUMMARY | 2024-10-13 07:16 | XMS_ITS | Encounter Summary ---
Author Organization [facility] Address [address] [facility] [place] [address] Care Team Providers Care Veneer Clipper Helper Name Role Phone Nirav Duenas DO Unavailable [phone] Nirav Duenas DO Primary Care Provider [phone] Marianne Davis MD Unavailable [phone] Encounter Details Date Type Department Care Team (Late Contact Info) Description 05/06/2023 Orders Only [facility] IM [address] [facility] [address] [place] [address] A, Unknown Practice [address] [place], [place] [address] Social History Tobacco Use Types Packs/Day Years [...] 10/26/2024 9:35 AM EDT Office Visit [facility] DERM [address] [facility] [address] [place] [address] Charleen Hensley MD [address] [place] [address] 11/14/2024 9:30 AM EDT Office Visit [facility] [address] [place] [phone] Nirav Duenas DO [address] [facility] [address] [place] [address] documented as of this encounter Procedures Procedure Name Priority Date/Time Associated Diagnosis Comments SCANNED LABS Routine 05/06/2023 10:48 AM EST SCANNED LABS Routine 05/06/2023 9:17 AM EST documented in this encounter Results * SCANNED LABS (05/06/2023 10:48 AM EST) us Unknown Practice A LAB CHG PERFORMABLES Final Re sult * SCANNED LABS (05/06/2023 9:17 AM EST) us Unknown Practice A LAB CHG PERFORMABLES Final Re sult documented in this encounter Visit Diagnoses Not on filedocumented in this encounter Care Teams Veneer Clipper Helper Relationship Specialty Start Date End Date Nirav Duenas DO [address] [facility] [facility] [address] [place] [address] PCP - [employer] 05/24/20 Nirav Duenas DO [address] [facility] [address] [place] [address] PCP - General Internal Medicine 11/10/22 Marianne Davis MD [address] [facility] [address] [place] [address] Referring Physician Cardiology 05/12/23 documented as of this encounter
--- OUTSIDE RECORDS SUMMARY | 2024-10-13 07:16 | XMS_ITS | Encounter Summary ---
Author Organization [facility] Address [address] [place] [address] Care Team Providers Care Rn Peritoneal Dialysis Name Role Phone Nirav Duenas DO Unavailable [phone] Nirav Duenas DO Primary Care Provider [phone] Marianne Davis MD Unavailable [phone] Encounter Details Date Type Department Care Team (Late st Contact Info) Description 09/04/2024 Results Follow-Up [facility] D[facility]M [address] [facility] [address] [place] [address] Charleen Hensley MD [address] [facility] [address] [place] [address] Social History Tobacco Use Types Packs/Day Years [...] [address] [place] [address] Charleen Hensley MD [address] [place] [address] 11/14/2024 9:30 AM EDT Office Visit [facility] [address] [place] [address] Nirav Duenas DO [address] [place] [address] documented as of this encounter Visit Diagnoses Not on filedocumented in this encounter Care Teams Rn Peritoneal Dialysis Relationship Specialty Start Date End Date Nirav Duenas DO [address] [place] [address] PCP - [employer] 05/24/20 Nirav Duenas DO [address] [place] [address] PCP - General Internal Medicine 11/10/22 Marianne Davis MD [address] [facility] [address] [place] [address] Referring Physician Cardiology 05/12/23 documented as of this encounter
--- OUTSIDE RECORDS SUMMARY | 2024-10-13 07:16 | XMS_ITS | Encounter Summary ---
Author Organization [facility] Address [address] [place] [address] Phone Care Team Providers Care Franchise Specialist Name Role Phone Henrique, Nirav Vargas DO Primary Care Provider [phone] Encounter Details Date Type Department Care Team (Latest Contact Info) Description 10/02/2024 Travel Social History Tobacco Use Types Packs/Day Years [...] AM EDT documented as of this encounter Plan of Treatment Upcoming Encounters Date Type Department Care Team (Late st Contact Info) Description 12/14/2024 10:30 AM EDT Office Visit [facility] [address] [facility] [address] [place] [address] Missy Khoury MD [address] [facility] [address] [place], [place] [phone] documented as of this encounter Visit Diagnoses Not on filedocumented in this encounter Additional Health Concerns Assessment Noted Time A fall risk assessment has been complete d for the patient 10/02/2024 11:55 AM EDT documented as of this encounter Care Teams Franchise Specialist Relationship Specialty Start Date End Date Nirav Duenas DO [address] [place] [id number] PCP - General 05/24/99 documented as of this encounter
--- OUTSIDE RECORDS SUMMARY | 2024-10-13 07:16 | XMS_ITS | Encounter Summary ---
Author Organization [facility] Address [address] [place] [address] Care Team Providers Care Hide Inspector Name Role Phone Nirav Duenas DO Unavailable [phone] Nirav Duenas DO Primary Care Provider [phone] Marianne Davis MD Unavailable [phone] Encounter Details Date Type Department Care Team (Late st Contact Info) Description 11/05/2022 Orders Only [facility] [address] [place] [address] Provider, MD Wing [address] [place], [place] [address] Social History Tobacco Use Types Packs/Day Years Used Date Smoking Tobacco: Never Assessed Smokeless Tobacco: Never Sex and Gender Information Value Date Recorded [...] DERM [address] [place] [address] Charleen Hensley MD [address] [place] [address] 11/14/2024 9:30 AM EDT Office Visit [facility] [address] [place] [address] Nirav Duenas DO [address] [place] [address] documented as of this encounter Procedures Procedure Name Priority Date/Time Associated Diagnosis Comments SCANNED LABS Routine 11/05/2022 1:26 PM EDT SCANNED LABS Routine 11/05/2022 10:01 AM EDT documented in this encounter Results * SCANNED LABS (11/05/2022 1:26 PM EDT) us Historical Provider LAB CHG PERFORMABLES Edit ed Result - Final * SCANNED LABS (11/05/2022 10:01 AM EDT) us Historical Provider LAB CHG PERFORMABLES Edit ed Result - Final documented in this encounter Visit Diagnoses Not on filedocumented in this encounter Care Teams Hide Inspector Relationship Specialty Start Date End Date Nirav Duenas DO [address] [place] [address] PCP - [employer] 05/24/20 Nirav Duenas DO [address] [place] [address] PCP - General Internal Medicine 11/10/22 Marianne Davis MD [address] [facility] [address] [place] [address] Referring Physician Cardiology 05/12/23 documented as of this encounter
--- OUTSIDE RECORDS SUMMARY | 2024-10-13 07:17 | XMS_ITS | Encounter Summary ---
Author Organization [facility] Address [address] [facility] [place] [address] Care Team Providers Care User Interface Engineer Name Role Phone Nirav Duenas DO Unavailable [phone] Nirav Duenas DO Primary Care Provider [phone] Marianne Davis MD Unavailable [phone] Encounter Details Date Type Department Care Team (Late st Contact Info) Description 01/11/2024 Orders Only [facility] IM [address] [facility] [address] [place] [address] A, Unknown Practice [address] [place], [place] [address] Social History Tobacco Use Types Packs/Day Years [...] as of this encounter Functional Status * Audit-C Score Answer Date of Assessment Author 2 01/11/2024 9:55 AM EDT Fartun Eduardo MA * Question Answer Date of Assessment Author Q1: How often do you have a drink containing alcohol? 2-4 times a month 01/11/2024 9:55 AM EDT Fartun Eduardo MA Q2: How many drinks containing alcohol do you have on a typical day when you are drinking? 1 or 2 01/11/2024 9:55 AM EDT Fartun Eduardo MA Q3: How often do you have six or more drinks on one occasion? Never 01/11/2024 9:55 AM EDT Fartun Eduardo MA documented as of this encounter Plan of Treatment Upcoming Encounters Date Type Department Care Team (Late st Contact Info) Description 10/26/2024 9:35 AM EDT Office Visit [facility] [address] [place] [phone] Charleen Hensley MD [address] [place] [address] 11/14/2024 9:30 AM EDT Office Visit [facility] [address] [place] [address] Nirav Duenas DO [address] [place] [address] documented as of this encounter Procedures Procedure Name Priority Date/Time Associated Diagnosis Comments CT HEAD WO IV CONTRAST Routine 01/10/2024 8:30 AM EDT documented in this encounter Results * CT head wo IV contrast (01/10/2024 8:30 AM EDT) Anatomical Region Laterality Modality Head, Neck Computed Tomogra phy us Unknown Practice A IMG CT PROCEDURES Final Resul t documented in this encounter Visit Diagnoses Not on filedocumented in this encounter Care Teams User Interface Engineer Relationship Specialty Start Date End Date Nirav Duenas DO [address] [place] [address] PCP - [employer] 05/24/20 Nirav Duenas DO [address] [facility] [address] [place] [address] PCP - General Internal Medicine 11/10/22 Marianne Davis MD [address] [place] [address] Referring Physician Cardiology 05/12/23 documented as of this encounter
--- OUTSIDE RECORDS SUMMARY | 2024-10-13 07:17 | XMS_ITS | Clinical Summary ---
Author Organization [facility] Address [address] [place] [address] Care Team Providers Care Manager Demand Name Role Phone Nirav Duenas DO Unavailable [phone] Nirav Duenas DO Primary Care Provider [phone] Marianne Davis MD Unavailable [phone] Allergies Active Allergy Reactions Criticality Noted Date Comments Sulfa Antibiotics Hives 05/28/2023 Sulfanilamide Unknown 10/11/2022 Medications rivaroxaban (Xarelto) 20 MG tablet 1 (one) time each day at the same time Active calcitriol (Rocaltrol) 0.5 MCG capsule Take 0.5 mcg by mouth Daily Active metoprolol succinate XL (Toprol-XL) 50 MG 24 hr tablet Take 50 mg by mouth in the morning and 50 mg before bedtime. 07/13/19 24 Active atorvastatin (Lipitor) 20 MG tabletIndications: Mixed hyperlipidemia (CMS/HCC) TAKE 1 TABLET AT NIGHT 90 tablet 3 01/06/20 24 Active mirtazapine (Remeron) 15 MG tabletIndications: Current mild episode of major depressive disorder without prior episode (HCC) (CMS/HCC) TAKE 1 TABLET AT BEDTIME 90 tablet 3 02/15/20 24 Active lisinopril 20 MG tabletIndications: Primary hypertension (CMS/HCC) Take 1 tablet (20 mg) by mouth in the morning and 1 tablet (20 mg) before bedtime. 180 tablet 3 04/06/20 24 Active magnesium oxide (Mag-Ox) 400 MG tablet Take 400 mg by mouth in the morning and 400 mg in the evening. 01/13/20 24 025 Active denosumab (Xgeva) 120 MG/1.7ML injection Inject 120 mg under the skin every 30 (thirty) days Active cloNIDine (Catapres) 0.1 MG tabletIndications: Primary hypertension (CMS/HCC),PAF (paroxysmal atrial fibrillation) (CMS/HCC),Chest pain, unspecified type Take 1 tablet (0.1 mg) by mouth 2 (two) times a day as needed for high blood pressure 180 tablet 1 05/22/20 24 Active pancrelipase, Ble-Zgjl-Yvif, (Creon) 57005-[address] units capsuleIndications :Malignant neoplasm of prostate (CMS/HCC),Exocrine pancreatic insufficiency (CMS/HCC) TAKE 1 CAPSULE IN THE MORNING, 1 CAPSULE AT NOON AND 1 CAPSULE IN THE EVENING WITH MEALS 360 capsule 2 07/03/19 25 Active amLODIPine (Norvasc) 5 MG tabletIndications: Primary hypertension (CMS/HCC) Take 1 tablet (5 mg) by mouth Daily 90 tablet 3 08/05/19 25 Active metFORMIN (Glucophage) 500 MG tabletIndications: Type 2 diabetes mellitus with other specified complication, without long-term current use of insulin TAKE 1 TABLET IN THE EVENING WITH A MEAL 90 tablet 3 09/23/19 25 Active dicyclomine (Bentyl) 20 MG tabletIndications: Other irritable bowel syndrome Take 1 tablet (20 mg) by mouth 4 (four) times a day as needed (abdominal pain or cramps) 120 tablet 3 10/06/19 25 Active metFORMIN (Glucophage) 500 MG tabletIndications: Type 2 diabetes mellitus with other specified complication, without long-term current use of insulin TAKE 1 TABLET IN THE EVENING WITH A MEAL 90 tablet 3 09/01/19 24 025 Discontinued Active Problems Problem Noted Date Diagnosed Date Allergic sinusitis 05/10/2024 Frequent PVCs 10/08/2023 PAF (paroxysmal atrial fibrillation) 05/12/2023 Exocrine pancreatic insufficiency 05/12/2023 Diverticulosis 11/03/2022 Type 2 diabetes mellitus with other specified co mplication 11/03/2022 Basal cell carcinoma (BCC) of skin of left upper lip 10/11/2022 Basal cell carcinoma of back 10/11/2022 Basal cell carcinoma (BCC) of chin 10/11/2022 Basal cell carcinoma of forehead 10/11/2022 Basal cell carcinoma of left cheek 10/11/2022 BCC (basal cell carcinoma), scalp/neck 3 Stage 3a chronic kidney disease (HCC) 05/14/2021 Cardiac arrhythmia 09/29/2019 Hyperlipidemia, unspecified 11/05/2017 Anemia 11/04/2016 Depression 05/06/2016 HTN (hypertension) 05/02/2015 Prostate cancer metastatic to bone 05/02/2015 IBS (irritable bowel syndrome) 05/02/2015 Encounters Date Type Department Care Team Description 10/05/2024 Telephone [facility] [address] [place] [address] Lexx Santizo MA Med Refill 09/25/2024 Telephone [facility] [address] [place] [address] Nirav Duenas DO Medication Question 09/22/2024 Refill [facility] [address] [place] [address] Nirav Duenas DO Type 2 diabetes mellitus with other specified complication, without long-term current use of insulin 09/13/2024 10:45 AM EDT Office Visit [facility] DERM [address] [place] [address] Lizandro Talbert MD Encounter for removal of sutures 09/13/2024 Bamboo flowsheet [facility] [address] [place] [address] Lizandro Talbert MD 09/13/2024 Travel 09/04/2024 8:00 AM EDT Office Visit [facility] [address] [place] [address] Nirav Duenas DO PAF (paroxysmal atrial fibrillation) (CMS/HCC) (Primary Dx); Stage 3a chronic kidney disease (HCC) (CMS/HCC); Type 2 diabetes mellitus with other specified complication, without long-term current use of insulin; Mixed hyperlipidemia (CMS/HCC); Exocrine pancreatic insufficiency (CMS/HCC); Primary hypertension (CMS/HCC); Type 2 diabetes mellitus with diabetic chronic kidney disease (CMS/HCC); Secondary malignant neoplasm of bone (CMS/HCC) 09/04/2024 Results Follow-Up [facility] [address] [place] [address] Charleen Hensley MD 09/04/2024 Telephone [facility] [address] [place] [address] Cecilia Batista LPN Care Coordination 09/04/2024 Travel 08/30/2024 10:30 AM EDT Office Visit [facility] [address] [place] [address] Charleen Hensley MD Squamous cell carcinoma of skin of left upper limb, including shoulder (Primary Dx) 08/30/2024 Travel 08/25/2024 Clinisync Result Encounter [facility] External Department Unsolicited Provider, Generic External Data 08/24/2024 Travel 08/07/2024 Telephone [facility] [address] [place] [phone] [place] Xarelto Hold 08/04/2024 10:00 AM EDT Office Visit [facility] [address] [place] [address] Olga Morocho NP Primary hypertension (CMS/HCC) (Primary Dx) 08/04/2024 Travel 08/02/2024 Travel 08/01/2024 Telephone [facility] [address] [place] [address] [place], [place] Hypertension 07/26/2024 2:50 PM EST Office Visit [facility] [address] [place] [address] Charleen Hensley MD 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, including hip (Primary Dx) 07/26/2024 Bamboo flowsheet [facility] [address] [place] [address] Charleen Hensley MD 07/26/2024 Travel 07/24/2024 Telephone [facility] [address] [place] [address] Becca Wiggins LPN Results from Last 3 Months Immunizations Immunization Administration Dates Next Due Influenza, High Dose Seasona l, Preservative Free 03/12/2021,02/24/2020,03/01/2019,02/21,02/25/2018,03/16/2017,03/30/2016 ,03/22/2015 Influenza, High-dose Seasona l, Quadrivalent, Preservative Free 02/26/2021 Influenza, Seasonal, Quadriv alent, Adjuvanted 03/20/2023,03/10/2022,03/15/2020 Influenza, seasonal, intrade rmal, preservative free 05/02/2015 Moderna SARS-CoV-2 Booster Vaccination 1 Novel [id number], preservative-free 05/31/2009 Pneumococcal Conjugate PCV 13 05/24/2016, 014 Pneumococcal Polysaccharide PPSV23 05/24/2012, Zoster, Recombinant 03/11/2019,12/22/2018 Zoster, live 10/10/2012 Family History Medical History Relation Name Comments Heart disease Father Epifanio Heart disease Mother Silver Melanoma Neg Hx Relation Name Status Comments Daughter Alive Father Epifanio Mother Silver Social History Tobacco Use Types Packs/Day Years Used Date Smoking Tobacco: Former Cigarettes 0.3 3 0 06/12/1956 - 05/24/1959 Pipe Passive Smoke Exposure: Past Smokeless Tobacco: Never Tobacco Cessation:Counseling Given: Not Answered Alcohol Use Standard Drinks/Week Comments Yes 0 [...] on file Sexual Orientation Not on file Last Filed Vital Signs Vital Sign Reading Time Taken Comments Blood Pressure 138/72 09/04/2024 8:03 AM EDT Pulse 62 09/04/2024 8:03 AM EDT Temperature 36.7 C (98 F) 05/26/2023 10:41 AM EST Respiratory Rate 16 08/04/2024 10:06 AM EDT Oxygen Saturation 96% 09/04/2024 8:03 AM EDT Inhaled Oxygen Concentration - - Weight 76.7 kg (169 lb) 09/04/2024 8:03 AM EDT Height 175.3 cm (5' 9 ) 09/04/2024 8:03 AM EDT Body Mass Index 24.96 09/04/2024 8:03 AM EDT Plan of Treatment Upcoming Encounters Date Type Department Care Team (Late st Contact Info) Description 10/26/2024 9:35 AM EDT Office Visit [facility] [address] [place] [address] Charleen Hensley MD [address] [place], [place] [phone] 11/14/2024 9:30 AM EDT Office Visit [facility] [address] [place] [address] Nirav Duenas DO [address] [place] [address] Health Maintenance Due Date Last Done Comments CT Colonography 1938 FIT-DNA 1938 FIT 1938 FOBT 1940 Medicare Annual Wellness (AWV) 1940 Sigmoidoscopy 1940 Diabetes: Hemoglobin A1C 08/08/202405/10/2 024, 11/05/2022, 05/06/2022, Additional history exists Diabetes: Urine Protein Screening 10/31/2024 11/01/2023, 11/05/2021, 11/07/2020 Diabetes: Retinopathy Screening 03/16/2026 03/16/2024, 12/11/2021, 06/20/2018 Colonoscopy 12/24/2032 12/24/2022, 11/22, 11/28/2015 Colorectal Cancer Screening 12/24/2032 Pneumococcal Vaccine: 65+ Years Completed 05/24/2016, 12/14/2013, 05/24/2012, Additional history exists Influenza Vaccine Completed 03/25/2024, , 03/10/2022, Additional history exists Procedures Procedure Name Priority Date/Time Associated Diagnosis Comments SKIN REPAIR Routine 08/30/2024 10:27 AM EDT Squamous cell carcinoma of skin of left upper limb, including shoulder SKIN EXCISION Routine 08/30/2024 10:27 AM EDT Squamous cell carcinoma of skin of left upper limb, including shoulder DERMATOPATHOLOGY EXAM Routine 08/30/2024 12:00 AM EDT Squamous cell carcinoma of skin of left upper limb, including shoulder ALL TESTOSTERONE Routine 08/25/2024 8:07 AM EDT MHPT PSA, DIAGNOSTIC Routine 08/25/2024 8:07 AM EDT [facility] CMP (CMP) (FOR REMOTE [facility] USE) Routine 08/25/2024 8:07 AM EDT ALL CBC WITH AUTO DIFF Routine 8:07 AM EDT SKIN EXCISION Routine 07/26/2024 3:02 PM EST 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, including hip DERMATOPATHOLOGY EXAM Routine 07/26/2024 12:00 AM EST 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, including hip POCT GLYCOSYLATED HEMOGLOBIN (HGB A1C) Routine 05/10/2024 10:53 AM EST Type 2 diabetes mellitus with other specified complication, without long-term current use of insulin ([facility]) DIABETIC RETINOPATHY SCREENING - OU - BOTH EYES Routine 03/16/2024 9:30 AM EDT COLONOSCOPY Routine 12/24/2022 1:49 PM EDT MICROALBUMIN CREATININE RATIO, U Routine 11/05/2021 from Last 3 Months or Most Recently Relevant to Health Maintenance Results * Skin repair (08/30/2024 10:27 AM EDT) Narrative Danielle Leblanc MA - 08/30/2024 10:27 AM EDT Complexity: Intermediate Final length (cm): 5.3 Reason [...] uncontrollable bleeding, or complications. Dressing type: bandage Charleen Hensley MD DERM PROCEDURE ORDERABLES Fin al Result * Skin excision (08/30/2024 10:27 AM EDT) Narrative Danielle Leblanc MA - 08/30/2024 10:27 AM EDT Lesion length (cm): 1.2 Lesion width (cm): [...] 9.0 ml Estimated blood loss: 1.0 ml us Charleen Hensley MD DERM PROCEDURE ORDERABLES Fin al Result * Dermatopathology exam (08/30/2024 12:00 AM EDT) Only the most recent of2 resultswithin the time period is included. SPECIMEN TYPE ------ SPECIMEN: LEFT SHOULDER ------ [facility] ICD10 Code C44.621 [facility] PROTOCOL EXC - EXCISION AUROR A DIAGNOSTICS Final Diagnosis WOUND REPAIR REACTION WITH STROMAL INFLAMMATION-M ARGINS CLEAR IN TISSUE PLANES EXAMINED. COMMENT: This material was reviewed with [id number]. [facility] Gross Text 1.0x1.0cm scar 0.5cm from margin 4 blocks, (tips in 1) (4 in 2) (3 in 3) (2 in 4) (jg/shiva) (09/01/24) [facility] Microscopic Description Microscopic examination performed. [facility] CPT 73892*1 [facility] Skin Topography unknown / Unknown 08/30/2024 10:27 AM EDT Comment:Differential Diagnos is: SCC Check Margins: Yes Size of lesion: 1.2 x 1.1 cm Previous accession number: [id number] us Charleen Hensley MD LAB PATHOLOGY ORDERABLES Alie brandon Result [facility] * MHPT PSA, DIAGNOSTIC (08/25/2024 8:07 AM EDT) PROSTATE SPECIFIC ANTIGEN DX 0.33 <=4.00 ng/mL TB 08/25/2024 8:07 AM EDT 08/25/2024 8:14 AM EDT Narrative [facility] - 08/25/2024 1:35 PM EDT us Generic External Data Provider [facility] F inal Result [facility] * (ABNORMAL) [facility] CMP (CMP) (FOR REMOTE [facility] USE) (08/25/2024 8:07 AM EDT) SODIUM 146(H) 136 - 145 mmol/L [facility]H POTASSIUM 4.4 3.5 - 5.1 mmol/L [facility] CHLORIDE 109(H) 98 - 107 mmol/L TBH CARBON DIOXIDE 29.4 21.0 - 32.0 mmol/L TBH ANION GAP 12.0 TBH GLUCOSE 162(H) 74 - 106 mg/dL [facility] BLOOD UREA NITROGEN 18.0 7.0 - 18.0 mg/dL [facility] CREATININE 1.27 0.70 - 1.30 mg/dL TBH TBH EGFR-AF SPANISH >60 >=60 mL/min/1. 73m 2 TBH TBH EGFR-NON AF SPANISH 54(L) >=60 mL/min/1. 73m 2 TBH BUN CREATININE RATIO 14.2 TBH CALCIUM 8.6 8.5 - 10.1 mg/dL TBH BILIRUBIN TOTAL 0.5 0.2 - 1.0 mg/dL TBH ASPARTATE AMINO TRANSFERASE 19 15 - 37 U/L TBH ALANINE AMINOTRANSFERASE 14(L) 16 - 63 U/L TBH ALKALINE PHOSPHATASE 58 46 - 116 U/L TBH TOTAL PROTEIN 6.3(L) 6.4 - 8.2 g/dL TBH ALBUMIN LEVEL 3.2(L) 3.4 - 5.0 g/dL TBH GLOBULIN 3.1 g/dL TBH ALBUMIN GLOBULIN RATIO 1.0 TBH 08/25/2024 8:07 AM EDT 08/25/2024 8:14 AM EDT Narrative [facility] - 08/25/2024 12:58 PM EDT Generic External Data Provider [facility] F inal Result Performing Organization Address [facility] de Phone Number [facility] TB * (ABNORMAL) ALL TESTOSTERONE (08/25/2024 8:07 AM EDT) TESTOSTERONE <3(A) 264 - 916 ng/dL TBH Comment: Adult male reference interval is based on a population of healthy nonobese males (BMI <30) between 19 and 39 years old. John et.al. JCEM 2017,102;2180-6975. PMID: [id number]. Performed at: [facility] [address] [id number] Anger Control Counselor: Miguel Cullen PhD, Phone: [phone] 08/25/2024 8:07 AM EDT 08/25/2024 8:14 AM EDT Narrative [facility] - 08/26/2024 4:09 AM EDT Generic External Data Provider [facility] F inal Result Performing Organization Address [facility] de Phone Number [facility] TB * (ABNORMAL) ALL CBC WITH AUTO DIFF (08/25/2024 8:07 AM EDT) Pathologist [facility] TB WBC 7.6 4.0 - 11.0 10 3/uL TBH TBH RBC 4.06(L) 4.70 - 6.10 10 6/uL TBH TBH HGB 12.4(L) 14.0 - 18.0 g/dL TBH TBH HCT 37.9(L) 42.0 - 54.0 % TBH TBH MCV 93.3 80.0 - 94.0 fL TBH TBH MCH 30.5 25.9 - 34.0 pg TBH TBH MCHC 32.7 29.9 - 35.2 g/dL TBH TBH RDW 13.2 11.0 - 15.0 % TBH TBH PLT 227 150 - 450 10 3/uL TBH TBH MPV 9.8 9.5 - 13.5 fL TBH NEUTROPHILS PERCENT AUTO 56.8 43.0 - 75.0 % TBH LYMPHOCYTES PERCENT AUTO 30.7 20.5 - 60.0 % TBH MONOCYTES PERCENT AUTO 5.9 1.7 - 12.0 % TBH TBH EO % 5.0 0.9 - 7.0 % TBH BASOPHILS PERCENT AUTO 1.1 0.2 - 2.0 % TBH IMMATURE GRANULOCYTES PCT AUTO 0.5 0.0 - 0.5 % TBH NEUTROPHILS ABSOLUTE AUTO 4.3 1.4 - 6.5 10 3/uL TBH LYMPHOCYTES ABSOLUTE AUTO 2.3 1.2 - 3.8 10 3/uL TBH MONOCYTES ABSOLUTE AUTO 0.5 0.3 - 0.8 10 3/uL TBH TBH EO # 0.4 0.0 - 0.7 10 3/uL TBH BASOPHILS ABSOLUTE AUTO 0.1 0.0 - 0.1 10 3/uL TBH IMMATURE GRANULOCYTES ABS AUTO 0.04(H) 0.00 - 0.03 10 3/uL TBH 08/25/2024 8:07 AM EDT 08/25/2024 8:14 AM EDT Narrative TONY - 08/25/2024 8:19 AM EDT us Generic External Data Provider [facility] F inal Result [facility] TB * Skin excision (07/26/2024 3:02 PM EST) Narrative Isabella Rivera LPN - 07/26/2024 3:02 PM EST Lesion length (cm): 1.1 Lesion width (cm): [...] details: Amount of lidocaine used: 2.0 ml Charleen Hensley MD DERM PROCEDURE ORDERABLES Fin al Result * POCT glycosylated hemoglobin (Hb A1C) docked device (05/10/2024 10:53 AM EST) Hemoglobin A1C 7.6 Blood Venous blood specimen / Unknown 05/10/2024 10:53 AM EST Result [facility] Nirav Duenas DO POINT OF CARE TEST ENTER/TERESA T ORDERABLES Final Result * Diabetic Retinopathy Screening - OU - Both Eyes (03/16/2024 9:30 AM EDT) Anatomical Region Laterality Modality Head Other Result [facility] Unknown Practice A OPHTH PHOTOGRAPHY Final Resul t * Colonoscopy (12/24/2022 1:49 PM EDT) Anatomical Region Laterality Modality Endoscopy Unknown Practice A ENDOSCOPY PROCEDURE ORDERABLE S Final Result * MICROALBUMIN CREATININE RATIO, U (11/05/2021) MALB <1.3 <=30.0 [facility] URINE CREAT 114.03 20.00 - 300.00 [facility] MALB CR RATIO 11.4 0.0 - 29.9 [facility] MALB CR RATIO RANGE SEE BELOW [facility] Comment:NO MICROALBUMINURIA 0-29 MG/G CLINICAL MICROALBUMINURIA 30-300 MG/G MACROALBUMINURIA >300 MG/G PERFORMING LAB: see note [facility] Comment:[facility] - [address] [place], [place] [address] ,Ext. [phone] 11/05/2021 Nirav Duenas DO [facility] Final Result [facility] from Last 3 Months or Most Recently Relevant to Health Maintenance Insurance [employer]AGE Care Teams Manager Demand Relationship Specialty Start Date End Date Nirav Duenas DO [address] [place] [address] PCP - [employer] 05/24/20 Nirav Duenas DO [address] [place] [address] PCP - General Internal Medicine 11/10/22 Marianne Davis MD [address] [facility] [address] [place] [address] Referring Physician Cardiology 05/12/23
--- OUTSIDE RECORDS SUMMARY | 2024-10-13 07:17 | XMS_ITS | Encounter Summary ---
Author Organization [facility] Address [address] [facility] [place] [address] Care Team Providers Care Applications Architect Name Role Phone Nirav Duenas DO Unavailable [phone] Nirav Duenas DO Primary Care Provider [phone] Marianne Davis MD Unavailable [phone] Encounter Details Date Type Department Care Team (Late st Contact Info) Description 03/17/2024 Orders Only [facility] IM [address] [facility] [address] [place] [address] A, Unknown Practice [address] [place], [place] [phone] Social History Tobacco Use Types Packs/Day Years [...] [address] [place] [address] Charleen Hensley MD [address] [place] [address] 11/14/2024 9:30 AM EDT Office Visit [facility] [address] [place] [address] Nirav Duenas DO [address] [place] [address] documented as of this encounter Procedures Procedure Name Priority Date/Time Associated Diagnosis Comments DIABETIC RETINOPATHY SCREENING - OU - BOTH EYES Routine 03/16/2024 9:30 AM EDT documented in this encounter Results * Diabetic Retinopathy Screening - OU - Both Eyes (03/16/2024 9:30 AM EDT) Anatomical Region Laterality Modality Head Other us Unknown Practice A OPHTH PHOTOGRAPHY Final Resul t documented in this encounter Visit Diagnoses Not on filedocumented in this encounter Care Teams Applications Architect Relationship Specialty Start Date End Date Nirav Duenas DO [address] [place] [address] PCP - [employer] 05/24/20 Nirav Duenas DO [address] [place] [address] PCP - General Internal Medicine 11/10/22 Marianne Davis MD [address] [place] [address] Referring Physician Cardiology 05/12/23 documented as of this encounter
--- OUTSIDE RECORDS SUMMARY | 2024-10-13 07:17 | XMS_ITS | Encounter Summary ---
Author Organization [facility] Address [address] [place] [address] Care Team Providers Care Chief Quality Officer Name Role Phone Nirav Duenas DO Unavailable [phone] Nirav Duenas DO Primary Care Provider [phone] Marianne Davis MD Unavailable [phone] Reason for Visit * Reason Onset Date Comments Med Refill 10/05/2024 Encounter Details Date Type Department Care Team (Late st Contact Info) Description 10/05/2024 Telephone [facility] [address] [place] [address] Lexx Santizo MA Med Refill Social History Tobacco Use Types Packs/Day Years [...] on file documented as of this encounter Miscellaneous Notes * Telephone Encounter - Nirav Duenas DO - 10/05/2024 4:09 PM EDT Ref same as last, or probably 10 mg qid prn, #120/4 * Telephone Encounter - Lexx Santizo MA - 10/05/2024 1:27 PM EDT Patient called requesting dicyclomine 10 mg be sent to [facility]. This is no longer on his med list. He said he hasn't filled it in over a year, but he is having digestion issues. Please advise. documented in this encounter Plan of Treatment Upcoming Encounters Date Type Department Care Team (Late st Contact Info) Description 10/26/2024 9:35 AM EDT Office Visit [facility] [address] [place] [phone] Charleen Hensley MD [address] [place] [address] 11/14/2024 9:30 AM EDT Office Visit [facility] [address] [place] [phone] Nirav Duenas DO [address] [place] [address] documented as of this encounter Visit Diagnoses Diagnosis Other irritable bowel syndrome documented in this encounter Care Teams Chief Quality Officer Relationship Specialty Start Date End Date Nirav Duenas DO [address] [place] [address] PCP - [employer] 05/24/20 Nirav Duenas DO [address] [place] [address] PCP - General Internal Medicine 11/10/22 Marianne Davis MD [address] [facility] [address] [place] [address] Referring Physician Cardiology 05/12/23 documented as of this encounter
--- OUTSIDE RECORDS SUMMARY | 2024-10-13 07:17 | XMS_ITS | Encounter Summary ---
Author Organization [facility] Address [address] [place] [address] Care Team Providers Care Professor Of Sociology Name Role Phone Nirav Duenas DO Unavailable [phone] Nirav Duenas DO Primary Care Provider [phone] Marianne Davis MD Unavailable [phone] Encounter Details Date Type Department Care Team (Late Contact Info) Description 02/07/2024 Clinisync Result Encounter [facility] External Department Unsolicited [...] [address] [place] [phone] Charleen Hensley MD [address] [place] [address] 11/14/2024 9:30 AM EDT Office Visit [facility] IM [address] [place] [address] Nirav Duenas DO [address] [place] [address] documented as of this encounter Procedures Procedure Name Priority Date/Time Associated Diagnosis Comments NUCLEAR STRESS TEST EXERCISE (CARD) 02/07/2024 8:23 AM EDT documented in this encounter Results * NUCLEAR STRESS TEST EXERCISE (CARD) (02/07/2024 8:23 AM EDT) Anatomical Region Laterality Modality Radiographic Katey ging 02/07/2024 8:23 AM EDT Narrative 02/07/2024 4:47 PM EDT Start with exercise, may switch to alfonso Interpreted By: Clarissa Sanchez and Giannuzzi Michael STUDY: MYOCARDIAL PERFUSION STRESS TEST WITH EXERCISE Performing facility: [facility], [address] [place] [address], [address], [place] [address] [facility] Provider: Ashley Carvalho MD, FACC PCP: Dr. Trang Duenas Supervising provider: Marina Goldsmith MD INDICATION: Abnormal EKG; PVC Murmur HISTORY: Gender: M; Age: 83 y/o ; Height: HT 180.3 cm cm; Weight: WT 77.111 kg kg. Abnormal EKG; High Cholesterol; Diabetes; HTN; Arrhythmias; A-fib Quit smoking 34 years ago. COMPARISON: Previous nuclear testing completed [id number] at [facility]. ACCESSION NUMBER(S): [id number] ORDERING CLINICIAN: ASHLEY CARVALHO TECHNIQUE: ONE DAY protocol. Stress injection: Date:02-07-24, [...] Clarissa Sanchez 02/07/2024 4:47 PM Dictation workstation: [id number] Procedure Note Radiology, Radiologist, MD - 02/07/2024 Start with exercise, may switch to alfonso Interpreted By: Clarissa Sanchez and Giannuzzi Michael STUDY: MYOCARDIAL PERFUSION STRESS TEST WITH EXERCISE Performing facility: [facility], [address] [place] [address], [address], [place] [address] [facility] Provider: Ashley Carvalho MD, FACC PCP: Dr. Trang Duenas Supervising provider: Marina Goldsmith MD INDICATION: Abnormal EKG; PVC Murmur HISTORY: Gender: M; Age: 83 y/o ; Height: HT 180.3 cm cm; Weight: WT 77.111 kg kg. Abnormal EKG; High Cholesterol; Diabetes; HTN; Arrhythmias; A-fib Quit smoking 34 years ago. COMPARISON: Previous nuclear testing completed [id number] at [facility]. ACCESSION NUMBER(S): [id number] ORDERING CLINICIAN: ASHLEY CARVALHO TECHNIQUE: ONE DAY protocol. Stress injection: Date:02-07-24, [...] Clarissa Sanchez 02/07/2024 4:47 PM Dictation workstation: [id number] us Generic External Data Provider IMG XR PROCEDURES Final Result documented in this encounter Visit Diagnoses Not on filedocumented in this encounter Care Teams Professor Of Sociology Relationship Specialty Start Date End Date Nirav Duenas DO [address] [place] [address] PCP - [employer] 05/24/20 Nirav Duenas DO [address] [place] [address] PCP - General Internal Medicine 11/10/22 Marianne Davis MD [address] [facility] [address] [place] [address] Referring Physician Cardiology 05/12/23 documented as of this encounter
[2024-10-13 07:31] LABS: Basophils Absolute Auto 0.1 10^3/uL (0.0-0.1); Basophils Percent Auto 0.8 % (0.2-2.0); Eosinophils Absolute Auto 0.2 10^3/uL (0.0-0.7); Eosinophils Percent Auto 2.5 % (0.9-7.0); Hemoglobin 11.8 g/dL (14.0-18.0); Immature Granulocytes Abs Auto 0.04 10^3/uL (0.00-0.03); Immature Granulocytes Pct Auto 0.4 % (0.0-0.5); Lymphocytes Absolute Auto 2.9 10^3/uL (1.2-3.8); Lymphocytes Percent Auto 30.3 % (20.5-60.0); Mean Corpuscular HGB Conc 32.8 g/dL (29.9-35.2); Mean Corpuscular Hemoglobin 30.8 pg (25.9-34.0); Mean Platelet Volume 10.2 fL (9.5-13.5); Monocytes Absolute Auto 0.6 10^3/uL (0.3-0.8); Monocytes Percent Auto 5.7 % (1.7-12.0); Neutrophils Absolute Auto 5.8 10^3/uL (1.4-6.5); Neutrophils Percent Auto 60.3 % (43.0-75.0); Platelet Count 181 10^3/uL (150-450); Red Blood Count 3.83 10^6/uL (4.70-6.10); Red Cell Distribution Width 13.4 % (11.0-15.0); White Blood Count 9.7 10^3/uL (4.0-11.0)
[2024-10-13 07:46] LABS: Alanine Aminotransferase 29 U/L (16-63); Albumin Globulin Ratio 1.1; Albumin Level 3.2 g/dL (3.4-5.0); Alkaline Phosphatase 52 U/L (46-116); Anion Gap 12.2; Aspartate Amino Transferase 22 U/L (15-37); BUN Creatinine Ratio 14.9; Bilirubin Total 0.5 mg/dL (0.2-1.0); Calcium 8.4 mg/dL (8.5-10.1); Carbon Dioxide 28.6 mmol/L (21.0-32.0); Chloride 109 mmol/L (98-107); Estimated GFR (African America >60 (>=60 mL/min/1.73m^2); Estimated GFR (Non-African Ame >60 (>=60 mL/min/1.73m^2); Globulin 2.9 g/dL; Glucose 133 mg/dL (74-106); Potassium 3.8 mmol/L (3.5-5.1); Sodium 146 mmol/L (136-145); Total Protein 6.1 g/dL (6.4-8.2)
[2024-10-13 08:51] LABS: Prostate Specific Antigen Dx 0.63 ng/mL (<=4.00)
[2024-10-14 04:07] LABS: Testosterone <3 ng/dL (264-916)
== END 2024-10-13 07:13 | disposition home or self-care (01) ==
LOC: LAB 07:14
PROVIDERS: PCP Internal Medicine; Visit Provider Urology
DX: C61 Malignant neoplasm of prostate (principal)
CPT/HCPCS: 36415; 80053; 84153; 84403; 85025

== ENCOUNTER 2024-10-30 07:09 | Outpatient (OUT) | payer MEDICARE, SELFPAY ==
--- OUTSIDE RECORDS SUMMARY | 2024-10-30 07:16 | XMS_ITS | CCD ---
Author Organization [facility] Care Team Providers Care Programmer Numerical Control Name Role Phone Nirav Bello Primary Care Provider Ryan Negron Attending Provider [phone] Nirav Bello Unavailable Unavailable Unavailable DO Nirav Bello Primary Care Provider DO Juan Ventura Attending Provider Dr. Nirav Bello Abhilash Primary Care Unavai [...] Provider DO Nirav Bello Primary Care Provider [phone] NON STAFF Attending Provider Unavailable KHOURY, MISSY Referring Unavailable ACE, NIRAV A Primary Care Unavailable KHOURY, MISSY Referring Unavailable ACE, NIRAV A Primary Care Unavailable Ace DO Nirav A Unavailable Ace DO, Nirav A Primary Care Provider [phone] Marianne Davis MD Unavailable [phone] Nirav Bello DO Primary Care Provider [phone] Colin Thompson MD Attending Provider Miller Donald Admitting Unavailable Miller Donald Attending Unavailable Ace, Nirav Primary Care Unavailable Colin Thompson Admitting Unavailable Colin Thompson Attending Unavailable Ace, Nirav Primary Care Unavailable KHOURY, MISSY Attending Unavailable ACE, NIRAV A Primary Care Unavailable KHOURY, MISSY Referring Unavailable ACE, NIRAV A Primary Care Unavailable KHOURY, MISSY Attending Unavailable KHOURY, MISSY Referring Unavailable ACE, NIRAV A Primary Care Unavailable KHOURY, MISSY Attending Unavailable KHOURY, MISSY Referring Unavailable ACE, NIRVA A Primary Care Unavailable PETITTI, LAURA A Attending Unavailable PETITTI, LAURA A Attending Unavailable PETITTI, LAURA A Attending Unavailable OLGA DALEY Attending Unavailable PETITTI, LAURA A Attending Unavailable ACE, NIRAV A Attending Unavailable ACE, NIRAV A Referring Unavailable AAMIR TALBERT Attending Unavailable PETITTI, LAURA A Attending Unavailable ACE, NIRAV A Attending Unavailable ACE, NIRAV A Attending Unavailable ACE, NIRAV A Referring Unavailable PETITTI, LAURA A Attending Unavailable ACE, NIRAV A Attending Unavailable ACE, NIRAV A Referring Unavailable Unavailable Unavailable Unavailable Allergies Allergy Classification Reported Allergen(s) Allergy Type Date of Onset Reaction(s) Facility (4 sources) Sulfonamides (Antibiotic); Translations: [Sulfa Drugs] Allergy to drug (finding) [facility] 250 DO Work Phone: (15 sources) Sulfonamides (Antibiotic); Translations: [SULFA (SULFONAMIDE ANTIBIOTICS)] Allergy to substance 2 [facility] (1 source) Sulfonamides (Antibiotic) Drug allergy (disorder) [facility] (20 sources) Substance with sulfonamide structure and antibacterial mechanism of action (substance) Drug allergy 4 [facility] (11 sources) abiraterone; Translations: [ABIRATERONE] Drug Allergy 4 Other [facility] Repository (20 sources) Sulfanilamide Allergy to substance 3 Unknown [facility] Healthcare Medications Current Medications Medication Drug Class(es) Dates Sig (Normalized) Sig (Original) abiraterone acetate 250 mg oral tablet (4 sources) Cytochrome P450 17A1 Inhibitor Start: 10-15-2024 abiraterone (Zytiga) 250 MG chemo tablet 10/15/2024 Active take 4 tablets by mouth once aristides ly abiraterone (Zytiga) 250 MG chemo tablet Take 4 tablets by mouth Daily. Swallow whole. Do not eat 2 hrs before or 1 hr after. Active amLODIPine 5 mg oral tablet (13 sources) Dihydropyridine Calcium Channel Neeru Start: 08-01-2024 End: 10-02-2025 take 1 tablet by mouth once daily amLODIPine (Norvasc) 5 MG tablet Indications: Primary hypertension (CMS/HCC) Take 1 tablet (5 mg) by mouth Daily 90 tablet 3 08/04/2024 Active amylase 419180 unt / lipase 81617 unt / protease 26705 unt delayed release oral capsule (20 sources) Start: 07-03-2024 pancrelipase, Klp-Hwac-Tlnz, (Creon) 66267-87942 units capsule Indications: Malignant neoplasm of prostate (CMS/HCC) , Exocrine pancreatic insufficiency (CMS/HCC) TAKE 1 CAPSULE IN THE MORNING, 1 CAPSULE AT NOON AND 1 CAPSULE IN THE EVENING WITH MEALS 360 capsule 2 07/03/2024 Active Start: 01-17-2024 Creon 51290-29 000 units capsule Indications: Malignant neoplasm of prostate (CMS/HCC) , Exocrine pancreatic insufficiency (CMS/HCC) TAKE 1 CAPSULE IN THE MORNING, 1 CAPSULE AT NOON AND 1 CAPSULE IN THE EVENING WITH MEALS 300 capsule 1 01/17/2024 Active Start: 05-12-2023 pancrelipase, Uaj-Lcfn-Fpjo, (Creon) 41008-38399 units capsule Indications: Malignant neoplasm of prostate (CMS/HCC) , Exocrine pancreatic insufficiency (CMS/HCC) Take 1 capsule by mouth in the morning and 1 capsule at noon and 1 capsule in the evening. Take with meals. 270 capsule 1 05/12/2023 Active Start: 11-17-2022 take 1 capsule by mo uth three times daily kietqt-rpzvizui-ekkmcsb (Creon) 24,000-76,000 -120,000 unit capsule Take 1 capsule by mouth 3 times daily (morning, midday, late afternoon). 11/17/2022 Active Start: 11-17-2022 Creon 88299-04 000 UNIT 1 with each meal Orally [...] the skin every 30 (thirty) days Active dicyclomine hydrochloride 20 mg oral tablet (10 sources) Anticholinergic Start: 025 take 1 tablet by mouth four times daily as needed for pain dicyclomine (Bentyl) 20 MG tablet Indications: Other irritable bowel syndrome Take 1 tablet (20 mg) by mouth 4 (four) times a day as needed (abdominal pain or cramps) 120 tablet 3 10/05/2024 Active Start: 11-13-2020 End: 01-13-2024 take 1 capsule by mouth once daily dicyclomine (Bentyl) 10 mg capsule Take 1 capsule (10 mg) by mouth once daily. 11/13/2020 01/13/2024 Discontinued (Therapy completed) fluorouracil 50 mg/ml topical cream (20 sources) Nucleoside Metabolic Inhibitor Start: 10-26-2024 fluorouracil (Efudex ) 5 % cream Indications: Actinic keratosis Apply to directed areas on the face, and backs of hands twice a day x 14 days. Dispense 30 day supply but only use for 14 days 40 g 2 10/26/2024 Active Start: 10-26-2024 fluorouracil ( Efudex) 5 % cream Indications: Actinic keratosis Apply to directed areas on the face, and backs of hands twice a day x 14 days. Dispense 30 day supply but only use for 14 days 40 g 2 10/26/2024 Active Start: 04-26-2023 fluorouracil ( Efudex) 5 % cream Indications: Actinic keratosis Apply [...] sources) Angiotensin Converting Enzyme Inhibitor Start: 04-06-2024 End: 10-02-2025 take 1 tablet by mouth in the morning lisinopril 20 MG tablet Indications: Primary hypertension (CMS/HCC) Take 1 tablet (20 mg) by mouth in the morning and 1 tablet (20 mg) before bedtime. 180 tablet 3 04/06/2024 Active Start: 02-11-2021 End: 05-01-2025 take 2 [...] EVENING WITH A MEAL 90 tablet 3 09/22/2024 Active 24 hr metoprolol succinate 50 mg [...] tablet 3 02/15/2024 Active polyethylene glycol 3350 156407 mg / potassium chloride 2970 mg / sodium bicarbonate 6740 mg / sodium chloride 5860 mg / sodium sulfate 67600 mg powder for oral solution (2 sources) Osmotic Laxative Start: 11-17-2022 take 236 g by mouth once Golytely 236 GM as directed Orally once for 1 days Oct, Active predniSONE 5 mg oral tablet (20 sources) Start: 09-22-2024 take 1 tablet by mouth once daily at mealtime predniSONE (Deltasone) 5 MG tablet Take 5 mg by mouth Daily Take with food. 09/22/2024 Active Start: 11-05-2023 take 1 tablet by yifan th once daily predniSONE (Deltasone) 5 MG tablet [...] mouth see administration instructions. 0 Active Vit C,X-Mv-Qkaip-Lutein-Zeax an (Preservision Areds-2) 250-90-40-1 mg Capsule (4 sources) Start: 12-05-2021 Vit C,D-Dr-Afhbu-Lutein-Zeax an (Preservision Areds-2) 250-90-40-1 mg Capsule Active 1 TAB PO Every morning December 05, 2021 12:47pm Start: 12-05-2021 Vit C,E-Zn-Healthcare Translator vq-Rgfezr-Wbpxqi (Preservision Areds-2) 250-90-40-1 mg Capsule Active 1 [...] ascorbic acid 226 mg / beta carotene 13164 unt / cuprous oxide 0.8 mg / [...] capsule Discontinued 500 MG PO Q8H 21 7 [...] millicurie, intravenous, Once in imaging, Starting on 02/07/24 at 1009, For 1 dose, Administer 45 [...] Neoplasms of unspecified nature or uncertain behavior (6 sources) Neoplasm of skin; Translations: [Neoplasm of unspecified behavior of bone, soft tissue, and skin] 06-30-2024 Episodic Nonspecific chest pain (2 sources) Chest pain; Translations: [Chest pain, unspecified] 05-10-2024 Episodic Other aftercare (6 sources) Drug therapy finding; Translations: [Long-term (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 of anticoagulants] Episodic Other aftercare (3 sources) Other 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 treater helper (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; Translations: [OTH ALF CURRENT DRUG THERAPY] Onset: 11-06-2021 Episodic Other aftercare (4 sources) Removal of sutures done; Translations: [Encounter for removal of sutures] 07-14-2024 Episodic Other aftercare (2 sources) Treatment changed; Translations: [Other skilled nursing (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] Onset: 10-02-2024 10-02-2024 Episodic [...] (3 sources) Overweight; Translations: [Overweight] Episodic Other skin disorders (2 sources) Seborrheic keratosis; Translations: [Other seborrheic keratosis] 10-26-2024 Episodic Other skin disorders (2 sources) Lentiginosis; Translations: [Other melanin hyperpigmentation] 10-26-2024 Episodic Other skin disorders (2 sources) Actinic keratosis; Translations: [Actinic keratosis] 10-26-2024 Episodic Other upper respiratory disease (20 sources) [...] sources) Long-term current use of anticoagulant; Translations: [senior care (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 of anticoagulants] Onset: 01-13-2024 05-01-2024 Episodic Other aftercare (10 sources) Taking high risk medication; Translations: [Other skilled nursing (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] Onset: 01-13-2024 01-13-2024 Episodic Other aftercare (2 sources) senior care (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 of anticoagulants; Translations: [senior care (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 of anticoagulants] Onset: 01-13-2024 Episodic [...] Interpretation Reference Range Facility No Panel Informationon 10-26 [facility] Type of biopsy: tangential Informed consent: discussed [...] of lidocaine used: 2.0 cc [facility] Type of biopsy: tangential Informed [...] taken Amount of lidocaine used: 1.0 [facility] Type of biopsy: tangential Informed consent: discussed [...] taken Amount of lidocaine used: 3.0 cc [facility] [employer] [facility] [employer] No Panel Informationon 08-30 Lesion length (cm): [...] 9.0 ml Estimated blood loss: 1.0 ml [facility] Complexity: Intermediate Final length (cm): 5.3 [...] uncontrollable bleeding, or complications. Dressing type: bandage [facility] No Panel InformationOrdered By: Danielle Leblanc on 08-30-2024 [facility] Work Phone: ALL CBC WITH AUTO DIFFon BASOPHILS ABSOLUTE AUTO 0.1 [facility] Basophils/100 WBC (Bld) 1.1 % 0.2 - 2.0 % [facility] Eosinophils/100 WBC (Bld) 5 % 0.9 - 7.0 % [facility] Erythrocyte distribution width (RBC) [Ratio] 13.2 % 11.0 - 15.0 % [facility] Hematocrit (Bld) [Volume fraction] 37.9 % Low 42.0 - 54.0 % [facility] Hemoglobin (Bld) [Mass/Vol] 12.4 g/dL Low 14.0 - 18.0 g/dL [facility] IMMATURE GRANULOCYTES ABS AUTO 0.04 High [facility] Immature granulocytes/100 WBC (Bld) 0.5 % 0.0 - 0.5 % [facility] Interpretation and review of laboratory results Abnormal [facility] LYMPHOCYTES ABSOLUTE AUTO 2.3 [facility] Lymphocytes/100 WBC (Bld) 30.7 % 20.5 - 60.0 % [facility] MCH (RBC) [Entitic mass] 30.5 pg 25.9 - 34.0 pg [facility] MCHC (RBC) [Mass/Vol] 32.7 g/dL 29.9 - 35.2 g/dL [facility] MCV (RBC) [Entitic vol] 93.3 fL 80.0 - 94.0 fL [facility] MONOCYTES ABSOLUTE AUTO 0.5 [facility] Monocytes/100 WBC (Bld) 5.9 % 1.7 - 12.0 % [facility] NEUTROPHILS ABSOLUTE AUTO 4.3 [facility] Neutrophils/100 WBC (Bld) 56.8 % 43.0 - 75.0 % [facility] Platelet mean volume (Bld) [Entitic vol] 9.8 fL 9.5 - 13.5 fL [facility] EO # 0.4 [facility] PLT 227 [facility] RBC 4.06 Low [facility] WBC 7.6 [facility] Glucose Glucometer (BldC) [M ass/Vol]Ordered By: Colin Thompson on 08-09-2024 Glucose [Mass/Vol] Capillary blood glucose measurement by glucometer (mass/volume) [facility] Comment on above: Random Glucose Refer ence Range is dependent on time and content of last meal. Glucose of more than 200 mg/dL in a nonstressed, ambulatory subject supports the diagnosis of Diabetes Mellitus. Glucose Poct Glucometerson 0 08-09-2024 Commemt1 Glu2: Cleaned Meter Normal [facility] Comment on above: Result Comment: PERF ORMED BY: [facility] [address] [place] [address] PATHOLOGIST SUPERVISOR TELEPHONE ANSWERING SERVICE JOSE DOWNEY M.D. Performed By: #### G PRAMOD #### Point of Care testing , Glucose [Mass/Vol] 216 mg/dL Normal [facility] Comment on above: Result Comment: [facility] Glucose Reference Range is dependent on time and content of last meal. Glucose of more than 200 mg/dL in a nonstressed, ambulatory subject supports the diagnosis of Diabetes Mellitus. Performed By: #### G PRAMOD #### Point of Care testing , Joni 08-09-2024 L - -------- Specimen: [id number] Received: 08/09/24 Status: DEONDRE Joshua Num: [id number] Spec Type: Surgical Subm Dr: Colin Thompson MD Tissues: A Skin-Other than Cyst, tag, debridement or plastic repair (R LOWER LEG) Procedures: Lizett HERNANDEZ/Saurabh L4 -------- Age/ Patient Sex Location Account Attending Physician -------- Epifanio Walsh 84/M [place] [id number] Colin Thompson MD -------- SPEC NUM: [id number] RECD: 08/09/24 STATUS: DEONDRE LEWIS NUM: [id number] JARRET: 08/09/24- SUBM DR: Colin Thompson MD ENTERED: 08/09/[address]: RYAN TYPE: Surgical DEPT: S ENTERED BY: [id number] RECV BY: [id number] ORDERED: HE/8, Gross/Micro L4 ORDERED: HE8, Gross/Micro [...] cm from the 6?9?12:00 margin. -------- Specimen: [id number] Received: 08/09/24 Status: DEONDRE Lewis Num: [id number] Spec Type: Surgical Subm Dr: Colin Thompson MD Tissues: A Skin-Other than Cyst, tag, debridement or plastic repair (R LOWER LEG) Procedures: , Gross/Micro L4 -------- Patient: Epifanio Walsh [id number] (Continued) -------- Specimen: [id number] Received: 08/09/24 (Continued) Gross Description (Continued) Signed (signature on file) Sohail Urbina MD 08/10/24 1527 -------- Specimen: [id number] Received: 08/09/24 Status: DEONDRE Lewis Num: [id number] Spec Type: Surgical Subm Dr: Colin Thompson MD Tissues: A Skin-Other than Cyst, tag, debridement or plastic repair (R LOWER LEG) Procedures: HE/Angel, Gross/Micro L4 -------- Patient: WalshEpifanio Brendon [id number] (Continued) -------- Specimen: [id number] Received: 08/09/24 (Continued) Gross Description (Continued) The specimen is inked as follows: 12?3:00-Yellow 3?6:00-Green 6?9:00-Jefferson 9?12:00-Blue Deep-Black Serial sections reveal yellow-leonardo, glistening [...] serially sectioned 6:00 polar end (8, ns, [id number] A) Microscopic Description Microscopic examination is performed CPT Codes 89321 -------- -------- Specimen: [id number] Re (more content not included)... Normal [facility] No Panel InformationOrdered By: Colin Thompson on 08-09-2024 Bedside Glucose Comment Glu2: cleaned meter [facility] No Panel Informationon 07-26 Lesion length (cm): [...] details: Amount of lidocaine used: 2.0 ml [facility] [employer] No Panel Informationon 07-14 Type of biopsy: [...] taken Amount of lidocaine used: 1.0 cc [facility] [employer] [facility] Type of biopsy: tangential Informed consent: discussed [...] taken Amount of lidocaine used: 2.0 cc [facility] Type of biopsy: tangential Informed consent: discussed [...] of lidocaine used: 1.0 cc [facility] CMP (CMP) (FOR REMOTE C USE)on 07-06-2024 Albumin [Mass/Vol] 3.6 g/dL 3.4 - 5.0 g/dL [facility] ALBUMIN GLOBULIN RATIO 1.2 [facility] ALP [Catalytic activity/Vol] 48 U/L 46 - 116 U/L [facility] ALT [Catalytic activity/Vol] 16 U/L 16 - 63 U/L [facility] Anion gap [Moles/Vol] 11 mmol/L [facility] AST [Catalytic activity/Vol] 19 U/L 15 - 37 U/L [facility] Bilirubin [Mass/Vol] 0.6 mg/dL 0.2 - 1 .0 mg/dL [facility] Calcium [Mass/Vol] 8.8 mg/dL 8.5 - 10. 1 mg/dL [facility] Chloride [Moles/Vol] 106 mmol/L 98 - 10 7 mmol/L [facility] CO2 [Moles/Vol] 30 mmol/L 21.0 - 32.0 mmol/L [facility] Creatinine [Mass/Vol] 1.27 mg/dL 0.70 - 1.30 mg/dL [facility] GFR/1.73 sq M.predicted CKD-EPI (S/P/Bld) [Vol rate/Area] >60 >=60 mL/min/1.73m 2 [facility] Globulin (S) [Mass/Vol] 3.1 g/dL [facility] Glucose [Mass/Vol] 167 mg/dL High 74 - 106 mg/dL [facility] Interpretation and review of laboratory results Abnormal [facility] Potassium [Moles/Vol] 4 mmol/L 3.5 - 5.1 mmol/L [facility] Protein [Mass/Vol] 6.7 g/dL 6.4 - 8.2 g/dL [facility] Sodium [Moles/Vol] 143 mmol/L 136 - 145 mmol/L [facility] TBH EGFR-NON AF MARSHALLESE 54 Low >=60 mL/min/1.73m 2 [facility] Urea nitrogen [Mass/Vol] 24 mg/dL High 7.0 - 18.0 mg/dL [facility] Urea nitrogen/Creatinine [Mass ratio] 18.9 mg/mg [facility] No Panel Informationon 06-30 Complexity: Intermediate [...] or complications. Dressing type: bandage [facility] Lesion length (cm): 1.2 Lesion [...] 9.0 ml Estimated blood loss: <1.0 ml [facility] HbA1c (Bld) [Mass fraction]o n 05-10-2024 [facility] Laboratory - Hematology and Cell countson 05-10-2024 HbA1c (Bld) [Mass fraction] 7.6 % [facility] ALL CBC WITH AUTO DIFFon BASOPHILS ABSOLUTE AUTO 0.1 [facility] Basophils/100 WBC (Bld) 1.2 % 0.2 - 2.0 % [facility] Eosinophils/100 WBC (Bld) 4.3 % 0.9 - 7.0 % [facility] Erythrocyte distribution width (RBC) [Ratio] 13 % 11.0 - 15.0 % [facility] Hematocrit (Bld) [Volume fraction] 38.4 % Low 42.0 - 54.0 % [facility] Hemoglobin (Bld) [Mass/Vol] 12.4 g/dL Low 14.0 - 18.0 g/dL [facility] IMMATURE GRANULOCYTES ABS AUTO 0.03 [facility] Immature granulocytes/100 WBC (Bld) 0.5 % 0.0 - 0.5 % [facility] Interpretation and review of laboratory results Abnormal [facility] LYMPHOCYTES ABSOLUTE AUTO 2.1 [facility] Lymphocytes/100 WBC (Bld) 32.7 % 20.5 - 60.0 % [facility] MCH (RBC) [Entitic mass] 30.1 pg 25.9 - 34.0 pg [facility] MCHC (RBC) [Mass/Vol] 32.3 g/dL 29.9 - 35.2 g/dL [facility] MCV (RBC) [Entitic vol] 93.2 fL 80.0 - 94.0 fL [facility] MONOCYTES ABSOLUTE AUTO 0.5 [facility] Monocytes/100 WBC (Bld) 7 % 1.7 - 12.0 % [facility] NEUTROPHILS ABSOLUTE AUTO 3.5 [facility] Neutrophils/100 WBC (Bld) 54.3 % 43.0 - 75.0 % [facility] Platelet mean volume (Bld) [Entitic vol] 10.4 fL 9.5 - 13.5 fL [facility] TBH EO # 0.3 [facility] PLT 172 [facility] RBC 4.12 Low [facility] WBC 6.5 [facility] ALL CBC WITH AUTO DIFFon BASOPHILS ABSOLUTE AUTO 0.1 [facility] Basophils/100 WBC (Bld) 1.2 % 0.2 - 2.0 % [facility] Eosinophils/100 WBC (Bld) 5.3 % 0.9 - 7.0 % [facility] Erythrocyte distribution width (RBC) [Ratio] 13.1 % 11.0 - 15.0 % [facility] Hematocrit (Bld) [Volume fraction] 38.3 % Low 42.0 - 54.0 % [facility] Hemoglobin (Bld) [Mass/Vol] 12.6 g/dL Low 14.0 - 18.0 g/dL [facility] IMMATURE GRANULOCYTES ABS AUTO 0.04 High [facility] Immature granulocytes/100 WBC (Bld) 0.5 % 0.0 - 0.5 % [facility] Interpretation and review of laboratory results Abnormal [facility] LYMPHOCYTES ABSOLUTE AUTO 2.2 [facility] Lymphocytes/100 WBC (Bld) 27.3 % 20.5 - 60.0 % [facility] MCH (RBC) [Entitic mass] 30.7 pg 25.9 - 34.0 pg [facility] MCHC (RBC) [Mass/Vol] 32.9 g/dL 29.9 - 35.2 g/dL [facility] MCV (RBC) [Entitic vol] 93.2 fL 80.0 - 94.0 fL [facility] MONOCYTES ABSOLUTE AUTO 0.6 [facility] Monocytes/100 WBC (Bld) 7.3 % 1.7 - 12.0 % [facility] NEUTROPHILS ABSOLUTE AUTO 4.8 [facility] Neutrophils/100 WBC (Bld) 58.4 % 43.0 - 75.0 % [facility] Platelet mean volume (Bld) [Entitic vol] 10.6 fL 9.5 - 13.5 fL [facility] TBH EO # 0.4 [facility] PLT 193 [facility] RBC 4.11 Low [facility] WBC 8.1 [facility] TRANSTHORACIC ECHO (TTE) COM PLETEon 02-21-2024 TRANSTHORACIC ECHO (TTE) COMPLETE [address], [address], [place] [address] TRANSTHORACIC ECHOCARDIOGRAM REPORT Patient Name: EPIFANIO Kim Physician: [id number] Marina Goldsmith MD Study Date: 02/21/2024 Ordering Provider: [id number] MISSY KHOURY MRN/PID: [id number] Fellow: Nurse: Date of /Age: 1 1940 / 83 years Deodorizer Operator: Jyoti Gutiérrez RDCS, RVT Gender: M Additional Staff: Height: 180.34 cm Admit Date: Weight: 77.11 kg Admission Status: BSA / BMI: 1.97 m2 / 23.71 kg/m2 Department Location: [facility] Blood Pressure: 142 /84 mmHg Study Type: TRANSTHORACIC ECHO (TTE) COMPLETE Diagnosis/ICD: 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; Paroxysmal atrial fibrillation-I48.0 Indication: Diabetes, HTN, Hyperlipidemia, Murmur, Former Smoker, Prostate Cancer with Metastases, CKD-Stage III CPT Codes: Echo Complete w Full Doppler-18007 Study Detail: The following Echo studies were [...] mmHg PIEDV: 2.08 m/s PADP: 20.3 mmHg [id number] Marina Goldsmith MD Electronically signed on 02/21/2024 at 2:06:09 PM Final Normal [facility] US Heart TransthoracicOrdere d By: Marina Goldsmith on 02-21-2024 Aortic Valve Area by Continuity of Peak Velocity 4.33 cm2 [facility] Work Phone: Aortic Valve Area by Continuity of VTI 3.61 cm2 [facility] Work Phone: AV mn grad 2.0 mmHg [facility] Work Phone: AV pk grad 4.8 mmHg [facility] Work Phone: AV pk farheen 1.10 m/s [facility] Work Phone: LV A4C EF 68.1 [facility] Work Phone: LV EF 60 % [facility] Work Phone: LVIDd 4.95 cm [facility] Work Phone: LVOT diam 2.60 cm [facility] Work Phone: MV avg E/e' ratio 6.90 [facility] Work Phone: MV E/A ratio 0.58 [facility] Work Phone: RVSP 29.4 mmHg [facility] Work Phone: [facility] Work Phone: Heart [employer] [address], [place] [address] TRANSTHORACIC ECHOCARDIOGRAM REPORT Patient Name: EPIFANIO Kim Physician: [id number] Marina Goldsmith MD Study Date: 02/21/2024 Ordering Provider: [id number] MISSY KHOURY MRN/PID: [id number] Fellow: Nurse: Date of /Age: 1 1940 / 83 years Deodorizer Operator: Jyoti Gutiérrez RDCS, RVT Gender: M Additional Staff: Height: 180.34 cm Admit Date: Weight: 77.11 kg Admission Status: BSA / BMI: 1.97 m2 / 23.71 kg/m2 Department Location: [facility] Blood Pressure: 142 /84 mmHg Study Type: TRANSTHORACIC ECHO (TTE) COMPLETE Diagnosis/ICD: 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; Paroxysmal atrial fibrillation-I48.0 Indication: Diabetes, HTN, Hyperlipidemia, Murmur, Former Smoker, Prostate Cancer with Metastases, CKD-Stage III CPT Codes: Echo Complete w Full Doppler-[id number] Study Detail: The following Echo studies were [...] not included)... Marina Shaffer MD - 02/21/[address], Suite [facility], [place] [address] TRANSTHORACIC ECHOCARDIOGRAM REPORT Patient Name: EPIFANIO Kim Physician: [id number] Marina Goldsmith MD Study Date: 02/21/2024 Ordering Provider: [id number] MISSY KHOURY MRN/PID: [id number] Fellow: Nurse: Date of /Age: 1 1940 / 83 years Deodorizer Operator: Jyoti Gutiérrez RDCS, RVT Gender: M Additional Staff: Height: 180.34 cm Admit Date: Weight: 77.11 kg Admission Status: BSA / BMI: 1.97 m2 / 23.71 kg/m2 Department Location: [facility] Blood Pressure: 142 /84 mmHg Study Type: TRANSTHORACIC ECHO (TTE) COMPLETE Diagnosis/ICD: 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; Paroxysmal atrial fibrillation-I48.0 Indication: Diabetes, HTN, Hyperlipidemia, Murmur, Former Smoker, Prostate Cancer with Metastases, CKD-Stage III CPT Codes: Echo Complete w Full Doppler-[id number] Study Detail: The following Echo studies were [...] mmHg PIEDV: 2.08 m/s PADP: 20.3 mmHg [id number] Marina Goldsmith MD Electronically signed on 02/21/2024 at 2:06:09 PM Final [facility] Work Phone: AF Heart Perfusion W stress and W radionuclide [...] Clarissa Sanchez 02/07/2024 4:47 PM Dictation workstation: [id number] Interpreted By: Clarissa Sanchez, Lora Elaine STUDY: MYOCARDIAL PERFUSION STRESS TEST WITH EXERCISE Performing facility: [facility], [address] [place] [address], [address], [place] [address] [facility] Provider: Missy Khoury MD, FACC PCP: Dr. Trang Bello Supervising provider: Marina Goldsmith MD INDICATION: Abnormal EKG; PVC Murmur HISTORY: Gender: M; Age: 83 y/o ; Height: HT 180.3 cm cm; Weight: WT 77.111 kg kg. Abnormal EKG; High Cholesterol; Diabetes; HTN; Arrhythmias; A-fib Quit smoking 34 years ago. COMPARISON: Previous nuclear testing completed at [facility]. ACCESSION NUMBER(S): [id number] ORDERING CLINICIAN: MISSY KHOURY TECHNIQUE: ONE DAY [...] TEST WITH EXERCISE Performing facility: [facility], [address] [place] [address], [address], [place] [address] [facility] Provider: [facility] PCP: Dr. Trang Bello Supervising provider: Marina Goldsmith MD INDICATION: Abnormal EKG; PVC Murmur HISTORY: Gender: M; Age: 83 y/o ; Height: HT 180.3 cm cm; Weight: WT 77.111 kg kg. Abnormal EKG; High Cholesterol; Diabetes; HTN; Arrhythmias; A-fib Quit smoking 34 years ago. COMPARISON: Previous nuclear testing completed [id number] at [facility]. ACCESSION NUMBER(S): [id number] ORDERING CLINICIAN: MISSY KHOURY TECHNIQUE: ONE DAY [...] Clarissa Sanchez 02/07/2024 4:47 PM Dictation workstation: [id number] [facility] Work Phone: Radiology Study observation (narrative) [facility] Work Phone: NM Heart Perfusion W stress and W radionuclide IVOrdered By: Clarissa Sanchez on 02-07-2024 [facility] Work Phone: NUCLEAR STRESS TESTon 2023 NUCLEAR STRESS TEST Interpreted By: Clarissa Sanchez and Giannuzzi Michael STUDY: MYOCARDIAL PERFUSION STRESS TEST WITH EXERCISE Performing facility: [facility], [address] [place] [address], [address], [place] [address] [facility] Provider: Missy Khoury MD, FACC PCP: Dr. Trang Bello Supervising provider: Marina Goldsmith MD INDICATION: Abnormal EKG; PVC Murmur HISTORY: Gender: M; Age: 83 y/o ; Height: HT 180.3 cm cm; Weight: WT 77.111 kg kg. Abnormal EKG; High Cholesterol; Diabetes; HTN; Arrhythmias; A-fib Quit smoking 34 years ago. COMPARISON: Previous nuclear testing completed at [facility]. ACCESSION NUMBER(S): [id number] ORDERING CLINICIAN: MISSY KHOURY TECHNIQUE: ONE DAY [...] Clarissa Sanchez 02/07/2024 4:47 PM Dictation workstation: [id number] [facility] Comment on above: Order Comment: Start with exercise, may switch to alfonso ALL BASIC METABOLIC PANELon 02-03-2024 Anion gap [Moles/Vol] 11.7 mmol/L NO [facility] Calcium [Mass/Vol] 8.3 mg/dL Low 8.5 - 10. 1 mg/dL [facility] Chloride [Moles/Vol] 107 mmol/L 98 - 10 7 mmol/L [facility] CO2 [Moles/Vol] 28.3 mmol/L 21.0 - 32.0 mmol/L [facility] Creatinine [Mass/Vol] 1.11 mg/dL 0.70 - 1.30 mg/dL [facility] GFR/1.73 sq M.predicted CKD-EPI (S/P/Bld) [Vol rate/Area] >60 60 - PINF [facility] Glucose [Mass/Vol] 164 mg/dL High 74 - 106 mg/dL [facility] Interpretation and review of laboratory results Abnormal [facility] Potassium [Moles/Vol] 4.0 mmol/L 3.5 - 5.1 mmol/L [facility] Sodium [Moles/Vol] 143 mmol/L 136 - 145 mmol/L [facility] TBH EGFR-NON AF MARSHALLESE >60 60 - PINF [facility] Urea nitrogen [Mass/Vol] 16.0 mg/dL 7.0 - 18.0 mg/dL [facility] Urea nitrogen/Creatinine [Mass ratio] 14.4 mg/mg [facility] PET psma initial tx [id number] 09-13-2023 PET psma initial tx -[facility] [place] [address] Nuclear Medicine Report Signed Patient: Epifanio Walsh MR#: [id number] : 1940 Acct:[id number] Age/Sex: 83 / M ADM Date: 09/13/23 [facility]: [facility]: SYLWIA STAFF Copies to: NON [...] M.D.09/13/2023 3:20 PM Dictation Location: [place] [address] Transcribed By: [facility] 09/13/23 1520 Dictated By: Jordan Story II, MD 09/13/23 1515 Signed By: 09/13/23 1520 Normal [facility] ECG 12 Leadon 07-13-2023 Sinus rhythm with frequent PVCs Otherwise normal EKG QTc 444 ms [facility] Work Phone: C reactive protein [Mass/vol ume] in Serum or PlasmaOrdered By: Jj Garcia on 11-26-2022 CRP [Mass/Vol] < 0.5 mg/dL 0.0-0.5 [facility] Creatinine [Mass/volume] in Serum or PlasmaOrdered By: Nirav Bello on 11-26-2022 Creatinine [Mass/Vol] 1.55 mg/dL 0.70-1.30 [facility] Erythrocyte sedimentation ra te by Photometric methodOrdered By: Jj Garcia on 11-26-2022 ESR Photometric method (Bld) [Velocity] 18 mm/hr 0- [facility] No Panel InformationOrdered By: Nirav Bello on 11-26-2022 Estimated GFR (CKD-EPI) 43.863 mL/Min [facility] Pharmacy Creatinine Clearance (Chem N/A [facility] Thyrotropin [Units/volume] i n Serum or PlasmaOrdered By: Jj Garcia on 11-26-2022 TSH Qn 1.23 m[IU]/L 0.45-5.33 [facility] Urea nitrogen [Mass/volume] in Serum or PlasmaOrdered By: Nirav Bello on 11-26-2022 Urea nitrogen [Mass/Vol] 31 mg/dL 7-25 [facility] PANCREATIC ELASTASE FECALon 09-08-2022 Pancreatic Elastase, Fecal 86 ug Elast./g Critically low >200 [facility] Comment on above: Result Comment: Re sults verified by repeat testing Severe Pancreatic Insufficiency: <100 Moderate Pancreatic Insufficiency: 100 - 200 Normal: >200 Performed By: #### L IPID, TSH, CMP #### [facility] [address] [place] [address] [address] Leesa Urbina CELIAC ANTIBODIES PROFILEon 09-04-2022 Deamidated Gliadin Abs, IgA 8 units Normal 0-19 [facility] Comment on above: Result Comment: Nega tive 0 - 19 Weak Positive 20 - 30 Moderate to Strong Positive >30 Performed By: #### C ELIACP #### [facility] [address] [place] [address] Dr. Leesa Urbina Deamidated Gliadin Abs, IgG 4 units Normal 0-19 [facility] Comment on above: Result Comment: Nega tive 0 - 19 Weak Positive 20 - 30 Moderate to Strong Positive >30 Performed By: #### C ELIACP #### [facility] [address] [place] [address] Dr. Leesa Urbina Endomysial Antibody IgA Negative Normal Negative [facility] Comment on above: Performed By: #### C ELIACP #### [facility] [address] [place] [address] Dr. Leesa Urbina Immunoglobulin A, Qn, Serum 143 mg/dL Normal 61-437 [facility] Comment on above: Performed By: #### C ELIACP #### [facility] [address] [place] [address] Dr. Leesa Urbina t-Transglutaminase (tTG) IgA <2 Normal 0-3 [facility] Comment on above: Result Comment: Nega tive 0 - 3 Weak Positive 4 - 10 Positive >10 . Tissue Transglutaminase (tTG) has been identified as the endomysial antigen. Studies have demonstr- ated that endomysial IgA antibodies have over 99% specificity for gluten sensitive enteropathy. Performed By: #### C ELIACP #### [facility] [address] [place] [address] Dr. Leesa Urbina t-Transglutaminase (tTG) IgG 6 U/mL Critically high 0-5 [facility] Comment on above: Result Comment: Nega tive 0 - 5 Weak Positive 6 - 9 Positive >9 Performed By: #### C ELIACP #### [facility] [address] [place] [address] Dr. Leesa Urbina CBC AUTO DIFFon 09-03-2022 BASO # 0.1 103/ul Normal 0.0-0.1 [facility] Comment on above: Performed By: #### L IPID, TSH, CMP #### [facility] [address] [place] [address] Dr. Leesa Urbina Basophils/100 WBC (Bld) 1.1 % Normal 0.2-2.0 [facility] Comment on above: Performed By: #### L IPID, TSH, CMP #### [facility] [address] [place] [address] Dr. Leesa Urbina EO # 0.6 103/ul Normal 0.0-0.7 [facility] Comment on above: Performed By: #### L IPID, TSH, CMP #### [facility] [address] [place] [address] Dr. Leesa Urbina Eosinophils/100 WBC (Bld) 7.9 % Critically high 0.9-7.0 [facility] Comment on above: Performed By: #### L IPID, TSH, CMP #### [facility] [address] [place] [address] Dr. Leesa Urbina Erythrocyte distribution width (RBC) [Ratio] 13.6 % Normal 11.0-15.0 [facility] Comment on above: Performed By: #### L IPID, TSH, CMP #### [facility] [address] [place] [address] Dr. Leesa Urbina Hematocrit (Bld) [Volume fraction] 34.4 % Critically low 42.0-54.0 [facility] Comment on above: Performed By: #### L IPID, TSH, CMP #### [facility] [address] [place] [address] Dr. Leesa Urbina Hemoglobin (Bld) [Mass/Vol] 11.4 g/dL Critically low 14.0-18.0 [facility] Comment on above: Performed By: #### L IPID, TSH, CMP #### [facility] [address] [place] [address] Dr. Leesa Urbina IG # 0.02 10e3/ul Normal 0.00-0.03 [facility] Comment on above: Performed By: #### L IPID, TSH, CMP #### [facility] [address] [place] [address] Dr. Leesa Urbina IG % 0.3 % Normal 0.0-0.5 [facility] Comment on above: Performed By: #### L IPID, TSH, CMP #### [facility] [address] [place] [address] Dr. Leesa Urbina LYMPH # 2.1 103/ul Normal 1.2-3.8 [facility] Comment on above: Performed By: #### L IPID, TSH, CMP #### [facility] [address] [place] [address] Dr. Leesa Urbina Lymphocytes/100 WBC (Bld) 28.1 % Normal 20.5-60.0 [facility] Comment on above: Performed By: #### L IPID, TSH, CMP #### [facility] [address] [place] [address] Dr. Leesa Urbina MANUAL DIFF REQ NO Normal [facility] Comment on above: Performed By: #### L IPID, TSH, CMP #### [facility] [address] [place] [address] Dr. Leesa Urbina MCH (RBC) [Entitic mass] 31.1 pg Normal 25.9-34.0 [facility] Comment on above: Performed By: #### L IPID, TSH, CMP #### [facility] [address] [place] [address] Dr. Leesa Urbina MCHC (RBC) [Mass/Vol] 33.1 g/dL Normal 29.9-35.2 [facility] Comment on above: Performed By: #### L IPID, TSH, CMP #### [facility] [address] [place] [address] Dr. Leesa Urbina MCV (RBC) [Entitic vol] 93.7 fL Normal 80.0-94.0 [facility] Comment on above: Performed By: #### L IPID, TSH, CMP #### [facility] [address] [place] [address] Dr. Leesa Urbina MONO # 0.4 103/ul Normal 0.3-0.8 [facility] Comment on above: Performed By: #### L IPID, TSH, CMP #### [facility] [address] [place] [address] Dr. Leesa Urbina Monocytes/100 WBC (Bld) 6.0 % Normal 1.7-12.0 [facility] Comment on above: Performed By: #### L IPID, TSH, CMP #### [facility] [address] [place] [address] Dr. Leesa Urbina NEUT # 4.2 103/ul Normal 1.4-6.5 [facility] Comment on above: Performed By: #### L IPID, TSH, CMP #### [facility] [address] [place] [address] [address] Leesa Urbina Neutrophils/100 WBC (Bld) 56.6 % Normal 43.0-75.0 [facility] Comment on above: Performed By: #### L IPID, TSH, CMP #### [facility] [address] [place] [address] Dr. Leesa Urbina Platelet mean volume (Bld) [Entitic vol] 10.1 fL Normal 9.5-13.5 [facility] Comment on above: Performed By: #### L IPID, TSH, CMP #### [facility] [address] [place] [address] Dr. Leesa Urbina PLT 195 103/ul Normal 150-450 [facility] Comment on above: Performed By: #### L IPID, TSH, CMP #### [facility] [address] [place] [address] Dr. Leesa Urbina RBC 3.67 106/ul Critically low 4.70-6.10 [facility] Comment on above: Performed By: #### L IPID, TSH, CMP #### [facility] [address] [place] [address] Dr. Leesa Urbina WBC 7.3 103/ul Normal 4.0-11.0 [facility] Comment on above: Performed By: #### L IPID, TSH, CMP #### [facility] [address] [place] [address] Dr. Leesa Urbina FERRITINon 09-03-2022 Ferritin [Mass/Vol] 44.0 ng/mL Normal 26.0-388.0 [facility] Comment on above: Performed By: #### F ERR, FETIBC #### [facility] [address] [place] [address] Dr. Leesa Urbina IRON AND TIBCon 09-03-2022 % SATURATION 23.5 % Normal [facility] Comment on above: Performed By: #### F ERR, FETIBC #### [facility] [address] [place], [place] [address] Dr. Leesa Urbina Iron [Mass/Vol] 69.0 ug/dL Normal 65.0-175.0 [facility] Comment on above: Performed By: #### F ERR, FETIBC #### [facility] [address] [place], [place] [address] Dr. Leesa Urbina TIBC DIRECT 294.0 ug/dL Normal 250.0-450.0 [facility] Comment on above: Performed By: #### F ERR, FETIBC #### [facility] [address] [place], [place] [address] Dr. Leesa Urbina Office Visit (Cardiology)on 07-14-2022 Follow-up visit Diagnoses/Problems Assessed Anticoagulated (V58.61) (Z79.01) Benign essential hypertension (401.1) (I10) Hyperlipidemia (272.4) (E78.5) Paroxysmal atrial fibrillation (427.31) (I48.0) Diabetes mellitus (250.00) (E11.9) Body mass index (BMI) of 24.0 to 24.9 in adult (V85.1) (Z68.24) Never a smoker Orders SocHx: Never a smoker Tobacco Use Screening; Status:Complete; Done: [id number] Patient Instructions Please bring all medicines, vitamins, [...] negative for complaint. Vitals Vital Signs Recorded: [id number] 09:08AM Heart Rate68, L Radial [id number], LUE, Sitting Dqivtttwt37, LUE, Sitting Height5 ft 11 in Cqqqdm707 lb BMI Jbqhdkoavv72.13 kg/m2 BSA Calculated1.98 Tobacco Useb) No PHQ-2 [...] Jul 14 2022 10:20AM EST (Author) Normal [facility] Tobacco Screening.on 023 Adult depression screening assessment No [facility] y 250 DO Work Phone: Fall risk assessment a) No falls within the last year formerly [facility] y 250 DO Work Phone: Tobacco use status [facility] b) No [facility] y 250 DO Work Phone: CBC AUTO DIFFon 05-06-2022 BASO # 0.1 103/ul Normal 0.0-0.1 [facility] Comment on above: Performed By: #### C BC #### [facility] [address] [place] [address] Dr. Leesa Urbina Basophils/100 WBC (Bld) 1.4 % Normal 0.2-2.0 [facility] Comment on above: Performed By: #### C BC #### [facility] [address] [place] [address] Dr. Leesa Urbina EO # 0.4 103/ul Normal 0.0-0.7 [facility] Comment on above: Performed By: #### C BC #### [facility] [address] [place] [address] Dr. Leesa Urbina Eosinophils/100 WBC (Bld) 5.4 % Normal 0.9-7.0 [facility] Comment on above: Performed By: #### C BC #### [facility] [address] [place] [address] Dr. Leesa Urbina Erythrocyte distribution width (RBC) [Ratio] 13.3 % Normal 11.0-15.0 [facility] Comment on above: Performed By: #### C BC #### [facility] [address] [place] [address] Dr. Leesa Urbina Hematocrit (Bld) [Volume fraction] 35.8 % Critically low 42.0-54.0 [facility] Comment on above: Performed By: #### C BC #### [facility] [address] [place] [address] Dr. Leesa Urbina Hemoglobin (Bld) [Mass/Vol] 12.0 g/dL Critically low 14.0-18.0 [facility] Comment on above: Performed By: #### C BC #### [facility] [address] [place] [address] Dr. Leesa Urbina IG # 0.01 10e3/ul Normal 0.00-0.03 [facility] Comment on above: Performed By: #### C BC #### [facility] [address] [place] [address] Dr. Leesa Urbina IG % 0.2 % Normal 0.0-0.5 [facility] Comment on above: Performed By: #### C BC #### [facility] [address] [place] [address] Dr. Leesa Urbina LYMPH # 1.7 103/ul Normal 1.2-3.8 [facility] Comment on above: Performed By: #### C BC #### [facility] [address] [place] [address] Dr. Leesa Urbina Lymphocytes/100 WBC (Bld) 26.1 % Normal 20.5-60.0 [facility] Comment on above: Performed By: #### C BC #### [facility] [address] [place] [address] Dr. Leesa Urbina MANUAL DIFF REQ NO Normal [facility] Comment on above: Performed By: #### C BC #### [facility] [address] [place] [address] Dr. Leesa Urbina MCH (RBC) [Entitic mass] 31.0 pg Normal 25.9-34.0 [facility] Comment on above: Performed By: #### C BC #### [facility] [address] [place] [address] Dr. Leesa Urbina MCHC (RBC) [Mass/Vol] 33.5 g/dL Normal 29.9-35.2 [facility] Comment on above: Performed By: #### C BC #### [facility] [address] [place] [address] Dr. Leesa Urbina MCV (RBC) [Entitic vol] 92.5 fL Normal 80.0-94.0 [facility] Comment on above: Performed By: #### C BC #### [facility] [address] [place] [address] Dr. Leesa Urbina MONO # 0.4 103/ul Normal 0.3-0.8 [facility] Comment on above: Performed By: #### C BC #### [facility] [address] [place] [address] Dr. Leesa Urbina Monocytes/100 WBC (Bld) 6.5 % Normal 1.7-12.0 [facility] Comment on above: Performed By: #### C BC #### [facility] [address] [place] [address] Dr. Leesa Urbina NEUT # 4.0 103/ul Normal 1.4-6.5 [facility] Comment on above: Performed By: #### C BC #### [facility] [address] [place] [address] Dr. Leesa Urbina Neutrophils/100 WBC (Bld) 60.4 % Normal 43.0-75.0 [facility] Comment on above: Performed By: #### C BC #### [facility] [address] [place] [address] Dr. Leesa Urbina Platelet mean volume (Bld) [Entitic vol] 10.6 fL Normal 9.5-13.5 [facility] Comment on above: Performed By: #### C BC #### [facility] [address] [place] [address] Dr. Leesa Urbina PLT 185 103/ul Normal 150-450 [facility] Comment on above: Performed By: #### C BC #### [facility] [address] [place] [address] [address] Leesa Urbina RBC 3.87 106/ul Critically low 4.70-6.10 [facility] Comment on above: Performed By: #### C BC #### [facility] [address] [place] [address] Dr. Leesa Urbina WBC 6.6 103/ul Normal 4.0-11.0 [facility] Comment on above: Performed By: #### C BC #### [facility] [address] [place] [address] Dr. Leesa Urbina GLYCOHEMOGLOBIN A1Con 2021 ADA RECOMMENDATION SEE BELOW Normal [facility] Comment on above: Result Comment: ADA RECOMMENDED LIMIT 4.0 - 6.0 ADA THERAPEUTIC TARGET < 7.0 ACTION SUGGESTED > 7.0 Performed By: #### A 1C #### [facility] [address] [place] [address] Dr. Leesa Urbina Glucose [Mass/Vol] 151 mg/dL Normal [facility] Comment on above: Performed By: #### A 1C #### [facility] [address] [place] [address] Dr. Leesa Urbina HbA1c (Bld) [Mass fraction] 6.9 % Critically high 4.5-6.2 [facility] Comment on above: Performed By: #### A 1C #### [facility] [address] [place] [address] Dr. Leesa Urbina LIPID PROFILEon 05-06-2022 CHOL-HDL RATIO NORM SEE BELOW Normal [facility] Comment on above: Result Comment: 3.3 - 4.4 LOW RISK 4.4 - 7.1 AVERAGE RISK 7.1 - 11.0 MODERATE RISK >11.0 HIGH RISK Performed By: #### L IPID, TSH, CMP #### [facility] [address] [place] [address] Dr. Leesa Urbina Cholesterol [Mass/Vol] 136 mg/dL Normal <=200 [facility] Comment on above: Performed By: #### L IPID, TSH, CMP #### [facility] [address] [place] [address] Dr. Leesa Urbina Cholesterol in HDL [Mass/Vol] 62 mg/dL Critically high 40-60 [facility] Comment on above: Performed By: #### L IPID, TSH, CMP #### [facility] [address] [place] [address] Dr. Leesa Urbina Cholesterol in LDL [Mass/Vol] 53.0 mg/dL Normal [facility] Comment on above: Performed By: #### L IPID, TSH, CMP #### [facility] [address] [place] [address] Dr. Leesa Urbina Cholesterol.total/Kandy sterol in HDL [Mass ratio] 2.2 {ratio} Normal [facility] Comment on above: Performed By: #### L IPID, TSH, CMP #### [facility] [address] [place] [address] Dr. Leesa Urbina HDL NORMAL > or = 60 mg/dl - LO W CARDIOVASCULAR RISK <40 mg/dl - HIGH CARDIOVASCULAR RISK Normal [facility] Comment on above: Performed By: #### L IPID, TSH, CMP #### [facility] [address] [place] [address] Dr. Leesa Urbina LDL CALC NORMAL SEE BELOW Normal [facility] Comment on above: Result Comment: <100 mg/dl OPTIMAL 100 - 129 mg/dl NEAR OR ABOVE OPTIMAL 130 - 159 mg/dl BORDERLINE HIGH 160 - 189 mg/dl HIGH >190 mg/dl VERY HIGH Performed By: #### L IPID, TSH, CMP #### [facility] [address] [place] [address] Dr. Leesa Urbina Triglyceride [Mass/Vol] 105 mg/dL Normal <=150 [facility] Comment on above: Performed By: #### L IPID, TSH, CMP #### [facility] [address] [address] [address] Leesa Urbina VLDL CALC 21.0 mg/dL Normal [facility] Comment on above: Performed By: #### L IPID, TSH, CMP #### [facility] [address] [address] [address] Leesa Urbina PROF 14(COMP METB)on 022 Albumin [Mass/Vol] 3.4 g/dL Normal 3.4-5.[address] [facility] Comment on above: Performed By: #### L IPID, TSH, CMP #### [facility] [address] [place] [address] Dr. Leesa Urbina Albumin/Globulin [Mass ratio] 1.1 {ratio} Normal [facility] Comment on above: Performed By: #### L IPID, TSH, CMP #### [facility] [address] [place] [address] Dr. Leesa Urbina ALP [Catalytic activity/Vol] 77 U/L Normal 46-116 [facility] Comment on above: Performed By: #### L IPID, TSH, CMP #### [facility] [address] [place] [address] Dr. Leesa Urbina ALT [Catalytic activity/Vol] 12 U/L Critically low 16-63 [facility] Comment on above: Performed By: #### L IPID, TSH, CMP #### [facility] [address] [address] [address] Leesa Urbina Anion gap [Moles/Vol] 12.7 mmol/L Normal [facility] Comment on above: Performed By: #### L IPID, TSH, CMP #### [facility] [address] [place] [address] Dr. Leesa Urbina AST [Catalytic activity/Vol] 19 U/L Normal 15-37 [facility] Comment on above: Performed By: #### L IPID, TSH, CMP #### [facility] [address] [place] [address] Dr. Leesa Urbina Bilirubin [Mass/Vol] 0.4 mg/dL Normal 0.2-1.0 [facility] Comment on above: Performed By: #### L IPID, TSH, CMP #### [facility] [address] [address] [address] Leesa Urbina Calcium [Mass/Vol] 8.5 mg/dL Normal 8.5-10.[address] [facility] Comment on above: Performed By: #### L IPID, TSH, CMP #### [facility] [address] [address] [address] Leesa Urbina Chloride [Moles/Vol] 107 mmol/L Normal 98-107 [facility] Comment on above: Performed By: #### L IPID, TSH, CMP #### [facility] [address] [place] [address] Dr. Leesa Urbina CO2 [Moles/Vol] 27.4 mmol/L Normal 21.0-32.0 [facility] Comment on above: Performed By: #### L IPID, TSH, CMP #### [facility] [address] [place] [address] Dr. Leesa Urbina Creatinine [Mass/Vol] 1.06 mg/dL Normal 0.70-1.30 [facility] Comment on above: Performed By: #### L IPID, TSH, CMP #### [facility] [address] [place] [address] Dr. Leesa Urbina EGFR-AF MARSHALLESE >60 Normal >=60 [facility] Comment on above: Performed By: #### L IPID, TSH, CMP #### [facility] [address] [place] [address] Dr. Leesa Urbina EGFR-NON AF MARSHALLESE >60 Normal >=60 [facility] Comment on above: Performed By: #### L IPID, TSH, CMP #### [facility] [address] [place] [address] Dr. Leesa Urbina Globulin (S) [Mass/Vol] 3.1 g/dL Normal [facility] Comment on above: Performed By: #### L IPID, TSH, CMP #### [facility] [address] [address] [address] Leesa Urbina Glucose [Mass/Vol] 171 mg/dL Critically high 74-106 [facility] Comment on above: Performed By: #### L IPID, TSH, CMP #### [facility] [address] [place] [address] Dr. Leesa Urbina Potassium [Moles/Vol] 4.1 mmol/L Normal 3.5-5.1 [facility] Comment on above: Performed By: #### L IPID, TSH, CMP #### [facility] [address] [address] [address] Leesa Urbina Protein [Mass/Vol] 6.5 g/dL Normal 6.4-8.[address] [facility] Comment on above: Performed By: #### L IPID, TSH, CMP #### [facility] [address] [place] [address] Dr. Leesa Urbina Sodium [Moles/Vol] 143 mmol/L Normal 136-[address] [facility] Comment on above: Performed By: #### L IPID, TSH, CMP #### [facility] [address] [address] [address] Leesa Urbina Urea nitrogen [Mass/Vol] 24.0 mg/dL Critically high 7.0-18.0 [facility] Comment on above: Performed By: #### L IPID, TSH, CMP #### [facility] [address] [place] [address] Dr. Leesa Urbina Urea nitrogen/Creatinine [Mass ratio] 22.6 mg/mg Normal [facility] Comment on above: Performed By: #### L IPID, TSH, CMP #### [facility] [address] [place] [address] Dr. Leesa Urbina Basophils Auto (Bld) [#/Vol] Ordered By: Juan Ventura on 12-05-2021 Basophils (Bld) [#/Vol] 0.1 10*3/uL 0.0-0.2 [facility] Basophils/100 WBC Auto (Bld) Ordered By: Juan Ventura on 12-05-2021 Basophils/100 WBC (Bld) 0.9 % [facility] Blood hemoglobin measurement (mass/volume)Ordered By: Juan Ventura on 12-05-2021 Hemoglobin (Bld) [Mass/Vol] 12.4 g/dL 13.0-17.0 [facility] Blood leukocytes automated c ount (number/volume)Ordered By: Juan Ventura on 12-05-2021 WBC (Bld) [#/Vol] 7.0 10*3/uL 4.5-11.0 [facility] COVID-19 Positive/NegativeOr dered By: Juan Ventura on 12-05-2021 SARS-CoV-2 (COVID-19) N gene RENETTA+probe Ql (Resp) Negative Negative [facility] Comment on above: Testing for SARS-CoV -2 by RT-PCR This test was developed and its performance characteristics determined by [employer] and validated at the [facility]. This test has not been FDA cleared [...] on 12-05-2021 Creatinine [Mass/Vol] 1.28 mg/dL 0.64-1.27 [facility] Eosinophils Auto (Bld) [#/Vo l]Ordered By: Juan Ventura on 12-05-2021 Eosinophils (Bld) [#/Vol] 0.1 10*3/uL 0.0-0.45 [facility] Eosinophils/100 WBC Auto (Bl d)Ordered By: Juan Ventura on 12-05-2021 Eosinophils/100 WBC (Bld) 2.1 % [facility] Erythrocyte distribution wid th Auto (RBC) [Ratio]Ordered By: Juan Ventura on 12-05-2021 Erythrocyte distribution width (RBC) [Ratio] 14.6 % 12.0-14.8 [facility] Estimated glomerular filtrat ion rate (GFR) non- AmericanOrdered By: Juan Ventura on 12-05-2021 GFR/1.73 sq M.predicted among non-blacks MDRD (S/P/Bld) [Vol rate/Area] 54 mL/Min [facility] Hematocrit Auto (Bld) [Volum e fraction]Ordered By: Juan Ventura on 12-05-2021 Hematocrit (Bld) [Volume fraction] 37.3 % 38.8-50.0 [facility] Laboratory - Hematology and Cell countsOrdered By: Juan Ventura on 12-05-2021 Nucleated RBC/100 WBC (Bld) [Ratio] 0.0 % 0-0.5 [facility] Lymphocytes Auto (Bld) [#/Vo l]Ordered By: Juan Ventura on 12-05-2021 Lymphocytes (Bld) [#/Vol] 1.4 10*3/uL 1.00-4.8 [facility] Lymphocytes/100 WBC Auto (Bl d)Ordered By: Juan Ventura on 12-05-2021 Lymphocytes/100 WBC (Bld) 19.8 % [facility] MCH Auto (RBC) [Entitic mass ]Ordered By: Juan Ventura on 12-05-2021 MCH (RBC) [Entitic mass] 30.8 pg 27.5-35.2 [facility] MCHC Auto (RBC) [Mass/Vol]Or dered By: Juan Ventura on 12-05-2021 MCHC (RBC) [Mass/Vol] 33.1 g/dL 32.5-35.6 [facility] MCV Auto (RBC) [Entitic vol] Ordered By: Juan Ventura on 12-05-2021 MCV (RBC) [Entitic vol] 93.1 fL 83.5-101 [facility] Monocytes Auto (Bld) [#/Vol] Ordered By: Juan Ventura on 12-05-2021 Monocytes (Bld) [#/Vol] 0.5 10*3/uL 0.0-0.8 [facility] Monocytes/100 WBC Auto (Bld) Ordered By: Juan Ventura on 12-05-2021 Monocytes/100 WBC (Bld) 7.3 % [facility] Neutrophils Auto (Bld) [#/Vo l]Ordered By: Juan Ventura on 12-05-2021 Neutrophils (Bld) [#/Vol] 4.9 10*3/uL 1.8-7.7 [facility] Neutrophils/100 WBC Auto (Bl d)Ordered By: Juan Ventura on 12-05-2021 Neutrophils/100 WBC (Bld) 69.9 % [facility] No Panel InformationOrdered By: Juan Ventura on 12-05-2021 Estimated GFR () > 60 mL/Min [facility] Comment on above: GFR estimated refere nce range: According to KDOQI guidelines, <60 ml/min/1.73m2 is sufficient to diagnose a patient with chronic kidney disease. Pharmacy Creatinine Clearance (Chem N/A [facility] Platelet mean volume Auto (B ld) [Entitic vol]Ordered By: Juan Ventura on 12-05-2021 Platelet mean volume (Bld) [Entitic vol] 8.9 fL 6.6-10.1 [facility] Platelets Auto (Bld) [#/Vol] Ordered By: Juan Ventura on 12-05-2021 Platelets (Bld) [#/Vol] 194 10*3/uL 150-450 [facility] RBC Auto (Bld) [#/Vol]Ordere d By: Juan Ventura on 12-05-2021 RBC (Bld) [#/Vol] 4.00 10*6/uL 3.90-5.60 [facility] Serum or plasma calcium fco urement (mass/volume)Ordered By: Juan Ventura on 12-05-2021 Calcium [Mass/Vol] 9.2 mg/dL 8.2-10.2 [facility] Serum or plasma chloride daniel surement (moles/volume)Ordered By: Juan Ventura on 12-05-2021 Chloride [Moles/Vol] 107 mmol/L 95-114 [facility] Serum or plasma glucose fco urement (mass/volume)Ordered By: Juan Ventura on 12-05-2021 Glucose [Mass/Vol] 117 mg/dL 70-100 [facility] Comment on above: ADA recommended refe rence range Random Glucose Reference Range is dependent on time and content of last meal. Glucose of more than 200 mg/dL in a nonstressed, ambulatory subject supports the diagnosis of Diabetes Mellitus. Serum or plasma potassium me asurement (moles/volume)Ordered By: Juan Ventura on 12-05-2021 Potassium [Moles/Vol] 4.6 mmol/L 3.5-5.1 [facility] Serum or plasma sodium measu rement (moles/volume)Ordered By: Juan Ventura on 12-05-2021 Sodium [Moles/Vol] 141 mmol/L 136-146 [facility] Serum or plasma total carbon dioxide measurement (moles/volume)Ordered By: Juan Ventura on 12-05-2021 CO2 [Moles/Vol] 26.2 mmol/L 22.0-30.0 [facility] Serum or plasma urea nitroge n measurement (mass/volume)Ordered By: Juan Ventura on 12-05-2021 Urea nitrogen [Mass/Vol] 23 mg/dL 9-23 [facility] CBC AUTO DIFFon 11-05-2021 BASO # 0.1 103/ul Normal 0.0-0.1 [facility] Comment on above: Performed By: #### C BC #### [facility] [address] [address] [address] Leesa Urbina Basophils/100 WBC (Bld) 0.8 % Normal 0.2-2.0 [facility] Comment on above: Performed By: #### C BC #### [facility] [address] [address] [address] Leesa Urbina EO # 0.4 103/ul Normal 0.0-0.7 [facility] Comment on above: Performed By: #### C BC #### [facility] [address] [place] [address] Dr. Leesa Urbina Eosinophils/100 WBC (Bld) 5.6 % Normal 0.9-7.0 [facility] Comment on above: Performed By: #### C BC #### [facility] [address] [place] [address] Dr. Leesa Urbina Erythrocyte distribution width (RBC) [Ratio] 13.4 % Normal 11.0-15.0 [facility] Comment on above: Performed By: #### C BC #### [facility] [address] [place] [address] Dr. Leesa Urbina Hematocrit (Bld) [Volume fraction] 36.1 % Critically low 42.0-54.0 [facility] Comment on above: Performed By: #### C BC #### [facility] [address] [place] [address] Dr. Leesa Urbina Hemoglobin (Bld) [Mass/Vol] 11.8 g/dL Critically low 14.0-18.0 [facility] Comment on above: Performed By: #### C BC #### [facility] [address] [place] [address] Dr. Leesa Urbina IG # 0.02 10e3/ul Normal 0.00-0.03 [facility] Comment on above: Performed By: #### C BC #### [facility] [address] [place] [address] Dr. Leesa Urbina IG % 0.3 % Normal 0.0-0.5 [facility] Comment on above: Performed By: #### C BC #### [facility] [address] [place] [address] Dr. Leesa Urbina LYMPH # 1.8 103/ul Normal 1.2-3.8 [facility] Comment on above: Performed By: #### C BC #### [facility] [address] [place] [address] Dr. Leesa Urbina Lymphocytes/100 WBC (Bld) 28.4 % Normal 20.5-60.0 [facility] Comment on above: Performed By: #### C BC #### [facility] [address] [place] [address] Dr. Leesa Urbina MANUAL DIFF REQ NO Normal [facility] Comment on above: Performed By: #### C BC #### [facility] [address] [place] [address] Dr. Leesa Urbina MCH (RBC) [Entitic mass] 30.7 pg Normal 25.9-34.0 [facility] Comment on above: Performed By: #### C BC #### [facility] [address] [place] [address] Dr. Leesa Urbina MCHC (RBC) [Mass/Vol] 32.7 g/dL Normal 29.9-35.2 [facility] Comment on above: Performed By: #### C BC #### [facility] [address] [place] [address] Dr. Leesa Urbina MCV (RBC) [Entitic vol] 94.0 fL Normal 80.0-94.0 [facility] Comment on above: Performed By: #### C BC #### [facility] [address] [place] [address] Dr. Leesa Urbina MONO # 0.5 103/ul Normal 0.3-0.8 [facility] Comment on above: Performed By: #### C BC #### [facility] [address] [place] [address] Dr. Leesa Urbina Monocytes/100 WBC (Bld) 8.1 % Normal 1.7-12.0 [facility] Comment on above: Performed By: #### C BC #### [facility] [address] [place] [address] Dr. Leesa Urbina NEUT # 3.5 103/ul Normal 1.4-6.5 [facility] Comment on above: Performed By: #### C BC #### [facility] [address] [place] [address] Dr. Leesa Urbina Neutrophils/100 WBC (Bld) 56.8 % Normal 43.0-75.0 [facility] Comment on above: Performed By: #### C BC #### [facility] [address] [place] [address] Dr. Leesa Urbina Platelet mean volume (Bld) [Entitic vol] 10.3 fL Normal 9.5-13.5 [facility] Comment on above: Performed By: #### C BC #### [facility] [address] [address] [address] Leesa Urbina PLT 179 103/ul Normal 150-450 [facility] Comment on above: Performed By: #### C BC #### [facility] [address] [place] [address] Dr. Leesa Urbina RBC 3.84 106/ul Critically low 4.70-6.10 [facility] Comment on above: Performed By: #### C BC #### [facility] [address] [place] [address] Dr. Leesa Urbina WBC 6.2 103/ul Normal 4.0-11.0 [facility] Comment on above: Performed By: #### C BC #### [facility] [address] [place] [address] Dr. Leesa Urbina GLYCOHEMOGLOBIN A1Con 2021 ADA RECOMMENDATION SEE BELOW Normal [facility] Comment on above: Result Comment: ADA RECOMMENDED LIMIT 4.0 - 6.0 ADA THERAPEUTIC TARGET < 7.0 ACTION SUGGESTED > 7.0 Performed By: #### L IPID, TSH, CMP #### [facility] [address] [place] [address] Dr. Leesa Urbina Glucose [Mass/Vol] 151 mg/dL Normal [facility] Comment on above: Performed By: #### L IPID, TSH, CMP #### [facility] [address] [place] [address] Dr. Leesa Urbina HbA1c (Bld) [Mass fraction] 6.9 % Critically high 4.5-6.2 [facility] Comment on above: Performed By: #### L IPID, TSH, CMP #### [facility] [address] [place] [address] Dr. Leesa Urbina LIPID PROFILEon 11-05-2021 CHOL-HDL RATIO NORM SEE BELOW Normal [facility] Comment on above: Result Comment: 3.3 - 4.4 LOW RISK 4.4 - 7.1 AVERAGE RISK 7.1 - 11.0 MODERATE RISK >11.0 HIGH RISK Performed By: #### L IPID, TSH, CMP #### [facility] [address] [place] [address] Dr. Leesa Urbina Cholesterol [Mass/Vol] 150 mg/dL Normal <=200 [facility] Comment on above: Performed By: #### L IPID, TSH, CMP #### [facility] [address] [place] [address] Dr. Leesa Urbina Cholesterol in HDL [Mass/Vol] 60 mg/dL Normal 40-60 [facility] Comment on above: Performed By: #### L IPID, TSH, CMP #### [facility] [address] [place] [address] Dr. Leesa Urbina Cholesterol in LDL [Mass/Vol] 70.8 mg/dL Normal [facility] Comment on above: Performed By: #### L IPID, TSH, CMP #### [facility] [address] [place] [address] Dr. Leesa Urbina Cholesterol.total/Kandy sterol in HDL [Mass ratio] 2.5 {ratio} Normal [facility] Comment on above: Performed By: #### L IPID, TSH, CMP #### [facility] [address] [place] [address] Dr. Leesa Urbina HDL NORMAL > or = 60 mg/dl - LO W CARDIOVASCULAR RISK <40 mg/dl - HIGH CARDIOVASCULAR RISK Normal [facility] Comment on above: Performed By: #### L IPID, TSH, CMP #### [facility] [address] [place] [address] Dr. Leesa Urbina LDL CALC NORMAL SEE BELOW Normal [facility] Comment on above: Result Comment: <100 mg/dl OPTIMAL 100 - 129 mg/dl NEAR OR ABOVE OPTIMAL 130 - 159 mg/dl BORDERLINE HIGH 160 - 189 mg/dl HIGH >190 mg/dl VERY HIGH Performed By: #### L IPID, TSH, CMP #### [facility] [address] [address] [address] Leesa Urbina Triglyceride [Mass/Vol] 96 mg/dL Normal <=150 [facility] Comment on above: Performed By: #### L IPID, TSH, CMP #### [facility] [address] [address] [address] Leesa Urbina VLDL CALC 19.2 mg/dL Normal [facility] Comment on above: Performed By: #### L IPID, TSH, CMP #### [facility] [address] [address] [address] Leesa Urbina MICROALB CREAT RATIO RANDOMo n 11-05-2021 mALB <1.3 Normal <=30.0 [facility] Comment on above: Performed By: #### L IPID, TSH, CMP #### [facility] [address] [address] [address] Leesa JOHNS CR RATIO 11.4 mg/g Normal 0.0-29.9 [facility] Comment on above: Performed By: #### L IPID, TSH, CMP #### [facility] [address] [address] [address] Leesa Urbina MALB CR RATIO RANGE SEE BELOW Normal [facility] Comment on above: Result Comment: NO M ICROALBUMINURIA 0-29 MG/G CLINICAL MICROALBUMINURIA 30-300 MG/G MACROALBUMINURIA >300 MG/G Performed By: #### L IPID, TSH, CMP #### [facility] [address] [place] [address] Dr. Leesa Urbina URINE CREAT 114.03 mg/dL Normal 20.00-300.00 [facility] Comment on above: Performed By: #### L IPID, TSH, CMP #### [facility] [address] [address] [address] Leesa Urbina PROF 14(COMP METB)on 022 Albumin [Mass/Vol] 2.3 g/dL Critically low 3.4-5.0 [facility] Comment on above: Performed By: #### L IPID, TSH, CMP #### [facility] [address] [address] [address] Leesa Urbina Albumin/Globulin [Mass ratio] 0.5 {ratio} Normal [facility] Comment on above: Performed By: #### L IPID, TSH, CMP #### [facility] [address] [address] [address] Leesa Urbina ALP [Catalytic activity/Vol] 77 U/L Normal 46-116 [facility] Comment on above: Performed By: #### L IPID, TSH, CMP #### [facility] [address] [address] [address] Leesa Urbina ALT [Catalytic activity/Vol] 16 U/L Normal 16-63 [facility] Comment on above: Performed By: #### L IPID, TSH, CMP #### [facility] [address] [address] [address] Leesa Urbina Anion gap [Moles/Vol] 13.8 mmol/L Normal [facility] Comment on above: Performed By: #### L IPID, TSH, CMP #### [facility] [address] [address] [address] Leesa Urbina AST [Catalytic activity/Vol] 15 U/L Normal 15-37 [facility] Comment on above: Performed By: #### L IPID, TSH, CMP #### [facility] [address] [address] [address] Leesa Urbina Bilirubin [Mass/Vol] 0.5 mg/dL Normal 0.2-1.0 [facility] Comment on above: Performed By: #### L IPID, TSH, CMP #### [facility] [address] [address] [address] Leesa Urbina Calcium [Mass/Vol] 8.7 mg/dL Normal 8.5-10.[address] [facility] Comment on above: Performed By: #### L IPID, TSH, CMP #### [facility] [address] [address] [address] Leesa Urbina Chloride [Moles/Vol] 107 mmol/L Normal 98-107 [facility] Comment on above: Performed By: #### L IPID, TSH, CMP #### [facility] [address] [address] [address] Leesa Urbina CO2 [Moles/Vol] 26.2 mmol/L Normal 21.0-32.0 [facility] Comment on above: Performed By: #### L IPID, TSH, CMP #### [facility] [address] [place] [address] Dr. Leesa Urbina Creatinine [Mass/Vol] 1.25 mg/dL Normal 0.70-1.30 [facility] Comment on above: Performed By: #### L IPID, TSH, CMP #### [facility] [address] [place] [address] Dr. Leesa Urbina EGFR-AF MARSHALLESE >60 Normal >=60 [facility] Comment on above: Performed By: #### L IPID, TSH, CMP #### [facility] [address] [place] [address] Dr. Leesa Urbina EGFR-NON AF MARSHALLESE 55 mL/min/1.73m2 Critically low >=60 [facility] Comment on above: Performed By: #### L IPID, TSH, CMP #### [facility] [address] [place] [address] Dr. Leesa Urbina Globulin (S) [Mass/Vol] 4.3 g/dL Normal [facility] Comment on above: Performed By: #### L IPID, TSH, CMP #### [facility] [address] [place] [address] Dr. Leesa Urbina Glucose [Mass/Vol] 137 mg/dL Critically high 74-106 [facility] Comment on above: Performed By: #### L IPID, TSH, CMP #### [facility] [address] [place] [address] Dr. Leesa Urbina Potassium [Moles/Vol] 4.0 mmol/L Normal 3.5-5.1 [facility] Comment on above: Performed By: #### L IPID, TSH, CMP #### [facility] [address] [address] [address] Leesa Urbina Protein [Mass/Vol] 6.6 g/dL Normal 6.4-8.2 [facility] Comment on above: Performed By: #### L IPID, TSH, CMP #### [facility] [address] [address] [address] Leesa Urbina Sodium [Moles/Vol] 143 mmol/L Normal 136-145 [facility] Comment on above: Performed By: #### L IPID, TSH, CMP #### [facility] [address] [address] [address] Leesa Urbina Urea nitrogen [Mass/Vol] 24.0 mg/dL Critically high 7.0-18.0 [facility] Comment on above: Performed By: #### L IPID, TSH, CMP #### [facility] [address] [place] [address] Dr. Leesa Urbina Urea nitrogen/Creatinine [Mass ratio] 19.2 mg/mg Normal [facility] Comment on above: Performed By: #### L IPID, TSH, CMP #### [facility] [address] [address] [address] Leesa Urbina TSHon 11-05-2021 TSH 0.996 uIU/mL Normal 0.358-3.740 [facility] Comment on above: Performed By: #### L IPID, TSH, CMP #### [facility] [address] [place] [address] Dr. Lesea Urbina Tobacco Screening.on 022 Adult depression screening assessment No [facility] [facility] 250 DO Work Phone: Fall risk assessment a) No falls within the last year formerly [facility] [facility] 250 DO Work Phone: Tobacco use status [facility] b) No [facility] [facility] 250 DO Work Phone: Vital Signs Date Time Vital Sign Value Performing Clinician Facility 10-02-2024 11:54-0400 Body height 180.3 cm Missy Khoury MD Work Phone: [facility] 10-02-2024 11:54-0400 Body mass index (BMI) [Ratio] 23.15 kg/m2 Missy Khoury MD Work Phone: [facility] 10-02-2024 11:54-0400 Body weight 75.3 kg Missy Khoury MD Work Phone: [facility] 10-02-2024 11:54-0400 Diastolic blood pressure 64 mm[Hg] Missy Khoury MD Work Phone: [facility] 10-02-2024 11:54-0400 Heart rate 64 /min Missy Khoury MD Work Phone: [facility] 10-02-2024 11:54-0400 Systolic blood pressure 142 mm[Hg] Missy Khoury MD Work Phone: [facility] 09-04-2024 08:03-0400 Body height 175.3 cm Nirav Bello DO Work Phone: [facility] 09-04-2024 08:03-0400 Body mass index (BMI) [Ratio] 24.96 kg/m2 Nirav Bello DO Work Phone: [facility] 09-04-2024 08:03-0400 Body weight 76.66 kg Nirav Bello DO Work Phone: [facility] 09-04-2024 08:03-0400 Diastolic blood pressure 72 mm[Hg] Nirav Bello DO Work Phone: [facility] 09-04-2024 08:03-0400 Heart rate 62 /min Nirav Bello DO Work Phone: [facility] 09-04-2024 08:03-0400 SaO2% (BldA) [Mass fraction] 96 % Nirav Bello DO Work Phone: [facility] 09-04-2024 08:03-0400 Systolic blood pressure 138 mm[Hg] Nirav Bello DO Work Phone: [facility] 08-09-2024 11:25-0400 Diastolic blood pressure 87 mm[Hg] Nirav Bello DO Work Phone: [facility] 08-09-2024 11:25-0400 Heart rate 74 /min Nirav Bello DO Work Phone: [facility] 08-09-2024 11:25-0400 Respiratory rate 16 /min Nirav Bello DO Work Phone: [facility] 08-09-2024 11:25-0400 SaO2% (BldA) [Mass fraction] 96 % Nirav Bello DO Work Phone: [facility] 08-09-2024 11:25-0400 Systolic blood pressure 171 mm[Hg] Nirav Bello DO Work Phone: [facility] 08-09-2024 10:05-0400 Body height 180.34 cm Nirav Bello DO Work Phone: [facility] 08-09-2024 10:05-0400 Body temperature 97.5 [degF] Nirav Bello DO Work Phone: [facility] 08-09-2024 10:05-0400 Body weight 75.29 kg Nirav Bello DO Work Phone: [facility] 05-10-2024 09:57-0500 Body height 175.3 cm Nirav Bello DO Work Phone: [facility] 05-10-2024 09:57-0500 Body mass index (BMI) [Ratio] 24.81 kg/m2 Nirav Bello DO Work Phone: [facility] 05-10-2024 09:57-0500 Body weight 76.2 kg Nirav Bello DO Work Phone: [facility] 05-10-2024 09:57-0500 Diastolic blood pressure 66 mm[Hg] Nirav Bello DO Work Phone: [facility] 05-10-2024 09:57-0500 Heart rate 72 /min Nirav Ace DO Work Phone: [facility] 05-10-2024 09:57-0500 SaO2% (BldA) [Mass fraction] 97 % Nirav Ace DO Work Phone: [facility] 05-10-2024 09:57-0500 Systolic blood pressure 136 mm[Hg] Nirav Bello DO Work Phone: [facility] 05-01-2024 14:07-0500 Diastolic blood pressure 94 mm[Hg] Missy Khoury MD Work Phone: [facility] 05-01-2024 14:07-0500 Systolic blood pressure 174 mm[Hg] Missy Khoury MD Work Phone: [facility] 05-01-2024 13:39-0500 Body height 180.3 cm Missy Khoury MD Work Phone: [facility] 05-01-2024 13:39-0500 Body mass index (BMI) [Ratio] 23.99 kg/m2 Missy Khoury MD Work Phone: [facility] 05-01-2024 13:39-0500 Body weight 78.02 kg Missy Khoury MD Work Phone: [facility] 05-01-2024 13:39-0500 Heart rate 48 /min Missy Khoury MD Work Phone: [facility] 02-21-2024 07:52-0400 Body height 180.[address] 02-21-2024 07:52-0400 Body mass index (BMI) [Ratio] 23.71 kg/m2 [address] 02-21-2024 07:52-0400 Body weight 77.[address] 02-21-2024 07:52-0400 Diastolic blood pressure 84 mm[Hg] [address] 02-21-2024 07:52-0400 Systolic blood pressure 142 mm[Hg] Sindi 2 [facility] 02-07-2024 09:44-0400 Diastolic blood pressure 86 mm[Hg] Sindi 1 [facility] 02-07-2024 09:44-0400 Heart rate 66 /min Sindi 1 [facility] 02-07-2024 09:44-0400 Systolic blood pressure 138 mm[Hg] Sindi 1 [facility] 01-13-2024 16:15-0400 Diastolic blood pressure 100 mm[Hg] Missy Khoury MD Work Phone: [facility] 01-13-2024 16:15-0400 Systolic blood pressure 162 mm[Hg] Missy Khoury MD Work Phone: [facility] 01-13-2024 15:24-0400 Body height 180.3 cm Missy Khoury MD Work Phone: [facility] 01-13-2024 15:24-0400 Body mass index (BMI) [Ratio] 23.71 kg/m2 Missy Khoury MD Work Phone: [facility] 01-13-2024 15:24-0400 Body weight 77.11 kg Missy Khoury MD Work Phone: [facility] 01-13-2024 15:24-0400 Heart rate 72 /min Missy Khoury MD Work Phone: [facility] 01-11-2024 09:54-0400 Body height 175.3 cm Nirav Bello DO Work Phone: [facility] 01-11-2024 09:54-0400 Body mass index (BMI) [Ratio] 24.22 kg/m2 Nirav Bello DO Work Phone: [facility] 01-11-2024 09:54-0400 Body weight 74.39 kg Nirav Bello DO Work Phone: [facility] 01-11-2024 09:54-0400 Heart rate 75 /min Nirav Ace DO Work Phone: [facility] 01-11-2024 09:54-0400 SaO2% (BldA) [Mass fraction] 97 % Nirav Bello DO Work Phone: [facility] 07-13-2023 08:34-0500 Body height 180.3 cm Epifanio Davis MD Work Phone: [facility] 07-13-2023 08:34-0500 Body mass index (BMI) [Ratio] 23.99 kg/m2 Epifanio Davis MD Work Phone: [facility] 07-13-2023 08:34-0500 Body weight 78.02 kg Epifanio Davis MD Work Phone: [facility] 07-13-2023 08:34-0500 Diastolic blood pressure 64 mm[Hg] Epifanio Davis MD Work Phone: [facility] 07-13-2023 08:34-0500 Heart rate 60 /min Epifanio Davis MD Work Phone: [facility] 07-13-2023 08:34-0500 Systolic blood pressure 108 mm[Hg] Epifanio Davis MD Work Phone: [facility] 11-17-2022 14:15-0400 Body height 180.34 cm Imad Asaad Other [employer] Other 11-17-2022 14:15-0400 Body mass index (BMI) [Ratio] 23.71 kg/m2 Imad Asaad Other [employer] Other 11-17-2022 14:15-0400 Body weight 77.11 kg Imad Asaad Other [employer] Other 11-17-2022 14:15-0400 Diastolic blood pressure 78 mm[Hg] Imad Asaad Other [employer] Other 11-17-2022 14:15-0400 Systolic blood pressure 127 mm[Hg] Imad Mcad Other [facility] [employer] Other 07-14-2022 09:08-0500 Body height 180.34 cm Nirav Bello Work Phone: formerly [facility] 250 DO Work Phone: 07-14-2022 09:08-0500 Body mass index (BMI) [Ratio] 24.13 kg/m2 Nirav Bello Work Phone: formerly [facility] 250 DO Work Phone: 07-14-2022 09:08-0500 Body surface area Derived from formula 1.98 m2 Nirav Bello Work Phone: formerly [facility] 250 DO Work Phone: 07-14-2022 09:08-0500 Body weight 78.47 kg Nirav Bello Work Phone: formerly [facility] 250 DO Work Phone: 07-14-2022 09:08-0500 Diastolic blood pressure 78 mm[Hg] Nirav Bello Work Phone: formerly [facility] 250 DO Work Phone: 07-14-2022 09:08-0500 Heart rate 68 /min Nirav Bello Work Phone: formerly [facility] 250 DO Work Phone: 07-14-2022 09:08-0500 Systolic blood pressure 124 mm[Hg] Niarv Bello Work Phone: formerly [facility] 250 DO Work Phone: 07-03-2021 15:20-0500 Diastolic blood pressure 78 mm[Hg] Nirav Bello Work Phone: formerly [facility] 250 DO Work Phone: 07-03-2021 15:20-0500 Heart rate 65 /min Nirav Bello Work Phone: formerly [facility] 250 DO Work Phone: 07-03-2021 15:20-0500 Systolic blood pressure 136 mm[Hg] Nirav Bello Work Phone: formerly [facility] 250 DO Work Phone: 07-03-2021 15:17-0500 Body height 180.34 cm Nirav Bello Work Phone: formerly [facility] 250 DO Work Phone: 07-03-2021 15:17-0500 Body mass index (BMI) [Ratio] 24.97 kg/m2 Nirav Bello Work Phone: formerly [facility] 250 DO Work Phone: 07-03-2021 15:17-0500 Body surface area Derived from formula 2.01 m2 Nirav Bello Work Phone: formerly [facility] 250 DO Work Phone: 07-03-2021 15:17-0500 Body weight 81.19 kg Nirav Bello Work Phone: formerly [facility] 250 DO Work Phone: 07-03-2021 15:17-0500 Diastolic blood pressure 80 mm[Hg] Nirav Bello Work Phone: formerly [facility] 250 DO Work Phone: 07-03-2021 15:17-0500 Systolic blood pressure 151 mm[Hg] Nirav Bello Work Phone: formerly [facility] 250 DO Work Phone: Encounters Encounter Date Encounter Type Care Provider Facility Start: 10-26-2024 End: 10-26-2024 Nanette Barrow MD Work Phone: [facility] Start: 10-26-2024 End: 10-26-2024 Bamrichie Barrow MD Work Phone: [facility] Start: 10-26-2024 End: 10-26-2024 Office outpatient visit 15 minutes Laura Barrow MD Work Phone: [facility] Comment on above: Seborrheic keratosis (Primary Dx); Lentigines; Actinic keratosis; Neoplasm of unspecified behavior of bone, soft tissue, and skin; History of malignant neoplasm of skin Start: 10-26-2024 End: 10-26-2024 ambulatory LAURA BARROW Not Available Start: 10-02-2024 End: 10-02-2024 Office outpatient visit 25 minutes Missy Khoury MD Work Phone: [facility] Comment on above: Paroxysmal atrial fi brillation [...] Former smoker Start: 10-02-2024 End: 10-02-2024 ambulatory [facility] Amb[facility] Start: 09-13-2024 End: 09-13-2024 Bamboo flowsheet Aamir Talbert MD Work Phone: [facility] Start: 09-13-2024 End: 09-13-2024 Bamboo flowsheet Aamir Talbert MD Work Phone: [facility] Start: 09-13-2024 End: 09-13-2024 Postop follow up visit related to original px Aamir Talbert MD Work Phone: [facility] Comment on above: Encounter for remova l of sutures Start: 09-13-2024 End: 09-13-2024 ambulatory AAMIR Nona TALBERT Not Available Start: 09-04-2024 End: 09-04-2024 Office outpatient visit 40 minutes Nirav Bello DO Work Phone: [facility] Comment on above: PAF (paroxysmal atri al fibrillation) (CMS/HCC) (Primary Dx); Stage 3a chronic kidney disease (HCC) ([facility]/HCC); Type 2 diabetes mellitus with other specified complication, without long-term current use of insulin; Mixed hyperlipidemia (CMS/HCC); Exocrine pancreatic insufficiency (CMS/HCC); Primary hypertension ([facility]/HCC) Start: 09-04-2024 End: 09-04-2024 ambulatory NIRAV BELLO Not Available Start: 08-30-2024 End: 08-30-2024 Patient encounter procedure Laura Barrow MD Work Phone: [facility] Comment on above: 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, including shoulder (Primary Dx) Start: 08-30-2024 End: 08-30-2024 ambulatory LAURA BARROW Not Available Start: 08-25-2024 End: 08-25-2024 Clinisync Result Encounter Generic External Data Provider [facility] External Department Unsolicited Start: 08-25-2024 End: 08-25-2024 Clinisync Result Encounter Generic External Data Provider [facility] External Department Unsolicited Start: 08-09-2024 End: 08-09-2024 Admission to same day surgery center Nirav Bello DO Work Phone: [facility] [place] Start: 08-09-2024 End: 08-09-2024 ambulatory Nirav Bello DO Work Phone: [facility] Work Phone: Start: 08-04-2024 End: 08-04-2024 ambulatory OLGA Jessie DALEY Not Available Start: 07-26-2024 End: 07-26-2024 Patient encounter procedure Laura Barrow MD Work Phone: [facility] Comment on above: 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, including hip (Primary Dx) Start: 07-26-2024 End: 07-26-2024 ambulatory LAURA BARROW Not Available Start: 07-26-2024 End: 07-26-2024 Bamboo linda Barrow MD Work Phone: [facility] Start: 07-26-2024 End: 07-26-2024 Bamboo linda Barrow MD Work Phone: [facility] Start: 07-14-2024 End: 07-14-2024 Nanette Barrow MD Work Phone: [facility] Start: 07-14-2024 End: 07-14-2024 Nanette Barrow MD Work Phone: [facility] Start: 07-14-2024 End: 07-14-2024 Patient [...] Department Unsolicited Start: 06-30-2024 End: 06-30-2024 Bamboo linda Barrow MD Work Phone: [facility] Start: 06-30-2024 End: 06-30-2024 Bamboo linda Barrow MD Work Phone: [facility] Start: 06-30-2024 End: 06-30-2024 Patient encounter procedure Laura Barrow MD Work Phone: [facility] Comment on above: Basal cell carcinoma (BCC) of skin of left upper extremity including shoulder (Primary Dx); Skin neoplasm Start: 06-30-2024 End: 06-30-2024 ambulatory LAURA Alicia BARROW Not Available Start: 05-10-2024 End: 05-10-2024 Bamboo flowsheet Nirav Bello DO Work Phone: [facility] Start: 05-10-2024 End: 05-10-2024 Bamboo flowsheet Nirav Bello DO Work Phone: [facility] Start: 05-10-2024 End: 05-10-2024 Office outpatient visit 40 minutes Nirav Bello DO Work Phone: [facility] Comment on above: Allergic sinusitis ( [...] 25 minutes Missy Khoury MD Work Phone: [facility] Comment on above: Encounter to discuss test results (Primary Dx); Paroxysmal atrial fibrillation (Multi); Nonrheumatic mitral valve regurgitation; 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); Essential hypertension; Prostate cancer (Multi); PVC (premature ventricular contraction); Mixed hyperlipidemia; Type 2 diabetes mellitus without complication, without long-term current use of insulin (Multi); 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; Former smoker; Body mass index (BMI) of 23.0 to 23.9 in adult Start: 05-01-2024 End: 05-01-2024 ambulatory [facility] Amb[facility] Start: 04-27-2024 End: 04-27-2024 Bamboo flowsheet Laura A Petitti MD Work Phone: [facility] Start: 04-27-2024 End: 04-27-2024 Bamboo flowsgeno Barrow MD Work Phone: [facility] Start: 04-27-2024 End: 04-27-2024 ambulatory LAURA [...] Department Unsolicited Start: 02-21-2024 End: 02-21-2024 ambulatory [facility] Start: 02-21-2024 End: 02-21-2024 Subsequent hospital visit by physician Sindi Hernadez Echo/Vasc Room 2 [facility] Comment on above: PVC (premature ventr icular contraction); Paroxysmal atrial fibrillation (Multi) Start: 02-07-2024 End: 02-07-2024 Subsequent hospital visit by physician Sindi Farr [place] [facility] Comment on above: PVC (premature ventr icular contraction); 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; Ventricular arrhythmia; Abnormal electrocardiogram (ECG) (EKG) Start: 02-07-2024 End: 02-07-2024 ambulatory [facility] Start: 02-03-2024 End: 02-03-2024 Clinisync Result Encounter Generic External Data Provider [facility] External Department Unsolicited Start: 02-03-2024 End: 02-03-2024 Clinisync Result Encounter Generic External Data Provider [facility] External Department Unsolicited Start: 01-13-2024 End: 01-13-2024 Office outpatient visit 25 minutes Missy Khoury MD Work Phone: [facility] Comment on above: Ventricular arrhythm ia (Primary Dx); PVC (premature ventricular contraction); Paroxysmal atrial fibrillation (Multi); 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; 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; High risk medication use; Mixed hyperlipidemia; Uncontrolled hypertension; Former smoker; Type 2 diabetes mellitus without complication, without long-term current use of insulin (Multi); Stage 3a chronic kidney disease (Multi); Prostate cancer (Multi); Abnormal electrocardiogram (ECG) (EKG) Start: 01-13-2024 End: 01-13-2024 ambulatory [facility] Ambulatory Start: 01-11-2024 End: 01-11-2024 Office outpatient visit 25 minutes Nirav Bello DO Work Phone: [facility] Comment on above: Primary hypertension (CMS/HCC) (Primary Dx); PAF (paroxysmal atrial fibrillation) (CMS/HCC); Stage 3a chronic kidney disease (HCC) (CMS/HCC); Type 2 diabetes mellitus with other specified complication, without long-term current use of insulin (CMS/HCC) Start: 01-11-2024 End: 01-11-2024 ambulatory NIRAV BELLO Not Available Start: 11-15-2023 End: 11-15-2023 ambulatory NIRAV BELLO Not Available Start: 09-13-2023 End: 09-13-2023 Patient encounter procedure DO Nirav Bello Work Phone: [facility] Work Phone: Start: 09-13-2023 End: 09-13-2023 ambulatory DO Nirav Bello Work Phone: [facility] Work Phone: Start: 07-13-2023 End: 07-13-2023 Office outpatient visit 25 minutes Epifanio Davis MD Work Phone: [facility] Comment on above: Benign essential hyp ertension (Primary Dx); Mixed hyperlipidemia; Paroxysmal atrial fibrillation (CMS/HCC); Former smoker Start: 11-26-2022 End: 11-26-2022 ambulatory DO Nirav Bello Work Phone: [facility] Work Phone: Start: 11-26-2022 End: 11-26-2022 Patient encounter procedure DO Nirav Bello Work Phone: [facility] [place] Work Phone: Start: 11-17-2022 End: 11-17-2022 ambulatory Imad Asaad Other [facility] [employer] Other Start: 11-17-2022 Office outpatient ne w 45 minutes Imad Asaad [facility] Start: 11-17-2022 Telephone encounter Imad Asaad [facility] Start: 09-03-2022 End: 09-04-[address] NIRAV BELLO Facility:[facility] Start: 07-14-2022 Office outpatient vi sit 25 minutes Nirav Bello Work Phone: [facility] 250 DO Work Phone: Start: 07-14-[address] 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 Facility:[facility] Start: 11-05-2021 End: 11-06-[address] NIRAV BELLO Facility:[facility] Start: 07-03-2021 Office outpatient vi sit 25 minutes Nirav Bello Work Phone: [facility] 250 DO Work Phone: Start: 03-05-2021 Rx Renewal Marina lozada MD Work Phone: -[facility] 250 DO Work Phone: Start: 07-12-2020 End: 07-12-2020 Discharged Recurring Nirav Blelo [facility] Vaccine Procedures Date Procedure Procedure Detail Performing Clinician Start: 10-26-2024 CRYOTHERAPY SKIN LESION Laura Barrow MD Work Phone: Start: 10-26-2024 End: 10-26-2024 SKIN / NAIL BIOPSY Laura Barrow MD Work Phone: Start: 08-30-2024 SKIN EXCISION Laura morris MD [...] Phone: Start: 07-06-2024 [facility] CMP (CMP) (FOR [facility] USE) Generic External Data Provider Start: 06-30-2024 [...] By: #### L IPID, TSH, CMP #### [facility] [address] [place] [address] Dr. Leesa Urbina Start: 11-20-[address] DOCTOR BISHOP Comment on above: Performed By: #### P SAD #### [facility] [address] [address] [address] Leesa Urbina Appendectomy Nirav daniel Work Phone: Cataract surgery Nirav morris Work Phone: Colonoscopy Nirav daniel Work Phone: Comment on above: [id number] Jovanny Yu; Operation on lip Nirav morris Work Phone: Prostatectomy Nirav mae Work Phone: Plan of Treatment Date Care Activity Detail Author Start: 12-24-2032 Screening for malignant neoplasm of colon [facility] Start: 03-16-2026 Glaucoma screening Diabetes: Retinopathy Screening [facility] Start: 11-08-2025 Screening for osteoporosis Bone Density Scan [facility] Start: 04-26-2025 End: 04-26-2025 Patient encounter procedure 04/26/2025 8:35 AM EST Office Visit [facility] [address] [place] [phone] Laura Barrow MD [address] [place] [address] [facility] Start: 12-14-2024 End: 12-14-2024 Patient encounter procedure 12/14/2024 10:30 AM EDT Office Visit [facility] [address] [place] [address] Missy Khoury MD [address] [facility] [address] [place] [address] [facility] Start: 11-14-2024 End: 11-14-2024 Patient encounter procedure 11/14/2024 9:30 AM EDT Office Visit [facility] [address] [place] [phone] Nirav Bello, DO [address] [place] [address] [facility] Start: 11-09-2024 End: 11-09-2024 Patient encounter procedure 11/09/2024 9:30 AM EDT Office Visit [facility] [address] [place] [phone] Nirav Bello, [address] [place] [address] [facility] Start: 10-31-2024 Urine screening for protein Diabetes: Urine Protein Screening [facility] Healthcare Start: 10-26-2024 End: 10-26-2024 Patient encounter procedure [facility] Comment on above: Arrived Start: 10-02-2024 End: 10-02-2024 Patient encounter procedure 10/02/2024 11:45 AM EDT Office Visit [facility] [address] [place] [address] Missy Khoury MD [address] [place] [address] [facility] Start: 09-22-2024 COVID-19 Vaccine ( season) COVID-19 Vaccine () [facility] Start: 09-13-2024 End: 09-13-2024 Patient encounter procedure [facility] Comment on above: Arrived Start: 08-30-2024 End: 08-30-2024 Patient encounter procedure 08/30/2024 10:30 AM EDT Office Visit [facility] [address] [place] [address] Laura Barrow MD [address] [place] [address] [facility] Start: 08-09-2024 [facility] Start: 08-08-2024 Hemoglobin A1c measurement Diabetes: Hemoglobin A1C [facility] Start: 07-26-2024 End: 07-26-2024 Patient encounter procedure 07/26/2024 2:50 PM EST Office Visit [facility] [address] [place] [address] Laura Barrow MD [address] [place], [place] [phone] Arrived [facility] Comment on above: Arrived Start: 07-18-2024 End: 07-18-2024 Patient encounter procedure [facility] Start: 07-14-2024 End: 07-14-2024 Patient encounter procedure [facility] Comment on above: Arrived Start: 06-30-2024 End: 06-30-2024 Patient encounter procedure [facility] Comment on above: Arrived Start: 05-22-2024 End: 05-22-2024 Patient encounter procedure 05/22/2024 8:30 AM EST Office Visit [facility] [address] [place] [address] Nirav Bello, DO [address] [place] [address] [facility] Start: 05-12-2024 Medicare Annual Wellness (AWV) Medicare Annual Wellness (AWV) [facility] Start: 05-10-2024 End: 05-10-2024 Patient encounter procedure 05/10/2024 9:30 AM EST Office Visit [facility] [address] [place] [address] Nirav Bello, [address] [place] [address] Other thrombophilia (CMS/HCC) [facility] Comment on above: Other thrombophilia (CMS/HCC) Start: 05-01-2024 End: 05-01-2024 Patient encounter procedure 05/01/2024 1:45 PM EST Office Visit [address] [address] Missy Khoury MD [address] [place] [address] [facility] Start: 04-27-2024 End: 04-27-2024 Patient encounter procedure [facility] Comment on above: Arrived Start: 02-28-2024 End: 02-28-2024 Patient encounter procedure 02/28/2024 3:30 PM EDT Office Visit [address] [address] Missy Khoury MD [address] [place] [phone] [facility] Start: 02-21-2024 End: 02-21-2024 Patient encounter procedure 02/21/2024 7:45 AM EDT Appointment Josh Baez [facility] [place] [phone] [facility] Start: 02-07-2024 End: 02-07-2024 Professional / ancillary services management 02/07/2024 11:00 AM EDT Ancillary Procedure Dorothy Baez [facility] [place] [phone] [facility] Start: 02-07-2024 End: 02-07-2024 Patient encounter procedure 02/07/2024 10:15 AM EDT Appointment Josh Baez [facility] [place] [phone] [facility] Start: 02-07-2024 End: 02-07-2024 Patient encounter procedure Josh De La Cruz Start: 01-27-2024 End: 01-12-2025 Basic metabolic 2000 panel - Serum or Plasma Basic Metabolic Panel Lab Routine Uncontrolled hypertension Expected: 01/27/2024 (Approximate), Expires: 01/12/2025 [facility] Work Phone: Comment on above: Expected: 01/27/2024 (Approximate), Expi res: 01/12/2025 Start: 01-23-2024 COVID-19 Vaccine ( season) COVID-19 Vaccine () [facility] Start: 01-23-2024 Influenza vaccination Influenza Vaccine (#1) [facility] Start: 01-13-2024 End: 01-12-2025 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 PVC (premature ventricular contraction) Paroxysmal atrial fibrillation (Multi) Expected: 01/13/2024 (Approximate), Expires: 01/12/2025 [facility] Work Phone: Comment on above: Expected: 01/13/2024 (Approximate), Expi res: 01/12/2025 Start: 01-13-2024 End: 01-12-2026 NM Heart Perfusion W stress and W radionuclide IV Nuclear Stress Test Cardiac Nuclear Medicine Routine PVC (premature ventricular contraction) 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 Ventricular arrhythmia Abnormal electrocardiogram (ECG) (EKG) Expected: 01/13/2024 (Approximate), Expires: 01/12/2026 [facility] Work Phone: Comment on above: Expected: 01/13/2024 (Approximate), Expi res: 01/12/2026 Start: 01-13-2024 End: 01-12-2026 [facility] Transthoracic Transthoracic Echo Complete Echocardiography Routine PVC (premature ventricular contraction) Paroxysmal atrial fibrillation (Multi) Expected: 01/13/2024 (Approximate), Expires: 01/12/2026 [facility] Work Phone: Comment on above: Expected: 01/13/2024 (Approximate), Expi res: 01/12/2026 Start: 12-12-2023 Glaucoma screening Diabetes: Retinopathy Screening [facility] Start: 08-28-2023 COVID-19 Vaccine ( season) COVID-19 Vaccine () [facility] Start: 07-13-2023 FUV, Provider: Epifanio Davis, Status: Pen, Time: 8:50 AM FUV, Provider: Epifanio Davis, Status: Pen, Time: 8:50 AM formerly [facility] [address] [address] DO Work Phone: Start: 02-05-2023 Hemoglobin A1c measurement Diabetes: Hemoglobin A1C [facility] Start: 07-14-2022 FUV, Provider: Epifanio Davis, Status: Pen, Time: 9:10 AM FUV, Provider: Epifanio Davis, Status: Pen, Time: 9:10 AM formerly [facility] [address] DO Work Phone: Start: 06-24-2021 FUV, Provider: Epifanio Davis, Status: Pen, Time: 10:15 AM FUV, Provider: Epifanio Davis, Status: Pen, Time: 10:15 AM formerly [facility] [address] DO Work Phone: Start: 2013 RSV High Risk: (Elderly (60+) or Population) (1 - 1-dose 75+ series) RSV High Risk: (Elderly (60+) or Population) (1 - 1-dose 75+ series) [facility] Start: 1998 RSV patients and/or patients aged 60+ years (1 - 1-dose 60+ series) RSV patients and/or patients aged 60+ years (1 - 1-dose 60+ series) [facility] Start: 1960 DTaP/Tdap/Td Vaccines (1 - Tdap) DTaP/Tdap/Td Vaccines (1 - Tdap) [facility] Start: 1957 Urine screening for protein Diabetes: Urine Protein Screening [facility] Start: 1948 Diabetic foot examination Diabetes: Foot Exam [facility] Start: 1948 Glaucoma screening Diabetes: Retinopathy Screening [facility] Start: 1938 Annual wellness visit Welcome to Medicare Visit [facility] Start: 1938 Hemoglobin A1c measurement Diabetes: Hemoglobin A1C [facility] Start: 1938 Lipid panel Lipid Panel [facility] Start: 1938 Medicare Annual Wellness (AWV) Medicare Annual Wellness (AWV) [facility] Healthcare Start: 1938 Medicare Annual Wellness Visit Medicare Annual Wellness Visit (AWV) [facility] Start: 1938 Screening for malignant neoplasm of colon [facility] Start: 1938 Urine screening for protein Diabetes: Urine Protein Screening [facility] Dermatopathology exam Dermatopat hology exam Pathology and Cytology Timed Basal cell carcinoma (BCC) of skin of left upper extremity including shoulder Release Upon Ordering for 1 Occurrences starting 06/30/2024 [facility] [employer] Work Phone: Comment on above: Release Upon Ordering for 1 Occurrences starting 06/30/2024 Dermatopathology exam Dermatopat hology exam Pathology and Cytology Timed Neoplasm of unspecified behavior of bone, soft tissue, and skin Release Upon Ordering for 1 Occurrences starting 07/14/2024 [facility] [employer] Work Phone: Comment on above: Release Upon Ordering for 1 Occurrences starting 07/14/2024 Dermatopathology exam Dermatopat hology exam Pathology and Cytology Timed 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, including hip Release Upon Ordering for 1 Occurrences starting 07/26/2024 [facility] Phone: Comment on above: Release Upon Ordering for 1 Occurrences starting 07/26/2024 Dermatopathology exam Dermatopat hology exam Pathology and Cytology Timed Squamous cell carcinoma of skin of left upper limb, including shoulder Release Upon Ordering for 1 Occurrences starting 08/30/2024 [facility] Work Phone: Comment on above: Release Upon Ordering for 1 Occurrences starting 08/30/2024 Dermatopathology exam Dermatopat hology exam Pathology and Cytology Timed Neoplasm of unspecified behavior of bone, soft tissue, and skin Release Upon Ordering for 1 Occurrences starting 10/26/2024 [facility] Work Phone: Comment on above: Release Upon Ordering for 1 Occurrences starting 10/26/2024 HIV 1+2 Ab+HIV1 p24 Ag [Presence] in Serum or Plasma by Immunoassay [facility] Patient Education Know your Meds [facility] Work Phone: Patient referral [facility] Work Phone: Immunizations Immunization Date Immunization Notes Care Provider Estefanía eckert 03-25-2024 Seasonal trivalent influenza vaccine, adjuvanted, preservative free Missy Khoury MD Work Phone: [facility] Work Phone: 03-25-2024 influenza virus vacc ine, unspecified formulation Laura Barrow MD Work Phone: [facility] 03-20-2023 Influenza, Seasonal, Quadrivalent, Adjuvanted Nirav Bello DO Work Phone: [facility] 03-20-2023 influenza virus vacc ine, unspecified formulation Nirav Bello DO Work Phone: [facility] 04-03-2022 Moderna COVID-19 Biv al Booster 50 MCG/0.5ML Intramuscular Suspension Nirav Bello Work Phone: [place] [address] DO Work Phone: 03-10-2022 Fluad Quadrivalent 0 .5 ML Intramuscular Prefilled Syringe Nirav Bello Work Phone: [facility] 250 DO Work Phone: 12-19-2021 Moderna COVID-19 Vac cine 100 MCG/0.5ML Intramuscular Suspension Nirav Bello Work Phone: [facility] 250 DO Work Phone: 03-20-2021 Moderna COVID-19 Vac cine 100 MCG/0.5ML Intramuscular Suspension Nirav Vargas Ace Work Phone: [facility] 03-19-2021 Moderna SARS-CoV-2 Booster Vaccination Nirav Bello DO Work Phone: [facility] 03-12-2021 influenza, high dose seasonal, preservative-free Nirav Downingman Work Phone: [facility] 02-26-2021 Fluzone High-Dose Quadrivalent 0.7 ML Intramuscular Suspension Prefilled Syringe Nirav Vargas Ace Work Phone: [facility] 250 DO Work Phone: 07-12-2020 COVID-19 mRNA-1273 (Moderna) [facility] 06-15-2020 COVID-19 mRNA-1273 (Moderna) [facility] 03-15-2020 Fluad Quadrivalent 0 .5 ML Intramuscular Prefilled Syringe Nirav Alicia DowningAce Work Phone: [facility] 02-24-2020 influenza, high dose seasonal, preservative-free Nirav Downingman Work Phone: [facility] 250 DO Work Phone: 03-11-2019 zoster vaccine recombinant Nirav Bello Work Phone: [facility] 250 DO Work Phone: 03-01-2019 influenza, high dose seasonal, preservative-free Nirav Bello Work Phone: [facility] 250 DO Work Phone: 02-21-2019 influenza, high dose seasonal, preservative-free Nirav Bello Work Phone: [place] [address] DO Work Phone: 12-22-2018 zoster vaccine recombinant Nirav Bello Work Phone: [place] [address] DO Work Phone: 02-25-2018 influenza, high dose seasonal, preservative-free Nirav Bello Work Phone: [place] [address] DO Work Phone: 03-16-2017 influenza, high dose seasonal, preservative-free Nirav Bello Work Phone: [place] [address] DO Work Phone: 05-24-2016 pneumococcal conjuga te vaccine, 13 valent Nirav Bello Work Phone: [facility] 03-30-2016 influenza, high dose seasonal, preservative-free Nirav Bello DO Work Phone: [facility] 05-02-2015 seasonal influenza, intradermal, preservative free Nirav Bello DO Work Phone: [facility] 03-22-2015 influenza, high dose seasonal, preservative-free Nirav Bello Work Phone: [place] [address] DO Work Phone: 12-14-2013 pneumococcal conjuga te vaccine, 13 valent Nirav Bello DO Work Phone: [facility] 10-10-2012 zoster vaccine, live Nirav Bello DO Work Phone: [facility] 05-24-2012 pneumococcal polysaccharide vaccine, 23 valent Nirav Vargas Ace Work Phone: [facility] 05-31-2009 novel influenza-H1N1 -09, preservative-free, injectable iNrav Bello Work Phone: -[facility] [address] DO Work Phone: 07-23-2003 pneumococcal polysaccharide vaccine, 23 valent Nirav Ace DO Work Phone: [facility] Healthcare Payers Date Payer Category Payer Self-pay [id number] 2023 Medicare (Managed Care) [employer] [facility] MEDICARE [id number] 2022 Medicaid [employer] MEDICARE A DVANTAGE [id number] 2022 Medicare [id number] 1959 Private Health Insurance [facility] [id number] 1938 Unknown [id number] 2.16.840.1.360688.3.579.2. 356 1938 Unknown [id number] 2.16.840.1.118991.3.579.2. 593 1938 Unknown [id number] 2.16.840.1.712432.3.579.2. 593 1938 Unknown [id number] 2.16.840.1.655936.3.579.2. 593 1938 Unknown [id number] 2.16.840.1.873358.3.579.2. 593 1938 Unknown [id number] 2.16.840.1.330511.3.579.2. 593 1938 Unknown [id number] 2.16.840.1.121173.3.579.2. 1246 1938 Unknown [id number] 2.16.840.1.783290.3.579.2. 1246 1938 Unknown [id number] 2.16.840.1.376994.3.579.2. 1246 1938 Unknown [id number] 2.16.840.1.579485.3.579.2. 1246 1938 Unknown [id number] 2.16.840.1.278011.3.579.2. 1246 1938 Unknown [id number] 2.16.840.1.276512.3.579.2. 1246 1938 Unknown [id number] 2.16.840.1.082115.3.579.2. 1244 1938 Unknown [id number] 2.16.840.1.245371.3.579.2. 1244 1938 Unknown [id number] 2.16.840.1.323614.3.579.2. 1244 1938 Unknown [id number] 2.16.840.1.984119.3.579.2. 1244 1938 Unknown [id number] 2.16.840.1.192433.3.579.2. 1259 1938 Unknown [id number] 2.16.840.1.605443.3.579.2. 1259 1938 Unknown [id number] 2.16.840.1.196362.3.579.2. 1259 1938 Unknown [id number] 2.16.840.1.765531.3.579.2. 125 1938 Unknown [id number] 2.16.840.1.704125.3.579.2. 125 1938 Unknown [id number] 2.16.840.1.714935.3.579.2. 1258 1938 Unknown [id number] 2.16.840.1.635293.3.579.2. 125 1938 Unknown [id number] 2.16.840.1.306070.3.579.2. 1258 1938 Unknown [id number] 2.16.840.1.086575.3.579.2. 1259 1938 Unknown [id number] 2.16.840.1.713544.3.579.2. 125 1938 Unknown [id number] 2.16.840.1.429157.3.579.2. 125 1938 Unknown [id number] 2.16.840.1.967159.3.579.2. 1259 Medicare Medicare [id number] Private Health Insurance Self Pay [facility] [id number] Unknown [employer] Unknown [id number] 2.16.840.1.706808.3.579.2. 531 Unknown [id number] 2.16.840.1.973092.3.579.2. 531 Social History Date Type Detail Facility Tobacco smoking stat us NJIS Unknown if ever smoked [facility] Start: 1940 Sex Assigned At Male F [facility] Start: 11-10-2022 End: 07-13-2023 Never a smoker Never a smoker -[facility] 250 DO Work Phone: Comment on above: 2-3 drinks a month; Start: 12-05-2021 End: 11-15-2023 Tobacco smoking status NHIS Ex-smoker (finding) [facility] Start: 11-10-2022 End: 07-13-2023 Sex Assigned At [facility] Other Start: [birth year]-1956 End: 05-24-1989 History of tobacco use Current smoker [facility] Work Phone: Start: 06-12-1958 End: 05-24-1989 History of tobacco use Cigarette Smoker [facility] Work Phone: Start: 07-13-2023 End: 11-15-2023 Tobacco use and exposure Smokeless tobacco non-user [facility] Work Phone: Start: 07-13-2023 End: 10-02-2024 Alcohol intake Lifetime non-drinker (finding) [facility] Work Phone: Start: 1940 Sex Assigned At Not on file [facility] Work Phone: Start: 07-03-2023 End: 10-02-2024 Exposure to SARS-CoV-2 (event) Not sure [facility] History of tobacco use Pipe Smoker [facility] History of tobacco use Passive smoker [facility] Start: 01-11-2024 End: 10-26-2024 Alcoholic beverage intake Current drinker of alcohol [...] He [facility] Start: 08-09-2024 Sex Male (finding) [facility] Goals Date Patient Goal Desired Activity /State Clinical Notes 07-14-2022 to 10-26-2024 Laura Barrow MD - 10/26/2024 9:45 AM EDTGjareth Khoury MD - 10/02/2024 11:45 AM EDTPatient Marika Talbert MD - 09/13/2024 10:45 AM EDT Note Date & Type Note Facility 10-26-2024 History of Present illness Narrative Images from [...] benign pigmented lesions that occur on sun-exposed and sun-damaged skin. No treatment is necessary. Recommended regular use of broad spectrum sunscreen SPF 30 or higher 3. ACTINIC KERATOSIS (2) Chest - Medial (Center), Right Knee - Anterior Erythematous scaly papules Patient was counseled regarding these sun-induced growths that can develop into squamous cell carcinoma if left untreated. Discussed treatment options, including cryotherapy and topical preparations. 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 [...] month skin check documented in this encounter [facility] 10-02-2024 History of Present illness Narrative Images [...] Mixed hyperlipidemia 7. Paroxysmal atrial fibrillation 8. Srp-qtmijze-xaujnuuzn diabetes 9. [id number] score of 4. 10. Long-term anticoagulation with rivaroxaban 11. EKG June 2023-[place] formed PVCs in a pattern of ventricular [...] B-12) 1,000 mcg tablet 1 tablet, Daily sfirvx-okkwcahx-tenxbmf (Creon) 24,000-76,000 -120,000 unit capsule 1 capsule, [...] the presence of Dr. Missy Khoury MD, FAC. I, Dr. Missy Khoury MD, FACC, personally performed the services described in the documentation as scribed by April Cheng LPN in my presence, and confirm it is both accurate and complete. documented in this encounter [facility] Work Phone: 10-02-2024 Instructions April Love LPN [...] visit. BMI normal documented in this encounter [facility] Work Phone: 09-13-2024 History of Present illness [...] skin check scheduled documented in this encounter [facility] 09-04-2024 Evaluation note Diagnosis PAF (paroxysmal atrial fibrillation) (CMS/HCC)- Primary Atrial fibrillation Stage 3a chronic kidney disease (HCC) ([facility]/HCC) Type 2 diabetes mellitus with other specified complication, without long-term current use of insulin Mixed hyperlipidemia (CMS/HCC) Mixed hyperlipidemia Exocrine pancreatic insufficiency (CMS/HCC) Other specified disease of pancreas Primary hypertension ([facility]/HCC) Unspecified essential hypertension documented in this encounter [facility] HospitalHekytcqsnd16-16-2525 History of Present illness Narrative* Laura Barrow [...] left upper limb, including shoulder Left Shoulder Hatch macule at biopsy site Skin excision Lesion [...] 1.2 x 1.1 cm Previous accession number: [id number] Follow up: 14 days for s/r documented in this encounterRank[facility] [id number] History of Present illness Narrative* Laura Barrow [...] SCC Check Margins: yes Previous accession number: [id number] Shave excision completed today, see procedure note. Return to clinic prior to next scheduled visit for any signs or symptoms of recurrence, reviewed the signs and symptoms. Patient will be notified of results. Next Visit: as scheduled documented in this encounterRanken Jordan [facility] [id number] History of Present illness Narrative* Laura Barrow [...] Visit: pending biopsy results documented in this encounterRanken Jordan Pediatric Specialty [id number] History of Present illness Narrative* Laura Barrow [...] upper extremity including shoulder Left Upper Arm Hatch macule at biopsy site. Skin excision Lesion [...] BCC Check Margins: Yes Previous accession number: [id number] 2. Skin neoplasm (2) Left shoulder Erythematous, crusted papule. Right lower leg Erythematous, crusted papule. Biopsies deferred until suture removal due to insurance restrictions. Follow up: 14 days for s/r documented in this [facility]12-18-2024 History of Present illness Narrative* Nirav Bello, DO - 05/10/2024 9:30 AM EST Images from the original note were not included. Epifanio Walsh is a 83 y.o. male presents with chief complaint of Hospital Follow-up (Pt presents hospital follow up at [facility] on 05/03 for hypertension. Pt states he [...] 10/01/2017 CATARACT EXTRACTION Right 10/28/2017 per in [place], [place]. COLONOSCOPY 2010 COLONOSCOPY 11/28/[address] 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 documented in this encounterRanken Jordan Pediatric Specialty [id number] History of Present illness Narrative* Missy Khoury [...] Mixed hyperlipidemia 7. Paroxysmal atrial fibrillation 8. Opl-youvuco-kqppviyxt diabetes 9. [id number] score of 4. 10. Long-term anticoagulation with rivaroxaban 11. 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 11. Former [...] exam, discussion and plan. [facility] Work Phone: 1(658) 175-451012-09-2024 Instructions* Patient Instructions* Britney Salgado LPN - [...] time of your visit. [facility] Work Phone: [phone]) 705-748208-22-2024 History of Present illness Narrative* Missy Khoury [...] Mixed hyperlipidemia 7. Paroxysmal atrial fibrillation 8. Zxj-utgjebi-sfiesydsi diabetes 9. LXD2AW3-UZCm score of 4. 10. Long-term anticoagulation with rivaroxaban 11. 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 Paroxysmal atrial fibrillation (Multi) Follow Up In Cardiology magnesium oxide (Mag-Ox) 400 mg (241.3 mg magnesium) tablet Transthoracic Echo Complete metoprolol succinate XL (Toprol-XL) 50 mg 24 hr tablet Holter Or Event Boat Mechanic CANCELED: Nuclear Stress Test 4. 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 High [...] exam, discussion and plan. [facility]: 1(897) 122-372708-22-2024 Instructions* Patient Instructions* Fay Edge CMA - [...] time of your visit. [facility]: 1(943) 510-304602-20-2024 History of Present illness Narrative* Epifanio Davis [...] by mouth once daily., Disp: , Rfl: dodaos-qbezhbbc-ptmkjpr (Creon) 24,000-76,000 -120,000 unit capsule, Take 1 [...] signing my name below, Marisa Edwards LPN Scribe attest that this documentation has been [...] exam, discussion and plan. [facility] Work Phone: 1(731) 285-898802-20-2024 Instructions* Patient Instructions* Dominick Suazo MA - [...] time of your visit. [facility]: 1(178) 162-310006-27-2023 Evaluation note* Encounter Date Diagnosis Assessment Notes Treatment Notes Treatment Clinical Notes Oct, Change in bowel habits (ICD-10 - R19.4) Oct, Diverticulosis (ICD-10 - K57.90) Oct, IBS (irritable bowel syndrome) (ICD-10 - K58.9) Oct, Pancreatic insufficiency (ICD-10 - K86.89) [email or web address] Other 02-21-2023 History of Present illness Narrative* [...] year formerly [facility] 250 DO Work Phone: Evaluation noteNo assessment information available [facility] Work Phone: Evaluation noteNo InformationN[facility] [employer] Other Evaluation note* Diagnosis Benign essential hypertension- Primary Essential hypertension, benign Mixed hyperlipidemia Paroxysmal atrial fibrillation (CMS/HCC) Atrial fibrillation Former smoker Personal history of tobacco use, presenting hazards to health [facility] Work Phone: Evaluation note* Diagnosis Encounter to [...] without long-term current use of insulin (Multi) 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 Former smoker Personal history of tobacco use, presenting hazards to health Body mass index (BMI) of 23.0 to 23.9 in adult documented [facility] encounter [facility] Work Phone: Evaluation note* Diagnosis Ventricular arrhythmia- Primary Unspecified cardiac dysrhythmia PVC (premature ventricular contraction) Other premature beats Paroxysmal atrial fibrillation (Multi) Atrial fibrillation 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 High risk medication use Mixed hyperlipidemia Uncontrolled hypertension Former smoker Personal history of tobacco use, presenting hazards to health Type 2 diabetes mellitus without complication, without long-term current use of insulin (Multi) Stage 3a chronic kidney disease (Multi) Prostate cancer (Multi) Malignant neoplasm of prostate Abnormal electrocardiogram (ECG) (EKG) documented in this encounter [facility] Work Phone: Evaluation note* Diagnosis PVC (premature ventricular contraction) Other premature beats 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 Ventricular arrhythmia Unspecified cardiac dysrhythmia Abnormal electrocardiogram (ECG) (EKG) documented in [facility] encounter [facility] Work Phone: Evaluation note* Diagnosis PVC (premature ventricular contraction) Other premature beats Paroxysmal atrial fibrillation (Multi) Atrial fibrillation documented [facility] encounter [facility] Work Phone: Evaluation note* Diagnosis Primary hypertension (CMS/HCC)- Primary Unspecified essential hypertension PAF (paroxysmal atrial fibrillation) (CMS/HCC) Atrial fibrillation Stage 3a chronic kidney disease (HCC) (CMS/HCC) Type 2 diabetes mellitus with other specified complication, without long-term current use of insulin (CMS/HCC) documented in this encounter [facility] HealthcareEvaluation note* Diagnosis Allergic sinusitis- [...] pain, unspecified type documented in this encounter [facility] HealthcareEvaluation note* Diagnosis Basal cell carcinoma (BCC) of skin of left upper extremity including shoulder- Primary Skin neoplasm Neoplasm of unspecified nature of bone, soft tissue, and skin documented in this encounter [facility] HealthcareEvaluation note* Diagnosis Neoplasm of unspecified behavior of bone, soft tissue, and skin- Primary Encounter for removal of sutures documented in this encounter [facility] HealthcareEvaluation note* Diagnosis 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, including hip- Primary documented in this encounter [facility] HealthcareEvaluation note* Diagnosis Squamous cell carcinoma of skin of left upper limb, including shoulder- Primary documented in this encounter [facility] HealthcareEvaluation note* Diagnosis Encounter for removal of sutures documented in this encounter [facility] HealthcareEvaluation note* Diagnosis Paroxysmal atrial fibrillation (Multi) [...] documented [facility] encounter [facility] Work Phone: Evaluation note* Diagnosis Seborrheic keratosis- Primary Lentigines Actinic keratosis Neoplasm of unspecified behavior of bone, soft tissue, and skin History of malignant neoplasm of skin Personal history of other malignant neoplasm of skin documented in this encounter [facility] HealthcareHistory general Narrative - Reported* Type Description [...] Right cataract surgery per Dr.Z santamaria in [place], [place]. 10-28-17 Surgical History Mohs repair / left upper lip Hospitalization History see above [employer] Other History of Present illness NarrativeReturns in [...] we suggest continued therapy as before without change.-[facility] [place] [address] DO Work Phone: Hospital Discharge instructions Additional [...] the incision. PLEASE NOTIFY OUR OFFICE at [phone] if you: -Develop a fever of 101 [...] rate. FOLLOW UP -Call the office at [phone] for a follow up appointment 1 week. 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 Missy Khoury MD [address] [address] Referral ID Status Reason Start Date Expiration Date V isits Requested Visits Authorized [id number] Pending Review 01/13/2024 01/12/2025 1 1 Specialty Diagnoses / Procedures Referred By Contac t Referred To Contact Cardiology Diagnoses PVC (premature ventricular contraction) Paroxysmal atrial fibrillation (Multi) Procedures Transthoracic Echo Complete AK ECHO TTHRC R-T 2D W/WOM-MODE COMPL SPEC&COLR D Missy Khoury MD [address] [place] [address] Referral ID Status Reason Start Date Expiration Date Visits Requested Visits Authorized [id number] Authorized Perform Procedure 01/13/2024 01/12/2025 1 1 Specialty Diagnoses / Procedures Referred By Contac t Referred To Contact Cardiology Diagnoses Paroxysmal atrial fibrillation (Multi) Procedures Follow Up In Cardiology Missy Khoury MD [address] [address] Missy Khoury MD [address] [place] [address] Referral ID Status Reason Start Date Expiration Date V isits Requested Visits Authorized [id number] Authorized 01/13/2024 01/12/2025 1 1 Specialty Diagnoses / Procedures Referred By Contac t Referred To Contact Diagnoses Paroxysmal atrial fibrillation (CMS/HCC) Procedures ECG 12 Lead Epifanio Davis MD [address] [facility] 2, [address] [place] [address] Referral ID Status Reason Start Date Expiration Date V isits Requested Visits Authorized [id number] Authorized 07/13/2023 07/12/2024 1 1 Specialty Diagnoses / Procedures Referred By Contac t Referred To Contact Cardiology Diagnoses Paroxysmal atrial fibrillation (CMS/HCC) Procedures Follow Up In Cardiology Epifanio Davis MD [address] [place] [address] Epifanio Davis MD 703 [facility] 2, [address] [address] Referral ID Status Reason Start Date Expiration Date V isits Requested Visits Authorized [id number] Authorized 07/13/2023 07/12/2024 1 1 Additional Source [...] Active Jj Garcia MD Attending Provider Active Programmer Numerical Control Relationship Specialty Start Date End Date Nirav Bello DO [address] [facility] [address] [place] [address] PCP - General 05/24/99 Team Status: Inactive Member Role Status Dates Nirav Bello DO Primary Care Provider Active Start: September 13, 2023 End: September 13, 2023 NON STAFF Attending Provider Active Start: 2023 End: September 13, 2023 Programmer Numerical Control Relationship Specialty Start Date End Date Nirav Bello DO [address] [facility] [address] [place] [address] PCP - [employer] 05/24/20 Nirav Bello DO [address] [facility] [address] [place] [address] PCP - General Internal Medicine 11/10/22 Marianne Davis MD [address] [address] Referring Physician Cardiology 05/12/23 Programmer Numerical Control Relationship Specialty Start Date End Date Nirav Bello DO [address] [place] [address] PCP - [employer] 05/24/20 Nirav Bello DO [address] [place] [address] PCP - General Internal Medicine 11/10/22 Marianne Davis MD [address] [address] Referring Physician Cardiology 05/12/23 Programmer Numerical Control Relationship Specialty Start Date End Date Nirav Bello DO [address] [place] [address] PCP - General 05/24/99 Programmer Numerical Control Relationship Specialty Start Date End Date Nirav Bello DO [address] [place] [address] PCP - General 05/24/99 Programmer Numerical Control Relationship Specialty Start Date End Date Nirav Bello DO [address] [place] [address] PCP - General 05/24/99 Programmer Numerical Control Relationship Specialty Start Date End Date Nirav Bello DO [address] [place] [address] PCP - General 05/24/99 Programmer Numerical Control Relationship Specialty Start Date End Date Nirav Bello DO [address] [place] [address] PCP - General 05/24/99 Programmer Numerical Control Relationship Specialty Start Date End Date Nirav Bello DO [address] [place] [address] PCP - General 05/24/99 Programmer Numerical Control Relationship Specialty Start Date End Date Nirav Bello DO [address] [place] [address] PCP - General 05/24/99 Programmer Numerical Control Relationship Specialty Start Date End Date Nirav Bello DO [address] [place] [address] PCP - [employer] 05/24/20 Nirav Bello DO [address] [place] [address] PCP - General Internal Medicine 11/10/22 Marianne Davis MD [address] [place] [address], [place] [address] Referring Physician Cardiology 05/12/23 Programmer Numerical Control Relationship Specialty Start Date End Date Nirav Bello DO [address] [place] [address] PCP - [employer] 05/24/20 Nirav Bello DO [address] [place] [address] PCP - General Internal Medicine 11/10/22 Marianne Davis MD [address] [facility] [address] [place] [address] Referring Physician Cardiology 05/12/23 Programmer Numerical Control Relationship Specialty Start Date End Date Nirav Bello DO [address] [place] [address] PCP - [employer] 05/24/20 Nirav Bello DO [address] [place] [address] PCP - General Internal Medicine 11/10/22 Marianne Davis MD [address] [address] Referring Physician Cardiology 05/12/23 Programmer Numerical Control Relationship Specialty Start Date End Date Nirav Bello DO [address] [place] [address] PCP - [employer] 05/24/20 Nirav Bello DO [address] [place] [address] PCP - General Internal Medicine 11/10/22 Marianne Davis MD [address] [facility] [address] [place] [address] Referring Physician Cardiology 05/12/23 Programmer Numerical Control Relationship Specialty Start Date End Date Nirav Bello DO [address] [place] [address] PCP - [employer] 05/24/20 Nirav Bello DO [address] [place] [address] PCP - General Internal Medicine 11/10/22 Marianne Davis MD [address] [address] Referring Physician Cardiology 05/12/23 Programmer Numerical Control Relationship Specialty Start Date End Date Nirav Bello DO [address] [place] [address] PCP - [employer] 05/24/20 Nirav Bello DO [address] [place] [address] PCP - General Internal Medicine 11/10/22 Marianne Davis MD [address] [address] Referring Physician Cardiology 05/12/23 Team Status: Inactive Member Role Status Dates Nirav Bello DO Primary Care Provider Active Start: August 09, 2024 End: August 09, 2024 Colin Thompson MD Attending Provider Active Start: August 09, 2024 End: August 09, 2024 Programmer Numerical Control Relationship Specialty Start Date End Date Nirav Bello DO [address] [place] [address] PCP - [employer] 05/24/20 Nirav Bello DO [address] [place] [address] PCP - General Internal Medicine 11/10/22 Marianne Davis MD [address] [address] Referring Physician Cardiology 05/12/23 Programmer Numerical Control Relationship Specialty Start Date End Date Nirav Bello DO [address] [place] [address] PCP - [employer] 05/24/20 Nirav Bello DO [address] [place] [address] PCP - General Internal Medicine 11/10/22 Marianne Davis MD [address] [address] Referring Physician Cardiology 05/12/23 Programmer Numerical Control Relationship Specialty Start Date End Date Nirav Bello DO [address] [place] [address] PCP - [employer] 05/24/20 Nirav Bello DO [address] [place] [address] PCP - General Internal Medicine 11/10/22 Marianne Davis MD [address] [address] Referring Physician Cardiology 05/12/23 Programmer Numerical Control Relationship Specialty Start Date End Date Nirav Bello DO [address] [place] [address] PCP - General 05/24/99 Programmer Numerical Control Relationship Specialty Start Date End Date Nirav Bello DO [address] [place] [address] PCP - [employer] 05/24/20 Nirav Bello DO [address] [place] [address] PCP - General Internal Medicine 11/10/22 Marianne Davis MD 703 [facility] [address] [place] [address] Referring Physician Cardiology 05/12/23 Programmer Numerical Control Relationship Specialty Start Date End Date Nirav Bello DO [address] [place] [address] PCP - [employer] 05/24/20 Nirav Bello DO [address] [place] [address] PCP - General Internal Medicine 11/10/22 Marianne Davis MD [address] [address] Referring Physician Cardiology 05/12/23 Goals (unrecognized section [...] section and content) DATE CREATED AUTHOR 07/15/2022 [facility] DATE CREATED AUTHOR AUTHOR'S ORGANIZ ATION 07/15/2022 [employer] DATE CREATED AUTHOR AUTHOR'S ORGANIZ ATION 09/10/2022 [facility] DATE CREATED AUTHOR AUTHOR'S ORGANIZ ATION 02/25/2024 [facility] DATE CREATED AUTHOR AUTHOR'S ORGANIZ ATION 08/21/2024 [facility] DATE CREATED AUTHOR AUTHOR'S ORGANIZ ATION 10/03/2024 [facility] DATE CREATED AUTHOR AUTHOR'S ORGANIZ ATION 10/27/2024 [facility] EPIC REASON FOR VISIT (unrecogniz ed section and content) Reason Comments Follow-up 5 month Follow up fo r Hypertension Specialty Diagnoses / Procedures Referred By Contac t Referred To Contact Cardiology Diagnoses Paroxysmal atrial fibrillation (Multi) Procedures Follow Up In Cardiology Missy Khoury MD [address] [address] Phone: tel: fax: Missy Khoury MD [address] [address] Phone: tel: fax: Referral ID Status Reason Start Date Expiration Date V isits Requested Visits Authorized [id number] Authorized 05/01/2024 05/01/2025 1 1 Reason Comments Annual Exam Specialty Diagnoses / Procedures Referred By Contac t Referred To Contact Diagnoses Paroxysmal atrial fibrillation (CMS/HCC) Procedures ECG 12 Lead Epifanio Davis MD 703 [facility] 2, [facility] [address] [place] [address] Referral ID Status Reason Start Date Expiration Date V isits Requested Visits Authorized [id number] Authorized 07/13/2023 07/12/2024 1 1 Reason Comments Follow-up Follow up after test ing Referral ID Status Reason Start Date Expiration Date V isits Requested Visits Authorized [id number] Authorized 01/13/2024 01/12/2025 1 1 Reason Comments Follow-up Add on Specialty Diagnoses / Procedures Referred By Contac t Referred To Contact Radiology Diagnoses PVC (premature ventricular contraction) 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 Ventricular arrhythmia Abnormal electrocardiogram (ECG) (EKG) Procedures Nuclear Stress Test Nuclear Stress Test CHG MYOCARDIAL SPECT MULTIPLE STUDIES Missy Khoury MD [address] [address] Referral ID Status Reason Start Date Expiration Date Visits Requested Visits Authorized [id number] Authorized Perform Procedure 01/13/2024 01/12/2025 5 5 Specialty Diagnoses / Procedures Referred By Contac t Referred To Contact Cardiology Diagnoses PVC (premature ventricular contraction) Paroxysmal atrial fibrillation (Multi) Procedures Transthoracic Echo Complete AK ECHO TTHRC R-T 2D W/WOM-MODE COMPL SPEC&COLR D Missy Khoury MD 9[address] [facility] [address] [place] [address] Referral ID Status Reason Start Date Expiration Date Visits Requested Visits Authorized [id number] Authorized Perform Procedure 01/13/2024 01/12/2025 1 1 Reason Comments Hospital Follow-up Patient presents to[facility] follow up 01/10/24 for hypertension. He was in the ER the previous week for a-fib. He was started on Abiraterone recently and his BP went up consistently in the 160s. He sees cardiology Thurs for the a-fib. Reason Comments Hospital Follow-up Pt presents hospital follow up at [facility] on 05/03 for hypertension. Pt states he BP still feels elevated, although he hasn't been checking he BP at home. Pt denies chest pain, SOB or blurry vision Reason Comments Excision Reason Comments Follow-up Reason Comments Hypertension Patient's BP reading s 190/90 in the evenings. Patient was seen at [facility] 08/01/24 for hypertension and Norvasc 5mg [...] BE BASED ON THE PRIMARY CLINICAL RECORDS. [employer] provides no warranty or guarantee of the accuracy or completeness of information in this document.
[2024-10-30 08:06] LABS: Basophils Absolute Auto 0.1 10^3/uL (0.0-0.1); Basophils Percent Auto 1.1 % (0.2-2.0); Eosinophils Absolute Auto 0.4 10^3/uL (0.0-0.7); Hematocrit 36.2 % (42.0-54.0); Hemoglobin 12.3 g/dL (14.0-18.0); Immature Granulocytes Abs Auto 0.06 10^3/uL (0.00-0.03); Immature Granulocytes Pct Auto 0.7 % (0.0-0.5); Lymphocytes Absolute Auto 2.8 10^3/uL (1.2-3.8); Lymphocytes Percent Auto 31.2 % (20.5-60.0); Mean Corpuscular Hemoglobin 31.6 pg (25.9-34.0); Mean Corpuscular Volume 93.1 fL (80.0-94.0); Mean Platelet Volume 10.5 fL (9.5-13.5); Monocytes Absolute Auto 0.6 10^3/uL (0.3-0.8); Monocytes Percent Auto 7.1 % (1.7-12.0); Neutrophils Absolute Auto 5.1 10^3/uL (1.4-6.5); Neutrophils Percent Auto 55.9 % (43.0-75.0); Platelet Count 206 10^3/uL (150-450); Red Blood Count 3.89 10^6/uL (4.70-6.10); Red Cell Distribution Width 14.1 % (11.0-15.0); White Blood Count 9.1 10^3/uL (4.0-11.0)
[2024-10-30 11:36] LABS: Alanine Aminotransferase 36 U/L (16-63); Albumin Level 3.3 g/dL (3.4-5.0); Alkaline Phosphatase 64 U/L (46-116); Anion Gap 10.4; Aspartate Amino Transferase 23 U/L (15-37); BUN Creatinine Ratio 23.1; Bilirubin Total 0.6 mg/dL (0.2-1.0); Calcium 8.8 mg/dL (8.5-10.1); Carbon Dioxide 30.4 mmol/L (21.0-32.0); Chloride 106 mmol/L (98-107); Chol HDL Ratio 1.9; Cholesterol 132 mg/dL (<=200); Estimated GFR (African America >60 (>=60 mL/min/1.73m^2); Estimated GFR (Non-African Ame >60 (>=60 mL/min/1.73m^2); Globulin 3.2 g/dL; Glucose 154 mg/dL (74-106); HDL Cholesterol 70 mg/dL (40-60); Potassium 3.8 mmol/L (3.5-5.1); Sodium 143 mmol/L (136-145); Thyroid Stimulating Hormone 1.442 uIU/mL (0.358-3.740); Total Protein 6.5 g/dL (6.4-8.2); Triglycerides 77 mg/dL (<=150); VLDL CHOLESTEROL 15.4 mg/dL
[2024-10-30 15:17] LABS: Creatinine Urine Random 19.21 mg/dL (20.00-300.00); Microalbum Creatinine Ratio Ur 67.6 mg/g (0.0-29.9); Microalbumin Urine Random <1.3 mg/dL (<=30.0)
== END 2024-10-30 07:10 | disposition home or self-care (01) ==
PROVIDERS: PCP Internal Medicine; Visit Provider Internal Medicine
DX: E11.22 Type 2 diabetes mellitus with diabetic chronic kidney disease (principal); N18.31 Chronic kidney disease, stage 3a; E78.2 Mixed hyperlipidemia; I12.9 Hypertensive chronic kidney disease with stage 1 through stage 4 chronic kidney disease, or unspecified chronic kidney disease
CPT/HCPCS: 36415; 80053; 80061; 82043; 82570; 84443; 85025

== ENCOUNTER 2024-10-30 07:17 | Outpatient (OUT) | payer MEDICARE, SELFPAY ==
--- OUTSIDE RECORDS SUMMARY | 2024-10-26 09:45 | XMS_ITS | Encounter Summary ---
Author Organization [facility] Address [address] [place] [address] Care Team Providers Care Full Time Name Role Phone Nirav Duenas DO Unavailable [phone] Nirav Duenas DO Primary Care Provider [phone] Marianne Davis MD Unavailable [phone] Encounter Details Date Type Department Care Team (Late st Contact Info) Description 10/26/2024 9:45 AM EDT Office Visit [facility] [address] [facility] [address] [place] [phone] Charleen Hensley MD [address] [facility] [address] [place] [address] Seborrheic keratosis (Primary Dx); Lentigines; Actinic keratosis; Neoplasm of unspecified behavior of bone, soft tissue, and skin; History of malignant neoplasm of skin Social History Tobacco Use Types Packs/Day Years [...] on file documented as of this encounter Progress Notes * Charleen Hensley MD - 10/26/2024 9:45 AM EDT Images from the original note were not included. Skin Check Location: Patient requests a full body skin examination Dermatologic history: history of Actinic Keratosis, history of Basal Cell Carcinoma, history of Squamous Cell Carcinoma. Needs refills of Efudex Last visit: Last skin check 04/2024, has been in for several surgical removals since Established patient Lesions: Location: Left cheek Duration: Three weeks Quality: Sore Modifying factors: Grew rather quickly Associated symptoms: Red bump Treatments: None All pertinent medical history, medications, and allergies were reviewed. General Exam: alert, oriented to person, place, and time, normal affect, well appearing Scalp, Examined Right leg Examined Head, Face Examined Left leg Examined Neck Examined Right foot Examined Chest Examined Left foot Examined Back Examined Buttocks Examined Patient kept underwear on Abdomen Examined Digits,nails: Examined Right arm Examined Left arm Examined Hands Examined Skin Exam 1. SEBORRHEIC KERATOSIS Generalized Stuck on verrucous, leonardo-brown papules and plaques. Patient was counseled regarding these benign growths. Removal is normally not necessary, but they may be removed if they are symptomatic or for cosmetic reasons. 2. LENTIGINES Generalized Scattered leonardo macules in sun-exposed areas. The patient was informed that lentigines are benign pigmented lesions that occur on sun-exposed andsun-damaged skin. No treatment is necessary. Recommended regular use of broad spectrum sunscreen SPF 30 or higher 3. ACTINIC KERATOSIS (2) Chest - Medial (Center), Right Knee - Anterior Erythematous scaly papules Patient was counseled regarding these sun-induced growths that can develop into squamous cell carcinoma if left untreated. Discussed treatment options, including cryotherapy and topical preparations.It was emphasized that any treated lesions that fail to resolve should be re-evaluated. Patient elected for treatment with Efudex as this has become a chronic issue. Educated on Efudex treatment. Apply to face, and bilateral dorsal hands twice a day for two weeks. Discussed that treated areas will become red, crusty, and inflamed. If areas become too uncomfortable, patient may use OTC hydrocortisone cream to help decrease irritation and can discontinue treatment early. Sun exposure should be avoided during treatment. Patient instructed to contact office for any questions or issues during treatment. Lesions that fail to resolve once treated area is healed should be re-evaluated in the office. Cryotherapy performed today; see procedure note Diagnosis: Actinic keratosis Indication: Precancerous Location: see skin exam Consent: Verbal consent was obtained and risks were discussed, including, but not limited to risks of scarring, darker or nail setter pigmentary changes, recurrence, incomplete removal and infection. Method: Liquid nitrogen was used to treat the lesion(s) with two 5-10 second freeze-thaw cycles. Number of lesions treated: 2 Post-procedure instructions: Instructions were given orally and in writing. The office will be contacted if the lesion fails to resolve despite treatment, or if a side effect develops such as abnormal crusting, scabbing, redness or tenderness Cryotherapy, skin lesion - Chest - Medial (Center), Right Knee - Anterior Related Medications fluorouracil (Efudex) 5 % cream Apply to directed areas on the face, and backs of hands twice a day x 14 days. Dispense 30 day supply but only use for 14 days 4. NEOPLASM OF UNSPECIFIED BEHAVIOR OF BONE, SOFT TISSUE, AND SKIN (3) Left Cheek Erythematous nodule with central depression Lesion biopsy Type of biopsy: tangential Informed [...] details: Photo taken Amount of lidocaine used: 3.0 cc Specimen A - Dermatopathology exam Differential Diagnosis: KA Check Margins: No Size of lesion: 1.5 x 1.5 cm Nasal tip Erythematous, scaly macule Lesion biopsy Type of biopsy: tangential Informed [...] Amount of lidocaine used: 1.0 cc Specimen B - Dermatopathology exam Differential Diagnosis: AK vs SCC Check Margins: No Size of lesion: 1.0 x 0.8 cm Left Dorsal Hand Hyperkeratotic papule Lesion biopsy Type of biopsy: [...] Amount of lidocaine used: 2.0 cc Specimen C - Dermatopathology exam Differential Diagnosis: AK vs SCC Check Margins: No Size of lesion: 1.1 x 1.0 cm 5. HISTORY OF MALIGNANT NEOPLASM OF SKIN Generalized Recommend routine skin exams Recommended broad spectrum sunscreen with SPF 30 or higher. Recommended sunscreen handout given. Next Visit: pending biopsy results/6 month skin check documented in this encounter Plan of Treatment Upcoming Encounters Date Type Department Care Team (Late st Contact Info) Description 11/14/2024 9:30 AM EDT Office Visit [facility] [address] [place] [phone] Nirav Duenas DO [address] [place] [address] 04/26/2025 8:35 AM EST Office Visit [facility] [address] [place] [phone] Charleen Hensley MD [address] [place] [address] Scheduled Orders Name Type Priority Associated Diagnoses Order Schedule Dermatopathology exam Pathology and Cytology Timed Neoplasm of unspecified behavior of bone, soft tissue, and skin Release Upon Ordering for 1 Occurrences starting 10/26/2024 documented as of this encounter Procedures Procedure Name Priority Date/Time Associated Diagnosis Comments CRYOTHERAPY SKIN LESION Routine 10/26/2024 9:53 AM EDT Actinic keratosis SKIN / NAIL BIOPSY Routine 10/26/2024 9: 51 AM EDT Neoplasm of unspecified behavior of bone, soft tissue, and skin SKIN / NAIL BIOPSY Routine 10/26/2024 9: 50 AM EDT Neoplasm of unspecified behavior of bone, soft tissue, and skin SKIN / NAIL BIOPSY Routine 10/26/2024 9: 44 AM EDT Neoplasm of unspecified behavior of bone, soft tissue, and skin documented in this encounter Results * Cryotherapy, skin lesion (10/26/2024 9:53 AM EDT) Charleen Hensley MD DERM PROCEDURE ORDERABLES Fin al Result * Lesion biopsy (10/26/2024 9:51 AM EDT) Narrative Leena Matthews LPN - 10/26/2024 9:51 AM EDT Type of biopsy: tangential Informed consent: discussed [...] taken Amount of lidocaine used: 2.0 cc Result [facility] Charleen Hensley MD DERM PROCEDURE ORDERABLES Fin al Result * Lesion biopsy (10/26/2024 9:50 AM EDT) Narrative Leena Matthews LPN - 10/26/2024 9:50 AM EDT Type of biopsy: tangential Informed consent: discussed [...] taken Amount of lidocaine used: 1.0 cc Result [facility] Charleen Hensley MD DERM PROCEDURE ORDERABLES Fin al Result * Lesion biopsy (10/26/2024 9:44 AM EDT) Narrative Benny Reveles LeenaRAI - 10/26/2024 9:44 AM EDT Type of biopsy: tangential Informed consent: discussed [...] details: Photo taken Amount of lidocaine used: 3.0 cc Result [facility] Charleen Hensley MD DERM PROCEDURE ORDERABLES Fin al Result documented in this encounter Visit Diagnoses Diagnosis Seborrheic keratosis- Primary Lentigines Actinic keratosis Neoplasm of unspecified behavior of bone, soft tissue, and skin History of malignant neoplasm of skin Personal history of other malignant neoplasm of skin documented in this encounter Care Teams Full Time Relationship Specialty Start Date End Date Nirav Duenas DO [address] [place] [address] PCP - [employer] 05/24/20 Nirav Duenas DO [address] [place] [address] PCP - General Internal Medicine 11/10/22 Marianne Davis MD [address] [facility] [address] [place] [address] Referring Physician Cardiology 05/12/23 documented as of this encounter
--- OUTSIDE RECORDS SUMMARY | 2024-10-30 07:20 | XMS_ITS | Encounter Summary ---
Author Organization [facility] Address [address] [place] [address] Care Team Providers Care Head Baker Name Role Phone Gabriel Duenas DO Unavailable [phone] Gabriel Duenas DO Primary Care Provider + [phone] Marianne Davis MD Unavailable [phone] Encounter Details Date Type Department Care Team [...] IM [address] [place] [id number] Gabriel Duenas DO [address] [place] [address] 04/26/2025 8:35 AM EST Office Visit [facility] [address] [place] [phone] Charleen Hensley MD [address] [place] [address] documented as of this encounter Procedures Procedure Name Priority Date/Time Associated Diagnosis Comments XR DEXA AXIAL SKELETON 11/11/2023 1:42 PM EDT documented in this encounter Results * XR DEXA AXIAL SKELETON (11/11/2023 1:42 PM EDT) Anatomical Region Laterality Modality Other 11/11/2023 1:42 PM EDT Narrative 11/11/2023 1:45 PM EDT The [address] [address] XRay Report Signed Patient: DEV WALSH MR#: [id number] : 1940 Acct:[id number] Age/Sex: 83 / M ADM Date: 11/09/23 Loc: RAD Attending Dr: Non-Staff Physician M.DCassidy Ordering Physician: Physician,Non-Staff MJayme Date of Service: 11/09/23 Procedure(s): XR DEXA axial skeleton Accession Number(s): [id number] cc: GABRIEL DUENAS ; Physician,Non-Staff MJayme The [address] [address] Patient Name: DEV WALSH MRN: [id number] date: 1940 Sex: M Assigned Patient Location: RAD Current Patient Location: Accession/Order Number: [id number] Exam Date: 11/09/2023 15:05 Report Date: 11/11/2023 [...] prevention and treatment of osteoporosis. Osteoporos Int. 2021;33(10):9011-3249. doi: 10.1007/f99864-637-04803-f. Epub 2021Sep 18. Erratum in: Osteoporos Int. 2021Dec 18;: PMID: [id number]; PMCID: [id number]. Electronically authenticated by: KISHORE KIDD Date: 11/11/2023 13:42 Dictated By: Kishore Kidd M.D. Signed By: 11/11/23 1345 DD/ 1342 TD/TT: Account Review Specialist: Procedure Note Radiology, Radiologist, MD - 11/11/2023 [place] [address] XRay Report Signed Patient: DEV WALSH TMR#: [id number] : 1940cct:[id number] Age/Sex: 83 / MADM Date: 11/09/23 Loc: [facility] Attending Dr: Non-Staff Physician MJayme Ordering Physician: Physician,Non-Staff Cande Date of Service: 11/09/23 Procedure(s): XR DEXA axial skeleton Accession Number(s): [id number] cc: GABRIEL DUENAS ; Physician,Non-Staff Cande The [place] [id number] Patient Name: DEV WALSH MRN: [id number] date: 1940 Sex: M Assigned Patient Location: [facility] Current Patient Location: Accession/Order Number: [id number] Exam Date: 11/09/2023 15:05 Report Date: 11/11/2023 [...] 10-year hip fracture risk >= 3% or [id number] major osteoporosis-related fracture risk >= 20% (i.e., [...] to prevention and treatment of osteoporosis.Osteoporos Int. 2021;33(10):4445-2344. doi: 10.1007/y23082-741-84440-i. Ep. Erratum in: Osteoporos Int. 2021Dec 18;: PMID: [id number]; PMCID: [id number]. Electronically authenticated by: KISHORE KIDD Date: 11/11/2023 13:42 Dictated By: Kishore Kidd M.D. Signed By:11/11/23 1341 DD/ 1344 TD/TT: Account Review Specialist: us Generic External Data Provider [facility] Final Result documented in this encounter Visit Diagnoses Not on filedocumented in this encounter Care Teams Head Baker Relationship Specialty Start Date End Date Gabriel Duenas DO [address] [facility] [address] [place] [address] PCP - [employer] 05/24/20 Gabriel Duenas DO [address] [place] [address] PCP - General Internal Medicine 11/10/22 Marianne Davis MD [address] [place] [address] Referring Physician Cardiology 05/12/23 documented as of this encounter
--- OUTSIDE RECORDS SUMMARY | 2024-10-30 07:20 | XMS_ITS | CCD ---
Author Organization [facility] Care Team Providers Care Project Management Professor Name Role Phone Nirav Bello Primary Care Provider Ryan Negron Attending Provider Nirav Bello Unavailable Unavailable Unavailable DO Nirav Bello Primary Care Provider [phone] DO Juan Ventura Attending Provider Dr. Nirav [...] Unavailable DO Nirav Bello Primary Care Provider [phone] MD Jj Garcia Attending Provider Nirav Bello DO Primary Care Provider DO Nirav Bello Primary Care Provider NON STAFF Attending Provider Unavailable KHOURY, MISSY Referring Unavailable ACE, NIRAV A Primary Care Unavailable KHOURY, MISSY Referring Unavailable ACE, NIRAV A Primary Care Unavailable Ace DO Nirav A Unavailable Ace DO, Nirav A Primary Care Provider Marianne Davis MD Unavailable [phone] Nirav Bello DO Primary Care Provider Colin Thompson MD Attending Provider Miller Donald Admitting Unavailable Miller Donald Attending Unavailable Aec, Nirav Primary Care Unavailable Colin Thompson Admitting [...] Unavailable ACE, NIRAV A Primary Care Unavailable PETITTI, LAURA A Attending Unavailable PETITTI, LAURA A Attending Unavailable PETITTI, LAURA A Attending Unavailable OLGA DALEY Attending Unavailable PETITTI, LAUAR A Attending Unavailable ACE, NIRAV A Attending [...] Translations: [Sulfa Drugs] Allergy to drug (finding) [facility] 250 DO Work Phone: (15 sources) Sulfonamides (Antibiotic); Translations: [SULFA (SULFONAMIDE ANTIBIOTICS)] Allergy to substance 2 [facility] (1 source) Sulfonamides (Antibiotic) Drug allergy (disorder) [facility] (20 sources) Substance with sulfonamide structure and antibacterial mechanism of action (substance) Drug allergy 4 [facility] (11 sources) abiraterone; Translations: [ABIRATERONE] Drug Allergy 4 Other [facility] (20 sources) Sulfanilamide Allergy to substance 3 Unknown [facility] Medications Current Medications Medication Drug Class(es) [...] Daily 90 tablet 3 08/04/2024 Active amylase 808700 unt / lipase 32730 unt / protease 44886 unt delayed release oral capsule (20 sources) Start: 07-03-2024 pancrelipase, Gae-Wmgj-Knbf, (Creon) 83625-51130 units capsule Indications: Malignant neoplasm of prostate (CMS/HCC) , Exocrine pancreatic insufficiency (CMS/HCC) TAKE 1 CAPSULE IN THE MORNING, 1 CAPSULE AT NOON AND 1 CAPSULE IN THE EVENING WITH MEALS 360 capsule 2 07/03/2024 Active Start: 01-17-2024 Creon 19165-57 000 units capsule Indications: Malignant neoplasm of prostate (CMS/HCC) , Exocrine pancreatic insufficiency (CMS/HCC) TAKE 1 CAPSULE IN THE MORNING, 1 CAPSULE AT NOON AND 1 CAPSULE IN THE EVENING WITH MEALS 300 capsule 1 01/17/2024 Active Start: 05-12-2023 pancrelipase, Ujh-Oeho-Klsb, (Creon) 36698-70089 units capsule Indications: Malignant neoplasm of prostate (CMS/HCC) , Exocrine pancreatic insufficiency (CMS/HCC) Take 1 capsule by mouth in the morning and 1 capsule at noon and 1 capsule in the evening. Take with meals. 270 capsule 1 05/12/2023 Active Start: 11-17-2022 take 1 capsule by mo uth three times daily hbxtgt-mrmrbqbq-tbimvnh (Creon) 24,000-76,000 -120,000 unit capsule Take 1 capsule by mouth 3 times daily (morning, midday, late afternoon). 11/17/2022 Active Start: 11-17-2022 Creon 22273-80 000 UNIT 1 with each meal Orally [...] tablet 3 02/15/2024 Active polyethylene glycol 3350 988204 mg / potassium chloride 2970 mg / sodium bicarbonate 6740 mg / sodium chloride 5860 mg / sodium sulfate 76997 mg powder for oral solution (2 sources) [...] mouth see administration instructions. 0 Active Vit C,D-Yn-Muzuj-Lutein-Zeax an (Preservision Areds-2) 250-90-40-1 mg Capsule (4 sources) Start: 12-05-2021 Vit C,I-Vx-Xfnyg-Lutein-Zeax an (Preservision Areds-2) 250-90-40-1 mg Capsule Active 1 TAB PO Every morning December 05, 2021 12:47pm Start: 12-05-2021 Vit C,E-Zn-Business Banking Representative kx-Quadxa-Gfsdrf (Preservision Areds-2) 250-90-40-1 mg Capsule Active 1 [...] ascorbic acid 226 mg / beta carotene 60665 unt / cuprous oxide 0.8 mg / [...] anticoagulants] Episodic Other aftercare (3 sources) Other oil heaterman (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; Translations: [OTH GROUP HOME CURRENT DRUG THERAPY] Onset: 11-06-2021 Episodic Other [...] sources) Long-term current use of anticoagulant; Translations: [[facility] (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 of anticoagulants] Onset: 01-13-2024 05-01-2024 Episodic Other aftercare (10 sources) Taking high risk medication; Translations: [Other skilled nursing (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] Onset: 01-13-2024 01-13-2024 Episodic Other aftercare (2 sources) [facility] (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 of anticoagulants; Translations: [[facility] (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 of anticoagulants] Onset: 01-13-2024 Episodic [...] Reference Range Facility No Panel Informationon 10-26 [facility] Type of biopsy: tangential Informed consent: discussed [...] taken Amount of lidocaine used: 2.0 cc [facility] Type of biopsy: tangential Informed consent: discussed [...] taken [facility]: [facility]: tangential Informed consent: discussed [...] taken Amount of lidocaine used: 3.0 cc [facility] Laiyaoyao [facility] Laiya[facility]ao No Panel Informationon 08-30 Lesion length (cm): [...] 9.0 ml Estimated blood loss: 1.0 ml [facility] Complexity: Intermediate Final length (cm): 5.3 Reason [...] uncontrollable bleeding, or complications. Dressing type: bandage [facility] No Panel InformationOrdered By: Danielle Leblanc on 08-30-2024 [facility] Work Phone: ALL CBC WITH AUTO DIFFon BASOPHILS ABSOLUTE AUTO 0.1 [facility] Basophils/100 WBC (Bld) 1.1 % 0.2 - 2.0 % [facility] Eosinophils/100 WBC (Bld) 5 % 0.9 - 7.0 % [facility] Erythrocyte distribution width (RBC) [Ratio] 13.2 % 11.0 - 15.0 % [facility] Hematocrit (Bld) [Volume fraction] 37.9 % Low 42.0 - 54.0 % [facility] Hemoglobin (Bld) [Mass/Vol] 12.4 g/dL Low 14.0 - 18.0 g/dL [facility] IMMATURE GRANULOCYTES ABS AUTO 0.04 High [facility] Immature granulocytes/100 WBC (Bld) 0.5 % 0.0 - 0.5 % [facility] Interpretation and review of laboratory results Abnormal [facility] LYMPHOCYTES ABSOLUTE AUTO 2.3 [facility] Lymphocytes/100 WBC (Bld) 30.7 % 20.5 - 60.0 % [facility] MCH (RBC) [Entitic mass] 30.5 pg 25.9 - 34.0 pg [facility] MCHC (RBC) [Mass/Vol] 32.7 g/dL 29.9 - 35.2 g/dL [facility] MCV (RBC) [Entitic vol] 93.3 fL 80.0 - 94.0 fL [facility] MONOCYTES ABSOLUTE AUTO 0.5 [facility] Monocytes/100 WBC (Bld) 5.9 % 1.7 - 12.0 % [facility] NEUTROPHILS ABSOLUTE AUTO 4.3 [facility] Neutrophils/100 WBC (Bld) 56.8 % 43.0 - 75.0 % [facility] Platelet mean volume (Bld) [Entitic vol] 9.8 fL 9.5 - 13.5 fL [facility] TBH EO # 0.4 [facility] TBH PLT 227 [facility] RBC 4.06 Low [facility] WBC 7.6 [facility] Glucose Glucometer (BldC) [M ass/Vol]Ordered By: Colin Thompson on 08-09-2024 Glucose [Mass/Vol] Capillary blood glucose measurement by glucometer (mass/volume) [facility] Comment on above: Random Glucose Refer ence Range is dependent on time and content of last meal. Glucose of more than 200 mg/dL in a nonstressed, ambulatory subject supports the diagnosis of Diabetes Mellitus. Glucose Poct Glucometerson 0 08-09-2024 Commemt1 Glu2: Cleaned Meter Normal [facility] Comment on above: Result Comment: PERF ORMED BY: [facility] [address] [place] [address] PATHOLOGIST COTTON GINNER HELPER JOSE DOWNEY M.D. Performed By: #### G PRAMOD #### Point of Care testing , Glucose [Mass/Vol] 216 mg/dL Normal The [facility] Comment on above: Result Comment: [facility] Glucose Reference Range is dependent on time and content of last meal. Glucose of more than 200 mg/dL in a nonstressed, ambulatory subject supports the diagnosis of Diabetes Mellitus. Performed By: #### G PRAMOD #### Point of Care testing , Joni 08-09-2024 L - -------- Specimen: [id number] Received: 08/09/24 Status: DEONDRE Joshua Num: [id number] Spec Type: Surgical Subm Dr: Colin Thompson MD Tissues: A Skin-Other than Cyst, tag, debridement or plastic repair (R LOWER LEG) Procedures: Lizett HERNANDEZ/Saurabh L4 -------- Age/ Patient Sex Location Account Attending Physician -------- Epifanio Walsh 84/M PR [id number] Colin Thompson MD -------- SPEC NUM: [id number] RECD: 08/09/24 STATUS: DEONDRE LEWIS NUM: [id number] JARRET: 08/09/24- SUBM DR: Colin Thompson MD ENTERED: 08/09/[address]: RYAN TYPE: Surgical DEPT: S ENTERED BY: [id number] RECV BY: [id number] ORDERED: HE/8, Gross/Micro L4 ORDERED: HE8, Gross/Micro [...] cm from the 6?9?12:00 margin. -------- Specimen: [id number] Received: 08/09/24 Status: DEONDRE Lewis Num: [id number] Spec Type: Surgical Subm Dr: Colin Thompson MD Tissues: A Skin-Other than Cyst, tag, debridement or plastic repair (R LOWER LEG) Procedures: , Gross/Micro L4 -------- Patient: Epifanio Walsh [id number] (Continued) -------- Specimen: [id number] Received: 08/09/24 (Continued) Gross Description (Continued) Signed (signature on file) Sohail Urbina MD 08/10/24 1527 -------- Specimen: [id number] Received: 08/09/24 Status: DEONDRE Lewis Num: [id number] Spec Type: Surgical Subm Dr: Colin Thompson MD Tissues: A Skin-Other than Cyst, tag, debridement or plastic repair (R LOWER LEG) Procedures: HE/Angel, Gross/Micro L4 -------- Patient: WalshEpifanio Brendon [id number] (Continued) -------- Specimen: [id number] Received: 08/09/24 (Continued) Gross Description (Continued) The specimen is inked as follows: 12?3:00-Yellow 3?6:00-Green 6?9:00-[place] 9?12:00-Blue [place]-Black Serial sections reveal yellow-leonardo, glistening [...] serially sectioned 6:00 polar end (8, ns, [id number] A) Microscopic Description Microscopic examination is performed CPT Codes 70760 -------- -------- Specimen: [id number] Re (more content not included)... Normal [facility] No Panel InformationOrdered By: Colin Thompson on 08-09-2024 Bedside Glucose Comment Glu2: cleaned meter [facility] No Panel Informationon 07-26 Lesion length (cm): [...] details: Amount of lidocaine used: 2.0 ml [facility] Laiyaoyao No Panel Informationon 07-14 Type of biopsy: [...] taken Amount of lidocaine used: 1.0 cc [facility] Type of biopsy: tangential Informed consent: discussed [...] taken Amount of lidocaine used: 2.0 [facility] Type of biopsy: tangential Informed consent: discussed [...] taken Amount of lidocaine used: 1.0 cc [facility] CMP (CMP) (FOR REMOTE C USE)on 07-06-2024 Albumin [Mass/Vol] 3.6 g/dL 3.4 - 5.0 g/dL [facility] ALBUMIN GLOBULIN RATIO 1.2 [facility] ALP [Catalytic activity/Vol] 48 U/L 46 - 116 U/L [facility] ALT [Catalytic activity/Vol] 16 U/L 16 - 63 U/L [facility] Anion gap [Moles/Vol] 11 mmol/L [facility] AST [Catalytic activity/Vol] 19 U/L 15 - 37 U/L [facility] Bilirubin [Mass/Vol] 0.6 mg/dL 0.2 - 1 .0 mg/dL [facility] Calcium [Mass/Vol] 8.8 mg/dL 8.5 - 10. 1 mg/dL [facility] Chloride [Moles/Vol] 106 mmol/L 98 - 10 7 mmol/L [facility] CO2 [Moles/Vol] 30 mmol/L 21.0 - 32.0 mmol/L [facility] Creatinine [Mass/Vol] 1.27 mg/dL 0.70 - 1.30 mg/dL [facility] GFR/1.73 sq M.predicted CKD-EPI (S/P/Bld) [Vol rate/Area] >60 >=60 mL/min/1.73m 2 [facility] Globulin (S) [Mass/Vol] 3.1 g/dL [facility] Glucose [Mass/Vol] 167 mg/dL High 74 - 106 mg/dL [facility] Interpretation and review of laboratory results Abnormal [facility] Potassium [Moles/Vol] 4 mmol/L 3.5 - 5.1 mmol/L [facility] Protein [Mass/Vol] 6.7 g/dL 6.4 - 8.2 g/dL [facility] Sodium [Moles/Vol] 143 mmol/L 136 - 145 mmol/L [facility] TBH EGFR-NON AF GUINEAN 54 Low >=60 mL/min/1.73m 2 [facility] Urea nitrogen [Mass/Vol] 24 mg/dL High 7.0 - 18.0 mg/dL [facility] Urea nitrogen/Creatinine [Mass ratio] 18.9 mg/mg [facility] No Panel Informationon 06-30 Complexity: Intermediate Final [...] uncontrollable bleeding, or complications. Dressing type: bandage [facility] Lesion length (cm): 1.2 Lesion width (cm): [...] 9.0 ml Estimated blood loss: <1.0 ml [facility] HbA1c (Bld) [Mass fraction]o n 05-10-2024 [facility] Laboratory - Hematology and Cell countson 05-10-2024 HbA1c (Bld) [Mass fraction] 7.6 % [facility] ALL CBC WITH AUTO DIFFon BASOPHILS ABSOLUTE AUTO 0.1 N [facility] Basophils/100 WBC (Bld) 1.2 % 0.2 - 2.0 % [facility] Eosinophils/100 WBC (Bld) 4.3 % 0.9 - 7.0 % [facility] Erythrocyte distribution width (RBC) [Ratio] 13 % 11.0 - 15.0 % [facility] Hematocrit (Bld) [Volume fraction] 38.4 % Low 42.0 - 54.0 % [facility] Hemoglobin (Bld) [Mass/Vol] 12.4 g/dL Low 14.0 - 18.0 g/dL [facility] IMMATURE GRANULOCYTES ABS AUTO 0.03 [facility] Immature granulocytes/100 WBC (Bld) 0.5 % 0.0 - 0.5 % [facility] Interpretation and review of laboratory results Abnormal [facility] LYMPHOCYTES ABSOLUTE AUTO 2.1 [facility] Lymphocytes/100 WBC (Bld) 32.7 % 20.5 - 60.0 % [facility] MCH (RBC) [Entitic mass] 30.1 pg 25.9 - 34.0 pg [facility] MCHC (RBC) [Mass/Vol] 32.3 g/dL 29.9 - 35.2 g/dL [facility] MCV (RBC) [Entitic vol] 93.2 fL 80.0 - 94.0 fL [facility] MONOCYTES ABSOLUTE AUTO 0.5 N [facility] Monocytes/100 WBC (Bld) 7 % 1.7 - 12.0 % [facility] NEUTROPHILS ABSOLUTE AUTO 3.5 [facility] Neutrophils/100 WBC (Bld) 54.3 % 43.0 - 75.0 % [facility] Platelet mean volume (Bld) [Entitic vol] 10.4 fL 9.5 - 13.5 fL [facility] TBH EO # 0.3 [facility] PLT 172 [facility] RBC 4.12 Low [facility] WBC 6.5 [facility] ALL CBC WITH AUTO DIFFon BASOPHILS ABSOLUTE AUTO 0.1 N [facility] Basophils/100 WBC (Bld) 1.2 % 0.2 - 2.0 % [facility] Eosinophils/100 WBC (Bld) 5.3 % 0.9 - 7.0 % [facility] Erythrocyte distribution width (RBC) [Ratio] 13.1 % 11.0 - 15.0 % [facility] Hematocrit (Bld) [Volume fraction] 38.3 % Low 42.0 - 54.0 % [facility] Hemoglobin (Bld) [Mass/Vol] 12.6 g/dL Low 14.0 - 18.0 g/dL [facility] IMMATURE GRANULOCYTES ABS AUTO 0.04 High [facility] Immature granulocytes/100 WBC (Bld) 0.5 % 0.0 - 0.5 % [facility] Interpretation and review of laboratory results Abnormal [facility] LYMPHOCYTES ABSOLUTE AUTO 2.2 [facility] Lymphocytes/100 WBC (Bld) 27.3 % 20.5 - 60.0 % [facility] MCH (RBC) [Entitic mass] 30.7 pg 25.9 - 34.0 pg [facility] MCHC (RBC) [Mass/Vol] 32.9 g/dL 29.9 - 35.2 g/dL [facility] MCV (RBC) [Entitic vol] 93.2 fL 80.0 - 94.0 fL [facility] MONOCYTES ABSOLUTE AUTO 0.6 N [facility] Monocytes/100 WBC (Bld) 7.3 % 1.7 - 12.0 % [facility] NEUTROPHILS ABSOLUTE AUTO 4.8 [facility] Neutrophils/100 WBC (Bld) 58.4 % 43.0 - 75.0 % [facility] Platelet mean volume (Bld) [Entitic vol] 10.6 fL 9.5 - 13.5 fL [facility] TBH EO # 0.4 [facility] TBH PLT 193 [facility] TBH RBC 4.11 Low [facility] WBC 8.1 [facility] TRANSTHORACIC ECHO (TTE) COM PLETEon 02-21-2024 TRANSTHORACIC ECHO (TTE) COMPLETE [address], [address], [place] [address] TRANSTHORACIC ECHOCARDIOGRAM REPORT Patient Name: EPIFANIO Kim Physician: [id number] Marina Goldsmith MD Study Date: 02/21/2024 Ordering Provider: [id number] MISSY KHOURY MRN/PID: [id number] Fellow: Nurse: Date of /Age: 1 1940 / 83 years Concrete Batcher: Jyoti Gutiérrez RDCS, RVT Gender: M Additional [...] III CPT Codes: Echo Complete w Full Doppler-02383 Study Detail: The following Echo studies were [...] mmHg PIEDV: 2.08 m/s PADP: 20.3 mmHg [id number] Marina Goldsmith MD Electronically signed on 02/21/2024 at 2:06:09 PM Final Normal [facility] US Heart TransthoracicOrdere d By: Marina Goldsmith on 02-21-2024 Aortic Valve Area by Continuity of Peak Velocity 4.33 cm2 [facility] Work Phone: Aortic Valve Area by Continuity of VTI 3.61 cm2 [facility] Work Phone: AV mn grad 2.0 mmHg [facility] Work Phone: AV pk grad 4.8 mmHg [facility] Work Phone: AV pk farheen 1.10 m/s [facility] Work Phone: LV A4C EF 68.1 [facility] Work Phone: LV EF 60 % [facility] Work Phone: LVIDd 4.95 cm [facility] Work Phone: LVOT diam 2.60 cm [facility] Work Phone: MV avg E/e' ratio 6.90 [facility] Work Phone: MV E/A ratio 0.58 [facility] Work Phone: RVSP 29.4 mmHg [facility] Work Phone: [facility] Work Phone: Heart Transthoracicon [address], [place] [address] TRANSTHORACIC ECHOCARDIOGRAM REPORT Patient Name: EPIFANIO Kim Physician: [id number] Marina Goldsmith MD Study Date: 02/21/2024 Ordering Provider: [id number] MISSY KHOURY MRN/PID: [id number] Fellow: Nurse: Date of /Age: 1 1940 / 83 years Concrete Batcher: Jyoti Gutiérrez RDCS, RVT Gender: M Additional [...] III CPT Codes: Echo Complete w Full Doppler-[id number] Study Detail: The following Echo studies were [...] not included)... Marina Shaffer MD - 02/21/[address], Suite [facility], [place] [address] TRANSTHORACIC ECHOCARDIOGRAM REPORT Patient Name: EPIFANIO Kim Physician: [id number] Marina Goldsmith MD Study Date: 02/21/2024 Ordering Provider: [id number] MISSY KHOURY MRN/PID: [id number] Fellow: Nurse: Date of /Age: 1 1940 / 83 years Concrete Batcher: Jyoti Gutiérrez RDCS, RVT Gender: M Additional [...] III CPT Codes: Echo Complete w Full Doppler-[id number] Study Detail: The following Echo studies were [...] mmHg PIEDV: 2.08 m/s PADP: 20.3 mmHg [id number] Marina Goldsmith MD Electronically signed on 02/21/2024 at 2:06:09 PM Final [facility] Work Phone: BC Heart Perfusion W stress and W radionuclide [...] Clarissa Sanchez 02/07/2024 4:47 PM Dictation workstation: [id number] Interpreted By: Clarissa Sanchez, Lora Elaine STUDY: MYOCARDIAL PERFUSION STRESS TEST WITH EXERCISE Performing facility: [facility], [address] [place] [address], [address], [place] [address] [facility] Provider: Missy Khoury MD, FACC PCP: Dr. Trang Bello Supervising provider: Marina Goldsmith MD INDICATION: Abnormal EKG; PVC Murmur HISTORY: Gender: M; Age: 83 y/o ; Height: HT 180.3 cm cm; Weight: WT 77.111 kg kg. Abnormal EKG; High Cholesterol; Diabetes; HTN; Arrhythmias; A-fib Quit smoking 34 years ago. COMPARISON: Previous nuclear testing completed at [facility] ACCESSION NUMBER(S): [id number] ORDERING CLINICIAN: MISSY KHOURY TECHNIQUE: ONE DAY [...] PERFUSION STRESS TEST WITH EXERCISE Performing facility: [facility], [address] [place] [address], [address], [place] [address] [facility] Provider: Missy Khoury MD, [facility] PCP: Dr. Trang Bello Supervising provider: Marina Goldsmith MD INDICATION: Abnormal EKG; PVC Murmur HISTORY: Gender: M; Age: 83 y/o ; Height: HT 180.3 cm cm; Weight: WT 77.111 kg kg. Abnormal EKG; High Cholesterol; Diabetes; HTN; Arrhythmias; A-fib Quit smoking 34 years ago. COMPARISON: Previous nuclear testing completed [id number] at [facility] ACCESSION NUMBER(S): [id number] ORDERING CLINICIAN: MISSY KHOURY TECHNIQUE: ONE DAY [...] Clarissa Sanchez 02/07/2024 4:47 PM Dictation workstation: [id number] [facility] Work Phone: Radiology Study observation (narrative) [facility] Work Phone: NM Heart Perfusion W stress and W radionuclide IVOrdered By: Clarissa Sanchez on 02-07-2024 [facility] Work Phone: NUCLEAR STRESS TESTon 2023 NUCLEAR STRESS TEST Interpreted By: Clarissa Sanchez and Giannuzzi Michael STUDY: MYOCARDIAL PERFUSION STRESS TEST WITH EXERCISE Performing facility: [facility], [address] [place] [address], [address], [place] [address] [facility] Provider: Missy Khoury MD, FACC PCP: Dr. Trang Bello Supervising provider: Marina Goldsmith MD INDICATION: Abnormal EKG; PVC Murmur HISTORY: Gender: M; Age: 83 y/o ; Height: HT 180.3 cm cm; Weight: WT 77.111 kg kg. Abnormal EKG; High Cholesterol; Diabetes; HTN; Arrhythmias; A-fib Quit smoking 34 years ago. COMPARISON: Previous nuclear testing completed at [facility] ACCESSION NUMBER(S): [id number] ORDERING CLINICIAN: MISSY KHOURY TECHNIQUE: ONE DAY [...] Clarissa Sanchez 02/07/2024 4:47 PM Dictation workstation: [id number] [facility] Comment on above: Order Comment: Start with exercise, may switch to alfonso ALL BASIC METABOLIC PANELon 02-03-2024 Anion gap [Moles/Vol] 11.7 mmol/L NO [facility] Calcium [Mass/Vol] 8.3 mg/dL Low 8.5 - 10. 1 mg/[facility] Chloride [Moles/Vol] 107 mmol/L 98 - 10 7 mmol/L [facility] CO2 [Moles/Vol] 28.3 mmol/L 21.0 - 32.0 mmol/L [facility] Creatinine [Mass/Vol] 1.11 mg/dL 0.70 - 1.30 mg/dL [facility] GFR/1.73 sq M.predicted CKD-EPI (S/P/Bld) [Vol rate/Area] >60 60 - PINF [facility] Glucose [Mass/Vol] 164 mg/dL High 74 - 106 mg/dL [facility] Interpretation and review of laboratory results Abnormal [facility] Potassium [Moles/Vol] 4.0 mmol/L 3.5 - 5.1 mmol/L [facility] Sodium [Moles/Vol] 143 mmol/L 136 - 145 mmol/L [facility] TBH EGFR-NON AF GUINEAN >60 60 - PINF [facility] Urea nitrogen [Mass/Vol] 16.0 mg/dL 7.0 - 18.0 mg/dL [facility] Urea nitrogen/Creatinine [Mass ratio] 14.4 mg/mg [facility] PET psma initial tx sb-mton 09-13-2023 PET psma initial tx -[facility] [place] [address] Nuclear Medicine Report Signed Patient: Epifanio Walsh MR#: [id number] : 1940 Acct:[id number] Age/Sex: 83 / M ADM Date: 09/13/23 Loc: Room: [facility]: SYLWIA STAFF Copies to: [...] Jordan Story M.D.09/13/2023 3:20 PM Dictation Location: [place] [address] Transcribed By: [facility] 09/13/23 1520 Dictated By: Jordan Story II, MD 09/13/23 1515 Signed By: 09/13/23 1520 Normal [facility] ECG 12 [place] 07-13-2023 Sinus rhythm with frequent PVCs Otherwise normal EKG QTc 444 ms [facility] Work Phone: C reactive protein [Mass/vol ume] in Serum or PlasmaOrdered By: Jj Garcia on 11-26-2022 CRP [Mass/Vol] < 0.5 mg/dL 0.0-0.5 [facility] Creatinine [Mass/volume] in Serum or PlasmaOrdered By: Nirav Bello on 11-26-2022 Creatinine [Mass/Vol] 1.55 mg/dL 0.70-1.30 [facility] Erythrocyte sedimentation ra te by Photometric methodOrdered By: Jj Garcia on 11-26-2022 ESR Photometric method (Bld) [Velocity] 18 mm/hr 0- [facility] No Panel InformationOrdered By: Nirav Bello on 11-26-2022 Estimated GFR (CKD-EPI) 43.863 mL/Min [facility] Creatinine Clearance (Chem N/A [facility] Thyrotropin [Units/volume] i n Serum or PlasmaOrdered By: Jj Garcia on 11-26-2022 TSH Qn 1.23 m[IU]/L 0.45-5.33 [facility] Urea nitrogen [Mass/volume] in Serum or PlasmaOrdered By: Nirav Bello on 11-26-2022 Urea nitrogen [Mass/Vol] 31 mg/dL 7-25 [facility] PANCREATIC ELASTASE FECALon 09-08-2022 Pancreatic Elastase, Fecal 86 ug Elast./g Critically low >200 [facility] Comment on above: Result Comment: Re sults verified by repeat testing Severe Pancreatic Insufficiency: <100 Moderate Pancreatic Insufficiency: 100 - 200 Normal: >200 Performed By: #### L IPID, TSH, CMP #### [facility] [address] [address] [address] Leesa Urbina CELIAC ANTIBODIES PROFILEon 09-04-2022 Deamidated Gliadin Abs, IgA 8 units Normal 0-19 [facility] Comment on above: Result Comment: Nega tive 0 - 19 Weak Positive 20 - 30 Moderate to Strong Positive >30 Performed By: #### C ELIACP #### [facility] [address] [place] [address] Dr. Leesa Urbina Deamidated Gliadin Abs, IgG 4 units Normal 0-19 [facility] Comment on above: Result Comment: Nega tive 0 - 19 Weak Positive 20 - 30 Moderate to Strong Positive >30 Performed By: #### C ELIACP #### [facility] [address] [place] [address] Dr. Leesa Urbina Endomysial Antibody IgA Negative Normal Negative [facility] Comment on above: Performed By: #### C ELIACP #### [facility] [address] [place] [address] Dr. Leesa Urbina Immunoglobulin A, Qn, Serum 143 mg/dL Normal 61-437 [facility] Comment on above: Performed By: #### C ELIACP #### [facility] [address] [place] [address] Dr. Leesa Urbina t-Transglutaminase (tTG) IgA <2 Normal 0-3 [facility] Comment on above: Result Comment: Nega tive 0 - 3 Weak Positive 4 - 10 Positive >10 . Tissue Transglutaminase (tTG) has been identified as the endomysial antigen. Studies have demonstr- ated that endomysial IgA antibodies have over 99% specificity for gluten sensitive enteropathy. Performed By: #### C ELIACP #### [facility] [address] [place] [address] Dr. Leesa Urbina t-Transglutaminase (tTG) IgG 6 U/mL Critically high 0-5 [facility] Comment on above: Result Comment: Nega tive 0 - 5 Weak Positive 6 - 9 Positive >9 Performed By: #### C ELIACP #### [facility] [address] [place] [address] Dr. Leesa Urbina CBC AUTO DIFFon 09-03-2022 BASO # 0.1 103/ul Normal 0.0-0.1 [facility] Comment on above: Performed By: #### L IPID, TSH, CMP #### [facility] [address] [place] [address] Dr. Leesa Urbina Basophils/100 WBC (Bld) 1.1 % Normal 0.2-2.0 [facility] Comment on above: Performed By: #### L IPID, TSH, CMP #### [facility] [address] [place] [address] Dr. Leesa Urbina EO # 0.6 103/ul Normal 0.0-0.7 [facility] Comment on above: Performed By: #### L IPID, TSH, CMP #### [facility] [address] [place] [address] Dr. Leesa Urbina Eosinophils/100 WBC (Bld) 7.9 % Critically high 0.9-7.0 [facility] Comment on above: Performed By: #### L IPID, TSH, CMP #### [facility] [address] [place] [address] Dr. Leesa Urbina Erythrocyte distribution width (RBC) [Ratio] 13.6 % Normal 11.0-15.0 [facility] Comment on above: Performed By: #### L IPID, TSH, CMP #### [facility] [address] [place] [address] Dr. Leesa Urbina Hematocrit (Bld) [Volume fraction] 34.4 % Critically low 42.0-54.0 [facility] Comment on above: Performed By: #### L IPID, TSH, CMP #### [facility] [address] [place] [address] Dr. Leesa Urbina Hemoglobin (Bld) [Mass/Vol] 11.4 g/dL Critically low 14.0-18.0 [facility] Comment on above: Performed By: #### L IPID, TSH, CMP #### [facility] [address] [place] [address] Dr. Leesa Urbina IG # 0.02 10e3/ul Normal 0.00-0.03 [facility] Comment on above: Performed By: #### L IPID, TSH, CMP #### [facility] [address] [place] [address] Dr. Leesa Urbina IG % 0.3 % Normal 0.0-0.5 [facility] Comment on above: Performed By: #### L IPID, TSH, CMP #### [facility] [address] [place] [address] Dr. Leesa Urbina LYMPH # 2.1 103/ul Normal 1.2-3.8 [facility] Comment on above: Performed By: #### L IPID, TSH, CMP #### [facility] [address] [place] [address] Dr. Leesa Urbina Lymphocytes/100 WBC (Bld) 28.1 % Normal 20.5-60.0 [facility] Comment on above: Performed By: #### L IPID, TSH, CMP #### [facility] [address] [place] [address] Dr. Leesa Urbina MANUAL DIFF REQ NO Normal [facility] Comment on above: Performed By: #### L IPID, TSH, CMP #### [facility] [address] [place] [address] Dr. Leesa Urbina MCH (RBC) [Entitic mass] 31.1 pg Normal 25.9-34.0 [facility] Comment on above: Performed By: #### L IPID, TSH, CMP #### [facility] [address] [place] [address] Dr. Leesa Urbina MCHC (RBC) [Mass/Vol] 33.1 g/dL Normal 29.9-35.2 [facility] Comment on above: Performed By: #### L IPID, TSH, CMP #### [facility] [address] [place] [address] Dr. Leesa Urbina MCV (RBC) [Entitic vol] 93.7 fL Normal 80.0-94.0 [facility] Comment on above: Performed By: #### L IPID, TSH, CMP #### [facility] [address] [place] [address] Dr. Leesa Urbina MONO # 0.4 103/ul Normal 0.3-0.8 [facility] Comment on above: Performed By: #### L IPID, TSH, CMP #### [facility] [address] [place] [address] Dr. Leesa Urbina Monocytes/100 WBC (Bld) 6.0 % Normal 1.7-12.0 [facility] Comment on above: Performed By: #### L IPID, TSH, CMP #### [facility] [address] [place] [address] Dr. Leesa Urbina NEUT # 4.2 103/ul Normal 1.4-6.5 [facility] Comment on above: Performed By: #### L IPID, TSH, CMP #### [facility] [address] [address] [address] Leesa Urbina Neutrophils/100 WBC (Bld) 56.6 % Normal 43.0-75.0 [facility] Comment on above: Performed By: #### L IPID, TSH, CMP #### [facility] [address] [place] [address] Dr. Leesa Urbina Platelet mean volume (Bld) [Entitic vol] 10.1 fL Normal 9.5-13.5 [facility] Comment on above: Performed By: #### L IPID, TSH, CMP #### [facility] [address] [place] [address] Dr. Leesa Urbina PLT 195 103/ul Normal 150-450 [facility] Comment on above: Performed By: #### L IPID, TSH, CMP #### [facility] [address] [place] [address] Dr. Leesa Urbina RBC 3.67 106/ul Critically low 4.70-6.10 [facility] Comment on above: Performed By: #### L IPID, TSH, CMP #### [facility] [address] [place] [address] Dr. Leesa Urbina WBC 7.3 103/ul Normal 4.0-11.0 [facility] Comment on above: Performed By: #### L IPID, TSH, CMP #### [facility] [address] [place] [address] Dr. Leesa Urbina FERRITINon 09-03-2022 Ferritin [Mass/Vol] 44.0 ng/mL Normal 26.0-388.0 [facility] Comment on above: Performed By: #### F ERR, FETIBC #### [facility] [address] [place] [address] Dr. Leesa Urbina IRON AND TIBCon 09-03-2022 % SATURATION 23.5 % Normal [facility] Comment on above: Performed By: #### F ERR, FETIBC #### [facility] [address] [place], [place] [address] Dr. Leesa Urbina Iron [Mass/Vol] 69.0 ug/dL Normal 65.0-175.0 [facility] Comment on above: Performed By: #### F ERR, FETIBC #### [facility] [address] [place], [place] [address] Dr. Leesa Urbina TIBC DIRECT 294.0 ug/dL Normal 250.0-450.0 [facility] Comment on above: Performed By: #### F ERR, FETIBC #### [facility] [address] [place], [place] [address] Dr. Leesa Urbina Office Visit (Cardiology)on 07-14-2022 Follow-up visit Diagnoses/Problems Assessed Anticoagulated (V58.61) (Z79.01) Benign essential hypertension (401.1) (I10) Hyperlipidemia (272.4) (E78.5) Paroxysmal atrial fibrillation (427.31) (I48.0) Diabetes mellitus (250.00) (E11.9) Body mass index (BMI) of 24.0 to 24.9 in adult (V85.1) (Z68.24) Never a smoker Orders SocHx: Never a smoker Tobacco Use Screening; Status:Complete; Done: [id number] Patient Instructions Please bring all medicines, vitamins, [...] negative for complaint. Vitals Vital Signs Recorded: [id number] 09:08AM Heart Rate68, L Radial Crxapogf404, LUE, Sitting Ckbaglrkg26, LUE, Sitting Height5 ft 11 in Oolqcr587 lb BMI Uwdtimpdaq69.13 kg/m2 BSA Calculated1.98 Tobacco Useb) No PHQ-2 [...] Jul 14 2022 10:20AM EST (Author) Normal [employer] Tobacco Screening.on 023 Adult depression screening assessment No [facility] 250 DO Work Phone: Fall risk assessment a) No falls within the last year [facility] 250 DO Work Phone: Tobacco use status [facility]PH[facility] b) No M [facility] 250 DO Work Phone: CBC AUTO DIFFon 05-06-2022 BASO # 0.1 103/ul Normal 0.0-0.1 [facility] Comment on above: Performed By: #### C BC #### [facility] [address] [place] [address] Dr. Leesa Urbina Basophils/100 WBC (Bld) 1.4 % Normal 0.2-2.0 [facility] Comment on above: Performed By: #### C BC #### [facility] [address] [place] [address] Dr. Leesa Urbina EO # 0.4 103/ul Normal 0.0-0.7 [facility] Comment on above: Performed By: #### C BC #### [facility] [address] [place] [address] Dr. Leesa Urbina Eosinophils/100 WBC (Bld) 5.4 % Normal 0.9-7.0 [facility] Comment on above: Performed By: #### C BC #### [facility] [address] [place] [address] Dr. Leesa Urbina Erythrocyte distribution width (RBC) [Ratio] 13.3 % Normal 11.0-15.0 [facility] Comment on above: Performed By: #### C BC #### [facility] [address] [place] [address] Dr. Leesa Urbina Hematocrit (Bld) [Volume fraction] 35.8 % Critically low 42.0-54.0 [facility] Comment on above: Performed By: #### C BC #### [facility] [address] [place] [address] Dr. Leesa Urbina Hemoglobin (Bld) [Mass/Vol] 12.0 g/dL Critically low 14.0-18.0 [facility] Comment on above: Performed By: #### C BC #### [facility] [address] [place] [address] Dr. Leesa Urbina IG # 0.01 10e3/ul Normal 0.00-0.03 [facility] Comment on above: Performed By: #### C BC #### [facility] [address] [place] [address] Dr. Leesa Urbina IG % 0.2 % Normal 0.0-0.5 [facility] Comment on above: Performed By: #### C BC #### [facility] [address] [place] [address] Dr. Leesa Urbina LYMPH # 1.7 103/ul Normal 1.2-3.8 [facility] Comment on above: Performed By: #### C BC #### [facility] [address] [place] [address] Dr. Leesa Urbina Lymphocytes/100 WBC (Bld) 26.1 % Normal 20.5-60.0 [facility] Comment on above: Performed By: #### C BC #### [facility] [address] [place] [address] Dr. Leesa Urbina MANUAL DIFF REQ NO Normal [facility] Comment on above: Performed By: #### C BC #### [facility] [address] [place] [address] Dr. Leesa Urbina MCH (RBC) [Entitic mass] 31.0 pg Normal 25.9-34.0 [facility] Comment on above: Performed By: #### C BC #### [facility] [address] [place] [address] Dr. Leesa Urbina MCHC (RBC) [Mass/Vol] 33.5 g/dL Normal 29.9-35.2 [facility] Comment on above: Performed By: #### C BC #### [facility] [address] [place] [address] Dr. Leesa Urbina MCV (RBC) [Entitic vol] 92.5 fL Normal 80.0-94.0 [facility] Comment on above: Performed By: #### C BC #### [facility] [address] [place] [address] Dr. Leesa Urbina MONO # 0.4 103/ul Normal 0.3-0.8 [facility] Comment on above: Performed By: #### C BC #### [facility] [address] [place] [address] Dr. Leesa Urbina Monocytes/100 WBC (Bld) 6.5 % Normal 1.7-12.0 [facility] Comment on above: Performed By: #### C BC #### [facility] [address] [place] [address] Dr. Leesa Urbina NEUT # 4.0 103/ul Normal 1.4-6.5 [facility] Comment on above: Performed By: #### C BC #### [facility] [address] [place] [address] Dr. Leesa Urbina Neutrophils/100 WBC (Bld) 60.4 % Normal 43.0-75.0 [facility] Comment on above: Performed By: #### C BC #### [facility] [address] [place] [address] Dr. Leesa Urbina Platelet mean volume (Bld) [Entitic vol] 10.6 fL Normal 9.5-13.5 [facility] Comment on above: Performed By: #### C BC #### [facility] [address] [place] [address] Dr. Leesa Urbina PLT 185 103/ul Normal 150-450 [facility] Comment on above: Performed By: #### C BC #### [facility] [address] [address] [address] Leesa Urbina RBC 3.87 106/ul Critically low 4.70-6.10 [facility] Comment on above: Performed By: #### C BC #### [facility] [address] [place] [address] Dr. Leesa Urbina WBC 6.6 103/ul Normal 4.0-11.0 [facility] Comment on above: Performed By: #### C BC #### [facility] [address] [place] [address] Dr. Leesa Urbina GLYCOHEMOGLOBIN A1Con 2021 ADA RECOMMENDATION SEE BELOW Normal [facility] Comment on above: Result Comment: ADA RECOMMENDED LIMIT 4.0 - 6.0 ADA THERAPEUTIC TARGET < 7.0 ACTION SUGGESTED > 7.0 Performed By: #### A 1C #### [facility] [address] [place] [address] Dr. Leesa Urbina Glucose [Mass/Vol] 151 mg/dL Normal [facility] Comment on above: Performed By: #### A 1C #### [facility] [address] [place] [address] Dr. Leesa Urbina HbA1c (Bld) [Mass fraction] 6.9 % Critically high 4.5-6.2 [facility] Comment on above: Performed By: #### A 1C #### [facility] [address] [place] [address] Dr. Leesa Urbina LIPID PROFILEon 05-06-2022 CHOL-HDL RATIO NORM SEE BELOW Normal [facility] Comment on above: Result Comment: 3.3 - 4.4 LOW RISK 4.4 - 7.1 AVERAGE RISK 7.1 - 11.0 MODERATE RISK >11.0 HIGH RISK Performed By: #### L IPID, TSH, CMP #### [facility] [address] [place] [address] Dr. Leesa Urbina Cholesterol [Mass/Vol] 136 mg/dL Normal <=200 [facility] Comment on above: Performed By: #### L IPID, TSH, CMP #### [facility] [address] [place] [address] Dr. Leesa Urbina Cholesterol in HDL [Mass/Vol] 62 mg/dL Critically high 40-60 [facility] Comment on above: Performed By: #### L IPID, TSH, CMP #### [facility] [address] [place] [address] Dr. Leesa Urbina Cholesterol in LDL [Mass/Vol] 53.0 mg/dL Normal [facility] Comment on above: Performed By: #### L IPID, TSH, CMP #### [facility] [address] [place] [address] Dr. Leesa Urbina Cholesterol.total/Kandy sterol in HDL [Mass ratio] 2.2 {ratio} Normal [facility] Comment on above: Performed By: #### L IPID, TSH, CMP #### [facility] [address] [place] [address] Dr. Leesa Urbina HDL NORMAL > or = 60 mg/dl - LO W CARDIOVASCULAR RISK <40 mg/dl - HIGH CARDIOVASCULAR RISK Normal [facility] Comment on above: Performed By: #### L IPID, TSH, CMP #### [facility] [address] [place] [address] Dr. Leesa Urbina LDL CALC NORMAL SEE BELOW Normal [facility] Comment on above: Result Comment: <100 mg/dl OPTIMAL 100 - 129 mg/dl NEAR OR ABOVE OPTIMAL 130 - 159 mg/dl BORDERLINE HIGH 160 - 189 mg/dl HIGH >190 mg/dl VERY HIGH Performed By: #### L IPID, TSH, CMP #### [facility] [address] [place] [address] Dr. Leesa Urbina Triglyceride [Mass/Vol] 105 mg/dL Normal <=150 [facility] Comment on above: Performed By: #### L IPID, TSH, CMP #### [facility] [address] [address] [address] Leesa Urbina VLDL CALC 21.0 mg/dL Normal [facility] Comment on above: Performed By: #### L IPID, TSH, CMP #### [facility] [address] [address] [address] Leesa Urbina PROF 14(COMP METB)on 022 Albumin [Mass/Vol] 3.4 g/dL Normal 3.4-5.[address] [facility] Comment on above: Performed By: #### L IPID, TSH, CMP #### [facility] [address] [place] [address] Dr. Leesa Urbina Albumin/Globulin [Mass ratio] 1.1 {ratio} Normal [facility] Comment on above: Performed By: #### L IPID, TSH, CMP #### [facility] [address] [place] [address] Dr. Leesa Urbina ALP [Catalytic activity/Vol] 77 U/L Normal 46-116 [facility] Comment on above: Performed By: #### L IPID, TSH, CMP #### [facility] [address] [place] [address] Dr. Leesa Urbina ALT [Catalytic activity/Vol] 12 U/L Critically low 16-63 [facility] Comment on above: Performed By: #### L IPID, TSH, CMP #### [facility] [address] [address] [address] Leesa Urbina Anion gap [Moles/Vol] 12.7 mmol/L Normal [facility] Comment on above: Performed By: #### L IPID, TSH, CMP #### [facility] [address] [place] [address] Dr. Leesa Urbina AST [Catalytic activity/Vol] 19 U/L Normal 15-37 [facility] Comment on above: Performed By: #### L IPID, TSH, CMP #### [facility] [address] [place] [address] Dr. Leesa Urbina Bilirubin [Mass/Vol] 0.4 mg/dL Normal 0.2-1.0 [facility] Comment on above: Performed By: #### L IPID, TSH, CMP #### [facility] [address] [address] [address] Leesa Urbina Calcium [Mass/Vol] 8.5 mg/dL Normal 8.5-10.[address] [facility] Comment on above: Performed By: #### L IPID, TSH, CMP #### [facility] [address] [address] [address] Leesa Urbina Chloride [Moles/Vol] 107 mmol/L Normal 98-107 [facility] Comment on above: Performed By: #### L IPID, TSH, CMP #### [facility] [address] [place] [address] Dr. Leesa Urbina CO2 [Moles/Vol] 27.4 mmol/L Normal 21.0-32.0 [facility] Comment on above: Performed By: #### L IPID, TSH, CMP #### [facility] [address] [place] [address] Dr. Leesa Urbina Creatinine [Mass/Vol] 1.06 mg/dL Normal 0.70-1.30 [facility] Comment on above: Performed By: #### L IPID, TSH, CMP #### [facility] [address] [place] [address] Dr. Leesa Urbina EGFR-AF GUINEAN >60 Normal >=60 [facility] Comment on above: Performed By: #### L IPID, TSH, CMP #### [facility] [address] [place] [address] Dr. Leesa Urbina EGFR-NON AF GUINEAN >60 Normal >=60 [facility] Comment on above: Performed By: #### L IPID, TSH, CMP #### [facility] [address] [place] [address] Dr. Leesa Urbina Globulin (S) [Mass/Vol] 3.1 g/dL Normal T [facility] Comment on above: Performed By: #### L IPID, TSH, CMP #### [facility] [address] [address] [address] Leesa Urbina Glucose [Mass/Vol] 171 mg/dL Critically high 74-106 [facility] Comment on above: Performed By: #### L IPID, TSH, CMP #### [facility] [address] [place] [address] Dr. Leesa Urbina Potassium [Moles/Vol] 4.1 mmol/L Normal 3.5-5.1 [facility] Comment on above: Performed By: #### L IPID, TSH, CMP #### [facility] [address] [address] [address] Leesa Urbina Protein [Mass/Vol] 6.5 g/dL Normal 6.4-8.[address] [facility] Comment on above: Performed By: #### L IPID, TSH, CMP #### [facility] [address] [place] [address] Dr. Leesa Urbina Sodium [Moles/Vol] 143 mmol/L Normal 136-[address] [facility] Comment on above: Performed By: #### L IPID, TSH, CMP #### [facility] [address] [address] [address] Leesa Urbina Urea nitrogen [Mass/Vol] 24.0 mg/dL Critically high 7.0-18.0 [facility] Comment on above: Performed By: #### L IPID, TSH, CMP #### [facility] [address] [place] [address] Dr. Leesa Urbina Urea nitrogen/Creatinine [Mass ratio] 22.6 mg/mg Normal [facility] Comment on above: Performed By: #### L IPID, TSH, CMP #### [facility] [address] [place] [address] Dr. Leesa Urbina Basophils Auto (Bld) [#/Vol] Ordered By: Juan Ventura on 12-05-2021 Basophils (Bld) [#/Vol] 0.1 10*3/uL 0.0-0.2 [facility] Basophils/100 WBC Auto (Bld) Ordered By: Juan Ventura on 12-05-2021 Basophils/100 WBC (Bld) 0.9 % [facility] Blood hemoglobin measurement (mass/volume)Ordered By: Juan Ventura on 12-05-2021 Hemoglobin (Bld) [Mass/Vol] 12.4 g/dL 13.0-17.0 [facility] Blood leukocytes automated c ount (number/volume)Ordered By: Juan Ventura on 12-05-2021 WBC (Bld) [#/Vol] 7.0 10*3/uL 4.5-11.0 [facility] COVID-19 Positive/NegativeOr dered By: Juan Ventura on 12-05-2021 SARS-CoV-2 (COVID-19) N gene RENETTA+probe Ql (Resp) Negative Negative [facility] Comment on above: Testing for SARS-CoV -2 by RT-PCR This test was developed and its performance characteristics determined by [employer] and validated at the [facility]. This test has not been FDA cleared [...] on 12-05-2021 Creatinine [Mass/Vol] 1.28 mg/dL 0.64-1.27 [facility] Eosinophils Auto (Bld) [#/Vo l]Ordered By: Juan Ventura on 12-05-2021 Eosinophils (Bld) [#/Vol] 0.1 10*3/uL 0.0-0.45 [facility] Eosinophils/100 WBC Auto (Bl d)Ordered By: Juan Ventura on 12-05-2021 Eosinophils/100 WBC (Bld) 2.1 % [facility] Erythrocyte distribution wid th Auto (RBC) [Ratio]Ordered By: Juan Ventura on 12-05-2021 Erythrocyte distribution width (RBC) [Ratio] 14.6 % 12.0-14.8 [facility] Estimated glomerular filtrat ion rate (GFR) non- AmericanOrdered By: Juan Ventura on 12-05-2021 GFR/1.73 sq M.predicted among non-blacks MDRD (S/P/Bld) [Vol rate/Area] 54 mL/Min [facility] Hematocrit Auto (Bld) [Volum e fraction]Ordered By: Juan Ventura on 12-05-2021 Hematocrit (Bld) [Volume fraction] 37.3 % 38.8-50.0 [facility] Laboratory - Hematology and Cell countsOrdered By: Juan Ventura on 12-05-2021 Nucleated RBC/100 WBC (Bld) [Ratio] 0.0 % 0-0.5 [facility] Lymphocytes Auto (Bld) [#/Vo l]Ordered By: Juan Ventura on 12-05-2021 Lymphocytes (Bld) [#/Vol] 1.4 10*3/uL 1.00-4.8 [facility] Lymphocytes/100 WBC Auto (Bl d)Ordered By: Juan Ventura on 12-05-2021 Lymphocytes/100 WBC (Bld) 19.8 % [facility] MCH Auto (RBC) [Entitic mass ]Ordered By: Juan Ventura on 12-05-2021 MCH (RBC) [Entitic mass] 30.8 pg 27.5-35.2 [facility] MCHC Auto (RBC) [Mass/Vol]Or dered By: Juan Ventura on 12-05-2021 MCHC (RBC) [Mass/Vol] 33.1 g/dL 32.5-35.6 [facility] MCV Auto (RBC) [Entitic vol] Ordered By: Juan Ventura on 12-05-2021 MCV (RBC) [Entitic vol] 93.1 fL 83.5-101 [facility] Monocytes Auto (Bld) [#/Vol] Ordered By: Juan Ventura on 12-05-2021 Monocytes (Bld) [#/Vol] 0.5 10*3/uL 0.0-0.8 [facility] Monocytes/100 WBC Auto (Bld) Ordered By: Juan Ventura on 12-05-2021 Monocytes/100 WBC (Bld) 7.3 % [facility] Neutrophils Auto (Bld) [#/Vo l]Ordered By: Juan Ventura on 12-05-2021 Neutrophils (Bld) [#/Vol] 4.9 10*3/uL 1.8-7.7 [facility] Neutrophils/100 WBC Auto (Bl d)Ordered By: Juan Ventura on 12-05-2021 Neutrophils/100 WBC (Bld) 69.9 % [facility] No Panel InformationOrdered By: Juan Ventura on 12-05-2021 Estimated GFR () > 60 mL/Min [facility] Comment on above: GFR estimated refere nce range: According to KDOQI guidelines, <60 ml/min/1.73m2 is sufficient to diagnose a patient with chronic kidney disease. Pharmacy Creatinine Clearance (Chem N/A [facility] Platelet mean volume Auto (B ld) [Entitic vol]Ordered By: Juan Ventura on 12-05-2021 Platelet mean volume (Bld) [Entitic vol] 8.9 fL 6.6-10.1 [facility] Platelets Auto (Bld) [#/Vol] Ordered By: Juan Ventura on 12-05-2021 Platelets (Bld) [#/Vol] 194 10*3/uL 150-450 [facility] RBC Auto (Bld) [#/Vol]Ordere d By: Juan Ventura on 12-05-2021 RBC (Bld) [#/Vol] 4.00 10*6/uL 3.90-5.60 [facility] Serum or plasma calcium fco urement (mass/volume)Ordered By: Juan Ventura on 12-05-2021 Calcium [Mass/Vol] 9.2 mg/dL 8.2-10.2 [facility] Serum or plasma chloride daniel surement (moles/volume)Ordered By: Juan Ventura on 12-05-2021 Chloride [Moles/Vol] 107 mmol/L 95-114 [facility] Serum or plasma glucose fco urement (mass/volume)Ordered By: Juan Ventura on 12-05-2021 Glucose [Mass/Vol] 117 mg/dL 70-100 [facility] Comment on above: ADA recommended refe rence range Random Glucose Reference Range is dependent on time and content of last meal. Glucose of more than 200 mg/dL in a nonstressed, ambulatory subject supports the diagnosis of Diabetes Mellitus. Serum or plasma potassium me asurement (moles/volume)Ordered By: Juan Ventura on 12-05-2021 Potassium [Moles/Vol] 4.6 mmol/L 3.5-5.1 [facility] Serum or plasma sodium measu rement (moles/volume)Ordered By: Juan Ventura on 12-05-2021 Sodium [Moles/Vol] 141 mmol/L 136-146 [facility] Serum or plasma total carbon dioxide measurement (moles/volume)Ordered By: Juan Ventura on 12-05-2021 CO2 [Moles/Vol] 26.2 mmol/L 22.0-30.0 [facility] Serum or plasma urea nitroge n measurement (mass/volume)Ordered By: Juan Ventura on 12-05-2021 Urea nitrogen [Mass/Vol] 23 mg/dL 9-23 [facility] CBC AUTO DIFFon 11-05-2021 BASO # 0.1 103/ul Normal 0.0-0.1 [facility] Comment on above: Performed By: #### C BC #### [facility] [address] [address] [address] Leesa Urbina Basophils/100 WBC (Bld) 0.8 % Normal 0.2-2.0 [facility] Comment on above: Performed By: #### C BC #### [facility] [address] [address] [address] Leesa Urbina EO # 0.4 103/ul Normal 0.0-0.7 [facility] Comment on above: Performed By: #### C BC #### [facility] [address] [place] [address] Dr. Leesa Urbina Eosinophils/100 WBC (Bld) 5.6 % Normal 0.9-7.0 [facility] Comment on above: Performed By: #### C BC #### [facility] [address] [place] [address] Dr. Leesa Urbina Erythrocyte distribution width (RBC) [Ratio] 13.4 % Normal 11.0-15.0 [facility] Comment on above: Performed By: #### C BC #### [facility] [address] [place] [address] Dr. Leesa Urbina Hematocrit (Bld) [Volume fraction] 36.1 % Critically low 42.0-54.0 [facility] Comment on above: Performed By: #### C BC #### [facility] [address] [place] [address] Dr. Leesa Urbina Hemoglobin (Bld) [Mass/Vol] 11.8 g/dL Critically low 14.0-18.0 [facility] Comment on above: Performed By: #### C BC #### [facility] [address] [place] [address] Dr. Leesa Urbina IG # 0.02 10e3/ul Normal 0.00-0.03 [facility] Comment on above: Performed By: #### C BC #### [facility] [address] [place] [address] Dr. Leesa Urbina IG % 0.3 % Normal 0.0-0.5 [facility] Comment on above: Performed By: #### C BC #### [facility] [address] [place] [address] Dr. Leesa Urbina LYMPH # 1.8 103/ul Normal 1.2-3.8 [facility] Comment on above: Performed By: #### C BC #### [facility] [address] [place] [address] Dr. Leesa Urbina Lymphocytes/100 WBC (Bld) 28.4 % Normal 20.5-60.0 [facility] Comment on above: Performed By: #### C BC #### [facility] [address] [place] [address] Dr. Leesa Urbina MANUAL DIFF REQ NO Normal [facility] Comment on above: Performed By: #### C BC #### [facility] [address] [place] [address] Dr. Leesa Urbina MCH (RBC) [Entitic mass] 30.7 pg Normal 25.9-34.0 [facility] Comment on above: Performed By: #### C BC #### [facility] [address] [place] [address] Dr. Leesa Urbina MCHC (RBC) [Mass/Vol] 32.7 g/dL Normal 29.9-35.2 [facility] Comment on above: Performed By: #### C BC #### [facility] [address] [place] [address] Dr. Leesa Urbina MCV (RBC) [Entitic vol] 94.0 fL Normal 80.0-94.0 [facility] Comment on above: Performed By: #### C BC #### [facility] [address] [place] [address] Dr. Leesa Urbina MONO # 0.5 103/ul Normal 0.3-0.8 [facility] Comment on above: Performed By: #### C BC #### [facility] [address] [place] [address] Dr. Leesa Urbina Monocytes/100 WBC (Bld) 8.1 % Normal 1.7-12.0 [facility] Comment on above: Performed By: #### C BC #### [facility] [address] [place] [address] Dr. Leesa Urbina NEUT # 3.5 103/ul Normal 1.4-6.5 [facility] Comment on above: Performed By: #### C BC #### [facility] [address] [place] [address] Dr. Leesa Urbina Neutrophils/100 WBC (Bld) 56.8 % Normal 43.0-75.0 [facility] Comment on above: Performed By: #### C BC #### [facility] [address] [place] [address] Dr. Leesa Urbina Platelet mean volume (Bld) [Entitic vol] 10.3 fL Normal 9.5-13.5 [facility] Comment on above: Performed By: #### C BC #### [facility] [address] [address] [address] Leesa Urbina PLT 179 103/ul Normal 150-450 [facility] Comment on above: Performed By: #### C BC #### [facility] [address] [place] [address] Dr. Leesa Urbina RBC 3.84 106/ul Critically low 4.70-6.10 [facility] Comment on above: Performed By: #### C BC #### [facility] [address] [place] [address] Dr. Leesa Urbina WBC 6.2 103/ul Normal 4.0-11.0 [facility] Comment on above: Performed By: #### C BC #### [facility] [address] [place] [address] Dr. Leesa Urbina GLYCOHEMOGLOBIN A1Con 2021 ADA RECOMMENDATION SEE BELOW Normal [facility] Comment on above: Result Comment: ADA RECOMMENDED LIMIT 4.0 - 6.0 ADA THERAPEUTIC TARGET < 7.0 ACTION SUGGESTED > 7.0 Performed By: #### L IPID, TSH, CMP #### [facility] [address] [place] [address] Dr. Leesa Urbina Glucose [Mass/Vol] 151 mg/dL Normal [facility] Comment on above: Performed By: #### L IPID, TSH, CMP #### [facility] [address] [place] [address] Dr. Leesa Urbina HbA1c (Bld) [Mass fraction] 6.9 % Critically high 4.5-6.2 [facility] Comment on above: Performed By: #### L IPID, TSH, CMP #### [facility] [address] [place] [address] Dr. Leesa Urbina LIPID PROFILEon 11-05-2021 CHOL-HDL RATIO NORM SEE BELOW Normal [facility] Comment on above: Result Comment: 3.3 - 4.4 LOW RISK 4.4 - 7.1 AVERAGE RISK 7.1 - 11.0 MODERATE RISK >11.0 HIGH RISK Performed By: #### L IPID, TSH, CMP #### [facility] [address] [place] [address] Dr. Leesa Urbina Cholesterol [Mass/Vol] 150 mg/dL Normal <=200 [facility] Comment on above: Performed By: #### L IPID, TSH, CMP #### [facility] [address] [place] [address] Dr. Leesa Urbina Cholesterol in HDL [Mass/Vol] 60 mg/dL Normal 40-60 [facility] Comment on above: Performed By: #### L IPID, TSH, CMP #### [facility] [address] [place] [address] Dr. Leesa Urbina Cholesterol in LDL [Mass/Vol] 70.8 mg/dL Normal [facility] Comment on above: Performed By: #### L IPID, TSH, CMP #### [facility] [address] [place] [address] Dr. Leesa Urbina Cholesterol.total/Kandy sterol in HDL [Mass ratio] 2.5 {ratio} Normal [facility] Comment on above: Performed By: #### L IPID, TSH, CMP #### [facility] [address] [place] [address] Dr. Leesa Urbina HDL NORMAL > or = 60 mg/dl - LO W CARDIOVASCULAR RISK <40 mg/dl - HIGH CARDIOVASCULAR RISK Normal [facility] Comment on above: Performed By: #### L IPID, TSH, CMP #### [facility] [address] [place] [address] Dr. Leesa Urbina LDL CALC NORMAL SEE BELOW Normal [facility] Comment on above: Result Comment: <100 mg/dl OPTIMAL 100 - 129 mg/dl NEAR OR ABOVE OPTIMAL 130 - 159 mg/dl BORDERLINE HIGH 160 - 189 mg/dl HIGH >190 mg/dl VERY HIGH Performed By: #### L IPID, TSH, CMP #### [facility] [address] [address] [address] Leesa Urbina Triglyceride [Mass/Vol] 96 mg/dL Normal <=150 [facility] Comment on above: Performed By: #### L IPID, TSH, CMP #### [facility] [address] [address] [address] Leesa Urbina VLDL CALC 19.2 mg/dL Normal [facility] Comment on above: Performed By: #### L IPID, TSH, CMP #### [facility] [address] [address] [address] Leesa Urbina MICROALB CREAT RATIO RANDOMo n 11-05-2021 mALB <1.3 Normal <=30.0 [facility] Comment on above: Performed By: #### L IPID, TSH, CMP #### [facility] [address] [address] [address] Leesa JOHNS CR RATIO 11.4 mg/g Normal 0.0-29.9 [facility] Comment on above: Performed By: #### L IPID, TSH, CMP #### [facility] [address] [address] [address] Leesa Urbina MALB CR RATIO RANGE SEE BELOW Normal [facility] Comment on above: Result Comment: NO M ICROALBUMINURIA 0-29 MG/G CLINICAL MICROALBUMINURIA 30-300 MG/G MACROALBUMINURIA >300 MG/G Performed By: #### L IPID, TSH, CMP #### [facility] [address] [place] [address] Dr. Leesa Urbina URINE CREAT 114.03 mg/dL Normal 20.00-300.00 [facility] Comment on above: Performed By: #### L IPID, TSH, CMP #### [facility] [address] [address] [address] Leesa Urbina PROF 14(COMP METB)on 022 Albumin [Mass/Vol] 2.3 g/dL Critically low 3.4-5.0 [facility] Comment on above: Performed By: #### L IPID, TSH, CMP #### [facility] [address] [address] [address] Leesa Urbina Albumin/Globulin [Mass ratio] 0.5 {ratio} Normal [facility] Comment on above: Performed By: #### L IPID, TSH, CMP #### [facility] [address] [address] [address] Leesa Urbina ALP [Catalytic activity/Vol] 77 U/L Normal 46-116 [facility] Comment on above: Performed By: #### L IPID, TSH, CMP #### [facility] [address] [address] [address] Leesa Urbina ALT [Catalytic activity/Vol] 16 U/L Normal 16-63 [facility] Comment on above: Performed By: #### L IPID, TSH, CMP #### [facility] [address] [address] [address] Leesa Urbina Anion gap [Moles/Vol] 13.8 mmol/L Normal [facility] Comment on above: Performed By: #### L IPID, TSH, CMP #### [facility] [address] [address] [address] Leesa Urbina AST [Catalytic activity/Vol] 15 U/L Normal 15-37 [facility] Comment on above: Performed By: #### L IPID, TSH, CMP #### [facility] [address] [address] [address] Leesa Urbina Bilirubin [Mass/Vol] 0.5 mg/dL Normal 0.2-1.0 [facility] Comment on above: Performed By: #### L IPID, TSH, CMP #### [facility] [address] [address] [address] Leesa Urbina Calcium [Mass/Vol] 8.7 mg/dL Normal 8.5-10.[address] [facility] Comment on above: Performed By: #### L IPID, TSH, CMP #### [facility] [address] [address] [address] Leesa Urbina Chloride [Moles/Vol] 107 mmol/L Normal 98-107 [facility] Comment on above: Performed By: #### L IPID, TSH, CMP #### [facility] [address] [address] [address] Leesa rUbina CO2 [Moles/Vol] 26.2 mmol/L Normal 21.0-32.0 [facility] Comment on above: Performed By: #### L IPID, TSH, CMP #### [facility] [address] [place] [address] Dr. Leesa Urbina Creatinine [Mass/Vol] 1.25 mg/dL Normal 0.70-1.30 [facility] Comment on above: Performed By: #### L IPID, TSH, CMP #### [facility] [address] [place] [address] Dr. Leesa Urbina EGFR-AF GUINEAN >60 Normal >=60 [facility] Comment on above: Performed By: #### L IPID, TSH, CMP #### [facility] [address] [place] [address] Dr. Leesa Urbina EGFR-NON AF GUINEAN 55 mL/min/1.73m2 Critically low >=60 [facility] Comment on above: Performed By: #### L IPID, TSH, CMP #### [facility] [address] [place] [address] Dr. Leesa Urbina Globulin (S) [Mass/Vol] 4.3 g/dL Normal [facility] Comment on above: Performed By: #### L IPID, TSH, CMP #### [facility] [address] [place] [address] Dr. Leesa Urbina Glucose [Mass/Vol] 137 mg/dL Critically high 74-106 [facility] Comment on above: Performed By: #### L IPID, TSH, CMP #### [facility] [address] [place] [address] Dr. Leesa Urbina Potassium [Moles/Vol] 4.0 mmol/L Normal 3.5-5.1 [facility] Comment on above: Performed By: #### L IPID, TSH, CMP #### [facility] [address] [address] [address] Leesa Urbina Protein [Mass/Vol] 6.6 g/dL Normal 6.4-8.2 [facility] Comment on above: Performed By: #### L IPID, TSH, CMP #### [facility] [address] [address] [address] Leesa Urbina Sodium [Moles/Vol] 143 mmol/L Normal 136-145 [facility] Comment on above: Performed By: #### L IPID, TSH, CMP #### [facility] [address] [address] [address] Leesa Urbina Urea nitrogen [Mass/Vol] 24.0 mg/dL Critically high 7.0-18.0 [facility] Comment on above: Performed By: #### L IPID, TSH, CMP #### [facility] [address] [place] [address] Dr. Leesa Urbina Urea nitrogen/Creatinine [Mass ratio] 19.2 mg/mg Normal [facility] Comment on above: Performed By: #### L IPID, TSH, CMP #### [facility] [address] [address] [address] Leesa Urbina TSHon 11-05-2021 TSH 0.996 uIU/mL Normal 0.358-3.740 [facility] Comment on above: Performed By: #### L IPID, TSH, CMP #### [facility] [address] [place] [address] Dr. Leesa Urbina Tobacco Screening.on 022 Adult depression screening assessment No [facility] 250 DO Work Phone: Fall risk assessment a) No falls within the last year [facility] 250 DO Work Phone: Tobacco use status [facility] b) No M [facility] 250 DO Work Phone: Vital Signs Date Time Vital Sign Value Performing Clinician Facility 10-02-2024 11:54-0400 Body height 180.3 cm Missy Khoury MD Work Phone: [facility] 10-02-2024 11:54-0400 Body mass index (BMI) [Ratio] 23.15 kg/m2 Missy Khoury MD Work Phone: [facility] 10-02-2024 11:54-0400 Body weight 75.3 kg Missy Khoury MD Work Phone: [facility] 10-02-2024 11:54-0400 Diastolic blood pressure 64 mm[Hg] Missy Khoury MD Work Phone: [facility] 10-02-2024 11:54-0400 Heart rate 64 /min Missy Khoury MD Work Phone: [facility] 10-02-2024 11:54-0400 Systolic blood pressure 142 mm[Hg] Missy Khoury MD Work Phone: [facility] 09-04-2024 08:03-0400 Body height 175.3 cm Nirav Bello DO Work Phone: [facility] 09-04-2024 08:03-0400 Body mass index (BMI) [Ratio] 24.96 kg/m2 Nirav Bello DO Work Phone: [facility] 09-04-2024 08:03-0400 Body weight 76.66 kg Nirav Bello DO Work Phone: [facility] 09-04-2024 08:03-0400 Diastolic blood pressure 72 mm[Hg] Nirav Bello DO Work Phone: [facility] 09-04-2024 08:03-0400 Heart rate 62 /min Nirav Bello DO Work Phone: [facility] 09-04-2024 08:03-0400 SaO2% (BldA) [Mass fraction] 96 % Nirav Bello DO Work Phone: [facility] 09-04-2024 08:03-0400 Systolic blood pressure 138 mm[Hg] Nirav Bello DO Work Phone: [facility] 08-09-2024 11:25-0400 Diastolic blood pressure 87 mm[Hg] Nirav Bello DO Work Phone: [facility] 08-09-2024 11:25-0400 Heart rate 74 /min Nirav Bello DO Work Phone: [facility] 08-09-2024 11:25-0400 Respiratory rate 16 /min Nirav Bello DO Work Phone: [facility] 08-09-2024 11:25-0400 SaO2% (BldA) [Mass fraction] 96 % Nirav Bello DO Work Phone: [facility] 08-09-2024 11:25-0400 Systolic blood pressure 171 mm[Hg] Nirav Bello DO Work Phone: [facility] 08-09-2024 10:05-0400 Body height 180.34 cm Nirav Bello DO Work Phone: [facility] 08-09-2024 10:05-0400 Body temperature 97.5 [degF] Nirav Bello DO Work Phone: [facility] 08-09-2024 10:05-0400 Body weight 75.29 kg Nirav Bello DO Work Phone: [facility] 05-10-2024 09:57-0500 Body height 175.3 cm Nirav Bello DO Work Phone: [facility] 05-10-2024 09:57-0500 Body mass index (BMI) [Ratio] 24.81 kg/m2 Nirav Bello DO Work Phone: [facility] 05-10-2024 09:57-0500 Body weight 76.2 kg Nirav Bello DO Work Phone: [facility] 05-10-2024 09:57-0500 Diastolic blood pressure 66 mm[Hg] Nirav Bello DO Work Phone: [facility] 05-10-2024 09:57-0500 Heart rate 72 /min Nirav Ace DO Work Phone: [facility] 05-10-2024 09:57-0500 SaO2% (BldA) [Mass fraction] 97 % Nirav Ace DO Work Phone: [facility] 05-10-2024 09:57-0500 Systolic blood pressure 136 mm[Hg] Nirav Bello DO Work Phone: [facility] 05-01-2024 14:07-0500 Diastolic blood pressure 94 mm[Hg] Missy Khoury MD Work Phone: [facility] 05-01-2024 14:07-0500 Systolic blood pressure 174 mm[Hg] Missy Khoury MD Work Phone: [facility] 05-01-2024 13:39-0500 Body height 180.3 cm Missy Khoury MD Work Phone: [facility] 05-01-2024 13:39-0500 Body mass index (BMI) [Ratio] 23.99 kg/m2 Missy Khoury MD Work Phone: [facility] 05-01-2024 13:39-0500 Body weight 78.02 kg Missy Khoury MD Work Phone: [facility] 05-01-2024 13:39-0500 Heart rate 48 /min Missy Khoury MD Work Phone: [facility] 02-21-2024 07:52-0400 Body height 180.[address] 02-21-2024 07:52-0400 Body mass index (BMI) [Ratio] 23.71 kg/m2 [address] 02-21-2024 07:52-0400 Body weight 77.[address] 02-21-2024 07:52-0400 Diastolic blood pressure 84 mm[Hg] [address] 02-21-2024 07:52-0400 Systolic blood pressure 142 mm[Hg] Sindi 2 [facility] 02-07-2024 09:44-0400 Diastolic blood pressure 86 mm[Hg] Sindi 1 [facility] 02-07-2024 09:44-0400 Heart rate 66 /min Sindi 1 [facility] 02-07-2024 09:44-0400 Systolic blood pressure 138 mm[Hg] Sindi 1 [facility] 01-13-2024 16:15-0400 Diastolic blood pressure 100 mm[Hg] Missy Khoury MD Work Phone: [facility] 01-13-2024 16:15-0400 Systolic blood pressure 162 mm[Hg] Missy Khoury MD Work Phone: [facility] 01-13-2024 15:24-0400 Body height 180.3 cm Missy Khoury MD Work Phone: [facility] 01-13-2024 15:24-0400 Body mass index (BMI) [Ratio] 23.71 kg/m2 Missy Khoury MD Work Phone: [facility] 01-13-2024 15:24-0400 Body weight 77.11 kg Missy Khoury MD Work Phone: [facility] 01-13-2024 15:24-0400 Heart rate 72 /min Missy Khoury MD Work Phone: [facility] 01-11-2024 09:54-0400 Body height 175.3 cm Nirav Bello DO Work Phone: [facility] 01-11-2024 09:54-0400 Body mass index (BMI) [Ratio] 24.22 kg/m2 Nirav Bello DO Work Phone: [facility] 01-11-2024 09:54-0400 Body weight 74.39 kg Nirav Bello DO Work Phone: [facility] 01-11-2024 09:54-0400 Heart rate 75 /min Nirav Ace DO Work Phone: [facility] 01-11-2024 09:54-0400 SaO2% (BldA) [Mass fraction] 97 % Nirav Bello DO Work Phone: [facility] 07-13-2023 08:34-0500 Body height 180.3 cm Epifanio Davis MD Work Phone: [facility] 07-13-2023 08:34-0500 Body mass index (BMI) [Ratio] 23.99 kg/m2 Epifanio Davis MD Work Phone: [facility] 07-13-2023 08:34-0500 Body weight 78.02 kg Epifanio Davis MD Work Phone: [facility] 07-13-2023 08:34-0500 Diastolic blood pressure 64 mm[Hg] Epifanio Davis MD Work Phone: [facility] 07-13-2023 08:34-0500 Heart rate 60 /min Epifanio Davis MD Work Phone: [facility] 07-13-2023 08:34-0500 Systolic blood pressure 108 mm[Hg] Epifanio Davis MD Work Phone: [facility] 11-17-2022 14:15-0400 Body height 180.34 cm Imad Asaad Other [employer] Other 11-17-2022 14:15-0400 Body mass index (BMI) [Ratio] 23.71 kg/m2 Imad Asaad Other [employer] Other 11-17-2022 14:15-0400 Body weight 77.11 kg Imad Asaad Other [employer] Other 11-17-2022 14:15-0400 Diastolic blood pressure 78 mm[Hg] Imad Asaad Other [employer] Other 11-17-2022 14:15-0400 Systolic blood pressure 127 mm[Hg] Imad Mcad Other [facility] [employer] Other 07-14-2022 09:08-0500 Body height 180.34 cm Nirav Bello Work Phone: [facility] 250 DO Work Phone: 07-14-2022 09:08-0500 Body mass index (BMI) [Ratio] 24.13 kg/m2 Nirav Bello Work Phone: [facility] 250 DO Work Phone: 07-14-2022 09:08-0500 Body surface area Derived from formula 1.98 m2 Nirav Bello Work Phone: [facility] 250 DO Work Phone: 07-14-2022 09:08-0500 Body weight 78.47 kg Nirav Bello Work Phone: [facility] 250 DO Work Phone: 07-14-2022 09:08-0500 Diastolic blood pressure 78 mm[Hg] Nirav Bello Work Phone: [facility] 250 DO Work Phone: 07-14-2022 09:08-0500 Heart rate 68 /min Nirav Bello Work Phone: [facility] 250 DO Work Phone: 07-14-2022 09:08-0500 Systolic blood pressure 124 mm[Hg] Nirav Bello Work Phone: [facility] 250 DO Work Phone: 07-03-2021 15:20-0500 Diastolic blood pressure 78 mm[Hg] Nirav Bello Work Phone: [facility] 250 DO Work Phone: 07-03-2021 15:20-0500 Heart rate 65 /min Nirav Bello Work Phone: [facility] 250 DO Work Phone: 07-03-2021 15:20-0500 Systolic blood pressure 136 mm[Hg] Nirav Bello Work Phone: [facility] 250 DO Work Phone: 07-03-2021 15:17-0500 Body height 180.34 cm Nirav Bello Work Phone: [facility] 250 DO Work Phone: 07-03-2021 15:17-0500 Body mass index (BMI) [Ratio] 24.97 kg/m2 Nirav Bello Work Phone: [facility] 250 DO Work Phone: 07-03-2021 15:17-0500 Body surface area Derived from formula 2.01 m2 Nirav Bello Work Phone: [facility] 250 DO Work Phone: 07-03-2021 15:17-0500 Body weight 81.19 kg Nirav Bello Work Phone: [facility] 250 DO Work Phone: 07-03-2021 15:17-0500 Diastolic blood pressure 80 mm[Hg] Nirav Bello Work Phone: [facility] 250 DO Work Phone: 07-03-2021 15:17-0500 Systolic blood pressure 151 mm[Hg] Nirav Bello Work Phone: [facility] 250 DO Work Phone: Encounters Encounter Date Encounter Type Care Provider Facility Start: 10-26-2024 End: 10-26-2024 Nanette Barrow MD Work Phone: [facility] Start: 10-26-2024 End: 10-26-2024 Bamrichie Barrow MD Work Phone: [facility] Start: 10-26-2024 End: 10-26-2024 Office outpatient visit 15 minutes Laura Barrow MD Work Phone: [facility] Comment on above: Seborrheic keratosis (Primary Dx); Lentigines; Actinic keratosis; Neoplasm of unspecified behavior of bone, soft tissue, and skin; History of malignant neoplasm of skin Start: 10-26-2024 End: 10-26-2024 ambulatory LAURA BARROW Not Available Start: 10-02-2024 End: 10-02-2024 Office outpatient visit 25 minutes Missy Khoury MD Work Phone: [facility] Comment on above: Paroxysmal atrial fi brillation [...] Former smoker Start: 10-02-2024 End: 10-02-2024 ambulatory [facility] Start: 09-13-2024 End: 09-13-2024 Bamboo flowsheet Aamir Talbert MD Work Phone: [facility] Start: 09-13-2024 End: 09-13-2024 Bamboo flowsheet Aamir Talbert MD Work Phone: [facility] Start: 09-13-2024 End: 09-13-2024 Postop follow up visit related to original px Aamir Talbert MD Work Phone: [facility] Comment on above: Encounter for remova l of sutures Start: 09-13-2024 End: 09-13-2024 ambulatory AAMIR Nona TALBERT Not Available Start: 09-04-2024 End: 09-04-2024 Office outpatient visit 40 minutes Nirav Bello DO Work Phone: [facility] Comment on above: PAF (paroxysmal atri al fibrillation) (CMS/HCC) (Primary Dx); Stage 3a chronic kidney disease (HCC) ([facility]/HCC); Type 2 diabetes mellitus with other specified complication, without long-term current use of insulin; Mixed hyperlipidemia (CMS/HCC); Exocrine pancreatic insufficiency (CMS/HCC); Primary hypertension ([facility]/HCC) Start: 09-04-2024 End: 09-04-2024 ambulatory NIRAV BELLO Not Available Start: 08-30-2024 End: 08-30-2024 Patient encounter procedure Laura Barrow MD Work Phone: [facility] Comment on above: Squamous cell [...] Nirav Bello DO Work Phone: [facility] [place] Start: 08-09-2024 End: 08-09-2024 ambulatory Nirav Bello DO Work Phone: [facility] Work Phone: Start: 08-04-2024 End: 08-04-2024 [...] End: 07-14-2024 Nanette Barrow MD Work Phone: [facility] Start: 07-14-2024 End: 07-14-2024 [...] encounter procedure Laura Barrow MD Work Phone: [facility] Comment on above: Basal cell carcinoma (BCC) of skin of left upper extremity including shoulder (Primary Dx); Skin neoplasm Start: 06-30-2024 End: 06-30-2024 ambulatory LAURA Alicia BARROW Not Available Start: 05-10-2024 End: 05-10-2024 Bamboo flowsheet Nirav Bello DO Work Phone: [facility] Start: 05-10-2024 End: 05-10-2024 Bamboo flowsheet Nirav Bello DO Work Phone: [facility] Start: 05-10-2024 End: 05-10-2024 Office outpatient visit 40 minutes Nirav Bello DO Work Phone: [facility] Comment on above: Allergic sinusitis [...] 25 minutes Missy Khoury MD Work Phone: [facility] Comment on above: Encounter to discuss test results (Primary Dx); Paroxysmal atrial fibrillation (Multi); Nonrheumatic mitral valve regurgitation; 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); Essential hypertension; Prostate cancer (Multi); PVC (premature ventricular contraction); Mixed hyperlipidemia; Type 2 diabetes mellitus without complication, without long-term current use of insulin (Multi); 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; Former smoker; Body mass index (BMI) of 23.0 to 23.9 in adult Start: 05-01-2024 End: 05-01-2024 ambulatory [facility] Start: 04-27-2024 End: 04-27-2024 Bamboo flowsheet [...] Department Unsolicited Start: 02-21-2024 End: 02-21-2024 ambulatory [facility] Start: 02-21-2024 End: 02-21-2024 Subsequent hospital visit by physician Sindi Hernadez Echo/Vasc Room 2 [facility] Comment on above: PVC (premature ventr icular contraction); Paroxysmal atrial fibrillation (Multi) Start: 02-07-2024 End: 02-07-2024 Subsequent hospital visit by physician Sindi Farr Nm 1 [facility] Comment on above: PVC (premature ventr icular contraction); 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; Ventricular arrhythmia; Abnormal electrocardiogram (ECG) (EKG) Start: 02-07-2024 End: 02-07-2024 ambulatory [facility] Start: 02-03-2024 End: 02-03-2024 Clinisync Result Encounter Generic External Data Provider [facility] External Department Unsolicited Start: 02-03-2024 End: 02-03-2024 Clinisync Result Encounter Generic External Data Provider [facility] External Department Unsolicited Start: 01-13-2024 End: 01-13-2024 Office outpatient visit 25 minutes Missy Khoury MD Work Phone: [facility] Comment on above: Ventricular arrhythm ia (Primary Dx); PVC (premature ventricular contraction); Paroxysmal atrial fibrillation (Multi); 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; [facility] current use of 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; High risk medication use; Mixed hyperlipidemia; Uncontrolled hypertension; Former smoker; Type 2 diabetes mellitus without complication, without long-term current use of insulin (Multi); Stage 3a chronic kidney disease (Multi); Prostate cancer (Multi); Abnormal electrocardiogram (ECG) (EKG) Start: 01-13-2024 End: 01-13-2024 ambulatory [facility] Start: 01-11-2024 End: 01-11-2024 Office outpatient visit 25 minutes Nirav Bello DO Work Phone: [facility] Comment on above: Primary hypertension (CMS/HCC) [...] DO Nirav Bello Work Phone: [facility] Work Phone: Start: 09-13-2023 End: 09-13-2023 ambulatory DO Nirav Bello Work Phone: [facility] Work Phone: Start: 07-13-2023 End: 07-13-2023 Office outpatient visit 25 minutes Epifanio Davis MD Work Phone: [facility] Comment on above: Benign essential hyp ertension (Primary Dx); Mixed hyperlipidemia; Paroxysmal atrial fibrillation (CMS/HCC); Former smoker Start: 11-26-2022 End: 11-26-2022 ambulatory DO Nirav Bello Work Phone: [facility] Work Phone: Start: 11-26-2022 End: 11-26-2022 Patient encounter procedure DO Nirav Bello Work Phone: [facility] [place] Work Phone: Start: 11-17-2022 End: 11-17-2022 ambulatory Imad Asaad Other [facility] [employer] Other Start: 11-17-2022 Office outpatient ne w 45 minutes Imad Asaad [facility] Start: 11-17-2022 Telephone encounter Imad Asaad [facility] Start: 09-03-2022 End: 09-04-[address] NIRAV BELLO Facility:[facility]1 Start: 07-14-2022 Office outpatient vi sit 25 minutes Nirav Bello Work Phone: [facility] 250 DO Work Phone: Start: 07-14-[address] Nirav Kulkarni Facility:[id number] Start: 05-25-2022 End: 05-26-[address] NIRAV BELLO Facility:[facility] Start: 05-06-2022 End: 05-07-[address] NIRAV BELLO Facility:[facility] Start: 03-27-2022 Rx Renewal Nirav mae Work Phone: [facility] Work Phone: Start: 12-05-2021 End: 12-05-2021 Patient encounter procedure DO Nirav Bello Work Phone: [facility] Start: 11-20-2021 End: 11-21-[address] DOCTOR BISHOP Facility:[facility]1 Start: 11-05-2021 End: 11-06-[address] NIRAV BELLO Facility:[facility]1 Start: 07-03-2021 Office outpatient vi sit 25 minutes Nirav Bello Work Phone: [facility] 250 DO Work Phone: Start: 03-05-2021 Rx Renewal Marina lozada MD Work Phone: -[facility] 250 DO Work Phone: Start: 07-12-2020 End: 07-12-2020 Discharged Recurring Nirav Bello [facility] Vaccine Procedures Date Procedure Procedure [...] Phone: Start: 07-06-2024 [facility] CMP (CMP) (FOR [facility] USE) Generic External Data Provider Start: 06-30-2024 [...] By: #### L IPID, TSH, CMP #### [facility] [address] [place] [address] Dr. Leesa Urbina Start: 11-20-[address] DOCTOR BISHOP Comment on above: Performed By: #### P SAD #### [facility] [address] [address] [address] Leesa Urbina Appendectomy Nirav daniel Work Phone: Cataract surgery Nirav morris Work Phone: Colonoscopy Nirav daniel Work Phone: Comment on above: [id number] Jovanny Yu; Operation on lip Nirav morris Work Phone: Prostatectomy Nirav mae Work Phone: Plan of Treatment Date Care Activity Detail Author Start: 12-24-2032 Screening for malignant neoplasm of colon [facility] Start: 03-16-2026 Glaucoma screening Diabetes: Retinopathy Screening [facility] Start: 11-08-2025 Screening for osteoporosis Bone Density Scan [facility] Start: 04-26-2025 End: 04-26-2025 Patient encounter procedure 04/26/2025 8:35 AM EST Office Visit [facility] [address] [place] [phone] Laura Barrow MD [address] [place] [address] [facility] Start: 12-14-2024 End: 12-14-2024 Patient encounter procedure 12/14/2024 10:30 AM EDT Office Visit [facility] [address] [place] [address] Missy Khoury MD [address] [facility] [address] [place] [address] [facility] Start: 11-14-2024 End: 11-14-2024 Patient encounter procedure 11/14/2024 9:30 AM EDT Office Visit [facility] [address] [place] [phone] Nirav Bello, DO [address] [place] [address] [facility] Start: 11-09-2024 End: 11-09-2024 Patient encounter procedure 11/09/2024 9:30 AM EDT Office Visit [facility] [address] [place] [phone] Nirav Bello, [address] [place] [address] [facility] Start: 10-31-2024 Urine screening for protein Diabetes: Urine Protein Screening [facility] Start: 10-26-2024 End: 10-26-2024 Patient encounter procedure [facility] Comment on above: Arrived Start: 10-02-2024 End: 10-02-2024 Patient encounter procedure 10/02/2024 11:45 AM EDT Office Visit [facility] [address] [place] [address] Missy Khoury MD [address] [place] [address] [facility] Start: 09-22-2024 COVID-19 Vaccine ( season) COVID-19 Vaccine () [facility] Start: 09-13-2024 End: 09-13-2024 Patient encounter procedure [facility] Comment on above: Arrived Start: 08-30-2024 End: 08-30-2024 Patient encounter procedure 08/30/2024 10:30 AM EDT Office Visit [facility] [address] [place] [address] Laura Barrow MD [address] [place] [address] [facility] Start: 08-09-2024 [facility] Start: 08-08-2024 Hemoglobin A1c measurement Diabetes: Hemoglobin A1C [facility] Start: 07-26-2024 End: 07-26-2024 Patient encounter procedure 07/26/2024 2:50 PM EST Office Visit [facility] [address] [place] [address] Laura Barrow MD [address] [place], [place] [id number] Arrived [facility] Comment on above: Arrived Start: 07-18-2024 End: 07-18-2024 Patient encounter procedure [facility] Start: 07-14-2024 End: 07-14-2024 Patient encounter procedure [facility] Comment on above: Arrived Start: 06-30-2024 End: 06-30-2024 Patient encounter procedure [facility] Comment on above: Arrived Start: 05-22-2024 End: 05-22-2024 Patient encounter procedure 05/22/2024 8:30 AM EST Office Visit [facility] [address] [place] [address] Nirav Bello, DO [address] [place] [address] [facility] Start: 05-12-2024 Medicare Annual Wellness (AWV) Medicare Annual Wellness (AWV) [facility] Start: 05-10-2024 End: 05-10-2024 Patient encounter procedure 05/10/2024 9:30 AM EST Office Visit [facility] [address] [place] [address] Nirav Bello, [address] [place] [address] Other thrombophilia (CMS/HCC) [facility] Comment on above: Other thrombophilia (CMS/HCC) Start: 05-01-2024 End: 05-01-2024 Patient encounter procedure 05/01/2024 1:45 PM EST Office Visit [address] [address] Missy Khoury MD [address] [place] [address] [facility] Start: 04-27-2024 End: 04-27-2024 Patient encounter procedure [facility] Comment on above: Arrived Start: 02-28-2024 End: 02-28-2024 Patient encounter procedure 02/28/2024 3:30 PM EDT Office Visit [address] [address] Missy Khoury MD [address] [place] [address] [facility] Start: 02-21-2024 End: 02-21-2024 Patient encounter procedure 02/21/2024 7:45 AM EDT Appointment Josh Baez [facility] [place] [phone] [facility] Start: 02-07-2024 End: 02-07-2024 Professional / ancillary services management 02/07/2024 11:00 AM EDT Ancillary Procedure Dorothy Baez [facility] [place] [phone] [facility] Start: 02-07-2024 End: 02-07-2024 Patient encounter procedure 02/07/2024 10:15 AM EDT Appointment Josh Baez [facility] [place] [phone] [facility] Start: 02-07-2024 End: 02-07-2024 Patient encounter procedure Josh De La Cruz Start: 01-27-2024 End: 01-12-2025 Basic metabolic 2000 panel - Serum or Plasma Basic Metabolic Panel Lab Routine Uncontrolled hypertension Expected: 01/27/2024 (Approximate), Expires: 01/12/2025 [facility] Work Phone: Comment on above: Expected: 01/27/2024 (Approximate), Expi res: 01/12/2025 Start: 01-23-2024 COVID-19 Vaccine ( season) COVID-19 Vaccine () [facility] Start: 01-23-2024 Influenza vaccination Influenza Vaccine (#1) [facility] Start: 01-13-2024 End: 01-12-2025 Holter monitor study Holter Or Event Health Insurance Agent Cardiac Services Routine PVC (premature ventricular contraction) Paroxysmal atrial fibrillation (Multi) Expected: 01/13/2024 (Approximate), Expires: 01/12/2025 [facility] Work Phone: Comment on above: Expected: 01/13/2024 (Approximate), Expi res: 01/12/2025 Start: 01-13-2024 End: 01-12-2026 NM Heart Perfusion W stress and W radionuclide IV Nuclear Stress Test Cardiac Nuclear Medicine Routine PVC (premature ventricular contraction) 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 Ventricular arrhythmia Abnormal electrocardiogram (ECG) (EKG) Expected: 01/13/2024 (Approximate), Expires: 01/12/2026 [facility] Work Phone: Comment on above: Expected: 01/13/2024 (Approximate), Expi res: 01/12/2026 Start: 01-13-2024 End: 01-12-2026 [facility] Transthoracic Transthoracic Echo Complete Echocardiography Routine PVC (premature ventricular contraction) Paroxysmal atrial fibrillation (Multi) Expected: 01/13/2024 (Approximate), Expires: 01/12/2026 [facility] Work Phone: Comment on above: Expected: 01/13/2024 (Approximate), Expi res: 01/12/2026 Start: 12-12-2023 Glaucoma screening Diabetes: Retinopathy Screening [facility] Start: 08-28-2023 COVID-19 Vaccine ( season) COVID-19 Vaccine () [facility] Start: 07-13-2023 FUV, Provider: Epifanio Davis, Status: Pen, Time: 8:50 AM FUV, Provider: Epifanio Davis, Status: Pen, Time: 8:50 AM [facility] 250 DO Work Phone: Start: 02-05-2023 Hemoglobin A1c measurement Diabetes: Hemoglobin A1C [facility] Start: 07-14-2022 FUV, Provider: Epifanio Davis, Status: Pen, Time: 9:10 AM FUV, Provider: Epifanio Davis, Status: Pen, Time: 9:10 AM [facility] 250 DO Work Phone: Start: 06-24-2021 FUV, Provider: Epifanio Davis, Status: Pen, Time: 10:15 AM FUV, Provider: Epifanio Davis, Status: Pen, Time: 10:15 AM [facility] 250 DO Work Phone: Start: 2013 RSV High Risk: (Elderly (60+) or Population) (1 - 1-dose 75+ series) RSV High Risk: (Elderly (60+) or Population) (1 - 1-dose 75+ series) [facility] Start: 1998 RSV patients and/or patients aged 60+ years (1 - 1-dose 60+ series) RSV patients and/or patients aged 60+ years (1 - 1-dose 60+ series) [facility] Start: 1960 DTaP/Tdap/Td Vaccines (1 - Tdap) DTaP/Tdap/Td Vaccines (1 - Tdap) [facility] Start: 1957 Urine screening for protein Diabetes: Urine Protein Screening [facility] Start: 1948 Diabetic foot examination Diabetes: Foot Exam [facility] Start: 1948 Glaucoma screening Diabetes: Retinopathy Screening [facility] Start: 1938 Annual wellness visit Welcome to Medicare Visit [facility] Start: 1938 Hemoglobin A1c measurement Diabetes: Hemoglobin A1C [facility] Start: 1938 Lipid panel Lipid Panel [facility] Start: 1938 Medicare Annual Wellness (AWV) Medicare Annual Wellness (AWV) [facility] Start: 1938 Medicare Annual Wellness Visit Medicare Annual Wellness Visit (AWV) [facility] Start: 1938 Screening for malignant neoplasm of colon [facility] Start: 1938 Urine screening for protein Diabetes: Urine Protein Screening [facility] Dermatopathology exam Dermatopat hology exam Pathology and Cytology Timed Basal cell carcinoma (BCC) of skin of left upper extremity including shoulder Release Upon Ordering for 1 Occurrences starting 06/30/2024 [facility] Work Phone: Comment on above: Release Upon Ordering for 1 Occurrences starting 06/30/2024 Dermatopathology exam Dermatopat hology exam Pathology and Cytology Timed Neoplasm of unspecified behavior of bone, soft tissue, and skin Release Upon Ordering for 1 Occurrences starting 07/14/2024 [facility] Work Phone: Comment on above: Release Upon Ordering for 1 Occurrences starting 07/14/2024 Dermatopathology exam Dermatopat hology exam Pathology and Cytology Timed 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, including hip Release Upon Ordering for 1 Occurrences starting 07/26/2024 [facility]: Comment on above: Release Upon Ordering for 1 Occurrences starting 07/26/2024 Dermatopathology exam Dermatopat hology exam Pathology and Cytology Timed Squamous cell carcinoma of skin of left upper limb, including shoulder Release Upon Ordering for 1 Occurrences starting 08/30/2024 [employer] Work Phone: Comment on above: Release Upon Ordering for 1 Occurrences starting 08/30/2024 Dermatopathology exam Dermatopat hology exam Pathology and Cytology Timed Neoplasm of unspecified behavior of bone, soft tissue, and skin Release Upon Ordering for 1 Occurrences starting 10/26/2024 [facility]: Comment on above: Release Upon Ordering for 1 Occurrences starting 10/26/2024 HIV 1+2 Ab+HIV1 p24 Ag [Presence] in Serum or Plasma by Immunoassay [facility] Patient Education Know your Meds [facility] Work Phone: Patient referral [facility] Work Phone: Immunizations Immunization Date Immunization Notes Care Provider Estefanía eckert 03-25-2024 Seasonal trivalent influenza vaccine, adjuvanted, preservative free Missy Khoury MD Work Phone: [facility] Work Phone: 03-25-2024 influenza virus vacc ine, unspecified formulation Laura Barrow MD Work Phone: [facility] 03-20-2023 Influenza, Seasonal, Quadrivalent, Adjuvanted Nirav Bello DO Work Phone: [facility] 03-20-2023 influenza virus vacc ine, unspecified formulation Nirav Bello DO Work Phone: [facility] 04-03-2022 Moderna COVID-19 Biv al Booster 50 MCG/0.5ML Intramuscular Suspension Nirav Bello Work Phone: [place] [address] DO Work Phone: 03-10-2022 Fluad Quadrivalent 0 .5 ML Intramuscular Prefilled Syringe Nirav Bello Work Phone: [facility] 250 DO Work Phone: 12-19-2021 Moderna COVID-19 Vac cine 100 MCG/0.5ML Intramuscular Suspension Nirav Bello Work Phone: [facility] 250 DO Work Phone: 03-20-2021 Moderna COVID-19 Vac cine 100 MCG/0.5ML Intramuscular Suspension Nirav Vargas Ace Work Phone: [facility] 03-19-2021 Moderna SARS-CoV-2 Booster Vaccination Nirav Bello DO Work Phone: [facility] 03-12-2021 influenza, high dose seasonal, preservative-free Nirav Downingman Work Phone: [facility] 02-26-2021 Fluzone High-Dose Quadrivalent 0.7 ML Intramuscular Suspension Prefilled Syringe Nirav Vargas Ace Work Phone: [facility] 250 DO Work Phone: 07-12-2020 COVID-19 mRNA-1273 (Moderna) [facility] 06-15-2020 COVID-19 mRNA-1273 (Moderna) [facility] 03-15-2020 Fluad Quadrivalent 0 .5 ML Intramuscular Prefilled Syringe Nirav Alicia DowningAce Work Phone: [facility] 02-24-2020 influenza, high dose seasonal, preservative-free Nirav Downingman Work Phone: [facility] 250 DO Work Phone: 03-11-2019 zoster vaccine recombinant Nirav Bello Work Phone: [facility] 250 DO Work Phone: 03-01-2019 influenza, high dose seasonal, preservative-free Nirav Bello Work Phone: [facility] 250 DO Work Phone: 02-21-2019 influenza, high dose seasonal, preservative-free Nirav Bello Work Phone: [place] [address] DO Work Phone: 12-22-2018 zoster vaccine recombinant Nirav Bello Work Phone: [place] [address] DO Work Phone: 02-25-2018 influenza, high dose seasonal, preservative-free Nirav Bello Work Phone: [place] [address] DO Work Phone: 03-16-2017 influenza, high dose seasonal, preservative-free Nirav Bello Work Phone: [place] [address] DO Work Phone: 05-24-2016 pneumococcal conjuga te vaccine, 13 valent Nirav Bello Work Phone: [facility] 03-30-2016 influenza, high dose seasonal, preservative-free Nirav Bello DO Work Phone: [facility] 05-02-2015 seasonal influenza, intradermal, preservative free Nirav Bello DO Work Phone: [facility] 03-22-2015 influenza, high dose seasonal, preservative-free Nirav Bello Work Phone: [place] [address] DO Work Phone: 12-14-2013 pneumococcal conjuga te vaccine, 13 valent Nirav Bello DO Work Phone: [facility] 10-10-2012 zoster vaccine, live Nirav Bello DO Work Phone: [facility] 05-24-2012 pneumococcal polysaccharide vaccine, 23 valent Nirav Vargas Ace Work Phone: [facility] 05-31-2009 novel influenza-H1N1 -09, preservative-free, injectable Nirav Bello Work Phone: -[facility] 250 DO Work Phone: 07-23-2003 pneumococcal polysaccharide vaccine, 23 valent Nirav Ace DO Work Phone: [facility] Healthcare Payers Date Payer Category Payer Self-pay [id number] 2023 Medicare (Managed Care) [employer]ETNA [facility] MEDICARE [id number] 2022 Medicaid [employer]ETNA MEDICARE A DVANTAGE [id number] 2022 Medicare [id number] 1959 Private Health Insurance [facility] [id number] 1938 Unknown [id number] 2.16.840.1.296618.3.579.2. 356 1938 Unknown [id number] 2.16.840.1.911536.3.579.2. 593 1938 Unknown [id number] 2.16.840.1.291680.3.579.2. 593 1938 Unknown [id number] 2.16.840.1.079631.3.579.2. 593 1938 Unknown [id number] 2.16.840.1.015409.3.579.2. 593 1938 Unknown [id number] 2.16.840.1.589407.3.579.2. 593 1938 Unknown [id number] 2.16.840.1.342276.3.579.2. 1246 1938 Unknown [id number] 2.16.840.1.616082.3.579.2. 1246 1938 Unknown [id number] 2.16.840.1.444589.3.579.2. 1246 1938 Unknown [id number] 2.16.840.1.887154.3.579.2. 1246 1938 Unknown [id number] 2.16.840.1.623703.3.579.2. 1246 1938 Unknown [id number] 2.16.840.1.643519.3.579.2. 1246 1938 Unknown [id number] 2.16.840.1.151182.3.579.2. 1244 1938 Unknown [id number] 2.16.840.1.622765.3.579.2. 1244 1938 Unknown [id number] 2.16.840.1.223364.3.579.2. 1244 1938 Unknown [id number] 2.16.840.1.466794.3.579.2. 1244 1938 Unknown [id number] 2.16.840.1.397741.3.579.2. 1259 1938 Unknown [id number] 2.16.840.1.978724.3.579.2. 1259 1938 Unknown [id number] 2.16.840.1.462601.3.579.2. 1259 1938 Unknown [id number] 2.16.840.1.035989.3.579.2. 125 1938 Unknown [id number] 2.16.840.1.940415.3.579.2. 125 1938 Unknown [id number] 2.16.840.1.239865.3.579.2. 1258 1938 Unknown [id number] 2.16.840.1.825367.3.579.2. 125 1938 Unknown [id number] 2.16.840.1.750929.3.579.2. 1258 1938 Unknown [id number] 2.16.840.1.122038.3.579.2. 1259 1938 Unknown [id number] 2.16.840.1.589188.3.579.2. 125 1938 Unknown [id number] 2.16.840.1.143068.3.579.2. 125 1938 Unknown [id number] 2.16.840.1.204467.3.579.2. 1259 Medicare Medicare [id number] Private Health Insurance Self Pay [facility] [id number] Unknown [employer] Unknown [id number] 2.16.840.1.749699.3.579.2. 531 Unknown [id number] 2.16.840.1.059496.3.579.2. 531 Social History Date Type Detail Facility Tobacco smoking stat us NEIS Unknown if ever smoked [facility] Start: 1940 Sex Assigned At Male [facility] Start: 11-10-2022 End: 07-13-2023 Never a smoker Never a smoker -[facility] 250 DO Work Phone: Comment on above: 2-3 drinks a month; Start: 12-05-2021 End: 11-15-2023 Tobacco smoking status NHIS Ex-smoker (finding) [facility] Start: 11-10-2022 End: 07-13-2023 Sex Assigned At [facility] [employer] Other Start: 06-12-1956 End: 05-24-1989 History of tobacco use Current smoker [facility] Work Phone: Start: 06-12-1956 End: 05-24-1989 History of tobacco use Cigarette Smoker [facility] Work Phone: Start: 07-13-2023 End: 11-15-2023 Tobacco use and exposure Smokeless tobacco non-user [facility] Work Phone: Start: 07-13-2023 End: 10-02-2024 Alcohol intake Lifetime non-drinker (finding) [facility] Work Phone: Start: 1940 Sex Assigned At Not on file [facility] Work Phone: Start: 07-03-2023 End: 10-02-2024 Exposure to SARS-CoV-2 (event) Not sure [facility] History of tobacco use Pipe Smoker [...] He [facility] Start: 08-09-2024 Sex Male (finding) [facility] Goals Date Patient Goal Desired Activity [...] limited to risks of scarring, darker or anesthesiologist assistant certified pigmentary changes, recurrence, incomplete removal and infection. [...] month skin check documented in this encounter [facility] 10-02-2024 History of Present illness Narrative Images [...] Mixed hyperlipidemia 7. Paroxysmal atrial fibrillation 8. Pes-jiftddg-rnemuswzq diabetes 9. [id number] score of 4. 10. Long-term anticoagulation with rivaroxaban 11. EKG June 2023-[place] formed PVCs in a pattern of ventricular [...] B-12) 1,000 mcg tablet 1 tablet, Daily vohpjy-oepuwoqx-pxtsjyj (Creon) 24,000-76,000 -120,000 unit capsule 1 capsule, [...] accurate and complete. documented in this encounter [facility] Work Phone: 10-02-2024 Instructions April Love [...] visit. BMI normal documented in this encounter [facility] Work Phone: 09-13-2024 History of Present [...] skin check scheduled documented in this encounter [facility] 09-04-2024 Evaluation note Diagnosis PAF (paroxysmal atrial fibrillation) (CMS/HCC)- Primary Atrial fibrillation Stage 3a chronic kidney disease (HCC) ([facility]/HCC) Type 2 diabetes mellitus with other specified complication, without long-term current use of insulin Mixed hyperlipidemia (CMS/HCC) Mixed hyperlipidemia Exocrine pancreatic insufficiency (CMS/HCC) Other specified disease of pancreas Primary hypertension ([facility]/HCC) Unspecified essential hypertension documented [id number] History of Present illness Narrative* Laura Barrow [...] left upper limb, including shoulder Left Shoulder [place] macule at biopsy site Skin excision Lesion [...] 1.2 x 1.1 cm Previous accession number: [id number] Follow up: 14 days for s/r documented in this encounterF[id number] History of Present illness Narrative* Laura Barrow [...] SCC Check Margins: yes Previous accession number: [id number] Shave excision completed today, see procedure note. Return to clinic prior to next scheduled visit for any signs or symptoms of recurrence, reviewed the signs and symptoms. Patient will be notified of results. Next Visit: as scheduled documented in this encounterF[facility]on [id number] History of Present illness Narrative* Laura Barrow [...] Visit: pending biopsy results documented in this encounterFulton [facility]- [id number] History of Present illness Narrative* Laura Barrow [...] upper extremity including shoulder Left Upper Arm [place] macule at biopsy site. Skin excision Lesion [...] BCC Check Margins: Yes Previous accession number: [id number] 2. Skin neoplasm (2) Left shoulder Erythematous, crusted papule. Right lower leg Erythematous, crusted papule. Biopsies deferred until suture removal due to insurance restrictions. Follow up: 14 days for s/r documented in this [facility]12-18-2024 History of Present illness Narrative* Nirav Bello, DO - 05/10/2024 9:30 AM EST Images from the original note were not included. Epifanio Walsh is a 83 y.o. male presents with chief complaint of Hospital Follow-up (Pt presents hospital follow up at [facility] on 05/03 for hypertension. Pt states [...] 10/01/2017 CATARACT EXTRACTION Right 10/28/2017 per in [place], [place]. COLONOSCOPY 2010 COLONOSCOPY 11/28/[address] 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 documented in this encounterFulton [facility]- [id number] History of Present illness Narrative* Missy Khoury [...] Mixed hyperlipidemia 7. Paroxysmal atrial fibrillation 8. Cmq-pjuhbbm-zyjlggrvh diabetes 9. MAM8PK1-UKNe score of 4. 10. Long-term anticoagulation with rivaroxaban 11. 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 [facility] current use of 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 11. Former [...] exam, discussion and plan. [facility] Work Phone: 1(607) 582-127012-09-2024 Instructions* Patient Instructions* Britney Salgado LPN - [...] time of your visit. [facility] Work Phone: 1(391) 265-505608-22-2024 History of Present illness Narrative* Missy Khoury [...] Mixed hyperlipidemia 7. Paroxysmal atrial fibrillation 8. Ugf-pbygjaq-xtxtrtpit diabetes 9. HQM4IX0-LPYn score of 4. 10. Long-term anticoagulation with rivaroxaban 11. EKG June 2023-[place] formed PVCs in a pattern of ventricular [...] 1,000 mcg tablet 1 tablet, oral, Daily ifijsu-fnibepxq-cjfthoe (Creon) 24,000-76,000 -120,000 unit capsule 1 capsule, [...] Date Noted PVC (premature ventricular contraction) 01/13/2024 [facility] current use of 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 01/13/2024 High [...] contraction) Transthoracic Echo Complete Holter Or Event Health Insurance Agent Nuclear Stress Test CANCELED: Nuclear Stress Test 3. Paroxysmal atrial fibrillation (Multi) Follow Up In Cardiology magnesium oxide (Mag-Ox) 400 mg (241.3 mg magnesium) tablet Transthoracic Echo Complete metoprolol succinate XL (Toprol-XL) 50 mg 24 hr tablet Holter Or Event Health Insurance Agent CANCELED: Nuclear Stress Test 4. 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 High [...] exam, discussion and plan. [facility] Work Phone: 1(590) 175-371308-22-2024 Instructions* Patient Instructions* Fay Edge CMA - [...] time of your visit. [facility] Work Phone: 1(257) 395-276302-20-2024 History of Present illness Narrative* Epifanio Davis [...] by mouth once daily., Disp: , Rfl: iurdtm-ynvrjumw-bylawjy (Creon) 24,000-76,000 -120,000 unit capsule, Take 1 [...] exam, discussion and plan. [facility] Work Phone: 1(632) 593-890902-20-2024 Instructions* Patient Instructions* Dominick Suazo MA - [...] time of your visit. [facility] Work Phone: 1(156) 596-234906-27-2023 Evaluation note* Encounter Date Diagnosis Assessment Notes Treatment Notes Treatment Clinical Notes Oct, Change in bowel habits (ICD-10 - R19.4) Oct, Diverticulosis (ICD-10 - K57.90) Oct, IBS (irritable bowel syndrome) (ICD-10 - K58.9) Oct, Pancreatic insufficiency (ICD-10 - K86.89) [employer] Other 02-21-2023 History of Present illness Narrative* [...] necessary and we suggest follow-up next year [facility] 250 DO Work Phone: Evaluation noteNo assessment information available [facility] Work Phone: Evaluation noteNo InformationNortDepartment of [facility] [employer] Other Evaluation note* Diagnosis Benign essential hypertension- Primary Essential hypertension, benign Mixed hyperlipidemia Paroxysmal atrial fibrillation (CMS/HCC) Atrial fibrillation Former smoker Personal history of tobacco use, presenting hazards to health documented in this encounter [facility] Work Phone: Evaluation note* Diagnosis Encounter [...] without long-term current use of insulin (Multi) 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 Former smoker Personal history of tobacco use, presenting hazards to health Body mass index (BMI) of 23.0 to 23.9 in adult documented in this encounter [facility] Work Phone: Evaluation note* Diagnosis Ventricular arrhythmia- Primary Unspecified cardiac dysrhythmia PVC (premature ventricular contraction) Other premature beats Paroxysmal atrial fibrillation (Multi) Atrial fibrillation 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 [facility] current use of 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 High risk medication use Mixed hyperlipidemia Uncontrolled hypertension Former smoker Personal history of tobacco use, presenting hazards to health Type 2 diabetes mellitus without complication, without long-term current use of insulin (Multi) Stage 3a chronic kidney disease (Multi) Prostate cancer (Multi) Malignant neoplasm of prostate Abnormal electrocardiogram (ECG) (EKG) documented in this encounter [facility] Work Phone: Evaluation note* Diagnosis PVC (premature ventricular contraction) Other premature beats 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 Ventricular arrhythmia Unspecified cardiac dysrhythmia Abnormal electrocardiogram (ECG) (EKG) documented in this encounter [facility] Work Phone: Evaluation note* Diagnosis PVC (premature ventricular contraction) Other premature beats Paroxysmal atrial fibrillation (Multi) Atrial fibrillation documented in this encounter [facility] Work Phone: Evaluation note* Diagnosis Primary hypertension (CMS/HCC)- Primary Unspecified essential hypertension PAF (paroxysmal atrial fibrillation) (CMS/HCC) Atrial fibrillation Stage 3a chronic kidney disease (HCC) (CMS/HCC) Type 2 diabetes mellitus with other specified complication, without long-term current use of insulin (CMS/HCC) documented in this encounter [facility] HealthcareEvaluation note* Diagnosis Allergic sinusitis- Primary Type 2 diabetes mellitus with other specified complication, without long-term current use of insulin (CMS/HCC) Primary hypertension (CMS/HCC) Unspecified essential hypertension PAF (paroxysmal atrial fibrillation) (CMS/HCC) Atrial fibrillation Exocrine pancreatic insufficiency (CMS/HCC) Other specified disease of pancreas Stage 3a chronic kidney disease (HCC) (CMS/HCC) Mixed hyperlipidemia (CMS/HCC) Mixed hyperlipidemia Chest pain, unspecified type documented in this encounter [facility] HealthcareEvaluation note* Diagnosis Basal cell carcinoma (BCC) of skin of left upper extremity including shoulder- Primary Skin neoplasm Neoplasm of unspecified nature of bone, soft tissue, and skin documented in this encounter [facility] HealthcareEvaluation note* Diagnosis Neoplasm of unspecified behavior of bone, soft tissue, and skin- Primary Encounter for removal of sutures documented in this encounter [facility] HealthcareEvaluation note* Diagnosis 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, including hip- Primary documented in this encounter [facility] HealthcareEvaluation note* Diagnosis Squamous cell carcinoma of skin of left upper limb, including shoulder- Primary documented in this encounter [facility] HealthcareEvaluation note* Diagnosis Encounter for removal of sutures documented in this encounter [facility] HealthcareEvaluation note* Diagnosis Paroxysmal atrial fibrillation (Multi) [...] health documented in this encounter [facility] Work Phone: Evaluation note* Diagnosis Seborrheic keratosis- Primary Lentigines Actinic keratosis Neoplasm of unspecified behavior of bone, soft tissue, and skin History of malignant neoplasm of skin Personal history of other malignant neoplasm of skin documented in this encounter [facility] HealthcareHistory general Narrative - Reported* Type Description [...] Right cataract surgery per Dr.Z santamaria in [place], [place]. 10-28-17 Surgical History Mohs repair / left upper lip Hospitalization History see above [employer] Other History of Present illness NarrativeReturns in [...] we suggest continued therapy as before without change.-[facility] 250 DO Work Phone: Hospital Discharge instructions [...] the incision. PLEASE NOTIFY OUR OFFICE at [phone] if you: -Develop a fever of 101 [...] rate. FOLLOW UP -Call the office at [phone] for a follow up appointment 1 week. * AFTER HOURS PHONE NUMBER [phone] *[facility] Work Phone: Advance Directives Advance Directive Response [...] SPECT MULTIPLE STUDIES Missy Khoury MD [address] [address] Referral ID Status Reason Start Date Expiration Date Visits Requested Visits Authorized [id number] Authorized Perform Procedure 01/13/2024 01/12/2025 5 5 Specialty Diagnoses / Procedures Referred By Contac t Referred To Contact Cardiology Diagnoses PVC (premature ventricular contraction) Paroxysmal atrial fibrillation (Multi) Procedures Holter Or Event Health Insurance Agent Missy Khoury MD [address] [address] Referral ID Status Reason Start Date Expiration Date V isits Requested Visits Authorized [id number] Pending Review 01/13/2024 01/12/2025 1 1 Specialty Diagnoses / Procedures Referred By Contac t Referred To Contact Cardiology Diagnoses PVC (premature ventricular contraction) Paroxysmal atrial fibrillation (Multi) Procedures Transthoracic Echo Complete NV ECHO TTHRC R-T 2D W/WOM-MODE COMPL SPEC&COLR D Missy Khoury MD [address] [place] [id number] Referral ID Status Reason Start Date Expiration Date Visits Requested Visits Authorized [id number] Authorized Perform Procedure 01/13/2024 01/12/2025 1 1 Specialty Diagnoses / Procedures Referred By Contac t Referred To Contact Cardiology Diagnoses Paroxysmal atrial fibrillation (Multi) Procedures Follow Up In Cardiology Missy Khoury MD [address] [address] Missy Khoury MD [address] [place] [id number] Referral ID Status Reason Start Date Expiration Date V isits Requested Visits Authorized [id number] Authorized 01/13/2024 01/12/2025 1 1 Specialty Diagnoses / Procedures Referred By Contac t Referred To Contact Diagnoses Paroxysmal atrial fibrillation (CMS/HCC) Procedures ECG 12 Lead Epifanio Davis MD [address] [facility] [place] [address] [place] [address] Referral ID Status Reason Start Date Expiration Date V isits Requested Visits Authorized [id number] Authorized 07/13/2023 07/12/2024 1 1 Specialty Diagnoses / Procedures Referred By Contac t Referred To Contact Cardiology Diagnoses Paroxysmal atrial fibrillation (CMS/HCC) Procedures Follow Up In Cardiology Epifanio Davis MD [address] [place] [address] Epifanio Davis MD 703 [facility] 2, [address] [address] Referral ID Status Reason Start Date Expiration Date V isits Requested Visits Authorized [id number] Authorized 07/13/2023 07/12/2024 1 1 Additional Source [...] Active Jj Garcia MD Attending Provider Active Project Management Professor Relationship Specialty Start Date End Date Nirav Bello DO [address] [facility] [address] [place] [address] PCP - General 05/24/99 Team Status: Inactive Member Role Status Dates Nirav Bello DO Primary Care Provider Active Start: September 13, 2023 End: September 13, 2023 NON STAFF Attending Provider Active Start: 2023 End: September 13, 2023 Project Management Professor Relationship Specialty Start Date End Date Nirav Bello DO [address] [facility] [address] [place] [address] PCP - [employer] 05/24/20 Nirav Bello DO [address] [facility] [address] [place] [address] PCP - General Internal Medicine 11/10/22 Marianne Davis MD [address] [address] Referring Physician Cardiology 05/12/23 Project Management Professor Relationship Specialty Start Date End Date Nirav Bello DO [address] [place] [address] PCP - [employer] 05/24/20 Nirav Bello DO [address] [place] [address] PCP - General Internal Medicine 11/10/22 Marianne Davis MD [address] [address] Referring Physician Cardiology 05/12/23 Project Management Professor Relationship Specialty Start Date End Date Nirav Bello DO [address] [place] [address] PCP - General 05/24/99 Project Management Professor Relationship Specialty Start Date End Date Nirav Bello DO [address] [place] [address] PCP - General 05/24/99 Project Management Professor Relationship Specialty Start Date End Date Nirav Bello DO [address] [place] [address] PCP - General 05/24/99 Project Management Professor Relationship Specialty Start Date End Date Nirav Bello DO [address] [place] [address] PCP - General 05/24/99 Project Management Professor Relationship Specialty Start Date End Date Nirav Bello DO [address] [place] [address] PCP - General 05/24/99 Project Management Professor Relationship Specialty Start Date End Date Nirav Bello DO [address] [place] [address] PCP - General 05/24/99 Project Management Professor Relationship Specialty Start Date End Date Nirav Bello DO [address] [place] [address] PCP - General 05/24/99 Project Management Professor Relationship Specialty Start Date End Date Nirav Bello DO [address] [place] [address] PCP - [employer] 05/24/20 Nirav Bello DO [address] [place] [address] PCP - General Internal Medicine 11/10/22 Marianne Davis MD [address] [place] [address], [place] [address] Referring Physician Cardiology 05/12/23 Project Management Professor Relationship Specialty Start Date End Date Nirav Bello DO [address] [place] [address] PCP - [employer] 05/24/20 Nirav Bello DO [address] [place] [address] PCP - General Internal Medicine 11/10/22 Marianne Davis MD [address] [facility] [address] [place] [address] Referring Physician Cardiology 05/12/23 Project Management Professor Relationship Specialty Start Date End Date Nirav Bello DO [address] [place] [address] PCP - [employer] 05/24/20 Nirav Bello DO [address] [place] [address] PCP - General Internal Medicine 11/10/22 Marianne Davis MD [address] [address] Referring Physician Cardiology 05/12/23 Project Management Professor Relationship Specialty Start Date End Date Nirav Bello DO [address] [place] [address] PCP - [employer] 05/24/20 Nirav Bello DO [address] [place] [address] PCP - General Internal Medicine 11/10/22 Marianne Davis MD [address] [facility] [address] [place] [address] Referring Physician Cardiology 05/12/23 Project Management Professor Relationship Specialty Start Date End Date Nirav Bello DO [address] [place] [address] PCP - [employer] 05/24/20 Nirav Bello DO [address] [place] [address] PCP - General Internal Medicine 11/10/22 Marianne Davis MD [address] [address] Referring Physician Cardiology 05/12/23 Project Management Professor Relationship Specialty Start Date End Date Nirav Bello DO [address] [place] [address] PCP - Aetna 05/24/20 Nirav Bello DO [address] [place] [address] PCP - General Internal Medicine 11/10/22 Marianne Davis MD [address] [address] Referring Physician Cardiology 05/12/23 Team Status: Inactive Member Role Status Dates Nirav Bello DO Primary Care Provider Active Start: August 09, 2024 End: August 09, 2024 Colin Thompson MD Attending Provider Active Start: August 09, 2024 End: August 09, 2024 Project Management Professor Relationship Specialty Start Date End Date Nirav Bello DO [address] [place] [address] PCP - Aetna 05/24/20 Nirav Bello DO [address] [place] [address] PCP - General Internal Medicine 11/10/22 Marianne Davis MD [address] [address] Referring Physician Cardiology 05/12/23 Project Management Professor Relationship Specialty Start Date End Date Nirav Bello DO [address] [place] [address] PCP - Aetna 05/24/20 Nirav Bello DO [address] [place] [address] PCP - General Internal Medicine 11/10/22 Marianne Davis MD [address] [address] Referring Physician Cardiology 05/12/23 Project Management Professor Relationship Specialty Start Date End Date Nirav Bello DO [address] [place] [address] PCP - Aetna 05/24/20 Nirav Bello DO [address] [place] [address] PCP - General Internal Medicine 11/10/22 Marianne Davis MD [address] [address] Referring Physician Cardiology 05/12/23 Project Management Professor Relationship Specialty Start Date End Date Nirav Bello DO [address] [place] [address] PCP - General 05/24/99 Project Management Professor Relationship Specialty Start Date End Date Nirav Bello DO [address] [place] [address] PCP - Aetna 05/24/20 Nirav Bello DO [address] [place] [address] PCP - General Internal Medicine 11/10/22 Marianne Davis MD 703 [facility] [address] [place] [address] Referring Physician Cardiology 05/12/23 Project Management Professor Relationship Specialty Start Date End Date Nirav Bello DO [address] [place] [address] PCP - Aetna 05/24/20 Nirav Bello DO [address] [place] [address] PCP - General Internal Medicine 11/10/22 Marianne Davis MD [address] [address] Referring Physician Cardiology 05/12/23 Goals (unrecognized section [...] CREATED AUTHOR 07/15/2022 [facility] DATE CREATED AUTHOR AUTHOR'S ORGANIZ ATION 07/15/2022 [employer] DATE CREATED AUTHOR AUTHOR'S ORGANIZ ATION 09/10/2022 [facility] DATE CREATED AUTHOR AUTHOR'S ORGANIZ ATION 02/25/2024 [facility] DATE CREATED AUTHOR AUTHOR'S ORGANIZ ATION 08/21/2024 [facility] DATE CREATED AUTHOR AUTHOR'S ORGANIZ ATION 10/03/2024 [facility] DATE CREATED AUTHOR AUTHOR'S ORGANIZ ATION 10/27/2024 [facility] dical Specialists EPIC REASON FOR VISIT (unrecogniz ed section and content) Reason Comments Follow-up 5 month Follow up fo r Hypertension Specialty Diagnoses / Procedures Referred By Contac t Referred To Contact Cardiology Diagnoses Paroxysmal atrial fibrillation (Multi) Procedures Follow Up In Cardiology Missy Khoury MD [address] [address] Phone: tel: fax: Missy Khoury MD [address] [address] Phone: tel: fax: Referral ID Status Reason Start Date Expiration Date V isits Requested Visits Authorized [id number] Authorized 05/01/2024 05/01/2025 1 1 Reason Comments Annual Exam Specialty Diagnoses / Procedures Referred By Contac t Referred To Contact Diagnoses Paroxysmal atrial fibrillation (CMS/HCC) Procedures ECG 12 Lead Epifanio Davis MD 703 [facility] 2, [facility] [address] [place] [address] Referral ID Status Reason Start Date Expiration Date V isits Requested Visits Authorized [id number] Authorized 07/13/2023 07/12/2024 1 1 Reason Comments Follow-up Follow up after test ing Referral ID Status Reason Start Date Expiration Date V isits Requested Visits Authorized [id number] Authorized 01/13/2024 01/12/2025 1 1 Reason Comments Follow-up Add on Specialty Diagnoses / Procedures Referred By Contac t Referred To Contact Radiology Diagnoses PVC (premature ventricular contraction) 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 Ventricular arrhythmia Abnormal electrocardiogram (ECG) (EKG) Procedures Nuclear Stress Test Nuclear Stress Test CHG MYOCARDIAL SPECT MULTIPLE STUDIES Missy Khoury MD [address] [address] Referral ID Status Reason Start Date Expiration Date Visits Requested Visits Authorized [id number] Authorized Perform Procedure 01/13/2024 01/12/2025 5 5 Specialty Diagnoses / Procedures Referred By Contac t Referred To Contact Cardiology Diagnoses PVC (premature ventricular contraction) Paroxysmal atrial fibrillation (Multi) Procedures Transthoracic Echo Complete NV ECHO TTHRC R-T 2D W/WOM-MODE COMPL SPEC&COLR D Missy Khoury MD 9[address] [facility] [address] [place] [address] Referral ID Status Reason Start Date Expiration Date Visits Requested Visits Authorized [id number] Authorized Perform Procedure 01/13/2024 01/12/2025 1 1 Reason Comments Hospital Follow-up Patient presents to[facility] a [place] [facility] follow up 01/10/24 for hypertension. He was in the ER the previous week for a-fib. He was started on Abiraterone recently and his BP went up consistently in the 160s. He sees cardiology Thurs for the a-fib. Reason Comments Hospital Follow-up Pt presents hospital follow up at [facility] on 05/03 for hypertension. Pt states he BP still feels elevated, although he hasn't been checking he BP at home. Pt denies chest pain, SOB or blurry vision Reason Comments Excision Reason Comments Follow-up Reason Comments Hypertension Patient's BP reading s 190/90 in the evenings. Patient was seen at [place] ER 08/01/24 for hypertension and Norvasc 5mg [...] BE BASED ON THE PRIMARY CLINICAL RECORDS. PPI. provides no warranty or guarantee of the accuracy or completeness of information in this document.
--- OUTSIDE RECORDS SUMMARY | 2024-10-30 07:20 | XMS_ITS | Clinical Summary ---
Author Organization [facility] Address [address] [place] [address] Phone Care Team Providers Care Shelver Name Role Phone Nirav Duenas DO Primary Care Provider [phone] Allergies Active Allergy Reactions Criticality Noted Date [...] (500 mg) by mouth once daily. 07/05/19 21 Active mirtazapine (Remeron) 15 mg tablet Take 1 tablet (15 mg) by mouth once daily at bedtime. 05/14/20 21 Active qafrzq-dqskoauv-m mylase (Creon) 24,000-76,000 -120,000 unit capsule Take [...] 05/01/2024 PVC (premature ventricular contraction) 01/13/20 24 skilled nursing current use of 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 0 01/13/2024 High risk medication use 01/13/2024 Stage 3a chronic kidney disease (Multi) 01/13/20 24 Prostate cancer (Multi) 01/13/2024 Nonrheumatic mitral valve regurgitation 01/13/20 24 Former smoker 07/13/2023 Primary hypertension 05/28/2023 Diabetes mellitus (Multi) 05/28/2023 Hyperlipidemia 05/28/2023 Paroxysmal atrial fibrillation (Multi) 4 Encounters Date Type Department Care Team Description 10/02/2024 11:45 AM EDT Office Visit [address] [address] Missy Khoury MD Paroxysmal atrial [...] adult; Former smoker 10/02/2024 Travel 08/07/[address] [address] Britney Salgado LPN medication hold [...] Description 12/14/2024 10:30 AM EDT Office Visit [address] [address] Missy Khoury MD 917 [address] [facility] 130 [place] [address] Health Maintenance Due Date Last Done Comments [...] this topic Insurance AETNA [place] MEDICARE AETNA [place] MEDICARE Care Teams Shelver Relationship Specialty Start Date End Date Nirav Duenas DO [address] [place] [address] PCP - General 05/24/99
--- OUTSIDE RECORDS SUMMARY | 2024-10-30 07:20 | XMS_ITS | Encounter Summary ---
Author Organization [facility] Address [address] [place] [address] Care Team Providers Care Airframe Technician Name Role Phone Nirav Duenas DO Unavailable [phone] Nirav Duenas DO Primary Care Provider [phone] Marianne Davis MD Unavailable [phone] Encounter Details Date Type Department Care Team [...] 11/14/2024 9:30 AM EDT Office Visit [facility] [address] [place] [address] Nirav Duenas DO [address] [place] [address] 04/26/2025 8:35 AM EST Office Visit [facility] [address] [place] [address] Charleen Hensley MD [address] [place] [address] documented as of this encounter Procedures Procedure [...] PERFUSION STRESS TEST WITH EXERCISE Performing facility: [facility], [address] [place] [address], [address], [place] [id number] [facility] Provider: Missy Carvalho MD, FACC PCP: Dr. Trang Duenas Supervising provider: Marina Goldsmith MD INDICATION: Abnormal EKG; PVC Murmur HISTORY: Gender: M; Age: 83 y/o ; Height: HT 180.3 cm cm; Weight: WT 77.111 kg kg. Abnormal EKG; High Cholesterol; Diabetes; HTN; Arrhythmias; A-fib Quit smoking 34 years ago. COMPARISON: Previous nuclear testing completed [id number] at [facility]. ACCESSION NUMBER(S): [id number] ORDERING CLINICIAN: MISSY CARVALHO TECHNIQUE: ONE DAY protocol. Stress injection: [...] Clarissa Sanchez 02/07/2024 4:47 PM Dictation workstation: [id number] Procedure Note Radiology, Radiologist, - 02/07/2024 Start with exercise, may switch to alfonso Interpreted By: Clarissa Sanchez and Giannuzzi Michael STUDY: MYOCARDIAL PERFUSION STRESS TEST WITH EXERCISE Performing facility: [facility], [address] [place] [address], [address], [place] [address] [facility] Provider: Missy Carvalho MD, FACC PCP: Dr. Trang Duenas Supervising provider: Marina Goldsmith MD INDICATION: Abnormal EKG; PVC Murmur HISTORY: Gender: M; Age: 83 y/o ; Height: HT 180.3 cm cm; Weight: WT 77.111 kg kg. Abnormal EKG; High Cholesterol; Diabetes; HTN; Arrhythmias; A-fib Quit smoking 34 years ago. COMPARISON: Previous nuclear testing completed [id number] at [facility]. ACCESSION NUMBER(S): [id number] ORDERING CLINICIAN: MISSY CARVALHO TECHNIQUE: ONE DAY protocol. Stress injection: [...] Clarissa Sanchez 02/07/2024 4:47 PM Dictation workstation: [id number] us Generic External Data Provider IMG XR PROCEDURES Final Result documented in this encounter Visit Diagnoses Not on filedocumented in this encounter Care Teams Airframe Technician Relationship Specialty Start Date End Date Nirav Duenas DO [address] [place] [address] PCP - Aetna 05/24/20 Nirav Duenas DO [address] [place] [address] PCP - General Internal Medicine 11/10/22 Marianne Davis MD 3 [facility] 250 [place] [address] Referring Physician Cardiology 05/12/23 documented as of this encounter
--- OUTSIDE RECORDS SUMMARY | 2024-10-30 07:20 | XMS_ITS | Encounter Summary ---
Author Organization [facility] Address [address] [place] [address] Care Team Providers Care Outsole Splicer Name Role Phone Nirav Duenas DO Unavailable [phone] Nirav Duenas DO Primary Care Provider [phone] Marianne Davis MD Unavailable [phone] Encounter Details Date Type Department Care Team (Late st Contact Info) Description 11/11/2023 Orders Only [facility] IM [address] [facility] [address] [place] [address] A, Unknown Practice [address] [place], [place] [address] Social History Tobacco Use Types Packs/Day Years [...] [address] [place] [address] Nirav Duenas DO [address] [place] [address] 04/26/2025 8:35 AM EST Office Visit [facility] [address] [place] [address] Charleen Hensley MD [address] [place] [address] documented as of this encounter Procedures Procedure [...] on filedocumented in this encounter Care Teams Outsole Splicer Relationship Specialty Start Date End Date Nirav Duenas DO [address] [place] [address] PCP - Aetna 05/24/20 Nirav Duenas DO [address] [place] [address] PCP - General Internal Medicine 11/10/22 Marianne Davis MD 703 [facility] [address] [place] [address] Referring Physician Cardiology 05/12/23 documented as of this encounter
--- OUTSIDE RECORDS SUMMARY | 2024-10-30 07:20 | XMS_ITS | Encounter Summary ---
Author Organization [facility] Address [address] [facility] [place] [address] Care Team Providers Care Poultry Husbandry Teacher Name Role Phone Nirav Duenas DO Unavailable [phone] Nirav Duenas DO Primary Care Provider [phone] Marianne Davis MD Unavailable [phone] Encounter Details Date Type Department Care Team (Late Contact Info) Description 03/16/2023 Orders Only [facility] IM [address] [facility] 230 [place] [address] A, Unknown Practice [address] [place], [place] [address] Social History Tobacco Use Types Packs/Day Years [...] 11/14/2024 9:30 AM EDT Office Visit [facility] IM [address] [facility] 230 [place] [address] Nirav Duenas DO [address] [facility] [address] [place] [address] 04/26/2025 8:35 AM EST Office Visit [facility] [address] [place] [address] Charleen Hensley MD [address] [facility] 350 [place] [address] documented as of this encounter Procedures Procedure Name Priority Date/Time Associated Diagnosis Comments DIABETES EYE EXAM Routine 03/16/2023 4:12 PM EDT documented in this encounter Results * Diabetes Eye Exam (03/16/2023 4:12 PM EDT) us Unknown Practice A HEALTH MAINTENANCE Final Resu lt documented in this encounter Visit Diagnoses Not on filedocumented in this encounter Care Teams Poultry Husbandry Teacher Relationship Specialty Start Date End Date Nirav Duenas DO [address] [facility] 230 [place] [address] PCP - Aetna 05/24/20 Nirav Duenas DO [address] [facility] [address] [place] [address] PCP - General Internal Medicine 11/10/22 Marianne Davis MD [address] [address] Referring Physician Cardiology 05/12/23 documented as of this encounter
--- OUTSIDE RECORDS SUMMARY | 2024-10-30 07:20 | XMS_ITS | Encounter Summary ---
Author Organization [facility] Address [address] [facility] [place] [address] Care Team Providers Care Help Desk Internship Name Role Phone Nirav Duenas DO Unavailable [phone] Nirav Duenas DO Primary Care Provider [phone] Marianne Davis MD Unavailable [phone] Encounter Details Date Type Department Care Team (Late Contact Info) Description 12/24/2022 Orders Only [facility] IM [address] [facility] 230 [place] [address] A, Unknown Practice [address] [place], [place] [address] Social History Tobacco Use Types Packs/Day Years [...] 11/14/2024 9:30 AM EDT Office Visit [facility] [address] [facility] 230 [place] [address] Nirav Duenas DO [address] [place] [address] 04/26/2025 8:35 AM EST Office Visit [facility] [address] [place] [address] Charleen Hensley MD [address] [place] [address] documented as of this encounter Procedures Procedure Name Priority Date/Time Associated Diagnosis Comments COLONOSCOPY Routine 12/24/2022 1:49 PM EDT documented in this encounter Results * Colonoscopy (12/24/2022 1:49 PM EDT) Anatomical Region Laterality Modality Endoscopy us Unknown Practice A ENDOSCOPY PROCEDURE ORDERABLE S Final Result documented in this encounter Visit Diagnoses Not on filedocumented in this encounter Care Teams Help Desk Internship Relationship Specialty Start Date End Date Nirav Duenas DO [address] [facility] [address] [place] [address] PCP - Aetna 05/24/20 Nirav Duenas DO [address] [facility] [address] [place] [address] PCP - General Internal Medicine 11/10/22 Marianne Davis MD 3 [facility] [address] [place] [address] Referring Physician Cardiology 05/12/23 documented as of this encounter
--- OUTSIDE RECORDS SUMMARY | 2024-10-30 07:20 | XMS_ITS | Encounter Summary ---
Author Organization [facility] Address [address] [place] [address] Care Team Providers Care Webbing Weaver Name Role Phone Nirav Duensa DO Unavailable [phone] Nirav Duenas DO Primary Care Provider [phone] Marianne Davis MD Unavailable [phone] Encounter Details Date Type Department Care Team [...] IM [address] [place] [address] Nirav Duenas DO [address] [place] [address] 04/26/2025 8:35 AM EST [facility] [address] [place] [address] Charleen Hensley MD [address] [place] [address] documented as of this encounter Procedures Procedure Name Priority Date/Time Associated Diagnosis Comments TRANSTHORACIC ECHO (TTE) COMPLETE 02/21/2024 8:03 AM EDT documented in this encounter Results * Transthoracic echo (TTE) complete (02/21/2024 8:03 AM EDT) Anatomical Region Laterality Modality Ultrasound 02/21/2024 8:03 AM EDT Narrative 02/21/2024 2:06 PM EDT [address], [address] [place] [address] TRANSTHORACIC ECHOCARDIOGRAM REPORT Patient Name: EPIFANIO Kim Physician: [id number] Marina Goldsmith MD Study Date: 02/21/2024 Ordering Provider: [id number] ASHLEY CARVALHO MRN/PID: [id number] Fellow: Nurse: Date of /Age: 1 1940 / 83 years Stick Feeder: Jyoti Gutiérrez RDCS, RVT Gender: M Additional Staff: Height: 180.34 cm Admit Date: Weight: 77.11 kg Admission Status: BSA / BMI: 1.97 m2 / 23.71 kg/m2 Department Location: 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; Paroxysmal atrial fibrillation-I48.0 Indication: Diabetes, HTN, Hyperlipidemia, Murmur, Former Smoker, Prostate Cancer with Metastases, CKD-Stage III CPT Codes: Echo Complete w Full [id number] Study Detail: The following Echo studies were [...] mmHg PIEDV: 2.08 m/s PADP: 20.3 mmHg [id number] Marina Goldsmith MD Electronically signed on 02/21/2024 at 2:06:09 PM Final Procedure Note Radiology, Radiologist, MD - 02/21/[address], [address] [place] [address] TRANSTHORACIC ECHOCARDIOGRAM REPORT Patient Name: EPIFANIO Kim Physician: [id number] Sylvester Study Date: 02/21/2024 Ordering Provider: CHARLETTE CARVALHO MRN/PID: [id number] Fellow: Nurse: Date of /Age: 1 1940 / 83 years Stick Feeder: Sherine ZARAGOZA RVT Gender: M Additional Staff: Height: 180.34 cm Admit Date: Weight: 77.11 kg Admission Status: BSA / BMI: 1.97 m2 / 23.71 kg/m2 Department Location: [facility] Blood Pressure: 142 /84 mmHg Study Type: TRANSTHORACIC ECHO (TTE) COMPLETE Diagnosis/ICD: 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; Paroxysmalatrial fibrillation-I48.0 Indication: Diabetes, HTN, Hyperlipidemia, Murmur, Former Smoker,Prostate Cancer with Metastases, CKD-Stage III CPT Codes: Echo Complete w Full [id number] Study Detail: The following Echo studies were [...] mmHg PIEDV: 2.08 m/s PADP: 20.3 mmHg [id number] Marina Goldsmith MD Electronically signed on 02/21/2024 at 2:06:09 PM Final us Generic External Data Provider CV ECHO PROCEDURE S Final Result documented in this encounter Visit Diagnoses Not on filedocumented in this encounter Care Teams Webbing Weaver Relationship Specialty Start Date End Date Nirav Duenas DO [address] [place] [address] PCP - Aetna 05/24/20 Nirav Duenas DO [address] [place] [address] PCP - General Internal Medicine 11/10/22 Marianne Davis MD [address] [address] Referring Physician Cardiology 05/12/23 documented as of this encounter
--- OUTSIDE RECORDS SUMMARY | 2024-10-30 07:20 | XMS_ITS | Encounter Summary ---
Author Organization [facility] Address [address] [facility] [address] [place] [address] Care Team Providers Care Telephony Engineer Name Role Phone Nirav Duenas DO Unavailable [phone] Nirav Duenas DO Primary Care Provider [phone] Marianne Davis MD Unavailable [phone] Encounter Details Date Type Department Care Team (Late st Contact Info) Description 11/10/2022 Orders Only [facility] IM [address] [place] [address] Provider, MD Wing [address] [place], [place] [id number] Social History Tobacco Use Types Packs/Day Years [...] [address] [place] [address] Nirav Duenas DO [address] [place] [address] 04/26/2025 8:35 AM EST Office Visit [facility] [address] [place] [address] Charleen Hensley MD [address] [place] [address] documented as of this encounter Procedures Procedure Name Priority Date/Time Associated Diagnosis Comments HM COLONOSCOPY Routine 12/16/2015 3:00 PM EDT documented in this encounter Results * Hm Colonoscopy (12/16/2015 3:00 PM EDT) Anatomical Region Laterality Modality Other us Historical Provider HEALTH MAINTENANCE Final Result documented in this encounter Visit Diagnoses Not on filedocumented in this encounter Care Teams Telephony Engineer Relationship Specialty Start Date End Date Nirav Duenas DO [address] [place] [address] PCP - Aetna 05/24/20 Nirav Duenas DO [address] [place] [address] PCP - General Internal Medicine 11/10/22 Marianne Davis MD 703 [facility] [address] [place] [address] Referring Physician Cardiology 05/12/23 documented as of this encounter
--- OUTSIDE RECORDS SUMMARY | 2024-10-30 07:20 | XMS_ITS | Encounter Summary ---
Author Organization [facility] Address [address] [place] [address] Care Team Providers Care Computed Tomography Technician Name Role Phone Nirav Duenas DO Unavailable [phone] Nirav Duenas DO Primary Care Provider [phone] Marianne Davis MD Unavailable [phone] Encounter Details Date Type Department Care Team (Late st Contact Info) Description 09/04/2024 Results Follow-Up [facility] [address] [facility] [address] [place] [address] Charleen Hensley MD [address] [facility] 350 [place] [address] Social History Tobacco Use Types [...] [address] [place] [address] Nirav Duenas DO [address] [place] [address] 04/26/2025 8:35 AM EST Office Visit [facility] [address] [place] [address] Charleen Hensley MD [address] [place] [address] documented as of this encounter Visit Diagnoses Not on filedocumented in this encounter Care Teams Computed Tomography Technician Relationship Specialty Start Date End Date Nirav Duenas DO [address] [place] [address] PCP - Aet[employer] 05/24/20 Nirav Duenas DO [address] [place] [address] PCP - General Internal Medicine 11/10/22 Marianne Davis MD 3 [facility] [address] [place] [address] Referring Physician Cardiology 05/12/23 documented as of this encounter
--- OUTSIDE RECORDS SUMMARY | 2024-10-30 07:20 | XMS_ITS | Encounter Summary ---
Author Organization [facility] Address [address] [facility] [facility] [place] [address] Care Team Providers Care Riding Double Name Role Phone Nirav Duenas DO Unavailable [phone] Nirav Duenas DO Primary Care Provider [phone] Marianne Davis MD Unavailable [phone] Encounter Details Date Type Department Care Team (Late Contact Info) Description 05/06/2023 Orders Only [facility] [address] [facility] [address] [place] [address] A, Unknown Practice [address] [place], [place] [id number] Social History Tobacco Use Types Packs/Day Years [...] 11/14/2024 9:30 AM EDT Office Visit [facility] [address] [facility] [address] [place] [address] Nirav Duenas DO [address] [facility] [address] [place] [address] 04/26/2025 8:35 AM EST Office Visit [facility] [address] [facility] [address] [place] [address] Charleen Hensley MD [address] [facility] [address] [place] [address] documented as of this encounter Procedures Procedure [...] on filedocumented in this encounter Care Teams Riding Double Relationship Specialty Start Date End Date Nirav Duenas DO [address] [facility] [address] [place] [address] PCP - [employer]et[employer] 05/24/20 Nirav Duenas DO [address] [facility] [address] [place] [address] PCP - General Internal Medicine 11/10/22 Marianne Davis MD [address] [facility] [address] [place] [address] Referring Physician Cardiology 05/12/23 documented as of this encounter
--- OUTSIDE RECORDS SUMMARY | 2024-10-30 07:20 | XMS_ITS | Encounter Summary ---
Author Organization [facility] Address [address] [facility] [place] [address] Care Team Providers Care Speech Therapist Name Role Phone Nirav Duenas DO Unavailable [phone] Nirav Duenas DO Primary Care Provider [phone] Marianne Davis MD Unavailable [phone] Encounter Details Date Type Department Care Team (Late st Contact Info) Description 05/12/2023 Orders Only [facility] [address] [place] [address] A, Unknown Practice [address] [place], [place] [phone] Social History Tobacco Use Types Packs/Day Years [...] Questionnaire -2 Score 0 05/12/2023 8:00 AM EST Margaret Reveles LPN documented as of this encounter Plan of Treatment Upcoming Encounters Date Type Department Care Team (Late st Contact Info) Description 11/14/2024 9:30 AM EDT Office Visit [facility] [address] [place] [address] Nirav Duenas DO [address] [place] [address] 04/26/2025 8:35 AM EST Office Visit [facility] [address] [place] [address] Charleen Hensley MD [address] [place] [address] documented as of this encounter Procedures Procedure [...] on filedocumented in this encounter Care Teams Speech Therapist Relationship Specialty Start Date End Date Nirav Duenas DO [address] [place] [address] PCP - [employer] 05/24/20 Nirav Duenas DO [address] [place] [address] PCP - General Internal Medicine 11/10/22 Marianne Davis MD [address] [facility] [address] [place] [address] Referring Physician Cardiology 05/12/23 documented as of this encounter
--- OUTSIDE RECORDS SUMMARY | 2024-10-30 07:20 | XMS_ITS | Encounter Summary ---
Author Organization [facility] Address [address] [facility] [place] [address] Care Team Providers Care Stopper Grinder Name Role Phone Nirav Duenas DO Unavailable [phone] Nirav Duenas DO Primary Care Provider [phone] Marianne Davis MD Unavailable [phone] Encounter Details Date Type Department Care Team (Late Contact Info) Description 09/30/2023 Orders Only [facility] [address] [facility] [address] [place] [address] A, Unknown Practice [address] [place], [place] [phone] Social History Tobacco Use Types Packs/Day Years [...] Department Care Team (Late Contact Info) Description 11/14/2024 9:30 AM EDT Office Visit [facility] [address] [facility] [address] [place] [address] Nirav Duenas DO [address] [facility] [address] [facility] [address] [place] [address] 04/26/2025 8:35 AM EST Office Visit [facility] [address] [place] [address] Charleen Hensley MD [address] [facility] [address] [place] [address] documented as of this encounter Procedures Procedure [...] on filedocumented in this encounter Care Teams Stopper Grinder Relationship Specialty Start Date End Date Nirav Duenas DO [address] [facility] [address] [place] [address] PCP - [employer] 05/24/20 Nirav Duenas DO [address] [facility] [address] [place] [address] PCP - General Internal Medicine 11/10/22 Marianne Davis MD [address] [facility] [address] [place] [address] Referring Physician Cardiology 05/12/23 documented as of this encounter
--- OUTSIDE RECORDS SUMMARY | 2024-10-30 07:20 | XMS_ITS | Encounter Summary ---
Author Organization [facility] Address [address] [place] [address] Care Team Providers Care Network Operations Center Engineer Name Role Phone Nirav Duenas DO Unavailable [phone] Nirav Duenas DO Primary Care Provider [phone] Marianne Davis MD Unavailable [phone] Encounter Details Date Type Department Care Team (Late st Contact Info) Description 11/05/2022 Orders Only [facility] [address] [place] [address] Provider, MD Wing [address] [place] [address] Social History Tobacco Use Types Packs/Day Years [...] [address] [place] [address] Nirav Duenas DO [address] [place] [address] 04/26/2025 8:35 AM EST Office Visit [facility] [address] [place] [address] Charleen Hensley MD [address] [place] [address] documented as of this encounter Procedures Procedure Name Priority Date/Time Associated Diagnosis Comments SCANNED LABS Routine 11/05/2022 1:26 PM EDT SCANNED LABS Routine 11/05/2022 10:01 AM EDT documented in this encounter Results * SCANNED LABS (11/05/2022 1:26 PM EDT) us Historical Provider LAB CHG PERFORMABLES Edit ed Result - Final * SCANNED LABS (11/05/2022 10:01 AM EDT) Historical Provider LAB CHG PERFORMABLES Edit ed Result - Final documented in this encounter Visit Diagnoses Not on filedocumented in this encounter Care Teams Network Operations Center Engineer Relationship Specialty Start Date End Date Nirav Duenas DO [address] [facility] [address] [place] [address] PCP - [employer]et[employer] 05/24/20 Nirav Duenas DO [address] [facility] [address] [place] [address] PCP - General Internal Medicine 11/10/22 Marianne Davis MD [address] [facility] [address] [place] [address] Referring Physician Cardiology 05/12/23 documented as of this encounter
--- OUTSIDE RECORDS SUMMARY | 2024-10-30 07:20 | XMS_ITS | Encounter Summary ---
Author Organization [facility] Address [address] [facility] [place] [address] Care Team Providers Care Plating Department Helper Name Role Phone Nirav Duenas DO Unavailable [phone] Nirav Duenas DO Primary Care Provider [phone] Marianne Davis MD Unavailable [phone] Encounter Details Date Type Department Care Team (Late st Contact Info) Description 12/27/2023 Orders Only [facility] [address] [facility] [place] [address] A, Unknown Practice [address] [place], [place] [phone] Social History Tobacco Use Types Packs/Day Years [...] [address] [place] [address] Nirav Duenas DO [address] [place] [address] 04/26/2025 8:35 AM EST Office Visit [facility] [address] [place] [address] Charleen Hensley MD [address] [place] [address] documented as of this encounter Procedures Procedure [...] on filedocumented in this encounter Care Teams Plating Department Helper Relationship Specialty Start Date End Date Nirav Duenas DO [address] [place] [address] PCP - [employer]et[employer] 05/24/20 Nirav Duenas DO [address] [place] [address] PCP - General Internal Medicine 11/10/22 Marianne Davis MD [address] [facility] [address] [place] [address] Referring Physician Cardiology 05/12/23 documented as of this encounter
--- OUTSIDE RECORDS SUMMARY | 2024-10-30 07:21 | XMS_ITS | Encounter Summary ---
Author Organization [facility] Address [address] [place] [address] Care Team Providers Care Shop Manager Name Role Phone Nirav Duenas DO Unavailable [phone] Nirav Duenas DO Primary Care Provider [phone] Marianne Davis MD Unavailable [phone] Encounter Details Date Type Department Care Team (Late st Contact Info) Description 10/26/2024 Bamboo flowsheet [facility] [address] [facility] [address] [place] [address] Charleen Hensley MD [address] [facility] [address] [place] [address] Social History Tobacco Use Types [...] [address] [place] [address] Nirav Duenas DO [address] [place] [address] 04/26/2025 8:35 AM EST Office Visit [facility] [address] [place] [address] Charleen Hensley MD [address] [place] [address] documented as of this encounter Visit Diagnoses Not on filedocumented in this encounter Care Teams Shop Manager Relationship Specialty Start Date End Date Nirav Duenas DO [address] [place] [address] PCP - Aet[employer] 05/24/20 Nirav Duenas DO [address] [place] [address] PCP - General Internal Medicine 11/10/22 Marianne Davis MD [address] [facility] [address] [place] [address] Referring Physician Cardiology 05/12/23 documented as of this encounter
--- OUTSIDE RECORDS SUMMARY | 2024-10-30 07:21 | XMS_ITS | Encounter Summary ---
Author Organization [facility] Address [address] [facility] [place] [address] Care Team Providers Care Table Tender Name Role Phone Nirav Duenas DO Unavailable [phone] Nirav Duenas DO Primary Care Provider [phone] Marianne Davis MD Unavailable [phone] Encounter Details Date Type Department Care Team (Latest Contact Info) Description 10/26/2024 Travel Social History Tobacco Use Types Packs/Day [...] 11/14/2024 9:30 AM EDT Office Visit [facility] [address] [facility] [address] [place] [address] Nirav Duenas DO [address] [place] [address] 04/26/2025 8:35 AM EST Office Visit [facility] [address] [place] [address] Charleen Hensley MD [address] [facility] [address] [facility] 350 [place] [address] documented as of this encounter Visit Diagnoses Not on filedocumented in this encounter Care Teams Table Tender Relationship Specialty Start Date End Date Nirav Duenas DO [address] [facility] 230 [place] [address] PCP - [employer]et[employer] 05/24/20 Nirav Duenas DO [address] [facility] 230 [place] [address] PCP - General Internal Medicine 11/10/22 Marianne Davis MD [address] [address] Referring Physician Cardiology 05/12/23 documented as of this encounter
--- OUTSIDE RECORDS SUMMARY | 2024-10-30 07:21 | XMS_ITS | Encounter Summary ---
Author Organization [facility] Address [address] [facility] [place] [address] Care Team Providers Care Design Engineering Specialist Name Role Phone Nirav Duenas DO Unavailable [phone] Nirav Duenas DO Primary Care Provider [phone] Marianne Davis MD Unavailable [phone] Encounter Details Date Type Department Care Team (Late st Contact Info) Description 03/17/2024 Orders Only [facility] [address] [facility] [address] [place] [address] A, Unknown Practice [address] [place], [place] [phone] Social History Tobacco Use Types Packs/Day Years [...] [address] [place] [address] 04/26/2025 8:35 AM EST Office Visit [facility] [address] [place] [address] Charleen Hensley MD [address] [place] [address] documented as of this encounter Procedures Procedure [...] on filedocumented in this encounter Care Teams Design Engineering Specialist Relationship Specialty Start Date End Date Nirav Duenas DO [address] [place] [address] PCP - [employer]et[employer] 05/24/20 Nirav Duenas DO [address] [place] [address] PCP - General Internal Medicine 11/10/22 Marianne Davis MD [address] [facility] [address] [place] [address] Referring Physician Cardiology 05/12/23 documented as of this encounter
--- OUTSIDE RECORDS SUMMARY | 2024-10-30 07:21 | XMS_ITS | Encounter Summary ---
Author Organization [facility] Address [address] [facility] [place] [address] Care Team Providers Care Wire Frame Lampshade Maker Name Role Phone Nirav Duenas DO Unavailable [phone] Nirav Duenas DO Primary Care Provider [phone] Marianne Davis MD Unavailable [phone] Encounter Details Date Type Department Care Team (Late st Contact Info) Description 01/11/2024 Orders Only [facility] [address] [facility] [address] [place] [address] A, Unknown Practice [address] [place], [place] [phone] Social History Tobacco Use Types Packs/Day Years [...] [address] [place] [address] Nirav Duenas DO [address] [place] [address] 04/26/2025 8:35 AM EST Office Visit [facility] [address] [place] [address] Charleen Hensley MD [address] [place] [address] documented as of this encounter Procedures Procedure [...] on filedocumented in this encounter Care Teams Wire Frame Lampshade Maker Relationship Specialty Start Date End Date Nirav Duenas DO [address] [place] [address] PCP - [employer] 05/24/20 Nirav Duenas DO [address] [facility] [address] [place] [address] PCP - General Internal Medicine 11/10/22 Marianne Davis MD [address] [place] [address] Referring Physician Cardiology 05/12/23 documented as of this encounter
--- OUTSIDE RECORDS SUMMARY | 2024-10-30 07:21 | XMS_ITS | Clinical Summary ---
Author Organization [facility] Healthcare Address [address] [place] [address] Care Team Providers Care Food Safety Specialist Name Role Phone Nirav Duenas DO Unavailable [phone] Nirav Duenas DO Primary Care Provider Marianne Davis MD Unavailable [phone] Allergies Active Allergy Reactions Criticality Noted Date [...] the morning and 50 mg before bedtime. 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 180 tablet 3 4 Active magnesium oxide (Mag-Ox) 400 MG tablet Take 400 mg by mouth in the morning and 400 mg in the evening. 4 01/13/20 25 Active denosumab (Xgeva) 120 MG/1.7ML injection Inject 120 mg under the skin every 30 (thirty) days Active cloNIDine (Catapres) 0.1 MG tabletIndications:P rimary hypertension (CMS/HCC),PAF (paroxysmal atrial fibrillation) (CMS/HCC),Chest pain, unspecified type Take 1 tablet (0.1 mg) by mouth 2 (two) times a day as needed for high blood pressure 180 tablet 1 4 Active pancrelipase, Fel-Aglx-Vocd, (Creon) 37873-68780 units capsuleIndications: Malignant neoplasm of prostate (CMS/HCC),Exocrine pancreatic insufficiency (CMS/HCC) TAKE 1 CAPSULE IN THE MORNING, 1 CAPSULE AT NOON AND 1 CAPSULE IN THE EVENING WITH MEALS 360 capsule 2 5 Active amLODIPine (Norvasc) 5 MG tabletIndications:P rimary hypertension (CMS/HCC) Take 1 tablet (5 mg) by mouth Daily 90 tablet 3 5 Active metFORMIN (Glucophage) 500 MG tabletIndications:T ype 2 diabetes mellitus with other specified complication, without long-term current use of insulin TAKE 1 TABLET IN THE EVENING WITH A MEAL 90 tablet 3 5 Active dicyclomine (Bentyl) 20 MG tabletIndications:O ther irritable bowel syndrome Take 1 tablet (20 mg) by mouth 4 (four) times a day as needed (abdominal pain or cramps) 120 tablet 3 5 Active abiraterone (Zytiga) 250 MG chemo tablet 5 Active predniSONE (Deltasone) 5 MG tablet Take 5 mg by mouth Daily Take with food. 5 Active fluorouracil (Efudex) 5 % creamIndications:Ac tinic keratosis Apply to directed areas on the face, and backs of hands twice a day x 14 days. Dispense 30 day supply but only use for 14 days 40 g 2 5 Active Active Problems Problem Noted Date Diagnosed Date [...] Encounters Date Type Department Care Team Description 10/26/2024 9:45 AM EDT Office Visit [facility] [address] [place] [phone] Charleen Hensley MD Seborrheic keratosis (Primary Dx); Lentigines; Actinic keratosis; Neoplasm of unspecified behavior of bone, soft tissue, and skin; History of malignant neoplasm of skin 10/26/2024 Bamboo flowsheet [facility] [address] [place] [phone] Charleen Hensley MD 10/26/2024 Travel 10/13/2024 Clinisync Result Encounter [facility] External Department Unsolicited Provider, Generic External Data 10/05/2024 Telephone [facility] [address] [place] [phone] Lexx Santizo MA Med Refill 09/25/2024 Telephone [facility] [address] [place] [address] Nirav Duenas, Medication Question 09/22/2024 Refill [facility] [address] [place] [address] Nirav Duenas, Type 2 diabetes mellitus with other specified complication, without long-term current use of insulin 09/13/2024 10:45 AM EDT Office Visit [facility] [address] [place] [phone] Lizandro Talbert MD Encounter for removal of sutures 09/13/2024 Bamboo flowsheet [facility] [address] [place] [phone] Lizandro Talbert MD 09/13/2024 Travel 09/04/2024 8:00 AM EDT Office Visit [facility] [address] [place] [phone] Nirav Duenas DO PAF (paroxysmal atrial fibrillation) (CMS/HCC) (Primary Dx); Stage 3a chronic kidney disease (HCC) (CMS/HCC); Type 2 diabetes mellitus with other specified complication, without long-term current use of insulin; Mixed hyperlipidemia (CMS/HCC); Exocrine pancreatic insufficiency (CMS/HCC); Primary hypertension (CMS/HCC); Type 2 diabetes mellitus with diabetic chronic kidney disease (CMS/HCC); Secondary malignant neoplasm of bone (CMS/HCC) 09/04/2024 Results Follow-Up [facility] [address] [place] [phone] Charleen Hensley MD 09/04/2024 Telephone [facility] [address] [place] [phone] Cecilia Batista LPN Care Coordination 09/04/2024 Travel 08/30/2024 10:30 AM EDT Office Visit [facility] [address] [place] [phone] Charleen Hensley MD Squamous cell carcinoma of skin of left upper limb, including shoulder (Primary Dx) 08/30/2024 Travel 08/25/2024 Clinisync Result Encounter [facility] External Department Unsolicited Provider, Generic External Data 08/24/2024 Travel 08/07/2024 Telephone [facility] [address] [place] [phone] Lexx Santizo MA Xarelto Hold 08/04/2024 10:00 AM EDT Office Visit [facility] [address] [place] [phone] Olga Morocho NP Primary hypertension (CMS/HCC) (Primary Dx) 08/04/2024 Travel 08/02/2024 Travel 08/01/2024 Telephone [facility] [address] [place] [phone] [facility] [place] [facility]ension from Last 3 Months Immunizations Immunization Administration Dates Next Due Influenza, High Dose Seasona l, Preservative Free 03/12/2021,02/24/2020,03/01/2019,02/21,02/25/2018,03/16/2017,03/30/2016 ,03/22/2015 Influenza, High-dose Seasona l, Quadrivalent, Preservative Free 02/26/2021 Influenza, Seasonal, Quadriv alent, Adjuvanted 03/20/2023,03/10/2022,03/15/2020 Influenza, seasonal, intrade rmal, preservative free 05/02/2015 Moderna SARS-CoV-2 Booster Vaccination 1 Novel [id number], preservative-free 05/31/2009 Pneumococcal Conjugate PCV 13 05/24/2016, [...] 11/14/2024 9:30 AM EDT Office Visit [facility] [address] [place] [phone] Nirav Duenas DO [address] [place] [address] 04/26/2025 8:35 AM EST Office Visit [facility] [address] [place] [phone] Charleen Hensley MD [address] [place] [address] Health Maintenance Due Date Last Done Comments CT Colonography 1938 FIT-DNA 1938 FIT 1938 FOBT 1938 Medicare Annual Wellness (AWV) 1940 Sigmoidoscopy 1940 Diabetes: Hemoglobin A1C 08/08/2024 024, 11/05/2022, 05/06/2022, Additional history exists Diabetes: Urine Protein Screening 10/31/2024 11/01/2023, 11/05/2021, 11/07/2020 Diabetes: Retinopathy Screening 03/16/2026 03/16/2024, 12/11/2021, 06/20/2018 Colonoscopy 12/24/2032 12/24/2022, 11/22, 11/28/2015 Colorectal Cancer Screening 12/24/2032 Pneumococcal Vaccine: 65+ Years Completed 05/24/2016, 12/14/2013, 05/24/2012, Additional history exists Influenza Vaccine Completed 03/25/2024, , 03/10/2022, Additional history exists Procedures Procedure Name Priority Date/Time Associated Diagnosis Comments CRYOTHERAPY SKIN LESION Routine 10/27/19 9:53 AM EDT Actinic keratosis SKIN / [...] behavior of bone, soft tissue, and skin ALL TESTOSTERONE Routine 10/13/2024 7:24 AM EDT MHPT PSA, DIAGNOSTIC Routine 10/13/2024 7:24 AM EDT [facility] CMP (CMP) (FOR REMOTE [facility] USE) Routine 10/13/2024 7:24 AM EDT ALL CBC WITH AUTO DIFF Routine 7:24 AM EDT SKIN REPAIR Routine 08/30/2024 10:27 AM EDT [...] AM EDT [facility] CMP (CMP) (FOR REMOTE [facility] USE) Routine 08/25/2024 8:07 AM EDT ALL CBC WITH AUTO DIFF Routine 8:07 AM EDT POCT GLYCOSYLATED HEMOGLOBIN (HGB A1C) Routine 05/10/2024 10:53 AM EST Type 2 diabetes mellitus with other specified complication, without long-term current use of insulin ([facility]) DIABETIC RETINOPATHY SCREENING - OU - BOTH EYES Routine 03/16/2024 9:30 AM EDT COLONOSCOPY Routine 12/24/2022 1:49 PM EDT MICROALBUMIN CREATININE RATIO, U Routine 11/05/2021 from Last 3 Months or Most Recently Relevant to Health Maintenance Results * Cryotherapy, skin lesion (10/26/2024 9:53 [...] taken Amount of lidocaine used: 2.0 cc Charleen Hensley MD DERM PROCEDURE ORDERABLES Fin [...] taken Amount of lidocaine used: 1.0 cc Charleen Hensley MD DERM PROCEDURE ORDERABLES Fin al Result * Lesion biopsy (10/26/2024 9:44 AM EDT) Narrative Leena Matthews LPN - 10/26/2024 9:44 AM EDT Type of [...] taken Amount of lidocaine used: 3.0 cc Charleen Hensley MD DERM PROCEDURE ORDERABLES Fin al Result * MHPT PSA, DIAGNOSTIC (10/13/2024 7:24 AM EDT) Only the most recent of2 resultswithin the time period is included. PROSTATE SPECIFIC ANTIGEN DX 0.63 <=4.00 ng/mL [facility] 10/13/2024 7:24 AM EDT 10/13/2024 7:26 AM EDT Narrative [facility] - 10/13/2024 8:53 AM EDT Generic External Data Provider [facility] F inal Result [facility] * (ABNORMAL) [facility] CMP (CMP) (FOR REMOTE [facility] USE) (10/13/2024 7:24 AM EDT) Only the most recent of2 resultswithin the time period is included. SODIUM 146(H) 136 - 145 mmol/L [facility] POTASSIUM 3.8 3.5 - 5.1 mmol/L [facility] CHLORIDE 109(H) 98 - 107 mmol/L [facility] CARBON DIOXIDE 28.6 21.0 - 32.0 mmol/L [facility] ANION GAP 12.2 [facility] GLUCOSE 133(H) 74 - 106 mg/dL [facility] BLOOD UREA NITROGEN 17.0 7.0 - 18.0 mg/dL [facility] CREATININE 1.14 0.70 - 1.30 mg/dL [facility] TB[facility] EGFR-AF SUDANESE >60 >=60 mL/min/1. 73m 2 TBH TBH EGFR-NON AF SUDANESE >60 >=60 mL/min/1. 73m 2 [facility] BUN CREATININE RATIO 14.9 [facility] CALCIUM 8.4(L) 8.5 - 10.1 mg/dL [facility] BILIRUBIN TOTAL 0.5 0.2 - 1.0 mg/dL [facility] ASPARTATE AMINO TRANSFERASE 22 15 - 37 U/L [facility] ALANINE AMINOTRANSFERASE 29 16 - 63 U/L [facility] ALKALINE PHOSPHATASE 52 46 - 116 U/L [facility] TOTAL PROTEIN 6.1(L) 6.4 - 8.2 g/dL [facility] ALBUMIN LEVEL 3.2(L) 3.4 - 5.0 g/dL [facility] GLOBULIN 2.9 g/dL [facility] ALBUMIN GLOBULIN RATIO 1.1 [facility] 10/13/2024 7:24 AM EDT 10/13/2024 7:26 AM EDT Narrative [facility] - 10/13/2024 7:47 AM EDT us Generic External Data Provider [facility] F inal Result [facility]OUNTS INCLUDE 234 BEDS AT [facility] * (ABNORMAL) ALL TESTOSTERONE (10/13/2024 7:24 AM EDT) Only the most recent of2 resultswithin the time period is included. TESTOSTERONE <3(A) 264 - 916 ng/dL [facility] Comment: Adult male reference interval is based on a population of healthy nonobese males (BMI <30) between 19 and 39 years old. John et.al. JCEM 2017,102;4050-2997. PMID: [id number]. Performed at: [address] [id number] Printing Mechanist: Miguel Cullen PhD, Phone: [phone] 10/13/2024 7:24 AM EDT 10/13/2024 7:26 AM EDT Narrative [facility] - 10/14/2024 4:07 AM EDT us Generic External Data Provider TONY Schneider inal Result TONY [facility] * (ABNORMAL) ALL CBC WITH AUTO DIFF (10/13/2024 7:24 AM EDT) Only the most recent of2 resultswithin the time period is included. Pathologist [facility] TB WBC 9.7 4.0 - 11.0 10 3/uL TBH TBH RBC 3.83(L) 4.70 - 6.10 10 6/uL TBH TBH HGB 11.8(L) 14.0 - 18.0 g/dL TBH TBH HCT 36.0(L) 42.0 - 54.0 % TBH TBH MCV 94.0 80.0 - 94.0 fL TBH TBH MCH 30.8 25.9 - 34.0 pg TBH TBH MCHC 32.8 29.9 - 35.2 g/dL TBH TBH RDW 13.4 11.0 - 15.0 % TBH TBH PLT 181 150 - 450 10 3/uL TBH TBH MPV 10.2 9.5 - 13.5 fL TBH NEUTROPHILS PERCENT AUTO 60.3 43.0 - 75.0 % TBH LYMPHOCYTES PERCENT AUTO 30.3 20.5 - 60.0 % TB[facility] MONOCYTES PERCENT AUTO 5.7 1.7 - 12.0 % TBH TBH EO % 2.5 0.9 - 7.0 % [facility] BASOPHILS PERCENT AUTO 0.8 0.2 - 2.0 % TB[facility] IMMATURE GRANULOCYTES PCT AUTO 0.4 0.0 - 0.5 % TBH NEUTROPHILS ABSOLUTE AUTO 5.8 1.4 - 6.5 10 3/uL TBH LYMPHOCYTES ABSOLUTE AUTO 2.9 1.2 - 3.8 10 3/uL TBH MONOCYTES ABSOLUTE AUTO 0.6 0.3 - 0.8 10 3/uL TBH TBH EO # 0.2 0.0 - 0.7 10 3/uL TBH BASOPHILS ABSOLUTE AUTO 0.1 0.0 - 0.1 10 3/uL [facility] IMMATURE GRANULOCYTES ABS AUTO 0.04(H) 0.00 - 0.03 10 3/uL [facility] 10/13/2024 7:24 AM EDT 10/13/2024 7:26 AM EDT Narrative TONY - 10/13/2024 7:37 AM EDT Generic External Data Provider TONY mosley Result TONY [facility] * Skin repair (08/30/2024 10:27 AM EDT) [...] * Dermatopathology exam (08/30/2024 12:00 AM EDT) SPECIMEN TYPE ------ SPECIMEN: LEFT SHOULDER ------ [facility] ICD10 Code C44.621 [facility] PROTOCOL EXC - EXCISION AUROR A [facility] Final Diagnosis WOUND REPAIR REACTION WITH STROMAL INFLAMMATION-M ARGINS CLEAR IN TISSUE PLANES EXAMINED. COMMENT: This material was reviewed with [id number]. [facility] Gross Text 1.0x1.0cm scar 0.5cm from margin 4 blocks, (tips in 1) (4 in 2) (3 in 3) (2 in 4) (jg/shiva) (09/01/24) [facility] Microscopic Description Microscopic examination performed. [facility] CPT 43310*1 [facility] Skin Topography unknown / Unknown 08/30/2024 10:27 AM EDT Comment:Differential Diagnos is: SCC Check Margins: Yes Size of lesion: 1.2 x 1.1 cm Previous accession number: [id number] Result [facility] Charleen Hensley MD LAB PATHOLOGY ORDERABLES Alie l Result [facility] * POCT glycosylated hemoglobin (Hb A1C) docked device (05/10/2024 10:53 AM EST) Hemoglobin A1C 7.6 Blood Venous blood specimen / Unknown 05/10/2024 10:53 AM EST Result [facility] Nirav Duenas DO POINT OF CARE TEST ENTER/TERESA T ORDERABLES Final Result * Diabetic Retinopathy Screening - OU - Both Eyes (03/16/2024 9:30 AM EDT) Anatomical Region Laterality Modality Head Other Unknown Practice A OPHTH PHOTOGRAPHY Final Resul [...] LAB: see note [facility] Comment:[facility] - [address] [address] ,Ext. [phone] 11/05/2021 Result [facility] Nirav Duenas DO [facility] Final Result [facility] from Last 3 Months or Most Recently Relevant to Health Maintenance Insurance [employer] Care Teams Food Safety Specialist Relationship Specialty Start Date End Date Nirav Duenas DO [address] [place] [address] PCP - [employer] 05/24/20 Nirav Duenas DO [address] [place] [address] PCP - General Internal Medicine 11/10/22 Marianne Davis MD [address] [facility] [address] [place] [address] Referring Physician Cardiology 05/12/23
[2024-10-30 12:02] LABS: Prostate Specific Antigen Dx 0.66 ng/mL (<=4.00)
[2024-10-31 04:07] LABS: Testosterone <3 ng/dL (264-916)
== END 2024-10-30 07:18 | disposition home or self-care (01) ==
PROVIDERS: PCP Internal Medicine; Visit Provider Urology
DX: E78.2 Mixed hyperlipidemia (principal); C61 Malignant neoplasm of prostate; E11.22 Type 2 diabetes mellitus with diabetic chronic kidney disease; N18.31 Chronic kidney disease, stage 3a; I12.9 Hypertensive chronic kidney disease with stage 1 through stage 4 chronic kidney disease, or unspecified chronic kidney disease
CPT/HCPCS: 36415; 80053; 80061; 82043; 82570; 84153; 84403; 84443; 85025

== ENCOUNTER 2024-11-13 07:19 | Outpatient (OUT) | payer MEDICARE, SELFPAY ==
--- OUTSIDE RECORDS SUMMARY | 2024-11-13 07:24 | XMS_ITS | CCD ---
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 Nirav Bello Abhilash Primary Care Unavai [...] ACE, NIRAV A Primary Care Unavailable Ace DO, Nirav A Unavailable Ace DO, Nirav A Primary Care Provider Roxi Davis MD Unavailable Nirav Bello DO Primary Care Provider Colin [...] Unavailable PETITTI, LAURA A Attending Unavailable ACE, NRIAV A Attending Unavailable ACE, NIRAV A Referring Unavailable AAMIR NANCE Attending Unavailable PETITTI, LAURA A Attending Unavailable JUAN GUZMAN Attending Unavailable PETITTI, LAURA A Referring Unavailable ACE, NIRAV A Attending Unavailable ACE, NIRAV A Attending Unavailable ACE, NIRAV A Referring Unavailable PETITTI, LAURA A Attending Unavailable ACE, NIRAV A Attending Unavailable ACE, NIRAV A Referring Unavailable Unavailable Unavailable Unavailable Allergies Allergy Classification Reported Allergen(s) Allergy Type Date of Onset Reaction(s) Facility (4 sources) Sulfonamides (Antibiotic); Translations: [Sulfa Drugs] Allergy to drug (finding) Hives [facility] 250 DO Work Phone: (15 sources) Sulfonamides (Antibiotic); Translations: [SULFA (SULFONAMIDE ANTIBIOTICS)] Allergy to substance 2 [facility] (1 source) Sulfonamides (Antibiotic) Drug allergy (disorder) [facility] Repository (20 sources) Substance with sulfonamide structure and antibacterial mechanism of action (substance) Drug allergy 4 [facility] (11 sources) abiraterone; Translations: [ABIRATERONE] Drug Allergy 4 [facility] [place] Repository (20 sources) Sulfanilamide Allergy to substance 3 Unknown [facility] Healthcare Medications Current Medications Medication Drug Class(es) Dates Sig (Normalized) Sig (Original) abiraterone acetate 250 mg oral tablet (8 sources) Cytochrome P450 17A1 Inhibitor Start: 10-15-2024 abiraterone (Zytiga) 250 MG chemo tablet 10/15/2024 Active take 4 tablets by mouth once aristides ly abiraterone (Zytiga) 250 MG chemo tablet Take 4 tablets by mouth Daily. Swallow whole. Do not eat 2 hrs before or 1 hr after. Active amLODIPine 5 mg oral tablet (17 sources) Dihydropyridine Calcium [employer] Neeru Start: 08-01-2024 End: 10-02-2025 take 1 tablet by mouth once daily amLODIPine (Norvasc) 5 MG tablet Indications: Primary hypertension Take 1 tablet (5 mg) by mouth Daily 90 tablet 3 08/04/2024 Active amylase 257648 unt / lipase 56159 unt / protease 46920 unt delayed release oral capsule (20 sources) Start: 07-03-2024 pancrelipase, Yye-Vejg-Evwk, (Creon) 21883-30855 units capsule Indications: Malignant neoplasm of prostate (HCC) , Exocrine pancreatic insufficiency (HCC) TAKE 1 CAPSULE IN THE MORNING, 1 CAPSULE AT NOON AND 1 CAPSULE IN THE EVENING WITH MEALS 360 capsule 2 07/03/2024 Active Start: 01-17-2024 Creon 14386-92 000 units capsule Indications: Malignant neoplasm of prostate (CMS/HCC) , Exocrine pancreatic insufficiency (CMS/HCC) TAKE 1 CAPSULE IN THE MORNING, 1 CAPSULE AT NOON AND 1 CAPSULE IN THE EVENING WITH MEALS 300 capsule 1 01/17/2024 Active Start: 05-12-2023 pancrelipase, Kzd-Nevk-Hjbw, (Creon) 69883-71037 units capsule Indications: Malignant neoplasm of prostate (CMS/HCC) , Exocrine pancreatic insufficiency (CMS/HCC) Take 1 capsule by mouth in the morning and 1 capsule at noon and 1 capsule in the evening. Take with meals. 270 capsule 1 05/12/2023 Active Start: 11-17-2022 take 1 capsule by mo [facility] three times daily ebssrj-ykkkkdnz-elvpsbw (Creon) 24,000-76,000 -120,000 unit capsule Take 1 capsule by mouth 3 times daily (morning, midday, late afternoon). 11/17/2022 Active Start: 11-17-2022 Creon 10043-79 000 UNIT 1 with each meal Orally [...] (Lipitor) 20 MG tablet Indications: Mixed hyperlipidemia TAKE 1 TABLET AT NIGHT 90 tablet 3 01/06/2024 Active Start: 12-05-2021 [facility] daily at bedtime Atorvastatin 10 mg [...] (Catapres) 0.1 MG tablet Indications: Primary hypertension , PAF (paroxysmal atrial fibrillation) (HCC) , Chest pain, unspecified type Take 1 [...] Active dicyclomine hydrochloride 20 mg oral tablet (14 sources) Anticholinergic Start: 025 take 1 tablet [...] lisinopril 20 MG tablet Indications: Primary hypertension Take 1 tablet [...] complication, without long-term current use of insulin (HCC) TAKE 1 TABLET IN THE EVENING WITH [...] of major depressive disorder without prior episode TAKE 1 TABLET AT BEDTIME 90 tablet 3 02/15/2024 Active polyethylene glycol 3350 472456 mg / potassium chloride 2970 mg / sodium bicarbonate 6740 mg / sodium chloride 5860 mg / sodium sulfate 16485 mg powder for oral solution (2 sources) [...] mouth see administration instructions. 0 Active Vit C,E-Di-Bwsva-Lutein-Zeax an (Preservision Areds-2) 250-90-40-1 mg Capsule (4 sources) Start: 12-05-2021 Vit C,Q-Hl-Bhdjv-Lutein-Zeax an (Preservision Areds-2) 250-90-40-1 mg Capsule Active 1 TAB PO Every morning December 05, 2021 12:47pm Start: 12-05-2021 Vit C,E-Zn-Metal Smelter rg-Eqzygr-Mgkbyt (Preservision Areds-2) 250-90-40-1 mg Capsule Active 1 [...] ascorbic acid 226 mg / beta carotene 49294 unt / cuprous oxide 0.8 mg / [...] [Secondary malignant neoplasm of bone] Onset: 05-02-2015 Resolved: 11-09-2024 Chronic Cardiac dysrhythmias (20 sources) Paroxysmal atrial [...] [Benign essential hypertension] Onset: 05-02-2015 07-13-2023 Chronic Hypertension with complications and secondary hypertension (8 sources) Benign hypertensive renal disease; Translations: [Hypertensive chronic kidney disease with stage 5 chronic kidney disease or end stage renal disease] Onset: 05-01-2024 Resolved: 11-09-2024 05-01-2024 Chronic Miscellaneous mental health disorders (2 [...] anticoagulants] Episodic Other aftercare (3 sources) Other roasterman (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; Translations: [OTH 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 CURRENT DRUG THERAPY] Onset: 11-06-2021 Episodic Other aftercare (15 sources) Long-term current use of anticoagulant; Translations: [half-way (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 of anticoagulants] Onset: 01-13-2024 Resolved: 11-09-2024 05-01-2024 Episodic Other aftercare (4 sources) Removal of [...] Episodic Other nutritional; endocrine; and metabolic disorders (3 [...] [Allergic rhinitis, unspecified] Onset: 05-10-2024 05-10-2024 Chronic Past or Other Problems Problem Classification Problem Date Documented Date Episodic/Chronic Administrative/socia l admission (7 sources) Patient encounter status; Translations: [Person consulting for explanation of examination or test findings] Onset: 05-01-2024 Resolved: 11-09-2024 05-01-2024 Episodic Deficiency and other anemia (20 sources) Anemia; Translations: [Anemia, unspecified] Onset: 11-04-2016 11-03-2022 Episodic Heart valve disorders (19 sources) Nonrheumatic mitral (valve) insufficiency; Translations: [Non-rheumatic mitral regurgitation ] Onset: 01-13-2024 Resolved: 11-09-2024 Chronic Other aftercare (12 sources) Taking high risk medication; Translations: [Other roasterman (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] Onset: 01-13-2024 Resolved: 11-09-2024 01-13-2024 Episodic Other aftercare (4 sources) Treatment changed; Translations: [Other fpc (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] Onset: 10-02-2024 Resolved: 11-09-2024 10-02-2024 Episodic Other aftercare (2 sources) 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; Translations: [half-way (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 of anticoagulants] Onset: 01-13-2024 Episodic Other nutritional; endocrine; and metabolic disorders (4 sources) Fat pad syndrome; Translations: [Localized adiposity] Onset: 11-09-2024 Resolved: 11-09-2024 11-09-2024 Chronic Other screening for suspected conditions (not mental disorders or infectious disease) (6 sources) Abnormal electrocardiogram [ECG] [EKG]; Translations: [Electrocardiogram abnormal] Onset: 01-13-2024 Episodic Pancreatic disorders (not diabetes) (20 sources) Other specified diseases of pancreas; Translations: [Exocrine pancreatic insufficiency] Onset: 05-12-2023 Episodic Residual codes; unclassified (9 sources) Body mass index 20-24 - normal; Translations: [Body Mass Index between 19-24, adult] Onset: 05-01-2024 Resolved: 11-09-2024 05-01-2024 Episodic Residual codes; unclassified (2 sources) Body mass index (BMI) 23.0-23.9, adult; Translations: [Body mass index (BMI) 23.0-23.9, adult] Onset: 05-01-2024 Episodic Screening and history of mental health and substance abuse codes (18 sources) Ex-smoker; Translations: [Personal history of nicotine dependence] Onset: 07-13-2023 Resolved: 11-09-2024 07-13-2023 Episodic Unclassified (3 sources) Never smoked tobacco; Translations: [Never a smoker] Unclassified (10 sources) Onset: 07-13-2023 Resolved: 10-02-2024 07-13-2023 Results Test Name Value Interpretation Reference Range Facility ALL CBC WITH AUTO DIFFon BASOPHILS ABSOLUTE AUTO 0.1 N [facility] Basophils/100 WBC (Bld) 1.1 % 0.2 - 2.0 % [facility] Eosinophils/100 WBC (Bld) 4 % 0.9 - 7.0 % [facility] Erythrocyte distribution width (RBC) [Ratio] 14.1 % 11.0 - 15.0 % [facility] Hematocrit (Bld) [Volume fraction] 36.2 % Low 42.0 - 54.0 % [facility] Hemoglobin (Bld) [Mass/Vol] 12.3 g/dL Low 14.0 - 18.0 g/dL [facility] IMMATURE GRANULOCYTES ABS AUTO 0.06 High [facility] Immature granulocytes/100 WBC (Bld) 0.7 % High 0.0 - 0.5 % [facility] Interpretation and review of laboratory results Abnormal [facility] LYMPHOCYTES ABSOLUTE AUTO 2.8 [facility] Lymphocytes/100 WBC (Bld) 31.2 % 20.5 - 60.0 % [facility] MCH (RBC) [Entitic mass] 31.6 pg 25.9 - 34.0 pg [facility] MCHC (RBC) [Mass/Vol] 34 g/dL 29.9 - 35.2 g/dL [facility] MCV (RBC) [Entitic vol] 93.1 fL 80.0 - 94.0 fL [facility] MONOCYTES ABSOLUTE AUTO 0.6 N [facility] Monocytes/100 WBC (Bld) 7.1 % 1.7 - 12.0 % [facility] NEUTROPHILS ABSOLUTE AUTO 5.1 [facility] Neutrophils/100 WBC (Bld) 55.9 % 43.0 - 75.0 % [facility] Platelet mean volume (Bld) [Entitic vol] 10.5 fL 9.5 - 13.5 fL [facility] EO # 0.4 [facility] PLT 206 [facility] RBC 3.89 Low [facility] WBC 9.1 [facility] No Panel Informationon 10-26 [facility] Type of biopsy: tangential Informed [...] taken Amount of lidocaine used: 2.0 cc [facility] Type of biopsy: tangential Informed consent: discussed [...] taken Amount of lidocaine used: 1.0 cc [employer] Type of biopsy: tangential Informed consent: discussed [...] taken Amount of lidocaine used: 3.0 cc [facility] No Panel Informationon 08-30 Lesion length (cm): [...] 9.0 ml Estimated blood loss: 1.0 ml [facility] Complexity: Intermediate Final length (cm): 5.3 Reason [...] uncontrollable bleeding, or complications. Dressing type: bandage [facility] No Panel InformationOrdered By: Danielle Leblanc on 08-30-2024 [facility] Work Phone: ALL CBC WITH AUTO DIFFon BASOPHILS ABSOLUTE AUTO 0.1 N [facility] Basophils/100 WBC (Bld) 1.1 % 0.2 - 2.0 % [facility] Eosinophils/100 WBC (Bld) 5 % 0.9 - 7.0 % [facility] Erythrocyte distribution width (RBC) [Ratio] 13.2 % 11.0 - 15.0 % [facility] Hematocrit (Bld) [Volume fraction] 37.9 % Low 42.0 - 54.0 % [facility] Hemoglobin (Bld) [Mass/Vol] 12.4 g/dL Low 14.0 - 18.0 g/dL [facility] IMMATURE GRANULOCYTES ABS AUTO 0.04 High [facility] Immature granulocytes/100 WBC (Bld) 0.5 % 0.0 - 0.5 % [facility] Interpretation and review of laboratory results Abnormal [facility] LYMPHOCYTES ABSOLUTE AUTO 2.3 [facility] Lymphocytes/100 WBC (Bld) 30.7 % 20.5 - 60.0 % [facility] MCH (RBC) [Entitic mass] 30.5 pg 25.9 - 34.0 pg [facility] MCHC (RBC) [Mass/Vol] 32.7 g/dL 29.9 - 35.2 g/dL [facility] MCV (RBC) [Entitic vol] 93.3 fL 80.0 - 94.0 fL [facility] MONOCYTES ABSOLUTE AUTO 0.5 N [facility] Monocytes/100 WBC (Bld) 5.9 % 1.7 - 12.0 % [facility] NEUTROPHILS ABSOLUTE AUTO 4.3 [facility] Neutrophils/100 WBC (Bld) 56.8 % 43.0 - 75.0 % [facility] Platelet mean volume (Bld) [Entitic vol] 9.8 fL 9.5 - 13.5 fL [facility] TBH EO # 0.4 [facility] TB PLT 227 [facility] RBC 4.06 Low [facility] WBC 7.6 [facility] Glucose Glucometer (dC) [M ass/Vol]Ordered By: Colin Thompson on 08-09-2024 Glucose [Mass/Vol] Capillary blood glucose measurement by glucometer (mass/volume) [facility] Comment on above: Random Glucose Refer ence Range is dependent on time and content of last meal. Glucose of more than 200 mg/dL in a nonstressed, ambulatory subject supports the diagnosis of Diabetes Mellitus. Glucose Poct Glucometerson 0 08-09-2024 Commemt1 Glu2: Cleaned Meter Normal [facility] Comment on above: Result Comment: PERF ORMED BY: [facility] [address] [address] PATHOLOGIST DRY CLEANER APPRENTICE JOSE DOWNEY M.D. Performed By: #### G LULS #### Point of Care testing , Glucose [Mass/Vol] 216 mg/dL Normal [facility] Comment on above: Result Comment: [place] om Glucose Reference Range is dependent on time and content of last meal. Glucose of more than 200 mg/dL in a nonstressed, ambulatory subject supports the diagnosis of Diabetes Mellitus. Performed By: #### G PRAMOD #### Point of Care testing , Joni 08-09-2024 L - -------- Specimen: [id number] Received: 08/09/24 Status: DEONDRE Watts Num: [id number] Spec Type: Surgical Subm Dr: Colin Thompson MD Tissues: A Skin-Other than Cyst, tag, debridement or plastic repair (R LOWER LEG) Procedures: Lizett HERNANDEZ/Saurabh Hedrick -------- Age/ Patient Sex Location Account Attending Physician -------- Epifanio Alvarez/M [place] [id number] Colin Thompson MD -------- SPEC NUM: [id number] RECD: 08/09/24 STATUS: DOENDRE WATTS NUM: [id number] JARRET: 08/09/24- SUBM DR: Colin Thompson MD ENTERED: 08/09/24 [facility] DR: RYAN TYPE: Surgical DEPT: S ENTERED BY: [id number] RECV BY: [id number] ORDERED: HE/8, Gross/Micro L4 ORDERED: HE/8, Gross/Micro L4 Pathological Diagnosis Skin, right lower [...] cm from the 6?9?12:00 margin. -------- Specimen: [id number] Received: 08/09/24 Status: DEONDRE Watts Num: [id number] Spec Type: Surgical Subm Dr: Colin Thompson MD Tissues: A Skin-Other than Cyst, tag, debridement or plastic repair (R LOWER LEG) Procedures: Lizett HERNANDEZ/Micro L4 -------- Patient: Epifanio Alvarez [id number] (Continued) -------- Specimen: Received: 08/09/24 (Continued) Gross Description (Continued) Signed (signature on file) Sohail Urbina MD 08/10/24 1527 -------- Specimen: Received: 08/09/24 Status: DEONDRE Watts Num: [id number] Spec Type: Surgical Subm Dr: Colin Thompson MD Tissues: A Skin-Other than Cyst, tag, debridement or plastic repair (R LOWER LEG) Procedures: HE/8, Gross/Micro L4 -------- Patient: Epifanio Alvarez [id number] (Continued) -------- Specimen: [id number] Received: 08/09/24 (Continued) Gross Description (Continued) The specimen is inked as follows: 12?3:00-Yellow 3?6:00-Green 6?9:00-[place] 9?12:00-[place]-Black Serial sections reveal yellow-leonardo, glistening [...] serially sectioned 6:00 polar end (8, ns, [id number] A) Microscopic Description Microscopic examination is performed CPT Codes 23115 -------- -------- Specimen: [id number] Re (more content not included)... Normal [facility] No Panel InformationOrdered By: Colin Thompson on 08-09-2024 Bedside Glucose Comment Glu2: cleaned meter [facility] No Panel Informationon 07-26 Lesion length (cm): [...] details: Amount of lidocaine used: 2.0 ml [facility] No Panel Informationon 07-14 Type of biopsy: [...] taken Amount of lidocaine used: 1.0 cc [employer] [facility] Type of biopsy: tangential Informed consent: discussed [...] taken Amount of lidocaine used: 2.0 cc [employer] Type of biopsy: tangential Informed consent: discussed [...] taken Amount of lidocaine used: 1.0 cc [facility] CMP (CMP) (FOR REMOTE C USE)on 07-06-2024 Albumin [Mass/Vol] 3.6 g/dL 3.4 - 5.0 g/dL [facility] ALBUMIN GLOBULIN RATIO 1.2 [facility] ALP [Catalytic activity/Vol] 48 U/L 46 - 116 U/L [facility] ALT [Catalytic activity/Vol] 16 U/L 16 - 63 U/L [facility] Anion gap [Moles/Vol] 11 mmol/L [facility] AST [Catalytic activity/Vol] 19 U/L 15 - 37 U/L [facility] Bilirubin [Mass/Vol] 0.6 mg/dL 0.2 - 1 .0 mg/dL [facility] Calcium [Mass/Vol] 8.8 mg/dL 8.5 - 10. 1 mg/dL [facility] Chloride [Moles/Vol] 106 mmol/L 98 - 10 7 mmol/L [facility] CO2 [Moles/Vol] 30 mmol/L 21.0 - 32.0 mmol/L [facility] Creatinine [Mass/Vol] 1.27 mg/dL 0.70 - 1.30 mg/dL [facility] GFR/1.73 sq M.predicted CKD-EPI (S/P/Bld) [Vol rate/Area] >60 >=60 mL/min/1.73m 2 [facility] Globulin (S) [Mass/Vol] 3.1 g/dL [facility] Glucose [Mass/Vol] 167 mg/dL High 74 - 106 mg/dL [facility] Interpretation and review of laboratory results Abnormal [facility] Potassium [Moles/Vol] 4 mmol/L 3.5 - 5.1 mmol/L [facility] Protein [Mass/Vol] 6.7 g/dL 6.4 - 8.2 g/dL [facility] Sodium [Moles/Vol] 143 mmol/L 136 - 145 mmol/L [facility] TBH EGFR-NON AF [place] 54 Low >=60 mL/min/1.73m 2 [facility] Urea nitrogen [Mass/Vol] 24 mg/dL High 7.0 - 18.0 mg/dL [facility] Urea nitrogen/Creatinine [Mass ratio] 18.9 mg/mg [facility] No Panel Informationon 06-30 Complexity: Intermediate Final [...] uncontrollable bleeding, or complications. Dressing type: bandage [facility] Lesion length (cm): 1.2 Lesion width (cm): [...] 9.0 ml Estimated blood loss: <1.0 ml [facility] HbA1c (Bld) [Mass fraction]o n 05-10-2024 [facility] Laboratory - Hematology and Cell countson 05-10-2024 HbA1c (Bld) [Mass fraction] 7.6 % [facility] ALL CBC WITH AUTO DIFFon BASOPHILS ABSOLUTE AUTO 0.1 N [facility] Basophils/100 WBC (Bld) 1.2 % 0.2 - 2.0 % [facility] Eosinophils/100 WBC (Bld) 4.3 % 0.9 - 7.0 % [facility] Erythrocyte distribution width (RBC) [Ratio] 13 % 11.0 - 15.0 % [facility] Hematocrit (Bld) [Volume fraction] 38.4 % Low 42.0 - 54.0 % [facility] Hemoglobin (Bld) [Mass/Vol] 12.4 g/dL Low 14.0 - 18.0 g/dL [facility] IMMATURE GRANULOCYTES ABS AUTO 0.03 [facility] Immature granulocytes/100 WBC (Bld) 0.5 % 0.0 - 0.5 % [facility] Interpretation and review of laboratory results Abnormal [facility] LYMPHOCYTES ABSOLUTE AUTO 2.1 [facility] Lymphocytes/100 WBC (Bld) 32.7 % 20.5 - 60.0 % [facility] MCH (RBC) [Entitic mass] 30.1 pg 25.9 - 34.0 pg [facility] MCHC (RBC) [Mass/Vol] 32.3 g/dL 29.9 - 35.2 g/dL [facility] MCV (RBC) [Entitic vol] 93.2 fL 80.0 - 94.0 fL [facility] MONOCYTES ABSOLUTE AUTO 0.5 N [facility] Monocytes/100 WBC (Bld) 7 % 1.7 - 12.0 % [facility] NEUTROPHILS ABSOLUTE AUTO 3.5 [facility] Neutrophils/100 WBC (Bld) 54.3 % 43.0 - 75.0 % [facility] Platelet mean volume (Bld) [Entitic vol] 10.4 fL 9.5 - 13.5 fL [facility] EO # 0.3 [facility] PLT 172 [facility] RBC 4.12 Low [facility] WBC 6.5 [facility] ALL CBC WITH AUTO DIFFon BASOPHILS ABSOLUTE AUTO 0.1 N [facility] Basophils/100 WBC (Bld) 1.2 % 0.2 - 2.0 % [facility] Eosinophils/100 WBC (Bld) 5.3 % 0.9 - 7.0 % [facility] Erythrocyte distribution width (RBC) [Ratio] 13.1 % 11.0 - 15.0 % [facility] Hematocrit (Bld) [Volume fraction] 38.3 % Low 42.0 - 54.0 % [facility] Hemoglobin (Bld) [Mass/Vol] 12.6 g/dL Low 14.0 - 18.0 g/dL [facility] IMMATURE GRANULOCYTES ABS AUTO 0.04 High [facility] Immature granulocytes/100 WBC (Bld) 0.5 % 0.0 - 0.5 % [facility] Interpretation and review of laboratory results Abnormal [facility] LYMPHOCYTES ABSOLUTE AUTO 2.2 [facility] Lymphocytes/100 WBC (Bld) 27.3 % 20.5 - 60.0 % [facility] MCH (RBC) [Entitic mass] 30.7 pg 25.9 - 34.0 pg [facility] MCHC (RBC) [Mass/Vol] 32.9 g/dL 29.9 - 35.2 g/dL [facility] MCV (RBC) [Entitic vol] 93.2 fL 80.0 - 94.0 fL [facility] MONOCYTES ABSOLUTE AUTO 0.6 N [facility] Monocytes/100 WBC (Bld) 7.3 % 1.7 - 12.0 % [facility] NEUTROPHILS ABSOLUTE AUTO 4.8 [facility] Neutrophils/100 WBC (Bld) 58.4 % 43.0 - 75.0 % [facility] Platelet mean volume (Bld) [Entitic vol] 10.6 fL 9.5 - 13.5 fL [facility] EO # 0.4 [facility] PLT 193 [facility] RBC 4.11 Low [facility] WBC 8.1 [facility] TRANSTHORACIC ECHO (TTE) COM PLETEon 02-21-2024 TRANSTHORACIC ECHO (TTE) COMPLETE [facility] [address] [place] [address], [address], [place] [address] TRANSTHORACIC ECHOCARDIOGRAM REPORT Patient Name: EPIFANIO ALVAREZ Reading Physician: [id number] Marina Goldsmith MD Study Date: 02/21/2024 Ordering Provider: [id number] MISSY KHOURY MRN/PID: [id number] Fellow: Nurse: Date of /Age: 1 1940 / 83 years Sales And Marketing Administrator: Jyoti Gutiérrez RDCS, RVT Gender: M Additional Staff: Height: 180.34 cm Admit Date: Weight: 77.11 kg Admission Status: BSA / BMI: 1.97 m2 / 23.71 kg/m2 Department Location: [facility] Blood Pressure: 142 /84 mmHg Study Type: TRANSTHORACIC ECHO (TTE) COMPLETE Diagnosis/ICD: 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; Paroxysmal atrial fibrillation-I48.0 Indication: Diabetes, HTN, Hyperlipidemia, Murmur, Former Smoker, Prostate Cancer with Metastases, CKD-Stage III CPT Codes: Echo Complete w Full Doppler-[id number] Study Detail: The following Echo studies were [...] mmHg PIEDV: 2.08 m/s PADP: 20.3 mmHg [id number] Marina Goldsmith MD Electronically signed on 02/21/2024 at 2:06:09 PM Final Normal [facility] US Heart TransthoracicOrdere d By: Marina Goldsmith on 02-21-2024 Aortic Valve Area by Continuity of Peak Velocity 4.33 cm2 [facility] Work Phone: Aortic Valve Area by Continuity of VTI 3.61 cm2 [facility] Work Phone: AV mn grad 2.0 mmHg [facility] Work Phone: AV pk grad 4.8 mmHg [facility] Work Phone: AV pk farheen 1.10 m/s [facility] Work Phone: LV A4C EF 68.1 [facility] Work Phone: LV EF 60 % [facility] Work Phone: LVIDd 4.95 cm [facility] Work Phone: LVOT diam 2.60 cm [facility] Work Phone: MV avg E/e' ratio 6.90 [facility] [facility] Work Phone: MV E/A ratio 0.58 [facility] Work Phone: RVSP 29.4 mmHg [facility] Work Phone: [facility] Work Phone: Heart [employer] [address], [place] [address] TRANSTHORACIC ECHOCARDIOGRAM REPORT Patient Name: EPIFANIO Kim Physician: [id number] Marina Goldsmith MD Study Date: 02/21/2024 Ordering Provider: [id number] MISSY KHOURY MRN/PID: [id number] Fellow: Nurse: Date of /Age: 1 1940 / 83 years Sales And Marketing Administrator: Jyoti Gutiérrez RDCS, RVT Gender: M Additional Staff: Height: 180.34 cm Admit Date: Weight: 77.11 kg Admission Status: BSA / BMI: 1.97 m2 / 23.71 kg/m2 Department Location: [facility] Blood Pressure: 142 /84 mmHg Study Type: TRANSTHORACIC ECHO (TTE) COMPLETE Diagnosis/ICD: 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; Paroxysmal atrial fibrillation-I48.0 Indication: Diabetes, HTN, Hyperlipidemia, Murmur, Former Smoker, Prostate Cancer with Metastases, CKD-Stage III CPT Codes: Echo Complete w Full Doppler-18303 Study Detail: The following Echo studies were [...] 17.00 c (more content not included)... Marina hSaffer MD - 02/21/[address], [address], [place] [address] TRANSTHORACIC ECHOCARDIOGRAM REPORT Patient Name: EPIFANIO Kim Physician: [id number] Marina Goldsmith MD Study Date: 02/21/2024 Ordering Provider: [id number] MISSY KHOURY MRN/PID: [id number] Fellow: Nurse: Date of /Age: 1 1940 / 83 years Sales And Marketing Administrator: Jyoti Gutiérrez RDCS, RVT Gender: M Additional Staff: Height: 180.34 cm Admit Date: Weight: 77.11 kg Admission Status: BSA / BMI: 1.97 m2 / 23.71 kg/m2 Department Location: [facility] Blood Pressure: 142 /84 mmHg Study Type: TRANSTHORACIC ECHO (TTE) COMPLETE Diagnosis/ICD: 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; Paroxysmal atrial fibrillation-I48.0 Indication: Diabetes, HTN, Hyperlipidemia, Murmur, Former Smoker, Prostate Cancer with Metastases, CKD-Stage III CPT Codes: Echo Complete w Full Doppler-[id number] Study Detail: The following Echo studies were [...] mmHg PIEDV: 2.08 m/s PADP: 20.3 mmHg [id number] Marina Goldsmith MD Electronically signed on 02/21/2024 at 2:06:09 PM Final [facility] Work Phone: NM Heart Perfusion W stress [...] Clarissa Sanchez 02/07/2024 4:47 PM Dictation workstation: [id number] Interpreted By: Clarissa Sanchez, Lora Elaine STUDY: MYOCARDIAL PERFUSION STRESS TEST WITH EXERCISE Performing facility: [facility], [address] [place] [address], [address], [place] [address] [facility] Provider: Missy Khoury MD, FACC PCP: Dr. Trang Bello Supervising provider: Marina Goldsmith MD INDICATION: Abnormal EKG; PVC Murmur HISTORY: Gender: M; Age: 83 y/o ; Height: HT 180.3 cm cm; Weight: WT 77.111 kg kg. Abnormal EKG; High Cholesterol; Diabetes; HTN; Arrhythmias; A-fib Quit smoking 34 years ago. COMPARISON: Previous nuclear testing completed [id number] at [facility]. ACCESSION NUMBER(S): [id number] ORDERING CLINICIAN: MISSY KHOURY TECHNIQUE: ONE DAY [...] PERFUSION STRESS TEST WITH EXERCISE Performing facility: [facility], [address] [place] [address], [address], [address] Provider: Missy Khoury MD, [facility] PCP: Dr. Trang Bello Supervising provider: Marina Goldsmith MD INDICATION: Abnormal EKG; PVC Murmur HISTORY: Gender: M; Age: 83 y/o ; Height: HT 180.3 cm cm; Weight: WT 77.111 kg kg. Abnormal EKG; High Cholesterol; Diabetes; HTN; Arrhythmias; A-fib Quit smoking 34 years ago. COMPARISON: Previous nuclear testing completed at [facility]. ACCESSION NUMBER(S): [id number] ORDERING CLINICIAN: MISSY KHOURY TECHNIQUE: ONE DAY [...] Clarissa Sanchez 02/07/2024 4:47 PM Dictation workstation: [id number] [facility] Work Phone: Radiology Study observation (narrative) [facility] Work Phone: NM Heart Perfusion W stress and W radionuclide IVOrdered By: Clarissa Sanchez on 02-07-2024 [facility] Work Phone: NUCLEAR STRESS TESTon 2023 NUCLEAR STRESS TEST Interpreted By: Clarissa Sanchez, and Miller Elaine STUDY: MYOCARDIAL PERFUSION STRESS TEST WITH EXERCISE Performing facility: [facility], [address] [facility], [address], [place] [address] [facility] Provider: Missy Khoury MD, [facility] PCP: Dr. Trang Bello Supervising provider: Marina Goldsmith MD INDICATION: Abnormal EKG; PVC Murmur HISTORY: Gender: M; Age: 83 y/o ; Height: HT 180.3 cm cm; Weight: WT 77.111 kg kg. Abnormal EKG; High Cholesterol; Diabetes; HTN; Arrhythmias; A-fib Quit smoking 34 years ago. COMPARISON: Previous nuclear testing completed [id number] at [facility]. ACCESSION NUMBER(S): [id number] ORDERING CLINICIAN: MISSY KHOURY TECHNIQUE: ONE DAY [...] Clarissa Sanchez 02/07/2024 4:47 PM Dictation workstation: [id number] [facility] Comment on above: Order Comment: Start with exercise, may switch to alfonso ALL BASIC METABOLIC PANELon 02-03-2024 Anion gap [Moles/Vol] 11.7 mmol/L [facility] Calcium [Mass/Vol] 8.3 mg/dL Low 8.5 - 10. 1 mg/dL [facility] Chloride [Moles/Vol] 107 mmol/L 98 - 10 7 mmol/L [facility] CO2 [Moles/Vol] 28.3 mmol/L 21.0 - 32.0 mmol/L [facility] Creatinine [Mass/Vol] 1.11 mg/dL 0.70 - 1.30 mg/dL [facility] GFR/1.73 sq M.predicted CKD-EPI (S/P/Bld) [Vol rate/Area] >60 60 - PINF [facility] Glucose [Mass/Vol] 164 mg/dL High 74 - 106 mg/dL [facility] Interpretation and review of laboratory results Abnormal [facility] Potassium [Moles/Vol] 4.0 mmol/L 3.5 - 5.1 mmol/L [facility] Sodium [Moles/Vol] 143 mmol/L 136 - 145 mmol/L [facility] TBH EGFR-NON AF [place] >60 60 - PINF [facility] Urea nitrogen [Mass/Vol] 16.0 mg/dL 7.0 - 18.0 mg/dL [facility] Urea nitrogen/Creatinine [Mass ratio] 14.4 mg/mg [facility] PET psma initial tx sb-mton 09-13-2023 PET psma initial tx sb-mt [facility] [place] [address] Nuclear Medicine Report Signed Patient: Epifanio Alvarez MR#: [id number] 906 : 1940 Acct:[id number] Age/Sex: 83 / M ADM Date: 09/13/23 Loc: PE Room: Type: [facility] Attending Dr: NON STAFF Copies to: NON [...] Jordan Story M.D.09/13/2023 3:20 PM Dictation Location: [place] [address] Transcribed By: [facility] 09/13/23 1520 Dictated By: Jordan Story II, MD 09/13/23 1515 Signed By: 09/13/23 1520 Normal [facility] ECG 12 Leadon 07-13-2023 Sinus rhythm with frequent PVCs Otherwise normal EKG QTc 444 ms [facility] Work Phone: C reactive protein [Mass/vol ume] in Serum or PlasmaOrdered By: Jj Garcia on 11-26-2022 CRP [Mass/Vol] < 0.5 mg/dL 0.0-0.5 [facility] Creatinine [Mass/volume] in Serum or PlasmaOrdered By: Nirav Bello on 11-26-2022 Creatinine [Mass/Vol] 1.55 mg/dL 0.70-1.30 [facility] Erythrocyte sedimentation ra te by Photometric methodOrdered By: Jj Garcia on 11-26-2022 ESR Photometric method (Bld) [Velocity] 18 mm/hr 0- [facility] No Panel InformationOrdered By: Nirav Bello on 11-26-2022 Estimated GFR (CKD-EPI) 43.863 mL/Min [facility] Creatinine Clearance (Chem N/A [facility] Thyrotropin [Units/volume] i n Serum or PlasmaOrdered By: Jj Garcia on 11-26-2022 TSH Qn 1.23 m[IU]/L 0.45-5.33 [facility] Urea nitrogen [Mass/volume] in Serum or PlasmaOrdered By: Nirav Bello on 11-26-2022 Urea nitrogen [Mass/Vol] 31 mg/dL 7 [facility] PANCREATIC ELASTASE FECALon 09-08-2022 Pancreatic Elastase, Fecal 86 ug Elast./g Critically low >200 [facility] Comment on above: Result Comment: Re sults verified by repeat testing Severe Pancreatic Insufficiency: <100 Moderate Pancreatic Insufficiency: 100 - 200 Normal: >200 Performed By: #### L IPID, TSH, CMP #### [facility] [address] [place] [address] Dr. Leesa Urbina CELIAC ANTIBODIES PROFILEon 09-04-2022 Deamidated Gliadin Abs, IgA 8 units Normal 0- [facility] Comment on above: Result Comment: Nega tive 0 - 19 Weak Positive 20 - 30 Moderate to Strong Positive >30 Performed By: #### C ELIACP #### [facility] [address] [place] [address] [address] Leesa Urbina Deamidated Gliadin Abs, IgG 4 units Normal 0-19 [facility] Comment on above: Result Comment: Nega tive 0 - 19 Weak Positive 20 - 30 Moderate to Strong Positive >30 Performed By: #### C ELIACP #### [facility] [address] [place] [address] [address] Leesa Urbina Endomysial Antibody IgA Negative Normal Negative T [facility] Comment on above: Performed By: #### C ELIACP #### [facility] [address] [address] [address] Leesa Urbina Immunoglobulin A, Qn, Serum 143 mg/dL Normal 61-437 [facility] Comment on above: Performed By: #### C ELIACP #### [facility] [address] [place] [address] [address] Leesa Urbina t-Transglutaminase (tTG) IgA <2 Normal 0-3 [facility] Comment on above: Result Comment: Nega tive 0 - 3 Weak Positive 4 - 10 Positive >10 . Tissue Transglutaminase (tTG) has been identified as the endomysial antigen. Studies have demonstr- ated that endomysial IgA antibodies have over 99% specificity for gluten sensitive enteropathy. Performed By: #### C ELIACP #### [facility] [address] [place] [address] Dr. Leesa Urbina t-Transglutaminase (tTG) IgG 6 U/mL Critically high 0-5 [facility] Comment on above: Result Comment: Nega tive 0 - 5 Weak Positive 6 - 9 Positive >9 Performed By: #### C ELIACP #### [facility] [address] [place] [address] Dr. Leesa Urbina CBC AUTO DIFFon 09-03-2022 BASO # 0.1 103/ul Normal 0.0-0.1 [facility] Comment on above: Performed By: #### L IPID, TSH, CMP #### [facility] [address] [place] [address] Dr. Leesa Urbina Basophils/100 WBC (Bld) 1.1 % Normal 0.2-2.[address] [facility] Comment on above: Performed By: #### L IPID, TSH, CMP #### [facility] [address] [place] [address] Dr. Leesa Urbina EO # 0.6 103/ul Normal 0.0-0.7 [facility] Comment on above: Performed By: #### L IPID, TSH, CMP #### [facility] [address] [place] [address] Dr. Leesa Urbina Eosinophils/100 WBC (Bld) 7.9 % Critically high 0.9-7.0 [facility] Comment on above: Performed By: #### L IPID, TSH, CMP #### [facility] [address] [place] [address] Dr. Leesa Urbina Erythrocyte distribution width (RBC) [Ratio] 13.6 % Normal 11.0-15.0 [facility] Comment on above: Performed By: #### L IPID, TSH, CMP #### [facility] [address] [place] [address] Dr. Leesa Urbina Hematocrit (Bld) [Volume fraction] 34.4 % Critically low 42.0-54.0 [facility] Comment on above: Performed By: #### L IPID, TSH, CMP #### [facility] [address] [place] [address] Dr. Leesa Urbina Hemoglobin (Bld) [Mass/Vol] 11.4 g/dL Critically low 14.0-18.0 [facility] Comment on above: Performed By: #### L IPID, TSH, CMP #### [facility] [address] [place] [address] Dr. Leesa Urbina IG # 0.02 10e3/ul Normal 0.00-0.03 [facility] Comment on above: Performed By: #### L IPID, TSH, CMP #### [facility] [address] [place] [address] Dr. Leesa Urbina IG % 0.3 % Normal 0.0-0.5 [facility] Comment on above: Performed By: #### L IPID, TSH, CMP #### [facility] [address] [place] [address] Dr. Leesa Urbina LYMPH # 2.1 103/ul Normal 1.2-3.8 [facility] Comment on above: Performed By: #### L IPID, TSH, CMP #### [facility] [address] [place] [address] Dr. Leesa Urbina Lymphocytes/100 WBC (Bld) 28.1 % Normal 20.5-60.0 [facility] Comment on above: Performed By: #### L IPID, TSH, CMP #### [facility] [address] [place] [address] Dr. Leesa Urbina MANUAL DIFF REQ NO Normal [facility] Comment on above: Performed By: #### L IPID, TSH, CMP #### [facility] [address] [place] [address] Dr. Leesa Urbina MCH (RBC) [Entitic mass] 31.1 pg Normal 25.9-34.0 [facility] Comment on above: Performed By: #### L IPID, TSH, CMP #### [facility] [address] [place] [address] Dr. Leesa Urbina MCHC (RBC) [Mass/Vol] 33.1 g/dL Normal 29.9-35.2 [facility] Comment on above: Performed By: #### L IPID, TSH, CMP #### [facility] [address] [place] [address] Dr. Leesa Urbina MCV (RBC) [Entitic vol] 93.7 fL Normal 80.0-94.[address] [facility] Comment on above: Performed By: #### L IPID, TSH, CMP #### [facility] [address] [place] [address] Dr. Leesa Urbina MONO # 0.4 103/ul Normal 0.3-0.8 [facility] Comment on above: Performed By: #### L IPID, TSH, CMP #### [facility] [address] [place] [address] Dr. Leesa Urbina Monocytes/100 WBC (Bld) 6.0 % Normal 1.7-12.[address] [facility] Comment on above: Performed By: #### L IPID, TSH, CMP #### [facility] [address] [place] [address] Dr. Leesa Urbina NEUT # 4.2 103/ul Normal 1.4-6.5 [facility] Comment on above: Performed By: #### L IPID, TSH, CMP #### [facility] [address] [address] [address] Leesa Urbina Neutrophils/100 WBC (Bld) 56.6 % Normal 43.0-75.0 [facility] Comment on above: Performed By: #### L IPID, TSH, CMP #### [facility] [address] [place] [address] Dr. Leesa Urbina Platelet mean volume (Bld) [Entitic vol] 10.1 fL Normal 9.5-13.5 [facility] Comment on above: Performed By: #### L IPID, TSH, CMP #### [facility] [address] [address] [address] Leesa Urbina PLT 195 103/ul Normal 150-450 [facility] Comment on above: Performed By: #### L IPID, TSH, CMP #### [facility] [address] [place] [address] Dr. Leesa Urbina RBC 3.67 106/ul Critically low 4.70-6.10 [facility] Comment on above: Performed By: #### L IPID, TSH, CMP #### [facility] [address] [place] [address] Dr. Leesa Urbina WBC 7.3 103/ul Normal 4.0-11.0 [facility] Comment on above: Performed By: #### L IPID, TSH, CMP #### [facility] [address] [place] [address] Dr. Leesa Urbina FERRITINon 09-03-2022 Ferritin [Mass/Vol] 44.0 ng/mL Normal 26.0-388.0 [facility] Comment on above: Performed By: #### F ERR, FETIBC #### [facility] [address] [place] [address] Dr. Leesa Urbina IRON AND TIBCon 09-03-2022 % SATURATION 23.5 % Normal [facility] Comment on above: Performed By: #### F ERR, FETIBC #### [facility] [address] [place] [address] Dr. Leesa Urbina Iron [Mass/Vol] 69.0 ug/dL Normal 65.0-175.0 [facility] Comment on above: Performed By: #### F ERR, FETIBC #### [facility] [address] [place], [place] [address] Dr. Leesa Urbina TIBC DIRECT 294.0 ug/dL Normal 250.0-450.0 [facility] Comment on above: Performed By: #### F ERR, FETIBC #### [facility] [address] [place], [place] [address] Dr. Leesa Urbina Office Visit (Cardiology)on 07-14-2022 Follow-up visit Diagnoses/Problems Assessed Anticoagulated (V58.61) (Z79.01) Benign essential hypertension (401.1) (I10) Hyperlipidemia (272.4) (E78.5) Paroxysmal atrial fibrillation (427.31) (I48.0) Diabetes mellitus (250.00) (E11.9) Body mass index (BMI) of 24.0 to 24.9 in adult (V85.1) (Z68.24) Never a smoker Orders SocHx: Never a smoker Tobacco Use Screening; Status:Complete; Done: [id number] Patient Instructions Please bring all medicines, vitamins, and herbal supplements with you when you come to the office. Prescriptions will not be filled unless you are compliant with your follow up appointments or have a follow up appointment scheduled as per instruction of your physician. Refills should be requested at the time of your visit. Follow up in 1 year. Chief Complaint EPIFANIO ALVAREZ is being seen for an annual follow-up [...] negative for complaint. Vitals Vital Signs Recorded: [id number] 09:08AM Heart Rate68, L Radial Hhrshrgx783, LUE, Sitting Lynekbdcq63, LUE, Sitting Height5 ft 11 in Gxxbkt637 lb BMI Hevodsfayc85.13 kg/m2 BSA Calculated1.98 Tobacco Useb) No PHQ-2 [...] Screening.on 023 Adult depression screening assessment No [facility] [employer] y 250 DO Work Phone: Fall risk assessment a) No falls within the last year [facility] [employer] 250 DO Work Phone: Tobacco use status CPHS b) No M [facility] [employer] y 250 DO Work Phone: CBC AUTO DIFFon 05-06-2022 BASO # 0.1 103/ul Normal 0.0-0.1 [facility] Comment on above: Performed By: #### C BC #### [facility] [address] [place] [address] Dr. Leesa Urbina Basophils/100 WBC (Bld) 1.4 % Normal 0.2-2.[address] [facility] Comment on above: Performed By: #### C BC #### [facility] [address] [place] [address] Dr. Leesa Urbina EO # 0.4 103/ul Normal 0.0-0.7 [facility] Comment on above: Performed By: #### C BC #### [facility] [address] [place] [address] Dr. Leesa Urbina Eosinophils/100 WBC (Bld) 5.4 % Normal 0.9-7.0 [facility] Comment on above: Performed By: #### C BC #### [facility] [address] [place] [address] Dr. Leesa Urbina Erythrocyte distribution width (RBC) [Ratio] 13.3 % Normal 11.0-15.0 [facility] Comment on above: Performed By: #### C BC #### [facility] [address] [place] [address] Dr. Leesa Urbina Hematocrit (Bld) [Volume fraction] 35.8 % Critically low 42.0-54.0 [facility] Comment on above: Performed By: #### C BC #### [facility] [address] [place] [address] Dr. Leesa Urbina Hemoglobin (Bld) [Mass/Vol] 12.0 g/dL Critically low 14.0-18.0 [facility] Comment on above: Performed By: #### C BC #### [facility] [address] [place] [address] Dr. Leesa Urbina IG # 0.01 10e3/ul Normal 0.00-0.03 [facility] Comment on above: Performed By: #### C BC #### [facility] [address] [place] [address] Dr. Leesa Urbina IG % 0.2 % Normal 0.0-0.5 [facility] Comment on above: Performed By: #### C BC #### [facility] [address] [place] [address] Dr. Leesa Urbina LYMPH # 1.7 103/ul Normal 1.2-3.8 [facility] Comment on above: Performed By: #### C BC #### [facility] [address] [place] [address] Dr. Leesa rUbina Lymphocytes/100 WBC (Bld) 26.1 % Normal 20.5-60.0 [facility] Comment on above: Performed By: #### C BC #### [facility] [address] [place] [address] Dr. Leesa Urbnia MANUAL DIFF REQ NO Normal [facility] Comment on above: Performed By: #### C BC #### [facility] [address] [place] [address] Dr. Leesa Urbina MCH (RBC) [Entitic mass] 31.0 pg Normal 25.9-34.0 [facility] Comment on above: Performed By: #### C BC #### [facility] [address] [place] [address] Dr. Leesa Urbina MCHC (RBC) [Mass/Vol] 33.5 g/dL Normal 29.9-35.2 [facility] Comment on above: Performed By: #### C BC #### [facility] [address] [place] [address] Dr. Leesa Urbina MCV (RBC) [Entitic vol] 92.5 fL Normal 80.0-94.[address] [facility] Comment on above: Performed By: #### C BC #### [facility] [address] [place] [address] Dr. Leesa Urbina MONO # 0.4 103/ul Normal 0.3-0.8 [facility] Comment on above: Performed By: #### C BC #### [facility] [address] [place] [address] Dr. Leesa Urbina Monocytes/100 WBC (Bld) 6.5 % Normal 1.7-12.[address] [facility] Comment on above: Performed By: #### C BC #### [facility] [address] [place] [address] Dr. Leesa Urbina NEUT # 4.0 103/ul Normal 1.4-6.5 [facility] Comment on above: Performed By: #### C BC #### [facility] [address] [place] [address] Dr. Leesa Urbina Neutrophils/100 WBC (Bld) 60.4 % Normal 43.0-75.0 [facility] Comment on above: Performed By: #### C BC #### [facility] [address] [place] [address] Dr. Leesa Urbina Platelet mean volume (Bld) [Entitic vol] 10.6 fL Normal 9.5-13.5 [facility] Comment on above: Performed By: #### C BC #### [facility] [address] [place] [address] [address] Leesa Urbina PLT 185 103/ul Normal 150-450 [facility] Comment on above: Performed By: #### C BC #### [facility] [address] [place] [address] [address] Leesa Urbina RBC 3.87 106/ul Critically low 4.70-6.10 [facility] Comment on above: Performed By: #### C BC #### [facility] [address] [place] [address] [address] Leesa Urbina WBC 6.6 103/ul Normal 4.0-11.0 [facility] Comment on above: Performed By: #### C BC #### [facility] [address] [place] [address] Dr. Leesa Urbina GLYCOHEMOGLOBIN A1Con 2021 ADA RECOMMENDATION SEE BELOW Normal [facility] Comment on above: Result Comment: ADA RECOMMENDED LIMIT 4.0 - 6.0 ADA THERAPEUTIC TARGET < 7.0 ACTION SUGGESTED > 7.0 Performed By: #### A 1C #### [facility] [address] [place] [address] Dr. Leesa Urbina Glucose [Mass/Vol] 151 mg/dL Normal [facility] Comment on above: Performed By: #### A 1C #### [facility] [address] [place] [address] Dr. Leesa Urbina HbA1c (Bld) [Mass fraction] 6.9 % Critically high 4.5-6.2 [facility] Comment on above: Performed By: #### A 1C #### [facility] [address] [place] [address] Dr. Leesa Urbina LIPID PROFILEon 05-06-2022 CHOL-HDL RATIO NORM SEE BELOW Normal [facility] Comment on above: Result Comment: 3.3 - 4.4 LOW RISK 4.4 - 7.1 AVERAGE RISK 7.1 - 11.0 MODERATE RISK >11.0 HIGH RISK Performed By: #### L IPID, TSH, CMP #### [facility] [address] [place] [address] Dr. Leesa Urbina Cholesterol [Mass/Vol] 136 mg/dL Normal <=200 Th [facility] Comment on above: Performed By: #### L IPID, TSH, CMP #### [facility] [address] [address] [address] Leesa Urbina Cholesterol in HDL [Mass/Vol] 62 mg/dL Critically high 40-60 [facility] Comment on above: Performed By: #### L IPID, TSH, CMP #### [facility] [address] [address] [address] Leesa Urbina Cholesterol in LDL [Mass/Vol] 53.0 mg/dL Normal [facility] Comment on above: Performed By: #### L IPID, TSH, CMP #### [facility] [address] [address] [address] Leesa Urbina Cholesterol.total/Kandy sterol in HDL [Mass ratio] 2.2 {ratio} Normal [facility] Comment on above: Performed By: #### L IPID, TSH, CMP #### [facility] [address] [address] [address] Leesa Urbina HDL NORMAL > or = 60 mg/dl - LO W CARDIOVASCULAR RISK <40 mg/dl - HIGH CARDIOVASCULAR RISK Normal [facility] Comment on above: Performed By: #### L IPID, TSH, CMP #### [facility] [address] [address] [address] Leesa Urbina LDL CALC NORMAL SEE BELOW Normal [facility] Comment on above: Result Comment: <100 mg/dl OPTIMAL 100 - 129 mg/dl NEAR OR ABOVE OPTIMAL 130 - 159 mg/dl BORDERLINE HIGH 160 - 189 mg/dl HIGH >190 mg/dl VERY HIGH Performed By: #### L IPID, TSH, CMP #### [facility] [address] [address] [address] Leesa Urbina Triglyceride [Mass/Vol] 105 mg/dL Normal <=150 T [facility] Comment on above: Performed By: #### L IPID, TSH, CMP #### [facility] [address] [address] [address] Leesa Urbina VLDL CALC 21.0 mg/dL Normal [facility] Comment on above: Performed By: #### L IPID, TSH, CMP #### [facility] [address] [address] [address] Leesa Urbina PROF 14(COMP METB)on 022 Albumin [Mass/Vol] 3.4 g/dL Normal 3.4-5.0 [facility] Comment on above: Performed By: #### L IPID, TSH, CMP #### [facility] [address] [address] [address] Leesa Urbina Albumin/Globulin [Mass ratio] 1.1 {ratio} Normal [facility] Comment on above: Performed By: #### L IPID, TSH, CMP #### [facility] [address] [place] [address] Dr. Leesa Urbina ALP [Catalytic activity/Vol] 77 U/L Normal 46-116 [facility] Comment on above: Performed By: #### L IPID, TSH, CMP #### [facility] [address] [address] [address] Leesa Urbina ALT [Catalytic activity/Vol] 12 U/L Critically low 16-63 [facility] Comment on above: Performed By: #### L IPID, TSH, CMP #### [facility] [address] [place] [address] Dr. Leesa Urbina Anion gap [Moles/Vol] 12.7 mmol/L Normal [facility] Comment on above: Performed By: #### L IPID, TSH, CMP #### [facility] [address] [place] [address] Dr. Leesa Urbina AST [Catalytic activity/Vol] 19 U/L Normal 15-37 [facility] Comment on above: Performed By: #### L IPID, TSH, CMP #### [facility] [address] [place] [address] Dr. Leesa Urbina Bilirubin [Mass/Vol] 0.4 mg/dL Normal 0.2-1.0 [facility] Comment on above: Performed By: #### L IPID, TSH, CMP #### [facility] [address] [address] [address] Leesa Urbina Calcium [Mass/Vol] 8.5 mg/dL Normal 8.5-10.1 [facility] Comment on above: Performed By: #### L IPID, TSH, CMP #### [facility] [address] [place] [address] Dr. Leesa Urbina Chloride [Moles/Vol] 107 mmol/L Normal 98-107 [facility] Comment on above: Performed By: #### L IPID, TSH, CMP #### [facility] [address] [place] [address] Dr. Leesa Urbina CO2 [Moles/Vol] 27.4 mmol/L Normal 21.0-32.0 [facility] Comment on above: Performed By: #### L IPID, TSH, CMP #### [facility] [address] [place] [address] Dr. Leesa Urbnia Creatinine [Mass/Vol] 1.06 mg/dL Normal 0.70-1.30 [facility] Comment on above: Performed By: #### L IPID, TSH, CMP #### [facility] [address] [place] [address] Dr. Leesa Urbina EGFR-AF GREENLANDIC >60 Normal >=60 [facility] Comment on above: Performed By: #### L IPID, TSH, CMP #### [facility] [address] [place] [address] Dr. Leesa Urbina EGFR-NON AF GREENLANDIC >60 Normal >=60 [facility] Comment on above: Performed By: #### L IPID, TSH, CMP #### [facility] [address] [place] [address] Dr. Leesa Urbina Globulin (S) [Mass/Vol] 3.1 g/dL Normal [facility] Comment on above: Performed By: #### L IPID, TSH, CMP #### [facility] [address] [place] [address] Dr. Leesa Urbina Glucose [Mass/Vol] 171 mg/dL Critically high 74-[address] [facility] Comment on above: Performed By: #### L IPID, TSH, CMP #### [facility] [address] [address] [address] Leesa Urbina Potassium [Moles/Vol] 4.1 mmol/L Normal 3.5-5.1 [facility] Comment on above: Performed By: #### L IPID, TSH, CMP #### [facility] [address] [place] [address] Dr. Leesa Urbina Protein [Mass/Vol] 6.5 g/dL Normal 6.4-8.2 [facility] Comment on above: Performed By: #### L IPID, TSH, CMP #### [facility] [address] [place] [address] Dr. Leesa Urbina Sodium [Moles/Vol] 143 mmol/L Normal 136-145 [facility] Comment on above: Performed By: #### L IPID, TSH, CMP #### [facility] [address] [place] [address] Dr. Leesa Urbina Urea nitrogen [Mass/Vol] 24.0 mg/dL Critically high 7.0-18.0 [facility] Comment on above: Performed By: #### L IPID, TSH, CMP #### [facility] [address] [place] [address] Dr. Leesa Urbina Urea nitrogen/Creatinine [Mass ratio] 22.6 mg/mg Normal [facility] Comment on above: Performed By: #### L IPID, TSH, CMP #### [facility] [address] [place] [address] Dr. Leesa Urbina Basophils Auto (Bld) [#/Vol] Ordered By: Juan Guzman on 12-05-2021 Basophils (Bld) [#/Vol] 0.1 10*3/uL 0.0-0.2 [facility] Basophils/100 WBC Auto (Bld) Ordered By: Juan Guzman on 12-05-2021 Basophils/100 WBC (Bld) 0.9 % [facility] Blood hemoglobin measurement (mass/volume)Ordered By: Juan Guzman on 12-05-2021 Hemoglobin (Bld) [Mass/Vol] 12.4 g/dL 13.0-17.0 [facility] Blood leukocytes automated c ount (number/volume)Ordered By: Juan Guzman on 12-05-2021 WBC (Bld) [#/Vol] 7.0 10*3/uL 4.5-11.0 [facility] COVID-19 Positive/NegativeOr dered By: Juan Guzman on 12-05-2021 SARS-CoV-2 (COVID-19) N gene RENETTA+probe Ql (Resp) Negative Negative [facility] Comment on above: Testing for SARS-CoV -2 by RT-PCR This test was developed and its performance characteristics determined by [employer] and validated at the [facility]. This test has not been FDA [...] fi ltration rate.predicted panel (S/P/Bld)Ordered By: Juan Guzman on 12-05-2021 Creatinine [Mass/Vol] 1.28 mg/dL 0.64-1.27 [facility] Eosinophils Auto (Bld) [#/Vo l]Ordered By: Juan Guzman on 12-05-2021 Eosinophils (Bld) [#/Vol] 0.1 10*3/uL 0.0-0.45 [facility] Eosinophils/100 WBC Auto (Bl d)Ordered By: Juan Guzman on 12-05-2021 Eosinophils/100 WBC (Bld) 2.1 % [facility] Erythrocyte distribution wid th Auto (RBC) [Ratio]Ordered By: Juan Guzman on 12-05-2021 Erythrocyte distribution width (RBC) [Ratio] 14.6 % 12.0-14.8 [facility] Estimated glomerular filtrat ion rate (GFR) non- AmericanOrdered By: Juan Guzman on 12-05-2021 GFR/1.73 sq M.predicted among non-blacks MDRD (S/P/Bld) [Vol rate/Area] 54 mL/Min [facility] Hematocrit Auto (Bld) [Volum e fraction]Ordered By: Juan Guzman on 12-05-2021 Hematocrit (Bld) [Volume fraction] 37.3 % 38.8-50.0 [facility] - Hematology and Cell countsOrdered By: Juan Guzman on 12-05-2021 Nucleated RBC/100 WBC (Bld) [Ratio] 0.0 % 0-0.5 [facility] Lymphocytes Auto (Bld) [#/Vo l]Ordered By: Juan Guzman on 12-05-2021 Lymphocytes (Bld) [#/Vol] 1.4 10*3/uL 1.00-4.8 [facility] Lymphocytes/100 WBC Auto (Bl d)Ordered By: Juan Guzman on 12-05-2021 Lymphocytes/100 WBC (Bld) 19.8 % [facility] MCH Auto (RBC) [Entitic mass ]Ordered By: Juan Guzman on 12-05-2021 MCH (RBC) [Entitic mass] 30.8 pg 27.5-35.2 [facility] MCHC Auto (RBC) [Mass/Vol]Or dered By: Juan Guzman on 12-05-2021 MCHC (RBC) [Mass/Vol] 33.1 g/dL 32.5-35.6 [facility] MCV Auto (RBC) [Entitic vol] Ordered By: Juan Guzman on 12-05-2021 MCV (RBC) [Entitic vol] 93.1 fL 83.5-101 F [facility] Monocytes Auto (Bld) [#/Vol] Ordered By: Juan Guzman on 12-05-2021 Monocytes (Bld) [#/Vol] 0.5 10*3/uL 0.0-0.8 [facility] Monocytes/100 WBC Auto (Bld) Ordered By: Juan Guzman on 12-05-2021 Monocytes/100 WBC (Bld) 7.3 % [facility] Neutrophils Auto (Bld) [#/Vo l]Ordered By: Juan Guzman on 12-05-2021 Neutrophils (Bld) [#/Vol] 4.9 10*3/uL 1.8-7.7 [facility] Neutrophils/100 WBC Auto (Bl d)Ordered By: Juan Guzman on 12-05-2021 Neutrophils/100 WBC (Bld) 69.9 % [facility] No Panel InformationOrdered By: Juan Guzman on 12-05-2021 Estimated GFR () > 60 mL/Min [facility] Comment on above: GFR estimated refere nce range: According to KDOQI guidelines, <60 ml/min/1.73m2 is sufficient to diagnose a patient with chronic kidney disease. Pharmacy Creatinine Clearance (Chem N/A [facility] Platelet mean volume Auto (B ld) [Entitic vol]Ordered By: Juan Guzman on 12-05-2021 Platelet mean volume (Bld) [Entitic vol] 8.9 fL 6.6-10.1 [facility] Platelets Auto (Bld) [#/Vol] Ordered By: Juan Guzman on 12-05-2021 Platelets (Bld) [#/Vol] 194 10*3/uL 150-450 [facility] RBC Auto (Bld) [#/Vol]Ordere d By: Juan Guzman on 12-05-2021 RBC (Bld) [#/Vol] 4.00 10*6/uL 3.90-5.60 [facility] Serum or plasma calcium fco urement (mass/volume)Ordered By: Juan Guzman on 12-05-2021 Calcium [Mass/Vol] 9.2 mg/dL 8.2-10.2 [facility] Serum or plasma chloride daniel surement (moles/volume)Ordered By: Juan Guzman on 12-05-2021 Chloride [Moles/Vol] 107 mmol/L 95-114 [facility] Serum or plasma glucose fco urement (mass/volume)Ordered By: Juan Guzman on 12-05-2021 Glucose [Mass/Vol] 117 mg/dL 70-100 [facility] Comment on above: ADA recommended refe rence range Random Glucose Reference Range is dependent on time and content of last meal. Glucose of more than 200 mg/dL in a nonstressed, ambulatory subject supports the diagnosis of Diabetes Mellitus. Serum or plasma potassium me asurement (moles/volume)Ordered By: Juan Guzman on 12-05-2021 Potassium [Moles/Vol] 4.6 mmol/L 3.5-5.1 [facility] Serum or plasma sodium measu rement (moles/volume)Ordered By: Juan Guzman on 12-05-2021 Sodium [Moles/Vol] 141 mmol/L 136-146 [facility] Serum or plasma total carbon dioxide measurement (moles/volume)Ordered By: Juan Guzman on 12-05-2021 CO2 [Moles/Vol] 26.2 mmol/L 22.0-30.0 [place] Serum or plasma urea nitroge n measurement (mass/volume)Ordered By: Juan Guzman on 12-05-2021 Urea nitrogen [Mass/Vol] 23 mg/dL 9-23 [facility] CBC AUTO DIFFon 11-05-2021 BASO # 0.1 103/ul Normal 0.0-0.1 [facility] Comment on above: Performed By: #### C BC #### [facility] [address] [address] [address] Leesa Urbina Basophils/100 WBC (Bld) 0.8 % Normal 0.2-2.[address] [facility] Comment on above: Performed By: #### C BC #### [facility] [address] [address] [address] Leesa Urbina EO # 0.4 103/ul Normal 0.0-0.7 [facility] Comment on above: Performed By: #### C BC #### [facility] [address] [place] [address] Dr. Leesa Urbina Eosinophils/100 WBC (Bld) 5.6 % Normal 0.9-7.0 [facility] Comment on above: Performed By: #### C BC #### [facility] [address] [place] [address] Dr. Leesa Urbina Erythrocyte distribution width (RBC) [Ratio] 13.4 % Normal 11.0-15.0 [facility] Comment on above: Performed By: #### C BC #### [facility] [address] [place] [address] Dr. Leesa Urbina Hematocrit (Bld) [Volume fraction] 36.1 % Critically low 42.0-54.0 [facility] Comment on above: Performed By: #### C BC #### [facility] [address] [place] [address] Dr. Leesa Urbina Hemoglobin (Bld) [Mass/Vol] 11.8 g/dL Critically low 14.0-18.0 [facility] Comment on above: Performed By: #### C BC #### [facility] [address] [place] [address] Dr. Leesa Urbina IG # 0.02 10e3/ul Normal 0.00-0.03 [facility] Comment on above: Performed By: #### C BC #### [facility] [address] [place] [address] Dr. Leesa Urbina IG % 0.3 % Normal 0.0-0.5 [facility] Comment on above: Performed By: #### C BC #### [facility] [address] [place] [address] Dr. Leesa Urbina LYMPH # 1.8 103/ul Normal 1.2-3.8 [facility] Comment on above: Performed By: #### C BC #### [facility] [address] [place] [address] Dr. Leesa Urbina Lymphocytes/100 WBC (Bld) 28.4 % Normal 20.5-60.0 [facility] Comment on above: Performed By: #### C BC #### [facility] [address] [place] [address] Dr. Leesa Urbina MANUAL DIFF REQ NO Normal [facility] Comment on above: Performed By: #### C BC #### [facility] [address] [place] [address] Dr. Leesa Urbina MCH (RBC) [Entitic mass] 30.7 pg Normal 25.9-34.0 [facility] Comment on above: Performed By: #### C BC #### [facility] [address] [place] [address] Dr. Leesa Urbina MCHC (RBC) [Mass/Vol] 32.7 g/dL Normal 29.9-35.2 [facility] Comment on above: Performed By: #### C BC #### [facility] [address] [place] [address] Dr. Leesa Urbina MCV (RBC) [Entitic vol] 94.0 fL Normal 80.0-94.[address] [facility] Comment on above: Performed By: #### C BC #### [facility] [address] [place] [address] Dr. Leesa Urbina MONO # 0.5 103/ul Normal 0.3-0.8 [facility] Comment on above: Performed By: #### C BC #### [facility] [address] [place] [address] Dr. Leesa Urbina Monocytes/100 WBC (Bld) 8.1 % Normal 1.7-12.[address] [facility] Comment on above: Performed By: #### C BC #### [facility] [address] [place] [address] Dr. Leesa Urbina NEUT # 3.5 103/ul Normal 1.4-6.5 [facility] Comment on above: Performed By: #### C BC #### [facility] [address] [place] [address] Dr. Leesa Urbina Neutrophils/100 WBC (Bld) 56.8 % Normal 43.0-75.0 [facility] Comment on above: Performed By: #### C BC #### [facility] [address] [place] [address] Dr. Leesa Urbina Platelet mean volume (Bld) [Entitic vol] 10.3 fL Normal 9.5-13.5 [facility] Comment on above: Performed By: #### C BC #### [facility] [address] [place] [address] Dr. Leesa Urbina PLT 179 103/ul Normal 150-450 [facility] Comment on above: Performed By: #### C BC #### [facility] [address] [address] [address] Leesa Urbina RBC 3.84 106/ul Critically low 4.70-6.10 [facility] Comment on above: Performed By: #### C BC #### [facility] [address] [place] [address] Dr. Leesa Urbina WBC 6.2 103/ul Normal 4.0-11.0 [facility] Comment on above: Performed By: #### C BC #### [facility] [address] [place] [address] Dr. Leesa Urbina GLYCOHEMOGLOBIN A1Con 2021 ADA RECOMMENDATION SEE BELOW Normal [facility] Comment on above: Result Comment: ADA RECOMMENDED LIMIT 4.0 - 6.0 ADA THERAPEUTIC TARGET < 7.0 ACTION SUGGESTED > 7.0 Performed By: #### L IPID, TSH, CMP #### [facility] [address] [place] [address] Dr. Leesa Urbina Glucose [Mass/Vol] 151 mg/dL Normal [facility] Comment on above: Performed By: #### L IPID, TSH, CMP #### [facility] [address] [place] [address] Dr. Leesa Urbina HbA1c (Bld) [Mass fraction] 6.9 % Critically high 4.5-6.2 [facility] Comment on above: Performed By: #### L IPID, TSH, CMP #### [facility] [address] [place] [address] Dr. Leesa Urbina LIPID PROFILEon 11-05-2021 CHOL-HDL RATIO NORM SEE BELOW Normal [facility] Comment on above: Result Comment: 3.3 - 4.4 LOW RISK 4.4 - 7.1 AVERAGE RISK 7.1 - 11.0 MODERATE RISK >11.0 HIGH RISK Performed By: #### L IPID, TSH, CMP #### [facility] [address] [address] [address] Leesa Urbina Cholesterol [Mass/Vol] 150 mg/dL Normal <=200 Th [facility] Comment on above: Performed By: #### L IPID, TSH, CMP #### [facility] [address] [address] [address] Leesa Urbina Cholesterol in HDL [Mass/Vol] 60 mg/dL Normal 40-60 [facility] Comment on above: Performed By: #### L IPID, TSH, CMP #### [facility] [address] [address] [address] Leesa Urbina Cholesterol in LDL [Mass/Vol] 70.8 mg/dL Normal [facility] Comment on above: Performed By: #### L IPID, TSH, CMP #### [facility] [address] [address] [address] Leesa Urbina Cholesterol.total/Kandy sterol in HDL [Mass ratio] 2.5 {ratio} Normal [facility] Comment on above: Performed By: #### L IPID, TSH, CMP #### [facility] [address] [place] [address] Dr. Leesa Urbina HDL NORMAL > or = 60 mg/dl - LO W CARDIOVASCULAR RISK <40 mg/dl - HIGH CARDIOVASCULAR RISK Normal [facility] Comment on above: Performed By: #### L IPID, TSH, CMP #### [facility] [address] [place] [address] Dr. Leesa Urbina LDL CALC NORMAL SEE BELOW Normal [facility] Comment on above: Result Comment: <100 mg/dl OPTIMAL 100 - 129 mg/dl NEAR OR ABOVE OPTIMAL 130 - 159 mg/dl BORDERLINE HIGH 160 - 189 mg/dl HIGH >190 mg/dl VERY HIGH Performed By: #### L IPID, TSH, CMP #### [facility] [address] [address] [address] Leesa Urbina Triglyceride [Mass/Vol] 96 mg/dL Normal <=150 T [facility] Comment on above: Performed By: #### L IPID, TSH, CMP #### [facility] [address] [address] [address] Leesa Urbina VLDL CALC 19.2 mg/dL Normal [facility] Comment on above: Performed By: #### L IPID, TSH, CMP #### [facility] [address] [address] [address] Leesa Urbina MICROALB CREAT RATIO RANDOMo n 11-05-2021 mALB <1.3 Normal <=30.0 [facility] Comment on above: Performed By: #### L IPID, TSH, CMP #### [facility] [address] [place] [address] Dr. Leesa Urbina MALB CR RATIO 11.4 mg/g Normal 0.0-29.9 [facility] Comment on above: Performed By: #### L IPID, TSH, CMP #### [facility] [address] [address] [address] Leesa Urbina MALB CR RATIO RANGE SEE BELOW Normal [facility] Comment on above: Result Comment: NO M ICROALBUMINURIA 0-29 MG/G CLINICAL MICROALBUMINURIA 30-300 MG/G MACROALBUMINURIA >300 MG/G Performed By: #### L IPID, TSH, CMP #### [facility] [address] [place] [address] Dr. Leesa Urbina URINE CREAT 114.03 mg/dL Normal 20.00-300.00 [facility] Comment on above: Performed By: #### L IPID, TSH, CMP #### [facility] [address] [place] [address] Dr. Leesa Urbina PROF 14(COMP METB)on 022 Albumin [Mass/Vol] 2.3 g/dL Critically low 3.4-5.0 [facility] Comment on above: Performed By: #### L IPID, TSH, CMP #### [facility] [address] [place] [address] Dr. Lesea Urbina Albumin/Globulin [Mass ratio] 0.5 {ratio} Normal [facility] Comment on above: Performed By: #### L IPID, TSH, CMP #### [facility] [address] [place] [address] Dr. Leesa Urbina ALP [Catalytic activity/Vol] 77 U/L Normal 46-116 [facility] Comment on above: Performed By: #### L IPID, TSH, CMP #### [facility] [address] [place] [address] Dr. Leesa Urbina ALT [Catalytic activity/Vol] 16 U/L Normal 16-63 [facility] Comment on above: Performed By: #### L IPID, TSH, CMP #### [facility] [address] [place] [address] Dr. Leesa Urbina Anion gap [Moles/Vol] 13.8 mmol/L Normal [facility] Comment on above: Performed By: #### L IPID, TSH, CMP #### [facility] [address] [place] [address] Dr. Leesa Urbina AST [Catalytic activity/Vol] 15 U/L Normal 15-37 [facility] Comment on above: Performed By: #### L IPID, TSH, CMP #### [facility] [address] [place] [address] Dr. Leesa Urbina Bilirubin [Mass/Vol] 0.5 mg/dL Normal 0.2-1.0 [facility] Comment on above: Performed By: #### L IPID, TSH, CMP #### [facility] [address] [place] [address] Dr. Leesa Urbina Calcium [Mass/Vol] 8.7 mg/dL Normal 8.5-10.1 [facility] Comment on above: Performed By: #### L IPID, TSH, CMP #### [facility] [address] [place] [address] Dr. Leesa Urbina Chloride [Moles/Vol] 107 mmol/L Normal 98-107 [facility] Comment on above: Performed By: #### L IPID, TSH, CMP #### [facility] [address] [place] [address] Dr. Leesa Urbina CO2 [Moles/Vol] 26.2 mmol/L Normal 21.0-32.0 [facility] Comment on above: Performed By: #### L IPID, TSH, CMP #### [facility] [address] [address] [address] Leesa Urbina Creatinine [Mass/Vol] 1.25 mg/dL Normal 0.70-1.30 [facility] Comment on above: Performed By: #### L IPID, TSH, CMP #### [facility] [address] [address] [address] Leesa Urbina EGFR-AF GREENLANDIC >60 Normal >=60 [facility] Comment on above: Performed By: #### L IPID, TSH, CMP #### [facility] [facility] [address] [place] [address] Dr. Leesa Urbina EGFR-NON AF GREENLANDIC 55 mL/min/1.73m2 Critically low >=60 [facility] Comment on above: Performed By: #### L IPID, TSH, CMP #### [facility] [address] [address] [address] Leesa Urbina Globulin (S) [Mass/Vol] 4.3 g/dL Normal [facility] Comment on above: Performed By: #### L IPID, TSH, CMP #### [facility] [address] [address] [address] Leesa Urbina Glucose [Mass/Vol] 137 mg/dL Critically high 74-[address] [facility] Comment on above: Performed By: #### L IPID, TSH, CMP #### [facility] [address] [address] [address] Leesa Urbina Potassium [Moles/Vol] 4.0 mmol/L Normal 3.5-5.1 [facility] Comment on above: Performed By: #### L IPID, TSH, CMP #### [facility] [address] [address] [address] Leesa Urbina Protein [Mass/Vol] 6.6 g/dL Normal 6.4-8.2 [facility] Comment on above: Performed By: #### L IPID, TSH, CMP #### [facility] [address] [address] [address] Leesa Urbina Sodium [Moles/Vol] 143 mmol/L Normal 136-145 [facility] Comment on above: Performed By: #### L IPID, TSH, CMP #### [facility] [address] [address] [address] Leesa Urbina Urea nitrogen [Mass/Vol] 24.0 mg/dL Critically high 7.0-18.0 [facility] Comment on above: Performed By: #### L IPID, TSH, CMP #### [facility] [address] [address] [address] Leesa Urbina Urea nitrogen/Creatinine [Mass ratio] 19.2 mg/mg Normal [facility] Comment on above: Performed By: #### L IPID, TSH, CMP #### [facility] [address] [address] [address] Leesa Urbina TSHon 11-05-2021 TSH 0.996 uIU/mL Normal 0.358-3.740 [facility] Comment on above: Performed By: #### L IPID, TSH, CMP #### [facility] [address] [place] [address] Dr. Leesa Urbina Tobacco Screening.on 022 Adult depression screening assessment No [facility] DO Work Phone: Fall risk assessment a) No falls within the last year [facility] [facility] DO Work Phone: Tobacco use status [facility] b) No [facility] [facility] 250 DO Work Phone: Vital Signs Date Time Vital Sign Value Performing Clinician Facility 11-09-2024 09:21-0400 Body height 175.3 cm Juan Guzman DO Work Phone: [facility] 11-09-2024 09:21-0400 Body mass index (BMI) [Ratio] 25.1 kg/m2 Juan Guzman DO Work Phone: [facility] 11-09-2024 09:21-0400 Body weight 77.11 kg Juan Guzman DO Work Phone: [facility] 10-02-2024 11:54-0400 Body height 180.3 cm Missy Khoury MD Work Phone: [facility] 10-02-2024 11:54-0400 Body mass index (BMI) [Ratio] 23.15 kg/m2 Missy Khoury MD Work Phone: [facility] 10-02-2024 11:54-0400 Body weight 75.3 kg Missy Khoury MD Work Phone: [facility] 10-02-2024 11:54-0400 Diastolic blood pressure 64 mm[Hg] Missy Khoury MD Work Phone: [facility] 10-02-2024 11:54-0400 Heart rate 64 /min Missy Khoury MD Work Phone: [facility] 10-02-2024 11:54-0400 Systolic blood pressure 142 mm[Hg] Missy Khoury MD Work Phone: [facility] 09-04-2024 08:03-0400 Body height 175.3 cm Nirav Bello DO Work Phone: [facility] 09-04-2024 08:03-0400 Body mass index (BMI) [Ratio] 24.96 kg/m2 Nirav Bello DO Work Phone: [facility] 09-04-2024 08:03-0400 Body weight 76.66 kg Nirav Bello DO Work Phone: [facility] 09-04-2024 08:03-0400 Diastolic blood pressure 72 mm[Hg] Nirav Bello DO Work Phone: [facility] 09-04-2024 08:03-0400 Heart rate 62 /min Nirav Bello DO Work Phone: [facility] 09-04-2024 08:03-0400 SaO2% (BldA) [Mass fraction] 96 % Niravata Bello DO Work Phone: [facility] 09-04-2024 08:03-0400 Systolic blood pressure 138 mm[Hg] Nirav Ace DO Work Phone: [facility] 08-09-2024 11:25-0400 Diastolic blood pressure 87 mm[Hg] Nirav Bello DO Work Phone: [facility] 08-09-2024 11:25-0400 Heart rate 74 /min Nirav Bello DO Work Phone: [facility] 08-09-2024 11:25-0400 Respiratory rate 16 /min Nirav Bello DO Work Phone: [facility] 08-09-2024 11:25-0400 SaO2% (BldA) [Mass fraction] 96 % Nirav Ace DO Work Phone: [facility] 08-09-2024 11:25-0400 Systolic blood pressure 171 mm[Hg] Nirav Ace DO Work Phone: [facility] 08-09-2024 10:05-0400 Body height 180.34 cm Nirav Ace DO Work Phone: [facility] 08-09-2024 10:05-0400 Body temperature 97.5 [degF] Nirav Bello DO Work Phone: [facility] 08-09-2024 10:05-0400 Body weight 75.29 kg Nirav Bello DO Work Phone: [facility] 05-10-2024 09:57-0500 Body height 175.3 cm Nirav Bello DO Work Phone: [facility] 05-10-2024 09:57-0500 Body mass index (BMI) [Ratio] 24.81 kg/m2 Nirav Bello DO Work Phone: [facility] 05-10-2024 09:57-0500 Body weight 76.2 kg Nirav Bello DO Work Phone: [facility] 05-10-2024 09:57-0500 Diastolic blood pressure 66 mm[Hg] Nirav Bello DO Work Phone: [facility] 05-10-2024 09:57-0500 Heart rate 72 /min Nirav Bello DO Work Phone: [facility] 05-10-2024 09:57-0500 SaO2% (BldA) [Mass fraction] 97 % Nirav Bello DO Work Phone: [facility] 05-10-2024 09:57-0500 Systolic blood pressure 136 mm[Hg] Nirav Bello DO Work Phone: [facility] 05-01-2024 14:07-0500 Diastolic blood pressure 94 mm[Hg] Missy Khoury MD Work Phone: [facility] 05-01-2024 14:07-0500 Systolic blood pressure 174 mm[Hg] Missy Khoury MD Work Phone: [facility] 05-01-2024 13:39-0500 Body height 180.3 cm Missy Khoury MD Work Phone: [facility] 05-01-2024 13:39-0500 Body mass index (BMI) [Ratio] 23.99 kg/m2 Missy Khoury MD Work Phone: [facility] 05-01-2024 13:39-0500 Body weight 78.02 kg Missy Khoury MD Work Phone: [facility] 05-01-2024 13:39-0500 Heart rate 48 /min Missy Khoury MD Work Phone: [facility] 02-21-2024 07:52-0400 Body height 180.[address] 02-21-2024 07:52-0400 Body mass index (BMI) [Ratio] 23.71 kg/m2 [place] [facility] 02-21-2024 07:52-0400 Body weight 77.11 kg [place] 2 [facility] 02-21-2024 07:52-0400 Diastolic blood pressure 84 mm[Hg] [place] 2 [facility] 02-21-2024 07:52-0400 Systolic blood pressure 142 mm[Hg] [place] 2 [facility] 02-07-2024 09:44-0400 Diastolic blood pressure 86 mm[Hg] [place] 1 [facility] 02-07-2024 09:44-0400 Heart rate 66 /min [address] 02-07-2024 09:44-0400 Systolic blood pressure 138 mm[Hg] [address] 01-13-2024 16:15-0400 Diastolic blood pressure 100 mm[Hg] Missy Khoury MD Work Phone: [facility] 01-13-2024 16:15-0400 Systolic blood pressure 162 mm[Hg] Missy Khoury MD Work Phone: [facility] 01-13-2024 15:24-0400 Body height 180.3 cm Missy Khoury MD Work Phone: [facility] 01-13-2024 15:24-0400 Body mass index (BMI) [Ratio] 23.71 kg/m2 Missy Khoury MD Work Phone: [facility] 01-13-2024 15:24-0400 Body weight 77.11 kg Missy Khoury MD Work Phone: [facility] 01-13-2024 15:24-0400 Heart rate 72 /min Missy Khoury MD Work Phone: [facility] 01-11-2024 09:54-0400 Body height 175.3 cm Nirav Bello DO Work Phone: [facility] 01-11-2024 09:54-0400 Body mass index (BMI) [Ratio] 24.22 kg/m2 Niarv Bello DO Work Phone: [facility] 01-11-2024 09:54-0400 Body weight 74.39 kg Nirav Bello DO Work Phone: [facility] 01-11-2024 09:54-0400 Heart rate 75 /min Nirav Bello DO Work Phone: [facility] 01-11-2024 09:54-0400 SaO2% (BldA) [Mass fraction] 97 % Nirav Bello DO Work Phone: [facility] 07-13-2023 08:34-0500 Body height 180.3 cm Epifanio Davis MD Work Phone: [facility] 07-13-2023 08:34-0500 Body mass index (BMI) [Ratio] 23.99 kg/m2 Epifanio Davis MD Work Phone: [facility] 07-13-2023 08:34-0500 Body weight 78.02 kg Epifanio Davis MD Work Phone: [facility] 07-13-2023 08:34-0500 Diastolic blood pressure 64 mm[Hg] Epifanio Davis MD Work Phone: [facility] 07-13-2023 08:34-0500 Heart rate 60 /min Epifanio Davis MD Work Phone: [facility] 07-13-2023 08:34-0500 Systolic blood pressure 108 mm[Hg] Epifanio Davis MD Work Phone: [facility] 11-17-2022 14:15-0400 Body height 180.34 cm Imad Asaad Other [employer] [facility] [employer] Other 11-17-2022 14:15-0400 Body mass index (BMI) [Ratio] 23.71 kg/m2 Imad Asaad Other [employer] [facility] [employer] Other 11-17-2022 14:15-0400 Body weight 77.11 kg Imad Asaad Other [facility] [employer] Other 11-17-2022 14:15-0400 Diastolic blood pressure 78 mm[Hg] Imad Asaad Other [facility] [employer] Other 11-17-2022 14:15-0400 Systolic blood pressure 127 mm[Hg] Imad Asaad Other [facility] [employer] Other 07-14-2022 09:08-0500 Body height 180.34 cm Nirav Bello Work Phone: [facility] [place] [address] DO Work Phone: 07-14-2022 09:08-0500 Body mass index (BMI) [Ratio] 24.13 kg/m2 Nirav Bello Work Phone: [facility] [place] [address] DO Work Phone: 07-14-2022 09:08-0500 Body surface area Derived from formula 1.98 m2 Nirav Bello Work Phone: [facility] [place] [address] DO Work Phone: 07-14-2022 09:08-0500 Body weight 78.47 kg Nirav Bello Work Phone: [facility] [place] [address] DO Work Phone: 07-14-2022 09:08-0500 Diastolic blood pressure 78 mm[Hg] Nirav Bello Work Phone: [facility] [place] [address] DO Work Phone: 07-14-2022 09:08-0500 Heart rate 68 /min Nirav Bello Work Phone: [facility] [place] [address] DO Work Phone: 07-14-2022 09:08-0500 Systolic blood pressure 124 mm[Hg] Nirav Bello Work Phone: [facility] 250 DO Work Phone: 07-03-2021 15:20-0500 Diastolic blood pressure 78 mm[Hg] Nirav Bello Work Phone: [facility] 250 DO Work Phone: 07-03-2021 15:20-0500 Heart rate 65 /min Nirav Bello Work Phone: [facility] 250 DO Work Phone: 07-03-2021 15:20-0500 Systolic blood pressure 136 mm[Hg] Nirav Bello Work Phone: [facility] 250 DO Work Phone: 07-03-2021 15:17-0500 Body height 180.34 cm Nirav Bello Work Phone: [facility] 250 DO Work Phone: 07-03-2021 15:17-0500 Body mass index (BMI) [Ratio] 24.97 kg/m2 Nirav Bello Work Phone: [facility] 250 DO Work Phone: 07-03-2021 15:17-0500 Body surface area Derived from formula 2.01 m2 Nirav Bello Work Phone: [facility] 250 DO Work Phone: 07-03-2021 15:17-0500 Body weight 81.19 kg Nirav Bello Work Phone: [facility] 250 DO Work Phone: 07-03-2021 15:17-0500 Diastolic blood pressure 80 mm[Hg] Nirav Bello Work Phone: [facility] 250 DO Work Phone: 07-03-2021 15:17-0500 Systolic blood pressure 151 mm[Hg] Nirav Bello Work Phone: [facility] 250 DO Work Phone: Encounters Encounter Date Encounter Type Care Provider Facility Start: 11-09-2024 End: 11-09-2024 Bamboo flowsheet Juan Landon Williamdeanna DO Work Phone: [facility] Start: 11-09-2024 End: 11-09-2024 Bamboo flowsheet Juan Williamsegundoorionlokesh DO Work Phone: [facility] Start: 11-09-2024 End: 11-09-2024 Office outpatient visit 40 minutes Juan Guzman DO Work Phone: [facility] Comment on above: Chronic anticoagulat ion (Primary Dx); Squamous cell carcinoma of skin of face Start: 11-09-2024 End: 11-09-2024 ambulatory JUAN GUZMAN Not Available Start: 10-30-2024 End: 10-30-2024 Clinisync Result Encounter Nirav Bello DO Work Phone: [facility] External Department Unsolicited Start: 10-30-2024 End: 10-30-2024 Clinisync Result Encounter Nirav Bello DO Work Phone: [facility] External Department Unsolicited Start: 10-26-2024 End: 10-26-2024 Bamboo flowsheet Laura Hensley MD Work Phone: [facility] Start: 10-26-2024 End: 10-26-2024 Bamboo flowsheet Laura Hensley MD Work Phone: [facility] Start: 10-26-2024 End: 10-26-2024 Office outpatient visit 15 minutes Laura Hensley MD Work Phone: [facility] Comment on above: Seborrheic keratosis (Primary Dx); Lentigines; Actinic keratosis; Neoplasm of unspecified behavior of bone, soft tissue, and skin; History of malignant neoplasm of skin Start: 10-26-2024 End: 10-26-2024 ambulatory LAURA HENSLEY Not Available Start: 10-02-2024 End: 10-02-2024 Office outpatient visit 25 minutes Missy Khoury MD Work Phone: [facility] Comment on above: Paroxysmal atrial fi brillation [...] Former smoker Start: 10-02-2024 End: 10-02-2024 ambulatory [facility] Start: 09-13-2024 End: 09-13-2024 Bamboo flowsheet Aamir Nance MD Work Phone: [facility] Start: 09-13-2024 End: 09-13-2024 Bamboo flowsheet Aamir Nance MD Work Phone: [facility] Start: 09-13-2024 End: 09-13-2024 Postop follow up visit related to original px Aamir Nance MD Work Phone: [facility] Comment on above: Encounter for remova l of sutures Start: 09-13-2024 End: 09-13-2024 ambulatory AAMIR NANCE Not Available Start: 09-04-2024 End: 09-04-2024 Office outpatient visit 40 minutes Nirav Bello DO Work Phone: [facility] Comment on above: PAF (paroxysmal atri al fibrillation) (CMS/HCC) (Primary Dx); Stage 3a chronic kidney disease (HCC) (CMS/HCC); Type 2 diabetes mellitus with other specified complication, without long-term current use of insulin; Mixed hyperlipidemia (CMS/HCC); Exocrine pancreatic insufficiency (CMS/HCC); Primary hypertension ([facility]/HCC) Start: 09-04-2024 End: 09-04-2024 ambulatory NIRAV BELLO Not Available Start: 08-30-2024 End: 08-30-2024 Patient encounter procedure Laura Hensley MD Work Phone: [facility] Comment on above: 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, including shoulder (Primary Dx) Start: 08-30-2024 End: 08-30-2024 ambulatory LAURA HENSLEY Not Available Start: 08-25-2024 End: 08-25-2024 Clinisync Result Encounter Generic External Data Provider [facility] External Department Unsolicited Start: 08-25-2024 End: 08-25-2024 Clinisync Result Encounter Generic External Data Provider [facility] External Department Unsolicited Start: 08-09-2024 End: 08-09-2024 Admission to same day surgery center Nirav Bello DO Work Phone: [facility] [place] Start: 08-09-2024 End: 08-09-2024 ambulatory Nirav Bello DO Work Phone: [facility] Work Phone: Start: 08-04-2024 End: 08-04-2024 ambulatory OLGA DALEY Not Available Start: 07-26-2024 End: 07-26-2024 Patient encounter procedure Laura Hensley MD Work Phone: [facility] Comment on above: 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, including hip (Primary Dx) Start: 07-26-2024 End: 07-26-2024 ambulatory LAURA HENSLEY Not Available Start: 07-26-2024 End: 07-26-2024 Bamboo flowsheet Laura Hensley MD Work Phone: [facility] Start: 07-26-2024 End: 07-26-2024 Bamboo flowsheet Laura Hensley MD Work Phone: [facility] Start: 07-14-2024 End: 07-14-2024 Bamboo flowsgeno Hensley MD Work Phone: [facility] Start: 07-14-2024 End: 07-14-2024 Bamrichie Hensley MD Work Phone: [facility] Start: 07-14-2024 End: 07-14-2024 Patient encounter procedure Laura Hensley MD Work Phone: [facility] Comment on above: Neoplasm of unspecif ied behavior of bone, soft tissue, and skin (Primary Dx); Encounter for removal of sutures Start: 07-14-2024 End: 07-14-2024 ambulatory LAURA HENSLEY Not Available Start: 07-06-2024 End: 07-06-2024 Clinisync Result Encounter Generic External Data Provider [facility] External Department Unsolicited Start: 07-06-2024 End: 07-06-2024 Clinisync Result Encounter Generic External Data Provider [facility] External Department Unsolicited Start: 06-30-2024 End: 06-30-2024 Bamboo linda Hensley MD Work Phone: [facility] Start: 06-30-2024 End: 06-30-2024 Nanette Hensley MD Work Phone: [facility] Start: 06-30-2024 End: 06-30-2024 Patient encounter procedure Laura Hensley MD Work Phone: [facility] Comment on above: Basal cell carcinoma (BCC) of skin of left upper extremity including shoulder (Primary Dx); Skin neoplasm Start: 06-30-2024 End: 06-30-2024 ambulatory LAURA SCHROEDERI Not Available Start: 05-10-2024 End: 05-10-2024 Bamboo flowsgeno Bello DO Work Phone: [facility] Start: 05-10-2024 End: 05-10-2024 Bamboo flowsheet Nirav Bello DO Work Phone: [facility] Start: 05-10-2024 End: 05-10-2024 Office outpatient visit 40 minutes Nirav Bello DO Work Phone: [facility] Comment on above: Allergic sinusitis ( Primary [...] 25 minutes Missy Khoury MD Work Phone: [facility] Comment on above: Encounter to discuss test results (Primary Dx); Paroxysmal atrial fibrillation (Multi); Nonrheumatic mitral valve regurgitation; 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); Essential hypertension; Prostate cancer (Multi); PVC (premature ventricular contraction); Mixed hyperlipidemia; Type 2 diabetes mellitus without complication, without long-term current use of insulin (Multi); 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; Former smoker; Body mass index (BMI) of 23.0 to 23.9 in adult Start: 05-01-2024 End: 05-01-2024 ambulatory [facility] Start: 04-27-2024 End: 04-27-2024 Bamboo flowsheet Laura Hensley MD Work Phone: [facility] Start: 04-27-2024 End: 04-27-2024 Bamboo flowsheet Laura Hensley MD Work Phone: [facility] Start: 04-27-2024 End: 04-27-2024 ambulatory LAURA HENSLEY Not Available Start: 04-03-2024 End: 04-03-2024 Clinisync [...] Department Unsolicited Start: 02-21-2024 End: 02-21-2024 ambulatory [facility] Start: 02-21-2024 End: 02-21-2024 Subsequent hospital visit by physician Sindi Suarez Echo/Vasc Room 2 [facility] Comment on above: PVC (premature ventr icular contraction); Paroxysmal atrial fibrillation (Multi) Start: 02-07-2024 End: 02-07-2024 Subsequent hospital visit by physician Sindi Farr [place] 1 [facility] Comment on above: PVC (premature ventr icular contraction); 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; Ventricular arrhythmia; Abnormal electrocardiogram (ECG) (EKG) Start: 02-07-2024 End: 02-07-2024 [facility] Start: 02-03-2024 End: 02-03-2024 Clinisync Result Encounter Generic External Data Provider [facility] External Department Unsolicited Start: 02-03-2024 End: 02-03-2024 Clinisync Result Encounter Generic External Data Provider [facility] External Department Unsolicited Start: 01-13-2024 End: 01-13-2024 Office outpatient visit 25 minutes Missy Khoury MD Work Phone: [facility] Comment on above: Ventricular arrhythm ia (Primary Dx); PVC (premature ventricular contraction); Paroxysmal atrial fibrillation (Multi); 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; 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; High risk medication use; Mixed hyperlipidemia; Uncontrolled hypertension; Former smoker; Type 2 diabetes mellitus without complication, without long-term current use of insulin (Multi); Stage 3a chronic kidney disease (Multi); Prostate cancer (Multi); Abnormal electrocardiogram (ECG) (EKG) Start: 01-13-2024 End: 01-13-2024 [facility] Ambulatory Start: 01-11-2024 End: 01-11-2024 Office outpatient visit 25 minutes Nirav Bello DO Work Phone: [facility] Comment on above: Primary hypertension (CMS/HCC) (Primary Dx); PAF (paroxysmal atrial fibrillation) (CMS/HCC); Stage 3a chronic kidney disease (HCC) (CMS/HCC); Type 2 diabetes mellitus with other specified complication, without long-term current use of insulin (CMS/HCC) Start: 01-11-2024 End: 01-11-2024 ambulatory NIRAV BELLO Not Available Start: 11-15-2023 End: 11-15-2023 ambulatory NIRAV BELLO Not Available Start: 09-13-2023 End: 09-13-2023 Patient encounter procedure DO Nirav Downingman Work Phone: [facility] Work Phone: Start: 09-13-2023 End: 09-13-2023 ambulatory DO Nirav Bello Work Phone: [facility] Work Phone: Start: 07-13-2023 End: 07-13-2023 Office outpatient visit 25 minutes Epifanio Davis MD Work Phone: [facility] Comment on above: Benign essential hyp ertension (Primary Dx); Mixed hyperlipidemia; Paroxysmal atrial fibrillation (CMS/HCC); Former smoker Start: 11-26-2022 End: 11-26-2022 ambulatory DO Nirav Bello Work Phone: [facility] Work Phone: Start: 11-26-2022 End: 11-26-2022 Patient encounter procedure DO Nirav Downingman Work Phone: [facility] [place] Work Phone: Start: 11-17-2022 End: 11-17-2022 ambulatory Imad Asaad Other [employer] Other Start: 11-17-2022 Office outpatient ne w 45 minutes Imad Asaad [facility] Start: 11-17-2022 Telephone encounter Jj Garcia [facility] Start: 09-03-2022 End: 09-04-[address] NIRAV BELLO Facility:[facility] Start: 07-14-2022 Office outpatient vi sit 25 minutes Nirav Bello Work Phone: [facility] 250 DO Work Phone: Start: 07-14-[address] Nirav Kulkarni Facility:[id number] Start: 05-25-2022 End: 05-26-[address] NIRAV BELLO Facility:[facility] Start: 05-06-2022 End: 05-07-[address] NIRAV BELLO Facility:[facility] Start: 03-27-2022 Rx Renewal Nirav mae Work Phone: 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 250 DO Work Phone: Start: 03-05-2021 Rx Renewal Marina lozada MD Work Phone: [facility] 250 DO Work Phone: Start: 07-12-2020 End: 07-12-2020 Discharged Recurring Nirav Bello [facility] Vacc[facility] Procedures Date Procedure Procedure Detail Performing Clinician Start: 10-30-2024 ALL CBC WITH AUTO DIFF Nirav Bello DO Work Phone: Start: 10-26-2024 CRYOTHERAPY SKIN LESION Laura Hensley MD Work Phone: Start: 10-26-2024 End: 10-26-2024 SKIN / NAIL BIOPSY Laura Hensley MD Work Phone: Start: 08-30-2024 SKIN EXCISION [...] End: 07-14-2024 SKIN / NAIL BIOPSY Laura Hensley MD Work Phone: Start: 07-06-2024 [facility] CMP (CMP) (FOR R [facility] USE) Generic External Data Provider Start: [...] By: #### L IPID, TSH, CMP #### [facility] [address] [place] [address] Dr. Leesa Urbina Start: 11-20-[address] DOCTOR BISHOP Comment on above: Performed By: #### P SAD #### [facility] [address] [address] [address] Leesa Urbina Appendectomy Nirav dnaiel Work Phone: Cataract surgery Nirav morris Work Phone: Colonoscopy Nirav daniel Work Phone: Comment on above: [id number] Jovanny Yu; Operation on lip Nirav morris Work Phone: Prostatectomy Nirav mae Work Phone: Plan of Treatment Date Care Activity Detail Author Start: 12-24-2032 Screening for malignant neoplasm of colon [facility] Start: 03-16-2026 Glaucoma screening Diabetes: Retinopathy Screening [facility] Start: 11-08-2025 Screening for osteoporosis Bone Density Scan [facility] Start: 10-30-2025 Urine screening for protein Diabetes: Urine Protein Screening [facility] Start: 04-26-2025 End: 04-26-2025 Patient encounter procedure 04/26/2025 8:35 AM EST Office Visit [facility] [address] [place] [address] Laura Hensley MD [address] [place] [address] [facility] Start: 01-17-2025 End: 01-17-2025 Patient encounter procedure 01/17/2025 1:30 PM EDT Office Visit [facility] [address] [place] [phone] Cecilia Samuels MD [address] [place] [address] [facility] Start: 12-14-2024 End: 12-14-2024 Patient encounter procedure 12/14/2024 10:30 AM EDT Office Visit [facility] [address] [facility] [address] [place] [address] Missy Khoury MD [address] [facility] [address] [place] [address] [facility] Start: 12-07-2024 End: 12-07-2024 Patient encounter procedure 12/07/2024 8:45 AM EDT Office Visit [facility] [address] [place] [phone] Laura Hensley MD [address] [place] [address] [facility] Start: 11-27-2024 End: 11-27-2024 Patient encounter procedure 11/27/2024 10:15 AM EDT Office Visit [facility] [place] [address] [place] [address] Juan Guzman DO [address] [place] [address] [facility] [place] Start: 11-14-2024 End: 11-14-2024 Patient encounter procedure 11/14/2024 9:30 AM EDT Office Visit [facility] [address] [place] [address] Nirav Bello DO [address] [place] [address] [facility] Start: 11-09-2024 End: 11-09-2024 Patient encounter procedure [facility] Comment on above: Squamous cell carcinoma of skin of face Start: 10-31-2024 Urine screening for protein Diabetes: Urine Protein Screening [facility] Start: 10-26-2024 End: 10-26-2024 Patient encounter procedure [facility] Comment on above: Arrived Start: 10-02-2024 End: 10-02-2024 Patient encounter procedure 10/02/2024 11:45 AM EDT Office Visit [facility] [address] [facility] [address] [place] [address] Missy Khoury MD [address] [facility] [address] [place] [address] [facility] Start: 09-22-2024 COVID-19 Vaccine ( season) COVID-19 Vaccine ( season) [facility] Start: 09-13-2024 End: 09-13-2024 Patient encounter procedure [facility] Comment on above: Arrived Start: 08-30-2024 End: 08-30-2024 Patient encounter procedure 08/30/2024 10:30 AM EDT Office Visit [facility] [address] [place] [phone] Laura Hensley MD [address] [place] [address] [facility] Start: 08-09-2024 [facility] Start: 08-08-2024 Hemoglobin A1c measurement Diabetes: Hemoglobin A1C [facility] Start: 07-26-2024 End: 07-26-2024 Patient encounter procedure 07/26/2024 2:50 PM EST Office Visit [facility] [address] [place] [address] Laura Hensley MD [address] [place] [address] Arrived [facility] Comment on above: Arrived Start: 07-18-2024 End: 07-18-2024 Patient encounter procedure [facility] Start: 07-14-2024 End: 07-14-2024 Patient encounter procedure [facility] Comment on above: Arrived Start: 06-30-2024 End: 06-30-2024 Patient encounter procedure [facility] Comment on above: Arrived Start: 05-22-2024 End: 05-22-2024 Patient encounter procedure 05/22/2024 8:30 AM EST Office Visit [facility] [address] [place] [address] Nirav Bello DO [address] [place] [address] [facility] Start: 05-12-2024 Medicare Annual Wellness (AWV) Medicare Annual Wellness (AWV) [facility] Start: 05-10-2024 End: 05-10-2024 Patient encounter procedure 05/10/2024 9:30 AM EST Office Visit [facility] [address] [place] [address] Nirav Bello DO [address] [place] [address] Other thrombophilia (CMS/HCC) [facility] Comment on above: Other thrombophilia (CMS/HCC) Start: 05-01-2024 End: 05-01-2024 Patient encounter procedure 05/01/2024 1:45 PM EST Office Visit [facility] [address] [place] [phone] Missy Khoury MD [address] [facility] [address] [place] [address] [facility] Start: 04-27-2024 End: 04-27-2024 Patient encounter procedure [facility] Comment on above: Arrived Start: 02-28-2024 End: 02-28-2024 Patient encounter procedure 02/28/2024 3:30 PM EDT Office [facility] [address] [place] [address] [address] [place] [address] Missy Khoury MD [address] [facility] [address] [place] [address] [facility] Start: 02-21-2024 End: 02-21-2024 Patient encounter procedure 02/21/2024 7:45 AM EDT [facility] [facility] [address] [place] [address] [place] [facility] Start: 02-07-2024 End: 02-07-2024 Professional / ancillary services management 02/07/2024 11:00 AM EDT Ancillary Procedure [address] [place] [address] [facility] Start: 02-07-2024 End: 02-07-2024 Patient encounter procedure 02/07/2024 10:15 AM EDT Appointment Josh [address] [place] [phone] [place] [facility] Start: 02-07-2024 End: 02-07-2024 [facility] Start: 01-27-2024 End: 01-12-2025 Basic metabolic 2000 panel - Serum or Plasma Basic Metabolic Panel Lab Routine Uncontrolled hypertension Expected: 01/27/2024 (Approximate), Expires: 01/12/2025 [facility] Work Phone: Comment on above: Expected: 01/27/2024 (Approximate), Expi res: 01/12/2025 Start: 01-23-2024 COVID-19 Vaccine ( season) COVID-19 Vaccine ( season) [facility] Start: 01-23-2024 Influenza vaccination Influenza Vaccine (#1) [facility] Start: 01-13-2024 End: 01-12-2025 Holter monitor study Holter Or Event Rate Clerk Cardiac Services Routine PVC (premature ventricular contraction) Paroxysmal atrial fibrillation (Multi) Expected: 01/13/2024 (Approximate), Expires: 01/12/2025 [facility] Work Phone: Comment on above: Expected: 01/13/2024 (Approximate), Expi res: 01/12/2025 Start: 01-13-2024 End: 01-12-2026 NM Heart Perfusion W stress and W radionuclide IV Nuclear Stress Test Cardiac Nuclear Medicine Routine PVC (premature ventricular contraction) 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 Ventricular arrhythmia Abnormal electrocardiogram (ECG) (EKG) Expected: 01/13/2024 (Approximate), Expires: 01/12/2026 [facility] Work Phone: Comment on above: Expected: 01/13/2024 (Approximate), Expi res: 01/12/2026 Start: 01-13-2024 End: 01-12-2026 US Heart Transthoracic Transthoracic Echo Complete Echocardiography Routine PVC (premature ventricular contraction) Paroxysmal atrial fibrillation (Multi) Expected: 01/13/2024 (Approximate), Expires: 01/12/2026 [facility] Service Area Work Phone: Comment on above: Expected: 01/13/2024 (Approximate), Expi res: 01/12/2026 Start: 12-12-2023 Glaucoma screening Diabetes: Retinopathy Screening [facility] Start: 08-28-2023 COVID-19 Vaccine ( season) COVID-19 Vaccine () [facility] Start: 07-13-2023 FUV, Provider: Epifanio Davis, Status: Pen, Time: 8:50 AM FUV, Provider: Epifanio Davis, Status: Pen, Time: 8:[address] [facility] [address] DO Work Phone: Start: 02-05-2023 Hemoglobin A1c measurement Diabetes: Hemoglobin A1C [facility] Start: 07-14-2022 FUV, Provider: Epifanio Davis, Status: Pen, Time: 9:10 AM FUV, Provider: Epifanio Davis, Status: Pen, Time: 9:10 AM [facility] 250 DO Work Phone: Start: 06-24-2021 FUV, Provider: Epifanio Davis, Status: Pen, Time: 10:15 AM FUV, Provider: Epifanio Davis, Status: Pen, Time: 10:15 AM [facility] 250 DO Work Phone: Start: 2013 RSV High Risk: (Elderly (60+) or Population) (1 - 1-dose 75+ series) RSV High Risk: (Elderly (60+) or Population) (1 - 1-dose 75+ series) [facility] Start: 1998 RSV patients and/or patients aged 60+ years (1 - 1-dose 60+ series) RSV patients and/or patients aged 60+ years (1 - 1-dose 60+ series) [facility] Start: 1960 DTaP/Tdap/Td Vaccines (1 - Tdap) DTaP/Tdap/Td Vaccines (1 - Tdap) [facility] Start: 1957 Urine screening for protein Diabetes: Urine Protein Screening [facility] Start: 1948 Diabetic foot examination Diabetes: Foot Exam [facility] Start: 1948 Glaucoma screening Diabetes: Retinopathy Screening [facility] Start: 1938 Annual wellness visit Welcome to Medicare Visit [facility] Start: 1938 Hemoglobin A1c measurement Diabetes: Hemoglobin A1C [facility] Start: 1938 Lipid panel Lipid Panel [facility] Start: 1938 Medicare Annual Wellness (AWV) Medicare Annual Wellness (AWV) [facility] Start: 1938 Medicare Annual Wellness Visit Medicare Annual Wellness Visit (AWV) [facility] Start: 1938 Screening for malignant neoplasm of colon [facility] Start: 01-21-1939 Urine screening for protein Diabetes: Urine Protein Screening [facility] Dermatopathology exam Dermatopat hology exam Pathology and Cytology Timed Basal cell carcinoma (BCC) of skin of left upper extremity including shoulder Release Upon Ordering for 1 Occurrences starting 06/30/2024 [employer] Work Phone: Comment on above: Release Upon Ordering for 1 Occurrences starting 06/30/2024 Dermatopathology exam Dermatopat hology exam Pathology and Cytology Timed Neoplasm of unspecified behavior of bone, soft tissue, and skin Release Upon Ordering for 1 Occurrences starting 07/14/2024 [facility] Work Phone: Comment on above: Release Upon Ordering for 1 Occurrences starting 07/14/2024 Dermatopathology exam Dermatopat hology exam Pathology and Cytology Timed 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, including hip Release Upon Ordering for 1 Occurrences starting 07/26/2024 [facility] Work Phone: Comment on above: Release Upon Ordering for 1 Occurrences starting 07/26/2024 Dermatopathology exam Dermatopat hology exam Pathology and Cytology Timed Squamous cell carcinoma of skin of left upper limb, including shoulder Release Upon Ordering for 1 Occurrences starting 08/30/2024 [facility] Work Phone: Comment on above: Release Upon Ordering for 1 Occurrences starting 08/30/2024 Dermatopathology exam Dermatopat hology exam Pathology and Cytology Timed Neoplasm of unspecified behavior of bone, soft tissue, and skin Release Upon Ordering for 1 Occurrences starting 10/26/2024 [facility] Work Phone: Comment on above: Release Upon Ordering for 1 Occurrences starting 10/26/2024 HIV 1+2 Ab+HIV1 p24 Ag [Presence] in Serum or Plasma by Immunoassay [facility] Patient Education Know your Meds [facility] Work Phone: Patient referral [facility] Work Phone: Immunizations Immunization Date Immunization Notes Care Provider Estefanía singh 03-25-2024 Seasonal trivalent influenza vaccine, adjuvanted, preservative free Missy Khoury MD Work Phone: [facility] Work Phone: 03-25-2024 influenza virus vacc ine, unspecified formulation Laura Hensley MD Work Phone: [facility] 03-20-2023 Influenza, Seasonal, Quadrivalent, Adjuvanted Nirav Bello DO Work Phone: [facility] 03-20-2023 influenza virus vacc ine, unspecified formulation Nirav Ace DO Work Phone: [facility] 04-03-2022 Moderna COVID-19 Biv al Booster 50 MCG/0.5ML Intramuscular Suspension Nirav Bello Work Phone: [facility] 250 DO Work Phone: 03-10-2022 Fluad Quadrivalent 0 .5 ML Intramuscular Prefilled Syringe Nirav Alicia DowningAce Work Phone: [facility] 250 DO Work Phone: 12-19-2021 Moderna COVID-19 Vac cine 100 MCG/0.5ML Intramuscular Suspension Nirav Vargas Ace Work Phone: [facility] 250 DO Work Phone: 03-20-2021 Moderna COVID-19 Vac cine 100 MCG/0.5ML Intramuscular Suspension Nirav Vargas Ace Work Phone: [facility] 03-19-2021 Moderna SARS-CoV-2 Booster Vaccination Nirav Bello DO Work Phone: [facility] 03-12-2021 influenza, high dose seasonal, preservative-free Nirav Vargas Ace Work Phone: [facility] 02-26-2021 Fluzone High-Dose Quadrivalent 0.7 ML Intramuscular Suspension Prefilled Syringe Nirav A Ace Work Phone: [facility] 250 DO Work Phone: 07-12-2020 COVID-19 mRNA-1273 (Moderna) Nirav Bello [facility] 06-15-2020 COVID-19 mRNA-1273 (Moderna) Nirav Downingman [facility] 03-15-2020 Fluad Quadrivalent 0 .5 ML Intramuscular Prefilled Syringe Nirav Alicia DowningAce Work Phone: [facility] 02-24-2020 influenza, high dose seasonal, preservative-free Nirav Bello Work Phone: [facility] FusebilluskJingdong DO Work Phone: 03-11-2019 zoster vaccine recombinant [facility]av Bello Work Phone: [facility] [employer] DO Work Phone: 03-01-2019 influenza, high dose seasonal, preservative-free Nirav Bello Work Phone: [facility] Work Phone: 02-21-2019 influenza, high dose seasonal, preservative-free [facility]ello [facility] Work Phone: 12-22-2018 zoster vaccine recombinant [facility]av [facility]ello Work Phone: [facility] Work Phone: 02-25-2018 influenza, high dose seasonal, preservative-free Nirav Bello Work Phone: [facility] Tam[facility] Work Phone: 03-16-2017 influenza, high dose seasonal, preservative-free Nirav Bello Work Phone: [facility] DO Work Phone: 05-24-2016 pneumococcal conjuga te vaccine, 13 valent Nirav Alicia Ace Work Phone: [facility] 03-30-2016 influenza, high dose seasonal, preservative-free Nirav Bello DO Work Phone: [facility] 05-02-2015 seasonal influenza, intradermal, preservative free Nirav Bello DO Work Phone: [facility] 03-22-2015 influenza, high dose seasonal, preservative-free Nirav Bello Work Phone: [facility] 250 DO Work Phone: 12-14-2013 pneumococcal conjuga te vaccine, 13 valent Nirav Bello DO Work Phone: [facility] 10-10-2012 zoster vaccine, live Nirav Bello DO Work Phone: [facility] 05-24-2012 pneumococcal polysaccharide vaccine, 23 valent Nirav Bello Work Phone: [facility] 05-31-2009 novel influenza-H1N1 -09, preservative-free, injectable Nirav Vargas Ace Work Phone: [facility] 250 DO Work Phone: 07-23-2003 pneumococcal polysaccharide vaccine, 23 valent Nirav Bello DO Work Phone: [facility] Payers Date Payer Category Payer Self-pay [id number] 2023 Medicare (Managed Care) [employer] [facility] MEDICARE [id number] 2022 Medicaid [employer] MEDICARE A DVANTAGE [id number] 2022 Medicare [id number] 1959 Private Health Insurance [facility] [id number] 1938 Unknown [id number] 2.16.840.1.100685.3.579.2. 356 1938 Unknown [id number] 2.16.840.1.232990.3.579.2. 593 1938 Unknown [id number] 2.16.840.1.983392.3.579.2. 593 1938 Unknown [id number] 2.16.840.1.516423.3.579.2. 593 1938 Unknown [id number] 2.16.840.1.650516.3.579.2. 593 1938 Unknown [id number] 2.16.840.1.529762.3.579.2. 593 1938 Unknown [id number] 2.16.840.1.489645.3.579.2. 1246 1938 Unknown [id number] 2.16.840.1.047156.3.579.2. 1246 1938 Unknown [id number] 2.16.840.1.683065.3.579.2. 1246 1938 Unknown [id number] 2.16.840.1.240521.3.579.2. 1246 1938 Unknown [id number] 2.16.840.1.990168.3.579.2. 1246 1938 Unknown [id number] 2.16.840.1.568760.3.579.2. 1246 1938 Unknown [id number] 2.16.840.1.116485.3.579.2. 1244 1938 Unknown [id number] 2.16.840.1.585824.3.579.2. 1244 1938 Unknown [id number] 2.16.840.1.371531.3.579.2. 1244 1938 Unknown [id number] 2.16.840.1.296410.3.579.2. 1244 1938 Unknown [id number] 2.16.840.1.571990.3.579.2. 125 1938 Unknown [id number] 2.16.840.1.700436.3.579.2. 1259 1938 Unknown [id number] 2.16.840.1.765515.3.579.2. 125 1938 Unknown [id number] 2.16.840.1.913827.3.579.2. 1259 1938 Unknown [id number] 2.16.840.1.238041.3.579.2. 1259 1938 Unknown [id number] 2.16.840.1.228374.3.579.2. 1259 1938 Unknown [id number] 2.16.840.1.497610.3.579.2. 125 1938 Unknown [id number] 2.16.840.1.157382.3.579.2. 125 1938 Unknown [id number] 2.16.840.1.897372.3.579.2. 1259 1938 Unknown [id number] 2.16.840.1.822242.3.579.2. 1259 1938 Unknown [id number] 2.16.840.1.382274.3.579.2. 1259 1938 Unknown [id number] 2.16.840.1.464131.3.579.2. 1259 1938 Unknown [id number] 2.16.840.1.753467.3.579.2. 1259 Medicare Medicare [id number] Private Health Insurance Self Pay [facility] [id number] Unknown [employer] Unknown [id number] 2.16.840.1.378583.3.579.2. 531 Unknown [id number] 2..840.1.051764.3.579.2. 531 Social History Date Type Detail Facility Tobacco smoking stat us [facility] Unknown if ever smoked [facility] Start: 1940 Sex Assigned At Male F [facility] Start: 11-10-2022 End: 07-13-2023 Never a smoker Never a smoker [facility] 250 DO Work Phone: Comment on above: 2-3 drinks a month; Start: 12-05-2021 End: 11-15-2023 Tobacco smoking status NYIS Ex-smoker (finding) [facility] Start: 11-10-2022 End: 07-13-2023 Sex Assigned At [facility] [email or web address] Other Start: [birth year]-12-1956 End: 05-24-1989 History of tobacco use Current smoker [facility] Work Phone: Start: 06-12-1956 End: 05-24-1989 History of tobacco use Cigarette Smoker [facility] Work Phone: Start: 07-13-2023 End: 11-15-2023 Tobacco use and exposure Smokeless tobacco non-user [facility] Work Phone: Start: 07-13-2023 End: 10-02-2024 Alcohol intake Lifetime non-drinker (finding) [facility] Work Phone: Start: 1940 Sex Assigned At Not on file [facility] Work Phone: Start: 07-03-2023 End: 10-02-2024 Exposure to SARS-CoV-2 (event) Not sure [facility] History of tobacco use Pipe Smoker [facility] History of tobacco use Passive smoker [facility] Start: 01-11-2024 End: 11-09-2024 Alcoholic beverage intake Current drinker of alcohol [...] [facility] Start: 08-09-2024 Sex Male (finding) [place] Goals Date Patient Goal Desired Activity /State Clinical Notes 07-14-2022 to 11-09-2024 Juan Guzman DO - 11/09/2024 9:30 AM Sushant Hensley MD - 10/26/2024 9:45 AM Dallas Khoury MD - 10/02/2024 11:45 AM EDTPatient Mraika Nance MD - 09/13/2024 10:45 AM EDT Note Date & Type Note Facility 11-09-2024 History of Present illness Narrative Subjective Patient ID: Epifanio Alvarez is a 84 y.o. male who presents for Suspicious Skin Lesion (New Problem : SCC left cheek) HPI 84-year-old white male presents today for evaluation of squamous carcinoma of the left cheek. Recent biopsy completed by Dermatology. This revealed evidence of malignancy in this region. Patient has long history of skin carcinoma. Believes the lesion is enlarging very quickly. Presents today for further evaluation. Review of Systems Patient denies Pain or fever. Not having any bleeding from this area. The rest of his review of systems is unchanged Allergies as of 11/09/2024 - Reviewed 11/09/2024 Allergen Reaction Noted Sulfa antibiotics Hives 05/28/2023 Sulfanilamide Unknown 10/11/2022 Past Medical History: Diagnosis Date Actinic keratosis Basal cell carcinoma Basal cell carcinoma (BCC) of skin of left upper lip Mohs 12/04/2021 Benign essential hypertension Benign hypertensive kidney disease with chronic kidney disease 05/01/2024 Body mass index (BMI) of 23.0 to 23.9 in adult 05/01/2024 Cancer of skin, squamous cell Depression Diabetes mellitus (HCC) without mention of complication, type II or unspecified type, not stated as uncontrolled Encounter to discuss test results 05/01/2024 Essential hypertension, benign Fat pad syndrome 11/09/2024 Former smoker 07/13/2023 H/O prostatectomy High risk medication use 01/13/2024 History of appendectomy Hyperlipidemia 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1 mg) by mouth 2 (two) times a day as needed for high blood pressure, Disp: 180 tablet, Rfl: 1 denosumab (Xgeva) 120 MG/1.7ML injection, Inject 120 mg under the skin every 30 (thirty) days, Disp: , Rfl: dicyclomine (Bentyl) 20 MG tablet, Take 1 tablet (20 mg) by mouth 4 (four) times a day as needed (abdominal pain or cramps), Disp: 120 tablet, Rfl: 3 fluorouracil (Efudex) 5 % cream, Apply to directed areas on the face, and backs of hands twice a day x 14 days. Dispense 30 day supply but only use for 14 days, Disp: 40 g, Rfl: 2 lisinopril 20 MG tablet, Take 1 tablet (20 mg) by mouth in the morning and 1 tablet (20 mg) before bedtime., Disp: 180 tablet, Rfl: 3 magnesium oxide (Mag-Ox) 400 MG tablet, Take 400 mg by mouth in the morning and 400 mg in the evening., Disp: , Rfl: metFORMIN (Glucophage) 500 MG tablet, TAKE 1 TABLET IN THE EVENING WITH A MEAL, Disp: 90 tablet, Rfl: 3 metoprolol succinate XL (Toprol-XL) 50 MG 24 hr tablet, Take 50 mg by mouth in the morning and 50 mg before bedtime., Disp: , Rfl: mirtazapine (Remeron) 15 MG tablet, TAKE 1 TABLET AT BEDTIME, Disp: 90 tablet, Rfl: 3 pancrelipase, [id number]-[id number]-Gtxu, (Creon) 73919-[address] units capsule, TAKE 1 CAPSULE IN THE MORNING, 1 CAPSULE AT NOON AND 1 CAPSULE IN THE EVENING WITH MEALS, Disp: 360 capsule, Rfl: 2 predniSONE (Deltasone) 5 MG tablet, Take 5 mg by mouth Daily Take with food., Disp: , Rfl: rivaroxaban (Xarelto) 20 MG tablet, 1 (one) time each day at the same time, Disp: , Rfl: Past Surgical History: Procedure Laterality Date APPENDECTOMY 1952 BACK SURGERY CATARACT EXTRACTION Left 10/01/2017 CATARACT EXTRACTION Right 10/28/2017 per in [place], [place]. COLONOSCOPY 2010 COLONOSCOPY 11/28/[address] Yu. JOINT REPLACEMENT Knee replacement MOHS SURGERY REPAIR 12/08/2021 left upper lip PROSTATECTOMY RADIATION ONCOLOGY SS 2009 35 Radiation Treatments,6-7 Disease :Reoccurance Prostrate Cancer 6 Social History Socioeconomic History Marital status: Spouse name: Not on file Number of children: Not on file Years of education: Not on file Highest education level: Not on file Occupational History Not on file Tobacco Use Smoking status: Former Current packs/day: 0.00 Average packs/day: 0.3 packs/day for 3.0 years (0.8 ttl pk-yrs) Types: Cigarettes, Pipe Start date: 06/12/1956 Quit date: 05/24/1961 Years since quittin.5 Passive exposure: Past Smokeless tobacco: Never Vaping Use Vaping status: Never Used Substance and Sexual Activity Alcohol use: Yes Comment: on occasion Drug use: Never Sexual activity: Not Currently Partners: Female Other Topics Concern Not on file Social History Narrative Exercise: daily Social Drivers of Health Financial Resource Strain: Not on file Food Insecurity: Not on file Transportation Needs: Not on file Physical Activity: Not on file Stress: Not on file Social Connections: Not on file Intimate Partner Violence: Not on file Housing Stability: Not on file Objective ENT Physical Exam General Examination: General overview: Normal, age-appropriate, no evidence of distress Head: Normocephalic, chronic changes of the skin are noted. Raised lesion of the left cheek measuring 12 x 12 mm is noted. Eyes: Pupils are equally round and reactive to light and accommodation, extraocular muscles are intact Ears: External ear architecture within normal limits, ear canals are patent, tympanic membranes are intact. Nose: External nose unremarkable, nares patent, septum intact, no evidence of congestion. Oral cavity: Mucosa moist, no evidence of ulcer, mass, or lesion Throat: Clear Neck/thyroid: Neck supple, full range of motion, no cervical lymphadenopathy, no evidence of thyromegaly Lymph nodes: No cervical lymphadenopathy Skin: Warm and dry, chronic changes of the extremities in the face from previous sun exposure and actinic changes. Heart: No jugular venous distention, point of maximal impulse normal Lungs: Good air movement, no audible wheezing, no shortness of breath Chest: Normal shape and expansion Abdomen: Normal, soft, nontender, nondistended Musculoskeletal: Cervical spine normal, full range of motion Extremities: No clubbing, cyanosis, or edema Peripheral pulses: 2+ radial, 2+ carotid Neurologic: Alert and oriented, cranial nerves 2-12 are grossly intact Psych: Alert and oriented, normal affect, no evidence of distress Assessment/Plan Diagnoses and all orders for this visit: Chronic anticoagulation Comments: Patient will discontinue his blood thinner prior to surgical intervention. Will resume this medication shortly after. Squamous cell carcinoma of skin of face Comments: Recommend wide excision with frozen section and complex repair, possible flap Orders: - Ambulatory referral to ENT At this time, I do recommend wide excision with frozen section and with reconstruction utilizing flap and/or skin graft methods. All of the options, risks, and aspects are discussed in depth. The risks include but are not limited to bleeding, infection, poor wound healing, need for further surgery, nerve injury, serous disability, and This patient has significant risks of surgery as result of his chronic medical conditions. He will need to discontinue his blood thinner prior to surgical intervention. This has increase his risk of this surgery, he fully understands and wishes to proceed. 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 [...] month skin check documented in this encounter [facility] 10-02-2024 History of Present illness Narrative Images [...] Mixed hyperlipidemia 7. Paroxysmal atrial fibrillation 8. Kwa-dlhuyhm-gyxleclht diabetes 9. [id number] score of 4. 10. Long-term anticoagulation with rivaroxaban 11. EKG June 2023-Dukes formed PVCs in a pattern of ventricular [...] B-12) 1,000 mcg tablet 1 tablet, Daily ryppfo-sgesujhd-truufty (Creon) 24,000-76,000 -120,000 unit capsule 1 capsule, [...] the presence of Dr. Missy Khoury MD, [facility]. I, Dr. Missy Khoury MD, [facility], personally performed the services described in the documentation as scribed by April Cheng LPN in my presence, and confirm it is both accurate and complete. documented in this encounter [facility] Work Phone: 10-02-2024 Instructions April Love LPN [...] visit. BMI normal documented in this encounter [facility] Work Phone: 09-13-2024 History of Present illness [...] skin check scheduled documented in this encounter [facility] 09-04-2024 Evaluation note Diagnosis PAF (paroxysmal atrial fibrillation) (CMS/HCC)- Primary Atrial fibrillation Stage 3a chronic kidney disease (HCC) (CMS/HCC) Type 2 diabetes mellitus with other specified complication, without long-term current use of insulin Mixed hyperlipidemia (CMS/HCC) Mixed hyperlipidemia Exocrine pancreatic insufficiency (CMS/HCC) Other specified disease of pancreas Primary hypertension ([facility]/HCC) Unspecified essential hypertension [id number] History of Present illness Narrative* Laura Hensley MD - 08/30/2024 10:30 AM EDT Images from the original note were not included. Subjective Epifanio Alvarez is a 84 y.o. male who presents [...] left upper limb, including shoulder Left Shoulder [place] macule at biopsy site Skin excision Lesion [...] 1.2 x 1.1 cm Previous accession number: [id number] Follow up: 14 days for s/r documented in this encounterNorthwest Medical [id number] History of Present illness Narrative* Laura Hensley MD - 07/26/2024 2:50 PM EST Images from the original note were not included. Subjective Epifanio Alvarez is a 84 y.o. male who presents [...] SCC Check Margins: yes Previous accession number: [id number] Shave excision completed today, see procedure note. Return to clinic prior to next scheduled visit for any signs or symptoms of recurrence, reviewed the signs and symptoms. Patient will be notified of results. Next Visit: as scheduled documented in this encounterNorthwest Medical CenterRdyskmjxrb23-28-8032 History of Present illness Narrative* Laura Hensley MD - 07/14/2024 8:30 AM EST Suture [...] Visit: pending biopsy results documented in this encounterNorthwest Medical [id number] History of Present illness Narrative* Laura Hensley MD - 06/30/2024 8:30 AM EST Images from the original note were not included. Subjective Epifanio Alvarez is a 84 y.o. male who presents [...] upper extremity including shoulder Left Upper Arm [place] macule at biopsy site. Skin excision Lesion [...] BCC Check Margins: Yes Previous accession number: [id number] 2. Skin neoplasm (2) Left shoulder Erythematous, crusted papule. Right lower leg Erythematous, crusted papule. Biopsies deferred until suture removal due to insurance restrictions. Follow up: 14 days for s/r documented in this encounterNorthwest Medical CenterBoshkzfwxp84-19-0531 History of Present illness Narrative* Nirav Bello, DO - 05/10/2024 9:30 AM EST Images from the original note were not included. Epifanio Alvarez is a 83 y.o. male presents with chief complaint of Hospital Follow-up (Pt presents hospital follow up at [facility] on 05/03 for hypertension. Pt states [...] 10/01/2017 CATARACT EXTRACTION Right 10/28/2017 per in [place], [place]. COLONOSCOPY 2011 COLONOSCOPY 11/28/[address] Yu. JOINT REPLACEMENT [...] Name Age of Onset Heart disease Mother Alonsoda Heart disease Father Epifanio Melanoma Neg Hx MEDICATIONS: Current Outpatient Medications Medication Instructions atorvastatin (Lipitor) 20 MG tablet TAKE 1 TABLET AT NIGHT calcitriol (ROCALTROL) 0.5 mcg, Daily cloNIDine (CATAPRES) 0.1 mg, As needed Creon [id number] units capsule TAKE 1 CAPSULE IN THE [...] List Items Addressed This Visit HTN (hypertension) ([facility]/HCC) Hyperlipidemia, unspecified ([facility]/HCC) Stage 3a chronic kidney disease (HCC) (CMS/[facility]) Type 2 diabetes mellitus with other specified complication ([facility]) Relevant Orders POCT glycosylated hemoglobin (Hb A1C) docked device PAF (paroxysmal atrial fibrillation) ([facility]/HCC) Exocrine pancreatic insufficiency ([facility]) Other Visit Diagnoses Allergic sinusitis [...] we did have an appointment with the notch grinder at [facility] recently, blood pressure was stable at that [...] I told him if he continues with Ragman pressure in the next two or three [...] Dictated and not read. documented in this encounterNorthwest Medical CenterAwfvguhlcx67-07-7370 History of Present illness Narrative* Missy Khoury [...] Mixed hyperlipidemia 7. Paroxysmal atrial fibrillation 8. Kks-notxxcj-lcpcnudjl diabetes 9. RPC6UM0-GFWt score of 4. 10. Long-term anticoagulation with rivaroxaban 11. 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 Former [...] exam, discussion and plan. [facility] Phone: 1(525) 351-126912-09-2024 Instructions* Patient Instructions* Britney Salgado LPN - [...] time of your visit. [facility] Work Phone: 1(299) 173-770908-22-2024 History of Present illness Narrative* Missy Khoruy MD - 01/13/2024 2:30 PM EDT Patient [...] Mixed hyperlipidemia 7. Paroxysmal atrial fibrillation 8. Tfv-bqvepkm-vgzkewgcb diabetes 9. YJY8YL2-QJZt score of 4. 10. Long-term anticoagulation with rivaroxaban 11. EKG June 2023-Dukes formed PVCs in a pattern of ventricular [...] 1,000 mcg tablet 1 tablet, oral, Daily lskijn-cjvwlnwj-qccrglm (Creon) 24,000-76,000 -120,000 unit capsule 1 capsule, [...] Date Noted PVC (premature ventricular contraction) 01/13/2024 half-way current use of 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 01/13/2024 High [...] contraction) Transthoracic Echo Complete Holter Or Event Rate Clerk Nuclear Stress Test CANCELED: Nuclear Stress Test 3. Paroxysmal atrial fibrillation (Multi) Follow Up In Cardiology magnesium oxide (Mag-Ox) 400 mg (241.3 mg magnesium) tablet Transthoracic Echo Complete metoprolol succinate XL (Toprol-XL) 50 mg 24 hr tablet Holter Or Event Rate Clerk CANCELED: Nuclear Stress Test 4. 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 High [...] exam, discussion and plan. [facility] Phone: 1(957) 774-700408-22-2024 Instructions* Patient Instructions* Fay Edge CMA - [...] time of your visit. [facility] Work Phone: 1(470) 539-589402-20-2024 History of Present illness Narrative* Epifanio Davis MD - 07/13/2023 8:50 AM EST Subjective Epifanio Alvarez is a 83 y.o. male Chief Complaint [...] by mouth once daily., Disp: , Rfl: tjsaet-tgdxrzco-bgepsai (Creon) 24,000-76,000 -120,000 unit capsule, Take 1 [...] exam, discussion and plan. documented in this [facility] Work Phone: 1(725) 180-146202-20-2024 Instructions* Patient Instructions* Dominick Suazo MA - [...] time of your visit. [facility] Work Phone: 1(825) 131-371206-27-2023 Evaluation note* Encounter Date Diagnosis Assessment Notes Treatment Notes Treatment Clinical Notes Oct, Change in bowel habits (ICD-10 - R19.4) Oct, Diverticulosis (ICD-10 - K57.90) Oct, IBS (irritable bowel syndrome) (ICD-10 - K58.9) Oct, Pancreatic insufficiency (ICD-10 - K86.89) [facility] Other 02-21-2023 History of Present illness Narrative* [...] follow-up next year [facility] [address] DO Work Phone: Evaluation noteNo assessment information available [facility] Work Phone: Evaluation noteNo InformationNort BackupAgent Other Evaluation note* Diagnosis Benign essential hypertension- Primary Essential hypertension, benign Mixed hyperlipidemia Paroxysmal atrial fibrillation (CMS/HCC) Atrial fibrillation Former smoker Personal history of tobacco use, presenting hazards to health documented in this encounter [facility] Work Phone: Evaluation note* Diagnosis Encounter to [...] without long-term current use of insulin (Multi) half-way current use of 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 Former smoker Personal history of tobacco use, presenting hazards to health Body mass index (BMI) of 23.0 to 23.9 in adult documented in this encounter [facility] Work Phone: Evaluation note* Diagnosis Ventricular arrhythmia- Primary Unspecified cardiac dysrhythmia PVC (premature ventricular contraction) Other premature beats Paroxysmal atrial fibrillation (Multi) Atrial fibrillation 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 High risk medication use Mixed hyperlipidemia Uncontrolled hypertension Former smoker Personal history of tobacco use, presenting hazards to health Type 2 diabetes mellitus without complication, without long-term current use of insulin (Multi) Stage 3a chronic kidney disease (Multi) Prostate cancer (Multi) Malignant neoplasm of prostate Abnormal electrocardiogram (ECG) (EKG) documented in this encounter [facility] Work Phone: Evaluation note* Diagnosis PVC (premature ventricular contraction) Other premature beats 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 Ventricular arrhythmia Unspecified cardiac dysrhythmia Abnormal electrocardiogram (ECG) (EKG) documented in this encounter [facility] Work Phone: Evaluation note* Diagnosis PVC (premature ventricular contraction) Other premature beats Paroxysmal atrial fibrillation (Multi) Atrial fibrillation documented in this encounter [facility] Work Phone: Evaluation note* Diagnosis Primary hypertension (CMS/HCC)- Primary Unspecified essential hypertension PAF (paroxysmal atrial fibrillation) (CMS/HCC) Atrial fibrillation Stage 3a chronic kidney disease (HCC) (CMS/HCC) Type 2 diabetes mellitus with other specified complication, without long-term current use of insulin (CMS/HCC) [facility] Diagnosis Allergic sinusitis- Primary Type 2 diabetes mellitus with other specified complication, without long-term current use of insulin (CMS/HCC) Primary hypertension (CMS/HCC) Unspecified essential hypertension PAF (paroxysmal atrial fibrillation) (CMS/HCC) Atrial fibrillation Exocrine pancreatic insufficiency (CMS/HCC) Other specified disease of pancreas Stage 3a chronic kidney disease (HCC) (CMS/HCC) Mixed hyperlipidemia (CMS/HCC) Mixed hyperlipidemia Chest pain, unspecified type documented in this encounter [facility]* Diagnosis Basal cell carcinoma (BCC) of skin of left upper extremity including shoulder- Primary Skin neoplasm Neoplasm of unspecified nature of bone, soft tissue, and skin documented in this encounter [facility] HealthcareEvaluation [facility]* Diagnosis Neoplasm of unspecified behavior of bone, soft tissue, and skin- Primary Encounter for removal of sutures documented in this encounter [facility]* Diagnosis 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, including hip- Primary documented in this encounter [facility]* Diagnosis Squamous cell carcinoma of skin of left upper limb, including shoulder- Primary documented in this encounter [facility]* Diagnosis Encounter for removal of sutures documented in this encounter [facility]* Diagnosis Paroxysmal atrial fibrillation (Multi) [...] hazards to health documented in this encounter [facility] Work Phone: Evaluation note* Diagnosis Seborrheic keratosis- Primary Lentigines Actinic keratosis Neoplasm of unspecified behavior of bone, soft tissue, and skin History of malignant neoplasm of skin Personal history of other malignant neoplasm of skin documented in this encounter [facility]* Diagnosis Chronic anticoagulation- Primary Encounter for long-term (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 of anticoagulants Squamous cell carcinoma of skin of face Other malignant neoplasm of skin of other and unspecified parts of face documented in this encounter [facility] HealthcareHistory general Narrative - Reported* Type Description Date Medical History diabetes mallitus Medical History high blood pressure Medical History appendectomy Medical History Palpitations Medical History Malignant neoplasm of prostate Medical History Irritable bowel syndrome Medical History Diabetes mellitus [facility] mention of complication, type II or unspecified [...] Right cataract surgery per Dr.Z santamaria in [place], [place]. 10-28-17 Surgical History Mohs repair / left upper lip Hospitalization History see above [facility] Other History of Present illness NarrativeReturns in [...] we suggest continued therapy as before without change.MP-[facility] [address] DO Work Phone: Hospital Discharge instructions [...] the incision. PLEASE NOTIFY OUR OFFICE at [phone] if you: -Develop a fever of 101 [...] rate. FOLLOW UP -Call the office at [phone] for a follow up appointment 1 week. * AFTER HOURS PHONE NUMBER [phone] *[facility] Work Phone: Advance Directives No Advanced Directives [...] No Assessments Information Available Chief Complaint EPIFANIO ALVAREZ is being seen for a 9 month follow-up of.EPIFANIO ALVAREZ is being seen for an annual follow-up [...] SPECT MULTIPLE STUDIES Missy Khoury MD [address] [address] Referral ID Status Reason Start Date Expiration Date Visits Requested Visits Authorized [id number] Authorized Perform Procedure 01/13/2024 01/12/2025 5 5 Specialty Diagnoses / Procedures Referred By Contac t Referred To Contact Cardiology Diagnoses PVC (premature ventricular contraction) Paroxysmal atrial fibrillation (Multi) Procedures Holter Or Event Rate Clerk Missy Khoury MD [address] [address] Referral ID Status Reason Start Date Expiration Date V isits Requested Visits Authorized [id number] Pending Review 01/13/2024 01/12/2025 1 1 Specialty Diagnoses / Procedures Referred By Contac t Referred To Contact Cardiology Diagnoses PVC (premature ventricular contraction) Paroxysmal atrial fibrillation (Multi) Procedures Transthoracic Echo Complete NH ECHO TTHRC R-T 2D W/WOM-MODE COMPL SPEC&COLR D Missy Khoury MD [address] [place] [address] Referral ID Status Reason Start Date Expiration Date Visits Requested Visits Authorized [id number] Authorized Perform Procedure 01/13/2024 01/12/2025 1 1 Specialty Diagnoses / Procedures Referred By Contac t Referred To Contact Cardiology Diagnoses Paroxysmal atrial fibrillation (Multi) Procedures Follow Up In Cardiology Missy Khoury MD [address] [address] Missy Khoury MD [address] [place] [address] Referral ID Status Reason Start Date Expiration Date V isits Requested Visits Authorized [id number] Authorized 01/13/2024 01/12/2025 1 1 Specialty Diagnoses / Procedures Referred By Contac t Referred To Contact Diagnoses Paroxysmal atrial fibrillation (CMS/HCC) Procedures ECG 12 Lead Epifanio Davis MD [address] [facility] 2, [address] [address] Referral ID Status Reason Start Date Expiration Date V isits Requested Visits Authorized [id number] Authorized 07/13/2023 07/12/2024 1 1 Specialty Diagnoses / Procedures Referred By Contac t Referred To Contact Cardiology Diagnoses Paroxysmal atrial fibrillation (CMS/[facility]) Procedures Follow Up In Cardiology Epifanio Davis MD [address] [facility] 2, [address] [place] [address] Epifanio Davis MD [address] [facility] [address], [address] [place] [address] Referral ID Status Reason Start Date Expiration Date V isits Requested Visits Authorized [id number] Authorized 07/13/2023 07/12/2024 1 1 Additional Source Comments Care Teams (unrecognized sec tion and content) Team Status: Inactive Member Role Status Dates Nirav Bello , Primary Care Provider Active Shonna Sim , Family Provider Active Juan Guzman DO Attending Provider Active Team Status: Active Member Role Status Dates Shonna Sim , Family Provider Active Nirav Bello , Primary Care Provider Active Team Status: Inactive Member Role Status Dates Nirav Bello DO Primary Care Provider Active Shonna Sim , Family Provider Active Jj Garcia MD Attending Provider Active Firearms Assembly Supervisor Relationship Specialty Start Date End Date Nirav Bello DO [address] [facility] [address] [place] [address] PCP - General 05/24/99 Team Status: Inactive Member Role Status Dates Nirav Bello DO Primary Care Provider Active Start: September 13, 2023 End: September 13, 2023 NON STAFF Attending Provider Active Start: 2023 End: September 13, 2023 Firearms Assembly Supervisor Relationship Specialty Start Date End Date Nirav Bello DO [address] [facility] [address] [place] [address] PCP - [employer] 05/24/20 Nirav Bello DO [address] [place] [address] PCP - General Internal Medicine 11/10/22 Marianne Davis MD [address] [facility] [address] [place] [address] Referring Physician Cardiology 05/12/23 Firearms Assembly Supervisor Relationship Specialty Start Date End Date Nirav Bello DO [address] [place] [address] PCP - [employer] 05/24/20 Nirav Bello DO [address] [place] [address] PCP - General Internal Medicine 11/10/22 Marianne Davis MD [address] [facility] [address] [place] [address] Referring Physician Cardiology 05/12/23 Firearms Assembly Supervisor Relationship Specialty Start Date End Date Nirav Bello DO [address] [place] [address] PCP - General 05/24/99 Firearms Assembly Supervisor Relationship Specialty Start Date End Date Nirav Bello DO [address] [place] [address] PCP - General 05/24/99 Firearms Assembly Supervisor Relationship Specialty Start Date End Date Nirav Bello DO [address] [place] [address] PCP - General 05/24/99 Firearms Assembly Supervisor Relationship Specialty Start Date End Date Nirav Bello DO [address] [place] [address] PCP - General 05/24/99 Firearms Assembly Supervisor Relationship Specialty Start Date End Date Nirav Bello DO [address] [place] [address] PCP - General 05/24/99 Firearms Assembly Supervisor Relationship Specialty Start Date End Date Nirav Bello DO [address] [place] [address] PCP - General 05/24/99 Firearms Assembly Supervisor Relationship Specialty Start Date End Date Nirav Bello DO [address] [place] [address] PCP - General 05/24/99 Firearms Assembly Supervisor Relationship Specialty Start Date End Date Nirav Bello DO [address] [place] [address] PCP - [employer] 05/24/20 Nirav Bello DO [address] [place] [address] PCP - General Internal Medicine 11/10/22 Marianne Davis MD [address] [place] [address] Referring Physician Cardiology 05/12/23 Firearms Assembly Supervisor Relationship Specialty Start Date End Date Nirav Bello DO [address] [place] [address] PCP - [employer] 05/24/20 Nirav Bello DO [address] [place] [address] PCP - General Internal Medicine 11/10/22 Marianne Davis MD [address] [address] Referring Physician Cardiology 05/12/23 Firearms Assembly Supervisor Relationship Specialty Start Date End Date Nirav Bello DO [address] [place] [address] PCP - [employer] 05/24/20 Nirav Bello DO [address] [place] [address] PCP - General Internal Medicine 11/10/22 Marianne Davis MD [address] [address] Referring Physician Cardiology 05/12/23 Firearms Assembly Supervisor Relationship Specialty Start Date End Date Nirav Bello DO [address] [address] [place] [address] PCP - [employer] 05/24/20 Nirav Bello DO [address] [place] [address] PCP - General Internal Medicine 11/10/22 Marianne Davis MD [address] [address] Referring Physician Cardiology 05/12/23 Firearms Assembly Supervisor Relationship Specialty Start Date End Date Nirav Bello DO [address] [place] [address] PCP - [employer] 05/24/20 Nirav Bello DO [address] [place] [address] PCP - General Internal Medicine 11/10/22 Marianne Davis MD [address] [place] [address] Referring Physician Cardiology 05/12/23 Firearms Assembly Supervisor Relationship Specialty Start Date End Date Nirav Bello DO [address] [place] [address] PCP - [employer] 05/24/20 Nirav Bello DO [address] [place] [address] PCP - General Internal Medicine 11/10/22 Marianne Davis MD [address] [place] [address] Referring Physician Cardiology 05/12/23 Team Status: Inactive Member Role Status Dates Nirav Bello DO Primary Care Provider Active Start: August 09, 2024 End: August 09, 2024 Colin Thompson MD Attending Provider Active Start: August 09, 2024 End: August 09, 2024 Firearms Assembly Supervisor Relationship Specialty Start Date End Date Nirav Bello DO [address] [place] [address] PCP - [employer] 05/24/20 Nirav Bello DO [address] [place] [address] PCP - General Internal Medicine 11/10/22 Marianne Davis MD [address] [facility] [address] [place] [address] Referring Physician Cardiology 05/12/23 Firearms Assembly Supervisor Relationship Specialty Start Date End Date Nirav Bello DO [address] [place] [address] PCP - [employer] 05/24/20 Nirav Bello DO [address] [place] [address] PCP - General Internal Medicine 11/10/22 Marianne Davis MD [address] [address] Referring Physician Cardiology 05/12/23 Firearms Assembly Supervisor Relationship Specialty Start Date End Date Nirav Bello DO [address] [place] [address] PCP - [employer] 05/24/20 Nirav Bello DO [address] [place] [address] PCP - General Internal Medicine 11/10/22 Marianne Davis MD [address] [facility] [address] [place] [address] Referring Physician Cardiology 05/12/23 Firearms Assembly Supervisor Relationship Specialty Start Date End Date Nirav Bello DO [address] [place] [address] PCP - General 05/24/99 Firearms Assembly Supervisor Relationship Specialty Start Date End Date Nirav Bello DO [address] [place] [address] PCP - [employer] 05/24/20 Nirav Bello DO [address] [place] [address] PCP - General Internal Medicine 11/10/22 Marianne Davis MD [address] [facility] [address] [place] [address] Referring Physician Cardiology 05/12/23 Firearms Assembly Supervisor Relationship Specialty Start Date End Date Nirav Bello DO [address] [place] [address] PCP - [employer] 05/24/20 Nirav Bello DO [address] [place] [address] PCP - General Internal Medicine 11/10/22 Marianne Davis MD [address] [facility] [address] [place] [address] Referring Physician Cardiology 05/12/23 Firearms Assembly Supervisor Relationship Specialty Start Date End Date Nirav Bello DO [address] [place] [address] PCP - [employer] 05/24/20 Nirav Bello DO [address] [place] [address] PCP - General Internal Medicine 11/10/22 Marianne Davis MD [address] [place] [address] Referring Physician Cardiology 05/12/23 Goals (unrecognized section [...] and content) DATE CREATED AUTHOR 07/15/2022 [facility] DATE CREATED AUTHOR AUTHOR'S ORGANIZ ATION 07/15/2022 [employer] DATE CREATED AUTHOR AUTHOR'S ORGANIZ ATION 09/10/2022 [facility] pital DATE CREATED AUTHOR AUTHOR'S ORGANIZ ATION 02/25/2024 [facility] DATE CREATED AUTHOR AUTHOR'S ORGANIZ ATION 08/21/2024 [facility] DATE CREATED AUTHOR AUTHOR'S ORGANIZ ATION 10/03/2024 [facility] DATE CREATED AUTHOR AUTHOR'S ORGANIZ ATION 11/12/2024 [facility] EPIC REASON FOR VISIT (unrecogniz ed section and content) Reason Comments Follow-up 5 month Follow up fo r Hypertension Specialty Diagnoses / Procedures Referred By Katie bhat Referred To Contact Cardiology Diagnoses Paroxysmal atrial fibrillation (Multi) Procedures Follow Up In Cardiology Missy Khoury MD [address] [place] [address] Phone: tel: fax: Missy Khoury MD [address] [address] Phone: tel: fax: Referral ID Status Reason Start Date Expiration Date V isits Requested Visits Authorized [id number] Authorized 05/01/2024 05/01/2025 1 1 Reason Comments Annual Exam Specialty Diagnoses / Procedures Referred By Contac t Referred To Contact Diagnoses Paroxysmal atrial fibrillation ([facility]) Procedures ECG 12 Lead Epifanio Davis MD [address] [facility] [address] [place] [address] Referral ID Status Reason Start Date Expiration Date V isits Requested Visits Authorized [id number] Authorized 07/13/2023 07/12/2024 1 1 Reason Comments Follow-up Follow up after test ing Referral ID Status Reason Start Date Expiration Date V isits Requested Visits Authorized [id number] Authorized 01/13/2024 01/12/2025 1 1 Reason Comments Follow-up Add on Specialty Diagnoses / Procedures Referred By Contac t Referred To Contact Radiology Diagnoses PVC (premature ventricular contraction) 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 Ventricular arrhythmia Abnormal electrocardiogram (ECG) (EKG) Procedures Nuclear Stress Test Nuclear Stress Test CHG MYOCARDIAL SPECT MULTIPLE STUDIES Missy Khoury MD [address] [facility] [address] [place] [address] Referral ID Status Reason Start Date Expiration Date Visits Requested Visits Authorized [id number] Authorized Perform Procedure 01/13/2024 01/12/2025 5 5 Specialty Diagnoses / Procedures Referred By Contac t Referred To Contact Cardiology Diagnoses PVC (premature ventricular contraction) Paroxysmal atrial fibrillation ([facility]) Procedures Transthoracic Echo Complete NH ECHO TTHRC R-T 2D W/WOM-MODE COMPL SPEC&COLR D Missy Khoury MD [address] [facility] [address] [place] [address] Referral ID Status Reason Start Date Expiration Date Visits Requested Visits Authorized [id number] Authorized Perform Procedure 01/13/2024 01/12/2025 1 1 Reason Comments Hospital Follow-up Patient presents to[facility] for a [facility] follow up 01/10/24 for hypertension. He was in the ER the previous week for a-fib. He was started on Abiraterone recently and his BP went up consistently in the 160s. He sees cardiology Thurs for the a-fib. Reason Comments Hospital Follow-up Pt presents hospital follow up at [facility] on 05/03 for hypertension. Pt states he BP still feels elevated, although he hasn't been checking he BP at home. Pt denies chest pain, SOB or blurry vision Reason Comments Excision Reason Comments Follow-up Reason Comments Hypertension Patient's BP reading s 190/90 in the evenings. Patient was seen at [facility] 08/01/24 for hypertension and Norvasc 5mg one tab every AM was started. Had follow up ER visit with [facility] 08/04/24 Reason Comments Suture / Staple Removal Reason Comments Suspicious Skin Lesion New Problem : SCC left cheek Specialty Diagnoses / Procedures Referred By Katie t Referred To Contact Otolaryngology Diagnoses Squamous cell carcinoma of skin of face Procedures NH OFFICE/OUTPATIENT NEW HIGH MDM 60 MINUTES Laura Hensley MD [address] [place] [address] Phone: tel: fax: Juan Guzman, [address] [place] [address] Phone: tel: fax: Referral ID Status Reason Start Date Expiration Date V isits Requested Visits Authorized [id number] Closed Specialty Services Required 11/02/2024 05/01/2025 1 1 FOR RECORDS PERTAINING TO PATIENTS [...] BE BASED ON THE PRIMARY CLINICAL RECORDS. [employer] [facility]. provides no warranty or guarantee of the accuracy or completeness of information in this document.
[2024-11-13 07:54] LABS: Basophils Absolute Auto 0.1 10^3/uL (0.0-0.1); Eosinophils Absolute Auto 0.3 10^3/uL (0.0-0.7); Eosinophils Percent Auto 4.3 % (0.9-7.0); Immature Granulocytes Abs Auto 0.04 10^3/uL (0.00-0.03); Immature Granulocytes Pct Auto 0.6 % (0.0-0.5); Lymphocytes Percent Auto 28.8 % (20.5-60.0); Mean Corpuscular HGB Conc 33.3 g/dL (29.9-35.2); Mean Corpuscular Hemoglobin 30.8 pg (25.9-34.0); Mean Corpuscular Volume 92.3 fL (80.0-94.0); Mean Platelet Volume 10.5 fL (9.5-13.5); Monocytes Absolute Auto 0.6 10^3/uL (0.3-0.8); Monocytes Percent Auto 7.9 % (1.7-12.0); Neutrophils Absolute Auto 4.1 10^3/uL (1.4-6.5); Neutrophils Percent Auto 57.4 % (43.0-75.0); Platelet Count 196 10^3/uL (150-450); Red Cell Distribution Width 13.9 % (11.0-15.0); White Blood Count 7.1 10^3/uL (4.0-11.0)
[2024-11-13 08:41] LABS: Alanine Aminotransferase 22 U/L (16-63); Albumin Globulin Ratio 1.1; Albumin Level 3.3 g/dL (3.4-5.0); Alkaline Phosphatase 60 U/L (46-116); Anion Gap 12.3; Aspartate Amino Transferase 20 U/L (15-37); BUN Creatinine Ratio 21.6; Bilirubin Total 0.6 mg/dL (0.2-1.0); Calcium 8.4 mg/dL (8.5-10.1); Carbon Dioxide 27.1 mmol/L (21.0-32.0); Chloride 109 mmol/L (98-107); Estimated GFR (African America >60 (>=60 mL/min/1.73m^2); Estimated GFR (Non-African Ame >60 (>=60 mL/min/1.73m^2); Globulin 3.1 g/dL; Glucose 161 mg/dL (74-106); Potassium 3.4 mmol/L (3.5-5.1); Sodium 145 mmol/L (136-145); Total Protein 6.4 g/dL (6.4-8.2)
[2024-11-13 08:51] LABS: Prostate Specific Antigen Dx 0.72 ng/mL (<=4.00)
[2024-11-14 04:14] LABS: Testosterone <3 ng/dL (264-916)
== END 2024-11-13 07:20 | disposition home or self-care (01) ==
LOC: LAB 07:21
PROVIDERS: PCP Internal Medicine; Visit Provider Urology
DX: C61 Malignant neoplasm of prostate (principal); C79.51 Secondary malignant neoplasm of bone
CPT/HCPCS: 36415; 80053; 84153; 84403; 85025

== ENCOUNTER 2025-01-25 07:14 | Outpatient (OUT) | payer MEDICARE, SELFPAY ==
--- OUTSIDE RECORDS SUMMARY | 2011-03-03 20:00 | XMS_ITS | Continuity of Care Document ---
Author Organization [facility] Address [address] [place] [address] Phone Care Team Providers Care Biodiesel Plant Superintendent Name Role Phone Hilario Bolanos Unavailable Unavailable Procedures Procedure Date Admin influenza virus vac FLU VACC PRSV FREE INC ANTIG Admin influenza virus vac Advance Directives Directive Yes / No Effective Date File Name No Information Encounters Encounter Description Practice Location Reason(s) For Visit Diagnoses Date Provider Providers Copied on Encounter [facility], [address] [place] [address], [id number], tel:[phone] [facility] No Information Aramis WALKER Hilario. [address] [place] [address], [id number], [place]. tel:[phone] [facility], [address] [place] [address], [id number], tel:[phone] Flu No Information Aramis WALKER Hilario. [address] [place] [address], [id number], . tel:[phone] Family History Family Member Type Diagnosis Age At Onset No Information Payers Payer name Insurance type Covered constitution party ID Authoriza tion(s) Aetna Medicare Advantage BABAR [id number] Social History Type Description Quantity Date Captured [...]
--- OUTSIDE RECORDS SUMMARY | 2025-01-17 13:30 | XMS_ITS | Encounter Summary ---
Author Organization [facility] Address [address] [facility] [place] [address] Care Team Providers Care Hydroelectric Plant Technician Name Role Phone Nirav Duenas DO Unavailable [phone] Marianne Davis MD Unavailable [phone] Pierre Murdock MD Primary Care Provider [phone] Reason for Visit * Reason Comments Mohs Micrographic Surgery Encounter Details Date Type Department Care Team (Late st Contact Info) Description 01/17/2025 1:30 PM EDT Office Visit [facility] [address] [place] [phone] Cecilia Samuels MD [address] [facility] [address] [place] [address] 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 Social History Tobacco Use Types Packs/Day Years [...] Date Recorded Patient Health Questionnaire-2 Score 0 11/13/2024 Sex and Gender Information Value Date Recorded Sex Assigned at Not on file Legal Sex Male 7:06 PM EDT Gender Identity Not on file Sexual Orientation Not on file documented as of this encounter Last Filed Vital Signs Vital Sign Reading Time Taken Comments Blood Pressure 136/78 01/17/2025 3:35 PM EDT Pulse - - Temperature - - Respiratory Rate - - Oxygen Saturation - - Inhaled Oxygen Concentration - - Weight - - Height - - Body Mass Index - - documented in this encounter Progress Notes * Cecilia Samuels MD - 01/17/2025 1:30 PM EDT Images from the original note were not included. Mohs Surgery Location: Nasal tip Date of biopsy: 10/26/2024 Diagnosis: Squamous Cell Carcinoma, in situ Established patient of Charleen Hensley MD All pertinent medical history, medications, and allergies were reviewed. General Exam: alert, oriented to person, place, and time, normal affect, well appearing Unaccompanied A focused exam completed based on patient reported problems, see below: Skin Exam 1. SQUAMOUS CELL CARCINOMA IN SITU (SCCIS) OF SKIN OF NOSE Nasal tip Erythematous macule at the biopsy site Mohs surgery Consent obtained: written [place] Protocol: Procedure explained and questions answered to patient or proxy's satisfaction: Yes Test results available and properly labeled: Yes Pathology report reviewed: Yes External notes reviewed: Yes Photo or diagram used for site identification: Yes Site/side marked: Yes Slide independently reviewed by Mohs surgeon: Yes Anticoagulation: Is the patient taking prescription anticoagulant and/or aspirin prescribed/recommended by a physician? Yes Was the anticoagulation regimen changed prior to Mohs? No Anesthesia: Anesthesia method: local infiltration Local anesthetic: lidocaine 1% WITH epi and sodium bicarbonate Procedure Details: Timeout: pre-procedure verification complete Procedure Prep: patient was prepped and draped in usual sterile fashion Prep type: chlorhexidine Biopsy accession number: [id number] Biopsy lab: [facility] Date of biopsy: 10/26/2024 Frozen section biopsy performed: Yes Specimen debulked: No Pre-Op diagnosis: squamous cell carcinoma SCC subtype: in situ MohsAIQ Surgical site (if tumor spans multiple areas, please select predominant area): nose Surgery side: midline Surgical site (from skin exam): Nasal tip Pre-operative length (cm): 1 Pre-operative width (cm): 0.8 Indications for Mohs surgery: anatomic location where tissue conservation is critical and ill-defined borders Other indications for Mohs surgery: central face Mohs Appropriate Use Criteria Score: 7 Details of micrographic surgery: [facility] accession number: [id number] Micrographic Surgery Details: Post-operative length (cm): 0.9 Post-operative width (cm): 0.6 Number of Mohs stages: 2 Post surgery depth of defect: dermis Stage 1 Comments: The area was prepped with Hibiclens, draped in a sterile fashion, and infiltrated with local anesthetic. Sterile technique was used throughout the procedure. The marked area of clinical tumor with a small rim of clinically normal surrounding skin was removed using Mohs technique with beveled edges. Hash michelle were placed for orientation of the specimen. Hemostasis was achieved with electrodessication. After hemostasis, the defect was measured and recorded, a temporary sterile dressingwas placed over the wound, and the patient was escorted to the waiting area. The specimen was oriented, mapped, and if necessary, divided into sections. A Mohs map was prepared. The specimen was placed in a labeled rae dish and was taken to the Mohs lab where it was chromacoded and processed. Mohs sections were prepared with serial tissue sections, stained, and evaluated by Dr. Samuels for interpretation of deep and peripheral margins. The Mohs map was marked accordingly. Amount of lidocaine used: 1.0 cc Estimated blood loss: <1.0 mL Defect size: 0.8 x 0.5 cm Number of blocks per stage: 1 Number of positive blocks: 1 Tumor features identified on Mohs section: squamous cell carcinoma Tumor features identified on Mohs section comment: in situ with adnexal extension Depth of tumor invasion after stage: dermis Stage 2 Comments: The patient returned to the procedure room, the dressing was remove, the tumor area was re-prepped and draped, and anesthesia was assessed and augmented as necessary. A layer of tissue around the positive margin(s) was removed, and the tissue was oriented, mapped, and processed in an identical fashion as for Stage 1. Hemostasis was achieved and dressing placed as in Stage 1. The patientwas escorted to the waiting area. As with Stage 1, Mohs sections were prepared with serial tissue sections, stained, and evaluated by Dr. Talbert for interpretation of deep and peripheral margins. The Mohs map was updated. Assistants: JONO Pappas Amount of lidocaine used: 0.4 cc Estimated blood loss: <1.0 mL Defect size: 0.9 x 0.6 cm Number of blocks: 1 Number of positive blocks: 0. Tumor free margins were obtained and the Mohs procedure was considered complete. Tumor features identified on Mohs section: no tumor identified Depth of tumor invasion after stage: dermis Patient tolerance of procedure: tolerated well, no immediate complications Reconstruction: Was the defect reconstructed?: No Antibiotics: Were antibiotics given on the day of surgery?: No Mohs Post Operative Type of repair: None. Wound to heal by secondary intention. Wound Care: A dressing was placed on the surgical wound. Post-operative instructions were reviewed with the patient. A follow-up appointment was made, and instructions were given to follow-up sooner if necessary. Related Medications mupirocin (Bactroban) 2 % ointment Apply to surgical site on the nasal tip once a day until healed Next visit: as scheduled documented in this encounter Plan of Treatment Upcoming Encounters Date Type Department Care Team (Late st Contact Info) Description 04/26/2025 8:35 AM EST Office Visit [facility] [address] [place] [phone] Charleen Hensley MD [address] [place] [address] 05/21/2025 9:30 AM EST Office Visit [facility] [address] [place] [phone] documented as of this encounter Procedures Procedure Name Priority Date/Time Associated Diagnosis Comments MOHS SURGERY Routine 01/17/2025 1:19 PM EDT 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 documented in this encounter Results * Mohs surgery (01/17/2025 1:19 PM EDT) Narrative Roseann Lares MA - 01/17/2025 1:19 PM EDT Consent obtained: written [place] Protocol: Procedure explained and questions answered to patient or proxy's satisfaction: Yes Test results available and properly labeled: Yes Pathology report reviewed: Yes External notes reviewed: Yes Photo or diagram used for site identification: Yes Site/side marked: Yes Slide independently reviewed by Mohs surgeon: Yes Anticoagulation: Is the patient taking prescription anticoagulant and/or aspirin prescribed/recommended by a physician? Yes Was the anticoagulation regimen changed prior to Mohs? No Anesthesia: Anesthesia method: local infiltration Local anesthetic: lidocaine 1% WITH epi and sodium bicarbonate Procedure Details: Timeout: pre-procedure verification complete Procedure Prep: patient was prepped and draped in usual sterile fashion Prep type: chlorhexidine Biopsy accession number: [id number] Biopsy lab: [facility] Date of biopsy: 10/26/2024 Frozen section biopsy performed: Yes Specimen debulked: No Pre-Op diagnosis: squamous cell carcinoma SCC subtype: in situ MohsAIQ Surgical site (if tumor spans multiple areas, please select predominant area): nose Surgery side: midline Surgical site (from skin exam): Nasal tip Pre-operative length (cm): 1 Pre-operative width (cm): 0.8 Indications for Mohs surgery: anatomic location where tissue conservation is critical and ill-defined borders Other indications for Mohs surgery: central face Mohs Appropriate Use Criteria Score: 7 Details of micrographic surgery: Mohs accession number: [id number] Micrographic Surgery Details: Post-operative length (cm): 0.9 Post-operative width (cm): 0.6 Number of Mohs stages: 2 Post surgery depth of defect: dermis Stage 1 Comments: The area was prepped with Hibiclens, draped in a sterile fashion, and infiltrated with local anesthetic. Sterile technique was used throughout the procedure. The marked area of clinical tumor with a small rim of clinically normal surrounding skin was removed using Mohs technique with beveled edges. Hash michelle were placed for orientation of the specimen. Hemostasis was achieved with electrodessication. After hemostasis, the defect was measured and recorded, a temporary sterile dressing was placed over the wound, and the patient was escorted to the waiting area. The specimen was oriented, mapped, and if necessary, divided into sections. A Mohs map was prepared. The specimen was placed in a labeled rae dish and was taken to the Mohs lab where it was chromacoded and processed. Mohs sections were prepared with serial tissue sections, stained, and evaluated by Dr. Samuels for interpretation of deep and peripheral margins. The Mohs map was marked accordingly. Amount of lidocaine used: 1.0 cc Estimated blood loss: <1.0 mL Defect size: 0.8 x 0.5 cm Number of blocks per stage: 1 Number of positive blocks: 1 Tumor features identified on Mohs section: squamous cell carcinoma Tumor features identified on Mohs section comment: in situ with adnexal extension Depth of tumor invasion after stage: dermis Stage 2 Comments: The patient returned to the procedure room, the dressing was remove, the tumor area was re-prepped and draped, and anesthesia was assessed and augmented as necessary. A layer of tissue around the positive margin(s) was removed, and the tissue was oriented, mapped, and processed in an identical fashion as for Stage 1. Hemostasis was achieved and dressing placed as in Stage 1. The patient was escorted to the waiting area. As with Stage 1, Mohs sections were prepared with serial tissue sections, stained, and evaluated by Dr. Talbert for interpretation of deep and peripheral margins. The Mohs map was updated. Assistants: JONO Pappas Amount of lidocaine used: 0.4 cc Estimated blood loss: <1.0 mL Defect size: 0.9 x 0.6 cm Number of blocks: 1 Number of positive blocks: 0. Tumor free margins were obtained and the Mohs procedure was considered complete. 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
--- OUTSIDE RECORDS SUMMARY | 2025-01-25 07:19 | XMS_ITS | Encounter Summary ---
Author Organization [facility] Address [address] [place] [address] Care Team Providers Care Business Control Specialist Name Role Phone Nirav Duenas DO Unavailable [phone] Marianne Davis MD Unavailable [phone] Pierre Murdock MD Primary Care Provider [phone] Reason for Visit * Reason Onset Date Comments Courtesy call 01/18/2025 Encounter Details Date Type Department Care Team (Late st Contact Info) Description 01/18/2025 Telephone [facility] [place] [facility] [address] [place] [phone] Cecilia Batista LPN Courtesy call Social History Tobacco Use Types Packs/Day Years [...] encounter Miscellaneous Notes * Telephone Encounter - Cecilia Batista LPN - 01/18/2025 12:42 PM EDT LM to check on pt after Mohs yesterday. Instructed pt to call back for any questions or concerns. documented in this encounter Plan of Treatment Upcoming Encounters Date Type Department Care Team (Late st Contact Info) Description 04/26/2025 8:35 AM EST Office Visit [facility] [address] [place] [phone] Charleen Hensley MD [address] [place] [address] 05/21/2025 9:30 AM EST Office Visit [facility] [address] [place] [phone] documented as of this encounter Visit Diagnoses Not on filedocumented in this encounter Care Teams Business Control Specialist Relationship Specialty Start Date End Date Nirav Duenas DO [address] [place] [address] PCP - [employer] 05/24/20 Pierre Murdock MD [address] [place] [address] PCP - General Internal Medicine 01/01/25 Marianne Davis MD [address] [facility] [address] [place] [address] Referring Physician Cardiology 05/12/23 documented as of this encounter
--- OUTSIDE RECORDS SUMMARY | 2025-01-25 07:19 | XMS_ITS | Clinical Summary ---
Author Organization [facility] Address [address] [place] [address] Phone Care Team Providers Care Husbandry Person Name Role Phone Pierre [place] MD Primary Care Provider [phone] Allergies Active Allergy Reactions Criticality Noted Date Comments Sulfa (Sulfonamide Antibiotics) Hives 09/2023 Abiraterone Other 01/13/2024 hypertension Medications ascorbic acid, vitamin C, 500 mg capsule [...] once daily at bedtime. 05/14/20 21 Active ywcivg-cbywjlbi-l mylase (Creon) 24,000-76,000 -120,000 unit capsule Take 1 capsule by mouth 3 times daily (morning, midday, late afternoon). 11/18/19 23 Active cloNIDine (Catapres) 0.1 mg tabletIndications :Primary hypertension Take 1 tablet (0.1 mg) by mouth once daily. 90 tablet 1 10/03/19 25 2025 Active rivaroxaban (Xarelto) 20 mg tabletIndications :Paroxysmal atrial fibrillation (Multi) Take 1 tablet (20 mg) by mouth once daily. 90 tablet 1 10/03/19 25 2025 Active metoprolol succinate XL (Toprol-XL) 50 mg 24 hr tabletIndications :Primary hypertension Take 1 tablet (50 mg) by mouth 2 times a day. Do not crush or chew. 180 tablet 1 10/03/19 25 2025 Active lisinopril 20 mg tabletIndications :Primary hypertension Take 1 tablet (20 mg) by mouth 2 times a day. 180 tablet 1 10/03/19 25 2025 Active atorvastatin (Lipitor) 20 mg tabletIndications :Mixed hyperlipidemia Take 0.5 tablets (10 mg) by mouth once daily. 45 tablet 1 10/03/19 25 2025 Active amLODIPine (Norvasc) 5 mg tabletIndications :Primary hypertension Take 1 tablet (5 mg) by mouth once daily. 90 tablet 1 10/03/19 25 2025 Active vit A/vit C/vit E/zinc/copper (ICAPS AREDS ORAL) Take 1 tablet by mouth see administration instructions. 2024 Discontin ued(Thera py completed ) magnesium oxide (Mag-Ox) 400 mg (241.3 mg magnesium) tabletIndications :Paroxysmal atrial fibrillation (Multi) Take 1 tablet (400 mg) by mouth 2 times a day. 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) 05/01/2024 PVC (premature ventricular contraction) 01/13/20 24 prison current use of 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 0 01/13/2024 High risk medication use 01/13/2024 Stage 3a chronic kidney disease (Multi) 01/13/20 24 Prostate cancer (Multi) 01/13/2024 Nonrheumatic mitral valve regurgitation 01/13/20 Former smoker 07/13/2023 Primary hypertension 05/28/2023 Diabetes mellitus (Multi) 05/28/2023 Hyperlipidemia 05/28/2023 Paroxysmal atrial fibrillation (Multi) Encounters Date Type Department Care Team Description 01/09/2025 8:00 AM EDT Office Visit [address] [place] [address] Diana Angeles APRN-CNP BMI 22.0-22.9, adult (Primary Dx); Primary hypertension; 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) Discharge Disposition: Home 01/09/2025 Travel 12/26/2024 4:00 PM EDT Office Visit [place] [address] [facility] [address] [place] [address] Diana Angeles APRN-CNP Primary hypertension 12/26/2024 Travel 11/14/2024 Scanned Document [facility] [address] [place] [place] [address] Scanning, Generic Provider from Last 3 Months Immunizations Immunization Administration [...] Cigarettes Q uit: 1989 Smokeless Tobacco: Never Tobacco Cessation:Counseling Given: Not Answered Alcohol Use Standard Drinks/Week Comments Never 0 (1 standard drink = 0.6 oz pur e alcohol) Sex and Gender Information Value Date Recorded Sex Assigned at Not on file Legal Sex Male 9:56 PM EST Gender Identity Not on file Sexual Orientation Not on file Last Filed Vital Signs Vital Sign Reading Time Taken Comments Blood Pressure 140/72 01/09/2025 8:06 AM EDT Pulse 72 01/09/2025 7:53 AM EDT Temperature - - Respiratory Rate - - Oxygen Saturation - - Inhaled Oxygen Concentration - - Weight 72.9 kg (160 lb 12.8 oz) 01/09/2025 7:53 AM EDT Height 180.3 cm (5' 11 ) 01/09/2025 7:53 AM EDT Body Mass Index 22.43 01/09/2025 7:53 AM EDT Plan of Treatment Upcoming Encounters Date Type Department Care Team (Late st Contact Info) Description 07/12/2025 10:00 AM EST Office Visit [facility] [address] [facility] [address] [place] [address] Missy Khoury MD [address] [facility] [address] [place], [place] [phone] Health Maintenance Due Date Last Done Comments Diabetes: Hemoglobin A1C 1940 Diabetes: Urine Protein Screening 1940 Lipid Panel 1940 Medicare Annual Wellness Visit (AWV) 1940 Diabetes: Retinopathy Screening 1948 DTaP/Tdap/Td Vaccines (1 - Tdap) 1960 RSV High Risk: (Elderly (60+) or Population) (1 - 1-dose 75+ series) 2013 COVID-19 Vaccine ( season) 2024 03/25/2024, 04/28/2023, 04/03/2022, Additional history exists Influenza Vaccine (#1) 2025 , 03/20/2023, 03/10/2022, Additional history exists Pneumococcal Vaccine Completed 05/24/2016, 12/14/2013, 05/24/2012, Additional history exists Zoster Vaccines Completed 03/11/2019, 0805/2018, 10/10/2012 Bone Density Scan Discontinued 11/09/2023 HIB Vaccines Aged Out No longer eligi [...] patient's age to complete this topic Insurance [facility] Care Teams Husbandry Person Relationship Specialty Start Date End Date Pierre [place] MD [address] [address] PCP - General Internal Medicine 12/26/24
--- OUTSIDE RECORDS SUMMARY | 2025-01-25 07:19 | XMS_ITS | Encounter Summary ---
Author Organization [facility] Address [address] [facility] [place] [address] Care Team Providers Care French Binder Name Role Phone Nirav Duenas DO Unavailable [phone] Nirav Duenas DO Primary Care Provider + [phone] Marianne Davis MD Unavailable [phone] Pierre [place] MD Primary Care Provider [phone] Encounter Details Date Type Department Care Team (Latest Contact Info) Description 09/04/2024 [facility] [address] [facility] [address] [place] [address] Charleen Hensley MD [address] [facility] [address] [place], [place] [phone] Dermatopathology exam Social History Tobacco Use Types Packs/Day Years [...] Description 04/26/2025 8:35 AM EST Office Visit [facility] [address] [place] [address] Charleen Hensley MD [address] [place] [address] 05/21/2025 9:30 AM EST Office Visit [facility] [address] [place] [phone] documented as of this encounter Visit Diagnoses Not on filedocumented in this encounter Care Teams French Binder Relationship Specialty Start Date End Date Nirav Duenas DO [address] [place] [address] PCP - [employer]et[employer] 05/24/20 Nirav Duenas DO [address] [place] [address] PCP - General Internal Medicine 11/10/22 12/31/24 Pierre [place] MD [address] [place] [address] PCP - General Internal Medicine 01/01/25 Marianne Davis MD [address] [facility] [address] [place] [address] Referring Physician Cardiology 05/12/23 documented as of this encounter
--- OUTSIDE RECORDS SUMMARY | 2025-01-25 07:19 | XMS_ITS | Encounter Summary ---
Author Organization [facility] Address [address] [facility] [place] [address] Care Team Providers Care Nurse Receptionist Name Role Phone Nirav Duenas DO Unavailable [phone] Nirav Duenas DO Primary Care Provider + [phone] Marianne Davis MD Unavailable [phone] Pierre [place] MD Primary Care Provider [phone] Encounter Details Date Type Department Care Team (Late st Contact Info) Description 11/11/2023 Orders Only [facility] [address] [facility] [address] [place] [phone] A, Unknown Practice [address] [place], [place] [phone] Social History Tobacco Use Types Packs/Day Years [...] [address] [place] [address] Charleen Hensley MD [address] [place] [address] 05/21/2025 9:30 AM EST Office Visit [facility] [address] [place] [address] documented as of this encounter Procedures Procedure [...] on filedocumented in this encounter Care Teams Nurse Receptionist Relationship Specialty Start Date End Date Nirav Duenas DO [address] [place] [address] PCP - [employer] 05/24/20 Nirav Duenas DO [address] [place] [address] PCP - General Internal Medicine 11/10/22 12/31/24 Pierre [place] MD [address] [place] [address] PCP - General Internal Medicine 01/01/25 Marianne Davis MD [address] [facility] [address] [place] [address] Referring Physician Cardiology 05/12/23 documented as of this encounter
--- OUTSIDE RECORDS SUMMARY | 2025-01-25 07:19 | XMS_ITS | Encounter Summary ---
Author Organization [facility] Address [address] [facility] [place] [address] Care Team Providers Care Carder Blankets Name Role Phone Nirav Duenas DO Unavailable [phone] Nirav Duenas DO Primary Care Provider + [phone] Marianne [place] MD Unavailable [phone] Pierre [place] MD Primary Care Provider [phone] Encounter Details Date Type Department Care Team (Late st Contact Info) Description 11/14/2024 External Result Encounter [facility] External Department Unsolicited Juan Ventura, DO [address] [place] [address] Social History Tobacco Use Types Packs/Day Years [...] 04/26/2025 8:35 AM EST Office Visit [facility] [address] [place] [address] Charleen Hensley MD [address] [place] [address] 05/21/2025 9:30 AM EST Office Visit [facility] [address] [place] [address] documented as of this encounter Procedures Procedure Name Priority Date/Time Associated Diagnosis Comments ECG 12-LEAD 11/14/2024 1:43 PM EDT documented in this encounter Results * ECG 12 lead (11/14/2024 1:43 PM EDT) 11/14/2024 1:43 PM EDT [facility] - 11/15/2024 11:11 AM EDT [facility] Main [address] [address] Electrocardiograph Report Signed Patient: Epifanio Walsh MR#: [id number] : 1940 Acct:[id number] Age/Sex: 84 / M ADM Date: 11/14/24 Loc: [facility]: [facility]: Juan Ventura DO Ordering Provider: Juan Ventura DO Date of Service: 11/14/24 ECG/ECG 12 lead ECG: pst Copies to: Test Reason : Blood Pressure : */* mmHG Vent. Rate : 63 BPM Atrial Rate : 63 BPM P-R Int : 172 ms QRS Dur : 80 ms QT Int : 422 ms P-R-T Axes : 71 26 75 degrees QTcB Int : 431 ms Normal sinus rhythm Normal ECG When compared with ECG of 05-Dec-2021 12:32, No significant change was found Confirmed by Pablo Haque ([id number]) on 11/15/2024 11:11:14 AM Referred By: Electronically Signed By: Pablo Haque Transcribed By: MUS Signed By Pablo Haque MD 11/15/24 1111 Procedure Note John Haque MD - 11/15/2024 [facility] Main [place] [address] [place], [place] [address] Electrocardiograph Report Signed Patient: Epifanio Walsh TMR#: [id number] : 9Acct:[id number] Age/Sex: 84 / MADM Date: 11/14/24 Loc: Room:Type: [facility] Attending Dr: Juan Ventura DO Ordering Provider: Juan Ventura DO Date of Service: 11/14/24 ECG/ECG 12 lead ECG: pst Copies to: Test Reason : Blood Pressure : */* mmHG Vent. Rate : 63 BPM Atrial Rate : 63 BPM P-R Int : 172 ms QRS Dur : 80 ms QT Int : 422 ms P-R-T Axes : 71 26 75 degrees QTcB Int : 431 ms Normal sinus rhythm Normal ECG When compared with ECG of 05-Dec-2021 12:32, No significant change was found Confirmed by Pablo Haque ([id number]) on 11/15/2024 11:11:14 AM Referred By: Electronically Signed By: Pablo Haque Transcribed By: MUS Signed By Pablo Haque MD 11/15/24 1111 us Juan Ventura DO ECG ORDERABLES Final Resul t [address] [address], documented in this encounter Visit Diagnoses Not on filedocumented in this encounter Care Teams Carder Blankets Relationship Specialty Start Date End Date Nirav Duenas DO [address] [place] [address] PCP - [employer] 05/24/20 Nirav Duenas DO [address] [place] [address] PCP - General Internal Medicine 11/10/22 12/31/24 Pierre [place] MD [address] [facility] [address] [place] [address] PCP - General Internal Medicine 01/01/25 Marianne [place] MD [address] [place] [address] Referring Physician Cardiology 05/12/23 documented as of this encounter
--- OUTSIDE RECORDS SUMMARY | 2025-01-25 07:19 | XMS_ITS | Encounter Summary ---
Author Organization [facility] Address [address] [facility] [place] [address] Care Team Providers Care Block Setter Gypsum Name Role Phone Gabriel Duenas DO Unavailable [phone] Gabriel Duenas DO Primary Care Provider + [phone] Marianne [place] MD Unavailable [phone] Pierre [place] MD Primary Care Provider [phone] Encounter Details Date Type Department Care Team (Late st Contact Info) Description 11/11/2023 Clinisync Result Encounter [...] Dermatology [address] [place] [address] Charleen Hensley MD [address] [place] [address] 05/21/2025 9:30 AM EST Office Visit [facility] [address] [place] [address] documented as of this encounter Procedures Procedure Name Priority Date/Time Associated Diagnosis Comments XR DEXA AXIAL SKELETON 11/11/2023 1:42 PM EDT documented in this encounter Results * XR DEXA AXIAL SKELETON (11/11/2023 1:42 PM EDT) Anatomical Region Laterality Modality Other 11/11/2023 1:42 PM EDT Narrative 11/11/2023 1:45 PM EDT [address] [address] XRay Report Signed Patient: DEV WALSH MR#: [id number] : 1940 Acct:[id number] Age/Sex: 83 / M ADM Date: 11/09/23 Loc: [facility] Attending Dr: Non-Staff Physician M.DCassidy Ordering Physician: Physician,Non-Staff M.Siri Date of Service: 11/09/23 Procedure(s): XR DEXA axial skeleton Accession Number(s): [id number] cc: GABRIEL DUENAS ; Physician,Non-Staff M.Siri The [address] [address] Patient Name: DEV WALSH MRN: [id number] date: 1940 Sex: M Assigned Patient Location: RAD Current Patient Location: Accession/Order Number: [id number] Exam Date: 11/09/2023 15:05 Report Date: 11/11/2023 [...] prevention and treatment of osteoporosis. Osteoporos Int. 2021;33(10):2372-0301. doi: 10.1007/y15856-405-59672-g. Epub 2021Sep 18. Erratum in: Osteoporos Int. 2021Dec 18;: PMID: [id number]; PMCID: [id number]. Electronically authenticated by: KISHORE KIDD Date: 11/11/2023 13:42 Dictated By: Kishore Kidd M.D. Signed By: 11/11/23 1340 DD/ 1342 TD/TT: Nurse Assistant: Procedure Note Radiology, Radiologist, MD - 11/11/2023 [place] [address] XRay Report Signed Patient: DEV WALSH TMR#: [id number] : 1940cct:[id number] Age/Sex: 83 / MADM Date: 11/09/23 Loc: [facility] Attending Dr: Non-Staff Physician MJayme Ordering Physician: Physician,Non-Staff Cande Date of Service: 11/09/23 Procedure(s): XR DEXA axial skeleton Accession Number(s): [id number] cc: GABRIEL DUENAS ; Physician,Non-Staff Cande The [place] [id number] Patient Name: DEV WALSH MRN: [id number] date: 1940 Sex: M Assigned Patient Location: [facility] Current Patient Location: Accession/Order Number: [id number] Exam Date: 11/09/2023 15:05 Report Date: 11/11/2023 [...] 10-year hip fracture risk >= 3% or [id number] major osteoporosis-related fracture risk >= 20% (i.e., [...] to prevention and treatment of osteoporosis.Osteoporos Int. 2021;33(10):3915-3148. doi: 10.1007/q71266-487-55393-m. Ep. Erratum in: Osteoporos Int. 2021Dec 18;: PMID: 72165058; PMCID: [id number]. Electronically authenticated by: KISHORE KIDD Date: 11/11/2023 13:42 Dictated By: Kishore Kidd M.D. Signed By:11/11/23 1341 DD/ 1342 TD/TT: Nurse Assistant: us Generic External Data Provider [facility] Final Result documented in this encounter Visit Diagnoses Not on filedocumented in this encounter Care Teams Block Setter Gypsum Relationship Specialty Start Date End Date Gabriel Duenas DO [address] [place] [address] PCP - [employer] 05/24/20 Gabriel Duenas DO [address] [place] [address] PCP - General Internal Medicine 11/10/22 12/31/24 Pierre [place] MD [address] [facility] [address] [place] [address] PCP - General Internal Medicine 01/01/25 Marianne Davis MD [address] [place] [address] Referring Physician Cardiology 05/12/23 documented as of this encounter
--- OUTSIDE RECORDS SUMMARY | 2025-01-25 07:19 | XMS_ITS | Encounter Summary ---
Author Organization [facility] Address [address] [place] [address] Phone Care Team Providers Care Cardiograph Operator Name Role Phone Nirav Duenas DO Primary Care Provider [phone] Pierre [place] MD Primary Care Provider [phone] Encounter Details Date Type Department Care Team (Late st Contact Info) Description 11/14/2024 Scanned Document [facility] [address] [place] [address] Scanning, Generic Provider Social History Tobacco Use Types Packs/Day Years [...] EST Office Visit [facility] 7[address] [facility] 250 [place] [address] Missy Khoury MD [address] [facility] [address] [place], [place] [address] documented as of this encounter Visit Diagnoses Not on filedocumented in this encounter Additional Health Concerns Assessment Noted Time A fall risk assessment has been complete d for the patient 10/02/2024 11:55 AM EDT documented as of this encounter Care Teams Cardiograph Operator Relationship Specialty Start Date End Date Nirav Duenas DO [address] [place] [address] PCP - General 05/24/99 12/25/24 Pierre [place] MD [address] [place] [address] PCP - General Internal Medicine 12/26/24 documented as of this encounter
--- OUTSIDE RECORDS SUMMARY | 2025-01-25 07:19 | XMS_ITS | Encounter Summary ---
Author Organization [facility] Address [address] [facility] [place] [address] Care Team Providers Care Manager Social Name Role Phone Nirav Duenas DO Unavailable [phone] Nirav Duenas DO Primary Care Provider + [phone] Marianne [place] MD Unavailable [phone] Pierre [place] MD Primary Care Provider [phone] Encounter Details Date Type Department Care Team (Late st Contact Info) Description 12/27/2023 Orders Only [facility] [address] [facility] [address] [place] [address] A, Unknown Practice [address] [place], [place] [address] Social History Tobacco Use Types Packs/Day Years [...] [address] [place] [address] Charleen Hensley MD [address] [place] [address] 05/21/2025 9:30 AM EST Office Visit [facility] [address] [place] [address] documented as of this encounter Procedures [...] on filedocumented in this encounter Care Teams Manager Social Relationship Specialty Start Date End Date Nirav Duenas DO [address] [place] [address] PCP - [employer] 05/24/20 Nirav Duenas DO [address] [place] [address] PCP - General Internal Medicine 11/10/22 12/31/24 Pierre [place] MD [address] [place] [address] PCP - General Internal Medicine 01/01/25 Marianne Davis MD [address] [facility] [address] [place] [address] Referring Physician Cardiology 05/12/23 documented as of this encounter
--- OUTSIDE RECORDS SUMMARY | 2025-01-25 07:19 | XMS_ITS | Encounter Summary ---
Author Organization [facility] Address [address] [place] [address] Care Team Providers Care Deputy Attorney General Name Role Phone Nirav Duenas DO Unavailable [phone] Marianne [place] MD Unavailable [phone] Pierre [place] MD Primary Care Provider [phone] Reason for Visit * Reason Comments Med Refill Encounter Details Date Type Department Care Team (Late st Contact Info) Description 01/17/2025 Refill [facility] [address] [facility] [address] [place] [address] Nirav Duenas, [address] [facility] [address] [place] [address] Current mild episode of major depressive disorder without prior episode Social History Tobacco Use Types Packs/Day Years [...] encounter Miscellaneous Notes * Telephone Encounter - Lexx Santizo MA - 01/18/2025 8:05 AM EDT Rx sent documented in this encounter Plan of Treatment Upcoming Encounters Date Type Department Care Team (Late st Contact Info) Description 04/26/2025 8:35 AM EST Office Visit [facility] [address] [place] [address] Charleen Hensley MD [address] [place] [address] 05/21/2025 9:30 AM EST Office Visit [facility] [address] [place] [address] documented as of this encounter Visit Diagnoses Diagnosis Current mild episode of major depressive disorder without prior episode documented in this encounter Care Teams Deputy Attorney General Relationship Specialty Start Date End Date Nirav Duenas DO [address] [place] [address] PCP - [employer]et[employer] 05/24/20 Pierre [place] MD [address] [place] [address] PCP - General Internal Medicine 01/01/25 Marianne Davis MD 3 [facility] 250 [place] [address] Referring Physician Cardiology 05/12/23 documented as of this encounter
--- OUTSIDE RECORDS SUMMARY | 2025-01-25 07:19 | XMS_ITS | Encounter Summary ---
Author Organization [facility] Address [address] [place] [address] Care Team Providers Care Steward/Stewardess Room Name Role Phone Nirav Duenas DO Unavailable [phone] Nirav Duenas DO Primary Care Provider + [phone] Marianne Davis MD Unavailable [phone] Pierre [place] MD Primary Care Provider [phone] Encounter Details Date Type Department Care Team (Late st Contact Info) Description 12/05/2024 Results Follow-Up [facility] [address] [facility] [place] [phone] Shira Caro MA POCT urinalysis dipstick manually resulted, URINARY TRACT INFECTION (HTRX) Social History Tobacco Use Types Packs/Day Years [...] encounter Miscellaneous Notes * Telephone Encounter - Shira Caro MA - 12/05/2024 9:[address] Bajwa urine culture is negative. Finish antibiotic given and follow with PCP as directed. documented in this encounter Plan of Treatment Upcoming Encounters Date Type Department Care Team (Late st Contact Info) Description 04/26/2025 8:35 AM EST Office Visit [facility] [place] [facility] [address] [place] [address] Charleen Hensley MD [address] [place] [address] 05/21/2025 9:30 AM EST Office Visit [facility] [place] [facility] [address] [place] [address] documented as of this encounter Visit Diagnoses Not on filedocumented in this encounter Care Teams Steward/Stewardess Room Relationship Specialty Start Date End Date Nirav Duenas DO [address] [place] [address] PCP - [employer]et[employer] 05/24/20 Nirav Duenas DO [address] [place] [address] PCP - General Internal Medicine 11/10/22 12/31/24 Pierre [place] MD [address] [place] [address] PCP - General Internal Medicine 01/01/25 Marianne Davis MD 703 [facility] 250 [place] [address] Referring Physician Cardiology 05/12/23 documented as of this encounter
--- OUTSIDE RECORDS SUMMARY | 2025-01-25 07:19 | XMS_ITS | Encounter Summary ---
Author Organization [facility] Address [address] [facility] [place] [address] Care Team Providers Care Corn Breeder Name Role Phone Nirav Duenas DO Unavailable [phone] Marianne Davis MD Unavailable Pierre Murdock MD Primary Care Provider [phone] Encounter Details Date Type Department Care Team (Latest Contact Info) Description 01/17/2025 Travel Social History Tobacco Use Types Packs/Day [...] [address] [place] [phone] Charleen Hensley MD [address] [place] [address] 05/21/2025 9:30 AM EST Office Visit [facility] [address] [place] [address] documented as of this encounter Visit Diagnoses Not on filedocumented in this encounter Care Teams Corn Breeder Relationship Specialty Start Date End Date Nirav Duenas DO [address] [place] [address] PCP - [employer] 05/24/20 Pierre Murdock MD [address] [place] [address] PCP - General Internal Medicine 01/01/25 Marianne Davis MD [address]03 [facility] [address] [place] [address] Referring Physician Cardiology 05/12/23 documented as of this encounter
--- OUTSIDE RECORDS SUMMARY | 2025-01-25 07:19 | XMS_ITS | Encounter Summary ---
Author Organization [facility] Address [address] [place] [address] Care Team Providers Care Chemist Pharmaceutical Name Role Phone Unavailable Primary Care Provider Unavailabl e Source Comments In the event this information is protected by the Federal Confidentiality of Alcohol and Drug AbusePatient Records regulations: The Federal rules restrict any use of the information to criminally investigate or prosecute any alcohol or drug abuse patient.[facility] Encounter Details Date Type Department Care Team (Late st Contact Info) Description 01/15/2025 Lab Requisition [facility] [address] [place] [address] [place] [address] [id number] Anemia, unspecified Social History Tobacco Use Types Packs/Day Years Used Date Smoking Tobacco: Never Assessed Sex and Gender Information Value Date Recorded Sex Assigned at Not on file Legal Sex Male 9:46 AM EST Gender Identity Not on file Sexual Orientation Not on file documented as of this encounter Plan of Treatment Not on file documented as of this encounter Procedures Procedure Name Priority Date/Time Associated Diagnosis Comments CBC + DIFF Routine 01/15/2025 2:00 PM EDT Anemia, unspecified documented in this encounter Results * COMPLETE BLOOD COUNT AND DIFFERENTIAL (01/15/2025 2:00 PM EDT) WBC 8.74 3.70 - 11.00 k/uL 01/15/2025 11:03 PM EDT [facility] RBC 4.32 4.20 - 6.00 m/uL 01/15/2025 11:03 PM EDT [facility] Hemoglobin 13.3 13.0 - 17.0 g/dL 01/15/2025 11:03 PM EDT [facility] Hematocrit 41.2 39.0 - 51.0 % 01/15/2025 11:03 PM EDT [facility] MCV 95.4 80.0 - 100.0 fL 01/15/2025 11:03 PM EDT [facility] MCH 30.8 26.0 - 34.0 pg 01/15/2025 11:03 PM EDT [facility] MCHC 32.3 30.5 - 36.0 g/dL 01/15/2025 11:03 PM EDT [facility] RDW-CV 13.8 11.5 - 15.0 % 01/15/2025 11:03 PM EDT [facility] Platelet Count 204 150 - 400 k/uL 01/15/2025 11:03 PM EDT [facility] MPV 11.2 9.0 - 12.7 fL 01/15/2025 11:03 PM EDT [facility] Neutrophils % 71.7 % 01/15/2025 11:03 PM EDT [facility] Abs Neut 6.26 1.45 - 7.50 k/uL 01/15/2025 11:03 PM EDT [facility] Lymphocytes % 20.0 % 01/15/2025 11:03 PM EDT [facility] Abs Lymph 1.75 1.00 - 4.00 k/uL 01/15/2025 11:03 PM EDT [facility] Monocytes % 5.8 % 01/15/2025 11:03 PM EDT [facility] Abs [place] 0.51 <0.87 k/uL 01/15/2025 11:03 PM EDT [facility] Eosinophils % 0.9 % 01/15/2025 11:03 PM EDT [facility] Abs Eosin 0.08 <0.46 k/uL 01/15/2025 11:03 PM EDT [facility] Basophils % 1.0 % 01/15/2025 11:03 PM EDT [facility] Abs Baso 0.09 <0.11 k/uL 01/15/2025 11:03 PM EDT [facility] Immature Granulocytes % 0.6 % 01/15/2025 11:03 PM EDT [facility] Abs Immature Gran 0.05 <0.10 k/uL 025 11:03 PM EDT [facility] NRBC 0.0 /100 WBC 01/15/2025 11:03 PM EDT [facility] Absolute nRBC <0.01 <0.01 k/uL 01/15/2025 11:03 PM EDT [facility] Diff Type Auto 01/15/2025 11:03 PM EDT [facility] Blood BLOOD SPECIMEN / Unknown 01/15/2025 2:00 PM EDT 01/15/2025 9:37 PM EDT us Dorian Morgan MD LABORATORY Final Result [facility] [address] [address], documented in this encounter Visit Diagnoses Diagnosis Anemia, unspecified documented in this encounter
--- OUTSIDE RECORDS SUMMARY | 2025-01-25 07:19 | XMS_ITS | Encounter Summary ---
Author Organization [facility] Address [address] [place] [address] Care Team Providers Care Distribution Field Engineer Name Role Phone Nirav Duenas DO Unavailable [phone] Nirav Duenas DO Primary Care Provider + [phone] Marianne Davis MD Unavailable [phone] Pierre Murdock MD Primary Care Provider [phone] Encounter Details Date Type Department Care Team (Late st Contact Info) Description 03/16/2023 Orders Only [facility] [address] [facility] [address] [place] [phone] A, Unknown Practice [address] [place], [place] [phone] Social History Tobacco Use Types Packs/Day Years [...] Dermatology [address] [place] [address] Charleen Hensley MD [address] [place] [address] 05/21/2025 9:30 AM EST Office Visit [facility] [place] [facility] [address] [place] [phone] documented as of this encounter Procedures Procedure Name Priority Date/Time Associated Diagnosis Comments DIABETES EYE EXAM Routine 03/16/2023 4:12 PM EDT documented in this encounter Results * Diabetes Eye Exam (03/16/2023 4:12 PM EDT) us Unknown Practice A HEALTH MAINTENANCE Final Resu lt documented in this encounter Visit Diagnoses Not on filedocumented in this encounter Care Teams Distribution Field Engineer Relationship Specialty Start Date End Date Nirav Duenas DO [address] [place] [address] PCP - [employer] 05/24/20 Nirav Duenas DO [address] [place] [address] PCP - General Internal Medicine 11/10/22 12/31/24 Pierre Murdock MD [address] [place] [address] PCP - General Internal Medicine 01/01/25 Marianne Davis MD 3 [facility] [address] [place] [address] Referring Physician Cardiology 05/12/23 documented as of this encounter
--- OUTSIDE RECORDS SUMMARY | 2025-01-25 07:19 | XMS_ITS | Encounter Summary ---
Author Organization [facility] Address [address] [facility] [place] [address] Care Team Providers Care Manager Work Name Role Phone Nirav Duenas DO Unavailable [phone] Nirav Duenas DO Primary Care Provider + [phone] Marianne Davis MD Unavailable [phone] Pierre Murdock MD Primary Care Provider [phone] Encounter Details Date Type Department Care Team (Late st Contact Info) Description 11/10/2022 Orders Only [facility] [address] [facility] [address] [place] [phone] Provider, MD Wing [address] [place] [address] Social History Tobacco Use Types Packs/Day Years [...] Upcoming Encounters Date Type Department Care Team ([facility] st Contact Info) Description 04/26/2025 8:35 AM EST Office Visit [facility] [address] [place] [phone] Charleen Hensley MD [address] [place] [address] 05/21/2025 9:30 AM EST Office Visit [facility] [address] [place] [phone] documented as of this encounter Procedures Procedure Name Priority Date/Time Associated Diagnosis Comments HM COLONOSCOPY Routine 12/16/2015 3:00 PM EDT documented in this encounter Results * Hm Colonoscopy (12/16/2015 3:00 PM EDT) Anatomical Region Laterality Modality Other us Historical Provider HEALTH MAINTENANCE Final Result documented in this encounter Visit Diagnoses Not on filedocumented in this encounter Care Teams Manager Work Relationship Specialty Start Date End Date Nirav Duenas DO [address] [place] [address] PCP - [employer] 05/24/20 Nirav Duenas DO [address] [place] [address] PCP - General Internal Medicine 11/10/22 12/31/24 Pierre Murdock MD [address] [place] [address] PCP - General Internal Medicine 01/01/25 Marianne Davis MD 703 [facility] [address] [place] [address] Referring Physician Cardiology 05/12/23 documented as of this encounter
--- OUTSIDE RECORDS SUMMARY | 2025-01-25 07:19 | XMS_ITS | Clinical Summary ---
Author Organization [facility] Address [address] [place] [address] Care Team Providers Care Diamond Cleaver Name Role Phone Unavailable Primary Care Provider Unavailabl e Encounters Date Type Department Care Team Description 01/15/2025 Lab Requisition [facility] [address] [place] [address] Dorian Morgan MD Anemia, unspecified from Last 3 Months Social History Tobacco Use Types Packs/Day Years Used Date Smoking Tobacco: Never Assessed Sex and Gender Information Value Date Recorded Sex Assigned at Not on file Legal Sex Male 9:46 AM EST Gender Identity Not on file Sexual Orientation Not on file Plan of Treatment Health Maintenance Due Date Last Done Comments Anxiety Screening 1958 Depression Screening 1958 DTaP,Tdap,Td Vaccine (1 - Tdap) 1957 Diabetes Screening 1983 Pneumococcal Vaccine: 50+ (1 of 1 - PCV) 1988 Shingrix Vaccine (1 of 2) 1988 RSV Vaccine (1 - 1-dose 75+ series) 2013 Advance Directive Discussion 05/24/2024 Influenza Vaccine (#1) 2025 Procedures Procedure Name Priority Date/Time Associated Diagnosis Comments CBC + DIFF Routine 01/15/2025 2:00 PM EDT Anemia, unspecified from Last 3 Months Results * COMPLETE BLOOD COUNT AND DIFFERENTIAL (01/15/2025 2:00 PM EDT) WBC 8.74 3.70 - 11.00 k/uL 01/15/2025 11:03 PM EDT [facility] RBC 4.32 4.20 - 6.00 m/uL 01/15/2025 11:03 PM EDT [facility] Hemoglobin 13.3 13.0 - 17.0 g/dL 01/15/2025 11:03 PM EDT [facility] Hematocrit 41.2 39.0 - 51.0 % 01/15/2025 11:03 PM EDT [facility] MCV 95.4 80.0 - 100.0 fL 01/15/2025 11:03 PM EDT [facility] MCH 30.8 26.0 - 34.0 pg 01/15/2025 11:03 PM EDT [facility] MCHC 32.3 30.5 - 36.0 g/dL 01/15/2025 11:03 PM EDT [facility] RDW-CV 13.8 11.5 - 15.0 % 01/15/2025 11:03 PM EDT [facility] Platelet Count 204 150 - 400 k/uL 01/15/2025 11:03 PM EDT [facility] MPV 11.2 9.0 - 12.7 fL 01/15/2025 11:03 PM EDT [facility] Neutrophils % 71.7 % 01/15/2025 11:03 PM EDT [facility] Abs Neut 6.26 1.45 - 7.50 k/uL 01/15/2025 11:03 PM EDT [facility] Lymphocytes % 20.0 % 01/15/2025 11:03 PM EDT [facility] Abs Lymph 1.75 1.00 - 4.00 k/uL 01/15/2025 11:03 PM EDT [facility] Monocytes % 5.8 % 01/15/2025 11:03 PM EDT [facility] Abs [place] 0.51 <0.87 k/uL 01/15/2025 11:03 PM EDT [facility] Eosinophils % 0.9 % 01/15/2025 11:03 PM EDT [facility] Abs Eosin 0.08 <0.46 k/uL 01/15/2025 11:03 PM EDT [facility] Basophils % 1.0 % 01/15/2025 11:03 PM EDT [facility] Abs Baso 0.09 <0.11 k/uL 01/15/2025 11:03 PM EDT [facility] Immature Granulocytes % 0.6 % 01/15/2025 11:03 PM EDT [facility] Abs Immature Gran 0.05 <0.10 k/uL 025 11:03 PM EDT [facility] NRBC 0.0 /100 WBC 01/15/2025 11:03 PM EDT [facility] Absolute nRBC <0.01 <0.01 k/uL 01/15/2025 11:03 PM EDT [facility] Diff Type Auto 01/15/2025 11:03 PM EDT [facility] Blood BLOOD SPECIMEN / Unknown 01/15/2025 2:00 PM EDT 01/15/2025 9:37 PM EDT us Dorian Morgan MD LABORATORY Final Result [facility] [address] [place] [id number], from Last 3 Months Insurance [employer] MEDICARE
--- OUTSIDE RECORDS SUMMARY | 2025-01-25 07:19 | XMS_ITS | Encounter Summary ---
Author Organization [facility] Address [address] [place] [address] Care Team Providers Care Attendant Lodging Facilities Name Role Phone Nirav Duenas DO Unavailable [phone] Marianne Davis MD Unavailable [phone] Pierre Murdock MD Primary Care Provider [phone] Encounter Details Date Type Department Care Team (Late st Contact Info) Description 01/17/2025 Bamboo flowsheet [facility] [address] [facility] [address] [place] [phone] Cecilia Samuels MD [address] [facility] [address] [place] [address] Social History Tobacco Use Types Packs/Day Years [...] Description 04/26/2025 8:35 AM EST Office Visit [facility] [place] [facility] [address] [place] [phone] Charleen Hensley MD [address] [place] [address] 05/21/2025 9:30 AM EST Office Visit [facility] [place] [facility] [address] [place] [phone] documented as of this encounter Visit Diagnoses Not on filedocumented in this encounter Care Teams Attendant Lodging Facilities Relationship Specialty Start Date End Date Nirav Duenas DO [address] [place] [address] PCP - [employer] 05/24/20 Pierre Murdock MD [address] [place] [address] PCP - General Internal Medicine 01/01/25 Marianne Davis MD [address] [facility] [address] [place] [address] Referring Physician Cardiology 05/12/23 documented as of this encounter
--- OUTSIDE RECORDS SUMMARY | 2025-01-25 07:19 | XMS_ITS | Encounter Summary ---
Author Organization [facility] Address [address] [place] [place] [address] Care Team Providers Care Trailer Body Assembler Name Role Phone Nirav Duenas DO Unavailable [phone] Nirav Duenas DO Primary Care Provider [phone] Marianne Davis MD Unavailable [phone] Pierre Murdock MD Primary Care Provider [phone] Encounter Details Date Type Department Care Team (Late st Contact Info) Description 12/24/2022 Orders Only [facility] [address] [facility] [address] [place] [phone] A, Unknown Practice [address] [place], [place] [phone] Social History Tobacco Use Types Packs/Day Years [...] [address] [place] [phone] Charleen Hensley MD [address] [place] [address] 05/21/2025 9:30 AM EST Office Visit [facility] [place] [facility] [address] [place] [phone] documented as of this encounter Procedures Procedure Name Priority Date/Time Associated Diagnosis Comments COLONOSCOPY Routine 12/24/2022 1:49 PM EDT documented in this encounter Results * Colonoscopy (12/24/2022 1:49 PM EDT) Anatomical Region Laterality Modality Endoscopy us Unknown Practice A ENDOSCOPY PROCEDURE ORDERABLE S Final Result documented in this encounter Visit Diagnoses Not on filedocumented in this encounter Care Teams Trailer Body Assembler Relationship Specialty Start Date End Date Nirav Duenas DO [address] [place] [address] PCP - [employer] 05/24/20 Nirav Duenas DO [address] [place] [address] PCP - General Internal Medicine 11/10/22 12/31/24 Pierre Murdock MD [address] [place] [address] PCP - General Internal Medicine 01/01/25 Marianne Davis MD 3 [facility] [address] [place] [address] Referring Physician Cardiology 05/12/23 documented as of this encounter
--- OUTSIDE RECORDS SUMMARY | 2025-01-25 07:20 | XMS_ITS | Encounter Summary ---
Author Organization [facility] Address [address] [facility] [place] [address] Care Team Providers Care Sas Analyst Name Role Phone Nirav Duenas DO Unavailable [phone] Nirav Duenas DO Primary Care Provider + [phone] Marianne Davis MD Unavailable [phone] Pierre Murdock MD Primary Care Provider [phone] Encounter Details Date Type Department Care Team (Late st Contact Info) Description 02/07/2024 Clinisync Result Encounter [...] Description 04/26/2025 8:35 AM EST Office Visit [facility] D[facility]at[facility] [address] [place] [address] Charleen Hensley MD [address] [place] [address] 05/21/2025 9:30 AM EST Office Visit [facility] [address] [place] [address] documented as of this encounter [...] TEST WITH EXERCISE Performing facility: [facility], [address] [place] [address], [address], [place] [address] [facility] Provider: Missy Carvalho MD, FACC PCP: Dr. Trang Duenas Supervising provider: Marina Goldsmith MD INDICATION: Abnormal EKG; PVC Murmur HISTORY: Gender: M; Age: 83 y/o ; Height: HT 180.3 cm cm; Weight: WT 77.111 kg kg. Abnormal EKG; High Cholesterol; Diabetes; HTN; Arrhythmias; A-fib Quit smoking 34 years ago. COMPARISON: Previous nuclear testing completed [id number] at [facility]. ACCESSION NUMBER(S): [id number] ORDERING CLINICIAN: MISSY CARVALHO TECHNIQUE: ONE DAY [...] Clarissa Sanchez 02/07/2024 4:47 PM Dictation workstation: [id number] Procedure Note Radiology, Radiologist, MD - 02/07/2024 Start with exercise, may switch to alfonso Interpreted By: Clarissa Sanchez and Giannuzzi Michael STUDY: MYOCARDIAL PERFUSION STRESS TEST WITH EXERCISE Performing facility: [facility], [address] [place] [address], [address], [place] [address] [facility] Provider: Missy Carvalho MD, FACC PCP: Dr. Trang Duenas Supervising provider: Marina Goldsmith MD INDICATION: Abnormal EKG; PVC Murmur HISTORY: Gender: M; Age: 83 y/o ; Height: HT 180.3 cm cm; Weight: WT 77.111 kg kg. Abnormal EKG; High Cholesterol; Diabetes; HTN; Arrhythmias; A-fib Quit smoking 34 years ago. COMPARISON: Previous nuclear testing completed [id number] at [facility]. ACCESSION NUMBER(S): [id number] ORDERING CLINICIAN: MISSY CARVALHO TECHNIQUE: ONE DAY [...] Clarissa Sanchez 02/07/2024 4:47 PM Dictation workstation: [id number] us Generic External Data Provider IMG XR PROCEDURES Final Result documented in this encounter Visit Diagnoses Not on filedocumented in this encounter Care Teams Sas Analyst Relationship Specialty Start Date End Date Nirav Duenas DO [address] [place] [address] PCP - [employer] 05/24/20 Nirav Duenas DO [address] [place] [address] PCP - General Internal Medicine 11/10/22 12/31/24 Pierre Murdock MD [address] [facility] [address] [place] [address] PCP - General Internal Medicine 01/01/25 Marianne Davis MD [address] [address] Referring Physician Cardiology 05/12/23 documented as of this encounter
--- OUTSIDE RECORDS SUMMARY | 2025-01-25 07:20 | XMS_ITS | Encounter Summary ---
Author Organization [facility] Address [address] [facility] [place] [address] Care Team Providers Care Operations Section Manager Name Role Phone Nirav Duenas DO Unavailable [phone] Nirav Duenas DO Primary Care Provider + [phone] Marianne Davis MD Unavailable [phone] Pierre Murdock MD Primary Care Provider [phone] Encounter Details Date Type Department Care Team (Late st Contact Info) Description 02/21/2024 Clinisync Result Encounter [...] [address] [place] [address] Charleen Hensley MD [address] [place] [address] 05/21/2025 9:30 AM EST Office Visit [facility] [address] [place] [address] documented as of this encounter Procedures Procedure Name Priority Date/Time Associated Diagnosis Comments TRANSTHORACIC ECHO (TTE) COMPLETE 02/21/2024 8:03 AM EDT documented in this encounter Results * Transthoracic echo (TTE) complete (02/21/2024 8:03 AM EDT) Anatomical Region Laterality Modality Ultrasound 02/21/2024 8:03 AM EDT Narrative 02/21/2024 2:06 PM EDT [address], [address] [place] [address] TRANSTHORACIC ECHOCARDIOGRAM REPORT Patient Name: DEV Kim Physician: [id number] Marina Goldsmith MD Study Date: 02/21/2024 Ordering Provider: [id number] ASHLEY CARVALHO MRN/PID: [id number] Fellow: Nurse: Date of /Age: 1 1940 / 83 years Monotypist: Jyoti Gutiérrez RD, T Gender: M Additional Staff: Height: 180.34 cm Admit Date: Weight: 77.11 kg Admission Status: BSA / BMI: 1.97 m2 / 23.71 kg/m2 Department Location: 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 [address] [facility], [address], [place] [address] TRANSTHORACIC ECHOCARDIOGRAM REPORT Patient Name: DEV WALSH Reading Physician: [id number] NixoniMD Study Date: 02/21/2024 Ordering Provider: CHARLETTE CARVALHO MRN/PID: [id number] Fellow: Nurse: Date of /Age: 1 1940 / 83 years Monotypist: Sherine ZARAGOZA RVT Gender: M Additional Staff: Height: 180.34 cm Admit Date: Weight: 77.11 kg Admission Status: BSA / BMI: 1.97 m2 / 23.71 kg/m2 Department Location: [facility] Blood Pressure: 142 /84 mmHg Study Type: TRANSTHORACIC ECHO (TTE) COMPLETE Diagnosis/ICD: 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; Paroxysmalatrial fibrillation-I48.0 Indication: Diabetes, HTN, Hyperlipidemia, Murmur, Former Smoker,Prostate Cancer with Metastases, CKD-Stage III CPT Codes: Echo Complete w Full Doppler-[id number] Study Detail: The following Echo studies were [...] mmHg PIEDV: 2.08 m/s PADP: 20.3 mmHg [id number] Marina Goldsmith MD Electronically signed on 02/21/2024 at 2:06:09 PM Final us Generic External Data Provider CV ECHO PROCEDURE S Final Result documented in this encounter Visit Diagnoses Not on filedocumented in this encounter Care Teams Operations Section Manager Relationship Specialty Start Date End Date Nirav Duenas DO [address] [place] [address] PCP - [employer] 05/24/20 Nirav Duenas DO [address] [facility] [address] [place] [address] PCP - General Internal Medicine 11/10/22 12/31/24 Pierre Murdock MD [address] [facility] [address] [place] [address] PCP - General Internal Medicine 01/01/25 Marianne Davis MD [address] [address] Referring Physician Cardiology 05/12/23 documented as of this encounter
--- OUTSIDE RECORDS SUMMARY | 2025-01-25 07:20 | XMS_ITS | Encounter Summary ---
Author Organization [facility] Address [address] [facility] [[email or web address]] [place] [address] Care Team Providers Care Melt Supervisor Name Role Phone Nirav Duenas DO Unavailable [phone] Nirav Duenas DO Primary Care Provider + [phone] Marianne Davis MD Unavailable [phone] Pierre Murdock MD Primary Care Provider [phone] Encounter Details Date Type Department Care Team (Late st Contact Info) Description 05/12/2023 Orders Only [facility] [address] [facility] [address] [place] [phone] A, Unknown Practice [address] [place], [place] [phone] Social History Tobacco Use Types Packs/Day Years [...] Not at all 05/12/2023 8:00 AM Margaret Butler, TIEN Feeling down, depressed, or hopeless Not at all 05/12/2023 8:00 AM Margaret Butler RN Patient Health Questionnaire -2 Score 0 05/12/2023 8:00 AM Margaret Butler RN documented as of this encounter Plan of Treatment Upcoming Encounters Date Type Department Care Team (Late st Contact Info) Description 04/26/2025 8:35 AM EST Office Visit [facility] [place] [address] [place] [phone] Charleen Hensley MD [address] [place] [address] 05/21/2025 9:30 AM EST Office Visit [facility] [place] [facility] [address] [place] [phone] documented as of this encounter Procedures Procedure [...] on filedocumented in this encounter Care Teams Melt Supervisor Relationship Specialty Start Date End Date Nirav Duenas DO [address] [place] [address] PCP - [employer] 05/24/20 Nirav Duenas DO [address] [place] [address] PCP - General Internal Medicine 11/10/22 12/31/24 Pierre Murdock MD [address] [place] [address] PCP - General Internal Medicine 01/01/25 Marianne Davis MD [address] [place] [address] Referring Physician Cardiology 05/12/23 documented as of this encounter
--- OUTSIDE RECORDS SUMMARY | 2025-01-25 07:20 | XMS_ITS | Encounter Summary ---
Author Organization [facility] Address [address] [facility] [place] [address] Care Team Providers Care Captain Of Guards Name Role Phone Nirav Duenas DO Unavailable [phone] Nirav Duenas DO Primary Care Provider + [phone] Marianne Davis MD Unavailable [phone] Pierre Murdock MD Primary Care Provider [phone] Encounter Details Date Type Department Care Team (Late st Contact Info) Description 09/30/2023 Orders Only [facility] [place] [facility] [address] [facility] [address] [place] [address] A, Unknown Practice [address] [place], [place] [phone] Social History Tobacco Use Types Packs/Day Years [...] Office Visit [facility] [address] [facility] [address] [place] [address] Charleen Hensley MD [address] [place] [address] 05/21/2025 9:30 AM EST Office Visit [facility] [place] [facility] [address] [place] [phone] documented as of this encounter Procedures Procedure [...] on filedocumented in this encounter Care Teams Captain Of Guards Relationship Specialty Start Date End Date Nirav Duenas DO [address] [facility] [address] [place] [address] PCP - [employer] 05/24/20 Nirav Duenas DO [address] [facility] [address] [place] [address] PCP - General Internal Medicine 11/10/22 12/31/24 Pierre Murdock MD [address] [facility] [address] [facility] [address] [place] [address] PCP - General Internal Medicine 01/01/25 Marianne Davis MD [address] [address] Referring Physician Cardiology 05/12/23 documented as of this encounter
--- OUTSIDE RECORDS SUMMARY | 2025-01-25 07:20 | XMS_ITS | Encounter Summary ---
Author Organization [facility] Address [address] [place] [address] Care Team Providers Care Package Dyer Name Role Phone Nirav Duenas DO Unavailable [phone] Nirav Duenas DO Primary Care Provider + [phone] Marianne Davis MD Unavailable [phone] Pierre Murdock MD Primary Care Provider [phone] Encounter Details Date Type Department Care Team (Late st Contact Info) Description 03/17/2024 Orders Only [facility] [place] [facility] [address] [facility] [address] [place] [phone] A, Unknown Practice [address] [place], [place] [phone] Social History Tobacco Use Types Packs/Day Years [...] [address] [place] [phone] Charleen Hensley MD [address] [place] [address] 05/21/2025 9:30 AM EST Office Visit [facility] [...] on filedocumented in this encounter Care Teams Package Dyer Relationship Specialty Start Date End Date Nirav Duenas DO [address] [place] [address] PCP - [employer] 05/24/20 Nirav Duenas DO [address] [place] [address] PCP - General Internal Medicine 11/10/22 12/31/24 Pierre Murdock MD [address] [place] [address] PCP - General Internal Medicine 01/01/25 Marianne Davis MD NPI: [id number] [place] [id number] Referring Physician Cardiology 05/12/23 documented as of this encounter
--- OUTSIDE RECORDS SUMMARY | 2025-01-25 07:20 | XMS_ITS | Encounter Summary ---
Author Organization [facility] Address [address] [facility] [place] [place] [address] Care Team Providers Care Chief Psychology Name Role Phone Nirav Duenas DO Unavailable [phone] Nirav Duenas DO Primary Care Provider + [phone] Marianne Davis MD Unavailable [phone] Pierre Murdock MD Primary Care Provider [phone] Encounter Details Date Type Department Care Team (Late st Contact Info) Description 01/11/2024 Orders Only [facility] [place] [facility] [address] [facility] [address] [place] [phone] A, Unknown Practice [address] [place], [place] [phone] Social History Tobacco Use Types Packs/Day Years [...] Dermatology [address] [place] [phone] Charleen Hensley MD [address] [place] [address] 05/21/2025 9:30 AM EST Office Visit [facility] [place] [facility] [address] [place] [phone] documented as of this encounter Procedures Procedure [...] on filedocumented in this encounter Care Teams Chief Psychology Relationship Specialty Start Date End Date Nirav Duenas DO [address] [place] [address] PCP - [employer] 05/24/20 Nirav Duenas DO [address] [facility] [address] [place] [address] PCP - General Internal Medicine 11/10/22 12/31/24 Pierre Murdock MD [address] [place] [address] PCP - General Internal Medicine 01/01/25 Marianne Davis MD [address] [address] Referring Physician Cardiology 05/12/23 documented as of this encounter
--- OUTSIDE RECORDS SUMMARY | 2025-01-25 07:20 | XMS_ITS | Encounter Summary ---
Author Organization [facility] Address [address] [place] [address] Care Team Providers Care Wheat Grower Name Role Phone Nirav Duenas DO Unavailable [phone] Nirav Duenas DO Primary Care Provider + [phone] Marianne Davis MD Unavailable [phone] Pierre Murdock MD Primary Care Provider [phone] Encounter Details Date Type Department Care Team (Late st Contact Info) Description 05/06/2023 Orders Only [facility] [place] [facility] [address] [facility] [address] [place] [phone] A, Unknown Practice [address] [place], [place] [phone] Social History Tobacco Use Types Packs/Day Years [...] [facility] [place] [address] [place] [phone] Charleen Hensley MD [address] [facility] [address] [facility] [address] [place] [address] 05/21/2025 9:30 AM EST Office Visit [facility] [place] [facility] [address] [facility] [address] [place] [phone] documented as of this encounter Procedures Procedure [...] on filedocumented in this encounter Care Teams Wheat Grower Relationship Specialty Start Date End Date Nirav Duenas DO [address] [facility] [address] [place] [address] PCP - [employer] 05/24/20 Nirav Duenas DO [address] [facility] [address] [place] [address] PCP - General Internal Medicine 11/10/22 12/31/24 Pierre Murdock MD [address] [facility] [address] [place] [address] PCP - General Internal Medicine 01/01/25 Marianne Davis MD [address] [facility] [address] [place] [address] Referring Physician Cardiology 05/12/23 documented as of this encounter
--- OUTSIDE RECORDS SUMMARY | 2025-01-25 07:20 | XMS_ITS | Clinical Summary ---
Author Organization [facility] Healthcare Address [address] [place] [address] Care Team Providers Care Quarry Supervisor Name Role Phone Nirav Duenas DO Unavailable Marianne Davis MD Unavailable [phone] Pierre Murdock MD Primary Care Provider [phone] Allergies Active Allergy Reactions Criticality Noted Date [...] atorvastatin (Lipitor) 20 MG tabletIndications: Mixed hyperlipidemia TAKE 1 TABLET AT NIGHT 90 tablet 3 01/06/20 24 Active lisinopril 20 MG tabletIndications: Primary hypertension Take 1 tablet (20 mg) by mouth in the morning and 1 tablet (20 mg) before bedtime. 180 tablet 3 04/06/20 24 Active denosumab (Xgeva) 120 MG/1.7ML injection Inject 120 mg under the skin every 3 (three) months Active cloNIDine (Catapres) 0.1 MG tabletIndications: Primary hypertension,PAF (paroxysmal atrial fibrillation) (HCC),Chest pain, unspecified type Take 1 tablet (0.1 mg) by mouth 2 (two) times a day as needed for high blood pressure 180 tablet 1 05/22/20 24 Active pancrelipase, Nvk-Ibnz-Zmus, (Creon) 10803-21879 units capsuleIndications :Malignant neoplasm of prostate (HCC),Exocrine pancreatic insufficiency (HCC) TAKE 1 CAPSULE IN THE MORNING, 1 CAPSULE AT NOON AND 1 CAPSULE IN THE EVENING WITH MEALS 360 capsule 2 07/03/19 25 Active amLODIPine (Norvasc) 5 MG tabletIndications: Primary hypertension Take 1 tablet (5 mg) [...] cramps) 120 tablet 3 10/06/19 25 Active fluorouracil (Efudex) 5 % creamIndications:A ctinic keratosis Apply to directed areas on the face, and backs of hands twice a day x 14 days. 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 01/13/2024 11/09/2024 Nonrheumatic mitral valve regurgitation 01/13/2024 11/09/2024 Prostate cancer 01/13/2024 11/09/2024 Former smoker 07/13/2023 11/09/2024 Encounters Date Type Department Care Team Description 01/18/2025 Telephone [facility] [address] [place] [address] Cecilia Batista LPN Courtesy call 01/17/2025 1:30 PM EDT Office Visit [facility] [address] [place] [address] Cecilia Samuels MD 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 [facility] [address] [place] [address] Nirav Duenas DO Current mild episode of major depressive disorder without prior episode 01/17/2025 Bamboo flowsheet [facility] [address] [place] [address] Cecilia Samuels MD 01/17/2025 Travel 12/07/2024 8:45 AM EDT Office Visit [facility] [place] [facility] [address] [place] [address] Charleen Hensley MD Actinic keratosis (Primary Dx); Spitting suture, initial encounter 12/07/2024 Bamboo flowsheet [facility] [address] [place] [address] Charleen Hensley MD 12/07/2024 Travel 12/05/2024 Results Follow-Up [facility] [address] [place] [address] Shira Caro MA POCT urinalysis dipstick manually resulted, URINARY TRACT INFECTION (HTRX) 12/03/2024 9:30 AM EDT [facility] [address] [place] [address] Jaqui Bear, RADHA Acute cystitis with hematuria (Primary Dx); Dysuria 12/03/2024 Travel 11/27/2024 10:15 AM EDT [facility] [address] [place] [address] Juan Ventura DO Squamous cell carcinoma of skin of face (Primary Dx); Chronic anticoagulation 11/27/2024 Bamboo flowsheet [facility] [place] [facility] [address] [place] [place] [address] Juan Ventura DO 11/27/2024 Travel 11/20/2024 External Result Encounter [facility] External Department Unsolicited Juan Ventura, DO 11/20/2024 External Result Encounter [facility] External Department Unsolicited Juan Ventura, DO 11/14/2024 9:30 AM EDT Office Visit [facility] [place] [facility] [address] [place] [address] Nirav Duenas DO Stage 3a chronic kidney disease (CMS-HCC) (Primary Dx); Type 2 diabetes mellitus with other specified complication, without long-term current use of insulin (HCC); Primary hypertension ; PAF (paroxysmal atrial fibrillation) (HCC); Mixed hyperlipidemia ; Medicare annual wellness visit, subsequent; Advance care planning 11/14/2024 External Result Encounter [facility] External Department Unsolicited Juan Ventura, DO 11/14/2024 Travel 11/13/2024 Travel 11/13/2024 Clinisync Result Encounter [facility] External Department Unsolicited Provider, Generic External Data 11/09/2024 9:30 AM EDT Office Visit [facility] [place] [facility] [address] [place] [address] Juan Ventura DO Chronic anticoagulation (Primary Dx); Squamous cell carcinoma of skin of face 11/09/2024 Bamboo flowsheet [facility] [place] [facility] [address] [place] [address] Juan Ventura, 11/09/2024 Travel 11/01/2024 Results Follow-Up [facility] [place] [facility] [address] [place] [address] Charleen Hensley MD Dermatopathology exam 10/30/2024 Clinisync Result Encounter [facility] External Department Unsolicited Nirav Duenas, 10/26/2024 9:45 AM EDT Office Visit [facility] [place] [facility] [address] [place] [address] Charleen Hensley MD Seborrheic keratosis (Primary Dx); Lentigines; Actinic keratosis; Neoplasm of unspecified behavior of bone, soft tissue, and skin; History of malignant neoplasm of skin 10/26/2024 Bamboo flowsheet [facility] [place] [facility] [address] [place] [address] Charleen Hensley MD 10/26/2024 Travel from Last 3 Months Immunizations Immunization Administration Dates Next Due Influenza, High Dose Seasona l, Preservative Free 03/12/2021,02/24/2020,03/01/2019,02/21,02/25/2018,03/16/2017,03/30/2016 ,03/22/2015 Influenza, High-dose Seasona l, Quadrivalent, Preservative Free 02/26/2021 Influenza, Seasonal, Quadriv alent, Adjuvanted 03/20/2023,03/10/2022,03/15/2020 Influenza, seasonal, intrade rmal, preservative free 05/02/2015 Influenza, trivalent, adjuvanted 03/25/2024 Moderna SARS-CoV-2 Booster Vaccination 1 Novel [id number], preservative-free 05/31/2009 Pneumococcal Conjugate PCV 13 05/24/2016, [...] Pressure 136/78 01/17/2025 3:35 PM EDT Pulse 63 12/03/2024 9:37 AM EDT Temperature 36.7 C (98 F) 05/26/2023 10:41 AM EST Respiratory Rate 16 08/04/2024 10:06 AM EDT Oxygen Saturation 96% 12/03/2024 9:37 AM EDT Inhaled Oxygen Concentration - - Weight 72.6 kg (160 lb) 12/03/2024 9:37 AM EDT Height 175.3 cm (5' 9 ) 11/27/2024 10:09 AM EDT Body Mass Index 23.63 11/27/2024 10:09 AM EDT Plan of Treatment Upcoming Encounters Date Type Department Care Team (Late st Contact Info) Description 04/26/2025 8:35 AM EST [facility] [address] [place] [address] Charleen Hensley MD [address] [place] [address] 05/21/2025 9:30 AM EST [facility] [address] [place] [address] Health Maintenance Due Date Last Done Comments CT Colonography 1940 FIT-DNA 1940 FIT 1940 FOBT 1940 Sigmoidoscopy 1940 Influenza Vaccine (#1) 2025 4, 03/20/2023, 03/10/2022, Additional history exists Diabetes: Hemoglobin A1C 02/14/2025 025, 05/10/2024, 11/05/2022, Additional history exists Diabetes: Urine Protein Screening 10/30/2025 10/30/2024, 11/05/2021, 11/07/2020 Medicare Annual Wellness (AWV) 11/14/2025 11/14/2024 , 11/14/2024 Diabetes: Retinopathy Screening 03/16/2026 03/16/2024, 12/11/2021, 06/20/2018 Colonoscopy 12/24/2032 12/24/2022, 11/22, 11/28/2015 Colorectal Cancer Screening 12/24/2032 Pneumococcal Vaccine: 65+ Years Completed 05/24/2016, 12/14/2013, 05/24/2012, Additional history exists Procedures Procedure Name Priority Date/Time Associated Diagnosis Comments MOHS SURGERY Routine 01/17/2025 1:19 PM EDT 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 USE) Routine 11/13/2024 7:28 AM EDT ALL CBC WITH AUTO DIFF Routine 7:28 AM EDT [facility] MICROALB CREAT RATIO RANDOM Routine 10/30/2024 1:30 PM EDT ALL TESTOSTERONE Routine 10/30/2024 7:31 AM EDT MHPT PSA, DIAGNOSTIC Routine 10/30/2024 7:31 AM EDT ALL THYROID STIM HORMONE Routine 025 7:31 AM EDT ALL LIPID PROFILE (FASTING) Routine 10/30/2024 7:31 AM EDT [facility] CMP (CMP) (FOR REMOTE [facility] USE) Routine 10/30/2024 7:31 AM EDT ALL CBC WITH AUTO DIFF Routine 7:31 AM EDT CRYOTHERAPY SKIN LESION Routine 10/27/19 9:53 AM [...] behavior of bone, soft tissue, and skin ZZDERMATOPATHOLOGY EXAM UNORDERABLE Routine 10/26/2024 12:00 AM EDT Seborrheic keratosis Neoplasm of unspecified behavior of bone, soft tissue, and skin DERMATOPATHOLOGY EXAM Routine 10/26/2024 12:00 AM EDT Neoplasm of unspecified behavior of bone, soft tissue, and skin DIABETIC RETINOPATHY SCREENING - OU - BOTH EYES Routine 03/16/2024 9:30 AM EDT COLONOSCOPY Routine 12/24/2022 1:49 PM EDT MICROALBUMIN CREATININE RATIO, U Routine 11/05/2021 from Last 3 Months or Most Recently Relevant to Health Maintenance Results * Mohs surgery (01/17/2025 1:19 PM EDT) Narrative Sarina LaresPRETTY oliveira - 01/17/2025 1:19 PM EDT Consent obtained: written [place] Protocol: Procedure explained and questions answered to [...] fashion Prep type: chlorhexidine Biopsy accession number: [id number] Biopsy lab: [place] [facility] Date of biopsy: 10/26/2024 Frozen [...] tissue sections, stained, and evaluated by Dr. Tablert for interpretation of deep and peripheral margins. [...] given on the day of surgery?: No us Cecilia Samuels MD DERM PROCEDURE ORDERABLES Fin al Result * URINARY TRACT INFECTION (HTRX) (12/03/2024 9:55 AM EDT) [facility] ACINETOBACTER BAUMANII 0 19.961 - 24.689 ppm 12/05/2024 7:42 AM EDT [facility] ACINETOBACTER BAUMANII Not Detected 19.961 - 24.689 ppm 12/05/2024 7:42 AM EDT [facility] CITROBACTER FREUNDII 0 23.000 - 32.015 ppm 12/05/2024 7:42 AM EDT [facility] CITROBACTER FREUNDII Not Detected 23.000 - 32.015 ppm 12/05/2024 7:42 AM EDT [facility] ENTEROBACTER AEROGENES, CLOACAE 0 23.000 - 32.290 ppm 12/05/2024 7:42 AM EDT [facility] ENTEROBACTER AEROGENES, CLOACAE Not Detected 23.000 - 32.290 ppm 12/05/2024 7:42 AM EDT [facility] ENTEROCOCCUS FAECALIS, FAECIUM 0 26.000 - 33.043 ppm 12/05/2024 7:42 AM EDT [facility] ENTEROCOCCUS FAECALIS, FAECIUM Not Detected 26.000 - 33.043 ppm 12/05/2024 7:42 AM EDT [facility] ESCHERICHIA COLI 0 23.000 - 28.500 ppm 12/05/2024 7:42 AM EDT [facility] ESCHERICHIA COLI Not Detected 23.000 - 28.500 ppm 12/05/2024 7:42 AM EDT [facility] KLEBSIELLA PNEUMONIAE, OXYTOCA 0 23.000 - 31.865 ppm 12/05/2024 7:42 AM EDT [facility] KLEBSIELLA PNEUMONIAE, OXYTOCA Not Detected 23.000 - 31.865 ppm 12/05/2024 7:42 AM EDT [facility] MORGANELLA MORGANII 0 19.961 - 24.689 ppm 12/05/2024 7:42 AM EDT [facility] MORGANELLA MORGANII Not Detected 19.961 - 24.689 ppm 12/05/2024 7:42 AM EDT [facility] PROTEUS MIRABILIS, VULGARIS 0 23.000 - 28.500 ppm 12/05/2024 7:42 AM EDT [facility] PROTEUS MIRABILIS, VULGARIS Not Detected 23.000 - 28.500 ppm 12/05/2024 7:42 AM EDT [facility] PSEUDOMONAS AERUGINOSA 0 23.000 - 31.801 ppm 12/05/2024 7:42 AM EDT [facility] PSEUDOMONAS AERUGINOSA Not Detected 23.000 - 31.801 ppm 12/05/2024 7:42 AM EDT [facility] STAPHYLOCOCCUS AUREUS 0 26.000 - 31.595 ppm 12/05/2024 7:42 AM EDT [facility] STAPHYLOCOCCUS AUREUS Not Detected 26.000 - 31.595 ppm 12/05/2024 7:42 AM EDT [facility] STREPTOCOCCUS AGALACTIAE (GROUP B STREP) 0 26.000 - 32.435 ppm 12/05/2024 7:42 AM EDT [facility] STREPTOCOCCUS AGALACTIAE (GROUP B STREP) Not Detected 26.000 - 32.435 ppm 12/05/2024 7:42 AM EDT [facility] JARAD ALBICANS, PARAPSILOSIS, TROPICALIS 0 23.000 - 30.347 ppm 12/05/2024 7:42 AM EDT [facility] JARAD ALBICANS, PARAPSILOSIS, TROPICALIS Not Detected 23.000 - 30.347 ppm 12/05/2024 7:42 AM EDT [facility] JARAD GLABRATA 0 23.000 - 31.618 ppm 12/05/2024 7:42 AM EDT [facility] JARAD GLABRATA Not Detected 23.000 - 31.618 ppm 12/05/2024 7:42 AM EDT [facility] JARAD KRUSEI 0 23.000 - 30.873 ppm 12/05/2024 7:42 AM EDT [facility] JARAD KRUSEI Not Detected 23.000 - 30.873 ppm 12/05/2024 7:42 AM EDT [facility] SERRATIA MARCESCENS 0 23.000 - 31.581 ppm 12/05/2024 7:42 AM EDT [facility] SERRATIA MARCESCENS Not Detected 23.000 - 31.581 ppm 12/05/2024 7:42 AM EDT [facility] STREPTOCOCCUS PYOGENES (GROUP A STREP) 0 19.961 - 24.689 ppm 12/05/2024 7:42 AM EDT [facility] STREPTOCOCCUS PYOGENES (GROUP A STREP) Not Detected 19.961 - 24.689 ppm 12/05/2024 7:42 AM EDT [facility] STAPHYLOCOCCUS EPIDERMIDIS, HAEMOLYTICUS, LUGDUNENSIS, SAPROPHYTICUS (URINA 0 19.961 - 24.689 ppm 12/05/2024 7:42 AM EDT [facility] STAPHYLOCOCCUS EPIDERMIDIS, HAEMOLYTICUS, LUGDUNENSIS, SAPROPHYTICUS (URINA Not Detected 19.961 - 24.689 ppm 12/05/2024 7:42 AM EDT [facility] STAPHYLOCOCCUS EPIDERMIDIS, HAEMOLYTICUS, LUGDUNENSIS, SAPROPHYTICUS (URINA 0 19.961 - 24.689 ppm 12/05/2024 7:42 AM EDT [facility] STAPHYLOCOCCUS EPIDERMIDIS, HAEMOLYTICUS, LUGDUNENSIS, SAPROPHYTICUS (URINA Not Detected 19.961 - 24.689 ppm 12/05/2024 7:42 AM EDT [facility] Urine 12/03/2024 9:55 AM EDT 12/05/2024 1:44 AM EDT us Robin Bajwa DO LAB BLOOD ORDERABLES Final Result [facility] [address] [address] * (ABNORMAL) POCT urinalysis dipstick manually resulted (12/03/2024 9:48 AM EDT) Color, UA Yellow Clarity, UA Cloudy Glucose, UA Negative Negative - 1999(110) ++++ mg/dL Bilirubin, UA Negative Negative - 4(70) +++ mg/dL Ketones, UA Negative Negative - 160(16) ++++ mg/dL Spec Grav, UA 1.010 1 - 1.03 Blood, UA Positive Negative - 50 Darrin/mcL Comment:3+ pH, UA 6.0 5 - 9 Protein, UA Negative Negative - 1999(20) ++++ mg/dL Urobilinogen, UA 0.2 0.2 - 12 mg/dL Leukocytes, UA 2+ Negative - 500+++ Treva/mcL Nitrite, UA Negative Negative - Positive Urine 12/03/2024 9:48 AM EDT Robin Bajwa DO POINT OF CARE TEST ENTER/ED IT ORDERABLES Final Result * GLUCOSE POCT GLUCOMETERS (11/20/2024 3:33 PM EDT) Only the most recent of2 resultswithin the time period is included. [facility] GLUCOSE POC GLUCOMETERS 126 mg/dL 11/20/2024 3:41 PM EDT [facility] Comment: Random Glucose Reference Range is dependent on time and content of last meal. Glucose of more than 200 mg/dL in a nonstressed, ambulatory subject supports the diagnosis of Diabetes Mellitus. Blood (Blood) 11/20/2024 3:3 3 PM EDT 11/20/2024 3:40 PM EDT Juan Ventura DO LAB BLOOD ORDERABLES Final Result [facility] [address] [place] [address], [place] * ECG 12 lead (11/14/2024 1:43 PM EDT) 11/14/2024 1:43 PM EDT Narrative [facility] - 11/15/2024 11:11 AM EDT [facility] [place] [address] [place] [address] Electrocardiograph Report Signed Patient: Epifanio Walsh MR#: [id number] : 1940 Acct:[id number] Age/Sex: 84 / M ADM Date: 11/14/24 Loc: PS Room: Type: DEP CLI Attending Dr: Juan Ventura DO Ordering Provider: [...] change was found Confirmed by Pablo Haque ([id number]) on 11/15/2024 11:11:14 AM Referred By: Electronically Signed By: Pablo Haque Transcribed By: MUS Signed By Pablo Haque MD 11/15/24 1111 Procedure Note John Haque MD - 11/15/2024 [facility] [place] [address] [place] [address] Electrocardiograph Report Signed Patient: Epifanio Walsh TMR#: [id number] : 1940cct:[id number] Age/Sex: 84 / MADM Date: 11/14/24 Loc: PS Room:Type: DEP CLI Attending Dr: Juan Ventura DO Ordering Provider: [...] change was found Confirmed by Pablo Haque ([id number]) on 11/15/2024 11:11:14 AM Referred By: Electronically Signed By: Pablo Haque Transcribed By: MUS Signed By Pablo Haque MD 11/15/24 1111 Juan Ventura DO ECG ORDERABLES Final Resul t [facility] [address] [place] [address], [place] * POCT glycosylated hemoglobin (Hb A1C) docked device (11/14/2024 9:42 AM EDT) Hemoglobin A1C 6.9 Blood Venous blood specimen / Unknown 11/14/2024 9:42 AM EDT Nirav Duenas DO POINT OF CARE TEST ENTER/TERESA T ORDERABLES Final Result * [facility] PSA, DIAGNOSTIC (11/13/2024 7:28 AM EDT) Only the most recent of2 resultswithin the time period is included. PROSTATE SPECIFIC ANTIGEN DX 0.72 <=4.00 ng/mL TB 11/13/2024 7:28 AM EDT 11/13/2024 7:29 AM EDT Narrative [facility] - 11/13/2024 9:05 AM EDT Generic External Data Provider [facility] F inal Result [facility] TB * (ABNORMAL) [facility] CMP (CMP) (FOR REMOTE [facility] USE) (11/13/2024 7:28 AM EDT) Only the most recent of2 resultswithin the time period is included. SODIUM 145 136 - 145 mmol/L [facility] POTASSIUM 3.4(L) 3.5 - 5.1 mmol/L [facility] CHLORIDE 109(H) 98 - 107 mmol/L [facility]H CARBON DIOXIDE 27.1 21.0 - 32.0 mmol/L [facility] ANION GAP 12.3 TBH GLUCOSE 161(H) 74 - 106 mg/dL [facility] BLOOD UREA NITROGEN 24.0(H) 7.0 - 18.0 mg/dL [facility] CREATININE 1.11 0.70 - 1.30 mg/dL TBH TBH EGFR-AF EQUATORIAL GUINEAN >60 >=60 mL/min/1. 73m 2 TBH TBH EGFR-NON AF EQUATORIAL GUINEAN >60 >=60 mL/min/1. 73m 2 TBH BUN CREATININE RATIO 21.6 TBH CALCIUM 8.4(L) 8.5 - 10.1 mg/dL [facility] BILIRUBIN TOTAL 0.6 0.2 - 1.0 mg/dL [facility] ASPARTATE AMINO TRANSFERASE 20 15 - 37 U/L TBH ALANINE AMINOTRANSFERASE 22 16 - 63 U/L TBH ALKALINE PHOSPHATASE 60 46 - 116 U/L TBH TOTAL PROTEIN 6.4 6.4 - 8.2 g/dL TBH ALBUMIN LEVEL 3.3(L) 3.4 - 5.0 g/dL TBH GLOBULIN 3.1 g/dL TBH ALBUMIN GLOBULIN RATIO 1.1 TBH 11/13/2024 7:28 AM EDT 11/13/2024 7:29 AM EDT Narrative [facility] - 11/13/2024 8:47 AM EDT us Generic External Data Provider [facility] F [facility]al Result [facility] * (ABNORMAL) ALL TESTOSTERONE (11/13/2024 7:28 AM EDT) Only the most recent of2 resultswithin the time period is included. TESTOSTERONE <3(A) 264 - 916 ng/dL [facility] Comment: Adult male reference interval is based on a population of healthy nonobese males (BMI <30) between 19 and 39 years old. John et.al. JCEM 2017,102;0286-9125. PMID: [id number]. Performed at: [address] [id number] Fur Tanner: Miguel Cullen PhD, Phone: [phone] 11/13/2024 7:28 AM EDT 11/13/2024 7:29 AM EDT Narrative [facility] - 11/14/2024 4:14 AM EDT us Generic External Data Provider TONY F inal Result [facility] * (ABNORMAL) ALL CBC WITH AUTO DIFF (11/13/2024 7:28 AM EDT) Only the most recent of2 resultswithin the time period is included. Pathologist [facility] TB WBC 7.1 4.0 - 11.0 10 3/uL TBH TBH RBC 3.90(L) 4.70 - 6.10 10 6/uL TBH TBH HGB 12.0(L) 14.0 - 18.0 g/dL TBH TBH HCT 36.0(L) 42.0 - 54.0 % TBH TBH MCV 92.3 80.0 - 94.0 fL TBH TBH MCH 30.8 25.9 - 34.0 pg TBH TBH MCHC 33.3 29.9 - 35.2 g/dL TBH TBH RDW 13.9 11.0 - 15.0 % TBH TBH PLT 196 150 - 450 10 3/uL TBH TBH MPV 10.5 9.5 - 13.5 fL TBH NEUTROPHILS PERCENT AUTO 57.4 43.0 - 75.0 % TBH LYMPHOCYTES PERCENT AUTO 28.8 20.5 - 60.0 % TBH MONOCYTES PERCENT AUTO 7.9 1.7 - 12.0 % TBH TBH EO % 4.3 0.9 - 7.0 % TBH BASOPHILS PERCENT AUTO 1.0 0.2 - 2.0 % TBH IMMATURE GRANULOCYTES PCT AUTO 0.6(H) 0.0 - 0.5 % TBH NEUTROPHILS ABSOLUTE AUTO 4.1 1.4 - 6.5 10 3/uL TBH LYMPHOCYTES ABSOLUTE AUTO 2.0 1.2 - 3.8 10 3/uL TBH MONOCYTES ABSOLUTE AUTO 0.6 0.3 - 0.8 10 3/uL TBH TBH EO # 0.3 0.0 - 0.7 10 3/uL TBH BASOPHILS ABSOLUTE AUTO 0.1 0.0 - 0.1 10 3/uL TBH IMMATURE GRANULOCYTES ABS AUTO 0.04(H) 0.00 - 0.03 10 3/uL TBH 11/13/2024 7:28 AM EDT 11/13/2024 7:29 AM EDT Narrative [facility] - 11/13/2024 7:59 AM EDT Generic External Data Provider TONY F inal Result Performing Organization Address [facility] de Phone Number [facility] TB * (ABNORMAL) TB MICROALB CREAT RATIO RANDOM (10/30/2024 1:30 PM EDT) MICROALBUMIN URINE RANDOM <1.3 <=30.0 mg/dL TB CREATININE URINE RANDOM 19.21(L) 20.00 - 300.00 mg/dL TB MICROALBUM CREATININE RATIO UR 67.6(H) 0.0 - 29.9 mg/g [facility] Comment: NO MICROALBUMINURIA 0-29 MG/G CLINICAL MICROALBUMINURIA 30-300 MG/G MACROALBUMINURIA >300 MG/G 10/30/2024 1:30 PM EDT 10/30/2024 2:09 PM EDT Narrative [facility] - 10/30/2024 3:20 PM EDT us Nirav LAI Final Result Performing Organization Address [facility] de Phone Number CLINISYNC TB * ALL THYROID STIM HORMONE (10/30/2024 7:31 AM EDT) THYROID STIMULATING HORMONE 1.442 0.358 - 3.740 uIU/mL TB 10/30/2024 7:31 AM EDT 10/30/2024 7:55 AM EDT Narrative CLINISYNC - 10/30/2024 11:47 AM EDT Nirav MCRAEISYNC Final Result Performing Organization Address [facility] de Phone Number CLINISYNC TB * (ABNORMAL) ALL LIPID PROFILE (FASTING) (10/30/2024 7:31 AM EDT) TRIGLYCERIDES 77 <=150 mg/dL TB CHOLESTEROL 132 <=200 mg/dL TB HDL CHOLESTEROL 70(H) 40 - 60 mg/dL TB Comment: > or =60 mg/dl - LOW CARDIOVASCULAR RISK <40 mg/dl - HIGH CARDIOVASCULAR RISK LDL CHOLESTEROL CALCULATED 47.0 mg/dL TB Comment: <100 mg/dl OPTIMAL 100-129 mg/dl NEAR OR ABOVE OPTIMAL 130-159 mg/dl BORDERLINE HIGH 160-189 mg/dl HIGH >190 mg/dl VERY HIGH VLDL CHOLESTEROL 15.4 mg/dL [facility] CHOL HDL RATIO 1.9 [facility] Comment: 3.3 - 4.4 LOW RISK 4.4 - 7.1 AVERAGE RISK 7.1 - 11.0 MODERATE RISK >11.0 HIGH RISK 10/30/2024 7:31 AM EDT 10/30/2024 7:55 AM EDT Narrative [facility] - 10/30/2024 11:47 AM EDT Nirav Duenas DO CLINISYVT Final Result [facility] * Cryotherapy, skin lesion (10/26/2024 9:53 AM EDT) us Charleen Hensley MD DERM PROCEDURE ORDERABLES [...] Lesion biopsy (10/26/2024 9:50 AM EDT) Narrative RushLeena Ramos LPN - 10/26/2024 9:50 AM EDT Type [...] Lesion biopsy (10/26/2024 9:44 AM EDT) Narrative RushLeena Ramos LPN - 10/26/2024 9:44 AM EDT Type [...] taken Amount of lidocaine used: 3.0 cc us Charleen Hensley MD DERM PROCEDURE ORDERABLES Fin al Result * Dermatopathology exam (10/26/2024 12:00 AM EDT) SPECIMEN TYPE --- SPECIMEN: LEFT CHEEK --- [facility] ICD10 Code C44.329 [facility] PROTOCOL F - FLAT [facility] 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 COMMENT: The tumor is present at the peripheral edges of the tissue. [facility] Gross Text [facility] Microscopic Description Microscopic examination performed. [facility] SPECIMEN TYPE --- SPECIMEN: NASAL TIP --- [facility] ICD10 Code D04.39 [facility] PROTOCOL F - FLAT [facility] Final Diagnosis SQUAMOUS CELL CARCINOMA IN SITU. COMMENT: The tumor is present at the peripheral edges of the tissue. [facility] Gross Text [facility] Microscopic Description Microscopic examination performed. [facility] SPECIMEN TYPE --- SPECIMEN: LEFT DORSAL HAND --- [facility] ICD10 Code L57.0 [facility] PROTOCOL F - FLAT [facility] Final Diagnosis HYPERTROPHIC ACTINIC KERATOSIS WITH FOCAL FEATURES OF AN ADJACENT SENESCENT VERRUCA. COMMENT: If this represents a portion of a larger, deeper, or recurrent lesion, resampling of any remainder is recommended in follow-up. [facility] Gross Text [facility] Microscopic Description Microscopic examination performed. [facility] CPT 44507*3 [facility] Skin (tissue) specimen (specimen) Topography unknown / Unknown 10/26/2024 9:44 AM EDT Comment:Differential Diagnos is: KA Check Margins: No Size of lesion: 1.5 x 1.5 cm Skin (tissue) specimen (specimen) Topography unknown / Unknown 10/26/2024 9:50 AM EDT Comment:Differential Diagnos is: AK vs SCC Check Margins: No Size of lesion: 1.0 x 0.8 cm Skin (tissue) specimen (specimen) Topography unknown / Unknown 10/26/2024 9:51 AM EDT Comment:Differential Diagnos is: AK vs SCC Check Margins: No Size of lesion: 1.1 x 1.0 cm Charleen Hensley MD LAB PATHOLOGY ORDERABLES Alie taylor Result [facility] * Diabetic Retinopathy Screening - OU - [...] note [facility] Comment:[facility] - [address] [place], [place] [address] ,Ext. 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
--- OUTSIDE RECORDS SUMMARY | 2025-01-25 07:20 | XMS_ITS | CCD ---
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 Nirav Bello Abhilash Primary Care Unavai armani Davis II, Dr. Epifanio Black Attending Unavailable Ryna GARCIA, Dr. Epifanio Black Referring Unavailable MISC, [...] DO Nirav Bello Primary Care Provider MD jJ Garcia Attending Provider Nirav Belol DO Primary Care Provider DO Nirav eBllo Primary Care Provider [phone] NON STAFF Attending Provider Unavailable KHOURY, MISSY Referring Unavailable ACE, NIRAV A Primary Care Unavailable KHOURY, MISSY Referring Unavailable ACE, NIRAV A Primary Care Unavailable Ace DO Nirav A Unavailable Ace WALKER, Nirav A Primary Care Provider [phone] Ryan ZAMORA, Marianne Unavailable Nirav Bello DO Primary Care Provider Colin Thompson MD Attending Provider [phone] Nirav Bello DO Primary Care Provider Juan Guzman DO Attending Provider [phone] Odilon ZAMORA, Miller Guido Attending Provider Blayne Givens MD Primary Care Provider [phone] Miller Donald Admitting Unavailable Miller Donald Attending Unavailable Ace, Nirav Primary Care Unavailable Ace, Nirav Primary Care Unavailable Colin Thompson Admitting Unavailable Colin Thompson Attending Unavailable Tulio Bellorey Primary Care Unavailable Juan Guzman Admitting Unavailable Juan Guzman Attending Unavailable Nirav Bello Primary Care Unavailable Juan Guzman Admitting Unavailable Juan Guzman Attending Unavailable SENG ANGELES Attending Unavailable MAIA, MISSY Referring Unavailable BLAYNE GIVENS Primary Care Unavailable SENG ANGELES Attending Unavailable SENG ANGELES Referring Unavailable BLAYNE GIVENS Primary Care Unavailable KHOURY, MISSY Attending Unavailable ACE, NIRAV A Primary Care Unavailable KHOURY, MISSY Referring Unavailable ACE, NIRAV A Primary Care Unavailable KHOURY, MISSY Attending Unavailable KHOURY, MISSY Referring Unavailable ACE, NIRAV A Primary Care Unavailable KHOURY, MISSY Attending Unavailable KHOURY, MISSY Referring Unavailable ACE, NIRAV A Primary Care Unavailable Blayne Givens MD Primary Care Provider [phone] LAURA HENSLEY Attending Unavailable LAURA HENSLEY Attending Unavailable LAURA HENSLEY Attending Unavailable OLGA DALEY Attending Unavailable PETITTGrace, LAURA Vargas Attending Unavailable NIRAV BELLO Attending Unavailable NIRAV BELLO Referring Unavailable AAMIR NANCE Attending Unavailable LAURA HENSLEY Attending Unavailable JUAN GUZMAN Attending Unavailable LAURA HENSLEY Referring Unavailable NIRAV BELLO Attending Unavailable JUAN GUZMAN Attending Unavailable LAURA HENSLEY Attending Unavailable CECILIA GARCIA Attending Unavailable PUSHPA, LAURA Vargas Attending Unavailable NIRAV BELLO Attending Unavailable NIRAV BELLO Referring Unavailable Unavailable Unavailable Unavailable Allergies Allergy Classification Reported Allergen(s) Allergy Type Date of Onset Reaction(s) Facility (4 sources) Sulfonamides (Antibiotic); Translations: [Sulfa Drugs] Allergy to drug (finding) [place] [address] DO Work Phone: (17 sources) Sulfonamides (Antibiotic); Translations: [SULFA (SULFONAMIDE ANTIBIOTICS)] Allergy to substance 2 [facility] (1 source) Sulfonamides (Antibiotic) Drug allergy (disorder) [facility] Repository (20 sources) Substance with sulfonamide structure and antibacterial mechanism of action (substance) Drug allergy 4 [facility] (13 sources) abiraterone; Translations: [ABIRATERONE] Drug Allergy 4 Other [facility] Repository (20 sources) Sulfanilamide Allergy to substance 3 Unknown [facility] Healthcare Medications Current Medications Medication Drug Class(es) Dates Sig (Normalized) Sig (Original) abiraterone acetate 250 mg oral tablet (11 sources) Cytochrome P450 17A1 Inhibitor Start: 10-15-2024 End: 11-14-2024 abiraterone (Zytiga) 250 MG chemo tablet 10/15/2024 11/14/2024 Discontinued take 4 tablets by mouth once aristides ly abiraterone (Zytiga) 250 MG chemo tablet Take 4 tablets by mouth Daily. Swallow whole. Do not eat 2 hrs before or 1 hr after. Active amLODIPine 5 mg oral tablet (20 sources) Dihydropyridine Calcium Channel Neeru Start: 08-01-2024 End: 10-02-2025 take 1 tablet by mouth once daily amLODIPine (Norvasc) 5 MG tablet Indications: Primary hypertension Take 1 tablet (5 mg) by mouth Daily 90 tablet 3 08/04/2024 Active amylase 112307 unt / lipase 08292 unt / protease 85416 unt delayed release oral capsule (20 sources) Start: 07-03-2024 pancrelipase, Pts-Scpe-Htyc, (Creon) 07092-76886 units capsule Indications: Malignant neoplasm of prostate (HCC) , Exocrine pancreatic insufficiency (HCC) TAKE 1 CAPSULE IN THE MORNING, 1 CAPSULE AT NOON AND 1 CAPSULE IN THE EVENING WITH MEALS 360 capsule 2 07/03/2024 Active Start: 01-17-2024 Creon 30158-04 000 units capsule Indications: Malignant neoplasm of prostate (CMS/HCC) , Exocrine pancreatic insufficiency (CMS/HCC) TAKE 1 CAPSULE IN THE MORNING, 1 CAPSULE AT NOON AND 1 CAPSULE IN THE EVENING WITH MEALS 300 capsule 1 01/17/2024 Active Start: 05-12-2023 pancrelipase, Utd-Ajla-Iljg, (Creon) 12497-65563 units capsule Indications: Malignant neoplasm of prostate (CMS/HCC) , Exocrine pancreatic insufficiency (CMS/HCC) Take 1 capsule by mouth in the morning and 1 capsule at noon and 1 capsule in the evening. Take with meals. 270 capsule 1 05/12/2023 Active Start: 11-17-2022 take 1 capsule by mo [facility] three times daily wvsmbv-vmqqyquz-wjzklll (Creon) 24,000-76,000 -120,000 unit capsule Take 1 capsule by mouth 3 times daily (morning, midday, late afternoon). 11/17/2022 Active Start: 11-17-2022 Creon 68939-21 000 UNIT 1 with each meal Orally daily for 30 days Oct, Active apalutamide 60 mg oral tablet (2 sources) Start: 01-18-2024 End: 09-04-2024 Erleada 60 MG tablet 01/18/2024 09/04/2024 Discontinued (Therapy completed) ascorbic acid 500 mg oral capsule (15 sources) Vitamin C take 1 capsule by mouth once daily ascorbic acid, vitamin C, 500 mg capsule Take 1 capsule by mouth once daily. Active atorvastatin 20 mg oral tablet (20 sources) HMG-CoA Reductase Inhibitor Start: 11-14-2024 take 10 mg by mouth once daily at bedtime Start: 01-06-2024 atorvastatin ( Lipitor) 20 MG tablet Indications: Mixed hyperlipidemia TAKE 1 TABLET AT NIGHT 90 tablet 3 01/06/2024 Active Start: 12-05-2021 End: 11-14-2024 take 1 tablet by mouth once daily at bedtime Atorvastatin 10 mg Tablet Discontinued 10 MG PO Daily at bedtime December 05, 2021 12:00am November 14, 2024 1:57pm Start: 07-03-2020 End: 10-02-2025 take 0.5 tablet [...] Take 0.5 mcg by mouth Daily Active cefuroxime 500 mg oral tablet (5 sources) Cephalosporin Antibacterial Start: 12-03-2024 End: 12-10-2024 take 1 tablet by mouth once cefuroxime (Ceftin) 500 MG tablet Indications: Acute cystitis with hematuria Take 1 tablet (500 mg) by mouth every 12 (twelve) hours for 7 days 14 tablet 12/03/2024 12/10/2024 Active cholecalciferol 0.05 mg oral tablet (20 sources) Vitamin D Start: 12-05-2021 take 1 tablet by mouth once daily in the morning Start: 12-05-2021 take 1 tablet by yifan three times weekly Cholecalciferol (Vitamin D3) (Vitamin D3) 50 mcg (2,000 unit) Tablet Active 50 MCG PO 3 Times a week December 05, 2021 12:00am take 1 capsule by [facility] once daily cholecalciferol (Vitamin D-3) 25 MCG (1000 UT) capsule Take 1 capsule (25 mcg) by mouth once daily. Active cloNIDine hydrochloride 0.1 mg oral tablet (20 sources) Central alpha-2 Adrenergic Agonist Start: 08-09-2024 End: 10-02-2025 take 1 tablet by mouth once daily cloNIDine (Catapres) 0.1 mg tablet Indications: Primary hypertension Take 1 tablet (0.1 mg) by mouth once daily. 90 tablet 1 10/02/2024 10/02/2025 Active Start: 05-22-2024 take 1 tablet by yifan [...] inject 120 mg by subcutaneous injection every three months denosumab (Xgeva) 120 MG/1.7ML injection Inject 120 mg under the skin every 3 (three) months Active inject 120 mg by sub cutaneous injection every 30 days denosumab (Xgeva) 120 MG/1.7ML injection Inject 120 mg under the skin every 30 (thirty) days Active dicyclomine hydrochloride 20 mg oral tablet (20 sources) Anticholinergic Start: 10-05-2024 take 1 tablet by mouth four times [...] propionate 0.05 mg/actuat metered dose nasal spray (20 sources) Corticosteroid Start: 08-09-2024 Start: 05-10-2024 End: 05-10-2025 take 2 spray(s) nasal route once daily fluticasone (Flonase) 50 MCG/ACT nasal spray Indications: Allergic sinusitis Administer 2 sprays into each nostril Daily Shake gently. Before first use, prime pump. After use, clean tip and replace cap. 16 g 5 05/10/2024 09/04/2024 Discontinued (Therapy completed) lisinopril 20 mg oral tablet (20 sources) Angiotensin Converting Enzyme Inhibitor Start: 12-05-2021 End: 10-02-2025 take 1 tablet by mouth [...] mouth Daily 07/13/2023 Active Start: 02-24-2021 End: 11-14-2024 take 1 tablet by mouth once daily in the morning Metoprolol Succinate 100 mg tablet extended release 24 hr Discontinued 100 MG PO Every morning December 05, 2021 12:00am November 14, 2024 1:54pm mirtazapine 15 mg oral tablet (20 sources) Start: 05-14-2021 mirtazapine (Remeron) 15 MG tablet Indications: Current mild episode of major depressive disorder without prior episode TAKE 1 TABLET AT BEDTIME 90 tablet 3 02/15/2024 Active mupirocin 0.02 mg/mg topical ointment (2 sources) RNA Synthetase Inhibitor Antibacterial Start: 01-17-2025 End: 01-27-2025 mupirocin (Bactroban) 2 % ointment Indications: 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 09/22/2024 11/14/2024 Discontinued Start: 11-05-2023 take 1 tablet by yifan [...] vit A/vit C/vit E/zinc/copper (ICAPS AREDS ORAL) (12 sources) End: 01-09-2025 vit A/vit C/vit E/zinc/copper (ICAPS AREDS ORAL) Take 1 tablet by mouth see administration instructions. 01/09/2025 Discontinued (Therapy completed) vit A/vit C/vit E/zinc/copper (ICAPS AREDS ORAL) Take 1 tablet by mouth see administration instructions. Active vit A/vit C/vit E/zinc/copper (ICAPS AREDS ORAL) Take 1 tablet by mouth see administration instructions. 0 Active Vit C,K-Eg-Bhqjs-Lutein-Zeax an (Preservision Areds-2) 250-90-40-1 mg Capsule (6 sources) Start: 12-05-2021 Vit C,G-Rn-Brbxc-Lutein-Zeax an (Preservision Areds-2) 250-90-40-1 mg Capsule Active 1 TAB PO Every morning December 05, 2021 12:47pm Start: 12-05-2021 Start: 12-05-2021 Vit C,E-Zn-Diamond Picker tf-Hjxtqo-Ndfycc (Preservision Areds-2) 250-90-40-1 mg Capsule Active 2 TAB PO Every morning December 05, 2021 12:00am Complies with drug therapy Start: 12-05-2021 Vit C,E-Zn-Diamond Picker pd-Uxfjcx-Dibohp (Preservision Areds-2) 250-90-40-1 mg Capsule Active 1 TAB PO Every morning December 05, 2021 12:00am vitamin b12 1 mg oral tablet (14 sources) Vitamin B12 take 1 tablet by mouth once daily cyanocobalamin (Vitamin B-12) 1,000 mcg tablet Take 1 tablet (1,000 mcg) by mouth once daily. Active Completed/Discontinued Medications Medication Drug Class(es) Dates Sig (Normalized) Sig (Original) acetaminophen 325 mg / HYDROcodone bitartrate 5 mg oral tablet (5 sources) Opioid Agonist Start: 12-08-2021 End: 12-24-2022 take 1 tablet by mouth every eight hours as needed for pain Hydrocodone-Acetam inophen 5-325 mg tablet Discontinued 1 TAB PO Q8H as needed for pain 14 December 08, 2021 December 24, 2022 11:27am ascorbic acid 226 mg / beta carotene 39176 unt / cuprous oxide 0.8 mg / dl-alpha tocopheryl acetate 200 unt / zinc oxide 34.8 mg oral capsule (3 sources) Vitamin C PreserVision ARE DS Oral Capsule TAKE DIRECTED. Quantity: 0 Refills: 0 Ordered: 03-Jul-2021 DO Active cephalexin 500 mg oral capsule (11 sources) Cephalosporin Antibacterial Start: 12-08-2021 End: 12-24-2022 [...] Once in imaging, Starting on 02/07/24 at 0835, For 1 dose, Administer 45 [...] kidney disease, stage 3a (Multi)] Onset: 01-13-2024 Complications of surgical procedures or medical care (2 sources) Skin reaction to suture material; Translations: [Disruption of external operation (surgical) wound, not elsewhere classified, initial encounter] 12-07-2024 Episodic Deficiency and other anemia (1 source) Anemia, [...] [Benign essential hypertension] Onset: 05-02-2015 07-13-2023 Chronic Genitourinary symptoms and ill-defined conditions (2 sources) Dysuria; Translations: [Dysuria] 12-03-2024 Episodic Hypertension with complications and secondary hypertension (20 sources) Benign hypertensive renal disease; Translations: [Hypertensive [...] (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 of anticoagulants] Episodic Other aftercare (4 sources) Removal of [...] bowel habit] Episodic Other nervous system disorders (5 sources) Postoperative pain ; Translations: [Other acute [...] melanin hyperpigmentation] 10-26-2024 Episodic Other skin disorders (4 sources) Actinic keratosis; Translations: [Actinic keratosis] 10-26-2024 Episodic Other upper respiratory disease (20 sources) Sinusitis; Translations: [Allergic rhinitis, unspecified] Onset: 05-10-2024 05-10-2024 Chronic Residual codes; unclassified (2 sources) Body mass index (BMI) 22.0-22.9, adult; Translations: [Body mass index (BMI) 22.0-22.9, adult] Onset: 12-26-2024 Episodic Urinary tract infections (2 sources) Acute cystitis; Translations: [Acute cystitis with hematuria] 12-03-2024 Episodic Past or Other Problems Problem Classification Problem Date Documented Date Episodic/Chronic Administrative/socia l admission (20 sources) Patient encounter status; Translations: [Person consulting for explanation of examination or test findings] Onset: 05-01-2024 Resolved: 11-09-2024 05-01-2024 Episodic Deficiency and other anemia (20 sources) Anemia; Translations: [Anemia, unspecified] Onset: 11-04-2016 11-03-2022 Episodic Heart valve disorders (20 sources) Nonrheumatic mitral (valve) insufficiency; Translations: [Non-rheumatic mitral regurgitation ] Onset: 01-13-2024 Resolved: 11-09-2024 Chronic Other aftercare (3 sources) Other senior care (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; Translations: [OTH ALF CURRENT DRUG THERAPY] Onset: 11-06-2021 Episodic Other aftercare (20 sources) Long-term current use of anticoagulant; Translations: [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 accountant (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 of anticoagulants] Onset: 01-13-2024 Resolved: 11-09-2024 05-01-2024 Episodic Other aftercare (20 sources) Taking high risk medication; Translations: [Other rat exterminator (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] Onset: 01-13-2024 Resolved: 11-09-2024 01-13-2024 Episodic Other aftercare (20 sources) Treatment changed; Translations: [Other senior care (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] Onset: 10-02-2024 Resolved: 11-09-2024 10-02-2024 Episodic Other aftercare (2 sources) [facility] (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 of anticoagulants; Translations: [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 accountant (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 of anticoagulants] Onset: 01-13-2024 Episodic Other nutritional; endocrine; and metabolic disorders (20 sources) Fat pad syndrome; Translations: [Localized adiposity] Onset: 11-09-2024 Resolved: 11-09-2024 11-09-2024 Chronic Other screening for suspected conditions (not mental disorders or infectious disease) (6 sources) Abnormal electrocardiogram [ECG] [EKG]; Translations: [Electrocardiogram abnormal] Onset: 01-13-2024 Episodic Pancreatic disorders (not diabetes) (20 sources) Other specified diseases of pancreas; Translations: [Exocrine pancreatic insufficiency] Onset: 05-12-2023 Episodic Residual codes; unclassified (20 sources) Body mass index 20-24 - normal; Translations: [Body Mass Index between 19-24, adult] Onset: 05-01-2024 Resolved: 11-09-2024 05-01-2024 Episodic Residual codes; unclassified (2 sources) Body mass index (BMI) 23.0-23.9, adult; Translations: [Body mass index (BMI) 23.0-23.9, adult] Onset: 05-01-2024 Episodic Screening and history of mental health and substance abuse codes (20 sources) Ex-smoker; Translations: [Personal history of nicotine dependence] Onset: 07-13-2023 Resolved: 11-09-2024 07-13-2023 Episodic Unclassified (3 sources) Never smoked tobacco; Translations: [Never a smoker] Unclassified (12 sources) Onset: 07-13-2023 Resolved: 01-09-2025 07-13-2023 Results Test Name Value Interpretation Reference Range Facility No Panel Informationon 01-17 Consent obtained: written [place] Protocol: Procedure explained and questions answered to patient or proxy's satisfaction: Yes Test results available and properly labeled: Yes Pathology report reviewed: Yes External notes reviewed: Yes Photo or diagram used for site identification: Yes Site/side marked: Yes Slide independently reviewed by [facility] surgeon: Yes Anticoagulation: Is the patient taking prescription anticoagulant and/or aspirin prescribed/recommende d by a physician? Yes Was the anticoagulation regimen changed prior to Mohs? No Anesthesia: Anesthesia method: local infiltration Local anesthetic: lidocaine 1% WITH epi and sodium bicarbonate Procedure Details: Timeout: pre-procedure verification complete Procedure Prep: patient was prepped and draped in usual sterile fashion Prep type: chlorhexidine Biopsy accession number: [id number] Biopsy lab: [facility] Date of biopsy: 10/26/2024 Frozen [...] tissue sections, stained, and evaluated by Dr. Garcia for interpretation of deep and peripheral margins. [...] tissue sections, stained, and evaluated by Dr. Nance for interpretation of deep and peripheral margins. [...] given on the day of surgery?: No [facility] PET psma subq tx sb-mton PET psma subq tx sb-mt [facility] [place] [address] Nuclear Medicine Report Signed Patient: Epifanio Alvarez MR#: [id number] : 1940 Acct:[id number] Age/Sex: 84 / M ADM Date: 12/20/24 Loc: Room: Type: [facility] Attending Dr: Miller Donald MD Copies to: MD Jordan Mario II, MD Ordering Provider: Miller Donald MD Date of Service: 12/20/24 PET/PET psma subq tx sb-mt: prostate cancer; rising PSA after treatment PET psma subq tx sb-mt 12/20/2024 11:05 AM SIGNS AND SYMPTOMS: prostate cancer; rising PSA after treatment PROTOCOL: PET images were obtained after intravenous radiotracer administration. Low-dose CT was obtained from skull base to mid thigh. After attenuation correction of PET images, fused PET CT images were generated and reconstructed in axial, sagittal, and coronal planes. COMPARISON: 09/13/2023 RADIOPHARMACEUTICAL: 7.78 mCi of intravenous fluorine 18 PSMA FINDINGS: There is a sclerotic bony lesion in the posterior aspect of the left eighth rib with increased radiotracer accumulation. This is unchanged. There are new focal areas of increased radiotracer accumulation within the lateral aspect of the right and left fourth ribs. There is a new focus of increased radiotracer accumulation within the anterior aspect of the left fourth rib. There is a new focus of increased radiotracer accumulation within the T10 vertebral body to the left of midline. There are 2 new foci of abnormal radiotracer accumulation in the right iliac spine. There is an intense area of radiotracer accumulation to the right of midline within the L5 vertebral body which is more prominent when compared to the prior exam. There is physiologic tracer tracer accumulation within the salivary glands, liver, spleen, kidneys, bladder, and bowel. PET/PET psma subq tx sb-mt IMPRESSION: New areas of abnormal radiotracer accumulation are noted in the ribs, right iliac spine, and T10 vertebral body suggesting worsening bony metastatic disease. There is a sclerotic bony lesion in the posterior aspect of the left eighth rib with increased radiotracer accumulation. This is unchanged. There is an intense area of radiotracer accumulation to the right of midline within the L5 vertebral body which is more prominent when compared to the prior exam. Impression dictated by: Jordan Story M.D. 12/20/2024 2:08 PM Dictation Location: [place] [address] Transcribed By: [facility] 12/20/24 1408 Dictated By: Jordan Story II, MD 12/20/24 1401 Signed By: 12/20/24 1408 Normal [facility] No Panel Informationon 12-05 ACINETOBACTER BAUMANII 0 NO [facility] ACINETOBACTER BAUMANII Not detected [facility] JARAD ALBICANS, PARAPSILOSIS, TROPICALIS 0 [facility] JARAD ALBICANS, PARAPSILOSIS, TROPICALIS Not detected [facility] JARAD GLABRATA 0 [facility] JARAD GLABRATA Not detected [facility] JARAD KRUSEI 0 [facility] JARAD KRUSEI Not detected [facility] CITROBACTER FREUNDII 0 [facility] CITROBACTER FREUNDII Not detected NO [facility] ENTEROBACTER AEROGENES, CLOACAE 0 [facility] ENTEROBACTER AEROGENES, CLOACAE Not detected [facility] ENTEROCOCCUS FAECALIS, FAECIUM 0 [facility] ENTEROCOCCUS FAECALIS, FAECIUM Not detected [facility] ESCHERICHIA COLI 0 [facility] ESCHERICHIA COLI Not detected [facility] KLEBSIELLA PNEUMONIAE, OXYTOCA 0 [facility] KLEBSIELLA PNEUMONIAE, OXYTOCA Not detected [facility] MORGANELLA MORGANII 0 [facility] MORGANELLA MORGANII Not detected [facility] PROTEUS MIRABILIS, VULGARIS 0 [facility] PROTEUS MIRABILIS, VULGARIS Not detected [facility] PSEUDOMONAS AERUGINOSA 0 NO [facility] PSEUDOMONAS AERUGINOSA Not detected [facility] SERRATIA MARCESCENS 0 [facility] SERRATIA MARCESCENS Not detected [facility] STAPHYLOCOCCUS AUREUS 0 [facility] STAPHYLOCOCCUS AUREUS Not detected [facility] STAPHYLOCOCCUS EPIDERMIDIS, HAEMOLYTICUS, LUGDUNENSIS, SAPROPHYTICUS (URINA 0 [facility] STAPHYLOCOCCUS EPIDERMIDIS, HAEMOLYTICUS, LUGDUNENSIS, SAPROPHYTICUS (URINA Not detected [facility] STREPTOCOCCUS AGALACTIAE (GROUP B STREP) 0 [facility] STREPTOCOCCUS AGALACTIAE (GROUP B STREP) Not detected [facility] STREPTOCOCCUS PYOGENES (GROUP A STREP) 0 [facility] STREPTOCOCCUS PYOGENES (GROUP A STREP) Not detected [facility] Urinalysis macro (dipstick) panel (U)on 12-03-2024 Bilirubin, UA Negative Negative - 4(70) +++ mg/dL [facility] Blood, UA Positive Negative - 50 Darrin/mcL [facility] Comment on above: 3+ Clarity, UA Cloudy [facility] Color, UA Yellow [facility] Glucose, UA Negative Negative - 1999(110) ++++ mg/dL [facility] Interpretation and review of laboratory results Abnormal [facility] Ketones, UA Negative Negative - 160(16) ++++ mg/dL [facility] Leukocytes, UA 2+ Negative - 500+++ Treva/mcL [facility] Nitrite, UA Negative Negative - Positive [facility] pH, UA 6 5 - 9 [facility] Protein, UA Negative Negative - 1999(20) ++++ mg/dL [facility] Spec Grav, UA 1.01 1 - 1.03 [facility] Urobilinogen, UA 0.2 0.2 - 12 mg/dL [facility] Capillary blood glucose fco urement by glucometer (mass/volume)Ordered By: Juan Guzman on 11-20-2024 Glucose [Mass/Vol] 126 mg/dL Normal [facility] Comment on above: Random Glucose Refer ence Range is dependent on time and content of last meal. Glucose of more than 200 mg/dL in a nonstressed, ambulatory subject supports the diagnosis of Diabetes Mellitus. Result Comment: [facility] Glucose Reference Range is dependent on time and content of last meal. Glucose of more than 200 mg/dL in a nonstressed, ambulatory subject supports the diagnosis of Diabetes Mellitus. PERFORMED BY: [facility] [address] [place] [address] PATHOLOGIST [employer] ROSS JOHNSTON M.D. Performed By: #### G PRAMOD #### Point of Care testing , GLUCOSE POCT GLUCOMETERSon 0 11-20-2024 Glucose [Mass/Vol] 126 mg/dL [facility] Comment on above: Random Glucose Refer ence Range is dependent on time and content of last meal. Glucose of more than 200 mg/dL in a nonstressed, ambulatory subject supports the diagnosis of Diabetes Mellitus. [facility] Glucose [Mass/Vol] 143 mg/dL [facility] Comment on above: Random Glucose Refer ence Range is dependent on time and content of last meal. Glucose of more than 200 mg/dL in a nonstressed, ambulatory subject supports the diagnosis of Diabetes Mellitus. [facility] Glucose Poct Glucometerson 0 11-20-2024 Glucose [Mass/Vol] 143 mg/dL Normal [facility] Comment on above: Result Comment: [facility] Glucose Reference Range is dependent on time and content of last meal. Glucose of more than 200 mg/dL in a nonstressed, ambulatory subject supports the diagnosis of Diabetes Mellitus. PERFORMED BY: [facility] [address] [place] [address] PATHOLOGIST [employer] ROSS JOHNSTON M.D. Performed By: #### G LULS #### Point of Care testing , Joni 11-20-2024 L - -------- Specimen: [id number] Received: 11/20/24 Status: DEONDRE Watts Num: [id number] Spec Type: Surgical Subm Dr: Juan Guzman DO Tissues: A Skin-Other than Cyst, tag, debridement or plastic repair (LEFT CHEEK) Procedures: , Gross/Micro L4, Frozen Section, FS HE/2 -------- Age/ Patient Sex Location Account Attending Physician -------- Epifanio Alvarez 84/M [place] [id number] Juan Guzman DO -------- SPEC NUM: [id number] RECD: 11/20/24 STATUS: DEONDRE WATTS NUM: [id number] JARRET: 11/20/[address]: Juan Guzman DO ENTERED: 11/20/24-2822 [facility] : [facility]AN TYPE: Surgical DEPT: S ORDERED: HE/9, Gross/Micro L4, Frozen Section, FS HE/2 ORDERED: HE/9, Gross/Micro L4, Frozen Section, FS HE/2 Pathological Diagnosis A. Skin and soft tissue of check, left (excision with frozen section): Cutaneous invasive squamous cell carcinoma, keratinizing and ulcerated Actinic changes No carcinoma seen in the margins of the specimen Clinical Information Skin cancer Gross Description A. The specimen is received in a formalin-filled container labeled with the patient's name, date of and designated as left cheek skin cancer . It consists of an oriented leonardo elliptical excision of skin measuring 4.1 x 2.2 x 1.0 cm displaying two sutures placed by the surgeon as short suture 9:00 and long suture 6:00. There is a 1.1 x 1.1 x 0.2 cm rubbery and polypoid leonardo lesion on the skin surface coming to within 1.5 cm of 12:00 and 6:00, 0.3 cm of 9:00 and 0.5 cm of 3:00. The specimen is inked as follows: 12-3 is blue, 3-6 is orange, 6-9 is green, 9-12 is red and the deep margin is black. The 6:00-9:00 margin and 9:00-12:00 margin are shaved and submitted for frozen section. The remainder of the specimen is serially sectioned revealing a 0.3 cm maximum depth of invasion, coming to within 0.7 cm of the deep margin. The specimen is sequentially submitted from 12:00 to 6:00. The specimen is submitted entirely as follows: A1FS: 6:00-9:00 and 9:00-12:00 peripheral shaved margins A2?A3: 12:00 half of the excision A4?A5: 6:00 half of the excision -------- Specimen: [id number] Received: 11/20/24 Status: DEONDRE Watts Num: [id number] Spec Type: Surgical Subm Dr: Juan Guzman DO Tissues: A Skin-Other than Cyst, tag, debridement or plastic repair (LEFT CHEEK) Procedures: /, Gross/Micro L4, Frozen Section, FS /2 -------- Patient: NicoEpifanio Bhat [id number] (Continued) -------- Specimen: [id number] Received: 11/20/24 (Continued) Gross Description (Continued) Signed (signature on file) Shayan Johnson Jr., MD 11/23/24 0928 -------- Specimen: [id number] Received: 11/20/24 Status: DEONDRE Watts Num: [id number] Spec Type: Surgical Subm Dr: Juan Guzman DO Tissues: A Skin-Other than Cyst, tag, debridement or plastic repair (LEFT CHEEK) Procedures: , Gross/Micro L4, Frozen Section, FS HE/2 -------- Patient: Epifanio Alvarez [id number] (Continued) -------- Specimen: [id number] Received: 11/20/24-1453 (Continued) Gross Description (Continued) (5, entirely submitted, TW) Intraoperative Diagnosis FS dx: Cheek cyst. 6-9 (green) and 9-12 (red): shaved closest peripheral margins. Negative for malignancy. FX read by. Dr. Johnson 11/20/2024 1691. CPT Codes 20221, 12502 -------- -------- Specimen: [id number] Received: 11/20/24 Status: DEONDRE Watts Num: [id number] Spec Type: Surgical Subm Dr: Juan Guzman DO Tissues: A Skin-Other than Cyst, tag, debridement or plastic repair (LEFT CHEEK) Procedures: /, Gross/Micro L4, Frozen Section, FS HE/2 -------- Patient: Epifanio Alvarez [id number] (Continued) ------ (more content not included)... Normal [facility] ECG 12 lead ECGon 11-14-2024 ECG 12 lead ECG [facility] [place] [address] Electrocardiograph Report Signed Patient: Epifanio Alvarez MR#: [id number] : 1940 Acct:[id number] Age/Sex: 84 / M ADM Date: 11/14/24 Loc: Room: Type: [facility] Attending Dr: Juan Guzman DO Ordering Provider: Juan Guzman DO Date of Service: 11/14/24 ECG/ECG 12 [...] change was found Confirmed by Pablo Haque ([id number]) on 11/15/2024 11:11:14 AM Referred By: Electronically Signed By: Pablo Haque Transcribed By: MUS Signed By Pablo Haque MD 11/15/24 1111 Normal [facility] HbA1c (Bld) [Mass fraction]o n 11-14-2024 [facility] Laboratory - Hematology and Cell countson 11-14-2024 HbA1c (Bld) [Mass fraction] 6.9 % [facility] ALL CBC WITH AUTO DIFFon BASOPHILS ABSOLUTE AUTO 0.1 N [facility] Basophils/100 WBC (Bld) 1 % 0.2 - 2.0 % [facility] Eosinophils/100 WBC (Bld) 4.3 % 0.9 - 7.0 % [facility] Erythrocyte distribution width (RBC) [Ratio] 13.9 % 11.0 - 15.0 % [facility] Hematocrit (Bld) [Volume fraction] 36 % Low 42.0 - 54.0 % [facility] Hemoglobin (Bld) [Mass/Vol] 12 g/dL Low 14.0 - 18.0 g/dL [facility] IMMATURE GRANULOCYTES ABS AUTO 0.04 High [facility] Immature granulocytes/100 WBC (Bld) 0.6 % High 0.0 - 0.5 % [facility] Interpretation and review of laboratory results Abnormal [facility] LYMPHOCYTES ABSOLUTE AUTO 2 [facility] Lymphocytes/100 WBC (Bld) 28.8 % 20.5 - 60.0 % [facility] MCH (RBC) [Entitic mass] 30.8 pg 25.9 - 34.0 pg [facility] MCHC (RBC) [Mass/Vol] 33.3 g/dL 29.9 - 35.2 g/dL [facility] MCV (RBC) [Entitic vol] 92.3 fL 80.0 - 94.0 fL [facility] MONOCYTES ABSOLUTE AUTO 0.6 N [facility] Monocytes/100 WBC (Bld) 7.9 % 1.7 - 12.0 % [facility] NEUTROPHILS ABSOLUTE AUTO 4.1 [facility] Neutrophils/100 WBC (Bld) 57.4 % 43.0 - 75.0 % [facility] Platelet mean volume (Bld) [Entitic vol] 10.5 fL 9.5 - 13.5 fL [facility] TBH EO # 0.3 [facility] TBH PLT 196 [facility] TB RBC 3.[address] [facility] WBC 7.1 [facility] WITH AUTO DIFFon BASOPHILS ABSOLUTE AUTO 0.1 N [facility] Basophils/100 WBC (Bld) 1.1 % 0.2 - 2.0 % [facility] Eosinophils/100 WBC (Bld) 4 % 0.9 - 7.0 % [facility] Erythrocyte distribution width (RBC) [Ratio] 14.1 % 11.0 - 15.0 % [facility] Hematocrit (Bld) [Volume fraction] 36.2 % Low 42.0 - 54.0 % [facility] Hemoglobin (Bld) [Mass/Vol] 12.3 g/dL Low 14.0 - 18.0 g/dL [facility] IMMATURE GRANULOCYTES ABS AUTO 0.06 High [facility] Immature granulocytes/100 WBC (Bld) 0.7 % High 0.0 - 0.5 % [facility] Interpretation and review of laboratory results Abnormal [facility] LYMPHOCYTES ABSOLUTE AUTO 2.8 [facility] Lymphocytes/100 WBC (Bld) 31.2 % 20.5 - 60.0 % [facility] MCH (RBC) [Entitic mass] 31.6 pg 25.9 - 34.0 pg [facility] MCHC (RBC) [Mass/Vol] 34 g/dL 29.9 - 35.2 g/dL [facility] MCV (RBC) [Entitic vol] 93.1 fL 80.0 - 94.0 fL [facility] MONOCYTES ABSOLUTE AUTO 0.6 N [facility] Monocytes/100 WBC (Bld) 7.1 % 1.7 - 12.0 % [facility] NEUTROPHILS ABSOLUTE AUTO 5.1 [facility] Neutrophils/100 WBC (Bld) 55.9 % 43.0 - 75.0 % [facility] Platelet mean volume (Bld) [Entitic vol] 10.5 fL 9.5 - 13.5 fL [facility] TBH EO # 0.4 [facility] PLT 206 [facility] RBC 3.[address] [facility] WBC 9.1 [facility] No Panel Informationon 10-26 [facility] Type of biopsy: tangential Informed [...] taken Amount of lidocaine used: 2.0 cc ITegris Type of biopsy: tangential Informed consent: discussed [...] taken Amount of lidocaine used: 1.0 cc ITegris Type of biopsy: tangential Informed consent: discussed [...] taken Amount of lidocaine used: 3.0 cc [facility] No Panel Informationon 08-30 Lesion length (cm): [...] 9.0 ml Estimated blood loss: 1.0 ml [facility] Complexity: Intermediate Final length (cm): [...] uncontrollable bleeding, or complications. Dressing type: bandage [facility] No Panel InformationOrdered By: Danielle Leblanc on 08-30-2024 [facility] Work Phone: ALL CBC WITH AUTO DIFFon BASOPHILS ABSOLUTE AUTO 0.1 N [facility] Basophils/100 WBC (Bld) 1.1 % 0.2 - 2.0 % [facility] Eosinophils/100 WBC (Bld) 5 % 0.9 - 7.0 % [facility] Erythrocyte distribution width (RBC) [Ratio] 13.2 % 11.0 - 15.0 % [facility] Hematocrit (Bld) [Volume fraction] 37.9 % Low 42.0 - 54.0 % [facility] Hemoglobin (Bld) [Mass/Vol] 12.4 g/dL Low 14.0 - 18.0 g/dL [facility] IMMATURE GRANULOCYTES ABS AUTO 0.04 High [facility] Immature granulocytes/100 WBC (Bld) 0.5 % 0.0 - 0.5 % [facility] Interpretation and review of laboratory results Abnormal [facility] LYMPHOCYTES ABSOLUTE AUTO 2.3 [facility] Lymphocytes/100 WBC (Bld) 30.7 % 20.5 - 60.0 % [facility] MCH (RBC) [Entitic mass] 30.5 pg 25.9 - 34.0 pg [facility] MCHC (RBC) [Mass/Vol] 32.7 g/dL 29.9 - 35.2 g/dL [facility] MCV (RBC) [Entitic vol] 93.3 fL 80.0 - 94.0 fL [facility] MONOCYTES ABSOLUTE AUTO 0.5 N [facility] Monocytes/100 WBC (Bld) 5.9 % 1.7 - 12.0 % [facility] NEUTROPHILS ABSOLUTE AUTO 4.3 [facility] Neutrophils/100 WBC (Bld) 56.8 % 43.0 - 75.0 % [facility] Platelet mean volume (Bld) [Entitic vol] 9.8 fL 9.5 - 13.[address] [facility] EO # 0.4 [facility] PLT 227 [facility] RBC 4.[address] [facility] WBC 7.6 [facility] Glucose Glucometer (BldC) [M ass/Vol]Ordered By: Colin Thompson on 08-09-2024 Glucose [Mass/Vol] Capillary blood glucose measurement by glucometer (mass/volume) [facility] Comment on above: Random Glucose Refer ence Range is dependent on time and content of last meal. Glucose of more than 200 mg/dL in a nonstressed, ambulatory subject supports the diagnosis of Diabetes Mellitus. Glucose Poct Glucometerson 0 08-09-2024 Commemt1 Glu2: Cleaned Meter Normal [facility] Comment on above: Result Comment: PERF ORMED BY: [facility] [address] [place] [address] PATHOLOGIST [employer]OWER GRADER JOSE DOWNEY M.D. Performed By: #### G PRAMOD #### Point of Care testing , Glucose [Mass/Vol] 216 mg/dL Normal [facility] Comment on above: Result Comment: [place] Glucose Reference Range is dependent on time and content of last meal. Glucose of more than 200 mg/dL in a nonstressed, ambulatory subject supports the diagnosis of Diabetes Mellitus. Performed By: #### G PRAMOD #### Point of Care testing , Joni 08-09-2024 L - -------- Specimen: [id number] Received: 08/09/24 Status: DEONDRE Watts Num: [id number] Spec Type: Surgical Subm Dr: Colin Thompson MD Tissues: A Skin-Other than Cyst, tag, debridement or plastic repair (R LOWER LEG) Procedures: , Gross/Micro L4 -------- Age/ Patient Sex Location Account Attending Physician -------- Epifanio Alvarez 84/M [place] [id number] Colin Thompson MD -------- SPEC NUM: [id number] RECD: 08/09/24 STATUS: DEONDRE MAC NUM: [id number] JARRET: 08/09/24- SUBM DR: Colin Thompson MD ENTERED: 08/09/[address] [facility] [address]: SPEC TYPE: Surgical DEPT: S ENTERED BY: [id number] RECV BY: [id number] ORDERED: , Gross/Micro L4 ORDERED: , Gross/Micro L4 Pathological [...] cm from the 6?9?12:00 margin. -------- Specimen: [id number] Received: 08/09/24 Status: DEONDRE Watts Num: [id number] Spec Type: Surgical Subm Dr: Colin Thompson MD Tissues: A Skin-Other than Cyst, tag, debridement or plastic repair (R LOWER LEG) Procedures: HEATHER/Angel, Gross/Micro L4 -------- Patient: Epifanio Alvarez [id number] (Continued) -------- Specimen: [id number] Received: 08/09/24 (Continued) Gross Description (Continued) Signed (signature on file) Sohail Urbina MD 08/10/24 1527 -------- Specimen: [id number] Received: 08/09/24 Status: DEONDRE Watts Num: [id number] Spec Type: Surgical Subm Dr: Colin Thompson MD Tissues: A Skin-Other than Cyst, tag, debridement or plastic repair (R LOWER LEG) Procedures: Lizett HERNANDEZ/Saurabh Hedrick -------- Patient: Epifanio Alvarez [id number] (Continued) -------- Specimen: [id number] Received: 08/09/24 (Continued) Gross Description (Continued) The specimen is inked as follows: 12?3:00-Yellow 3?6:00-Green 6?9:00-Charlotte 9?12:00-Blue Deep-Black Serial sections reveal yellow-leonardo, glistening [...] serially sectioned 6:00 polar end (8, ns, [id number] A) Microscopic Description Microscopic examination is performed CPT Codes 12056 -------- -------- Specimen: [id number] Re (more content not included)... Normal [facility] No Panel InformationOrdered By: Colin Thompson on 08-09-2024 Bedside Glucose Comment Glu2: cleaned meter [facility] No Panel Informationon 07-26 Lesion length [...] details: Amount of lidocaine used: 2.0 ml [facility] Gient [facility] No Panel Informationon 07-14 Type [...] taken Amount of lidocaine used: 1.0 cc [facility] Gient Type of biopsy: tangential Informed consent: discussed [...] taken Amount of lidocaine used: 2.0 cc [facility] Gient Type of biopsy: tangential Informed consent: discussed [...] taken Amount of lidocaine used: 1.0 cc [facility]CF CMP (CMP) (FOR REMOTE C USE)on 07-06-2024 Albumin [Mass/Vol] 3.6 g/dL 3.4 - 5.0 g/dL [facility] ALBUMIN GLOBULIN RATIO 1.2 [facility] ALP [Catalytic activity/Vol] 48 U/L 46 - 116 U/L [facility] ALT [Catalytic activity/Vol] 16 U/L 16 - 63 U/L [facility] Anion gap [Moles/Vol] 11 mmol/L [facility] AST [Catalytic activity/Vol] 19 U/L 15 - 37 U/L [facility] Bilirubin [Mass/Vol] 0.6 mg/dL 0.2 - 1 .0 mg/dL [facility] Calcium [Mass/Vol] 8.8 mg/dL 8.5 - 10. 1 mg/dL [facility] Chloride [Moles/Vol] 106 mmol/L 98 - 10 7 mmol/L [facility] CO2 [Moles/Vol] 30 mmol/L 21.0 - 32.0 mmol/L [facility] Creatinine [Mass/Vol] 1.27 mg/dL 0.70 - 1.30 mg/dL [facility] GFR/1.73 sq M.predicted CKD-EPI (S/P/Bld) [Vol rate/Area] >60 >=60 mL/min/1.73m 2 [facility] Globulin (S) [Mass/Vol] 3.1 g/dL [facility] Glucose [Mass/Vol] 167 mg/dL High 74 - 106 mg/dL [facility] Interpretation and review of laboratory results Abnormal [facility] Potassium [Moles/Vol] 4 mmol/L 3.5 - 5.1 mmol/L [facility] Protein [Mass/Vol] 6.7 g/dL 6.4 - 8.2 g/dL [facility] Sodium [Moles/Vol] 143 mmol/L 136 - 145 mmol/L [facility] TBH EGFR-NON AF [place] 54 Low >=60 mL/min/1.73m 2 [facility] Urea nitrogen [Mass/Vol] 24 mg/dL High 7.0 - 18.0 mg/dL [facility] Urea nitrogen/Creatinine [Mass ratio] 18.9 mg/mg [facility] No Panel Informationon 06-30 Complexity: [...] uncontrollable bleeding, or complications. Dressing type: bandage [facility] Lesion length (cm): 1.2 Lesion [...] 9.0 ml Estimated blood loss: <1.0 ml [facility] HbA1c (Bld) [Mass fraction]o n 05-10-2024 [facility] Laboratory - Hematology and Cell countson 05-10-2024 HbA1c (Bld) [Mass fraction] 7.6 % [facility] ALL CBC WITH AUTO DIFFon BASOPHILS ABSOLUTE AUTO 0.1 N [facility] Basophils/100 WBC (Bld) 1.2 % 0.2 - 2.0 % [facility] Eosinophils/100 WBC (Bld) 4.3 % 0.9 - 7.0 % [facility] Erythrocyte distribution width (RBC) [Ratio] 13 % 11.0 - 15.0 % [facility] Hematocrit (Bld) [Volume fraction] 38.4 % Low 42.0 - 54.0 % [facility] Hemoglobin (Bld) [Mass/Vol] 12.4 g/dL Low 14.0 - 18.0 g/dL [facility] IMMATURE GRANULOCYTES ABS AUTO 0.03 [facility] Immature granulocytes/100 WBC (Bld) 0.5 % 0.0 - 0.5 % [facility] Interpretation and review of laboratory results Abnormal [facility] LYMPHOCYTES ABSOLUTE AUTO 2.1 [facility] Lymphocytes/100 WBC (Bld) 32.7 % 20.5 - 60.0 % [facility] MCH (RBC) [Entitic mass] 30.1 pg 25.9 - 34.0 pg [facility] MCHC (RBC) [Mass/Vol] 32.3 g/dL 29.9 - 35.2 g/dL [facility] MCV (RBC) [Entitic vol] 93.2 fL 80.0 - 94.0 fL [facility] MONOCYTES ABSOLUTE AUTO 0.5 N [facility] Monocytes/100 WBC (Bld) 7 % 1.7 - 12.0 % [facility] NEUTROPHILS ABSOLUTE AUTO 3.5 [facility] Neutrophils/100 WBC (Bld) 54.3 % 43.0 - 75.0 % [facility] Platelet mean volume (Bld) [Entitic vol] 10.4 fL 9.5 - 13.5 fL [facility] TBH EO # 0.3 [facility] TBH PLT 172 [facility] RBC 4.12 Low [facility] TB WBC 6.5 [facility] ALL CBC WITH AUTO DIFFon BASOPHILS ABSOLUTE AUTO 0.1 N [facility] Basophils/100 WBC (Bld) 1.2 % 0.2 - 2.0 % [facility] Eosinophils/100 WBC (Bld) 5.3 % 0.9 - 7.0 % [facility] Erythrocyte distribution width (RBC) [Ratio] 13.1 % 11.0 - 15.0 % [facility] Hematocrit (Bld) [Volume fraction] 38.3 % Low 42.0 - 54.0 % [facility] Hemoglobin (Bld) [Mass/Vol] 12.6 g/dL Low 14.0 - 18.0 g/dL [facility] IMMATURE GRANULOCYTES ABS AUTO 0.04 High [facility] Immature granulocytes/100 WBC (Bld) 0.5 % 0.0 - 0.5 % [facility] Interpretation and review of laboratory results Abnormal [facility] LYMPHOCYTES ABSOLUTE AUTO 2.2 [facility] Lymphocytes/100 WBC (Bld) 27.3 % 20.5 - 60.0 % [facility] MCH (RBC) [Entitic mass] 30.7 pg 25.9 - 34.0 pg [facility] MCHC (RBC) [Mass/Vol] 32.9 g/dL 29.9 - 35.2 g/dL [facility] MCV (RBC) [Entitic vol] 93.2 fL 80.0 - 94.0 fL [facility] MONOCYTES ABSOLUTE AUTO 0.6 N [facility] Monocytes/100 WBC (Bld) 7.3 % 1.7 - 12.0 % [facility] NEUTROPHILS ABSOLUTE AUTO 4.8 [facility] Neutrophils/100 WBC (Bld) 58.4 % 43.0 - 75.0 % [facility] Platelet mean volume (Bld) [Entitic vol] 10.6 fL 9.5 - 13.5 fL [facility] TBH EO # 0.4 [facility] TBH PLT 193 [facility] TB RBC 4.[address] [facility] WBC 8.1 [facility] TRANSTHORACIC ECHO (TTE) COM PLETEon 02-21-2024 TRANSTHORACIC ECHO (TTE) COMPLETE [address], [address] [facility], [place] [address] TRANSTHORACIC ECHOCARDIOGRAM REPORT Patient Name: EPIFANIO Kim Physician: [id number] Marina Goldsmith MD Study Date: 02/21/2024 Ordering Provider: [id number] MISSY KHOURY MRN/PID: [id number] Fellow: Nurse: Date of /Age: 1 1940 / 83 years Smoking Tobacco Packer Hand: Jyoti Gutiérrez RDCS, RVT Gender: M Additional [...] III CPT Codes: Echo Complete w Full [id number] Study Detail: The following Echo studies were [...] mmHg PIEDV: 2.08 m/s PADP: 20.3 mmHg [id number] Marina Goldsmith MD Electronically signed on 02/21/2024 at 2:06:09 PM Final [facility] US Heart TransthoracicOrdere d By: Marina Goldsmith on 02-21-2024 Aortic Valve Area by Continuity of Peak Velocity 4.33 cm2 [place] Work Phone: Aortic Valve Area by Continuity of VTI 3.61 cm2 [place] Work Phone: [phone] AV mn grad 2.0 mmHg [place] Work Phone: [phone] AV pk grad 4.8 mmHg [facility] Work Phone: [phone] AV pk farheen 1.10 m/s [place] Work Phone: [phone] LV A4C EF 68.1 [place] Work Phone: [phone] LV EF 60 % [facility] Work Phone: [phone] LVIDd 4.95 cm [place] Work Phone: [phone] LVOT diam 2.60 cm [place] Work Phone: [phone] MV avg E/e' ratio 6.90 [facility] Work Phone: MV E/A ratio 0.58 [place] Work Phone: RVSP 29.4 mmHg [place] Work Phone: [place] Work Phone: Heart Transthoracicon [facility] [address], [address], [place] [address] TRANSTHORACIC ECHOCARDIOGRAM REPORT Patient Name: EPIFANIO ALVAREZ Reading Physician: [id number] Marina Goldsmith MD Study Date: 02/21/2024 Ordering Provider: [id number] MISSY KHOURY MRN/PID: [id number] Fellow: Nurse: Date of /Age: 1 1940 / 83 years Smoking Tobacco Packer Hand: WILVER Celis RDCST Gender: M Additional Staff: Height: 180.34 cm Admit Date: Weight: 77.11 kg Admission Status: BSA / BMI: 1.97 m2 / 23.71 kg/m2 Department Location: [facility] Blood Pressure: 142 /84 mmHg Study Type: TRANSTHORACIC ECHO (TTE) COMPLETE Diagnosis/ICD: 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; Paroxysmal atrial fibrillation-I48.0 Indication: Diabetes, HTN, Hyperlipidemia, Murmur, Former Smoker, Prostate Cancer with Metastases, CKD-Stage III CPT Codes: Echo Complete w Full Doppler-20473 Study Detail: The following Echo studies were [...] not included)... Marina Shaffer MD - 02/21/[address], [address] [place] [address] TRANSTHORACIC ECHOCARDIOGRAM REPORT Patient Name: EPIFANIO Kim Physician: [id number] Marina Goldsmith MD Study Date: 02/21/2024 Ordering Provider: [id number] MISSY KHOURY MRN/PID: [id number] Fellow: Nurse: Date of /Age: 1 1940 / 83 years Smoking Tobacco Packer Hand: Jyoti Gutiérrez RDCS, RVT Gender: M Additional [...] III CPT Codes: Echo Complete w Full Doppler-[id number] Study Detail: The following Echo studies were [...] mmHg PIEDV: 2.08 m/s PADP: 20.3 mmHg [id number] Marina Goldsmith MD Electronically signed on 02/21/2024 at 2:06:09 PM Final [place] Work Phone: [place] [facility] Perfusion W stress [...] Clarissa Sanchez 02/07/2024 4:47 PM Dictation workstation: [id number] Interpreted By: Clarissa Sanchez and Giannuzzi Michael STUDY: MYOCARDIAL PERFUSION STRESS TEST WITH EXERCISE Performing facility: [facility], [address] [place] [address], [address] Provider: Missy Khoury MD, [facility] PCP: Dr. Trang Bello Supervising provider: Marina Goldsmith MD INDICATION: Abnormal EKG; PVC Murmur HISTORY: Gender: M; Age: 83 y/o ; Height: HT 180.3 cm cm; Weight: WT 77.111 kg kg. Abnormal EKG; High Cholesterol; Diabetes; HTN; Arrhythmias; A-fib Quit smoking 34 years ago. COMPARISON: Previous nuclear testing completed [id number] at [facility]. ACCESSION NUMBER(S): [id number] ORDERING CLINICIAN: MISSY KHOURY TECHNIQUE: ONE DAY [...] There was no evidence of attenuation artifact. MMODAL Clarissa Sanchez M D - 02/07/2024 Interpreted By: Clarissa Sanchez and Giannuzzi Michael STUDY: MYOCARDIAL PERFUSION STRESS TEST WITH EXERCISE Performing facility: [facility], [address] [place] [address], [address], [address] Provider: Missy Khoury MD, FACC PCP: Dr. Trang Bello Supervising provider: Marina Goldsmith MD INDICATION: Abnormal EKG; PVC Murmur HISTORY: Gender: M; Age: 83 y/o ; Height: HT 180.3 cm cm; Weight: WT 77.111 kg kg. Abnormal EKG; High Cholesterol; Diabetes; HTN; Arrhythmias; A-fib Quit smoking 34 years ago. COMPARISON: Previous nuclear testing completed at [facility]. ACCESSION NUMBER(S): [id number] ORDERING CLINICIAN: MISSY KHOURY TECHNIQUE: ONE DAY [...] Clarissa Sanchez 02/07/2024 4:47 PM Dictation workstation: [id number] [place] Work Phone: Radiology Study observation (narrative) [facility] Work Phone: [place] Heart Perfusion W stress and W radionuclide IVOrdered By: Clarissa Sanchez on 02-07-2024 [place] Work Phone: NUCLEAR STRESS TESTon 2023 NUCLEAR STRESS TEST Interpreted By: Clarissa Sanchez and Giannuzzi Michael STUDY: MYOCARDIAL PERFUSION STRESS TEST WITH EXERCISE Performing facility: [facility], [address] [place] [address], [address], [address] Provider: Missy Khoury MD, FACC PCP: Dr. Trang Bello Supervising provider: Marina Goldsmith MD INDICATION: Abnormal EKG; PVC Murmur HISTORY: Gender: M; Age: 83 y/o ; Height: HT 180.3 cm cm; Weight: WT 77.111 kg kg. Abnormal EKG; High Cholesterol; Diabetes; HTN; Arrhythmias; A-fib Quit smoking 34 years ago. COMPARISON: Previous nuclear testing completed [id number] at [facility]. ACCESSION NUMBER(S): [id number] ORDERING CLINICIAN: MISSY KHOURY TECHNIQUE: ONE DAY [...] Clarissa Sanchez 02/07/2024 4:47 PM Dictation workstation: [id number] [facility] Comment on above: Order Comment: Start with exercise, may switch to alfonso ALL BASIC METABOLIC PANELon 02-03-2024 Anion gap [Moles/Vol] 11.7 mmol/L NO [facility] Calcium [Mass/Vol] 8.3 mg/dL Low 8.5 - 10. 1 mg/dL [facility] Chloride [Moles/Vol] 107 mmol/L 98 - 10 7 mmol/L [facility] CO2 [Moles/Vol] 28.3 mmol/L 21.0 - 32.0 mmol/L [facility] Creatinine [Mass/Vol] 1.11 mg/dL 0.70 - 1.30 mg/dL [facility] GFR/1.73 sq M.predicted CKD-EPI (S/P/Bld) [Vol rate/Area] >60 60 - PINF [facility] Glucose [Mass/Vol] 164 mg/dL High 74 - 106 mg/dL [facility] Interpretation and review of laboratory results Abnormal [facility] Potassium [Moles/Vol] 4.0 mmol/L 3.5 - 5.1 mmol/L [facility] Sodium [Moles/Vol] 143 mmol/L 136 - 145 mmol/L [facility] TBH EGFR-NON AF [place] >60 60 - PINF [facility] Urea nitrogen [Mass/Vol] 16.0 mg/dL 7.0 - 18.0 mg/dL [facility] Urea nitrogen/Creatinine [Mass ratio] 14.4 mg/mg [facility] ECG 12 Leadon 07-13-2023 Sinus rhythm with frequent PVCs Otherwise normal EKG QTc 444 ms [facility] Work Phone: C reactive protein [Mass/vol ume] in Serum or PlasmaOrdered By: Jj Garcia on 11-26-2022 CRP [Mass/Vol] < 0.5 mg/dL 0.0-0.5 [facility] Creatinine [Mass/volume] in Serum or PlasmaOrdered By: Nirav Bello on 11-26-2022 Creatinine [Mass/Vol] 1.55 mg/dL 0.70-1.30 [facility] Erythrocyte sedimentation ra te by Photometric methodOrdered By: Jj Garcia on 11-26-2022 ESR Photometric method (Bld) [Velocity] 18 mm/hr 0-19 [facility] No Panel InformationOrdered By: Nirav Bello on 11-26-2022 Estimated GFR (CKD-EPI) 43.863 mL/Min [facility] Creatinine Clearance (Chem N/A [facility] Thyrotropin [Units/volume] i n Serum or PlasmaOrdered By: Jj Garcia on 11-26-2022 TSH Qn 1.23 m[IU]/L 0.45-5.33 [facility] Urea nitrogen [Mass/volume] in Serum or PlasmaOrdered By: Nirav Bello on 11-26-2022 Urea nitrogen [Mass/Vol] 31 mg/dL 7 [facility] PANCREATIC ELASTASE FECALon 09-08-2022 Pancreatic Elastase, Fecal 86 ug Elast./g Critically low >200 [facility] Comment on above: Result Comment: Re sults verified by repeat testing Severe Pancreatic Insufficiency: <100 Moderate Pancreatic Insufficiency: 100 - 200 Normal: >200 Performed By: #### L IPID, TSH, CMP #### [facility] [address] [address] [address] Leesa Urbina CELIAC ANTIBODIES PROFILEon 09-04-2022 Deamidated Gliadin Abs, IgA 8 units Normal 0-19 [facility] Comment on above: Result Comment: Nega tive 0 - 19 Weak Positive 20 - 30 Moderate to Strong Positive >30 Performed By: #### C ELIACP #### [facility] [address] [place] [address] Dr. Leesa Urbina Deamidated Gliadin Abs, IgG 4 units Normal 0-19 [facility] Comment on above: Result Comment: Nega tive 0 - 19 Weak Positive 20 - 30 Moderate to Strong Positive >30 Performed By: #### C ELIACP #### [facility] [address] [place] [address] Dr. Leesa Urbina Endomysial Antibody IgA Negative Normal Negative [facility] Comment on above: Performed By: #### C ELIACP #### [facility] [address] [place] [address] Dr. Leesa Urbina Immunoglobulin A, Qn, Serum 143 mg/dL Normal 61-437 [facility] Comment on above: Performed By: #### C ELIACP #### [facility] [address] [address] [address] Leesa Urbina t-Transglutaminase (tTG) IgA <2 Normal 0-3 [facility] Comment on above: Result Comment: Nega tive 0 - 3 Weak Positive 4 - 10 Positive >10 . Tissue Transglutaminase (tTG) has been identified as the endomysial antigen. Studies have demonstr- ated that endomysial IgA antibodies have over 99% specificity for gluten sensitive enteropathy. Performed By: #### C ELIACP #### [facility] [address] [place] [address] Dr. Leesa Urbina t-Transglutaminase (tTG) IgG 6 U/mL Critically high 0-5 [facility] Comment on above: Result Comment: Nega tive 0 - 5 Weak Positive 6 - 9 Positive >9 Performed By: #### C ELIACP #### [facility] [address] [place] [address] Dr. Leesa Urbina CBC AUTO DIFFon 09-03-2022 BASO # 0.1 103/ul Normal 0.0-0.1 [facility] Comment on above: Performed By: #### L IPID, TSH, CMP #### [facility] [address] [place] [address] Dr. Leesa Urbina Basophils/100 WBC (Bld) 1.1 % Normal 0.2-2.0 [facility] Comment on above: Performed By: #### L IPID, TSH, CMP #### [facility] [address] [place] [address] Dr. Leesa Urbina EO # 0.6 103/ul Normal 0.0-0.7 [facility] Comment on above: Performed By: #### L IPID, TSH, CMP #### [facility] [address] [place] [address] Dr. Leesa Urbina Eosinophils/100 WBC (Bld) 7.9 % Critically high 0.9-7.0 [facility] Comment on above: Performed By: #### L IPID, TSH, CMP #### [facility] [address] [place] [address] Dr. Leesa Urbina Erythrocyte distribution width (RBC) [Ratio] 13.6 % Normal 11.0-15.0 [facility] Comment on above: Performed By: #### L IPID, TSH, CMP #### [facility] [address] [place] [address] Dr. Leesa Urbina Hematocrit (Bld) [Volume fraction] 34.4 % Critically low 42.0-54.0 [facility] Comment on above: Performed By: #### L IPID, TSH, CMP #### [facility] [address] [place] [address] Dr. Leesa Urbina Hemoglobin (Bld) [Mass/Vol] 11.4 g/dL Critically low 14.0-18.0 [facility] Comment on above: Performed By: #### L IPID, TSH, CMP #### [facility] [address] [place] [address] Dr. Leesa Urbina IG # 0.02 10e3/ul Normal 0.00-0.03 [facility] Comment on above: Performed By: #### L IPID, TSH, CMP #### [facility] [address] [place] [address] Dr. Leesa Urbina IG % 0.3 % Normal 0.0-0.5 [facility] Comment on above: Performed By: #### L IPID, TSH, CMP #### [facility] [address] [place] [address] Dr. Leesa Urbina LYMPH # 2.1 103/ul Normal 1.2-3.8 [facility] Comment on above: Performed By: #### L IPID, TSH, CMP #### [facility] [address] [place] [address] Dr. Leesa Urbina Lymphocytes/100 WBC (Bld) 28.1 % Normal 20.5-60.0 [facility] Comment on above: Performed By: #### L IPID, TSH, CMP #### [facility] [address] [place] [address] Dr. Leesa Urbina MANUAL DIFF REQ NO Normal [facility] Comment on above: Performed By: #### L IPID, TSH, CMP #### [facility] [address] [place] [address] Dr. Leesa Urbina MCH (RBC) [Entitic mass] 31.1 pg Normal 25.9-34.0 [facility] Comment on above: Performed By: #### L IPID, TSH, CMP #### [facility] [address] [place] [address] Dr. Leesa Urbina MCHC (RBC) [Mass/Vol] 33.1 g/dL Normal 29.9-35.2 [facility] Comment on above: Performed By: #### L IPID, TSH, CMP #### [facility] [address] [address] [address] Leesa Urbina MCV (RBC) [Entitic vol] 93.7 fL Normal 80.0-94.0 [facility] Comment on above: Performed By: #### L IPID, TSH, CMP #### [facility] [address] [place] [address] Dr. Leesa Urbina MONO # 0.4 103/ul Normal 0.3-0.8 [facility] Comment on above: Performed By: #### L IPID, TSH, CMP #### [facility] [address] [place] [address] Dr. Leesa Urbina Monocytes/100 WBC (Bld) 6.0 % Normal 1.7-12.0 [facility] Comment on above: Performed By: #### L IPID, TSH, CMP #### [facility] [address] [place] [address] Dr. Leesa Urbina NEUT # 4.2 103/ul Normal 1.4-6.5 [facility] Comment on above: Performed By: #### L IPID, TSH, CMP #### [facility] [address] [place] [address] Dr. Leesa Urbina Neutrophils/100 WBC (Bld) 56.6 % Normal 43.0-75.0 [facility] Comment on above: Performed By: #### L IPID, TSH, CMP #### [facility] [address] [place] [address] Dr. Leesa Urbina Platelet mean volume (Bld) [Entitic vol] 10.1 fL Normal 9.5-13.5 [facility] Comment on above: Performed By: #### L IPID, TSH, CMP #### [facility] [address] [place] [address] Dr. Leesa Urbina PLT 195 103/ul Normal 150-450 [facility] Comment on above: Performed By: #### L IPID, TSH, CMP #### [facility] [address] [place] [address] Dr. Leesa Urbina RBC 3.67 106/ul Critically low 4.70-6.10 [facility] Comment on above: Performed By: #### L IPID, TSH, CMP #### [facility] [address] [place] [address] Dr. Leesa Urbina WBC 7.3 103/ul Normal 4.0-11.0 [facility] Comment on above: Performed By: #### L IPID, TSH, CMP #### [facility] [address] [place] [address] Dr. Leesa Urbina FERRITINon 09-03-2022 Ferritin [Mass/Vol] 44.0 ng/mL Normal 26.0-388.0 [facility] Comment on above: Performed By: #### F ERR, FETIBC #### [facility] [address] [place] [address] Dr. Leesa Urbina IRON AND TIBCon 09-03-2022 % SATURATION 23.5 % Normal [facility] Comment on above: Performed By: #### F ERR, FETIBC #### [facility] [address] [place] [address] Dr. Leesa Urbina Iron [Mass/Vol] 69.0 ug/dL Normal 65.0-175.0 [facility] Comment on above: Performed By: #### F ERR, FETIBC #### [facility] [address] [place] [address] Dr. Leesa Urbina TIBC DIRECT 294.0 ug/dL Normal 250.0-450.0 [facility] Comment on above: Performed By: #### F ERR, FETIBC #### [facility] [address] [place] [address] Dr. Leesa Urbina Office Visit (Cardiology)on 07-14-2022 Follow-up visit Diagnoses/Problems Assessed Anticoagulated (V58.61) (Z79.01) Benign essential hypertension (401.1) (I10) Hyperlipidemia (272.4) (E78.5) Paroxysmal atrial fibrillation (427.31) (I48.0) Diabetes mellitus (250.00) (E11.9) Body mass index (BMI) of 24.0 to 24.9 in adult (V85.1) (Z68.24) Never a smoker Orders SocHx: Never a smoker Tobacco Use Screening; Status:Complete; Done: [id number] Patient Instructions Please bring all medicines, vitamins, [...] negative for complaint. Vitals Vital Signs Recorded: 14Jul2022 09:08AM Heart Rate68, L Radial Kbpiyqha302, LUE, Sitting Nsdnsfxmq68, LUE, Sitting Height5 ft 11 in Rbamce804 lb BMI Uvrwuisqek75.13 kg/m2 BSA Calculated1.98 Tobacco Useb) No PHQ-2 [...] Jul 14 2022 10:20AM EST (Author) Normal [employer] Tobacco Screening.on 023 Adult depression screening assessment No [facility] y [facility] DO Work Phone: Fall risk assessment a) No falls within the last year [facility] y [facility] DO Work Phone: Tobacco use status [facility] b) No [facility] y 250 DO Work Phone: CBC AUTO DIFFon 05-06-2022 BASO # 0.1 103/ul Normal 0.0-0.1 [facility] Comment on above: Performed By: #### C BC #### [facility] [address] [place] [address] Dr. Leesa Urbina Basophils/100 WBC (Bld) 1.4 % Normal 0.2-2.0 [facility] Comment on above: Performed By: #### C BC #### [facility] [address] [place] [address] Dr. Leesa Urbina EO # 0.4 103/ul Normal 0.0-0.7 [facility] Comment on above: Performed By: #### C BC #### [facility] [address] [place] [address] Dr. Leesa Urbina Eosinophils/100 WBC (Bld) 5.4 % Normal 0.9-7.0 [facility] Comment on above: Performed By: #### C BC #### [facility] [address] [place] [address] Dr. Leesa Urbina Erythrocyte distribution width (RBC) [Ratio] 13.3 % Normal 11.0-15.0 [facility] Comment on above: Performed By: #### C BC #### [facility] [address] [place] [address] Dr. Leesa Urbina Hematocrit (Bld) [Volume fraction] 35.8 % Critically low 42.0-54.0 [facility] Comment on above: Performed By: #### C BC #### [facility] [address] [place] [address] Dr. Leesa Urbian Hemoglobin (Bld) [Mass/Vol] 12.0 g/dL Critically low 14.0-18.0 [facility] Comment on above: Performed By: #### C BC #### [facility] [address] [place] [address] Dr. Leesa Urbina IG # 0.01 10e3/ul Normal 0.00-0.03 [facility] Comment on above: Performed By: #### C BC #### [facility] [address] [place] [address] Dr. Leesa Urbina IG % 0.2 % Normal 0.0-0.5 [facility] Comment on above: Performed By: #### C BC #### [facility] [address] [place] [address] Dr. Leesa Urbina LYMPH # 1.7 103/ul Normal 1.2-3.8 [facility] Comment on above: Performed By: #### C BC #### [facility] [address] [place] [address] Dr. Leesa Urbina Lymphocytes/100 WBC (Bld) 26.1 % Normal 20.5-60.0 [facility] Comment on above: Performed By: #### C BC #### [facility] [address] [place] [address] Dr. Leesa Urbina MANUAL DIFF REQ NO Normal [facility] Comment on above: Performed By: #### C BC #### [facility] [address] [place] [address] Dr. Leesa Urbina MCH (RBC) [Entitic mass] 31.0 pg Normal 25.9-34.0 [facility] Comment on above: Performed By: #### C BC #### [facility] [address] [place] [address] Dr. Leesa Urbina MCHC (RBC) [Mass/Vol] 33.5 g/dL Normal 29.9-35.2 [facility] Comment on above: Performed By: #### C BC #### [facility] [address] [place] [address] Dr. Leesa Urbina MCV (RBC) [Entitic vol] 92.5 fL Normal 80.0-94.0 [facility] Comment on above: Performed By: #### C BC #### [facility] [address] [place] [address] Dr. Leesa Urbina MONO # 0.4 103/ul Normal 0.3-0.8 [facility] Comment on above: Performed By: #### C BC #### [facility] [address] [address] [address] Leesa Urbina Monocytes/100 WBC (Bld) 6.5 % Normal 1.7-12.0 [facility] Comment on above: Performed By: #### C BC #### [facility] [address] [address] [address] Leesa Urbina NEUT # 4.0 103/ul Normal 1.4-6.5 [facility] Comment on above: Performed By: #### C BC #### [facility] [address] [address] [address] Leesa Urbina Neutrophils/100 WBC (Bld) 60.4 % Normal 43.0-75.0 [facility] Comment on above: Performed By: #### C BC #### [facility] [address] [place] [address] Dr. Leesa Urbina Platelet mean volume (Bld) [Entitic vol] 10.6 fL Normal 9.5-13.5 [facility] Comment on above: Performed By: #### C BC #### [facility] [address] [place] [address] Dr. Leesa Urbina PLT 185 103/ul Normal 150-450 [facility] Comment on above: Performed By: #### C BC #### [facility] [address] [place] [address] Dr. Leesa Urbina RBC 3.87 106/ul Critically low 4.70-6.10 [facility] Comment on above: Performed By: #### C BC #### [facility] [address] [place] [address] Dr. Leesa Urbina WBC 6.6 103/ul Normal 4.0-11.0 [facility] Comment on above: Performed By: #### C BC #### [facility] [address] [place] [address] Dr. Leesa Urbina GLYCOHEMOGLOBIN A1Con 2021 ADA RECOMMENDATION SEE BELOW Normal [facility] Comment on above: Result Comment: ADA RECOMMENDED LIMIT 4.0 - 6.0 ADA THERAPEUTIC TARGET < 7.0 ACTION SUGGESTED > 7.0 Performed By: #### A 1C #### [facility] [address] [address] [address] Leesa Urbina Glucose [Mass/Vol] 151 mg/dL Normal [facility] Comment on above: Performed By: #### A 1C #### [facility] [address] [address] [address] Leesa Urbina HbA1c (Bld) [Mass fraction] 6.9 % Critically high 4.5-6.2 [facility] Comment on above: Performed By: #### A 1C #### [facility] [address] [address] [address] Leesa Urbina LIPID PROFILEon 05-06-2022 CHOL-HDL RATIO NORM SEE BELOW Normal [facility] Comment on above: Result Comment: 3.3 - 4.4 LOW RISK 4.4 - 7.1 AVERAGE RISK 7.1 - 11.0 MODERATE RISK >11.0 HIGH RISK Performed By: #### L IPID, TSH, CMP #### [facility] [address] [place] [address] Dr. Leesa Urbina Cholesterol [Mass/Vol] 136 mg/dL Normal <=200 [facility] Comment on above: Performed By: #### L IPID, TSH, CMP #### [facility] [address] [place] [address] Dr. Leesa Urbina Cholesterol in HDL [Mass/Vol] 62 mg/dL Critically high 40-60 [facility] Comment on above: Performed By: #### L IPID, TSH, CMP #### [facility] [address] [address] [address] Leesa Urbina Cholesterol in LDL [Mass/Vol] 53.0 mg/dL Normal [facility] Comment on above: Performed By: #### L IPID, TSH, CMP #### [facility] [address] [address] [address] Leesa Urbina Cholesterol.total/Kandy sterol in HDL [Mass ratio] 2.2 {ratio} Normal [facility] Comment on above: Performed By: #### L IPID, TSH, CMP #### [facility] [address] [address] [address] Leesa Urbina HDL NORMAL > or = 60 mg/dl - LO W CARDIOVASCULAR RISK <40 mg/dl - HIGH CARDIOVASCULAR RISK Normal [facility] Comment on above: Performed By: #### L IPID, TSH, CMP #### [facility] [address] [address] [address] Leesa Urbina LDL CALC NORMAL SEE BELOW Normal [facility] Comment on above: Result Comment: <100 mg/dl OPTIMAL 100 - 129 mg/dl NEAR OR ABOVE OPTIMAL 130 - 159 mg/dl BORDERLINE HIGH 160 - 189 mg/dl HIGH >190 mg/dl VERY HIGH Performed By: #### L IPID, TSH, CMP #### [facility] [address] [address] [address] Leesa Urbina Triglyceride [Mass/Vol] 105 mg/dL Normal <=150 [facility] Comment on above: Performed By: #### L IPID, TSH, CMP #### [facility] [address] [address] [address] Leesa Urbina VLDL CALC 21.0 mg/dL Normal [facility] Comment on above: Performed By: #### L IPID, TSH, CMP #### [facility] [address] [address] [address] Leesa Urbina PROF 14(COMP METB)on 022 Albumin [Mass/Vol] 3.4 g/dL Normal 3.4-5.0 [facility] Comment on above: Performed By: #### L IPID, TSH, CMP #### [facility] [address] [address] [address] Leesa Urbina Albumin/Globulin [Mass ratio] 1.1 {ratio} Normal [facility] Comment on above: Performed By: #### L IPID, TSH, CMP #### [facility] [address] [address] [address] Leesa Urbina ALP [Catalytic activity/Vol] 77 U/L Normal 46-116 [facility] Comment on above: Performed By: #### L IPID, TSH, CMP #### [facility] [address] [address] [address] Leesa Urbina ALT [Catalytic activity/Vol] 12 U/L Critically low 16-63 [facility] Comment on above: Performed By: #### L IPID, TSH, CMP #### [facility] [address] [address] [address] Leesa Urbina Anion gap [Moles/Vol] 12.7 mmol/L Normal [facility] Comment on above: Performed By: #### L IPID, TSH, CMP #### [facility] [address] [address] [address] Leesa Urbina AST [Catalytic activity/Vol] 19 U/L Normal 15-37 [facility] Comment on above: Performed By: #### L IPID, TSH, CMP #### [facility] [address] [place] [address] Dr. Leesa Urbina Bilirubin [Mass/Vol] 0.4 mg/dL Normal 0.2-1.0 [facility] Comment on above: Performed By: #### L IPID, TSH, CMP #### [facility] [address] [address] [address] Leesa Urbina Calcium [Mass/Vol] 8.5 mg/dL Normal 8.5-10.1 [facility] Comment on above: Performed By: #### L IPID, TSH, CMP #### [facility] [address] [address] [address] Leesa Urbina Chloride [Moles/Vol] 107 mmol/L Normal 98-107 [facility] Comment on above: Performed By: #### L IPID, TSH, CMP #### [facility] [address] [address] [address] Leesa Urbina CO2 [Moles/Vol] 27.4 mmol/L Normal 21.0-32.0 [facility] Comment on above: Performed By: #### L IPID, TSH, CMP #### [facility] [address] [address] [address] Leesa Urbina Creatinine [Mass/Vol] 1.06 mg/dL Normal 0.70-1.30 [facility] Comment on above: Performed By: #### L IPID, TSH, CMP #### [facility] [address] [place] [address] Dr. Leesa Urbina EGFR-AF PAPUA NEW GUINEAN >60 Normal >=60 [facility] Comment on above: Performed By: #### L IPID, TSH, CMP #### [facility] [address] [place] [address] Dr. Leesa Urbina EGFR-NON AF PAPUA NEW GUINEAN >60 Normal >=60 [facility] Comment on above: Performed By: #### L IPID, TSH, CMP #### [facility] [address] [place] [address] Dr. Leesa Urbina Globulin (S) [Mass/Vol] 3.1 g/dL Normal [facility] Comment on above: Performed By: #### L IPID, TSH, CMP #### [facility] [address] [place] [address] Dr. Leesa Urbina Glucose [Mass/Vol] 171 mg/dL Critically high 74-106 [facility] Comment on above: Performed By: #### L IPID, TSH, CMP #### [facility] [address] [place] [address] Dr. Leesa Urbina Potassium [Moles/Vol] 4.1 mmol/L Normal 3.5-5.1 [facility] Comment on above: Performed By: #### L IPID, TSH, CMP #### [facility] [address] [place] [address] Dr. Leesa Urbina Protein [Mass/Vol] 6.5 g/dL Normal 6.4-8.2 [facility] Comment on above: Performed By: #### L IPID, TSH, CMP #### [facility] [address] [place] [address] Dr. Leesa Urbina Sodium [Moles/Vol] 143 mmol/L Normal 136-145 [facility] Comment on above: Performed By: #### L IPID, TSH, CMP #### [facility] [address] [place] [address] Dr. Leesa Urbina Urea nitrogen [Mass/Vol] 24.0 mg/dL Critically high 7.0-18.0 [facility] Comment on above: Performed By: #### L IPID, TSH, CMP #### [facility] [address] [address] [address] Leesa Urbina Urea nitrogen/Creatinine [Mass ratio] 22.6 mg/mg Normal [facility] Comment on above: Performed By: #### L IPID, TSH, CMP #### [facility] [address] [address] [address] Leesa Urbina Basophils Auto (Bld) [#/Vol] Ordered By: Juan Guzman on 12-05-2021 Basophils (Bld) [#/Vol] 0.1 10*3/uL 0.0-0.2 [facility] Basophils/100 WBC Auto (Bld) Ordered By: Juan Guzman on 12-05-2021 Basophils/100 WBC (Bld) 0.9 % [facility] Blood hemoglobin measurement (mass/volume)Ordered By: Juan Guzman on 12-05-2021 Hemoglobin (Bld) [Mass/Vol] 12.4 g/dL 13.0-17.0 [facility] Blood leukocytes automated c ount (number/volume)Ordered By: Juan Guzman on 12-05-2021 WBC (Bld) [#/Vol] 7.0 10*3/uL 4.5-11.0 [facility] COVID-19 Positive/NegativeOr dered By: Juan Guzman on 12-05-2021 SARS-CoV-2 (COVID-19) N gene RENETTA+probe Ql (Resp) Negative Negative [facility] Comment on above: Testing for SARS-CoV -2 by RT-PCR This test was developed and its performance characteristics determined by [employer] ([email or web address]) and validated at the [facility]. This test has not been FDA [...] on 12-05-2021 Creatinine [Mass/Vol] 1.28 mg/dL 0.64-1.27 [facility] Eosinophils Auto (Bld) [#/Vo l]Ordered By: Juan Guzman on 12-05-2021 Eosinophils (Bld) [#/Vol] 0.1 10*3/uL 0.0-0.45 [facility] Eosinophils/100 WBC Auto (Bl d)Ordered By: Juan Guzman on 12-05-2021 Eosinophils/100 WBC (Bld) 2.1 % [facility] Erythrocyte distribution wid th Auto (RBC) [Ratio]Ordered By: Juan Guzman on 12-05-2021 Erythrocyte distribution width (RBC) [Ratio] 14.6 % 12.0-14.8 [facility] Estimated glomerular filtrat ion rate (GFR) non- AmericanOrdered By: Juan Guzman on 12-05-2021 GFR/1.73 sq M.predicted among non-blacks MDRD (S/P/Bld) [Vol rate/Area] 54 mL/Min [facility] Hematocrit Auto (Bld) [Volum e fraction]Ordered By: Juan Guzman on 12-05-2021 Hematocrit (Bld) [Volume fraction] 37.3 % 38.8-50.0 [facility] - Hematology and Cell countsOrdered By: Juan Guzman on 12-05-2021 Nucleated RBC/100 WBC (Bld) [Ratio] 0.0 % 0-0.5 [facility] Lymphocytes Auto (Bld) [#/Vo l]Ordered By: Juan Guzman on 12-05-2021 Lymphocytes (Bld) [#/Vol] 1.4 10*3/uL 1.00-4.8 [facility] Lymphocytes/100 WBC Auto (Bl d)Ordered By: Juan Guzman on 12-05-2021 Lymphocytes/100 WBC (Bld) 19.8 % [facility] MCH Auto (RBC) [Entitic mass ]Ordered By: Juan Guzman on 12-05-2021 MCH (RBC) [Entitic mass] 30.8 pg 27.5-35.2 [facility] MCHC Auto (RBC) [Mass/Vol]Or dered By: Juan Guzman on 12-05-2021 MCHC (RBC) [Mass/Vol] 33.1 g/dL 32.5-35.6 [facility] MCV Auto (RBC) [Entitic vol] Ordered By: Juan Guzman on 12-05-2021 MCV (RBC) [Entitic vol] 93.1 fL 83.5-101 [facility] Monocytes Auto (Bld) [#/Vol] Ordered By: Juan Guzman on 12-05-2021 Monocytes (Bld) [#/Vol] 0.5 10*3/uL 0.0-0.8 [facility] Monocytes/100 WBC Auto (Bld) Ordered By: Juan Guzman on 12-05-2021 Monocytes/100 WBC (Bld) 7.3 % [facility] Neutrophils Auto (Bld) [#/Vo l]Ordered By: Juan Guzman on 12-05-2021 Neutrophils (Bld) [#/Vol] 4.9 10*3/uL 1.8-7.7 [facility] Neutrophils/100 WBC Auto (Bl d)Ordered By: Juan Guzman on 12-05-2021 Neutrophils/100 WBC (Bld) 69.9 % [facility] No Panel InformationOrdered By: Juan Guzman on 12-05-2021 Estimated GFR () > 60 mL/Min [facility] Comment on above: GFR estimated refere nce range: According to KDOQI guidelines, <60 ml/min/1.73m2 is sufficient to diagnose a patient with chronic kidney disease. Pharmacy Creatinine Clearance (Chem N/A [facility] Platelet mean volume Auto (B ld) [Entitic vol]Ordered By: Juan Guzman on 12-05-2021 Platelet mean volume (Bld) [Entitic vol] 8.9 fL 6.6-10.1 [facility] Platelets Auto (Bld) [#/Vol] Ordered By: Juan Guzman on 12-05-2021 Platelets (Bld) [#/Vol] 194 10*3/uL 150-450 [facility] RBC Auto (Bld) [#/Vol]Ordere d By: Juan Guzman on 12-05-2021 RBC (Bld) [#/Vol] 4.00 10*6/uL 3.90-5.60 [facility] Serum or plasma calcium fco urement (mass/volume)Ordered By: Juan Guzman on 12-05-2021 Calcium [Mass/Vol] 9.2 mg/dL 8.2-10.2 [facility] Serum or plasma chloride daniel surement (moles/volume)Ordered By: Juan Guzman on 12-05-2021 Chloride [Moles/Vol] 107 mmol/L 95-114 [facility] Serum or plasma glucose fco urement (mass/volume)Ordered By: Juan Guzman on 12-05-2021 Glucose [Mass/Vol] 117 mg/dL 70-100 [facility] Comment on above: ADA recommended refe rence range Random Glucose Reference Range is dependent on time and content of last meal. Glucose of more than 200 mg/dL in a nonstressed, ambulatory subject supports the diagnosis of Diabetes Mellitus. Serum or plasma potassium me asurement (moles/volume)Ordered By: Juan Guzman on 12-05-2021 Potassium [Moles/Vol] 4.6 mmol/L 3.5-5.1 [facility] Serum or plasma sodium measu rement (moles/volume)Ordered By: Juan Guzman on 12-05-2021 Sodium [Moles/Vol] 141 mmol/L 136-146 [facility] Serum or plasma total carbon dioxide measurement (moles/volume)Ordered By: Juan Guzman on 12-05-2021 CO2 [Moles/Vol] 26.2 mmol/L 22.0-30.0 [facility] Serum or plasma urea nitroge n measurement (mass/volume)Ordered By: Juan Guzman on 12-05-2021 Urea nitrogen [Mass/Vol] 23 mg/dL 02-13 [facility] CBC AUTO DIFFon 11-05-2021 BASO # 0.1 103/ul Normal 0.0-0.1 [facility] Comment on above: Performed By: #### C BC #### [facility] [address] [address] [address] Leesa Urbina Basophils/100 WBC (Bld) 0.8 % Normal 0.2-2.0 [facility] Comment on above: Performed By: #### C BC #### [facility] [address] [address] [address] Leesa Urbina EO # 0.4 103/ul Normal 0.0-0.7 [facility] Comment on above: Performed By: #### C BC #### [facility] [address] [address] [address] Leesa Urbina Eosinophils/100 WBC (Bld) 5.6 % Normal 0.9-7.0 [facility] Comment on above: Performed By: #### C BC #### [facility] [address] [address] [address] Leesa Urbina Erythrocyte distribution width (RBC) [Ratio] 13.4 % Normal 11.0-15.0 [facility] Comment on above: Performed By: #### C BC #### [facility] [address] [address] [address] Leesa Urbina Hematocrit (Bld) [Volume fraction] 36.1 % Critically low 42.0-54.0 [facility] Comment on above: Performed By: #### C BC #### [facility] [address] [address] [address] Leesa Urbina Hemoglobin (Bld) [Mass/Vol] 11.8 g/dL Critically low 14.0-18.0 [facility] Comment on above: Performed By: #### C BC #### [facility] [address] [address] [address] Leesa Urbina IG # 0.02 10e3/ul Normal 0.00-0.03 [facility] Comment on above: Performed By: #### C BC #### [facility] [address] [address] [address] Leesa Urbina IG % 0.3 % Normal 0.0-0.5 [facility] Comment on above: Performed By: #### C BC #### [facility] [address] [place] [address] Dr. Leesa Urbina LYMPH # 1.8 103/ul Normal 1.2-3.8 [facility] Comment on above: Performed By: #### C BC #### [facility] [address] [place] [address] Dr. Leesa Urbina Lymphocytes/100 WBC (Bld) 28.4 % Normal 20.5-60.0 [facility] Comment on above: Performed By: #### C BC #### [facility] [address] [place] [address] Dr. Leesa Ubrina MANUAL DIFF REQ NO Normal [facility] Comment on above: Performed By: #### C BC #### [facility] [address] [place] [address] Dr. Leesa Urbina MCH (RBC) [Entitic mass] 30.7 pg Normal 25.9-34.0 [facility] Comment on above: Performed By: #### C BC #### [facility] [address] [place] [address] Dr. Leesa Urbina MCHC (RBC) [Mass/Vol] 32.7 g/dL Normal 29.9-35.2 [facility] Comment on above: Performed By: #### C BC #### [facility] [address] [place] [address] Dr. Leesa Urbina MCV (RBC) [Entitic vol] 94.0 fL Normal 80.0-94.0 [facility] Comment on above: Performed By: #### C BC #### [facility] [address] [address] [address] Leesa Urbina MONO # 0.5 103/ul Normal 0.3-0.8 [facility] Comment on above: Performed By: #### C BC #### [facility] [address] [address] [address] Leesa Urbina Monocytes/100 WBC (Bld) 8.1 % Normal 1.7-12.0 [facility] Comment on above: Performed By: #### C BC #### [facility] [address] [place] [address] Dr. Leesa Urbina NEUT # 3.5 103/ul Normal 1.4-6.5 [facility] Comment on above: Performed By: #### C BC #### [facility] [address] [place] [address] Dr. Leesa Urbina Neutrophils/100 WBC (Bld) 56.8 % Normal 43.0-75.0 [facility] Comment on above: Performed By: #### C BC #### [facility] [address] [place] [address] Dr. Leesa Urbina Platelet mean volume (Bld) [Entitic vol] 10.3 fL Normal 9.5-13.5 [facility] Comment on above: Performed By: #### C BC #### [facility] [address] [place] [address] Dr. Leesa Urbina PLT 179 103/ul Normal 150-450 [facility] Comment on above: Performed By: #### C BC #### [facility] [address] [place] [address] Dr. Leesa Urbina RBC 3.84 106/ul Critically low 4.70-6.10 [facility] Comment on above: Performed By: #### C BC #### [facility] [address] [place] [address] Dr. Leesa Urbina WBC 6.2 103/ul Normal 4.0-11.0 [facility] Comment on above: Performed By: #### C BC #### [facility] [address] [address] [address] Leesa Urbina GLYCOHEMOGLOBIN A1Con 2021 ADA RECOMMENDATION SEE BELOW Normal [facility] Comment on above: Result Comment: ADA RECOMMENDED LIMIT 4.0 - 6.0 ADA THERAPEUTIC TARGET < 7.0 ACTION SUGGESTED > 7.0 Performed By: #### L IPID, TSH, CMP #### [facility] [address] [address] [address] Leesa Urbina Glucose [Mass/Vol] 151 mg/dL Normal [facility] Comment on above: Performed By: #### L IPID, TSH, CMP #### [facility] [address] [address] [address] Leesa Urbina HbA1c (Bld) [Mass fraction] 6.9 % Critically high 4.5-6.2 [facility] Comment on above: Performed By: #### L IPID, TSH, CMP #### [facility] [address] [place] [address] Dr. Leesa Urbina LIPID PROFILEon 11-05-2021 CHOL-HDL RATIO NORM SEE BELOW Normal [facility] Comment on above: Result Comment: 3.3 - 4.4 LOW RISK 4.4 - 7.1 AVERAGE RISK 7.1 - 11.0 MODERATE RISK >11.0 HIGH RISK Performed By: #### L IPID, TSH, CMP #### [facility] [address] [place] [address] Dr. Leesa Urbina Cholesterol [Mass/Vol] 150 mg/dL Normal <=200 [facility] Comment on above: Performed By: #### L IPID, TSH, CMP #### [facility] [address] [place] [address] Dr. Leesa Urbina Cholesterol in HDL [Mass/Vol] 60 mg/dL Normal 40-60 [facility] Comment on above: Performed By: #### L IPID, TSH, CMP #### [facility] [address] [place] [address] Dr. Leesa Urbina Cholesterol in LDL [Mass/Vol] 70.8 mg/dL Normal [facility] Comment on above: Performed By: #### L IPID, TSH, CMP #### [facility] [address] [address] [address] Leesa Urbina Cholesterol.total/Kandy sterol in HDL [Mass ratio] 2.5 {ratio} Normal [facility] Comment on above: Performed By: #### L IPID, TSH, CMP #### [facility] [address] [address] [address] Leesa Urbina HDL NORMAL > or = 60 mg/dl - LO W CARDIOVASCULAR RISK <40 mg/dl - HIGH CARDIOVASCULAR RISK Normal [facility] Comment on above: Performed By: #### L IPID, TSH, CMP #### [facility] [address] [address] [address] Leesa Urbina LDL CALC NORMAL SEE BELOW Normal [facility] Comment on above: Result Comment: <100 mg/dl OPTIMAL 100 - 129 mg/dl NEAR OR ABOVE OPTIMAL 130 - 159 mg/dl BORDERLINE HIGH 160 - 189 mg/dl HIGH >190 mg/dl VERY HIGH Performed By: #### L IPID, TSH, CMP #### [facility] [address] [address] [address] Leesa Urbina Triglyceride [Mass/Vol] 96 mg/dL Normal <=150 [facility] Comment on above: Performed By: #### L IPID, TSH, CMP #### [facility] [address] [address] [address] Leesa Urbina VLDL CALC 19.2 mg/dL Normal [facility] Comment on above: Performed By: #### L IPID, TSH, CMP #### [facility] [address] [address] [address] Leesa Urbina MICROALB CREAT RATIO RANDOMo n 11-05-2021 mALB <1.3 Normal <=30.0 [facility] Comment on above: Performed By: #### L IPID, TSH, CMP #### [facility] [address] [address] [address] Leesa Urbina MALB CR RATIO 11.4 mg/g Normal 0.0-29.9 [facility] Comment on above: Performed By: #### L IPID, TSH, CMP #### [facility] [address] [place] [address] Dr. Leesa Urbina MALB CR RATIO RANGE SEE BELOW Normal [facility] Comment on above: Result Comment: NO M ICROALBUMINURIA 0-29 MG/G CLINICAL MICROALBUMINURIA 30-300 MG/G MACROALBUMINURIA >300 MG/G Performed By: #### L IPID, TSH, CMP #### [facility] [address] [address] [address] Leesa Urbina URINE CREAT 114.03 mg/dL Normal 20.00-300.00 [facility] Comment on above: Performed By: #### L IPID, TSH, CMP #### [facility] [address] [place] [address] Dr. Leesa Urbina PROF 14(COMP METB)on 022 Albumin [Mass/Vol] 2.3 g/dL Critically low 3.4-5.0 [facility] Comment on above: Performed By: #### L IPID, TSH, CMP #### [facility] [address] [place] [address] Dr. Leesa Urbina Albumin/Globulin [Mass ratio] 0.5 {ratio} Normal [facility] Comment on above: Performed By: #### L IPID, TSH, CMP #### [facility] [address] [place] [address] Dr. Leesa Urbina ALP [Catalytic activity/Vol] 77 U/L Normal 46-116 [facility] Comment on above: Performed By: #### L IPID, TSH, CMP #### [facility] [address] [place] [address] Dr. Leesa Urbina ALT [Catalytic activity/Vol] 16 U/L Normal 16-63 [facility] Comment on above: Performed By: #### L IPID, TSH, CMP #### [facility] [address] [place] [address] Dr. Leesa Urbina Anion gap [Moles/Vol] 13.8 mmol/L Normal [facility] Comment on above: Performed By: #### L IPID, TSH, CMP #### [facility] [address] [address] [address] Leesa Urbina AST [Catalytic activity/Vol] 15 U/L Normal 15-37 [facility] Comment on above: Performed By: #### L IPID, TSH, CMP #### [facility] [address] [address] [address] Leesa Urbina Bilirubin [Mass/Vol] 0.5 mg/dL Normal 0.2-1.0 [facility] Comment on above: Performed By: #### L IPID, TSH, CMP #### [facility] [address] [address] [address] Leesa Urbina Calcium [Mass/Vol] 8.7 mg/dL Normal 8.5-10.1 [facility] Comment on above: Performed By: #### L IPID, TSH, CMP #### [facility] [address] [place] [address] Dr. Leesa Urbina Chloride [Moles/Vol] 107 mmol/L Normal 98-107 [facility] Comment on above: Performed By: #### L IPID, TSH, CMP #### [facility] [address] [address] [address] Leesa Urbina CO2 [Moles/Vol] 26.2 mmol/L Normal 21.0-32.0 [facility] Comment on above: Performed By: #### L IPID, TSH, CMP #### [facility] [address] [address] [address] Leesa Urbina Creatinine [Mass/Vol] 1.25 mg/dL Normal 0.70-1.30 [facility] Comment on above: Performed By: #### L IPID, TSH, CMP #### [facility] [address] [address] [address] Leesa Urbina EGFR-AF PAPUA NEW GUINEAN >60 Normal >=60 [facility] Comment on above: Performed By: #### L IPID, TSH, CMP #### [facility] [address] [place] [address] Dr. Leesa Urbina EGFR-NON AF PAPUA NEW GUINEAN 55 mL/min/1.73m2 Critically low >=60 [facility] Comment on above: Performed By: #### L IPID, TSH, CMP #### [facility] [address] [address] [address] Leesa Urbina Globulin (S) [Mass/Vol] 4.3 g/dL Normal [facility] Comment on above: Performed By: #### L IPID, TSH, CMP #### [facility] [address] [address] [address] Leesa Urbina Glucose [Mass/Vol] 137 mg/dL Critically high 74-106 [facility] Comment on above: Performed By: #### L IPID, TSH, CMP #### [facility] [address] [place] [address] Dr. Leesa Urbina Potassium [Moles/Vol] 4.0 mmol/L Normal 3.5-5.1 [facility] Comment on above: Performed By: #### L IPID, TSH, CMP #### [facility] [address] [place] [address] Dr. Leesa Urbina Protein [Mass/Vol] 6.6 g/dL Normal 6.4-8.2 [facility] Comment on above: Performed By: #### L IPID, TSH, CMP #### [facility] [address] [place] [address] Dr. Leesa Urbina Sodium [Moles/Vol] 143 mmol/L Normal 136-145 [facility] Comment on above: Performed By: #### L IPID, TSH, CMP #### [facility] [address] [place] [address] Dr. Leesa Urbina Urea nitrogen [Mass/Vol] 24.0 mg/dL Critically high 7.0-18.0 [facility] Comment on above: Performed By: #### L IPID, TSH, CMP #### [facility] [address] [place] [address] Dr. Leesa Urbina Urea nitrogen/Creatinine [Mass ratio] 19.2 mg/mg Normal [facility] Comment on above: Performed By: #### L IPID, TSH, CMP #### [facility] [address] [place] [address] Dr. Leesa Urbina TSHon 11-05-2021 TSH 0.996 uIU/mL Normal 0.358-3.740 [facility] Comment on above: Performed By: #### L IPID, TSH, CMP #### [facility] [address] [address] [address] Leesa Urbina Tobacco Screening.on 022 Adult depression screening assessment No [facility] 250 DO Work Phone: Fall risk assessment a) No falls within the last year [facility] 250 DO Work Phone: Tobacco use status [facility] b) No M [facility] 250 DO Work Phone: Vital Signs Date Time Vital Sign Value Performing Clinician Facility 01-17-2025 15:35-0400 Diastolic blood pressure 78 mm[Hg] Cecilia Garcia MD Work Phone: [facility] 01-17-2025 15:35-0400 Systolic blood pressure 136 mm[Hg] Cecilia Garcia MD Work Phone: [facility] 01-09-2025 08:06-0400 Diastolic blood pressure 72 mm[Hg] Seng Angeles SECURITY INCIDENT HANDLER-CAREER DEVELOPMENT DIRECTOR Work Phone: [place] 01-09-2025 08:06-0400 Systolic blood pressure 140 mm[Hg] Seng Angeles SECURITY INCIDENT HANDLER-CAREER DEVELOPMENT DIRECTOR Work Phone: [place] 01-09-2025 07:53-0400 Body height 180.3 cm Seng Angeles SECURITY INCIDENT HANDLER-CAREER DEVELOPMENT DIRECTOR Work Phone: [place] 01-09-2025 07:53-0400 Body mass index (BMI) [Ratio] 22.43 kg/m2 Seng Angeles SECURITY INCIDENT HANDLER-CAREER DEVELOPMENT DIRECTOR Work Phone: [place] 01-09-2025 07:53-0400 Body weight 72.94 kg Seng Angeles APRN-CAREER DEVELOPMENT DIRECTOR Work Phone: [place] 01-09-2025 07:53-0400 Heart rate 72 /min Seng Angeles SECURITY INCIDENT HANDLER-CAREER DEVELOPMENT DIRECTOR Work Phone: [place] 12-26-2024 16:01-0400 Diastolic blood pressure 98 mm[Hg] Seng Angeles SECURITY INCIDENT HANDLER-CAREER DEVELOPMENT DIRECTOR Work Phone: [place] 12-26-2024 16:01-0400 Systolic blood pressure 164 mm[Hg] Seng Angeles SECURITY INCIDENT HANDLER-CAREER DEVELOPMENT DIRECTOR Work Phone: [place] 12-26-2024 15:56-0400 Body height 180.3 cm Seng Angeles SECURITY INCIDENT HANDLER-CAREER DEVELOPMENT DIRECTOR Work Phone: [place] 12-26-2024 15:56-0400 Body mass index (BMI) [Ratio] 22.82 kg/m2 Seng Angeles SECURITY INCIDENT HANDLER-CAREER DEVELOPMENT DIRECTOR Work Phone: [place] 12-26-2024 15:56-0400 Body weight 74.21 kg Seng Angeles SECURITY INCIDENT HANDLER-CAREER DEVELOPMENT DIRECTOR Work Phone: [place] 12-26-2024 15:56-0400 Heart rate 60 /min Seng Angeles SECURITY INCIDENT HANDLER-CAREER DEVELOPMENT DIRECTOR Work Phone: [place] 12-03-2024 09:37-0400 Body mass index (BMI) [Ratio] 23.63 kg/m2 Jaquiray GavinCheam HARMONIC ANALYST Work Phone: [facility] 12-03-2024 09:37-0400 Body weight 72.58 kg Jaqui Chema HARMONIC ANALYST Work Phone: [facility] 12-03-2024 09:37-0400 Diastolic blood pressure 90 mm[Hg] Jaqui Bernardston HARMONIC ANALYST Work Phone: [facility] 12-03-2024 09:37-0400 Heart rate 63 /min Jaqui Bernardston HARMONIC ANALYST Work Phone: [facility] 12-03-2024 09:37-0400 SaO2% (BldA) [Mass fraction] 96 % Jaqui Bernardston HARMONIC ANALYST Work Phone: [facility] 12-03-2024 09:37-0400 Systolic blood pressure 150 mm[Hg] Jaqui Bear HARMONIC ANALYST Work Phone: [facility] 11-27-2024 10:09-0400 Body height 175.3 cm Juan Williamdeanna DO Work Phone: [facility] 11-27-2024 10:09-0400 Body mass index (BMI) [Ratio] 23.63 kg/m2 Juan Guzman DO Work Phone: [facility] 11-27-2024 10:09-0400 Body weight 72.58 kg Juan Williamdeanna DO Work Phone: [facility] 11-20-2024 17:00-0400 Diastolic blood pressure 81 mm[Hg] Nirav Bello DO Work Phone: [facility] 11-20-2024 17:00-0400 Heart rate 66 /min Nirav Bello DO Work Phone: [facility] 11-20-2024 17:00-0400 Respiratory rate 16 /min Nirav Bello DO Work Phone: [facility] 11-20-2024 17:00-0400 SaO2% (BldA) [Mass fraction] 95 % Nirav Bello DO Work Phone: [facility] 11-20-2024 17:00-0400 Systolic blood pressure 158 mm[Hg] Nirav Bello DO Work Phone: [facility] 11-20-2024 15:24-0400 Body temperature 97.2 [degF] Nirav Bello DO Work Phone: [facility] 11-20-2024 15:24-0400 Inhaled oxygen flow rate 8 L/min Nirav Bello DO Work Phone: [facility] 11-20-2024 13:26-0400 Body height 177.8 cm Nirav Bello DO Work Phone: [facility] 11-20-2024 13:26-0400 Body weight 72.57 kg Nirav Bello DO Work Phone: [facility] 11-14-2024 09:37-0400 Body height 175.3 cm Nirav Bello DO Work Phone: [facility] 11-14-2024 09:37-0400 Body mass index (BMI) [Ratio] 23.49 kg/m2 Nirav Bello DO Work Phone: [facility] 11-14-2024 09:37-0400 Body weight 72.17 kg Nirav Bello DO Work Phone: [facility] 11-14-2024 09:37-0400 Heart rate 67 /min Nirav Bello DO Work Phone: [facility] 11-14-2024 09:37-0400 SaO2% (BldA) [Mass fraction] 97 % Nirav Bello DO Work Phone: [facility] 11-09-2024 09:21-0400 Body height 175.3 cm Juan Guzman DO Work Phone: [facility] 11-09-2024 09:21-0400 Body mass index (BMI) [Ratio] 25.1 kg/m2 Juan Biedenlokesh DO Work Phone: [facility] 11-09-2024 09:21-0400 Body weight 77.11 kg Juan Biedenlokesh DO Work Phone: [facility] 10-02-2024 11:54-0400 Body height 180.3 cm Missy Khoury MD Work Phone: [place] 10-02-2024 11:54-0400 Body mass index (BMI) [Ratio] 23.15 kg/m2 Missy Khoury MD Work Phone: [place] 10-02-2024 11:54-0400 Body weight 75.3 kg Missy Khoury MD Work Phone: [place] 10-02-2024 11:54-0400 Diastolic blood pressure 64 mm[Hg] Missy Khoury MD Work Phone: [place] 10-02-2024 11:54-0400 Heart rate 64 /min Missy Khoury MD Work Phone: [place] 10-02-2024 11:54-0400 Systolic blood pressure 142 mm[Hg] Missy Khoury MD Work Phone: [place] 09-04-2024 08:03-0400 Body height 175.3 cm Nirav Bello DO Work Phone: [facility] 09-04-2024 08:03-0400 Body mass index (BMI) [Ratio] 24.96 kg/m2 Nirav Bello DO Work Phone: [facility] 09-04-2024 08:03-0400 Body weight 76.66 kg Nirav Bello DO Work Phone: [facility] 09-04-2024 08:03-0400 Diastolic blood pressure 72 mm[Hg] Nirav Bello DO Work Phone: [facility] 09-04-2024 08:03-0400 Heart rate 62 /min Nirav Bello DO Work Phone: [facility] 09-04-2024 08:03-0400 SaO2% (BldA) [Mass fraction] 96 % Nirav Bello DO Work Phone: [facility] 09-04-2024 08:03-0400 Systolic blood pressure 138 mm[Hg] Nirav Bello DO Work Phone: [facility] 08-09-2024 11:25-0400 Diastolic blood pressure 87 mm[Hg] Nirav Bello DO Work Phone: [facility] 08-09-2024 11:25-0400 Heart rate 74 /min Nirav Bello DO Work Phone: [facility] 08-09-2024 11:25-0400 Respiratory rate 16 /min Nirav Bello DO Work Phone: [facility] 08-09-2024 11:25-0400 SaO2% (BldA) [Mass fraction] 96 % Niravata Bello DO Work Phone: [facility] 08-09-2024 11:25-0400 Systolic blood pressure 171 mm[Hg] Nriav Ace DO Work Phone: [facility] 08-09-2024 10:05-0400 Body height 180.34 cm Nirav Bello DO Work Phone: [facility] 08-09-2024 10:05-0400 Body temperature 97.5 [degF] Nirav Ace DO Work Phone: [facility] 08-09-2024 10:05-0400 Body weight 75.29 kg Niravata Bello DO Work Phone: [facility] 05-10-2024 09:57-0500 Body height 175.3 cm Niravata Bello DO Work Phone: [facility] 05-10-2024 09:57-0500 Body mass index (BMI) [Ratio] 24.81 kg/m2 Niravata Bello DO Work Phone: [facility] 05-10-2024 09:57-0500 Body weight 76.2 kg Nirav Ace DO Work Phone: [facility] 05-10-2024 09:57-0500 Diastolic blood pressure 66 mm[Hg] Nirav Bello DO Work Phone: [facility] 05-10-2024 09:57-0500 Heart rate 72 /min Nirav Bello DO Work Phone: [facility] 05-10-2024 09:57-0500 SaO2% (BldA) [Mass fraction] 97 % Nirav Bello DO Work Phone: [facility] 05-10-2024 09:57-0500 Systolic blood pressure 136 mm[Hg] Nirav Bello DO Work Phone: [facility] 05-01-2024 14:07-0500 Diastolic blood pressure 94 mm[Hg] Missy Khoury MD Work Phone: [place] 05-01-2024 14:07-0500 Systolic blood pressure 174 mm[Hg] Missy Khoury MD Work Phone: [place] 05-01-2024 13:39-0500 Body height 180.3 cm Missy Khoury MD Work Phone: [place] 05-01-2024 13:39-0500 Body mass index (BMI) [Ratio] 23.99 kg/m2 Missy Khoury MD Work Phone: [place] 05-01-2024 13:39-0500 Body weight 78.02 kg Missy Khoury MD Work Phone: [place] 05-01-2024 13:39-0500 Heart rate 48 /min Missy Khoury MD Work Phone: [place] 02-21-2024 07:52-0400 Body height 180.[address] 02-21-2024 07:52-0400 Body mass index (BMI) [Ratio] 23.71 kg/m2 [address] 02-21-2024 07:52-0400 Body weight 77.[address] 02-21-2024 07:52-0400 Diastolic blood pressure 84 mm[Hg] [address] 02-21-2024 07:52-0400 Systolic blood pressure 142 mm[Hg] [address] 02-07-2024 09:44-0400 Diastolic blood pressure 86 mm[Hg] [address] 02-07-2024 09:44-0400 Heart rate 66 /min [address] 02-07-2024 09:44-0400 Systolic blood pressure 138 mm[Hg] Sindi 1 [place] 01-13-2024 16:15-0400 Diastolic blood pressure 100 mm[Hg] Missy Khoury MD Work Phone: [place] 01-13-2024 16:15-0400 Systolic blood pressure 162 mm[Hg] Missy Khoury MD Work Phone: [place] 01-13-2024 15:24-0400 Body height 180.3 cm Missy Khoury MD Work Phone: [place] 01-13-2024 15:24-0400 Body mass index (BMI) [Ratio] 23.71 kg/m2 Missy Khoury MD Work Phone: [place] 01-13-2024 15:24-0400 Body weight 77.11 kg Missy Khoury MD Work Phone: [place] 01-13-2024 15:24-0400 Heart rate 72 /min Missy Khoury MD Work Phone: [place] 01-11-2024 09:54-0400 Body height 175.3 cm Nirav Bello DO Work Phone: [facility] 01-11-2024 09:54-0400 Body mass index (BMI) [Ratio] 24.22 kg/m2 Nirav Bello DO Work Phone: [facility] 01-11-2024 09:54-0400 Body weight 74.39 kg Nirav Bello DO Work Phone: [facility] 01-11-2024 09:54-0400 Heart rate 75 /min Nirav Bello DO Work Phone: [facility] 01-11-2024 09:54-0400 SaO2% (BldA) [Mass fraction] 97 % Nirav Bello DO Work Phone: [facility] 07-13-2023 08:34-0500 Body height 180.3 cm Epifanio Davis MD Work Phone: [place] 07-13-2023 08:34-0500 Body mass index (BMI) [Ratio] 23.99 kg/m2 Epifanio Davis MD Work Phone: [place] 07-13-2023 08:34-0500 Body weight 78.02 kg Epifanio Davis MD Work Phone: [place] 07-13-2023 08:34-0500 Diastolic blood pressure 64 mm[Hg] Epifanio Davis MD Work Phone: [place] 07-13-2023 08:34-0500 Heart rate 60 /min Epifanio Davis MD Work Phone: [place] 07-13-2023 08:34-0500 Systolic blood pressure 108 mm[Hg] Epifanio Davis MD Work Phone: [place] 11-17-2022 14:15-0400 Body height 180.34 cm Imad Asaad Other [facility] [employer] Other 11-17-2022 14:15-0400 Body mass index (BMI) [Ratio] 23.71 kg/m2 Imad Asaad Other [facility] [employer] Other 11-17-2022 14:15-0400 Body weight 77.11 kg Imad Asaad Other [facility] [employer] Other 11-17-2022 14:15-0400 Diastolic blood pressure 78 mm[Hg] Imad Asaad Other [email or web address] Other 11-17-2022 14:15-0400 Systolic blood pressure 127 mm[Hg] Imad Asaad Other [facility] [employer] Other 07-14-2022 09:08-0500 Body height 180.34 cm [facility]av [facility]ello [facility] Work Phone: 07-14-2022 09:08-0500 Body mass index (BMI) [Ratio] 24.13 kg/m2 Nirav Bello Work Phone: [facility] DO Work Phone: 07-14-2022 09:08-0500 Body surface area Derived from formula 1.98 m2 Nirav Bello Work Phone: [facility] DO Work Phone: 07-14-2022 09:08-0500 Body weight 78.47 kg Nirav Bello Work Phone: [facility] DO Work Phone: 07-14-2022 09:08-0500 Diastolic blood pressure 78 mm[Hg] Nirav Bello Work Phone: [facility] DO Work Phone: 07-14-2022 09:08-0500 Heart rate 68 /min Nirav Bello Work Phone: [facility] DO Work Phone: 07-14-2022 09:08-0500 Systolic blood pressure 124 mm[Hg] Nirav Bello Work Phone: [facility] DO Work Phone: 07-03-2021 15:20-0500 Diastolic blood pressure 78 mm[Hg] Nirav Bello Work Phone: [facility] DO Work Phone: 07-03-2021 15:20-0500 Heart rate 65 /min Nirav Bello Work Phone: [facility] DO Work Phone: 07-03-2021 15:20-0500 Systolic blood pressure 136 mm[Hg] Nirav Yarbroughman Work Phone: [facility] DO Work Phone: 07-03-2021 15:17-0500 Body height 180.34 cm Nirav Yarbroughman Work Phone: [facility] DO Work Phone: 07-03-2021 15:17-0500 Body mass index (BMI) [Ratio] 24.97 kg/m2 Nirav Yarbroughman Work Phone: [facility] DO Work Phone: 07-03-2021 15:17-0500 Body surface area Derived from formula 2.01 m2 Nirav Bello Work Phone: [facility] DO Work Phone: 07-03-2021 15:17-0500 Body weight 81.19 kg Nirav Yarbroughman Work Phone: [facility] DO Work Phone: 07-03-2021 15:17-0500 Diastolic blood pressure 80 mm[Hg] Nirav Yarbroughman Work Phone: [facility] DO Work Phone: 07-03-2021 15:17-0500 Systolic blood pressure 151 mm[Hg] Nirav Bello Work Phone: [facility] DO Work Phone: Encounters Encounter Date Encounter Type Care Provider Facility Start: 01-17-2025 End: 01-17-2025 Nanette Garcia MD Work Phone: [facility] Start: 01-17-2025 End: 01-17-2025 Nanette Garcia MD Work Phone: [facility] Start: 01-17-2025 End: 01-17-2025 Patient encounter procedure [facility] Comment on above: 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 Start: 01-17-2025 End: 01-17-2025 ambulatory CECILIA GARCIA Not Available Start: 01-09-2025 End: 01-09-2025 Office outpatient visit 10 minutes Seng Ashley Angeles SECURITY INCIDENT HANDLER-CAREER DEVELOPMENT DIRECTOR Work Phone: [facility] Comment on above: BMI 22.0-22.9, adult (Primary Dx); Primary hypertension; 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) Start: 01-09-2025 End: 01-09-2025 ambulatory [facility] Amb[facility] Start: 12-26-2024 End: 12-26-2024 Office outpatient visit 10 minutes Seng Angeles SECURITY INCIDENT HANDLER-CAREER DEVELOPMENT DIRECTOR Work Phone: [facility] Comment on above: Primary hypertension Start: 12-26-2024 End: 12-26-2024 ambulatory [facility] Amb[facility] Start: 12-20-2024 End: 12-20-2024 Patient encounter procedure Miller Donald MD -Pet Scan Work Phone: Start: 12-20-2024 End: 12-20-2024 ambulatory Nirav Bello DO Work Phone: [facility] Work Phone: Start: 12-07-2024 End: 12-07-2024 Bamboo flowsheet Laura Hensley MD Work Phone: [facility] Start: 12-07-2024 End: 12-07-2024 Bamboo flowsheet Laura Hensley MD Work Phone: [facility] Start: 12-07-2024 End: 12-07-2024 Office outpatient visit 10 minutes Laura Hensley MD Work Phone: [facility] Comment on above: Actinic keratosis (P rimary Dx); Spitting suture, initial encounter Start: 12-07-2024 End: 12-07-2024 ambulatory LAURA HENSLEY Not Available Start: 12-03-2024 End: 12-03-2024 Office outpatient visit 25 minutes Jaqui Bear HARMONIC ANALYST Work Phone: [facility] Comment on above: Acute cystitis with hematuria (Primary Dx); Dysuria Start: 12-03-2024 End: 12-03-2024 ambulatory LAURA HENSLEY Not Available Start: 11-27-2024 End: 11-27-2024 Bamboo flowsheet Juan Guzman DO Work Phone: [facility] Start: 11-27-2024 End: 11-27-2024 Bamboo flowsheet Juan Guzman DO Work Phone: [facility] Start: 11-27-2024 End: 11-27-2024 Postop follow up visit related to original px Juan Guzman DO Work Phone: [facility] Comment on above: 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); Chronic anticoagulation Start: 11-27-2024 End: 11-27-2024 ambulatory JUAN GUZMAN Not Available Start: 11-20-2024 End: 11-20-2024 External Result Encounter Juan Guzman DO Work Phone: [facility] Unsolicited Start: 11-20-2024 End: 11-20-2024 External Result Encounter Juan Guzman DO Work Phone: [facility] Unsolicited Start: 11-20-2024 End: 11-20-2024 Admission to same day surgery center Juan Guzman DO -[facility] [place] Start: 11-20-2024 End: 11-20-2024 ambulatory Nirav Ace DO Work Phone: [facility] Work Phone: Start: 11-16-2024 ambulatory Facility:[facility] Start: 11-14-2024 End: 11-14-2024 Patient encounter procedure Juan Guzman DO -Pre-Surgical Testing Work Phone: Start: 11-14-2024 End: 11-14-2024 ambulatory Nirav Bello Facility:[facility] Start: 11-14-2024 Encounter for preprocedural cardiovascular examination Juan Guzman [facility] Start: 11-14-2024 End: 11-14-2024 Office outpatient visit 25 minutes Nirav Bello DO Work Phone: [facility] Comment on above: Stage 3a chronic kid gui disease (CMS-HCC) (Primary Dx); Type 2 diabetes mellitus with other specified complication, without long-term current use of insulin (HCC); Primary hypertension ; PAF (paroxysmal atrial fibrillation) (HCC); Mixed hyperlipidemia ; Medicare annual wellness visit, subsequent; Advance care planning Start: 11-14-2024 End: 11-14-2024 Patient encounter procedure Nirav Bello DO Work Phone: [facility] Start: 11-14-2024 End: 11-14-2024 ambulatory NIRAV YARBROUGHMAN Not Available Start: 11-13-2024 End: 11-13-2024 Clinisync Result Encounter Generic External Data Provider [facility] External Department Unsolicited Start: 11-13-2024 End: 11-13-2024 Clinisync Result Encounter Generic External Data Provider [facility] External Department Unsolicited Start: 11-09-2024 End: 11-09-2024 Bamboo flowsheet Juan Guzman DO Work Phone: [facility] Start: 11-09-2024 End: 11-09-2024 Bamboo flowsheet Juan Guzman DO Work Phone: [facility] Start: 11-09-2024 End: 11-09-2024 Office outpatient visit 40 minutes Juan Guzman DO Work Phone: [facility] Comment on above: Chronic anticoagulat ion (Primary Dx); Squamous cell carcinoma of skin of face Start: 11-09-2024 End: 11-09-2024 ambulatory JUAN GUZAMN Not Available Start: 10-30-2024 End: 10-30-2024 Clinisync Result Encounter Nirav Bello DO Work Phone: [facility] External Department Unsolicited Start: 10-30-2024 End: 10-30-2024 Clinisync Result Encounter Nirav Vargas Ace DO Work Phone: [facility] External Department Unsolicited Start: 10-26-2024 End: 10-26-2024 Bamboo linda Hensley MD Work Phone: [facility] Start: 10-26-2024 End: 10-26-2024 Nanette Hensley MD Work Phone: [facility] Start: 10-26-2024 End: 10-26-2024 Office outpatient visit 15 minutes Laura Hensley MD Work Phone: [facility] Comment on above: Seborrheic keratosis (Primary Dx); Lentigines; Actinic keratosis; Neoplasm of unspecified behavior of bone, soft tissue, and skin; History of malignant neoplasm of skin Start: 10-26-2024 End: 10-26-2024 ambulatory LAURA HENSLEY Not Available Start: 10-02-2024 End: 10-02-2024 Office outpatient visit 25 minutes Missy Khoury MD Work Phone: [facility] Comment on above: Paroxysmal atrial fi [...] Former smoker Start: 10-02-2024 End: 10-02-2024 ambulatory [facility] Ambulatory Start: 09-13-2024 End: 09-13-2024 Bamboo flowsheet Aamir Nance MD Work Phone: [facility] Start: 09-13-2024 End: 09-13-2024 Bamboo flowsheet Aamir Nance MD Work Phone: [facility] Start: 09-13-2024 End: 09-13-2024 Postop follow up visit related to original px Aamir Nance MD Work Phone: [facility] Comment on above: Encounter for remova l of sutures Start: 09-13-2024 End: 09-13-2024 ambulatory AAMIR NANCE Not Available Start: 09-04-2024 End: 09-04-2024 Office outpatient visit 40 minutes Nirav Bello DO Work Phone: [facility] Comment on above: PAF [...] encounter procedure Laura Hensley MD Work Phone: [facility] Comment on above: Squamous cell carcin [...] surgery center Nirav Bello DO Work Phone: [facility] [place] Start: 08-09-2024 End: 08-09-2024 ambulatory Nirav Bello DO Work Phone: [facility] Work Phone: Start: 08-04-2024 End: 08-04-2024 ambulatory OLGA DALEY Not Available Start: 07-26-2024 End: 07-26-2024 Patient encounter procedure Laura Hensley MD Work Phone: [facility] Comment on above: 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, including hip (Primary Dx) Start: 07-26-2024 End: 07-26-2024 ambulatory LAURA HENSLEY Not Available Start: 07-26-2024 End: 07-26-2024 Bamrichie Hensley MD Work Phone: [facility] Start: 07-26-2024 End: 07-26-2024 Nanette Hensley MD Work Phone: [facility] Start: 07-14-2024 End: 07-14-2024 Nanette Hensley MD Work Phone: [facility] Start: 07-14-2024 End: 07-14-2024 Nanette Hensley MD Work Phone: [facility] Start: 07-14-2024 End: 07-14-2024 Patient encounter procedure Laura Hensley MD Work Phone: [facility] Comment on above: Neoplasm of unspecif ied behavior of bone, soft tissue, and skin (Primary Dx); Encounter for removal of sutures Start: 07-14-2024 End: 07-14-2024 ambulatory LAURA A PETITTI Not Available Start: 07-06-2024 End: 07-06-2024 Clinisync Result Encounter Generic External Data Provider [facility] External Department Unsolicited Start: 07-06-2024 End: 07-06-2024 Clinisync Result Encounter Generic External Data Provider [facility] External Department Unsolicited Start: 06-30-2024 End: 06-30-2024 Bamrichie Hensley MD Work Phone: [facility] Start: 06-30-2024 End: 06-30-2024 Bamboo flowsheet Laura Hensley MD Work Phone: [facility] Start: 06-30-2024 End: 06-30-2024 Patient encounter procedure Laura Hensley MD Work Phone: [facility] Comment on above: Basal cell carcinoma (BCC) of skin of left upper extremity including shoulder (Primary Dx); Skin neoplasm Start: 06-30-2024 End: 06-30-2024 ambulatory LAURA HENSLEY Not Available Start: 05-10-2024 End: 05-10-2024 Bamboo flowsheet Nirav Bello DO Work Phone: [facility] Start: 05-10-2024 End: 05-10-2024 Bamboo flowsheet Nirav Bello DO Work Phone: [facility] Start: 05-10-2024 End: 05-10-2024 Office outpatient visit 40 minutes Nirav Bello DO Work Phone: [facility] Comment on above: Allergic sinusitis ( Primary Dx); Type 2 diabetes mellitus with other specified complication, without long-term current use of insulin ([facility]/HCC); Primary hypertension ([facility]/HCC); PAF (paroxysmal atrial fibrillation) ([facility]/HCC); Exocrine pancreatic insufficiency (CMS/HCC); Stage 3a chronic kidney disease (HCC) ([facility]/HCC); Mixed hyperlipidemia ([facility]/HCC); Chest pain, unspecified type Start: 05-10-2024 End: 05-10-2024 ambulatory NIRAV BELLO Not Available Start: 05-01-2024 End: 05-01-2024 Office outpatient visit 25 minutes Missy Khoury MD Work Phone: [facility] Comment on above: Encounter to discuss test results (Primary Dx); Paroxysmal atrial fibrillation (Multi); Nonrheumatic mitral valve regurgitation; 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); Essential hypertension; Prostate cancer (Multi); PVC (premature ventricular contraction); Mixed hyperlipidemia; Type 2 diabetes mellitus without complication, without long-term current use of insulin (Multi); 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 Comment on above: PVC (premature ventr icular contraction); Paroxysmal atrial fibrillation (Multi) Start: 02-07-2024 End: 02-07-2024 Subsequent hospital visit by physician Sindi Farr Nm [address] [facility] Comment on above: PVC (premature ventr icular contraction); 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; Ventricular arrhythmia; Abnormal electrocardiogram (ECG) (EKG) Start: 02-07-2024 End: 02-07-2024 [facility] Start: 02-03-2024 End: 02-03-2024 Clinisync Result Encounter Generic External Data Provider [facility] External Department Unsolicited Start: 02-03-2024 End: 02-03-2024 Clinisync Result Encounter Generic External Data Provider [facility] External Department Unsolicited Start: 01-13-2024 End: 01-13-2024 Office outpatient visit 25 minutes Missy Khoury MD Work Phone: [facility] Comment on above: Ventricular arrhythm ia (Primary Dx); PVC (premature ventricular contraction); Paroxysmal atrial fibrillation (Multi); 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; [facility]FP current use of 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; High risk medication use; Mixed hyperlipidemia; Uncontrolled hypertension; Former smoker; Type 2 diabetes mellitus without complication, without long-term current use of insulin (Multi); Stage 3a chronic kidney disease (Multi); Prostate cancer (Multi); Abnormal electrocardiogram (ECG) (EKG) Start: 01-13-2024 End: 01-13-2024 ambulatory [facility] Ambulatory Start: 01-11-2024 End: 01-11-2024 Office outpatient visit 25 minutes Nirav Bello DO Work Phone: [facility] Comment on above: Primary hypertension (CMS/HCC) (Primary Dx); PAF (paroxysmal atrial fibrillation) (CMS/HCC); Stage 3a chronic kidney disease (HCC) (CMS/HCC); Type 2 diabetes mellitus with other specified complication, without long-term current use of insulin (CMS/HCC) Start: 09-13-2023 End: 09-13-2023 ambulatory DO Nirav Bello Work Phone: [facility] Work Phone: Start: 09-13-2023 End: 09-13-2023 Patient encounter procedure DO Nirav Bello Work Phone: [facility] Work Phone: Start: 07-13-2023 End: 07-13-2023 Office outpatient visit 25 minutes Epifanio Davis MD Work Phone: [facility] Comment on above: Benign essential hyp ertension (Primary Dx); Mixed hyperlipidemia; Paroxysmal atrial fibrillation (CMS/HCC); Former smoker Start: 11-26-2022 End: 11-26-2022 ambulatory DO Nirav Bello Work Phone: [facility] Work Phone: Start: 11-26-2022 End: 11-26-2022 Patient encounter procedure DO Nirav Bello Work Phone: [facility] Scan [facility] [place] Work Phone: Start: 11-17-2022 End: 11-17-2022 ambulatory Imad Asaad Other [facility] [employer] Other Start: 11-17-2022 Office outpatient ne w 45 minutes Imad Asaad [facility] Start: 11-17-2022 Telephone encounter Imad Asaad [facility] Start: 09-03-2022 End: 09-04-[address] NIRAV BELLO Facility:H1 Start: 07-14-2022 Office outpatient vi sit 25 minutes Nirav Bello Work Phone: [facility] 250 DO Work Phone: Start: 07-14-[address] Nirav Kulkarni Facility:[id number] Start: 05-25-2022 End: 05-26-[address] NIRAV BELLO Facility:H1 Start: 05-06-2022 End: 05-07-[address] NIRAV BELLO Facility:H1 Start: 03-27-2022 Rx Renewal Nirav mae Work Phone: [facility] 250 DO Work Phone: Start: 12-05-2021 End: 12-05-2021 Patient encounter procedure DO Nirav Bello Work Phone: [facility]-Pre-Surgical Testing Start: 11-20-2021 End: 11-21-[address] DOCTOR BISHOP Facility:H1 Start: 11-05-2021 End: 11-06-[address] NIRAV BELLO Facility:H1 Start: 07-03-2021 Office outpatient vi sit 25 minutes Nirav Bello Work Phone: [facility] 250 DO Work Phone: Start: 03-05-2021 Rx Renewal Marina lozaad MD Work Phone: [facility] 250 DO Work Phone: Start: 07-12-2020 End: 07-12-2020 Discharged Recurring Nirav Bello [facility]-Covid Vaccine Procedures Date Procedure Procedure Detail Performing Clinician Start: 01-17-2025 MOHS SURGERY Cecilia valles MD Work Phone: Start: 12-20-2024 Positron emission tomography Nirav Bello DO Work Phone: Start: 12-03-2024 URINARY TRACT INFECT ION (HTRX) Robin Bajwa DO Work Phone: Start: 12-03-2024 Urnls dip stick/tabl et rgnt non-auto w/o micrscp Robin Bajwa DO Work Phone: Start: 11-20-2024 GLUCOSE POCT GLUCOMETERS Juan Guzman DO Work Phone: Start: 11-20-2024 Excision of lesion of cheek Nirav Bello DO Work Phone: Start: 11-20-2024 GLUCOSE POCT GLUCOMETERS Juan Guzman DO Work Phone: Start: 11-14-2024 Hemoglobin glycosylated a1c Nirav Bello DO Work Phone: Start: 11-13-2024 ALL CBC WITH AUTO DIFF Generic External Data Provider Start: 10-30-2024 ALL CBC WITH AUTO DIFF [...] Phone: Start: 07-06-2024 [facility] CMP (CMP) (FOR [facility] USE) Generic External Data Provider Start: [...] By: #### L IPID, TSH, CMP #### [facility] [address] [place], [place] [address] Dr. Leesa Urbina Start: 11-20-[address] DOCTOR BISHOP Comment on above: Performed By: #### P SAD #### [facility] [address] [place] [id number] Leesa Urbina Appendectomy Nirav daniel Work Phone: Cataract surgery Nirav morris Work Phone: Colonoscopy Nirav daniel Work Phone: Comment on above: [id number] Jovanny Yu; Operation on lip Nirav morris Work Phone: Prostatectomy Nirav mae Work Phone: Plan of Treatment Date Care Activity Detail Author Start: 12-24-2032 Screening for malignant neoplasm of colon [facility] Start: 03-16-2026 Glaucoma screening Diabetes: Retinopathy Screening [facility] Start: 11-14-2025 Medicare Annual Wellness (AWV) Medicare Annual Wellness (AWV) [facility] Start: 11-08-2025 Screening for osteoporosis Bone Density Scan [place] Start: 10-30-2025 Urine screening for protein Diabetes: Urine Protein Screening [facility] Start: 07-12-2025 End: 07-12-2025 Patient encounter procedure 07/12/2025 10:00 AM EST Office Visit [facility] [address] [facility] [address] [place] [address] Missy Khoury MD [address] [facility] [address] [place], [place] [id number] [facility] Start: 05-21-2025 End: 05-21-2025 Patient encounter procedure [facility] Start: 04-26-2025 End: 04-26-2025 Patient encounter procedure [facility] Start: 02-14-2025 Hemoglobin A1c measurement Diabetes: Hemoglobin A1C [facility] Start: 01-22-2025 Influenza vaccination Influenza Vaccine (#1) [facility] Start: 01-17-2025 End: 01-17-2025 Patient encounter procedure [facility] Comment on above: Arrived Start: 01-09-2025 End: 01-09-2025 Patient encounter procedure 01/09/2025 8:00 AM EDT Office Visit [facility] [address] [facility] [address] [place] [address] Seng Angeles, SECURITY INCIDENT HANDLER-CAREER DEVELOPMENT DIRECTOR [address] [facility] [address] [place] [address] [place] [address] [facility] Start: 12-14-2024 End: 12-14-2024 Patient encounter procedure 12/14/2024 10:30 AM EDT Office Visit [facility] [address] [facility] [address] [place] [address] Missy Khoury MD [address] [facility] [address] [place] [address] [facility] Start: 12-07-2024 End: 12-07-2024 Patient encounter procedure [facility] Comment on above: Arrived Start: 11-27-2024 End: 11-27-2024 Patient encounter procedure [facility] [place] Comment on above: Arrived Start: 11-20-2024 [facility] Start: 11-14-2024 End: 11-14-2024 Patient encounter procedure 11/14/2024 9:30 AM EDT Office Visit [facility] [address] [place] [address] Nirav Bello DO [address] [place] [address] [facility] Start: 11-09-2024 End: 11-09-2024 Patient encounter procedure [facility] Comment on above: Squamous cell carcinoma of skin of face Start: 10-31-2024 Urine screening for protein Diabetes: Urine Protein Screening [facility] Start: 10-26-2024 End: 10-26-2024 Patient encounter procedure [facility] Comment on above: Arrived Start: 10-02-2024 End: 10-02-2024 Patient encounter procedure 10/02/2024 11:45 AM EDT Office Visit [facility] [address] [place] [address] Missy Khoury MD [address] [place] [address] [facility] Start: 09-22-2024 COVID-19 Vaccine () COVID-19 Vaccine () [place] Start: 09-13-2024 End: 09-13-2024 Patient encounter procedure [facility] Comment on above: Arrived Start: 08-30-2024 End: 08-30-2024 Patient encounter procedure 08/30/2024 10:30 AM EDT Office Visit [facility] [address] [place] [address] Laura Hensley MD [address] [place] [address] [facility] Start: 08-09-2024 [facility] Start: 08-08-2024 Hemoglobin A1c measurement Diabetes: Hemoglobin A1C [facility] Start: 07-26-2024 End: 07-26-2024 Patient encounter procedure 07/26/2024 2:50 PM EST Office Visit [facility] [address] [place] [address] Laura Hensley MD [address] [place] [address] Arrived [facility] Comment on above: Arrived Start: 07-18-2024 End: 07-18-2024 Patient encounter procedure [facility] Start: 07-14-2024 End: 07-14-2024 Patient encounter procedure [facility] Comment on above: Arrived Start: 06-30-2024 End: 06-30-2024 Patient encounter procedure [facility] Comment on above: Arrived Start: 05-22-2024 End: 05-22-2024 Patient encounter procedure 05/22/2024 8:30 AM EST Office Visit [facility] [address] [place] [phone] Nirav Bello, [address] [place] [address] [facility] Start: 05-12-2024 Medicare Annual Wellness (AWV) Medicare Annual Wellness (AWV) [facility] Start: 05-10-2024 End: 05-10-2024 Patient encounter procedure 05/10/2024 9:30 AM EST Office Visit [facility] [address] [place] [phone] Nirav Bello, [address] [place] [address] Other thrombophilia (CMS/HCC) [facility] Comment on above: Other thrombophilia (CMS/HCC) Start: 05-01-2024 End: 05-01-2024 Patient encounter procedure 05/01/2024 1:45 PM EST Office Visit [facility] [address] [facility] [address] [place] [phone] Missy Khoury MD [address] [facility] [address] [place] [address] [facility] Start: 04-27-2024 End: 04-27-2024 Patient encounter procedure [facility] Comment on above: Arrived Start: 02-28-2024 End: 02-28-2024 Patient encounter procedure 02/28/2024 3:30 PM EDT [facility] [address] [place] [address] Missy Khoury MD [address] [facility] [address] [place] [address] [facility] Start: 02-21-2024 End: 02-21-2024 Patient encounter procedure 02/21/2024 7:45 AM EDT [facility] [address] [place] [address] [facility] Start: 02-07-2024 End: 02-07-2024 Professional / ancillary services management 02/07/2024 11:00 AM EDT Ancillary Procedure [facility] [facility] [address] [place] [address] [facility] Start: 02-07-2024 End: 02-07-2024 Patient encounter procedure 02/07/2024 10:15 AM EDT [facility]ment [facility] [address] [place] [phone] [facility] Start: 02-07-2024 End: 02-07-2024 Patient encounter procedure Josh De La Cruz Start: 01-27-2024 End: 01-12-2025 Basic metabolic 2000 panel - Serum or Plasma Basic Metabolic Panel Lab Routine Uncontrolled hypertension Expected: 01/27/2024 (Approximate), Expires: 01/12/2025 [place] Work Phone: Comment on above: Expected: 01/27/2024 (Approximate), Expi res: 01/12/2025 Start: 01-23-2024 COVID-19 Vaccine ( season) COVID-19 Vaccine ( season) [place] Start: 01-23-2024 Influenza vaccination Influenza Vaccine (#1) [facility] Start: 01-13-2024 End: 01-12-2025 Holter monitor study Holter Or Event Assistant Family Teacher Cardiac Services Routine PVC (premature ventricular contraction) Paroxysmal atrial fibrillation (Multi) Expected: 01/13/2024 (Approximate), Expires: 01/12/2025 [place] Work Phone: Comment on above: Expected: 01/13/2024 (Approximate), Expi res: 01/12/2025 Start: 01-13-2024 End: 01-12-2026 NM Heart Perfusion W stress and W radionuclide IV Nuclear Stress Test Cardiac Nuclear Medicine Routine PVC (premature ventricular contraction) 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 Ventricular arrhythmia Abnormal electrocardiogram (ECG) (EKG) Expected: 01/13/2024 (Approximate), Expires: 01/12/2026 [place] Work Phone: Comment on above: Expected: 01/13/2024 (Approximate), Expi res: 01/12/2026 Start: 01-13-2024 End: 01-12-2026 Heart Transthoracic Transthoracic Echo Complete Echocardiography Routine PVC (premature ventricular contraction) Paroxysmal atrial fibrillation (Multi) Expected: 01/13/2024 (Approximate), Expires: 01/12/2026 [facility] Service Area Work Phone: Comment on above: Expected: 01/13/2024 (Approximate), Expi res: 01/12/2026 Start: 12-12-2023 Glaucoma screening Diabetes: Retinopathy Screening [facility] Start: 08-28-2023 COVID-19 Vaccine ( season) COVID-19 Vaccine () [place] Start: 07-13-2023 FUV, Provider: Epifanio Davis, Status: Pen, Time: 8:50 AM FUV, Provider: Epifanio Davis, Status: Pen, Time: 8:50 AM [facility] 250 DO Work Phone: Start: 02-05-2023 Hemoglobin A1c measurement Diabetes: Hemoglobin A1C [facility] Start: 07-14-2022 FUV, Provider: Epifanio Davis, Status: Pen, Time: 9:10 AM FUV, Provider: Epifanio Davis, Status: Pen, Time: 9:10 AM [facility] 250 DO Work Phone: Start: 06-24-2021 FUV, Provider: Epifanio Davis, Status: Pen, Time: 10:15 AM FUV, Provider: Epifanio Davis, Status: Pen, Time: 10:15 AM [facility] 250 DO Work Phone: Start: 2013 RSV High Risk: (Elderly (60+) or Population) (1 - 1-dose 75+ series) RSV High Risk: (Elderly (60+) or Population) (1 - 1-dose 75+ series) [place] Start: 1998 RSV patients and/or patients aged 60+ years (1 - 1-dose 60+ series) RSV patients and/or patients aged 60+ years (1 - 1-dose 60+ series) [place] Start: 1960 DTaP/Tdap/Td Vaccines (1 - Tdap) DTaP/Tdap/Td Vaccines (1 - Tdap) [place] Start: 1957 Urine screening for protein Diabetes: Urine Protein Screening [place] Start: 1948 Diabetic foot examination Diabetes: Foot Exam [place] Start: 1948 Glaucoma screening Diabetes: Retinopathy Screening [place] Start: 1938 Annual wellness visit Welcome to Medicare Visit [place] Start: 1938 Hemoglobin A1c measurement Diabetes: Hemoglobin A1C [place] Start: 1938 Lipid panel Lipid Panel [place] Start: 1938 Medicare Annual Wellness (AWV) Medicare Annual Wellness (AWV) [facility] Start: 1938 Medicare Annual Wellness Visit Medicare Annual Wellness Visit (AWV) [place] Start: 1938 Screening for malignant neoplasm of colon [facility] Start: 1938 Urine screening for protein Diabetes: Urine Protein Screening [place] Dermatopathology exam Dermatopat hology exam Pathology and Cytology Timed Basal cell carcinoma (BCC) of skin of left upper extremity including shoulder Release Upon Ordering for 1 Occurrences starting 06/30/2024 [facility] Work Phone: Comment on above: Release Upon Ordering for 1 Occurrences starting 06/30/2024 Dermatopathology exam Dermatopat hology exam Pathology and Cytology Timed Neoplasm of unspecified behavior of bone, soft tissue, and skin Release Upon Ordering for 1 Occurrences starting 07/14/2024 [facility] Work Phone: Comment on above: Release Upon Ordering for 1 Occurrences starting 07/14/2024 Dermatopathology exam Dermatopat hology exam Pathology and Cytology Timed 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, including hip Release Upon Ordering for 1 Occurrences starting 07/26/2024 [facility] Work Phone: Comment on above: Release Upon Ordering for 1 Occurrences starting 07/26/2024 Dermatopathology exam Dermatopat hology exam Pathology and Cytology Timed Squamous cell carcinoma of skin of left upper limb, including shoulder Release Upon Ordering for 1 Occurrences starting 08/30/2024 [facility] Work Phone: Comment on above: Release Upon Ordering for 1 Occurrences starting 08/30/2024 Dermatopathology exam Dermatopat hology exam Pathology and Cytology Timed Neoplasm of unspecified behavior of bone, soft tissue, and skin Release Upon Ordering for 1 Occurrences starting 10/26/2024 [facility] Work Phone: Comment on above: Release Upon Ordering for 1 Occurrences starting 10/26/2024 HIV 1+2 Ab+HIV1 p24 Ag [Presence] in Serum or Plasma by Immunoassay [facility] Patient Education Know your Meds [facility] Work Phone: Patient referral [facility] Work Phone: Immunizations Immunization Date Immunization Notes Care Provider Fa cility 03-25-2024 COVID-19 (PFIZER) 12Y and older Nirav Bello DO Work Phone: [facility] 03-25-2024 Seasonal trivalent influenza vaccine, adjuvanted, preservative free Missy Khoury MD Work Phone: [place] Work Phone: 03-25-2024 influenza virus vacc ine, unspecified formulation Laura Hensley MD Work Phone: [facility] 04-28-2023 COVID-19 (MODERNA) 12Y and older Nirav Bello DO Work Phone: [facility] 03-20-2023 Influenza, Seasonal, Quadrivalent, Adjuvanted Nirav Bello DO Work Phone: [facility] 03-20-2023 influenza virus vacc ine, unspecified formulation Nirav Bello DO Work Phone: [facility] 04-03-2022 Moderna COVID-19 Biv al Booster 50 MCG/0.5ML Intramuscular Suspension Nirav Bello Work Phone: [facility] 03-10-2022 Fluad Quadrivalent 0 .5 ML Intramuscular Prefilled Syringe Nirav Bello Work Phone: [facility] 250 DO Work Phone: 12-19-2021 Moderna COVID-19 Vac cine 100 MCG/0.5ML Intramuscular Suspension Nirav Bello Work Phone: [facility] 03-20-2021 Moderna COVID-19 Vac cine 100 MCG/0.5ML Intramuscular Suspension Nirav eBllo Work Phone: [facility] 03-19-2021 Moderna SARS-CoV-2 Booster Vaccination Nirav Bello DO Work Phone: [facility] 03-12-2021 influenza, high dose seasonal, preservative-free Nirav Bello Work Phone: [facility] 02-26-2021 Fluzone High-Dose Quadrivalent 0.7 ML Intramuscular Suspension Prefilled Syringe Nirav Bello Work Phone: [facility] 250 DO Work Phone: 07-12-2020 COVID-19 mRNA-1273 (Moderna) Nirav Bello [facility] 06-15-2020 COVID-19 mRNA-1273 (Moderna) Nirav Bello [facility] 03-15-2020 Fluad Quadrivalent 0 .5 ML Intramuscular Prefilled Syringe Nirav Yarbroughman Work Phone: [facility] 02-24-2020 influenza, high dose seasonal, preservative-free Nirav Bello [facility] Work Phone: 03-11-2019 zoster vaccine recombinant Nirav Bello Work Phone: [facility] DO Work Phone: 03-01-2019 influenza, high dose seasonal, preservative-free Nirav Bello Work Phone: [facility] [place] [facility] Work Phone: 02-21-2019 influenza, high dose seasonal, preservative-free [facility] [place] [facility] Work Phone: 12-22-2018 zoster vaccine recombinant [facility]ello Work [facility]: [facility] DO Work Phone: 02-25-2018 influenza, high dose seasonal, preservative-free Nirav Bello [facility] Work Phone: 03-16-2017 influenza, high dose seasonal, preservative-free Nirav Bello Work Phone: [facility] DO Work Phone: 05-24-2016 pneumococcal conjuga te vaccine, 13 valent Nirav Alicia YarbroughAce Work Phone: [place] 03-30-2016 influenza, high dose seasonal, preservative-free Nirav Yarbroughman DO Work Phone: [facility] 05-02-2015 seasonal influenza, intradermal, preservative free Nirav Bello DO Work Phone: [facility] 03-22-2015 influenza, high dose seasonal, preservative-free Nirav Bello Work Phone: [facility] 250 DO Work Phone: 12-14-2013 pneumococcal conjuga te vaccine, 13 valent Nirav Bello DO Work Phone: [facility] 10-10-2012 zoster vaccine, live Nirav Bello DO Work Phone: [facility] 05-24-2012 pneumococcal polysaccharide vaccine, 23 valent Nirav Bello Work Phone: [place] 05-31-2009 novel influenza-H1N1 -09, preservative-free, injectable Nirav Vargas Ace Work Phone: [facility] 250 DO Work Phone: 07-23-2003 pneumococcal polysaccharide vaccine, 23 valent Nirav Bello DO Work Phone: [facility] Payers Date Payer Category Payer Self-pay [id number] 2023 Medicare (Managed Care) [employer] [id number] 2022 Medicaid [employer] MEDICARE A DVANTAGE [id number] 2022 Medicare [id number] 1959 Private Health Insurance [facility] [id number] 1938 Unknown [id number] 2.16.840.1.429257.3.579.2. 356 1938 Unknown [id number] 2.16.840.1.056107.3.579.2. 593 1938 Unknown [id number] 2.16.840.1.334626.3.579.2. 593 1938 Unknown [id number] 2.16.840.1.865621.3.579.2. 593 1938 Unknown [id number] 2.16.840.1.624568.3.579.2. 593 1938 Unknown [id number] 2.16.840.1.614590.3.579.2. 593 1938 Unknown [id number] 2.16.840.1.924076.3.579.2. 1246 1938 Unknown [id number] 2.16.840.1.008844.3.579.2. 1246 1938 Unknown [id number] 2.16.840.1.959459.3.579.2. 1246 1938 Unknown [id number] 2.16.840.1.726420.3.579.2. 1246 1938 Unknown [id number] 2.16.840.1.419246.3.579.2. 1246 1938 Unknown [id number] 2.16.840.1.977397.3.579.2. 1246 1938 Unknown [id number] 2.16.840.1.162497.3.579.2. 727 1938 Unknown [id number] 2.16.840.1.631580.3.579.2. 1244 1938 Unknown [id number] 2.16.840.1.566021.3.579.2. 1244 1938 Unknown [id number] 2.16.840.1.358111.3.579.2. 124 1938 Unknown [id number] 2.16.840.1.459117.3.579.2. 124 1938 Unknown [id number] 2.16.840.1.828692.3.579.2. 1244 1938 Unknown [id number] 2.16.840.1.136316.3.579.2. 1244 1938 Unknown [id number] 2.16.840.1.862640.3.579.2. 125 1938 Unknown [id number] 2.16.840.1.366419.3.579.2. 125 1938 Unknown [id number] 2.16.840.1.385765.3.579.2. 1259 1938 Unknown [id number] 2.16.840.1.230938.3.579.2. 125 1938 Unknown [id number] 2.16.840.1.070047.3.579.2. 1259 1938 Unknown [id number] 2.16.840.1.625954.3.579.2. 125 1938 Unknown [id number] 2.16.840.1.814234.3.579.2. 1259 1938 Unknown [id number] 2.16.840.1.696020.3.579.2. 125 1938 Unknown [id number] 2.16.840.1.802340.3.579.2. 125 1938 Unknown [id number] 2.16.840.1.598899.3.579.2. 125 1938 Unknown [id number] 2.840.1.630694.3.579.2. 125 1938 Unknown [id number] 2.840.1.687782.3.579.2. 1258 1938 Unknown [id number] 2.840.1.186681.3.579.2. 1258 1938 Unknown [id number] 2.0.1.410799.3.579.2. 1258 1938 Unknown [id number] 2.840.1.131877.3.579.2. 1258 1938 Unknown [id number] .0.1.539466.3.579.2. 1259 Medicare Medicare [id number] Private Health Insurance Self Pay [facility] [id number] Unknown [employer] Unknown [id number] 2.840.1.381720.3.579.2. 531 Unknown [id number] 2.840.1.219044.3.579.2. 531 Unknown [id number] 2.840.1.716549.3.579.2. 531 Unknown [id number] 2.840.1.548686.3.579.2. 531 Social History Date Type Detail Facility Tobacco smoking stat [facility] Unknown if ever smoked [facility] Start: 1940 [facility]igned At [facility] Start: 07-13-2023 End: 11-13-2024 Never a smoker Never a smoker -[facility] 250 DO Work Phone: Comment on above: 2-3 drinks a month; Start: 12-05-2021 End: 11-15-2023 Tobacco smoking status NHIS Ex-smoker (finding) [facility] Start: 07-13-2023 End: 11-13-2024 Sex Assigned At [facility] [employer] Other Start: 06-12-1956 End: 05-24-1989 History of tobacco use Current smoker [facility] Work Phone: Start: 06-12-1956 End: 05-24-1989 History of tobacco use Cigarette Smoker [facility] Work Phone: Start: 07-13-2023 End: 11-15-2023 Tobacco use and exposure Smokeless tobacco non-user [place] Work Phone: Start: 07-13-2023 End: 01-09-2025 Alcohol intake Lifetime non-drinker (finding) [place] Work Phone: Start: 1940 Sex Assigned At Not on file [facility] Work Phone: Start: 07-03-2023 End: 10-02-2024 Exposure to SARS-CoV-2 (event) Not sure [place] History of tobacco use Pipe Smoker [facility] History of tobacco use Passive smoker [facility] Start: 01-11-2024 End: 01-17-2025 Alcoholic beverage intake Current drinker of alcohol [...] He [facility] Start: 08-09-2024 Sex Male (finding) [facility] Start: 04-17-2022 Sex Male [place] Goals Date Patient Goal Desired Activity /State Clinical Notes 07-14-2022 to 01-17-2025 Cecilia Garcia MD - 01/17/2025 1:30 PM EDDAPHNEY Carrillo - 01/09/2025 8:00 AM EDTPatient InstructionsDAPHNEY Charles - 12/26/2024 4:00 PM EDTPatient Instructions Note Date & Type Note Facility 01-17-2025 History of Present illness Narrative Images from the original note were not included. Mohs Surgery Location: Nasal tip Date of biopsy: 10/26/2024 Diagnosis: Squamous Cell Carcinoma, in situ Established patient of Laura Hensley MD All pertinent medical history, medications, and allergies were reviewed. General Exam: alert, oriented to person, place, and time, normal affect, well appearing Unaccompanied A focused exam completed based on patient reported problems, see below: Skin Exam 1. 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 Garcia for interpretation of deep and peripheral margins. [...] tissue sections, stained, and evaluated by Dr. Nance for interpretation of deep and peripheral margins. [...] visit: as scheduled documented in this encounter [facility] 01-09-2025 History of Present illness Narrative Subjective: Epifanio Alvarez is a 84 y.o. male with hypertension. Patient presents to the office ambulatory with steady gait, last evaluated in clinic by myself 2 weeks ago. At that time, he inadvertently was not taking clonidine 0.1 mg daily as previously instructed. He has now been taking the medication, continues to follow blood pressure routinely at home where systolic blood pressure consistently is below 140s. He has an arm cuff, takes blood pressure after morning medications. Home machine has been calibrated by PCP. He denies any side effects of orthostatic hypotension, has mild dry mouth but is tolerable . He had his morning medications approximately 1 hour ago. He takes dose of clonidine along with p.m. dose of lisinopril at bedtime. Remaining medications of Norvasc, lisinopril and Toprol are taken in the morning. Otherwise, patient denies any change in overall cardiovascular status since last evaluation in clinic. Current Outpatient Medications Medication Instructions amLODIPine (NORVASC) 5 mg, oral, Daily ascorbic acid, vitamin C, 500 mg capsule 1 capsule, Daily atorvastatin (LIPITOR) 10 mg, oral, Daily cholecalciferol (VITAMIN D-3) 25 mcg, Daily cloNIDine (CATAPRES) 0.1 mg, oral, Daily cyanocobalamin (Vitamin B-12) 1,000 mcg tablet 1 tablet, Daily pgxryh-dwrlujzu-foenmvx (Creon) 24,000-76,000 -120,000 unit capsule 1 capsule, 3 times daily (morning, midday, late afternoon) lisinopril 20 mg, oral, 2 times daily magnesium oxide (MAG-OX) 400 mg, oral, 2 times daily metFORMIN (Glucophage) 500 mg tablet 1 tablet, Daily metoprolol succinate XL (TOPROL-XL) 50 mg, oral, 2 times daily, Do not crush or chew. mirtazapine (Remeron) 15 mg tablet 1 tablet, Nightly rivaroxaban (XARELTO) 20 mg, oral, Daily Hypertension ROS: taking medications as instructed, no medication side effects noted, no TIA's, no chest pain on exertion, no dyspnea on exertion, and no swelling of ankles. New concerns: none. Objective: BP 140/72 (BP Location: Left arm, Patient Position: Sitting) Pulse 72 Ht 1.803 m (5' 11 ) Wt 72.9 kg (160 lb 12.8 oz) BMI 22.43 kg/m Appearance alert, well appearing, and in no distress. General exam BP noted to be well controlled today in office, BP noted to be borderline elevated today in office though normal at other visits, S1, S2 normal, no gallop, no murmur, chest clear, no JVD, no HSM, no edema. Lab review: no lab studies available for review at time of visit. Assessment: Hypertension improved and no significant medication side effects noted. Plan: Current treatment plan is effective, no change in therapy. If using prn clonidine 3 times a week please update Dr. Khoury 6 month follow up Seng Angeles MSN, SECURITY INCIDENT HANDLER-CAREER DEVELOPMENT DIRECTOR, PMHNP-[facility] [place], [place] Please excuse any errors in grammar or translation related to this dictation. Voice recognition software was utilized to prepare this document. documented in this encounter [place] Work Phone: 01-09-2025 Instructions DAPHNEY Charles - 01/09/2025 8:00 AM EDT Please bring all medicines, vitamins, and herbal supplements with you when you come to the office. Prescriptions will not be filled unless you are compliant with your follow up appointments or have a follow up appointment scheduled as per instruction of your physician. Refills should be requested at the time of your visit. PLAN: Through informed decision making process incorporating patients unique circumstances, the following treatment plan will be initiated: 1. Prescription drug management of cardiovascular medication for efficacy, adherence to treatment, side effect assessment and polypharmacy. Current treatment clinically warranted and to continue without modifications. 2. Return for follow-up; in the interim, contact the office if new symptoms arise. Dr. Khoury in 6 months documented in this encounter [facility] Work Phone: 12-26-2024 History of Present illness Narrative Subjective: Epifanio Alvarez is a 84 y.o. male with hypertension. Presents to the office today ambulatory with steady gait. Last evaluated in clinic Dr. Khoury September 2024. At that time he was to begin clonidine 0.1 mg daily with an additional dose as needed for systolic blood pressure greater than 170. He reports that he was confused and did not start the medication, has simply been using it as needed probably about 3 times a week. October 2024 potassium 3.4, creatinine 1.1. Hemoglobin A1c 6.5. Discussed recommendations and he is in agreement to begin clonidine 0.1 mg daily. When he uses it 3 times weekly he denies any type of orthostatic hypotension, maybe has a very mild dry mouth. Current Outpatient Medications Medication Instructions amLODIPine (NORVASC) 5 mg, oral, Daily ascorbic acid, vitamin C, 500 mg capsule 1 capsule, Daily atorvastatin (LIPITOR) 10 mg, oral, Daily cholecalciferol (VITAMIN D-3) 25 mcg, Daily cloNIDine (CATAPRES) 0.1 mg, oral, Daily cyanocobalamin (Vitamin B-12) 1,000 mcg tablet 1 tablet, Daily nfegol-ftsbdpmn-cvliaqh (Creon) 24,000-76,000 -120,000 unit capsule 1 capsule, 3 times daily (morning, midday, late afternoon) lisinopril 20 mg, oral, 2 times daily magnesium oxide (MAG-OX) 400 mg, oral, 2 times daily metFORMIN (Glucophage) 500 mg tablet 1 tablet, Daily metoprolol succinate XL (TOPROL-XL) 50 mg, oral, 2 times daily, Do not crush or chew. mirtazapine (Remeron) 15 mg tablet 1 tablet, Nightly rivaroxaban (XARELTO) 20 mg, oral, Daily vit A/vit C/vit E/zinc/copper (ICAPS AREDS ORAL) 1 tablet, See admin instructions Hypertension ROS: not taking medications regularly as instructed, no medication side effects noted, no TIA's, no chest pain on exertion, no dyspnea on exertion, and no swelling of ankles. New concerns: HTN. Objective: BP (!) 164/98 (BP Location: Right arm, Patient Position: Sitting) Pulse 60 Ht 1.803 m (5' 11 ) Wt 74.2 kg (163 lb 9.6 oz) BMI 22.82 kg/m Appearance alert, well appearing, and in no distress. General exam BP noted to be moderately elevated today in office, S1, S2 normal, no gallop, no murmur, chest clear, no JVD, no HSM, no edema. Lab review: labs are reviewed, up to date and normal. Assessment: Hypertension poorly controlled. Plan: Through informed decision making process incorporating patients unique circumstances, the following treatment plan will be initiated: 1. Prescription drug management of cardiovascular medication for efficacy, adherence to treatment, side effect assessment and polypharmacy. Current treatment clinically warranted and to continue with following modifications: - Clonidine 0.1mg daily & continue to use extra tablet as needed 2. Return for follow-up; in the interim, contact the office if new symptoms arise. HARMONIC ANALYST 2 weeks Seng Angeles MSN, SECURITY INCIDENT HANDLER-CAREER DEVELOPMENT DIRECTOR, PMHNP-[facility] [place], [place] Please excuse any errors in grammar or translation related to this dictation. Voice recognition software was utilized to prepare this document. documented in this encounter [place] Work Phone: 12-26-2024 Instructions DAPHNEY Charles - 12/26/2024 4:00 PM EDT Please bring all medicines, vitamins, and herbal supplements with you when you come to the office. Prescriptions will not be filled unless you are compliant with your follow up appointments or have a follow up appointment scheduled as per instruction of your physician. Refills should be requested at the time of your visit. PLAN: Through informed decision making process incorporating patients unique circumstances, the following treatment plan will be initiated: 1. Prescription drug management of cardiovascular medication for efficacy, adherence to treatment, side effect assessment and polypharmacy. Current treatment clinically warranted and to continue with following modifications: - Clonidine 0.1mg daily & continue to use extra tablet as needed 2. Return for follow-up; in the interim, contact the office if new symptoms arise. HARMONIC ANALYST 2 weeks documented in this encounter [place] Work Phone: 12-20-2024 Nuclear medicine Diagnostic study note [facility] [place] [place] [address] Nuclear Medicine Report Signed Patient: Epifanio Alvarez MR#: [id number] : 1940 Acct:[id number] Age/Sex: 84 / M ADM Date: 5 Loc: Room: Type: [facility] Attending Dr: Miller Donald MD Copies to: MD Jordan Mario II, MD~ Ordering Provider: Miller Donald MD Date of Service: 12/20/24 PET/PET psma subq tx sb-mt: prostate cancer; rising PSA after treatment PET psma subq tx sb-mt 12/20/2024 11:05 AM SIGNS AND SYMPTOMS: prostate cancer; rising PSA after treatment PROTOCOL: PET images were obtained after intravenous radiotracer administration. Low-dose CT was obtained from skull base to mid thigh. After attenuation correction of PET images, fused PET CT images were generated and reconstructed in axial, sagittal, and coronal planes. COMPARISON: 09/13/2023 RADIOPHARMACEUTICAL: 7.78 mCi of intravenous fluorine 18 PSMA FINDINGS: There is a sclerotic bony lesion in the posterior aspect of the left eighth rib with increased radiotracer accumulation. This is unchanged. There are new focal areas of increased radiotracer accumulation within the lateral aspect of the right and left fourth ribs. There is a new focus of increased radiotracer accumulation within the anterior aspect of the left fourth rib. There is a new focus of increased radiotracer accumulation within the T10 vertebral body to the left of midline. There are 2 new foci of abnormal radiotracer accumulation in the right iliac spine. There is an intense area of radiotracer accumulation to the right of midline within the L5 vertebral body which is more prominent when compared to the prior exam. There is physiologic tracer tracer accumulation within the salivary glands, liver, spleen, kidneys, bladder, and bowel. PET/PET psma subq tx sb-mt IMPRESSION: New areas of abnormal radiotracer accumulation are noted in the ribs, right iliac spine, and T10 vertebral body suggesting worsening bony metastatic disease. There is a sclerotic bony lesion in the posterior aspect of the left eighth rib with increased radiotracer accumulation. This is unchanged. There is an intense area of radiotracer accumulation to the right of midline within the L5 vertebral body which is more prominent when compared to the prior exam. Impression dictated by: Jordan Story M.D. 12/20/2024 2:08 PM Dictation Location: [place] [address] Transcribed By: WOODY 12/20/24 1408 Dictated By: Jordan Sotry II, MD 12/20/24 1401 Signed By: 12/20/24 140 [facility] Work Phone: 12-07-2024 History of Present illness Narrative Follow up Diagnosis: Actinic Keratosis Location: left dorsal hand Last visit: 10/26/2024 Symptoms: none Status: healed well Procedure performed: Shave biopsy Date of procedure: 10/26/2024 Current treatment: Here today for re-evaluation Lesions: Location: left lower leg Duration: 4 weeks Quality: denies pain, denies itch, denies bleeding Modifying factors: denies Associated symptoms: red, rough Treatments: Efudex BID x 14 days; pt reports he just finished it about 4 days ago Other Problem: might be a suture left there from s/r on 09/13/2024 Location: left shoulder- posterior All pertinent medical history, medications, and allergies were reviewed. General Exam: alert, oriented to person, place, and time, normal affect, well appearing Unaccompanied A focused exam completed based on patient reported problems, see below: Skin Exam 1. ACTINIC KERATOSIS (2) Left Ankle - Anterior, Left Hand - Posterior Clear today on hand, ankle with appropriate reaction to efudex. Plan to follow up for recurrence on hand, discussed it is too early to tell if ankle has resolved, would give lesion 3-4 weeks to heal and patient to notify office if lesion has not fully resolved. Related Medications fluorouracil (Efudex) 5 % cream Apply to directed areas on the face, and backs of hands twice a day x 14 days. Dispense 30 day supply but only use for 14 days 2. SPITTING SUTURE, INITIAL ENCOUNTER Left Shoulder - Posterior Counseling and reassurance given. No treatment necessary. Next Visit: as scheduled documented in this encounter [facility] 12-03-2024 History of Present illness Narrative Images from the original note were not included. [address] , [address] [facility], [address] P: [phone] F: [phone] HPI Historian of HPI: patient Epifanio Alvarez is a 84 y.o. male who presents today to the Urgent Care with the following complaints and denials which have been present for 2 day(s) C/O Denies Symptom Comments [x] [] Dysuria [] [x] hematuria [x] [] Urinary frequency [] [x] Urinary incontinence [x] [] Urinary urgency [] [x] Genital itching [] [x] Genital discharge [] [x] Back pain [] [x] Abd pain Additional Comments: pt has not taken any OTC medications. Pt reports hx of previous UTI. IH Testing: An In-House UA has been obtained and is positive for 2+ Leuks and 3+ Blood on urine dip strip. ROS A complete system ROS was performed and negative aside from the pertinent positives noted in the HPI and PE. PHYSICAL EXAM Physical Exam Vitals and nursing note reviewed. Constitutional: Appearance: Normal appearance. HENT: Head: Normocephalic and atraumatic. Right Ear: Tympanic membrane and ear canal normal. Left Ear: Tympanic membrane and ear canal normal. Nose: Nose normal. Mouth/Throat: Mouth: Mucous membranes are moist. Eyes: Pupils: Pupils are equal, round, and reactive to light. Cardiovascular: Rate and Rhythm: Normal rate and regular rhythm. Pulmonary: Effort: Pulmonary effort is normal. Breath sounds: Normal breath sounds. Abdominal: General: Abdomen is flat. Bowel sounds are normal. Palpations: Abdomen is soft. Tenderness: There is no right CVA tenderness or left CVA tenderness. Musculoskeletal: General: Normal range of motion. Cervical back: Neck supple. Skin: General: Skin is warm and dry. Neurological: General: No focal deficit present. Mental Status: He is alert and oriented to person, place, and time. Psychiatric: Mood and Affect: Mood normal. Behavior: Behavior normal. TREATMENT PLAN 1. Dysuria Discussed urinalysis results. See below. - POCT urinalysis dipstick manually resulted - URINARY TRACT INFECTION (HTRX) 2. Acute cystitis with hematuria (Primary) Diagnosis and treatment discussed. Rest and push fluids. Medication instructions and potential s/e discussed. To ER for fever, chills, nausea, vomiting, or severe back/abd pain. Follow-up with PCP if no improvement in 3 days. Discussed urinalysis results. Urine sent for culture. Will call with results when available - cefuroxime (Ceftin) 500 MG tablet; Take 1 tablet (500 mg) by mouth every 12 (twelve) hours for 7 days Dispense: 14 tablet; Refill: 0 documented in this encounter [facility] 11-27-2024 History of Present illness Narrative Subjective Patient ID: Epifanio Alvarez is a 84 y.o. male who presents for Post-op (Post op Exc SCC left cheek) HPI Patient presents postop excision of squamous carcinoma of the left cheek with complex repair. States to be doing well. Review of Systems Patient had discomfort of the left side of his face for 2 days after surgery. Doing well now. The rest of his review of systems is unchanged. Objective ENT Physical Exam The area of surgical intervention is healing very well. Sutures removed without difficulty. Results of pathology revealed no evidence of residual tumor at the margin. Assessment/Plan Diagnoses and all orders for this visit: Squamous cell carcinoma of skin of face Comments: Patient doing quite well after surgical intervention. We will have him return as needed. Sunscreen to prevent discoloration Chronic anticoagulation documented in this encounter [facility] 11-14-2024 Evaluation note Diagnosis Stage 3a chronic kidney disease ([facility]-HCC)- Primary Type 2 diabetes mellitus with other specified complication, without long-term current use of insulin (HCC) Primary hypertension Unspecified essential hypertension PAF (paroxysmal atrial fibrillation) ([facility]) Atrial fibrillation Mixed hyperlipidemia Mixed hyperlipidemia Medicare annual wellness visit, subsequent Advance care planning Other specified counseling [facility] [id number] History of Present illness Narrative* Juan Guzman DO - 11/09/2024 9:30 AM EDT Subjective Patient ID: Epifanio Alvarez is a [...] History of appendectomy Hyperlipidemia Irritable bowel syndrome [facility] current use of 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 01/13/2024 Malignant [...] BEDTIME, Disp: 90 tablet, Rfl: 3 pancrelipase, Hqn-Zxqi-Umjs, (Creon) 65907-91001 units capsule, TAKE 1 CAPSULE IN THE [...] 10/01/2017 CATARACT EXTRACTION Right 10/28/2017 per in [place], [place]. COLONOSCOPY 2010 COLONOSCOPY 11/28/[address] [...] limits, ear canals are patent, tympanic membranes areintact. Nose: External nose unremarkable, nares patent, septum [...] infection, poor wound healing, need for further surgery,nerve injury, serous disability, and This patient has significant risks of surgery as result of his chronic medical conditions. He will need to discontinue his blood thinner prior to surgical intervention. This has increase his risk of this surgery, he fully understands and wishes to proceed. documented in this encounterM[facility] CenterMtxoyfopvk91-23-0184 History of Present illness Narrative* Laura Hensley MD - 10/26/2024 9:45 AM EDT [...] limited to risks of scarring, darker or biodiesel plant superintendent pigmentary changes, recurrence, incomplete removal and infection. [...] results/6 month skin check documented in this encounterM[facility] CenterRutpjbdpmt72-49-0681 History of Present illness Narrative* Missy Khoury MD - 10/02/2024 11:45 AM [...] Mixed hyperlipidemia 7. Paroxysmal atrial fibrillation 8. Izm-ouhblje-okhojuuqr diabetes 9. QQU5UN1-NUYi score of 4. 10. Long-term anticoagulation with rivaroxaban 11. EKG June 2023-[place] formed PVCs in a pattern of ventricular [...] B-12) 1,000 mcg tablet 1 tablet, Daily htydxh-dvbkjmhl-odabrsr (Creon) 24,000-76,000 -120,000 unit capsule 1 capsule, [...] MD, FAC. I, Dr. Missy Khoury MD, FAC, personally performed the services described in the documentation as scribed by April Cheng LPN in my presence, and confirm it is both accurate and complete. [place] Work Phone: 1(267) 938-315305-12-2025 Instructions* Patient Instructions* April Love LPN - 10/02/2024 [...] your visit. BMI normal documented [place] Work Phone: 1(503) 174-475804-23-2025 History of Present illness Narrative* Aamir Nance MD - 09/13/2024 10:45 AM EDT Images from the original note [...] Has skin check scheduled documented in this encounterMoberly [facility] [id number] Evaluation note* Diagnosis PAF (paroxysmal atrial fibrillation) (CMS/HCC)- Primary Atrial fibrillation Stage 3a chronic kidney disease (HCC) ([facility]/HCC) Type 2 diabetes mellitus with other specified complication, without long-term current use of insulin Mixed hyperlipidemia (CMS/HCC) Mixed hyperlipidemia Exocrine pancreatic insufficiency (CMS/HCC) Other specified disease of pancreas Primary hypertension ([facility]/HCC) Unspecified essential hypertension documented in [facility] encounter [facility] CenterLakubitnyy77-12-6924 History of Present illness Narrative* Laura Hensley [...] left upper limb, including shoulder Left Shoulder [place] macule at biopsy site Skin excision Lesion [...] 1.2 x 1.1 cm Previous accession number: [id number] Follow up: 14 days for s/r documented in this encounterMoberly [facility] CenterOksvwsjgac12-58-4438 History of Present illness Narrative* Laura Hensley [...] SCC Check Margins: yes Previous accession number: [id number] Shave excision completed today, see procedure note. Return to clinic prior to next scheduled visit for any signs or symptoms of recurrence, reviewed the signs and symptoms. Patient will be notified of results. Next Visit: as scheduled documented in this encounterMoberly [facility] Medical CenterWjkaszxvkr12-97-7204 History of Present illness Narrative* Laura Hensley [...] Visit: pending biopsy results documented in this encounterMoberly Regional Medical CenterTtmlqmbhed30-34-1681 History of Present illness Narrative* Laura Hensley [...] upper extremity including shoulder Left Upper Arm [place] macule at biopsy site. Skin excision Lesion [...] BCC Check Margins: Yes Previous accession number: [id number] 2. Skin neoplasm (2) Left shoulder Erythematous, crusted papule. Right lower leg Erythematous, crusted papule. Biopsies deferred until suture removal due to insurance restrictions. Follow up: 14 days for s/r documented in this encounterMoberly Regional Medical CenterCdlmrncbdb30-07-7678 History of Present illness Narrative* Nirav Bello, DO - 05/10/2024 9:30 AM EST Images from the original note were not included. Epifanio Alvarez is a 83 y.o. male presents with chief complaint of Hospital Follow-up (Pt presents hospital follow up at [facility] on 05/03 for hypertension. Pt states [...] 10/01/2017 CATARACT EXTRACTION Right 10/28/2017 per in [place], [place]. COLONOSCOPY 2010 COLONOSCOPY 11/28/[address] [...] cloNIDine (CATAPRES) 0.1 mg, As needed Creon [id number] units capsule TAKE 1 CAPSULE IN THE [...] List Items Addressed This Visit HTN (hypertension) ([facility]) Hyperlipidemia, unspecified ([facility]) Stage 3a chronic kidney disease (HCC) ([facility]) Type 2 diabetes mellitus with other specified complication ([facility]) Relevant Orders POCT glycosylated hemoglobin (Hb A1C) docked device PAF (paroxysmal atrial fibrillation) ([facility]) Exocrine pancreatic insufficiency ([facility]) Other Visit Diagnoses Allergic sinusitis - Primary [...] we did have an appointment with the lamp shade joiner at [facility] recently, blood pressure was stable [...] I told him if he continues with Leasing Associate pressure in the next two or three [...] Dictated and not read. documented in this encounterMoberly Regional Medical CenterTyhlarwglm71-65-6329 History of Present illness Narrative* Missy Khoury [...] Mixed hyperlipidemia 7. Paroxysmal atrial fibrillation 8. Kzu-nwtydio-eraqdtvfk diabetes 9. LSD3CL1-VEPy score of 4. 10. Long-term anticoagulation with rivaroxaban 11. 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 Former [...] exam, discussion and plan. documented in [place] encounter[place] Work Phone: 1(366) 362-210012-09-2024 Instructions* Patient Instructions* Britney Salgado LPN - [...] time of your visit. documented in this encounterCent[place] Work Phone: 1(949) 781-320608-22-2024 History of Present illness Narrative* Missy Khoury [...] Mixed hyperlipidemia 7. Paroxysmal atrial fibrillation 8. Hyk-yrylhsh-fmiodfrfw diabetes 9. YZN5DS4-EHYb score of 4. 10. Long-term anticoagulation with rivaroxaban 11. EKG June 2023-[place] formed PVCs in a pattern of ventricular [...] 1,000 mcg tablet 1 tablet, oral, Daily strtoy-lzomekxq-jyklmvb (Creon) 24,000-76,000 -120,000 unit capsule 1 capsule, [...] Date Noted PVC (premature ventricular contraction) 01/13/2024 [facility] current use of 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 01/13/2024 High [...] contraction) Transthoracic Echo Complete Holter Or Event Assistant Family Teacher Nuclear Stress Test CANCELED: Nuclear Stress Test 3. Paroxysmal atrial fibrillation (Multi) Follow Up In Cardiology magnesium oxide (Mag-Ox) 400 mg (241.3 mg magnesium) tablet Transthoracic Echo Complete metoprolol succinate XL (Toprol-XL) 50 mg 24 hr tablet Holter Or Event Assistant Family Teacher CANCELED: Nuclear Stress Test 4. 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 [facility] current use of 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 6. High [...] my direction and personally dictated by me. Ihrosa reviewed the chart and agree that the record accurately reflects my personal performance of the history, physical exam, discussion and plan. [facility] Work Phone: 1(179) 340-728708-22-2024 Instructions* Patient Instructions* Fay Edge CMA - [...] time of your visit. documented in this [facility] Work Phone: 1(473) 707-164202-20-2024 History of Present illness Narrative* Epifanio Davis [...] by mouth once daily., Disp: , Rfl: dvigna-szuknxek-sauzvdt (Creon) 24,000-76,000 -120,000 unit capsule, Take 1 [...] Scribe Attestation By signing my name below, Grace Marisa Rk Olmedo LPN attest that this documentation has been [...] exam, discussion and plan. documented in this [facility] Work Phone: 1(174) 401-282802-20-2024 Instructions* Patient Instructions* Dominick Suazo MA - [...] time of your visit. documented in [facility] Work Phone: 1(141) 874-923606-27-2023 Evaluation note* Encounter Date Diagnosis Assessment Notes Treatment Notes Treatment Clinical Notes Oct, Change in bowel habits (ICD-10 - R19.4) Oct, Diverticulosis (ICD-10 - K57.90) Oct, IBS (irritable bowel syndrome) (ICD-10 - K58.9) Oct, Pancreatic insufficiency (ICD-10 - K86.89) [place] [email or web address] Other 02-21-2023 History of Present illness Narrative* [...] necessary and we suggest follow-up next year [facility] [address] DO Work Phone: Evaluation noteNo assessment information available [facility] Work Phone: Evaluation noteNo InformationNort [email or web address] Other Evaluation note* Diagnosis Benign essential hypertension- Primary Essential hypertension, benign Mixed hyperlipidemia Paroxysmal atrial fibrillation (CMS/HCC) Atrial fibrillation Former smoker Personal history of tobacco use, presenting hazards to health documented in this encounter [place] Work Phone: Evaluation note* Diagnosis Encounter to [...] without long-term current use of insulin (Multi) 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 Former smoker Personal history of tobacco use, presenting hazards to health Body mass index (BMI) of 23.0 to 23.9 in adult documented in this encounter [place] Work Phone: Evaluation note* Diagnosis Ventricular arrhythmia- Primary Unspecified cardiac dysrhythmia PVC (premature ventricular contraction) Other premature beats Paroxysmal atrial fibrillation (Multi) Atrial fibrillation 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 High risk medication use Mixed hyperlipidemia Uncontrolled hypertension Former smoker Personal history of tobacco use, presenting hazards to health Type 2 diabetes mellitus without complication, without long-term current use of insulin (Multi) Stage 3a chronic kidney disease (Multi) Prostate cancer (Multi) Malignant neoplasm of prostate Abnormal electrocardiogram (ECG) (EKG) documented in this encounter [facility] Work Phone: Evaluation note* Diagnosis PVC (premature ventricular contraction) Other premature beats 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 Ventricular arrhythmia Unspecified cardiac dysrhythmia Abnormal electrocardiogram (ECG) (EKG) documented in this encounter [facility] Work Phone: Evaluation note* Diagnosis PVC (premature ventricular contraction) Other premature beats Paroxysmal atrial fibrillation (Multi) Atrial fibrillation documented in this encounter [facility] Work Phone: Evaluation note* Diagnosis Primary hypertension (CMS/HCC)- Primary Unspecified essential hypertension PAF (paroxysmal atrial fibrillation) (CMS/HCC) Atrial fibrillation Stage 3a chronic kidney disease (HCC) (CMS/HCC) Type 2 diabetes mellitus with other specified complication, without long-term current use of insulin (CMS/HCC) documented in this encounter [facility] HealthcareEvaluation note* Diagnosis Allergic sinusitis- [...] hip- Primary documented in this encounter [facility]* Diagnosis Squamous cell carcinoma of skin of left upper limb, including shoulder- Primary documented in this [facility]* Diagnosis Encounter for removal of sutures documented in this encounter [facility] HealthcareEvaluation note* Diagnosis Paroxysmal atrial fibrillation (Multi) [...] hazards to health documented in this encounter [place] Work Phone: Evaluation note* Diagnosis Seborrheic keratosis- Primary Lentigines Actinic keratosis Neoplasm of unspecified behavior of bone, soft tissue, and skin History of malignant neoplasm of skin Personal history of other malignant neoplasm of skin documented in this encounter [facility] HealthcareEvaluation note* Diagnosis Chronic anticoagulation- Primary Encounter for long-term (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 of anticoagulants Squamous cell carcinoma of skin of face Other malignant neoplasm of skin of other and unspecified parts of face documented in this encounter [facility] HealthcareEvaluation note* Diagnosis Squamous cell carcinoma of skin of face- Primary Other malignant neoplasm of skin of other and unspecified parts of face Chronic anticoagulation Encounter for long-term (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 of anticoagulants documented in this encounter [facility] HealthcareEvaluation note* Diagnosis Actinic keratosis- Primary Spitting suture, initial encounter documented in this encounter [facility]* Diagnosis Acute cystitis with hematuria- Primary Dysuria documented in [facility]* Diagnosis Primary hypertension Unspecified essential hypertension documented in this encounter [place] Work Phone: Evaluation note* Diagnosis BMI 22.0-22.9, adult- Primary Primary hypertension Unspecified essential hypertension 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 10-28-17 Surgical History Mohs repair / left upper lip Hospitalization History see above [facility] Other History of Present illness NarrativeReturns in [...] we suggest continued therapy as before without change.-[facility] [address] DO Work Phone: Hospital Discharge instructions [...] the incision. PLEASE NOTIFY OUR OFFICE at [phone] if you: -Develop a fever of 101 [...] rate. FOLLOW UP -Call the office at [phone] for a follow up appointment 1 week. * AFTER HOURS PHONE NUMBER [phone] *[facility] Work Phone: Hospital Discharge instructions Additional Instructions No exertional activity Antibiotic ointment to the wound 3 times per day Tylenol or Motrin for pain Call the office for any questions or concerns Follow-[facility] the [facility] Work Phone: Reason for referral (narrative)No reason for referral information availableK[facility] Work Phone: Advance Directives No Advanced Directives [...] right lower leg August 09, 2024 9:43am Chief Complaint Admit Date Skin Cancer Left Cheek November 14, 2024 1 :26pm Skin Cancer Left Cheek November 20, 2024 1 :03pm Chief Complaint Admit Date Skin Cancer Left Cheek November 14, 2024 1 :26pm Skin Cancer Left Cheek November 20, 2024 1 :03pm C61 R97.21 December 20, 2024 9:56 am Assessments No Assessments Information Available Chief Complaint [...] Coronary artery disease Unknown Unknown mother Unknown Relationship Condition Age at Onset Recorded Date/T deidre father Coronary artery disease Unknown Unknown Malignant neoplasm of colon Unknown mother Unknown Summary Purpose Reason for Referral Specialty Diagnoses / Procedures Referred By Katie t Referred To Contact Radiology Diagnoses PVC (premature ventricular contraction) 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 Ventricular arrhythmia Abnormal electrocardiogram (ECG) (EKG) Procedures Nuclear Stress Test Nuclear Stress Test CHG MYOCARDIAL SPECT MULTIPLE STUDIES Missy Khoury MD [address] [place] [address] Referral ID Status Reason Start Date Expiration Date Visits Requested Visits Authorized [id number] Authorized Perform Procedure 01/13/2024 01/12/2025 5 5 Specialty Diagnoses / Procedures Referred By Katie bhat Referred To Contact Cardiology Diagnoses PVC (premature ventricular contraction) Paroxysmal atrial fibrillation (Multi) Procedures Holter Or Event Assistant Family Teacher Missy Khoury MD [address] [address] Referral ID Status Reason Start Date Expiration Date V isits Requested Visits Authorized [id number] Pending Review 01/13/2024 01/12/2025 1 1 Specialty Diagnoses / Procedures Referred By Contac t Referred To Contact Cardiology Diagnoses PVC (premature ventricular contraction) Paroxysmal atrial fibrillation (Multi) Procedures Transthoracic Echo Complete ND ECHO TTHRC R-T 2D W/WOM-MODE COMPL SPEC&COLR D Missy Khoury MD [address] [place] [address] Referral ID Status Reason Start Date Expiration Date Visits Requested Visits Authorized [id number] Authorized Perform Procedure 01/13/2024 01/12/2025 1 1 Specialty Diagnoses / Procedures Referred By Contac t Referred To Contact Cardiology Diagnoses Paroxysmal atrial fibrillation (Multi) Procedures Follow Up In Cardiology Missy Khoury MD [address] [address] Missy Khoury MD [address] [address] Referral ID Status Reason Start Date Expiration Date V isits Requested Visits Authorized [id number] Authorized 01/13/2024 01/12/2025 1 1 Specialty Diagnoses / Procedures Referred By Contac t Referred To Contact Diagnoses Paroxysmal atrial fibrillation (CMS/HCC) Procedures ECG 12 Lead Epifanio Davis MD 7[address] [facility] 2, [place] [address] [place] [address] Referral ID Status Reason Start Date Expiration Date V isits Requested Visits Authorized [id number] Authorized 07/13/2023 07/12/2024 1 1 Specialty Diagnoses / Procedures Referred By Contac t Referred To Contact Cardiology Diagnoses Paroxysmal atrial fibrillation (CMS/HCC) Procedures Follow Up In Cardiology Epifanio Davis MD 7[address] [facility] 2, [address] [place] [address] Epifanio Davis MD [address] [facility] [address], [address] [place] [address] Referral ID Status Reason Start Date Expiration Date V isits Requested Visits Authorized [id number] Authorized 07/13/2023 07/12/2024 1 1 Additional Source Comments Care Teams (unrecognized sec tion and content) Team Status: Inactive Member Role Status Dates Nirav Bello , Primary Care Provider Active Shonna Sim , DO Family Provider Active Juan Guzman DO Attending Provider Active Team Status: Active Member Role Status Dates Shonna Sim , Family Provider Active Nirav Bello , Primary Care Provider Active Team Status: Inactive Member Role Status Dates Nirav Bello , Primary Care Provider Active Shonna Sim , Family Provider Active Jj Garcia MD Attending Provider Active 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 Relationship Specialty Start Date End Date Nirav Bello DO [address] [facility] [address] [place] [address] PCP - General 05/24/99 Team Status: Inactive Member Role Status Dates Nirav Bello DO Primary Care Provider Active Start: September 13, 2023 End: September 13, 2023 NON STAFF Attending Provider Active Start: [facility] 2023 End: September 13, 2023 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 Relationship Specialty Start Date End Date Nirav Bello DO [address] [place] [address] PCP - [employer] 05/24/20 Nirav Bello DO [address] [place] [address] PCP - General Internal Medicine 11/10/22 Marianne Davis MD 703 [facility] [address] [place] [address] Referring Physician Cardiology 05/12/23 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 Relationship Specialty Start Date End Date Nirav Bello DO [address] [place] [address] PCP - [employer] 05/24/20 Nirav Bello DO [address] [place] [address] PCP - General Internal Medicine 11/10/22 Marianne Davis MD [address] [address] Referring Physician Cardiology 05/12/23 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 Relationship Specialty Start Date End Date Nirav Bello DO [address] [place] [address] PCP - General 05/24/99 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 Relationship Specialty Start Date End Date Nirav Bello DO [address] [place] [address] PCP - General 05/24/99 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 Relationship Specialty Start Date End Date Nirav Bello DO [address] [place] [address] PCP - General 05/24/99 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 Relationship Specialty Start Date End Date Nirav Bello DO [address] [place] [address] PCP - General 05/24/99 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 Relationship Specialty Start Date End Date Nirav Bello DO [address] [place] [address] PCP - General 05/24/99 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 Relationship Specialty Start Date End Date Nirav Bello DO [address] [place] [address] PCP - General 05/24/99 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 Relationship Specialty Start Date End Date Nirav Bello DO [address] [place] [address] PCP - General 05/24/99 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 Relationship Specialty Start Date End Date Nirav Bello DO [address] [place] [address] PCP - [employer] 05/24/20 Nirav Bello DO [address] [place] [address] PCP - General Internal Medicine 11/10/22 Marianne Davis MD [address] [place] [address] Referring Physician Cardiology 05/12/23 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 Relationship Specialty Start Date End Date Nirav Bello DO [address] [place] [address] PCP - [employer] 05/24/20 Nirav Bello DO [address] [place] [address] PCP - General Internal Medicine 11/10/22 Marianne Davis MD [address] [address] Referring Physician Cardiology 05/12/23 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 Relationship Specialty Start Date End Date Nirav Bello DO [address] [place] [address] PCP - [employer] 05/24/20 Nirav Bello DO [address] [place] [address] PCP - General Internal Medicine 11/10/22 Marianne Davis MD [address] [address] Referring Physician Cardiology 05/12/23 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 Relationship Specialty Start Date End Date Nirav Bello DO [address] [place] [address] PCP - [employer] 05/24/20 Nirav Bello DO [address] [place] [address] PCP - General Internal Medicine 11/10/22 Marianne Davis MD [address] [address] Referring Physician Cardiology 05/12/23 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 Relationship Specialty Start Date End Date Nirav Bello DO [address] [place] [address] PCP - [employer] 05/24/20 Nirav Bello DO [address] [place] [address] PCP - General Internal Medicine 11/10/22 Marianne Davis MD [address] [place] [address] [address] [place] [address] Referring Physician Cardiology 05/12/23 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 Relationship Specialty Start Date End Date Nirav Bello DO [address] [place] [address] PCP - [employer] 05/24/20 Nirav Bello DO [address] [place] [address] PCP - General Internal Medicine 11/10/22 Marianne Davis MD [address] [place] [address] [address] Referring Physician Cardiology 05/12/23 Team Status: Inactive Member Role Status Dates Nirav Bello DO Primary Care Provider Active Start: August 09, 2024 End: August 09, 2024 Colin Thompson MD Attending Provider Active Start: August 09, 2024 End: August 09, 2024 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 Relationship Specialty Start Date End Date Nirav Bello DO [address] [place] [address] PCP - [employer] 05/24/20 Nirav Bello DO [address] [place] [address] PCP - General Internal Medicine 11/10/22 Marianne Davis MD [address] [place] [address] [address] Referring Physician Cardiology 05/12/23 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 Relationship Specialty Start Date End Date Nirav Bello DO [address] [place] [address] PCP - [employer] 05/24/20 Nirav Bello DO [address] [place] [address] PCP - General Internal Medicine 11/10/22 Marianne Davis MD [address] [address] Referring Physician Cardiology 05/12/23 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 Relationship Specialty Start Date End Date Nirav Bello DO [address] [place] [address] PCP - [employer] 05/24/20 Nirav Bello DO [address] [place] [address] PCP - General Internal Medicine 11/10/22 Marianne Davis MD [address] [address] Referring Physician Cardiology 05/12/23 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 Relationship Specialty Start Date End Date Nirav Bello DO [address] [place] [address] PCP - General 05/24/99 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 Relationship Specialty Start Date End Date Nirav Bello DO [address] [place] [address] PCP - [employer] 05/24/20 Nirav Bello DO [address] [place] [address] PCP - General Internal Medicine 11/10/22 Marianne Davis MD [address] [place] [address] Referring Physician Cardiology 05/12/23 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 Relationship Specialty Start Date End Date Nirav Bello DO [address] [place] [address] PCP - [employer] 05/24/20 Nirav Bello DO [address] [place] [address] PCP - General Internal Medicine 11/10/22 Marianne Davis MD [address] [place] [address] Referring Physician Cardiology 05/12/23 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 Relationship Specialty Start Date End Date Nirav Bello DO [address] [place] [address] PCP - [employer] 05/24/20 Nirav Bello DO [address] [place] [address] PCP - General Internal Medicine 11/10/22 Marianne Davis MD [address] [place] [address] Referring Physician Cardiology 05/12/23 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 Relationship Specialty Start Date End Date Nirav Bello DO [address] [place] [address] PCP - [employer] 05/24/20 Nirav Bello DO [address] [place] [address] PCP - General Internal Medicine 11/10/22 Marianne Davis MD 703 [facility] [address] [place] [address] Referring Physician Cardiology 05/12/23 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 Relationship Specialty Start Date End Date Nirav Bello DO [address] [place] [address] PCP - [employer] 05/24/20 Nirav Bello DO [address] [place] [address] PCP - General Internal Medicine 11/10/22 Marianne Davis MD 703 [facility] [address] [place] [address] Referring Physician Cardiology 05/12/23 Team Status: Active Member Role Status Dates Nirav Bello DO Primary Care Provider Active Team Status: Inactive Member Role Status Dates Nirav Bello DO Primary Care Provider Active Start: November 14, 2024 End: November 14, 2024 Juan Guzman DO Attending Provider Active S tart: November 14, 2024 End: November 14, 2024 Team Status: Inactive Member Role Status Dates Nirav Bello DO Primary Care Provider Active Start: November 20, 2024 End: November 20, 2024 Juan Guzman DO Attending Provider Active S tart: November 20, 2024 End: November 20, 2024 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 Relationship Specialty Start Date End Date Nirav Bello DO [address] [place] [address] PCP - [employer] 05/24/20 Nirav Bello DO [address] [place] [address] PCP - General Internal Medicine 11/10/22 Marianne Davis MD [address] [address] Referring Physician Cardiology 05/12/23 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 Relationship Specialty Start Date End Date Nirav Bello DO [address] [place] [address] PCP - [employer] 05/24/20 Nirav Bello DO [address] [place] [address] PCP - General Internal Medicine 11/10/22 Marianne Davis MD [address] [address] Referring Physician Cardiology 05/12/23 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 Relationship Specialty Start Date End Date Nirav Bello DO [address] [place] [address] PCP - [employer] 05/24/20 Nirav Bello DO [address] [place] [address] PCP - General Internal Medicine 11/10/22 Marianne Davis MD 703 [facility] [address] [place] [address] Referring Physician Cardiology 05/12/23 Team Status: Inactive Member Role Status Dates Nirav Bello DO Primary Care Provider Active Start: December 20, 2024 End: December 20, 2024 Miller Donald MD Attending Provider Active Start: December 20, 2024 End: December 20, 2024 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 Relationship Specialty Start Date End Date Blayne Givens MD [address] [place] [address] PCP - General Internal Medicine 12/26/24 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 Relationship Specialty Start Date End Date Blayne Givens MD [address] [place] [address] PCP - General Internal Medicine 12/26/24 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 Relationship Specialty Start Date End Date Nirav Bello DO [address] [place] [address] PCP - [employer] 05/24/20 Blayne Givens MD [address] [place] [address] PCP - General Internal Medicine 01/01/25 Marianne Davis MD [address] [facility] [address] [place] [address] Referring Physician Cardiology 05/12/23 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 Relationship Specialty Start Date End Date Nirav Bello DO [address] [place] [address] PCP - [employer] 05/24/20 Blayne Givens MD [address] [facility] [address] [place] [address] PCP - General Internal Medicine 01/01/25 Marianne Davis MD 703 [facility] [address] [place] [address] Referring Physician Cardiology 05/12/23 Goals (unrecognized section [...] and content) DATE CREATED AUTHOR 07/15/2022 [facility] DATE CREATED AUTHOR AUTHOR'S ORGANIZ ATION 07/15/2022 [employer] DATE CREATED AUTHOR AUTHOR'S ORGANIZ ATION 09/10/2022 [facility] DATE CREATED AUTHOR AUTHOR'S ORGANIZ ATION 02/25/2024 [facility] DATE CREATED AUTHOR AUTHOR'S ORGANIZ ATION 11/18/[address] [facility] DATE CREATED AUTHOR AUTHOR'S ORGANIZ ATION 12/29/2024 [facility] DATE CREATED AUTHOR AUTHOR'S ORGANIZ ATION 01/10/2025 [facility] DATE CREATED AUTHOR AUTHOR'S ORGANIZ ATION 01/19/2025 [facility] EPIC REASON FOR VISIT (unrecogniz ed section and content) Reason Comments Follow-up 5 month Follow up fo r Hypertension Specialty Diagnoses / Procedures Referred By Contac t Referred To Contact Cardiology Diagnoses Paroxysmal atrial fibrillation (Multi) Procedures Follow Up In Cardiology Missy Khoury MD [address] [facility] [address] [place] [address] Phone: tel: fax: Missy Khoury MD [address] [place] [address] Phone: tel: fax: Referral ID Status Reason Start Date Expiration Date V isits Requested Visits Authorized [id number] Authorized 05/01/2024 05/01/2025 1 1 Reason Comments Annual Exam Specialty Diagnoses / Procedures Referred By Contac t Referred To Contact Diagnoses Paroxysmal atrial fibrillation (CMS/HCC) Procedures ECG 12 Lead Epifanio Davis MD [address] [facility] [address] [place] [address] Referral ID Status Reason Start Date Expiration Date V isits Requested Visits Authorized [id number] Authorized 07/13/2023 07/12/2024 1 1 Reason Comments Follow-up Follow up after test ing Referral ID Status Reason Start Date Expiration Date V isits Requested Visits Authorized [id number] Authorized 01/13/2024 01/12/2025 1 1 Reason Comments Follow-up Add on Specialty Diagnoses / Procedures Referred By Contac t Referred To Contact Radiology Diagnoses PVC (premature ventricular contraction) 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 Ventricular arrhythmia Abnormal electrocardiogram (ECG) (EKG) Procedures Nuclear Stress Test Nuclear Stress Test CHG MYOCARDIAL SPECT MULTIPLE STUDIES Missy Khoury MD [address] [place] [id number] Referral ID Status Reason Start Date Expiration Date Visits Requested Visits Authorized [id number] Authorized Perform Procedure 01/13/2024 01/12/2025 5 5 Specialty Diagnoses / Procedures Referred By Contac t Referred To Contact Cardiology Diagnoses PVC (premature ventricular contraction) Paroxysmal atrial fibrillation (Multi) Procedures Transthoracic Echo Complete ND ECHO TTHRC R-T 2D W/WOM-MODE COMPL SPEC&COLR D Missy Khoury MD [address] [place] [address] Referral ID Status Reason Start Date Expiration Date Visits Requested Visits Authorized [id number] Authorized Perform Procedure 01/13/2024 01/12/2025 1 1 Reason Comments Hospital Follow-up Patient presents [facility] for a [facility] follow up 01/10/24 for hypertension. He was in the ER the previous week for a-fib. He was started on Abiraterone recently and his BP went up consistently in the 160s. He sees cardiology Thurs for the a-fib. Reason Comments Hospital Follow-up Pt presents hospital follow up at [facility] on 05/03 for hypertension. Pt states he BP still feels elevated, although he hasn't been checking he BP at home. Pt denies chest pain, SOB or blurry vision Reason Comments Excision Reason Comments Follow-up Reason Comments Hypertension Patient's BP reading s 190/90 in the evenings. Patient was seen at [facility] 08/01/24 for hypertension and Norvasc 5mg one tab every AM was started. Had follow up ER visit with [facility] 08/04/24 Reason Comments Suture / Staple Removal Reason Comments Suspicious Skin Lesion New Problem : SCC left cheek Specialty Diagnoses / Procedures Referred By Katie bhat Referred To Contact Otolaryngology Diagnoses Squamous cell carcinoma of skin of face Procedures ND OFFICE/OUTPATIENT NEW HIGH MDM 60 MINUTES Laura Hensley MD [address] [place] [address] Phone: tel: fax: Juan Guzman, [address] [place] [address] Phone: tel: fax: Referral ID Status Reason Start Date Expiration Date V isits Requested Visits Authorized [id number] Closed Specialty Services Required 11/02/2024 05/01/2025 1 1 Reason Comments Medicare Annual Wellness Vis it Subsequent Pt is being seen today for his annual MW V and managment of his chronic conditions. Pt had lab work done in preparations for todays visit, results and recommendations will be reviewed with them. Reason Comments Post-op Post op Exc SCC left cheek Reason Comments Follow-up Patient here for 8 w [place]oonah recheck of blood pressure; c/o occasional headache and tightness in his neck. Specialty Diagnoses / Procedures Referred By Katie bhat Referred To Contact Cardiology Diagnoses Primary hypertension Procedures Follow Up In Cardiology Missy Khoury MD [address] [facility] [address] [place] [address] Phone: tel: fax: Missy Khoury MD [address] [facility] [address] [place] [address] Phone: tel: fax: Referral ID Status Reason Start Date Expiration Date V isits Requested Visits Authorized [id number] Authorized 10/02/2024 10/02/2025 1 1 Reason Comments Follow-up 2 week Follow up for Hypertension Specialty Diagnoses / Procedures Referred By Contac t Referred To Contact Cardiology Diagnoses Primary hypertension Procedures Follow Up In Cardiology Seng Angeles, SEC[employer]ITY INCIDENT HANDLER-CAREER DEVELOPMENT DIRECTOR [address] [facility] [address] [place] [address] Phone: tel: fax: Referral ID Status Reason Start Date Expiration Date V isits Requested Visits Authorized [id number] Authorized 12/26/2024 12/26/2025 1 1 Reason Comments Mohs Micrographic Surgery FOR RECORDS PERTAINING TO PATIENTS WHO ARE [...] BE BASED ON THE PRIMARY CLINICAL RECORDS. [employer] provides no warranty or guarantee of the accuracy or completeness of information in this document.
[2025-01-25 07:30] LABS: Hematocrit 37.0 % (42.0-54.0); Hemoglobin 12.2 g/dL (14.0-18.0); Immature Granulocytes Abs Auto 0.05 10^3/uL (0.00-0.03); Immature Granulocytes Pct Auto 0.8 % (0.0-0.5); Lymphocytes Absolute Auto 2.1 10^3/uL (1.2-3.8); Mean Corpuscular HGB Conc 33.0 g/dL (29.9-35.2); Mean Corpuscular Hemoglobin 30.7 pg (25.9-34.0); Mean Corpuscular Volume 93.2 fL (80.0-94.0); Platelet Count 174 10^3/uL (150-450); Red Blood Count 3.97 10^6/uL (4.70-6.10); White Blood Count 6.5 10^3/uL (4.0-11.0)
[2025-01-25 09:09] LABS: Prostate Specific Antigen Dx 1.93 ng/mL (<=4.00)
== END 2025-01-25 07:15 | disposition home or self-care (01) ==
LOC: LAB 07:16
PROVIDERS: PCP Internal Medicine
DX: C61 Malignant neoplasm of prostate (principal)
CPT/HCPCS: 36415; 84153; 84403; 85025

== ENCOUNTER 2025-03-14 14:30 | Outpatient (OUT) | payer MEDICARE, SELFPAY ==
--- OUTSIDE RECORDS SUMMARY | 2025-03-14 14:36 | XMS_ITS | Clinical Summary ---
Author Organization [facility] Address [address] [place] [address] Phone Care Team Providers Care Community Program Assistant Name Role Phone Pierre Murdock MD Primary Care Provider [phone] Allergies Active AllergyReactionsCriticalityNoted DateCommentsSulfa (Sulfonamide Antibiotics)Hives05/28/20239963UbjwmbsaucgIggor93/22/2024 hypertension Medications MedicationSigDispense QuantityRefillsLast FilledStart DateEnd DateStatus ascorbic acid, vitamin C, 500 mg capsule Take 1 capsule by mouth once daily.Active cholecalciferol (Vitamin D-3) 25 MCG (1000 UT) capsule Take 1 capsule (25 mcg) by mouth once daily.Active cyanocobalamin (Vitamin B-12) 1,000 mcg tablet Take 1 tablet (1,000 mcg) by mouth once daily.Active metFORMIN (Glucophage) 500 mg tablet Take 1 tablet (500 mg) by mouth once daily.07/05/2020ctive mirtazapine (Remeron) 15 mg tablet Take 1 tablet (15 mg) by mouth once daily at bedtime.05/14/2021ctive ynmuis-hunxakof-txpgvlu (Creon) 24,000-76,000 -120,000 unit capsule Take 1 capsule by mouth 3 times daily (morning, midday, late afternoon). 11/17/2022ctive cloNIDine (Catapres) 0.1 mg tablet Indications:Primary hypertensionTake 1 tablet (0.1 mg) by mouth once daily. 90 tablet /ctive rivaroxaban (Xarelto) 20 mg tablet Indications:Paroxysmal atrial fibrillation (Multi)Take 1 tablet (20 mg) by mouth once daily. 90 tablet ctive metoprolol succinate XL (Toprol-XL) 50 mg 24 hr tablet Indications:Primary hypertensionTake 1 tablet (50 mg) by mouth 2 times a day. Do not crush or chew. 180 tablet ctive lisinopril 20 mg tablet Indications:Primary hypertensionTake 1 tablet (20 mg) by mouth 2 times a day. 180 tablet ctive atorvastatin (Lipitor) 20 mg tablet Indications:Mixed hyperlipidemiaTake 0.5 tablets (10 mg) by mouth once daily. 45 tablet ctive amLODIPine (Norvasc) 5 mg tablet Indications:Primary hypertensionTake 1 tablet (5 mg) by mouth once daily. 90 tablet ctive Active Problems ProblemNoted DateDiagnosed DateMedication course wgquxnn3710/02/2024MI 22.0-22.9, adult05/01/2024Encounter to discuss test rgidcnb0005/01/2024enign hypertensive kidney disease with chronic kidney disease stage V or end stage renal disease 05/01/2024VC (premature ventricular contraction)01/13/2024Long term current use of anticoagulant mrcykol7301/13/2024High risk medication use01/13/2024Stage 3a chronic kidney vnuoveq4201/13/2024rostate uxqecw1101/13/2024Nonrheumatic mitral valve pgkuqougokrpu72/22/2024Former canduu7507/13/2023rimary hypertension 05/28/2023iabetes rbfhchhu63/05/1283Vhxlakkjozqibv96/05/2024aroxysmal atrial htxbfzfonsec67/05/2024 Encounters DateTypeDepartmentCare IvufAuqnvmsvnlm22/19/2025 8:00 AM EDTOffice [facility] [address] [address] Diana Angeles, CECELIA-MOBILE APPLICATION ARCHITECT BMI 22.0-22.9, adult (Primary Dx); Primary hypertension; 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) Discharge Disposition: Home01/09/20251996Mgdxml40/05/2025 4:00 PM EDTOffice Visit [address] [place] [address] Diana Angeles, VP RHEUMATOLOGY-MOBILE APPLICATION ARCHITECT Primary /05/2025Travelfrom Last 3 Months Immunizations ImmunizationAdministration DatesNext DueInfluenza, trivalent, adjuvanted 4Pneumococcal conjugate vaccine, 13-valent (PREVNAR 13)05/24/2016 Pneumococcal polysaccharide vaccine, 23-valent, age 2 years and older (PNEUMOVAX 23)05/24/2012Zoster vaccine, recombinant, adult (SHINGRIX)03/11/2019,12/22/2018 Family History Medical HistoryRelationNameCommentsHeart diseaseFatherRelationNameStatusComments Father Social History Tobacco UseTypesPacks/DayYears UsedDateSmoking Tobacco: FormerCigarettesQuit: 1990Smokeless Tobacco: Never Tobacco Cessation:Counseling Given: Not Answered Alcohol UseStandard Drinks/WeekCommentsNever0 (1 standard drink = 0.6 oz pure alcohol)Sex and Gender InformationValueDate RecordedSex Assigned at BirthNot on fileLegal IdoTuah24/25/2022 9:56 PM ESTGender IdentityNot on fileSexual OrientationNot on file Last Filed Vital Signs Vital SignReadingTime TakenCommentsBlood Rhsjjagm464/72001/09/2025 8:06 AM EDT Kbnhc0876/19/2025 7:53 AM EDTTemperature--Respiratory Rate--Oxygen Saturation-- Inhaled Oxygen Concentration--Xnigox77.9 kg (160 lb 12.8 oz)01/09/2025 7:53 AM XHUDoqfmh011.3 cm (5' 11 )01/09/2025 7:53 AM EDTBody Mass Index22.43001/09/2025 7:53 AM EDT Plan of Treatment DateTypeDepartmentCare Team (Latest Contact Info)Najczmneaic90/19/2026 10:00 AM ESTOffice Visit [address] [place] [address] Missy Khoury MD [address] [facility] [address] [place], [place] [id number] Health MaintenanceDue DateLast DoneCommentsDiabetes: Hemoglobin A1C1938 Diabetes: Urine Protein Wdvsfiryl89/21/1939Lipid Panel1938Medicare Annual Wellness Visit (AWV)1938Diabetes: Retinopathy Hngazckzu18/21/1949 DTaP/Tdap/Td Vaccines (1 - Tdap)1RSV High Risk: (Elderly (60+) or Population) (1 - 1-dose 75+ series)2013Influenza Vaccine (#1) 5105/25/2023, 03/20/2023, 03/10/2022, Additional history existsCOVID-19 Vaccine (2024- season)5105/25/2023, 04/28/2023, 04/03/2022, Additional history existsPneumococcal BicimvrZerazxzre88/01/2017, 12/14/2013, 05/24/2012, Additional history existsZoster DjdzmrebRekenhldc10/19/2019, 12/22/2018, 10/10/2012one Density JwnuSfbgybcxujrg84/18/2024HIB VaccinesAged OutNo longer eligible based on patient's age to complete this topicHPV Vaccines Aged OutNo longer eligible based on patient's age to complete this topic Hepatitis A VaccinesAged OutNo longer eligible based on patient's age to complete this topicHepatitis B VaccinesAged OutNo longer eligible based on patient's age to complete this topicIPV VaccinesAged OutNo longer eligible based on patient's age to complete this topicMeningococcal VaccineAged OutNo longer eligible based on patient's age to complete this topicRotavirus VaccinesAged Out No longer eligible based on patient's age to complete this topic Insurance Care Teams Team MemberRelationshipSpecialtyStart DateEnd Pierre Murdock MD [address] [facility] [address] [place] [address] PCP - GeneralInternal Medicine12/26/24
--- OUTSIDE RECORDS SUMMARY | 2025-03-14 14:36 | XMS_ITS | Clinical Summary ---
Author Organization [facility] Healthcare Address [address] [place] [address] Care Team Providers Care Merchandise Marker Name Role Phone Nirav Duenas DO Unavailable [phone] Marianne Davis MD Unavailable [phone] Pierre Murdock MD Primary Care Provider [phone] Allergies Active AllergyReactionsCriticalityNoted DateCommentsSulfa AntibioticsHives 05/28/20230652SpdpdycvfkdmcMvhuooc04/21/2023 Medications MedicationSigDispense QuantityRefillsLast FilledStart DateEnd DateStatus rivaroxaban (Xarelto) 20 MG tablet 1 (one) time each day at the same timeActive calcitriol (Rocaltrol) 0.5 MCG capsule Take 0.5 mcg by mouth DailyActive metoprolol succinate XL (Toprol-XL) 50 MG 24 hr tablet Take 50 mg by mouth in the morning and 50 mg before bedtime.07/13/2023ctive atorvastatin (Lipitor) 20 MG tablet Indications:Mixed hyperlipidemiaTAKE 1 TABLET AT NIGHT 90 tablet ctive lisinopril 20 MG tablet Indications:Primary hypertensionTake 1 tablet (20 mg) by mouth in the morning and 1 tablet (20 mg) before bedtime. 180 tablet ctive denosumab (Xgeva) 120 MG/1.7ML injection Inject 120 mg under the skin every 3 (three) monthsActive cloNIDine (Catapres) 0.1 MG tablet Indications:Primary hypertension,PAF (paroxysmal atrial fibrillation) (HCC), Chest pain, unspecified typeTake 1 tablet (0.1 mg) by mouth 2 (two) times a day as needed for high blood pressure 180 tablet 112/30/2024Active pancrelipase, Pqu-Xchv-Liyf, (Creon) 07738-11259 units capsule Indications:Malignant neoplasm of prostate (HCC),Exocrine pancreatic insufficiency (HCC)TAKE 1 CAPSULE IN THE MORNING, 1 CAPSULE AT NOON AND 1 CAPSULE IN THE EVENING WITH MEALS 360 capsule 5Active amLODIPine (Norvasc) 5 MG tablet Indications:Primary hypertensionTake 1 tablet (5 mg) by mouth Daily 90 tablet 5Active metFORMIN (Glucophage) 500 MG tablet Indications:Type 2 diabetes mellitus with other specified complication, without long-term current use of insulin (HCC)TAKE 1 TABLET IN THE EVENING WITH A MEAL 90 tablet 5Active dicyclomine (Bentyl) 20 MG tablet Indications:Other irritable bowel syndromeTake 1 tablet (20 mg) by mouth 4 (four) times a day as needed (abdominal pain or cramps) 120 tablet 5Active fluorouracil (Efudex) 5 % cream Indications:Actinic keratosisApply to directed areas on the face, and backs of hands twice a day x 14 days. Dispense 30 day supply but only use for 14 days 40 g 5Active mirtazapine (Remeron) 15 MG tablet Indications:Current mild episode of major depressive disorder without prior episodeTAKE 1 TABLET AT BEDTIME 90 tablet 5Active Active Problems ProblemNoted DateDiagnosed DateAllergic rmupeafwv31/18/2024Frequent PVCs 4PAF (paroxysmal atrial fibrillation)05/12/2023Exocrine pancreatic bitrydqtlefxq62/20/7490Kicpngyeltczeq47/13/2023Type 2 diabetes mellitus with other specified /13/2023asal cell carcinoma (BCC) of skin of left upper lip10/11/2022asal cell carcinoma of back10/11/2022asal cell carcinoma (BCC) of chin10/11/2022asal cell carcinoma of /21/2023asal cell carcinoma of left cheek10/11/2022CC (basal cell carcinoma), scalp/neck 10/11/2022Stage 3a chronic kidney mzhdzok6605/14/2021ardiac jnbmtralzr30/08/2020 Hyperlipidemia, ozgwpaezzug83/15/5031Xrhdfe24/14/6329Womiwuyjzr88/14/2016HTN (hypertension)05/02/2015Prostate cancer metastatic to bone05/02/2015IBS (irritable bowel syndrome)05/02/2015 Resolved Problems ProblemNoted DateDiagnosed DateResolved DateFat pad Medication course slzkpud06enign hypertensive kidney disease with chronic kidney yjzmudu82ody mass index (BMI) of 23.0 to 23.9 in adultEncounter to discuss test wtwgscs4505/01/2024 11/09/2024High risk medication useLong term current use of anticoagulant vavgeyi18Nonrheumatic mitral valve regurgitation Prostate pbocye18Former ymjjwh8707/13/2023 11/09/2024 Encounters DateTypeDepartmentCare NytcTogipziltej07/04/2025linisync Result Encounter [facility] External Department Unsolicited Provider, Generic External Data 01/18/2025Telephone [facility] [address] [place] [address] Cecilia Batista LPN Courtesy call01/17/2025 1:30 PM EDTOffice Visit [facility] [address] [place] [address] Cecilia Samuels MD 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01/17/2025Refill [facility] [address] [place] [address] Nirav Duenas DO Current mild episode of major depressive disorder without prior episode 01/17/2025amboo flowsheet [facility] [address] [place] [address] Cecilia Samuels MD 01/17/2025Travelfrom Last 3 Months Immunizations ImmunizationAdministration DatesNext DueInfluenza, High Dose Seasonal, Preservative Free03/12/2021,02/24/2020,03/01/2019,02/21/2019,02/25/2018, 03/16/2017,03/30/2016,03/22/2015Influenza, High-dose Seasonal, Quadrivalent, Preservative Free02/26/2021Influenza, Seasonal, Quadrivalent, Adjuvanted 03/20/2023,03/10/2022,03/15/2020Influenza, seasonal, intradermal, preservative free05/02/2015Influenza, trivalent, myiomchmvn48/02/2024Moderna SARS-CoV-2 Booster Ddbttolwnch05/27/2021Novel hxkiiwtwk-B7H0-22, preservative-free 05/31/2009Pneumococcal Conjugate PCV 13005/24/2016,12/14/2013Pneumococcal Polysaccharide HFQI3113,07/23/2003Zoster, Jmnoxkgesrh05/19/2019, 12/22/2018Zoster, live10/10/2012 Family History Medical HistoryRelationNameCommentsHeart diseaseFatherWilliamHeart diseaseMother NoveldaMelanomaNeg HxRelationNameStatusCommentsDaughterAliveFatherWilliam DeceasedMotherNoveldaDeceased Social History Tobacco UseTypesPacks/DayYears UsedDateSmoking Tobacco: FormerCigarettes0.33 06/12/1956 - 05/24/1959PipePassive Smoke Exposure: PastSmokeless Tobacco: Never Tobacco Cessation:Counseling Given: Not Answered Alcohol UseStandard Drinks/WeekCommentsYes0 (1 standard drink = 0.6 oz pure alcohol)on occasionAUDIT-CAnswerDate RecordedQ1: How often do you have a drink containing alcohol?2-4 times a month01/11/2024Q2: How many drinks containing alcohol do you have on a typical day when you are drinking?1 or Q3: How often do you have six or more drinks on one occasion?Never01/11/2024HQ-2 AnswerDate RecordedPatient Health Questionnaire-2 Axvco989Sex and Gender InformationValueDate RecordedSex Assigned at BirthNot on fileLegal SexMale 08/05/2022 7:06 PM EDTGender IdentityNot on fileSexual OrientationNot on file Last Filed Vital Signs Vital SignReadingTime TakenCommentsBlood Uovruxxo102/7808 3:35 PM EDT Nrjxp2033 9:37 AM GHCQrjzcdylgbt94.7 ??C (98 ??F)05/26/2023 10:41 AM EST Respiratory Wxum064808/04/2024 10:06 AM EDTOxygen Kcnqyboayf46%12/03/2024 9:37 AM EDTInhaled Oxygen Concentration--Oqrdlw57.6 kg (160 lb)12/03/2024 9:37 AM EDT Wllbyz443.3 cm (5' 9 )11/27/2024 10:09 AM EDTBody Mass Index23.6307 10:09 AM EDT Plan of Treatment DateTypeDepartmentCare Team (Latest Contact Info)Zmybeerurnq86/17/2025 8:30 AM ESTOffice Visit [facility] [address] [place] [address] Charleen Hensley MD [address] [place] [address] 05/21/2025 9:30 AM ESTOffice Visit [facility] [address] [place] [address] Health MaintenanceDue DateLast DoneCommentsCT Gdtakpontcsb60/21/1939FIT-DNA 1938FIT1938FOBT1938 9996Coxuppzlexcvn80/21/1939Diabetes: Hemoglobin A1C/, 05/10/2024, 11/05/2022, Additional history exists Diabetes: Urine Protein Wnojbwfzx18/01/2025, 11/05/2021, 11/07/2020 Medicare Annual Wellness (AWV), 11/14/2024Diabetes: Retinopathy Fxznpcale55/24/548047, 12/11/2021, 06/20/2018Colonoscopy /07/2022, 12/16/2015, 11/28/2015Colorectal Cancer Screening 3Pneumococcal Vaccine: 65+ SvbayUolmiagqw07/01/2017, 12/14/2013, 05/24/2012, Additional history existsInfluenza JikdbarCodezouwp07/22/2025, 03/25/2024, 03/20/2023, Additional history exists Procedures Procedure NamePriorityDate/TimeAssociated DiagnosisCommentsALL TESTOSTERONE Bxkcrwy3401/25/2025 7:26 AM EDT MHPT PSA, PJQMWWHAIPSilikuh65/04/2025 7:26 AM EDT ALL CBC WITH AUTO ZOZCSpuzgqg44/04/2025 7:26 AM EDT MOHS PXODZCGPwpdbra77/27/2025 1:19 PM EDT 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 POCT GLYCOSYLATED HEMOGLOBIN (HGB A1C)Ynrnovh5511/14/2024 9:42 AM EDT Type 2 diabetes mellitus with other specified complication, without long-term current use of insulin (HCC) DIABETIC RETINOPATHY SCREENING - OU - BOTH NEQBEegbjpq68/24/2024 9:30 AM EDT GZKYUDNCBTIZenklyp71/03/2023 1:49 PM EDTMICROALBUMIN CREATININE RATIO, URoutine 11/05/2021 from Last 3 Months or Most Recently Relevant to Health Maintenance Results * MHPT PSA, DIAGNOSTIC (01/25/2025 7:26 AM EDT)ComponentValueRef RangeTest MethodAnalysis TimePerformed AtPathologist SignaturePROSTATE SPECIFIC ANTIGEN DX1.93<=4.00 ng/mLTBHSpecimen (Source)Anatomical Location / Laterality Collection Method / VolumeCollection TimeReceived Time01/25/2025 7:26 AM EDT 01/25/2025 7:28 AM EDT Narrative CLINISYNC - 01/25/2025 9:11 AM EDT Authorizing ProviderResult TypeResult StatusGeneric External Data Provider CLINISYNCFinal ResultPerforming OrganizationAddressty/State/ZIP CodePhone Number [facility] * (ABNORMAL) ALL TESTOSTERONE (01/25/2025 7:26 AM EDT)ComponentValueRef Range Test MethodAnalysis TimePerformed AtPathologist SignatureTESTOSTERONE<3(A)264 - 916 ng/dLTBHComment: Adult male reference interval is based on a population of healthy nonobese males (BMI <30) between 19 and 39 years old. John et.al. JCEM 2017,102;4432-7613. PMID: [id number]. Performed at: ??CB - [facility] [address] ??[id number] Vehicle Calibration Engineer: Miguel Cullen PhD, Phone: ??[phone] Specimen (Source)Anatomical Location / LateralityCollection Method / Volume Collection TimeReceived Time01/25/2025 7:26 AM EDT01/25/2025 7:28 AM EDT Narrative CLINISYLA - 01/26/2025 4:07 AM EDT Authorizing ProviderResult TypeResult StatusGeneric External Data Provider CLINISYNCF [facility] Hospitalal ResultPerforming OrganizationAddressty/State/[facility] CodePhone Number [facility] * (ABNORMAL) ALL CBC WITH AUTO DIFF (01/25/2025 7:26 AM EDT)ComponentValueRef RangeTest MethodAnalysis TimePerformed AtPathologist SignatureTBH WBC6.54.0 - 11.0 10 3/uLTBHTBH RBC3.97(L)4.70 - 6.10 10 6/uLTBHTBH HGB12.2(L)14.0 - 18.0 g/dLTBHTBH HCT37.0(L)42.0 - 54.0 %TBHTBH MCV93.280.0 - 94.0 fLTBHTBH MCH30.7 25.9 - 34.0 pgTBHTBH MCHC33.029.9 - 35.2 g/dLTBHTBH RDW13.311.0 - 15.0 %TBHTBH YOL759584 - 450 10 3/uLTBHTBH MPV10.29.5 - 13.5 fLTBHNEUTROPHILS PERCENT AUTO 53.443.0 - 75.0 %TBHLYMPHOCYTES PERCENT AUTO32.420.5 - 60.0 %TBHMONOCYTES PERCENT AUTO7.71.7 - 12.0 %TBHTBH EO %4.80.9 - 7.0 %TBHBASOPHILS PERCENT AUTO 0.90.2 - 2.0 %TBHIMMATURE GRANULOCYTES PCT AUTO0.8(H)0.0 - 0.5 %TBHNEUTROPHILS ABSOLUTE AUTO3.51.4 - 6.5 10 3/uLTBHLYMPHOCYTES ABSOLUTE AUTO2.11.2 - 3.8 10 3/uLTBHMONOCYTES ABSOLUTE AUTO0.50.3 - 0.8 10 3/uLTBHTBH EO #0.30.0 - 0.7 10 3/uLTBHBASOPHILS ABSOLUTE AUTO0.10.0 - 0.1 10 3/uLTBHIMMATURE GRANULOCYTES ABS AUTO0.05(H)0.00 - 0.03 10 3/uLTBHSpecimen (Source)Anatomical Location / LateralityCollection Method / VolumeCollection TimeReceived Time01/25/2025 7:26 AM EDT01/25/2025 7:28 AM EDT Helen JIMENEZ - 01/25/2025 7:30 AM EDT Authorizing ProviderResult TypeResult StatusGeneric External Data Provider CLINISYNCFinal ResultPerforming OrganizationAddressCity/State/ZIP CodePhone Number [facility] * Mohs surgery (01/17/2025 1:19 PM EDT) Narrative Roseann Lares MA - 01/17/2025 1:19 PM EDT Consent obtained: written [place] Protocol: Procedure explained and questions answered to patient or proxy's satisfaction: Yes ?? Test results available and properly labeled: Yes ?? Pathology report reviewed: Yes ?? External notes reviewed: Yes ?? Photo or diagram used for site identification: Yes ?? Site/side marked: Yes ?? Slide independently reviewed by Mohs surgeon: Yes ?? Anticoagulation: Is the patient taking prescription anticoagulant and/or aspirin prescribed/recommended by a physician? Yes ?? Was the anticoagulation regimen changed prior to Mohs? No ?? Anesthesia: Anesthesia method: local infiltration Local anesthetic: lidocaine 1% WITH epi and sodium bicarbonate Procedure Details: Timeout: pre-procedure verification complete Procedure Prep: patient was prepped and draped in usual sterile fashion Prep type: chlorhexidine Biopsy accession number: [id number] Biopsy lab: [facility] Date of biopsy: 10/26/2024 Frozen section biopsy performed: Yes ?? Specimen debulked: No ?? Pre-Op diagnosis: squamous cell carcinoma SCC subtype: [...] surgery depth of defect: dermis Stage 1 ?? Comments: The area was prepped with Hibiclens, [...] stage: 1 Number of positive blocks: 1 ?? Tumor features identified on Mohs section: squamous cell carcinoma ?? Tumor features identified on Mohs section comment: in situ with adnexal extension ?? Depth of tumor invasion after stage: dermis Stage 2 ?? Comments: The patient returned to the procedure [...] and the Mohs procedure was considered complete. ? Tumor features identified on Mohs section: no tumor identified ?? Depth of tumor invasion after stage: dermis Patient tolerance of procedure: tolerated well, no immediate complications Reconstruction: Was the defect reconstructed?: No ?? Antibiotics: Were antibiotics given on the day of surgery?: No ?? Authorizing ProviderResult TypeResult StatusCecilia Samuels MDDERM PROCEDURE ORDERABLESFinal Result * POCT glycosylated hemoglobin (Hb A1C) docked device (11/14/2024 9:42 AM EDT) ComponentValueRef RangeTest MethodAnalysis TimePerformed AtPathologist SignatureHemoglobin A1C6.9Specimen (Source)Anatomical Location / Laterality Collection Method / VolumeCollection TimeReceived TimeBloodVenous blood specimen / Ibvkitq5011/14/2024 9:42 AM EDT Narrative Authorizing ProviderResult TypeResult StatusNirav Duenas DOPOINT OF CARE TEST ENTER/EDIT ORDERABLESFinal Result * Diabetic Retinopathy Screening - OU - Both Eyes (03/16/2024 9:30 AM EDT) Anatomical RegionLateralityModalityHeadOther Narrative Authorizing ProviderResult TypeResult StatusUnknown Practice AOPHTH PHOTOGRAPHY Final Result * Colonoscopy (12/24/2022 1:49 PM EDT)Anatomical RegionLateralityModality Endoscopy Narrative Authorizing ProviderResult TypeResult StatusUnknown Practice AENDOSCOPY PROCEDURE ORDERABLESFinal Result * MICROALBUMIN CREATININE RATIO, U (11/05/2021)ComponentValueRef RangeTest MethodAnalysis TimePerformed AtPathologist SignatureMALB<1.3<=30.0[facility]URINE VBXCH826.0320.00 - 300.00[facility] EXTERNAL LABMALB CR RATIO11.40.0 - 29.9[facility] EXTERNAL LABMALB CR RATIO RANGESEE BELOWNOMS LEGACY EXTERNAL LABComment:NO MICROALBUMINURIA 0-29 MG/G CLINICAL MICROALBUMINURIA 30-300 MG/G MACROALBUMINURIA >300 MG/GPERFORMING LAB:see note [facility]GAC[facility] EXTERNAL LABComment:[address] Laboratory - [address] [address] ,Ext. [phone] specimen (Source)Anatomical Location / LateralityCollection Method / VolumeCollection TimeReceived Time11/05/2021 Narrative Authorizing ProviderResult TypeResult StatusNirav Duenas DOECW LABSFinal ResultPerforming OrganizationAddressCity/State/ZIP CodePhone Number [facility] from Last 3 Months or Most Recently Relevant to Health Maintenance Insurance Care Teams Team MemberRelationshipSpecialtyStart DateEnd Date Nirav Duenas DO [address] [place] [address] PCP - [employer]05/24/20 Pierre Murdock MD [address] [place] [address] PCP - GeneralInternal Medicine01/01/25 Marianne Davis MD [address] [address] Referring QvawxoiuwNnlwhmngxx60/20/23
--- OUTSIDE RECORDS SUMMARY | 2025-03-14 14:36 | XMS_ITS | Clinical Summary ---
Author Organization [facility] Address [address] [place] [address] Care Team Providers Care Member [employer] Name Role Phone Unavailable Primary Care Provider Unavailabl e Encounters DateTypeDepartmentCare RbidKeunpgfuety27/25/2025Lab Requisition [facility] [address] [place], [place] [address] Dorian Morgan MD Anemia, unspecifiedfrom Last 3 Months Social History Tobacco UseTypesPacks/DayYears UsedDateSmoking Tobacco: Never AssessedSex and Gender InformationValueDate RecordedSex Assigned at BirthNot on fileLegal Sex Male06/06/2013 9:46 AM ESTGender IdentityNot on fileSexual OrientationNot on file Plan of Treatment Health MaintenanceDue DateLast DoneCommentsAnxiety Axqlgtsfa92/21/1957Depression Hmoowzvpv85/21/1957DTaP,Tdap,Td Vaccine (1 - Tdap)1957Diabetes Screening 1983Pneumococcal Vaccine: 50+ (1 of 1 - PCV)1988Shingrix Vaccine (1 of 2)1988RSV Vaccine (1 - 1-dose 75+ series)2013dvance Directive Ycyhfrotel41/01/2025ovid-19 Vaccine (1 - 2024-26 season)2025Influenza Vaccine (#1)2025 Procedures Procedure NamePriorityDate/TimeAssociated DiagnosisCommentsCBC + DIFFRoutine 01/15/2025 2:00 PM EDT Anemia, unspecified from Last 3 Months Results * COMPLETE BLOOD COUNT AND DIFFERENTIAL (01/15/2025 2:00 PM EDT)ComponentValue Ref RangeTest MethodAnalysis TimePerformed AtPathologist SignatureWBC8.743.70 - 11.00 k/uL01/15/2025 11:03 PM [facility] LABRBC4.324.20 - 6.00 m/01/15/2025 11:03 PM EDTCMEM[facility]IAL [facility] LABHemoglobin 13.313.0 - 17.0 g/dL01/15/2025 11:03 PM EDTCMEM[facility]IAL [facility] LAB Cdwgnzqcct92.239.0 - 51.0 %01/15/2025 11:03 PM EDTCM[facility]IAL [facility]ITAL GCSWYZ23.480.0 - 100.0 [place]01/15/2025 11:03 PM EDTCM[facility] QISSZK67.826.0 - 34.0 pg01/15/2025 11:03 PM EDTCMEM[facility]IAL [facility] DJJOATL98.330.5 - 36.0 g/dL01/15/2025 11:03 PM EDTCMEMORIAL [facility]ITAL LABRDW-CV13.811.5 - 15.0 %01/15/2025 11:03 PM EDTCMEMORIAL H[facility]ITAL LABPlatelet Qhrwz291911 - 400 k/01/15/2025 11:03 PM EDTCMEMORIAL HOSPITAL EGRCNZ17.29.0 - 12.7 [place]01/15/2025 11:03 PM EDTCMEMORIAL H[facility]PITAL LABNeutrophils %71.7%01/15/2025 11:03 PM EDTCMEMORIAL H[facility]PITAL LABAbs Neut6.261.45 - 7.50 k/01/15/2025 11:03 PM EDTCMEM[facility]IAL [facility]ITAL LABLymphocytes %20.0%01/15/2025 11:03 PM EDTCMEMORIAL H[facility]ITAL LABAbs Lymph1.751.00 - 4.00 k/01/15/2025 11:03 PM EDTCMEMORIAL [facility]ITAL LABMonocytes %5.8%01/15/2025 11:03 PM EDTCMEMORIAL H[facility]ITAL LABAbs Mono0.51<0.87 k/01/15/2025 11:03 PM EDTCMEM[facility]IAL [facility]ITAL LABEosinophils %0.9%01/15/2025 11:03 PM EDTCMEMORIAL H[facility]PITAL LABAbs Eosin0.08<0.46 k/01/15/2025 11:03 PM EDTCM[facility]IAL [facility]ITAL LABBasophils %1.0%01/15/2025 11:03 PM EDTCMEM[facility]IAL [facility]ITAL LABAbs Baso0.09<0.11 k/01/15/2025 11:03 PM EDTCMEM[facility]IAL [facility]ITAL LAB Immature Granulocytes %0.6%01/15/2025 11:03 PM [facility] LABAbs Immature Gran0.05<0.10 k/01/15/2025 11:03 PM EDTCMEMORIAL HOSPITAL LABNRBC0.0/100 WBC01/15/2025 11:03 PM EDHOLM[facility] LABAbsolute nRBC<0.01<0.01 k/01/15/2025 11:03 PM EDTCMEMORIAL HOSPITAL LABDiff HhqvNdzn88/25/2025 11:03 PM [facility] Specimen (Source)Anatomical Location / LateralityCollection Method / Volume Collection TimeReceived TimeBloodBLOOD SPECIMEN / Makydzu1901/15/2025 2:00 PM EDT01/15/2025 9:37 PM EDT Narrative Authorizing ProviderResult TypeResult StatusDorian Morgan MDLABORATORYFinal ResultPerforming OrganizationAddressCity/State/ZIP CodePhone Number [facility] [address] [address], [place] from Last 3 Months Insurance
--- OUTSIDE RECORDS SUMMARY | 2025-03-14 14:39 | XMS_ITS | CCD ---
Author Organization [facility] Care Team Providers Care Food Management Aide Name Role Phone Nirav Bello Primary Care Provider [phone] Ryan Negron Attending Provider Nirav Bello Unavailable Unavailable Unavailable DO Nirav Bello Primary Care Provider [phone] DO Juan Guzman Attending Provider [phone] Dr. Nirav Bello Abhilash Primary Care Unavai [...] Unavailable DO Nirav Bello Primary Care Provider [phone] MD Jj Garcia Attending Provider Nirav Bello DO Primary Care Provider DO Nirav Bello Primary Care Provider NON STAFF Attending Provider Unavailable KHOURY, MISSY Referring Unavailable ACE, NIRAV A Primary Care Unavailable KHOURY, MISSY Referring Unavailable ACE, NIRAV A Primary Care Unavailable Ace DO Nirav A Unavailable [phone] Ace WALKER, Nirav A Primary Care Provider Ryan ZAMORA, Marianne Unavailable [phone] Nirav Bello DO Primary Care Provider Colin Thompson MD Attending Provider [phone] Nirav Bello DO Primary Care Provider Juan Guzman DO Attending Provider Odilon ZAMORA, Miller Guido Attending Provider Blayne Givens MD Primary Care Provider [phone] Miller Donald Admitting Unavailable Miller Donald Attending [...] Unavailable Blayne Givens MD Primary Care Provider [phone] LAURA HENSLEY Attending Unavailable LAURA HENSLEY Attending Unavailable LAURA HENSLEY Attending Unavailable OLGA DALEY Attending Unavailable PETITTGrace, LAURA Vargas Attending Unavailable NIRAV BELLO Attending Unavailable NIRAV BELLO Referring Unavailable AAMIR NANCE Attending Unavailable PUSHPA, LAURA Vargas Attending Unavailable JUAN GUZMAN Attending Unavailable LAURA HENSLEY Referring Unavailable NIRAV BELLO Attending Unavailable JUAN GUZMAN Attending Unavailable LAURA HENSLEY Attending Unavailable CECILIA GARCIA Attending Unavailable PETWINSTON, LAURA Vargas Attending Unavailable NIRAV BELLO Attending Unavailable NIRAV BELLO Referring Unavailable Unavailable Unavailable Unavailable Allergies Allergy ClassificationReported Allergen(s)Allergy TypeDate of OnsetReaction(s) Facility (4 sources)Sulfonamides (Antibiotic); Translations: [Sulfa Drugs]Allergy to drug (finding)[place] [address] DO Work Phone: (17 sources)Sulfonamides (Antibiotic); Translations: [SULFA (SULFONAMIDE ANTIBIOTICS)]Allergy to mwsohdsuy66-20-9232[facility])Sulfonamides (Antibiotic)Drug allergy (disorder)[facility] Repository (20 sources)Substance with sulfonamide structure and antibacterial mechanism of action (substance)Drug hnqmzuo80-12-6731[facility] (13 sources)abiraterone; Translations: [ABIRATERONE]Drug Lmzqnhk09-70-6534[facility] (20 sources)SulfanilamideAllergy to jzeixzgev92-83-3305RdsasylETAT Healthcare Medications Current Medications MedicationDrug Class(es)DatesSig (Normalized)Sig (Original)abiraterone acetate 250 mg oral tablet (11 sources)Cytochrome P450 17A1 InhibitorStart: 10-15-2024 End: 07-61-1883fvcmxoplgog (Zytiga) 250 MG chemo tablet 10/15/2024 11/14/2024 Discontinuedtake 4 tablets by mouth once dailyabiraterone (Zytiga) 250 MG chemo tablet Take 4 tablets by mouth Daily. Swallow whole. Do not eat 2hrs before or 1 hr after. ActiveamLODIPine 5 mg oral tablet (20 sources)Dihydropyridine Calcium Channel BlockerStart: 08-01-2024 End: 97-48-7047xeip 1 tablet by mouth once dailyamLODIPine (Norvasc) 5 MG tablet Indications: Primary hypertension Take 1 tablet (5 mg) by mouth Daily 90 tablet 3 08/04/2024 Activeamylase 182993 unt / lipase 34769 unt / protease 25198 unt delayed release oral capsule (20 sources)Start: 98-78-0396seajprnkcofi, Ayg-Qgwc-Iwcz, (Creon) 41953-80023 units capsule Indications: Malignant neoplasm of prostate (HCC) , Exocrine pancreatic insufficiency (HCC) TAKE 1 CAPSULE IN THE MORNING, 1 CAPSULE AT NOON AND 1 CAPSULE IN THE EVENING WITH MEALS 360 capsule 2 07/03/2024 ActiveStart: 05-35-9765Knwwr 74510-91445 units capsule Indications: Malignant neoplasm of prostate (CMS/HCC) , Exocrine pancreatic insufficiency (CMS/HCC) TAKE 1 CAPSULE IN THE MORNING, 1 CAPSULE AT NOON AND 1 CAPSULE IN THE EVENING WITH MEALS 300 capsule 1 01/17/2024 ActiveStart: 78-52-2637ylibqpezosjd, Glz-Jxzu-Merm, (Creon) 54866-21388 units capsule Indications: Malignant neoplasm of prostate (CMS/HCC) , Exocrine pancreatic insufficiency (CMS/HCC) Take 1 capsule by mouth in the morning and 1 capsule at noon and 1 capsule in the evening. Take with meals. 270 capsule 1 05/12/2023 ActiveStart: 65-86-5598pkhk 1 capsule by mouth three times ygmrixwrvle-habbbnjc-giqneod (Creon) 24,000-76,000 -120,000 unit capsule Take 1 capsule by mouth 3 timesdaily (morning, midday, late afternoon). 11/17/2022 ActiveStart: 63-59-1174Yfuyo 41729-53984 UNIT 1 with each meal Orally daily for 30 days Oct, Activeapalutamide 60 mg oral tablet (2 sources)Start: 01-18-2024 End: 21-87-7333Pbvyxla 60 MG tablet 01/18/2024 09/04/2024 Discontinued (Therapy completed)ascorbic acid 500 mg oral capsule (15 sources)Vitamin Ctake 1 capsule by mouth once dailyascorbic acid, vitamin C, 500 mg capsule Take 1 capsule by mouth once daily. Activeatorvastatin 20 mg oral tablet (20 sources)HMG-CoA Reductase InhibitorStart: 60-19-1593bejo 10 mg by mouth once daily at bedtimeStart: 37-36-7036tjfllftmicpj (Lipitor) 20 MG tablet Indications: Mixed hyperlipidemia TAKE 1 TABLET AT NIGHT 90 tablet 3 01/06/2024 ActiveStart: 12-05-2021 End: 64-75-6513wyyw 1 tablet by mouth once daily at bedtimeAtorvastatin 10 mg Tablet Discontinued 10 MG PO Daily at bedtime December 05, 2021 12:00am November 14, 2024 1:57pmStart: 07-03-2020 End: 90-00-2450gtrl 0.5 tablet by mouth once dailyatorvastatin (Lipitor) 20 mg tablet Indications: Mixed hyperlipidemia Take 0.5 tablets (10 mg) by mouth once daily. 45 tablet 1 10/02/2024 10/02/2025 ActiveAtorvastatin Calcium 20 MG Oral for 90 Days ActiveBacillus coagulans / Inulin (1 source) End: 78-30-1257coju 1 capsule by mouth once dailyBACILLUS COAGULANS-INULIN ORAL Take 1 capsule by mouth once daily. 0 07/13/2023 Discontinued (Therapy completed)calcitriol 0.0005 mg oral capsule (20 sources)Vitamin D3 Analogtake 1 capsule by mouth once dailycalcitriol (Rocaltrol) 0.5 MCG capsule Take 0.5 mcg by mouth Daily Activecefuroxime 500 mg oral tablet (5 sources)Cephalosporin AntibacterialStart: 12-03-2024 End: 44-55-1414yfqm 1 tablet by mouth oncecefuroxime (Ceftin) 500 MG tablet Indications: Acute cystitis with hematuria Take 1 tablet (500 mg)by mouth every 12 (twelve) hours for 7 days 14 tablet 12/03/2024 12/10/2024 Active cholecalciferol 0.05 mg oral tablet (20 sources)Vitamin DStart: 73-16-5011tvdu 1 tablet by mouth once daily in the morningStart: 32-44-1557nwqn 1 tablet by mouth three times weeklyCholecalciferol (Vitamin D3) (Vitamin D3) 50 mcg (2,000 unit) Tablet Active 50 MCG PO 3 Times a week December 05, 2021 12:00amtake 1 capsule by mouth once dailycholecalciferol (Vitamin D-3) 25 MCG (1000 UT) capsule Take 1 capsule (25 mcg) by mouth once daily.ActivecloNIDine hydrochloride 0.1 mg oral tablet (20 sources)Central alpha-2 Adrenergic AgonistStart: 08-09-2024 End: 62-89-6567uplp 1 tablet by mouth once dailycloNIDine (Catapres) 0.1 mg tablet Indications: Primary hypertension Take 1 tablet (0.1 mg) by mouth once daily. 90 tablet 1 10/02/2024 10/02/2025 ActiveStart: 61-13-6948hzad 1 tablet by mouth twice daily as needed for hypertensioncloNIDine (Catapres) 0.1 MG tablet Indications: Primary hypertension , PAF (paroxysmal atrial fibrillation) (HCC) , Chest pain, unspecified type Take 1 tablet (0.1 mg) by mouth 2 (two) times a day asneeded for high blood pressure 180 tablet 1 05/22/2024 ActiveStart: 54-33-8572msub 1 tablet by mouth in the morningcloNIDine (Catapres) 0.1 MG tablet Indications: Primary hypertension (CMS/HCC) , PAF (paroxysmal atrial fibrillation) (CMS/HCC) , Chest pain, unspecified type Take 1 tablet (0.1 mg) by mouth in the morning and 1 tablet (0.1 mg) before bedtime. 180 tablet 1 05/10/2024 ActiveStart: 47-54-7094fuhn 1 tablet by mouth in the morningcloNIDine (Catapres) 0.1 MG tablet Indications: Primary hypertension (CMS/HCC) , PAF (paroxysmal atrial fibrillation) (CMS/HCC) , Chest pain, unspecified type Take 1 tablet (0.1 mg) by mouth in the morning and 1 tablet (0.1 mg) before bedtime. 180 tablet 1 05/10/2024 ActiveStart: 05-04-2024 End: 53-56-1878jofBGXdor (Catapres) 0.1 MG tablet Take 0.1 mg by mouth if needed 05/04/2024 05/10/2024 Discontinued (Reorder)1.7 ml denosumab 70 mg/ml injection (20 sources)RANK Ligand Inhibitorinject 120 mg by subcutaneous injection every three monthsdenosumab (Xgeva) 120 MG/1.7ML injection Inject 120 mg under the skin every 3 (three) months Activeinject 120 mg by subcutaneous injection every 30 daysdenosumab (Xgeva) 120 MG/1.7ML injection Inject 120 mg under the skin every 30 (thirty) days Activedicyclomine hydrochloride 20 mg oral tablet (20 sources)AnticholinergicStart: 68-55-5275clib 1 tablet by mouth four times daily as needed for paindicyclomine (Bentyl) 20 MG tablet Indications: Other irritable bowel syndrome Take 1 tablet (20 mg)by mouth 4 (four) times a day as needed (abdominal pain or cramps) 120 tablet 3 10/05/2024 ActiveStart: 11-13-2020 End: 37-99-5313bhyu 1 capsule by mouth once dailydicyclomine (Bentyl) 10 mg capsule Take 1 capsule (10 mg) by mouth once daily. 11/13/2020 01/13/2024 Discontinued (Therapy completed)fluorouracil 50 mg/ml topical cream (20 sources)Nucleoside Metabolic InhibitorStart: 73-03-9207xlboaxktmuyv (Efudex) 5 % cream Indications: Actinic keratosis Apply to directed areas on the face, and backs of hands twice a day x 14 days. Dispense 30 day supply but only use for 14 days 40 g 2 10/26/2024 ActiveStart: 82-55-8149banaioxyntmd (Efudex) 5 % cream Indications: Actinic keratosis Apply to affected areas bid x 14 days 40 g 1 04/26/2023 ActiveEfudex 5 % 1 application Externally Twice a day Active fluticasone propionate 0.05 mg/actuat metered dose nasal spray (20 sources)CorticosteroidStart: 44-19-8505Uysqp: 05-10-2024 End: 53-18-9862vggi 2 spray(s) nasal route once dailyfluticasone (Flonase) 50 MCG/ACT nasal spray Indications: Allergic sinusitis Administer 2 sprays into each nostril Daily Shake gently. Before first use, prime pump. After use, clean tip and replace cap. 16 g 5 05/10/2024 09/04/2024 Discontinued (Therapy completed)lisinopril 20 mg oral tablet (20 sources)Angiotensin Converting Enzyme InhibitorStart: 12-05-2021 End: 94-15-2400ioyy 1 tablet by mouth in the morninglisinopril 20 MG tablet Indications: Primary hypertension Take 1 tablet (20 mg) by mouth in the morning and 1 tablet (20 mg) before bedtime. 180 tablet 3 04/06/2024 ActiveStart: 02-11-2021 End: 54-79-6338hfhg 2 tablets by mouth once dailylisinopril 20 mg tablet Indications: Essential hypertension Take 2 tablets (40 mg) by mouth once daily. 180 tablet 1 05/01/2024 10/02/2024 Discontinued (Med List Cleanup)Start: 08-31-0829vsae 1 tablet by mouth in the morninglisinopril 20 MG tablet Indications: Primary hypertension (CMS/HCC) Take 1 tablet (20 mg) by mouth in the morning and 1 tablet (20 mg) before bedtime. 180 tablet 3 04/06/2024 Active magnesium oxide 400 mg oral tablet (20 sources)Start: 01-13-2024 End: 87-02-8248nmkh 1 tablet by mouth twice dailymagnesium oxide (Mag-Ox) 400 mg (241.3 mg magnesium) tablet Indications: Paroxysmal atrial fibrillation (Multi) Take 1 tablet (400 mg) by mouth 2 times a day. 180 tablet 3 01/13/2024 01/12/2025 ActiveStart: 01-11-2024 End: 45-85-7791pnmr 1 tablet by mouth once dailymagnesium oxide (Mag-Ox) 400 mg (241.3 mg magnesium) tablet Indications: Paroxysmal atrial fibrillation (Multi) Take 1 tablet (400 mg) by mouth once daily. 90 tablet 01/11/2024 01/13/2024 DiscontinuedmetFORMIN hydrochloride 500 mg oral tablet (20 sources)BiguanideStart: 41-66-1457gruBVFYCT (Glucophage) 500 MG tablet Indications: Type 2 diabetes mellitus with other specified complication, without long-term current use of insulin (HCC) TAKE 1 TABLET IN THE EVENING WITH A MEAL 90 tablet 3 09/22/2024 Ztketz85 hr metoprolol succinate 50 mg extended release oral tablet (20 sources)beta-Adrenergic BlockerStart: 10-02-2024 End: 63-10-3029upmw 1 tablet by mouth twice dailymetoprolol succinate XL (Toprol-XL) 50 mg 24 hr tablet Indications: Primary hypertension Take 1 tablet (50 mg) by mouth 2 times a day. Do not crush or chew. 180 tablet 1 10/02/2024 10/02/2025 ActiveStart: 01-13-2024 End: 22-00-3711nsdn 2 tablets by mouth once dailymetoprolol succinate XL (Toprol-XL) 50 mg 24 hr tablet Indications: Paroxysmal atrial fibrillation ( Multi) Take 2 tablets (100 mg) by mouth once daily. Do not crush or chew. 180 tablet 1 05/01/2024 10/02/2024 Discontinued (Dose adjustment)Start: 07-13-2023 take 1 tablet by mouth every twenty-four hours in the morningmetoprolol succinate XL (Toprol-XL) 50 MG 24 hr tablet Take 50 mg by mouth in the morning and 50 mgbefore bedtime. 07/13/2023 ActiveStart: 07-13-2023 End: 36-11-9833ruzv 1 tablet by mouth once dailymetoprolol succinate XL (Toprol- XL) 50 MG 24 hr tablet Take 50 mg by mouth Daily 07/13/2023 ActiveStart: 02-24-2021 End: 44-31-5242dfvl 1 tablet by mouth once daily in the morningMetoprolol Succinate 100 mg tablet extended release 24 hr Discontinued 100 MG PO Every morning 2021 12:00am November 14, 2024 1:54pmmirtazapine 15 mg oral tablet (20 sources)Start: 92-26-9287ejhymacccsz (Remeron) 15 MG tablet Indications: Current mild episode of major depressive disorder without prior episode TAKE 1 TABLET AT BEDTIME 90 tablet 3 01/18/2025 Activemupirocin 0.02 mg/mg topical ointment (3 sources)RNA Synthetase Inhibitor AntibacterialStart: 01-17-2025 End: 51-57-5055nkdwgeklf (Bactroban) 2 % ointment Indications: 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 09/22/2024 11/14/2024 DiscontinuedStart: 98-50-1801lbqe 1 tablet by mouth once daily predniSONE (Deltasone) 5 MG tablet Take 5 mg by mouth Daily 11/05/2023 Active Start: 11-05-2023 End: 20-61-2430whon 0.5 tablet by mouth once dailypredniSONE (Deltasone) 5 mg tablet Take 0.5 tablets (2.5 mg) by mouth once daily. 11/05/2023 05/01/2024 Discontinued (Therapy completed)rivaroxaban 20 mg oral tablet (20 sources)Factor Xa InhibitorStart: 03-05-2021 End: 31-68-7781blcd 1 tablet by mouth once dailyrivaroxaban (Xarelto) 20 mg tablet Indications: Paroxysmal atrial fibrillation (Multi) Take 1 tablet (20 mg) by mouth once daily. 90 tablet 1 10/02/2024 10/02/2025 Activevit A/vit C/vit E/zinc/copper (ICAPS AREDS ORAL) (12 sources) End: 48-68-8670oqb A/vit C/vit E/zinc/copper (ICAPS AREDS ORAL) Take 1 tablet by mouth see administration instructions. 01/09/2025 Discontinued (Therapy completed)vit A/vit C/vit E/zinc/copper (ICAPS AREDS ORAL) Take 1 tablet by mouth see administration instructions. Activevit A/vit C/vit E/zinc/copper (ICAPS AREDS ORAL) Take 1 tablet by mouth see administration instructions. 0 ActiveVit C,C-Aw-Gnutz-Lutein-Zeaxan (Preservision Areds-2) 250-90-40-1 mg Capsule (6 sources)Start: 49-11-2640Mug C,Q-Ll-Qbcgz-Lutein-Zeaxan (Preservision Areds- 2) 250-90-40-1 mg Capsule Active 1 TAB PO Every morning December 05, 2021 12:47pm Start: 13-34-1227Hugcn: 60-77-0886Ykw C,Q-Md-Ecfib-Lutein-Zeaxan (Preservision Areds-2) 250-90-40-1 mg Capsule Active 2 TAB PO Every morning December 05, 2021 12:00am Complies with drug therapyStart: 20-34-3155Jrb C,W-Vl-Bveuz-Lutein-Zeaxan (Preservision Areds-2) 250-90-40-1 mg Capsule Active 1 TAB PO Every morning December 05, 2021 12:00amvitamin b12 1 mg oral tablet (14 sources)Vitamin M96okvm 1 tablet by mouth once dailycyanocobalamin (Vitamin B-12) 1,000 mcg tablet Take 1 tablet (1,000 mcg) by mouth once daily. Active Completed/Discontinued Medications MedicationDrug Class(es)DatesSig (Normalized)Sig (Original)acetaminophen 325 mg / HYDROcodone bitartrate 5 mg oral tablet (5 sources)Opioid AgonistStart: 12-08-2021 End: 82-39-7071diwz 1 tablet by mouth every eight hours as needed for pain Hydrocodone-Acetaminophen 5-325 mg tablet Discontinued 1 TAB PO Q8H as needed for pain 14 December 08, 2021 December 24, 2022 11:27amascorbic acid 226 mg / beta carotene 23036 unt / cuprous oxide 0.8 mg / dl-alpha tocopheryl golwpdb735 unt / zinc oxide 34.8 mg oral capsule (3 sources)Vitamin CPreserVision AREDS Oral Capsule TAKE DIRECTED. Quantity: 0 Refills: 0 Ordered: 03-Jul-2021 DO Activecephalexin 500 mg oral capsule (11 sources)Cephalosporin AntibacterialStart: 12-08-2021 End: 36-43-8384nrha 1 capsule by mouth every eight hoursCephalexin 500 mg capsule Discontinued 500 MG PO Q8H 21 December 08, 2021 12:00am December 24, 2022 11:26amStart: 12-05-2021 End: 42-70-4668metl 1 capsule by mouth twice dailyCephalexin 500 mg Capsule Discontinued 500 MG PO Twice daily December 05, 2021 12:00am December 24, 2022 11:26amProbiotic CAPS (2 sources)Probiotic CAPS TAKE 1 CAPSULE Daily Quantity: 0 Refills: 0 Ordered: 03-Jul-2021 DO ActiveTc-99m tetrofosmin (Myoview) injection 10 millicurie (1 source)Start: 02-07-2024 End: millicurie, intravenous, Once in imaging, Starting on Wed02/07/24 at 0835, For 1 dose, Administer 45 to 90 minutes prior to imaging unless otherwise indicated.Tc-99m tetrofosmin (Myoview) injection 30 millicurie (1 source)Start: 02-07-2024 End: millicurie, intravenous, Once in imaging, Starting on Wed02/07/24 at 1009, For 1 dose, Administer 45 to 90 minutes prior to imaging unless otherwise indicated. Problems Active Problems Problem ClassificationProblemDateDocumented DateEpisodic/ChronicAbdominal pain (1 source)Left lower quadrant abdominal tenderness; Translations: [LLQ ABDOMINAL TENDERNESS]Onset: 14-20-9178RainrgijGyeqkd of prostate (20 sources)Malignant neoplasm of prostate; Translations: [Secondary malignant neoplasm of bone]Onset: 05-02-2015 Resolved: 74-55-6292XlvhmvwBhvznip dysrhythmias (20 sources)Paroxysmal atrial fibrillation; Translations: [Atrial fibrillation] Onset: 38-44-1617ZsmqkddVmyihsk kidney disease (20 sources)Chronic kidney disease stage 3A ; Translations: [Stage 3a chronic kidney disease]Onset: 654139-65-0510FgugyjwYyoflbd kidney disease (2 sources)Chronic kidney disease; Translations: [Chronic kidney disease, stage 3a (Multi)]Onset: 91-60-3414Hygqpjecwkqvj of surgical procedures or medical care (2 sources)Skin reaction to suture material; Translations: [Disruption of external operation (surgical) wound,not elsewhere classified, initial encounter] 64-99-7396KmucotpzDyxexxhegm and other anemia (1 source)Anemia, unspecified; Translations: [ANEMIA UNSPECIFIED]Onset: 55-07-8104ConbrlgpZffbwevs mellitus with complications (20 sources)Type 2 diabetes mellitus with other specified complication; Translations: [Type 2 diabetes mellitus]Onset: 85-81-3596BjdjjkkAnpotrhf mellitus without complication (20 sources)Diabetes mellitus; Translations: [Diabetes mellitus without mention of complication, type II or unspecified type, not stated as uncontrolled]Onset: 422808-49-8076OezwgfqHmwouigae of lipid metabolism (20 sources)Hyperlipidemia; Translations: [Other and unspecified hyperlipidemia] Onset: 534773-89-3861NefcvogPxjglhtxtbeeej and diverticulitis (20 sources)Diverticulosis of intestine, part unspecified, without perforation or abscess without bleeding; Translations: [Diverticular disease of colon]Onset: 54-57-0490TupadvtYdnddiday hypertension (20 sources)Benign essential hypertension; Translations: [Benign essential hypertension]Onset: 021821-41-6647CeafydiQduxsdlohuxpo symptoms and ill- defined conditions (2 sources)Dysuria; Translations: [Dysuria]94-99-4142DrvsbyhxYcrvvwioctsk with complications and secondary hypertension (20 sources)Benign hypertensive renal disease; Translations: [Hypertensive chronic kidney disease with stage 5 chronic kidney disease or end stage renal disease]Onset: 05-01-2024 Resolved: 472335-58-8835MmxnxwhPlclduhatlrpf mental health disorders (2 sources)Acute insomnia; Translations: [Adjustment insomnia]EpisodicMood disorders (20 sources)Major depressive disorder, single episode, unspecified; Translations: [Depression]Onset: 283607-35-1222AfnwceuDwwmxsggk of unspecified nature or uncertain behavior (6 sources)Neoplasm of skin; Translations: [Neoplasm of unspecified behavior of bone, soft tissue, and skin]01-44-2678VautdtngStxipksbcxk chest pain (2 sources)Chest pain; Translations: [Chest pain, unspecified]87-07-4365Qvgsvivo Other aftercare (6 sources)Drug therapy finding; Translations: [Long-term (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 of anticoagulants]EpisodicOther aftercare (4 sources)Removal of sutures done; Translations: [Encounter for removal of sutures]37-42-4989KgfyftrvRzoas gastrointestinal disorders (20 sources)Irritable bowel syndrome; Translations: [Irritable bowel syndrome without diarrhea]Onset: 402707-19-3289IpkjuehNfkur gastrointestinal disorders (1 source)Irritable bowel syndrome without diarrheaChronicOther gastrointestinal disorders (2 sources)Change in bowel habit; Translations: [CHANGE IN BOWEL HABIT]Onset: 16-38-5449CqrvmoqoWegqq gastrointestinal disorders (1 source)Other fecal abnormalities; Translations: [OTHER FECAL ABNORMALITIES] Onset: 93-34-6372KllbayrkHpvvh gastrointestinal disorders (2 sources)Altered bowel function; Translations: [Change in bowel habit]Episodic Other nervous system disorders (5 sources)Postoperative pain ; Translations: [Other acute postprocedural pain] 27-63-2751SapcgtxqFcyif nutritional; endocrine; and metabolic disorders (3 sources)Overweight; Translations: [Overweight]EpisodicOther skin disorders (2 sources)Seborrheic keratosis; Translations: [Other seborrheic keratosis] 21-48-1124UzfgrfykDsysw skin disorders (2 sources)Lentiginosis; Translations: [Other melanin hyperpigmentation] 53-93-1736DxqknwflUjkna skin disorders (4 sources)Actinic keratosis; Translations: [Actinic keratosis]10-26-2024 EpisodicOther upper respiratory disease (20 sources)Sinusitis; Translations: [Allergic rhinitis, unspecified]Onset: 524655-86-7506WkvawhdZcmpmfwy codes; unclassified (2 sources)Body mass index (BMI) 22.0-22.9, adult; Translations: [Body mass index (BMI) 22.0-22.9, adult]Onset: 45-25-3478KznhhrvwLwthurl tract infections (2 sources)Acute cystitis; Translations: [Acute cystitis with hematuria] 56-32-9731Tnoxobxn Past or Other Problems Problem ClassificationProblemDateDocumented DateEpisodic/Chronic Administrative/social admission (20 sources)Patient encounter status; Translations: [Person consulting for explanation of examination or test findings]Onset: 05-01-2024 Resolved: 415324-76-6834TwgndafvMsfyabxbog and other anemia (20 sources)Anemia; Translations: [Anemia, unspecified]Onset: 11-04-2016 74-84-3606XjggkleaAtxsd valve disorders (20 sources)Nonrheumatic mitral (valve) insufficiency; Translations: [Non- rheumatic mitral regurgitation ]Onset: 01-13-2024 Resolved: 51-39-2890TfdmwgrEudxq aftercare (3 sources)Other 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 manager (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; Translations: [OTH INTEGRATION SOLUTION ARCHITECT CURRENT DRUG THERAPY]Onset: 64-01-7143TxfddwfsNlpjw aftercare (20 sources)Long-term current use of anticoagulant; Translations: [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 project manager (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 of anticoagulants]Onset: 01-13-2024 Resolved: 982994-55-4346PuopvjqeCsrpv aftercare (20 sources)Taking high risk medication; Translations: [Other 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 manager (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]Onset: 01-13-2024 Resolved: 244031-37-2806YppynjxlOqdjt aftercare (20 sources)Treatment changed; Translations: [Other 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 manager (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]Onset: 10-02-2024 Resolved: [id number] aftercare (2 sources)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 project manager (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 of anticoagulants; Translations: [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 project manager (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 of anticoagulants]Onset: 62-21-4170UvetvhqzHrhvj non-epithelial cancer of skin (20 sources)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; Translations: [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]Onset: [id number] nutritional; endocrine; and metabolic disorders (20 sources)Fat pad syndrome; Translations: [Localized adiposity]Onset: 11-09-2024 Resolved: [id number] screening for suspected conditions (not mental disorders or infectious disease) (6 sources)Abnormal electrocardiogram [ECG] [EKG]; Translations: [Electrocardiogram abnormal]Onset: 64-49-7983TrfeabxyVzsgguuxlf disorders (not diabetes) (20 sources)Other specified diseases of pancreas; Translations: [Exocrine pancreatic insufficiency]Onset: 94-17-8987LakbvssfUlerdfjq codes; unclassified (20 sources)Body mass index 20-24 - normal; Translations: [Body Mass Index between 19-24, adult]Onset: 05-01-2024 Resolved: 111509-13-1340OqrugpnjQaopbzvj codes; unclassified (2 sources)Body mass index (BMI) 23.0-23.9, adult; Translations: [Body mass index (BMI) 23.0-23.9, adult]Onset: 28-18-4677NznnwcxaNefqhfyom and history of mental health and substance abuse codes (20 sources)Ex-smoker; Translations: [Personal history of nicotine dependence] Onset: 07-13-2023 Resolved: [id number]spgn (3 sources)Never smoked tobacco; Translations: [Never a smoker]Unclassified (12 sources)Onset: 07-13-2023 Resolved: Results Test NameValueInterpretationReference RangeFacilityALL CBC WITH AUTO DIFFon 39-77-6931XSNGWYMIK ABSOLUTE AUTO0.1NOMS [facility] HospitalBasophils/100 WBC (Bld)0.9 % 0.2 - 2.0 %[facility] ServicesEosinophils/100 WBC (Bld)4.8 %0.9 - 7.0 %[facility] ServicesErythrocyte distribution width (RBC) [Ratio]13.3 %11.0 - 15.0 %[facility] ServicesHematocrit (Bld) [Volume fraction]37 %Low42.0 - 54.0 %[facility] Hemoglobin (Bld) [Mass/Vol]12.2 g/dLLow14.0 - 18.0 g/dLHeartland Behavioral Health ServicesIMMATURE GRANULOCYTES ABS AUTO0.05HighNOSaint Mary's Hospital of Blue SpringsImmature granulocytes/100 WBC (Bld) 0.8 %High0.0 - 0.5 %[facility] ServicesInterpretation and review of laboratory resultsAbnormalNOSaint Mary's Hospital of Blue SpringsLYMPHOCYTES ABSOLUTE AUTO2.1NOMS [facility] Lymphocytes/100 WBC (Bld)32.4 %20.5 - 60.0 %The Rehabilitation InstituteH (RBC) [Entitic mass]30.7 pg25.9 - 34.0 pgNOSaint Luke's East HospitalHC (RBC) [Mass/Vol]33 g/dL29.9 - 35.2 g/dLThe Rehabilitation InstituteV (RBC) [Entitic vol]93.2 fL80.0 - 94.0 fLNOSaint Mary's Hospital of Blue Springs MONOCYTES ABSOLUTE AUTO0.5NOSaint Mary's Hospital of Blue SpringsMonocytes/100 WBC (Bld)7.7 %1.7 - 12.0 %[facility] ServicesNEUTROPHILS ABSOLUTE AUTO3.5NOMS HealthcareNeutrophils/100 WBC (Bld)53.4 %43.0 - 75.0 %NOMS HealthcarePlatelet mean volume (Bld) [Entitic vol] 10.2 fL9.5 - 13.5 fLNOMS HealthcareTBH EO #0.3NOMS HealthcareTBH [id number] [facility] HospitalTB RBC3.97LowNOMS [facility]opathic HospitalTB WBC6.5NOMS HealthcareCLINISYNCNOMS HealthcareNo Panel Informationon 48-59-3887Nzqolid obtained: written [place] Protocol: Procedure explained and questions answered to [...] fashion Prep type: chlorhexidine Biopsy accession number: [id number] Biopsy lab: [facility] Date of biopsy: 10/26/2024 Frozen [...] antibiotics given on the day of surgery?: NoNTheda[facility] PET psma subq tx sb-mton 73-62-7487QHP psma subq tx sb-[facility] Main [place] [address] [place] [address] Nuclear Medicine Report Signed Patient: Epifanio Alvarez MR#: [id number] 906 : 1940 Acct:[id number] Age/Sex: 84 / M ADM Date: 12/20/24 Loc: Room: Type: [facility] Attending Dr: Miller Donald MD Copies to: [...] Story M.D. 12/20/2024 2:08 PM Dictation Location: [place] [address] Transcribed By: [facility] 12/20/24 1408 Dictated By: Jordan Story II, MD 12/20/24 1401 Signed By: 12/20/24 1408[facility] Physician GroupNo Panel Informationon 82-27-6478MYEGDUPWWSNTL LVISOWZX0JAPQ HealthcareACINETOBACTER BAUMANIINot detectedNOMS HealthcareCANDIDA ALBICANS, PARAPSILOSIS, MSWNMWEDOR4BNBV HealthcareCANDIDA ALBICANS, PARAPSILOSIS, TROPICALISNot detectedNOMS Healthcare JARAD NNESEOKC1LBEJ HealthcareCANDIDA GLABRATANot detectedNOMS Healthcare JARAD RFJORX2IJLJ HealthcareCANDIDA KRUSEINot detectedNOMS Healthcare CITROBACTER CNZARNFI6DITM HealthcareCITROBACTER FREUNDIINot detectedNOMS HealthcareENTEROBACTER AEROGENES, HNIJEJS1UJSI HealthcareENTEROBACTER AEROGENES, CLOACAENot detectedNOMS HealthcareENTEROCOCCUS FAECALIS, NSQAYNV3DEIX Healthcare ENTEROCOCCUS FAECALIS, FAECIUMNot detectedNOMS HealthcareESCHERICHIA KFHB2ITMG HealthcareESCHERICHIA COLINot detectedNOMS HealthcareKLEBSIELLA PNEUMONIAE, BFXFGEV8THDZ HealthcareKLEBSIELLA PNEUMONIAE, OXYTOCANot detectedNOMS Healthcare MORGANELLA XFJHGKTA1KTJW HealthcareMORGANELLA MORGANIINot detectedNOMS HealthcarePROTEUS MIRABILIS, PEHILMCS0MDFJ HealthcarePROTEUS MIRABILIS, VULGARIS Not detectedNOMS HealthcarePSEUDOMONAS ZWYIXTBABG6XTCT HealthcarePSEUDOMONAS AERUGINOSANot detectedNOMS HealthcareSERRATIA JUJIZHKZCD9LNTY HealthcareSERRATIA MARCESCENSNot detectedNOMS HealthcareSTAPHYLOCOCCUS RKMXQZ7EUQS Healthcare STAPHYLOCOCCUS AUREUSNot detectedNOMS HealthcareSTAPHYLOCOCCUS EPIDERMIDIS, HAEMOLYTICUS, LUGDUNENSIS, SAPROPHYTICUS (QKSSW0TVFZ HealthcareSTAPHYLOCOCCUS EPIDERMIDIS, HAEMOLYTICUS, LUGDUNENSIS, SAPROPHYTICUS (URINANot detectedNOMS HealthcareSTREPTOCOCCUS AGALACTIAE (GROUP B STREP)0NOMS HealthcareSTREPTOCOCCUS AGALACTIAE (GROUP B STREP)Not detectedNOMS HealthcareSTREPTOCOCCUS PYOGENES (GROUP A STREP)0NOMS HealthcareSTREPTOCOCCUS PYOGENES (GROUP A STREP)Not detectedNOMS HealthcareNOMS HealthcareUrinalysis macro (dipstick) panel (U)on 61-13-8831Cjlntkkhs, UANegativeNegative - 4(70) +++ mg/dLNOMS HealthcareBlood, UAPositiveNegative - 50 Darrin/mcLNOMS HealthcareComment on above:3+Clarity, UA CloudyNOMS HealthcareColor, UAYellowNOMS HealthcareGlucose, UANegativeNegative - 2000(110) ++++ mg/dLPARK CITY HOSPITAL HealthcareInterpretation and review of laboratory resultsAbnormalNOMS HealthcareKetones, UANegativeNegative - 160(16) ++++ mg/dL [facility] HealthcareLeukocytes, UA2+Negative - 500+++ Treva/mcLNOMS HealthcareNitrite, UANegativeNegative - PositiveNOMS HealthcarepH, UA65 - 9NOMS HealthcareProtein, UANegativeNegative - 2000(20) ++++ mg/dLPARK CITY HOSPITAL HealthcareSpec Grav, UA1.011 - 1.03 NOMS HealthcareUrobilinogen, UA0.20.2 - 12 mg/dLMercy Hospital South, formerly [facility] Healthcare Capillary blood glucose measurement by glucometer (mass/volume)Ordered By: Juan Guzman on 51-64-5971Qgvyzrr [Mass/Vol]126 mg/dLClermont County HospitalComment on above:Random Glucose Reference Range is dependent on time and content of last meal. Glucose of more than 200 mg/dL in a nonstressed, ambulatory subject supports the diagnosis of Diabetes Mellitus.Result Comment: Random Glucose Reference Range is dependent on time and content of last meal. Glucose of more than 200 mg/dL in a nonstressed, ambulatory subject supports the diagnosis of Diabetes Mellitus. PERFORMED BY: [facility] [address] [place] [address] PATHOLOGIST TUBE MACHINE OPERATOR HELPER ROSS JOHNSTON M.D.Performed By: #### GLULS #### Point of Care testing ,GLUCOSE POCT GLUCOMETERSon 81-79-4973Ejedyyw [Mass/Vol]126 mg/dLHeartland Behavioral Health Services Comment on above:Random Glucose Reference Range is dependent on time and content of last meal. Glucose of more than 200 mg/dL in a nonstressed, ambulatory subject supports the diagnosis of Diabetes Mellitus. [facility] HobobeGlucose [Mass/Vol]143 mg/dLHeartland Behavioral Health ServicesComment on above:Random Glucose Reference Range is dependent on time and content of last meal. Glucose of more than 200 mg/dL in a nonstressed, ambulatory subject supports the diagnosis of Diabetes Mellitus. [facility] ServicesGlucose Poct Glucometerson 37-98-9585Puvkxbt [Mass/Vol]143 mg/dL NormalHendry Regional Medical Center Physician GroupComment on above:Result Comment: Random Glucose Reference Range is dependent on time and content of last meal. Glucose of more than 200 mg/dL in a nonstressed, ambulatory subject supports the diagnosis of Diabetes Mellitus. PERFORMED BY: [facility] [address] [place] [place] [address] PATHOLOGIST TUBE MACHINE OPERATOR HELPER ROSS JOHNSTON M.D.Performed By: #### GLULS #### Point of Care testing ,Joni 11-20-2024 Specimen: [id number] Received: 11/20/24 Status: DEONDRE Lewis Num: [id number] Spec Type: Surgical Subm Dr: Juan Guzman, Tissues: A Skin-Other than Cyst, tag, debridement or plastic repair (LEFT CHEEK) Procedures: HE/9, Gross/Micro L4, Frozen Section, FS HE/2 Age/ Patient Sex Location Account Attending Physician Epifanio Alvarez 84/M [place] [id number] Juan Guzman,DO SPEC NUM: [id number] RECD: 11/20/24 STATUS: DEONDRE MAC NUM: [id number] JARRET: 11/20/24 [facility] DR: Juan Guzman DO ENTERED: 11/20/24 ANSELMO JACKSON: RYAN TYPE: Surgical DEPT: S ORDERED: HE/9, [...] excision A4?A5: 6:00 half of the excision Specimen: [id number] Received: 11/20/24 Status: DEONDRE Lewis Num: [id number] Spec Type: Surgical Subm Dr: Juan Guzman,DO Tissues: A Skin-Other than Cyst, tag, debridement or plastic repair (LEFT CHEEK) Procedures: /Gita, Gross/Micro L4, Frozen Section, FS HE/2 Patient: Epifanio Alvarez [id number] (Continued) Specimen: [id number] Received: 11/20/24 (Continued) Gross Description (Continued) Signed (signature on file) Shayan Johnson Jr., 11/23/24 0928 Specimen: [id number] Received: 11/20/24 Status: DEONDRE Mac Num: [id number] Spec Type: Surgical Subm Dr: Juan Guzman DO Tissues: A Skin-Other than Cyst, tag, debridement or plastic repair (LEFT CHEEK) Procedures: Gita, Gross/Micro L4, Frozen Section, FS HE/2 Patient: Epifanio Alvarez [id number] (Continued) Specimen: [id number] Received: 11/20/24 (Continued) Gross Description (Continued) (5, entirely submitted, TW) Intraoperative Diagnosis FS dx: Cheek cyst. 6-9 (green) and 9-12 (red): shaved closest peripheral margins. Negative for malignancy. FX read by. Dr. Johnson 11/20/2024 1510. CPT Codes 10485, 41822 Specimen: [id number] Received: 11/20/24 Status: DEONDRE Lewis Num: [id number] Spec Type: Surgical Subm Dr: Juan Guzman DO Tissues: A Skin-Other than Cyst, tag, debridement or plastic repair (LEFT CHEEK) Procedures: /Gita, Gross/Micro L4, Frozen Section, FS HE/2 Patient: Epifanio Alvarez [id number] (Continued) (more content not included)... NormalThe [facility] Physician GroupECG 12 lead ECGon 36-58-6379BDR 12 lead ECG [facility] Main [address] [address] Electrocardiograph Report Signed Patient: Epifanio Alvarez MR#: [id number] 9[birth year] : 1940 Acct:[id number] Age/Sex: 84 / M ADM Date: 11/14/24 Loc: Room: Type: [facility] Attending Dr: Juan Guzman DO Ordering [...] change was found Confirmed by Pablo Haque ([id number]) on 11/15/2024 11:11:14 AM Referred By: Electronically Signed By: Pablo Haque Transcribed By: MUS Signed By Pablo Haque MD 11/15/[address] [place] [address] Physician GulsjNlY2v (Bld) [Mass fraction]on 96-38-4630EXWE HealthcareLaboratory - Hematology and Cell countson 11-14-2024 HbA1c (Bld) [Mass fraction]6.9 %[facility] ServicesALL CBC WITH AUTO DIFFon 75-54-1874WYUZISDNC ABSOLUTE AUTO0.1NOMS HealthcareBasophils/100 WBC (Bld)1 %0.2 - 2.0 %NOMS HealthcareEosinophils/100 WBC (Bld)4.3 %0.9 - 7.0 %[facility] Erythrocyte distribution width (RBC) [Ratio]13.9 %11.0 - 15.0 %[facility] Hematocrit (Bld) [Volume fraction]36 %Low42.0 - 54.0 %[facility] HealthcareHemoglobin (Bld) [Mass/Vol]12 g/dLLow14.0 - 18.0 g/dLNOMI HealthcareIMMATURE GRANULOCYTES ABS AUTO0.04HighNOMI HealthcareImmature granulocytes/100 WBC (Bld)0.6 %High0.0 - 0.5 %[facility] ServicesInterpretation and review of laboratory resultsAbnormalNOMI HealthcareLYMPHOCYTES ABSOLUTE PARV9JYDC HealthcareLymphocytes/100 WBC (Bld) 28.8 %20.5 - 60.0 %[facility] Health ServicesMCH (RBC) [Entitic mass]30.8 pg25.9 - 34.0 pg NOMSaint Joseph Hospital WestMCHC (RBC) [Mass/Vol]33.3 g/dL29.9 - 35.2 g/dLThe Rehabilitation InstituteV (RBC) [Entitic vol]92.3 fL80.0 - 94.0 fLHeartland Behavioral Health ServicesMONOCYTES ABSOLUTE AUTO 0.6NOMS HealthcareMonocytes/100 WBC (Bld)7.9 %1.7 - 12.0 %[facility] NEUTROPHILS ABSOLUTE AUTO4.1NOMS [facility] HospitalNeutrophils/100 WBC (Bld)57.4 %43.0 - 75.0 %[facility] Health ServicesPlatelet mean volume (Bld) [Entitic vol]10.5 fL9.5 - 13.5 fLNOSaint Mary's Hospital of Blue SpringsTBH EO #0.3NOMS [facility] HospitalTB [id number] [facility] RBC3.9 LowNOMS [facility] Osteopathic HospitalTB WBC7.1NOMS HealthcareCLINISYNCNPOST [facility] HealthcareALL CBC WITH AUTO DIFFon 41-69-7703JCNJOKOHR ABSOLUTE AUTO0.1NOMS HealthcareBasophils/100 WBC (Bld)1.1 %0.2 - 2.0 %NOM HealthcareEosinophils/100 WBC (Bld)4 %0.9 - 7.0 %[facility] Health ServicesErythrocyte distribution width (RBC) [Ratio]14.1 %11.0 - 15.0 %[facility] Health ServicesHematocrit (Bld) [Volume fraction]36.2 %Low42.0 - 54.0 %[facility] ServicesHemoglobin (Bld) [Mass/Vol]12.3 g/dLLow14.0 - 18.0 g/dLHeartland Behavioral Health Services IMMATURE GRANULOCYTES ABS AUTO0.06HighNOMI HealthcareImmature granulocytes/100 WBC (Bld)0.7 %High0.0 - 0.5 %[facility] ServicesInterpretation and review of laboratory resultsAbnormalNOSaint Mary's Hospital of Blue SpringsLYMPHOCYTES ABSOLUTE AUTO2.8NOSaint Mary's Hospital of Blue SpringsLymphocytes/100 WBC (Bld)31.2 %20.5 - 60.0 %[facility] Rehabilitation InstituteH (RBC) [Entitic mass]31.6 pg25.9 - 34.0 pgThe Rehabilitation InstituteHC (RBC) [Mass/Vol]34 g/dL 29.9 - 35.2 g/dLThe Rehabilitation InstituteV (RBC) [Entitic vol]93.1 fL80.0 - 94.0 fLHeartland Behavioral Health ServicesMONOCYTES ABSOLUTE AUTO0.6NOSaint Mary's Hospital of Blue SpringsMonocytes/100 WBC (Bld)7.1 % 1.7 - 12.0 %[facility] ServicesNEUTROPHILS ABSOLUTE AUTO5.1NOMS [facility] Neutrophils/100 WBC (Bld)55.9 %43.0 - 75.0 %[facility] Health ServicesPlatelet mean volume (Bld) [Entitic vol]10.5 fL9.5 - 13.5 fLHeartland Behavioral Health ServicesTB EO #0.4NOMS [facility] TB [id number] Francis Hospital & Health Services RBC3.89LowNOSaint Francis Hospital & Health Services WBC9.1NSt. Luke's Hospital CLINISYNCHeartland Behavioral Health ServicesNo Panel Informationon 46-35-9567QQQL HealthcareType of biopsy: tangential Informed consent: discussed and [...] Photo taken Amount of lidocaine used: 2.0 [facility] tangential Informed consent: discussed and [...] Photo taken Amount of lidocaine used: 1.0 [facility]Type of biopsy: tangential Informed consent: discussed and [...] Photo taken Amount of lidocaine used: 3.0 [facility] Panel Informationon 82-80-0101Kmyadb length (cm): 1.2 Lesion width (cm): 1.1 [...] used: 9.0 ml Estimated blood loss: 1.0 mlNOMS [facility] Osteopathic HospitalComplexity: Intermediate Final length (cm): 5.3 Reason for [...] infection, uncontrollable bleeding, or complications. Dressing type: Advanced Cooling TherapyNo Panel InformationOrdered By: Danielle Leblanc on 10-55-9314EJVV Hobobe Work Phone: ALL CBC WITH AUTO DIFFon 66-90-7265PYRHVXSBL ABSOLUTE AUTO0.1NOMS HealthcareBasophils/100 WBC (Bld)1.1 %0.2 - 2.0 %[facility] Eosinophils/100 WBC (Bld)5 %0.9 - 7.0 %[facility] Health ServicesErythrocyte distribution width (RBC) [Ratio]13.2 %11.0 - 15.0 %[facility] Health ServicesHematocrit (Bld) [Volume fraction]37.9 %Low42.0 - 54.0 %[facility] Health ServicesHemoglobin (Bld) [Mass/Vol]12.4 g/dLLow14.0 - 18.0 g/dLHeartland Behavioral Health ServicesIMMATURE GRANULOCYTES ABS AUTO0.04HighNOSaint Mary's Hospital of Blue SpringsImmature granulocytes/100 WBC (Bld)0.5 %0.0 - 0.5 %[facility] Interpretation and review of laboratory resultsAbnormalNOSaint Mary's Hospital of [facility] LYMPHOCYTES ABSOLUTE AUTO2.3NOSaint Mary's Hospital of Blue SpringsLymphocytes/100 WBC (Bld)30.7 %20.5 - 60.0 %The Rehabilitation InstituteH (RBC) [Entitic mass]30.5 pg25.9 - 34.0 pgThe Rehabilitation InstituteHC (RBC) [Mass/Vol]32.7 g/dL29.9 - 35.2 g/dLHeartland Behavioral Health ServicesMCV (RBC) [Entitic vol]93.3 fL80.0 - 94.0 fLHeartland Behavioral Health ServicesMONOCYTES ABSOLUTE AUTO0.5NOMS HealthcareMonocytes/100 WBC (Bld)5.9 %1.7 - 12.0 %[facility] ServicesNEUTROPHILS ABSOLUTE AUTO4.3NOSaint Mary's Hospital of Blue SpringsNeutrophils/100 WBC (Bld)56.8 %43.0 - 75.0 %[facility] Health ServicesPlatelet mean volume (Bld) [Entitic vol]9.8 fL9.5 - 13.5 fLHeartland Behavioral Health ServicesTBH EO #0.4NOMS [facility] [id number] [facility] RBC4.06LowNOSaint Francis Hospital & Health Services WBC7.6NOSaint Mary's Hospital of Blue SpringsCLINISYNCNOMS [facility] Osteopathic HospitalGlucose Glucometer (BldC) [Mass/Vol]Ordered By: Colin Thompson on 36-24-0805Nipmuif [Mass/Vol] Capillary blood glucose measurement by glucometer (mass/volume)[facility]. Elizabeth HospitalComment on above:Random Glucose Reference Range is dependent on time and content of last meal. Glucose of more than 200 mg/dL in a nonstressed, ambulatory subject supports the diagnosis of Diabetes Mellitus. Glucose Poct Glucometerson 71-19-4114Rpcimba7Nny7: Cleaned MeterNoSelect Specialty Hospital - Winston-Salem Physician GroupComment on above:Result Comment: PERFORMED BY: [facility] [address] [place] [address] PATHOLOGIST TUBE MACHINE OPERATOR HELPER JOSE DOWNEY M.D.Performed By: #### GLULS #### Point of Care testing ,Glucose [Mass/Vol]216 mg/dLSarasota Memorial Hospital Physician GroupComment on above: Result Comment: Random Glucose Reference Range is dependent on time and content of last meal. Glucose of more than 200 mg/dL in a nonstressed, ambulatory subject supports the diagnosis of Diabetes Mellitus.Performed By: #### GLULS #### Point of Care testing ,Joni 08-09-2024 Specimen: [id number] Received: 08/09/24 Status: DEONDRE Lewis Num: [id number] Spec Type: Surgical Subm Dr: Colin Thompson MD Tissues: A Skin-Other than Cyst, tag, debridement or plastic repair (R LOWER LEG) Procedures: HEATHER/Angel, Gross/Micro L4 Age/ Patient Sex Location Account Attending Physician Epifanio Alvarez 84/M [place] [id number] Colin Thompson MD SPEC NUM: [id number] RECD: 08/09/24 STATUS: DEONDRE GARNERLiss NUM: [id number] JARRET: 08/09/24- SUBM DR: Colin Thompson MD ENTERED: 08/09/24 [facility] DR: RYAN TYPE: Surgical DEPT: S ENTERED BY: [id number] RECV BY: [id number] ORDERED: Angel, Gross/Micro L4 ORDERED: , Gross/Micro L4 Pathological [...] and 0.6 cm from the 6?9?12:00 margin. Specimen: [id number] Received: 08/09/24 Status: DEONDRE Lewis Num: [id number] Spec Type: Surgical Subm Dr: Colin Thompson MD Tissues: A Skin-Other than Cyst, tag, debridement or plastic repair (R LOWER LEG) Procedures: Lizett HERNANDEZ/Saurabh L4 Patient: Epifanio Alvarez [id number] (Continued) Specimen: [id number] Received: 08/09/24 (Continued) Gross Description (Continued) Signed (signature on file) Sohail Urbina MD 08/10/24 1527 Specimen: [id number] Received: 08/09/24 Status: DEONDRE Lewis Num: [id number] Spec Type: Surgical Subm Dr: Colin Thompson MD Tissues: A Skin-Other than Cyst, tag, debridement or plastic repair (R LOWER LEG) Procedures: Angel Gross/Micro L4 Patient: Epifanio Alvarez [id number] (Continued) Specimen: [id number] Received: 08/09/24 (Continued) Gross Description (Continued) The specimen is inked as follows: 12?3:00-Yellow 3?6:00-Green 6?9:00-[place] 9?12:00-Blue Deep-Black Serial sections reveal yellow-leonardo, glistening [...] serially sectioned 6:00 polar end (8, ns, [id number] A) Microscopic Description Microscopic examination is performed CPT Codes 63497 Specimen: [id number] Re (more content not included)...NormalHendry Regional Medical Center Physician GroupNo Panel InformationOrdered By: Colin Thompson on 08-09-2024 Bedside Glucose CommentGlu2: cleaned [facility] HospitalNo Panel Informationon 39-83-7428Kzqhfk length (cm): 1.1 Lesion width (cm): 1.1 [...] Additional details: Amount of lidocaine used: 2.0 [facility]No [facility] Informationon 59-77-6505Tlve of biopsy: tangential Informed consent: discussed and [...] Photo taken Amount of lidocaine used: 1.0 [facility]Type of biopsy: tangential Informed consent: discussed and [...] Photo taken Amount of lidocaine used: 2.0 [facility]Type of biopsy: tangential Informed consent: discussed and [...] Photo taken Amount of lidocaine used: 1.0 [facility] CMP (CMP) (FOR [facility] USE)on 67-13-5059Mvclzqu [Mass/Vol]3.6 g/dL3.4 - 5.0 g/dLNOMI HealthcareALBUMIN GLOBULIN RATIO1.2NOMS HealthcareALP [Catalytic activity/Vol]48 U/L46 - 116 U/LNOMS HealthcareALT [Catalytic activity/Vol]16 U/L16 - 63 U/LNOMS HealthcareAnion gap [Moles/Vol]11 mmol/LNOMS HealthcareAST [Catalytic activity/Vol]19 U/L15 - 37 U/LNOMS HealthcareBilirubin [Mass/Vol]0.6 mg/dL0.2 - 1.0 mg/dLNOMS HealthcareCalcium [Mass/Vol]8.8 mg/dL8.5 - 10.1 mg/dLNOMS HealthcareChloride [Moles/Vol]106 mmol/L98 - 107 mmol/LNOMS HealthcareCO2 [Moles/Vol]30 mmol/L21.0 - 32.0 mmol/LNOMS HealthcareCreatinine [Mass/Vol]1.27 mg/dL0.70 - 1.30 mg/dLNOMI HealthcareGFR/1.73 sq M.predicted CKD-EPI (S/P/Bld) [Vol rate/Area]>60>=60 mL/min/1.73m 2NOMS HealthcareGlobulin (S) [Mass/Vol]3.1 g/dLNOMI HealthcareGlucose [Mass/Vol]167 mg/zKRzgm33 - 106 mg/dLNOMI Healthcare Interpretation and review of laboratory resultsAbnormalNOMS HealthcarePotassium [Moles/Vol]4 mmol/L3.5 - 5.1 mmol/LNOMS HealthcareProtein [Mass/Vol]6.7 g/dL6.4 - 8.2 g/dLNOMI HealthcareSodium [Moles/Vol]143 mmol/L136 - 145 mmol/LNOMS HealthcareTBH EGFR-NON AF GMCMIEJJ51Zdb>=60 mL/min/1.73m 2NOMS HealthcareUrea nitrogen [Mass/Vol]24 mg/dLHigh7.0 - 18.0 mg/dLNOMI HealthcareUrea nitrogen/Creatinine [Mass ratio]18.9 mg/mgNOMI HealthcareCLINISYNCNSt. Luke's HospitalNo Panel Informationon 79-68-6532Erkdtyhbwl: Intermediate Final length (cm): 4 Reason for [...] infection, uncontrollable bleeding, or complications. Dressing type: bandageNThedaCare Medical Center - Wild RoseLesion length (cm): 1.2 Lesion width (cm): 1 [...] used: 9.0 ml Estimated blood loss: <1.0 mlNOMS KwnymtpohxXcR1k (Bld) [Mass fraction]on 92-30-6270NJFCHeartland Behavioral Health ServicesLaboratory - Hematology and Cell countson 05-10-2024 HbA1c (Bld) [Mass fraction]7.6 %[facility] ServicesALL CBC WITH AUTO DIFFon 11-28-8458MHJKRVJTU ABSOLUTE AUTO0.1NOMS [facility] HospitalBasophils/100 WBC (Bld)1.2 % 0.2 - 2.0 %[facility] Health ServicesEosinophils/100 WBC (Bld)4.3 %0.9 - 7.0 %[facility] Health ServicesErythrocyte distribution width (RBC) [Ratio]13 %11.0 - 15.0 %[facility] Health ServicesHematocrit (Bld) [Volume fraction]38.4 %Low42.0 - 54.0 %[facility] Health ServicesHemoglobin (Bld) [Mass/Vol]12.4 g/dLLow14.0 - 18.0 g/dLHeartland Behavioral Health Services IMMATURE GRANULOCYTES ABS AUTO0.03NOSaint Mary's Hospital of Blue SpringsImmature granulocytes/100 WBC (Bld)0.5 %0.0 - 0.5 %[facility] ServicesInterpretation and review of laboratory resultsAbnormalHeartland Behavioral Health ServicesLYMPHOCYTES ABSOLUTE AUTO2.1NOMS [facility] Lymphocytes/100 WBC (Bld)32.7 %20.5 - 60.0 %The Rehabilitation InstituteH (RBC) [Entitic mass]30.1 pg25.9 - 34.0 pgThe Rehabilitation InstituteHC (RBC) [Mass/Vol]32.3 g/dL29.9 - 35.2 g/dLThe Rehabilitation InstituteV (RBC) [Entitic vol]93.2 fL80.0 - 94.0 fLHeartland Behavioral Health ServicesMONOCYTES ABSOLUTE AUTO0.5NOSaint Mary's Hospital of Blue SpringsMonocytes/100 WBC (Bld)7 %1.7 - 12.0 %[facility] ServicesNEUTROPHILS ABSOLUTE AUTO3.5NOMS [facility] Neutrophils/100 WBC (Bld)54.3 %43.0 - 75.0 %[facility] ServicesPlatelet mean volume (Bld) [Entitic vol]10.4 fL9.5 - 13.5 fLHeartland Behavioral Health ServicesTBH EO #0.3NOMS [facility] CAM692RQDHSaint Francis Hospital & Health Services RBC4.12LowNOMS [facility] WBC6.5NOSaint [facility]YNCP[facility] HealthcareALL CBC WITH AUTO DIFFon 18-29-8655ZARIKIACP ABSOLUTE AUTO0.1NOMS [facility] HospitalBasophils/100 WBC (Bld)1.2 %0.2 - 2.0 %[facility] Eosinophils/100 WBC (Bld)5.3 %0.9 - 7.0 %[facility] ServicesErythrocyte distribution width (RBC) [Ratio]13.1 %11.0 - 15.0 %[facility] ServicesHematocrit (Bld) [Volume fraction]38.3 %Low42.0 - 54.0 %[facility] ServicesHemoglobin (Bld) [Mass/Vol]12.6 g/dLLow14.0 - 18.0 g/dLHeartland Behavioral Health ServicesIMMATURE GRANULOCYTES ABS AUTO0.04HighHeartland Behavioral Health ServicesImmature granulocytes/100 WBC (Bld)0.5 %0.0 - 0.5 %[facility] Interpretation and review of laboratory resultsAbnormalHeartland Behavioral Health Services LYMPHOCYTES ABSOLUTE AUTO2.2NOMS [facility] HospitalLymphocytes/100 WBC (Bld)27.3 %20.5 - 60.0 %The Rehabilitation InstituteH (RBC) [Entitic mass]30.7 pg25.9 - 34.0 pgThe Rehabilitation InstituteHC (RBC) [Mass/Vol]32.9 g/dL29.9 - 35.2 g/dLThe Rehabilitation InstituteV (RBC) [Entitic vol]93.2 fL80.0 - 94.0 fLHeartland Behavioral Health ServicesMONOCYTES ABSOLUTE AUTO0.6NOMI HealthcareMonocytes/100 WBC (Bld)7.3 %1.7 - 12.0 %[facility] ServicesNEUTROPHILS ABSOLUTE AUTO4.8NOSaint Mary's Hospital of Blue SpringsNeutrophils/100 WBC (Bld)58.4 %43.0 - 75.0 %[facility] ServicesPlatelet mean volume (Bld) [Entitic vol]10.6 fL9.5 - 13.5 fLHeartland Behavioral Health ServicesTBH EO #0.4NOMS [facility] HospitalTB KFJ005ZDRUSaint Mary's Hospital of Blue SpringsTB RBC4.11LowNOSaint Mary's Hospital of Blue SpringsTB WBC8.1NOMS HealthcareCLINISYNCNSt. Luke's HospitalTRANSTHORACIC ECHO (TTE) COMPLETEon 67-86-6934ICGWKEUXICQME ECHO (TTE) [address], [address] [place] [address] TRANSTHORACIC ECHOCARDIOGRAM REPORT Patient Name: EPIFANIO Kim Physician: [id number] Marina Goldsmith MD Study Date: 02/21/2024 Ordering Provider: [id number] MISSY KHOURY MRN/PID: [id number] Fellow: Nurse: Date of /Age: 1 1940 / 83 years [employer]ement [employer]: Jyoti Gutiérrez RDCS, RVT Gender: M Additional Staff: Height: 180.34 cm Admit Date: Weight: 77.11 kg Admission Status: BSA / BMI: 1.97 m2 / 23.71 kg/m2 Department Location: [facility] Blood Pressure: 142 /84 mmHg Study Type: TRANSTHORACIC ECHO (TTE) COMPLETE Diagnosis/ICD: 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; Paroxysmal atrial fibrillation-I48.0 Indication: Diabetes, HTN, Hyperlipidemia, Murmur, Former Smoker, Prostate Cancer with Metastases, CKD-Stage III CPT Codes: Echo Complete w Full Doppler-67792 Study Detail: The following Echo studies were performed: 2D, M-Mode, Doppler and color flow. PHYSICIAN INTERPRETATION: Left Ventricle: The left ventricular systolic function is normal, with a visually estimated ejection fraction of 60%. There are no regional wall motion abnormalities. The left ventricular cavity sizeis normal. Spectral Doppler shows an impaired relaxation [...] normal. There is no indication of pulmonic valveregurgitation. Pericardium: No pericardial effusion noted. Aorta: The aortic root is normal. Pulmonary Artery: The Doppler estimated pulmonary artery diastolic pressure is 20.3 mmHg. CONCLUSIONS: 1. The left ventricular systolic function is normal, with a visually estimated ejection fraction of60%. 2. Spectral Doppler shows an impaired relaxation [...] mmHg PIEDV: 2.08 m/s PADP: 20.3 mmHg [id number] Marina Goldsmith MD Electronically signed on 02/21/2024 at 2:06:09 PM Final [facility] HospitalUS Heart TransthoracicOrdered By: Marina Goldsmith on 36-48-1949Txhcdl Valve Area by Continuity of Peak Velocity4.33 db3PtywefzlwkVan Wert [facility] Hospital Work Phone: Aortic Valve Area by Continuity of VTI3.61 cm2 [facility] Work Phone: [phone] mn grad2.0mmHgVan [facility] Work Phone: [phone] pk grad4.8mmHgVan [facility]ert [facility] Work Phone: [phone] pk vel1.10 m/[facility] Work Phone: [phone] A4C EF68.1[facility] Work Phone: [phone] EF60 %[facility] Work Phone: [phone] [facility] Work Phone: [phone] diam2.60 [facility] Work Phone: [phone] avg E/e' ratio6.90UnCleveland Clinic Work Phone: [phone] E/A ratio0.58[facility] Work Phone: [phone]-Patterson [facility] Work Phone: [phone] Work Phone: [phone] Heart Transthoracicon 02-21-2024 [facility] [address], [address], [place] [address] TRANSTHORACIC ECHOCARDIOGRAM REPORT Patient Name: EPIFANIO ALVAREZ Judy Physician: [id number] Marina Goldsmith MD Study Date: 02/21/2024 Ordering Provider: [id number] MISSYMICHELLE JOHNSONAN MRN/PID: [id number] Fellow: Nurse: Date of /Age: 1 1940 / 83 years [employer]: Jyoti Gutiérrez RDCS, RVT Gender: M Additional Staff: Height: 180.34 cm Admit Date: Weight: 77.11 kg Admission Status: BSA / BMI: 1.97 m2 / 23.71 kg/m2 Department Location: [facility] Blood Pressure: 142 /84 mmHg Study Type: TRANSTHORACIC ECHO (TTE) COMPLETE Diagnosis/ICD: 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; Paroxysmal atrial fibrillation-I48.0 Indication: Diabetes, HTN, Hyperlipidemia, Murmur, Former Smoker, Prostate Cancer with Metastases, CKD-Stage III CPT Codes: Echo Complete w Full Doppler-77617 Study Detail: The following Echo studies were performed: 2D, M-Mode, Doppler and color flow. PHYSICIAN INTERPRETATION: Left Ventricle: The left ventricular systolic function is normal, with a visually estimated ejection fraction of 60%. There are no regional wall motion abnormalities. The left ventricular cavity sizeis normal. Spectral Doppler shows an impaired relaxation [...] normal. There is no indication of pulmonic valveregurgitation. Pericardium: No pericardial effusion noted. Aorta: The aortic root is normal. Pulmonary Artery: The Doppler estimated pulmonary artery diastolic pressure is 20.3 mmHg. CONCLUSIONS: 1. The left ventricular systolic function is normal, with a visually estimated ejection fraction of60%. 2. Spectral Doppler shows an impaired relaxation [...] LVOT VTI: 17.00 c (more content not included)...Marina Goode MD - 02/21/[address], [address], [place] [address] TRANSTHORACIC ECHOCARDIOGRAM REPORT Patient Name: EPIFANIO ALVAREZ Judy Physician: [id number] Marina Goldsmith MD Study Date: 02/21/2024 Ordering Provider: [id number] MISSY KHOURY MRN/PID: [id number] Fellow: Nurse: Date of /Age: 1 1940 / 83 years [employer]: Jyoti Gutiérrez RDCS, Brendon Gender: M Additional Staff: Height: 180.34 cm Admit Date: Weight: 77.11 kg Admission Status: BSA / BMI: 1.97 m2 / 23.71 kg/m2 Department Location: [facility] Blood Pressure: 142 /84 mmHg Study Type: TRANSTHORACIC ECHO (TTE) COMPLETE Diagnosis/ICD: 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; Paroxysmal atrial fibrillation-I48.0 Indication: Diabetes, HTN, Hyperlipidemia, Murmur, Former Smoker, Prostate Cancer with Metastases, CKD-Stage III CPT Codes: Echo Complete w Full Doppler-39584 Study Detail: The following Echo studies were performed: 2D, M-Mode, Doppler and color flow. PHYSICIAN INTERPRETATION: Left Ventricle: The left ventricular systolic function is normal, with a visually estimated ejection fraction of 60%. There are no regional wall motion abnormalities. The left ventricular cavity sizeis normal. Spectral Doppler shows an impaired relaxation [...] normal. There is no indication of pulmonic valveregurgitation. Pericardium: No pericardial effusion noted. Aorta: The aortic root is normal. Pulmonary Artery: The Doppler estimated pulmonary artery diastolic pressure is 20.3 mmHg. CONCLUSIONS: 1. The left ventricular systolic function is normal, with a visually estimated ejection fraction of60%. 2. Spectral Doppler shows an impaired relaxation [...] mmHg PIEDV: 2.08 m/s PADP: 20.3 mmHg [id number] Marina Goldsmith MD Electronically signed on 02/21/2024 at 2:06:09 PM Final [facility] Work Phone: nm Heart Perfusion W stress and W radionuclide Aaron 31-82-5439Lkcdtu exercise Myoview cardiac perfusion stress test. No evidence of ischemia or myocardial infarction by perfusion imaging. Normal left ventricular systolic function, ejection fraction 67%. No exercise provoked significant ischemic ECG changes or chest pain symptoms. When compared to a study from 2009, no significant interval changes are seen. Signed by: Clarissa Sanchez 02/07/2024 4:47 PM Dictation workstation: [id number] By: Clarissa Sanchez and Miller Elaine STUDY: MYOCARDIAL PERFUSION STRESS TEST WITH EXERCISE Performing facility: [facility], [address] [place] [address], [address], [address] Provider: [facility] PCP: Dr. Trang Bello Supervising provider: Marina Goldsmith MD INDICATION: Abnormal EKG; PVC Murmur HISTORY: Gender: M; Age: 83 y/o ; Height: HT 180.3 cm cm; Weight: WT 77.111 kg kg. Abnormal EKG; High Cholesterol; Diabetes; HTN; Arrhythmias; A-fib Quit smoking 34 years ago. COMPARISON: Previous nuclear testing completed [id number] at [facility]. ACCESSION NUMBER(S): [id number] ORDERING CLINICIAN: MISSY KHOURY TECHNIQUE: ONE DAY [...] There was no evidence of attenuation artifact. MMODALClarissa Sanchez MD - 02/07/2024 Interpreted By: Clarissa Sanchez and Giannuzzi Michael STUDY: MYOCARDIAL PERFUSION STRESS TEST WITH EXERCISE Performing facility: [facility], [address] [place] [address], [address], [address] Provider: Missy Khoury MD, [facility] PCP: Dr. Trang Bello Supervising provider: Marina Goldsmith MD INDICATION: Abnormal EKG; PVC Murmur HISTORY: Gender: M; Age: 83 y/o ; Height: HT 180.3 cm cm; Weight: WT 77.111 kg kg. Abnormal EKG; High Cholesterol; Diabetes; HTN; Arrhythmias; A-fib Quit smoking 34 years ago. COMPARISON: Previous nuclear testing completed at [facility]. ACCESSION NUMBER(S): [id number] ORDERING CLINICIAN: MISSY KHOURY TECHNIQUE: ONE DAY [...] Clarissa Sanchez 02/07/2024 4:47 PM Dictation workstation: [id number] [facility] Work Phone: Radiology Study observation (narrative)[facility] Work Phone: nm Heart Perfusion W stress and W radionuclide IV Ordered By: Clarissa Sanchez on 64-79-7169VjrhgkryyhCleveland Clinic Work Phone: NUCLEAR STRESS TESTon 52-53-7500XCGCDPJ STRESS TEST Interpreted By: Clarissa Sanchez, Lora Elaine STUDY: MYOCARDIAL PERFUSION STRESS TEST WITH EXERCISE Performing facility: [facility], [address] [place] [address], [address], [address] Provider: Missy Khoury MD, FACC PCP: Dr. Trang Bello Supervising provider: Marina Goldsmith MD INDICATION: Abnormal EKG; PVC Murmur HISTORY: Gender: M; Age: 83 y/o ; Height: HT 180.3 cm cm; Weight: WT 77.111 kg kg. Abnormal EKG; High Cholesterol; Diabetes; HTN; Arrhythmias; A-fib Quit smoking 34 years ago. COMPARISON: Previous nuclear testing completed [id number] at [facility]. ACCESSION NUMBER(S): [id number] ORDERING CLINICIAN: MISSY KHOURY TECHNIQUE: ONE DAY [...] Clarissa Sanchez 02/07/2024 4:47 PM Dictation workstation: [id number] [facility] Regional Hospital Comment on above:Order Comment: Start with exercise, may switch to lexiALL BASIC METABOLIC PANELon 61-02-6590Kinfn gap [Moles/Vol]11.7 mmol/LNOMS Healthcare Calcium [Mass/Vol]8.3 mg/dLLow8.5 - 10.1 mg/dLNOMI HealthcareChloride [Moles/Vol]107 mmol/L98 - 107 mmol/LNOMS HealthcareCO2 [Moles/Vol]28.3 mmol/L 21.0 - 32.0 mmol/LNOMS HealthcareCreatinine [Mass/Vol]1.11 mg/dL0.70 - 1.30 mg/dLNOMI HealthcareGFR/1.73 sq M.predicted CKD-EPI (S/P/Bld) [Vol rate/Area]>60 60 - PINFNOMS HealthcareGlucose [Mass/Vol]164 mg/wHNuxw65 - 106 mg/dLNOMI HealthcareInterpretation and review of laboratory resultsAbnormalNOMI Healthcare Potassium [Moles/Vol]4.0 mmol/L3.5 - 5.1 mmol/LNOMS HealthcareSodium [Moles/Vol] 143 mmol/L136 - 145 mmol/LNOMS HealthcareTBH EGFR-NON AF ARMENIAN>6060 - PINF NOMS HealthcareUrea nitrogen [Mass/Vol]16.0 mg/dL7.0 - 18.0 mg/dLNOMS Healthcare Urea nitrogen/Creatinine [Mass ratio]14.4 mg/mgNOMS HealthcareCLINISYNCNOMS HealthcareECG 12 [place] 77-12-1190Pjxex rhythm with frequent PVCs Otherwise normal EKG QTc 444 [facility] Work Phone: c reactive protein [Mass/volume] in Serum or Plasma Ordered By: Jj Garcia on 92-39-3165PZO [Mass/Vol]< 0.5 mg/dL0.0-0.5FACMC Healthcare System GlenbeighCreatinine [Mass/volume] in Serum or PlasmaOrdered By: Nirav Bello on 57-64-4166Qjjdqqajgv [Mass/Vol]1.55 mg/dL0.70-1.30[facility]. [facility] HospitalErythrocyte sedimentation rate by Photometric method Ordered By: Jj Garcia on 06-19-9312BHG Photometric method (Bld) [Velocity]18 mm/hr0-19St. [facility] HospitalNo Panel InformationOrdered By: Nirav Bello on 76-92-4536Kasxpanhy GFR (CKD-EPI)43.863 mL/MinSt. Elizabeth HospitalPharmacy Creatinine Clearance (ChemN/[facility] Medical CenterThyrotropin [Units/volume] in Serum or PlasmaOrdered By: Jj Garcia on 53-49-6770EDF Qn1.23 m[IU]/L0.45-5.33[facility] Urea nitrogen [Mass/volume] in Serum or PlasmaOrdered By: Nirav Bello on 69-68-6966Annk nitrogen [Mass/Vol]31 mg/dL7-[facility] PANCREATIC ELASTASE FECALon 09-12-7943Ekyrqtdqqz Elastase, Fecal86 ug Elast./g Critically low>200[facility] Soin Medical CenterComment on above:Result Comment: Results verified by repeat testing Severe Pancreatic Insufficiency: <100 Moderate Pancreatic Insufficiency: 100 - 200 Normal: >200Performed By: #### LIPID, TSH, CMP #### [facility] [address] [place] [address] [address] Leesa SheltonIAC ANTIBODIES PROFILEon 66-03-7493Fjuhvfkfah Gliadin Abs, IgA 8 unitsNormal0-19[facility] So[facility] Medical CenterComment on above:Result Comment: Negative 0 - 19 Weak Positive 20 - 30 Moderate to Strong Positive >30Performed By: #### CELIACP #### [facility] [address] [place] [address] [address] Leesa UrbinaDeamidated Gliadin Abs, IgG4 unitsNormal0-19[facility] Comment on above:Result Comment: Negative 0 - 19 Weak Positive 20 - 30 Moderate to Strong Positive >30Performed By: #### CELIACP #### [facility] [address] [place] [address] Dr. Landers ChangEndomysial Antibody IgANegativeNormalNegativeThe [facility] CenterComment on above:Performed By: #### CELIACP #### [facility] [address] [place] [address] Dr. Leesa rUbinaImmunoglobulin A, Qn, Mpreu926 mg/xWWoaowz26-158FikKettering Health – Soin Medical CenterComment on above:Performed By: #### CELIACP #### [facility] [address] [place] [address] Dr. Leesa Urbinat-Transglutaminase (tTG) IgA<9Jfroky4-7Fny [facility] Comment on above:Result Comment: Negative 0 - 3 Weak Positive 4 - 10 Positive >10 . Tissue Transglutaminase (tTG) has been identified as the endomysial antigen. Studies have demonstr- ated that endomysial IgA antibodies have over 99% specificity for gluten sensitive enteropathy.Performed By: #### CELIACP #### [facility] [address] [place] [address] [address] Leesa Urbinat-Transglutaminase (tTG) IgG6 U/mLCritically high0-5The [facility] CenterComment on above:Result Comment: Negative 0 - 5 Weak Positive 6 - 9 Positive >9Performed By: #### CELIACP #### [facility] [address] [place] [address] Dr. Leesa Morales AUTO DIFFon 35-75-5497ZBEE #0.1 103/ulNormal0.0-0.1The [facility] Hospitalment on above:Performed By: #### LIPID, TSH, CMP #### [facility] [address] [place] [address] Dr. Leesa UrbinaBasophils/100 WBC (Bld)1.1 %Normal0.2-2.0The [facility] Comment on above:Performed By: #### LIPID, TSH, CMP #### [facility] [address] [place] [address] Dr. Leesa Graves #0.6 103/ulNormal0.0-0.7The [facility] CenterComment on above: Performed By: #### LIPID, TSH, CMP #### [facility] [address] [place] [address] Dr. Leesa Loweryosinophils/100 WBC (Bld)7.9 %Critically high0.9-7.0The [facility] CenterComment on above:Performed By: #### LIPID, TSH, CMP #### [facility] [address] [place] [address] Dr. Leesa Loweryrythrocyte distribution width (RBC) [Ratio]13.6 %Bebtfy67.0-15.0 The [facility] Hospitalment on above:Performed By: #### LIPID, TSH, CMP #### [facility] [address] [place] [address] Dr. Leesa UrbinaHematocrit (Bld) [Volume fraction]34.4 %Critically low42.0-54.0 The [facility] Hospitalment on above:Performed By: #### LIPID, TSH, CMP #### [facility] [address] [place] [address] Dr. Leesa UribnaHemoglobin (Bld) [Mass/Vol]11.4 g/dLCritically low14.0-18.0The [facility] CenterComment on above:Performed By: #### LIPID, TSH, CMP #### [facility] [address] [place] [address] [address] Leesa Diaz #0.02 10e3/ulNormal0.00-0.03The [facility] on above:Performed By: #### LIPID, TSH, CMP #### [facility] [address] [place] [address] [address] Leesa Diaz %0.3 %Normal0.0-0.5The [facility] CenterComment on above: Performed By: #### LIPID, TSH, CMP #### [facility] [address] [place] [address] Dr. Leesa Cordova #2.1 103/ulNormal1.2-3.8The [facility] CenterComment on above:Performed By: #### LIPID, TSH, CMP #### [facility] [address] [place] [address] Dr. Leesa Aguillonhocytes/100 WBC (Bld)28.1 %Fpedvy76.5-60.0The [facility] Hospitalment on above:Performed By: #### LIPID, TSH, CMP #### [facility] [address] [place] [address] Dr. Leesa OrtizUAL DIFF REQNONormalThe [facility] CenterComment on above: Performed By: #### LIPID, TSH, CMP #### [facility] [address] [place] [address] Dr. Leesa Mcmillan (RBC) [Entitic mass]31.1 nrGwxfac12.9-34.0The [facility] CenterComment on above:Performed By: #### LIPID, TSH, CMP #### [facility] [address] [place] [address] Dr. Leesa Mcmillan (RBC) [Mass/Vol]33.1 g/uMTtwfqg14.9-35.2The [facility] CenterComment on above:Performed By: #### LIPID, TSH, CMP #### [facility] [address] [place] [address] Dr. Leesa Mcmillan (RBC) [Entitic vol]93.7 rCOtnfjk38.0-94.0The [facility] CenterComment on above:Performed By: #### LIPID, TSH, CMP #### [facility] [address] [place] [address] Dr. Leesa Howard #0.4 103/ulNormal0.3-0.8The [facility] CenterComment on above:Performed By: #### LIPID, TSH, CMP #### [facility] [address] [place] [address] Dr. Leesa Napolesocytes/100 WBC (Bld)6.0 %Normal1.7-12.0The [facility] Comment on above:Performed By: #### LIPID, TSH, CMP #### [facility] [address] [place] [address] Dr. Leesa Mendoza #4.2 103/ulNormal1.4-6.5The [facility] Hospitalment on above:Performed By: #### LIPID, TSH, CMP #### [facility] [address] [place] [address] Dr. Leesa Asherutrophils/100 WBC (Bld)56.6 %Umakzl00.0-75.0The [facility] CenterComment on above:Performed By: #### LIPID, TSH, CMP #### [facility] [address] [place] [address] Dr. Leesa Whitley mean volume (Bld) [Entitic vol]10.1 fLNormal9.5-13.5The [facility] Hospitalment on above:Performed By: #### LIPID, TSH, CMP #### [facility] [address] [place] [address] Dr. Leesa UrbinaPLT195 103/wwOgsdqm110-797Fum [facility] Hospitalment on above: Performed By: #### LIPID, TSH, CMP #### [facility] [address] [place] [address] Dr. Leesa UrbinaRBC3.67 106/ulCritically low4.70-6.10The [facility] CenterComment on above:Performed By: #### LIPID, TSH, CMP #### [facility] [address] [place] [address] Dr. Leesa UrbinaWBC7.3 103/ulNormal4.0-11.0The [facility] CenterComment on above: Performed By: #### LIPID, TSH, CMP #### [facility] [address] [place] [address] Dr. Leesa JuneRITINon 29-43-2765Wifbsrov [Mass/Vol]44.0 ng/mLNormal 26.0-388.0The [facility] CenterComment on above:Performed By: #### FERR, FETIBC #### [facility] [address] [place] [address] Dr. Leesa Adkins AND TIBCon 09-03-2022% HCFIMCNZCW10.5 %NormalThe [facility] CenterComment on above:Performed By: #### FERR, FETIBC #### [facility] [address] [place] [address] Dr. Leesa Adkins [Mass/Vol]69.0 ug/tOMjtfwp08.0-175.0[facility] Comment on above:Performed By: #### FERR, FETIBC #### [facility] [address] [place] [address] Dr. Leesa Giles VDWHJD610.0 ug/fZChqhxw344.0-450.0[facility] Comment on above:Performed By: #### FERR, FETIBC #### [facility] [address] [place] [address] Dr. Leesa Vides Visit (Cardiology)on 29-66-7412Jlvaxm-up visit Diagnoses/Problems Assessed Anticoagulated (V58.61) (Z79.01) Benign essential hypertension (401.1) (I10) Hyperlipidemia (272.4) (E78.5) Paroxysmal atrial fibrillation (427.31) (I48.0) Diabetes mellitus (250.00) (E11.9) Body mass index (BMI) of 24.0 to 24.9 in adult (V85.1) (Z68.24) Never a smoker Orders SocHx: Never a smoker Tobacco Use Screening; Status:Complete; Done: 10Ycm6042 Patient Instructions Please bring all medicines, vitamins, [...] adequately managed. Merits of maintaining ideal body w eight and is favorable impact on his diabetes [...] negative for complaint. Vitals Vital Signs Recorded: 65Svm4482 09:08AM Heart Rate68, L Radial Zhzusjkm120, LUE, Sitting Ahlmrpikt74, LUE, Sitting Height5 ft 11 in Znvdvd534 lb BMI Egkypszhep26.13 kg/m2 BSA Calculated1.98 Tobacco Useb) No PHQ-2 #1. Over the last 2 weeks have you felt down, depressed or hopeless? (If yes, answer PHQ-9 below)No PHQ-2 #2. Over the last 2 weeks have you felt little interest or pleasure in doing things? (If yes,answer PHQ-9 below)No Falls Screening (Age 18+)a) No [...] MD; Jul 14 2022 10:20AM EST (Author) Normal[facility] TouchworksTobacco Screening.on [id number] depression screening assessmentNoNaval Hospital [facility] 250 DO Work Phone: Fall risk assessmenta) No falls within the last year [facility] 250 DO Work Phone: Tobacco use status [facility] [place] 250 DO Work Phone: CBC AUTO DIFFon [id number] #0.1 103/ulNormal 0.0-0.1The [facility] CenterComment on above:Performed By: #### CBC #### [facility] [address] [place] [address] Dr. Leesa UrbinaBasophils/100 WBC (Bld)1.4 %Normal0.2-2.0The [facility] Comment on above:Performed By: #### CBC #### [facility] [address] [place] [address] Dr. Leesa Graves #0.4 103/ulNormal0.0-0.7The [facility] CenterComment on above: Performed By: #### CBC #### [facility] [address] [place] [address] Dr. Leesa Loweryosinophils/100 WBC (Bld)5.4 %Normal0.9-7.0The [facility] Comment on above:Performed By: #### CBC #### [facility] [address] [place] [address] Dr. Leesa Loweryrythrocyte distribution width (RBC) [Ratio]13.3 %Redhyy28.0-15.0 [facility] CenterComment on above:Performed By: #### CBC #### [facility] [address] [place] [address] Dr. Leesa UrbinaHematocrit (Bld) [Volume fraction]35.8 %Critically low42.0-54.0 The [facility] CenterComment on above:Performed By: #### CBC #### [facility] [address] [place] [address] Dr. Leesa UrbinaHemoglobin (Bld) [Mass/Vol]12.0 g/dLCritically low14.0-18.0[facility] CenterComment on above:Performed By: #### CBC #### [facility] [address] [place] [address] Dr. Leesa Diaz #0.01 10e3/ulNormal0.00-0.03The [facility] CenterComment on above:Performed By: #### CBC #### [facility] [address] [place] [address] Dr. Leesa Diaz %0.2 %Normal0.0-0.5The [facility] CenterComment on above: Performed By: #### CBC #### [facility] [address] [place] [address] Dr. Leesa Cordova #1.7 103/ulNormal1.2-3.8The [facility] CenterComment on above:Performed By: #### CBC #### [facility] [address] [place] [address] Dr. Leesa Aguillonhocytes/100 WBC (Bld)26.1 %Erbimk07.5-60.0The [facility] CenterComment on above:Performed By: #### CBC #### [facility] [address] [place] [address] Dr. Leesa Felder DIFF REQNONormalThe [facility] CenterComment on above: Performed By: #### CBC #### [facility] [address] [place] [address] Dr. Leesa Santos (RBC) [Entitic mass]31.0 ebFjypak76.9-34.0The [facility] CenterComment on above:Performed By: #### CBC #### [facility] [address] [place] [address] Dr. Leesa Mcmillan (RBC) [Mass/Vol]33.5 g/aRSygkyn04.9-35.2The [facility] CenterComment on above:Performed By: #### CBC #### [facility] [address] [place] [address] Dr. Leesa Eden (RBC) [Entitic vol]92.5 nOZsewef24.0-94.0The [facility] CenterComment on above:Performed By: #### CBC #### [facility] [address] [place] [address] Dr. Leesa Howard #0.4 103/ulNormal0.3-0.8The [facility] CenterComment on above:Performed By: #### CBC #### [facility] [address] [place] [address] Dr. Leesa Napolesocytes/100 WBC (Bld)6.5 %Normal1.7-12.0The [facility] Comment on above:Performed By: #### CBC #### [facility] [address] [place] [address] Dr. Leesa AsherUT #4.0 103/ulNormal1.4-6.5The [facility] CenterComment on above:Performed By: #### CBC #### [facility] [address] [place] [address] Dr. Leesa Asherutrophils/100 WBC (Bld)60.4 %Dhxhpt78.0-75.0The [facility] CenterComment on above:Performed By: #### CBC #### [facility] [address] [place] [address] Dr. Leesa UrbinaPlatelet mean volume (Bld) [Entitic vol]10.6 fLNormal9.5-13.5The [facility] CenterComment on above:Performed By: #### CBC #### [facility] [address] [place] [address] Dr. Leesa UrbinaPLT185 103/hsKxwusm209-005Wbr [facility] CenterComment on above: Performed By: #### CBC #### [facility] [address] [place] [address] Dr. Leesa UrbinaRBC3.87 106/ulCritically low4.70-6.10The [facility] CenterComment on above:Performed By: #### CBC #### [facility] [address] [place] [address] Dr. Leesa UrbinaWBC6.6 103/ulNormal4.0-11.0The [facility] CenterComment on above: Performed By: #### CBC #### [facility] [address] [place] [address] Dr. Leesa UrbinaGLYCOHEMOGLOBIN A1Con [id number] RECOMMENDATIONSEE BELOWNocone health The [facility] Medical CenterComment on above:Result Comment: ADA RECOMMENDED LIMIT 4.0 - 6.0 ADA THERAPEUTIC TARGET < 7.0 ACTION SUGGESTED > 7.0Performed By: #### A1C #### [facility] [address] [address] [address] Leesa UrbinaGlucose [Mass/Vol]151 mg/dLNoKettering Health DaytonComment on above:Performed By: #### A1C #### [facility] [address] [address] [address] Leesa UrbinaHbA1c (Bld) [Mass fraction]6.9 %Critically high4.5-6.2[facility] CenterComment on above:Performed By: #### A1C #### [facility] [address] [place] [address] Dr. Leesa UrbinaLIPID PROFILEon 12-41-2399OPNU-HDL RATIO NORMSEE BELOWChillicothe VA Medical CenterComc.[facility]. [facility] on above:Result Comment: 3.3 - 4.4 LOW RISK 4.4 - 7.1 AVERAGE RISK 7.1 - 11.0 MODERATE RISK >11.0 HIGH RISKPerformed By: #### LIPID, TSH, CMP #### [facility] [address] [place] [address] Dr. Leesa UrbinaCholesterol [Mass/Vol]136 mg/dLNormal<=200The [facility] Comment on above:Performed By: #### LIPID, TSH, CMP #### [facility] [address] [place] [address] Dr. Leesa Andersesterol in HDL [Mass/Vol]62 mg/dLCritically flnz80-45Bph [facility] CenterComment on above:Performed By: #### LIPID, TSH, CMP #### [facility] [address] [place] [address] Dr. Leesa Andersesterol in LDL [Mass/Vol]53.0 mg/dLNoKettering Health DaytonComment on above:Performed By: #### LIPID, TSH, CMP #### [facility] [address] [place] [address] Dr. Leesa UrbinaCholesterol.total/Cholesterol in HDL [Mass ratio]2.2 {ratio} NormalThe [facility] CenterComment on above:Performed By: #### LIPID, TSH, CMP #### [facility] [address] [place] [address] Dr. Leesa Gaming NORMAL> or = 60 mg/dl - LOW CARDIOVASCULAR RISK <40 mg/dl - HIGH CARDIOVASCULAR RISKChillicothe VA Medical CenterComment on above:Performed By: #### LIPID, TSH, CMP #### [facility] [address] [place] [address] Dr. Leesa UrbinaLDL CALC NORMALSEE BELOWChillicothe VA Medical CenterComment on above:Result Comment: <100 mg/dl OPTIMAL 100 - 129 mg/dl NEAR OR ABOVE OPTIMAL 130 - 159 mg/dl BORDERLINE HIGH 160 - 189 mg/dl HIGH >190 mg/dl VERY HIGH Performed By: #### LIPID, TSH, CMP #### [facility] [address] [place] [address] Dr. Leesa UrbinaTriglyceride [Mass/Vol]105 mg/dLNormal<=150The [facility] Comment on above:Performed By: #### LIPID, TSH, CMP #### [facility] [address] [place] [address] Dr. Leesa UrbinaVLDL CALC21.0 mg/dLNoKettering Health DaytonComment on above: Performed By: #### LIPID, TSH, CMP #### [facility] [address] [place] [address] Dr. Leesa UrbinaPROF 14(COMP METB)on 72-75-9060Uclytcp [Mass/Vol]3.4 g/dLNormal 3.4-5.0The [facility] CenterComment on above:Performed By: #### LIPID, TSH, CMP #### [facility] [address] [place] [address] Dr. Leesa UrbinaAlbumin/Globulin [Mass ratio]1.1 {ratio}NormalThe [facility] CenterComment on above:Performed By: #### LIPID, TSH, CMP #### [facility] [address] [address] [address] Leesa Flores [Catalytic activity/Vol]77 U/RFbbary41-552Uyj [facility] CenterComment on above:Performed By: #### LIPID, TSH, CMP #### [facility] [address] [address] [address] Leesa LopesT [Catalytic activity/Vol]12 U/LCritically wdp79-72Lep [facility] CenterComment on above:Performed By: #### LIPID, TSH, CMP #### [facility] [address] [address] [address] Leesa Fernandez gap [Moles/Vol]12.7 mmol/LNormalKettering Health [facility] Medical Center Comment on above:Performed By: #### LIPID, TSH, CMP #### [facility] [address] [address] [address] Leesa UrbinaAST [Catalytic activity/Vol]19 U/VHhqzmk48-42Qgv [facility] CenterComment on above:Performed By: #### LIPID, TSH, CMP #### [facility] [address] [address] [address] Leesa UrbinaBilirubin [Mass/Vol]0.4 mg/dLNormal0.2-1.0The [facility] Comment on above:Performed By: #### LIPID, TSH, CMP #### [facility] [address] [address] [address] Leesa UrbinaCalcium [Mass/Vol]8.5 mg/dLNormal8.5-10.1The [facility] Comment on above:Performed By: #### LIPID, TSH, CMP #### [facility] [address] [address] [address] Leesa UrbinaChloride [Moles/Vol]107 mmol/VRtxccw58-355Ykm [facility] Comment on above:Performed By: #### LIPID, TSH, CMP #### [facility] [address] [address] [address] Leesa UrbinaCO2 [Moles/Vol]27.4 mmol/DKivjtn39.0-32.0The [facility] Comment on above:Performed By: #### LIPID, TSH, CMP #### [facility] [address] [address] [address] Leesa UrbinaCreatinine [Mass/Vol]1.06 mg/dLNormal0.70-1.30The [facility] CenterComment on above:Performed By: #### LIPID, TSH, CMP #### [facility] [address] [address] [address] Leesa LoweryGFR-AF ARMENIAN>60Normal>=60The [facility] CenterComment on above:Performed By: #### LIPID, TSH, CMP #### [facility] [address] [address] [address] Leesa LoweryGFR-NON AF ARMENIAN>60Normal>=60The [facility] CenterComment on above:Performed By: #### LIPID, TSH, CMP #### [facility] [address] [address] [address] Leesa UrbinaGlobulin (S) [Mass/Vol]3.1 g/dLNormalThe [facility] CenterComment on above:Performed By: #### LIPID, TSH, CMP #### [facility] [address] [address] [address] Leesa UrbinaGlucose [Mass/Vol]171 mg/dLCritically xfxn43-003Boz [facility] Hospitalment on above:Performed By: #### LIPID, TSH, CMP #### [facility] [address] [address] [address] Leesa UrbinaPotassium [Moles/Vol]4.1 mmol/LNormal3.5-5.1The [facility] Comment on above:Performed By: #### LIPID, TSH, CMP #### [facility] [address] [address] [address] Leesa UrbinaProtein [Mass/Vol]6.5 g/dLNormal6.4-8.2The [facility] Comment on above:Performed By: #### LIPID, TSH, CMP #### [facility] [address] [address] [address] Lesea UrbinaSodium [Moles/Vol]143 mmol/QNaqguk160-400Kky [facility] Comment on above:Performed By: #### LIPID, TSH, CMP #### [facility] [address] [place], [place] [address] Dr. Leesa Tobar nitrogen [Mass/Vol]24.0 mg/dLCritically high7.0-18.0The [facility] CenterComment on above:Performed By: #### LIPID, TSH, CMP #### [facility] [address] [place], [place] [address] Dr. Leesa Tobar nitrogen/Creatinine [Mass ratio]22.6 mg/mgNormalThe [facility] CenterComment on above:Performed By: #### LIPID, TSH, CMP #### [facility] [address] [place], [place] [address] Dr. Leesa UrbinaBasophils Auto (Bld) [#/Vol]Ordered By: Juan Guzman on 86-32-0303Qleriqqkk (Bld) [#/Vol]0.1 10*3/uL0.0-0.2F[facility] GlenbeighBasophils/100 WBC Auto (Bld)Ordered By: Juan Guzman on 12-05-2021 Basophils/100 WBC (Bld)0.9 %[facility] HospitalBlood hemoglobin measurement (mass/volume)Ordered By: Juan Guzman on 21-63-5185Nsfqhkztcm (Bld) [Mass/Vol]12.4 g/dL13.0-17.0[facility] HospitalBlood leukocytes automated count (number/volume)Ordered By: Juan Guzman on 79-29-6410EXZ (Bld) [#/Vol]7.0 10*3/uL4.5-11.0[facility] COVID-19 Positive/NegativeOrdered By: Juan Guzman on 70-16-9349QAQF-CoV-2 (COVID-19) N gene RENETTA+probe Ql (Resp)NegativeNegativeSt. Elizabeth HospitalComment on above:Testing for SARS-CoV-2 by RT-PCR This test was developed and its performance characteristics determined by [employer] ([employer]) and validated at the [facility]. This test has not been FDA [...] of time the declaration that circumstances exist ju stifying the authorization of the emergency use of in vitro diagnostic tests for detection of SARS-CoV-2 virus and/or diagnosis of COVID-19 infection under section 564(b)(1) of the Act, 21 U.S.C. 360bbb-3(b)(1), unless the authorization is terminated or revoked sooner.Creatinine and Glomerular filtration rate.predicted panel (S/P/Bld)Ordered By: Juan Guzman on 12-05-2021 Creatinine [Mass/Vol]1.28 mg/dL0.64-1.27[facility] Eosinophils Auto (Bld) [#/Vol]Ordered By: Juan Guzman on 12-05-2021 Eosinophils (Bld) [#/Vol]0.1 10*3/uL0.0-0.45[facility] Eosinophils/100 WBC Auto (Bld)Ordered By: Juan Guzman on 12-05-2021 Eosinophils/100 WBC (Bld)2.1 %[facility] HospitalErythrocyte distribution width Auto (RBC) [Ratio]Ordered By: Juan Guzman on 12-05-2021 Erythrocyte distribution width (RBC) [Ratio]14.6 %12.0-14.8[facility]. [facility] HospitalEstimated glomerular filtration rate (GFR) non- Ordered By: Juan Guzman on 64-63-6128URZ/1.73 sq M.predicted among non- blacks MDRD (S/P/Bld) [Vol rate/Area]54 mL/MinSt. Elizabeth Hospital Hematocrit Auto (Bld) [Volume fraction]Ordered By: Juan Guzman on 12-05-2021 Hematocrit (Bld) [Volume fraction]37.3 %38.8-50.0[facility] HospitalLaboratory - Hematology and Cell countsOrdered By: Juan Guzman on 68-70-3911Klkluyacq RBC/100 WBC (Bld) [Ratio]0.0 %0-0.5FACMC Healthcare System GlenbeighLymphocytes Auto (Bld) [#/Vol]Ordered By: Juan Guzman on 17-04-9937Immuwyjbgum (Bld) [#/Vol]1.4 10*3/uL1.00-4.8[facility]. [facility] HospitalLymphocytes/100 WBC Auto (Bld)Ordered By: Juan Guzman on 12-05-2021 Lymphocytes/100 WBC (Bld)19.8 %[facility] Auto (RBC) [Entitic mass]Ordered By: Juan Guzman on 63-73-7776TMZ (RBC) [Entitic mass] 30.8 pg27.5-35.2F[facility] Healthcare System GlenbeighMCHC Auto (RBC) [Mass/Vol] Ordered By: Juan Guzman on 87-49-9137XXSE (RBC) [Mass/Vol]33.1 g/dL32.5-35.6 [facility] HospitalMCV Auto (RBC) [Entitic vol]Ordered By: Juan Guzman on 07-71-2473MJZ (RBC) [Entitic vol]93.1 fL83.5-101St. [facility] HospitalMonocytes Auto (Bld) [#/Vol]Ordered By: Juan Guzman on 75-18-9433Njgblmsrt (Bld) [#/Vol]0.5 10*3/uL0.0-0.8[facility] HospitalMonocytes/100 WBC Auto (Bld)Ordered By: Juan Guzman on 12-05-2021 Monocytes/100 WBC (Bld)7.3 %[facility] HospitalNeutrophils Auto (Bld) [#/Vol]Ordered By: Juan Guzman on 87-61-0540Onpjvqczbwl (Bld) [#/Vol] 4.9 10*3/uL1.8-7.7F[facility] Healthcare System GlenbeighNeutrophils/100 WBC Auto (Bld)Ordered By: Juan Guzman on 97-55-6796Mqokgarygfw/100 WBC (Bld)69.9 % [facility] HospitalNo Panel InformationOrdered By: Juan Guzman on 84-51-7206Qpxeoctvc GFR ()> 60 mL/MinSt. Elizabeth HospitalComment on above:GFR estimated reference range: According to KDOQI guidelines, <60 ml/min/1.73m2 is sufficient todiagnose a patient with chronic kidney disease.Pharmacy Creatinine Clearance (ChemN/[facility] CenterPlatelet mean volume Auto (Bld) [Entitic vol]Ordered By: Juan Guzman on 62-34-7043Nvrgyqnq mean volume (Bld) [Entitic vol]8.9 fL6.6-10.1FAC[facility] Healthcare System GlenbeighPlatelets Auto (Bld) [#/Vol]Ordered By: Juan Guzman on 30-28-9694Uybhzoxor (Bld) [#/Vol]194 10*3/cY031-310OfnazbtibSt. Elizabeth HospitalRBC Auto (Bld) [#/Vol]Ordered By: Juan Guzman on 19-83-1767NTF (Bld) [#/Vol]4.00 10*6/uL3.90-5.60WV[facility] Community Hospitalerum or plasma calcium measurement (mass/volume)Ordered By: Juan Guzman on 12-05-2021 Calcium [Mass/Vol]9.2 mg/dL8.2-10.2FSCCI Hospital Limaerum or plasma chloride measurement (moles/volume)Ordered By: Juan Guzman on 11-41-2601Twskvfsd [Moles/Vol]107 mmol/U74-156GpyufrpenSt. Elizabeth Hospital Serum or plasma glucose measurement (mass/volume)Ordered By: Juan Guzman on 43-85-3401Sundbpb [Mass/Vol]117 mg/aP00-214FxjyemhinSt. Elizabeth Hospital Comment on above:ADA recommended reference range Random Glucose Reference Range is dependent on time and content of last meal. Glucose of more than 200 mg/dL in a nonstressed, ambulatory subject supports the diagnosis of Diabetes Mellitus.Serum or plasma potassium measurement (moles/volume)Ordered By: Juan Guzman on 68-74-2944Beynyfpxq [Moles/Vol]4.6 mmol/L3.5-5.1FSCCI Hospital Limaerum or plasma sodium measurement (moles/volume)Ordered By: Juan Guzman on 82-66-8878Yvefph [Moles/Vol]141 mmol/Q608-008XtvvreyipWVUMedicine Harrison Community Hospitalerum or plasma total carbon dioxide measurement (moles/volume)Ordered By: Juan Guzman on 60-66-5754QH0 [Moles/Vol]26.2 mmol/L22.0-30.0WVUM[facility] Community Hospitalerum or plasma urea nitrogen measurement (mass/volume)Ordered By: Juan Guzman on 12-05-2021 Urea nitrogen [Mass/Vol]23 mg/dL9-23St. [facility] HospitalCBC AUTO DIFFon 61-59-2780DRKR #0.1 103/ulNormal0.0-0.1The [facility] CenterComment on above:Performed By: #### CBC #### [facility] [address] [address] [address] Leesa Iqbalsophils/100 WBC (Bld)0.8 %Normal0.2-2.0[facility] Comment on above:Performed By: #### CBC #### [facility] [address] [address] [address] Leesa Graves #0.4 103/ulNormal0.0-0.7The [facility] CenterComment on above: Performed By: #### CBC #### [facility] [address] [address] [address] Leesa Loweryosinophils/100 WBC (Bld)5.6 %Normal0.9-7.0[facility] Comment on above:Performed By: #### CBC #### [facility] [address] [address] [address] Leesa Loweryrythrocyte distribution width (RBC) [Ratio]13.4 %Birynv75.0-15.0 The [facility] CenterComment on above:Performed By: #### CBC #### [facility] [address] [place] [address] Dr. Leesa UrbinaHematocrit (Bld) [Volume fraction]36.1 %Critically low42.0-54.0 The [facility] CenterComment on above:Performed By: #### CBC #### [facility] [address] [place] [address] Dr. Leesa UrbinaHemoglobin (Bld) [Mass/Vol]11.8 g/dLCritically low14.0-18.0The [facility] CenterComment on above:Performed By: #### CBC #### [facility] [address] [place] [address] Dr. Leesa UrbinaIG #0.02 10e3/ulNormal0.00-0.03The [facility] CenterComment on above:Performed By: #### CBC #### [facility] [address] [place] [address] Dr. Leesa UrbinaIG %0.3 %Normal0.0-0.5The [facility] CenterComment on above: Performed By: #### CBC #### [facility] [address] [place] [address] Dr. Leesa Cordova #1.8 103/ulNormal1.2-3.8The [facility] CenterComment on above:Performed By: #### CBC #### [facility] [address] [place] [address] Dr. Leesa Bhattmphocytes/100 WBC (Bld)28.4 %Zffnjc58.5-60.0The [facility] CenterComment on above:Performed By: #### CBC #### [facility] [address] [place] [address] Dr. Leesa UrbinaMANUAL DIFF REQNONormalThe [facility] CenterComment on above: Performed By: #### CBC #### [facility] [address] [place] [address] Dr. Leesa Santos (RBC) [Entitic mass]30.7 nsIsstyw88.9-34.0The [facility] CenterComment on above:Performed By: #### CBC #### [facility] [address] [place] [address] Dr. Leesa McmillanHC (RBC) [Mass/Vol]32.7 g/nXQavrnn49.9-35.2The [facility] CenterComment on above:Performed By: #### CBC #### [facility] [address] [place] [address] Dr. Leesa McmillanV (RBC) [Entitic vol]94.0 dUNluifp73.0-94.0The [facility] CenterComment on above:Performed By: #### CBC #### [facility] [address] [place] [address] Dr. Leesa Howard #0.5 103/ulNormal0.3-0.8The [facility] CenterComment on above:Performed By: #### CBC #### [facility] [address] [place] [address] Dr. Leesa Napolesocytes/100 WBC (Bld)8.1 %Normal1.7-12.0The [facility] Comment on above:Performed By: #### CBC #### [facility] [address] [place] [address] Dr. Leesa Mendoza #3.5 103/ulNormal1.4-6.5The [facility] CenterComment on above:Performed By: #### CBC #### [facility] [address] [place] [address] Dr. Leesa Asherutrophils/100 WBC (Bld)56.8 %Kfinzn56.0-75.0The [facility] CenterComment on above:Performed By: #### CBC #### [facility] [address] [place] [address] Dr. Leesa Birchlet mean volume (Bld) [Entitic vol]10.3 fLNormal9.5-13.5The [facility] CenterComment on above:Performed By: #### CBC #### [facility] [address] [place] [address] Dr. Leesa UrbinaPLT179 103/ehLbcbjr825-605Lkp [facility] CenterComment on above: Performed By: #### CBC #### [facility] [address] [address] [address] Leesa UrbinaRBC3.84 106/ulCritically low4.70-6.10The [facility] CenterComc.s. [facility] on above:Performed By: #### CBC #### [facility] [address] [address] [address] Leesa UrbinaWBC6.2 103/ulNormal4.0-11.0The [facility] CenterComment on above: Performed By: #### CBC #### [facility] [address] [address] [address] Leesa UrbinaGLYCOHEMOGLOBIN A1Con 09-51-4608WLI RECOMMENDATIONSEE BELOWDayton Va Medical CenterComc.s. [facility] on above:Result Comment: ADA RECOMMENDED LIMIT 4.0 - 6.0 ADA THERAPEUTIC TARGET < 7.0 ACTION SUGGESTED > 7.0Performed By: #### LIPID, TSH, CMP #### [facility] [address] [place] [address] Dr. Leesa UrbinaGlucose [Mass/Vol]151 mg/dLNoKettering Health DaytonComment on above:Performed By: #### LIPID, TSH, CMP #### [facility] [address] [place] [address] Dr. Leesa UrbinaHbA1c (Bld) [Mass fraction]6.9 %Critically high4.5-6.2[facility] Soin Medical CenterComment on above:Performed By: #### LIPID, TSH, CMP #### [facility] [address] [place] [address] Dr. Leesa UrbinaLIPID PROFILEon 21-46-1585YUQV-HDL RATIO NORMSEE [facility] HospitalComc.[facility] on above:Result Comment: 3.3 - 4.4 LOW RISK 4.4 - 7.1 AVERAGE RISK 7.1 - 11.0 MODERATE RISK >11.0 HIGH RISKPerformed By: #### LIPID, TSH, CMP #### [facility] [address] [place] [address] Dr. Leesa UrbinaCholesterol [Mass/Vol]150 mg/dLNormal<=200The [facility] Comment on above:Performed By: #### LIPID, TSH, CMP #### [facility] [address] [address] [address] Leesa UrbinaCholesterol in HDL [Mass/Vol]60 mg/zNOuwizu59-37Fdd [facility] CenterComment on above:Performed By: #### LIPID, TSH, CMP #### [facility] [address] [address] [address] Leesa UrbinaCholesterol in LDL [Mass/Vol]70.8 mg/dLNoKettering Health DaytonComment on above:Performed By: #### LIPID, TSH, CMP #### [facility] [address] [place] [address] Dr. Leesa Escudero.total/Cholesterol in HDL [Mass ratio]2.5 {ratio} NormalKettering Health – Soin Medical CenterComment on above:Performed By: #### LIPID, TSH, CMP #### [facility] [address] [place] [address] Dr. Leesa Gaming NORMAL> or = 60 mg/dl - LOW CARDIOVASCULAR RISK <40 mg/dl - HIGH CARDIOVASCULAR RISKChillicothe VA Medical CenterComment on above:Performed By: #### LIPID, TSH, CMP #### [facility] [address] [place] [address] Dr. Leesa Johnson CALC NORMALSEE BELOWChillicothe VA Medical CenterComment on above:Result Comment: <100 mg/dl OPTIMAL 100 - 129 mg/dl NEAR OR ABOVE OPTIMAL 130 - 159 mg/dl BORDERLINE HIGH 160 - 189 mg/dl HIGH >190 mg/dl VERY HIGH Performed By: #### LIPID, TSH, CMP #### [facility] [address] [place] [address] Dr. Leesa UrbinaTriglyceride [Mass/Vol]96 mg/dLNormal<=150[facility] Comment on above:Performed By: #### LIPID, TSH, CMP #### [facility] [address] [place] [address] Dr. Leesa BillingsLDL CALC19.2 mg/dLNoKettering Health DaytonComment on above: Performed By: #### LIPID, TSH, CMP #### [facility] [address] [address] [address] Leesa Ramsay CREAT RATIO RANDOMon 96-15-4469eTRZ<1.3Normal<=30.0The [facility] CenterComment on above:Performed By: #### LIPID, TSH, CMP #### [facility] [address] [place] [address] Dr. Leesa Smith CR RATIO11.4 mg/gNormal0.0-29.9The [facility] CenterComment on above:Performed By: #### LIPID, TSH, CMP #### [facility] [address] [place] [address] Dr. Leesa Smith CR RATIO RANGESEE BELOWECU Health Medical Centere [facility] CenterComment on above:Result Comment: NO MICROALBUMINURIA 0-29 MG/G CLINICAL MICROALBUMINURIA 30-300 MG/G MACROALBUMINURIA >300 MG/GPerformed By: #### LIPID, TSH, CMP #### [facility] [address] [place] [address] Dr. Leesa Hansen GSGCL229.03 mg/cZUhxqdv24.00-300.00The [facility] Comment on above:Performed By: #### LIPID, TSH, CMP #### [facility] [address] [place] [address] Dr. Leesa UrbinaPROF 14(COMP METB)on 84-57-3012Zvyubce [Mass/Vol]2.3 g/dL Critically low3.4-5.0The [facility] Hospitalment on above:Performed By: #### LIPID, TSH, CMP #### [facility] [address] [place] [address] Dr. Leesa UrbinaAlbumin/Globulin [Mass ratio]0.5 {ratio}NormalThe [facility] on above:Performed By: #### LIPID, TSH, CMP #### [facility] [address] [place] [address] Dr. Leesa LopesP [Catalytic activity/Vol]77 U/LOxwqbt85-154Ieu [facility] CenterComment on above:Performed By: #### LIPID, TSH, CMP #### [facility] [address] [address] [address] Leesa LopesT [Catalytic activity/Vol]16 U/HAhwckh86-62Htl [facility] CenterComment on above:Performed By: #### LIPID, TSH, CMP #### [facility] [address] [address] [address] Leesa Fonsecaon gap [Moles/Vol]13.8 mmol/LNormalThe [facility] Comment on above:Performed By: #### LIPID, TSH, CMP #### [facility] [address] [address] [address] Leesa UrbinaAST [Catalytic activity/Vol]15 U/QSeqjpm50-73Fxs [facility] CenterComment on above:Performed By: #### LIPID, TSH, CMP #### [facility] [address] [place] [address] Dr. Leesa UrbinaBilirubin [Mass/Vol]0.5 mg/dLNormal0.2-1.0The [facility] Comment on above:Performed By: #### LIPID, TSH, CMP #### [facility] [address] [address] [address] Leesa UrbinaCalcium [Mass/Vol]8.7 mg/dLNormal8.5-10.1[facility] Comment on above:Performed By: #### LIPID, TSH, CMP #### [facility] [address] [address] [address] Leesa UrbinaChloride [Moles/Vol]107 mmol/NUsmzqe56-075Upp [facility] Comment on above:Performed By: #### LIPID, TSH, CMP #### [facility] [address] [address] [address] Leesa UrbinaCO2 [Moles/Vol]26.2 mmol/DYqrvxu83.0-32.0The [facility] Comment on above:Performed By: #### LIPID, TSH, CMP #### [facility] [address] [address] [address] Leesa UrbinaCreatinine [Mass/Vol]1.25 mg/dLNormal0.70-1.30[facility] So[facility] CenterComment on above:Performed By: #### LIPID, TSH, CMP #### [facility] [address] [place] [address] Dr. Leesa Cruz-AF ARMENIAN>60Normal>=60The [facility] CenterComment on above:Performed By: #### LIPID, TSH, CMP #### [facility] [address] [place] [address] Dr. Leesa LoweryGFR-NON AF TDMXPKLY88 mL/min/1.00f9Kisxbgrnkj low>=60[facility] CenterComment on above:Performed By: #### LIPID, TSH, CMP #### [facility] [address] [place] [address] Dr. Leesa UrbinaGlobulin (S) [Mass/Vol]4.3 g/dLNormalThe [facility] CenterComment on above:Performed By: #### LIPID, TSH, CMP #### [facility] [address] [place] [address] Dr. Leesa UrbinaGlucose [Mass/Vol]137 mg/dLCritically ffzw59-389Zdu [facility] CenterComment on above:Performed By: #### LIPID, TSH, CMP #### [facility] [address] [place] [address] Dr. Leesa UrbinaPotassium [Moles/Vol]4.0 mmol/LNormal3.5-5.1[facility] Comment on above:Performed By: #### LIPID, TSH, CMP #### [facility] [address] [place] [address] Dr. Leesa UrbinaProtein [Mass/Vol]6.6 g/dLNormal6.4-8.2[facility] Comment on above:Performed By: #### LIPID, TSH, CMP #### [facility] [address] [place] [address] Dr. Leesa UrbinaSodium [Moles/Vol]143 mmol/FPqmhqb619-120OhiKettering Health – Soin Medical Center Comment on above:Performed By: #### LIPID, TSH, CMP #### [facility] [address] [place] [address] Dr. Leesa Tobar nitrogen [Mass/Vol]24.0 mg/dLCritically high7.0-18.0[facility] CenterComment on above:Performed By: #### LIPID, TSH, CMP #### [facility] [address] [address] [address] Leesa Tobar nitrogen/Creatinine [Mass ratio]19.2 mg/mgNormalThe [facility] CenterComment on above:Performed By: #### LIPID, TSH, CMP #### [facility] [address] [address] [address] Leesa Martinez 77-98-9405GRB3.996 uIU/mLNormal0.358-3.740The [facility] CenterComment on above:Performed By: #### LIPID, TSH, CMP #### [facility] [address] [address] [address] Leesa Carvajal Screening.on 44-97-8667Ojdbv depression screening assessmentMayo Clinic Health [facility] 250 DO Work Phone: Fall risk assessmenta) No falls within the last year [facility] 250 DO Work Phone: Tobacco use status CPHSb) [facility] 250 DO Work Phone: Vital Signs Date TimeVital SignValuePerforming LcdoobhhnSmvubakm33-79-8432 15:35-0400 Diastolic blood xmzngdri41 mm[Hg]Cecilia Garcia MD Work Phone: [facility] ServicesGtasssqcii55-32-0784 15:35-0400Systolic blood mdqyxvyd890 mm[Hg]Cecilia Garcia MD Work Phone: [facility] ServicesTzgmkrvyhb47-20-8138 08:06-0400Diastolic blood zpgowjpy17 mm[Hg]Seng Angeles APRN-RAILROAD FIRER Work Phone: [facility]08-19-2025 08:06-0400 Systolic blood pszibkwk588 mm[Hg]Seng Angeles ADVERTISING DIRECTOR-RAILROAD FIRER Work Phone: 1(440)[address]08-19-2025 07:53-0400 Body cibrvo039.3 cmSeng Angeles ADVERTISING DIRECTOR-RAILROAD FIRER Work Phone: 7(217)[address] [place], [place] 7976208-19-2025 07:53-0400 Body mass index (BMI) [Ratio]22.43 kg/y6JysuxSeng Angeles ADVERTISING DIRECTOR-RAILROAD FIRER Work Phone: 5(246)[address] [place], [place] 7976208-19-2025 07:53-0400 Body .94 kgSeng Angeles ADVERTISING DIRECTOR-RAILROAD FIRER Work Phone: 1(895)[address]08-19-2025 07:53-0400 Heart rate72 /Jonathonjere Angeles ADVERTISING DIRECTOR-RAILROAD FIRER Work Phone: 1(819)[address]08-05-2025 16:01-0400 Diastolic blood mtkiizna63 mm[Hg]Seng Angeles ADVERTISING DIRECTOR-RAILROAD FIRER Work Phone: 0(551)[address] [place], [place] 79[address]208-05-2025 16:01-0400 Systolic blood vfhbsetm203 mm[Hg]Seng Angeles ADVERTISING DIRECTOR-RAILROAD FIRER Work Phone: 1(015)[address]08-05-2025 15:56-0400 Body .3 cmSeng Angeles ADVERTISING DIRECTOR-RAILROAD FIRER Work Phone: 1(416)[address]08-05-2025 15:56-0400 Body mass index (BMI) [Ratio]22.82 kg/s2HehmuSeng Angeles ADVERTISING DIRECTOR-RAILROAD FIRER Work Phone: 1(104)[address]08-05-2025 15:56-0400 Body urbuti90.21 kgSeng Angeles ADVERTISING DIRECTOR-RAILROAD FIRER Work Phone: 3(606)[address]08-05-2025 15:56-0400 Heart rate60 /Royer Angeles ADVERTISING DIRECTOR-RAILROAD FIRER Work Phone: [phone])[address]07-13-2025 09:37-0400 Body mass index (BMI) [Ratio]23.63 kg/c9AvyxchJaqui Bear NP Work Phone: [facility] ServicesKkhqszzfok94-22-4368 09:37-0400Body omfjvs08.58 kgRaositol Chema MAILHOUSE OPERATOR Work Phone: [facility] ServicesRzygyehhsh46-67-9012 09:37-0400Diastolic blood vprtuiic03 mm[Hg]Jaqui Bear MAILHOUSE OPERATOR Work Phone: [facility] ServicesTxqcnkckyo15-04-1684 09:37-0400Heart rate63 /min Jaqui Bear MAILHOUSE OPERATOR Work Phone: [facility] ServicesRtiwgtgnno91-77-6026 09:37-4208OfA6% (BldA) [Mass fraction]96 %Jaqui Bear MAILHOUSE OPERATOR Work Phone: [facility] ServicesIambozorhk18-31-7975 09:37-0400Systolic blood ipgbwzmd918 mm[Hg]Jaqui Bear MAILHOUSE OPERATOR Work Phone: [facility] ServicesNspileocac46-05-7530 10:09-0400Body .3 cmPaul Thomas DO Work Phone: [facility] ServicesJtdektpoue09-53-5359 10:09-0400Body mass index (BMI) [Ratio]23.63 kg/m2Paul Bisegundoenbach DO Work Phone: [facility] ServicesMjwpatcnkn24-11-4688 10:09-0400Body htiojz66.58 kgPaul Bideanna DO Work Phone: [facility] ServicesYkvpzrkiaw45-61-9601 17:00-0400Diastolic blood jjjcllgu62 mm[Hg]Nirav Bello DO Work Phone: [facility]06-30-2025 17:00-0400 Heart rate66 /minNirav Bello DO Work Phone: [facility]06-30-2025 17:00-0400 Respiratory rate16 /minNirav Bello DO Work Phone: [facility]06-30-2025 17:00-0400 SaO2% (BldA) [Mass fraction]95 %Nirav Bello DO Work Phone: 1(419)626-[address] [place], [place] 6895406-30-2025 17:00-0400 Systolic blood bzvmruwc545 mm[Hg]Nirav Bello DO Work Phone: 1(339)0-[address] [place], [place] 6895406-30-2025 15:24-0400 Body trentyhufhu26.2 [degF]Nirav Bello DO Work Phone: 1(105)2-[address] [place], [place] 6895406-30-2025 15:24-0400 Inhaled oxygen flow rate8 L/minNirav Bello DO Work Phone: 1(867)1-[address] [place], [place] 6895406-30-2025 13:26-0400 Body qhgtuo496.8 cmNirav Bello DO Work Phone: 6(696)2-[address] [place], [place] 6895406-30-2025 13:26-0400 Body dejqoe61.57 kgNirav Bello DO Work Phone: 1(489)[facility] [place], [place] 6895406-24-2025 09:37-0400 Body .3 cmNirav Bello DO Work Phone: 1(867)6-[address] [place], [place] [address]Dxsffjeejw81-67-3640 09:37-0400Body mass index (BMI) [Ratio]23.49 kg/b4VsmqudyNirav Bello DO Work Phone: [phone] ServicesNkbxzelbkl26-55-3882 09:37-0400Body relfei89.17 kgNirav Bello DO Work Phone: [facility] ServicesCxcvudagtt13-24-4358 09:37-0400Heart rate67 /min Nirav Bello DO Work Phone: [phone] ServicesErpocwbmte45-03-6610 09:37-3796KqV6% (BldA) [Mass fraction]97 %Nirav Bello DO Work Phone: [facility] ServicesBfpzcmerhn00-87-2978 09:21-0400Body .3 cmPaul Biedenlokesh DO Work Phone: [facility] ServicesRdbrhofiwb83-27-2266 09:21-0400Body mass index (BMI) [Ratio]25.1 kg/m2Paul Biedenbach DO Work Phone: [facility] ServicesNedhwsxpba75-40-4991 09:21-0400Body tpgopw99.11 kgPaul Biedenbach DO Work Phone: [facility] ServicesWwgvprodqw56-46-7456 11:54-0400Body bhzqam171.3 cmMissy Khoury MD Work Phone: 3(694)858-[address] [place], [place] 9130105-12-2025 11:54-0400 Body mass index (BMI) [Ratio]23.15 kg/x1VjyuekMissy Khoury MD Work Phone: 1(670)[address]05-12-2025 11:54-0400 Body grvaha28.3 kgMissy Khoury MD Work Phone: 5(163)[address]246 [address]05-12-2025 11:54-0400 Diastolic blood foskoqjn95 mm[Hg]Missy Khoury MD Work Phone: 8(849)816-[address] [place], [place] 9130105-12-2025 11:54-0400 Heart rate64 /minMissy Khoury MD Work Phone: 1(911)116-[address] [place], [place] 9130105-12-2025 11:54-0400 Systolic blood bspifvzy776 mm[Hg]Missy Khoury MD Work Phone: 5(828)073-[address] [place], [place] 9130104-14-2025 08:03-0400 Body iudhud275.3 cmNirav Bello DO Work Phone: [facility] ServicesSjysxkbxnk83-78-3387 08:03-0400Body mass index (BMI) [Ratio]24.96 kg/v3HnecqkjNirav Bello DO Work Phone: [facility] ServicesLmaqhxclcg83-94-6604 08:03-0400Body xzalgc54.66 kgNirav Bello DO Work Phone: [facility] ServicesYgpidbyyfq36-94-1363 08:03-0400Diastolic blood skqcmqej35 mm[Hg]Nirav Bello DO Work Phone: [facility] ServicesHjadrsehwy01-68-1188 08:03-0400Heart rate62 /min Nirav Bello DO Work Phone: [facility] ServicesUextehbuos87-68-3778 08:03-5964HvF6% (BldA) [Mass fraction]96 %Nirav Ace DO Work Phone: [phone] ServicesDctcssdtgt57-07-0839 08:03-0400Systolic blood xwhabsmz159 mm[Hg]Nirav Bello DO Work Phone: 0(595)1-[address] [place], [place] [address]Jivpnxrjtf26-44-9907 11:25-0400Diastolic blood jvszuffw07 mm[Hg]Nirav Bello DO Work Phone: 4(794)[address]03-19-2025 11:25-0400 Heart rate74 /minJuliancolette Bello DO Work Phone: 2(323)[address]03-19-2025 11:25-0400 Respiratory rate16 /minNirav Bello DO Work Phone: 7(388)[address]03-19-2025 11:25-0400 SaO2% (BldA) [Mass fraction]96 %Nirav Downingman DO Work Phone: 5(035)7-[address] [place], [place] 6895403-19-2025 11:25-0400 Systolic blood wcyclnnn916 mm[Hg]Nirav Ace DO Work Phone: 8(587)[address]03-19-2025 10:05-0400 Body jokfjq387.34 cmJecolette Bello DO Work Phone: 5(784)8-[address] [place], [place] 6895403-19-2025 10:05-0400 Body naqmszaspln18.5 [degF]Nirav Bello DO Work Phone: 4(024)7-[address] [place], [place] 6895403-19-2025 10:05-0400 Body .29 kgJecolette Bello DO Work Phone: 9(744)5-[address] [place], [place] 6895412-18-2024 09:57-0500 Body .3 cmJecolette Bello DO Work Phone: 6(840)813-[address] [place], [place] [address]Vqukzuuaat07-79-7646 09:57-0500Body mass index (BMI) [Ratio]24.81 kg/j4Ltwrlpvcolette Bello DO Work Phone: 1(912)[address] [place], [place] [address]Fdjrdstebn62-78-7311 09:57-0500Body vhixga62.2 kg Nirav Bello DO Work Phone: 1(931)9-[address] [place], [place] [address]Vfyqpvinno46-85-4781 09:57-0500Diastolic blood sksuceut45 mm[Hg]Nirav Bello DO Work Phone: 1(089)[address] [place], [place] 3740712-18-2024 09:57-0500Heart rate72 /min Nirav Bello DO Work Phone: 1(971)[address] [place], [place] 3740712-18-2024 09:57-2800QaD7% (BldA) [Mass fraction]97 %Nirav Bello DO Work Phone: 1(935)[address] [place], [place] 3740712-18-2024 09:57-0500Systolic blood eewsyegh572 mm[Hg]Nirav Bello DO Work Phone: 1(724)[address] [place] [address]-09-2024 14:07-0500Diastolic blood tiyuydul40 mm[Hg]Missy Khoury MD Work Phone: 5(394)[address]12-09-2024 14:07-0500 Systolic blood qiziddjb967 mm[Hg]Missy Khoury MD Work Phone: 7(673)[address]12-09-2024 13:39-0500 Body .3 cmMissy Khoury MD Work Phone: 0(589)[address]12-09-2024 13:39-0500 Body mass index (BMI) [Ratio]23.99 kg/g5DlvvbsMissy Khoury MD Work Phone: 6([phone])[address]12-09-2024 13:39-0500 Body vyxeor76.02 kgMissy Khoury MD Work Phone: 2(810)[address]12-09-2024 13:39-0500 Heart rate48 /minMissy Khoury MD Work Phone: 0(200)386-[address] [place], [place] 9130109-30-2024 07:52-0400 Body oeirnr669.3 cmEly 2[facility]09-30-2024 07:52-0400 Body mass index (BMI) [Ratio]23.71 kg/m2Ely [address] [place] [address] 02-21-2024 07:52-0400Body rlojvk52.[address] [place] [address] 02-21-2024 07:52-0400Diastolic blood cmezopja40 mm[Hg][place]indi 2[facility]09-30-2024 07:52-0400Systolic blood szjrjxud226 mm[Hg][place] 2 [facility]09-16-2024 09:44-0400Diastolic blood dhopqvlh42 mm[Hg][address]09-16-2024 09:44-0400Heart rate66 /minEly [address] [place], [place] 1946809-16-2024 09:44-0400Systolic blood fjmlubwe209 mm[Hg][address]08-22-2024 16:15-0400 Diastolic blood mdbhdgre062 mm[Hg]Missy Khoury MD Work Phone: 1(549)874-[address] [place], [place] 9130108-22-2024 16:15-0400 Systolic blood yolfmasg193 mm[Hg]Missy Khoury MD Work Phone: 1(524)[address]46 [address]08-22-2024 15:24-0400 Body vvxoxc573.3 cmMissy Khoury MD Work Phone: [phone])[address] [place], [place] 9130108-22-2024 15:24-0400 Body mass index (BMI) [Ratio]23.71 kg/a7OewqplMissy Khoury MD Work Phone: 1([phone])[address] [place], [place] 9130108-22-2024 15:24-0400 Body xnfipb99.11 kgMissy Khoury MD Work Phone: 1(513)[address] [place], [place] 9130108-22-2024 15:24-0400 Heart rate72 /minMissy Khoury MD Work Phone: 1(558)[address] [place], [place] 9130108-20-2024 09:54-0400 Body bjtrli772.3 cmNirav Bello DO Work Phone: [facility] ServicesKblwcryfks13-05-5066 09:54-0400Body mass index (BMI) [Ratio]24.22 kg/t4DyxihyaNirav Bello DO Work Phone: [facility] ServicesFlllvodzwf33-63-3010 09:54-0400Body hmwvun91.39 kgJuliancolette Bello DO Work Phone: [facility] ServicesEgodxfeegv91-38-3591 09:54-0400Heart rate75 /min Nirav Bello DO Work Phone: [address] [place], [place] [address]Aoxffchwsj73-52-0200 09:54-3258IfN2% (BldA) [Mass fraction]97 %Nirav Bello DO Work Phone: [facility] ServicesRaakviglix57-20-0517 08:34-0500Body ywfoxm455.3 cmEpifanio Davis MD Work Phone: [address] [place], [place] 2063602-20-2024 08:34-0500 Body mass index (BMI) [Ratio]23.99 kg/w1WwmusbnEpifanio Davis MD Work Phone: 8(389)464-[address] [place], [place] 4331602-20-2024 08:34-0500 Body dcuike73.02 kgEpifanio Davis MD Work Phone: [address] [place], [place] 2063602-20-2024 08:34-0500 Diastolic blood cubpvxnj12 mm[Hg]Epifanio Davis MD Work Phone: 9(577)430-[address] [place], [place] 4331602-20-2024 08:34-0500 Heart rate60 /minEpifanio Davis MD Work Phone: 4(062)003-[address] [place], [place] 4331602-20-2024 08:34-0500 Systolic blood noimeknt239 mm[Hg]Epifanio Davis MD Work Phone: [address] [place], [place] 2063606-27-2023 14:15-0400 Body vulvnv288.34 cmImad Asaad Other [employer] Other 06-27-2023 14:15-0400Body mass index (BMI) [Ratio] 23.71 kg/m2Imad Asaad Other [employer] Other 06-27-2023 14:15-0400Body crevkt20.11 kgImad Asaad Other [facility] [employer] Other 06-27-2023 14:15-0400Diastolic blood hcyphbjy73 mm[Hg] Imad ClassBadgesad Other [facility] [employer] Other 06-27-2023 14:15-0400Systolic blood fdisgclq676 mm[Hg] Imad Wilshire [employer] Other [facility] [employer] Other 02-21-2023 09:08-0500Body .34 cmJecolette Vargas [employer] Work Phone: [phone]-Yvxym [facility] 250 DO Work Phone: 1(401) 680-635402-21-2023 09:08-0500Body mass index (BMI) [Ratio] 24.13 kg/o5Zwhiexj A [employer] Work Phone: [phone]-Jtgdh [facility] 250 DO Work Phone: 1(534) 716-916002-21-2023 09:08-0500Body surface area Derived from formula1.98 w3Ufxhchf A [employer] Work Phone: [phone]-Fpfjh [facility] 250 DO Work Phone: 1(471) 781-829402-21-2023 09:08-0500Body uzwqrx50.47 kgNirav Vargas [employer] Work Phone: [id number]-Lsxbb [facility] 250 DO Work Phone: 1(608) 822-197102-21-2023 09:08-0500Diastolic blood kgdsubmq77 mm[Hg] Nirav Downingman Work Phone: 1(345) [phone]-Kiujx [facility] 250 DO Work Phone: 1(730) 889-116602-21-2023 09:08-0500Heart rate68 /minNirav Bello Work Phone: 1(450) [phone]-Bkgxk [facility] 250 DO Work Phone: 1(325) [phone] 09:08-0500Systolic blood duhvjcpy175 mm[Hg] Nirav Bello Work Phone: [phone]) [phone]-Jrmfk [facility] DO Work Phone: 1(867) [phone] 15:20-0500Diastolic blood dyczitic80 mm[Hg] Nirav Bello Work Phone: [phone]-Ndvad [facility] DO Work Phone: 1(487) [phone] 15:20-0500Heart rate65 /minNirav Downingman Work Phone: 1([phone]) [phone]-Mjgcf [facility] DO Work Phone: 1(147) [phone] 15:20-0500Systolic blood flgkbenz875 mm[Hg] Nirav Bello Work Phone: 1(866) [phone]-Fjdsp [facility] DO Work Phone: 1(771) [phone] 15:17-0500Body neaucd536.34 cmJecolette Downingman Work Phone: 1(892) [phone]-Lzqea [facility] DO Work Phone: 1(713) [phone] 15:17-0500Body mass index (BMI) [Ratio] 24.97 kg/n5DeqzsjrNirav Bello Work Phone: [phone]-Rultj [facility] DO Work Phone: 1(116) [phone] 15:17-0500Body surface area Derived from formula2.01 i1MncozxiNirav Bello Work Phone: [phone]-Unzxt [facility] DO Work Phone: 1(194) [phone] 15:17-0500Body dykboo44.19 kgNirav Bello Work Phone: [phone]-Opziy [facility] DO Work Phone: 1(850) 369-461002-10-2022 15:17-0500Diastolic blood kmabhdzd12 mm[Hg] Nirav Bello Work Phone: [phone]-Lnxoo [facility] DO Work Phone: 1(907) [phone] 15:17-0500Systolic blood zflxxioa246 mm[Hg] Nirav Bello Work Phone: [phone]-Udcrx [facility] DO Work Phone: Encounters Encounter DateEncounter TypeCare ProviderFacilityStart: 01-25-2025 End: 04-11-8765Qqabzgqbu Result EncounterGeneric External Data ProviderNOMS External Department UnsolicitedStart: 01-25-2025 End: 13-51-4620Mdjtfluif Result EncounterGeneric External Data ProviderNOMS External Department UnsolicitedStart: 01-17-2025 End: 74-76-3006Gxmdvh flowsLisa Garcia MD Work Phone: NOMS Suarez DermatologyStart: 01-17-2025 End: 29-67-2879Itotno flowsLisa Garcia MD Work Phone: NOMS Suarez DermatologyStart: 01-17-2025 End: 41-36-9672Jodiial encounter procedureCojeri Garcia MD Work Phone: NOMS Suarez DermatologyComment on above: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Start: 01-17-2025 End: 78-14-4887ffsuyiutopFGCVGNTU WILSONNot AvailableStart: 01-09-2025 End: 12-80-4040Jjjbis outpatient visit 10 Josue Angeles ADVERTISING DIRECTOR-RAILROAD FIRER Work Phone: uh FirelandsComment on above:BMI 22.0-22.9, adult (Primary Dx); Primary hypertension; 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)Start: 01-09-2025 End: 13-53-3212yhccauefhbQHCOXChildren's [facility] AmbulatoryStart: 12-26-2024 End: 59-32-4567Abshxy outpatient visit 10 minutesSeng Ashley Karthik RAI-RAILROAD FIRER Work Phone: uh FirelandsComment on above:Primary hypertension Start: 12-26-2024 End: 52-43-9056lptbdocqxtWHIRUChildren's Healthcare of [facility] AmbulatoryStart: 12-20-2024 End: 22-37-3533Lojfxpx encounter procedureJomaria elena Donald MD-Pet Scan Work Phone: Start: 12-20-2024 End: 23-13-7472qyxjazshjiIzvnzee Garman DO Work Phone: [facility] Work Phone: Start: 12-07-2024 End: 74-85-4333Rbtymg flowsheetEmkristyn Hensley MD Work Phone: noms SWS DERMStart: 12-07-2024 End: 29-60-6362Ergjcf flowsheetEmkristyn Hensley MD Work Phone: noms SWS DERMStart: 12-07-2024 End: 39-39-0270Llvhot outpatient visit 10 minutesEmkristyn Hensley MD Work Phone: noms SWS DERMComment on above:Actinic keratosis (Primary Dx); Spitting suture, initial encounterStart: 12-07-2024 End: 24-09-2480khprnrsqceVCKHS A PETITTINot AvailableStart: 12-03-2024 End: 96-43-1473Lzlkqy outpatient visit 25 minutesJaqui Bear NP Work Phone: noms SWS UCComment on above:Acute cystitis with hematuria (Primary Dx); DysuriaStart: 12-03-2024 End: 82-62-9214jvwapgjchiARJPW PETITTINot AvailableStart: 11-27-2024 End: 92-39-0364Dbxogz flowsheetPaul S Biedenbach DO Work Phone: noms ENT SANDUSKYStart: 11-27-2024 End: 46-42-1704Enmsti flowsheetPaul S Bideanna DO Work Phone: noms ENT SANDUSKYStart: 11-27-2024 End: 01-43-8259Iyhrxd follow up visit related to original pxPaul S Bisegundoenbach DO Work Phone: noms ENT SANDUSKYComment on above:Squamous cell carcinoma of skin of face (Primary Dx); Chronic anticoagulationStart: 11-27-2024 End: 76-64-2385bkorcypdvmDQOE S THOMASNot AvailableStart: 11-20-2024 End: 42-94-3909Mqoeinse Result EncounterPaul S Biedenbach DO Work Phone: noms External Department UnsolicitedStart: 11-20-2024 End: 43-00-6246Nczefxuh Result EncounterPaul S Biedenbach DO Work Phone: noms External Department UnsolicitedStart: 11-20-2024 End: 18-66-3385Pxcunoaix to same day surgery centerJuan Landon Stewartsegundooroinlokesh DO-[facility] CampusStart: 11-20-2024 End: 61-40-7050hxxsjbhmvgKedaucm Garman DO Work Phone: [facility] Work Phone: Start: 17-62-0029nyncadtebkYmvfnesa:BLANCO PrinceueStart: 11-14-2024 End: 69-59-4604Pguxfpk encounter procedurePaul Landon Casillasenlokesh XW-Ihw-Avdqgris Testing Work Phone: Start: 11-14-2024 End: 67-15-9849zenjvkfitoAwvhego GarmanFacility:[facility] Hospitaltart: 07-44-6221Baxoufenz for preprocedural cardiovascular examination Juan GuzmanHendry Regional Medical Center Physician GroupStart: 11-14-2024 End: 22-53-7465Xevtpj outpatient visit 25 minutesNirav Bello DO Work Phone: noms SWS IMComment on above:Stage 3a chronic kidney disease (CMS-HCC) (Primary Dx); Type 2 diabetes mellitus with other specified complication, without long-term current use of insulin (HCC); Primary hypertension ; PAF (paroxysmal atrial fibrillation) (HCC); Mixed hyperlipidemia ; Medicare annual wellness visit, subsequent; Advance care planningStart: 11-14-2024 End: 26-86-8350Mndvghf encounter procedureNirav Bello DO Work Phone: noms HealthcareStart: 11-14-2024 End: 52-29-7681kuitaomscgVVVAKCZ A GARMANNot AvailableStart: 11-13-2024 End: 34-15-2394Jygdnudro Result EncounterGeneric External Data ProviderNOMS External Department UnsolicitedStart: 11-13-2024 End: 84-06-7696Zbkfgtvwg Result EncounterGeneric External Data ProviderNOMS External Department UnsolicitedStart: 11-09-2024 End: 42-88-7124Zplsjp flowsheetPaul S Biedenbach DO Work Phone: noms ENT SANDUSKYStart: 11-09-2024 End: 67-82-7937Musnqh flowsheetPaul S Biedenbach DO Work Phone: noms ENT SANDUSKYStart: 11-09-2024 End: 24-99-1822Wgmblk outpatient visit 40 minutesPaul S Biedenbach DO Work Phone: noms ENT SANDUSKYComment on above:Chronic anticoagulation (Primary Dx); Squamous cell carcinoma of skin of faceStart: 11-09-2024 End: 46-02-1445idxjiahtmyWERH S BIEDENBACHNot AvailableStart: 10-30-2024 End: 79-91-0973Ejmlmtdfb Result EncounterNirav Bello DO Work Phone: noms External Department UnsolicitedStart: 10-30-2024 End: 30-65-5276Iftxuwerk Result EncounterNirav Bello DO Work Phone: noms External Department UnsolicitedStart: 10-26-2024 End: 49-62-3841Frhrao Clifton Hensley MD Work Phone: noms [facility] DERMStart: 10-26-2024 End: 05-72-7735Emeetz Clifton Hensley MD Work Phone: noms [facility] DERMStart: 10-26-2024 End: 46-65-6429Kdihei outpatient visit 15 minutesEmkristyn Hensley MD Work Phone: noms [facility] DERMComment on above:Seborrheic keratosis (Primary Dx); Lentigines; Actinic keratosis; Neoplasm of unspecified behavior of bone, soft tissue, and skin; History of malignant neoplasm of skinStart: 10-26-2024 End: 22-62-8470qnnyjuipijNMODK Alicia PETANDREZINot AvailableStart: 10-02-2024 End: 75-21-7249Nktofn outpatient visit 25 minutesMissy Khoury MD Work Phone: uh [facility] HospitallandsComment on above:Paroxysmal atrial fibrillation (Multi); Primary hypertension; Stage 3a chronic kidney disease (Multi); 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 I through stage IV, or unspecified; Nonrheumatic mitral valve regurgitation; Mixed hyperlipidemia; Type 2 diabetes mellitus without complication, without long-term current use of insulin; Medication course changed; Body mass index (BMI) of 23.0 to 23.9 in adult; Former smokerStart: 10-02-2024 End: 73-01-3946esvefqqqssVGOCTPKell [facility] Hospital AmbulatoryStart: 09-13-2024 End: 51-78-5505Ldyaejlizandro Nance MD Work Phone: noms [facility] DERMStart: 09-13-2024 End: 99-24-4781Faftaacolton Nance MD Work Phone: noms SWS DERMStart: 09-13-2024 End: 32-93-9350Mjdqwv follow up visit related to original pxThomas Nona Nance MD Work Phone: noms SWS DERMComment on above:Encounter for removal of suturesStart: 09-13-2024 End: 52-68-2123dzplhjplnkJAHLXW E FLEMINGNot AvailableStart: 09-04-2024 End: 61-29-3235Nzzmxk outpatient visit 40 minutesNirav Bello DO Work Phone: noms SWS IMComment on above:PAF (paroxysmal atrial fibrillation) (CMS/HCC) (Primary Dx); Stage 3a chronic kidney disease (HCC) (CMS/HCC); Type 2 diabetes mellitus with other specified complication, without long-term current use of insulin; Mixed hyperlipidemia (CMS/HCC); Exocrine pancreatic insufficiency (CMS/HCC); Primary hypertension (CMS/HCC)Start: 09-04-2024 End: 17-98-9679tsruvlwozfVGIYCFI A GARMANNot AvailableStart: 08-30-2024 End: 34-21-3050Wdezted encounter procedureEmkristyn Hensley MD Work Phone: noms SWS DERMComment on above:Squamous cell carcinoma of skin of left upper limb, including shoulder (Primary Dx)Start: 08-30-2024 End: 57-03-0294xqtguirpmkZPNHY A PETITTINot AvailableStart: 08-25-2024 End: 01-16-0201Snwvulkpr Result EncounterGeneric External Data ProviderNOMS External Department UnsolicitedStart: 08-25-2024 End: 49-81-9787Bbprvryik Result EncounterGeneric External Data ProviderNOMS External Department UnsolicitedStart: 08-09-2024 End: 47-01-0678Zybjwjpxq to same day surgery Daria Bello DO Work Phone: [facility] ShawStart: 08-09-2024 End: 40-29-0608ccqrdeifzaVbrctfb Garman DO Work Phone: [facility] Work Phone: Start: 08-04-2024 End: 51-69-6785pijykjdmziOVSRNKT Jessie ALAMOIONNot AvailableStart: 07-26-2024 End: 17-69-6946Mnwbgxq encounter procedureEmkristyn Hensley MD Work Phone: [facility] DERMComment on above: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, including hip (Primary Dx)Start: 07-26-2024 End: 55-11-7914xtpuekwqerXJUID A PETITTINot AvailableStart: 07-26-2024 End: 06-17-6717Dvapny flowsheetEmkristyn Hensley MD Work Phone: [facility] DERMStart: 07-26-2024 End: 28-19-0622Ugkxfz Clifton Hensley MD Work Phone: [facility] DERMStart: 07-14-2024 End: 98-21-7642Ziibru Clifton Hensley MD Work Phone: [facility] DERMStart: 07-14-2024 End: 35-33-0296Hetjpc flowsheetLaura Hensley MD Work Phone: [facility] DERMStart: 07-14-2024 End: 78-08-5593Xgvptzz encounter procedureEmkristyn Hensley MD Work Phone: [facility] DERMComment on above:Neoplasm of unspecified behavior of bone, soft tissue, and skin (Primary Dx); Encounter for removal of suturesStart: 07-14-2024 End: 71-05-2597mirmyzdyzpAOSUJ A PETITTINot AvailableStart: 07-06-2024 End: 32-94-6967Ycudsydin Result EncounterGeneric External Data ProviderNOMS External Department UnsolicitedStart: 07-06-2024 End: 18-44-1388Eqiarsvrv Result EncounterGeneric External Data ProviderNOMS External Department UnsolicitedStart: 06-30-2024 End: 11-36-7224Inaqmf flowsAlisa Hensley MD Work Phone: [facility] DERMStart: 06-30-2024 End: 17-72-8630Tgsforlizandro Hensley MD Work Phone: noms [facility] DERMStart: 06-30-2024 End: 11-49-7305Awuwjgf encounter procedureLaura Hensley MD Work Phone: noms [facility] DERMComment on above:Basal cell carcinoma (BCC) of skin of left upper extremity including shoulder (Primary Dx); Skin neoplasmStart: 06-30-2024 End: 78-13-2572lcekznvowmDNOTP A PETITTINot AvailableStart: 05-10-2024 End: 49-59-7710Tussce Cherise Downingpeng WALKER Work Phone: noms [facility] IMStart: 05-10-2024 End: 50-04-2734Ryozwe E-Car ClubgenoJuliancolette Vargas [employer] Work Phone: noms [facility] IMStart: 05-10-2024 End: 55-48-4764Fnekoc outpatient visit 40 minutesNirav Bello DO Work Phone: noms [facility] IMComment on above:Allergic sinusitis (Primary Dx); Type 2 diabetes mellitus with other specified complication, without long-term current use of insulin (CMS/HCC); Primary hypertension (CMS/HCC); PAF (paroxysmal atrial fibrillation) (CMS/HCC); Exocrine pancreatic insufficiency (CMS/HCC); Stage 3a chronic kidney disease (HCC) (CMS/HCC); Mixed hyperlipidemia (CMS/HCC); Chest pain, unspecified typeStart: 05-10-2024 End: 32-23-7590qawzulenphBPOGDUD A GARMANNot AvailableStart: 05-01-2024 End: 89-09-1685Mopdph outpatient visit 25 minutesMissy Khoury MD Work Phone: [facility] CenterComment on above:Encounter to discuss test results (Primary Dx); Paroxysmal atrial fibrillation (Multi); Nonrheumatic mitral valve regurgitation; 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); Essential hypertension; Prostate cancer (Multi); PVC (premature ventricular contraction); Mixed hyperlipidemia; Type 2 diabetes mellitus without complication, without long-term current use of insulin (Multi); 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; Former smoker; Body mass index (BMI) of 23.0 to 23.9 in adultStart: 05-01-2024 End: 91-69-8256shaiqmvjvaKSQMXRPiedmont [facility] AmbulatoryStart: 04-27-2024 End: 16-64-2938Omdseqcolton Hensley MD Work Phone: [facility] DERMStart: 04-27-2024 End: 52-71-1976Fnwbgxcolton Hensley MD Work Phone: noms [facility] DERMStart: 04-27-2024 End: 67-72-6446gdzrkrufneDVZMQ A PETITTINot AvailableStart: 04-03-2024 End: 01-81-7576Pgykgdzmt Result EncounterGeneric External Data ProviderNOMS External Department UnsolicitedStart: 04-03-2024 End: 78-19-3123Gypwvbxku Result EncounterGeneric External Data ProviderNOMS External Department UnsolicitedStart: 03-13-2024 End: 35-29-9203Muwqhycnb Result EncounterGeneric External Data ProviderNOMS External Department UnsolicitedStart: 03-13-2024 End: 88-97-1794Biabjocfs Result EncounterGeneric External Data ProviderNOMS External Department UnsolicitedStart: 02-21-2024 End: 97-40-3297kaoddgiwqkDEAZYXRegency Hospital Company Start: 02-21-2024 End: 26-47-0042Eldajlkfqo hospital visit by Jerry Suarez Echo/[facility]asc [facility] 2[facility] on above:PVC (premature ventricular contraction); Paroxysmal atrial fibrillation (Multi)Start: 02-07-2024 End: 35-23-3880Snckuyuzch hospital visit by Jerry Farr Ri 1[facility] CenterCom[facility] on above:PVC (premature ventricular contraction); 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; Ventricular arrhythmia; Abnormal electrocardiogram (ECG) (EKG)Start: 02-07-2024 End: 91-54-3500bcwvnctwiyGFUQHERegency Hospital Company Start: 02-03-2024 End: 80-93-4818Voljxdpgd Result EncounterGeneric External Data ProviderNOMS External Department UnsolicitedStart: 02-03-2024 End: 44-61-6030Czaidgngt Result EncounterGeneric External Data ProviderNOMI External Department UnsolicitedStart: 01-13-2024 End: 48-27-0198Ajfuvo outpatient visit 25 Kingston Khoury MD Work Phone: [facility] CenterComment on above:Ventricular arrhythmia (Primary Dx); PVC (premature ventricular contraction); Paroxysmal atrial fibrillation (Multi); 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; 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; High risk medication use; Mixed hyperlipidemia; Uncontrolled hypertension; Former smoker; Type 2 diabetes mellitus without complication, without long-term current use of insulin (Multi); Stage 3a chronic kidney disease (Multi); Prostate cancer (Multi); Abnormal electrocardiogram (ECG) (EKG)Start: 01-13-2024 End: 44-81-6139pqcwqggxysLSBPBEPiedmont [facility] AmbulatoryStart: 01-11-2024 End: 59-28-5010Fwgyuz outpatient visit 25 Sujey Bello DO Work Phone: [facility] INSTITUTEComment on above:Primary hypertension (CMS/HCC) (Primary Dx); PAF (paroxysmal atrial fibrillation) (CMS/HCC); Stage 3a chronic kidney disease (HCC) (CMS/HCC); Type 2 diabetes mellitus with other specified complication, without long-term current use of insulin (CMS/HCC)Start: 09-13-2023 End: 93-10-7488jzamxdehatOZGenny Bello Work Phone: [facility] Work Phone: Start: 09-13-2023 End: 42-20-9726Slkttmk encounter procedureDO Nirav Bello Work Phone: [facility]-Pet Scan Work Phone: Start: 07-13-2023 End: 24-24-6522Zvsdns outpatient visit 25 minutesEpifanio Davis MD Work Phone: [facility] CenterCom[facility] on above:Benign essential hypertension (Primary Dx); Mixed hyperlipidemia; Paroxysmal atrial fibrillation (CMS/HCC); Former smokerStart: 11-26-2022 End: 80-35-8396xeobreowdwOG Nirav Bello Work Phone: [facility] Work Phone: Start: 11-26-2022 End: 45-14-3896Jhqnetl encounter procedureDO Nirav Bello Work Phone: [facility]-CT Scan [place] Work Phone: Start: 11-17-2022 End: 98-29-2701wzcwvvxjbyDnss Asaad Other [place] [employer] Other Start: 58-43-1639Aedcul outpatient new 45 minutesImad AsaadFPG GastroenterologyStart: 94-29-3329Frqgcgsjg encounterImad AsaadFPG GastroenterologyStart: 09-03-2022 End: 42-69-1203adqpoeuvceYA NIRAV BELLOFacility:I7Feusq: 26-11-3503Olmtuv outpatient visit 25 minutesNirav Bello Work Phone: [phone]-TpeoqChildren's [place] 250 DO Work Phone: Start: 51-85-4706axpjfjrslkCeDr. Nirav Bello Facility:[id number]: 05-25-2022 End: 67-01-8304asakcvvbqzNP JEFFREY GARMANFacility:E3Akpts: 05-06-2022 End: 66-96-2890engrsyjuroQZ NIRAV BELLOFacility:H8Otkad: 82-27-2074Sq [facility] Nirav Bello Work Phone: [phone]-SvfceChildren's [place] 250 DO Work Phone: Start: 12-05-2021 End: 64-39-5894Cijbutn encounter procedureDO Nirav eBllo Work Phone: [facility] Lxq-Jqd-Uekjwfnu Testing Start: 11-20-2021 End: 16-91-4177rlsyasrdczJX DOCTOR MISCFacility:E9Poiew: 11-05-2021 End: 56-92-5467gkzamgucwoKR NIRAV BELLOFacility:G6Cpepn: 05-56-9253Wdbszf outpatient visit 25 minutesTulioata Downingman Work Phone: [phone]-OpddsK[facility]son [facility] 250 DO Work Phone: Start: 80-61-0067El Lex Goldsmith MD Work Phone: mp-[facility] 250 DO Work Phone: Start: 07-12-2020 End: 07-08-2117Fankqewxkv RecurringJulianata [facility]- Covid Vaccine Procedures DateProcedureProcedure DetailPerforming ClinicianStart: 13-28-7018QRN CBC WITH AUTO DIFFGeneric External Data ProviderStart: 18-93-3343XZHD SURGERYCojeri Garcia MD Work Phone: Start: 34-07-0399Rniinsvp emission tomographyNirav Bello DO Work Phone: Start: 45-35-9582FFYGIDU TRACT INFECTION (HTRX)Robin Bajwa DO Work Phone: Start: 53-98-0735Bifir dip stick/tablet rgnt non-auto w/o micrscpAnkaris Bajwa DO Work Phone: Start: 83-09-9331EVYMXBD POCT GLUCOMETERSJuan Guzman DO Work Phone: start: 73-99-9080Eejnhljd of lesion of chesoniaNirav Bello DO Work Phone: Start: 47-51-2659IOENDTG POCT GLUCOMETERSJuan Guzman DO Work Phone: start: 17-93-1338Yhflzwupzi glycosylated b6yAprdkmoNirav Bello DO Work Phone: Start: 98-64-5430ERN CBC WITH AUTO DIFFGeneric External Data ProviderStart: 89-74-2574IWP CBC WITH AUTO DIFFNirav Bello DO Work Phone: Start: 30-51-0472KLODPQNGATO SKIN LESIONEmkristyn Hensley MD Work Phone: Start: 10-26-2024 End: 47-01-6791WZLH / NAIL BIOPSYEmkristyn Hensley MD Work Phone: Start: 60-69-5672GAJI EXCISIONEmkristyn Hensley MD Work Phone: Start: 21-01-3357NRBV REPAIREmkristyn Hensley MD Work Phone: Start: 90-44-7979OEN CBC WITH AUTO DIFFGeneric External Data ProviderStart: 22-65-9256Vhhgd of skin to skinNirav Bello DO Work Phone: Start: 03-42-2095Fvatx excisionNirav Bello DO Work Phone: Start: 21-01-5432AMAN EXCISIONLaura Hensley MD Work Phone: Start: 07-14-2024 End: 68-80-7135WNFQ / NAIL BIOPSYEmkristyn Hensley MD Work Phone: Start: 39-41-7726ATX CMP (CMP) (FOR [facility] USE) Generic External Data ProviderStart: 99-87-8514OWCV REPAIREmkristyn Hensley MD Work Phone: Start: 48-43-9573EKWZ EXCISIONEmkristyn Hensley MD Work Phone: Start: 57-57-9261Bnzsyfdmgc glycosylated a5sFipnntxNirav Bello DO Work Phone: Start: 86-15-1195SLW CBC WITH AUTO DIFFGeneric External Data ProviderStart: 36-33-3841FCF CBC WITH AUTO DIFFGeneric External Data ProviderStart: 91-81-5343Nflr tthrc r-t 2d w/wom-mode compl spec&colr d Missy Khoury MD Work Phone: Start: 53-41-3511Lx strs tst xers&/or rx cont ecg trcg onlyMissy Khoury MD Work Phone: Start: 11-04-6119UHJ BASIC METABOLIC PANELGeneric External Data ProviderStart: 59-07-1636Gstlalio emission tomographyDO Nirav Bello Work Phone: Start: 22-60-7194Ftg routine ecg w/least 12 lds w/i&r Epifanio Davis MD Work Phone: Start: 94-11-6112EojejlghihxBlouycj Garman DO Work Phone: Start: 03-33-0051Aihlzolu tomography of abdomen and pelvis with contrastDO Nirav Bello Work Phone: Start: 12-02-7932KBH screeningDR DOCTOR MISCComment on above:Performed By: #### LIPID, TSH, CMP #### [facility] [address] [place] [address] Dr. Leesa UrbinaStart: 91-54-4817TXT screeningDR DOCTOR MISCComment on above: Performed By: #### PSAD #### [facility] [address] [address] [address] Leesa CheemaendectomyNirav Bello Work Phone: Cataract surgeryNirav Downingman Work Phone: ColonoscopyNirav Vargas [employer] Work Phone: Comment on above:[id number] Jovanny Yu; Operation on lipNirav Vargas [employer] Work Phone: ProstatectomyNirav Vargas [employer] Work Phone: Plan of Treatment DateCare ActivityDetailAuthorStart: 35-90-4309Lulalvwbz for malignant neoplasm of colonNOMI HealthcareStart: 26-72-5773Hadqgmyq screeningDiabetes: Retinopathy ScreeningNOMI HealthcareStart: 06-24-2026Medicare Annual Wellness (AWV)Medicare Annual Wellness (AWV)[facility] HealthcareStart: 46-55-6847Wrovkcopo for osteoporosis Bone Density ScanVan Wert County HospitalStart: 33-22-6735Bthrm screening for proteinDiabetes: Urine Protein ScreeningNOMI HealthcareStart: 07-12-2025 End: 93-82-3682Ndxarpp encounter wrnxqmakr76/19/2026 10:00 AM EST Office Visit [address] [place] [address] Missy Khoury MD [address] [facility] [address] [place] [address] [facility] CenterStart: 05-21-2025 End: 45-95-4711Mpcqhev encounter procedureNOMS SWS IMStart: 04-26-2025 End: 06-34-5634Inmvboy encounter procedureNOMS SWS DERMStart: 02-14-2025 Hemoglobin A1c measurementDiabetes: Hemoglobin H8JWCOT HealthcareStart: 55-79-0066Bxubwfzjw vaccinationInfluenza Vaccine (#1)[facility] HealthcareStart: 01-17-2025 End: 97-74-7600Kbwvanr encounter procedureNOMS SWS DERMComment on above:Arrived Start: 01-09-2025 End: 87-07-5309Gzeqvhz encounter cxxrpnurd33/19/2025 8:00 AM EDT Office Visit [address] [place] [address] Seng Angeles, CECELIA-DANISH [address] [facility] [address] [place] [address] [facility] CenterStart: 12-14-2024 End: 57-07-0161Mqvbmyt encounter cmhahyrat32/24/2025 10:30 AM EDT Office Visit [address] [place] [address] Missy Khoury MD [address] [facility] [address] [place] [address] [facility] CenterStart: 12-07-2024 End: 06-40-1723Fmeawqm encounter procedureNOMS SWS DERMComment on above:Arrived Start: 11-27-2024 End: 17-52-8154Fwakduj encounter procedureNOMS ENT SANDUSKYComment on above: ArrivedStart: 23-72-1179SmjisvurzWVUMedicine Harrison Community Hospitaltart: 11-14-2024 End: 47-96-8365Brufsxj encounter hzergmlcv49/24/2025 9:30 AM EDT Office Visit [facility] SWS IM [address] [place] [address] [place] [address] Nirav Bello DO [address] [place] [address] [facility] IMStart: 11-09-2024 End: 59-71-1050Jsfaseh encounter procedureNOMS SWS IMComment on above:Squamous cell carcinoma of skin of faceStart: 03-76-3672Uuxna screening for protein Diabetes: Urine Protein ScreeningNOMI HealthcareStart: 10-26-2024 End: 88-40-4747Qunbhzw encounter procedureNOMS SWS DERMComment on above:Arrived Start: 10-02-2024 End: 16-84-2108Rorjyqf encounter /12/2025 11:45 AM EDT Office Visit [address] [place] [address] Missy Khoury MD 917 [facility] [address] [place] [address] [facility] CenterStart: 61-85-7500AVOTM-19 Vaccine ( season)COVID-19 Vaccine ( season)[facility] Start: 09-13-2024 End: 96-46-4009Imznils encounter procedureNOMS SWS DERMComment on above:Arrived Start: 08-30-2024 End: 73-04-5716Mpylrvu encounter dbcswbolw66/09/2025 10:30 AM EDT Office Visit [facility] DERM [address] [place] [id number] Laura Hensley MD [address] [place] [address] [facility] DERMStart: 13-46-4693IrwltqparWVUMedicine Harrison Community Hospitaltart: 49-12-7276Jmcbzbwqgl A1c measurementDiabetes: Hemoglobin L3VKGRW HealthcareStart: 07-26-2024 End: 66-40-1092Dizghqv encounter fllagfuzc06/05/2025 2:50 PM EST Office Visit [facility] [address] [place] [phone] Laura Hensley MD [address] [place] [address] ArrivedNOMS SWS DERMComment on above:ArrivedStart: 07-18-2024 End: 88-55-7282Iozoabt encounter procedureUH Firefranciscan healthStart: 07-14-2024 End: 35-11-4289Jgolith encounter procedureNOMS SWS DERMComment on above:Arrived Start: 06-30-2024 End: 15-11-9601Edftqba encounter procedureNOMS SWS DERMComment on above:Arrived Start: 05-22-2024 End: 72-23-0329Pbeatxx encounter ehuudybfb89/30/2024 8:30 AM EST Office Visit [facility] [address] [place] [address] Nirav Bello DO [address] [place] [address] [facility] IMStart: 12-20-2024Medicare Annual Wellness (AWV) Medicare Annual Wellness (AWV)[facility] HealthcareStart: 05-10-2024 End: 13-92-3091Nhqfvck encounter upwzpqute33/18/2024 9:30 AM EST Office Visit [facility] [address] [place] [address] Nirav Bello DO [address] [place] [address] Other thrombophilia (CMS/HCC)[facility] S[facility] IMComment on above: Other thrombophilia (CMS/HCC)Start: 05-01-2024 End: 72-45-7552Dglqvqn encounter bsaxgegtp68/09/2024 1:45 PM EST Office Visit [address] [address] Missy Khoury MD [address] [place] [address] [facility]Start: 04-27-2024 End: 31-76-9550Gxneces encounter procedureNOMS SWS DERMComment on above:Arrived Start: 02-28-2024 End: 26-41-3153Jrajuvd encounter lrqpiuocy84/07/2024 3:30 PM EDT Office Visit [address] [address] Missy Khoury MD [address] [place] [address] [facility] CenterStart: 02-21-2024 End: 03-18-3958Mzofbdr encounter zhvmzsirc00/30/2024 7:45 AM EDT Appointment [place] [address] [place] [address] [facility]DGadsden [facility] CenterStart: 02-07-2024 End: 38-35-8168Soyqyjtxodtf / ancillary services ocaibrxver84/16/2024 11:00 AM EDT Ancillary Procedure [address] [address] [facility] FirelandsStart: 02-07-2024 End: 10-84-7071Iubamep encounter jvvzeydyk33/16/2024 10:15 AM EDT Appointment [facility] [address] [facility] [place] [address] [facility] Josh De La CruzStart: 02-07-2024 End: 54-06-7375Vauqqay encounter procedureUH Josh Jfafefranciscan healthStart: 01-27-2024 End: 81-11-6216Ohwpu metabolic 2000 panel - Serum or PlasmaBasic Metabolic Panel Lab Routine Uncontrolled hypertension Expected: 01/27/2024 (Approximate), Expi res: 01/12/2025[facility] Work Phone: Comment on above:Expected: 01/27/2024 (Approximate), Expires: 01/12/2025Start: 47-21-4937SMUGM-19 Vaccine ()COVID- 19 Vaccine ()[facility]: 40-54-2485Gdhxgnjvg vaccinationInfluenza Vaccine (#1)[facility] HealthcareStart: 01-13-2024 End: 90-92-4992Lzisiw monitor studyHolter Or Event Kayaking Instructor Cardiac Services Routine PVC (premature ventricular contraction) Paroxysmal atrial fibrillation (Multi) Expected: 01/13/2024 (Approximate), Expires: 01/12/2025 [facility] Work Phone: Comment on above:Expected: 01/13/2024 (Approximate), Expires: 01/12/2025Start: 01-13-2024 End: 19-43-9868SS Heart Perfusion W stress and W radionuclide IVNuclear Stress Test Cardiac Nuclear Medicine Routine PVC (premature ventricular contraction) 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 Ventricular arrhythmia Abnormal electrocardiogram (ECG) (EKG) Expected: 01/13/2024 (Approximate), Expires: 01/12/2026[facility] Work Phone: Comment on above:Expected: 01/13/2024 (Approximate), Expires: 01/12/2026Start: 01-13-2024 End: 13-59-1711PX Heart TransthoracicTransthoracic Echo Complete Echocardiography Routine PVC (premature ventricular contraction) Paroxysmal atrial fibrillation (Multi) Expected: 01/13/2024 (Approximate), Expires: 01/12/2026[facility] Service Area Work Phone: Comment on above:Expected: 01/13/2024 (Approximate), Expires: 01/12/2026Start: 02-57-6642Yxtymblu screeningDiabetes: Retinopathy ScreeningHeartland Behavioral Health ServicesStart: 67-43-8923JXGZH-19 Vaccine ( season) COVID-19 Vaccine ()[facility]Start: 00-74-9331JYY, Provider: Epifanio Davis, Status: Pen, Time: 8:50 AMFUV, Provider: Epifanio Davis, Status: Pen, Time: 8:50 AMMP-[facility] [employer]- [employer] [address] DO Work Phone: Start: 14-42-8845Idyvueyxre A1c measurementDiabetes: Hemoglobin I7JKWSJHeartland Behavioral Health ServicesStart: 59-07-0416TWA, Provider: Epifanio Davis, Status: Pen, Time: 9:10 AMFUV, Provider: Epifanio Davis, Status: Pen, Time: 9:10 AMMP-[facility]-[place] 250 DO Work Phone: Start: 45-99-4864PDG, Provider: Epifanio Davis, Status: Pen, Time: 10:15 AMFUV, Provider: Epifanio Davis, Status: Pen, Time: 10:15 AMMPSkyline Hospital [facility]-[place] 250 DO Work Phone: Start: 46-75-9943EYA High Risk: (Elderly (60+) or Population) (1 - 1-dose 75+ series)RSV High Risk: (Elderly (60+) or Population) (1 - 1-dose 75+ series)[facility] Start: 05-20-6439VDY patients and/or patients aged 60+ years (1 - 1- dose 60+ series)RSV patients and/or patients aged 60+ years (1 - 1-dose 60+ series)[facility]: 89-07-0991TLlM/Tdap/Td Vaccines (1 - Tdap)DTaP/Tdap/Td Vaccines (1 - Tdap)[facility]: 74-44-2255Klbca screening for proteinDiabetes: Urine Protein ScreeningUnAvita Health System: 28-49-6511Vmilrpig foot examinationDiabetes: Foot ExamUnAvita Health System: 1950 Glaucoma screeningDiabetes: Retinopathy ScreeningUnAvita Health System: 93-72-8923Sxzowq wellness visitWelcome to Medicare Visit [facility]: 44-96-2874Dlcyebvnno A1c measurement Diabetes: Hemoglobin X4CMcqmrruawdAvita Health System: 16-65-6018Vjozv panelLipid PanelUnAvita Health System: 01-21-1939Medicare Annual Wellness (AWV)Medicare Annual Wellness (AWV)[facility] HealthcareStart: 01-21-1939Medicare Annual Wellness VisitMedicare Annual Wellness Visit (AWV) [facility]: 56-34-7568Latfsvvop for malignant neoplasm of colonPARK CITY HOSPITAL HealthcareStart: 47-51-8327Annye screening for protein Diabetes: Urine Protein ScreeningUnCleveland Clinic Dermatopathology examDermatopathology exam Pathology and Cytology Timed Basal cell carcinoma (BCC) of skin of left upperextremity including shoulder Release Upon Ordering for 1 Occurrences starting 06/30/2024[facility] [employer] Work Phone: comment on above:Release Upon Ordering for 1 Occurrences starting 06/30/2024Dermatopathology examDermatopathology exam Pathology and Cytology Timed Neoplasm of unspecified behavior of bone, soft ti ssue, and skin Release Upon Ordering for 1 Occurrences starting 07/14/2024[facility] [employer] Work Phone: comment on above:Release Upon Ordering for 1 Occurrences starting 07/14/2024Dermatopathology examDermatopathology exam Pathology and Cytology Timed 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, including hip Release Upon Ordering for 1 Occurrences starting 07/26/2024[facility] [employer] Work Phone: comment on above:Release Upon Ordering for 1 Occurrences starting 07/26/2024Dermatopathology examDermatopathology exam Pathology and Cytology Timed Squamous cell carcinoma of skin of left upper limb, including shoulder Release Upon Ordering for 1 Occurrences starting 08/30/2024 [facility] Work Phone: comment on above:Release Upon Ordering for 1 Occurrences starting 08/30/2024Dermatopathology examDermatopathology exam Pathology and Cytology Timed Neoplasm of unspecified behavior of bone, soft ti ssue, and skin Release Upon Ordering for 1 Occurrences starting 10/26/2024[facility] Work Phone: comokll on above:Release Upon Ordering for 1 Occurrences starting 10/26/2024HIV 1+2 Ab+HIV1 p24 Ag [Presence] in Serum or Plasma by ImmunoassaySt. Elizabeth HospitalPatient EducationKnow your MedMagruder Hospital Ctr Work Phone: Patient referralSelect [facility]ty [facility] Work Phone: Immunizations Immunization DateImmunizationNotesCare PomlrtubFqnjgbjf06-65-2762GIGZD-91 (PFIZER) 12Y and olderNirav Bello DO Work Phone: [facility]11-02-2024Seasonal trivalent influenza vaccine, adjuvanted, preservative Silvia Khoury MD Work Phone: [facility] Work Phone: [phone] virus vaccine, unspecified formulationLaura Hensley MD Work Phone: [facility] ServicesLjfwhmzxps58-68-6885MEMKY-76 (MODERNA) 12Y and olderNirav Bello DO Work Phone: [facility]10-28-2023Influenza, Seasonal, Quadrivalent, AdjuvantedNirav Bello DO Work Phone: [facility] ServicesWrqztnwudx68-16-9875vdflrwmyv virus vaccine, unspecified formulationNirav Bello DO Work Phone: [facility] ServicesPvsvyjpmrg77-21-9882Acupzhk COVID-19 Bival Booster 50 MCG/0.5ML Intramuscular SuspensionJecolette Vargas [employer] Work Phone: [facility]10-18-2022Fluad Quadrivalent 0.5 ML Intramuscular Prefilled SyringeJeffata A [employer] Work Phone: [phone]-AufrqChildren's [place] 250 DO Work Phone: [phone] COVID-19 Vaccine 100 MCG/0.5ML Intramuscular SuspensionJePieceMaker Technologiesata Vargas [employer] Work Phone: [facility]10-28-2021Moderna COVID-19 Vaccine 100 MCG/0.5ML Intramuscular SuspensionJeffata A [employer] Work Phone: [facility]10-27-2021Moderna SARS-CoV-2 Booster VaccinationJeffata [employer] Work Phone: [facility] ServicesSjqxadhkmq10-12-3735auotvaawv, high dose seasonal, preservative-freeJulianffata A [employer] Work Phone: [facility] ServicesPptoljmunt75-07-3546Ruhezaw High-Dose Quadrivalent 0.7 ML Intramuscular Suspension Prefilled SyringeJePieceMaker Technologiesata Vargas [employer] Work Phone: [phone]-QiqezChildren's [place] 250 DO Work Phone: [phone]-77 mRNA-1273 (Moderna)[facility]01-23-2021COVID-19 mRNA-1273 (Moderna)[facility] [place]10-23-2020Fluad Quadrivalent 0.5 ML Intramuscular Prefilled SyringeIsowalkata A [employer] Work Phone: [facility] ServicesGcfbybylaw04-49-6094iiykxpqoa, high dose seasonal, preservative-freeJeffrey A [employer] Work Phone: [phone]-RuwxpChildren's [place] 250 DO Work Phone: [phone] vaccine recombinantTuliorey A [employer] Work Phone: [phone]-YtphmThomas [place] [address] DO Work Phone: [phone], high dose seasonal, preservative-freeJeffrey A [employer] Work Phone: [phone]-FloecThomas Ville [address] DO Work Phone: [phone], high dose seasonal, preservative-freeJeffrey A [employer] Work Phone: [phone]-NjgrqThomas Ville [address] DO Work Phone: [phone] vaccine recombinantTuliorey A [employer] Work Phone: [phone]-EeujjThomas [place] [address] DO Work Phone: [phone]b, high dose seasonal, preservative-freeJeffrey A [employer] Work Phone: [phone]-TmrapThomas [place] [address] DO Work Phone: [phone]r, high dose seasonal, preservative-freeJeffrey A [employer] Work Phone: [phone]-NhkrdThomas Ville [address] DO Work Phone: [phone]tf conjugate vaccine, 13 valent Nirav A [employer] Work Phone: [facility]11-07-2016influenza, high dose seasonal, preservative-freeJeffrey Ace DO Work Phone: [facility] ServicesPxwnsgzmek01-36-6056ecedofgs influenza, intradermal, preservative freeJeffrey Ace DO Work Phone: [facility] ServicesJyxfajzbag87-88-7824ifioyumgz, high dose seasonal, preservative-freeJeffrey A [employer] Work Phone: [phone]-MvjmfChildren's [place] 250 DO Work Phone: [phone]aairzkoy conjugate vaccine, 13 valent Nirav Bello DO Work Phone: [facility] ServicesOwgoiopjqi61-15-9039zgeaaj vaccine, liveNirav Bello DO Work Phone: [facility] ServicesMhlcsatoxr64-44-3424znivfbxuadoj polysaccharide vaccine, 23 valentNirav Bello Work Phone: [facility]01-08-2010novel gqxrhaxzz-Z5C9-52, preservative-free, injectableNirav Bello Work Phone: [phone]-IjmkzThomas [place]ille [address] DO Work Phone: [phone]lylumpew polysaccharide vaccine, 23 valAncelmo Bello DO Work Phone: [facility] Payers DatePayer CategoryPayerPoly [id number]-ned [id number] 2024Medicare (Managed Care)[employer] GOLD[employer] MEDICARE [id number] 2023MedicaidAETNA MEDICARE ADVANTAGE [id number] 2023Medicare [id number] Health Insurance [id number] 2.16840.1.652814.3.579.2.69065-10-6297Pkaerax0154421 2.16840.1.894767.3.579.2.16358-90-2963Qemqbbg7492858 2.16840.1.305396.3.579.2.54646-39-3980Afzfabb1752466 2.16840.1.169244.3.579.2.33499-68-4566Zcysprm2567471 2.16840.1.340529.3.579.2.51279-96-9110Uogyrfp6679287 2.16840.1.856277.3.579.2.84428-38-2643Kuecikz36154932 2.16840.1.588167.3.579.2.992912-68-9402Pnjltmj76782869 2.16840.1.134615.3.579.2.507763-40-0095Psleiac42297672 2.16840.1.775887.3.579.2.753330-93-1650Efhzpxs59243676 2.16840.1.428035.3.579.2.892743-61-3293Gidqulx56232950 2.16840.1.170875.3.579.2.612699-75-2612Pxvprtt83183685 2.16.840.1.216296.3.579.2.157491-11-2479Sdhuidl51752438 2.16.840.1.097433.3.579.2.55558-96-8449Rsqqpzi894774232 2.16840.1.311586.3.579.2.896591-49-2622Leoozdu257410769 2.16840.1.854617.3.579.2.907700-52-1035Cslbekw961495136 2.840.1.764289.3.579.2.973153-27-2073Mdsoomc144359051 2.840.1.952838.3.579.2.411367-73-2906Trodixo03817928 2.840.1.141610.3.579.2.525648-66-4034Wiodoab36801955 2.840.1.623480.3.579.2.322901-44-2156Wedhhub95180081 2.16840.1.948235.3.579.2.117723-08-9120Uurocru14226162 2.840.1.263165.3.579.2.152942-50-7809Cyjsekx07434031 2.16840.1.448443.3.579.2.717351-11-9135Dbfnpmg39865561 2.16840.1.550322.3.579.2.819476-54-6195Hmsmiwk07289393 2.16840.1.961538.3.579.2.204685-89-8297Eltnxce15555696 2.16840.1.080050.3.579.2.864481-52-8199Vnfbtok76585643 2.0.1.999410.3.579.2.911886-60-7618Xnzfrju4219361 2.0.1.202443.3.579.2.943745-19-3902Uvwidwr7068970 2.0.1.550803.3.579.2.242813-07-1695Mgokckd1277137 2..1.380136.3.579.2.243582-81-6842Qgfgggt2014668 2..1.857546.3.579.2.438497-62-7354Hxlpclc8550560 2..1.478878.3.579.2.957526-53-7879Kwoifie2867834 2..1.635072.3.579.2.929933-54-0438Vsjmxog7058317 2..1.995356.3.579.2.703798-36-5062Ektnobh0899947 2..1.072321.3.579.2.370222-48-5537Mkmozab2520102 2..1.909518.3.57[id number] Health InsuranceSelf QmnBACM3A5L 405v8yk1-v312-9699-zs6k-94752967qn29QecccieTUWRZImxnkuq22942975 2..1.649193.3.579.2.312Qygpseb56802600 2.0.1.970896.3.579.2.531 Kwbuxnw49432002 2.0.1.915637.3.579.2.649Kqfhbwg70222775 2.16.840.1.819869.3.579.2.531 Social History DateTypeDetailFacilityTobacco smoking status NHISUnknown if ever smokedSelect Medical Specialty Hospital [facility]ull CtrStart: 13-55-4020Ywb Assigned At [facility] CenterStart: 07-13-2023 End: 61-92-6167Svogp a smokerNever a smoker-[facility] 250 DO Work Phone: Comment on above:2-3 drinks a month;Start: 12-05-2021 End: 30-51-6654Izowsgl smoking status NHISEx-smoker (finding)[facility] CenterStart: 07-13-2023 End: 15-49-8555Rjr Assigned At [facility] [employer] Other Start: 06-12-1958 End: 50-62-1704Pdfrvdf of tobacco useCurrent smokerUnCleveland Clinic Work Phone: Start: 06-12-1958 End: 83-09-6036Rasjnhl of tobacco useCigarette SmokerUnCleveland Clinic Work Phone: Start: 07-13-2023 End: 46-59-6677Uqzhjsj use and exposureSmokeless tobacco non-userUnCleveland Clinic Work Phone: Start: 07-13-2023 End: 13-42-9528Veleoww intakeLifetime non-drinker (finding)[facility] Work Phone: Start: 64-42-2341Dje Assigned At BirthNot on file [facility] Work Phone: Start: 07-03-2023 End: 46-53-5089Fglhzzyn to SARS-CoV-2 (event)Not sureUnCleveland ClinicHistory of tobacco usePipe SmokerNOMS HealthcareHistory of tobacco use Passive smokerNOMS HealthcareStart: 01-11-2024 End: 17-30-7228Tpnreiovv beverage intakeCurrent drinker of alcohol (finding)[facility] HealthcareHow often to you have a drink containing alcohol?2-4 times a month [facility] HealthcareHow many standard drinks containing alcohol do you have on a typical day?1 or 2N[facility]S HealthcareHow often do you have 6 or more drinks on 1 occasion?NeverNOMS HealthcareStart: 03-34-8958Knuxdoo Commenton occasionNOMS HealthcareStart: 65-96-4170PdeBbiw (finding)[facility] Start: 21-29-5177QzkPfskTbzosfraqhOhioHealth [facility] Goals DatePatient GoalDesired Activity/State Clinical Notes 07-14-2022 to 01-17-2025 Note Date & YtfrTedgOeykzegc52-70-7507 History of Present illness Narrative* Cecilia Garcia MD - 01/17/2025 1:30 PM EDT Images [...] biopsy site Mohs surgery Consent obtained: written [place] Protocol: Procedure explained and questions answered to [...] fashion Prep type: chlorhexidine Biopsy accession number: [id number] Biopsy lab: [facility] Date of biopsy: 10/26/2024 Frozen [...] Next visit: as scheduled documented in this encounterHeartland Behavioral Health ServicesKcejjgurjs23-83-1020 History of Present illness Narrative* Seng Angeles, ADVERTISING DIRECTOR-RAILROAD FIRER - 01/09/2025 8:00 AM EDT Subjective: Epifanio Alvarez is a 84 y.o. [...] has an arm cuff, takes blood pressure aftermorning medications. Home machine has been calibrated by [...] B-12) 1,000 mcg tablet 1 tablet, Daily xbutwk-hqzsnxnn-fnmswsq (Creon) 24,000-76,000 -120,000 unit capsule 1 capsule, [...] 6 month follow up Seng Angeles MSN, ADVERTISING DIRECTOR-RAILROAD FIRER, PMHNP-[facility] [place], [place] Please excuse any errors in grammar or translation related to this dictation. Voice recognition software was utilized to prepare this document. documented in this encounterVan Wert County Hospital Work Phone: 1(618) 809-484108-19-2025 Instructions* Patient Instructions* DAPHNEY Charles - 01/09/2025 8:00 AM EDT [...] making process incorporating patients unique circumstances, the followingtreatment plan will be initiated: 1. Prescription drug management of cardiovascular medication for efficacy, adherence to treatment, side effect assessment and polypharmacy. Current treatment clinically warranted and to continue without modifications. 2. Return for follow-up; in the interim, contact the office if new symptoms arise. Dr. Khoury in 6 months documented in this encounterVan Wert County Hospital Work Phone: 1(827) 544-628808-05-2025 History of Present illness Narrative* DAPHNEY Charles - 12/26/2024 4:00 PM EDT Subjective: Epifanio Alvarez is a 84 y.o. [...] 0.1 mg daily. When he uses it 3times weekly he denies any type of orthostatic hypotension, maybe has a very mild dry mouth. Current Outpatient Medications Medication Instructions amLODIPine (NORVASC) 5 mg, oral, Daily ascorbic acid, vitamin C, 500 mg capsule 1 capsule, Daily atorvastatin (LIPITOR) 10 mg, oral, Daily cholecalciferol (VITAMIN D-3) 25 mcg, Daily cloNIDine (CATAPRES) 0.1 mg, oral, Daily cyanocobalamin (Vitamin B-12) 1,000 mcg tablet 1 tablet, Daily rrreeu-elqsjvlj-dsicppw (Creon) 24,000-76,000 -120,000 unit capsule 1 capsule, [...] regularly as instructed, no medication side effects noted,no TIA's, no chest pain on exertion, no [...] making process incorporating patients unique circumstances, the followingtreatment plan will be initiated: 1. Prescription drug management of cardiovascular medication for efficacy, adherence to treatment, side effect assessment and polypharmacy. Current treatment clinically warranted and to continue withfollowing modifications: - Clonidine 0.1mg daily & continue to use extra tablet as needed 2. Return for follow-up; in the interim, contact the office if new symptoms arise. MAILHOUSE OPERATOR 2 weeks Seng Angeles MSN, CECELIA-DANISH, PMHNP-[facility] [place], [place] Please excuse any errors in grammar or translation related to this dictation. Voice recognition software was utilized to prepare this document. documented in this encounterVan Wert County Hospital Work Phone: 1(976) 231-428408-05-2025 Instructions* Patient Instructions* DAPHNEY Charles - 12/26/2024 4:00 PM EDT [...] making process incorporating patients unique circumstances, the followingtreatment plan will be initiated: 1. Prescription drug management of cardiovascular medication for efficacy, adherence to treatment, side effect assessment and polypharmacy. Current treatment clinically warranted and to continue withfollowing modifications: - Clonidine 0.1mg daily & continue to use extra tablet as needed 2. Return for follow-up; in the interim, contact the office if new symptoms arise. MAILHOUSE OPERATOR 2 weeks documented in this encounterVan Wert County Hospital Work Phone: 1(408) 158-566207-30-2025 Nuclear medicine Diagnostic study note [facility] Main [place] [address] [place] [address] Nuclear Medicine Report Signed Patient: Epifanio Alvarez MR#: [id number] : 1940 Acct:[id number] Age/Sex: 84 / M ADM Date: Loc: Room: Type: [facility] Attending Dr: Miller Donald MD Copies to: [...] correction of PET images, fused PET CT imageswere generated and reconstructed in axial, sagittal, and [...] accumulation within the salivary glands, liver, spleen, kidneys,bladder, and bowel. PET/PET psma subq tx sb-mt [...] Story M.D. 12/20/2024 2:08 PM Dictation Location: [facility]--24 Transcribed By: [facility] 12/20/24 140 Dictated By: Jordan Story II, MD 12/20/24 140 Signed By: 12/20/[address] [facility] Work Phone: 1(982) 535-648007-17-2025 History of Present illness Narrative* Laura Hensley MD - 12/07/2024 8:45 AM EDT Follow up Diagnosis: Actinic Keratosis Location: left [...] Next Visit: as scheduled documented in this encounterHeartland Behavioral Health ServicesZvgapvopsc69-99-7828 History of Present illness Narrative* Jaqui Bear, MAILHOUSE OPERATOR - 12/03/2024 9:30 AM EDT Images from the original note were not included. [address], [address] [facility], [address] P: [phone] F: [phone] HPI Historian of HPI: patient Epifanio Alvarez [...] or severe back/abd pain. Follow-up with PCP ifno improvement in 3 days. Discussed urinalysis results. Urine sent for culture. Will call with results when available - cefuroxime (Ceftin) 500 MG tablet; Take 1 tablet (500 mg) by mouth every 12 (twelve) hours for 7 days Dispense: 14 tablet; Refill: 0 documented in this encounterHeartland Behavioral Health ServicesBcanvrukvq04-75-0801 History of Present illness Narrative* Juan Guzman DO - 11/27/2024 10:15 AM EDT Subjective Patient ID: Epifanio Alvarez [...] healing very well. Sutures removed without difficulty. Resultsof pathology revealed no evidence of residual tumor at the margin. Assessment/Plan Diagnoses and all orders for this visit: Squamous cell carcinoma of skin of face Comments: Patient doing quite well after surgical intervention. We will have him return as needed. Sunscreen to prevent discoloration Chronic anticoagulation documented in this encounterHeartland Behavioral Health ServicesJzyffuhryj45-33-1125 Evaluation note* Diagnosis Stage 3a chronic kidney disease ([facility]-HCC)- Primary Type 2 diabetes mellitus with other specified complication, without long-term current use of insulin (HCC) Primary hypertension Unspecified essential hypertension PAF (paroxysmal atrial fibrillation) (HCC) Atrial fibrillation Mixed hyperlipidemia Mixed hyperlipidemia Medicare annual wellness visit, subsequent Advance care planning Other specified counseling documented in this encounter [facility] ServicesFcagcpondf21-41-1473 History of Present illness Narrative* Juan Guzman, - 11/09/2024 9:30 AM EDT Subjective Patient [...] History of appendectomy Hyperlipidemia Irritable bowel syndrome 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 COLONOSCOPY 2010 COLONOSCOPY 11/28/[address] [...] and wishes to proceed. documented in this encounterHeartland Behavioral Health ServicesRbfduprvue43-66-7832 History of Present illness Narrative* Laura Hensley [...] limited to risks of scarring, darker or supervisor laboratory animal facility pigmentary changes, recurrence, incomplete removal and infection. [...] results/6 month skin check documented in this encounterHeartland Behavioral Health ServicesMhhjdtyyzh71-34-5477 History of Present illness Narrative* Missy Khoury [...] Mixed hyperlipidemia 7. Paroxysmal atrial fibrillation 8. Hzn-uwtxvsv-mgduxcduc diabetes 9. NZD7OZ1-FNCk score of 4. 10. Long-term anticoagulation with rivaroxaban 11. EKG June 2023-[place] formed PVCs in a pattern of ventricular [...] B-12) 1,000 mcg tablet 1 tablet, Daily yjbgro-mfsfgxwn-nugsxlb (Creon) 24,000-76,000 -120,000 unit capsule 1 capsule, [...] both accurate and complete. documented in this [facility] Work Phone: 1(878) 803-199005-12-2025 Instructions* Patient Instructions* April Love LPN - [...] your visit. BMI normal [facility] Work Phone: 1(420) 793-471004-23-2025 History of Present illness Narrative* Aamir Nance [...] Has skin check scheduled documented in this encounterHeartland Behavioral Health ServicesFtvkjixgma37-55-6869 Evaluation note* Diagnosis PAF (paroxysmal atrial fibrillation) (CMS/HCC)- Primary Atrial fibrillation Stage 3a chronic kidney disease (HCC) ([facility]/HCC) Type 2 diabetes mellitus with other specified complication, without long-term current use of insulin Mixed hyperlipidemia (CMS/HCC) Mixed hyperlipidemia Exocrine pancreatic insufficiency (CMS/HCC) Other specified disease of pancreas Primary hypertension (CMS/HCC) Unspecified essential hypertension documented in this encounter [facility] ServicesBtbeloesze43-75-8465 History of Present illness Narrative* Laura Hensley [...] left upper limb, including shoulder Left Shoulder Milmay macule at biopsy site Skin excision Lesion [...] 1.2 x 1.1 cm Previous accession number: [id number] Follow up: 14 days for s/r documented in this encounterHeartland Behavioral Health [id number] History of Present illness Narrative* Laura Hensley [...] SCC Check Margins: yes Previous accession number: [id number] Shave excision completed today, see procedure note. Return to clinic prior to next scheduled visit for any signs or symptoms of recurrence, reviewed the signs and symptoms. Patient will be notified of results. Next Visit: as scheduled documented in this encounterHeartland Behavioral Health ServicesJlhqaaqtnf84-09-1834 History of Present illness Narrative* Laura Hensley [...] Visit: pending biopsy results documented in this encounterHeartland Behavioral Health ServicesHifkfucndm15-91-9097 History of Present illness Narrative* Laura Hensley [...] upper extremity including shoulder Left Upper Arm Milmay macule at biopsy site. Skin excision Lesion [...] BCC Check Margins: Yes Previous accession number: [id number] 2. Skin neoplasm (2) Left shoulder Erythematous, crusted papule. Right lower leg Erythematous, crusted papule. Biopsies deferred until suture removal due to insurance restrictions. Follow up: 14 days for s/r documented in this encounterHeartland Behavioral Health ServicesKgmalrsfby72-21-1822 History of Present illness Narrative* Nirav Bello, - 05/10/2024 9:30 AM EST Images from the original note were not included. Epifanio Alvarez is a 83 y.o. male presents with chief complaint of Hospital Follow-up (Pt presents hospital follow up at [facility] on 05/03 for hypertension. Pt [...] 10/01/2017 CATARACT EXTRACTION Right 10/28/2017 per in [place], [place]. COLONOSCOPY 2010 COLONOSCOPY 11/28/[address] [...] cloNIDine (CATAPRES) 0.1 mg, As needed Creon [id number] units capsule TAKE 1 CAPSULE IN THE [...] we did have an appointment with the foundry superintendant at [facility], blood pressure was stable at that time. [...] I told him if he continues with Cosmetic Sales Assistant pressure in the next two or three [...] Dictated and not read. documented in this encounterHeartland Behavioral Health ServicesYtsdnwjaqm67-38-0383 History of Present illness Narrative* Missy Khoury [...] Mixed hyperlipidemia 7. Paroxysmal atrial fibrillation 8. Qgr-ydeqaie-mwtmzzugw diabetes 9. IEB2XU4-TRLk score of 4. 10. Long-term anticoagulation with rivaroxaban 11. EKG June 2023-[place] formed PVCs in a pattern of ventricular [...] B-12) 1,000 mcg tablet 1 tablet, Daily cbpshf-iznqbuni-rdvcutt (Creon) 24,000-76,000 -120,000 unit capsule 1 capsule, [...] disease 05/01/2024 PVC (premature ventricular contraction) 01/13/2024 shelter current use of 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 01/13/2024 High [...] long-term current use of insulin (Multi) 10. shelter current use of 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 11. Former [...] exam, discussion and plan. documented in this encounterVan [facility] Work Phone: 1(441) 327-798112-09-2024 Instructions* Patient Instructions* Britney Salgado LPN - [...] time of your visit. documented in this [facility] Work Phone: 1(501) 911-488708-22-2024 History of Present illness Narrative* Missy Khoury [...] Mixed hyperlipidemia 7. Paroxysmal atrial fibrillation 8. Udz-nenpygg-lnaskydgd diabetes 9. VBJ1KN5-KHVa score of 4. 10. Long-term anticoagulation with rivaroxaban 11. 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 Ventricular arrhythmia Nuclear Stress Test 2. PVC (premature ventricular contraction) Transthoracic Echo Complete Holter Or Event Kayaking Instructor Nuclear Stress Test CANCELED: Nuclear Stress Test 3. Paroxysmal atrial fibrillation (Multi) Follow Up In Cardiology magnesium oxide (Mag-Ox) 400 mg (241.3 mg magnesium) tablet Transthoracic Echo Complete metoprolol succinate XL (Toprol-XL) 50 mg 24 hr tablet Holter Or Event Kayaking Instructor CANCELED: Nuclear Stress Test 4. 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 6. High [...] exam, discussion and plan. documented in this [facility] Work Phone: 1(691) 106-228708-22-2024 Instructions* Patient Instructions* Fay Edge CMA - [...] time of your visit. documented in this [facility] Work Phone: 1(991) 415-300302-20-2024 History of Present illness Narrative* Epifanio Davis [...] by mouth once daily., Disp: , Rfl: vlpzjx-yotayscc-trzwvuk (Creon) 24,000-76,000 -120,000 unit capsule, Take 1 [...] exam, discussion and plan. documented in this encounterVan [facility] Work Phone: 1(573) 316-762602-20-2024 Instructions* Patient Instructions* Dominick Suazo MA - [...] time of your visit. documented in this encounterVan [facility] Work Phone: 1(660) 924-446706-27-2023 Evaluation note* Encounter Date Diagnosis Assessment Notes Treatment Notes Treatment Clinical Notes Oct, Change in bowel habits (ICD-10 - R19.4) Oct,iverticulosis (ICD-10 - K57.90) Oct,IBS (irritable bowel syndrome) (ICD-10 - K58.9) Oct,ancreatic insufficiency (ICD-10 - K86.89) [facility] Other 02-21-2023 History of Present illness Narrative* [...] necessary and we suggest follow-up next year -[facility] [address] DO Work Phone: Evaluation noteNo assessment information available [facility] Work Phone: Evaluation noteNo InformationNokansas city [facility] [employer] Other Evaluation note* Diagnosis Benign essential hypertension- Primary Essential hypertension, benign Mixed hyperlipidemia Paroxysmal atrial fibrillation (CMS/HCC) Atrial fibrillation Former smoker Personal history of tobacco use, presenting hazards to health documented in this encounter [facility] Work Phone: Evaluation note* Diagnosis Encounter [...] without long-term current use of insulin (Multi) shelter current use of 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 Former smoker Personal history of tobacco use, presenting hazards to health Body mass index (BMI) of 23.0 to 23.9 in adult documented in this encounter [facility] Work Phone: Evaluation note* Diagnosis Ventricular arrhythmia- Primary Unspecified cardiac dysrhythmia PVC (premature ventricular contraction) Other premature beats Paroxysmal atrial fibrillation (Multi) Atrial fibrillation 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 High risk medication use Mixed hyperlipidemia Uncontrolled hypertension Former smoker Personal history of tobacco use, presenting hazards to health Type 2 diabetes mellitus without complication, without long-term current use of insulin (Multi) Stage 3a chronic kidney disease (Multi) Prostate cancer (Multi) Malignant neoplasm of prostate Abnormal electrocardiogram (ECG) (EKG) documented in this encounter [facility] Work Phone: Evaluation note* Diagnosis PVC (premature ventricular contraction) Other premature beats 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 Ventricular arrhythmia Unspecified cardiac dysrhythmia Abnormal electrocardiogram (ECG) (EKG) documented in this encounter [facility] Work Phone: Evaluation note* Diagnosis PVC (premature ventricular contraction) Other premature beats Paroxysmal atrial fibrillation (Multi) Atrial fibrillation documented in this encounter [facility] Work Phone: Evaluation note* Diagnosis Primary hypertension (CMS/HCC)- Primary Unspecified essential hypertension PAF (paroxysmal atrial fibrillation) ([facility]/HCC) Atrial fibrillation Stage 3a chronic kidney disease (HCC) ([facility]) Type 2 diabetes mellitus with other specified complication, without long-term current use of insulin ([facility]) documented in this encounter [facility] HealthcareEvaluation note* Diagnosis Allergic sinusitis- Primary Type 2 diabetes mellitus with other specified complication, without long-term current use of insulin ([facility]) Primary hypertension ([facility]) Unspecified essential hypertension PAF (paroxysmal atrial fibrillation) ([facility]) Atrial fibrillation Exocrine pancreatic insufficiency ([facility]/HCC) Other specified disease of pancreas Stage 3a chronic kidney disease (HCC) ([facility]) Mixed hyperlipidemia ([facility]) Mixed hyperlipidemia Chest pain, unspecified type documented in this encounter [facility] HealthcareEvaluation note* Diagnosis Basal cell carcinoma (BCC) of skin of left upper extremity including shoulder- Primary Skin neoplasm Neoplasm of unspecified nature of bone, soft tissue, and skin documented in this encounter [facility] HealthcareEvaluation note* Diagnosis Neoplasm of unspecified behavior [...] in this encounter [facility]* Diagnosis Paroxysmal atrial fibrillation (Multi) [...] hazards to health documented in this encounter [facility] Work Phone: Evaluation note* Diagnosis Seborrheic keratosis- Primary Lentigines Actinic keratosis Neoplasm of unspecified behavior of bone, soft tissue, and skin History of malignant neoplasm of skin Personal history of other malignant neoplasm of skin documented in this encounter [facility]Evaluation note* Diagnosis Chronic anticoagulation- Primary Encounter for long-term (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 of anticoagulants Squamous cell carcinoma of skin of face Other malignant neoplasm of skin of other and unspecified parts of face documented in this encounter [facility] HealthcareEvaluation note* Diagnosis Squamous cell carcinoma of skin of face- Primary Other malignant neoplasm of skin of other and unspecified parts of face Chronic anticoagulation Encounter for long-term (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 of anticoagulants documented in this encounter [facility]* Diagnosis Actinic keratosis- Primary Spitting suture, initial encounter documented in this encounter [facility] note* Diagnosis Acute cystitis with hematuria- Primary Dysuria documented in this encounter [facility] HealthcareEvaluation note* Diagnosis Primary hypertension Unspecified essential hypertension documented in this encounter [facility] Work Phone: Evaluation note* Diagnosis BMI 22.0-22.9, adult- Primary Primary hypertension Unspecified essential hypertension 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 documented in this encounter [facility] Work Phone: Evaluation note* Diagnosis 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 documented in this encounter [facility] HealthcareHistory general Narrative - Reported* Type Description Date Medical History diabetes mallitus Medical Historyhigh blood pressureMedical HistoryappendectomyMedical History PalpitationsMedical HistoryMalignant neoplasm of prostateMedical History Irritable bowel syndromeMedical HistoryDiabetes mellitus without mention of complication, type II or unspecified type, not stated as uncontrolledMedical HistoryBenign essential hypertensionMedical HistoryPre-diabetesMedical History HyperlipidemiaMedical HistoryEssential hypertension, benignMedical History cancer, squamous cellMedical Historybasal cell carcinomaMedical HistoryH/O prostatectomyMedical HistoryDepressionMedical HistoryBCC removed from left upper lip, Mohs 2Surgical HistoryappendectomySurgical Historyprostatectomy Surgical HistoryProcedure:prostatectomySurgical HistoryProcedure:Appendectomy 1952Surgical HistoryProcedure:Back surgerySurgical HistoryProcedure:Knee replacementSurgical HistoryProcedure:35 Radiation Treatments,6- 7;Disease:Reoccurance Prostrate Cancer 39334Torsvbvb History Procedure:kqbcsimzcrk4000Xghjuifp HistoryColonoscopy per Dr. Yu.11-27-16 Surgical HistoryLeft Cataract icoqyou3-94-23Cspwhutq HistoryRight cataract surgery per in [place], [place].7-7-23Nnukzxqw HistoryMohs repair / left upper lip/18/Hospitalization Historysee above [facility] Other History of Present illness NarrativeReturns in [...] we suggest continued therapy as before without change.-[facility] [address] DO Work Phone: Hospital Discharge [...] the incision. PLEASE NOTIFY OUR OFFICE at [phone] if you: -Develop a fever of 101 [...] rate. FOLLOW UP -Call the office at [phone] for a follow up appointment 1 week. * AFTER HOURS PHONE NUMBER [phone] *[facility] Work Phone: Hospital Discharge instructions Additional Instructions No exertional activity Antibiotic ointment to the wound 3 times per day Tylenol or Motrin for pain Call the office for any questions or concerns Follow-up in the office as scheduledGen[facility] Work Phone: Reason for referral (narrative)No reason for referral information availableGenesis Hospital Work Phone: Advance Directives Advance Directive Response [...] Family Member Name Dates Details Bradycardia: Father Status:ActiveFamily history of cardiac pacemaker: Father(V17.49, Z82.49) Status:Active Relationship Condition Age at Onset Recorded Date/T deidre father Coronary artery disease Unknown Unknown Family Member Name Dates Details Family history of cardiac pa cemaker: Father(V17.49, Z82.49) Status:ActiveBradycardia: Father Status:Active Unknown Family Member Name Dates Details Family history of cardiac pa cemaker: Father(V17.49, Z82.49) Status:ActiveBradycardia: Father Status:Active Relationship Condition Age at Onset Recorded Date/T deidre father Coronary artery disease Unknown fatherDeceasedUnknownNot SpecifiedDeceasedUnknown Relationship Condition Age at Onset Recorded Date/T deidre father Coronary artery disease Unknown DeceasedUnknownmotherDeceasedUnknown Relationship Condition Age at Onset Recorded Date/T deidre father Coronary artery disease Unknown DeceasedUnknownMalignant neoplasm of colonUnknownmotherDeceasedUnknown Summary Purpose Reason for Referral SpecialtyDiagnoses / ProceduresReferred By ContactReferred To ContactRadiology Diagnoses PVC (premature ventricular contraction) 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 Ventricular arrhythmia Abnormal electrocardiogram (ECG) (EKG) Procedures Nuclear Stress Test Nuclear Stress Test CHG MYOCARDIAL SPECT MULTIPLE STUDIES Missy Khoury MD [address] [place] [address] Referral IDStatusReasonStart DateExpiration DateVisits RequestedVisits [id number] Perform Procedure /[id number] / ProceduresReferred By ContactReferred To ContactCardiology Diagnoses PVC (premature ventricular contraction) Paroxysmal atrial fibrillation (Multi) Procedures 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 Event Kayaking 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 Missy Khoury MD [address] [place] [address] Referral IDStatusReasonStart DateExpiration DateVisits RequestedVisits [id number] Review/[id number] / ProceduresReferred By ContactReferred To ContactCardiology Diagnoses PVC (premature ventricular contraction) Paroxysmal atrial fibrillation (Multi) Procedures Transthoracic Echo Complete MA ECHO TTHRC R-T 2D W/WOM-MODE COMPL SPEC&COLR D Missy Khoury MD [address] [place] [address] Referral IDStatusReasonStart DateExpiration DateVisits RequestedVisits [id number] Perform Procedure /[id number] / ProceduresReferred By ContactReferred To ContactCardiology Diagnoses Paroxysmal atrial fibrillation (Multi) Procedures Follow Up In Cardiology Missy Khoury MD [address] [place] [address] Missy Khoury MD [address] [place] [address] Referral IDStatusReasonStart DateExpiration DateVisits RequestedVisits [id number]/22/20248/22/[id number] / Procedures Referred By ContactReferred To Contact Diagnoses Paroxysmal atrial fibrillation (CMS/HCC) Procedures ECG 12 Lead Epifanio Davis MD [address] [place] [address] Referral IDStatusReasonStart DateExpiration DateVisits RequestedVisits [id number]/20/20242/19/[id number] / Procedures Referred By ContactReferred To ContactCardiology Diagnoses Paroxysmal atrial fibrillation (CMS/HCC) Procedures Follow Up In Cardiology Epifanio Davis MD [address] [place] [address], [address] [address] Epifanio Davis MD [address] [place] [address], [address] [address] Referral IDStatusReasonStart DateExpiration DateVisits RequestedVisits [id number]/20/20242/19/202511 Additional Source Comments Care Teams (unrecognized sec tion and content) Team Status: Inactive Member Role Status Dates Nirav Bello DO Primary Care Provider Active Tania Rome ProviderActiveLisa Cordon ProviderActive Team Status: Active Member Role Status Dates Shonna Sim DO Family Provider Active Titi Schofield Care ProviderActive Team Status: Inactive Member Role Status Dates Nirav Bello DO Primary Care Provider Active Shonna Sim DOFamily ProviderActiveImad Asaad , MDAttending Provider ActiveTeam MemberRelationshipSpecialtyStart DateEnd Date Nirav Bello DO [address] [place] [address] PCP - General05/24/99 Team Status: Inactive Member Role Status Dates Nirav Bello DO Primary Care Provider Active Start: September 13, 2023 End: September 13, 2023NON STAFFAttending ProviderActiveStart: September 13, 2023 End: September 13, 2023Team MemberRelationshipSpecialtyStart DateEnd Date Nirav Bello DO [address] [place] [address] PCP - [employer]05/24/20 Nirav Bello DO [address] [place] [address] PCP - GeneralInternal Medicine11/10/22 Marianne Davis MD [address] [place] [address] Referring OwkzjommsOhotlvbcyw43/20/23Team MemberRelationshipSpecialtyStart Date End Date Nirav Bello DO [address] [place] [address] PCP - Aet05/24/20 Nirav Bello DO [address] [place] [address] PCP - GeneralInternal Medicine11/10/22 Marianne Davis MD [address] [facility] [address] [place] [address] Referring VlrztaviuMxlpahpdsw84/20/23Team MemberRelationshipSpecialtyStart Date End Date Nirav Bello DO [address] [place] [address] PCP - General05/24/99Team MemberRelationshipSpecialtyStart DateEnd Date Nirav Bello DO [address] [place] [address] PCP - General05/24/99Team MemberRelationshipSpecialtyStart DateEnd Date Nirav Bello DO [address] [place] [address] PCP - General05/24/99Team MemberRelationshipSpecialtyStart DateEnd Date Nirav Bello DO [address] [place] [address] PCP - General05/24/99Team MemberRelationshipSpecialtyStart DateEnd Date Nirav Bello DO [address] [place] [address] PCP - General05/24/99Team MemberRelationshipSpecialtyStart DateEnd Date Nirav Bello DO [address] [place] [address] PCP - General1/1/00Team MemberRelationshipSpecialtyStart DateEnd Date Nirav Bello DO [address] [place] [address] PCP - General05/24/99Team MemberRelationshipSpecialtyStart DateEnd Date Nirav Bello DO [address] [place] [address] PCP - [employer]05/24/20 Nirav Bello DO [address] [place] [address] PCP - GeneralInternal Medicine11/10/22 Marianne Davis MD [address] [place] [address], [place] [address] Referring UxdqhwhobJjjxstffws60/20/23Team MemberRelationshipSpecialtyStart Date End Date Nirav Bello DO [address] [place] [address] PCP - [employer]05/24/20 Nirav Bello DO [address] [place] [address] PCP - GeneralInternal Medicine11/10/22 Marianne Davis MD [address] [place] [address] Referring GvyvejnivTwvkwvidjr74/20/23Team MemberRelationshipSpecialtyStart Date End Date Nirav Bello DO [address] [place] [address] PCP - [employer]05/24/20 Nirav Bello DO [address] [place] [address] PCP - GeneralInternal Medicine11/10/22 Marianne Davis MD [address] [place] [address] Referring OzsnwvkxiEytjnzqitp45/20/23Team MemberRelationshipSpecialtyStart Date End Date Nirav Bello DO [address] [place] [address] PCP - [employer]05/24/20 Nirav Bello DO [address] [place] [address] PCP - GeneralInternal Medicine11/10/22 Marianne Davis MD [address] [place] [address] Referring TmjcpueixWfnxzdhyyu60/20/23Team MemberRelationshipSpecialtyStart Date End Date Nirav Bello DO [address] [place] [address] PCP - [employer]05/24/20 Nirav Bello DO [address] [place] [address] PCP - GeneralInternal Medicine11/10/22 Marianne Davis MD 703 [facility] [address] [place] [address] Referring UetkxdbskWzdoiecdup92/20/23Team MemberRelationshipSpecialtyStart Date End Date Nirav Bello DO [address] [place] [address] PCP - [employer]05/24/20 Nirav Bello DO [address] [place] [address] PCP - GeneralInternal Medicine11/10/22 Marianne Davis MD 703 [facility] [address] [place] [address] Referring PzzedexhbXxyexbugze72/20/23 Team Status: Inactive Member Role Status Dates Nirav Bello DO Primary Care Provider Active Start: August 09, 2024 End: August 09, 2024[facility] MDAjosé miguel ProviderActiveStart: August 09, 2024 End: August 09, 2024Team MemberRelationshipSpecialtyStart DateEnd Date Nirav Bello DO [address] [place] [address] PCP - [employer]05/24/20 Nirav Bello DO [address] [place] [address] PCP - GeneralInternal Medicine11/10/22 Marianne Davis MD 703 [facility] [address] [place] [address] Referring TmexgjpauMhzhnuuhkq93/20/23Team MemberRelationshipSpecialtyStart Date End Date Nirav Bello DO [address] [place] [address] PCP - [employer]05/24/20 Nirav Bello DO [address] [place] [address] PCP - GeneralInternal Medicine11/10/22 Marianne Davis MD 703 [facility] [address] [place] [address] Referring FmtbyetapBfmrxjtral23/20/23Te MemberRelationshipSpecialtyStart Date End Date Nirav Bello DO [address] [place] [address] PCP - [facility]05/24/20 Nirav Bello DO [address] [place] [address] PCP - GeneralInternal Medicine11/10/22 Marianne Davis MD 703 [facility] [address] [place] [address] Referring GwriwfwaiKkzmuqmrmi23/20/23Te MemberRelationshipSpecialtyStart Date End Date Nirav Bello DO [address] [place] [address] PCP - General05/24/99Te MemberRelationshipSpecialtyStart DateEnd Date Nirav Bello DO [address] [place] [address] PCP - [employer]05/24/20 Nirav Bello DO [address] [place] [address] PCP - GeneralInternal Medicine11/10/22 Marianne Davis MD [address] [place] [address] Referring JtvjnwwzsYoakhqjuaq21/20/23Team MemberRelationshipSpecialtyStart Date End Date Nirav Bello DO [address] [place] [address] PCP - [employer]05/24/20 Nirav Bello DO [address] [place] [address] PCP - GeneralInternal Medicine11/10/22 Marianne Davis MD [address] [place] [address], [place] [address] Referring IkwbdsmprYbfhswjheq05/20/23Te MemberRelationshipSpecialtyStart Date End Date Nirav Bello DO [address] [place] [address] PCP - [employer]05/24/20 Nirav Bello DO [address] [place] [address] PCP - GeneralInternal Medicine11/10/22 Marianne Davis MD [address] [place], [place] [address], [place] [address] Referring ExdiuwunzRorzigbyzg74/20/23Team MemberRelationshipSpecialtyStart Date End Date Nirav Bello DO [address] [place] [address] PCP - [employer]05/24/20 Nirav Bello DO [address] [place] [address] PCP - GeneralInternal Medicine11/10/22 Marianne Davis MD [address] [place] [address] Referring YcftftrwfShqriuvjdl13/20/23Team MemberRelationshipSpecialtyStart Date End Date Nirav Bello DO [address] [place] [address] PCP - [facility]05/24/20 Nirav Bello DO [address] [place] [address] PCP - GeneralInternal Medicine11/10/22 Marianne Davis MD [address] [address] Referring RbgonuyjsLjhjeusyya78/20/23 Team Status: Active Member Role Status Dates Nirav Bello DO Primary Care Provider Active Team Status: Inactive Member Role Status Dates Nirav Bello DO Primary Care Provider Active Start: November 14, 2024 End: November 14, 2024Juan Guzman DOAttending ProviderActiveStart: November 14, 2024 End: November 14, 2024 Team Status: Inactive Member Role Status Dates Nirav Bello DO Primary Care Provider Active Start: November 20, 2024 End: November 20, 2024Juan Guzman DOAttending ProviderActiveStart: November 20, 2024 End: November 20, 2024Team MemberRelationshipSpecialtyStart DateEnd Date Nirav Bello DO [address] [place] [address] PCP - [employer]05/24/20 Nirav Bello DO [address] [place] [address] PCP - GeneralInternal Medicine11/10/22 Marianne Davis MD [address] [address] Referring LeuyfzfxlPopmzzgwrs85/20/23Team MemberRelationshipSpecialtyStart Date End Date Nirav Bello DO [address] [place] [address] PCP - [employer]05/24/20 Nirav Bello DO [address] [place] [address] PCP - GeneralInternal Medicine11/10/22 Marianne Davis MD [address] [address] Referring WfhjhflkpOymbyqphgv18/20/23Team MemberRelationshipSpecialtyStart Date End Date Nirav Bello DO [address] [place] [address] PCP - [employer]05/24/20 Nirav Bello DO [address] [place] [address] PCP - GeneralInternal Medicine11/10/22 Marianne Davis MD 703 [facility] [address] [place] [address] Referring NqzrcpohwYpnxvoriyj75/20/23 Team Status: Inactive Member Role Status Dates Nirav Bello DO Primary Care Provider Active Start: December 20, 2024 End: December 20, 2024Jomaria elena Donald [facility] ProviderActiveStart: December 20, 2024 End: December 20, 2024Team MemberRelationshipSpecialtyStart DateEnd Date Blayne Givens MD [address] [place] [address] PCP - GeneralInternal Medicine12/26/24Team MemberRelationshipSpecialtyStart Date End Date Blayne Givens MD [address] [place] [address] PCP - GeneralInternal Medicine12/26/24Team MemberRelationshipSpecialtyStart Date End Date Nirav Bello DO [address] [place] [address] PCP - [employer]05/24/20 Blayne Givens MD [address] [place] [address] PCP - GeneralInternal Medicine01/01/25 Marianne Davis MD [address] [place] [address] [address] [place] [address] Referring KmabxadyiLccamnksdp23/20/23Team MemberRelationshipSpecialtyStart Date End Date Nirav Bello DO [address] [place] [address] PCP - [employer]05/24/20 Blayne Givens MD [address] [place] [address] PCP - GeneralInternal Medicine01/01/25 Marianne Davis MD [address] [place] [address] [address] [place] [address] Referring EqejmcxigRaclfjscja00/20/23Te MemberRelationshipSpecialtyStart Date End Date Nirav Bello DO [address] [place] [address] PCP - [employer]05/24/20 Blayne Givens MD [address] [place] [address] PCP - GeneralInternal Medicine01/01/25 Marianne Davis MD [address] [place] [address] Referring XpfkcbhmbUtlwrcivqu25/20/23 Goals (unrecognized section and content) Goals may [...] section and content) DATE CREATED AUTHOR 07/15/2022 [facility] DATE CREATED AUTHOR AUTHOR'S ORGANIZ ATION 07/15/2022 [employer] DATE CREATED AUTHOR AUTHOR'S ORGANIZ ATION 09/10/2022 [facility] DATE CREATED AUTHOR AUTHOR'S ORGANIZ ATION 02/25/2024 [facility] DATE CREATED AUTHOR AUTHOR'S ORGANIZ ATION 11/18/2024 [facility] DATE CREATED AUTHOR AUTHOR'S ORGANIZ ATION 12/29/2024 [facility] DATE CREATED AUTHOR AUTHOR'S ORGANIZ ATION 01/10/[address] [facility] DATE CREATED AUTHOR AUTHOR'S ORGANIZ ATION 01/19/2025 [facility] EPIC REASON FOR VISIT (unrecogniz ed section and content) ReasonCommentsFollow-up5 month Follow up for HypertensionSpecialtyDiagnoses / ProceduresReferred By ContactReferred To ContactCardiology Diagnoses Paroxysmal atrial fibrillation (Multi) Procedures Follow Up In Cardiology Missy Khoury MD 917 [facility] [address] [place] [address] Phone: tel: fax: Missy Khoury MD 917 [facility] [address] [place] [address] Phone: tel: fax: Referral IDStatusReasonStart DateExpiration DateVisits RequestedVisits [id number]/9/202412/9/033425QxjwraPmitzcvhOxqbxy Exam SpecialtyDiagnoses / ProceduresReferred By ContactReferred To Contact Diagnoses Paroxysmal atrial fibrillation (CMS/HCC) Procedures ECG 12 Lead Epifanio Davis MD 703 [facility] 2, [address] [address] Referral IDStatusReasonStart DateExpiration DateVisits RequestedVisits [id number]/20/20242/[id number]-buJqeqlk up after testingReferral IDStatusSentara [facility] DateExpiration DateVisits Requested Visits [id number]/22/20248/22/[id number]-siQas onSpecialtyDiagnoses / ProceduresReferred By ContactReferred To Contact Radiology Diagnoses PVC (premature ventricular contraction) 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 Ventricular arrhythmia Abnormal electrocardiogram (ECG) (EKG) Procedures Nuclear Stress Test Nuclear Stress Test CHG MYOCARDIAL SPECT MULTIPLE STUDIES Missy Khoury MD [address] [address] Referral IDStaCommunity [facility] DateExpiration DateVisits RequestedVisits [id number] Perform Procedure [id number] / ProceduresReferred By ContactReferred To ContactCardiology Diagnoses PVC (premature ventricular contraction) Paroxysmal atrial fibrillation (Multi) Procedures Transthoracic Echo Complete MA ECHO TTHRC R-T 2D W/WOM-MODE COMPL SPEC&COLR D Missy Khoury MD [address] [address] Referral IDStatusSentara [facility] DateExpiration DateVisits RequestedVisits [id number] Perform Procedure [id number] Follow-upPatient presents today for a [facility] follow up 01/10/24 for hypertension. He was in the ER the previous week for a-fib. He was started on Abiraterone recently and his BP went up consistently in the 160s. He sees cardiology Thurs for the a-fib.[facility] Follow-upPt presents hospital follow up at [facility] on 05/03 for hypertension. Pt states he BP still feels elevated, although he hasn't been checking he BP at home. Pt denies chest pain, SOB or blurry visionReasonComments ExcisionReasonCommentsFollow-upReasonCommentsHypertensionPatient's BP readings 190/90 in the evenings. Patient was seen at [facility] 08/01/24 for hypertension and Norvasc 5mg one tab every AM was started. Had follow up ER visit with Olga 08/04/24ReasonCommentsSuture / Staple RemovalReasonCommentsSuspicious Skin LesionNew Problem : SCC left cheekSpecialtyDiagnoses / ProceduresReferred By ContactReferred To ContactOtolaryngology Diagnoses Squamous cell carcinoma of skin of face Procedures [facility] OFFICE/OUTPATIENT [facility] [place] 60 MINUTES Laura Hensley MD [address] [place] [address] Phone: tel: fax: Juan Guzman DO [address] [facility] [place] [address] Phone: tel: fax: Referral IDStatusReasonStart DateExpiration DateVisits RequestedVisits [id number] Specialty Services Required /202511ReasonCommentsMedicare Annual Wellness Visit SubsequentPt is being seen today for his annual MWV and managment of his chronic conditions. Pt had lab work done in preparations for todays visit, results and recommendations will be reviewed with them.ReasonCommentsPost-opPost op Exc SCC left cheek ReasonCommentsFollow-upPatient here for 8 week recheck of blood pressure; c/o occasional headache and tightness in his neck.SpecialtyDiagnoses / Procedures Referred By ContactReferred To ContactCardiology Diagnoses Primary hypertension Procedures Follow Up In Cardiology Missy Khoury MD [address] [place] [address] Phone: tel: fax: Missy Khoury MD [address] [place] [address] [address] [place] [address] Phone: tel: fax: Referral IDStatusReasonStart DateExpiration DateVisits RequestedVisits [id number]/12/20255/12/549936EjajrrIzrdikynOgkuli-cm1 week Follow up for HypertensionSpecialtyDiagnoses / ProceduresReferred By Contact Referred To ContactCardiology Diagnoses Primary hypertension Procedures Follow Up In Cardiology Seng Angeles, [employer] [address] [facility] 2[address] [place] [address] Phone: tel: fax: Referral IDStatusReasonStart DateExpiration DateVisits RequestedVisits [id number]/5/20258/5/703932HflibaPqlzqexyQpdz Micrographic Surgery FOR RECORDS PERTAINING TO PATIENTS [...] BE BASED ON THE PRIMARY CLINICAL RECORDS. [facility]. provides no warranty or guarantee of the accuracy or completeness of information in this document.
[2025-03-14 15:07] LABS: Hematocrit 37.0 % (42.0-54.0); Hemoglobin 12.1 g/dL (14.0-18.0); Immature Granulocytes Abs Auto 0.04 10^3/uL (0.00-0.03); Immature Granulocytes Pct Auto 0.5 % (0.0-0.5); Lymphocytes Absolute Auto 2.1 10^3/uL (1.2-3.8); Mean Corpuscular HGB Conc 32.7 g/dL (29.9-35.2); Mean Corpuscular Hemoglobin 30.8 pg (25.9-34.0); Mean Corpuscular Volume 94.1 fL (80.0-94.0); Platelet Count 181 10^3/uL (150-450); Red Blood Count 3.93 10^6/uL (4.70-6.10); White Blood Count 7.6 10^3/uL (4.0-11.0)
== END 2025-03-14 14:31 | disposition home or self-care (01) ==
LOC: LAB 14:33
PROVIDERS: PCP Internal Medicine
DX: C61 Malignant neoplasm of prostate (principal)
CPT/HCPCS: 36415; 85025

== ENCOUNTER 2025-04-30 07:22 | Outpatient (OUT) | payer MEDICARE, SELFPAY ==
--- OUTSIDE RECORDS SUMMARY | 2011-03-03 19:00 | XMS_ITS | Continuity of Care Document ---
Author Organization [facility] Address [address] [place] [address] Phone Care Team Providers Care Multicultural Manager Name Role Phone Hilario Bolanos Unavailable Unavailable Procedures Procedure Date Admin influenza virus vac FLU VACC PRSV FREE INC ANTIG Admin influenza virus vac Advance Directives Directive Yes / No Effective Date File Name No Information Encounters Encounter Description Practice Location Reason(s) For Visit Diagnoses Date Provider Providers Copied on Encounter [facility], [address] [place] [address], [id number], tel:[phone] [facility] [place] No Information Aramis WALKER Hilario. [address] [place] [address], [id number], [place]. tel:[phone] [facility], [address] [place] [address], [id number], tel:[phone] Flu No Information Aramis WALKER Hilario. [address] [place] [address], [id number], . tel:[phone] Family History Family Member Type Diagnosis Age At Onset No Information Payers Payer name Insurance type Covered libertarian ID Authoriza tion(s) Aetna Medicare Advantage BABAR [id number] Social History Type Description Quantity Date Captured Comments Sex Male Smoking Status No Information Chief Complaint And Reason For Visit No [...]
--- OUTSIDE RECORDS SUMMARY | 2025-04-30 07:27 | XMS_ITS | CCD ---
Author Organization [facility] Care Team Providers Care Dancing Master Name Role Phone Nirav Bello Primary Care Provider Ryan Negron Attending Provider Nirav Bello Unavailable Unavailable Unavailable DO Nirav Bello Primary Care Provider DO Juan Guzman Attending Provider Dr. Nirav Bello Primary Care Unavai armani Davis II, Dr. Epifanio Black Attending Unavailable Ryan GARCIA, Dr. Epifanio Black Referring Unavailable MISC, DR SHERIFF Attending Unavailable MISC, DR SHERIFF Consulting Unavailable MISC, DR SHERIFF Admitting Unavailable ACE, DR RIOS Primary Care Unavailable ACE, DR RIOS Primary Care Unavailable ACE, DR RIOS Admitting Unavailable ACE, DR RIOS Attending Unavailable DR NIRAV BELLO Consulting Unavailable DR NIRAV BELLO Primary Care Unavailable MISC, DR SHERIFF Admitting Unavailable MISC, DR SHERIFF Attending Unavailable MISC, DR SHERIFF Consulting Unavailable ACE, DR RIOS Primary Care Unavailable ACE, DR RIOS Admitting Unavailable ACE, DR RIOS Attending Unavailable ACE, DR RIOS Consulting Unavailable ACE, DR RIOS Admitting Unavailable ACE, DR RISO Attending Unavailable ACE, DR RIOS Consulting Unavailable DR NIRAV BELLO Primary Care Unavailable Jj Garcia Unavailable DO Nirav Bello Primary Care Provider MD Jj Garcia Attending Provider Nirav Bello DO Primary Care Provider [phone] DO Nirav Bello Primary Care Provider [phone] NON STAFF Attending Provider Unavailable KHOURY, MISSY Referring Unavailable ACE, NIRAV A Primary Care Unavailable KHOURY, MISSY Referring Unavailable ACE, NIRAV A Primary Care Unavailable Ace Tulio WALKERrey A Unavailable Ace Nirav WALKER A Primary Care Provider Ryan ZAMORA, Geofflialexa Unavailable [phone] Nirav Bello DO Primary Care Provider [phone] Colin Thompson MD Attending Provider [phone] Nirav Bello DO Primary Care Provider [phone] Juan Guzman DO Attending Provider [phone] Miller Donald MD Attending Provider Blayne Givens MD Primary Care Provider [phone] Miller Donald Admitting Unavailable Miller Donald Attending Unavailable Ace, Nirav Primary Care Unavailable Ace, Nirav Primary Care Unavailable Colin Thompson Admitting Unavailable Colin Thompson Attending Unavailable Nirav Bello Primary Care Unavailable Juan Guzman Admitting Unavailable Juan Guzman Attending Unavailable Nirav Bello Primary Care Unavailable Juan Guzman Admitting Unavailable Juan Guzman Attending Unavailable SENG ANGELES Attending Unavailable MAIA, MISSY Referring Unavailable BLAYNE GIVENS Primary Care Unavailable SENG ANGELES Attending Unavailable SENG ANGELES Referring Unavailable BLAYNE GIVENS Primary Care Unavailable MAIA, MISSY Attending Unavailable ACE, NIRAV A Primary Care Unavailable KHOURY, MISSY Referring Unavailable ACE, NIRAV A Primary Care Unavailable KHOURY, MISSY Attending Unavailable KHOURY, MISSY Referring Unavailable ACE, NIRAV A Primary Care Unavailable KHOURY, MISSY Attending Unavailable KHOURY, MISSY Referring Unavailable ACE, NIRAV A Primary Care Unavailable Blayne Givens MD Primary Care Provider [phone] Ryan ZAMORA, Marianne Unavailable Nirav Bello DO Primary Care Provider LAURA HENSLEY Attending Unavailable PETITTI, LAURA A Attending Unavailable PETITTI, LAURA A Attending Unavailable MELLO DALEYSSGOKUL Roman Attending Unavailable PETITTI, LAURA A Attending Unavailable NIRAV BELLO Attending Unavailable NIRAV BELLO Referring Unavailable AAMIR NANCE Attending Unavailable PETITTI, LAURA A Attending Unavailable JUAN GUZMAN Attending Unavailable PUSHPA, LAURA Vargas Referring Unavailable NIRAV BELLO Attending Unavailable JUAN GUZMAN Attending Unavailable PETITTI, LAURA A Attending Unavailable CECILIA GARCIA Attending Unavailable ALLISON BOUDREAUX Attending Unavailable PETITTI, LAURA A Attending Unavailable NIRAV BELLO Attending Unavailable NIRAV BELLO Referring Unavailable Unavailable Unavailable Unavailable Allergies Allergy ClassificationReported Allergen(s)Allergy TypeDate of OnsetReaction(s) Facility (4 sources)Sulfonamides (Antibiotic); Translations: [Sulfa Drugs]Allergy to drug (finding)[place] [id number] DO Work Phone: (17 sources)Sulfonamides (Antibiotic); Translations: [SULFA (SULFONAMIDE ANTIBIOTICS)]Allergy to errfitaoz28-18-9544LrlvmMewgwencmTr[facility] (1 source)Sulfonamides (Antibiotic)Drug allergy (disorder)[facility] (20 sources)Substance with sulfonamide structure and antibacterial mechanism of action (substance)Drug oocwlid79-80-9474KaxrqWVBC [facility] (13 sources)abiraterone; Translations: [ABIRATERONE]Drug Wnahgja64-66-6641[facility] (20 sources)SulfanilamideAllergy to ypcrefxcx27-65-4458VfgdgowPUBH Healthcare Medications Current Medications MedicationDrug Class(es)DatesSig (Normalized)Sig (Original)abiraterone acetate 250 mg oral tablet (11 sources)Cytochrome P450 17A1 InhibitorStart: 10-15-2024 End: 15-52-5273vfmdzalbcfn (Zytiga) 250 MG chemo tablet 10/15/2024 11/14/2024 Discontinuedtake 4 tablets by mouth once dailyabiraterone (Zytiga) 250 MG chemo tablet Take 4 tablets by mouth Daily. Swallow whole. Do not eat 2hrs before or 1 hr after. ActiveamLODIPine 5 mg oral tablet (20 sources)Dihydropyridine Calcium Channel BlockerStart: 08-01-2024 End: 89-72-3092wico 1 tablet by mouth once dailyamLODIPine (Norvasc) 5 MG tablet Indications: Primary hypertension Take 1 tablet (5 mg) by mouth Daily 90 tablet 3 08/04/2024 Activeamylase 440476 unt / lipase 15289 unt / protease 30779 unt delayed release oral capsule (20 sources)Start: 05-70-1874Meyff 69770-50157 units capsule Indications: Malignant neoplasm of prostate (HCC) , Exocrine pancreatic insufficiency (HCC) TAKE 1 CAPSULE IN THE MORNING, 1 CAPSULE AT NOON AND 1 CAPSULE INTHE EVENING WITH MEALS 300 capsule 2 03/23/2025 ActiveStart: 00-60-2375lleiwyfbabmc, Gou-Bmyn-Lbwh, (Creon) 61355-90957 units capsule Indications: Malignant neoplasm of prostate (HCC) , Exocrine pancreatic insufficiency (HCC) TAKE 1 CAPSULE IN THE MORNING, 1 CAPSULE AT NOON AND 1 CAPSULE IN THE EVENING WITH MEALS 360 capsule 2 07/03/2024 ActiveStart: 71-02-9022Lpvck 00281-94452 units capsule Indications: Malignant neoplasm of prostate (CMS/HCC) , Exocrine pancreatic insufficiency (CMS/HCC) TAKE 1 CAPSULE IN THE MORNING, 1 CAPSULE AT NOON AND 1 CAPSULE IN THE EVENING WITH MEALS 300 capsule 1 01/17/2024 ActiveStart: 86-72-6775cysgpgidywfe, Iil-Cjyn-Ezno, (Creon) 37243-27035 units capsule Indications: Malignant neoplasm of prostate (CMS/HCC) , Exocrine pancreatic insufficiency (CMS/HCC) Take 1 capsule by mouth in the morning and 1 capsule at noon and 1 capsule in the evening. Take with meals. 270 capsule 1 05/12/2023 ActiveStart: 96-90-9547yres 1 capsule by mouth three times daily feeuug-lssnsefq-gdptltj (Creon) 24,000-76,000 -120,000 unit capsule Take 1 capsule by mouth 3 timesdaily (morning, midday, late afternoon). 11/17/2022 ActiveStart: 03-25-8920Avmjy 32148-57926 UNIT 1 with each meal Orally daily for 30 days Oct, Activeapalutamide 60 mg oral tablet (2 sources)Start: 01-18-2024 End: 37-61-9218Muntlkn 60 MG tablet 01/18/2024 09/04/2024 Discontinued (Therapy completed)ascorbic acid 500 mg oral capsule (15 sources)Vitamin Ctake 1 capsule by mouth once dailyascorbic acid, vitamin C, 500 mg capsule Take 1 capsule by mouth once daily. Activeatorvastatin 20 mg oral tablet (20 sources)HMG-CoA Reductase InhibitorStart: 99-06-0374fxcl 10 mg by mouth once daily at bedtimeStart: 61-55-9996qlumedhaefdx (Lipitor) 20 MG tablet Indications: Mixed hyperlipidemia TAKE 1 TABLET AT NIGHT 90 tablet 3 01/06/2024 ActiveStart: 12-05-2021 End: 30-17-1015kmac 1 tablet by mouth once daily at bedtimeAtorvastatin 10 mg Tablet Discontinued 10 MG PO Daily at bedtime December 05, 2021 12:00am November 14, 2024 1:57pmStart: 07-03-2020 End: 11-02-2021bvzr 0.5 tablet by mouth once dailyatorvastatin (Lipitor) 20 mg tablet Indications: Mixed hyperlipidemia Take 0.5 tablets (10 mg) by mouth once daily. 45 tablet 1 10/02/2024 10/02/2025 ActiveAtorvastatin Calcium 20 MG Oral for 90 Days Activeazithromycin 250 mg oral tablet (2 sources)Macrolide AntimicrobialStart: 03-30-2025 End: 91-87-3255wjyqcyteabzs (Zithromax Z-Herb) 250 MG tablet Indications: Acute bronchitis due to other specified organisms Take 2 tablets (500 mg) on Day 1, followed by 1 tablet (250 mg) once daily on Days 2 through 5. 6 tablet 03/30/2025 04/04/2025 ActiveBacillus coagulans / Inulin (1 source) End: 22-43-2728xsrc 1 capsule by mouth once dailyBACILLUS COAGULANS-INULIN ORAL Take 1 capsule by mouth once daily. 0 07/13/2023 Discontinued (Therapy completed)calcitriol 0.0005 mg oral capsule (20 sources)Vitamin D3 Analogtake 1 capsule by mouth once dailycalcitriol (Rocaltrol) 0.5 MCG capsule Take 0.5 mcg by mouth Daily Activecefuroxime 500 mg oral tablet (5 sources)Cephalosporin AntibacterialStart: 12-03-2024 End: 99-26-6889uxbq 1 tablet by mouth oncecefuroxime (Ceftin) 500 MG tablet Indications: Acute cystitis with hematuria Take 1 tablet (500 mg)by mouth every 12 (twelve) hours for 7 days 14 tablet 12/03/2024 12/10/2024 Active cholecalciferol 0.05 mg oral tablet (20 sources)Vitamin DStart: 23-54-4330yhca 1 tablet by mouth once daily in the morningStart: 49-55-0823edzv 1 tablet by mouth three times weeklyCholecalciferol (Vitamin D3) (Vitamin D3) 50 mcg (2,000 unit) Tablet Active 50 MCG PO 3 Times a week December 05, 2021 12:00amtake 1 capsule by mouth once dailycholecalciferol (Vitamin D-3) 25 MCG (1000 UT) capsule Take 1 capsule (25 mcg) by mouth once daily.ActivecloNIDine hydrochloride 0.1 mg oral tablet (20 sources)Central alpha-2 Adrenergic AgonistStart: 08-09-2024 End: 08-73-4833nrvw 1 tablet by mouth once dailycloNIDine (Catapres) 0.1 mg tablet Indications: Primary hypertension Take 1 tablet (0.1 mg) by mouth once daily. 90 tablet 1 10/02/2024 10/02/2025 ActiveStart: 72-80-5417htnl 1 tablet by mouth twice daily as needed for hypertensioncloNIDine (Catapres) 0.1 MG tablet Indications: Primary hypertension , PAF (paroxysmal atrial fibrillation) (HCC) , Chest pain, unspecified type Take 1 tablet (0.1 mg) by mouth 2 (two) times a day asneeded for high blood pressure 180 tablet 1 05/22/2024 ActiveStart: 31-40-6129bfwk 1 tablet by mouth in the morningcloNIDine (Catapres) 0.1 MG tablet Indications: Primary hypertension (CMS/HCC) , PAF (paroxysmal atrial fibrillation) (CMS/HCC) , Chest pain, unspecified type Take 1 tablet (0.1 mg) by mouth in the morning and 1 tablet (0.1 mg) before bedtime. 180 tablet 1 05/10/2024 ActiveStart: 40-16-3315gbet 1 tablet by mouth in the morningcloNIDine (Catapres) 0.1 MG tablet Indications: Primary hypertension (CMS/HCC) , PAF (paroxysmal atrial fibrillation) (CMS/HCC) , Chest pain, unspecified type Take 1 tablet (0.1 mg) by mouth in the morning and 1 tablet (0.1 mg) before bedtime. 180 tablet 1 05/10/2024 ActiveStart: 05-04-2024 End: 82-04-4288cfcPGYaaz (Catapres) 0.1 MG tablet Take 0.1 mg [...] hydrochloride 20 mg oral tablet (20 sources)AnticholinergicStart: 52-28-9507ghgg 1 tablet by mouth four times daily as needed for paindicyclomine (Bentyl) 20 MG tablet Indications: Other irritable bowel syndrome Take 1 tablet (20 mg)by mouth 4 (four) times a day as needed (abdominal pain or cramps) 120 tablet 3 10/05/2024 ActiveStart: 11-13-2020 End: 36-84-2280hlof 1 capsule by mouth once dailydicyclomine (Bentyl) 10 mg capsule Take 1 capsule (10 mg) by mouth once daily. 11/13/2020 01/13/2024 Discontinued (Therapy completed)fluorouracil 50 mg/ml topical cream (20 sources)Nucleoside Metabolic InhibitorStart: 27-62-4417ctxsyhxwagas (Efudex) 5 % cream Indications: Actinic keratosis Apply to directed areas on the face, and backs of hands twice a day x 14 days. Dispense 30 day supply but only use for 14 days 40 g 2 10/26/2024 ActiveStart: 31-64-2986nhuwbksibpew (Efudex) 5 % cream Indications: Actinic keratosis Apply to affected areas bid x 14 days 40 g 1 04/26/2023 ActiveEfudex 5 % 1 application Externally Twice a day Active fluticasone propionate 0.05 mg/actuat metered dose nasal spray (20 sources)CorticosteroidStart: 60-65-1140Ysjmc: 05-10-2024 End: 63-25-4868vtgw 2 spray(s) nasal route once dailyfluticasone (Flonase) 50 MCG/ACT nasal spray Indications: Allergic sinusitis Administer 2 sprays into each nostril Daily Shake gently. Before first use, prime pump. After use, clean tip and replace cap. 16 g 5 05/10/2024 09/04/2024 Discontinued (Therapy completed)lisinopril 20 mg oral tablet (20 sources)Angiotensin Converting Enzyme InhibitorStart: 12-05-2021 End: 81-49-5625pcdp 1 tablet by mouth in the morninglisinopril 20 MG tablet Indications: Primary hypertension Take 1 tablet (20 mg) by mouth in the morning and 1 tablet (20 mg) before bedtime. 180 tablet 3 04/06/2024 ActiveStart: 02-11-2021 End: 47-66-2836ytpz 2 tablets by mouth once dailylisinopril 20 mg tablet Indications: Essential hypertension Take 2 tablets (40 mg) by mouth once daily. 180 tablet 1 05/01/2024 10/02/2024 Discontinued (Med List Cleanup)Start: 38-01-7321pomb 1 tablet by mouth in the morninglisinopril 20 MG tablet Indications: Primary hypertension (CMS/HCC) Take 1 tablet (20 mg) by mouth in the morning and 1 tablet (20 mg) before bedtime. 180 tablet 3 04/06/2024 Active magnesium oxide 400 mg oral tablet (20 sources)Start: 01-13-2024 End: 51-41-1341fjmw 1 tablet by mouth twice dailymagnesium oxide (Mag-Ox) 400 mg (241.3 mg magnesium) tablet Indications: Paroxysmal atrial fibrillation (Multi) Take 1 tablet (400 mg) by mouth 2 times a day. 180 tablet 3 01/13/2024 01/12/2025 ActiveStart: 01-11-2024 End: 54-26-9118mybq 1 tablet by mouth once dailymagnesium oxide (Mag-Ox) 400 mg (241.3 mg magnesium) tablet Indications: Paroxysmal atrial fibrillation (Multi) Take 1 tablet (400 mg) by mouth once daily. 90 tablet 01/11/2024 01/13/2024 DiscontinuedmetFORMIN hydrochloride 500 mg oral tablet (20 sources)BiguanideStart: 20-21-4143kbvLBSTXK (Glucophage) 500 MG tablet Indications: Type 2 diabetes mellitus with other specified complication, without long-term current use of insulin (HCC) TAKE 1 TABLET IN THE EVENING WITH A MEAL 90 tablet 3 09/22/2024 Spdepl55 hr metoprolol succinate 50 mg extended release oral tablet (20 sources)beta-Adrenergic BlockerStart: 10-02-2024 End: 91-07-7054tfhn 1 tablet by mouth twice dailymetoprolol succinate XL (Toprol-XL) 50 mg 24 hr tablet Indications: Primary hypertension Take 1 tablet (50 mg) by mouth 2 times a day. Do not crush or chew. 180 tablet 1 10/02/2024 10/02/2025 ActiveStart: 01-13-2024 End: 50-92-3569slth 2 tablets by mouth once dailymetoprolol succinate [...] 50 mgbefore bedtime. 07/13/2023 ActiveStart: 07-13-2023 End: 58-99-9142jvtk 1 tablet by mouth once dailymetoprolol succinate XL (Toprol- XL) 50 MG 24 hr tablet Take 50 mg by mouth Daily 07/13/2023 ActiveStart: 02-24-2021 End: 62-90-8808lpno 1 tablet by mouth once daily in the morningMetoprolol Succinate 100 mg tablet extended release 24 hr Discontinued 100 MG PO Every morning 2021 12:00am November 14, 2024 1:54pmmirtazapine 15 mg oral tablet (20 sources)Start: 47-30-8994yvtdxlkgzpe (Remeron) 15 MG tablet Indications: Current mild episode of major depressive disorder without prior episode TAKE 1 TABLET AT BEDTIME 90 tablet 3 01/18/2025 Activemupirocin 0.02 mg/mg topical ointment (3 sources)RNA Synthetase Inhibitor AntibacterialStart: 01-17-2025 End: 54-06-5839vvdfjjoys (Bactroban) 2 % ointment Indications: 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 09/22/2024 11/14/2024 DiscontinuedStart: 93-76-2354tkjg 1 tablet by mouth once daily predniSONE (Deltasone) 5 MG tablet Take 5 mg by mouth Daily 11/05/2023 Active Start: 11-05-2023 End: 68-64-7550cazt 0.5 tablet by mouth once dailypredniSONE (Deltasone) 5 mg tablet Take 0.5 tablets (2.5 mg) by mouth once daily. 11/05/2023 05/01/2024 Discontinued (Therapy completed)rivaroxaban 20 mg oral tablet (20 sources)Factor Xa InhibitorStart: 03-05-2021 End: 44-60-2558nden 1 tablet by mouth once dailyrivaroxaban (Xarelto) 20 mg tablet Indications: Paroxysmal atrial fibrillation (Multi) Take 1 tablet (20 mg) by mouth once daily. 90 tablet 1 10/02/2024 10/02/2025 Activevit A/vit C/vit E/zinc/copper (ICAPS AREDS ORAL) (12 sources) End: 08-80-8157sdk A/vit C/vit E/zinc/copper (ICAPS AREDS ORAL) Take 1 tablet by mouth see administration instructions. 01/09/2025 Discontinued (Therapy completed)vit A/vit C/vit E/zinc/copper (ICAPS AREDS ORAL) Take 1 tablet by mouth see administration instructions. Activevit A/vit C/vit E/zinc/copper (ICAPS AREDS ORAL) Take 1 tablet by mouth see administration instructions. 0 ActiveVit C,B-Sk-Yeaod-Lutein-Zeaxan (Preservision Areds-2) 250-90-40-1 mg Capsule (6 sources)Start: 23-92-6568Acq C,N-Xr-Hwzzn-Lutein-Zeaxan (Preservision Areds- 2) 250-90-40-1 mg Capsule Active 1 TAB PO Every morning December 05, 2021 12:47pm Start: 05-62-9532Acmup: 86-08-0407Elm C,E-Mu-Ybbck-Lutein-Zeaxan (Preservision Areds-2) 250-90-40-1 mg Capsule Active 2 TAB PO Every morning December 05, 2021 12:00am Complies with drug therapyStart: 94-49-2393Xgz C,V-Re-Hgttt-Lutein-Zeaxan (Preservision Areds-2) 250-90-40-1 mg Capsule Active 1 TAB PO Every morning December 05, 2021 12:00amvitamin b12 1 mg oral tablet (14 sources)Vitamin D57fjzh 1 tablet by mouth once dailycyanocobalamin (Vitamin B-12) 1,000 mcg tablet Take 1 tablet (1,000 mcg) by mouth once daily. Active Completed/Discontinued Medications MedicationDrug Class(es)DatesSig (Normalized)Sig (Original)acetaminophen 325 mg / HYDROcodone bitartrate 5 mg oral tablet (5 sources)Opioid AgonistStart: 12-08-2021 End: 69-81-7661oryy 1 tablet by mouth every eight hours as needed for pain Hydrocodone-Acetaminophen 5-325 mg tablet Discontinued 1 TAB PO Q8H as needed for pain 14 December 08, 2021 December 24, 2022 11:27amascorbic acid 226 mg / beta carotene 69538 unt / cuprous oxide 0.8 mg / dl-alpha tocopheryl ggaqyqc857 unt / zinc oxide 34.8 mg oral capsule (3 sources)Vitamin CPreserVision AREDS Oral Capsule TAKE DIRECTED. Quantity: 0 Refills: 0 Ordered: 03-Jul-2021 DO Activecephalexin 500 mg oral capsule (11 sources)Cephalosporin AntibacterialStart: 12-08-2021 End: 31-45-7864sijz 1 capsule by mouth every eight hoursCephalexin 500 mg capsule Discontinued 500 MG PO Q8H 21 7 December 08, 2021 12:00am December 24, 2022 11:26amStart: 12-05-2021 End: 62-63-0067bdvh 1 capsule by mouth twice dailyCephalexin 500 [...] quadrant abdominal tenderness; Translations: [LLQ ABDOMINAL TENDERNESS]Onset: 00-44-4309KkqfkzsqYbgmm bronchitis (2 sources)Acute infective bronchitis; Translations: [Acute bronchitis due to other specified organisms]78-83-8380VejpjtiqAjqhop of prostate (20 sources)Malignant neoplasm of prostate; Translations: [Secondary malignant neoplasm of bone]Onset: 05-02-2015 Resolved: 62-25-5416HfpjfmrNzeasih dysrhythmias (20 sources)Paroxysmal atrial fibrillation; Translations: [Atrial fibrillation] Onset: 10-46-5520PyfcqvpSkxfabf kidney disease (20 sources)Chronic kidney disease stage 3A ; Translations: [Stage 3a chronic kidney disease]Onset: 360079-34-0584JbtfaakAvvagwf kidney disease (2 sources)Chronic kidney disease; Translations: [Chronic kidney disease, stage 3a (Multi)]Onset: 05-62-5086Kvgrhzvkxhiaq of surgical procedures or medical care (2 sources)Skin reaction to suture material; Translations: [Disruption of external operation (surgical) wound,not elsewhere classified, initial encounter] 33-55-9684FvcoysipCykqvbujae and other anemia (1 source)Anemia, unspecified; Translations: [ANEMIA UNSPECIFIED]Onset: 99-74-9049PffwwgdnRdwvxcsq mellitus with complications (20 sources)Type 2 diabetes mellitus with other specified complication; Translations: [Type 2 diabetes mellitus]Onset: 27-30-2928JgvatnlBwplmbvv mellitus without complication (20 sources)Diabetes mellitus; Translations: [Diabetes mellitus without mention of complication, type II or unspecified type, not stated as uncontrolled]Onset: 602611-89-9830UrztzgcKqkbqrwtw of lipid metabolism (20 sources)Hyperlipidemia; Translations: [Other and unspecified hyperlipidemia] Onset: 800611-31-4530MsenckqVdtfzcdyilyjal and diverticulitis (20 sources)Diverticulosis of intestine, part unspecified, without perforation or abscess without bleeding; Translations: [Diverticular disease of colon]Onset: 25-85-6085GesnrbjQthlkjyjs hypertension (20 sources)Benign essential hypertension; Translations: [Benign essential hypertension]Onset: 264134-04-7561KabakxkXugiuwrukwxca symptoms and ill- defined conditions (2 sources)Dysuria; Translations: [Dysuria]23-69-9433HghcpjvmMqqeuatrgsrj with complications and secondary hypertension (20 sources)Benign hypertensive renal disease; Translations: [Hypertensive chronic kidney disease with stage 5 chronic kidney disease or end stage renal disease]Onset: 05-01-2024 Resolved: 181444-76-8077DafmylwGuslscxtwyrva mental health disorders (2 sources)Acute insomnia; Translations: [Adjustment insomnia]EpisodicMood disorders (20 sources)Major depressive disorder, single episode, unspecified; Translations: [Depression]Onset: 377360-99-2124YmcaxlcOaxzghobh of unspecified nature or uncertain behavior (6 sources)Neoplasm of skin; Translations: [Neoplasm of unspecified behavior of bone, soft tissue, and skin]08-49-9203YljvwxouAsttprswdim chest pain (2 sources)Chest pain; Translations: [Chest pain, unspecified]58-49-2450Wqvorrsu Other aftercare (6 sources)Drug therapy finding; Translations: [Long-term (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 of anticoagulants]EpisodicOther aftercare (4 sources)Removal of sutures done; Translations: [Encounter for removal of sutures]39-47-5384BnyhiblvEpxli gastrointestinal disorders (20 sources)Irritable bowel syndrome; Translations: [Irritable bowel syndrome without diarrhea]Onset: 338988-73-3197CbfxwltMojjw gastrointestinal disorders (1 source)Irritable bowel syndrome without diarrheaChronicOther gastrointestinal disorders (2 sources)Change in bowel habit; Translations: [CHANGE IN BOWEL HABIT]Onset: 75-06-0471JozrkayjFyfwg gastrointestinal disorders (1 source)Other fecal abnormalities; Translations: [OTHER FECAL ABNORMALITIES] Onset: 50-11-9541SfwyszkgLtgnt gastrointestinal disorders (2 sources)Altered bowel function; Translations: [Change in bowel habit]Episodic Other lower respiratory disease (2 sources)Cough; Translations: [Cough, unspecified type]31-00-6507NrrdazqdZcaub nervous system disorders (5 sources)Postoperative pain ; Translations: [Other acute postprocedural pain] 46-76-0389AabpewybZmktq nutritional; endocrine; and metabolic disorders (3 sources)Overweight; Translations: [Overweight]EpisodicOther skin disorders (2 sources)Seborrheic keratosis; Translations: [Other seborrheic keratosis] 68-09-8572BxezvcdrKhdkz skin disorders (2 sources)Lentiginosis; Translations: [Other melanin hyperpigmentation] 59-15-8206GflcqpnmOgaji skin disorders (4 sources)Actinic keratosis; Translations: [Actinic keratosis]10-26-2024 EpisodicOther upper respiratory disease (20 sources)Sinusitis; Translations: [Allergic rhinitis, unspecified]Onset: 562064-81-9822HdlejirTchly upper respiratory infections (2 sources)Pharyngitis; Translations: [Acute pharyngitis, unspecified]03-30-2025 EpisodicResidual codes; unclassified (2 sources)Body mass index (BMI) 22.0-22.9, adult; Translations: [Body mass index (BMI) 22.0-22.9, adult]Onset: 92-79-4163MbpcbipvAlszqwq tract infections (2 sources)Acute cystitis; Translations: [Acute cystitis with hematuria] 74-10-1135Zkwrgnzv Past or Other Problems Problem ClassificationProblemDateDocumented DateEpisodic/Chronic Administrative/social admission (20 sources)Patient encounter status; Translations: [Person consulting for explanation of examination or test findings]Onset: 05-01-2024 Resolved: [id number] and other anemia (20 sources)Anemia; Translations: [Anemia, unspecified]Onset: 11-04-2016 32-55-4856KrdyapyiZmcoo valve disorders (20 sources)Nonrheumatic mitral (valve) insufficiency; Translations: [Non- rheumatic mitral regurgitation ]Onset: 01-13-2024 Resolved: 58-12-1715EkzmdojVxkht aftercare (3 sources)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; Translations: [OTH [facility] CURRENT DRUG THERAPY]Onset: 71-73-0553UarvlalrCleto aftercare (20 sources)Long-term current use of anticoagulant; Translations: [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 teacher (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 of anticoagulants]Onset: 01-13-2024 Resolved: 715010-50-4461ImekeudtZcnaf aftercare (20 sources)Taking high risk medication; Translations: [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]Onset: 01-13-2024 Resolved: 360944-55-7078TfhzsbfkQjcns aftercare (20 sources)Treatment changed; Translations: [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]Onset: 10-02-2024 Resolved: 297851-84-2623AligjqxfSyjui aftercare (2 sources)halfway (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 of anticoagulants; Translations: [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 teacher (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 of anticoagulants]Onset: 12-17-0019WyuovkydEfjyg non-epithelial cancer of skin (20 sources)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; Translations: [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]Onset: 828166-13-3559ZcvwqitrTcfea nutritional; endocrine; and metabolic disorders (20 sources)Fat pad syndrome; Translations: [Localized adiposity]Onset: 11-09-2024 Resolved: 946528-65-4774VjfqqftSznjd screening for suspected conditions (not mental disorders or infectious disease) (6 sources)Abnormal electrocardiogram [ECG] [EKG]; Translations: [Electrocardiogram abnormal]Onset: 06-31-9905UsozzwgdPneffjweym disorders (not diabetes) (20 sources)Other specified diseases of pancreas; Translations: [Exocrine pancreatic insufficiency]Onset: 89-82-0865PkflvrahZlihadkw codes; unclassified (20 sources)Body mass index 20-24 - normal; Translations: [Body Mass Index between 19-24, adult]Onset: 05-01-2024 Resolved: 305883-53-0636VijupynaAhpvwruu codes; unclassified (2 sources)Body mass index (BMI) 23.0-23.9, adult; Translations: [Body mass index (BMI) 23.0-23.9, adult]Onset: 82-95-3458RosvdquwOavxhjnve and history of mental health and substance abuse codes (20 sources)Ex-smoker; Translations: [Personal history of nicotine dependence] Onset: 07-13-2023 Resolved: 064859-22-3434XdqbdhbkHbsuejkitkmw (3 sources)Never smoked tobacco; Translations: [Never a smoker]Unclassified (12 sources)Onset: 07-13-2023 Resolved: Results Test NameValueInterpretationReference RangeFacilityLaboratory - Microbiology and Antimicrobial susceptibilityon 77-10-5751AEMB-CoV-2 (COVID-19) RNA RENETTA+probe Ql (Unsp spec)NegativeNOMS HealthcareNo Panel Informationon 42-90-3309XPQ ANegative NOMS HealthcareFLU BNegativeNOMS HealthcareInterpretation and review of laboratory resultsNormalUNC Health WayneS. pyogenes DNA RENETTA+probe Nom (Unsp spec)on 98-16-1815MNAPDHKhmlkuujBmycmzwfVMOX HealthcareALL CBC WITH AUTO DIFFon 18-96-3371JZFJGZYZA ABSOLUTE AUTO0.1NOMS HealthcareBasophils/100 WBC (Bld)1.0 %0.2 - 2.0 %NOM HealthcareEosinophils/100 WBC (Bld)3.9 %0.9 - 7.0 % NOMMineral Area Regional Medical CenterErythrocyte distribution width (RBC) [Ratio]13.8 %11.0 - 15.0 % NOM HealthcareHematocrit (Bld) [Volume fraction]37.0 %Low42.0 - 54.0 %[facility] HospitalHemoglobin (Bld) [Mass/Vol]12.1 g/dLLow14.0 - 18.0 g/dLUniversity of [facility] Hospital IMMATURE GRANULOCYTES ABS AUTO0.04HighUniversity of Missouri Children's HospitalImmature granulocytes/100 WBC (Bld)0.5 %0.0 - 0.5 %[facility] HealthcareInterpretation and review of laboratory resultsAbnormCrozer-Chester Medical CenterLYMPHOCYTES ABSOLUTE AUTO2.1NOMS [facility] Lymphocytes/100 WBC (Bld)27.6 %20.5 - 60.0 %[facility] CenterH (RBC) [Entitic mass]30.8 pg25.9 - 34.0 pgNOPike County Memorial HospitalHC (RBC) [Mass/Vol]32.7 g/dL29.9 - 35.2 g/dLMissouri Baptist Medical CenterV (RBC) [Entitic vol]94.1 dNXuas81.0 - 94.0 fLUniversity of Missouri Children's HospitalMONOCYTES ABSOLUTE AUTO0.5NOResearch Medical Center-Brookside CampusMonocytes/100 WBC (Bld)6.7 % 1.7 - 12.0 %NOMMineral Area Regional Medical CenterNEUTROPHILS ABSOLUTE AUTO4.6NOMS [facility] Neutrophils/100 WBC (Bld)60.3 %43.0 - 75.0 %[facility] HospitalPlatelet mean volume (Bld) [Entitic vol]10.5 fL9.5 - 13.5 fLUniversity of Missouri Children's HospitalTBH EO #0.3NOMS Healthcare TBH [id number] Health Center RBC3.93LowNOParkland Health Center WBC7.6NOResearch Medical Center-Brookside Campus CLINISYNCUniversity of Missouri Children's HospitalALL CBC WITH AUTO DIFFon 42-61-7223EWREFGPET ABSOLUTE AUTO0.1NOMS [facility] SystemBasophils/100 WBC (Bld)0.9 %0.2 - 2.0 %[facility] Eosinophils/100 WBC (Bld)4.8 %0.9 - 7.0 %[facility] HospitalErythrocyte distribution width (RBC) [Ratio]13.3 %11.0 - 15.0 %[facility] HospitalHematocrit (Bld) [Volume fraction]37 %Low42.0 - 54.0 %[facility] HospitalHemoglobin (Bld) [Mass/Vol]12.2 g/dL Low14.0 - 18.0 g/dLUniversity of Missouri Children's HospitalIMMATURE GRANULOCYTES ABS AUTO0.05HighUniversity of Missouri Children's HospitalImmature granulocytes/100 WBC (Bld)0.8 %High0.0 - 0.5 %[facility] Interpretation and review of laboratory resultsAbnormalUniversity of [facility] LYMPHOCYTES ABSOLUTE AUTO2.1NOMS [facility] SystemLymphocytes/100 WBC (Bld)32.4 %20.5 - 60.0 %[facility] CenterH (RBC) [Entitic mass]30.7 pg25.9 - 34.0 pgMissouri Baptist Medical CenterHC (RBC) [Mass/Vol]33 g/dL29.9 - 35.2 g/dLUniversity of Missouri Children's HospitalMCV (RBC) [Entitic vol]93.2 fL80.0 - 94.0 fLUniversity of Missouri Children's HospitalMONOCYTES ABSOLUTE AUTO0.5NOResearch Medical Center-Brookside CampusMonocytes/100 WBC (Bld)7.7 %1.7 - 12.0 %[facility] HospitalNEUTROPHILS ABSOLUTE AUTO3.5NOResearch Medical Center-Brookside CampusNeutrophils/100 WBC (Bld)53.4 %43.0 - 75.0 %[facility] HospitalPlatelet mean volume (Bld) [Entitic vol]10.2 fL9.5 - 13.5 fLUniversity of Missouri Children's HospitalTB EO #0.3NOParkland Health Center [id number] Health Center RBC3.97LowNOParkland Health Center WBC6.5NOResearch Medical Center-Brookside CampusCLINISYNCNResearch Psychiatric CenterNo Panel Information on 52-68-5339Wrtwhwn obtained: written [place] Protocol: Procedure explained and questions answered to [...] fashion Prep type: chlorhexidine Biopsy accession number: [id number] Biopsy lab: [place] skin pathology Date of biopsy: 10/26/2024 Frozen [...] antibiotics given on the day of surgery?: NoNOMS [facility] PET psma subq tx [facility] 30-43-1550XCU psma subq tx -[facility] [place] [address] Nuclear Medicine Report Signed Patient: Epifanio Alvarez MR#: [id number] 906 : 1940 Acct:[id number] Age/Sex: 84 / M ADM Date: 12/20/24 Loc: Room: Type: [facility] Attending Dr: Miller Donald MD Copies to: [...] Story M.D. 12/20/2024 2:08 PM Dictation Location: [facility]24 Transcribed By: WOODY 12/20/24 1408 Dictated By: Jordan Story II, MD 12/20/24 1401 Signed By: 12/20/24 1408[facility] 95-34-2174RWLCIRJWBWCCK OOZAEUQE3RCRO HealthcareACINETOBACTER BAUMANIINot detectedNOMS HealthcareCANDIDA ALBICANS, PARAPSILOSIS, QYFRZCUVFM2IYNJ HealthcareCANDIDA ALBICANS, PARAPSILOSIS, TROPICALISNot detectedNOMS Healthcare JARAD KFBTBTIL7SOHI HealthcareCANDIDA GLABRATANot detectedNOMS Healthcare JARAD CQFKAK3TZZS HealthcareCANDIDA KRUSEINot detectedNOMS Healthcare CITROBACTER OEAHXCHM8MNNQ HealthcareCITROBACTER FREUNDIINot detectedNOMS HealthcareENTEROBACTER AEROGENES, GFPDXGE7PIZE HealthcareENTEROBACTER AEROGENES, CLOACAENot detectedNOMS HealthcareENTEROCOCCUS FAECALIS, LABRBQM2SXFX Healthcare ENTEROCOCCUS FAECALIS, FAECIUMNot detectedNOMS HealthcareESCHERICHIA MXAX2UULO HealthcareESCHERICHIA COLINot detectedNOMS HealthcareKLEBSIELLA PNEUMONIAE, EETZEZL9NVUU HealthcareKLEBSIELLA PNEUMONIAE, OXYTOCANot detectedNOMS Healthcare MORGANELLA IKIKERIH9XWDP HealthcareMORGANELLA MORGANIINot detectedNOMS HealthcarePROTEUS MIRABILIS, OCOVPWJQ2FQOD HealthcarePROTEUS MIRABILIS, VULGARIS Not detectedNOMS HealthcarePSEUDOMONAS JTCGDIGFMD1HKUX HealthcarePSEUDOMONAS AERUGINOSANot detectedNOMS HealthcareSERRATIA TBYHIZOYXB8CLSA HealthcareSERRATIA MARCESCENSNot detectedNOMS HealthcareSTAPHYLOCOCCUS YDJAXU3MHAE Healthcare STAPHYLOCOCCUS AUREUSNot detectedNOMS HealthcareSTAPHYLOCOCCUS EPIDERMIDIS, HAEMOLYTICUS, LUGDUNENSIS, SAPROPHYTICUS (WFOUI6XSRU HealthcareSTAPHYLOCOCCUS EPIDERMIDIS, HAEMOLYTICUS, LUGDUNENSIS, SAPROPHYTICUS (URINANot detectedNOMS HealthcareSTREPTOCOCCUS AGALACTIAE (GROUP B STREP)0NOMS HealthcareSTREPTOCOCCUS AGALACTIAE (GROUP B STREP)Not detectedNOMS HealthcareSTREPTOCOCCUS PYOGENES (GROUP A STREP)0NOMS HealthcareSTREPTOCOCCUS PYOGENES (GROUP A STREP)Not detectedNOMS HealthcareNOMS HealthcareUrinalysis macro (dipstick) panel (U)on 99-55-5161Kqjdhmivz, UANegativeNegative - 4(70) +++ mg/dLNOMS HealthcareBlood, UAPositiveNegative - 50 Darrin/mcLNOMS HealthcareComment on above:3+Clarity, UA CloudyNOMS HealthcareColor, UAYellowNOMS HealthcareGlucose, UANegativeNegative - 1999(110) ++++ mg/dLINTER[facility] HealthcareInterpretation and review of laboratory resultsAbnormalINTERMOUNTAIN [facility] HealthcareKetones, UANegativeNegative - 160(16) ++++ mg/dL [facility] HealthcareLeukocytes, UA2+Negative - 500+++ Treva/mcLNOVT HealthcareNitrite, UANegativeNegative - PositiveNOVT HealthcarepH, UA65 - 9NOVT HealthcareProtein, UANegativeNegative - 1999(20) ++++ mg/dLINTER[facility] HealthcareSpec Grav, UA1.011 - 1.03 NOMS HealthcareUrobilinogen, UA0.20.2 - 12 mg/dLUNC Health Wayne Capillary blood glucose measurement by glucometer (mass/volume)Ordered By: Juan Guzman on 15-66-5318Zhlgnvg [Mass/Vol]126 mg/dLHolzer HospitalComment on above:Random Glucose Reference Range is [...] the diagnosis of Diabetes Mellitus. PERFORMED BY: [address] [place] [address] PATHOLOGIST OXYGEN THERAPY TEACHER ROSS JOHNSTON M.D.Performed By: #### GLULS #### Point of Care testing ,GLUCOSE POCT GLUCOMETERSon 81-14-5246Ehovgtr [Mass/Vol]126 mg/dLUniversity of [facility] Children's Hospital Comment on above:Random Glucose Reference Range is dependent on time and content of last meal. Glucose of more than 200 mg/dL in a nonstressed, ambulatory subject supports the diagnosis of Diabetes Mellitus. [facility] HealthcareGlucose [Mass/Vol]143 mg/dLUniversity of Missouri Children's HospitalComment on above:Random Glucose Reference Range is dependent on time and content of last meal. Glucose of more than 200 mg/dL in a nonstressed, ambulatory subject supports the diagnosis of Diabetes Mellitus. [facility] HospitalGlucose Poct Glucometerson 69-84-7071Njyvkfc [Mass/Vol]143 mg/dL NormalThe [facility]health [facility] Hospital Physician GroupComment on above:Result Comment: Random Glucose Reference Range is dependent on time and content of last meal. Glucose of more than 200 mg/dL in a nonstressed, ambulatory subject supports the diagnosis of Diabetes Mellitus. PERFORMED BY: [facility] [id number] PATHOLOGIST OXYGEN THERAPY TEACHER ROSS JOHNSTON M.D.Performed By: #### GLULS #### Point of Care testing ,Joni 11-20-2024 Specimen: [id number] Received: 11/20/24 Status: DEONDRE Joshua Num: [id number] Spec Type: Surgical Subm Dr: Juan Guzman DO Tissues: A Skin-Other than Cyst, tag, debridement or plastic repair (LEFT CHEEK) Procedures: HE/Gita, Gross/Micro L4, Frozen Section, FS HE/2 Age/ Patient Sex Location Account Attending Physician Epifanio Alvarez 84/M [place] [id number] Juan Guzman,DO SPEC NUM: [id number] RECD: 11/20/24 STATUS: DEONDRE WATTS NUM: [id number] JARRET: 11/20/24 [facility] DR: Juan Guzman, ENTERED: 11/20/[address] [facility] [address]: RYAN TYPE: Surgical DEPT: S ORDERED: HE/9, [...] A4?A5: 6:00 half of the excision Specimen: [id number] Received: 11/20/24 Status: DEONDRE Cunninghamdia Num: [id number] Spec Type: Surgical Subm Dr: Juan Guzman,DO Tissues: A Skin-Other than Cyst, tag, debridement or plastic repair (LEFT CHEEK) Procedures: Gita, Gross/Micro L4, Frozen Section, FS HE/2 Patient: Epifanio Alvarez [id number] (Continued) Specimen: [id number] Received: 11/20/24 (Continued) Gross Description (Continued) Signed (signature on file) Shayan Johnson Jr., MD 11/23/24 0928 Specimen: [id number] Received: 11/20/24 Status: DEONDRE Watts Num: [id number] Spec Type: Surgical Subm Dr: Juan Guzman, Tissues: A Skin-Other than Cyst, tag, debridement or plastic repair (LEFT CHEEK) Procedures: , Gross/Micro L4, Frozen Section, FS /2 Patient: Epifanio Alvarez [id number] (Continued) Specimen: [id number] Received: 11/20/24 (Continued) Gross Description (Continued) (5, entirely submitted, TW) Intraoperative Diagnosis FS dx: Cheek cyst. 6-9 (green) and 9-12 (red): shaved closest peripheral margins. Negative for malignancy. FX read by. Dr. Johnson 11/20/2024 8957. CPT Codes 57983, 84300 Specimen: [id number] Received: 11/20/24 Status: DEONDRE Joshua Num: [id number] Spec Type: Surgical Subm Dr: Juan Guzman DO Tissues: A Skin-Other than Cyst, tag, debridement or plastic repair (LEFT CHEEK) Procedures: HE/Gita, Gross/Micro L4, Frozen Section, FS HE/2 Patient: Epifanio Alvarez [id number] (Continued) (more content not included)... NormalThe Firsthealth [facility] Hospital Physician GroupECG 12 lead ECGon 74-44-5405YPF 12 lead ECG [address] [address] Electrocardiograph Report Signed Patient: Epifanio Alvarez MR#: [id number] 906 : 1940 Acct:[id number] Age/Sex: 84 / M ADM Date: 11/14/24 Loc: Room: Type: [facility] Attending Dr: Juan Guzman DO Ordering Provider: [...] change was found Confirmed by Pablo Haque ([id number]) on 11/15/2024 11:11:14 AM Referred By: Electronically Signed By: Pablo Haque Transcribed By: MUS Signed By Pablo Haque MD 11/15/[address] [place] [address] Physician IdakfChE8z (Bld) [Mass fraction]on 91-16-1075ZHCW HealthcareLaboratory - Hematology and Cell countson 11-14-2024 HbA1c (Bld) [Mass fraction]6.9 %[facility] HospitalALL CBC WITH AUTO DIFFon 54-83-2289EQNIAYNRR ABSOLUTE AUTO0.1NOMS HealthcareBasophils/100 WBC (Bld)1 %0.2 - 2.0 %NOMS [facility] SystemEosinophils/100 WBC (Bld)4.3 %0.9 - 7.0 %[facility] Erythrocyte distribution width (RBC) [Ratio]13.9 %11.0 - 15.0 %[facility] Hematocrit (Bld) [Volume fraction]36 %Low42.0 - 54.0 %[facility] HospitalHemoglobin (Bld) [Mass/Vol]12 g/dLLow14.0 - 18.0 g/dLNOResearch Medical Center-Brookside CampusIMMATURE GRANULOCYTES ABS AUTO0.04HighNOVT HealthcareImmature granulocytes/100 WBC (Bld)0.6 %High0.0 - 0.5 %[facility] HospitalInterpretation and review of laboratory resultsAbnormalNOVT HealthcareLYMPHOCYTES ABSOLUTE CWCB0NHQB HealthcareLymphocytes/100 WBC (Bld) 28.8 %20.5 - 60.0 %[facility] HospitalMCH (RBC) [Entitic mass]30.8 pg25.9 - 34.0 pg NOMS HealthcareMCHC (RBC) [Mass/Vol]33.3 g/dL29.9 - 35.2 g/dLMissouri Baptist Medical CenterV (RBC) [Entitic vol]92.3 fL80.0 - 94.0 fLNOResearch Medical Center-Brookside CampusMONOCYTES ABSOLUTE AUTO 0.6NOMS HealthcareMonocytes/100 WBC (Bld)7.9 %1.7 - 12.0 %[facility] NEUTROPHILS ABSOLUTE AUTO4.1NOMS [facility] SystemNeutrophils/100 WBC (Bld)57.4 %43.0 - 75.0 %[facility] HospitalPlatelet mean volume (Bld) [Entitic vol]10.5 fL9.5 - 13.5 fLNOResearch Medical Center-Brookside CampusTBH EO #0.3NOMS [facility] SystemTB [id number] [facility] RBC3.9 LowNOParkland Health Center WBC7.1NOMS [facility] SystemCLINISYNCNResearch Psychiatric CenterALL CBC WITH AUTO DIFFon 02-87-3248HZKQSFHHE ABSOLUTE AUTO0.1NOMS [facility] SystemBasophils/100 WBC (Bld)1.1 %0.2 - 2.0 %NOMMineral Area Regional Medical CenterEosinophils/100 WBC (Bld)4 %0.9 - 7.0 %[facility] HospitalErythrocyte distribution width (RBC) [Ratio]14.1 %11.0 - 15.0 %[facility] HospitalHematocrit (Bld) [Volume fraction]36.2 %Low42.0 - 54.0 %[facility] HospitalHemoglobin (Bld) [Mass/Vol]12.3 g/dLLow14.0 - 18.0 g/dLUniversity of [facility] Children's Hospital IMMATURE GRANULOCYTES ABS AUTO0.06HighNOResearch Medical Center-Brookside CampusImmature granulocytes/100 WBC (Bld)0.7 %High0.0 - 0.5 %[facility] HospitalInterpretation and review of laboratory resultsAbnormalNOResearch Medical Center-Brookside CampusLYMPHOCYTES ABSOLUTE AUTO2.8NOMS [facility] SystemLymphocytes/100 WBC (Bld)31.2 %20.5 - 60.0 %[facility] CenterH (RBC) [Entitic mass]31.6 pg25.9 - 34.0 pgNOResearch Medical Center-Brookside CampusMCHC (RBC) [Mass/Vol]34 g/dL 29.9 - 35.2 g/dLNOMS HealthcareMCV (RBC) [Entitic vol]93.1 fL80.0 - 94.0 fLUniversity of Missouri Children's HospitalMONOCYTES ABSOLUTE AUTO0.6NOResearch Medical Center-Brookside CampusMonocytes/100 WBC (Bld)7.1 % 1.7 - 12.0 %[facility] HospitalNEUTROPHILS ABSOLUTE AUTO5.1NResearch Psychiatric Center Neutrophils/100 WBC (Bld)55.9 %43.0 - 75.0 %[facility] HealthcarePlatelet mean volume (Bld) [Entitic vol]10.5 fL9.5 - 13.5 fLUniversity of Missouri Children's HospitalTBH EO #0.4NOResearch Medical Center-[facility]okside Campus TBH SCK223NISIParkland Health Center RBC3.89LowNOParkland Health Center WBC9.1NResearch Psychiatric Center CLINISYNCUniversity of Missouri Children's HospitalNo Panel Informationon 70-29-8133OUBMUniversity of Missouri Children's HospitalType of biopsy: tangential Informed consent: discussed and [...] Photo taken Amount of lidocaine used: 2.0 [facility]Type [facility]: tang[facility] Informed consent: discussed and [...] taken Amount of lidocaine used: 1.0 [facility] HealthType of biopsy: tangential Informed consent: discussed and [...] Photo taken Amount of lidocaine used: 3.0 [facility] HealthNo Panel Informationon 70-94-0496Ytdcbu length (cm): 1.2 Lesion width (cm): 1.1 [...] 9.0 ml Estimated blood loss: 1.0 mlNOMS HealthcareComplexity: Intermediate Final length (cm): 5.3 Reason for [...] infection, uncontrollable bleeding, or complications. Dressing type: bandageNAmbatureNo Panel InformationOrdered By: Danielle Leblanc on 67-89-5733IYBH Healthcare Work Phone: aLL CBC WITH AUTO DIFFon 08-01-8488DHRNSMGEN ABSOLUTE AUTO0.1NOMS HealthcareBasophils/100 WBC (Bld)1.1 %0.2 - 2.0 %[facility] Eosinophils/100 WBC (Bld)5 %0.9 - 7.0 %NOMS HealthcareErythrocyte distribution width (RBC) [Ratio]13.2 %11.0 - 15.0 %NOMS HealthcareHematocrit (Bld) [Volume fraction]37.9 %Low42.0 - 54.0 %NOMS HealthcareHemoglobin (Bld) [Mass/Vol]12.4 g/dLLow14.0 - 18.0 g/dLNOResearch Medical Center-Brookside CampusIMMATURE GRANULOCYTES ABS AUTO0.04HighNOVT HealthcareImmature granulocytes/100 WBC (Bld)0.5 %0.0 - 0.5 %[facility] Interpretation and review of laboratory resultsAbnormalNOResearch Medical Center-[facility] Campus LYMPHOCYTES ABSOLUTE AUTO2.3NOResearch Medical Center-Brookside CampusLymphocytes/100 WBC (Bld)30.7 %20.5 - 60.0 %[facility] CenterH (RBC) [Entitic mass]30.5 pg25.9 - 34.0 pgNOPike County Memorial HospitalHC (RBC) [Mass/Vol]32.7 g/dL29.9 - 35.2 g/dLMissouri Baptist Medical CenterV (RBC) [Entitic vol]93.3 fL80.0 - 94.0 fLUniversity of Missouri Children's HospitalMONOCYTES ABSOLUTE AUTO0.5NOMS HealthcareMonocytes/100 WBC (Bld)5.9 %1.7 - 12.0 %[facility] HospitalNEUTROPHILS ABSOLUTE AUTO4.3NOResearch Medical Center-Brookside CampusNeutrophils/100 WBC (Bld)56.8 %43.0 - 75.0 %[facility] HospitalPlatelet mean volume (Bld) [Entitic vol]9.8 fL9.5 - 13.5 fLNOResearch Medical Center-Brookside CampusTBH EO #0.4NOMS HealthcareTBH [id number] [facility]ita Health SystemTB RBC4.06LowNOMS Avita Health SystemTB WBC7.6NOVT HealthcareCLINISYNCNOMS HealthcareGlucose Glucometer (BldC) [Mass/Vol]Ordered By: Colin Thompson on 82-67-2026Tknkore [Mass/Vol] Capillary blood glucose measurement by glucometer (mass/volume)Chillicothe HospitalComment on above:Random Glucose Reference Range is dependent on time and content of last meal. Glucose of more than 200 mg/dL in a nonstressed, ambulatory subject supports the diagnosis of Diabetes Mellitus. Glucose Poct Glucometerson 77-03-4946Sakoqwq8Bmm0: Cleaned [facility] Physician GroupComment on above:Result Comment: PERFORMED BY: [place] [address] [place] [address] PATHOLOGIST OXYGEN THERAPY TEACHER JOSE DOWNEY M.D.Performed By: #### GLULS #### Point of Care testing ,Glucose [Mass/Vol]216 mg/dLBaptist Health Bethesda Hospital West Physician GroupComment on above: Result Comment: Random Glucose Reference Range is dependent on time and content of last meal. Glucose of more than 200 mg/dL in a nonstressed, ambulatory subject supports the diagnosis of Diabetes Mellitus.Performed By: #### GLULS #### Point of Care testing ,Joni 08-09-2024 Specimen: [id number] Received: 08/09/24 Status: DEONDRE Joshua Num: [id number] Spec Type: Surgical Subm Dr: Colin Thompson MD Tissues: A Skin-Other than Cyst, tag, debridement or plastic repair (R LOWER LEG) Procedures: Lizett HERNANDEZ/Saurabh L4 Age/ Patient Sex Location Account Attending Physician Epifanio Alvarez 84/M [place] [id number] Colin Thompson MD SPEC NUM: [id number] RECD: 08/09/24 STATUS: DEONDRE WATTS NUM: [id number] JARRET: 08/09/24- SUBM DR: Colin Thompson MD ENTERED: 08/09/[address]: RYAN TYPE: Surgical DEPT: S ENTERED BY: [id number] RECV BY: [id number] ORDERED: HE/8, Gross/Micro L4 ORDERED: HE, Gross/Micro L4 Pathological Diagnosis Skin, right lower [...] 0.6 cm from the 6?9?12:00 margin. Specimen: [id number] Received: 08/09/24 Status: DEONDRE Watts Num: [id number] Spec Type: Surgical Subm Dr: Colin Thompson MD Tissues: A Skin-Other than Cyst, tag, debridement or plastic repair (R LOWER LEG) Procedures: Lizett Ortiz/Saurabh L4 Patient: Epifanio Alvarez [id number] (Continued) Specimen: [id number] Received: 08/09/24 (Continued) Gross Description (Continued) Signed (signature on file) Sohail Urbina MD 08/10/24 1527 Specimen: [id number] Received: 08/09/24 Status: DEONDRE Watts Num: [id number] Spec Type: Surgical Subm Dr: Colin Thompson MD Tissues: A Skin-Other than Cyst, tag, debridement or plastic repair (R LOWER LEG) Procedures: HEATHER/Angel, Gross/Micro L4 Patient: Epifanio Alvarez [id number] (Continued) Specimen: [id number] Received: 08/09/24 (Continued) Gross Description (Continued) The specimen is inked as follows: 12?3:00-Yellow 3?6:00-Green 6?9:00-Burdett 9?12:00-Blue Deep-Black Serial sections reveal yellow-leonardo, glistening [...] serially sectioned 6:00 polar end (8, ns, H50-2674 A) Microscopic Description Microscopic examination is performed CPT Codes 98635 Specimen: [id number] Re (more content not included)...NormalBaptist Health Fishermen’S Community Hospital Physician GroupNo Panel InformationOrdered By: Colin Thompson on 08-09-2024 Bedside Glucose CommentGlu2: cleaned [facility] HospitalNo Panel Informationon 86-02-8205Mynrol length (cm): 1.1 Lesion width (cm): 1.1 [...] Additional details: Am[facility] of lidoc[facility] used: 2.0 [facility]No Panel Informationon 15-70-3346Ypwe of biopsy: tangential Informed consent: discussed and [...] taken Amount of lidocaine used: 1.0 [facility] HealthType of biopsy: tangential Informed consent: discussed and [...] Photo taken Amount of lidocaine used: 2.0 [facility] HealthType of biopsy: tangential Informed consent: discussed and [...] Photo taken Amount of lidocaine used: 1.0 [facility] HealthcareNOVT HealthcareCCF CMP (CMP) (FOR REMOTE [facility] USE)on 56-68-9583Zcbhhnr [Mass/Vol]3.6 g/dL3.4 - 5.0 g/dLNOMS HealthcareALBUMIN GLOBULIN RATIO1.2NOMS HealthcareALP [Catalytic activity/Vol]48 U/L46 - 116 U/LNOMS HealthcareALT [Catalytic activity/Vol]16 U/L16 - 63 U/LNOMS HealthcareAnion gap [Moles/Vol]11 mmol/LNOMS HealthcareAST [Catalytic activity/Vol]19 U/L15 - 37 U/LNOMS HealthcareBilirubin [Mass/Vol]0.6 mg/dL0.2 - 1.0 mg/dLNOMS HealthcareCalcium [Mass/Vol]8.8 mg/dL8.5 - 10.1 mg/dLNOMS HealthcareChloride [Moles/Vol]106 mmol/L98 - 107 mmol/LNOMS HealthcareCO2 [Moles/Vol]30 mmol/L21.0 - 32.0 mmol/LNOMS HealthcareCreatinine [Mass/Vol]1.27 mg/dL0.70 - 1.30 mg/dLNOMS HealthcareGFR/1.73 sq M.predicted CKD-EPI (S/P/Bld) [Vol rate/Area]>60>=60 mL/min/1.73m 2NOMS HealthcareGlobulin (S) [Mass/Vol]3.1 g/dLNOMS HealthcareGlucose [Mass/Vol]167 mg/hZJiai47 - 106 mg/dLNOResearch Medical Center-Brookside Campus Interpretation and review of laboratory resultsAbnormalNOMS HealthcarePotassium [Moles/Vol]4 mmol/L3.5 - 5.1 mmol/LNOMS HealthcareProtein [Mass/Vol]6.7 g/dL6.4 - 8.2 g/dLNOVT HealthcareSodium [Moles/Vol]143 mmol/L136 - 145 mmol/LNOMS HealthcareTBH EGFR-NON AF WOZGGQYW93Xzw>=60 mL/min/1.73m 2NOMS HealthcareUrea nitrogen [Mass/Vol]24 mg/dLHigh7.0 - 18.0 mg/dLNOMS HealthcareUrea nitrogen/Creatinine [Mass ratio]18.9 mg/mgNOResearch Medical Center-Brookside CampusCLINISYNCNResearch Psychiatric CenterNo Panel Informationon 19-06-5364Ewpmborpzz: Intermediate Final length (cm): 4 Reason for [...] infection, uncontrollable bleeding, or complications. Dressing type: bandageNResearch Psychiatric CenterNOVT HealthcareLesion length (cm): 1.2 Lesion width (cm): 1 [...] 9.0 ml Estimated blood loss: <1.0 mlNOMS RnnjdryswkUzP3r (Bld) [Mass fraction]on 18-44-2603RMPY HealthcareLaboratory - Hematology and Cell countson 05-10-2024 HbA1c (Bld) [Mass fraction]7.6 %[facility] HospitalALL CBC WITH AUTO DIFFon 39-89-5841PQEXXRYKW ABSOLUTE AUTO0.1NOMS [facility] SystemBasophils/100 WBC (Bld)1.2 % 0.2 - 2.0 %NOMMineral Area Regional Medical CenterEosinophils/100 WBC (Bld)4.3 %0.9 - 7.0 %[facility] HospitalErythrocyte distribution width (RBC) [Ratio]13 %11.0 - 15.0 %[facility] HospitalHematocrit (Bld) [Volume fraction]38.4 %Low42.0 - 54.0 %[facility] HospitalHemoglobin (Bld) [Mass/Vol]12.4 g/dLLow14.0 - 18.0 g/dLNOResearch Medical Center-Brookside Campus IMMATURE GRANULOCYTES ABS AUTO0.03NOResearch Medical Center-Brookside CampusImmature granulocytes/100 WBC (Bld)0.5 %0.0 - 0.5 %[facility] HospitalInterpretation and review of laboratory resultsAbnormalNOResearch Medical Center-Brookside CampusLYMPHOCYTES ABSOLUTE AUTO2.1NOMS Healthcare Lymphocytes/100 WBC (Bld)32.7 %20.5 - 60.0 %[facility] HospitalMCH (RBC) [Entitic mass]30.1 pg25.9 - 34.0 pgMissouri Baptist Medical CenterHC (RBC) [Mass/Vol]32.3 g/dL29.9 - 35.2 g/dLMissouri Baptist Medical CenterV (RBC) [Entitic vol]93.2 fL80.0 - 94.0 fLUniversity of Missouri Children's HospitalMONOCYTES ABSOLUTE AUTO0.5NOResearch Medical Center-Brookside CampusMonocytes/100 WBC (Bld)7 %1.7 - 12.0 %[facility] HospitalNEUTROPHILS ABSOLUTE AUTO3.5NOResearch Medical Center[facility] Neutrophils/100 WBC (Bld)54.3 %43.0 - 75.0 %[facility] HospitalPlatelet mean volume (Bld) [Entitic vol]10.4 fL9.5 - 13.5 fLUniversity of Missouri Children's HospitalTB EO #0.3NOResearch Medical Center[facility] TB LSS853MUATParkland Health Center RBC4.12LowNOParkland Health Center WBC6.5NOResearch Medical Center[facility] CLINISYNCUniversity of Missouri Children's HospitalALL CBC WITH AUTO DIFFon 19-75-2311TDQZNJEKO ABSOLUTE AUTO0.1NOMS [facility] SystemBasophils/100 WBC (Bld)1.2 %0.2 - 2.0 %[facility] Eosinophils/100 WBC (Bld)5.3 %0.9 - 7.0 %[facility] HospitalErythrocyte distribution width (RBC) [Ratio]13.1 %11.0 - 15.0 %[facility] HospitalHematocrit (Bld) [Volume fraction]38.3 %Low42.0 - 54.0 %[facility] HospitalHemoglobin (Bld) [Mass/Vol]12.6 g/dLLow14.0 - 18.0 g/dLUniversity of Missouri Children's HospitalIMMATURE GRANULOCYTES ABS AUTO0.04HighUniversity of Missouri Children's HospitalImmature granulocytes/100 WBC (Bld)0.5 %0.0 - 0.5 %[facility] Interpretation and review of laboratory resultsAbnormalUniversity of [facility] LYMPHOCYTES ABSOLUTE AUTO2.2NOMS [facility] Health SystemLymphocytes/100 WBC (Bld)27.3 %20.5 - 60.0 %[facility] CenterH (RBC) [Entitic mass]30.7 pg25.9 - 34.0 pgNOPike County Memorial HospitalHC (RBC) [Mass/Vol]32.9 g/dL29.9 - 35.2 g/dLNOMS HealthcareMCV (RBC) [Entitic vol]93.2 fL80.0 - 94.0 fLNOVT HealthcareMONOCYTES ABSOLUTE AUTO0.6NOMS HealthcareMonocytes/100 WBC (Bld)7.3 %1.7 - 12.0 %NOMS HealthcareNEUTROPHILS ABSOLUTE AUTO4.8NOMS HealthcareNeutrophils/100 WBC (Bld)58.4 %43.0 - 75.0 %NOMS HealthcarePlatelet mean volume (Bld) [Entitic vol]10.6 fL9.5 - 13.5 fLNOVT HealthcareTBH EO #0.4NOMS HealthcareTBH ACC072RUOA HealthcareTBH RBC4.11LowNOMS HealthcareTBH WBC8.1NOMS HealthcareCLINISYNCNVETERANS AFF[facility] [place] HealthcareTRANSTHORACIC ECHO (TTE) COMPLETEon 89-16-9379GAZABCKZVAZPF ECHO (TTE) [address], [place] [address] TRANSTHORACIC ECHOCARDIOGRAM REPORT Patient Name: EPIFANIO Kim Physician: [id number] Marina Goldsimth MD Study Date: 02/21/2024 Ordering Provider: [id number] MISSY KHOURY MRN/PID: [id number] Fellow: Nurse: 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: Jyoti Gutiérrez RDCS, RVT Gender: M Additional Staff: Height: 180.34 cm Admit Date: Weight: 77.11 kg Admission Status: BSA / BMI: 1.97 m2 / 23.71 kg/m2 Department Location: [facility] Blood Pressure: 142 /84 mmHg Study Type: TRANSTHORACIC ECHO (TTE) COMPLETE Diagnosis/ICD: 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; Paroxysmal atrial fibrillation-I48.0 Indication: Diabetes, HTN, Hyperlipidemia, Murmur, Former Smoker, Prostate Cancer with Metastases, CKD-Stage III CPT Codes: Echo Complete w Full Doppler-02062 Study Detail: The following Echo studies were [...] mmHg PIEDV: 2.08 m/s PADP: 20.3 mmHg [id number] Marina Goldsmith MD Electronically signed on 02/21/2024 at 2:06:09 PM Final [facility] CenterTransthoracic echo (TTE) completeon 02-21-[address], [address], [place] [address] TRANSTHORACIC ECHOCARDIOGRAM REPORT Patient Name: EPIFANIO ALVAREZ Reading Physician: [id number] Marina Goldsmith MD Study Date: 02/21/2024 Ordering Provider: [id number] MISSY KHOURY MRN/PID: [id number] Fellow: Nurse: 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: Jyoti Gutiérrez RDCS, RVT Gender: M Additional Staff: Height: 180.34 cm Admit Date: Weight: 77.11 kg Admission Status: BSA / BMI: 1.97 m2 / 23.71 kg/m2 Department Location: [facility] Blood Pressure: 142 /84 mmHg Study Type: TRANSTHORACIC ECHO (TTE) COMPLETE Diagnosis/ICD: 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; Paroxysmal atrial fibrillation-I48.0 Indication: Diabetes, HTN, Hyperlipidemia, Murmur, Former Smoker, Prostate Cancer with Metastases, CKD-Stage III CPT Codes: Echo Complete w Full Doppler-26969 Study Detail: The following Echo studies were [...] LVOT VTI: 17.00 c (more content not included)...Radiology, Radiologist, - 02/21/[address], [address] [address] TRANSTHORACIC ECHOCARDIOGRAM REPORT Patient Name: EPIFANIO Kim Physician: [id number] Marina Goldsmith MD Study Date: 02/21/2024 Ordering Provider: [id number] MISSY KHOURY MRN/PID: [id number] Fellow: Nurse: 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: Jyoti Gutiérrez RDCS, RVT Gender: M Additional Staff: Height: 180.34 cm Admit Date: Weight: 77.11 kg Admission Status: BSA / BMI: 1.97 m2 / 23.71 kg/m2 Department Location: [facility] Blood Pressure: 142 /84 mmHg Study Type: TRANSTHORACIC ECHO (TTE) COMPLETE Diagnosis/ICD: 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; Paroxysmal atrial fibrillation-I48.0 Indication: Diabetes, HTN, Hyperlipidemia, Murmur, Former Smoker, Prostate Cancer with Metastases, CKD-Stage III CPT Codes: Echo Complete w Full Doppler-23100 Study Detail: The following Echo studies were [...] mmHg PIEDV: 2.08 m/s PADP: 20.3 mmHg [id number] Marina Goldsmith MD Electronically signed on 02/21/2024 at 2:06:09 PM Final NOMS HealthcareRadiology Study observation (narrative)[facility] Transthoracic echo (TTE) completeOrdered By: Radiologist Radiology on 02-21-2024 [facility] Work Phone: US Heart TransthoracicOrdered By: Marina Goldsmith on 16-11-4390Hgexqo Valve Area by Continuity of Peak Velocity4.33 wh6KxwrnlwrpvUniversity [facility]als [facility] Work Phone: [phone] Valve Area by Continuity of VTI3.61 cm2 [facility] Work Phone: [phone] mn grad2.0mmHgUniversity Hospitals Conne[facility] Work Phone: [phone] pk grad4.8mmOur [facility] Work Phone: [phone] pk vel1.10 m/[facility] Work Phone: [phone] A4C EF68.1[facility] Work Phone: [phone] EF60 %[facility] Work Phone: [phone] [facility] Work Phone: [phone] diam2.60 [facility] Work Phone: [phone] avg E/e' ratio6.90[facility] Work Phone: MV E/A ratio0.58[facility] Work Phone: [phone] [facility] of [facility] Work Phone: [phone] Work Phone: [phone] Heart Transthoracicon 02-21-[address], [address] [place] [address] TRANSTHORACIC ECHOCARDIOGRAM REPORT Patient Name: EPIFANIO Kim Physician: [id number] Marina Goldsmith MD Study Date: 02/21/2024 Ordering Provider: [id number] MISSY KHOURY MRN/PID: [id number] Fellow: Nurse: 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: Jyoti Gutiérrez RDCS, RVT Gender: M Additional Staff: Height: 180.34 cm Admit Date: Weight: 77.11 kg Admission Status: BSA / BMI: 1.97 m2 / 23.71 kg/m2 Department Location: [facility] Blood Pressure: 142 /84 mmHg Study Type: TRANSTHORACIC ECHO (TTE) COMPLETE Diagnosis/ICD: 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; Paroxysmal atrial fibrillation-I48.0 Indication: Diabetes, HTN, Hyperlipidemia, Murmur, Former Smoker, Prostate Cancer with Metastases, CKD-Stage III CPT Codes: Echo Complete w Full Doppler-22143 Study Detail: The following Echo studies were [...] content not included)...Marina Goode MD - 02/21/[address], [address], [place] [address] TRANSTHORACIC ECHOCARDIOGRAM REPORT Patient Name: EPIFANIO ALVAREZ Reading Physician: [id number] Marina Goldsmith MD Study Date: 02/21/2024 Ordering Provider: [id number] MISSY KHOURY MRN/PID: [id number] Fellow: Nurse: 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08 m/s PADP: 20.3 mmHg [id number] Marina Goldsmith MD Electronically signed on 02/21/2024 at 2:06:09 PM Final [facility] Work Phone: nm Heart Perfusion W stress and W radionuclide Aaron 73-05-4795Mkdnjg exercise Myoview cardiac perfusion stress test. No evidence of ischemia or myocardial infarction by perfusion imaging. Normal left ventricular systolic function, ejection fraction 67%. No exercise provoked significant ischemic ECG changes or chest pain symptoms. When compared to a study from 2009, no significant interval changes are seen. Signed by: Clarissa Sanchez 02/07/2024 4:47 PM Dictation workstation: [id number] By: Clarissa Sanchez, Lora Elaine STUDY: MYOCARDIAL PERFUSION STRESS TEST WITH EXERCISE Performing facility: [facility], [address], [address], [place] [address] [facility] Provider: [facility] PCP: Dr. Trang Bello Supervising provider: Marina Goldsmith MD INDICATION: Abnormal EKG; PVC Murmur HISTORY: Gender: M; Age: 83 y/o ; Height: HT 180.3 cm cm; Weight: WT 77.111 kg kg. Abnormal EKG; High Cholesterol; Diabetes; HTN; Arrhythmias; A-fib Quit smoking 34 years ago. COMPARISON: Previous nuclear testing completed [id number] at [facility]. ACCESSION NUMBER(S): [id number] ORDERING CLINICIAN: MISSY KHOURY TECHNIQUE: ONE DAY [...] There was no evidence of attenuation artifact. MMClarissa Huston MD - 02/07/2024 Interpreted By: Clarissa Sanchez and Giannuzzi Michael STUDY: MYOCARDIAL PERFUSION STRESS TEST WITH EXERCISE Performing facility: [facility], [address], [address], [place] [address] [facility] Provider: Missy Khoury MD, FACC PCP: Dr. Trang Bello Supervising provider: Marina oGldsmith MD INDICATION: Abnormal EKG; PVC Murmur HISTORY: Gender: M; Age: 83 y/o ; Height: HT 180.3 cm cm; Weight: WT 77.111 kg kg. Abnormal EKG; High Cholesterol; Diabetes; HTN; Arrhythmias; A-fib Quit smoking 34 years ago. COMPARISON: Previous nuclear testing completed [id number] at [facility]. ACCESSION NUMBER(S): [id number] ORDERING CLINICIAN: MISSY KHOURY TECHNIQUE: ONE DAY [...] Clarissa Sanchez 02/07/2024 4:47 PM Dictation workstation: [id number] [facility] Work Phone: Radiology Study observation (narrative)[facility] Work Phone: nm Heart Perfusion W stress and W radionuclide IV Ordered By: Clarissa Sanchez on 73-13-4750CuwouhqpfjMercy Health St[facility] Work Phone: NUCLEAR STRESS TESTon 26-27-9317WJZTXAZ STRESS TEST Interpreted By: Clarissa Sanchez and Miller Elaine STUDY: MYOCARDIAL PERFUSION STRESS TEST WITH EXERCISE Performing facility: [facility], [address] [place] [address], [address], [address] Provider: Missy Khoury MD, FACC PCP: Dr. Trang Bello Supervising provider: Marina Goldsmith MD INDICATION: Abnormal EKG; PVC Murmur HISTORY: Gender: M; Age: 83 y/o ; Height: HT 180.3 cm cm; Weight: WT 77.111 kg kg. Abnormal EKG; High Cholesterol; Diabetes; HTN; Arrhythmias; A-fib Quit smoking 34 years ago. COMPARISON: Previous nuclear testing completed [id number] at [facility]. ACCESSION NUMBER(S): [id number] ORDERING CLINICIAN: MISSY KHOURY TECHNIQUE: ONE DAY [...] Clarissa Sanchez 02/07/2024 4:47 PM Dictation workstation: [id number] VA Medical Center Comment on above:Order Comment: Start with exercise, may switch to lexiNUCLEAR STRESS TEST EXERCISE (CARD)on 30-42-8068Jcsjs with exercise, may switch to alfonso Interpreted By: Clarissa Sanchez and Giannuzzi Michael STUDY: MYOCARDIAL PERFUSION STRESS TEST WITH EXERCISE Performing facility: [facility], [address] [place] [address], [address], [address] Provider: Missy Khoury MD, [facility] PCP: Dr. Trang Bello Supervising provider: Marina Goldsmith MD INDICATION: Abnormal EKG; PVC Murmur HISTORY: Gender: M; Age: 83 y/o ; Height: HT 180.3 cm cm; Weight: WT 77.111 kg kg. Abnormal EKG; High Cholesterol; Diabetes; HTN; Arrhythmias; A-fib Quit smoking 34 years ago. COMPARISON: Previous nuclear testing completed [id number] at [facility]. ACCESSION NUMBER(S): [id number] ORDERING CLINICIAN: MISSY KHOURY TECHNIQUE: ONE DAY [...] Clarissa Sanchez 02/07/2024 4:47 PM Dictation workstation: [id number], Radiologist, - 02/07/2024 Start with exercise, may switch to alfonso Interpreted By: Clarissa Sanchez and Giannuzzi Michael STUDY: MYOCARDIAL PERFUSION STRESS TEST WITH EXERCISE Performing facility: [facility], [address] [place] [address], [address], [address] Provider: Missy Khoury MD, FACC PCP: Dr. Trang Bello Supervising provider: Marina Goldsmith MD INDICATION: Abnormal EKG; PVC Murmur HISTORY: Gender: M; Age: 83 y/o ; Height: HT 180.3 cm cm; Weight: WT 77.111 kg kg. Abnormal EKG; High Cholesterol; Diabetes; HTN; Arrhythmias; A-fib Quit smoking 34 years ago. COMPARISON: Previous nuclear testing completed [id number] at [facility]. ACCESSION NUMBER(S): [id number] ORDERING CLINICIAN: MISSY KHOURY TECHNIQUE: ONE DAY [...] Clarissa Sanchez 02/07/2024 4:47 PM Dictation workstation: [id number] [facility] HospitalRadiology Study observation (narrative)[facility]'s HospitalNUCLEAR STRESS TEST EXERCISE (CARD)Ordered By: Radiologist Radiology on 66-17-9352SFLQUniversity of Missouri Children's Hospital Work Phone: aLL BASIC METABOLIC PANELon 82-34-1703Nnfgh gap [Moles/Vol]11.7 mmol/LNOMS HealthcareCalcium [Mass/Vol]8.3 mg/dLLow8.5 - 10.1 mg/dLNOMS HealthcareChloride [Moles/Vol]107 mmol/L98 - 107 mmol/LNOMS Healthcare CO2 [Moles/Vol]28.3 mmol/L21.0 - 32.0 mmol/LNOMS HealthcareCreatinine [Mass/Vol] 1.11 mg/dL0.70 - 1.30 mg/dLNOMS HealthcareGFR/1.73 sq M.predicted CKD-EPI (S/P/Bld) [Vol rate/Area]>6060 - PINFNOMS HealthcareGlucose [Mass/Vol]164 mg/dL High74 - 106 mg/dLNOVT HealthcareInterpretation and review of laboratory results AbnormalNOMS HealthcarePotassium [Moles/Vol]4.0 mmol/L3.5 - 5.1 mmol/LNOMS HealthcareSodium [Moles/Vol]143 mmol/L136 - 145 mmol/LNOMS HealthcareTBH EGFR- NON AF SUDANESE>6060 - PINFNOMS HealthcareUrea nitrogen [Mass/Vol]16.0 mg/dL7.0 - 18.0 mg/dLNOMS HealthcareUrea nitrogen/Creatinine [Mass ratio]14.4 mg/mgNOMS HealthcareCLINISYNCNOMS HealthcareXR DEXA AXIAL SKELETONon 10-61-0275[place] [address] XRay Report Signed Patient: EPIFANIO ALVAREZ MR#: [id number] : 1940 Acct:[id number] Age/Sex: 83 / M ADM Date: 11/09/23 Loc: [facility] Attending Dr: Non-Staff Physician MJayme Ordering Physician: Physician,Non-Staff MJayme Date of Service: 11/09/23 Procedure(s): XR DEXA axial skeleton Accession Number(s): [id number] cc: NIRAV BELLO ; Physician,Non-Staff C[address] [place] [address] Patient Name: EPIFANIO ALVAREZ MRN: [id number] date: 1940 Sex: M Assigned Patient Location: [facility] Current Patient Location: Accession/Order Number: [id number] Exam Date: 11/09/2023 15:05 Report Date: 11/11/2023 [...] prevention and treatment of osteoporosis. Osteoporos Int. 2021;33(10):7297-5081. doi: 10.1007/l79377-634-43688-f. Epub 2021Sep 18. Erratum in: Osteoporos Int. 2021Dec 18;: PMID: 02886432; PMCID: [id number]. Electronically authenticated by: NEVA MARSH Date: 11/11/2023 13:42 Dictated By: Neva Marsh M.D. Signed By: 11/11/23 1345 DD/ 1342 TD/TT: Study Coordinator:BELIAadiologana paula, Radiologist, - 11/11/[address] [address] XRay Report Signed Patient: EPIFANIO ALVAREZ MR#: [id number] : 1940 Acct:[id number] Age/Sex: 83 / M ADM Date: 11/09/23 Loc: [facility] Attending Dr: Non-Staff Physician M.DCassidy Ordering Physician: Physician,Non-Staff Cande Date of Service: 11/09/23 Procedure(s): XR DEXA axial skeleton Accession Number(s): [id number] cc: NIRAV BELLO ; Physician,Non-Staff Cande The [address] [address] Patient Name: EPIFANIO ALVAREZ MRN: [id number] date: 1940 Sex: M Assigned Patient Location: [facility] Current Patient Location: Accession/Order Number: [id number] Exam Date: 11/09/2023 15:05 Report Date: 11/11/2023 [...] prevention and treatment of osteoporosis. Osteoporos Int. 2021;33(10):9104-6851. doi: 10.1007/o12283-461-25627-k. Epub 2021Sep 18. Erratum in: Osteoporos Int. 2021Dec 18;: PMID: 62453393; PMCID: [id number]. Electronically authenticated by: NEVA MARSH Date: 11/11/2023 13:42 Dictated By: Neva Marsh M.D. Signed By: 11/11/23 1345 DD/ 1342 TD/TT: Study Coordinator: ROLANDO HealthcareRadiology Study observation (narrative)[facility] HealthcareXR DEXA AXIAL SKELETONOrdered By: Radiologist Radiology on 58-70-6600VCKA Healthcare Work Phone: ECG 12 Leadon 07-20-6079Ulvbg rhythm with frequent PVCs Otherwise normal EKG QTc 444 [facility] Work Phone: c reactive protein [Mass/volume] in Serum or Plasma Ordered By: Jj Asaad on 12-20-4834UWQ [Mass/Vol]< 0.5 mg/dL0.0-0.5FOur Lady of Mercy HospitalCreatinine [Mass/volume] in Serum or PlasmaOrdered By: Nirav Bello on 73-27-7043Ukqgfqhvyr [Mass/Vol]1.55 mg/dL0.70-1.30[facility]ic[facility] HospitalErythrocyte sedimentation rate by Photometric method Ordered By: Jj Garcia on 29-53-4051WSA Photometric method (Bld) [Velocity]18 mm/hr0-[facility] HospitalNo Panel InformationOrdered By: Nirav Bello on 38-32-3132Rkwejzstb GFR (CKD-EPI)43.863 mL/MinChillicothe HospitalPharmacy Creatinine Clearance (ChemN/AFOur Lady of Mercy HospitalThyrotropin [Units/volume] in Serum or PlasmaOrdered By: Jj Garcia on 29-19-2811BPS Qn1.23 m[IU]/L0.45-5.33[facility] Urea nitrogen [Mass/volume] in Serum or PlasmaOrdered By: Nirav Bello on 53-75-1130Uslj nitrogen [Mass/Vol]31 mg/dL7-[facility] PANCREATIC ELASTASE FECALon 78-27-7211Wegylouesq Elastase, Fecal86 ug Elast./g Critically low>200The [facility] TrumbullComment on above:Result Comment: Results verified by repeat testing Severe Pancreatic Insufficiency: <100 Moderate Pancreatic Insufficiency: 100 - 200 Normal: >200Performed By: #### LIPID, TSH, CMP #### [facility] [address] [place] [address] [address] Leesa SheltonIAC ANTIBODIES PROFILEon 15-22-1335Yomvxtreww Gliadin Abs, IgA 8 unitsNormal0-19The [facility] - TrumbullComment on above:Result Comment: Negative 0 - 19 Weak Positive 20 - 30 Moderate to Strong Positive >30Performed By: #### CELIACP #### [facility] [address] [place] [address] Dr. Leesa UrbinaDeamidated Gliadin Abs, IgG4 unitsNormal0-19The [facility] Comment on above:Result Comment: Negative 0 - 19 Weak Positive 20 - 30 Moderate to Strong Positive >30Performed By: #### CELIACP #### [facility] [address] [place] [address] [address] Leesa Loweryndomysial Antibody IgANegativeNormalNegativeThe [facility] TrumbullComment on above:Performed By: #### CELIACP #### [facility] [address] [place] [address] [address] Leesa UrbinaImmunoglobulin A, Qn, Xpznb172 mg/pBAaxqoy64-392Fkx [facility] TrumbullComment on above:Performed By: #### CELIACP #### [facility] [address] [place] [address] Dr. Leesa Dixon-Transglutaminase (tTG) IgA<6Ekydky1-5Ofb [facility] Comment on above:Result Comment: Negative 0 - 3 Weak Positive 4 - 10 Positive >10 . Tissue Transglutaminase (tTG) has been identified as the endomysial antigen. Studies have demonstr- ated that endomysial IgA antibodies have over 99% specificity for gluten sensitive enteropathy.Performed By: #### CELIACP #### [facility] [address] [place] [address] Dr. Leesa Dixon-Transglutaminase (tTG) IgG6 U/mLCritically high0-5The [facility] TrumbullComment on above:Result Comment: Negative 0 - 5 Weak Positive 6 - 9 Positive >9Performed By: #### CELIACP #### [facility] [address] [place] [address] Dr. Leesa Morales AUTO DIFFon [id number] #0.1 103/ulNormal0.0-0.1The [facility]ullComment on above:Performed By: #### LIPID, TSH, CMP #### [facility] [address] [place] [address] Dr. Leesa UrbinaBasophils/100 WBC (Bld)1.1 %Normal0.2-2.0[facility] Comment on above:Performed By: #### LIPID, TSH, CMP #### [facility] [address] [place] [address] Dr. Leesa Graves #0.6 103/ulNormal0.0-0.7The [facility]ullComment on above: Performed By: #### LIPID, TSH, CMP #### [facility] [address] [place] [address] Dr. Leesa Loweryosinophils/100 WBC (Bld)7.9 %Critically high0.9-7.0The [facility] Centerment on above:Performed By: #### LIPID, TSH, CMP #### [facility] [address] [place] [address] Dr. Leesa Loweryrythrocyte distribution width (RBC) [Ratio]13.6 %Anfiua24.0-15.0 The [facility] on above:Performed By: #### LIPID, TSH, CMP #### [facility] [address] [place] [address] Dr. Leesa UrbinaHematocrit (Bld) [Volume fraction]34.4 %Critically low42.0-54.0 The [facility]ullComment on above:Performed By: #### LIPID, TSH, CMP #### [facility] [address] [place] [address] Dr. Leesa UrbinaHemoglobin (Bld) [Mass/Vol]11.4 g/dLCritically low14.0-18.0The [facility] on above:Performed By: #### LIPID, TSH, CMP #### [facility] [address] [place] [address] Dr. Leesa Diaz #0.02 10e3/ulNormal0.00-0.03The [facility] on above:Performed By: #### LIPID, TSH, CMP #### [facility] [address] [place] [address] Dr. Leesa Diaz %0.3 %Normal0.0-0.5The [facility] on above: Performed By: #### LIPID, TSH, CMP #### [facility] [address] [place] [address] Dr. Leesa Cordova #2.1 103/ulNormal1.2-3.8The [facility]Comment on above:Performed By: #### LIPID, TSH, CMP #### [facility] [address] [place] [address] Dr. Leesa Bhattmphocytes/100 WBC (Bld)28.1 %Eypsxa21.5-60.0The [facility]Comment on above:Performed By: #### LIPID, TSH, CMP #### [facility] [address] [place] [address] Dr. Leesa OrtizUAL DIFF REQNONormalThe [facility]ullComment on above: Performed By: #### LIPID, TSH, CMP #### [facility] [address] [place] [address] Dr. Leesa Mcmillan (RBC) [Entitic mass]31.1 rcWfxpnw16.9-34.0The [facility]ullComment on above:Performed By: #### LIPID, TSH, CMP #### [facility] [address] [place] [address] Dr. Leesa Mcmillan (RBC) [Mass/Vol]33.1 g/bPAjneqo59.9-35.2The [facility]ullComment on above:Performed By: #### LIPID, TSH, CMP #### [facility] [address] [place] [address] Dr. Leesa Mcmillan (RBC) [Entitic vol]93.7 zUBbsdar43.0-94.0The [facility]ullComment on above:Performed By: #### LIPID, TSH, CMP #### [facility] [address] [place] [address] Dr. Leesa Howard #0.4 103/ulNormal0.3-0.8The [facility]ullComment on above:Performed By: #### LIPID, TSH, CMP #### [facility] [address] [place] [address] Dr. Leesa Napolesocytes/100 WBC (Bld)6.0 %Normal1.7-12.0The [facility] Comment on above:Performed By: #### LIPID, TSH, CMP #### [facility] [address] [place] [address] Dr. Leesa Mendoza #4.2 103/ulNormal1.4-6.5The [facility]Comment on above:Performed By: #### LIPID, TSH, CMP #### [facility] [address] [place] [address] Dr. Leesa Asherutrophils/100 WBC (Bld)56.6 %Tdhkmt67.0-75.0The [facility]ullComment on above:Performed By: #### LIPID, TSH, CMP #### [facility] [address] [place] [address] Dr. Leesa Birchlet mean volume (Bld) [Entitic vol]10.1 fLNormal9.5-13.5The [facility]ullComment on above:Performed By: #### LIPID, TSH, CMP #### [facility] [address] [place] [address] Dr. Leesa UrbinaPLT195 103/ahCmpaya749-804Yla [facility] Centerment on above: Performed By: #### LIPID, TSH, CMP #### [facility] [address] [place] [address] Dr. Leesa UrbinaRBC3.67 106/ulCritically low4.70-6.10The [facility] on above:Performed By: #### LIPID, TSH, CMP #### [facility] [address] [place] [address] Dr. Leesa UrbinaWBC7.3 103/ulNormal4.0-11.0The [facility]Comment on above: Performed By: #### LIPID, TSH, CMP #### [facility] [address] [place] [address] Dr. Leesa UrbinaFERRITINon 06-71-5184Fhjawoga [Mass/Vol]44.0 ng/mLNormal 26.0-388.0The [facility] on above:Performed By: #### FERR, FETIBC #### [facility] [address] [place] [address] Dr. Leesa Adkins AND TIBCon 09-03-2022% UUVFBZGEXT21.5 %NormalThe [facility]ullComment on above:Performed By: #### FERR, FETIBC #### [facility] [address], [place] [address] Dr. Leesa Adkins [Mass/Vol]69.0 ug/jZHjtjqr43.0-175.0The [facility] Comment on above:Performed By: #### FERR, FETIBC #### [facility] [address], [place] [address] Dr. Leesa Giles LGNNHK112.0 ug/hKUqpsxc997.0-450.0The [facility] Comment on above:Performed By: #### FERR, FETIBC #### [facility] [id number] Leesa Vides Visit (Cardiology)on 27-05-2940Vzgbjn-up visit Diagnoses/Problems Assessed Anticoagulated (V58.61) (Z79.01) Benign essential hypertension (401.1) (I10) Hyperlipidemia (272.4) (E78.5) Paroxysmal atrial fibrillation (427.31) (I48.0) Diabetes mellitus (250.00) (E11.9) Body mass index (BMI) of 24.0 to 24.9 in adult (V85.1) (Z68.24) Never a smoker Orders SocHx: Never a smoker Tobacco Use Screening; Status:Complete; Done: [id number] Patient Instructions Please bring all medicines, vitamins, [...] negative for complaint. Vitals Vital Signs Recorded: [id number] 09:08AM Heart Rate68, L Radial Oozzlyrj951, LUE, Sitting Atkhrouyd46, LUE, Sitting Height5 ft 11 in Dlztbn881 lb BMI Yvcmeicoqe59.13 kg/m2 BSA Calculated1.98 Tobacco Useb) No PHQ-2 [...] MD; Jul 14 2022 10:20AM EST (Author) [facility] TouchworksTobacco Screening.on 64-09-0579Xvems depression screening assessmentNoWest [facility] [employer] DO Work Phone: Fall risk assessmenta) No falls within the last year [facility] [employer] DO Work Phone: Tobacco use status CPHSb) NoMKittitas Valley Healthcare [employer] 250 DO Work Phone: CBC AUTO DIFFon 32-79-5754TOCA #0.1 103/ulNormal 0.0-0.1The [facility]Comment on above:Performed By: #### CBC #### [facility] [address] [place] [address] Dr. Leesa Basiliophils/100 WBC (Bld)1.4 %Normal0.2-2.0The [facility] Comment on above:Performed By: #### CBC #### [facility] [address] [address] [address] Leesa Graves #0.4 103/ulNormal0.0-0.7The [facility]Comment on above: Performed By: #### CBC #### [facility] [address] [place] [address] Dr. Leesa Loweryosinophils/100 WBC (Bld)5.4 %Normal0.9-7.0The [facility] Comment on above:Performed By: #### CBC #### [facility] [address] [place] [address] Dr. Leesa Loweryrythrocyte distribution width (RBC) [Ratio]13.3 %Ionurt34.0-15.0 The [facility]ullComment on above:Performed By: #### CBC #### [facility] [address] [place] [address] Dr. Leesa UrbinaHematocrit (Bld) [Volume fraction]35.8 %Critically low42.0-54.0 The [facility]ullComment on above:Performed By: #### CBC #### [facility] [address] [place] [address] Dr. Leesa UrbinaHemoglobin (Bld) [Mass/Vol]12.0 g/dLCritically low14.0-18.0The [facility]ullComment on above:Performed By: #### CBC #### [facility] [address] [place] [address] Dr. Leesa Diaz #0.01 10e3/ulNormal0.00-0.03The [facility]ullComment on above:Performed By: #### CBC #### [facility] [address] [place] [address] Dr. Leesa Diaz %0.2 %Normal0.0-0.5The [facility]ullComment on above: Performed By: #### CBC #### [facility] [address] [place] [address] Dr. Leesa Cordova #1.7 103/ulNormal1.2-3.8The [facility]ullComment on above:Performed By: #### CBC #### [facility] [address] [place] [address] Dr. Leesa Bhattmphocytes/100 WBC (Bld)26.1 %Qorodi89.5-60.0The [facility]ullComment on above:Performed By: #### CBC #### [facility] [address] [place] [address] Dr. Leesa OrtizUAL DIFF REQNONormalThe [facility]ullComment on above: Performed By: #### CBC #### [facility] [address] [place] [address] Dr. Leesa Mcmillan (RBC) [Entitic mass]31.0 xcFpikxm38.9-34.0The [facility]ullComment on above:Performed By: #### CBC #### [facility] [address] [place] [address] Dr. Leesa Mcmillan (RBC) [Mass/Vol]33.5 g/nQTcegvt75.9-35.2The [facility]ullComment on above:Performed By: #### CBC #### [facility] [address] [place] [address] Dr. Leesa Mcmillan (RBC) [Entitic vol]92.5 xNAyitbh74.0-94.0The [facility]ullComment on above:Performed By: #### CBC #### [facility] [address] [place] [address] Dr. Leesa Howard #0.4 103/ulNormal0.3-0.8The [facility]ullComment on above:Performed By: #### CBC #### [facility] [address] [place] [address] Dr. Leesa Napolesocytes/100 WBC (Bld)6.5 %Normal1.7-12.0The [facility] Comment on above:Performed By: #### CBC #### [facility] [address] [place] [address] Dr. Leesa Mendoza #4.0 103/ulNormal1.4-6.5The [facility]ullComment on above:Performed By: #### CBC #### [facility] [address] [address] [address] Leesa Asherutrophils/100 WBC (Bld)60.4 %Tpytyh45.0-75.0The [facility] on above:Performed By: #### CBC #### [facility] [address] [address] [address] Leesa UrbinaPlatelet mean volume (Bld) [Entitic vol]10.6 fLNormal9.5-13.5The [facility]Com[facility] on above:Performed By: #### CBC #### [facility] [address] [address] [address] Leesa UrbinaPLT185 103/lrEzuvxl031-214Ebu [facility] on above: Performed By: #### CBC #### [facility] [address] [place] [address] Dr. Leesa UrbinaRBC3.87 106/ulCritically low4.70-6.10The [facility] on above:Performed By: #### CBC #### [facility] [address] [place] [address] Dr. Leesa UrbinaWBC6.6 103/ulNormal4.0-11.0The [facility] on above: Performed By: #### CBC #### [facility] [address] [place] [address] Dr. Leesa UrbinaGLYCOHEMOGLOBIN A1Con 16-13-0054TIQ RECOMMENDATIONSEE BELOWNormal The [facility] on above:Result Comment: ADA RECOMMENDED LIMIT 4.0 - 6.0 ADA THERAPEUTIC TARGET < 7.0 ACTION SUGGESTED > 7.0Performed By: #### A1C #### [facility] [address] [place] [address] Dr. Leesa UrbinaGlucose [Mass/Vol]151 mg/dLNormalThSalem City Hospital on above:Performed By: #### A1C #### [facility] [address] [place] [address] Dr. Leesa UrbinaHbA1c (Bld) [Mass fraction]6.9 %Critically high4.5-6.2The [facility] Centerment on above:Performed By: #### A1C #### [facility] [address] [address] [address] Leesa HaywoodID PROFILEon 02-29-3107LHWP-HDL RATIO NORMSAshtabula County Medical Center on above:Result Comment: 3.3 - 4.4 LOW RISK 4.4 - 7.1 AVERAGE RISK 7.1 - 11.0 MODERATE RISK >11.0 HIGH RISKPerformed By: #### LIPID, TSH, CMP #### [facility] [address] [address] [address] Leesa UrbinaCholesterol [Mass/Vol]136 mg/dLNormal<=200[facility] Comment on above:Performed By: #### LIPID, TSH, CMP #### [facility] [address] [address] [address] Leesa UrbinaCholesterol in HDL [Mass/Vol]62 mg/dLCritically wmhd22-47Bdl [facility]ullComtr[facility] on above:Performed By: #### LIPID, TSH, CMP #### [facility] [address] [address] [address] Leesa UrbinaCholesterol in LDL [Mass/Vol]53.0 mg/dLMercy Health Allen Hospital on above:Performed By: #### LIPID, TSH, CMP #### [facility] [address] [address] [address] Leesa Andersesterbritney.total/Cholesterol in HDL [Mass ratio]2.2 {ratio} NormalBarney Children'S Medical CenterComtrinity health [facility] hospital on above:Performed By: #### LIPID, TSH, CMP #### [facility] [address] [address] [address] Leesa UrbinaHDL NORMAL> or = 60 mg/dl - LOW CARDIOVASCULAR RISK <40 mg/dl - HIGH CARDIOVASCULAR RISKMercy Health Allen Hospital on above:Performed By: #### LIPID, TSH, CMP #### [facility] [address] [address] [address] Leesa UrbinaLDL CALC NORMALSEE BELOWNormalThe [facility]calero HospitalComment on above:Result Comment: <100 mg/dl OPTIMAL 100 - 129 mg/dl NEAR OR ABOVE OPTIMAL 130 - 159 mg/dl BORDERLINE HIGH 160 - 189 mg/dl HIGH >190 mg/dl VERY HIGH Performed By: #### LIPID, TSH, CMP #### [facility] [address] [address] [address] Leesa UrbinaTriglyceride [Mass/Vol]105 mg/dLNormal<=150The [facility] Comment on above:Performed By: #### LIPID, TSH, CMP #### [facility] [address] [address] [address] Leesa UrbinaVLDL CALC21.0 mg/dLNormalThe [facility] TrumbullComment on above: Performed By: #### LIPID, TSH, CMP #### [facility] [address] [address] [address] Leesa UrbinaPROF 14(COMP METB)on 81-32-2270Ahoxomx [Mass/Vol]3.4 g/dLNormal 3.4-5.0The [facility]umbullComment on above:Performed By: #### LIPID, TSH, CMP #### [facility] [address] [address] [address] Leesa UrbinaAlbumin/Globulin [Mass ratio]1.1 {ratio}NormalThe [facility] TrumbullComment on above:Performed By: #### LIPID, TSH, CMP #### [facility] [address] [address] [address] Leesa Flores [Catalytic activity/Vol]77 U/YPygpne42-419Sak [facility]ullComment on above:Performed By: #### LIPID, TSH, CMP #### [facility] [address] [address] [address] Leesa Steve [Catalytic activity/Vol]12 U/LCritically nin07-23Sbk [facility]ullComment on above:Performed By: #### LIPID, TSH, CMP #### [facility] [address] [address] [address] Leesa Fernandez gap [Moles/Vol]12.7 mmol/LNormalThe [facility] Comment on above:Performed By: #### LIPID, TSH, CMP #### [facility] [address] [address] [address] Leesa UrbinaAST [Catalytic activity/Vol]19 U/BElungb51-69Oav [facility]ullComment on above:Performed By: #### LIPID, TSH, CMP #### [facility] [address] [place] [address] Dr. Leesa UrbinaBilirubin [Mass/Vol]0.4 mg/dLNormal0.2-1.0The [facility] Comment on above:Performed By: #### LIPID, TSH, CMP #### [facility] [address] [place] [address] Dr. Leesa UrbinaCalcium [Mass/Vol]8.5 mg/dLNormal8.5-10.1[facility] Comment on above:Performed By: #### LIPID, TSH, CMP #### [facility] [address] [place] [address] Dr. Leesa UrbinaChloride [Moles/Vol]107 mmol/ZVoocqv61-549Rgt [facility] Comment on above:Performed By: #### LIPID, TSH, CMP #### [facility] [address] [place] [address] Dr. Leesa UrbinaCO2 [Moles/Vol]27.4 mmol/WMlyfab08.0-32.0[facility] Comment on above:Performed By: #### LIPID, TSH, CMP #### [facility] [address] [place] [address] Dr. Leesa UrbinaCreatinine [Mass/Vol]1.06 mg/dLNormal0.70-1.30The [facility]ullComment on above:Performed By: #### LIPID, TSH, CMP #### [facility] [address] [place] [address] Dr. Leesa Cruz-AF SUDANESE>60Normal>=60The [facility] TrumbullComment on above:Performed By: #### LIPID, TSH, CMP #### [facility] [address] [place] [address] Dr. Leesa LoweryGFR-NON AF SUDANESE>60Normal>=60The [facility] Tr[facility]ullComment on above:Performed By: #### LIPID, TSH, CMP #### [facility] [address] [place] [address] Dr. Leesa UrbinaGlobulin (S) [Mass/Vol]3.1 g/dLNormProMedica Defiance Regional HospitalComment on above:Performed By: #### LIPID, TSH, CMP #### [facility] [address] [place] [address] Dr. Leesa UrbinaGlucose [Mass/Vol]171 mg/dLCritically nrts42-127Rno [facility]ullComment on above:Performed By: #### LIPID, TSH, CMP #### [facility] [address] [place] [address] Dr. Leesa UrbinaPotassium [Moles/Vol]4.1 mmol/LNormal3.5-5.1The [facility] Comment on above:Performed By: #### LIPID, TSH, CMP #### [facility] [address] [place] [address] Dr. Leesa UrbinaProtein [Mass/Vol]6.5 g/dLNormal6.4-8.2The [facility] Comment on above:Performed By: #### LIPID, TSH, CMP #### [facility] [address] [place] [address] Dr. Leesa UrbinaSodium [Moles/Vol]143 mmol/CXpqbfy486-225Ryq [facility] Comment on above:Performed By: #### LIPID, TSH, CMP #### [facility] [address] [place] [address] Dr. Leesa UrbinaUrea nitrogen [Mass/Vol]24.0 mg/dLCritically high7.0-18.0The [facility]ullComment on above:Performed By: #### LIPID, TSH, CMP #### [facility] [address] [place] [address] Dr. Leesa Tobar nitrogen/Creatinine [Mass ratio]22.6 mg/mgNoMercy Health Clermont HospitalComment on above:Performed By: #### LIPID, TSH, CMP #### [facility] [address] [address] [address] Leesa UrbinaBasophils Auto (Bld) [#/Vol]Ordered By: Juan Guzman on 89-78-0829Uzngnncbk (Bld) [#/Vol]0.1 10*3/uL0.0-0.2FOur Lady of Mercy HospitalBasophils/100 WBC Auto (Bld)Ordered By: Juan Guzman on 12-05-2021 Basophils/100 WBC (Bld)0.9 %[facility] HospitalBlood hemoglobin measurement (mass/volume)Ordered By: Juan Guzman on 63-89-1260Wrhrfmaijb (Bld) [Mass/Vol]12.4 g/dL13.0-17.0[facility] HospitalBlood leukocytes automated count (number/volume)Ordered By: Juan Guzman on 72-72-8302UGI (Bld) [#/Vol]7.0 10*3/uL4.5-11.0[facility] COVID-19 Positive/NegativeOrdered By: Juan Guzman on 30-82-6612MDIG-CoV-2 (COVID-19) N gene RENETTA+probe Ql (Resp)NegativeNegativeChillicothe HospitalComment on above:Testing for SARS-CoV-2 by RT-PCR This test was developed and its performance characteristics determined by [employer] ([employer]) and validated at the [facility]. This test has not been FDA [...] By: Juan Guzman on 12-05-2021 Creatinine [Mass/Vol]1.28 mg/dL0.64-1.27[facility] Eosinophils Auto (Bld) [#/Vol]Ordered By: Juan Guzman on 12-05-2021 Eosinophils (Bld) [#/Vol]0.1 10*3/uL0.0-0.45[facility] Eosinophils/100 WBC Auto (Bld)Ordered By: Juan Guzman on 12-05-2021 Eosinophils/100 WBC (Bld)2.1 %[facility] HospitalErythrocyte distribution width Auto (RBC) [Ratio]Ordered By: Juan Guzman on 12-05-2021 Erythrocyte distribution width (RBC) [Ratio]14.6 %12.0-14.8[facility] HospitalEstimated glomerular filtration rate (GFR) non- Ordered By: Juan Guzman on 42-51-1327ZFB/1.73 sq M.predicted among non- blacks MDRD (S/P/Bld) [Vol rate/Area]54 mL/MinChillicothe Hospital Hematocrit Auto (Bld) [Volume fraction]Ordered By: Juan Guzman on 12-05-2021 Hematocrit (Bld) [Volume fraction]37.3 %38.8-50.0[facility] HospitalLaboratory - Hematology and Cell countsOrdered By: Juan Guzman on 01-84-1935Gycjkzwgb RBC/100 WBC (Bld) [Ratio]0.0 %0-0.5FOur Lady of Mercy HospitalLymphocytes Auto (Bld) [#/Vol]Ordered By: Juan Guzman on 13-08-2165Ndvlmmfzpbp (Bld) [#/Vol]1.4 10*3/uL1.00-4.8[facility] HospitalLymphocytes/100 WBC Auto (Bld)Ordered By: Juan Guzman on 12-05-2021 Lymphocytes/100 WBC (Bld)19.8 %[facility] HospitalMCH Auto (RBC) [Entitic mass]Ordered By: Juan Guzman on 10-82-0875UEI (RBC) [Entitic mass] 30.8 pg27.5-35.2FOur Lady of Mercy HospitalMCHC Auto (RBC) [Mass/Vol] Ordered By: Juan Guzman on 36-20-9497VABB (RBC) [Mass/Vol]33.1 g/dL32.5-35.6 [facility] HospitalMCV Auto (RBC) [Entitic vol]Ordered By: Juan Guzman on 76-30-1785EJB (RBC) [Entitic vol]93.1 fL83.5-101[facility] HospitalMonocytes Auto (Bld) [#/Vol]Ordered By: Juan Guzman on 66-75-0386Rrjuflmux (Bld) [#/Vol]0.5 10*3/uL0.0-0.8[facility] HospitalMonocytes/100 WBC Auto (Bld)Ordered By: Juan Guzman on 12-05-2021 Monocytes/100 WBC (Bld)7.3 %[facility] HospitalNeutrophils Auto (Bld) [#/Vol]Ordered By: Juan Guzman on 77-90-1411Jeetgpfcivk (Bld) [#/Vol] 4.9 10*3/uL1.8-7.7FOur Lady of Mercy HospitalNeutrophils/100 WBC Auto (Bld)Ordered By: Juan Guzman on 05-40-6968Hsnunedlfsy/100 WBC (Bld)69.9 % [facility] HospitalNo Panel InformationOrdered By: Juan Guzman on 24-18-2583Mrvjwlwho GFR ()> 60 mL/MinChillicothe HospitalComment on above:GFR estimated reference range: According to KDOQI guidelines, <60 ml/min/1.73m2 is sufficient todiagnose a patient with chronic kidney disease.Pharmacy Creatinine Clearance (ChemN/[facility] HospitalPlatelet mean volume Auto (Bld) [Entitic vol]Ordered By: Juan Guzman on 12-81-1577Jlrupmzn mean volume (Bld) [Entitic vol]8.9 fL6.6-10.1FOur Lady of Mercy HospitalPlatelets Auto (Bld) [#/Vol]Ordered By: Juan Guzman on 04-91-1667Dtlfurdpl (Bld) [#/Vol]194 10*3/hJ441-025YsbmbccspChillicothe HospitalRBC Auto (Bld) [#/Vol]Ordered By: Juan Guzman on 48-08-0784GWM (Bld) [#/Vol]4.00 10*6/uL3.90-5.60[facility] Hospitalerum or plasma calcium measurement (mass/volume)Ordered By: Juan Guzman on 12-05-2021 Calcium [Mass/Vol]9.2 mg/dL8.2-10.2FOur Lady of Mercy Hospital - Andersonerum or plasma chloride measurement (moles/volume)Ordered By: Juan Guzman on 63-78-5978Xhprinqc [Moles/Vol]107 mmol/P99-021QeyfeaktwChillicothe Hospital Serum or plasma glucose measurement (mass/volume)Ordered By: Juan Guzman on 10-40-2393Sczznwz [Mass/Vol]117 mg/pV45-480QynsztmviChillicothe Hospital Comment on above:ADA recommended reference range Random Glucose Reference Range is dependent on time and content of last meal. Glucose of more than 200 mg/dL in a nonstressed, ambulatory subject supports the diagnosis of Diabetes Mellitus.Serum or plasma potassium measurement (moles/volume)Ordered By: Juan Guzman on 85-11-1658Fiaotsehp [Moles/Vol]4.6 mmol/L3.5-5.1FOur Lady of Mercy Hospital - Andersonerum or plasma sodium measurement (moles/volume)Ordered By: Juan Guzman on 13-56-2458Pnktoi [Moles/Vol]141 mmol/D728-570PvsjxhfbeSelect Medical TriHealth Rehabilitation Hospitalerum or plasma total carbon dioxide measurement (moles/volume)Ordered By: Juan Guzman on 48-49-9283MM3 [Moles/Vol]26.2 mmol/L22.0-30.0[facility] Hospitalerum or plasma urea nitrogen measurement (mass/volume)Ordered By: Juan Guzman on 12-05-2021 Urea nitrogen [Mass/Vol]23 mg/dL9-23[facility] HospitalCBC AUTO DIFFon 12-42-7361JBLV #0.1 103/ulNormal0.0-0.1The [facility] - TrumbullComment on above:Performed By: #### CBC #### [facility] [address] [address] [address] Leesa UrbinaBasophils/100 WBC (Bld)0.8 %Normal0.2-2.0The [facility] Comment on above:Performed By: #### CBC #### [facility] [address] [address] [address] Leesa Graves #0.4 103/ulNormal0.0-0.7The [facility] - TrumbullComment on above: Performed By: #### CBC #### [facility] [address] [address] [address] Leesa Loweryosinophils/100 WBC (Bld)5.6 %Normal0.9-7.0The [facility] Comment on above:Performed By: #### CBC #### [facility] [address] [address] [address] Leesa Loweryrythrocyte distribution width (RBC) [Ratio]13.4 %Rgzwpy05.0-15.0 [facility] Medical CenterComment on above:Performed By: #### CBC #### [facility] [address] [address] [address] Leesa UrbinaHematocrit (Bld) [Volume fraction]36.1 %Critically low42.0-54.0 The [facility] TrumbullComment on above:Performed By: #### CBC #### [facility] [address] [address] [address] Leesa UrbinaHemoglobin (Bld) [Mass/Vol]11.8 g/dLCritically low14.0-18.0The [facility] TrumbullComment on above:Performed By: #### CBC #### [facility] [address] [address] [address] Leesa Diaz #0.02 10e3/ulNormal0.00-0.03The [facility] - TrumbullComment on above:Performed By: #### CBC #### [facility] [address] [address] [address] Leeas Diaz %0.3 %Normal0.0-0.5The [facility] on above: Performed By: #### CBC #### [facility] [address] [place] [address] Dr. Leesa Cordova #1.8 103/ulNormal1.2-3.8The [facility] on above:Performed By: #### CBC #### [facility] [address] [place] [address] Dr. Leesa Aguillonhocytes/100 WBC (Bld)28.4 %Occbbc50.5-60.0The [facility] on above:Performed By: #### CBC #### [facility] [address] [place] [address] Dr. Leesa Felder DIFF REQNONormalThe [facility] - TrumbullComment on above: Performed By: #### CBC #### [facility] [address] [place] [address] Dr. Leesa Mcmillan (RBC) [Entitic mass]30.7 zoLuzqze64.9-34.0The [facility] on above:Performed By: #### CBC #### [facility] [address] [place] [address] Dr. Leesa Mcmillan (RBC) [Mass/Vol]32.7 g/pLRtgiye39.9-35.2The [facility] on above:Performed By: #### CBC #### [facility] [address] [place] [address] Dr. Leesa Mcmillan (RBC) [Entitic vol]94.0 nRBivxcz35.0-94.0The [facility] on above:Performed By: #### CBC #### [facility] [address] [place] [address] Dr. Leesa Howard #0.5 103/ulNormal0.3-0.8The [facility] HospitalComment on above:Performed By: #### CBC #### [facility] [address] [address] [address] Leesa Napolesocytes/100 WBC (Bld)8.1 %Normal1.7-12.0The [facility] Comment on above:Performed By: #### CBC #### [facility] [address] [place] [address] Dr. Leesa AsherUT #3.5 103/ulNormal1.4-6.5The [facility] TrumbullComment on above:Performed By: #### CBC #### [facility] [address] [place] [address] Dr. Leesa Asherutrophils/100 WBC (Bld)56.8 %Fojrwp18.0-75.0The [facility] TrumbullComment on above:Performed By: #### CBC #### [facility] [address] [place] [address] Dr. Leesa UrbinaPlatelet mean volume (Bld) [Entitic vol]10.3 fLNormal9.5-13.5The [facility] TrumbullComment on above:Performed By: #### CBC #### [facility] [address] [place] [address] Dr. Leesa UrbinaPLT179 103/cvVjulql202-737Ogy [facility] TrumbullComment on above: Performed By: #### CBC #### [facility] [address] [place] [address] Dr. Leesa UrbinaRBC3.84 106/ulCritically low4.70-6.10The [facility] TrumbullComment on above:Performed By: #### CBC #### [facility] [address] [place] [address] Dr. Leesa UrbinaWBC6.2 103/ulNormal4.0-11.0The [facility] on above: Performed By: #### CBC #### [facility] [address] [place] [address] Dr. Leesa UrbinaGLYCOHEMOGLOBIN A1Con 67-58-5419WDA RECOMMENDATIONSEE BELOWNormal The Cornelius HospitalComment on above:Result Comment: ADA RECOMMENDED LIMIT 4.0 - 6.0 ADA THERAPEUTIC TARGET < 7.0 ACTION SUGGESTED > 7.0Performed By: #### LIPID, TSH, CMP #### [facility] [address] [place] [address] Dr. Leesa UrbinaGlucose [Mass/Vol]151 mg/dLProvidence HospitalComment on above:Performed By: #### LIPID, TSH, CMP #### [facility] [address] [place] [address] Dr. Leesa UrbinaHbA1c (Bld) [Mass fraction]6.9 %Critically high4.5-6.2The [facility] TrumbullComment on above:Performed By: #### LIPID, TSH, CMP #### [facility] [address] [place] [address] Dr. Leesa HaywoodID PROFILEon 88-47-9114MWHB-HDL RATIO NORMSUniversity Hospitals Lake West Medical CenterComment on above:Result Comment: 3.3 - 4.4 LOW RISK 4.4 - 7.1 AVERAGE RISK 7.1 - 11.0 MODERATE RISK >11.0 HIGH RISKPerformed By: #### LIPID, TSH, CMP #### [facility] [address] [place] [address] Dr. Leesa Andersesterol [Mass/Vol]150 mg/dLNormal<=200The [facility] Comment on above:Performed By: #### LIPID, TSH, CMP #### [facility] [address] [place] [address] Dr. Leesa UrbinaCholesterol in HDL [Mass/Vol]60 mg/nFVrsqpe80-81Adw [facility] TrumbullComment on above:Performed By: #### LIPID, TSH, CMP #### [facility] [address] [place] [address] Dr. Leesa Andersesterol in LDL [Mass/Vol]70.8 mg/dLProvidence HospitalComment on above:Performed By: #### LIPID, TSH, CMP #### [facility] [address] [place] [address] Dr. Yilan ChangCholesterol.total/Cholesterol in HDL [Mass ratio]2.5 {ratio} NormalThe [facility] - TrumbullComment on above:Performed By: #### LIPID, TSH, CMP #### [facility] [address] [place] [address] Dr. Leesa Gaming NORMAL> or = 60 mg/dl - LOW CARDIOVASCULAR RISK <40 mg/dl - HIGH CARDIOVASCULAR RISKProvidence HospitalComment on above:Performed By: #### LIPID, TSH, CMP #### [facility] [address] [place] [address] Dr. Leesa UrbinaLDL CALC NORMALSEE BELOWProvidence HospitalComment on above:Result Comment: <100 mg/dl OPTIMAL 100 - 129 mg/dl NEAR OR ABOVE OPTIMAL 130 - 159 mg/dl BORDERLINE HIGH 160 - 189 mg/dl HIGH >190 mg/dl VERY HIGH Performed By: #### LIPID, TSH, CMP #### [facility] [address] [place] [address] Dr. Leesa UrbinaTriglyceride [Mass/Vol]96 mg/dLNormal<=150The [facility] Comment on above:Performed By: #### LIPID, TSH, CMP #### [facility] [address] [place] [address] Dr. Leesa Goldman CALC19.2 mg/dLNoMercy Health Clermont HospitalComment on above: Performed By: #### LIPID, TSH, CMP #### [facility] [address] [place] [address] Dr. Leesa VillegasB CREAT RATIO RANDOMon 37-88-4614pHEP<1.3Normal<=30.0The [facility] - TrumbullComment on above:Performed By: #### LIPID, TSH, CMP #### [facility] [address] [place] [address] Dr. Leesa Smith CR RATIO11.4 mg/gNormal0.0-29.9The [facility] TrumbullComment on above:Performed By: #### LIPID, TSH, CMP #### [facility] [address] [place] [address] Dr. Leesa Smith CR RATIO RANGESEE BELOWProvidence HospitalComment on above:Result Comment: NO MICROALBUMINURIA 0-29 MG/G CLINICAL MICROALBUMINURIA 30-300 MG/G MACROALBUMINURIA >300 MG/GPerformed By: #### LIPID, TSH, CMP #### [facility] [address] [address] [address] Leesa Hansen MFXFW801.03 mg/kUKcffot84.00-300.00The [facility] Comment on above:Performed By: #### LIPID, TSH, CMP #### [facility] [address] [address] [address] Leesa Adams 14(COMP METB)on 81-29-5650Jnuwisw [Mass/Vol]2.3 g/dL Critically low3.4-5.0The [facility] - TrumbullComment on above:Performed By: #### LIPID, TSH, CMP #### [facility] [address] [place] [address] Dr. Leesa UrbinaAlbumin/Globulin [Mass ratio]0.5 {ratio}NormalThe [facility] TrumbullComment on above:Performed By: #### LIPID, TSH, CMP #### [facility] [address] [address] [address] Leesa Flores [Catalytic activity/Vol]77 U/QVcptmq14-672Zzs [facility] on above:Performed By: #### LIPID, TSH, CMP #### [facility] [address] [address] [address] Leesa Steve [Catalytic activity/Vol]16 U/YBokykk98-55Alp Community Regional Medical Centerment on above:Performed By: #### LIPID, TSH, CMP #### [facility] [address] [address] [address] Leesa Fernandez gap [Moles/Vol]13.8 mmol/LNormalThe [facility] Comment on above:Performed By: #### LIPID, TSH, CMP #### [facility] [address] [address] [address] Leesa No [Catalytic activity/Vol]15 U/GCfwlvx80-13Dzz [facility] HospitalComment on above:Performed By: #### LIPID, TSH, CMP #### [facility] [address] [address] [address] Leesa UrbinaBilirubin [Mass/Vol]0.5 mg/dLNormal0.2-1.0[facility] Comment on above:Performed By: #### LIPID, TSH, CMP #### [facility] [address] [place] [address] Dr. Leesa UrbinaCalcium [Mass/Vol]8.7 mg/dLNormal8.5-10.1The [facility] Comment on above:Performed By: #### LIPID, TSH, CMP #### [facility] [address] [place] [address] Dr. Leesa UrbinaChloride [Moles/Vol]107 mmol/RHlqxnn58-656Wgl [facility] Comment on above:Performed By: #### LIPID, TSH, CMP #### [facility] [address] [place] [address] Dr. Leesa UrbinaCO2 [Moles/Vol]26.2 mmol/KWjlwys18.0-32.0The [facility] Comment on above:Performed By: #### LIPID, TSH, CMP #### [facility] [address] [place] [address] Dr. Leesa UrbinaCreatinine [Mass/Vol]1.25 mg/dLNormal0.70-1.30The [facility] TrumbullComment on above:Performed By: #### LIPID, TSH, CMP #### [facility] [address] [place] [address] Dr. Leesa LoweryGFR-AF SUDANESE>60Normal>=60The [facility] - TrumbullComment on above:Performed By: #### LIPID, TSH, CMP #### [facility] [address] [place] [address] Dr. Leesa LoweryGFR-NON AF GJNICDVB06 mL/min/1.60r7Amalcnejsh low>=60The [facility] TrumbullComment on above:Performed By: #### LIPID, TSH, CMP #### [facility] [address] [place] [address] Dr. Leesa UrbinaGlobulin (S) [Mass/Vol]4.3 g/dLNoMercy Health Clermont HospitalComment on above:Performed By: #### LIPID, TSH, CMP #### [facility] [address] [address] [address] Leesa UrbinaGlucose [Mass/Vol]137 mg/dLCritically iwpt89-461Ypi [facility] TrumbullComment on above:Performed By: #### LIPID, TSH, CMP #### [facility] [address] [place] [address] Dr. Leesa UrbinaPotassium [Moles/Vol]4.0 mmol/LNormal3.5-5.1The [facility] Comment on above:Performed By: #### LIPID, TSH, CMP #### [facility] [address] [address] [address] Leesa UrbinaProtein [Mass/Vol]6.6 g/dLNormal6.4-8.2The [facility] Comment on above:Performed By: #### LIPID, TSH, CMP #### [facility] [address] [place] [address] Dr. Leesa UrbinaSodium [Moles/Vol]143 mmol/CYxyhbl498-621Qyg [facility] Comment on above:Performed By: #### LIPID, TSH, CMP #### [facility] [address] [address] [address] Leesa UrbinaUrea nitrogen [Mass/Vol]24.0 mg/dLCritically high7.0-18.0The [facility] TrumbullComment on above:Performed By: #### LIPID, TSH, CMP #### [facility] [address] [place] [address] Dr. Leesa UrbinaUrea nitrogen/Creatinine [Mass ratio]19.2 mg/mgNoMercy Health Clermont HospitalComment on above:Performed By: #### LIPID, TSH, CMP #### [facility] [address] [place] [address] Dr. Leesa Martinez 28-86-2079MMO4.996 uIU/mLNormal0.358-3.740The [facility] TrumbullComment on above:Performed By: #### LIPID, TSH, CMP #### [facility] [address], [place] [address] Dr. Leesa Carvajal Screening.on 54-32-6517Mgrmo depression screening assessmentNoWest [facility] DO Work Phone: Fall risk assessmenta) No falls within the last year [facility] [address] DO Work Phone: Tobacco use status CPHSb) NoMKittitas Valley [facility] [place] [address] DO Work Phone: Vital Signs Date TimeVital SignValuePerforming NenzdfxbmFloadqyj43-60-2341 13:41-0500Body mass index (BMI) [Ratio]24.37 kg/a7Podpurjanki Batemant SHIPPING AND RECEIVING MATERIAL HANDLER Work Phone: [facility] HospitalDqbcmzrcup98-32-6457 13:41-0500Body temperature 97.59 [degF]Allison Batemant SHIPPING AND RECEIVING MATERIAL HANDLER Work Phone: [facility] HospitalVrhlpipass24-01-8140 13:41-0500Body audtit52.84 kgCarjanki Batemant SHIPPING AND RECEIVING MATERIAL HANDLER Work Phone: noResearch [facility] CampusDfieqnqrvl03-72-0958 13:41-0500Diastolic blood mm[Hg]Allison Batemant SHIPPING AND RECEIVING MATERIAL HANDLER Work Phone: noResearch [facility] Center-[facility]ok[facility] CampusCqpgkxqbpz07-81-3218 13:41-0500Heart rate97 /min Allison Batemant SHIPPING AND RECEIVING MATERIAL HANDLER Work Phone: [facility] HospitalWszrblvdfo47-02-7612 13:41-3111QfF8% (BldA) [Mass fraction]98 %Allison Batemant SHIPPING AND RECEIVING MATERIAL HANDLER Work Phone: noResearch Medical Center-Brookside CampusYjmqqbgnmw15-89-4738 13:41-0500Systolic blood ipjbzcts878 mm[Hg]Allison Batemant SHIPPING AND RECEIVING MATERIAL HANDLER Work Phone: noResearch [facility] Center-[facility]ok[facility] CampusJasbpxvnyc40-50-6568 15:35-0400Diastolic blood mm[Hg]Cecilia Garcia MD Work Phone: [facility] HospitalSrusyguooh16-47-6802 15:35-0400Systolic blood ghlmkrko807 mm[Hg]Cecilia Garcia MD Work Phone: [facility] HospitalOpzcpatoiz66-33-4820 08:06-0400Diastolic blood zerxojze39 mm[Hg]Seng Angeles PEDIATRICIAN MANAGING PARTNER-POST HOLE DIGGING MACHINE OPERATOR Work Phone: [phone]08-19-2025 08:06-0400 Systolic blood yldzmsla597 mm[Hg]Seng Angeles PEDIATRICIAN MANAGING PARTNER-POST HOLE DIGGING MACHINE OPERATOR Work Phone: [phone]08-19-2025 07:53-0400 Body pyacrk674.3 cmSeng Angeles PEDIATRICIAN MANAGING PARTNER-POST HOLE DIGGING MACHINE OPERATOR Work Phone: [phone] [place], [place] 4522608-19-2025 07:53-0400 Body mass index (BMI) [Ratio]22.43 kg/i0LgjuxSeng Angeles PEDIATRICIAN MANAGING PARTNER-POST HOLE DIGGING MACHINE OPERATOR Work Phone: [phone]08-19-2025 07:53-0400 Body .94 kgSeng Angeles PEDIATRICIAN MANAGING PARTNER-POST HOLE DIGGING MACHINE OPERATOR Work Phone: [phone]08-19-2025 07:53-0400 Heart rate72 /minDjere Angeles PEDIATRICIAN MANAGING PARTNER-POST HOLE DIGGING MACHINE OPERATOR Work Phone: [phone]08-05-2025 16:01-0400 Diastolic blood ikpjosji48 mm[Hg]Seng Angeles PEDIATRICIAN MANAGING PARTNER-POST HOLE DIGGING MACHINE OPERATOR Work Phone: [phone]08-05-2025 16:01-0400 Systolic blood mm[Hg]Seng Angeles PEDIATRICIAN MANAGING PARTNER-POST HOLE DIGGING MACHINE OPERATOR Work Phone: [phone]08-05-2025 15:56-0400 Body dasreo218.3 cmSeng Angeles PEDIATRICIAN MANAGING PARTNER-POST HOLE DIGGING MACHINE OPERATOR Work Phone: [phone]08-05-2025 15:56-0400 Body mass index (BMI) [Ratio]22.82 kg/h0UxapmSeng Angeles PEDIATRICIAN MANAGING PARTNER-POST HOLE DIGGING MACHINE OPERATOR Work Phone: [phone]08-05-2025 15:56-0400 Body ioqpgz14.21 kgSeng Angeles PEDIATRICIAN MANAGING PARTNER-POST HOLE DIGGING MACHINE OPERATOR Work Phone: [facility]08-05-2025 15:56-0400 Heart rate60 /minDjere Angeles PEDIATRICIAN MANAGING PARTNER-POST HOLE DIGGING MACHINE OPERATOR Work Phone: [facility]07-13-2025 09:37-0400 Body mass index (BMI) [Ratio]23.63 kg/f2WpmjtgJaqui Bear SHIPPING AND RECEIVING MATERIAL HANDLER Work Phone: [facility] HospitalRtjfzelivb08-22-0126 09:37-0400Body .58 kgJaqui Bear SHIPPING AND RECEIVING MATERIAL HANDLER Work Phone: [facility] HospitalYvksbambqi23-51-7256 09:37-0400Diastolic blood qbyhaeqq16 mm[Hg]Jaqui Bear SHIPPING AND RECEIVING MATERIAL HANDLER Work Phone: [facility] HospitalTyhlfpteil66-78-7896 09:37-0400Heart rate63 /min Jaqui Bear SHIPPING AND RECEIVING MATERIAL HANDLER Work Phone: [phone] HospitalGwrmvgbisz36-32-0270 09:37-3553SkP4% (BldA) [Mass fraction]96 %Jaqui Bear SHIPPING AND RECEIVING MATERIAL HANDLER Work Phone: [facility] HospitalUsftlnvqck70-00-5808 09:37-0400Systolic blood qflihtcf912 mm[Hg]Jaqui Bear SHIPPING AND RECEIVING MATERIAL HANDLER Work Phone: [facility] HospitalSuloxgzftz86-28-4323 10:09-0400Body xxoqai485.3 cmPaul Lorenzo DO Work Phone: [facility] HospitalBngvxvvdth30-54-0898 10:09-0400Body mass index (BMI) [Ratio]23.63 kg/m2Paul Biedenbach DO Work Phone: [facility] HospitalWjisdzdzgx22-53-4354 10:09-0400Body uklvyw83.58 kgPaul Biemibach DO Work Phone: [facility] HospitalFhyddthfrv94-31-8658 17:00-0400Diastolic blood mkgxekhb43 mm[Hg]Nirav Bello DO Work Phone: 1([phone] [place], [place] 9884706-30-2025 17:00-0400 Heart rate66 /minNirav Bello DO Work Phone: [phone] [place], [place] 9884706-30-2025 17:00-0400 Respiratory rate16 /minTulioata Ace DO Work Phone: [phone] [place], [place] 9884706-30-2025 17:00-0400 SaO2% (BldA) [Mass fraction]95 %Nirav Bello DO Work Phone: [phone])[address]06-30-2025 17:00-0400 Systolic blood ldyvykns337 mm[Hg]Nirav Bello DO Work Phone: [phone] [place], [place] 48[address]306-30-2025 15:24-0400 Body tfnollcjwyx96.2 [degF]Nirav Bello DO Work Phone: [phone] [place], [place] 4847306-30-2025 15:24-0400 Inhaled oxygen flow rate8 L/minNirav Ace DO Work Phone: 1(704)[address] [place], [place] 4847306-30-2025 13:26-0400 Body .8 cmMellocolette Ace DO Work Phone: 3(665)[address] [place], [place] 4847306-30-2025 13:26-0400 Body jgxbyq04.57 kgMellocolette Ace DO Work Phone: 3(498)4-[address] [place], [place] 9884706-24-2025 09:37-0400 Body rivlqj903.3 cmNirav Downingman DO Work Phone: 1(962)8-[address] [place], [place] [address]Tjzmrzjayn09-48-8859 09:37-0400Body mass index (BMI) [Ratio]23.49 kg/c0AdvhycwNirav Bello DO Work Phone: 5(343)542-[address] [place], [place] [address]Flbapfzccx92-86-4080 09:37-0400Body yylcix64.17 kgNirav Bello DO Work Phone: 3(369)384-84[facility] HospitalTskcvjofcx17-92-3455 09:37-0400Heart rate67 /min Nirav Bello DO Work Phone: [facility] HospitalUxrewukgbb09-88-4931 09:37-9753JsG7% (BldA) [Mass fraction]97 %Nirav Bello DO Work Phone: [facility] HospitalVetejlwwfh57-97-2432 09:21-0400Body tmyyqu642.3 cmPaul Biedenlokesh DO Work Phone: [facility] HospitalHzhvoibscw95-63-9423 09:21-0400Body mass index (BMI) [Ratio]25.1 kg/m2Paul Biedenbach DO Work Phone: [facility] HospitalSjtrnhasum71-93-2866 09:21-0400Body jqzyrw89.11 kgPaul Biedenbach DO Work Phone: [facility] HospitalCrtzrztqac34-56-9638 11:54-0400Body mhbarw119.3 cmMissy Khoury MD Work Phone: 2(573)[address]05-12-2025 11:54-0400 Body mass index (BMI) [Ratio]23.15 kg/y0YzdpkyMissy Khoury MD Work Phone: 5(961)801-[address] [place], [place] 0211405-12-2025 11:54-0400 Body vankyb33.3 kgMissy Khoury MD Work Phone: 2(099)561-[address] [place], [place] 0211405-12-2025 11:54-0400 Diastolic blood lgfjumaj97 mm[Hg]Missy Khoury MD Work Phone: 3(119)575-[address] [place], [place] 0211405-12-2025 11:54-0400 Heart rate64 /minMissy Khoury MD Work Phone: 1(877)210-[address] [place], [place] 0211405-12-2025 11:54-0400 Systolic blood wtlrzvuz649 mm[Hg]Missy Khoury MD Work Phone: 3(541)935-[address] [place], [place] 0211404-14-2025 08:03-0400 Body zzikbt928.3 cmNirav Bello DO Work Phone: [facility] HospitalGhnjutokzh91-06-5305 08:03-0400Body mass index (BMI) [Ratio]24.96 kg/m1LgxvuzjNirav Bello DO Work Phone: 1(249)3-[address] [place], [place] [address]Owhmasmpqg35-22-3172 08:03-0400Body mjwnyp30.66 kgMelloraulata Bello DO Work Phone: 1(882)5-[address] [place], [place] [address]Jmkozcczir21-13-8111 08:03-0400Diastolic blood yydixaom78 mm[Hg]Nirav Bello DO Work Phone: 1(508)[address]04-14-2025 08:03-0400Heart rate62 /min Nirav Ace DO Work Phone: 6(227)[address] [place] [address]-14-2025 08:03-5554BfB2% (BldA) [Mass fraction]96 %Nirav Bello DO Work Phone: 1(950)[address]04-14-2025 08:03-0400Systolic blood etlvtiie447 mm[Hg]Nirav Bello DO Work Phone: 2(698)4-[address] [place], [place] [address]Szmdjvfygu64-02-3722 11:25-0400Diastolic blood iqvnjpaf12 mm[Hg]Nirav Bello DO Work Phone: 1(380)1-[address] [place], [place] 9884703-19-2025 11:25-0400 Heart rate74 /minMelloraulata Downingman DO Work Phone: 9(122)[address]03-19-2025 11:25-0400 Respiratory rate16 /minMellocolette Bello DO Work Phone: 9(680)0-[address] [place], [place] 9884703-19-2025 11:25-0400 SaO2% (BldA) [Mass fraction]96 %Nirav Ace DO Work Phone: 2(239)7-[address] [place], [place] 9884703-19-2025 11:25-0400 Systolic blood vmqahntk860 mm[Hg]Nirav Bello DO Work Phone: 7(597)[address]03-19-2025 10:05-0400 Body .34 cmJecolette Bello DO Work Phone: 4(894)7-[address] [place], [place] 9884703-19-2025 10:05-0400 Body lungtsqqsgz37.5 [degF]Niravata Bello DO Work Phone: 1(296)295-[address] [place], [place] 9884703-19-2025 10:05-0400 Body mbiqqq53.29 kgNirav Bello DO Work Phone: 5(951)[address]12-18-2024 09:57-0500 Body urpdck915.3 cmNirav Ace DO Work Phone: 9(867)[address] [place], [place] 9606312-18-2024 09:57-0500Body mass index (BMI) [Ratio]24.81 kg/l6Eypoxbrata Bello DO Work Phone: 6(620)[address] [place], [place] 9606312-18-2024 09:57-0500Body pwpjyb41.2 kg Nirav Ace DO Work Phone: 7(382)[address] [place], [place] 9606312-18-2024 09:57-0500Diastolic blood ihnezhwy58 mm[Hg]Nirav Bello DO Work Phone: 9(182)[address] [place], [place] 9606312-18-2024 09:57-0500Heart rate72 /min Nirav Bello DO Work Phone: 2(587)[address] [place], [place] 9606312-18-2024 09:57-4021EiI1% (BldA) [Mass fraction]97 %Nirav Ace DO Work Phone: 4(556)[facility] [place], [place] [address]Wokxozvaqm28-48-8997 09:57-0500Systolic blood worhdaiw963 mm[Hg]Nirav Bello DO Work Phone: 1(867)[address] [place] [address]-09-2024 14:07-0500Diastolic blood gdaoxvmv93 mm[Hg]Missy Khoury MD Work Phone: [facility]12-09-2024 14:07-0500 Systolic blood elrtrlbi157 mm[Hg]Missy Khoury MD Work Phone: [facility]12-09-2024 13:39-0500 Body wlwtva845.3 cmMissy Khoury MD Work Phone: 1(440)414-[address] [place], [place] 0211412-09-2024 13:39-0500 Body mass index (BMI) [Ratio]23.99 kg/b7CyzakgMissy Khoury MD Work Phone: 1(420)134-[address] [place], [place] 0211412-09-2024 13:39-0500 Body .02 kgMissy Khoury MD Work Phone: 1(120)552-[address] [place], [place] 0211412-09-2024 13:39-0500 Heart rate48 /minMissy Khoury MD Work Phone: 1(333)325-[address] [place], [place] 0211409-30-2024 07:52-0400 Body wzlmfu329.[address] [place], [place] 3732909-30-2024 07:52-0400 Body mass index (BMI) [Ratio]23.71 kg/m[address] 02-21-2024 07:52-0400Body .[address] 02-21-2024 07:52-0400Diastolic blood zdajajsk21 mm[Hg][address]09-30-2024 07:52-0400Systolic blood irzvnwxa175 mm[Hg][address]09-16-2024 09:44-0400Diastolic blood vcsomoih42 mm[Hg][address]09-16-2024 09:44-0400Heart rate66 /minEly [address] [place], [place] 8500309-16-2024 09:44-0400Systolic blood xzruwukr431 mm[Hg][address]08-22-2024 16:15-0400 Diastolic blood yejzwfla550 mm[Hg]Missy Khoury MD Work Phone: 1(636)509-[address] [place], [place] 0211408-22-2024 16:15-0400 Systolic blood mm[Hg]Missy Khoury MD Work Phone: 1(550)095-[address] [place], [place] 0211408-22-2024 15:24-0400 Body oxwiek104.3 cmMissy Khoury MD Work Phone: 1(813)964-[address] [place], [place] 0211408-22-2024 15:24-0400 Body mass index (BMI) [Ratio]23.71 kg/b2MhzpvmMissy Khoury MD Work Phone: [facility]08-22-2024 15:24-0400 Body yikicw70.11 kgMissy Khoury MD Work Phone: [facility]08-22-2024 15:24-0400 Heart rate72 /minMissy Khoury MD Work Phone: 8(193)581-[address] [place], [place] 0211408-20-2024 09:54-0400 Body .3 cmNirav Bello DO Work Phone: [place] [address]Kcenknulql95-72-5292 09:54-0400Body mass index (BMI) [Ratio]24.22 kg/u6JnvomczNirav Bello DO Work Phone: [address] [place], [place] [address]Xixxdlgdxz29-62-5922 09:54-0400Body fmjnud64.39 kgNirav Bello DO Work Phone: [facility] HospitalXdbbbnqylu37-24-1235 09:54-0400Heart rate75 /min Nirav Bello DO Work Phone: [place] [address]Bcjvczgqfc42-75-4793 09:54-2126UtI4% (BldA) [Mass fraction]97 %Nirav Bello DO Work Phone: [facility] HospitalBhgnzfprhb98-91-7814 08:34-0500Body .3 cmEpifanio Davis MD Work Phone: [facility]02-20-2024 08:34-0500 Body mass index (BMI) [Ratio]23.99 kg/i6JwhptgrEpifanio Davis MD Work Phone: 0([phone]02-20-2024 08:34-0500 Body mversp46.02 kgEpifanio Davis MD Work Phone: [facility]02-20-2024 08:34-0500 Diastolic blood bmpqawqv38 mm[Hg]Epifanio Davis MD Work Phone: [facility]02-20-2024 08:34-0500 Heart rate60 /minWillsteven Davis MD Work Phone: [facility]02-20-2024 08:34-0500 Systolic blood mm[Hg]Epifanio Davis MD Work Phone: [facility]06-27-2023 14:15-0400 Body fukasb944.34 cmImad Asaad Other [employer] Other 06-27-2023 14:15-0400Body mass index (BMI) [Ratio] 23.71 kg/m2Imad Asaad Other [employer] Other 06-27-2023 14:15-0400Body vllrti52.11 kgImad Asaad Other [employer] Other 06-27-2023 14:15-0400Diastolic blood zfkgasng12 mm[Hg] Imad Asaad Other [employer] Other 06-27-2023 14:15-0400Systolic blood kipilyvx028 mm[Hg] Imad Asaad Other [employer] Other 02-21-2023 09:08-0500Body rdfgde265.34 cmJecolette Bello Work Phone: mp701-4472NP-Xswze [place] [employer] [address] DO Work Phone: 1(705) 523-991802-21-2023 09:08-0500Body mass index (BMI) [Ratio] 24.13 kg/k4LwxliyzNirav Bello Work Phone: mp835-9747HZ-Jgfei [place] [facility] DO Work Phone: 1(860) 555-207302-21-2023 09:08-0500Body surface area Derived from formula1.98 w4NxkomvuNirav Downingman Work Phone: 1(343) [phone]-Wkrib [place] [facility] [address] DO Work Phone: 1(171)190-543-077236-97 09:08-0500Body kuzwup65.47 kgNirav Downingman Work Phone: 1(508) [phone]-Aryxg [place] [facility] [address] DO Work Phone: 1(082)737-082-541188-20 09:08-0500Diastolic blood afbiplje65 mm[Hg] Nirav Bello Work Phone: 1(917) [phone]-Vgbzo [facility] [address] DO Work Phone: 1(003)674-084-836410-27 09:08-0500Heart rate68 /minNirav Bello Work Phone: 1(861) [phone]-Zgcev [facility] DO Work Phone: 1(578)899-773-636190-40 09:08-0500Systolic blood cojvlytb308 mm[Hg] Nirav Bello Work Phone: 1(130) [phone]-Pnkll [facility] DO Work Phone: 1(128) 385-700902-10-2022 15:20-0500Diastolic blood awcicrwf09 mm[Hg] Nirav Bello Work Phone: 1(951) [phone]-Bchai [facility] DO Work Phone: 1(439) 215-410802-10-2022 15:20-0500Heart rate65 /minNirav Bello Work Phone: 1(682) [phone]-Yeaau [facility] [address] DO Work Phone: 1(101) 111-641702-10-2022 15:20-0500Systolic blood ojbdaqlm974 mm[Hg] Nirav Bello Work Phone: 1(356) [phone]-Qrhfb [facility] DO Work Phone: 1(113) 182-576202-10-2022 15:17-0500Body .34 cmNirav Bello Work Phone: mp889-4782KD-Ywjfw [place] [facility] [facility] DO Work Phone: 1(591) 418-698702-10-2022 15:17-0500Body mass index (BMI) [Ratio] 24.97 kg/p9PccifjjNirav Bello Work Phone: 1(312) [phone]-Kgqnt [facility] DO Work Phone: 1(730) 634-281502-10-2022 15:17-0500Body surface area Derived from formula2.01 r4EbvvrajNirav Bello Work Phone: 1(303) [phone]-Vnfsc [facility] DO Work Phone: 1(537) 817-809102-10-2022 15:17-0500Body pudlqp36.19 kgNirav Bello Work Phone: mp506-1546YT-Dnuhq [facility] DO Work Phone: 1(279) 543-484002-10-2022 15:17-0500Diastolic blood dcitwgcp90 mm[Hg] Nirav Bello Work Phone: 1(382) [phone]-Bgzwb [facility] DO Work Phone: 1(937) 706-571202-10-2022 15:17-0500Systolic blood kiuczkoz446 mm[Hg] Nirav Bello Work Phone: 1(876) [phone]-Syrfd [facility] DO Work Phone: Encounters Encounter DateEncounter TypeCare ProviderFacilityStart: 03-30-2025 End: 36-70-1904Dpzheu outpatient visit 25 minutesCarjanki Boudreaux SHIPPING AND RECEIVING MATERIAL HANDLER Work Phone: [facility] CareComment on above:Acute bronchitis due to other specified organisms (Primary Dx); Cough, unspecified type; Pharyngitis, unspecified etiologyStart: 03-30-2025 End: 53-80-8102bhkxytfwaaBMZMCZ A KIEPERTNot AvailableStart: 03-14-2025 End: 07-15-7777Fyidwwwej Result EncounterGeneric External Data ProviderNOMS External Department UnsolicitedStart: 03-14-2025 End: 33-07-7595Oszbhxuxh Result EncounterGeneric External Data ProviderNOMS External Department UnsolicitedStart: 01-25-2025 End: 04-90-3834Utqubebem Result EncounterGeneric External Data ProviderNOMS External Department UnsolicitedStart: 01-25-2025 End: 09-27-9434Kdmmcwewd Result EncounterGeneric External Data ProviderNOMS External Department UnsolicitedStart: 01-17-2025 End: 45-81-7676Ozhpzv Bennett Garcia MD Work Phone: NOMS [facility] DermatologyStart: 01-17-2025 End: 50-80-3100Wugaep Bennett Garcia MD Work Phone: NO [place] DermatologyStart: 01-17-2025 End: 39-31-6164Massili encounter procedureCecilia Garcia MD Work Phone: NOMercy [facility] DermatologyComment on above: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Start: 01-17-2025 End: 54-60-3448gsrffycknfGNWEQACT WILSONSt. 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)Start: 01-09-2025 End: 43-88-1196cqviubxhjzLZRVBUNC Health Johnston Clayton AmbulatoryStart: 12-26-2024 End: 57-62-3093Eqnozx outpatient visit 10 Josue Angeles PEDIATRICIAN MANAGING PARTNER-POST HOLE DIGGING MACHINE OPERATOR Work Phone: uh [facility] HospitalComment on above:Primary hypertension Start: 12-26-2024 End: 39-98-0262gdvqluuyuoBGTVVNortheast [facility] AmbulatoryStart: 12-20-2024 End: 90-61-5751Mghuudw encounter procedureMiller Donald MD-Pet Scan Work Phone: Start: 12-20-2024 End: 69-50-9485fqtoxfwedfGogahbo Garman DO Work Phone: [facility] Work Phone: Start: 12-07-2024 End: 60-23-8027Arovab Clifton Hensley MD Work Phone: noms SWS DERMStart: 12-07-2024 End: 09-17-5007Qwlfrt flowsAlisa Hensley MD Work Phone: noms SWS DERMStart: 12-07-2024 End: 78-46-8705Ywupri outpatient visit 10 minutesEmkristyn Hensley MD Work Phone: noms SWS DERMComment on above:Actinic keratosis (Primary Dx); Spitting suture, initial encounterStart: 12-07-2024 End: 84-30-4960lazgsfszjlKCQKQ A PETITTINot AvailableStart: 12-03-2024 End: 30-85-3788Eimfyx outpatient visit 25 minutesRamayela Bear NP Work Phone: noms SWS UCComment on above:Acute cystitis with hematuria (Primary Dx); DysuriaStart: 12-03-2024 End: 51-67-1553kmvzmdodxxDDVQO PETITTINot AvailableStart: 11-27-2024 End: 56-26-9876Useusp flowsheetPaul S Biedenbach DO Work Phone: noms ENT SANDUSKYStart: 11-27-2024 End: 40-54-4039Oqrxih flowsheetPaul S Biedenbach DO Work Phone: noms ENT SANDUSKYStart: 11-27-2024 End: 65-09-7089Sygcrp follow up visit related to original pxPaul S Biedenbach DO Work Phone: noms ENT SANDUSKYComment on above:Squamous cell carcinoma of skin of face (Primary Dx); Chronic anticoagulationStart: 11-27-2024 End: 42-87-7318lvnttmmxkhHWNR S BIEDENBACHNot AvailableStart: 11-20-2024 End: 40-88-1524Lqzvsqtb Result EncounterJuan Guzman DO Work Phone: noms External Department UnsolicitedStart: 11-20-2024 End: 77-81-0829Tvewqise Result EncounterJuan Guzman DO Work Phone: noms External Department UnsolicitedStart: 11-20-2024 End: 61-88-0127Dvxrdtaam to same day surgery centerJuan Guzman DO-[facility] CampusStart: 11-20-2024 End: 38-65-9894iepcmnxsanKjfxnuq Garman DO Work Phone: [facility] Work Phone: Start: 41-49-9026wsgenuuqclPwsnexhf:BLANCO SmithevueStart: 11-14-2024 End: 93-32-9774Cgvtskb encounter procedureJuan Guzman AE-Rqh-Kmpqtgci Testing Work Phone: Start: 11-14-2024 End: 18-08-6892prioseukqbHtvhwrm GarmanFacility:[facility] Hospitaltart: 01-13-4837Rkhqfxudn for preprocedural cardiovascular examination Juan Syed [facility] Physician GroupStart: 11-14-2024 End: 84-26-3416Bsikzk outpatient visit 25 minutesNirav Bello DO Work Phone: [facility] IMComment on above:Stage 3a chronic kidney disease (CMS-HCC) (Primary Dx); Type 2 diabetes mellitus with other specified complication, without long-term current use of insulin (HCC); Primary hypertension ; PAF (paroxysmal atrial fibrillation) (HCC); Mixed hyperlipidemia ; Medicare annual wellness visit, subsequent; Advance care planningStart: 11-14-2024 End: 27-65-7368Arhalyy encounter procedureNirav Bello DO Work Phone: noVT HealthcareStart: 11-14-2024 End: 22-34-9923altdgociptAGEQMDO A GARMANNot AvailableStart: 11-13-2024 End: 75-71-0605Zmlhohyyl Result EncounterGeneric External Data ProviderNOMS External Department UnsolicitedStart: 11-13-2024 End: 69-29-8913Aiifjjrcc Result EncounterGeneric External Data ProviderNOMS External Department UnsolicitedStart: 11-09-2024 End: 26-59-0659Zsaqbz flowsheetPaul S Biedenbach DO Work Phone: noms ENT SANDUSKYStart: 11-09-2024 End: 57-99-4955Aboift flowsheetPaul S Biedenbach DO Work Phone: noms ENT SANDUSKYStart: 11-09-2024 End: 38-08-0217Ihcnjr outpatient visit 40 minutesPaul S Biedenbach DO Work Phone: noms ENT SANDUSKYComment on above:Chronic anticoagulation (Primary Dx); Squamous cell carcinoma of skin of faceStart: 11-09-2024 End: 98-94-7701twnlklxjjyQCBT S BIEDENBACHNot AvailableStart: 10-30-2024 End: 35-86-3414Dxzbpycee Result EncounterNirav Bello DO Work Phone: noms External Department UnsolicitedStart: 10-30-2024 End: 51-81-0453Hthmhoyxz Result EncounterNirav Bello DO Work Phone: noms External Department UnsolicitedStart: 10-26-2024 End: 17-94-5452Jjoykb flowsAlisa Hensley MD Work Phone: noms SWS DERMStart: 10-26-2024 End: 11-12-1221Ogftrylizandro Hensley MD Work Phone: noms SWS DERMStart: 10-26-2024 End: 22-63-0962Pnoimf outpatient visit 15 minutesLaura Hensley MD Work Phone: noms SWS DERMComment on above:Seborrheic keratosis (Primary Dx); Lentigines; Actinic keratosis; Neoplasm of unspecified behavior of bone, soft tissue, and skin; History of malignant neoplasm of skinStart: 10-26-2024 End: 82-66-6226wybvofumafXRXEI A PETITTINot AvailableStart: 10-02-2024 End: 78-26-7577Qvnadw outpatient visit 25 minutesMissy Khoury MD Work Phone: [facility] CenterComment on above:Paroxysmal atrial fibrillation (Multi); Primary hypertension; Stage 3a chronic kidney disease (Multi); 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 I through stage IV, or unspecified; Nonrheumatic mitral valve regurgitation; Mixed hyperlipidemia; Type 2 diabetes mellitus without complication, without long-term current use of insulin; Medication course changed; Body mass index (BMI) of 23.0 to 23.9 in adult; Former smokerStart: 10-02-2024 End: 46-32-2677ivxeuhrsqkJFHSHEMorgan Medical Center AmbulatoryStart: 09-13-2024 End: 19-66-1197Nwhigd flowsheetAamir Nance MD Work Phone: noms [facility] DERMStart: 09-13-2024 End: 62-75-6784Qsfrflcolton Nance MD Work Phone: noms [facility] DERMStart: 09-13-2024 End: 80-28-8830Pskmbi follow up visit related to original pxThhadley Nance MD Work Phone: noms [facility] DERMComment on above:Encounter for removal of suturesStart: 09-13-2024 End: 87-20-7646zddumljsfgOZAXOFMagen Garduno AvailableStart: 09-04-2024 End: 58-99-1639Hxbimi outpatient visit 40 minutesNirav Bello DO Work Phone: noms [facility] IMComment on above:PAF (paroxysmal atrial fibrillation) (CMS/HCC) (Primary Dx); Stage 3a chronic kidney disease (HCC) (CMS/HCC); Type 2 diabetes mellitus with other specified complication, without long-term current use of insulin; Mixed hyperlipidemia (CMS/HCC); Exocrine pancreatic insufficiency (CMS/HCC); Primary hypertension (CMS/HCC)Start: 09-04-2024 End: 75-85-5696fqksyqwdpqUNSAPMA A GARMANNot AvailableStart: 08-30-2024 End: 60-19-2368Tdpxynw encounter procedureEmkristyn Hensley MD Work Phone: noms SWS DERMComment on above:Squamous cell carcinoma of skin of left upper limb, including shoulder (Primary Dx)Start: 08-30-2024 End: 50-84-0341yhtsoflotlKCZYB A PETITTINot AvailableStart: 08-25-2024 End: 43-78-0148Jnydcfryu Result EncounterGeneric External Data ProviderNOMS External Department UnsolicitedStart: 08-25-2024 End: 06-93-2634Pfkqpyikz Result EncounterGeneric External Data ProviderNOMS External Department UnsolicitedStart: 08-09-2024 End: 94-15-7611Rtkgnuvow to same day surgery walnutNirav Bello DO Work Phone: [facility] HospitalStart: 08-09-2024 End: 20-29-9527cgalemjdwsSztrlsk Ace DO Work Phone: [facility] Work Phone: Start: 08-04-2024 End: 60-56-3540wtysdbnbmaTPFOEXS L DIDIONNot AvailableStart: 07-26-2024 End: 08-46-4697Movrlhl encounter procedureEmkristyn Hensley MD Work Phone: noms SWS DERMComment on above: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, including hip (Primary Dx)Start: 07-26-2024 End: 68-51-0520bruhmhhtpiKFMYC A PETITTINot AvailableStart: 07-26-2024 End: 05-98-1717Mnarfn flowsheetLaura Hensley MD Work Phone: noms SWS DERMStart: 07-26-2024 End: 40-03-8881Aeyjzo flowsheetLaura Hensley MD Work Phone: noms [facility] DERMStart: 07-14-2024 End: 81-43-6720Fytqgn Clifton Hensley MD Work Phone: noms SWS DERMStart: 07-14-2024 End: 78-86-9887Vqlvsd Clifton Hensley MD Work Phone: NOXT [facility] DERMStart: 07-14-2024 End: 32-29-6465Zsdfflk encounter procedureEmkristyn Hensley MD Work Phone: noms [facility] DERMComment on above:Neoplasm of unspecified behavior of bone, soft tissue, and skin (Primary Dx); Encounter for removal of suturesStart: 07-14-2024 End: 24-76-6482jxiihhzgmiZRRSB A PETITTINot AvailableStart: 07-06-2024 End: 64-44-8110Crxzdebqc Result EncounterGeneric External Data ProviderNOMS External Department UnsolicitedStart: 07-06-2024 End: 68-36-4044Iafxildru Result EncounterGeneric External Data ProviderNOMS External Department UnsolicitedStart: 06-30-2024 End: 33-09-7080Qfazza Clifton Hensley MD Work Phone: noms [facility] DERMStart: 06-30-2024 End: 29-93-3176Gcpiyx Clifton Hensley MD Work Phone: noms [facility] DERMStart: 06-30-2024 End: 85-26-7777Xlrihpe encounter procedureEmkristyn Hensley MD Work Phone: noms [facility] DERMComment on above:Basal cell carcinoma (BCC) of skin of left upper extremity including shoulder (Primary Dx); Skin neoplasmStart: 06-30-2024 End: 05-05-8247ckrjmozzngGIUNL A PETITTINot AvailableStart: 05-10-2024 End: 33-96-4141Yrtoxi Cherise Bello DO Work Phone: noms [facility] IMStart: 05-10-2024 End: 36-66-1936Xnuimx flowsKathy Bello DO Work Phone: noms [facility] IMStart: 05-10-2024 End: 78-33-1142Iahxkz outpatient visit 40 minutesNirav Bello DO Work Phone: noms [facility] IMComment on above:Allergic sinusitis (Primary Dx); Type 2 diabetes mellitus with other specified complication, without long-term current use of insulin (CMS/HCC); Primary hypertension (CMS/HCC); PAF (paroxysmal atrial fibrillation) (CMS/HCC); Exocrine pancreatic insufficiency (CMS/HCC); Stage 3a chronic kidney disease (HCC) (CMS/HCC); Mixed hyperlipidemia (CMS/HCC); Chest pain, unspecified typeStart: 05-10-2024 End: 79-55-5495hxyytvhzeeRSXXGNS A GARMANNot AvailableStart: 05-01-2024 End: 61-76-4272Vrhfbe outpatient visit 25 [address] Khoury MD Work Phone: [facility] CenterComment on above:Encounter to discuss test results (Primary Dx); Paroxysmal atrial fibrillation (Multi); Nonrheumatic mitral valve regurgitation; 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); Essential hypertension; Prostate cancer (Multi); PVC (premature ventricular contraction); Mixed hyperlipidemia; Type 2 diabetes mellitus without complication, without long-term current use of insulin (Multi); 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; Former smoker; Body mass index (BMI) of 23.0 to 23.9 in adultStart: 05-01-2024 End: 86-54-3988vxnjilymqsQIDRCPButler [facility] AmbulatoryStart: 04-27-2024 End: 58-23-1176Dtwbjhlizandro Henslye MD Work Phone: [facility] DERMStart: 04-27-2024 End: 44-05-8492Nfuandcolton Hensley MD Work Phone: [facility] DERMStart: 04-27-2024 End: 76-36-8114xivmtcmahuQOBNHEugenia Cleary AvailableStart: 04-03-2024 End: 57-45-0015Cfpomkdrh Result EncounterGeneric External Data ProviderNOMS External Department UnsolicitedStart: 04-03-2024 End: 93-01-4408Oxokyxrjk Result EncounterGeneric External Data ProviderNOMS External Department UnsolicitedStart: 03-13-2024 End: 91-08-3130Gjxabiehc Result EncounterGeneric External Data ProviderNOMS External Department UnsolicitedStart: 03-13-2024 End: 34-38-2066Oloaqefrm Result EncounterGeneric External Data ProviderNOMS External Department UnsolicitedStart: 02-21-2024 End: 27-78-7476Ymmgvpzlm Result EncounterGeneric External Data ProviderNOMS External Department UnsolicitedStart: 02-21-2024 End: 98-99-2823Aylkryixy Result EncounterGeneric External Data ProviderNOMS External Department UnsolicitedStart: 02-21-2024 End: 39-75-1157umyczxdcsvOBFSOCWilson Memorial Hospital Start: 02-21-2024 End: 81-02-5594Alrllzubmc hospital visit by Jerry Suarez Echo/Vasc Room [address] [place] [address] on above:PVC (premature ventricular contraction); Paroxysmal atrial fibrillation (Multi)Start: 02-07-2024 End: 92-73-3348Alnvoievj Result EncounterGeneric External Data ProviderNOMS External Department UnsolicitedStart: 02-07-2024 End: 09-10-1374Wszaqrjdh Result EncounterGeneric External Data ProviderNOMS External Department UnsolicitedStart: 02-07-2024 End: 99-14-9953Cdpkxrpaxg hospital visit by Jerry Farr [address] on above:PVC (premature ventricular contraction); 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; Ventricular arrhythmia; Abnormal electrocardiogram (ECG) (EKG)Start: 02-07-2024 End: 06-38-2050ftgqorldahWSJTAPWilson Memorial Hospital Start: 02-03-2024 End: 42-09-2017Tvqfjeyiw Result EncounterGeneric External Data ProviderNOMS External Department UnsolicitedStart: 02-03-2024 End: 84-87-1780Qczwnzbbf Result EncounterGeneric External Data ProviderNOVT External Department UnsolicitedStart: 01-13-2024 End: 27-25-1689Gndnog outpatient visit 25 minutesMissy Khoury MD Work Phone: [facility] on above:Ventricular arrhythmia (Primary Dx); PVC (premature ventricular contraction); Paroxysmal atrial fibrillation (Multi); 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; halfway current use of 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; High risk medication use; Mixed hyperlipidemia; Uncontrolled hypertension; Former smoker; Type 2 diabetes mellitus without complication, without long-term current use of insulin (Multi); Stage 3a chronic kidney disease (Multi); Prostate cancer (Multi); Abnormal electrocardiogram (ECG) (EKG)Start: 01-13-2024 End: 15-46-7987wouqtetksnGBKPHAMorgan Medical Center AmbulatoryStart: 01-11-2024 End: 41-24-2987Acqqyy outpatient visit 25 minutesNirav Bello DO Work Phone: [facility] on above:Primary hypertension (CMS/HCC) (Primary Dx); PAF (paroxysmal atrial fibrillation) (CMS/HCC); Stage 3a chronic kidney disease (HCC) (CMS/HCC); Type 2 diabetes mellitus with other specified complication, without long-term current use of insulin (CMS/HCC)Start: 11-11-2023 End: 58-28-9137Bogxsihln Result EncounterGeneric External Data ProviderINTERMOUNTAIN [facility]ALTH[facility]ARE External Department UnsolicitedStart: 11-11-2023 End: 45-92-2170Itfzwcxqc Result EncounterGeneric External Data ProviderINTERMOUNTAIN HEALTHCARE External Department UnsolicitedStart: 09-13-2023 End: 20-43-4399tmrvnegqboPJGenny Bello Work Phone: [facility] Work Phone: Start: 09-13-2023 End: 42-60-3543Kcatokz encounter procedureDO Nirav Bello Work Phone: [facility]-Pet Scan Work Phone: Start: 07-13-2023 End: 98-53-1620Wzsiuv outpatient visit 25 minutesEpifanio Davis MD Work Phone: [facility] on above:Benign essential hypertension (Primary Dx); Mixed hyperlipidemia; Paroxysmal atrial fibrillation (CMS/HCC); Former smokerStart: 11-26-2022 End: 23-25-7108gwakbdbkbqYB Nirav Bello Work Phone: [facility] Work Phone: Start: 11-26-2022 End: 09-63-8152Xukroar encounter procedureDO Nirav Bello Work Phone: [facility]-CT Scan [place] Work Phone: Start: 11-17-2022 End: 09-19-8031ukxibemghaXdje Asaad Other [place] [employer] Other Start: 33-45-3479Mxxwix outpatient new 45 minutesImad AsaadFPG GastroenterologyStart: 39-02-1488Kobwwgjmr encounterImad AsaadFPG GastroenterologyStart: 09-03-2022 End: 99-42-3385yrvjruxxmmDC NIRAV BELLOFacility:U7Dgmye: 44-56-5798Oydblp outpatient visit 25 minutesNirav Bello Work Phone: [phone]-DzgmnOrtonville Hospital 250 DO Work Phone: Start: 98-78-3551vftijntbuqAeCassidy Bello Facility:[id number]: 05-25-2022 End: 87-39-6367qxcnkdqxeuVU JEFFREY GARMANFacility:O6Nnlzb: 05-06-2022 End: 82-96-2116uwcqkwmengRM JEFFREY GARMANFacility:B5Vcmzo: 88-33-0426Yc [facility] Nirav Bello Work Phone: [phone]-SqpmeOrtonville Hospital 250 DO Work Phone: Start: 12-05-2021 End: 27-75-5519Bmnstut encounter procedureDO Nirav Bello Work Phone: [facility] Qwb-Grx-Ygnfcauj Testing Start: 11-20-2021 End: 11-52-3644yuwcbwqgmwUH DOCTOR MISCFacility:N0Lpdsg: 11-05-2021 End: 17-70-2091jzwmmbnisfAP NIRAV BELLOFacility:L4Coqtk: 98-93-5777Pescyt outpatient visit 25 minutesNirav Bello Work Phone: [phone]-WdbjpMadelia Community [facility] 250 DO Work Phone: Start: 21-06-7207Sv Lex Goldsmith MD Work Phone: mp-[facility] 250 DO Work Phone: Start: 07-12-2020 End: 11-83-8658Titkxrgjxz RecurringMelloata [facility]- Covid Vaccine Procedures DateProcedureProcedure DetailPerforming ClinicianStart: 60-58-0589Wdupl streptococcus group a amplified probe tqRobin Bajwa DO Work Phone: Start: 04-51-9193EGUOUQ COVID-19/FLURobin Bajwa DO Work Phone: Start: 52-33-9903ZFE CBC WITH AUTO DIFFGeneric External Data ProviderStart: 69-83-9855PNQ CBC WITH AUTO DIFFGeneric External Data ProviderStart: 06-11-2228UFRN SURGERYCecilia Garcia MD Work Phone: Start: 15-85-0094Xekdmbhf emission tomographyNirav Bello DO Work Phone: Start: 44-39-3181PWVPQWZ TRACT INFECTION (HTRX)Robin Bajwa DO Work Phone: Start: 78-93-2082Pfnwe dip stick/tablet rgnt non-auto w/o micrscpAnkaris Bajwa DO Work Phone: Start: 27-02-5687ONBWQMV POCT GLUCOMETERSPaul S Sonjaenbach DO Work Phone: start: 65-74-9091Dfbcohcu of lesion of cheekNirav Bello DO Work Phone: Start: 51-66-7720DYAXVWC POCT GLUCOMETERSPaul S Lorenzo DO Work Phone: start: 24-42-8978Dsbuuyhtyz glycosylated m0tQhnzsvwNirav Bello DO Work Phone: Start: 79-99-5132DGR CBC WITH AUTO DIFFGeneric External Data ProviderStart: 26-79-2633IJU CBC WITH AUTO DIFFMellocolette Vargas Ace DO Work Phone: Start: 82-63-0353GDPMOTBQRHO SKIN LESIONEmkristyn Hensley MD Work Phone: Start: 10-26-2024 End: 00-93-8681OYNP / NAIL BIOPSYEmkristyn Hensley MD Work Phone: Start: 67-52-7847YSSV EXCISIONEmkristyn Hensley MD Work Phone: Start: 29-90-2703LJPK REPAIRLaura Hensley MD Work Phone: Start: 44-89-9277PRS CBC WITH AUTO DIFFGeneric External Data ProviderStart: 50-91-8971Btgnd of skin to skinNirav Bello DO Work Phone: Start: 57-95-3589Ddngk excisionNirav Bello DO Work Phone: Start: 45-14-7150NETH EXCISIONLaura Hensley MD Work Phone: Start: 07-14-2024 End: 01-44-3561SZRM / NAIL BIOPSYLaura Hensley MD Work Phone: Start: 53-47-5857AGZ CMP (CMP) (FOR REMOTE [facility] USE) Generic External Data ProviderStart: 14-67-1359UNJL REPAIRLaura Hensley MD Work Phone: Start: 77-37-9620GLQZ EXCISIONLaura Hensley MD Work Phone: Start: 30-32-6589Palxawefph glycosylated f7lAmswfgsNirav Bello DO Work Phone: Start: 07-06-4151DMT CBC WITH AUTO DIFFGeneric External Data ProviderStart: 35-08-0280SVA CBC WITH AUTO DIFFGeneric External Data ProviderStart: 02-21-2024 End: 77-80-7631Dimf tthrc r-t 2d w/wom-mode compl spec&colr dGeeheber Khoury MD Work Phone: Start: 30-51-8862Nf strs tst xers&/or rx cont ecg trcg onlyGekeara Khoury MD Work Phone: Start: 19-33-2244SFDIYBM STRESS TEST EXERCISE (CARD) Generic External Data ProviderStart: 04-02-8439XID BASIC METABOLIC PANELGeneric External Data ProviderStart: 95-93-9315WV DEXA AXIAL SKELETONGeneric External Data ProviderStart: 18-35-2574Dhuljbky emission tomographyDO Nirav Bello Work Phone: Start: 51-50-2222Oom routine ecg w/least 12 lds w/i&r Epifanio Davis MD Work Phone: Start: 78-72-7353GovtaapbyipYjesheg Garman DO Work Phone: Start: 99-90-9886Cdeuckwu tomography of abdomen and pelvis with contrastDO Nirav Bello Work Phone: Start: 20-35-6871ZHA screeningDR DOCTOR MISCComment on above:Performed By: #### LIPID, TSH, CMP #### [facility] [address] [place], [place] [address] Dr. Leesa UrbinaStart: 70-74-9304NRG screeningDR DOCTOR MISCComment on above: Performed By: #### PSAD #### [facility] [address] [place] [address] [address] Leesa UrbinaAppendectomyNirav Bello Work Phone: Cataract surgeryNirav Bello Work Phone: ColonoscopyNirav Bello Work Phone: Comment on above:85Gce2457Fr Jovanny Riveradavid; Operation on lipNirav Bello Work Phone: ProstatectomyNirav Bello Work Phone: Plan of Treatment DateCare ActivityDetailAuthorStart: 93-45-2348Recwrelym for malignant neoplasm of colonNOVT HealthcareStart: 07-79-8246Irvkjopj screeningDiabetes: Retinopathy ScreeningNOVT HealthcareStart: 06-24-2026Medicare Annual Wellness (AWV)Medicare Annual Wellness (AWV)NOM HealthcareStart: 15-95-6589Vbgavofmp for osteoporosis Bone Density [facility] HospitalStart: 21-03-0081Lpmsc screening for proteinDiabetes: Urine Protein ScreeningINTERMOUNTAIN HEALTHCARE HealthcareStart: 07-12-2025 End: 36-80-5006Rlukucl encounter itkyorhal74/19/2026 10:00 AM EST Office Visit [facility] [address] [facility] [address] [place] [address] Missy Khoury MD [address] [facility] [address] [place] [address] [facility] CenterStart: 05-21-2025 End: 48-72-0558Yqylkrp encounter procedureNOVT SWS IMStart: 05-09-2025 End: 44-44-0507Ydudanj encounter /17/2025 8:30 AM EST Office Visit [facility] [address] [place] [address] Laura Hensley MD [address] [place] [address] [facility] DermatologyStart: 04-26-2025 End: 45-79-3111Talwjmf encounter procedureNOMS SWS DERMStart: 02-14-2025 Hemoglobin A1c measurementDiabetes: Hemoglobin V9MFWSG HealthcareStart: 02-67-5094TYLNZ-19 Vaccine ( season)COVID-19 Vaccine ( season)NOMS HealthcareStart: 97-20-4020Jsbzsipjt vaccinationInfluenza Vaccine (#1)NOM HealthcareStart: 01-17-2025 End: 27-66-5681Fsjqkel encounter procedureNOMS SWS DERMComment on above:Arrived Start: 01-09-2025 End: 20-79-5830Vjsgigc encounter rsvffvjix16/19/2025 8:00 AM EDT Office Visit [address] [place] [address] Seng Angeles, PEDIATRICIAN MANAGING PARTNER-POST HOLE DIGGING MACHINE OPERATOR [address] [facility] [place] [address] [facility] CenterStart: 12-14-2024 End: 09-89-7623Ntoneot encounter rwalxohub32/24/2025 10:30 AM EDT Office Visit [address] [place] [address] Missy Khoury MD [address] [facility] [address] [place] [address] [facility] CenterStart: 12-07-2024 End: 49-73-0382Ddkhnhu encounter procedureNOMS SWS DERMComment on above:Arrived Start: 11-27-2024 End: 01-94-5160Krfloii encounter procedureNOMS ENT SANDUSKYComment on above: ArrivedStart: 95-79-5146RstzmcbttSelect Medical TriHealth Rehabilitation Hospitaltart: 11-14-2024 End: 53-36-1142Jtvvbou encounter btdxgtyfw21/24/2025 9:30 AM EDT Office Visit [facility] [address] [place] [address] Nirav Bello DO [address] [place] [address] NOMS SWS IMStart: 11-09-2024 End: 97-12-0808Mjlktno encounter procedureNOMS SWS IMComment on above:Squamous cell carcinoma of skin of faceStart: 46-92-8909Fukhd screening for protein Diabetes: Urine Protein ScreeningNOVT HealthcareStart: 10-26-2024 End: 30-91-7066Btrdwer encounter procedureNOMS SWS DERMComment on above:Arrived Start: 10-02-2024 End: 14-15-0067Zphosuk encounter ytvamdrwh27/12/2025 11:45 AM EDT Office Visit [facility] [address] [facility] [address] [place] [address] Missy Khoury MD [address] [facility] [address] [place] [address] [facility] CenterStart: 95-96-7983GCEMF-19 Vaccine ( season)COVID-19 Vaccine ( season)[facility] Start: 09-13-2024 End: 49-61-1739Onachme encounter procedureNOMS SWS DERMComment on above:Arrived Start: 08-30-2024 End: 65-13-6686Nswdrub encounter ofuglskil16/09/2025 10:30 AM EDT Office Visit [facility] DERM [address] [place] [address] Laura Hensley MD [address] [place] [address] NOMS SWS DERMStart: 32-33-5043KunkqjptxSelect Medical TriHealth Rehabilitation Hospitaltart: 66-91-3916Vpulmggquy A1c measurementDiabetes: Hemoglobin H6OXYXJ HealthcareStart: 07-26-2024 End: 28-88-2690Hdrszms encounter lvsitxxlm03/05/2025 2:50 PM EST Office Visit [facility] [address] [place] [address] Laura Hensley MD [address] [place] [address] ArrivedNOMS SWS DERMComment on above:ArrivedStart: 07-18-2024 End: 97-05-5618Zogtmll encounter procedureN[facility] CenterStart: 07-14-2024 End: 16-68-2402Lzsiuti encounter procedureNOMS SWS DERMComment on above:Arrived Start: 06-30-2024 End: 11-22-0373Zixpzrz encounter procedureNOMS SWS DERMComment on above:Arrived Start: 05-22-2024 End: 39-48-7872Qczywxs encounter ywhjcvkee90/30/2024 8:30 AM EST Office Visit [facility] [address] [place] [address] Nirav Bello, DO [address] [place] [address] NOM[facility] SWS IMStart: 12-20-2024Medicare Annual Wellness (AWV) Medicare Annual Wellness (AWV)NOMS HealthcareStart: 05-10-2024 End: 26-79-3858Tnqqglw encounter jlbcdoszg82/18/2024 9:30 AM EST Office Visit [facility] [address] [place] [address] Nirav Bello, [address] [place] [address] Other thrombophilia (CMS/HCC)NOMS SWS IMComment on above: Other thrombophilia (CMS/HCC)Start: 05-01-2024 End: 36-29-1280Wndvbqx encounter vehwnkdhn53/09/2024 1:45 PM EST Office Visit [facility] [address] [facility] [address] [place] [address] Missy Khoury MD [address] [facility] [address] [place] [address] [facility] CenterStart: 04-27-2024 End: 98-75-9944Wyonhmu encounter procedureNOMS SWS DERMComment on above:Arrived Start: 02-28-2024 End: 40-56-3457Vzgbxha encounter bkjufaile92/07/2024 3:30 PM EDT Office Visit [address] [place] [address] Missy Khoury MD [address] [facility] [address] [place] [address] [facility] CenterStart: 02-21-2024 End: 41-36-4135Kjfhjii encounter kukkpiluz39/30/2024 7:45 AM EDT App[address]ment [address] [place] [address] WC Josh [facility]Start: 02-07-2024 End: 90-92-2559Kbmmnviwokby / ancillary services jkjkzjkbuk77/16/2024 11:00 AM EDT Ancillary Procedure [address] [address] QF FirelandsStart: 02-07-2024 End: 41-77-2473Dmyqquv encounter wqdkxroic41/16/2024 10:15 AM EDT Appointment [address] [address] [facility]Start: 02-07-2024 End: 52-65-0112Ylddahs encounter procedure Josh [facility] HospitalStart: 01-27-2024 End: 05-45-2637Cxrmq metabolic 2000 panel - Serum or PlasmaBasic Metabolic Panel Lab Routine Uncontrolled hypertension Expected: 01/27/2024 (Approximate), Expi res: 01/12/2025Un[facility] Work Phone: Comment on above:Expected: 01/27/2024 (Approximate), Expires: 01/12/2025Start: 72-41-7262NWEQS-19 Vaccine ()COVID- 19 Vaccine ()[facility] CenterStart: 32-99-9479Sebpgjdby vaccinationInfluenza Vaccine (#1)NOMS HealthcareStart: 01-13-2024 End: 28-69-7391Esmnki monitor studyHolter Or Event Incident Response Manager Cardiac Services Routine PVC (premature ventricular contraction) Paroxysmal atrial fibrillation (Multi) Expected: 01/13/2024 (Approximate), Expires: 01/12/2025 [facility] Work Phone: Comment on above:Expected: 01/13/2024 (Approximate), Expires: 01/12/2025Start: 01-13-2024 End: 85-17-3101HQ Heart Perfusion W stress and W radionuclide IVNuclear Stress Test Cardiac Nuclear Medicine Routine PVC (premature ventricular contraction) 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 Ventricular arrhythmia Abnormal electrocardiogram (ECG) (EKG) Expected: 01/13/2024 (Approximate), Expires: 01/12/2026UnMer[facility] Work Phone: Comment on above:Expected: 01/13/2024 (Approximate), Expires: 01/12/2026Start: 01-13-2024 End: 01-32-0282VZ Heart TransthoracicTransthoracic Echo Complete Echocardiography Routine PVC (premature ventricular contraction) Paroxysmal atrial fibrillation (Multi) Expected: 01/13/2024 (Approximate), Expires: 01/12/2026[facility] Service Area Work Phone: Comment on above:Expected: 01/13/2024 (Approximate), Expires: 01/12/2026Start: 94-89-4972Xjtmralt screeningDiabetes: Retinopathy ScreeningNOMS HealthcareStart: 24-51-3579JJQBE-19 Vaccine ( season) COVID-19 Vaccine ()[facility] CenterStart: 67-82-9471KOE, Provider: Epifanio Davis, Status: Pen, Time: 8:50 AMFUV, Provider: Epifanio Davis, Status: Pen, Time: 8:50 AMMP-[facility] [place] [address] DO Work Phone: Start: 66-72-5284Aknbaxwtpm A1c measurementDiabetes: Hemoglobin C4LAMAVUniversity of Missouri Children's HospitalStart: 42-81-8953YZR, Provider: Epifanio Davis, Status: Pen, Time: 9:10 AMFUV, Provider: Epifanio Davis, Status: Pen, Time: 9:10 AM-[facility]-[place] 250 DO Work Phone: Start: 89-07-7470GKZ, Provider: Epifanio Davis, Status: Pen, Time: 10:15 AMFUV, Provider: Epifanio Davis, Status: Pen, Time: 10:15 AM-[facility]-[place] [address] DO Work Phone: Start: 98-30-4979ARD High Risk: (Elderly (60+) or Population) (1 - 1-dose 75+ series)RSV High Risk: (Elderly (60+) or Population) (1 - 1-dose 75+ series)[facility] Start: 99-94-0152LIR patients and/or patients aged 60+ years (1 - 1- dose 60+ series)RSV patients and/or patients aged 60+ years (1 - 1-dose 60+ series)[facility]: 74-12-7753JCyG/Tdap/Td Vaccines (1 - Tdap)DTaP/Tdap/Td Vaccines (1 - Tdap)[facility]: 44-35-8435Muixu screening for proteinDiabetes: Urine Protein ScreeningUnMercy Health – [facility] Hospital: 05-60-8256Kkavotfz foot examinationDiabetes: Foot ExamUnMercy Health – The Jewish Hospital: 1950 Glaucoma screeningDiabetes: Retinopathy ScreeningUnMercy Health – The Jewish Hospital: 71-69-4370Hwhpkk wellness visitWelcome to Medicare Visit [facility]: 89-30-3649Bkslweacor A1c measurement Diabetes: Hemoglobin G6PUftwubafxbMercy Health – The Jewish Hospital: 48-08-1560Crywu panelLipid PanelUnMercy Health – The Jewish Hospital: 01-21-1939Medicare Annual Wellness (AWV)Medicare Annual Wellness (AWV)[facility] HealthcareStart: 01-21-1939Medicare Annual Wellness VisitMedicare Annual Wellness Visit (AWV) [facility] CenterStart: 16-47-5622Iwqhcwzxy for malignant neoplasm of colonINTERMOUNTAIN HEALTHCARE HealthcareStart: 59-16-9283Fvkyj screening for protein Diabetes: Urine Protein ScreeningUnMercy Health St[facility] Dermatopathology examDermatopathology exam Pathology and Cytology Timed Basal cell carcinoma (BCC) of skin of left upperextremity including shoulder Release Upon Ordering for 1 Occurrences starting 06/30/2024[facility] Healthcare Work Phone: comment on above:Release Upon Ordering for 1 Occurrences starting 06/30/2024Dermatopathology examDermatopathology exam Pathology and Cytology Timed Neoplasm of unspecified behavior of bone, soft ti ssue, and skin Release Upon Ordering for 1 Occurrences starting 07/14/2024[facility] Healthcare Work Phone: comment on above:Release Upon Ordering for 1 Occurrences starting 07/14/2024Dermatopathology examDermatopathology exam Pathology and Cytology Timed 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, including hip Release Upon Ordering for 1 Occurrences starting 07/26/2024[facility] Healthcare Work Phone: comment on above:Release Upon Ordering for 1 Occurrences starting 07/26/2024Dermatopathology examDermatopathology exam Pathology and Cytology Timed Squamous cell carcinoma of skin of left upper limb, including shoulder Release Upon Ordering for 1 Occurrences starting 08/30/2024 [facility] Healthcare Work Phone: comment on above:Release Upon Ordering for 1 Occurrences starting 08/30/2024Dermatopathology examDermatopathology exam Pathology and Cytology Timed Neoplasm of unspecified behavior of bone, soft ti ssue, and skin Release Upon Ordering for 1 Occurrences starting 10/26/2024[facility] Healthcare Work Phone: comment on above:Release Upon Ordering for 1 Occurrences starting 10/26/2024HIV 1+2 Ab+HIV1 p24 Ag [Presence] in Serum or Plasma by [facility] HospitalPatient EducationKnow your MedWayne HealthCare [facility] Work Phone: [facility] referralWex[facility] Work Phone: Immunizations Immunization DateImmunizationNotesCare IeffnsxzFxnduwcy67-57-4239JKKQW-35 (PFIZER) 12Y and olderNirav Bello DO Work Phone: [facility]11-02-2024Seasonal trivalent influenza vaccine, adjuvanted, preservative Silvia Khoury MD Work Phone: [facility] Work Phone: [phone]i virus vaccine, unspecified formulationLaura Hensley MD Work Phone: [facility] HospitalSbnztxyzgt31-80-7543ZPJZA-40 (MODERNA) 12Y and olderNirav Bello DO Work Phone: [facility]10-28-2023Influenza, Seasonal, Quadrivalent, AdjuvantedNirav Bello DO Work Phone: [facility] HospitalYfiubmhcxh55-14-2980qgpqnuiwv virus vaccine, unspecified formulationNirav Bello DO Work Phone: [facility] HospitalNytyftzlrm61-37-4358Tffnqfq COVID-19 Bival Booster 50 MCG/0.5ML Intramuscular SuspensionJecolette Bello Work Phone: [facility]10-18-2022Fluad Quadrivalent 0.5 ML Intramuscular Prefilled SyringeJecolette Bello Work Phone: [phone]-AsptgOrtonville Hospital 250 DO Work Phone: [phone] COVID-19 Vaccine 100 MCG/0.5ML Intramuscular SuspensionNirav Bello Work Phone: [facility]10-28-2021Moderna COVID-19 Vaccine 100 MCG/0.5ML Intramuscular SuspensionNirav Bello Work Phone: [phone] [place], [place] [address]10-27-2021Moderna SARS-CoV-2 Booster VaccinationNirav Downingman DO Work Phone: [facility] HospitalXdmrvvbwip04-46-2264zzjsmdgwr, high dose seasonal, preservative-freeMelloffrey A Ace Work Phone: [facility] HospitalTrbfasvskk59-48-8001Yqfmekd High-Dose Quadrivalent 0.7 ML Intramuscular Suspension Prefilled SyringeNirav Bello Work Phone: [phone]-LjrfzOrtonville Hospital 250 DO Work Phone: [phone]-26 mRNA-1273 (Moderna)[facility]01-23-2021COVID-19 mRNA-1273 (Moderna)[facility]10-23-2020Fluad Quadrivalent 0.5 ML Intramuscular Prefilled SyringeJecolette Alicia Ace Work Phone: [facility] HospitalHatisxumjg88-29-4333brrtaqjmc, high dose seasonal, preservative-freeJeffrey A Ace Work Phone: [phone]-TkvcqOrtonville Hospital 250 DO Work Phone: [phone]euy vaccine recombinantNirav Bello Work Phone: [phone]-HrqhnOrtonville Hospital 250 DO Work Phone: [phone]m, high dose seasonal, preservative-freeJeffrey A Ace Work Phone: [phone]-EpsmmOrtonville Hospital 250 DO Work Phone: [phone], high dose seasonal, preservative-freeJeffrey A Ace Work Phone: [phone]-XzsfwOrtonville Hospital 250 DO Work Phone: [phone] vaccine recombinantNirav A Ace Work Phone: [phone]-QqharAmanda Ville [address] DO Work Phone: [phone], high dose seasonal, preservative-freeMelloffrey A Ace Work Phone: [phone]-BxxvoSuzanne Ville [address] DO Work Phone: 1(379) [phone], high dose seasonal, preservative-freeMelloffrey A Ace Work Phone: [phone]-YhgxwSuzanne Ville [address] DO Work Phone: 1(140) [phone] conjugate vaccine, 13 valent Nirav Downingman Work Phone: [facility]11-07-2016influenza, high dose seasonal, preservative-freeMelloffrey Ace DO Work Phone: [facility] HospitalKpovdmjjiu12-01-7831dvhbjhio influenza, intradermal, preservative freeMelloffrey Ace DO Work Phone: [facility] HospitalJpggjocvgl99-37-7606rjjoxbmpx, high dose seasonal, preservative-freeMelloffrey A Ace Work Phone: [phone]-KpuqhSuzanne Ville [address] DO Work Phone: [phone]) [phone]seii conjugate vaccine, 13 valent Nirav Bello DO Work Phone: [facility] HospitalCozgpmmnkc10-44-9245zdhcis vaccine, liveMelloffata Bello DO Work Phone: [facility] HospitalLabmhwkglr14-54-7605glfosjnkzics polysaccharide vaccine, 23 valentJeffrey A Ace Work Phone: [facility]01-08-2010novel cjbbmjelc-F4A7-68, preservative-free, injectableJeffata A Ace Work Phone: [phone]-AbkahSuzanne Ville [address] DO Work Phone: 1(108) [phone]vfijzwmo polysaccharide vaccine, 23 valentJeffrey Ace DO Work Phone: [facility] Payers DatePayer CategoryPayerPolicy [id number]-ohd [id number] 2024Medicare (Managed Care)[employer]ET[employer]OLDEN MEDICARE [id number] 2023MedicaidAETNA MEDICARE ADVANTAGE [id number] 2023Medicare [id number] Health Insurance [id number] 2.1.121719.3.57[id number] 2.1.027879.3.579.2.33382-70-2577Qejsxoj1909950 2.16.840.1.068517.3.579.[id number] 2.16.840.1.742174.3.579.2.11774-36-8392Gsgwjlz1947072 2.16840.1.253271.3.579.2.18966-16-0361Fosxsdt1641612 2.16840.1.601274.3.579.2.86618-02-3255Vaswgmo26922631 2.16840.1.757745.3.579.2.215674-31-4858Raxyicv83189034 2.840.1.669507.3.579.2.066364-80-8469Tttrtyk79577252 2.840.1.644532.3.579.2.658474-37-0971Wwkxjxw95651096 2.840.1.216677.3.579.2.595660-93-3736Ogzcqkh54349708 2.840.1.228028.3.579.2.981055-03-2674Ubkolgc57734330 2.840.1.862610.3.579.2.022810-10-9377Jvtuskl23722495 2.840.1.535206.3.579.2.77841-45-2736Arbtptp290629402 2.16840.1.185662.3.579.2.499702-87-0424Vbgelnf328483917 2.840.1.966692.3.579.2.793755-48-4511Oxngzlb693537558 2.16840.1.912692.3.579.2.857136-90-5085Lrlhwvz184636751 2.840.1.599966.3.579.2.758766-61-7312Qskmeqj70036387 2.16.840.1.268991.3.579.2.530022-44-9405Yazuzjq22657091 2.16.840.1.092339.3.579.2.303999-46-5282Mwpwuhr11118979 2.16.840.1.835304.3.579.2.623433-52-6070Huooici07006483 2.16.840.1.431786.3.579.2.220592-61-5661Bgzoufc69167216 2.16840.1.218262.3.579.2.757118-14-2359Boyzaud01691510 2.16840.1.322881.3.579.2.031856-83-9393Bqugsey53752935 2.16840.1.608189.3.579.2.344565-73-9913Ofujjaz58422728 2.16840.1.402437.3.579.2.782391-52-9069Kcxwrfs89532087 2.16840.1.601517.3.579.2.807198-12-3740Zzgprup12725455 2.16840.1.846926.3.579.2.931756-07-7239Iadimvz0999730 2.16840.1.936503.3.579.2.036440-41-7062Adamglc3125129 2.16840.1.040513.3.579.2.182292-44-7673Qmtouuv0863344 2.16840.1.346474.3.579.2.166222-80-9030Pukjgsy5666062 2.16840.1.833145.3.579.2.356851-14-5771Wjbwbyn5223527 2..0.1.056643.3.579.2.050637-80-0727Pmvwbou5870269 2..0.1.051058.3.579.2.973641-87-4321Wlhxgxb1255411 2..0.1.045611.3.579.2.166596-71-5880Tvxnafp7047982 2..0.1.568279.3.579.2.613098-14-4348Hpleuvv7410995 2..0.1.449465.3.57[id number] Health InsuranceSelf [id number]-[id number]-[id number] 2.840.1.784336.3.579.2.946Bmtefbg74681350 2.0.1.858052.3.579.2.531 Izsktdc37337810 2.0.1.176496.3.579.2.530Tiqhipc92294660 2.0.1.999563.3.579.2.531 Social History DateTypeDetailFacilityTobacco smoking status NHISUnknown if ever smokedWexner Medical Center CtrStart: 17-47-1280Frw Assigned At BirthSycamore Medical Centertart: 07-13-2023 End: 32-82-8846Cpsws a smokerNever a smoker-[facility] [address] DO Work Phone: Comment on above:2-3 drinks a month;Start: 12-05-2021 End: 93-09-3534Jobycts smoking status NHISEx-smoker (finding)[facility] Hospitaltart: 07-13-2023 End: 61-03-4641Vxw Assigned At [facility] [employer] Other Start: 06-12-1958 End: 88-99-9887Nlunowy of tobacco useCurrent smokerUnMercy Health St. [facility] Work Phone: Start: 06-12-1958 End: 92-70-3658Juyqwmy of tobacco useCigarette SmokerUnMercy Health St. [facility] Work Phone: Start: 07-13-2023 End: 80-30-7137Ploylli use and exposureSmokeless tobacco non-userUnMercy Health St. [facility] Work Phone: Start: 07-13-2023 End: 30-21-0203Digaant intakeLifetime non-drinker (finding)[facility] Work Phone: Start: 46-85-5766Tho Assigned At BirthNot on file [facility] Work Phone: Start: 07-03-2023 End: 40-06-7879Wspjmxfd to SARS-CoV-2 (event)Not sureUniversity Hospitals Conneaut Medical CenterHistory of tobacco usePipe SmokerNOMS HealthcareHistory of tobacco use Passive smokerNOMS HealthcareStart: 01-11-2024 End: 34-69-3093Higmzdwes beverage intakeCurrent drinker of alcohol (finding)[facility] HealthcareHow often to you have a drink containing alcohol?2-4 times a month NOM[facility] HealthcareHow many standard drinks containing alcohol do you have on a typical day?1 or 2NOMS HealthcareHow often do you have 6 or more drinks on 1 occasion?NeverNOMS HealthcareStart: 22-13-9386Frvopuq Commenton occasionNOMS HealthcareStart: 92-96-4623ZfvJork (finding)[facility] Start: 04-17-2022 End: 57-10-4429HwuGwavGpkarobeay [facility]als [facility] Goals DatePatient GoalDesired Activity/State Functional Status VympZvtahfzekvWlaklsTyexiusd40-70-4793Mnwpmjm Health Questionnaire 2 item (PHQ- 2) [Reported][facility] Bthorjaawd16-46-3074Tuskyc interest or pleasure in doing thingsNot at all 11/13/2024 1:19 PM EDT Mychart, Generic Not at [facility] HospitalYhndpxgvzn01-28-3770Fohorua down, depressed, or hopelessNot at all 11/13/2024 1:19 PM EDT Mychart, Generic Not at [facility] HospitalZidtioglba56-13-9932Zakzv score [AUDIT-C]2 01/11/2024 9:55 AM EDT Fartun Eduardo MANOMS [facility] Clinical Notes 07-14-2022 to 03-30-2025 Note Date & QdbxJaaeRnqbqzmn24-15-8552 History of Present illness Narrative* Allison Boudreaux NP - 03/30/2025 1:35 PM EST Images from the original note were not included. [address] [place], [address] [facility], [address] P: [phone] F: [phone] HPI Historian of HPI: patient Epifanio Alvarez is a 84 y.o. male who presents today to the Urgent Care with the following complaints and denials which have been present for 2 day(s) C/O Denies Symptom Comments [x] [] Runny Nose [] [x] Difficulty Swallowing [x] [] Sore Throat From cough [x] [] Cough [x] [] Ear Pain Bilateral [] [x] Fever [] [x] Chills [x] [] Nasal Congestion [x] [] Myalgia Fatigue [x] [] Sinus Pain H/A [x] [] Sinus Pressure Additional Comments: pt has not taken any OTC medications Pt is present with URI symptoms. Pt feels some chest tightness, H/A coughing spells. Pt denies any N/V/D. Pt does feel fatigue. Pt mentions not bringing up much phlegm. Pt does not want any other symptoms going to his lungs. Pt is agreeable to covid and flu, and strep ROS A complete system ROS was performed and negative aside from the pertinent positives noted in the HPI and PE. PHYSICAL EXAM Gen: well nourished, no acute distress, interactive Head: normocephalic, atraumatic HEENT: TMs pearly varma, tongue midline, mucous membranes moist Lungs: CTAB, respiratory effort normal, harsh cough Heart: RRR without murmur, rub, gallop Abdomen: BS x 4, soft, no palpable mass, no tenderness Extremities: warm to touch, capillary refill x 3 seconds Neuro: alert, oriented, moving all extremities Psych: cooperative, appropriately interactive TREATMENT PLAN 1. Cough, unspecified type Results negative - STATUS COVID-19/FLU 2. Pharyngitis, unspecified etiology Results negative - STREP DNA PROBE 3. Acute bronchitis due to other specified organisms (Primary) Diagnosis and medication discussed. It is important to take your medications as directed. Good handwashing, push fluids, humidifier at bedside Discussed signs and symptoms that require immediate evaluation in the ER It is important to follow up with your pcp within 3-5 days for evaluation of current treatment plan. Please schedule that appointment as soon as possible. You may use OTC pain relievers/fever reducers as instructed Mucinex as directed - azithromycin (Zithromax Z-Herb) 250 MG tablet; Take 2 tablets (500 mg) on Day 1, followed by 1 tablet (250 mg) once daily on Days 2 through 5. Dispense: 6 tablet; Refill: 0 documented in this encounterUniversity of Missouri Children's HospitalZymswcpzvl16-84-8518 History of Present illness Narrative* Cecilia Garcia [...] biopsy site Mohs surgery Consent obtained: written [place] Protocol: Procedure explained and questions answered to [...] fashion Prep type: chlorhexidine Biopsy accession number: [id number] Biopsy lab: [place] skin pathology Date of biopsy: 10/26/2024 Frozen [...] Next visit: as scheduled documented in this encounterUniversity of Missouri Children's HospitalGbltgepegn84-85-0951 History of Present illness Narrative* Seng Angeles, PEDIATRICIAN MANAGING PARTNER-POST HOLE DIGGING MACHINE OPERATOR - 01/09/2025 8:00 AM EDT Subjective: Epifanio [...] B-12) 1,000 mcg tablet 1 tablet, Daily otxurk-pdfwbleo-jgshjtk (Creon) 24,000-76,000 -120,000 unit capsule 1 capsule, [...] 6 month follow up Seng Angeles MSN, DAPHNEY, PMHNP-[facility] [place], [place] Please excuse any errors in grammar or translation related to this dictation. Voice recognition software was utilized to prepare this document. documented in this encounterUniversity Hospitals [facility]aut [facility] Center Work Phone: 1(186) 612-857908-19-2025 Instructions* Patient Instructions* DAPHNEY Charles - 01/09/2025 [...] Khoury in 6 months documented in this [facility] Work Phone: 1(910) 838-464608-05-2025 History of Present illness Narrative* Seng Angeles, PEDIATRICIAN MANAGING PARTNER-POST HOLE DIGGING MACHINE OPERATOR - 12/26/2024 4:00 PM EDT Subjective: Epifanio [...] B-12) 1,000 mcg tablet 1 tablet, Daily rvzbqx-pkyakkqr-cabgwxq (Creon) 24,000-76,000 -120,000 unit capsule 1 capsule, [...] contact the office if new symptoms arise. 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 Voice recognition software was utilized to prepare this document. documented in this [facility] Work Phone: 1(833) 478-693708-05-2025 Instructions* Patient Instructions* DAPHNEY Charles - 12/26/2024 [...] contact the office if new symptoms arise. 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 12/20/2024 2:08 PM Dictation Location: [facility]--24 Transcribed By: WOODY 12/20/24 140 Dictated By: Jordan Story II, MD 12/20/24 1401 Signed By: 12/20/24 140 [facility] Work Phone: 1(515) 199-420807-17-2025 History of Present illness Narrative* Laura Hensley [...] Next Visit: as scheduled documented in this encounterUniversity of Missouri Children's HospitalFlyuvcznma29-56-5709 History of Present illness Narrative* Jaqui Bear NP - 12/03/2024 9:30 AM EDT Images from the original note were not included. [address] [place], [address] [facility], [address] P: [phone] F: [phone] HPI Historian of HPI: patient Epifanio Alvarez [...] 14 tablet; Refill: 0 documented in this encounterUniversity of Missouri Children's HospitalZvtnofpjfw46-44-5189 History of Present illness Narrative* Juan Guzman, DO - 11/27/2024 10:15 AM EDT Subjective [...] prevent discoloration Chronic anticoagulation documented in this encounterUniversity of Missouri Children's HospitalRtrkkcsncd13-52-4638 Evaluation note* Diagnosis Stage 3a chronic kidney disease (CMS-HCC)- Primary Type 2 diabetes mellitus with other specified complication, without long-term current use of insulin (HCC) Primary hypertension Unspecified essential hypertension PAF (paroxysmal atrial fibrillation) (HCC) Atrial fibrillation Mixed hyperlipidemia Mixed hyperlipidemia Medicare annual wellness visit, subsequent Advance care planning Other specified counseling documented in this encounter [facility] HospitalItpnzlovbi06-48-3362 History of Present illness Narrative* Juan Guzman [...] History of appendectomy Hyperlipidemia Irritable bowel syndrome halfway current use of 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 01/13/2024 Malignant [...] BEDTIME, Disp: 90 tablet, Rfl: 3 pancrelipase, Mgi-Wiia-Galj, (Creon) 84374-27013 units capsule, TAKE 1 CAPSULE IN THE [...] 10/01/2017 CATARACT EXTRACTION Right 10/28/2017 per in [place], [place]. COLONOSCOPY 2010 COLONOSCOPY 11/28/[address] [...] and wishes to proceed. documented in this encounterUniversity of Missouri Children's HospitalSayyuyoekn02-91-4218 History of Present illness Narrative* Laura Hensley [...] limited to risks of scarring, darker or lead cashier pigmentary changes, recurrence, incomplete removal and infection. [...] results/6 month skin check documented in this encounterUniversity of Missouri Children's HospitalUckaztccxh02-09-0796 History of Present illness Narrative* Missy Khoury [...] Mixed hyperlipidemia 7. Paroxysmal atrial fibrillation 8. Mlh-yrwgayr-aqdmbvgih diabetes 9. LFZ8QW7-ZKGj score of 4. 10. Long-term anticoagulation with rivaroxaban 11. EKG June 2023-[place] formed PVCs in a pattern of ventricular [...] B-12) 1,000 mcg tablet 1 tablet, Daily gzjgor-fzfzhetn-fhrbtrk (Creon) 24,000-76,000 -120,000 unit capsule 1 capsule, [...] presence of Dr. Missy Khoury MD, FACC. Dr. Missy Edwards MD, FACC, personally performed the services described in the documentation as scribed by April Cheng LPN in my presence, and confirm it is both accurate and complete. documented in this encounterUniversity Hospitals [facility]aut Medical Center Work Phone: 1(147) 426-608205-12-2025 Instructions* Patient Instructions* April Love LPN - [...] your visit. BMI normal documented in this encounterUniversity Hospitals Conneaut Medical Center Work Phone: 1(908) 452-972204-23-2025 History of Present illness Narrative* Aamir Nance [...] Has skin check scheduled documented in this encounterUniversity of Missouri Children's HospitalHxhtquuaxj47-57-6655 Evaluation note* Diagnosis PAF (paroxysmal atrial fibrillation) (CMS/HCC)- Primary Atrial fibrillation Stage 3a chronic kidney disease (HCC) (CMS/HCC) Type 2 diabetes mellitus with other specified complication, without long-term current use of insulin Mixed hyperlipidemia (CMS/HCC) Mixed hyperlipidemia Exocrine pancreatic insufficiency (CMS/HCC) Other specified disease of pancreas Primary hypertension (CMS/HCC) Unspecified essential hypertension documented in this encounter [facility] HospitalUaxnpdzvqw26-39-7204 History of Present illness Narrative* Laura Hensley [...] left upper limb, including shoulder Left Shoulder [place] macule at biopsy site Skin excision Lesion [...] 1.2 x 1.1 cm Previous accession number: [id number] Follow up: 14 days for s/r documented in this encounterUniversity of Missouri Children's HospitalQfsndsqspc15-76-2029 History of Present illness Narrative* Laura Hensley [...] SCC Check Margins: yes Previous accession number: [id number] Shave excision completed today, see procedure note. Return to clinic prior to next scheduled visit for any signs or symptoms of recurrence, reviewed the signs and symptoms. Patient will be notified of results. Next Visit: as scheduled documented in this encounterUniversity of Missouri Children's HospitalIoqpefjfky69-91-4929 History of Present illness Narrative* Laura Hensley [...] Visit: pending biopsy results documented in this encounterUniversity of Missouri Children's HospitalSxkqurhjol89-50-5556 History of Present illness Narrative* Laura Hensley [...] upper extremity including shoulder Left Upper Arm [place] macule at biopsy site. Skin excision Lesion [...] BCC Check Margins: Yes Previous accession number: [id number] 2. Skin neoplasm (2) Left shoulder Erythematous, crusted papule. Right lower leg Erythematous, crusted papule. Biopsies deferred until suture removal due to insurance restrictions. Follow up: 14 days for s/r documented in this encounterUniversity of Missouri Children's HospitalCndxzznfaj88-37-1016 History of Present illness Narrative* Nirav Bello, DO - 05/10/2024 9:30 AM EST Images from the original note were not included. Epifanio Alvarez is a 83 y.o. male presents with chief complaint of Hospital Follow-up (Pt presents hospital follow up at [facility] on 05/03 for hypertension. Pt states he [...] 10/01/2017 CATARACT EXTRACTION Right 10/28/2017 per in [place], [place]. COLONOSCOPY 2010 COLONOSCOPY 11/28/[address] [...] cloNIDine (CATAPRES) 0.1 mg, As needed Creon 68520-14212 units capsule TAKE 1 CAPSULE IN THE [...] List Items Addressed This Visit HTN (hypertension) ([facility]) Hyperlipidemia, unspecified ([facility]) Stage 3a chronic kidney disease (HCC) ([facility]) Type 2 diabetes mellitus with other specified complication ([facility]) Relevant Orders POCT glycosylated hemoglobin (Hb A1C) docked device PAF (paroxysmal atrial fibrillation) ([facility]) Exocrine pancreatic insufficiency ([facility]) Other Visit Diagnoses Allergic sinusitis - Primary [...] we did have an appointment with the imaging aide at [facility], blood pressure was stable at that [...] I told him if he continues with [place] pressure in the next two or three [...] Dictated and not read. documented in this encounterUniversity of Missouri Children's HospitalAooqtglvxo35-41-1734 History of Present illness Narrative* Missy Khoury [...] Mixed hyperlipidemia 7. Paroxysmal atrial fibrillation 8. Kbz-lxzhpkb-wttlvvugf diabetes 9. HXF0OF2-CYGj score of 4. 10. Long-term anticoagulation with rivaroxaban 11. 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 Former [...] are normal. Patient is doing well clinically. Rajiv continue to observe. Follow up : 6 months Provider Attestation - Britney Valerio LPN Scribe documentation All medical record entries made by the Scribe were at my direction and personally dictated by me. Kamala reviewed the chart and agree that the record accurately reflects my personal performance of the history, physical exam, discussion and plan. documented in this encounterUniversity Hospitals Conneaut Medical Center Work Phone: 1([phone]) 458-839712-09-2024 Instructions* Patient Instructions* Britney Salgado LPN - [...] time of your visit. documented in this encounterUniversity Hospitals Conneaut Medical Center Work Phone: 1(386) 384-912708-22-2024 History of Present illness Narrative* Missy Khoury [...] Mixed hyperlipidemia 7. Paroxysmal atrial fibrillation 8. Bmr-gxiwixm-kmxjiurhn diabetes 9. WFA5KM8-KOKi score of 4. 10. Long-term anticoagulation with rivaroxaban 11. EKG June 2023-[place] formed PVCs in a pattern of ventricular [...] 1,000 mcg tablet 1 tablet, oral, Daily nanmns-xhmbnaua-efwossr (Creon) 24,000-76,000 -120,000 unit capsule 1 capsule, [...] Date Noted PVC (premature ventricular contraction) 01/13/2024 halfway current use of 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 01/13/2024 High [...] contraction) Transthoracic Echo Complete Holter Or Event Incident Response Manager Nuclear Stress Test CANCELED: Nuclear Stress Test 3. Paroxysmal atrial fibrillation (Multi) Follow Up In Cardiology magnesium oxide (Mag-Ox) 400 mg (241.3 mg magnesium) tablet Transthoracic Echo Complete metoprolol succinate XL (Toprol-XL) 50 mg 24 hr tablet Holter Or Event Incident Response Manager CANCELED: Nuclear Stress Test 4. 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 High [...] exam, discussion and plan. documented in this encounterUniversity Hospitals Conneaut Medical Center Work Phone: 1(955) 112-757708-22-2024 Instructions* Patient Instructions* Fay Edge CMA - [...] time of your visit. documented in this encounterUniversity Hospitals Conneaut Medical Center Work Phone: 1(189) 146-620602-20-2024 History of Present illness Narrative* Epifanio Davis [...] by mouth once daily., Disp: , Rfl: hkpiti-jwabzyax-xphdlzs (Creon) 24,000-76,000 -120,000 unit capsule, Take 1 [...] exam, discussion and plan. documented in this encounterUniversity Hospitals Conneaut Medical Center Work Phone: 1(450) 566-822402-20-2024 Instructions* Patient Instructions* Dominick Suazo MA - [...] time of your visit. documented in this encounterUniversity Hospitals Conneaut Medical Center Work Phone: 1(334) 212-187106-27-2023 Evaluation note* Encounter Date Diagnosis Assessment Notes Treatment Notes Treatment Clinical Notes Oct, Change in bowel habits (ICD-10 - R19.4) Oct,iverticulosis (ICD-10 - K57.90) Oct,IBS (irritable bowel syndrome) (ICD-10 - K58.9) Oct,ancreatic insufficiency (ICD-10 - K86.89) [facility] [employer] Other 02-21-2023 History of Present illness Narrative* [...] necessary and we suggest follow-up next year [facility] [address] DO Work Phone: Evaluation noteNo assessment information available [facility] Work Phone: Evaluation noteNo InformationNortEncompass Health [employer] Other Evaluation note* Diagnosis Benign essential hypertension- Primary Essential hypertension, benign Mixed hyperlipidemia Paroxysmal atrial fibrillation (CMS/HCC) Atrial fibrillation Former smoker Personal history of tobacco use, presenting hazards to health documented in this encounter [facility] Work Phone: Evaluation note* Diagnosis [...] without long-term current use of insulin (Multi) halfway current use of 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 Former smoker Personal history of tobacco use, presenting hazards to health Body mass index (BMI) of 23.0 to 23.9 in adult documented in this encounter [facility] Work Phone: Evaluation note* Diagnosis Ventricular arrhythmia- Primary Unspecified cardiac dysrhythmia PVC (premature ventricular contraction) Other premature beats Paroxysmal atrial fibrillation (Multi) Atrial fibrillation 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 High risk medication use Mixed hyperlipidemia Uncontrolled hypertension Former smoker Personal history of tobacco use, presenting hazards to health Type 2 diabetes mellitus without complication, without long-term current use of insulin (Multi) Stage 3a chronic kidney disease (Multi) Prostate cancer (Multi) Malignant neoplasm of prostate Abnormal electrocardiogram (ECG) (EKG) documented in this encounter [facility] Work Phone: Evaluation note* Diagnosis PVC (premature ventricular contraction) Other premature beats 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 Ventricular arrhythmia Unspecified cardiac dysrhythmia Abnormal electrocardiogram (ECG) (EKG) documented in this encounter [facility] Work Phone: Evaluation note* Diagnosis PVC (premature ventricular contraction) Other premature beats Paroxysmal atrial fibrillation ([facility]) Atrial fibrillation documented in this encounter [facility] Work Phone: Evaluation note* Diagnosis Primary hypertension (CMS/HCC)- Primary Unspecified essential hypertension PAF (paroxysmal atrial fibrillation) ([facility]/HCC) Atrial fibrillation Stage 3a chronic kidney disease (HCC) ([facility]/HCC) Type 2 diabetes mellitus with other specified complication, without long-term current use of insulin ([facility]/HCC) documented in this encounter [facility] HealthcareEvaluation note* Diagnosis Allergic sinusitis- Primary Type 2 diabetes mellitus with other specified complication, without long-term current use of insulin (CMS/HCC) Primary hypertension (CMS/HCC) Unspecified essential hypertension PAF (paroxysmal atrial fibrillation) ([facility]/HCC) Atrial fibrillation Exocrine pancreatic insufficiency (CMS/HCC) Other specified disease of pancreas Stage 3a chronic kidney disease (HCC) ([facility]/HCC) Mixed hyperlipidemia ([facility]/HCC) Mixed hyperlipidemia Chest pain, unspecified type documented in this encounter [facility] HealthcareEvaluation note* Diagnosis Basal cell carcinoma (BCC) of skin of left upper extremity including shoulder- Primary Skin neoplasm Neoplasm of unspecified nature of bone, soft tissue, and skin documented in this encounter [facility] HealthcareEvaluation note* Diagnosis Neoplasm of unspecified behavior of bone, soft tissue, and skin- Primary Encounter for removal of sutures documented in this encounter [facility] HealthcareEvaluation note* Diagnosis 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, including hip- Primary documented in this encounter [facility] HealthcareEvaluation note* Diagnosis Squamous cell carcinoma of skin of left upper limb, including shoulder- Primary documented in this encounter [facility]* Diagnosis Encounter for removal of sutures documented in this encounter [facility] HealthcareEvaluation note* Diagnosis Paroxysmal atrial fibrillation (Multi) [...] health documented in this encounter [facility] Work Phone: Evaluation note* Diagnosis Seborrheic keratosis- Primary Lentigines Actinic keratosis Neoplasm of unspecified behavior of bone, soft tissue, and skin History of malignant neoplasm of skin Personal history of other malignant neoplasm of skin documented in this encounter [facility] HealthcareEvaluation note* Diagnosis Chronic anticoagulation- Primary Encounter for long-term (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 of anticoagulants Squamous cell carcinoma of skin of face Other malignant neoplasm of skin of other and unspecified parts of face documented in this encounter [facility] HealthcareEvaluation note* Diagnosis Squamous cell carcinoma of skin of face- Primary Other malignant neoplasm of skin of other and unspecified parts of face Chronic anticoagulation Encounter for long-term (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 of anticoagulants documented in this encounter [facility] HealthcareEvaluation note* Diagnosis Actinic keratosis- Primary Spitting suture, initial encounter documented in this encounter [facility] HealthcareEvaluation note* Diagnosis Acute cystitis with hematuria- Primary Dysuria documented in this encounter [facility] HealthcareEvaluation note* Diagnosis Primary hypertension Unspecified essential hypertension documented in this encounter [facility] Work Phone: Evaluation note* Diagnosis BMI 22.0-22.9, adult- Primary Primary hypertension Unspecified essential hypertension 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 documented in this encounter [facility] Work Phone: Evaluation note* Diagnosis 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 documented in this encounter [facility] HealthcareEvaluation note* Diagnosis Acute bronchitis due to other specified organisms- Primary Cough, unspecified type Pharyngitis, unspecified etiology documented in this encounter [facility] HealthcareHistory general [...] HistoryDepressionMedical HistoryBCC removed from left upper lip, [facility] 12/04/2021urgical HistoryappendectomySurgical Historyprostatectomy Surgical HistoryProcedure:prostatectomySurgical HistoryProcedure:Appendectomy 1952Surgical HistoryProcedure:Back surgerySurgical HistoryProcedure:Knee replacementSurgical HistoryProcedure:35 Radiation Treatments,6- 7;Disease:Reoccurance Prostrate Cancer 14015Qtadkkrt History Procedure:ogduushjadb2707Gpcyoson HistoryColonoscopy per Dr. Yu.7--16 Surgical HistoryLeft Cataract wyyowog0-85-17Ofhrrnwm HistoryRight cataract surgery per in [place], [place].6-9-93Ttaljapy HistoryMohs repair / left upper lip12/08/Hospitalization Historysee above [email or web address] Other History of Present illness NarrativeReturns in [...] we suggest continued therapy as before without change.MP-[facility] [address] DO Work Phone: Hospital Discharge [...] the incision. PLEASE NOTIFY OUR OFFICE at [phone] if you: -Develop a fever of 101 [...] rate. FOLLOW UP -Call the office at [phone] for a follow up appointment 1 week. * AFTER HOURS PHONE NUMBER [phone] *[facility] Work Phone: Hospital Discharge instructions Additional Instructions No exertional activity Antibiotic ointment to the wound 3 times per day Tylenol or Motrin for pain Call the office for any questions or concerns Follow-up in the office as scheduledOhio[facility] Work Phone: Reason for referral (narrative)No reason for referral information availableOhiohealth [facility]ide [facility] Work Phone: Advance Directives No Advanced Directives [...] MYOCARDIAL SPECT MULTIPLE STUDIES Missy Khoury MD [address] [place] [address] Referral IDStatusReasonStart DateExpiration DateVisits RequestedVisits [id number] Perform Procedure [id number] / ProceduresReferred By ContactReferred To ContactCardiology Diagnoses PVC (premature ventricular contraction) Paroxysmal atrial fibrillation (Multi) Procedures Holter Or Event Incident Response Manager Missy Khoury MD [address] [place] [address] Referral IDStatusReasonStart DateExpiration DateVisits RequestedVisits [id number] Review/[id number] / ProceduresReferred By ContactReferred To ContactCardiology Diagnoses PVC (premature ventricular contraction) Paroxysmal atrial fibrillation (Multi) Procedures Transthoracic Echo Complete [place] ECHO TTHRC R-T 2D W/WOM-MODE COMPL SPEC&COLR D Missy Khoury MD [address] [place] [address] Referral IDStatusReasonStart DateExpiration DateVisits RequestedVisits [id number] Perform Procedure /[id number] / ProceduresReferred By ContactReferred To ContactCardiology Diagnoses Paroxysmal atrial fibrillation (Multi) Procedures Follow Up In Cardiology Missy Khoury MD [address] [place] [address] Missy Khoury MD [address] [place] [address] Referral IDStatusReasonStart DateExpiration DateVisits RequestedVisits [id number]/22/20248/[id number] / Procedures Referred By ContactReferred To Contact Diagnoses Paroxysmal atrial fibrillation (CMS/HCC) Procedures ECG 12 Lead Epifanio Davis MD [address] [address], [address] [address] Referral IDStatusReasonStart DateExpiration DateVisits RequestedVisits [id number]/20/20242/[id number] / Procedures Referred By ContactReferred To ContactCardiology Diagnoses Paroxysmal atrial fibrillation (CMS/HCC) Procedures Follow Up In Cardiology Epifanio Davis MD [address] [facility] [address] [place] [address] Epifanio Davis MD [address] [facility] [address] [place] [address] Referral IDStatusReasonStart DateExpiration DateVisits RequestedVisits [id number]/20/20242/19/202511 Additional Source Comments Care Teams (unrecognized sec tion and content) Team Status: Inactive Member Role Status Dates Nirav Bello DO Primary Care Provider Active Tania Rome ProviderActiveJuan Guzman DOAttending ProviderActive Team Status: Active Member Role Status Dates Shonna Sim DO Family Provider Active Titi Schofield Care ProviderActive Team Status: Inactive Member Role Status Dates Nirav Bello DO Primary Care Provider Active Shonna Sim DOFamichael ProviderActiveImaswapna Garcia MDAttending Provider ActiveTeam MemberRelationshipSpecialtyStart DateEnd Date Nirav Bello DO [address] [facility] [address] [place] [address] PCP - General05/24/99 Team Status: Inactive Member Role Status Dates Nirav Bello DO Primary Care Provider Active Start: September 13, 2023 End: September 13, 2023NON STAFFAttending ProviderActiveStart: September 13, 2023 End: September 13, 2023Team MemberRelationshipSpecialtyStart DateEnd Date Nirav Bello DO [address] [place] [address] PCP - Aetna05/24/20 Nirav Bello DO [address] [place] [address] PCP - GeneralInternal Medicine11/10/22 Marianne Davis MD [address] [facility] [address] [place] [address] Referring GpivjamjkOhqtydavbl45/20/23Team MemberRelationshipSpecialtyStart Date End Date Nirav Bello DO [address] [place] [address] PCP - Aetna05/24/20 Nirav Bello DO [address] [place] [address] PCP - GeneralInternal Medicine11/10/22 Marianne Davis MD 703 [facility] [address] [place] [address] Referring ExkxeeikaPnoigvlhuv32/20/23Team MemberRelationshipSpecialtyStart Date End Date Nirav Bello DO [address] [place] [address] PCP - General05/24/99Team MemberRelationshipSpecialtyStart DateEnd Date Nirav Bello DO [address] [place] [address] PCP - General05/24/99Team MemberRelationshipSpecialtyStart DateEnd Date Nirav Bello DO [address] [place] [address] PCP - General05/24/99Team MemberRelationshipSpecialtyStart DateEnd Date Nirav Bello DO [address] [place] [address] PCP - General05/24/99Team MemberRelationshipSpecialtyStart DateEnd Date Nirav Bello DO [address] [place] [address] PCP - General05/24/99Team MemberRelationshipSpecialtyStart DateEnd Date Nirav Bello DO [address] [place] [address] PCP - General05/24/99Team MemberRelationshipSpecialtyStart DateEnd Date Nirav Bello DO [address] [place] [address] PCP - General05/24/99Team MemberRelationshipSpecialtyStart DateEnd Date Nirav Bello DO [address] [place] [address] PCP - Aetna05/24/20 Nirav Bello DO [address] [place] [address] PCP - GeneralInternal Medicine11/10/22 Marianne Davis MD 3 [facility] [address] [place] [address] Referring UwoafwkooLwrvvewbjr96/20/23Team MemberRelationshipSpecialtyStart Date End Date Nirav Bello DO [address] [place] [address] PCP - Aetna05/24/20 Nirav Bello DO [address] [place] [address] PCP - GeneralInternal Medicine11/10/22 Marianne Davis MD [address] [place] [address], [place] [address] Referring AisexrjamSnrftvzvyd46/20/23Team MemberRelationshipSpecialtyStart Date End Date Nirav Bello DO [address] [place] [address] PCP - Aetna05/24/20 Nirav Bello DO [address] [place] [address] PCP - GeneralInternal Medicine11/10/22 Marianne Davis MD [address] [place] [address] Referring AxnyumnnlRubdiiooiz82/20/23Te MemberRelationshipSpecialtyStart Date End Date Nirav Bello DO [address] [place] [address] PCP - Aet[employer]05/24/20 Nirav Bello DO [address] [place] [address] PCP - GeneralInternal Medicine11/10/22 Marianne Davis MD [address] [place] [address], [place] [address] Referring NstkbpflgSkjlecrfih71/20/23Team MemberRelationshipSpecialtyStart Date End Date Nirav Bello DO [address] [place] [address] PCP - Aetna05/24/20 Nirav Bello DO [address] [place] [address] PCP - GeneralInternal Medicine11/10/22 Marianne Davis MD [address] [place] [address] Referring OpgemvofaSnbufljamd65/20/23Tealexa MemberRelationshipSpecialtyStart Date End Date Nirav Bello DO [address] [place] [address] PCP - Melo05/24/20 Nirav Bello DO [address] [place] [address] PCP - GeneralInternal Medicine11/10/22 Marianne Davis MD [address] [place] [address] Referring NnnaqkwixQaeufyjsmq16/20/23 Team Status: Inactive Member Role Status Dates Nirav Bello DO Primary Care Provider Active Start: August 09, 2024 End: August 09, 2024[facility] CenterHelen Mendosa ProviderActiveStart: August 09, 2024 End: August 09, 2024Team MemberRelationshipSpecialtyStart DateEnd Date Nirav Bello DO [address] [place] [address] PCP - Aetna05/24/20 Nirav Bello DO [address] [place] [address] PCP - GeneralInternal Medicine11/10/22 Marianne Davis MD 703 [facility] [address] [place] [address] Referring WsegjhcxwRoujuwdbrj62/20/23Te MemberRelationshipSpecialtyStart Date End Date iNrav Bello DO [address] [place] [address] PCP - Aetna05/24/20 Nirav Bello DO [address] [place] [address] PCP - GeneralInternal Medicine11/10/22 Marianne Davis MD 703 [facility] [address] [place] [address] Referring ArexvpxspMudzggoctt76/20/23Te MemberRelationshipSpecialtyStart Date End Date Nirav Bello DO [address] [place] [address] PCP - Aetna05/24/20 Nirav Bello DO [address] [place] [address] PCP - GeneralInternal Medicine11/10/22 Marianne Davis MD 703 [facility] [address] [place] [address] Referring JbodrnvggBfzeaiohhs36/20/23Team MemberRelationshipSpecialtyStart Date End Date Nirav Bello DO [address] [place] [address] PCP - General05/24/99Team MemberRelationshipSpecialtyStart DateEnd Date Nirav Bello DO [address] [place] [address] PCP - Aetna05/24/20 Nirav Bello DO [address] [place] [address] PCP - GeneralInternal Medicine11/10/22 Marianne Davis MD [address] [place] [address] Referring CticmoiclTatgnvkksu32/20/23Team MemberRelationshipSpecialtyStart Date End Date Nirav Bello DO [address] [place] [address] PCP - Aetna05/24/20 Nirav Bello DO [address] [place] [address] PCP - GeneralInternal Medicine11/10/22 Marianne Davis MD [address] [place] [address] Referring IfjlztziwHcymwsofrr13/20/23Team MemberRelationshipSpecialtyStart Date End Date Nirav Bello DO [address] [place] [address] PCP - Aetna05/24/20 Nirav Bello DO [address] [place] [address] PCP - GeneralInternal Medicine11/10/22 Marianne Davis MD [address] [address] Referring RvdgdjoblBlbbjltomf26/20/23Team MemberRelationshipSpecialtyStart Date End Date Nirav Bello DO [address] [place] [address] PCP - Aetna05/24/20 Nirav Bello DO [address] [place] [address] PCP - GeneralInternal Medicine11/10/22 Marianne Davis MD [address] [address] Referring XkehplaniOmbyzkvyfl91/20/23Team MemberRelationshipSpecialtyStart Date End Date Nirav Bello DO [address] [place] [address] PCP - Aetna05/24/20 Nirav Bello DO [address] [place] [address] PCP - GeneralInternal Medicine11/10/22 Marianne Davis MD [address] [address] Referring RxlhhjgsoQspdbigqst12/20/23 Team Status: Active Member Role Status Dates Nirav Bello DO Primary Care Provider Active Team Status: Inactive Member Role Status Dates Nirav Bello DO Primary Care Provider Active Start: November 14, 2024 End: November 14, 2024Lisa Cordon ProviderActiveStart: November 14, 2024 End: November 14, 2024 Team Status: Inactive Member Role Status Dates Nirav Bello DO Primary Care Provider Active Start: November 20, 2024 End: November 20, 2024Pacelia Guzman DOAttending ProviderActiveStart: November 20, 2024 End: November 20, 2024Team MemberRelationshipSpecialtyStart DateEnd Date Nirav Bello DO [address] [place] [address] PCP - Aetna05/24/20 Nirav Bello DO [address] [place] [address] PCP - GeneralInternal Medicine11/10/22 Marianne Davis MD [address] [address] Referring MkqxyxqdcXzlspejzpi04/20/23Team MemberRelationshipSpecialtyStart Date End Date Nirav Bello DO [address] [place] [address] PCP - Aetna05/24/20 Nirav Bello DO [address] [place] [address] PCP - GeneralInternal Medicine11/10/22 Marianne Davis MD [address] [place] [address] Referring ZlmopjgqnOwdevwxvkw64/20/23Team MemberRelationshipSpecialtyStart Date End Date Nirav Bello DO [address] [place] [address] PCP - Aet05/24/20 Nirav Bello DO [address] [place] [address] PCP - GeneralInternal Medicine11/10/22 Marianne Davis MD [address] [place] [address] Referring ZhhzpgjgyXndewkjvyt66/20/23 Team Status: Inactive Member Role Status Dates Nirav Bello DO Primary Care Provider Active Start: December 20, 2024 End: December 20, 2024Helen Mario ProviderActiveStart: December 20, 2024 End: December 20, 2024Team MemberRelationshipSpecialtyStart DateEnd Date Blayne Givens MD [address] [place] [address] PCP - GeneralInternal Medicine12/26/24Team MemberRelationshipSpecialtyStart Date End Date Blayne Givens MD [address] [place] [address] PCP - GeneralInternal Medicine12/26/24Te MemberRelationshipSpecialtyStart Date End Date Nirav Bello DO [address] [place] [address] PCP - Aetna05/24/20 Blayne Givens MD [address] [place] [address] PCP - GeneralInternal Medicine01/01/25 Marianne Davis MD 703 [facility] [address] [place] [address] Referring XgtpicyjjQbmeixmfae46/20/23Te MemberRelationshipSpecialtyStart Date End Date Nirav Bello DO [address] [place] [address] PCP - Aetna05/24/20 Blayne Givens MD [address] [place] [address] PCP - GeneralInternal Medicine01/01/25 Marianne Davis MD 703 [facility] [address] [place] [address] Referring IipoqtokqQkqyjfsrdq05/20/23Te MemberRelationshipSpecialtyStart Date End Date Nirav Bello DO [address] [place] [address] PCP - Aetna05/24/20 Blayne Givens MD [address] [place] [address] PCP - GeneralInternal Medicine01/01/25 Marianne Davis MD 703 [facility] [address] [place] [address] Referring DvlrzxfaeZpoothbwzr25/20/23 MemberRelationshipSpecialtyStart Date End Date Nirav Bello DO [address] [place] [address] PCP - Aet05/24/20 Blayne Givens MD [address] [place] [address] PCP - GeneralInternal Medicine01/01/25 Marianne Davis MD 703 [facility] [address] [place] [address] Referring QfcoihyvuTwwblzfpom71/20/23 MemberRelationshipSpecialtyStart Date End Date Nirav Bello DO [address] [place] [address] PCP - Aet05/24/20 Nirav Bello DO [address] [place] [address] PCP - GeneralInternal Medicine Blayne Givens MD [address] [place] [address] PCP - GeneralInternal Medicine01/01/25 Marianne Davis MD 7[address] [facility] [address] [place] [address] Referring XeuccddqlAyehgkkonn28/20/23Te MemberRelationshipSpecialtyStart Date End Date Nirav Bello DO [address] [place] [address] PCP - Aetna05/24/20 Nirav Bello DO [address] [place] [address] PCP - GeneralInternal Medicine Blayne Givens MD [address] [place] [address] PCP - GeneralInternal Medicine01/01/25 Marianne Davis MD 703 [facility] [address] [place] [address] Referring LtzitfbjcGrewwbhyrg38/20/23 MemberRelationshipSpecialtyStart Date End Date Nirav Bello DO [address] [place] [address] PCP - Aetna05/24/20 Blayne Givens MD [address] [place] [address] PCP - GeneralInternal Medicine01/01/25 Marianne Davis MD [address] [facility] [address] [place] [address] Referring KqdadmaznMpgtouloqk75/20/23 Goals (unrecognized section and content) Goals may [...] section and content) DATE CREATED AUTHOR 07/15/2022 [facility] DATE CREATED AUTHOR AUTHOR'S ORGANIZ ATION 07/15/2022 [employer] DATE CREATED AUTHOR AUTHOR'S ORGANIZ ATION 09/10/2022 [facility] DATE CREATED AUTHOR AUTHOR'S ORGANIZ ATION 02/25/2024 [facility] DATE CREATED AUTHOR AUTHOR'S ORGANIZ ATION 11/18/2024 [facility] DATE CREATED AUTHOR AUTHOR'S ORGANIZ ATION 12/29/2024 [facility] DATE CREATED AUTHOR AUTHOR'S ORGANIZ ATION 01/10/2025 [facility] DATE CREATED AUTHOR AUTHOR'S ORGANIZ ATION 04/01/2025 [facility] EPIC REASON FOR VISIT (unrecogniz ed section and content) ReasonCommentsFollow-up5 month Follow up for HypertensionSpecialtyDiagnoses / ProceduresReferred By ContactReferred To ContactCardiology Diagnoses Paroxysmal atrial fibrillation (Multi) Procedures Follow Up In Cardiology Missy Kohury MD [address] [address] Phone: tel: fax: Missy Khoury MD [address] [address] Phone: tel: fax: Referral IDStatusReasonStart DateExpiration DateVisits RequestedVisits [id number]/9/202412/9/677071ScvwwtDzxfkfweAbcnvj Exam SpecialtyDiagnoses / ProceduresReferred By ContactReferred To Contact Diagnoses Paroxysmal atrial fibrillation (CMS/HCC) Procedures ECG 12 Lead Epifanio Davis MD [address] [facility] [address] [place] [address] Referral [facility]Status[facility] DateExpiration DateVisits RequestedVisits [id number]/20/20242/[id number]-dqNptyci up after testingReferral IDStatAultman Hospital DateExpiration DateVisits Requested Visits [id number]/22/20248/[id number]-trXqp onSpecialtyDiagnoses / ProceduresReferred By ContactReferred To Contact Radiology Diagnoses PVC (premature ventricular contraction) 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 Ventricular arrhythmia Abnormal electrocardiogram (ECG) (EKG) Procedures Nuclear Stress Test Nuclear Stress Test CHG MYOCARDIAL SPECT MULTIPLE STUDIES Missy Khoury MD [address] [place] [address] [address] [place] [address] Referral IDStaLutheran Hospital DateExpiration DateVisits RequestedVisits [id number] Perform Procedure [id number] / ProceduresReferred By ContactReferred To ContactCardiology Diagnoses PVC (premature ventricular contraction) Paroxysmal atrial fibrillation (Multi) Procedures Transthoracic Echo Complete [place] ECHO TTHRC R-T 2D W/WOM-MODE COMPL SPEC&COLR D Missy Khoury MD [address] [address] Ref[facility] DateExpiration DateVisits RequestedVisits [id number] Perform Procedure [id number] Follow-upPatient presents today for a [facility] follow up 01/10/24 for hypertension. He was in the ER the previous week for a-fib. He was started on Abiraterone recently and his BP went up consistently in the 160s. He sees cardiology Thurs for the a-fib.ReasonComments Hospital Follow-upPt presents hospital follow up at [facility] on 05/03 for hypertension. Pt states he BP still feels elevated, although he hasn't been checking he BP at home. Pt denies chest pain, SOB or blurry visionReasonComments ExcisionReasonCommentsFollow-upReasonCommentsHypertensionPatient's BP readings 190/90 in the evenings. Patient was seen at [facility] 08/01/24 for hypertension and Norvasc 5mg one tab every AM was started. Had follow up ER visit with Olga 08/04/24ReasonCommentsSuture / Staple RemovalReasonCommentsSuspicious Skin LesionNew Problem : SCC left cheekSpecialtyDiagnoses / ProceduresReferred By ContactReferred To ContactOtolaryngology Diagnoses Squamous cell carcinoma of skin of face Procedures [place] OFFICE/OUTPATIENT NEW HIGH MDM 60 MINUTES Laura Hensley MD [address] [facility] [address] [place] [address] Phone: tel: fax: Juan Guzman, [address] [place] [address] Phone: tel: fax: Referral IDStatusReasonStart DateExpiration DateVisits RequestedVisits [id number] Specialty Services Required /[id number]re Annual Wellness Visit [...] In Cardiology Missy Khoury MD [address] [facility] [address] [place] [address] Phone: tel: fax: Missy Khoury MD [address] [facility] [address] [place] [address] Phone: tel: fax: Referral IDStatusReasonStart DateExpiration DateVisits RequestedVisits [id number]/12/20255/[id number]-ga3 week Follow up for HypertensionSpecialtyDiagnoses / ProceduresReferred By Contact Referred To ContactCardiology Diagnoses Primary hypertension Procedures Follow Up In Cardiology Seng Angeles, PEDIATRICIAN MANAGING PARTNER-POST HOLE DIGGING MACHINE OPERATOR [address] [facility] [address] [place] [address] Phone: tel: fax: Referral IDStatusReasonStart DateExpiration DateVisits RequestedVisits [id number]/5/20258/[id number] Micrographic Surgery FOR RECORDS PERTAINING TO PATIENTS [...] BE BASED ON THE PRIMARY CLINICAL RECORDS. [employer] [facility]. provides no warranty or guarantee of the accuracy or completeness of information in this document.
--- OUTSIDE RECORDS SUMMARY | 2025-04-30 07:30 | XMS_ITS | Encounter Summary ---
Author Organization [facility] Address [address] [facility] [address] Care Team Providers Care Technology Resource Teacher Name Role Phone Nirav Duenas DO Unavailable [phone] Marianne Davis MD Unavailable Pierre Murdock MD Primary Care Provider [phone] Encounter Details DateTypeDepartmentCare Team (Latest Contact Info)Znwxxbusncj88/05/2025Orders Only [facility] [address] [facility] [address] [place] [address] Sara Fields LPN Mixed hyperlipidemia; Type 2 diabetes mellitus with other specified complication, without long-term current use of insulin (HCC); Primary hypertension Social History Tobacco UseTypesPacks/DayYears UsedDateSmoking Tobacco: FormerCigarettes0.33 06/12/1956 - 05/24/1959PipePassive Smoke Exposure: PastSmokeless Tobacco: Never Alcohol UseStandard Drinks/WeekCommentsYes0 (1 standard drink = 0.6 oz pure alcohol)on occasionAUDIT-CAnswerDate RecordedQ1: How often do you have a drink containing alcohol?2-4 times a month01/11/2024Q2: How many drinks containing alcohol do you have on a typical day when you are drinking?1 or Q3: How often do you have six or more drinks on one occasion?Never01/11/2024HQ-2 AnswerDate RecordedPatient Health Questionnaire-2 Flkkh897Sex and Gender InformationValueDate RecordedSex Assigned at BirthNot on fileLegal SexMale 08/05/2022 7:06 PM EDTGender IdentityNot on fileSexual OrientationNot on file documented as of this encounter Plan of Treatment DateTypeDepartmentCare Team (Latest Contact Info)Ymnxavuybgq90/17/2025 8:30 AM ESTOffice Visit [facility] [address] [place] [address] Charleen Hensley MD [address] [place] [address] 05/21/2025 9:30 AM ESTOffice Visit [facility] [address] [place] [address] NameTypePriorityAssociated DiagnosesOrder ScheduleLipid panelLabRoutine Mixed hyperlipidemia Expected: 05/09/2025 (Approximate), Expires: 04/27/2026Hemoglobin a1c with eag LabRoutine Type 2 diabetes mellitus with other specified complication, without long-term current use of insulin (HCC) Expected: 05/09/2025 (Approximate), Expires: 04/27/2026omprehensive metabolic panelLabRoutine Primary hypertension Expected: 05/09/2025 (Approximate), Expires: 04/27/2026BC auto differentialLab Routine Primary hypertension Expected: 05/09/2025 (Approximate), Expires: 04/27/2026documented as of this encounter Visit Diagnoses Diagnosis Mixed hyperlipidemia Type 2 diabetes mellitus with other specified complication, without long-term current use of insulin (HCC) Primary hypertension Unspecified essential hypertension documented in this encounter Care Teams Team MemberRelationshipSpecialtyStart DateEnd Date Nirav Duenas DO [address] [place] [address] PCP - [employer]05/24/20 Pierre Murdock MD [address] [place] [address] PCP - GeneralInternal Medicine01/01/25 Marianne Davis MD [address] [address] Referring DcudljfmaVioxijeats18/20/23documented as of this encounter
--- OUTSIDE RECORDS SUMMARY | 2025-04-30 07:30 | XMS_ITS | Clinical Summary ---
Author Organization [facility] Address [address] [place] [address] Phone Care Team Providers Care Head End Desizing 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 Name Role Phone Pierre Murdock MD Primary Care Provider [phone] Allergies Active AllergyReactionsCriticalityNoted DateCommentsSulfa (Sulfonamide Antibiotics)Hives05/28/20234455WrpkqprinobPnher22/22/2024 hypertension Medications MedicationSigDispense QuantityRefillsLast FilledStart DateEnd DateStatus [...] mg) by mouth once daily at bedtime.05/14/2021ctive nhxnbt-aprarrhi-jwaiqef (Creon) 24,000-76,000 -120,000 unit capsule Take 1 capsule by mouth 3 times daily (morning, midday, late afternoon). 11/17/2022ctive cloNIDine (Catapres) 0.1 mg tablet Indications:Primary hypertensionTake 1 tablet (0.1 mg) by mouth once daily. 90 tablet /ctive rivaroxaban (Xarelto) 20 mg tablet Indications:Paroxysmal atrial fibrillation (Multi)Take 1 tablet (20 mg) by mouth once daily. 90 tablet ctive lisinopril 20 mg tablet Indications:Primary hypertensionTake 1 tablet (20 mg) by mouth 2 times a day. 180 tablet ctive amLODIPine (Norvasc) 5 mg tablet Indications:Primary hypertensionTAKE 1 TABLET ONCE DAILY 90 tablet tive metoprolol succinate XL (Toprol-XL) 50 mg 24 hr tablet Indications:Primary hypertensionTAKE 1 TABLET TWICE A DAY, DO NOT CRUSH OR CHEW 180 tablet 04/20/2025tive atorvastatin (Lipitor) 20 mg tablet Indications:Mixed hyperlipidemiaTAKE 1/2 TABLET(=10MG TOTAL) ONCE DAILY 45 tablet 04/20/2025tive metoprolol succinate XL (Toprol-XL) 50 mg 24 hr tablet Indications:Primary hypertensionTake 1 tablet (50 mg) by mouth 2 times a day. Do not crush or chew. 180 tablet Discontinued atorvastatin (Lipitor) 20 mg tablet Indications:Mixed hyperlipidemiaTake 0.5 tablets (10 mg) by mouth once daily. 45 tablet Discontinued Active Problems ProblemNoted DateDiagnosed DateMedication course mujuuss8610/02/2024MI 22.0-22.9, adult05/01/2024Encounter to discuss test aadillw1205/01/2024enign hypertensive kidney disease with chronic kidney disease stage V or end stage renal disease 05/01/2024VC (premature ventricular contraction)01/13/2024Long term current use of anticoagulant nepbjnd6401/13/2024High risk medication use01/13/2024Stage 3a chronic kidney dbjtrty4001/13/2024rostate tytilv2501/13/2024Nonrheumatic mitral valve wrofhzltvdrwo21/22/2024Former ppzkpz2007/13/2023rimary hypertension 05/28/2023iabetes clzhrgvo68/05/5652Zldzdocuawxdbg23/05/2024aroxysmal atrial pilbphrmslep88/05/2024 Encounters DateTypeDepartmentCare TzcmUahprsaimtu79/26/2025[address] [address] Missy Khoury MD Primary hypertension; Mixed xqnwkvqumspnrm05/23/2025Refill [address] [address] Missy Khoury MD Primary hypertensionfrom Last 3 Months Immunizations ImmunizationAdministration DatesNext DueInfluenza, [...] InformationValueDate RecordedSex Assigned at BirthNot on fileLegal CckIngz07/25/2022 9:56 PM ESTGender IdentityNot on fileSexual OrientationNot on file Last Filed Vital Signs Vital SignReadingTime TakenCommentsBlood Sylrcumu361/72001/09/2025 8:06 AM EDT Dhvho1551/19/2025 7:53 AM EDTTemperature--Respiratory Rate--Oxygen Saturation-- Inhaled Oxygen Concentration--Lutaft63.9 kg (160 lb 12.8 oz)01/09/2025 7:53 AM JFYAfcfjl223.3 cm (5' 11 )01/09/2025 7:53 AM EDTBody Mass Index22.43001/09/2025 7:53 AM EDT Plan of Treatment DateTypeDepartmentCare Team (Latest Contact Info)Urqkykhkjpy37/19/2026 10:00 AM ESTOffice Visit [address] [place] [address] Missy Khoury MD [address] [facility] [address] [place], [place] [id number] Health MaintenanceDue DateLast DoneCommentsDiabetes: Hemoglobin A1C1938 Diabetes: Urine Protein Jzxvjabsc92/21/1939Lipid Panel1938Medicare Annual Wellness Visit (AWV)1938Diabetes: Retinopathy Ocnoqgdle87/21/1949 DTaP/Tdap/Td Vaccines (1 - Tdap)1960SV High Risk: (Elderly (60+) or Population) (1 - 1-dose 75+ series)2013Influenza Vaccine (#1) 5105/25/2023, 03/20/2023, 03/10/2022, Additional history existsCOVID-19 Vaccine ( season)5105/25/2023, 04/28/2023, 04/03/2022, Additional history existsPneumococcal ZxepfgcQputccziu12/01/2017, 12/14/2013, 05/24/2012, Additional history existsZoster EdnhmlsaXjxqsgsbh80/19/2019, 12/22/2018, 10/10/2012one Density FudvQninybhjgqsf65/18/2024HIB VaccinesAged OutNo longer eligible based on patient's [...] patient's age to complete this topic Insurance * Guarantor: Epifanio WalshAccount TypeRelation to PatientDate of BirthPhone Billing AddressPersonal/JefqumXdnu38/21/1941 [address] [place] [address] Care Teams Team MemberRelationshipSpecialtyStart DateEnd Pierre Murdock MD [address] [facility] [address] [place] [address] PCP - GeneralInternal Medicine12/26/24
--- OUTSIDE RECORDS SUMMARY | 2025-04-30 07:31 | XMS_ITS | Encounter Summary ---
Author Organization [facility] Address [address] [place] [address] Phone Care Team Providers Care Network Security Architect Name Role Phone Pierre Murdock MD Primary Care Provider [phone] Reason for Visit * ReasonCommentsMed Refill Encounter Details DateTypeDepartmentCare Team (Latest Contact Info)Fovyuppmilc19/26/2025Refill [address] [address] Missy Khoury MD [address] [place] [address] Primary hypertension; Mixed hyperlipidemia Social History Tobacco UseTypesPacks/DayYears UsedDateSmoking Tobacco: FormerCigarettesQuit: 1990Smokeless Tobacco: NeverAlcohol UseStandard Drinks/WeekCommentsNever0 (1 standard drink = 0.6 oz pure alcohol)Sex and Gender InformationValueDate RecordedSex Assigned at BirthNot on fileLegal OmeAvvp67/25/2022 9:56 PM EST Gender IdentityNot on fileSexual OrientationNot on filedocumented as of this encounter Plan of Treatment DateTypeDepartmentCare Team (Latest Contact Info)Hbwhkxqlwvw27/19/2026 10:00 AM ESTOffice Visit [address] [address] Missy Khoury MD [address] [place] [address] documented as of this encounter Visit Diagnoses Diagnosis Primary hypertension Unspecified essential hypertension Mixed hyperlipidemia documented in this encounter Additional Health Concerns AssessmentNoted TimeA fall risk assessment has been completed for the patient 01/09/2025 7:52 AM EDTdocumented as of this encounter Care Teams Team MemberRelationshipSpecialtyStart DateEnd Pierre Murdock MD [address] [facility] [address] [facility] [address] [place] [address] PCP - GeneralInternal Medicine12/26/24documented as of this encounter
--- OUTSIDE RECORDS SUMMARY | 2025-04-30 07:31 | XMS_ITS | Clinical Summary ---
Author Organization [facility] Address [address] [place] [address] Care Team Providers Care Pack Worker Name Role Phone Nirav Duenas DO Unavailable [phone] Marianne Davis MD Unavailable [phone] Pierre Murdock MD Primary Care Provider [phone] Allergies Active AllergyReactionsCriticalityNoted DateCommentsSulfa AntibioticsHives 05/28/20230934ZvvcmipqwbhcaAtwucde29/21/2023 Medications MedicationSigDispense QuantityRefillsLast FilledStart DateEnd DateStatus rivaroxaban [...] for high blood pressure 180 tablet 112/30/2024Active amLODIPine (Norvasc) 5 MG tablet Indications:Primary hypertensionTake [...] 1 TABLET AT BEDTIME 90 tablet 5Active Creon 18690-80711 units capsule Indications:Malignant neoplasm of prostate (HCC),Exocrine pancreatic insufficiency (HCC)TAKE 1 CAPSULE IN THE MORNING, 1 CAPSULE AT NOON AND 1 CAPSULE INTHE EVENING WITH MEALS 300 capsule 5Active azithromycin (Zithromax Z-Herb) 250 MG tablet Indications:Acute bronchitis due to other specified organismsTake 2 tablets (500 mg) on Day 1, followed by 1 tablet (250 mg) once daily on Days 2 through 5. 6 tablet Expired Active Problems ProblemNoted DateDiagnosed DateAllergic lusdejely84/18/2024Frequent PVCs 4PAF (paroxysmal atrial fibrillation)05/12/2023Exocrine pancreatic /20/1976Czsgijjbqhzjki01/13/2023Type 2 diabetes mellitus with other specified ulymlovrfpdo99/13/2023asal cell carcinoma (BCC) of skin of left upper lip10/11/2022asal cell carcinoma of back10/11/2022asal cell carcinoma (BCC) of chin10/11/2022asal cell carcinoma of yrbzbzdx42/21/2023asal cell carcinoma of left cheek10/11/2022CC (basal cell carcinoma), scalp/neck 10/11/2022Stage 3a chronic kidney ndqiswu3405/14/2021ardiac giiwjkhihc68/08/2020 Hyperlipidemia, ychxfacqwxu73/15/1313Eyddnw33/14/2333Dnyizvmglt66/14/2016HTN (hypertension)05/02/2015Prostate cancer metastatic to bone05/02/2015IBS (irritable bowel syndrome)05/02/2015 Resolved Problems ProblemNoted DateDiagnosed DateResolved DateFat pad jpysosuq81 Medication course dqynhez44enign hypertensive kidney disease with chronic kidney tokwsbr35ody mass index (BMI) of 23.0 to 23.9 in adultEncounter to discuss test xxmddkx0005/01/2024 11/09/2024High risk medication useLong term current use of anticoagulant wxyjfrv75Nonrheumatic mitral valve regurgitation Prostate tisxum16Former auiknu1507/13/2023 11/09/2024 Encounters DateTypeDepartmentCare TfgjHyhejhrfgoc71/05/2025Orders Only [facility] [address] [place] [address] Sara Fields LPN Mixed hyperlipidemia; Type 2 diabetes mellitus with other specified complication, without long-term current use of insulin (HCC); Primary bbehrzkhpeuh62/13/2025Orders Only [facility] [address] [place] [address] Unallocated, Carmelina Coulter MD 03/30/2025 1:35 PM ESTOffice Visit [facility] [address] [place] [address] Allison Harris NP Acute bronchitis due to other specified organisms (Primary Dx); Cough, unspecified type; Pharyngitis, unspecified eurzogpw44/07/4037Ylulss71/31/2025Refill [facility] [place] [facility] [address] [place] [address] Nirav Duenas DO Malignant neoplasm of prostate (HCC); Exocrine pancreatic insufficiency (HCC)03/14/2025linisync Result Encounter [facility] External Department Unsolicited Provider, Generic External Data from Last 3 Months Immunizations ImmunizationAdministration DatesNext DueInfluenza, High Dose Seasonal, Preservative Free03/12/2021,02/24/2020,03/01/2019,02/21/2019,02/25/2018, 03/16/2017,03/30/2016,03/22/2015Influenza, High-dose Seasonal, Quadrivalent, Preservative Free02/26/2021Influenza, Seasonal, Quadrivalent, Adjuvanted 03/20/2023,03/10/2022,03/15/2020Influenza, seasonal, intradermal, preservative free05/02/2015Influenza, trivalent, gdnbgauvea02/02/2024Moderna SARS-CoV-2 Booster Ppzhzptliwr20/27/2021Novel gckcbqolo-J7D3-43, preservative-free 05/31/2009Pneumococcal Conjugate PCV 13005/24/2016,12/14/2013Pneumococcal Polysaccharide TENU3500,07/23/2003Zoster, Rxyjlhdgqep84/19/2019, 12/22/2018Zoster, live10/10/2012 Family History Medical HistoryRelationNameCommentsHeart diseaseFatherWilliamHeart [...] on one occasion?Never01/11/2024HQ-2 AnswerDate RecordedPatient Health Questionnaire-2 Actcm786Sex and Gender InformationValueDate RecordedSex Assigned at BirthNot on fileLegal SexMale 08/05/2022 7:06 PM EDTGender IdentityNot on fileSexual OrientationNot on file Last Filed Vital Signs Vital SignReadingTime TakenCommentsBlood Sbvoxaau790/7603/30/2025 1:41 PM EST Ybdgp382603/30/2025 1:41 PM WZSSkaqcfyvcwa14.4 ??C (97.6 ??F)03/30/2025 1:41 PM ESTRespiratory Aiev191408/04/2024 10:06 AM EDTOxygen Uhhptmemzi57%03/30/2025 1:41 PM ESTInhaled Oxygen Concentration--Xweyoq04.8 kg (165 lb)03/30/2025 1:41 PM EST Iudjig989.3 cm (5' 9 )11/27/2024 10:09 AM EDTBody Mass Index24.37011/27/2024 10:09 AM EDT Plan of Treatment DateTypeDepartmentCare Team (Latest Contact Info)Laxoqhexwzy50/17/2025 8:30 AM ESTOffice Visit [facility] [address] [place] [address] Charleen Hensley MD [address] [place] [address] 05/21/2025 9:30 AM ESTOffice Visit [facility] [address] [facility] [facility] [address] [place] [address] Health MaintenanceDue DateLast DoneCommentsCT Ctyqdhbdzvxq14/21/1939FIT-DNA 1938FIT1938FOBT1938 8939Iorupdvnwcosb30/21/1939COVID-19 Vaccine ( season)5105/25/2023, 04/03/2022, 12/19/2021, Additional history existsDiabetes: Hemoglobin A1C, 05/10/2024, 11/05/2022, Additional history existsDiabetes: Urine Protein Bfrkjolxz66/09/2026 10/30/2024, 11/05/2021, 11/07/2020Medicare Annual Wellness (AWV)11/14/2025 11/14/2024, 11/14/2024Diabetes: Retinopathy Qslfycbuh29, 03/16/2024, 12/11/2021, Additional history ksbmfnLfsfzpflsoi83/03/2033 12/24/2022, 12/16/2015, 11/28/2015Colorectal Cancer Gdckddowl30/03/2033 Pneumococcal Vaccine: 65+ ChzbiYvwyovyme99/01/2017, 12/14/2013, 05/24/2012, Additional history existsInfluenza YwvsmzyUapxphjjq36/22/2025, 03/25/2024, 03/20/2023, Additional history exists Procedures Procedure NamePriorityDate/TimeAssociated DiagnosisCommentsDIABETIC RETINOPATHY SCREENING - OU - BOTH AHUEAbgalet02/12/2025 9:31 AM ESTSTREP DNA PROBERoutine 03/30/2025 1:50 PM EST Pharyngitis, unspecified etiology STATUS COVID-19/HPKRhvvxpt30/07/2025 1:50 PM EST Cough, unspecified type ALL CBC WITH AUTO EDIXVxlzgul51/22/2025 2:51 PM EDT POCT GLYCOSYLATED HEMOGLOBIN (HGB A1C)Kcpsfpw6111/14/2024 9:42 AM EDT Type 2 diabetes mellitus with other specified complication, without long-term current use of insulin (HCC) PVEDLHQEIHDPwtlxxn73/03/2023 1:49 PM EDTMICROALBUMIN CREATININE RATIO, URoutine 11/05/2021 from Last 3 Months or Most Recently Relevant to Health Maintenance Results * Diabetic Retinopathy Screening - OU - Both Eyes (04/04/2025 9:31 AM EST) Anatomical RegionLateralityModalityHeadOther Narrative Authorizing ProviderResult TypeResult StatusNoms Provider Unallocated MDOPHTH PHOTOGRAPHYFinal Result * STREP DNA PROBE (03/30/2025 1:50 PM EST)ComponentValueRef RangeTest Method Analysis TimePerformed AtPathologist SignatureRESULTnegativeNegativeSpecimen (Source)Anatomical Location / LateralityCollection Method / VolumeCollection TimeReceived QkxuWedapo15/07/2025 1:50 PM EST Narrative Authorizing ProviderResult TypeResult StatusRobin Emily Garett DOPOINT OF CARE TEST ENTER/EDIT ORDERABLESFinal Result * STATUS COVID-19/FLU (03/30/2025 1:50 PM EST)ComponentValueRef RangeTest Method Analysis TimePerformed AtPathologist SignatureFLU AnegativeFLU BnegativeSARS COV 2 RNAnegativeSpecimen (Source)Anatomical Location / LateralityCollection Method / VolumeCollection TimeReceived XvlbLjsoj18/07/2025 1:50 PM EST Narrative Authorizing ProviderResult TypeResult StatusRobin Emily Garett DOPOINT OF CARE TEST ENTER/EDIT ORDERABLESFinal Result * (ABNORMAL) ALL CBC WITH AUTO DIFF (03/14/2025 2:51 PM EDT)ComponentValueRef RangeTest MethodAnalysis TimePerformed AtPathologist SignatureTBH WBC7.64.0 - 11.0 10 3/uLTBHTBH RBC3.93(L)4.70 - 6.10 10 6/uLTBHTBH HGB12.1(L)14.0 - 18.0 g/dLTBHTBH HCT37.0(L)42.0 - 54.0 %TBHTBH MCV94.1(H)80.0 - 94.0 fLTBHTBH MCH 30.825.9 - 34.0 pgTBHTBH MCHC32.729.9 - 35.2 g/dLTBHTBH RDW13.811.0 - 15.0 % TBHTBH UQE620248 - 450 10 3/uLTBHTBH MPV10.59.5 - 13.5 fLTBHNEUTROPHILS PERCENT AUTO60.343.0 - 75.0 %TBHLYMPHOCYTES PERCENT AUTO27.620.5 - 60.0 %TBH MONOCYTES PERCENT AUTO6.71.7 - 12.0 %TBHTBH EO %3.90.9 - 7.0 %TBHBASOPHILS PERCENT AUTO1.00.2 - 2.0 %TBHIMMATURE GRANULOCYTES PCT AUTO0.50.0 - 0.5 %TBH NEUTROPHILS ABSOLUTE AUTO4.61.4 - 6.5 10 3/uLTBHLYMPHOCYTES ABSOLUTE AUTO2.1 1.2 - 3.8 10 3/uLTBHMONOCYTES ABSOLUTE AUTO0.50.3 - 0.8 10 3/uLTBHTBH EO #0.3 0.0 - 0.7 10 3/uLTBHBASOPHILS ABSOLUTE AUTO0.10.0 - 0.1 10 3/uLTBHIMMATURE GRANULOCYTES ABS AUTO0.04(H)0.00 - 0.03 10 3/uLTBHSpecimen (Source)Anatomical Location / LateralityCollection Method / VolumeCollection TimeReceived Time 03/14/2025 2:51 PM EDT1 2:58 PM EDT Narrative CLINISYNC - 03/14/2025 3:07 PM EDT Authorizing ProviderResult TypeResult StatusGeneric External Data Provider CLINISYNCFinal ResultPerforming OrganizationAddressCity/State/ZIP CodePhone Number [facility] * POCT glycosylated hemoglobin (Hb A1C) docked device (11/14/2024 9:42 AM EDT) ComponentValueRef RangeTest MethodAnalysis TimePerformed AtPathologist SignatureHemoglobin A1C6.9Specimen (Source)Anatomical Location / Laterality Collection Method / VolumeCollection TimeReceived TimeBloodVenous blood specimen / Gxoiust4311/14/2024 9:42 AM EDT Narrative Authorizing ProviderResult TypeResult StatusNirav Duenas DOPOINT OF CARE TEST ENTER/EDIT ORDERABLESFinal Result * Colonoscopy (12/24/2022 1:49 PM EDT)Anatomical RegionLateralityModality Endoscopy Narrative Authorizing ProviderResult TypeResult StatusUnknown Practice AENDOSCOPY PROCEDURE ORDERABLESFinal Result * MICROALBUMIN CREATININE RATIO, U (11/05/2021)ComponentValueRef RangeTest MethodAnalysis TimePerformed AtPathologist SignatureMALB<1.3<=30.0[facility]URINE UUQAR401.0320.00 - 300.00[facility]GAC[facility] EXTERNAL LABMALB CR RATIO11.40.0 - 29.9[facility] EXTERNAL LABMALB CR RATIO RANGESEE BELOWNOMS LEGACY EXTERNAL LABComment:NO MICROALBUMINURIA 0-29 MG/G CLINICAL MICROALBUMINURIA 30-300 MG/G MACROALBUMINURIA >300 MG/GPERFORMING LAB:see note [facility]GAC[facility] EXTERNAL LABComment:[facility] - [address] [place] [address] ,Ext. [phone] specimen (Source)Anatomical Location / LateralityCollection Method / VolumeCollection TimeReceived Time11/05/2021 Narrative Authorizing ProviderResult TypeResult StatusNirav Duenas DOECW LABSFinal ResultPerforming OrganizationAddressCity/State/ZIP CodePhone Number [facility] from Last 3 Months or Most Recently Relevant to Health Maintenance Insurance Care Teams Team MemberRelationshipSpecialtyStart DateEnd Date Nirav Duenas DO [address] [place] [address] PCP - [employer]05/24/20 Pierre Murdock MD [address] [facility] [address] [place] [address] PCP - GeneralInternal Medicine01/01/25 Marianne Davis MD [address] [facility] [address] [place] [address] Referring PrnbfrhjyHzobzvtech88/20/23
[2025-04-30 07:55] LABS: Hematocrit 36.7 % (42.0-54.0); Hemoglobin 12.1 g/dL (14.0-18.0); Immature Granulocytes Abs Auto 0.06 10^3/uL (0.00-0.03); Immature Granulocytes Pct Auto 0.8 % (0.0-0.5); Lymphocytes Absolute Auto 1.9 10^3/uL (1.2-3.8); Mean Corpuscular HGB Conc 33.0 g/dL (29.9-35.2); Mean Corpuscular Hemoglobin 30.9 pg (25.9-34.0); Mean Corpuscular Volume 93.6 fL (80.0-94.0); Platelet Count 211 10^3/uL (150-450); Red Blood Count 3.92 10^6/uL (4.70-6.10); White Blood Count 7.3 10^3/uL (4.0-11.0)
[2025-04-30 09:55] LABS: Prostate Specific Antigen Dx 6.13 ng/mL (<=4.00)
[2025-04-30 10:25] LABS: Alanine Aminotransferase 23 U/L (16-63); Albumin Globulin Ratio 0.9; Albumin Level 3.2 g/dL (3.4-5.0); Alkaline Phosphatase 92 U/L (46-116); Anion Gap 8.6; Aspartate Amino Transferase 18 U/L (15-37); Blood Urea Nitrogen 22.0 mg/dL (7.0-18.0); Calcium 8.7 mg/dL (8.5-10.1); Carbon Dioxide 29.1 mmol/L (21.0-32.0); Chloride 109 mmol/L (98-107); Estimated GFR (African America >60 (>=60 mL/min/1.73m^2); Estimated GFR (Non-African Ame >60 (>=60 mL/min/1.73m^2); Globulin 3.5 g/dL; Glucose 192 mg/dL (74-106); Potassium 3.7 mmol/L (3.5-5.1); Sodium 143 mmol/L (136-145); Total Protein 6.7 g/dL (6.4-8.2)
== END 2025-04-30 07:23 | disposition home or self-care (01) ==
LOC: LAB 07:23
PROVIDERS: PCP Internal Medicine; Visit Provider Urology
DX: C61 Malignant neoplasm of prostate (principal)
CPT/HCPCS: 36415; 80053; 83615; 83625; 84153; 85025

== ENCOUNTER 2025-05-16 07:36 | Outpatient (OUT) | payer MEDICARE, SELFPAY ==
--- OUTSIDE RECORDS SUMMARY | 2011-03-03 19:00 | XMS_ITS | Continuity of Care Document ---
Author Organization [facility] Address [address] [place] [address] Phone Care Team Providers Care Power Plant Installer Name Role Phone Hilario Bolanos Unavailable Unavailable Procedures Procedure Date Admin influenza virus vac FLU VACC PRSV FREE INC ANTIG Admin influenza virus vac Advance Directives Directive Yes / No Effective Date File Name No Information Encounters Encounter Description Practice Location Reason(s) For Visit Diagnoses Date Provider Providers Copied on Encounter [facility], [address] [place] [address], [id number], tel:[phone] [facility] No Information Aramis WALKER Hilario. [address] [place] [address], [id number], . tel:[phone] [facility], [address] [place] [address], [id number], tel:[phone] Flu No Information Aramis WALKER Hilario. [address] [place] [address], [id number], . tel:[phone] Family History Family Member Type Diagnosis Age At Onset No Information Payers Payer name Insurance type Covered democrat ID Authoriza tion(s) A[employer]na Medicare Advantage BABAR [id number] Social History Type Description Quantity Date Captured Comments Sex Male Smoking Status No Information Sexual Orientation Don't Know Chief Complaint And Reason For Visit No Information Reason For Referral Reason For Referral No Information History Of Present Illness Encounter Date Complaint History Of Prese nt Illness No Information Functional Status Date Functional Assessmen t No Information Instructions Date Instruction Additional Infor mation No Information Assessments Type Assessment Date No Information Patient Care Teams Name Effective Dates (start - stop) Status Members No Information
--- OUTSIDE RECORDS SUMMARY | 2025-05-09 08:30 | XMS_ITS | Encounter Summary ---
Author Organization [facility] Address [address] [place] [address] Care Team Providers Care Airfield Engineer Officer Name Role Phone Nirav Duenas DO Unavailable Marianne Davis MD Unavailable [phone] Pierre Murdock MD Primary Care Provider [phone] Reason for Visit * ReasonCommentsSkin Check Encounter Details DateTypeDepartmentCare Team (Latest Contact Info)Qjawwlzonsv37/17/2025 8:30 AM ESTOffice Visit [facility] [address] [facility] [address] [place] [address] Charleen Hensley MD [address] [facility] [address] [place] [address] Seborrheic keratosis (Primary Dx); Lentigines; History of malignant neoplasm of skin; Neoplasm of unspecified behavior of bone, soft tissue, and skin; Actinic keratosis Social History Tobacco UseTypesPacks/DayYears UsedDateSmoking Tobacco: FormerCigarettes0.33 [...] have six or more drinks on one occasion?Never4PHQ-2 AnswerDate RecordedPatient Health Questionnaire-2 [id number] and Gender InformationValueDate RecordedSex Assigned at BirthNot on fileLegal SexMale 08/05/2022 7:06 PM EDTGender IdentityNot on fileSexual OrientationNot on file documented as of this encounter Progress Notes * Charleen Hensley MD - 05/09/2025 8:30 AM EST Images from the original note were not included. Skin Check Location: Patient requests a full body skin examination Dermatologic history: history of Actinic Keratosis, history of Basal Cell Carcinoma, history of Squamous Cell Carcinoma Last visit: Last skin check 6 months ago, last office visit 12/2024 (Mohs, SCCIS nasal tip) Established patient All pertinent medical history, medications, and allergies were reviewed. General Exam: alert, oriented to person, place, and time, normal affect, well appearing Unaccompanied Areas not examined despite medical recommendation: Under socks Scalp, Examined , exam limited by hair Right leg Examined Head, Face Examined , Exam limited by persaud and mustache Left leg Examined Neck Examined Right foot not Examined Chest Examined Left foot not Examined Back Examined Buttocks Examined Patient kept underwear on Abdomen Examined Digits,nails: Examined Right arm Examined Left arm Examined Lymphatics: Not examined Hands Examined Skin Exam 1. SEBORRHEIC KERATOSIS [...] spectrum sunscreen SPF 30 or higher 3. HISTORY OF MALIGNANT NEOPLASM OF SKIN Generalized Recommend routine skin exams Recommended broad spectrum sunscreen with SPF 30 or higher. Recommended sunscreen handout given. 4. NEOPLASM OF UNSPECIFIED BEHAVIOR OF BONE, SOFT TISSUE, AND SKIN (2) Left Preauricular Area [place] papule - Lesion biopsy Type of biopsy: tangential Informed consent: discussed and consent obtained Informed consent comment: The risks and benefits of the biopsy were discussed. Risks include but are not limited to bleeding, infection, scarring, pain, and nerve damage.Verbal consent was obtained. Procedure prep: Patient was prepped and draped in usual sterile fashion Prep type: Isopropyl alcohol Anesthesia: the lesion was anesthetized in a standard fashion Anesthetic: 1% lidocaine w/ epinephrine 1-100,000 buffered w/ 8.4% NaHCO3 Instrument used: DermaBlade Hemostasis achieved with: aluminum chloride Outcome: patient tolerated procedure well Outcome comment: The specimen was placed in a prelabeled formalin container to be sent for pathology Post-procedure details: sterile dressing applied and wound care instructions given Post-procedure details comment: Emphasized need to contact clinic for any signs of infection, uncontrollable bleeding, or complications. Dressing type: bandage Additional details: Photo taken Amount of lidocaine used: 1 cc Specimen A - Dermatopathology exam Differential Diagnosis: BCC Check Margins: No Size of lesion: 1.2 x 0.8 cm Right Upper Back [place] scaly plaque - Lesion biopsy Type of biopsy: tangential Informed consent: discussed and consent obtained Informed consent comment: The risks and benefits of the biopsy were discussed. Risks include but are not limited to bleeding, infection, scarring, pain, and nerve damage.Verbal consent was obtained. Procedure prep: Patient was prepped and draped in usual sterile fashion Prep type: Isopropyl alcohol Anesthesia: the lesion was anesthetized in a standard fashion Anesthetic: 1% lidocaine w/ epinephrine 1-100,000 buffered w/ 8.4% NaHCO3 Instrument used: DermaBlade Hemostasis achieved with: aluminum chloride Outcome: patient tolerated procedure well Outcome comment: The specimen was placed in a prelabeled formalin container to be sent for pathology Post-procedure details: sterile dressing applied and wound care instructions given Post-procedure details comment: Emphasized need to contact clinic for any signs of infection, uncontrollable bleeding, or complications. Dressing type: bandage Additional details: Photo taken Amount of lidocaine used: 1 cc Specimen B - Dermatopathology exam Differential Diagnosis: SCC vs BCC vs ISK Check Margins: No Size of lesion: 2.5 x 2.5 cm Biopsy today, see procedure note. 5. ACTINIC KERATOSIS Head - Anterior (Face) Erythematous scaly papules Patient was counseled regarding these sun-induced growths that can develop into squamous cell carcinoma if left untreated. Discussed treatment options, including cryotherapy and topical preparations.It was emphasized that any treated lesions that fail to resolve should be re-evaluated Recommend patient treat face bid x 14 days. Educated on Efudex treatment. Discussed that treated areas will become red, crusty, and inflamed. If areas become too uncomfortable, patient may use OTC hydrocortisone cream to help decrease irritation and stop treatment early. Sun exposure should be avoided during treatment. Patient instructed to contact office for any questions. Lesions that fail to resolve once treated area is healed should be re-evaluated in the office. This Visit - fluorouracil (Efudex) 5 % cream - Apply to directed areas on the face, and backs of hands twice aday x 14 days. Dispense 30 day supply but only use for 14 days Next Visit: 6 months documented in this encounter Plan of Treatment DateTypeDepartmentCare Team (Latest Contact Info)Dzxrefzzmui55/29/2025 9:30 AM ESTOffice Visit [facility] [address] [facility] [address] [place] [address] 11/07/2025 8:50 AM EDTOffice Visit [facility] [address] [place] [address] Charleen Hensley MD [address] [facility] [address] [place] [address] NameTypePriorityAssociated DiagnosesOrder ScheduleDermatopathology examPathology and CytologyTimed Neoplasm of unspecified behavior of bone, soft tissue, and skin Release Upon Ordering for 1 Occurrences starting 05/09/2025documented as of this encounter Procedures Procedure NamePriorityDate/TimeAssociated DiagnosisCommentsSKIN / NAIL BIOPSY Skhetcd3705/09/2025 8:38 AM EST Neoplasm of unspecified behavior of bone, soft tissue, and skin SKIN / NAIL VFVZVZVkrwkej11/17/2025 8:35 AM EST Neoplasm of unspecified behavior of bone, soft tissue, and skin documented in this encounter Results * Lesion biopsy (05/09/2025 8:38 AM EST) Narrative Rylee Hein LPN - 05/09/2025 8:38 AM EST Type of biopsy: tangential Informed consent: discussed and consent obtained ?? Informed consent comment: ??The risks and benefits of the biopsy were discussed. Risks include but are not limited to bleeding, infection, scarring, pain, and nerve damage.Verbal consent was obtained. Procedure prep: ??Patient was prepped and draped in usual sterile fashion Prep type: ??Isopropyl alcohol Anesthesia: the lesion was anesthetized in a standard fashion ?? Anesthetic: ??1% lidocaine w/ epinephrine 1-100,000 buffered w/ 8.4% NaHCO3 Instrument used: DermaBlade ?? Hemostasis achieved with: aluminum chloride ?? Outcome: patient tolerated procedure well ?? Outcome comment: ??The specimen was placed in a prelabeled formalin container to be sent for pathology Post-procedure details: sterile dressing applied and wound care instructions given ?? Post-procedure details comment: ??Emphasized need to contact clinic for any signs of infection, uncontrollable bleeding, or complications. Dressing type: bandage ?? Additional details: ??Photo taken Amount of lidocaine used: 1 cc Authorizing ProviderResult TypeResult StatusEmily A Petchip MDDBANNER REHABILITATION [facility] PROCEDURE ORDERABLESFinal Result * Lesion biopsy (05/09/2025 8:35 AM EST) Rylee Cordon LPN - 05/09/2025 8:35 AM EST Type of biopsy: tangential Informed consent: discussed and consent obtained ?? Informed consent comment: ??The risks and benefits of the biopsy were discussed. Risks include but are not limited to bleeding, infection, scarring, pain, and nerve damage.Verbal consent was obtained. Procedure prep: ??Patient was prepped and draped in usual sterile fashion Prep type: ??Isopropyl alcohol Anesthesia: the lesion was anesthetized in a standard fashion ?? Anesthetic: ??1% lidocaine w/ epinephrine 1-100,000 buffered w/ 8.4% NaHCO3 Instrument used: DermaBlade ?? Hemostasis achieved with: aluminum chloride ?? Outcome: patient tolerated procedure well ?? Outcome comment: ??The specimen was placed in a prelabeled formalin container to be sent for pathology Post-procedure details: sterile dressing applied and wound care instructions given ?? Post-procedure details comment: ??Emphasized need to contact clinic for any signs of infection, uncontrollable bleeding, or complications. Dressing type: bandage ?? 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 Stage 3a chronic kidney disease (CMS-HCC) Essential hypertension Unspecified essential hypertension Pure hypercholesterolemia Exocrine pancreatic insufficiency (HCC) Other specified disease of pancreas Moderate major depression (HCC) Major depressive disorder, single episode, moderate PAF (paroxysmal atrial fibrillation) (HCC) Atrial fibrillation Prostate cancer metastatic to bone (HCC) Anemia, unspecified type documented in this encounter Care Teams Team MemberRelationshipSpecialtyStart DateEnd Date Nirav Duenas DO [address] [place] [address] PCP - [employer]05/24/20 Pierre Murdock MD [address] [place] [address] PCP - GeneralInternal Medicine01/01/25 Marianen Davis MD [address] [facility] [address] [place] [address] Referring QfyugxffpCmtluhnabc83/20/23documented as of this encounter
--- OUTSIDE RECORDS SUMMARY | 2025-05-16 07:44 | XMS_ITS | Encounter Summary ---
Author Organization [facility] Address [address] [place] [address] Care Team Providers Care Surgical Lead Name Role Phone Nirav Duenas DO Unavailable [phone] Marianne Davis MD Unavailable [phone] Pierre Murdock MD Primary Care Provider [phone] Encounter Details DateTypeDepartmentCare Team (Latest Contact Info)Ptztpovatfn20/17/2025amboo flowsheet [facility] [address] [facility] [address] [place] [address] Charleen Hensley MD [address] [facility] [address] [place] [address] Social History Tobacco UseTypesPacks/DayYears UsedDateSmoking Tobacco: FormerCigarettes0.33 [...] on one occasion?Never01/11/2024HQ-2 AnswerDate RecordedPatient Health Questionnaire-2 [id number] and Gender InformationValueDate RecordedSex Assigned at BirthNot on fileLegal SexMale 08/05/2022 7:06 PM EDTGender IdentityNot on fileSexual OrientationNot on file documented as of this encounter Plan of Treatment DateTypeDepartmentCare Team (Latest Contact Info)Tzdvdauuaxz74/29/2025 9:30 AM ESTOffice Visit [facility] [place] [facility] [address] [place] [address] 11/07/2025 8:50 AM EDTOffice Visit [facility] [place] [facility] [address] [place] [address] Charleen Hensley MD [address] [place] [address] documented as of this encounter Visit Diagnoses Not on filedocumented in this encounter Care Teams Team MemberRelationshipSpecialtyStart DateEnd Date Nirav Duenas DO [address] [place] [address] PCP - [employer]05/24/20 Pierre Murdock MD [address] [place] [address] PCP - GeneralInternal Medicine01/01/25 Marianne Davis MD 3 [facility] [address] [place] [address] Referring ZthzvczpsFeymgzgldv33/20/23documented as of this encounter
--- OUTSIDE RECORDS SUMMARY | 2025-05-16 07:44 | XMS_ITS | Clinical Summary ---
Author Organization [facility] Address [address] [place] [address] Care Team Providers Care Business Services Coordinator Name Role Phone Unavailable Primary Care Provider Unavailabl e Social History Tobacco UseTypesPacks/DayYears UsedDateSmoking Tobacco: Never AssessedSex and Gender InformationValueDate RecordedSex Assigned at BirthNot on fileLegal Sex Male06/06/2013 9:46 AM ESTGender IdentityNot on fileSexual OrientationNot on file Plan of Treatment Health MaintenanceDue DateLast DoneCommentsAnxiety Wumtqapoj32/21/1957Depression Ecshtluig85/21/1957DTaP,Tdap,Td Vaccine (1 - Tdap)1957Diabetes Screening 1983Pneumococcal Vaccine: 50+ (1 of 1 - PCV)1988Shingrix Vaccine (1 of 2)1988RSV Vaccine (1 - 1-dose 75+ series)2013dvance Directive Aubyexbfbs95/01/2025ovid-19 Vaccine (1 - 2024-26 season)2025Influenza Vaccine (#1)2025 Insurance
--- OUTSIDE RECORDS SUMMARY | 2025-05-16 07:44 | XMS_ITS | Encounter Summary ---
Author Organization [facility] Address [address] [place] [address] Care Team Providers Care Rn Stars Name Role Phone Nirav Duenas DO Unavailable [phone] Marianne Davis MD Unavailable Pierre Murdock MD Primary Care Provider [phone] Encounter Details DateTypeDepartmentCare Team (Latest Contact Info)Kfgtijxxqbe62/17/2025Travel Social History Tobacco UseTypesPacks/DayYears UsedDateSmoking Tobacco: FormerCigarettes0.33 [...] on one occasion?Never01/11/2024HQ-2 AnswerDate RecordedPatient Health Questionnaire-2 [id number] and Gender InformationValueDate RecordedSex Assigned at BirthNot on fileLegal SexMale 08/05/2022 7:06 PM EDTGender IdentityNot on fileSexual OrientationNot on file documented as of this encounter Plan of Treatment DateTypeDepartmentCare Team (Latest Contact Info)Zwzkymqwqml57/29/2025 9:30 AM ESTOffice Visit [facility] [address] [place] [address] 11/07/2025 8:50 AM EDTOffice Visit [facility] [address] [place] [address] Charleen Hensley MD [address] [place] [address] documented as of this encounter Visit Diagnoses Not on filedocumented in this encounter Care Teams Team MemberRelationshipSpecialtyStart DateEnd Date Nirav Duenas DO [address] [place] [address] PCP - [employer]05/24/20 Pierre Murdock MD [address] [place] [address] PCP - GeneralInternal Medicine01/01/25 Marianne Davis MD [address] [facility] [address] [place] [address] Referring GywnftdniPuwxmnuhlt70/20/23documented as of this encounter
--- OUTSIDE RECORDS SUMMARY | 2025-05-16 07:44 | XMS_ITS | Clinical Summary ---
Author Organization [facility] Healthcare Address [address] [place] [address] Care Team Providers Care Engine Pilot Name Role Phone Nirav Duenas DO Unavailable [phone] Marianne Davis MD Unavailable [phone] Pierre Murdock MD Primary Care Provider [phone] Allergies Active AllergyReactionsCriticalityNoted DateCommentsSulfa AntibioticsHives 05/28/20231884OhfximuopbadwEyyubfd13/21/2023 Medications MedicationSigDispense QuantityRefillsLast FilledStart DateEnd DateStatus rivaroxaban [...] (abdominal pain or cramps) 120 tablet 5Active mirtazapine (Remeron) 15 MG tablet Indications:Current mild episode of major depressive disorder without prior episodeTAKE 1 TABLET AT BEDTIME 90 tablet 5Active Creon 32900-05883 units capsule Indications:Malignant neoplasm of prostate (HCC),Exocrine pancreatic insufficiency (HCC)TAKE 1 CAPSULE IN THE MORNING, 1 CAPSULE AT NOON AND 1 CAPSULE INTHE EVENING WITH MEALS 300 capsule 5Active fluorouracil (Efudex) 5 % cream Indications:Actinic keratosisApply to directed areas on the face, and backs of hands twice a day x 14 days. Dispense 30 day supply but only use for 14 days 40 g 5Active fluorouracil (Efudex) 5 % cream Indications:Actinic keratosisApply to directed areas on the face, and backs of hands twice a day x 14 days. Dispense 30 day supply but only use for 14 days 40 g Discontinued(Reorder) Active Problems ProblemNoted DateDiagnosed DateAllergic jojfoivcu04/18/2024Frequent PVCs 4PAF (paroxysmal atrial fibrillation)05/12/2023Exocrine pancreatic jabvqmjdealmq17/20/7247Nbvqheeorkqrbi93/13/2023Type 2 diabetes mellitus with diabetic nephropathy, without long-term current use of rwblsmf2411/03/2022asal cell carcinoma (BCC) of skin of left upper lip10/11/2022asal cell carcinoma of back10/11/2022asal cell carcinoma (BCC) of chin10/11/2022asal cell carcinoma of fvdsmonm29/21/2023asal cell carcinoma of left cheek10/11/2022CC (basal cell carcinoma), scalp/neck10/11/2022Stage 3a chronic kidney eprblbd1405/14/2021ardiac usbthubfgu68/08/2020Pure ncbqnyeqjliztwiqmddt27/15/5568Getovm02/14/2017Moderate major cvsumeuvyj42/14/2016Essential bhuqaryuibif45/10/2015Prostate cancer metastatic to bone05/02/2015IBS (irritable bowel syndrome)05/02/2015 Resolved Problems ProblemNoted DateDiagnosed DateResolved DateFat pad Medication course qbntiiv78enign hypertensive kidney disease with chronic kidney mmucahm05ody mass index (BMI) of 23.0 to 23.9 in adultEncounter to discuss test hgyazqe0405/01/2024 11/09/2024High risk medication useLong term current use of anticoagulant cmrdqey88Nonrheumatic mitral valve regurgitation Prostate cjimbb25Former xjyoms2207/13/2023 11/09/2024 Encounters DateTypeDepartmentCare QxdeNtxgpqmmkye88/17/2025 8:30 AM ESTOffice Visit [facility] [place] [facility] [address] [place] [address] Chalreen Hensley MD Seborrheic keratosis (Primary Dx); Lentigines; History of malignant neoplasm of skin; Neoplasm of unspecified behavior of bone, soft tissue, and skin; Actinic otlcbrpna62/17/2025amboo flowsheet [facility] [place] [facility] [address] [place] [address] Charleen Hensley MD 05/09/20254001Ynwnyb75/08/2025linisync Result Encounter [facility] External Department Unsolicited Provider, Generic External Data 04/27/2025Orders Only [facility] [place] [facility] [address] [place] [address] Sara Fields LPN Mixed hyperlipidemia; Type 2 diabetes mellitus with other specified complication, without long-term current use of insulin (HCC); Primary ibyhxfpmkaam71/13/2025Orders Only [facility] [address] [place] [address] Unallocated, Noms MD Marylin 03/30/2025 1:35 PM ESTOffice Visit [facility] [address] [place] [address] Allison Harris NP Acute bronchitis due to other specified organisms (Primary Dx); Cough, unspecified type; Pharyngitis, unspecified zrrlglpy27/07/2508Wvazuc32/31/2025Refill [facility] [address] [place] [address] Nirav Duenas DO Malignant neoplasm of prostate (HCC); Exocrine pancreatic insufficiency (HCC)03/14/2025linisync Result Encounter [facility] External Department Unsolicited Provider, Generic External Data from Last 3 Months Immunizations ImmunizationAdministration DatesNext DueInfluenza, High Dose Seasonal, Preservative Free03/12/2021,02/24/2020,03/01/2019,02/21/2019,02/25/2018, 03/16/2017,03/30/2016,03/22/2015Influenza, High-dose Seasonal, Quadrivalent, Preservative Free02/26/2021Influenza, Seasonal, Quadrivalent, Adjuvanted 03/20/2023,03/10/2022,03/15/2020Influenza, seasonal, intradermal, preservative free05/02/2015Influenza, trivalent, wuyumyxlzv17/02/2024Moderna SARS-CoV-2 Booster Cwywmvolfjs68/27/2021Novel lvhoktmuo-R1Z8-99, preservative-free 05/31/2009Pneumococcal Conjugate PCV 13005/24/2016,12/14/2013Pneumococcal Polysaccharide SAXG9178,07/23/2003Zoster, Fhnegqlljak02/19/2019, 12/22/2018Zoster, live10/10/2012 Family History Medical HistoryRelationNameCommentsHeart diseaseFatherWilliamHeart [...] on one occasion?Never01/11/2024HQ-2 AnswerDate RecordedPatient Health Questionnaire-2 Rilib343Sex and Gender InformationValueDate RecordedSex Assigned at BirthNot on fileLegal SexMale 08/05/2022 7:06 PM EDTGender IdentityNot on fileSexual OrientationNot on file Last Filed Vital Signs Vital SignReadingTime TakenCommentsBlood Npuafldn823/7611 1:41 PM EST Rxwld080403/30/2025 1:41 PM EDIWlsxxqpyerh27.4 ??C (97.6 ??F)03/30/2025 1:41 PM ESTRespiratory Zqki546208/04/2024 10:06 AM EDTOxygen Tgifdsaive28%03/30/2025 1:41 PM ESTInhaled Oxygen Concentration--Xbbbsr20.8 kg (165 lb)03/30/2025 1:41 PM EST Rpqgjh574.3 cm (5' 9 )11/27/2024 10:09 AM EDTBody Mass Index24.37011/27/2024 10:09 AM EDT Plan of Treatment DateTypeDepartmentCare Team (Latest Contact Info)Khrpjpudfmi81/29/2025 9:30 AM ESTOffice Visit [facility] [address] [place] [address] 11/07/2025 8:50 AM EDTOffice Visit [facility] [address] [place] [phone] Charleen Hensley MD [address] [place] [address] Health MaintenanceDue DateLast DoneCommentsCT Kaqvtylkkzgi90/21/1939FIT-DNA 1938FIT1938FOBT1938 0385Ebgcakpfsxoft36/21/1939Diabetes: Hemoglobin A1C/, 05/10/2024, 11/05/2022, Additional history exists Diabetes: Urine Protein Jbsvpkskd08/09/461726/01/2025, 11/05/2021, 11/07/2020 Medicare Annual Wellness (AWV)606/, 11/14/2024Diabetes: Retinopathy Kzcdovtpc89/04/2025, 03/16/2024, 12/11/2021, Additional history paajikPmpvynaoxeg14/03/203308/07/2022, 12/16/2015, 11/28/2015Colorectal Cancer Entreerri82/03/2033neumococcal Vaccine: 65+ NqkphGagupysxp27/01/2017, 12/14/2013, 05/24/2012, Additional history existsInfluenza VaccineCompleted 02/12/2025, 03/25/2024, 03/20/2023, Additional history exists Procedures Procedure NamePriorityDate/TimeAssociated DiagnosisCommentsSKIN / NAIL BIOPSY Hziqmzj8105/09/2025 8:38 AM EST Neoplasm of unspecified behavior of bone, soft tissue, and skin SKIN / NAIL SNHCMINrkzgoh93/17/2025 8:35 AM EST Neoplasm of unspecified behavior of bone, soft tissue, and skin ALL MISCELLANEOUS UHVNHkgydtg55/08/2025 7:34 AM EST CCF CMP (CMP) (FOR REMOTE [facility] USE)Xbhqjei1504/30/2025 7:34 AM EST MHPT PSA, OWBJWEVDJCBzebsio66/08/2025 7:34 AM EST ALL CBC WITH AUTO CGBWVsrvbwj62/08/2025 7:34 AM EST DIABETIC RETINOPATHY SCREENING - OU - BOTH GRYZMgayjlk85/12/2025 9:31 AM EST STREP DNA QZPAWTlmxoaw12/07/2025 1:50 PM EST Pharyngitis, unspecified etiology STATUS COVID-19/AZNPhxhwhi62/07/2025 1:50 PM EST Cough, unspecified type ALL CBC WITH AUTO PPCAMfsuifq43/22/2025 2:51 PM EDT POCT GLYCOSYLATED HEMOGLOBIN (HGB A1C)Gfekamc4311/14/2024 9:42 AM EDT Type 2 diabetes mellitus with other specified complication, without long-term current use of insulin (HCC) GATZBIPPIZTZmpefnn40/03/2023 1:49 PM EDTMICROALBUMIN CREATININE RATIO, URoutine 11/05/2021 from Last 3 Months or Most Recently Relevant to Health Maintenance Results * Lesion biopsy (05/09/2025 8:38 AM [...] StatusEmily A Petitti MDDERM PROCEDURE ORDERABLESFinal Result * Lesion biopsy (05/09/2025 8:35 AM EST) Narrative Rylee Hein LPN - 05/09/2025 8:35 AM EST Type [...] StatusEmily A Petitti MDDERM PROCEDURE ORDERABLESFinal Result * (ABNORMAL) MHPT PSA, DIAGNOSTIC (04/30/2025 7:34 AM EST)ComponentValueRef RangeTest MethodAnalysis TimePerformed AtPathologist SignaturePROSTATE SPECIFIC ANTIGEN DX6.13(H)<=4.00 ng/mLTBHSpecimen (Source)Anatomical Location / LateralityCollection Method / VolumeCollection TimeReceived Time04/30/2025 7:34 AM EST04/30/2025 7:46 AM EST Narrative CLINISYNC - 04/30/2025 10:08 AM EST Authorizing ProviderResult TypeResult StatusGeneric External Data Provider CLINISYNCFinal ResultPerforming OrganizationAddressCity/State/ZIP CodePhone Number CLINISYNC [facility] * (ABNORMAL) CCF CMP (CMP) (FOR REMOTE [facility] USE) (04/30/2025 7:34 AM EST) ComponentValueRef RangeTest MethodAnalysis TimePerformed AtPathologist RkegywqpaKYDJFX344006 - 145 mmol/LTBHPOTASSIUM3.73.5 - 5.1 mmol/LTBHCHLORIDE 109(H)98 - 107 mmol/LTBHCARBON IVSXQEX60.121.0 - 32.0 mmol/LTBHANION GAP8.6TBH GJGABSS393(H)74 - 106 mg/dLTBHBLOOD UREA SJKXIMIH99.0(H)7.0 - 18.0 mg/dLTBH CREATININE1.070.70 - 1.30 mg/dLTBHTBH EGFR-AF BULGARIAN>60>=60 mL/min/1.73m 2 TBHTBH EGFR-NON AF BULGARIAN>60>=60 mL/min/1.73m 2TBHBUN CREATININE RATIO20.6 TBHCALCIUM8.78.5 - 10.1 mg/dLTBHBILIRUBIN TOTAL0.30.2 - 1.0 mg/dLTBHASPARTATE AMINO VXQJCJUXDQD7115 - 37 U/LTBHALANINE BPGOKLAKKTLUHKJV1264 - 63 U/LTBH ALKALINE UIUVFAJRWAT8916 - 116 U/LTBHTOTAL PROTEIN6.76.4 - 8.2 g/dLTBHALBUMIN LEVEL3.2(L)3.4 - 5.0 g/dLTBHGLOBULIN3.5g/dLTBHALBUMIN GLOBULIN RATIO0.9TBH Specimen (Source)Anatomical Location / LateralityCollection Method / Volume Collection TimeReceived Time04/30/2025 7:34 AM EST04/30/2025 7:46 AM EST Narrative CLIN[facility]YNC - 04/30/2025 10:34 AM EST Authorizing ProviderResult TypeResult StatusGeneric External Data Provider CLINISYNCFinal ResultPerforming OrganizationAddressCity/State/ZIP CodePhone Number [facility]IN[facility] * ALL MISCELLANEOUS TEST (04/30/2025 7:34 AM EST)ComponentValueRef RangeTest MethodAnalysis TimePerformed AtPathologist SignatureMISCELLANEOUS TESTCOMMENT. TBHComment: Test Ordered: [id number] LD Isoenzymes LDH ?202 ?IU/L ? CB ?? Reference Range: 121-224 (LD) Fraction 1 ?21 ? % ?BN ?? Reference Range: 17-32 (LD) Fraction 2 ?32 ? % ?BN ?? Reference Range: 25-40 (LD) Fraction 3 ?26 ? % ?BN ?? Reference Range: 17-27 (LD) Fraction 4 ?11 ? % ?BN ?? Reference Range: 5-13 (LD) Fraction 5 ?10 ? % ?BN ?? Reference Range: 4-20 Performed at: ??CB - [facility] [address] [facility], [place], [place] ??[id number] Coin 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: Miguel Cullen PhD, Phone: ??[phone] Performed at: ??BN - [facility] [address] ??[id number] Coin 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: Altagracia Sinclair MD, Phone: ??[phone] Specimen (Source)Anatomical Location / LateralityCollection Method / Volume Collection TimeReceived Time04/30/2025 7:34 AM EST04/30/2025 7:46 AM EST Narrative CLINISYNC - 05/04/2025 4:07 AM EST [id number] Lactate Dehydrogenase (LD) Isoenzymes Authorizing ProviderResult TypeResult StatusGeneric External Data Provider CLINISYNCFinal ResultPerforming OrganizationAddressCity/State/ZIP CodePhone Number CLINISYNC [facility] * (ABNORMAL) ALL CBC WITH AUTO DIFF (04/30/2025 7:34 AM EST) Only the most recent of2 resultswithin the time period is included. ComponentValueRef RangeTest MethodAnalysis TimePerformed AtPathologist Signature TB[facility] WBC7.34.0 - 11.0 10 3/uLTBHTBH RBC3.92(L)4.70 - 6.10 10 6/uLTBHTBH HGB12.1 (L)14.0 - 18.0 g/dLTBHTBH HCT36.7(L)42.0 - 54.0 %TBHTBH MCV93.680.0 - 94.0 fLTBH TBH MCH30.925.9 - 34.0 pgTBHTBH MCHC33.029.9 - 35.2 g/dLTBHTBH RDW13.311.0 - 15.0 %TBHTBH FWP676856 - 450 10 3/uLTBHTBH MPV10.09.5 - 13.5 fLTBHNEUTROPHILS PERCENT AUTO42.3(L)43.0 - 75.0 %TBHLYMPHOCYTES PERCENT AUTO26.620.5 - 60.0 %TBH MONOCYTES PERCENT AUTO6.61.7 - 12.0 %TBHTBH EO %22.5(H)0.9 - 7.0 %TBHBASOPHILS PERCENT AUTO1.20.2 - 2.0 %TBHIMMATURE GRANULOCYTES PCT AUTO0.8(H)0.0 - 0.5 %TBH NEUTROPHILS ABSOLUTE AUTO3.11.4 - 6.5 10 3/uLTBHLYMPHOCYTES ABSOLUTE AUTO1.91.2 - 3.8 10 3/uLTBHMONOCYTES ABSOLUTE AUTO0.50.3 - 0.8 10 3/uLTBHTBH EO #1.6(H)0.0 - 0.7 10 3/uLTBHBASOPHILS ABSOLUTE AUTO0.10.0 - 0.1 10 3/uLTBHIMMATURE GRANULOCYTES ABS AUTO0.06(H)0.00 - 0.03 10 3/uLTBHSpecimen (Source)Anatomical Location / LateralityCollection Method / VolumeCollection TimeReceived Time 04/30/2025 7:34 AM EST04/30/2025 7:46 AM EST Narrative CLINISYNC - 04/30/2025 7:59 AM EST Authorizing ProviderResult TypeResult StatusGeneric External Data Provider CLINISYNCFinal ResultPerforming OrganizationAddressCity/State/ZIP CodePhone Number [facility] * Diabetic Retinopathy Screening - OU - Both Eyes (04/04/2025 9:31 AM EST) Anatomical RegionLateralityModalityHeadOther Narrative Authorizing ProviderResult TypeResult StatusNoms Provider Unallocated MDOPHTH PHOTOGRAPHYFinal Result * STREP DNA PROBE (03/30/2025 1:50 PM EST)ComponentValueRef RangeTest Method Analysis TimePerformed AtPathologist SignatureRESULTnegativeNegativeSpecimen (Source)Anatomical Location / LateralityCollection Method / VolumeCollection TimeReceived RcwrZsygna51/07/2025 1:50 PM EST Narrative Authorizing ProviderResult TypeResult StatusAnthbala Bajwa DOPOINT OF CARE TEST ENTER/EDIT ORDERABLESFinal Result * STATUS COVID-19/FLU (03/30/2025 1:50 PM EST)ComponentValueRef RangeTest Method Analysis TimePerformed AtPathologist SignatureFLU AnegativeFLU BnegativeSARS COV 2 RNAnegativeSpecimen (Source)Anatomical Location / LateralityCollection Method / VolumeCollection TimeReceived JhkmFyvda66/07/2025 1:50 PM EST Narrative Authorizing ProviderResult TypeResult StatusAnthony Emily Tesyoseph DOPOINT OF CARE TEST ENTER/EDIT ORDERABLESFinal Result * POCT glycosylated hemoglobin (Hb A1C) docked device (11/14/2024 9:42 AM EDT) ComponentValueRef RangeTest MethodAnalysis TimePerformed AtPathologist SignatureHemoglobin A1C6.9Specimen (Source)Anatomical Location / Laterality Collection Method / VolumeCollection TimeReceived TimeBloodVenous blood specimen / Fuqheal3311/14/2024 9:42 AM EDT Narrative Authorizing ProviderResult TypeResult Michael Duenas DOPOINT OF CARE TEST ENTER/EDIT ORDERABLESFinal Result * Colonoscopy (12/24/2022 1:49 PM EDT)Anatomical RegionLateralityModality Endoscopy Narrative Authorizing ProviderResult TypeResult StatusUnknown Practice AENDOSCOPY PROCEDURE ORDERABLESFinal Result * MICROALBUMIN CREATININE RATIO, U (11/05/2021)ComponentValueRef RangeTest MethodAnalysis TimePerformed AtPathologist SignatureMALB<1.3<=30.0[facility]URINE LPINW330.0320.00 - 300.00[facility]TER[facility] LABMALB CR RATIO11.40.0 - 29.9[facility] EXTER[facility] LABMALB CR RATIO RANGESEE BELOWNOMS LEGACY EXTERNAL LABComment:NO MICROALBUMINURIA 0-29 MG/G CLINICAL MICROALBUMINURIA 30-300 MG/G MACROALBUMINURIA >300 MG/GPERFORMING LAB:see note [facility] EXTERNAL LABComment:[address] [facility] - [address] [place] [address] ,Ext. [phone] specimen (Source)Anatomical Location / LateralityCollection Method / VolumeCollection TimeReceived Time11/05/2021 Narrative Authorizing ProviderResult TypeResult Michael Duenas DOECW LABSFinal ResultPerforming OrganizationAddressCity/State/ZIP CodePhone Number [facility] from Last 3 Months or Most Recently Relevant to Health Maintenance Insurance Care Teams Team MemberRelationshipSpecialtyStart DateEnd Nirav Duenas DO [address] [place] [address] PCP - [employer]05/24/20 Pierre Murdock MD [address] [place] [address] PCP - GeneralInternal Medicine01/01/25 Marianne Davis MD [address] [place] [address] Referring GdmrnnisyLpcbptwoip60/20/23
--- OUTSIDE RECORDS SUMMARY | 2025-05-16 07:44 | XMS_ITS | Clinical Summary ---
Author Organization [facility] Address [address] [place] [address] Phone Care Team Providers Care Hogshead Dumper Name Role Phone Pierre Murdock MD Primary Care Provider [phone] Allergies Active AllergyReactionsCriticalityNoted DateCommentsSulfa (Sulfonamide Antibiotics)Hives05/28/20234474EpstpfnhngbVajvd89/22/2024 hypertension Medications MedicationSigDispense QuantityRefillsLast FilledStart DateEnd DateStatus [...] mg) by mouth once daily at bedtime.05/14/2021ctive fpapww-ghacetvo-wjeroxa (Creon) 24,000-76,000 -120,000 unit capsule Take 1 [...] Discontinued Active Problems ProblemNoted DateDiagnosed DateMedication course uavxgsp4810/02/2024MI 22.0-22.9, adult05/01/2024Encounter to discuss test hzukdqy8005/01/2024enign hypertensive kidney disease with chronic kidney disease stage V or end stage renal disease 05/01/2024VC (premature ventricular contraction)01/13/2024Long term current use of anticoagulant pdwoyfu2901/13/2024High risk medication use01/13/2024Stage 3a chronic kidney igmzxtq3801/13/2024rostate gbieda9801/13/2024Nonrheumatic mitral valve fpvpfvfyziwsh64/22/2024Former yhcmyx4107/13/2023rimary hypertension 05/28/2023iabetes zpvmsnar79/05/3500Gkmgfauasgilzo28/05/2024aroxysmal atrial mwrbmaqslide59/05/2024 Encounters DateTypeDepartmentCare DjftMcfxrsszakr33/26/2025[facility] [address] [place] [phone] Missy Khoury MD Primary hypertension; Mixed uqhddqxjoadgxo59/23/2025Refill at [facility] [address] [place] [phone] Missy Khoury MD Primary hypertensionfrom Last [...] InformationValueDate RecordedSex Assigned at BirthNot on fileLegal BsgRelw09/25/2022 9:56 PM ESTGender IdentityNot on fileSexual OrientationNot on file Last Filed Vital Signs Vital SignReadingTime TakenCommentsBlood Tfdgnvqe567/72001/09/2025 8:06 AM EDT Aumub5650/19/2025 7:53 AM EDTTemperature--Respiratory Rate--Oxygen Saturation-- Inhaled Oxygen Concentration--Hjzjdy10.9 kg (160 lb 12.8 oz)01/09/2025 7:53 AM CYAKhloff007.3 cm (5' 11 )01/09/2025 7:53 AM EDTBody Mass Index22.43001/09/2025 7:53 AM EDT Plan of Treatment DateTypeDepartmentCare Team (Latest Contact Info)Iaafnxyvqpw34/19/2026 10:00 AM ESTOffice Visit at [facility] [address] [place] [phone] Missy Khoury MD [address] [place] [address] [address] [place] [address] Health MaintenanceDue DateLast DoneCommentsDiabetes: Hemoglobin A1C1938 Diabetes: Urine Protein Xqlevzfxf94/21/1939Lipid Panel1938Medicare Annual Wellness Visit (AWV)1938Diabetes: Retinopathy Rnmgpaben09/21/1949 DTaP/Tdap/Td Vaccines (1 - Tdap)1960SV High Risk: (Elderly (60+) or Population) (1 - 1-dose 75+ series)2013COVID-19 Vaccine (2024- season)5105/25/2023, 04/28/2023, 04/03/2022, Additional history existsInfluenza Vaccine (#1)5105/25/2023, 03/20/2023, 03/10/2022, Additional history existsPneumococcal VpdbsvuHyaskakgr00/01/2017, 12/14/2013, 05/24/2012, Additional history existsZoster BhkqgbrvTdxpiemkl16/19/2019, 12/22/2018, 10/10/2012one Density DylxXanqijuhlnsw11/18/2024HIB VaccinesAged OutNo longer eligible based on patient's [...] Pierre Murdock MD [address] [facility] [address] [place] [address] PCP - GeneralInternal Medicine12/26/24
[2025-05-16 08:04] LABS: Hematocrit 37.1 % (42.0-54.0); Hemoglobin 11.8 g/dL (14.0-18.0); Immature Granulocytes Abs Auto 0.03 10^3/uL (0.00-0.03); Immature Granulocytes Pct Auto 0.5 % (0.0-0.5); Lymphocytes Absolute Auto 2.0 10^3/uL (1.2-3.8); Mean Corpuscular HGB Conc 31.8 g/dL (29.9-35.2); Mean Corpuscular Hemoglobin 29.6 pg (25.9-34.0); Mean Corpuscular Volume 93.2 fL (80.0-94.0); Platelet Count 207 10^3/uL (150-450); Red Blood Count 3.98 10^6/uL (4.70-6.10); White Blood Count 6.2 10^3/uL (4.0-11.0)
[2025-05-16 09:53] LABS: Alanine Aminotransferase 18 U/L (16-63); Albumin Globulin Ratio 0.9; Albumin Level 3.2 g/dL (3.4-5.0); Alkaline Phosphatase 70 U/L (46-116); Anion Gap 11.0; Aspartate Amino Transferase 14 U/L (15-37); Blood Urea Nitrogen 21.0 mg/dL (7.0-18.0); Calcium 8.8 mg/dL (8.5-10.1); Carbon Dioxide 29.4 mmol/L (21.0-32.0); Chloride 108 mmol/L (98-107); Estimated GFR (African America >60 (>=60 mL/min/1.73m^2); Estimated GFR (Non-African Ame 50 (>=60 mL/min/1.73m^2); Globulin 3.5 g/dL; Glucose 171 mg/dL (74-106); Potassium 4.4 mmol/L (3.5-5.1); Sodium 144 mmol/L (136-145); Total Protein 6.7 g/dL (6.4-8.2)
[2025-05-16 09:54] LABS: Cholesterol 146 mg/dL (<=200); HDL Cholesterol 65 mg/dL (40-60); Thyroid Stimulating Hormone 1.527 uIU/mL (0.358-3.740); Triglycerides 74 mg/dL (<=150); VLDL CHOLESTEROL 14.8 mg/dL
== END 2025-05-16 07:37 | disposition home or self-care (01) ==
LOC: LAB 07:41
PROVIDERS: PCP Internal Medicine; Visit Provider Internal Medicine
DX: E78.2 Mixed hyperlipidemia (principal); I10 Essential (primary) hypertension; E11.69 Type 2 diabetes mellitus with other specified complication
CPT/HCPCS: 36415; 80053; 80061; 83036; 84443; 85025